=== PATIENT | male | born 1970 | race Two or more races ===

== ENCOUNTER 2019-03-07 14:41 | Emergency (ER) | payer OTHER ==
[~2019-03-07] VITALS: Ht 170.2 cm; Wt 147.4 kg
[2019-03-07 14:56] VITALS: BP 156/90
--- NOTE | 2019-03-07 15:00 | NUR ---
ED Nurse Note: pt resting in room on monitor. states rt. arm pain without injury x 2 days. good cms distally. lungs cta. denies cp, n/v. pt uses O2 NC at home, doesnt state how many liters.
[2019-03-07] MEDS ORDERED: ASPIRIN81 MG ORAL (15:03)
[2019-03-07] MEDS ORDERED: ELIQUIS5 MG PO (15:03)
[2019-03-07] MEDS ORDERED: FUROSEMIDE80 M1 ORAL (15:03)
[2019-03-07] MEDS ORDERED: ATORVASTATIN CA40 MG ORAL (15:03)
[2019-03-07] MEDS ORDERED: CARVEDILOL25 MG ORAL (15:03)
[2019-03-07] MEDS ORDERED: GABAPENTIN300 MG ORAL (15:03)
[2019-03-07] MEDS ORDERED: AMLODIPINE BESY10 MG ORAL (15:03)
[2019-03-07] MEDS ORDERED: HYDRALAZINE HCL25 M1 ORAL (15:05)
[2019-03-07] MEDS ORDERED: PRILOSEC OTC20 MG ORAL (15:05)
[2019-03-07] MEDS ORDERED: POTASSIUM CHLO20 ME2 ORAL (15:05)
[2019-03-07] MEDS ORDERED: Methocarbamol 750mg tab ORAL ONE (15:15)
[2019-03-07] MEDS ORDERED: Ketorolac 30mg Inj IM ONE (15:15)
[2019-03-07] MEDS ORDERED: HYDROcodone/Acetamin 5/325 tab ORAL ONE (15:15)
[2019-03-07] MEDS ORDERED: ROBAXIN-750750 MG PO (15:43)
[2019-03-07] MEDS ORDERED: NORCO 5-325 TA1 EACH ORAL (15:43)
[2019-03-07] MEDS ORDERED: LIDODERM700 M1 TOPIC (15:43)
--- NOTE | 2019-03-07 16:14 | NUR ---
ED Nurse Note: pt awaiting further dispo. meds given for discomfort. tolerates O2 NC at 4L. md aware pt states left shoulder area pain and lidoderm patch applied to area. speaks full sentences easliy without dyspnea
--- NOTE | 2019-03-07 16:22 | NUR ---
ED Nurse Note: pt reeval by md. no new orders.
--- NOTE | 2019-03-07 16:45 | Emergency Room Report ---
History of Present Illness General Chief Complaint: General Complaint Source: Patient Present Illness HPI 48-year-old male presents ED for evaluation. Brought in by EMS from home complaining of lower back pain and left shoulder pain. Started a few days ago. Denies any fall or injury. States he has had this pain in the past. States his pain medications are not helping at this time. Pain is dull, 10 out of 10, nonradiating. Denies chest pain or shortness of breath. Is on home oxygen. History of CHF and COPD. States his symptoms are at baseline. No other aggravating relieving factors. Denies any other associated symptoms Allergies: Coded Allergies: No Known Allergies (Unverified , 03/07/19) Patient History Past Medical History: HTN, CHF, COPD Past Surgical History: none Pertinent Family History: none Social History: Denies: smoking, alcohol use, drug use Immunizations: UTD Reviewed Nursing Documentation: PMH: Agreed; PSxH: Agreed Nursing Documentation-PMH Hx Cardiac Problems: Yes Hx Hypertension: Yes Hx COPD: Yes Review of Systems All Other Systems: negative except mentioned in HPI Physical Exam Vital Signs Date Time Temp Pulse Resp B/P (MAP) Pulse Ox O2 Delivery O2 Flow Rate FiO2 03/07/19 14:42 99.0 72 16 150/90 (110) 92 Nasal Cannula 2.0 Sp02 EP Interpretation: reviewed, normal General Appearance: no apparent distress, alert, GCS 15, non-toxic, obese Head: normocephalic, atraumatic Eyes: bilateral eye normal inspection, bilateral eye PERRL ENT: hearing grossly normal, normal pharynx, no angioedema, normal voice Neck: full range of motion, supple/symm/no masses Respiratory: chest non-tender, lungs clear, normal breath sounds, speaking full sentences Cardiovascular #1: regular rate, rhythm, no edema Cardiovascular #2: 2+ carotid (R), 2+ carotid (L), 2+ radial (R), 2+ radial (L) , 2+ dorsalis pedis (R), 2+ dorsalis pedis (L) Gastrointestinal: normal bowel sounds, non tender, soft, non-distended, no guarding, no rebound Rectal: deferred Genitourinary: normal inspection, no CVA tenderness, no vertebral tenderness Musculoskeletal: gait/station normal, normal range of motion, tender - paraspinal lumbar tenderness Neurologic: alert, oriented x3, responsive, motor strength/tone normal, sensory intact, speech normal Psychiatric: judgement/insight normal, memory normal, mood/affect normal, no suicidal/homicidal ideation Reflexes: 3+ bicep (R), 3+ bicep (L), 3+ tricep (R), 3+ tricep (L), 3+ knee (R) , 3+ knee (L) Skin: no rash Lymphatic: no adenopathy Medical Decision Making Diagnostic Impression: Primary Impression: Lower back pain Qualified Codes: M54.5 - Low back pain; G89.29 - Other chronic pain ER Course Hospital Course 69-year-old male presents ED complaining of lower back pain. No evidence of trauma Differential diagnoses include: pyelonephritis, kidney stone, muscle strain, Lspine fracture Clinical course Patient placed on stretcher. After initial history, physical exam reveals obese male in no acute distress. there is no vertebral body tenderness. paraspinal lumbar tenderness. some shoulder pain but full ROM noted i ordered toradol, robaxin, lidoderm, norco in ED with pain improved patient is resting comfortably in ED on baseline oxygen with stable viatls. we will discharge to home with transport (patient requires O2). we will provide PMD referrals Diagnosis - lower back pain Stable and discharged to home with prescription for Motrin, Noroc, robaxin, lidoderm. Followup with PMD. Return to ED if symptoms recur or worsen Last Vital Signs Date Time Temp Pulse Resp B/P (MAP) Pulse Ox O2 Delivery O2 Flow Rate FiO2 03/07/19 15:00 73 22 Nasal Cannula 4.0 03/07/19 14:56 98.5 156/90 94 Status: improved Disposition: HOME, SELF-CARE Condition: Stable Scripts Lidocaine Patch* (Lidoderm Patch*) 1 Each Adh..patch 1 PATCH TOPIC DAILY, #7 PATCH 0 Refills Patch(es) may remain in place for up to 12 hours in any 24-hour period. Prov: Geraldo Penaloza MD 03/07/19 Methocarbamol* (ROBAXIN-750*) 750 Mg Tablet 750 MG PO TID, #21 TAB 0 Refills Prov: Geraldo Penaloza MD 03/07/19 Hydrocodone Bit/Acetaminophen 5-325* (NORCO 5-325*) 1 Each Tablet 1 TAB ORAL Q6H PRN for For Pain for 3 Days, #12 TAB 0 Refills Prov: Geraldo Penaloza MD 03/07/19 Referrals: [facility] Patient Instructions: Chronic Back Pain Geraldo Penaloza MD Mar 07, 2019 16:45
--- NOTE | 2019-03-07 17:09 | NUR ---
ED Nurse Note: pt sleeping with even resp. transport back home eta [id number]
--- NOTE | 2019-03-07 18:00 | NUR ---
ED Nurse Note: pt aware of plan to dc home with transportation eta [id number]. pt discussing plan with md and states he doesnt want to be dc home. explanations given by md and plan is unchanged. charge entry radha aware.
[2019-03-07 19:00] VITALS: BP 133/90
[2019-03-07] MEDS ORDERED: Furosemide 40mg tab ORAL ONE (19:15)
[2019-03-07 19:30] VITALS: BP 133/90
--- NOTE | 2019-03-07 19:30 | NUR ---
ER DISCHARGE NOTE: Patient is cleared to be discharged per ERMD, pt is aox4, on room air, with stable vital signs. pt was given dc and prescription instructions, pt was able to verbalize understanding, pt id band and iv site removed without complications. REPORT GIVEN TO [facility]. BELONGIGNS LEFT WITH PATIENT.
== END 2019-03-07 19:30 | disposition home or self-care (01) ==
LOC: EDBD 14:41 → EMR 15:00
DX: M54.5 Low back pain (principal); G89.29 Other chronic pain; J44.9 Chronic obstructive pulmonary disease, unspecified; I11.0 Hypertensive heart disease with heart failure; I50.9 Heart failure, unspecified; Z99.81 Dependence on supplemental oxygen
CPT/HCPCS: 96372; J1885; Z7502; 99283

== ENCOUNTER 2019-04-05 18:58 | Inpatient (IN) | payer OTHER ==
[~2019-04-05] VITALS: Ht 177.8 cm; Wt 186.4 kg
[~2019-04-05 18:58] MED LIST: AMLODIPINE BESY10 MG ORAL; ASPIRIN81 MG ORAL; ATORVASTATIN CA40 MG ORAL; CARVEDILOL25 MG ORAL; ELIQUIS5 MG PO; FUROSEMIDE80 M1 ORAL; GABAPENTIN300 MG ORAL; HYDRALAZINE HCL25 M1 ORAL; LIDODERM700 M1 TOPIC; NORCO 5-325 TA1 EACH ORAL; POTASSIUM CHLO20 ME2 ORAL; PRILOSEC OTC20 MG ORAL; ROBAXIN-750750 MG PO
--- NOTE | 2019-04-05 19:00 | NUR ---
ED Nurse Note: walk-in patient with complaints of body aches x three days. Patient currently placed on building mover, vital signs stable although systolic is elevated. Will inform CLAUDIA.
[2019-04-05 19:02] VITALS: BP 191/103
--- NOTE | 2019-04-05 19:12 | Emergency Room Report ---
History of Present Illness General Chief Complaint: Flu Like Symptoms Source: EMS Present Illness HPI Disclaimer: Please note that this report is being documented using [employer] technology. This can lead to erroneous entry secondary to incorrect interpretation by the dictating instrument. HPI: 48-year-old male history of obesity and CHF presents for evaluation of chest pain, shortness of breath, sore throat and ear pain. Symptoms began 3 to 4 days ago. He notes bilateral ear fullness and decreased hearing without effusion. He reports subjective fevers and chills as well as a sore throat and chest discomfort. He reports some pressure over the chest and some difficulty breathing. Denies cough or sputum production. Denies vomiting or diarrhea. Did not receive a flu shot this year. Denies lower extremity edema. Has been compliant with his medications otherwise. PMH: Obesity, CHF PSH: Reviewed Allergies: Denies Social Hx: Non-smoker Allergies: Coded Allergies: RIVAROXABAN (Verified Allergy, Unknown, 04/05/19) Nursing Documentation-PMH Past Medical History: No History, Except For Hx Hypertension: Yes Hx COPD: Yes Hx Diabetes: Yes Review of Systems All Other Systems: negative except mentioned in HPI Physical Exam Vital Signs Date Time Temp Pulse Resp B/P (MAP) Pulse Ox O2 Delivery O2 Flow Rate FiO2 04/05/19 18:55 98.8 96 16 191/103 (132) 96 Room Air General: Awake and alert, no acute distress HEENT: NC/AT. EOMI. tympanic membranes are deeply erythematous though nonbulging , no effusion. External canals show no effusion or edema. Pharynx is erythematous, uvula midline, no exudates Cardiovascular: RRR. S1 and S2 normal. No murmur appreciated Resp: Normal work of breathing. No cough, wheezing or crackles appreciated Abdomen: Abdomen is soft, nondistended. Nontender Skin: Intact. No abrasions, laceration or rash over the exposed skin MSK: Normal tone and bulk. Moving all extremities. No obvious deformity. Neuro: Awake and alert. Mentating appropriately. Medical Decision Making Diagnostic Impression: Primary Impression: Hypokalemia Additional Impression: CHF (congestive heart failure) ER Course 48-year-old male with history of obesity and CHF presents for evaluation of 4 days URI symptoms and some shortness of breath with chest pain. Differential includes was not limited to otitis media, pharyngitis, viral syndrome, influenza , Laboratory Tests Test 04/05/19 19:10 White Blood Count 10.6 K/UL (4.8-10.8) Red Blood Count 5.30 M/UL (4.70-6.10) Hemoglobin 13.4 G/DL (14.2-18.0) L Hematocrit 41.2 % (42.0-52.0) L Mean Corpuscular Volume 78 FL (80-99) L Mean Corpuscular Hemoglobin 25.4 PG (27.0-31.0) L Mean Corpuscular Hemoglobin Concent 32.7 G/DL (32.0-36.0) Red Cell Distribution Width 13.6 % (11.6-14.8) Platelet Count 237 K/UL (150-450) Mean Platelet Volume 8.3 FL (6.5-10.1) Neutrophils (%) (Auto) 72.0 % (45.0-75.0) Lymphocytes (%) (Auto) 18.3 % (20.0-45.0) L Monocytes (%) (Auto) 5.7 % (1.0-10.0) Eosinophils (%) (Auto) 2.7 % (0.0-3.0) Basophils (%) (Auto) 1.3 % (0.0-2.0) Sodium Level 147 MMOL/L (136-145) H Potassium Level 2.9 MMOL/L (3.5-5.1) L Chloride Level 104 MMOL/L (98-107) Carbon Dioxide Level 40 MMOL/L (21-32) H Anion Gap 3 mmol/L (5-15) L Blood Urea Nitrogen 9 mg/dL (7-18) Creatinine 1.1 MG/DL (0.55-1.30) Estimate Glomerular Filtration Rate > 60 mL/min (>60) Glucose Level 102 MG/DL (74-106) Calcium Level 8.6 MG/DL (8.5-10.1) Total Bilirubin 0.8 MG/DL (0.2-1.0) Aspartate Amino Transferase (AST) 16 U/L (15-37) Alanine Aminotransferase (ALT) 17 U/L (12-78) Alkaline Phosphatase 74 U/L (46-116) Troponin I 0.021 ng/mL (0.000-0.056) Pro-B-Type Natriuretic Peptide 932 pg/mL (0-125) H Total Protein 7.0 G/DL (6.4-8.2) Albumin 3.6 G/DL (3.4-5.0) Globulin 3.4 g/dL Albumin/Globulin Ratio 1.1 (1.0-2.7) EKG Diagnostic Results EKG Time: 19:44 Rate: normal Rhythm: NSR ST Segments: no acute changes Other Impression Sinus rhythm with PACs. No ST segment changes. Normal intervals Rhythm Strip Diag. Results Rhythm Strip Time: 19:44 EP Interpretation: yes Rate: 90s Rhythm: other - This rhythm with PACs Chest X-Ray Diagnostic Results Chest X-Ray Diagnostic Results : Chest X-Ray Ordered: Yes # of Views/Limited/Complete: 1 View Indication: Shortness of Breath Interpretation: no consolidation, other - Bilateral pulmonary congestion, questionable effusions. No obvious consolidation. Impression: Other - Pulmonary congestion Electronically Signed by: Electronically signed by Dr. Manuel Daniels Reevaluation Time: 21:38 Last Vital Signs Date Time Temp Pulse Resp B/P (MAP) Pulse Ox O2 Delivery O2 Flow Rate FiO2 04/05/19 18:55 98.8 96 16 191/103 (132) 96 Room Air Reevaluation Impression Labs show normal white count without shift. Potassium was low at 2.9, troponin within normal limits. Potassium repletion both IV and oral are ordered. Peptide elevated at 932. No obvious infiltrate on chest x-ray. Flu swabs are still pending. The patient remained tachypneic with increased work of breathing. He has been intermittently tachycardic in the emergency department. He will require admission for further monitoring of his breathing status. He remains on nasal cannula. Stable for transfer to telemetry floor Disposition: ADMITTED INPATIENT Condition: Serious Manuel Daniels MD Apr 05, 2019 19:12
[2019-04-05 19:26] LABS: BASOPHILS % (AUTO) 1.3 % (0.0-2.0); EOSINOPHILS % (AUTO) 2.7 % (0.0-3.0); HEMATOCRIT 41.2 % (42.0-52.0); HEMOGLOBIN 13.4 G/DL (14.2-18.0); LYMPHOCYTES % (AUTO) 18.3 % (20.0-45.0); MEAN CORPUSCULAR VOLUME 78 FL (80-99); MONOCYTES % (AUTO) 5.7 % (1.0-10.0); PLATELET COUNT 237 K/UL (150-450); RED CELL DISTRIBUTION WIDTH 13.6 % (11.6-14.8); WHITE BLOOD COUNT 10.6 K/UL (4.8-10.8)
[2019-04-05 19:47] VITALS: BP 170/95
[2019-04-05 19:56] LABS: ALANINE AMINOTRANSFERASE 17 U/L (12-78); ALBUMIN 3.6 G/DL (3.4-5.0); ALBUMIN/GLOBULIN RATIO 1.1 (1.0-2.7); ALKALINE PHOSPHATASE 74 U/L (46-116); ASPARTATE AMINO TRANSFERASE 16 U/L (15-37); BILIRUBIN,TOTAL 0.8 MG/DL (0.2-1.0); BLOOD UREA NITROGEN 9 mg/dL (7-18); CALCIUM 8.6 MG/DL (8.5-10.1); CARBON DIOXIDE 40 MMOL/L (21-32); CREATININE 1.1 MG/DL (0.55-1.30); SODIUM 147 MMOL/L (136-145)
[2019-04-05] MEDS ORDERED: Ketorolac 30mg Inj IV ONE (20:00)
[2019-04-05 20:11] LABS: ANION GAP 3 mmol/L (5-15); CHLORIDE 104 MMOL/L (98-107); POTASSIUM 2.9 MMOL/L (3.5-5.1)
--- NOTE | 2019-04-05 20:26 | NUR ---
ED Nurse Note: Patient brought in by ambulance.
[2019-04-05] MEDS ORDERED: HYDROcodone/Acetamin 5/325 tab ORAL ONE (20:45)
--- NOTE | 2019-04-05 20:59 | NUR ---
ED Nurse Note: Ptient request for juice accomodated after accucheck. will continue to monitor. BGS- 95
--- NOTE | 2019-04-05 23:40 | NUR ---
ED Nurse Note: Per patient request, sandwich provided. Room not ready for patient transport.
[2019-04-06] VITALS (7 sets, daily range): BP systolic 122–165; BP diastolic 79–103
--- NOTE | 2019-04-06 00:35 | NUR ---
NURSE NOTES: Pt received from KEESHA Hernadez alert and oriented x4 with no acute s/s of distress noted. IV site asymptomatic and patent on R ac 20g, saline lock. On 2L NC, saturating at 99% with no acute s/s of resp distress noted. Bed in lowest position, belongings and call light within reach. No wounds noted upon assessment. Belongings with patient upon administration.
--- NOTE | 2019-04-06 00:55 | NUR ---
NURSE NOTES: Pt c/o of 01/11 generalized body pain, left message with Dr. De Jesus. Currently awaiting call back.
[2019-04-06] MEDS: Albuterol/Ipratropium 3ml neb HHN SCH ×6 (00:56→21:16)
[2019-04-06] MEDS ORDERED: ASPIRIN81 MG ORAL (01:32)
[2019-04-06] MEDS ORDERED: HYDROcodone/Acetamin 5/325 tab ORAL PRN (01:45)
[2019-04-06] MEDS ORDERED: HYDROcodone/Acetamin 10/325 tab ORAL PRN (01:45)
[2019-04-06] MEDS ORDERED: HydrALAZINE 25mg tab ORAL PRN (02:15)
--- NOTE | 2019-04-06 02:21 | NUR ---
NURSE NOTES: Received orders from Dr. Wise: - Kdur 20 mEq PO daily - Potassium Chloride IV 20 meq IV now - continue: LAsix 80 mg PO daily, amlodipine 10 mg PO daily, atorvastatin 40 mg - Addendum: 04/06/19 at 0354 by Abner Wall RN - continue: Gabapentin 600 mg PO daily, aspirin 81 mg PO daily. - Pt verbalized that he remembers taking lisinopril and hydralazine but does not remember dosages. Endorsed to Dr. Wise who stated to start pt on lisinopril 10 mg Po daily and hydralazine 25 mg PO PRN q6h for sBP above 180 - 2decho - Zofran 4 gm IVP q4h for nausea and vomiting PRN - Doxycycline 100 mg BID PO - Solumedrol 40 mg IVP q8h - Bipap PRN, Titrate O2 between 90-96% - Duonebs q4h scheduled. Will carry out orders.
[2019-04-06] MEDS: Solu-MEDROL 40mg Inj IVP SCH ×3 (06:26→21:39)
[2019-04-06] MEDS ORDERED: Sodium Chloride for KCL Premix x 2hrs IV SCH (07:00)
--- NOTE | 2019-04-06 07:20 | NUR ---
NURSE NOTES: Report received from KEESHA Levine. Pt. AOx4. In 2L NC. Denies SOB. IV running potassium, site intact. Bed on lowest position, side rails upx2, brakes engaged. Call light within easy reach.
--- NOTE | 2019-04-06 07:20 | NUR ---
HAND-OFF: Report given to KEESHA Plascencia. Plan of care endorsed.
--- NOTE | 2019-04-06 08:02 | Pulmonology Progress Note ---
Assessment/Plan Assessment/Plan Pulmonary Consultation [facility] The patient is a 48-year-old man with history of obesity and Congestive Heart Failure, admitted with chest pain, shortness of breath, fevera and chills as well as sore throat and ear pain for 3 to 4 days ago. Denies cough or sputum production, vomiting or diarrhea, no Lower extremity swelling. Past Medical History: Obesity, Congestive Heart Failure, Chronic Obstructive Pulmonary Disease, Diabetes, Hypertension Allergies: RIVAROXABAN All Other Systems: negative except mentioned in HPI Physical Exam Vital Signs Noted Date Time Temp Pulse Resp B/P (MAP) Pulse Ox O2 Delivery O2 Flow Rate FiO2 04/05/19 18:55 98.8 96 16 191/103 (132) 96 Room Air General: Awake and alert, no acute distress HEENT: NC/AT. EOMI. tympanic membranes are erythematous, Pharynx is erythematous , no exudates, moist mm Cardiovascular: RRR. S1 and S2 normal. No murmur appreciated. Mild edema noted Resp: Normal work of breathing. Mild Wheeze. Abdomen: Abdomen is soft, nondistended. Nontender Skin: Intact. No abrasions, laceration or rash over the exposed skin Extremities: Normal tone and bulk. Moving all extremities. No obvious deformity. Neuro: Awake and alert. Mentating appropriately. 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 Laboratory Tests Test 04/05/19 19:10 White Blood Count 10.6 K/UL (4.8-10.8) Red Blood Count 5.30 M/UL (4.70-6.10) Hemoglobin 13.4 G/DL (14.2-18.0) L Hematocrit 41.2 % (42.0-52.0) L Mean Corpuscular Volume 78 FL (80-99) L Mean Corpuscular Hemoglobin 25.4 PG (27.0-31.0) L Mean Corpuscular Hemoglobin Concent 32.7 G/DL (32.0-36.0) Red Cell Distribution Width 13.6 % (11.6-14.8) Platelet Count 237 K/UL (150-450) Mean Platelet Volume 8.3 FL (6.5-10.1) Neutrophils (%) (Auto) 72.0 % (45.0-75.0) Lymphocytes (%) (Auto) 18.3 % (20.0-45.0) L Monocytes (%) (Auto) 5.7 % (1.0-10.0) Eosinophils (%) (Auto) 2.7 % (0.0-3.0) Basophils (%) (Auto) 1.3 % (0.0-2.0) Sodium Level 147 MMOL/L (136-145) H Potassium Level 2.9 MMOL/L (3.5-5.1) L Chloride Level 104 MMOL/L (98-107) Carbon Dioxide Level 40 MMOL/L (21-32) H Anion Gap 3 mmol/L (5-15) L Blood Urea Nitrogen 9 mg/dL (7-18) Creatinine 1.1 MG/DL (0.55-1.30) Estimate Glomerular Filtration Rate > 60 mL/min (>60) Glucose Level 102 MG/DL (74-106) Calcium Level 8.6 MG/DL (8.5-10.1) Total Bilirubin 0.8 MG/DL (0.2-1.0) Aspartate Amino Transferase (AST) 16 U/L (15-37) Alanine Aminotransferase (ALT) 17 U/L (12-78) Alkaline Phosphatase 74 U/L (46-116) Troponin I 0.021 ng/mL (0.000-0.056) Pro-B-Type Natriuretic Peptide 932 pg/mL (0-125) H Total Protein 7.0 G/DL (6.4-8.2) Albumin 3.6 G/DL (3.4-5.0) Globulin 3.4 g/dL Albumin/Globulin Ratio 1.1 (1.0-2.7) EKG: Sinus rhythm with PACs. No ST segment changes. Normal intervals CXR: no consolidation, other - bilateral pulmonary congestion, questionable effusions. No obvious consolidation Subjective ROS Limited/Unobtainable: No Allergies: Coded Allergies: RIVAROXABAN (Verified Allergy, Unknown, 04/05/19) Objective Last 24 Hour Vital Signs Date Time Temp Pulse Resp B/P (MAP) Pulse Ox O2 Delivery O2 Flow Rate FiO2 04/06/19 05:54 89 21 97 Facial 30 04/06/19 04:00 98.0 83 20 131/83 (99) 95 04/06/19 04:00 2.0 04/06/19 04:00 86 04/06/19 03:07 96 20 98 Nasal Cannula 2.0 28 04/06/19 03:05 94 20 99 Nasal Cannula 2.0 28 96 20 98 04/06/19 00:57 Room Air 2.0 04/06/19 00:51 99 04/06/19 00:35 98.4 92 19 165/103 (123) 99 04/06/19 00:30 98.8 95 22 134/87 97 Nasal Cannula 3.0 04/06/19 00:22 98.8 95 22 134/87 97 Nasal Cannula 3.0 04/05/19 21:19 98.8 04/05/19 20:35 98.8 04/05/19 19:47 98.8 95 21 170/95 96 Nasal Cannula 2.0 04/05/19 19:02 98.8 96 16 191/103 96 Room Air 04/05/19 19:02 96 16 Room Air 04/05/19 18:55 98.8 96 16 191/103 (132) 96 Room Air Intake and Output 04/05/19 04/06/19 19:00 07:00 Intake Total 0 ml Balance 0 ml Intake Oral 0 ml # Voids 1 Microbiology Date/Time Source Procedure Growth Status 04/05/19 22:27 Nasal Nares - Final Complete 04/05/19 22:27 Nasal Nares - Final Complete 04/05/19 21:34 Rectum Received Laboratory Tests 04/05/19 19:10: White Blood Count 10.6, Red Blood Count 5.30, Hemoglobin 13.4L, Hematocrit 41.2L , Mean Corpuscular Volume 78L, Mean Corpuscular Hemoglobin 25.4L, Mean Corpuscular Hemoglobin Concent 32.7, Red Cell Distribution Width 13.6, Platelet Count 237, Mean Platelet Volume 8.3, Neutrophils (%) (Auto) 72.0, Lymphocytes (% ) (Auto) 18.3L, Monocytes (%) (Auto) 5.7, Eosinophils (%) (Auto) 2.7, Basophils (%) (Auto) 1.3, Sodium Level 147H, Potassium Level 2.9L, Chloride Level 104, Carbon Dioxide Level 40H, Anion Gap 3L, Blood Urea Nitrogen 9, Creatinine 1.1, Estimat Glomerular Filtration Rate > 60, Glucose Level 102, Calcium Level 8.6, Total Bilirubin 0.8, Aspartate Amino Transf (AST/SGOT) 16, Alanine Aminotransferase (ALT/SGPT) 17, Alkaline Phosphatase 74, Troponin I 0.021, Pro-B -Type Natriuretic Peptide 932H, Total Protein 7.0, Albumin 3.6, Globulin 3.4, Albumin/Globulin Ratio 1.1 Current Medications Medications (Trade) Dose Ordered Sig/David Route PRN Reason Start Time Stop Time Status Last Admin Dose Admin Acetaminophen (Tylenol) 650 mg Q6H PRN ORAL Mild Pain/Temp > 100.5 04/06/19 01:45 05/06/19 01:44 Acetaminophen/ Hydrocodone Bitart ([place] 10/325) 1 tab EVERY 6 HOURS PRN ORAL Severe Pain (Pain Scale 7-10) 04/06/19 01:45 04/13/19 01:44 04/06/19 01:57 Acetaminophen/ Hydrocodone Bitart ([place] 5/325) 1 tab Q6H PRN ORAL Moderate Pain (Pain Scale 4-6) 04/06/19 01:45 04/13/19 01:44 Albuterol/ Ipratropium (Albuterol/ Ipratropium) 3 ml Q4HRT HHN 04/06/19 03:00 04/11/19 02:59 04/06/19 03:05 Amlodipine Besylate (Norvasc) 10 mg DAILY ORAL 04/06/19 09:00 05/06/19 08:59 Aspirin (ASA) 81 mg DAILY ORAL 04/06/19 09:00 05/06/19 08:59 Atorvastatin Calcium (Lipitor) 40 mg BEDTIME ORAL 04/06/19 21:00 05/06/19 20:59 Doxycycline Monohydrate (Doxycycline Monohydrate) 100 mg BID ONCE ORAL 04/06/19 09:00 04/06/19 09:01 Furosemide (Lasix) 80 mg BID ORAL 04/06/19 09:00 05/06/19 08:59 Furosemide (Lasix) 80 mg BID ORAL 04/06/19 09:00 05/06/19 08:59 Gabapentin (Neurontin) 600 mg BID ORAL 04/06/19 09:00 05/06/19 08:59 Hydralazine HCl (Apresoline) 25 mg Q6HR PRN ORAL For High Blood Pressure 04/06/19 02:15 05/06/19 02:14 Lisinopril (ZestriL) 10 mg DAILY ORAL 04/06/19 09:00 05/06/19 08:59 Methylprednisolone Sodium Succinate (Solu-MEDROL) 40 mg EVERY 8 HOURS IVP 04/06/19 06:00 05/06/19 05:59 04/06/19 06:26 Ondansetron HCl (Zofran) 4 mg Q6H PRN IVP Nausea & Vomiting 04/06/19 02:15 05/06/19 02:14 Potassium Chloride 100 ml @ 100 mls/hr Q1H IVPB 04/06/19 07:00 04/06/19 08:59 Potassium Chloride (K-Dur) 20 meq DAILY ORAL 04/06/19 09:00 05/06/19 08:59 Sodium Chloride 200 ml @ 100 mls/hr Q2H IV 04/06/19 07:00 04/06/19 08:59 Mahesh Wise MD Apr 06, 2019 08:02
[2019-04-06] MEDS ORDERED: Furosemide 80mg tab ORAL SCH ×2 (09:00)
[2019-04-06] MEDS ORDERED: Lisinopril 10mg tab ORAL SCH (09:00)
[2019-04-06] MEDS ORDERED: Doxycycline Monohydrate 100mg ORAL ONE (09:00)
[2019-04-06] MEDS: Aspirin Baby 81mg ORAL SCH (09:05)
[2019-04-06] MEDS ORDERED: Morphine Sulfate 2mg/ml Inj(IV/IM USE ONLY) IVP ONE (09:15)
--- NOTE | 2019-04-06 09:15 | Consultation ---
History of Present Illness General Date patient seen: Apr 06, 2019 Chief Complaint: Present Illness Allergies: Coded Allergies: RIVAROXABAN (Verified Allergy, Unknown, 04/05/19) Medication History Scheduled Amlodipine Besylate* (Amlodipine Besylate*), 10 MG ORAL DAILY, (Reported) Aspirin* (Aspirin*), 81 MG ORAL DAILY, (Reported) Atorvastatin Calcium* (Atorvastatin Calcium*), 40 MG ORAL BEDTIME, (Reported) Furosemide* (Lasix*), 80 MG ORAL BID, (Reported) Gabapentin* (Gabapentin*), 600 MG ORAL BID, (Reported) Discontinued Medications Apixaban (Eliquis), 5 MG PO, (Reported) Discontinued Reason: Therapy completed Aspirin* (Aspirin*), 81 MG ORAL DAILY, (Reported) Discontinued Reason: Therapy completed Carvedilol* (Carvedilol*), 25 MG ORAL EVERY 12 HOURS, (Reported) Discontinued Reason: Therapy completed Hydralazine Hcl* (Hydralazine Hcl*), 25 MG ORAL EVERY 8 HOURS, (Reported) Discontinued Reason: Therapy completed Hydrocodone Bit/Acetaminophen 5-325* ([place] 5-325*), 1 TAB ORAL Q6H PRN for For Pain Discontinued Reason: Therapy completed Lidocaine Patch* (Lidoderm Patch*), 1 PATCH TOPIC DAILY Discontinued Reason: Therapy completed Methocarbamol* (Robaxin-750*), 750 MG PO TID Discontinued Reason: Therapy completed Omeprazole Magnesium (Prilosec Otc), 20 MG ORAL DAILY, (Reported) Discontinued Reason: Therapy completed Potassium Chloride (Potassium Chloride), 20 MEQ ORAL DAILY, (Reported) Discontinued Reason: Therapy completed Patient History Healthcare decision maker Resuscitation status Full Code Advanced Directive on File Physical Exam Last 24 Hour Vital Signs Date Time Temp Pulse Resp B/P (MAP) Pulse Ox O2 Delivery O2 Flow Rate FiO2 04/06/19 08:58 74 161/92 04/06/19 08:57 161/92 04/06/19 08:13 93 20 99 Nasal Cannula 3.0 32 91 22 73 04/06/19 05:54 89 21 97 Facial 30 04/06/19 04:00 98.0 83 20 131/83 (99) 95 04/06/19 04:00 2.0 04/06/19 04:00 86 04/06/19 03:07 96 20 98 Nasal Cannula 2.0 28 04/06/19 03:05 94 20 99 Nasal Cannula 2.0 28 96 20 98 04/06/19 00:57 Room Air 2.0 04/06/19 00:51 99 04/06/19 00:35 98.4 92 19 165/103 (123) 99 04/06/19 00:30 98.8 95 22 134/87 97 Nasal Cannula 3.0 04/06/19 00:22 98.8 95 22 134/87 97 Nasal Cannula 3.0 04/05/19 21:19 98.8 04/05/19 20:35 98.8 04/05/19 19:47 98.8 95 21 170/95 96 Nasal Cannula 2.0 04/05/19 19:02 98.8 96 16 191/103 96 Room Air 04/05/19 19:02 96 16 Room Air 04/05/19 18:55 98.8 96 16 191/103 (132) 96 Room Air Intake and Output 04/05/19 04/06/19 19:00 07:00 Intake Total 0 ml Balance 0 ml Intake Oral 0 ml # Voids 1 Laboratory Tests Test 04/05/19 19:10 White Blood Count 10.6 K/UL (4.8-10.8) Red Blood Count 5.30 M/UL (4.70-6.10) Hemoglobin 13.4 G/DL (14.2-18.0) L Hematocrit 41.2 % (42.0-52.0) L Mean Corpuscular Volume 78 FL (80-99) L Mean Corpuscular Hemoglobin 25.4 PG (27.0-31.0) L Mean Corpuscular Hemoglobin Concent 32.7 G/DL (32.0-36.0) Red Cell Distribution Width 13.6 % (11.6-14.8) Platelet Count 237 K/UL (150-450) Mean Platelet Volume 8.3 FL (6.5-10.1) Neutrophils (%) (Auto) 72.0 % (45.0-75.0) Lymphocytes (%) (Auto) 18.3 % (20.0-45.0) L Monocytes (%) (Auto) 5.7 % (1.0-10.0) Eosinophils (%) (Auto) 2.7 % (0.0-3.0) Basophils (%) (Auto) 1.3 % (0.0-2.0) Sodium Level 147 MMOL/L (136-145) H Potassium Level 2.9 MMOL/L (3.5-5.1) L Chloride Level 104 MMOL/L (98-107) Carbon Dioxide Level 40 MMOL/L (21-32) H Anion Gap 3 mmol/L (5-15) L Blood Urea Nitrogen 9 mg/dL (7-18) Creatinine 1.1 MG/DL (0.55-1.30) Estimat Glomerular Filtration Rate > 60 mL/min (>60) Glucose Level 102 MG/DL (74-106) Calcium Level 8.6 MG/DL (8.5-10.1) Total Bilirubin 0.8 MG/DL (0.2-1.0) Aspartate Amino Transf (AST/SGOT) 16 U/L (15-37) Alanine Aminotransferase (ALT/SGPT) 17 U/L (12-78) Alkaline Phosphatase 74 U/L (46-116) Troponin I 0.021 ng/mL (0.000-0.056) Pro-B-Type Natriuretic Peptide 932 pg/mL (0-125) H Total Protein 7.0 G/DL (6.4-8.2) Albumin 3.6 G/DL (3.4-5.0) Globulin 3.4 g/dL Albumin/Globulin Ratio 1.1 (1.0-2.7) Microbiology Date/Time Source Procedure Growth Status 04/05/19 22:27 Nasal Nares - Final Complete 04/05/19 22:27 Nasal Nares - Final Complete 04/05/19 21:34 Rectum Received Height (Feet): 5 Height (Inches): 10.00 Weight (Pounds): 301 Medications Current Medications Medications (Trade) Dose Ordered Sig/David Route PRN Reason Start Time Stop Time Status Last Admin Dose Admin Acetaminophen (Tylenol) 650 mg Q6H PRN ORAL Mild Pain/Temp > 100.5 04/06/19 01:45 05/06/19 01:44 Acetaminophen/ Hydrocodone Bitart ([place] 10/325) 1 tab EVERY 6 HOURS PRN ORAL Severe Pain (Pain Scale 7-10) 04/06/19 01:45 04/13/19 01:44 04/06/19 01:57 Acetaminophen/ Hydrocodone Bitart ([place] 5/325) 1 tab Q6H PRN ORAL Moderate Pain (Pain Scale 4-6) 04/06/19 01:45 04/13/19 01:44 Albuterol/ Ipratropium (Albuterol/ Ipratropium) 3 ml Q4HRT HHN 04/06/19 03:00 04/11/19 02:59 04/06/19 08:13 Amlodipine Besylate (Norvasc) 10 mg DAILY ORAL 04/06/19 09:00 05/06/19 08:59 04/06/19 08:58 Aspirin (ASA) 81 mg DAILY ORAL 04/06/19 09:00 05/06/19 08:59 04/06/19 09:05 Atorvastatin Calcium (Lipitor) 40 mg BEDTIME ORAL 04/06/19 21:00 05/06/19 20:59 Furosemide (Lasix) 80 mg BID ORAL 04/06/19 09:00 05/06/19 08:59 04/06/19 08:58 Gabapentin (Neurontin) 600 mg BID ORAL 04/06/19 09:00 05/06/19 08:59 04/06/19 08:57 Hydralazine HCl (Apresoline) 25 mg Q6HR PRN ORAL For High Blood Pressure 04/06/19 02:15 05/06/19 02:14 Lisinopril (ZestriL) 10 mg DAILY ORAL 04/06/19 09:00 05/06/19 08:59 04/06/19 08:57 Methylprednisolone Sodium Succinate (Solu-MEDROL) 40 mg EVERY 8 HOURS IVP 04/06/19 06:00 05/06/19 05:59 04/06/19 06:26 Ondansetron HCl (Zofran) 4 mg Q6H PRN IVP Nausea & Vomiting 04/06/19 02:15 05/06/19 02:14 Potassium Chloride (K-Dur) 20 meq DAILY ORAL 04/06/19 09:00 05/06/19 08:59 04/06/19 08:56 Assessment/Plan Assessment/Plan: (1) Lumbar DDD (2) Lumbar Spondylosis (3) Morbid obesity Seen dictated Osito Sultana Apr 06, 2019 09:14
[2019-04-06 10:33] LABS: HEMATOCRIT 40.2 % (42.0-52.0); HEMOGLOBIN 12.8 G/DL (14.2-18.0); MEAN CORPUSCULAR VOLUME 79 FL (80-99); PLATELET COUNT 253 K/UL (150-450); RED BLOOD COUNT 5.07 M/UL (4.70-6.10); RED CELL DISTRIBUTION WIDTH 15.6 % (11.6-14.8)
[2019-04-06 10:46] LABS: ANION GAP 1 mmol/L (5-15); BLOOD UREA NITROGEN 12 mg/dL (7-18); CALCIUM 8.5 MG/DL (8.5-10.1); CARBON DIOXIDE 39 MMOL/L (21-32); CHLORIDE 104 MMOL/L (98-107); CREATININE 1.5 MG/DL (0.55-1.30); POTASSIUM 3.6 MMOL/L (3.5-5.1); SODIUM 144 MMOL/L (136-145)
[2019-04-06 10:50] LABS: ALANINE AMINOTRANSFERASE 19 U/L (12-78); ALBUMIN 3.6 G/DL (3.4-5.0); ALKALINE PHOSPHATASE 73 U/L (46-116); ASPARTATE AMINO TRANSFERASE 14 U/L (15-37); BILIRUBIN,TOTAL 0.6 MG/DL (0.2-1.0); PHOSPHORUS 4.1 MG/DL (2.5-4.9)
--- NOTE | 2019-04-06 10:52 | Diagnostic Imaging Report ---
Indication: Chest pain Comparison: None A single view chest radiograph was obtained. Findings: Pulmonary vascularity and interstitium appear prominent but lung volumes are very low. Heart is also enlarged. The bones are unremarkable. IMPRESSION: Query CHF. Evaluation limited by very low lung volumes
[2019-04-06 11:04] LABS: CHOLESTEROL 183 MG/DL (< 200); GAMMA GLUTAMYL TRANSPEPTIDASE 19 U/L (5-85); HDL CHOLESTEROL 42 MG/DL (40-60); TRIGLYCERIDES 78 MG/DL (30-150)
--- NOTE | 2019-04-06 14:45 | Consultation ---
DATE OF CONSULTATION: 04/06/2019 PAIN MANAGEMENT CONSULTATION CONSULTING PHYSICIAN: Clarisse Stack M.D. REFERRING PHYSICIAN: Brodie De Jesus M.D. PHYSICIAN CONTINUOUS MINING MACHINE COAL MINER: Juana Cornell CHIEF COMPLAINT: Low back pain. HISTORY OF PRESENT ILLNESS: This is a 48-year-old male, who is being seen on the telemetry floor of [facility] for initial pain management consultation. The patient was admitted under the care of Dr. De Jesus due to congestive heart failure and hypokalemia. Complaining of low back pain, which is chronic. It is a constant pain that he rates a 10/10 at its worst. Complaining the pain is aching, throbbing pain in his back with radiation throughout his back. The pain is worse with movement and is reduced with medication. He states that he takes Mobile as an outpatient. Chart was reviewed and showing the patient received Tylenol No. 3 and Mobile 5/325 mg tablets as an outpatient. However at this time, was given one-time dose of Toradol 30 mg IV with minimal pain relief as well as a one-time dose of Mobile 5 mg tablet, which the patient reports has not been effective and then received a one-time dose of Mobile 10, which he says as well was not effective at this time. He is in severe pain at this time. Due to this, we will give him one-time dose of morphine 2 mg IV and then change the Mobile to 10/325 one tablet every 4 hours from every 6 hours as needed for severe pain. The patient seems to understand and he has no other pain complaints at this time. PAST MEDICAL HISTORY: Morbid obesity, hypertension, CHF, high cholesterol. PAST SURGICAL HISTORY: Denies. SOCIAL HISTORY: Denies smoking tobacco, drinking alcohol, or drug abuse. ALLERGIES: Xarelto. MEDICATIONS: Mobile, Neurontin, amlodipine, aspirin, atorvastatin, Lasix. REVIEW OF SYSTEMS: Denies rash, fever, chills at this time, sweating, dizziness, drowsiness, blurred vision, sore throat, change in weight. No nausea, vomiting, diarrhea, or blood in the stool or urine. No dysuria. He is complaining of low back pain. PHYSICAL EXAMINATION: GENERAL: Alert, awake, and oriented. VITAL SIGNS: Blood pressure 161/92, heart rate 74, oxygen saturation is 99%, respiratory rate is 20, temperature is 98 degrees Fahrenheit. HEENT: PERRLA. NECK: Range of motion is full in all directions. No tenderness to paracervical muscles. No adenopathy. LUNGS: Decreased breath sounds bilaterally. HEART: S1 and S2 regular. ABDOMEN: Obese. BACK: Range of motion is decreased in flexion, extension. EXTREMITIES: Upper extremity motion is decreased due to the patient's condition. No cyanosis. No clubbing. Sensory is reduced. Reflexes are not obtainable. No adenopathy. ASSESSMENT AND PLAN: This is a 48-year-old male with lumbar degenerative disk disease, lumbar spondylosis, morbid obesity. The patient will be given a one-time dose of morphine 2 mg IV. Due to the severity of his pain at this time, we will change the Mobile to 10/325 one tablet every 4 hours as needed for severe pain. Parameters will be set to hold opiates for oversedation or lethargy or systolic blood pressure below 90 or diastolic blood pressure below 60 or respiratory rate below 12 or oxygen saturation below 92%. The patient seems to understand. The patient was discussed with Dr. Stack and he concurred. We will follow the patient. Thank you very much for the courtesy of this consultation. Clarisse Stack M.D. BEAU Cornell DR: LAINEY JOB#: [id number] CC: NOEMY
--- NOTE | 2019-04-06 14:51 | NUR ---
CASE MANAGEMENT: INITIAL REVIEW 48YR OLD MALE BIBA FROM HOME CC: FLU LIKE SYMPTOMS ; LOW BACK PAIN SI: CHF . HYPOKALEMIA 98.8 96 16 191/103 96% ON RA NA 147 K+2.9 CO2 40 BNP 932 IS: IV KCL @50ML/HR IV TORADOL X1 IV LASIX X1 K-DUR X1 NORCO PO X1 \: 2E TELE UNIT DCP: HOME WHEN MEDICALLY CLEAR PLAN: CXR ECHO START ON BIPAP CASE MANAGEMENT: REVIEW 04/06/19 SI: CHF . HYPOKALEMIA 98.8 85 20 159/89 93% ON 2L NC CO2 39 CREAT 1.5 H/H 12.8/40.2 IS: IV KCL @100ML/HR X BAGS IVF NS BOLUS X1 K-DUR PO QD X1 IV SOLU-MEDROL Q8HR LASIX BID NORVASC PO QD ALBUTEROL HHN Q4HR GABAPENTIN PO BID ASA PO QD \: 2E TELE UNIT DCP: HOME WHEN MEDICALLY CLEAR PLAN: CXR ECHO START ON BIPAP
[2019-04-06] MEDS: HYDROcodone/Acetamin 10/325 tab ORAL PRN ×2 (15:06→21:51)
--- NOTE | 2019-04-06 15:51 | Cardiology Report ---
APPROVED REPORT EXAM: Two-dimensional and M-mode echocardiogram with Doppler and color Doppler. INDICATION Congestive Heart Failure M-Mode DIMENSIONS IVSd2.2 (0.7-1.1cm)Left Atrium (MM)5.1 (1.6-4.0cm) LVDd4.8 (3.5-5.6cm)Aortic Root3.7 (2.0-3.7cm) PWd1.6 (0.7-1.1cm)Aortic Cusp Exc.1.9 (1.5-2.0cm) IVSs2.9 cm LVDs3.0 (2.5-4.0cm) PWs1.9 cm Technically difficult study due to pt's body habitus, apical images obtained from subcostal area. Study quality precludes accurate assessment of regional wall motion. Normal left ventricular chamber size, systolic function to extent visualized. Left ventricular ejection fraction appears to be grossly normal . Mild left ventricular hypertrophy. All other cardiac chamber sizes are within normal limits. Thickened mitral valve leaflets with normal excursion. Mitral annulus and aortic root calcification. Normal pulmonic valve structure. Normal tricuspid valve structure. IVC dilated at 2.7 cm without physiologic collapse suggestive of increased RA pressure. A color flow and spectral Doppler study was performed and revealed: No aortic insufficiency. Mild mitral regurgitation. Mitral inflow indicates normal left ventricular diastolic function is not diagnostic due to cardiac angle . Tricuspid systolic velocities suggests peak right ventricular systolic pressure of 15 mmHg. Mild pulmonic regurgitation present.
--- NOTE | 2019-04-06 16:15 | Cardiology Report ---
APPROVED REPORT EKG Measurement Heart [id number] Sinus tachycardia with frequent, and consecutive premature ventricular complexes Moderate voltage criteria for LVH, may be normal variant Abnormal QRS-T angle, consider primary T wave abnormality Prolonged QT Abnormal ECG
--- NOTE | 2019-04-06 17:25 | Cardiac Electrophysiology PN ---
Subjective Subjective [id number] Objective Last 24 Hour Vital Signs Date Time Temp Pulse Resp B/P (MAP) Pulse Ox O2 Delivery O2 Flow Rate FiO2 04/06/19 16:00 2.0 04/06/19 16:00 97.7 102 20 140/98 (112) 93 04/06/19 16:00 110 04/06/19 15:36 98.5 04/06/19 15:17 84 22 99 Nasal Cannula 3.0 32 81 22 95 04/06/19 12:00 2.0 04/06/19 12:00 98.5 92 20 142/95 (111) 93 04/06/19 12:00 99 04/06/19 11:26 80 22 98 Nasal Cannula 3.0 32 77 22 96 04/06/19 09:00 Nasal Cannula 2.0 04/06/19 08:58 74 161/92 04/06/19 08:57 161/92 04/06/19 08:13 93 20 99 Nasal Cannula 3.0 32 73 22 93 04/06/19 08:00 2.0 04/06/19 08:00 85 04/06/19 08:00 98.8 74 20 159/89 (112) 93 04/06/19 05:54 89 21 97 Facial 30 04/06/19 04:00 98.0 83 20 131/83 (99) 95 04/06/19 04:00 2.0 04/06/19 04:00 86 04/06/19 03:07 96 20 98 Nasal Cannula 2.0 28 04/06/19 03:05 94 20 99 Nasal Cannula 2.0 28 96 20 98 04/06/19 00:57 Room Air 2.0 04/06/19 00:51 99 04/06/19 00:35 98.4 92 19 165/103 (123) 99 04/06/19 00:30 98.8 95 22 134/87 97 Nasal Cannula 3.0 04/06/19 00:22 98.8 95 22 134/87 97 Nasal Cannula 3.0 04/05/19 21:19 98.8 04/05/19 20:35 98.8 04/05/19 19:47 98.8 95 21 170/95 96 Nasal Cannula 2.0 04/05/19 19:02 98.8 96 16 191/103 96 Room Air 04/05/19 19:02 96 16 Room Air 04/05/19 18:55 98.8 96 16 191/103 (132) 96 Room Air Intake and Output 04/05/19 04/06/19 18:59 06:59 Intake Total 0 ml Balance 0 ml Intake Oral 0 ml # Voids 1 Laboratory Tests Test 04/05/19 19:10 04/06/19 10:10 White Blood Count 10.6 K/UL (4.8-10.8) 10.0 K/UL (4.8-10.8) Red Blood Count 5.30 M/UL (4.70-6.10) 5.07 M/UL (4.70-6.10) Hemoglobin 13.4 G/DL (14.2-18.0) L 12.8 G/DL (14.2-18.0) L Hematocrit 41.2 % (42.0-52.0) L 40.2 % (42.0-52.0) L Mean Corpuscular Volume 78 FL (80-99) L 79 FL (80-99) L Mean Corpuscular Hemoglobin 25.4 PG (27.0-31.0) L 25.2 PG (27.0-31.0) L Mean Corpuscular Hemoglobin Concent 32.7 G/DL (32.0-36.0) 31.7 G/DL (32.0-36.0) L Red Cell Distribution Width 13.6 % (11.6-14.8) 15.6 % (11.6-14.8) H Platelet Count 237 K/UL (150-450) 253 K/UL (150-450) Mean Platelet Volume 8.3 FL (6.5-10.1) 8.9 FL (6.5-10.1) Neutrophils (%) (Auto) 72.0 % (45.0-75.0) % (45.0-75.0) Lymphocytes (%) (Auto) 18.3 % (20.0-45.0) L % (20.0-45.0) Monocytes (%) (Auto) 5.7 % (1.0-10.0) % (1.0-10.0) Eosinophils (%) (Auto) 2.7 % (0.0-3.0) % (0.0-3.0) Basophils (%) (Auto) 1.3 % (0.0-2.0) % (0.0-2.0) Sodium Level 147 MMOL/L (136-145) H 144 MMOL/L (136-145) Potassium Level 2.9 MMOL/L (3.5-5.1) L 3.6 MMOL/L (3.5-5.1) Chloride Level 104 MMOL/L (98-107) 104 MMOL/L (98-107) Carbon Dioxide Level 40 MMOL/L (21-32) H 39 MMOL/L (21-32) H Anion Gap 3 mmol/L (5-15) L 1 mmol/L (5-15) L Blood Urea Nitrogen 9 mg/dL (7-18) 12 mg/dL (7-18) Creatinine 1.1 MG/DL (0.55-1.30) 1.5 MG/DL (0.55-1.30) H Estimat Glomerular Filtration Rate > 60 mL/min (>60) 49.9 mL/min (>60) Glucose Level 102 MG/DL (74-106) 139 MG/DL (74-106) H Calcium Level 8.6 MG/DL (8.5-10.1) 8.5 MG/DL (8.5-10.1) Total Bilirubin 0.8 MG/DL (0.2-1.0) 0.6 MG/DL (0.2-1.0) Aspartate Amino Transf (AST/SGOT) 16 U/L (15-37) 14 U/L (15-37) L Alanine Aminotransferase (ALT/SGPT) 17 U/L (12-78) 19 U/L (12-78) Alkaline Phosphatase 74 U/L (46-116) 73 U/L (46-116) Troponin I 0.021 ng/mL (0.000-0.056) Pro-B-Type Natriuretic Peptide 932 pg/mL (0-125) H Total Protein 7.0 G/DL (6.4-8.2) 7.1 G/DL (6.4-8.2) Albumin 3.6 G/DL (3.4-5.0) 3.6 G/DL (3.4-5.0) Globulin 3.4 g/dL 3.5 g/dL Albumin/Globulin Ratio 1.1 (1.0-2.7) 1.0 (1.0-2.7) Differential Total Cells Counted 100 Neutrophils % (Manual) 89 % (45-75) H Lymphocytes % (Manual) 9 % (20-45) L Monocytes % (Manual) 1 % (1-10) Eosinophils % (Manual) 1 % (0-3) Basophils % (Manual) 0 % (0-2) Band Neutrophils 0 % (0-8) Platelet Estimate Adequate Platelet Morphology Normal Anisocytosis 1+ Hemoglobin A1c 6.1 % (4.3-6.0) H Uric Acid 6.6 MG/DL (2.6-7.2) Phosphorus Level 4.1 MG/DL (2.5-4.9) Magnesium Level 2.0 MG/DL (1.8-2.4) Gamma Glutamyl Transpeptidase 19 U/L (5-85) Triglycerides Level 78 MG/DL (30-150) Cholesterol Level 183 MG/DL (< 200) LDL Cholesterol 112 mg/dL (<100) H HDL Cholesterol 42 MG/DL (40-60) Cholesterol/HDL Ratio 4.4 (3.3-4.4) Thyroid Stimulating Hormone (TSH) 1.041 uiU/mL (0.358-3.740) Microbiology Date/Time Source Procedure Growth Status 04/05/19 22:27 Nasal Nares - Final Complete 04/05/19 22:27 Nasal Nares - Final Complete 04/05/19 21:34 Rectum Received Sandor Doll MD Apr 06, 2019 17:25
[2019-04-06] MEDS: Lisinopril 10mg tab ORAL SCH (18:00)
--- NOTE | 2019-04-06 19:15 | History and Physical Report ---
DATE OF ADMISSION: 04/05/2019 HISTORY OF PRESENT ILLNESS: The patient has history of basically CHF. He is admitted for CHF exacerbation, morbid obesity. Comes in with chest pain as well as shortness of breath for 5 days. The patient initially had cold symptoms and was complaining of bilateral ear pain as well. Chest x-ray was hard to read because of his body habitus, but showed a small effusion on the left side. was also elevated. Potassium was also very low. The patient was tachycardic initially and was admitted for CHF, chest pain exacerbation, hypokalemia severe, chest pain, and shortness of breath. The patient also had a sore throat and pain all over and dry cough for 5 days as well and worsening edema in the lower extremity. Denies orthopnea. PAST MEDICAL HISTORY: Hypertension, hyperlipidemia, CHF, chronic pain syndrome, anxiety, COPD, sleep apnea, morbid obesity. PAST SURGICAL HISTORY: None. SOCIAL HISTORY: History of marijuana. Denies history of smoking. Denies history of alcohol abuse. ALLERGIES: To Xarelto. MEDICATIONS: Aspirin, Norvasc, Lipitor, Lasix, and gabapentin. FAMILY HISTORY: Does have history of hypertension, diabetes. REVIEW OF SYSTEMS: HEENT: Denies headaches. CONSTITUTIONAL: Reports shortness of breath and nonproductive cough and bilateral ear pain for the past 5 days as well as sore throat. The patient also complains of generalized pain and worsening leg edema. RESPIRATORY: Does have shortness of breath and dry cough. CARDIOVASCULAR: Reports chest pain as well for 5 to couple of days. Does have chronic pain syndrome as well. CENTRAL NERVOUS SYSTEM: Denies any change in speech pattern. PHYSICAL EXAMINATION: VITAL SIGNS: Temperature is 98.5, pulse is 74, blood pressure was 93/77. HEENT: PERRLA. NECK: Supple. CHEST: Bibasilar rhonchi. CARDIOVASCULAR: Regular rate and rhythm. GASTROINTESTINAL: Soft. Positive bowel sounds. No organomegaly. EXTREMITIES: The patient has 2+ pitting edema. NEUROLOGIC: Has generalized weakness. Reflexes equal on both sides. LABORATORY DATA: WBC of 10.6, hemoglobin of 13.4, platelets 237. Sodium 147, potassium of 2.9, BUN of 9, creatinine of 1.1. BNP of 932. Troponin 0.021. ASSESSMENT AND PLAN: CHF on chest x-ray as well as clinically, chest pain, shortness of breath, electrolyte imbalance, and morbid obesity. I have also asked Dr. Yin, Dr. Stack, Dr. Doll, Dr. Bill Pak, Dr. Wise to see the patient for the above-mentioned diagnoses and treatment as well as rule out pneumonia as well as for antibiotics per Dr. Bill Pak as well as for abnormal laboratories and imaging studies will help with the management of the patient. The patient admitted to the monitored bed. Brodie De Jesus M.D. DR: BERNICE JOB#: [id number] CC:
--- NOTE | 2019-04-06 19:30 | NUR ---
HAND-OFF: Report given to KEESHA Pacheco. Plan of care endorsed.
[2019-04-06] MEDS: Atorvastatin 20mg tab ORAL SCH (21:39)
--- NOTE | 2019-04-06 23:31 | Consultation ---
DATE OF CONSULTATION: 04/06/2019 CARDIOLOGY CONSULTATION CONSULTING PHYSICIAN: Sandor Doll M.D. REFERRING PHYSICIAN: Brodie De Jesus M.D. REASON FOR CONSULTATION: Atrial accelerated hypertension and congestive heart failure. HISTORY OF PRESENT ILLNESS: The patient is a 48-year-old gentleman with history of morbid obesity and congestive heart failure, presented to the emergency for increasing shortness of breath and chest pain as well as chills and sore throat. The patient's blood pressure in the ER was 191/103 with pulse of 96. The patient underwent a preliminary echocardiogram that showed ejection fraction within normal range. The patient was admitted on IV Lasix and a Cardiology consultation was obtained for further evaluation. REVIEW OF SYSTEMS: Negative other than what is mentioned in history of present illness. PAST MEDICAL HISTORY: As mentioned above. FAMILY HISTORY: Noncontributory. SOCIAL HISTORY: Does not smoke or drink alcohol. PHYSICAL EXAMINATION: VITAL SIGNS: Show blood pressure currently 142/98, pulse is 100, respirations 18, and temperature 97.7. HEENT: Showed no JVD. LUNGS: Coarse rhonchi. CARDIOVASCULAR: Shows regular S1 and S2 with no gallop or murmur. ABDOMEN: Soft. EXTREMITIES: A 3+ pitting edema. LABORATORY AND DIAGNOSTIC DATA: His EKG shows sinus tachycardia with nonspecific ST-T wave abnormalities. LABORATORY DATA: Labs show white count of 10, hemoglobin 12.8, hematocrit of 40, and platelet count of 253,000. Sodium 144, potassium 3.7, BUN of 12, creatinine 1.5. Troponin is 0.21. BNP is 932. ASSESSMENT AND PLAN: 1. Congestive heart failure, likely diastolic dysfunction. Increase Lasix to 80 mg IV b.i.d. Continue lisinopril 10 mg b.i.d. and Norvasc 10 mg daily. 2. Hypertension. Continue the patient on the above medication. 3. Morbid obesity. 4. COPD. On Solu-Medrol. 5. Lipidemia. On Lipitor. Thank you very much for allowing me to participate in the care of this patient. Please do not hesitate to contact me for any questions regarding my evaluation. Sandor Doll M.D. DR: JAYDEN JOB#: [id number] CC:
[2019-04-06] MEDS ORDERED: Albuterol/Ipratropium 3ml neb ONE (23:43)
[2019-04-07] VITALS: BP 107/75
[2019-04-07] MEDS: Albuterol/Ipratropium 3ml neb HHN SCH ×6 (03:52→23:25)
[2019-04-07 04:00] VITALS: BP 141/84
[2019-04-07] MEDS: Solu-MEDROL 40mg Inj IVP SCH ×3 (05:39→21:06)
[2019-04-07] MEDS: HYDROcodone/Acetamin 10/325 tab ORAL PRN ×3 (05:40→22:03)
--- NOTE | 2019-04-07 07:00 | NUR ---
HAND-OFF: Report given to Temo THAO.
--- NOTE | 2019-04-07 07:15 | NUR ---
NURSE NOTES: Report received from KEESHA Harper. Patient in 2L NC. Denies SOB. Having breakfast. IV site intact. Room cleared from clatter. Bed on lowest position, side rails upx2, brakes engaged. Call light within easy reach.
[2019-04-07 08:00] VITALS: BP 147/115
[2019-04-07] MEDS: Lisinopril 10mg tab ORAL SCH ×2 (08:53→17:48)
[2019-04-07] MEDS: Aspirin Baby 81mg ORAL SCH (08:54)
--- NOTE | 2019-04-07 09:55 | Cardiac Electrophysiology PN ---
Assessment/Plan Assessment/Plan 1. Congestive heart failure, likely diastolic dysfunction. On Lasix 80 mg IV b.i.d., lisinopril 10 mg b.i.d. mg daily. EF 60% 2. Hypertension. Continue the patient on the above medication and Norvasc 10 3. Morbid obesity. 4. COPD. On Solu-Medrol and CPAP 5. Lipidemia. On Lipitor. Subjective Subjective Was on CPAP overnight. Abdullahi multiple short runs of NSVT Objective Last 24 Hour Vital Signs Date Time Temp Pulse Resp B/P (MAP) Pulse Ox O2 Delivery O2 Flow Rate FiO2 04/07/19 08:54 117 147/115 04/07/19 08:53 147/115 04/07/19 08:00 2.0 04/07/19 08:00 98.7 117 18 147/115 (126) 93 04/07/19 07:30 96 Nasal Cannula 4.0 36 04/07/19 07:30 Nasal Cannula 04/07/19 06:10 97.7 04/07/19 04:26 86 95 4.0 36 04/07/19 04:00 97.7 71 20 141/84 (103) 93 04/07/19 04:00 88 04/07/19 04:00 2.0 04/07/19 03:59 89 19 96 Facial 30 04/07/19 01:00 89 22 97 Nasal Cannula 3.0 32 85 18 96 04/07/19 00:00 97.7 95 19 107/75 (86) 93 04/07/19 00:00 2.0 04/07/19 00:00 92 04/06/19 23:55 97.7 04/06/19 21:19 97 Nasal Cannula 3.0 32 04/06/19 21:00 Nasal Cannula 2.0 04/06/19 20:00 97.1 88 20 122/79 (93) 93 04/06/19 20:00 83 20 97 Nasal Cannula 3.0 32 80 20 96 04/06/19 20:00 2.0 04/06/19 20:00 82 04/06/19 18:00 126/81 04/06/19 16:00 2.0 04/06/19 16:00 97.7 102 20 140/98 (112) 93 04/06/19 16:00 110 04/06/19 15:17 84 22 99 Nasal Cannula 3.0 32 81 22 95 04/06/19 12:00 2.0 04/06/19 12:00 98.5 92 20 142/95 (111) 93 04/06/19 12:00 99 04/06/19 11:26 80 22 98 Nasal Cannula 3.0 32 77 22 96 Intake and Output 04/06/19 04/07/19 19:00 07:00 Intake Total 2170 ml Output Total 1200 ml 1200 ml Balance 970 ml -1200 ml Intake Oral 2170 ml Output Urine Total 1200 ml 1200 ml # Voids 6 # Bowel Movements 1 1 Laboratory Tests Test 04/06/19 10:10 04/07/19 06:05 White Blood Count 10.0 K/UL (4.8-10.8) Red Blood Count 5.07 M/UL (4.70-6.10) Hemoglobin 12.8 G/DL (14.2-18.0) L Hematocrit 40.2 % (42.0-52.0) L Mean Corpuscular Volume 79 FL (80-99) L Mean Corpuscular Hemoglobin 25.2 PG (27.0-31.0) L Mean Corpuscular Hemoglobin Concent 31.7 G/DL (32.0-36.0) L Red Cell Distribution Width 15.6 % (11.6-14.8) H Platelet Count 253 K/UL (150-450) Mean Platelet Volume 8.9 FL (6.5-10.1) Neutrophils (%) (Auto) % (45.0-75.0) Lymphocytes (%) (Auto) % (20.0-45.0) Monocytes (%) (Auto) % (1.0-10.0) Eosinophils (%) (Auto) % (0.0-3.0) Basophils (%) (Auto) % (0.0-2.0) Differential Total Cells Counted 100 Neutrophils % (Manual) 89 % (45-75) H Lymphocytes % (Manual) 9 % (20-45) L Monocytes % (Manual) 1 % (1-10) Eosinophils % (Manual) 1 % (0-3) Basophils % (Manual) 0 % (0-2) Band Neutrophils 0 % (0-8) Platelet Estimate Adequate Platelet Morphology Normal Anisocytosis 1+ Sodium Level 144 MMOL/L (136-145) Potassium Level 3.6 MMOL/L (3.5-5.1) 3.8 MMOL/L (3.5-5.1) Chloride Level 104 MMOL/L (98-107) Carbon Dioxide Level 39 MMOL/L (21-32) H Anion Gap 1 mmol/L (5-15) L Blood Urea Nitrogen 12 mg/dL (7-18) Creatinine 1.5 MG/DL (0.55-1.30) H Estimat Glomerular Filtration Rate 49.9 mL/min (>60) Glucose Level 139 MG/DL (74-106) H Hemoglobin A1c 6.1 % (4.3-6.0) H Uric Acid 6.6 MG/DL (2.6-7.2) Calcium Level 8.5 MG/DL (8.5-10.1) Phosphorus Level 4.1 MG/DL (2.5-4.9) Magnesium Level 2.0 MG/DL (1.8-2.4) Total Bilirubin 0.6 MG/DL (0.2-1.0) Gamma Glutamyl Transpeptidase 19 U/L (5-85) Aspartate Amino Transf (AST/SGOT) 14 U/L (15-37) L Alanine Aminotransferase (ALT/SGPT) 19 U/L (12-78) Alkaline Phosphatase 73 U/L (46-116) Total Protein 7.1 G/DL (6.4-8.2) Albumin 3.6 G/DL (3.4-5.0) Globulin 3.5 g/dL Albumin/Globulin Ratio 1.0 (1.0-2.7) Triglycerides Level 78 MG/DL (30-150) Cholesterol Level 183 MG/DL (< 200) LDL Cholesterol 112 mg/dL (<100) H HDL Cholesterol 42 MG/DL (40-60) Cholesterol/HDL Ratio 4.4 (3.3-4.4) Thyroid Stimulating Hormone (TSH) 1.041 uiU/mL (0.358-3.740) Troponin I 0.007 ng/mL (0.000-0.056) Pro-B-Type Natriuretic Peptide 636 pg/mL (0-125) H Microbiology Date/Time Source Procedure Growth Status 04/05/19 22:27 Nasal Nares - Final Complete 04/05/19 22:27 Nasal Nares - Final Complete 04/05/19 21:34 Rectum Received Objective HEENT: Showed no JVD. LUNGS: Coarse rhonchi. CARDIOVASCULAR: Shows regular S1 and S2 with no gallop or murmur. ABDOMEN: Soft. EXTREMITIES: 3+ pitting edema. Sandor Doll MD Apr 07, 2019 09:55
--- NOTE | 2019-04-07 10:05 | General Progress Note ---
Assessment/Plan Assessment/Plan: (1) Lumbar DDD (2) Lumbar Spondylosis (3) Morbid obesity Patient to be continued on [place] D/w Dr. Stack and he concurred. Subjective Date patient seen: Apr 07, 2019 Time patient seen: 10:00 - am Allergies: Coded Allergies: RIVAROXABAN (Verified Allergy, Unknown, 04/05/19) Subjective REVIEW OF SYSTEMS: Denies rash, fever, chills at this time, sweating, dizziness, drowsiness, blurred vision, sore throat, change in weight. No nausea, vomiting, diarrhea, or blood in the stool or urine. No dysuria. He is complaining of low back pain. SUBJECTIVE: Patient is in bed sitting up continues to c/o back pain. The pain has been stable and he is using the [place] as needed which reduces it to a tolerable level. No new complaints at this time. Objective Last 24 Hour Vital Signs Date Time Temp Pulse Resp B/P (MAP) Pulse Ox O2 Delivery O2 Flow Rate FiO2 04/07/19 08:54 117 147/115 04/07/19 08:53 147/115 04/07/19 08:00 2.0 04/07/19 08:00 98.7 117 18 147/115 (126) 93 04/07/19 07:30 96 Nasal Cannula 4.0 36 04/07/19 07:30 Nasal Cannula 04/07/19 06:10 97.7 04/07/19 04:26 86 95 4.0 36 04/07/19 04:00 97.7 71 20 141/84 (103) 93 04/07/19 04:00 88 04/07/19 04:00 2.0 04/07/19 03:59 89 19 96 Facial 30 04/07/19 01:00 89 22 97 Nasal Cannula 3.0 32 85 18 96 04/07/19 00:00 97.7 95 19 107/75 (86) 93 04/07/19 00:00 2.0 04/07/19 00:00 92 04/06/19 23:55 97.7 04/06/19 21:19 97 Nasal Cannula 3.0 32 04/06/19 21:00 Nasal Cannula 2.0 04/06/19 20:00 97.1 88 20 122/79 (93) 93 04/06/19 20:00 83 20 97 Nasal Cannula 3.0 32 80 20 96 04/06/19 20:00 2.0 04/06/19 20:00 82 04/06/19 18:00 126/81 04/06/19 16:00 2.0 04/06/19 16:00 97.7 102 20 140/98 (112) 93 04/06/19 16:00 110 04/06/19 15:17 84 22 99 Nasal Cannula 3.0 32 81 22 95 04/06/19 12:00 2.0 04/06/19 12:00 98.5 92 20 142/95 (111) 93 04/06/19 12:00 99 04/06/19 11:26 80 22 98 Nasal Cannula 3.0 32 77 22 96 Intake and Output 04/06/19 04/07/19 19:00 07:00 Intake Total 2170 ml Output Total 1200 ml 1200 ml Balance 970 ml -1200 ml Intake Oral 2170 ml Output Urine Total 1200 ml 1200 ml # Voids 6 # Bowel Movements 1 1 Laboratory Tests 04/06/19 10:10: White Blood Count 10.0, Red Blood Count 5.07, Hemoglobin 12.8L, Hematocrit 40.2L , Mean Corpuscular Volume 79L, Mean Corpuscular Hemoglobin 25.2L, Mean Corpuscular Hemoglobin Concent 31.7L, Red Cell Distribution Width 15.6H, Platelet Count 253, Mean Platelet Volume 8.9, Neutrophils (%) (Auto) , Lymphocytes (%) (Auto) , Monocytes (%) (Auto) , Eosinophils (%) (Auto) , Basophils (%) (Auto) , Differential Total Cells Counted 100, Neutrophils % ( Manual) 89H, Lymphocytes % (Manual) 9L, Monocytes % (Manual) 1, Eosinophils % ( Manual) 1, Basophils % (Manual) 0, Band Neutrophils 0, Platelet Estimate Adequate, Platelet Morphology Normal, Anisocytosis 1+, Sodium Level 144, Potassium Level 3.6, Chloride Level 104, Carbon Dioxide Level 39H, Anion Gap 1L , Blood Urea Nitrogen 12, Creatinine 1.5H, Estimat Glomerular Filtration Rate 49.9, Glucose Level 139H, Hemoglobin A1c 6.1H, Uric Acid 6.6, Calcium Level 8.5 , Phosphorus Level 4.1, Magnesium Level 2.0, Total Bilirubin 0.6, Gamma Glutamyl Transpeptidase 19, Aspartate Amino Transf (AST/SGOT) 14L, Alanine Aminotransferase (ALT/SGPT) 19, Alkaline Phosphatase 73, Total Protein 7.1, Albumin 3.6, Globulin 3.5, Albumin/Globulin Ratio 1.0, Triglycerides Level 78, Cholesterol Level 183, LDL Cholesterol 112H, HDL Cholesterol 42, Cholesterol/ HDL Ratio 4.4, Thyroid Stimulating Hormone (TSH) 1.041 04/07/19 06:05: Potassium Level 3.8, Troponin I 0.007, Pro-B-Type Natriuretic Peptide 636H Height (Feet): 5 Height (Inches): 10.00 Weight (Pounds): 301 Objective GENERAL: Alert, awake, and oriented. LUNGS: Decreased breath sounds bilaterally. HEART: S1 and S2 regular. ABDOMEN: Obese.. EXTREMITIES: No cyanosis. No clubbing. NEURO: No changes. Osito Sultana Apr 07, 2019 10:05
--- NOTE | 2019-04-07 11:58 | NUR ---
CASE MANAGEMENT: REVIEW 04/07/19 SI: CHF . COPD . HTN 98.7 117 147/115 93% ON 2L NC BNP 636 IS: IV LASIX BID K-DUR PO BID IV SOLU-MEDROL Q8HR NORVASC PO QD ZESTRIL PO BID ALBUTEROL HHN Q4HR ASA PO QD \: 2E TELE UNIT DCP: HOME WHEN MEDICALLY CLEAR PLAN: ADMIT TO INPATIENT Addendum: 04/07/19 at 1205 by GARCIA MOROCHO LVN CASE MANAGEMENT: REVIEW 04/07/19 SI: CHF . COPD . HTN . PMH: CHRONIC LUMBAR DDD; LUMBAR SPONDYLOSIS 98.7 117 147/115 93% ON 2L NC BNP 636 IS: IV LASIX BID K-DUR PO BID IV SOLU-MEDROL Q8HR NORVASC PO QD ZESTRIL PO BID ALBUTEROL HHN Q4HR ASA PO QD \: 2E TELE UNIT DCP: HOME WHEN MEDICALLY CLEAR PLAN: ADMIT TO INPATIENT
[2019-04-07 12:00] VITALS: BP 154/87
[2019-04-07 13:34] LABS: APPEARANCE,URINE CLEAR; BILIRUBIN, URINE NEGATIVE (NEGATIVE); COLOR,URINE PALE YELLOW; GLUCOSE, URINE (UA) NEGATIVE (NEGATIVE); KETONES,URINE NEGATIVE (NEGATIVE); LEUKOCYTE ESTERASE ,URINE NEGATIVE (NEGATIVE); NITRITE,URINE NEGATIVE (NEGATIVE); PH,URINE 5 (4.5-8.0); PROTEIN,URINE NEGATIVE (NEGATIVE); UROBILINOGEN,URINE NORMAL MG/DL (0.0-1.0)
[2019-04-07 16:00] VITALS: BP 149/89
--- NOTE | 2019-04-07 18:44 | Pulmonology Progress Note ---
Assessment/Plan Assessment/Plan Pulmonary Progress Note HPI The patient is a 48-year-old man with history of obesity and Congestive Heart Failure, admitted with chest pain, shortness of breath, fevera and chills as well as sore throat and ear pain for 3 to 4 days ago. Denies cough or sputum production, vomiting or diarrhea, no Lower extremity swelling. Past Medical History: Obesity, Congestive Heart Failure, Chronic Obstructive Pulmonary Disease, Diabetes, Hypertension Allergies: RIVAROXABAN All Other Systems: negative except mentioned in HPI Physical Exam Vital Signs Noted Date Time Temp Pulse Resp B/P (MAP) Pulse Ox O2 Delivery O2 Flow Rate FiO2 04/05/19 18:55 98.8 96 16 191/103 (132) 96 Room Air General: Awake and alert, no acute distress HEENT: NC/AT. EOMI. tympanic membranes are erythematous, Pharynx is erythematous , no exudates, moist mm Cardiovascular: RRR. S1 and S2 normal. No murmur appreciated. Mild edema noted Resp: Normal work of breathing. Mild Wheeze. Abdomen: Abdomen is soft, nondistended. Nontender Skin: Intact. No abrasions, laceration or rash over the exposed skin Extremities: Normal tone and bulk. Moving all extremities. No obvious deformity. Neuro: Awake and alert. Mentating appropriately. Impression: Congestive heart failure Viral Illness Chronic Obstructive Pulmonary Disease No focal Infiltrates Obesity Hypertension Diabetes Hypokalemia Plan - DiuresisPRM - IV Solumedrol - HHN - O2 PRN - BiPAP PRN - PO Doxycycline - ISS - PPX - [employer]GER Medications Laboratory Tests Test 04/05/19 19:10 White Blood Count 10.6 K/UL (4.8-10.8) Red Blood Count 5.30 M/UL (4.70-6.10) Hemoglobin 13.4 G/DL (14.2-18.0) L Hematocrit 41.2 % (42.0-52.0) L Mean Corpuscular Volume 78 FL (80-99) L Mean Corpuscular Hemoglobin 25.4 PG (27.0-31.0) L Mean Corpuscular Hemoglobin Concent 32.7 G/DL (32.0-36.0) Red Cell Distribution Width 13.6 % (11.6-14.8) Platelet Count 237 K/UL (150-450) Mean Platelet Volume 8.3 FL (6.5-10.1) Neutrophils (%) (Auto) 72.0 % (45.0-75.0) Lymphocytes (%) (Auto) 18.3 % (20.0-45.0) L Monocytes (%) (Auto) 5.7 % (1.0-10.0) Eosinophils (%) (Auto) 2.7 % (0.0-3.0) Basophils (%) (Auto) 1.3 % (0.0-2.0) Sodium Level 147 MMOL/L (136-145) H Potassium Level 2.9 MMOL/L (3.5-5.1) L Chloride Level 104 MMOL/L (98-107) Carbon Dioxide Level 40 MMOL/L (21-32) H Anion Gap 3 mmol/L (5-15) L Blood Urea Nitrogen 9 mg/dL (7-18) Creatinine 1.1 MG/DL (0.55-1.30) Estimate Glomerular Filtration Rate > 60 mL/min (>60) Glucose Level 102 MG/DL (74-106) Calcium Level 8.6 MG/DL (8.5-10.1) Total Bilirubin 0.8 MG/DL (0.2-1.0) Aspartate Amino Transferase (AST) 16 U/L (15-37) Alanine Aminotransferase (ALT) 17 U/L (12-78) Alkaline Phosphatase 74 U/L (46-116) Troponin I 0.021 ng/mL (0.000-0.056) Pro-B-Type Natriuretic Peptide 932 pg/mL (0-125) H Total Protein 7.0 G/DL (6.4-8.2) Albumin 3.6 G/DL (3.4-5.0) Globulin 3.4 g/dL Albumin/Globulin Ratio 1.1 (1.0-2.7) EKG: Sinus rhythm with PACs. No ST segment changes. Normal intervals CXR: no consolidation, other - bilateral pulmonary congestion, questionable effusions. No obvious consolidation Subjective ROS Limited/Unobtainable: No Allergies: Coded Allergies: RIVAROXABAN (Verified Allergy, Unknown, 04/05/19) Objective Last 24 Hour Vital Signs Date Time Temp Pulse Resp B/P (MAP) Pulse Ox O2 Delivery O2 Flow Rate FiO2 04/07/19 17:48 149/89 04/07/19 16:00 97.0 121 18 149/89 (109) 94 04/07/19 15:45 92 18 98 Nasal Cannula 4.0 36 88 18 96 04/07/19 12:34 90 20 98 Nasal Cannula 4.0 36 90 18 95 04/07/19 12:00 98.6 96 20 154/87 (109) 94 04/07/19 12:00 2.0 04/07/19 12:00 93 04/07/19 09:00 Nasal Cannula 2.0 04/07/19 08:54 117 147/115 04/07/19 08:53 147/115 04/07/19 08:00 2.0 04/07/19 08:00 109 04/07/19 08:00 98.7 117 18 147/115 (126) 93 04/07/19 07:30 96 Nasal Cannula 4.0 36 04/07/19 07:30 Nasal Cannula 04/07/19 06:10 97.7 04/07/19 04:26 86 95 4.0 36 04/07/19 04:00 97.7 71 20 141/84 (103) 93 04/07/19 04:00 88 04/07/19 04:00 2.0 04/07/19 03:59 89 19 96 Facial 30 04/07/19 01:00 89 22 97 Nasal Cannula 3.0 32 85 18 96 04/07/19 00:00 97.7 95 19 107/75 (86) 93 04/07/19 00:00 2.0 04/07/19 00:00 92 04/06/19 23:55 97.7 04/06/19 21:19 97 Nasal Cannula 3.0 32 04/06/19 21:00 Nasal Cannula 2.0 04/06/19 20:00 97.1 88 20 122/79 (93) 93 04/06/19 20:00 83 20 97 Nasal Cannula 3.0 32 80 20 96 04/06/19 20:00 2.0 04/06/19 20:00 82 Intake and Output 04/06/19 04/07/19 18:59 06:59 Intake Total 2170 ml Output Total 1200 ml 1200 ml Balance 970 ml -1200 ml Intake Oral 2170 ml Output Urine Total 1200 ml 1200 ml # Voids 6 # Bowel Movements 1 1 Microbiology Date/Time Source Procedure Growth Status 04/05/19 22:27 Nasal Nares - Final Complete 04/05/19 22:27 Nasal Nares - Final Complete 04/05/19 21:34 Rectum Received Laboratory Tests 04/07/19 06:05: Potassium Level 3.8, Troponin I 0.007, Pro-B-Type Natriuretic Peptide 636H 04/07/19 11:40: Urine Color Pale yellow, Urine Appearance Clear, Urine pH 5, Urine Specific [place] 1.015, Urine Protein Negative, Urine Glucose (UA) Negative, Urine Ketones Negative, Urine Blood Negative, Urine Nitrite Negative, Urine Bilirubin Negative, Urine Urobilinogen Normal, Urine Leukocyte Esterase Negative, Urine RBC 0-2H, Urine WBC 0, Urine Squamous Epithelial Cells Occasional, Urine Bacteria Occasional, Urine Opiates Screen Negative, Urine Barbiturates Screen Negative, Phencyclidine (PCP) Screen Negative, Urine Amphetamines Screen Negative, Urine Benzodiazepines Screen Negative, Urine Cocaine Screen Negative, Urine Marijuana (THC) Screen Negative Current Medications Medications (Trade) Dose Ordered Sig/David Route PRN Reason Start Time Stop Time Status Last Admin Dose Admin Acetaminophen (Tylenol) 650 mg Q6H PRN ORAL Mild Pain/Temp > 100.5 04/06/19 01:45 05/06/19 01:44 04/06/19 23:25 Acetaminophen/ Hydrocodone Bitart ([place] 10/325) 1 tab Q4H PRN ORAL Severe Pain (Pain Scale 7-10) 04/06/19 09:15 04/13/19 09:14 04/07/19 14:52 Albuterol/ Ipratropium (Albuterol/ Ipratropium) 3 ml Q4HRT HHN 04/06/19 03:00 04/11/19 02:59 04/07/19 15:45 Amlodipine Besylate (Norvasc) 10 mg DAILY ORAL 04/06/19 09:00 05/06/19 08:59 04/07/19 08:54 Aspirin (ASA) 81 mg DAILY ORAL 04/06/19 09:00 05/06/19 08:59 04/07/19 08:54 Atorvastatin Calcium (Lipitor) 40 mg BEDTIME ORAL 04/06/19 21:00 05/06/19 20:59 04/06/19 21:39 Clonidine HCl (Catapres Tab) 0.1 mg Q4H PRN ORAL bp over 165 syst 04/06/19 10:30 05/06/19 10:29 Furosemide (Lasix) 80 mg EVERY 12 HOURS IV 04/06/19 21:00 05/06/19 20:59 04/07/19 08:54 Gabapentin (Neurontin) 600 mg BID ORAL 04/07/19 18:00 05/06/19 17:59 04/07/19 17:48 Hydralazine HCl (Apresoline) 25 mg Q6HR PRN ORAL For High Blood Pressure 04/06/19 02:15 05/06/19 02:14 Lisinopril (ZestriL) 10 mg BID ORAL 04/06/19 18:00 05/06/19 08:59 04/07/19 17:48 Methylprednisolone Sodium Succinate (Solu-MEDROL) 40 mg EVERY 8 HOURS IVP 04/06/19 06:00 05/06/19 05:59 04/07/19 14:41 Ondansetron HCl (Zofran) 4 mg Q6H PRN IVP Nausea & Vomiting 04/06/19 02:15 05/06/19 02:14 Potassium Chloride (K-Dur) 40 meq BID ORAL 04/06/19 18:00 05/06/19 08:59 04/07/19 17:47 Mahesh Wise MD Apr 07, 2019 18:44
--- NOTE | 2019-04-07 19:28 | NUR ---
HAND-OFF: Report given to KEESHA Rolle. Pt. in stable condition. Sitting at bedside. Plan of care endorsed.
[2019-04-07 20:00] VITALS: BP 154/104
--- NOTE | 2019-04-07 20:00 | NUR ---
NURSE NOTES: Received report from KEESHA Plascencia. Patient is sitting in bed, awake and responsive. Breathing regular and unlabored with no s/s of SOB noted. Patient is on 4L NC. Patient's IV is intact and saline locked at the moment. Bed is in lowest position, breaks engaged and call light is within reach at all times. Patient denies any discomfort or pain at this time. All needs are attended to. Will continue to monitor.
--- NOTE | 2019-04-07 20:07 | General Progress Note ---
Assessment/Plan Problem List: (1) Hypokalemia ICD Codes: E87.6 - Hypokalemia SNOMED: 29583111 (2) CHF (congestive heart failure) ICD Codes: I50.9 - Heart failure, unspecified SNOMED: 22903630 (3) Lower back pain ICD Codes: M54.5 - Low back pain SNOMED: 899860930 Status: progressing Assessment/Plan: hypokalemia improved chf fluid management per renal lbp Subjective ROS Limited/Unobtainable: Yes Allergies: Coded Allergies: RIVAROXABAN (Verified Allergy, Unknown, 04/05/19) Objective Last 24 Hour Vital Signs Date Time Temp Pulse Resp B/P (MAP) Pulse Ox O2 Delivery O2 Flow Rate FiO2 04/07/19 19:32 97 Nasal Cannula 4.0 36 04/07/19 19:22 82 18 97 Nasal Cannula 4.0 36 80 18 93 04/07/19 17:48 149/89 04/07/19 16:00 86 04/07/19 16:00 97.0 121 18 149/89 (109) 94 04/07/19 16:00 4.0 04/07/19 15:45 92 18 98 Nasal Cannula 4.0 36 88 18 96 04/07/19 12:34 90 20 98 Nasal Cannula 4.0 36 90 18 95 04/07/19 12:00 98.6 96 20 154/87 (109) 94 04/07/19 12:00 2.0 04/07/19 12:00 93 04/07/19 09:00 Nasal Cannula 2.0 04/07/19 08:54 117 147/115 04/07/19 08:53 147/115 04/07/19 08:00 2.0 04/07/19 08:00 109 04/07/19 08:00 98.7 117 18 147/115 (126) 93 04/07/19 07:30 96 Nasal Cannula 4.0 36 04/07/19 07:30 Nasal Cannula 04/07/19 06:10 97.7 04/07/19 04:26 86 95 4.0 36 04/07/19 04:00 97.7 71 20 141/84 (103) 93 04/07/19 04:00 88 04/07/19 04:00 2.0 04/07/19 03:59 89 19 96 Facial 30 04/07/19 01:00 89 22 97 Nasal Cannula 3.0 32 85 18 96 04/07/19 00:00 97.7 95 19 107/75 (86) 93 04/07/19 00:00 2.0 04/07/19 00:00 92 04/06/19 23:55 97.7 04/06/19 21:19 97 Nasal Cannula 3.0 32 04/06/19 21:00 Nasal Cannula 2.0 Intake and Output 04/06/19 04/07/19 18:59 06:59 Intake Total 2170 ml Output Total 1200 ml 1200 ml Balance 970 ml -1200 ml Intake Oral 2170 ml Output Urine Total 1200 ml 1200 ml # Voids 6 # Bowel Movements 1 1 Laboratory Tests 04/07/19 06:05: Potassium Level 3.8, Troponin I 0.007, Pro-B-Type Natriuretic Peptide 636H 04/07/19 11:40: Urine Color Pale yellow, Urine Appearance Clear, Urine pH 5, Urine Specific [place] 1.015, Urine Protein Negative, Urine Glucose (UA) Negative, Urine Ketones Negative, Urine Blood Negative, Urine Nitrite Negative, Urine Bilirubin Negative, Urine Urobilinogen Normal, Urine Leukocyte Esterase Negative, Urine RBC 0-2H, Urine WBC 0, Urine Squamous Epithelial Cells Occasional, Urine Bacteria Occasional, Urine Opiates Screen Negative, Urine Barbiturates Screen Negative, Phencyclidine (PCP) Screen Negative, Urine Amphetamines Screen Negative, Urine Benzodiazepines Screen Negative, Urine Cocaine Screen Negative, Urine Marijuana (THC) Screen Negative Height (Feet): 5 Height (Inches): 10.00 Weight (Pounds): 301 General Appearance: confused Brodie De Jesus MD Apr 07, 2019 20:07
[2019-04-07] MEDS: Atorvastatin 20mg tab ORAL SCH (21:06)
--- NOTE | 2019-04-07 21:50 | NUR ---
NURSE NOTES: Patient had 6 beats of V-tach. Assessed the patient, patient in stable condition. Informed and in regards to the ekg changes. placed lab orders. Orders noted and carried out.
--- NOTE | 2019-04-07 21:55 | NUR ---
NURSE NOTES: Patient was complaining of generalized pain as well as pain in the chest area. Pain does not radiate anywhere and patient stated "It's been hurting this way." Informed Dr. De Jesus about patient's concerns and Dr. De Jesus reffered me to Dr. Carranza who is a consult for the patient for pain needs. Called Dr. Carranza in regards to patients request for a different kind of pain medication because the PRN norco that he has is not working for him, but patient also did not want Morphine to be ordered and wanted something less strong. Left a voicemail, awaiting response. Patient is currently stable. Will continue to monitor.
[2019-04-08] VITALS (24 sets, daily range): BP systolic 106–172; BP diastolic 70–154
[2019-04-08] MEDS: Albuterol/Ipratropium 3ml neb HHN SCH ×6 (02:58→23:19)
[2019-04-08] MEDS: HYDROcodone/Acetamin 10/325 tab ORAL PRN (03:18)
[2019-04-08] MEDS: Solu-MEDROL 40mg Inj IVP SCH ×3 (05:57→21:50)
[2019-04-08 07:18] LABS: BLOOD UREA NITROGEN 24 mg/dL (7-18); CALCIUM 8.3 MG/DL (8.5-10.1); CHLORIDE 105 MMOL/L (98-107); CREATININE 1.3 MG/DL (0.55-1.30); POTASSIUM 3.6 MMOL/L (3.5-5.1); SODIUM 146 MMOL/L (136-145)
[2019-04-08 07:19] LABS: CARBON DIOXIDE 41 MMOL/L (21-32)
--- NOTE | 2019-04-08 07:26 | NUR ---
NURSE NOTES: Received report from Sariah THAO. Patient is sitting in bed, awake and responsive. Patient's IV is intact and saline locked at the moment. Breathing regular but denied SOB. Patient is on 4L NC. Bed is in lowest position, breaks engaged and call light is within reach at all times. Patient denies any discomfort or pain at this time. Will continue to plan of care.
--- NOTE | 2019-04-08 07:26 | NUR ---
HAND-OFF: Report given to KEESHA Neff. Patient in stable condition.
--- NOTE | 2019-04-08 09:08 | NUR ---
*-* INSURANCE *-* ALL CLINICALS AND REVIEWS HAVE BEEN FAXED TO: [facility] NO TOOTH CUTTER CONTACT WHEEL AT THIS TIME, PLEASE FAX THE REVIEW/CLINICAL P- [phone] F [phone]...REVIEW/CLINICAL
[2019-04-08] MEDS ORDERED: oxyCODONE HCL/Acetaminophen 5/325mg ORAL PRN ×2 (09:15→18:29)
--- NOTE | 2019-04-08 09:19 | General Progress Note ---
Assessment/Plan Assessment/Plan: (1) Lumbar DDD (2) Lumbar Spondylosis (3) Morbid obesity Patient to be discontinued off Berlin and will start Percocet 5/325mg PO 1 tab Q4H PRN severe pain. D/w Dr. Stack and he concurred. Subjective Date patient seen: Apr 08, 2019 Time patient seen: 08:45 - am Allergies: Coded Allergies: RIVAROXABAN (Verified Allergy, Unknown, 04/05/19) Subjective REVIEW OF SYSTEMS: Denies rash, fever, chills at this time, sweating, dizziness, drowsiness, blurred vision, sore throat, change in weight. No nausea, vomiting, diarrhea, or blood in the stool or urine. No dysuria. He is complaining of low back pain. SUBJECTIVE: Patient reports that he has not been having sufficient relief of pain on the Berlin, nursing notes of pain reassessment shows pain is relieved from a 8/10 to a 3/10 on the Berlin. I d/w patient about changing the Berlin to Percocet and he seems to understand. Objective Last 24 Hour Vital Signs Date Time Temp Pulse Resp B/P (MAP) Pulse Ox O2 Delivery O2 Flow Rate FiO2 04/08/19 08:02 97.9 82 20 154/102 (119) 96 04/08/19 08:00 4.0 04/08/19 06:54 64 16 98 Nasal Cannula 4.0 36 62 16 95 04/08/19 06:44 95 Nasal Cannula 4.0 36 04/08/19 04:00 97.1 83 21 151/97 (115) 96 04/08/19 04:00 4.0 04/08/19 04:00 81 04/08/19 02:58 82 18 97 Nasal Cannula 4.0 36 81 18 94 04/08/19 01:04 93 21 95 Facial 40 04/08/19 00:00 4.0 04/08/19 00:00 82 04/08/19 00:00 97.9 80 19 145/90 (108) 94 04/07/19 23:34 85 25 98 Facial 30 04/07/19 23:25 85 18 98 Nasal Cannula 4.0 36 79 18 96 04/07/19 21:26 97 04/07/19 21:00 Nasal Cannula 4.0 04/07/19 20:00 4.0 04/07/19 20:00 98.1 88 21 154/104 (121) 97 04/07/19 20:00 94 04/07/19 19:32 97 Nasal Cannula 4.0 36 04/07/19 19:22 82 18 97 Nasal Cannula 4.0 36 80 18 93 04/07/19 17:48 149/89 04/07/19 16:00 86 04/07/19 16:00 97.0 121 18 149/89 (109) 94 04/07/19 16:00 4.0 04/07/19 15:45 92 18 98 Nasal Cannula 4.0 36 88 18 96 04/07/19 12:34 90 20 98 Nasal Cannula 4.0 36 90 18 95 04/07/19 12:00 98.6 96 20 154/87 (109) 94 04/07/19 12:00 2.0 04/07/19 12:00 93 Intake and Output 04/07/19 04/08/19 19:00 07:00 Intake Total 600 ml Output Total 1340 ml 1400 ml Balance -740 ml -1400 ml Intake Oral 600 ml Output Urine Total 1340 ml 1400 ml # Voids 5 # Bowel Movements 1 1 Laboratory Tests 04/07/19 11:40: Urine Color Pale yellow, Urine Appearance Clear, Urine pH 5, Urine Specific [place] 1.015, Urine Protein Negative, Urine Glucose (UA) Negative, Urine Ketones Negative, Urine Blood Negative, Urine Nitrite Negative, Urine Bilirubin Negative, Urine Urobilinogen Normal, Urine Leukocyte Esterase Negative, Urine RBC 0-2H, Urine WBC 0, Urine Squamous Epithelial Cells Occasional, Urine Bacteria Occasional, Urine Opiates Screen Negative, Urine Barbiturates Screen Negative, Phencyclidine (PCP) Screen Negative, Urine Amphetamines Screen Negative, Urine Benzodiazepines Screen Negative, Urine Cocaine Screen Negative, Urine Marijuana (THC) Screen Negative 04/08/19 05:43: Sodium Level 146H, Potassium Level 3.6, Chloride Level 105, Carbon Dioxide Level 41*H, Blood Urea Nitrogen 24H, Creatinine 1.3, Estimat Glomerular Filtration Rate 58.9, Glucose Level 139H, Calcium Level 8.3L, Magnesium Level 1.9 Height (Feet): 5 Height (Inches): 10.00 Weight (Pounds): 301 Objective GENERAL: Alert, awake, and oriented. LUNGS: Decreased breath sounds bilaterally. HEART: S1 and S2 regular. ABDOMEN: Obese.. EXTREMITIES: No cyanosis. No clubbing. NEURO: No changes. Osito Sultana Apr 08, 2019 09:19
[2019-04-08] MEDS: Aspirin Baby 81mg ORAL SCH (09:55)
[2019-04-08] MEDS: Lisinopril 10mg tab ORAL SCH ×2 (09:55→17:14)
[2019-04-08] MEDS: Morphine Sulfate 2mg/ml Inj(IV/IM USE ONLY) IVP PRN ×3 (12:56→19:46)
--- NOTE | 2019-04-08 14:01 | Cardiac Electrophysiology PN ---
Assessment/Plan Assessment/Plan 1. Congestive heart failure, likely diastolic dysfunction. On Lasix 80 mg IV b.i.d., lisinopril 10 mg b.i.d. mg daily. EF 60% 2. Recurrent NSVT. No syncope. Nl EF. Will schedule for stress test 3. Hypertension. Continue Lasix, Lisinopril and Norvasc 10 4. Morbid obesity. 5. COPD. On Solu-Medrol and CPAP 6. Lipidemia. On Lipitor. KIAN RN Subjective Subjective Was on CPAP overnight. Had multiple short runs of NSVT again including 6 beats Objective Last 24 Hour Vital Signs Date Time Temp Pulse Resp B/P (MAP) Pulse Ox O2 Delivery O2 Flow Rate FiO2 04/08/19 12:00 97.8 94 20 148/100 (116) 95 04/08/19 12:00 87 04/08/19 12:00 4.0 04/08/19 11:10 81 17 98 Nasal Cannula 4.0 36 78 16 96 04/08/19 09:55 154/102 04/08/19 09:55 82 154/102 04/08/19 09:00 Nasal Cannula 4.0 04/08/19 08:02 97.9 82 20 154/102 (119) 96 04/08/19 08:00 92 04/08/19 08:00 4.0 04/08/19 06:54 64 16 98 Nasal Cannula 4.0 36 62 16 95 04/08/19 06:44 95 Nasal Cannula 4.0 36 04/08/19 04:00 97.1 83 21 151/97 (115) 96 04/08/19 04:00 4.0 04/08/19 04:00 81 04/08/19 02:58 82 18 97 Nasal Cannula 4.0 36 81 18 94 04/08/19 01:04 93 21 95 Facial 40 04/08/19 00:00 4.0 04/08/19 00:00 82 04/08/19 00:00 97.9 80 19 145/90 (108) 94 04/07/19 23:34 85 25 98 Facial 30 04/07/19 23:25 85 18 98 Nasal Cannula 4.0 36 79 18 96 04/07/19 21:26 97 04/07/19 21:00 Nasal Cannula 4.0 04/07/19 20:00 4.0 04/07/19 20:00 98.1 88 21 154/104 (121) 97 04/07/19 20:00 94 04/07/19 19:32 97 Nasal Cannula 4.0 36 04/07/19 19:22 82 18 97 Nasal Cannula 4.0 36 80 18 93 04/07/19 17:48 149/89 04/07/19 16:00 86 04/07/19 16:00 97.0 121 18 149/89 (109) 94 04/07/19 16:00 4.0 04/07/19 15:45 92 18 98 Nasal Cannula 4.0 36 88 18 96 Intake and Output 04/07/19 04/08/19 19:00 07:00 Intake Total 600 ml Output Total 1340 ml 1400 ml Balance -740 ml -1400 ml Intake Oral 600 ml Output Urine Total 1340 ml 1400 ml # Voids 5 # Bowel Movements 1 1 Laboratory Tests Test 04/08/19 05:43 04/08/19 12:00 Sodium Level 146 MMOL/L (136-145) H Potassium Level 3.6 MMOL/L (3.5-5.1) Chloride Level 105 MMOL/L (98-107) Carbon Dioxide Level 41 MMOL/L (21-32) *H Blood Urea Nitrogen 24 mg/dL (7-18) H Creatinine 1.3 MG/DL (0.55-1.30) Estimat Glomerular Filtration Rate 58.9 mL/min (>60) Glucose Level 139 MG/DL (74-106) H Calcium Level 8.3 MG/DL (8.5-10.1) L Magnesium Level 1.9 MG/DL (1.8-2.4) Arterial Blood pH 7.403 (7.350-7.450) Arterial Blood Partial Pressure CO2 58.4 mmHg (35.0-45.0) *H Arterial Blood Partial Pressure O2 61.8 mmHg (75.0-100.0) L Arterial Blood HCO3 35.6 mmol/L (22.0-26.0) H Arterial Blood Oxygen Saturation 91.5 % (95-100) L Arterial Blood Base Excess 8.9 (-2-2) H Kory Test Positive Microbiology Date/Time Source Procedure Growth Status 04/05/19 22:27 Nasal Nares - Final Complete 04/05/19 22:27 Nasal Nares - Final Complete 04/05/19 21:34 Nasal Nares MRSA Culture - Final NO METHICILLIN RESISTANT STAPH AUREUS... Complete 04/05/19 21:34 Rectum VRE Culture - Final Enterococcus Faecalis - Vre Complete Objective HEENT: No JVD. LUNGS: Coarse rhonchi. CARDIOVASCULAR: Shows regular S1 and S2 with no gallop or murmur. ABDOMEN: Soft. EXTREMITIES: 3+ pitting edema. Sandor Doll MD Apr 08, 2019 14:01
[2019-04-08] MEDS ORDERED: Lexiscan 0.4mg/5ml syringe IV PRN ×2 (14:03→18:29)
--- NOTE | 2019-04-08 15:24 | NUR ---
CASE MANAGEMENT: REVIEW 04/08/19 SI: CHF . COPD . HTN . PMH: CHRONIC LUMBAR DDD; LUMBAR SPONDYLOSIS 97.9 82 20 154/101 96 % ON 4L NC CO2 41 NA+146 BUN 24 CA+8.3 ABG: pCO2 58.4 pO2 61.8 HCO3 35.6 O2 SAT 91.5 IS: IV LASIX BID K-DUR PO BID IV SOLU-MEDROL Q8HR NORVASC PO QD ZESTRIL PO BID ALBUTEROL HHN Q4HR GABAPENTIN PO BID ASA PO QD \: 2E TELE UNIT DCP: HOME WHEN MEDICALLY CLEAR PLAN: NM PERF SCAN SPUTUM COLLECTION CONTROL BP
--- NOTE | 2019-04-08 17:11 | NUR ---
NURSE NOTES: Dr. Doll paged for A-Fib with HR of 130-160. The patient denied SOB or chest pain. Awaiting for reply.
--- NOTE | 2019-04-08 17:30 | Pulmonology Progress Note ---
Assessment/Plan Assessment/Plan Pulmonary Progress Note HPI The patient is a 48-year-old man with history of obesity and Congestive Heart Failure, admitted with chest pain, shortness of breath, fevera and chills as well as sore throat and ear pain for 3 to 4 days ago. Denies cough or sputum production, vomiting or diarrhea, no Lower extremity swelling. Less SOB Past Medical History: Obesity, Congestive Heart Failure, Chronic Obstructive Pulmonary Disease, Diabetes, Hypertension Allergies: RIVAROXABAN All Other Systems: negative except mentioned in HPI Physical Exam Vital Signs Noted Date Time Temp Pulse Resp B/P (MAP) Pulse Ox O2 Delivery O2 Flow Rate FiO2 04/05/19 18:55 98.8 96 16 191/103 (132) 96 Room Air General: Awake and alert, no acute distress HEENT: NC/AT. EOMI. tympanic membranes are erythematous, Pharynx is erythematous , no exudates, moist mm Cardiovascular: RRR. S1 and S2 normal. No murmur appreciated. Mild edema noted Resp: Normal work of breathing. Mild Wheeze. Abdomen: Abdomen is soft, nondistended. Nontender Skin: Intact. No abrasions, laceration or rash over the exposed skin Extremities: Normal tone and bulk. Moving all extremities. No obvious deformity. Neuro: Awake and alert. Mentating appropriately. Impression: Congestive heart failure Viral Illness Chronic Obstructive Pulmonary Disease No focal Infiltrates Obesity Hypertension Diabetes Hypokalemia Plan - DiuresisPRM - IV Solumedrol - HHN - O2 PRN - BiPAP PRN/QHS - PO Doxycycline - ISS - PPX - [employer] Medications Laboratory Tests Test 04/05/19 19:10 White Blood Count 10.6 K/UL (4.8-10.8) Red Blood Count 5.30 M/UL (4.70-6.10) Hemoglobin 13.4 G/DL (14.2-18.0) L Hematocrit 41.2 % (42.0-52.0) L Mean Corpuscular Volume 78 FL (80-99) L Mean Corpuscular Hemoglobin 25.4 PG (27.0-31.0) L Mean Corpuscular Hemoglobin Concent 32.7 G/DL (32.0-36.0) Red Cell Distribution Width 13.6 % (11.6-14.8) Platelet Count 237 K/UL (150-450) Mean Platelet Volume 8.3 FL (6.5-10.1) Neutrophils (%) (Auto) 72.0 % (45.0-75.0) Lymphocytes (%) (Auto) 18.3 % (20.0-45.0) L Monocytes (%) (Auto) 5.7 % (1.0-10.0) Eosinophils (%) (Auto) 2.7 % (0.0-3.0) Basophils (%) (Auto) 1.3 % (0.0-2.0) Sodium Level 147 MMOL/L (136-145) H Potassium Level 2.9 MMOL/L (3.5-5.1) L Chloride Level 104 MMOL/L (98-107) Carbon Dioxide Level 40 MMOL/L (21-32) H Anion Gap 3 mmol/L (5-15) L Blood Urea Nitrogen 9 mg/dL (7-18) Creatinine 1.1 MG/DL (0.55-1.30) Estimate Glomerular Filtration Rate > 60 mL/min (>60) Glucose Level 102 MG/DL (74-106) Calcium Level 8.6 MG/DL (8.5-10.1) Total Bilirubin 0.8 MG/DL (0.2-1.0) Aspartate Amino Transferase (AST) 16 U/L (15-37) Alanine Aminotransferase (ALT) 17 U/L (12-78) Alkaline Phosphatase 74 U/L (46-116) Troponin I 0.021 ng/mL (0.000-0.056) Pro-B-Type Natriuretic Peptide 932 pg/mL (0-125) H Total Protein 7.0 G/DL (6.4-8.2) Albumin 3.6 G/DL (3.4-5.0) Globulin 3.4 g/dL Albumin/Globulin Ratio 1.1 (1.0-2.7) EKG: Sinus rhythm with PACs. No ST segment changes. Normal intervals CXR: no consolidation, other - bilateral pulmonary congestion, questionable effusions. No obvious consolidation Subjective ROS Limited/Unobtainable: No Allergies: Coded Allergies: RIVAROXABAN (Verified Allergy, Unknown, 04/05/19) Objective Last 24 Hour Vital Signs Date Time Temp Pulse Resp B/P (MAP) Pulse Ox O2 Delivery O2 Flow Rate FiO2 12/6/19 17:14 158/117 04/08/19 17:08 97 04/08/19 16:30 88 18 98 Facial 40 04/08/19 16:00 28 04/08/19 16:00 97.6 96 20 158/117 (131) 93 04/08/19 14:42 85 19 96 Facial 40 89 20 98 Bi-Pap 40 04/08/19 12:00 97.8 94 20 148/100 (116) 95 04/08/19 12:00 87 04/08/19 12:00 4.0 04/08/19 11:10 81 17 98 Nasal Cannula 4.0 36 78 16 96 04/08/19 09:55 154/102 04/08/19 09:55 82 154/102 04/08/19 09:00 Nasal Cannula 4.0 04/08/19 08:02 97.9 82 20 154/102 (119) 96 04/08/19 08:00 92 04/08/19 08:00 4.0 04/08/19 06:54 64 16 98 Nasal Cannula 4.0 36 62 16 95 04/08/19 06:44 95 Nasal Cannula 4.0 36 04/08/19 04:00 97.1 83 21 151/97 (115) 96 04/08/19 04:00 4.0 04/08/19 04:00 81 04/08/19 02:58 82 18 97 Nasal Cannula 4.0 36 81 18 94 04/08/19 01:04 93 21 95 Facial 40 04/08/19 00:00 4.0 04/08/19 00:00 82 04/08/19 00:00 97.9 80 19 145/90 (108) 94 04/07/19 23:34 85 25 98 Facial 30 04/07/19 23:25 85 18 98 Nasal Cannula 4.0 36 79 18 96 04/07/19 21:26 97 04/07/19 21:00 Nasal Cannula 4.0 04/07/19 20:00 4.0 04/07/19 20:00 98.1 88 21 154/104 (121) 97 04/07/19 20:00 94 04/07/19 19:32 97 Nasal Cannula 4.0 36 04/07/19 19:22 82 18 97 Nasal Cannula 4.0 36 80 18 93 04/07/19 17:48 149/89 Intake and Output 04/07/19 04/08/19 19:00 07:00 Intake Total 600 ml Output Total 1340 ml 1400 ml Balance -740 ml -1400 ml Intake Oral 600 ml Output Urine Total 1340 ml 1400 ml # Voids 5 # Bowel Movements 1 1 Microbiology Date/Time Source Procedure Growth Status 04/05/19 22:27 Nasal Nares - Final Complete 04/05/19 22:27 Nasal Nares - Final Complete 04/05/19 21:34 Nasal Nares MRSA Culture - Final NO METHICILLIN RESISTANT STAPH AUREUS... Complete 04/05/19 21:34 Rectum VRE Culture - Final Enterococcus Faecalis - Vre Complete Laboratory Tests 04/08/19 05:43: Sodium Level 146H, Potassium Level 3.6, Chloride Level 105, Carbon Dioxide Level 41*H, Blood Urea Nitrogen 24H, Creatinine 1.3, Estimat Glomerular Filtration Rate 58.9, Glucose Level 139H, Calcium Level 8.3L, Magnesium Level 1.9 04/08/19 12:00: Arterial Blood pH 7.403, Arterial Blood Partial Pressure CO2 58.4*H, Arterial Blood Partial Pressure O2 61.8L, Arterial Blood HCO3 35.6H, Arterial Blood Oxygen Saturation 91.5L, Arterial Blood Base Excess 8.9H, Kory Test Positive Current Medications Medications (Trade) Dose Ordered Sig/David Route PRN Reason Start Time Stop Time Status Last Admin Dose Admin Acetaminophen (Tylenol) 650 mg Q6H PRN ORAL Mild Pain/Temp > 100.5 04/06/19 01:45 05/06/19 01:44 04/06/19 23:25 Albuterol/ Ipratropium (Albuterol/ Ipratropium) 3 ml Q4HRT HHN 04/06/19 03:00 04/11/19 02:59 04/08/19 14:32 Amlodipine Besylate (Norvasc) 10 mg DAILY ORAL 04/06/19 09:00 05/06/19 08:59 04/08/19 09:55 Aspirin (ASA) 81 mg DAILY ORAL 04/06/19 09:00 05/06/19 08:59 04/08/19 09:55 Atorvastatin Calcium (Lipitor) 40 mg BEDTIME ORAL 04/06/19 21:00 05/06/19 20:59 04/07/19 21:06 Clonidine HCl (Catapres Tab) 0.1 mg Q4H PRN ORAL bp over 165 syst 04/06/19 10:30 05/06/19 10:29 Furosemide (Lasix) 80 mg Q12HR@0600,1800 IV 04/08/19 18:00 05/08/19 17:59 04/08/19 17:14 Gabapentin (Neurontin) 600 mg BID ORAL 04/07/19 18:00 05/06/19 17:59 04/08/19 17:13 Hydralazine HCl (Apresoline) 25 mg Q6HR PRN ORAL For High Blood Pressure 04/06/19 02:15 05/06/19 02:14 Lisinopril (ZestriL) 10 mg BID ORAL 04/06/19 18:00 05/06/19 08:59 04/08/19 17:14 Methylprednisolone Sodium Succinate (Solu-MEDROL) 40 mg EVERY 8 HOURS IVP 04/06/19 06:00 05/06/19 05:59 04/08/19 14:22 Morphine Sulfate (Morphine Sulfate) 1 mg Q6H PRN IVP Breakthrough Pain 04/08/19 12:30 04/15/19 12:29 04/08/19 12:58 Ondansetron HCl (Zofran) 4 mg Q6H PRN IVP Nausea & Vomiting 04/06/19 02:15 05/06/19 02:14 Oxycodone/ Acetaminophen (Percocet 5-325) 1 tab Q4H PRN ORAL Severe Pain (Pain Scale 7-10) 04/08/19 09:15 04/15/19 09:14 04/08/19 11:09 Potassium Chloride (K-Dur) 40 meq BID ORAL 04/06/19 18:00 05/06/19 08:59 04/08/19 17:14 Regadenoson (Lexiscan) 0.4 mg ONCE PRN IV cardiology 04/08/19 14:03 04/11/19 23:59 Mahesh Wise MD Apr 08, 2019 17:29
--- NOTE | 2019-04-08 18:03 | NUR ---
NURSE NOTES: Received pt from DANNY Draper, pt transferred from tele [id number]. pt on monitor hr 041=890's, bp 130/90. pt verbal, a/0x4. on 4l nc. mild sob. pt 399.3lb. diminished breath sounds, inspiratory wheeze. no sputum or cough . abdomen distended. no bm at this time. iv marleny 20g. pt c/o pain generalize 11/10. educated pt on need to stay in bed, use call light. urinal at bedside. bed alarm on, call light in reach. willl continue to monitor,.
--- NOTE | 2019-04-08 18:10 | NUR ---
NURSE NOTES: At 17:38 Dr. Doll ordered to transferred the patient to ICU for Bautista dejesus. STAT EKG and d/c Lisinopril and d/c Norvasc ordered and carried out. Chano THAO warehouse supervisor paged for ICU transfer. At 17:50 A-fib with RVR noted with HR of 160-170 on EKG. At 1800 the patient alert and oriented x4 and denied chest pain or SOB. The pt. transferred to ICU with two RNs, a monitor and nurse warehouse supervisor via hospital bed with 4L O2 via N/C. Report given to Jade THAO @ICU. At 18:10 Dr. Doll paged again for anticoagulation tx. Awaiting for reply.
[2019-04-08] MEDS ORDERED: HydrALAZINE 25mg tab ORAL PRN (18:28)
--- NOTE | 2019-04-08 18:55 | NUR ---
NURSE NOTES: c.n for order hep drip no bolus, for afib per md licea order.
--- NOTE | 2019-04-08 19:00 | NUR ---
NURSE NOTES: Heparin drip ordered by Dr. Doll and order delivered to Mani RN@ICU
[2019-04-08] MEDS ORDERED: Heparin 5000 units/ml inj IV ONE (19:30)
--- NOTE | 2019-04-08 19:30 | NUR ---
NURSE NOTES: pt pain 7/10 morphine given 0.5ml, ivp. will continue to monitor pt.
[2019-04-08] MEDS ORDERED: Heparin 25,000u/D5W 500ml 500 ML IV SCH (19:57)
--- NOTE | 2019-04-08 20:05 | NUR ---
NURSE NOTES: LE: PATIENT ALERT, ORIENTED X4, DENIED CHEST PAIN OR SOB, RESPIRATION REGULAR, [place], O2 SATURATION 955 NOTED ON O2 4LPM VIA NC, NO COUGH SIGN, HEART RATE 140'S/MIN A-FIB NOTED, ABDOMEN TENDER, LARGE AND ROUND, PERIPHERAL LINE TO RIGHT AC 20G, INTACT AND PATENT, ONGOING CARDIZEM DRIP 4.5MG/HR STATUS, MADE 5MG/HR AT THAT TIME, ON BED ALARM AND LOCKED, MADE LOWE BED POSITION, PROVIDED CALL LIGHT WITHIN REACH, WILL CONTINUE TO MONITOR.
--- NOTE | 2019-04-08 20:14 | NUR ---
HAND-OFF: Report given to beverley ross. endorsed f/u w/ hep drip
[2019-04-08 20:30] LABS: BASOPHILS % (AUTO) 1.1 % (0.0-2.0); HEMATOCRIT 41.4 % (42.0-52.0); HEMOGLOBIN 13.4 G/DL (14.2-18.0); LYMPHOCYTES % (AUTO) 9.8 % (20.0-45.0); MEAN CORPUSCULAR VOLUME 78 FL (80-99); MONOCYTES % (AUTO) 4.3 % (1.0-10.0); NEUTROPHILS % (AUTO) 84.8 % (45.0-75.0); PLATELET COUNT 263 K/UL (150-450); RED BLOOD COUNT 5.33 M/UL (4.70-6.10); RED CELL DISTRIBUTION WIDTH 13.9 % (11.6-14.8); WHITE BLOOD COUNT 15.5 K/UL (4.8-10.8)
[2019-04-08] MEDS: Atorvastatin 20mg tab ORAL SCH (20:49)
--- NOTE | 2019-04-08 21:11 | General Progress Note ---
Assessment/Plan Problem List: (1) Hypokalemia ICD Codes: E87.6 - Hypokalemia SNOMED: 59252686 (2) CHF (congestive heart failure) ICD Codes: I50.9 - Heart failure, unspecified SNOMED: 92800683 (3) Lower back pain ICD Codes: M54.5 - Low back pain SNOMED: 651721876 Status: progressing Assessment/Plan: lyte abnormality getting worse obesity edema chf fluid management per renal and practice managers lbp Subjective ROS Limited/Unobtainable: Yes Allergies: Coded Allergies: RIVAROXABAN (Verified Allergy, Unknown, 04/05/19) Objective Last 24 Hour Vital Signs Date Time Temp Pulse Resp B/P (MAP) Pulse Ox O2 Delivery O2 Flow Rate FiO2 04/08/19 19:56 93 Nasal Cannula 4.0 36 04/08/19 19:56 155 18 93 4.0 36 04/08/19 18:45 138 118/86 04/08/19 17:50 97.6 170 20 144/70 (94) 93 04/08/19 17:14 158/117 04/08/19 17:08 97 04/08/19 16:30 88 18 98 Facial 40 04/08/19 16:00 28 04/08/19 16:00 97.6 96 20 158/117 (131) 93 04/08/19 16:00 86 04/08/19 14:42 85 19 96 Facial 40 89 20 98 Bi-Pap 40 04/08/19 12:00 97.8 94 20 148/100 (116) 95 04/08/19 12:00 87 04/08/19 12:00 4.0 04/08/19 11:10 81 17 98 Nasal Cannula 4.0 36 78 16 96 04/08/19 09:55 154/102 04/08/19 09:55 82 154/102 04/08/19 09:00 Nasal Cannula 4.0 04/08/19 08:02 97.9 82 20 154/102 (119) 96 04/08/19 08:00 92 04/08/19 08:00 4.0 04/08/19 06:54 64 16 98 Nasal Cannula 4.0 36 62 16 95 04/08/19 06:44 95 Nasal Cannula 4.0 36 04/08/19 04:00 97.1 83 21 151/97 (115) 96 04/08/19 04:00 4.0 04/08/19 04:00 81 04/08/19 02:58 82 18 97 Nasal Cannula 4.0 36 81 18 94 04/08/19 01:04 93 21 95 Facial 40 04/08/19 00:00 4.0 04/08/19 00:00 82 04/08/19 00:00 97.9 80 19 145/90 (108) 94 04/07/19 23:34 85 25 98 Facial 30 04/07/19 23:25 85 18 98 Nasal Cannula 4.0 36 79 18 96 04/07/19 21:26 97 Intake and Output 04/07/19 04/08/19 18:59 06:59 Intake Total 600 ml Output Total 1340 ml 1400 ml Balance -740 ml -1400 ml Intake Oral 600 ml Output Urine Total 1340 ml 1400 ml # Voids 5 # Bowel Movements 1 1 Laboratory Tests 04/08/19 05:43: Sodium Level 146H, Potassium Level 3.6, Chloride Level 105, Carbon Dioxide Level 41*H, Blood Urea Nitrogen 24H, Creatinine 1.3, Estimat Glomerular Filtration Rate 58.9, Glucose Level 139H, Calcium Level 8.3L, Magnesium Level 1.9 04/08/19 12:00: Arterial Blood pH 7.403, Arterial Blood Partial Pressure CO2 58.4*H, Arterial Blood Partial Pressure O2 61.8L, Arterial Blood HCO3 35.6H, Arterial Blood Oxygen Saturation 91.5L, Arterial Blood Base Excess 8.9H, Kory Test Positive 04/08/19 20:00: White Blood Count 15.5H, Red Blood Count 5.33, Hemoglobin 13.4L, Hematocrit 41.4L, Mean Corpuscular Volume 78L, Mean Corpuscular Hemoglobin 25.1L, Mean Corpuscular Hemoglobin Concent 32.3, Red Cell Distribution Width 13.9, Platelet Count 263, Mean Platelet Volume 8.7, Neutrophils (%) (Auto) 84.8H, Lymphocytes ( %) (Auto) 9.8L, Monocytes (%) (Auto) 4.3, Eosinophils (%) (Auto) 0.0, Basophils (%) (Auto) 1.1, Activated Partial Thromboplast Time 23 Height (Feet): 5 Height (Inches): 10.00 Weight (Pounds): 301 Respiratory/Chest: rhonchi - bilaterally Brodie De Jesus MD Apr 08, 2019 21:11
--- NOTE | 2019-04-08 21:15 | NUR ---
NURSE NOTES: LE: STARTED HEPARIN DRIP 7.3 UNIT/KG/HR PER PROTOCOLS VIA RIGHT HAND PPL AT 2016PM. PATIENT AGAINST WANT TO GO RESTROOM THAT PATIENT WENT TO RESTROOM, NORMAL BM NOTED, DENIED DIZZINESS OR SOB, NO ACUTE DISTRESS NOTED AT 2110PM.
--- NOTE | 2019-04-08 21:21 | NUR ---
NURSE NOTES: Called the pharmacist regarding pt's wt 411 lbs on bed scale that was aware, keep current dose and will figure out.
--- NOTE | 2019-04-08 23:13 | NUR ---
NURSE NOTES: PATIENT CALM, DENIED SOB OR DISTRESS, ONGOING HEPARIN DRIP 7.3 UNIT/KG/HR AND CARDIZEM DRIP 10MG/HR VIA PPL PER PROTOCOLS, WILL CONTINUE TO MONITOR.
[2019-04-09] VITALS (60 sets, daily range): BP systolic 114–164; BP diastolic 71–116
--- NOTE | 2019-04-09 01:06 | NUR ---
NURSE NOTES: PATIENT ASLEEP STATUS, ON BIPAP 46/5, FIO2 40%, O2 SATURATION OVER 96% NOTED, NO SOB OR DISTRESS NOTED AT THIS TIME.
[2019-04-09] MEDS: Morphine Sulfate 2mg/ml Inj(IV/IM USE ONLY) IVP PRN ×4 (02:50→22:17)
[2019-04-09] MEDS: Albuterol/Ipratropium 3ml neb HHN SCH ×6 (03:08→23:20)
--- NOTE | 2019-04-09 03:20 | NUR ---
NURSE NOTES: NO PAIN NOTED AFTER INTERVENTION, ON O2 4 LPM VIA NC, O2 SATURATION OVER 96% NOTED.
[2019-04-09] MEDS ORDERED: Heparin 5000 units/ml inj IV SCH ×2 (03:30→13:15)
[2019-04-09] MEDS ORDERED: Heparin 25,000u/D5W 500ml 500 ML IV SCH ×2 (03:30→08:15)
--- NOTE | 2019-04-09 03:57 | NUR ---
NURSE NOTES: PTT WAS 26 NOTED, GIVEN HEPARIN 10,000 UNIT IVP PER PROTOCOLS AT 0346AM. CHANGED HEPARIN DRIP TO 11 UNIT/KG/HR PER PROTOCOLS AT 0347AM, WILL CONTINUE TO MONITOR.
[2019-04-09] MEDS: Solu-MEDROL 40mg Inj IVP SCH ×2 (05:42→13:37)
[2019-04-09 05:45] LABS: HEMATOCRIT 41.6 % (42.0-52.0); HEMOGLOBIN 12.9 G/DL (14.2-18.0); MEAN CORPUSCULAR VOLUME 80 FL (80-99); PLATELET COUNT 293 K/UL (150-450); RED BLOOD COUNT 5.19 M/UL (4.70-6.10); RED CELL DISTRIBUTION WIDTH 15.9 % (11.6-14.8); WHITE BLOOD COUNT 15.3 K/UL (4.8-10.8)
--- NOTE | 2019-04-09 05:56 | NUR ---
NURSE NOTES: PATIENT WANT TO SLEEP, MADE LOWER BED POSITION, PROVIDED CALL LIGHT WITHIN REACH.
[2019-04-09 06:12] LABS: ALANINE AMINOTRANSFERASE 42 U/L (12-78); ALBUMIN 3.6 G/DL (3.4-5.0); ALBUMIN/GLOBULIN RATIO 1.1 (1.0-2.7); ALKALINE PHOSPHATASE 60 U/L (46-116); ANION GAP 4 mmol/L (5-15); ASPARTATE AMINO TRANSFERASE 23 U/L (15-37); BILIRUBIN,TOTAL 0.3 MG/DL (0.2-1.0); BLOOD UREA NITROGEN 28 mg/dL (7-18); CALCIUM 8.8 MG/DL (8.5-10.1); CARBON DIOXIDE 36 MMOL/L (21-32); CHLORIDE 107 MMOL/L (98-107); CREATININE 1.4 MG/DL (0.55-1.30); SODIUM 147 MMOL/L (136-145)
--- NOTE | 2019-04-09 07:15 | NUR ---
HAND-OFF: Report given to Brayan EDMONDS RN.
--- NOTE | 2019-04-09 07:16 | NUR ---
NURSE NOTES: Pt received from Pj Finch rn in stable condition without cardiopulmonary distress. Pt is awake in bed, AAOx4 on 4L O2 via NC. Pt noted Afib on athletic monitor. VS noted and charted. No skin alterations noted except general dryness and bilateral leg edema. Pt has a RAC 20g IV running cardizem at 10cc/hr and a RH 22g IV running Heparin at 11units/kg/hr. Urinal at bedside. Bed in lowest position, alarm on, side rails up x 3, call light within reach. Will continue to monitor pt. Fall precaution education provided and pt agreed to use call light for assistance.
--- NOTE | 2019-04-09 08:18 | NUR ---
NURSE NOTES: Pt's weight recalculated and verified with pharmacy, heparin dose to change to 8 units/kg/hr. New label sent up and rate changed.
--- NOTE | 2019-04-09 08:35 | Consultation ---
Consult Note Consult Note I was asked to eval for rising Cr and BP and electrolyte management currently in ICU on cardiazem drip for At fib with FVR seen examined current conditions: Congestive heart failure, likely diastolic dysfunction. EF 60% Recurrent NSVT. No syncope. Hypertension. Morbid obesity. COPD. Lipidemia. Assessment/Plan elevated Cr likely due to diuresis Obesity , NATASHA AT fib with FVR HTN Keep BP in check Monitor lytes per orders per cardio and pulmonary taper steroids as possible Bebeto Yin MD Apr 09, 2019 08:35
--- NOTE | 2019-04-09 08:57 | NUR ---
NURSE NOTES: Pt C/o of "pain everywhere" 02/10. Morphone 1mg IVP given as per ordered. Will reassess in 30 mins.
[2019-04-09] MEDS: Docusate 100mg cap ORAL SCH ×3 (09:11→17:34)
[2019-04-09] MEDS: Aspirin Baby 81mg ORAL SCH (09:11)
--- NOTE | 2019-04-09 09:15 | NUR ---
NURSE NOTES: Pt noted with EtCO2 at 50-55. RT placed pt on Bipap at this time. Settings charted. Will continue to monitor.
--- NOTE | 2019-04-09 11:24 | NUR ---
NURSE NOTES: Pt currently asleep, no acute distress noted. EtCo2 at 48 on Bipap. Will continue to monitor.
--- NOTE | 2019-04-09 11:58 | NUR ---
NURSE NOTES: Spoke to Stephan from pharmacy regarding new PTT results. Rate will be increased to 12units/kg/hr and new label sent up. Will reorder repeat PTT for 1700.
[2019-04-09] MEDS: Heparin 25,000u/D5W 500ml 500 ML IV SCH ×2 (12:10→14:07)
--- NOTE | 2019-04-09 12:20 | NUR ---
NURSE NOTES: Pt placed on 4L O2 via NC and is having lunch at thi time. Will continue to monitor.
--- NOTE | 2019-04-09 13:20 | NUR ---
CASE MANAGEMENT: REVIEW SI: CHF . COPD . NSVT T 98.1 HR 128 RR 32 BP 138/111 SAT 95% NC/4L WBC 15.3 NA 147 CO2 36 APTT 37 IS: CARDIZEM 125ML GTT LASIX 80MG IV Q12HR HEPARIN GTT SOLU MEDROL 40MG IV Q8HR ALBUTEROL HHN Q4HR ASA PO QD K-DUR 40MEQ BID ICU STATUS DCP: PATIENT IS FROM HOME
--- NOTE | 2019-04-09 13:56 | NUR ---
NURSE NOTES: Pt finished eating and placed back on Bipap per RT at 15/6 with FiO2 of 30%. Will continue to monitor.
[2019-04-09] MEDS ORDERED: NS 275ml ONE (15:44)
--- NOTE | 2019-04-09 16:30 | NUR ---
NURSE NOTES: Pt assisted to bathroom and had 1 BM. pt placed on 2L O2 via NC at this time and is back in bed. Pt educated about 1L fluid restriction and verbalized understanding. Will continue to monitor.
--- NOTE | 2019-04-09 17:03 | General Progress Note ---
Assessment/Plan Problem List: (1) Hypokalemia ICD Codes: E87.6 - Hypokalemia SNOMED: 99405318 (2) CHF (congestive heart failure) ICD Codes: I50.9 - Heart failure, unspecified SNOMED: 68835330 (3) Lower back pain ICD Codes: M54.5 - Low back pain SNOMED: 951498700 Status: progressing, deteriorating Assessment/Plan: chf exacerbation is getting worse not improving lyte abnormality getting worse obesity edema chf Subjective ROS Limited/Unobtainable: Yes Allergies: Coded Allergies: RIVAROXABAN (Verified Allergy, Unknown, 04/05/19) Objective Last 24 Hour Vital Signs Date Time Temp Pulse Resp B/P (MAP) Pulse Ox O2 Delivery O2 Flow Rate FiO2 04/09/19 16:00 98.1 99 24 150/94 (112) 97 04/09/19 16:00 Bi-pap 15.0 04/09/19 15:30 96 24 140/95 (110) 97 04/09/19 15:18 100 20 97 Facial 30 101 21 97 Bi-Pap 30 04/09/19 15:00 94 20 138/89 (105) 96 04/09/19 14:30 97 23 133/75 (94) 97 04/09/19 14:00 95 25 154/98 (116) 97 04/09/19 13:57 30 04/09/19 13:51 100 24 97 Facial 30 04/09/19 13:30 109 22 156/92 (113) 98 04/09/19 13:00 94 31 148/95 (112) 98 04/09/19 12:30 118 26 143/95 (111) 94 04/09/19 12:00 98.4 87 22 140/85 (103) 95 04/09/19 12:00 2.0 04/09/19 12:00 76 04/09/19 11:30 92 23 142/89 (106) 97 04/09/19 11:00 94 30 161/93 (115) 96 04/09/19 10:30 88 24 130/91 (104) 97 04/09/19 10:00 97 23 140/87 (104) 96 04/09/19 09:33 104 20 97 Facial 40 04/09/19 09:30 101 23 150/102 (118) 97 04/09/19 09:15 Bi-pap 15.0 04/09/19 09:15 40 04/09/19 09:00 100 28 137/93 (108) 94 04/09/19 08:30 106 22 144/72 (96) 95 04/09/19 08:15 104 25 133/71 (91) 97 04/09/19 08:00 116 04/09/19 08:00 2.0 04/09/19 08:00 Nasal Cannula 2.0 04/09/19 08:00 98.1 107 32 114/79 (91) 97 04/09/19 07:45 116 24 124/79 (94) 96 04/09/19 07:43 126 23 127/101 (110) 97 04/09/19 07:30 128 25 138/111 (120) 95 04/09/19 07:30 4.0 04/09/19 07:15 95 Nasal Cannula 4.0 36 04/09/19 07:15 93 24 98 Nasal Cannula 4.0 36 113 23 95 04/09/19 07:00 87 28 133/111 (118) 96 04/09/19 06:30 106 28 122/75 (91) 97 04/09/19 06:28 115 133/88 04/09/19 06:00 116 28 147/76 (99) 95 04/09/19 05:30 110 30 152/101 (118) 96 04/09/19 05:00 126 29 138/78 (98) 96 04/09/19 04:30 104 24 133/80 (97) 94 04/09/19 04:15 108 22 140/99 (113) 95 04/09/19 04:00 99.4 109 22 132/79 (96) 98 04/09/19 04:00 4.0 04/09/19 04:00 109 04/09/19 04:00 Nasal Cannula 4.0 04/09/19 03:45 99 24 150/90 (110) 91 04/09/19 03:30 99 26 132/78 (96) 96 04/09/19 03:16 98 21 139/94 (109) 99 04/09/19 03:15 93 24 96 04/09/19 03:09 83 22 98 Nasal Cannula 4.0 36 99 26 93 04/09/19 03:00 93 30 96 04/09/19 02:45 111 27 95 12/7/19 02:30 106 32 95 04/09/19 01:45 96 20 149/93 (111) 99 04/09/19 01:30 101 23 149/83 (105) 97 04/09/19 01:00 104 24 164/116 (132) 97 04/09/19 00:45 91 23 147/105 (119) 94 04/09/19 00:30 101 23 148/76 (100) 94 04/09/19 00:00 Bi-pap 04/09/19 00:00 40 04/09/19 00:00 99.7 104 21 137/96 (110) 94 04/09/19 00:00 104 04/08/19 23:53 98 19 141/89 (106) 95 04/08/19 23:45 105 24 150/90 (110) 97 04/08/19 23:30 105 25 150/91 (110) 99 04/08/19 23:20 120 27 97 Facial 40 100 25 99 Bi-Pap 40 04/08/19 23:00 130 28 136/99 (111) 92 04/08/19 22:52 125 29 134/91 (105) 94 04/08/19 22:45 104 29 93 04/08/19 22:30 102 28 107/81 (90) 97 04/08/19 22:15 118 29 140/95 (110) 97 04/08/19 22:00 120 29 132/102 (112) 96 04/08/19 21:50 106 31 128/78 (95) 96 04/08/19 21:30 146 33 144/105 (118) 92 04/08/19 21:00 128 30 110/91 (97) 95 04/08/19 20:45 134 33 110/72 (85) 94 04/08/19 20:30 146 29 166/106 (126) 94 04/08/19 20:15 99.3 140 30 106/74 (85) 93 04/08/19 20:00 Nasal Cannula 4.0 04/08/19 20:00 136 04/08/19 20:00 136 31 147/115 (126) 93 04/08/19 20:00 4.0 04/08/19 19:56 93 Nasal Cannula 4.0 36 04/08/19 19:56 155 18 93 4.0 36 04/08/19 19:45 139 30 144/105 (118) 93 04/08/19 19:30 143 31 172/154 (160) 93 04/08/19 19:00 146 33 144/105 (118) 92 04/08/19 18:45 138 118/86 04/08/19 17:50 97.6 170 20 144/70 (94) 93 04/08/19 17:14 158/117 04/08/19 17:08 97 Intake and Output 04/08/19 04/09/19 19:00 07:00 Intake Total 1390 ml 1621.727 ml Output Total 3300 ml 3120 ml Balance -1910 ml -1498.273 ml Intake Oral 1390 ml 1260 ml IV Total 361.727 ml Output Urine Total 3300 ml 3120 ml # Voids 2 # Bowel Movements 1 4 Laboratory Tests 04/08/19 20:00: White Blood Count 15.5H, Red Blood Count 5.33, Hemoglobin 13.4L, Hematocrit 41.4L, Mean Corpuscular Volume 78L, Mean Corpuscular Hemoglobin 25.1L, Mean Corpuscular Hemoglobin Concent 32.3, Red Cell Distribution Width 13.9, Platelet Count 263, Mean Platelet Volume 8.7, Neutrophils (%) (Auto) 84.8H, Lymphocytes ( %) (Auto) 9.8L, Monocytes (%) (Auto) 4.3, Eosinophils (%) (Auto) 0.0, Basophils (%) (Auto) 1.1, Activated Partial Thromboplast Time 23 04/09/19 02:36: White Blood Count 15.3H, Red Blood Count 5.19, Hemoglobin 12.9L, Hematocrit 41.6L, Mean Corpuscular Volume 80, Mean Corpuscular Hemoglobin 24.9L, Mean Corpuscular Hemoglobin Concent 31.0L, Red Cell Distribution Width 15.9H, Platelet Count 293, Mean Platelet Volume 9.5, Neutrophils (%) (Auto) , Lymphocytes (%) (Auto) , Monocytes (%) (Auto) , Eosinophils (%) (Auto) , Basophils (%) (Auto) , Activated Partial Thromboplast Time 26, Differential Total Cells Counted 100, Neutrophils % (Manual) 86H, Lymphocytes % (Manual) 9L, Monocytes % (Manual) 5, Eosinophils % (Manual) 0, Basophils % (Manual) 0, Band Neutrophils 0, Platelet Estimate Adequate, Platelet Morphology Normal, Red Blood Cell Morphology Normal, Sodium Level 147H, Potassium Level 4.0, Chloride Level 107, Carbon Dioxide Level 36H, Anion Gap 4L, Blood Urea Nitrogen 28H, Creatinine 1.4H, Estimat Glomerular Filtration Rate 54.1, Glucose Level 170H, Calcium Level 8.8, Total Bilirubin 0.3, Aspartate Amino Transf (AST/SGOT) 23, Alanine Aminotransferase (ALT/SGPT) 42, Alkaline Phosphatase 60, Total Protein 6.9, Albumin 3.6, Globulin 3.3, Albumin/Globulin Ratio 1.1 04/09/19 11:00: Activated Partial Thromboplast Time 37H Height (Feet): 5 Height (Inches): 10.00 Weight (Pounds): 411 Respiratory/Chest: rhonchi - bilaterally Brodie De Jesus MD Apr 09, 2019 17:03
--- NOTE | 2019-04-09 17:11 | NUR ---
NURSE NOTES: Received orders to add Cardizem 90mg PO q6hrs, give first dose now, titrate down cardizem drip to meet HR <90, 12 lead EKG to be done tomorrow AM. Read back given and verified.
--- NOTE | 2019-04-09 17:40 | Cardiac Electrophysiology PN ---
Assessment/Plan Assessment/Plan 1. Congestive heart failure due to diastolic dysfunction. On Lasix 80 mg IV b.i.d.. DC lisinopril 10 mg b.i.d. EF 60% 2. Recurrent NSVT. No syncope. Nl EF. Will schedule for stress test 3. Hypertension. Continue Lasix. DC Lisinopril and Norvasc 10 4. Atrial fib with RVR. Start Cardizem 90 mg po q 6 hrs. 5. Morbid obesity. 6. COPD. On Solu-Medrol and CPAP 7. Lipidemia. On Lipitor. KIAN RN Subjective Subjective Transferred to ICU for atrial fib with RVR. On Cardizem drip now. Had multiple short runs of NSVT again including 6 beats Objective Last 24 Hour Vital Signs Date Time Temp Pulse Resp B/P (MAP) Pulse Ox O2 Delivery O2 Flow Rate FiO2 04/09/19 16:00 98.1 99 24 150/94 (112) 97 04/09/19 16:00 Bi-pap 15.0 04/09/19 15:30 96 24 140/95 (110) 97 04/09/19 15:18 100 20 97 Facial 30 101 21 97 Bi-Pap 30 04/09/19 15:00 94 20 138/89 (105) 96 04/09/19 14:30 97 23 133/75 (94) 97 04/09/19 14:00 95 25 154/98 (116) 97 04/09/19 13:57 30 04/09/19 13:51 100 24 97 Facial 30 04/09/19 13:30 109 22 156/92 (113) 98 04/09/19 13:00 94 31 148/95 (112) 98 04/09/19 12:30 118 26 143/95 (111) 94 04/09/19 12:00 98.4 87 22 140/85 (103) 95 04/09/19 12:00 2.0 04/09/19 12:00 76 04/09/19 11:30 92 23 142/89 (106) 97 04/09/19 11:00 94 30 161/93 (115) 96 04/09/19 10:30 88 24 130/91 (104) 97 04/09/19 10:00 97 23 140/87 (104) 96 04/09/19 09:33 104 20 97 Facial 40 04/09/19 09:30 101 23 150/102 (118) 97 04/09/19 09:15 Bi-pap 15.0 04/09/19 09:15 40 04/09/19 09:00 100 28 137/93 (108) 94 04/09/19 08:30 106 22 144/72 (96) 95 04/09/19 08:15 104 25 133/71 (91) 97 04/09/19 08:00 116 04/09/19 08:00 2.0 04/09/19 08:00 Nasal Cannula 2.0 04/09/19 08:00 98.1 107 32 114/79 (91) 97 04/09/19 07:45 116 24 124/79 (94) 96 04/09/19 07:43 126 23 127/101 (110) 97 04/09/19 07:30 128 25 138/111 (120) 95 04/09/19 07:30 4.0 04/09/19 07:15 95 Nasal Cannula 4.0 36 04/09/19 07:15 93 24 98 Nasal Cannula 4.0 36 113 23 95 04/09/19 07:00 87 28 133/111 (118) 96 04/09/19 06:30 106 28 122/75 (91) 97 04/09/19 06:28 115 133/88 04/09/19 06:00 116 28 147/76 (99) 95 04/09/19 05:30 110 30 152/101 (118) 96 04/09/19 05:00 126 29 138/78 (98) 96 04/09/19 04:30 104 24 133/80 (97) 94 04/09/19 04:15 108 22 140/99 (113) 95 04/09/19 04:00 99.4 109 22 132/79 (96) 98 04/09/19 04:00 4.0 04/09/19 04:00 109 04/09/19 04:00 Nasal Cannula 4.0 04/09/19 03:45 99 24 150/90 (110) 91 04/09/19 03:30 99 26 132/78 (96) 96 04/09/19 03:16 98 21 139/94 (109) 99 04/09/19 03:15 93 24 96 04/09/19 03:09 83 22 98 Nasal Cannula 4.0 36 99 26 93 04/09/19 03:00 93 30 96 04/09/19 02:45 111 27 95 04/09/19 02:30 106 32 95 04/09/19 01:45 96 20 149/93 (111) 99 04/09/19 01:30 101 23 149/83 (105) 97 04/09/19 01:00 104 24 164/116 (132) 97 04/09/19 00:45 91 23 147/105 (119) 94 04/09/19 00:30 101 23 148/76 (100) 94 04/09/19 00:00 Bi-pap 04/09/19 00:00 40 04/09/19 00:00 99.7 104 21 137/96 (110) 94 04/09/19 00:00 104 04/08/19 23:53 98 19 141/89 (106) 95 04/08/19 23:45 105 24 150/90 (110) 97 04/08/19 23:30 105 25 150/91 (110) 99 04/08/19 23:20 120 27 97 Facial 40 100 25 99 Bi-Pap 40 04/08/19 23:00 130 28 136/99 (111) 92 04/08/19 22:52 125 29 134/91 (105) 94 04/08/19 22:45 104 29 93 04/08/19 22:30 102 28 107/81 (90) 97 04/08/19 22:15 118 29 140/95 (110) 97 04/08/19 22:00 120 29 132/102 (112) 96 04/08/19 21:50 106 31 128/78 (95) 96 04/08/19 21:30 146 33 144/105 (118) 92 04/08/19 21:00 128 30 110/91 (97) 95 04/08/19 20:45 134 33 110/72 (85) 94 04/08/19 20:30 146 29 166/106 (126) 94 04/08/19 20:15 99.3 140 30 106/74 (85) 93 04/08/19 20:00 Nasal Cannula 4.0 04/08/19 20:00 136 04/08/19 20:00 136 31 147/115 (126) 93 04/08/19 20:00 4.0 12/6/19 19:56 93 Nasal Cannula 4.0 36 04/08/19 19:56 155 18 93 4.0 36 04/08/19 19:45 139 30 144/105 (118) 93 04/08/19 19:30 143 31 172/154 (160) 93 04/08/19 19:00 146 33 144/105 (118) 92 04/08/19 18:45 138 118/86 04/08/19 17:50 97.6 170 20 144/70 (94) 93 Intake and Output 04/08/19 04/09/19 19:00 07:00 Intake Total 1390 ml 1621.727 ml Output Total 3300 ml 3120 ml Balance -1910 ml -1498.273 ml Intake Oral 1390 ml 1260 ml IV Total 361.727 ml Output Urine Total 3300 ml 3120 ml # Voids 2 # Bowel Movements 1 4 Laboratory Tests Test 04/08/19 20:00 04/09/19 02:36 04/09/19 11:00 White Blood Count 15.5 K/UL (4.8-10.8) H 15.3 K/UL (4.8-10.8) H Red Blood Count 5.33 M/UL (4.70-6.10) 5.19 M/UL (4.70-6.10) Hemoglobin 13.4 G/DL (14.2-18.0) L 12.9 G/DL (14.2-18.0) L Hematocrit 41.4 % (42.0-52.0) L 41.6 % (42.0-52.0) L Mean Corpuscular Volume 78 FL (80-99) L 80 FL (80-99) Mean Corpuscular Hemoglobin 25.1 PG (27.0-31.0) L 24.9 PG (27.0-31.0) L Mean Corpuscular Hemoglobin Concent 32.3 G/DL (32.0-36.0) 31.0 G/DL (32.0-36.0) L Red Cell Distribution Width 13.9 % (11.6-14.8) 15.9 % (11.6-14.8) H Platelet Count 263 K/UL (150-450) 293 K/UL (150-450) Mean Platelet Volume 8.7 FL (6.5-10.1) 9.5 FL (6.5-10.1) Neutrophils (%) (Auto) 84.8 % (45.0-75.0) H % (45.0-75.0) Lymphocytes (%) (Auto) 9.8 % (20.0-45.0) L % (20.0-45.0) Monocytes (%) (Auto) 4.3 % (1.0-10.0) % (1.0-10.0) Eosinophils (%) (Auto) 0.0 % (0.0-3.0) % (0.0-3.0) Basophils (%) (Auto) 1.1 % (0.0-2.0) % (0.0-2.0) Activated Partial Thromboplast Time 23 SEC (23-33) 26 SEC (23-33) 37 SEC (23-33) H Differential Total Cells Counted 100 Neutrophils % (Manual) 86 % (45-75) H Lymphocytes % (Manual) 9 % (20-45) L Monocytes % (Manual) 5 % (1-10) Eosinophils % (Manual) 0 % (0-3) Basophils % (Manual) 0 % (0-2) Band Neutrophils 0 % (0-8) Platelet Estimate Adequate Platelet Morphology Normal Red Blood Cell Morphology Normal Sodium Level 147 MMOL/L (136-145) H Potassium Level 4.0 MMOL/L (3.5-5.1) Chloride Level 107 MMOL/L (98-107) Carbon Dioxide Level 36 MMOL/L (21-32) H Anion Gap 4 mmol/L (5-15) L Blood Urea Nitrogen 28 mg/dL (7-18) H Creatinine 1.4 MG/DL (0.55-1.30) H Estimat Glomerular Filtration Rate 54.1 mL/min (>60) Glucose Level 170 MG/DL (74-106) H Calcium Level 8.8 MG/DL (8.5-10.1) Total Bilirubin 0.3 MG/DL (0.2-1.0) Aspartate Amino Transf (AST/SGOT) 23 U/L (15-37) Alanine Aminotransferase (ALT/SGPT) 42 U/L (12-78) Alkaline Phosphatase 60 U/L (46-116) Total Protein 6.9 G/DL (6.4-8.2) Albumin 3.6 G/DL (3.4-5.0) Globulin 3.3 g/dL Albumin/Globulin Ratio 1.1 (1.0-2.7) Microbiology Date/Time Source Procedure Growth Status 04/08/19 10:50 Sputum Gram Stain - Final Resulted 04/08/19 10:50 Sputum Sputum Culture Pending Resulted Objective HEENT: No JVD. LUNGS: Coarse rhonchi. CARDIOVASCULAR: Irregular S1 and S2 with no gallop or murmur. ABDOMEN: Soft. EXTREMITIES: 3+ pitting edema. Sandor Doll MD Apr 09, 2019 17:40
--- NOTE | 2019-04-09 17:50 | Pulmonology Progress Note ---
Assessment/Plan Assessment/Plan Pulmonary Progress Note HPI The patient is a 48-year-old man with history of obesity and Congestive Heart Failure, admitted with chest pain, shortness of breath, fevera and chills as well as sore throat and ear pain for 3 to 4 days ago. Denies cough or sputum production, vomiting or diarrhea, no Lower extremity swelling. On Diltiazem gtt for Rapid afib Less SOB Past Medical History: Obesity, Congestive Heart Failure, Chronic Obstructive Pulmonary Disease, Diabetes, Hypertension Allergies: RIVAROXABAN All Other Systems: negative except mentioned in HPI Physical Exam Vital Signs Noted Date Time Temp Pulse Resp B/P (MAP) Pulse Ox O2 Delivery O2 Flow Rate FiO2 04/05/19 18:55 98.8 96 16 191/103 (132) 96 Room Air General: Awake and alert, no acute distress HEENT: NC/AT. EOMI. tympanic membranes are erythematous, Pharynx is erythematous , no exudates, moist mm Cardiovascular: RRR. S1 and S2 normal. No murmur appreciated. Mild edema noted Resp: Normal work of breathing. Mild Wheeze. Abdomen: Abdomen is soft, nondistended. Nontender Skin: Intact. No abrasions, laceration or rash over the exposed skin Extremities: Normal tone and bulk. Moving all extremities. No obvious deformity. Neuro: Awake and alert. Mentating appropriately. Impression: Congestive heart failure Viral Illness Chronic Obstructive Pulmonary Disease No focal Infiltrates Obesity Hypertension Diabetes Hypokalemia Plan - Diuresis PRN - IV Solumedrol, wean - HHN - O2 PRN - BiPAP PRN/QHS - PO Doxycycline - ISS - PPX - [employer] Medications Laboratory Tests Test 04/05/19 19:10 White Blood Count 10.6 K/UL (4.8-10.8) Red Blood Count 5.30 M/UL (4.70-6.10) Hemoglobin 13.4 G/DL (14.2-18.0) L Hematocrit 41.2 % (42.0-52.0) L Mean Corpuscular Volume 78 FL (80-99) L Mean Corpuscular Hemoglobin 25.4 PG (27.0-31.0) L Mean Corpuscular Hemoglobin Concent 32.7 G/DL (32.0-36.0) Red Cell Distribution Width 13.6 % (11.6-14.8) Platelet Count 237 K/UL (150-450) Mean Platelet Volume 8.3 FL (6.5-10.1) Neutrophils (%) (Auto) 72.0 % (45.0-75.0) Lymphocytes (%) (Auto) 18.3 % (20.0-45.0) L Monocytes (%) (Auto) 5.7 % (1.0-10.0) Eosinophils (%) (Auto) 2.7 % (0.0-3.0) Basophils (%) (Auto) 1.3 % (0.0-2.0) Sodium Level 147 MMOL/L (136-145) H Potassium Level 2.9 MMOL/L (3.5-5.1) L Chloride Level 104 MMOL/L (98-107) Carbon Dioxide Level 40 MMOL/L (21-32) H Anion Gap 3 mmol/L (5-15) L Blood Urea Nitrogen 9 mg/dL (7-18) Creatinine 1.1 MG/DL (0.55-1.30) Estimate Glomerular Filtration Rate > 60 mL/min (>60) Glucose Level 102 MG/DL (74-106) Calcium Level 8.6 MG/DL (8.5-10.1) Total Bilirubin 0.8 MG/DL (0.2-1.0) Aspartate Amino Transferase (AST) 16 U/L (15-37) Alanine Aminotransferase (ALT) 17 U/L (12-78) Alkaline Phosphatase 74 U/L (46-116) Troponin I 0.021 ng/mL (0.000-0.056) Pro-B-Type Natriuretic Peptide 932 pg/mL (0-125) H Total Protein 7.0 G/DL (6.4-8.2) Albumin 3.6 G/DL (3.4-5.0) Globulin 3.4 g/dL Albumin/Globulin Ratio 1.1 (1.0-2.7) EKG: Sinus rhythm with PACs. No ST segment changes. Normal intervals CXR: no consolidation, other - bilateral pulmonary congestion, questionable effusions. No obvious consolidation Subjective ROS Limited/Unobtainable: No Allergies: Coded Allergies: RIVAROXABAN (Verified Allergy, Unknown, 04/05/19) Objective Last 24 Hour Vital Signs Date Time Temp Pulse Resp B/P (MAP) Pulse Ox O2 Delivery O2 Flow Rate FiO2 12/7/19 17:30 104 27 158/108 (125) 94 04/09/19 17:00 103 28 154/86 (108) 94 04/09/19 16:30 Nasal Cannula 2.0 04/09/19 16:30 23 145/90 (108) 95 04/09/19 16:30 2.0 04/09/19 16:00 98.1 99 24 150/94 (112) 97 04/09/19 16:00 Bi-pap 15.0 04/09/19 15:30 96 24 140/95 (110) 97 04/09/19 15:18 100 20 97 Facial 30 101 21 97 Bi-Pap 30 04/09/19 15:00 94 20 138/89 (105) 96 04/09/19 14:30 97 23 133/75 (94) 97 04/09/19 14:00 95 25 154/98 (116) 97 04/09/19 13:57 30 04/09/19 13:51 100 24 97 Facial 30 04/09/19 13:30 109 22 156/92 (113) 98 04/09/19 13:00 94 31 148/95 (112) 98 04/09/19 12:30 118 26 143/95 (111) 94 04/09/19 12:00 98.4 87 22 140/85 (103) 95 04/09/19 12:00 2.0 04/09/19 12:00 76 04/09/19 11:30 92 23 142/89 (106) 97 04/09/19 11:00 94 30 161/93 (115) 96 04/09/19 10:30 88 24 130/91 (104) 97 04/09/19 10:00 97 23 140/87 (104) 96 04/09/19 09:33 104 20 97 Facial 40 04/09/19 09:30 101 23 150/102 (118) 97 04/09/19 09:15 Bi-pap 15.0 04/09/19 09:15 40 04/09/19 09:00 100 28 137/93 (108) 94 04/09/19 08:30 106 22 144/72 (96) 95 04/09/19 08:15 104 25 133/71 (91) 97 04/09/19 08:00 116 04/09/19 08:00 2.0 12/7/19 08:00 Nasal Cannula 2.0 04/09/19 08:00 98.1 107 32 114/79 (91) 97 04/09/19 07:45 116 24 124/79 (94) 96 04/09/19 07:43 126 23 127/101 (110) 97 04/09/19 07:30 128 25 138/111 (120) 95 04/09/19 07:30 4.0 04/09/19 07:15 95 Nasal Cannula 4.0 36 04/09/19 07:15 93 24 98 Nasal Cannula 4.0 36 113 23 95 04/09/19 07:00 87 28 133/111 (118) 96 04/09/19 06:30 106 28 122/75 (91) 97 04/09/19 06:28 115 133/88 04/09/19 06:00 116 28 147/76 (99) 95 04/09/19 05:30 110 30 152/101 (118) 96 04/09/19 05:00 126 29 138/78 (98) 96 04/09/19 04:30 104 24 133/80 (97) 94 04/09/19 04:15 108 22 140/99 (113) 95 04/09/19 04:00 99.4 109 22 132/79 (96) 98 04/09/19 04:00 4.0 04/09/19 04:00 109 04/09/19 04:00 Nasal Cannula 4.0 04/09/19 03:45 99 24 150/90 (110) 91 04/09/19 03:30 99 26 132/78 (96) 96 04/09/19 03:16 98 21 139/94 (109) 99 04/09/19 03:15 93 24 96 04/09/19 03:09 83 22 98 Nasal Cannula 4.0 36 99 26 93 04/09/19 03:00 93 30 96 04/09/19 02:45 111 27 95 04/09/19 02:30 106 32 95 04/09/19 01:45 96 20 149/93 (111) 99 04/09/19 01:30 101 23 149/83 (105) 97 04/09/19 01:00 104 24 164/116 (132) 97 04/09/19 00:45 91 23 147/105 (119) 94 04/09/19 00:30 101 23 148/76 (100) 94 04/09/19 00:00 Bi-pap 04/09/19 00:00 40 04/09/19 00:00 99.7 104 21 137/96 (110) 94 04/09/19 00:00 104 04/08/19 23:53 98 19 141/89 (106) 95 04/08/19 23:45 105 24 150/90 (110) 97 04/08/19 23:30 105 25 150/91 (110) 99 04/08/19 23:20 120 27 97 Facial 40 100 25 99 Bi-Pap 40 04/08/19 23:00 130 28 136/99 (111) 92 04/08/19 22:52 125 29 134/91 (105) 94 04/08/19 22:45 104 29 93 04/08/19 22:30 102 28 107/81 (90) 97 04/08/19 22:15 118 29 140/95 (110) 97 04/08/19 22:00 120 29 132/102 (112) 96 04/08/19 21:50 106 31 128/78 (95) 96 04/08/19 21:30 146 33 144/105 (118) 92 04/08/19 21:00 128 30 110/91 (97) 95 04/08/19 20:45 134 33 110/72 (85) 94 04/08/19 20:30 146 29 166/106 (126) 94 04/08/19 20:15 99.3 140 30 106/74 (85) 93 04/08/19 20:00 Nasal Cannula 4.0 04/08/19 20:00 136 04/08/19 20:00 136 31 147/115 (126) 93 04/08/19 20:00 4.0 04/08/19 19:56 93 Nasal Cannula 4.0 36 04/08/19 19:56 155 18 93 4.0 36 04/08/19 19:45 139 30 144/105 (118) 93 04/08/19 19:30 143 31 172/154 (160) 93 04/08/19 19:00 146 33 144/105 (118) 92 04/08/19 18:45 138 118/86 04/08/19 17:50 97.6 170 20 144/70 (94) 93 Intake and Output 04/08/19 04/09/19 19:00 07:00 Intake Total 1390 ml 1621.727 ml Output Total 3300 ml 3120 ml Balance -1910 ml -1498.273 ml Intake Oral 1390 ml 1260 ml IV Total 361.727 ml Output Urine Total 3300 ml 3120 ml # Voids 2 # Bowel Movements 1 4 Microbiology Date/Time Source Procedure Growth Status 04/08/19 10:50 Sputum Gram Stain - Final Resulted 04/08/19 10:50 Sputum Sputum Culture Pending Resulted Laboratory Tests 04/08/19 20:00: White Blood Count 15.5H, Red Blood Count 5.33, Hemoglobin 13.4L, Hematocrit 41.4L, Mean Corpuscular Volume 78L, Mean Corpuscular Hemoglobin 25.1L, Mean Corpuscular Hemoglobin Concent 32.3, Red Cell Distribution Width 13.9, Platelet Count 263, Mean Platelet Volume 8.7, Neutrophils (%) (Auto) 84.8H, Lymphocytes ( %) (Auto) 9.8L, Monocytes (%) (Auto) 4.3, Eosinophils (%) (Auto) 0.0, Basophils (%) (Auto) 1.1, Activated Partial Thromboplast Time 23 04/09/19 02:36: White Blood Count 15.3H, Red Blood Count 5.19, Hemoglobin 12.9L, Hematocrit 41.6L, Mean Corpuscular Volume 80, Mean Corpuscular Hemoglobin 24.9L, Mean Corpuscular Hemoglobin Concent 31.0L, Red Cell Distribution Width 15.9H, Platelet Count 293, Mean Platelet Volume 9.5, Neutrophils (%) (Auto) , Lymphocytes (%) (Auto) , Monocytes (%) (Auto) , Eosinophils (%) (Auto) , Basophils (%) (Auto) , Activated Partial Thromboplast Time 26, Differential Total Cells Counted 100, Neutrophils % (Manual) 86H, Lymphocytes % (Manual) 9L, Monocytes % (Manual) 5, Eosinophils % (Manual) 0, Basophils % (Manual) 0, Band Neutrophils 0, Platelet Estimate Adequate, Platelet Morphology Normal, Red Blood Cell Morphology Normal, Sodium Level 147H, Potassium Level 4.0, Chloride Level 107, Carbon Dioxide Level 36H, Anion Gap 4L, Blood Urea Nitrogen 28H, Creatinine 1.4H, Estimat Glomerular Filtration Rate 54.1, Glucose Level 170H, Calcium Level 8.8, Total Bilirubin 0.3, Aspartate Amino Transf (AST/SGOT) 23, Alanine Aminotransferase (ALT/SGPT) 42, Alkaline Phosphatase 60, Total Protein 6.9, Albumin 3.6, Globulin 3.3, Albumin/Globulin Ratio 1.1 04/09/19 11:00: Activated Partial Thromboplast Time 37H Current Medications Medications (Trade) Dose Ordered Sig/David Route PRN Reason Start Time Stop Time Status Last Admin Dose Admin Acetaminophen (Tylenol) 650 mg Q6H PRN ORAL Mild Pain/Temp > 100.5 04/08/19 18:28 05/08/19 18:27 Albuterol/ Ipratropium (Albuterol/ Ipratropium) 3 ml Q4HRT HHN 04/08/19 19:00 04/11/19 02:59 04/09/19 15:18 Aspirin (ASA) 81 mg DAILY ORAL 04/09/19 09:00 05/06/19 08:59 04/09/19 09:11 Atorvastatin Calcium (Lipitor) 40 mg BEDTIME ORAL 04/08/19 21:00 05/06/19 20:59 04/08/19 20:49 Clonidine HCl (Catapres Tab) 0.1 mg Q4H PRN ORAL bp over 165 syst 04/08/19 18:28 05/08/19 18:27 Diltiazem HCl 125 mg/Dextrose 125 ml @ 0 mls/hr Q24H IV 04/08/19 18:27 05/08/19 18:26 04/09/19 06:28 Docusate Sodium (Colace) 100 mg THREE TIMES A DAY ORAL 04/09/19 09:00 05/09/19 08:59 04/09/19 17:34 Furosemide (Lasix) 80 mg Q12HR@0600,1800 IV 04/09/19 06:00 05/08/19 17:59 04/09/19 17:34 Gabapentin (Neurontin) 600 mg BID ORAL 04/09/19 09:00 05/06/19 17:59 04/09/19 17:34 Heparin Sodium/ Dextrose 500 ml @ 44.64 mls/ hr ADJUST PER PROTOCOL IV 04/09/19 12:00 05/09/19 11:59 04/09/19 14:07 Magnesium Sulfate 100 ml @ 100 mls/hr ONCE ONCE IVPB 04/09/19 18:00 04/09/19 18:59 04/09/19 17:34 Methylprednisolone Sodium Succinate (Solu-MEDROL) 40 mg BID IVP 04/10/19 09:00 05/06/19 05:59 Morphine Sulfate (Morphine Sulfate) 1 mg Q6H PRN IVP Breakthrough Pain 04/08/19 18:29 04/15/19 18:28 04/09/19 16:02 Ondansetron HCl (Zofran) 4 mg Q6H PRN IVP Nausea & Vomiting 04/08/19 18:30 05/08/19 18:29 Oxycodone/ Acetaminophen (Percocet 5-325) 1 tab Q4H PRN ORAL Severe Pain (Pain Scale 7-10) 04/08/19 18:29 04/15/19 18:28 Pantoprazole (Protonix) 40 mg EVERY 12 HOURS ORAL 04/09/19 09:00 05/09/19 08:59 04/09/19 09:11 Potassium Chloride (K-Dur) 40 meq BID ORAL 04/09/19 09:00 05/06/19 08:59 04/09/19 17:34 Regadenoson (Lexiscan) 0.4 mg ONCE PRN IV CARDIOLOGY 04/08/19 18:29 04/11/19 23:59 Mahesh Wise MD Apr 09, 2019 17:50
--- NOTE | 2019-04-09 17:57 | NUR ---
NURSE NOTES: Dr. Doll came in to see pt and ordered PO cardizem- pt to be titrated off cardizem drip per Dr. Doll. Blood currently being drawn by lab for scheduled PTT. will continue to monitor.
[2019-04-09] MEDS: dilTIAZem HCl 90mg tab ORAL SCH ×2 (18:11→23:39)
--- NOTE | 2019-04-09 19:03 | NUR ---
NURSE NOTES: Notified pharmacy PTT results=76, per protocol keep rate the same and timed PTT for tomorrow AM.
--- NOTE | 2019-04-09 19:26 | NUR ---
HAND-OFF: Report given to KEESHA Kate. Pt in stable condition.
--- NOTE | 2019-04-09 19:27 | NUR ---
NURSE NOTES: Received patient from KEESHA Tapia RN. Will continue plan of care.
--- NOTE | 2019-04-09 20:00 | NUR ---
NURSE NOTES: Patient is awake, alert and oriented x4. Patient is stable but having SOB. Able to move, turn and reposition himself. New IV inserted 22g in left forearm s/l per request. Bed low and locked. All needs are met.
[2019-04-09] MEDS: Atorvastatin 20mg tab ORAL SCH (20:44)
--- NOTE | 2019-04-09 22:00 | NUR ---
NURSE NOTES: Patient is stable. Able to verbalize needs. Requested to use the restroom; assisted with ambulating to the toilet with IV. All needs are met. Will continue care.
[2019-04-10] VITALS (53 sets, daily range): BP systolic 99–170; BP diastolic 65–126
--- NOTE | 2019-04-10 | NUR ---
NURSE NOTES: Patient is awake and watching tv, states everything is okay at the moment. No changes, will keep monitoring.
[2019-04-10] MEDS: Heparin 25,000u/D5W 500ml 500 ML IV SCH ×5 (00:45→22:22)
--- NOTE | 2019-04-10 02:00 | NUR ---
NURSE NOTES: Patient is stable and placed back onto BiPAP with settings of 15/6 @ 30% and he is now saturating at 95%. Patient stated he was feeling restless but is now better and is able to get some rest. Bed low and locked. No other changes
[2019-04-10] MEDS: Albuterol/Ipratropium 3ml neb HHN SCH ×6 (03:00→22:52)
--- NOTE | 2019-04-10 04:00 | NUR ---
NURSE NOTES: Patient consistently requests for liquids, needed to keep inforcing him that he is on a fluid restriction and that it is not good for him to have much liquids at the moment. Also informed him that the 24 hour liquid restriction has been renewed but we are keeping track of how much intake and that he has about 20 more hours left of the day. Will continue to re-enforce, otherwise no change in condition.
[2019-04-10] MEDS: Morphine Sulfate 2mg/ml Inj(IV/IM USE ONLY) IVP PRN ×3 (04:23→18:38)
[2019-04-10 04:50] LABS: HEMATOCRIT 42.6 % (42.0-52.0); HEMOGLOBIN 13.3 G/DL (14.2-18.0); MEAN CORPUSCULAR VOLUME 79 FL (80-99); PLATELET COUNT 266 K/UL (150-450); RED BLOOD COUNT 5.42 M/UL (4.70-6.10); RED CELL DISTRIBUTION WIDTH 15.1 % (11.6-14.8); WHITE BLOOD COUNT 20.3 K/UL (4.8-10.8)
[2019-04-10 05:11] LABS: ALANINE AMINOTRANSFERASE 38 U/L (12-78); ALBUMIN 3.4 G/DL (3.4-5.0); ALBUMIN/GLOBULIN RATIO 1.1 (1.0-2.7); ALKALINE PHOSPHATASE 63 U/L (46-116); ANION GAP -3 mmol/L (5-15); ASPARTATE AMINO TRANSFERASE 9 U/L (15-37); BILIRUBIN,TOTAL 0.3 MG/DL (0.2-1.0); BLOOD UREA NITROGEN 30 mg/dL (7-18); CALCIUM 8.9 MG/DL (8.5-10.1); CHLORIDE 105 MMOL/L (98-107); CREATININE 1.4 MG/DL (0.55-1.30); GAMMA GLUTAMYL TRANSPEPTIDASE 42 U/L (5-85); PHOSPHORUS 3.3 MG/DL (2.5-4.9); POTASSIUM 3.6 MMOL/L (3.5-5.1); SODIUM 145 MMOL/L (136-145)
[2019-04-10] MEDS ORDERED: Heparin 5000 units/ml inj IV SCH ×2 (05:15→20:45)
[2019-04-10 05:20] LABS: CARBON DIOXIDE 44 MMOL/L (21-32)
[2019-04-10] MEDS: dilTIAZem HCl 90mg tab ORAL SCH ×3 (05:31→17:10)
--- NOTE | 2019-04-10 06:00 | NUR ---
NURSE NOTES: PTT resulted back at 48. Heparin Drip changed to 16units/kg/hr and bolus with max 10,000units IVP. Next PTT will be timed at 1130. Patient is restless, and states that he is frustrated due to the limited liquid amount and all the medication he is taking. Otherwise his condition is stable.
--- NOTE | 2019-04-10 07:20 | NUR ---
HAND-OFF: Report given to KEESHA Keith.
--- NOTE | 2019-04-10 07:25 | NUR ---
NURSE NOTES: Pt received from KEESHA Pearson. Pt is awake in bed, AOx4 on 4L O2 via NC. Pt noted Afib, HR 88, on the monitor worker. No skin alterations noted except general dryness and bilateral leg edema. Pt has a Rt AC #20g IV running Cardizem at 7.5mL/hr and a Rt Hand #22g IV running Heparin at 16units/kg/hr. Lt FA #22g intact and saline locked. Urinal at bedside. Bed in lowest position, alarm on, side rails up x 3, call light within reach. Fall precaution education provided and pt agreed to use call light for assistance. Will resume plan of care.
[2019-04-10] MEDS: Docusate 100mg cap ORAL SCH ×3 (08:48→17:11)
[2019-04-10] MEDS: Aspirin Baby 81mg ORAL SCH (08:48)
[2019-04-10] MEDS: Solu-MEDROL 40mg Inj IVP SCH ×2 (08:49→17:08)
--- NOTE | 2019-04-10 09:30 | NUR ---
NURSE NOTES: Despite continual reinforcement regarding fluid restriction, pt continues to ask for more fluids, expressing his frustration with the 1L restriction. Pt asked for and was given a 2nd breakfast tray d/t still being hungry. Will continue to monitor.
--- NOTE | 2019-04-10 09:45 | Consultation ---
History of Present Illness General Chief Complaint: Flu Like Symptoms Present Illness Allergies: Coded Allergies: RIVAROXABAN (Verified Allergy, Unknown, 04/05/19) Medication History Scheduled Amlodipine Besylate* (Amlodipine Besylate*), 10 MG ORAL DAILY, (Reported) Aspirin* (Aspirin*), 81 MG ORAL DAILY, (Reported) Atorvastatin Calcium* (Atorvastatin Calcium*), 40 MG ORAL BEDTIME, (Reported) Furosemide* (Lasix*), 80 MG ORAL BID, (Reported) Gabapentin* (Gabapentin*), 600 MG ORAL BID, (Reported) Discontinued Medications Apixaban (Eliquis), 5 MG PO, (Reported) Discontinued Reason: Therapy completed Aspirin* (Aspirin*), 81 MG ORAL DAILY, (Reported) Discontinued Reason: Therapy completed Carvedilol* (Carvedilol*), 25 MG ORAL EVERY 12 HOURS, (Reported) Discontinued Reason: Therapy completed Hydralazine Hcl* (Hydralazine Hcl*), 25 MG ORAL EVERY 8 HOURS, (Reported) Discontinued Reason: Therapy completed Hydrocodone Bit/Acetaminophen 5-325* ([place] 5-325*), 1 TAB ORAL Q6H PRN for For Pain Discontinued Reason: Therapy completed Lidocaine Patch* (Lidoderm Patch*), 1 PATCH TOPIC DAILY Discontinued Reason: Therapy completed Methocarbamol* (Robaxin-750*), 750 MG PO TID Discontinued Reason: Therapy completed Omeprazole Magnesium (Prilosec Otc), 20 MG ORAL DAILY, (Reported) Discontinued Reason: Therapy completed Potassium Chloride (Potassium Chloride), 20 MEQ ORAL DAILY, (Reported) Discontinued Reason: Therapy completed Patient History Healthcare decision maker Resuscitation status Full Code Advanced Directive on File Physical Exam Last 24 Hour Vital Signs Date Time Temp Pulse Resp B/P (MAP) Pulse Ox O2 Delivery O2 Flow Rate FiO2 04/10/19 09:30 78 24 94 04/10/19 09:00 81 24 150/92 (111) 94 04/10/19 08:30 84 20 134/73 (93) 94 04/10/19 08:01 84 04/10/19 08:00 4.0 04/10/19 08:00 99.0 87 25 129/69 (89) 94 04/10/19 07:30 95 33 137/72 (93) 94 04/10/19 07:08 96 Nasal Cannula 2.0 28 04/10/19 07:00 89 23 136/85 (102) 98 04/10/19 06:30 81 24 129/71 (90) 95 04/10/19 06:00 105 30 139/92 (108) 95 04/10/19 05:58 Nasal Cannula 2.0 04/10/19 05:36 90 122/75 04/10/19 05:31 84 140/82 04/10/19 05:30 79 24 122/75 (91) 95 04/10/19 05:00 80 28 147/95 (112) 94 04/10/19 04:30 87 30 146/80 (102) 94 04/10/19 04:00 98.7 89 20 149/98 (115) 92 04/10/19 04:00 4.0 04/10/19 03:30 88 23 146/96 (113) 92 04/10/19 03:25 88 04/10/19 03:16 100 23 100 Facial 30 04/10/19 03:00 101 27 140/98 (112) 91 04/10/19 02:30 110 30 153/87 (109) 95 04/10/19 02:00 103 27 131/90 (104) 93 04/10/19 01:30 117 27 144/85 (104) 94 04/10/19 01:00 98 29 138/93 (108) 95 04/10/19 00:30 103 26 156/88 (110) 94 04/10/19 00:00 98.5 102 29 143/90 (107) 94 04/10/19 00:00 4.0 04/10/19 00:00 Nasal Cannula 2.0 04/09/19 23:39 86 153/78 04/09/19 23:34 103 04/09/19 23:30 96 24 153/78 (103) 99 04/09/19 23:20 100 26 100 Nasal Cannula 4.0 36 111 21 94 04/09/19 23:00 108 27 154/85 (108) 95 04/09/19 22:45 98 26 163/97 (119) 93 04/09/19 22:30 98 29 149/86 (107) 93 04/09/19 22:00 121 33 143/98 (113) 88 04/09/19 21:30 98 32 134/86 (102) 96 04/09/19 21:15 101 29 143/94 (110) 95 04/09/19 21:00 101 27 132/80 (97) 95 04/09/19 20:45 106 26 156/87 (110) 92 04/09/19 20:30 103 28 147/79 (101) 88 04/09/19 20:15 107 27 138/83 (101) 92 04/09/19 20:00 Nasal Cannula 2.0 04/09/19 20:00 98.3 119 24 148/95 (112) 94 04/09/19 19:58 117 04/09/19 19:45 99 32 133/87 (102) 94 04/09/19 19:32 101 24 98 Nasal Cannula 4.0 36 114 25 98 04/09/19 19:32 97 Nasal Cannula 4.0 36 04/09/19 19:30 115 24 137/83 (101) 96 04/09/19 19:22 110 139/92 04/09/19 19:00 110 29 156/92 (113) 97 04/09/19 18:36 105 26 143/80 (101) 95 04/09/19 18:11 135 158/108 04/09/19 18:00 93 31 141/109 (120) 96 04/09/19 17:30 104 27 158/108 (125) 94 04/09/19 17:00 103 28 154/86 (108) 94 04/09/19 16:30 Nasal Cannula 2.0 04/09/19 16:30 23 145/90 (108) 95 04/09/19 16:30 2.0 04/09/19 16:00 98.1 99 24 150/94 (112) 97 04/09/19 16:00 132 04/09/19 16:00 Bi-pap 15.0 04/09/19 15:30 96 24 140/95 (110) 97 04/09/19 15:18 100 20 97 Facial 30 101 21 97 Bi-Pap 30 04/09/19 15:00 94 20 138/89 (105) 96 04/09/19 14:30 97 23 133/75 (94) 97 04/09/19 14:00 95 25 154/98 (116) 97 04/09/19 13:57 30 04/09/19 13:51 100 24 97 Facial 30 04/09/19 13:30 109 22 156/92 (113) 98 04/09/19 13:00 94 31 148/95 (112) 98 04/09/19 12:30 118 26 143/95 (111) 94 04/09/19 12:00 98.4 87 22 140/85 (103) 95 04/09/19 12:00 2.0 04/09/19 12:00 76 04/09/19 11:30 92 23 142/89 (106) 97 04/09/19 11:00 94 30 161/93 (115) 96 04/09/19 10:30 88 24 130/91 (104) 97 04/09/19 10:00 97 23 140/87 (104) 96 Intake and Output 04/09/19 04/10/19 19:00 07:00 Intake Total 1157.9227 ml 924.18 ml Output Total 2700 ml 900 ml Balance -1542.0773 ml 24.18 ml Intake Oral 480 ml 500 ml IV Total 677.9227 ml 424.18 ml Output Urine Total 2700 ml 900 ml # Voids 1 # Bowel Movements 4 5 Laboratory Tests Test 04/09/19 11:00 04/09/19 18:20 04/10/19 04:14 Activated Partial Thromboplast Time 37 SEC (23-33) H 77 SEC (23-33) H 48 SEC (23-33) H White Blood Count 20.3 K/UL (4.8-10.8) H Red Blood Count 5.42 M/UL (4.70-6.10) Hemoglobin 13.3 G/DL (14.2-18.0) L Hematocrit 42.6 % (42.0-52.0) Mean Corpuscular Volume 79 FL (80-99) L Mean Corpuscular Hemoglobin 24.5 PG (27.0-31.0) L Mean Corpuscular Hemoglobin Concent 31.2 G/DL (32.0-36.0) L Red Cell Distribution Width 15.1 % (11.6-14.8) H Platelet Count 266 K/UL (150-450) Mean Platelet Volume 9.1 FL (6.5-10.1) Neutrophils (%) (Auto) % (45.0-75.0) Lymphocytes (%) (Auto) % (20.0-45.0) Monocytes (%) (Auto) % (1.0-10.0) Eosinophils (%) (Auto) % (0.0-3.0) Basophils (%) (Auto) % (0.0-2.0) Differential Total Cells Counted 100 Neutrophils % (Manual) 70 % (45-75) Lymphocytes % (Manual) 15 % (20-45) L Monocytes % (Manual) 15 % (1-10) H Eosinophils % (Manual) 0 % (0-3) Basophils % (Manual) 0 % (0-2) Band Neutrophils 0 % (0-8) Platelet Estimate Adequate Platelet Morphology Normal Sodium Level 145 MMOL/L (136-145) Potassium Level 3.6 MMOL/L (3.5-5.1) Chloride Level 105 MMOL/L (98-107) Carbon Dioxide Level 44 MMOL/L (21-32) *H Anion Gap -3 mmol/L (5-15) L Blood Urea Nitrogen 30 mg/dL (7-18) H Creatinine 1.4 MG/DL (0.55-1.30) H Estimat Glomerular Filtration Rate 54.1 mL/min (>60) Glucose Level 189 MG/DL (74-106) H Calcium Level 8.9 MG/DL (8.5-10.1) Phosphorus Level 3.3 MG/DL (2.5-4.9) Magnesium Level 2.1 MG/DL (1.8-2.4) Total Bilirubin 0.3 MG/DL (0.2-1.0) Gamma Glutamyl Transpeptidase 42 U/L (5-85) Aspartate Amino Transf (AST/SGOT) 9 U/L (15-37) L Alanine Aminotransferase (ALT/SGPT) 38 U/L (12-78) Alkaline Phosphatase 63 U/L (46-116) C-Reactive Protein, Quantitative 0.9 mg/dL (0.00-0.90) Pro-B-Type Natriuretic Peptide 1183 pg/mL (0-125) H Total Protein 6.6 G/DL (6.4-8.2) Albumin 3.4 G/DL (3.4-5.0) Globulin 3.2 g/dL Albumin/Globulin Ratio 1.1 (1.0-2.7) Vitamin B12 Level 226 PG/ML (193-986) Free Thyroxine 1.05 NG/DL (0.76-1.46) Free Triiodothyronine 2.1 pg/mL (2.3-4.2) L Height (Feet): 5 Height (Inches): 10.00 Weight (Pounds): 411 Medications Current Medications Medications (Trade) Dose Ordered Sig/David Route PRN Reason Start Time Stop Time Status Last Admin Dose Admin Acetaminophen (Tylenol) 650 mg Q6H PRN ORAL Mild Pain/Temp > 100.5 04/08/19 18:28 05/08/19 18:27 Albuterol/ Ipratropium (Albuterol/ Ipratropium) 3 ml Q4HRT HHN 04/08/19 19:00 04/11/19 02:59 04/09/19 23:20 Aspirin (ASA) 81 mg DAILY ORAL 04/09/19 09:00 05/06/19 08:59 04/10/19 08:48 Atorvastatin Calcium (Lipitor) 40 mg BEDTIME ORAL 04/08/19 21:00 05/06/19 20:59 04/09/19 20:44 Clonidine HCl (Catapres Tab) 0.1 mg Q4H PRN ORAL bp over 165 syst 04/08/19 18:28 05/08/19 18:27 Diltiazem HCl (Cardizem) 90 mg EVERY 6 HOURS ORAL 04/09/19 18:00 05/09/19 17:59 04/10/19 05:31 Diltiazem HCl 125 mg/Dextrose 125 ml @ 0 mls/hr Q24H IV 04/08/19 18:27 05/08/19 18:26 04/10/19 05:36 Docusate Sodium (Colace) 100 mg THREE TIMES A DAY ORAL 04/09/19 09:00 05/09/19 08:59 04/10/19 08:48 Furosemide (Lasix) 80 mg Q12HR@0600,1800 IV 04/09/19 06:00 05/08/19 17:59 04/10/19 05:31 Gabapentin (Neurontin) 600 mg BID ORAL 04/09/19 09:00 05/06/19 17:59 04/10/19 08:49 Heparin Sodium/ Dextrose 500 ml @ 59.52 mls/ hr ADJUST PER PROTOCOL IV 04/10/19 05:15 05/10/19 05:14 04/10/19 05:30 Methylprednisolone Sodium Succinate (Solu-MEDROL) 40 mg BID IVP 04/10/19 09:00 05/06/19 05:59 04/10/19 08:49 Morphine Sulfate (Morphine Sulfate) 1 mg Q6H PRN IVP Breakthrough Pain 04/08/19 18:29 04/15/19 18:28 04/10/19 04:23 Ondansetron HCl (Zofran) 4 mg Q6H PRN IVP Nausea & Vomiting 04/08/19 18:30 05/08/19 18:29 Oxycodone/ Acetaminophen (Percocet 5-325) 1 tab Q4H PRN ORAL Severe Pain (Pain Scale 7-10) 04/08/19 18:29 04/15/19 18:28 04/10/19 01:46 Pantoprazole (Protonix) 40 mg EVERY 12 HOURS ORAL 04/09/19 09:00 05/09/19 08:59 04/10/19 08:49 Potassium Chloride (K-Dur) 40 meq BID ORAL 04/09/19 09:00 05/06/19 08:59 04/10/19 08:49 Regadenoson (Lexiscan) 0.4 mg ONCE PRN IV CARDIOLOGY 04/08/19 18:29 04/11/19 23:59 Assessment/Plan Assessment/Plan: Hematology Consultation REQ MD: Brodie Fall RFC: Hypercoag disorder and high wbc DOS: 04/10/19 HPI: 48-year-old male history of obesity and CHF presents for evaluation of chest pain, shortness of breath, sore throat and ear pain. Symptoms began 3 to 4 days ago. He notes bilateral ear fullness and decreased hearing without effusion. He reports subjective fevers and chills as well as a sore throat and chest discomfort. He reports some pressure over the chest and some difficulty breathing. Denies cough or sputum production. Denies vomiting or diarrhea. Did not receive a flu shot this year. Denies lower extremity edema. Has been compliant with his medications otherwise. On iduresis per renal/cards, as well as steriods per pulm, currently still overloaded, also in icu on a heparin gtt. PMH: Obesity, CHF, DM2 PSH: Reviewed Allergies: Denies Social Hx: Non-smoker Allergies: Coded Allergies: RIVAROXABAN (Verified Allergy, Unknown, 04/05/19) Review of Systems: negative except mentioned in HPI Physical Exam General: Awake and alert, nad HEENT: NC/AT. EOMI. tympanic membranes are deeply erythematous though nonbulging , no effusion Cardiovascular: RRR. S1 and S2 normal. No murmur appreciated Resp: Normal work of breathing. No cough, wheezing or crackles appreciated Abdomen: Abdomen is soft, nondistended. Nontender Skin: Intact. No abrasions, laceration or rash over the exposed skin MSK: Normal tone and bulk. Moving all extremities. No obvious deformity. Ext: 1+ edema Labs: reviewed Imaging: noted Assessment and Recs: # Secondary hypercoagulable disorder, has afib with rvr, w/u as per cards --> continue on heparin gtt at this time --> cardizem po started for rhythm control --> per cards, likely to need noac v coumadin as outpatient # Leukocytosis is likely due to steriod use --> wbc trend 15-->20k --> steriod taper --> abx as per id # Hypokalemia --> per renal, replete k --> diuresis # CHF (congestive heart failure) --> on lasix bid dosing, per cards # Obesity --> weight loss recommended --> lifestyle modification KIAN Rn and appreciate consultation. Harsh Lehman MD Apr 10, 2019 09:45
--- NOTE | 2019-04-10 10:23 | NUR ---
RD ASSESSMENT & RECOMMENDATIONS SEE CARE ACTIVITY FOR COMPLETE ASSESSMENT DAILY ESTIMATED NEEDS: Needs based on Cardiac, Pulmonary, morbid obese; 103kg adj 20-25 kcals/kg 2060- 2575 total kcals 1-1.5 g protein/kg 103- 155 g total protein Fluid per MD- CHF on lasix NUTRITION DIAGNOSIS: Decreased kcal, fat and sodium needs r/t obesity and CHF AEB pt is 248% of [place] Body Weight, morbidly obese per guidelines, elev BNP (1183), elev LDL (112), edematous, elev BP (150/92). CURRENT DIET:Cardiac PO DIET RECOMMENDATIONS: Cardiac + fluid per MD ADDITIONAL RECOMMENDATIONS: 1) Daily weights; pt w/ CHF, on lasix 2) monitor lytes daily- on lasix 3) monitor BG values- on solumedrol -> rec A1C for eval/ need for CCHO diet 4) 1L fluid restriction per MD
--- NOTE | 2019-04-10 10:30 | NUR ---
NURSE NOTES: PT C/O STABBING AND THROBBING GENERALIZED PAIN (9/10). Given Morphine 1mg IVP. Will reassess in 30 mins.
--- NOTE | 2019-04-10 10:46 | Nephrology Progress Note ---
Assessment/Plan Problem List: (1) Hypokalemia (2) CHF (congestive heart failure) (3) Renal failure (4) Obesity, morbid, BMI 50 or higher (5) CO2 retention (6) COPD (chronic obstructive pulmonary disease) Assessment elevated Cr likely due to diuresis Obesity , NATASHA AT fib with FVR HTN Congestive heart failure, likely diastolic dysfunction. EF 60% Recurrent NSVT. No syncope. Hypertension. Morbid obesity. COPD. Lipidemia. Plan Keep BP in check Monitor lytes B12 and Folic acid Diamox PO per orders per cardio and pulmonary taper steroids as possible Subjective ROS Limited/Unobtainable: No Constitutional: Reports: malaise, weakness Objective Objective Last 24 Hour Vital Signs Date Time Temp Pulse Resp B/P (MAP) Pulse Ox O2 Delivery O2 Flow Rate FiO2 04/10/19 10:33 75 22 99 Nasal Cannula 2.0 28 88 14 94 04/10/19 10:30 88 21 152/91 (111) 96 04/10/19 10:00 77 23 138/83 (101) 92 04/10/19 09:30 78 24 94 04/10/19 09:00 81 24 150/92 (111) 94 04/10/19 08:30 84 20 134/73 (93) 94 04/10/19 08:01 84 04/10/19 08:00 4.0 04/10/19 08:00 99.0 87 25 129/69 (89) 94 04/10/19 07:30 95 33 137/72 (93) 94 04/10/19 07:08 96 Nasal Cannula 2.0 28 04/10/19 07:00 89 23 136/85 (102) 98 04/10/19 06:30 81 24 129/71 (90) 95 04/10/19 06:00 105 30 139/92 (108) 95 04/10/19 05:58 Nasal Cannula 2.0 04/10/19 05:36 90 122/75 04/10/19 05:31 84 140/82 04/10/19 05:30 79 24 122/75 (91) 95 04/10/19 05:00 80 28 147/95 (112) 94 04/10/19 04:30 87 30 146/80 (102) 94 04/10/19 04:00 98.7 89 20 149/98 (115) 92 04/10/19 04:00 4.0 04/10/19 03:30 88 23 146/96 (113) 92 04/10/19 03:25 88 04/10/19 03:16 100 23 100 Facial 30 04/10/19 03:00 101 27 140/98 (112) 91 04/10/19 02:30 110 30 153/87 (109) 95 04/10/19 02:00 103 27 131/90 (104) 93 04/10/19 01:30 117 27 144/85 (104) 94 04/10/19 01:00 98 29 138/93 (108) 95 04/10/19 00:30 103 26 156/88 (110) 94 04/10/19 00:00 98.5 102 29 143/90 (107) 94 04/10/19 00:00 4.0 04/10/19 00:00 Nasal Cannula 2.0 04/09/19 23:39 86 153/78 04/09/19 23:34 103 04/09/19 23:30 96 24 153/78 (103) 99 04/09/19 23:20 100 26 100 Nasal Cannula 4.0 36 111 21 94 04/09/19 23:00 108 27 154/85 (108) 95 04/09/19 22:45 98 26 163/97 (119) 93 04/09/19 22:30 98 29 149/86 (107) 93 04/09/19 22:00 121 33 143/98 (113) 88 04/09/19 21:30 98 32 134/86 (102) 96 04/09/19 21:15 101 29 143/94 (110) 95 04/09/19 21:00 101 27 132/80 (97) 95 04/09/19 20:45 106 26 156/87 (110) 92 04/09/19 20:30 103 28 147/79 (101) 88 04/09/19 20:15 107 27 138/83 (101) 92 04/09/19 20:00 Nasal Cannula 2.0 04/09/19 20:00 98.3 119 24 148/95 (112) 94 04/09/19 19:58 117 04/09/19 19:45 99 32 133/87 (102) 94 04/09/19 19:32 101 24 98 Nasal Cannula 4.0 36 114 25 98 04/09/19 19:32 97 Nasal Cannula 4.0 36 04/09/19 19:30 115 24 137/83 (101) 96 04/09/19 19:22 110 139/92 04/09/19 19:00 110 29 156/92 (113) 97 04/09/19 18:36 105 26 143/80 (101) 95 04/09/19 18:11 135 158/108 04/09/19 18:00 93 31 141/109 (120) 96 04/09/19 17:30 104 27 158/108 (125) 94 04/09/19 17:00 103 28 154/86 (108) 94 04/09/19 16:30 Nasal Cannula 2.0 04/09/19 16:30 23 145/90 (108) 95 04/09/19 16:30 2.0 04/09/19 16:00 98.1 99 24 150/94 (112) 97 04/09/19 16:00 132 04/09/19 16:00 Bi-pap 15.0 04/09/19 15:30 96 24 140/95 (110) 97 04/09/19 15:18 100 20 97 Facial 30 101 21 97 Bi-Pap 30 04/09/19 15:00 94 20 138/89 (105) 96 04/09/19 14:30 97 23 133/75 (94) 97 04/09/19 14:00 95 25 154/98 (116) 97 04/09/19 13:57 30 04/09/19 13:51 100 24 97 Facial 30 04/09/19 13:30 109 22 156/92 (113) 98 04/09/19 13:00 94 31 148/95 (112) 98 04/09/19 12:30 118 26 143/95 (111) 94 04/09/19 12:00 98.4 87 22 140/85 (103) 95 04/09/19 12:00 2.0 04/09/19 12:00 76 04/09/19 11:30 92 23 142/89 (106) 97 04/09/19 11:00 94 30 161/93 (115) 96 Intake and Output 04/09/19 04/10/19 19:00 07:00 Intake Total 1157.9227 ml 924.18 ml Output Total 2700 ml 900 ml Balance -1542.0773 ml 24.18 ml Intake Oral 480 ml 500 ml IV Total 677.9227 ml 424.18 ml Output Urine Total 2700 ml 900 ml # Voids 1 # Bowel Movements 4 5 Laboratory Tests 04/09/19 11:00: Activated Partial Thromboplast Time 37H 04/09/19 18:20: Activated Partial Thromboplast Time 77H 04/10/19 04:14: Activated Partial Thromboplast Time 48H, White Blood Count 20.3H, Red Blood Count 5.42, Hemoglobin 13.3L, Hematocrit 42.6, Mean Corpuscular Volume 79L, Mean Corpuscular Hemoglobin 24.5L, Mean Corpuscular Hemoglobin Concent 31.2L, Red Cell Distribution Width 15.1H, Platelet Count 266, Mean Platelet Volume 9.1 , Neutrophils (%) (Auto) , Lymphocytes (%) (Auto) , Monocytes (%) (Auto) , Eosinophils (%) (Auto) , Basophils (%) (Auto) , Differential Total Cells Counted 100, Neutrophils % (Manual) 70, Lymphocytes % (Manual) 15L, Monocytes % (Manual) 15H, Eosinophils % (Manual) 0, Basophils % (Manual) 0, Band Neutrophils 0, Platelet Estimate Adequate, Platelet Morphology Normal, Sodium Level 145, Potassium Level 3.6, Chloride Level 105, Carbon Dioxide Level 44*H, Anion Gap -3L, Blood Urea Nitrogen 30H, Creatinine 1.4H, Estimat Glomerular Filtration Rate 54.1, Glucose Level 189H, Calcium Level 8.9, Phosphorus Level 3.3, Magnesium Level 2.1, Total Bilirubin 0.3, Gamma Glutamyl Transpeptidase 42 , Aspartate Amino Transf (AST/SGOT) 9L, Alanine Aminotransferase (ALT/SGPT) 38, Alkaline Phosphatase 63, C-Reactive Protein, Quantitative 0.9, Pro-B-Type Natriuretic Peptide 1183H, Total Protein 6.6, Albumin 3.4, Globulin 3.2, Albumin /Globulin Ratio 1.1, Vitamin B12 Level 226, Free Thyroxine 1.05, Free Triiodothyronine 2.1L Height (Feet): 5 Height (Inches): 10.00 Weight (Pounds): 411 General Appearance: mild distress Cardiovascular: normal rate Respiratory/Chest: decreased breath sounds Abdomen: other - obese Bebeto Yin MD Apr 10, 2019 10:46
[2019-04-10] MEDS ORDERED: Vitamin B12 1000mcg/ml Inj IM ONE (12:00)
--- NOTE | 2019-04-10 12:10 | NUR ---
NURSE NOTES: Dr Yin was on the unit assessing pt. Updated him on pt's current condition. New orders received, noted, and carried out. No distress noted at this time. Pt is observed in bed, eating lunch. Pt maintained on Cardizem and Heparin drips. Will continue to monitor.
--- NOTE | 2019-04-10 12:54 | General Progress Note ---
Assessment/Plan Assessment/Plan: (1) Lumbar DDD (2) Lumbar Spondylosis (3) Morbid obesity Patient to be continued on Percocet and Morphine Parameters will be started to HOLD OPIOIDS FOR OVERSEDATION OR LETHARGY OR SBP<90 OR DBP<60 OR RR<12 OR O2SAT<92% D/w Dr. Stack and he concurred. Subjective Date patient seen: Apr 10, 2019 Time patient seen: 12:30 - pm Allergies: Coded Allergies: RIVAROXABAN (Verified Allergy, Unknown, 04/05/19) Subjective REVIEW OF SYSTEMS: Denies rash, fever, chills at this time, sweating, dizziness, drowsiness, blurred vision, sore throat, change in weight. No nausea, vomiting, diarrhea, or blood in the stool or urine. No dysuria. He is complaining of low back pain. SUBJECTIVE: Patient transferred to ICU due to worsening CHF. He was started on Morphine 1mg IV Q6H PRN breakthrough pain due to severe pain. His pain has been reduced on the Morphine and Percocet. Objective Last 24 Hour Vital Signs Date Time Temp Pulse Resp B/P (MAP) Pulse Ox O2 Delivery O2 Flow Rate FiO2 04/10/19 12:16 108 137/78 04/10/19 12:00 99.0 98 29 137/78 (97) 92 04/10/19 12:00 4.0 04/10/19 11:30 103 28 132/83 (99) 95 04/10/19 11:00 84 27 137/87 (104) 90 04/10/19 10:33 75 22 99 Nasal Cannula 2.0 28 88 14 94 04/10/19 10:30 88 21 152/91 (111) 96 04/10/19 10:00 77 23 138/83 (101) 92 04/10/19 09:30 78 24 94 04/10/19 09:00 81 24 150/92 (111) 94 04/10/19 08:30 84 20 134/73 (93) 94 04/10/19 08:01 84 04/10/19 08:00 4.0 04/10/19 08:00 99.0 87 25 129/69 (89) 94 04/10/19 07:30 95 33 137/72 (93) 94 04/10/19 07:08 96 Nasal Cannula 2.0 28 04/10/19 07:00 89 23 136/85 (102) 98 04/10/19 06:30 81 24 129/71 (90) 95 04/10/19 06:00 105 30 139/92 (108) 95 04/10/19 05:58 Nasal Cannula 2.0 04/10/19 05:36 90 122/75 04/10/19 05:31 84 140/82 04/10/19 05:30 79 24 122/75 (91) 95 04/10/19 05:00 80 28 147/95 (112) 94 04/10/19 04:30 87 30 146/80 (102) 94 04/10/19 04:00 98.7 89 20 149/98 (115) 92 04/10/19 04:00 4.0 04/10/19 03:30 88 23 146/96 (113) 92 04/10/19 03:25 88 04/10/19 03:16 100 23 100 Facial 30 04/10/19 03:00 101 27 140/98 (112) 91 04/10/19 02:30 110 30 153/87 (109) 95 04/10/19 02:00 103 27 131/90 (104) 93 04/10/19 01:30 117 27 144/85 (104) 94 04/10/19 01:00 98 29 138/93 (108) 95 04/10/19 00:30 103 26 156/88 (110) 94 04/10/19 00:00 98.5 102 29 143/90 (107) 94 04/10/19 00:00 4.0 04/10/19 00:00 Nasal Cannula 2.0 04/09/19 23:39 86 153/78 04/09/19 23:34 103 04/09/19 23:30 96 24 153/78 (103) 99 04/09/19 23:20 100 26 100 Nasal Cannula 4.0 36 111 21 94 04/09/19 23:00 108 27 154/85 (108) 95 04/09/19 22:45 98 26 163/97 (119) 93 04/09/19 22:30 98 29 149/86 (107) 93 04/09/19 22:00 121 33 143/98 (113) 88 04/09/19 21:30 98 32 134/86 (102) 96 04/09/19 21:15 101 29 143/94 (110) 95 04/09/19 21:00 101 27 132/80 (97) 95 04/09/19 20:45 106 26 156/87 (110) 92 04/09/19 20:30 103 28 147/79 (101) 88 04/09/19 20:15 107 27 138/83 (101) 92 04/09/19 20:00 Nasal Cannula 2.0 04/09/19 20:00 98.3 119 24 148/95 (112) 94 04/09/19 19:58 117 04/09/19 19:45 99 32 133/87 (102) 94 04/09/19 19:32 101 24 98 Nasal Cannula 4.0 36 114 25 98 04/09/19 19:32 97 Nasal Cannula 4.0 36 04/09/19 19:30 115 24 137/83 (101) 96 04/09/19 19:22 110 139/92 04/09/19 19:00 110 29 156/92 (113) 97 04/09/19 18:36 105 26 143/80 (101) 95 04/09/19 18:11 135 158/108 04/09/19 18:00 93 31 141/109 (120) 96 04/09/19 17:30 104 27 158/108 (125) 94 04/09/19 17:00 103 28 154/86 (108) 94 04/09/19 16:30 Nasal Cannula 2.0 04/09/19 16:30 23 145/90 (108) 95 04/09/19 16:30 2.0 04/09/19 16:00 98.1 99 24 150/94 (112) 97 04/09/19 16:00 132 04/09/19 16:00 Bi-pap 15.0 04/09/19 15:30 96 24 140/95 (110) 97 04/09/19 15:18 100 20 97 Facial 30 101 21 97 Bi-Pap 30 04/09/19 15:00 94 20 138/89 (105) 96 04/09/19 14:30 97 23 133/75 (94) 97 04/09/19 14:00 95 25 154/98 (116) 97 04/09/19 13:57 30 04/09/19 13:51 100 24 97 Facial 30 04/09/19 13:30 109 22 156/92 (113) 98 04/09/19 13:00 94 31 148/95 (112) 98 Intake and Output 04/09/19 04/10/19 19:00 07:00 Intake Total 1157.9227 ml 924.18 ml Output Total 2700 ml 900 ml Balance -1542.0773 ml 24.18 ml Intake Oral 480 ml 500 ml IV Total 677.9227 ml 424.18 ml Output Urine Total 2700 ml 900 ml # Voids 1 # Bowel Movements 4 5 Laboratory Tests 04/09/19 18:20: Activated Partial Thromboplast Time 77H 04/10/19 04:14: Activated Partial Thromboplast Time 48H, White Blood Count 20.3H, Red Blood Count 5.42, Hemoglobin 13.3L, Hematocrit 42.6, Mean Corpuscular Volume 79L, Mean Corpuscular Hemoglobin 24.5L, Mean Corpuscular Hemoglobin Concent 31.2L, Red Cell Distribution Width 15.1H, Platelet Count 266, Mean Platelet Volume 9.1 , Neutrophils (%) (Auto) , Lymphocytes (%) (Auto) , Monocytes (%) (Auto) , Eosinophils (%) (Auto) , Basophils (%) (Auto) , Differential Total Cells Counted 100, Neutrophils % (Manual) 70, Lymphocytes % (Manual) 15L, Monocytes % (Manual) 15H, Eosinophils % (Manual) 0, Basophils % (Manual) 0, Band Neutrophils 0, Platelet Estimate Adequate, Platelet Morphology Normal, Sodium Level 145, Potassium Level 3.6, Chloride Level 105, Carbon Dioxide Level 44*H, Anion Gap -3L, Blood Urea Nitrogen 30H, Creatinine 1.4H, Estimat Glomerular Filtration Rate 54.1, Glucose Level 189H, Calcium Level 8.9, Phosphorus Level 3.3, Magnesium Level 2.1, Total Bilirubin 0.3, Gamma Glutamyl Transpeptidase 42 , Aspartate Amino Transf (AST/SGOT) 9L, Alanine Aminotransferase (ALT/SGPT) 38, Alkaline Phosphatase 63, C-Reactive Protein, Quantitative 0.9, Pro-B-Type Natriuretic Peptide 1183H, Total Protein 6.6, Albumin 3.4, Globulin 3.2, Albumin /Globulin Ratio 1.1, Vitamin B12 Level 226, Folate 5.3L, Free Thyroxine 1.05, Free Triiodothyronine 2.1L 04/10/19 11:40: Activated Partial Thromboplast Time [Pending] Height (Feet): 5 Height (Inches): 10.00 Weight (Pounds): 411 Objective GENERAL: Alert, awake, and oriented. LUNGS: Decreased breath sounds bilaterally. HEART: S1 and S2 regular. ABDOMEN: Obese.. EXTREMITIES: No cyanosis. No clubbing. NEURO: No changes. Osito Sultana Apr 10, 2019 12:54
--- NOTE | 2019-04-10 13:30 | NUR ---
NURSE NOTES: Received call from the Lab, spoke to Maxi, informing story writer of PTT >150. Pharmacy notified. Advised to hold Heparin drip for 1 hour and then decrease to 12 units/kg/hr. Repeat PTT ordered for 19:30.
[2019-04-10] MEDS ORDERED: Heparin 25,000u/D5W 500ml 500 ML IV SCH (14:30)
--- NOTE | 2019-04-10 16:00 | NUR ---
NURSE NOTES: Helped pt with a bed bath. Pt is able to ambulate to the restroom to have a BM with staff's assistance. Steady gait noted. Will continue to monitor.
--- NOTE | 2019-04-10 16:19 | Cardiac Electrophysiology PN ---
Assessment/Plan Assessment/Plan 1. Congestive heart failure due to diastolic dysfunction. On Lasix 80 mg IV b.i.d. EF 60% 2. Recurrent NSVT. No syncope. Nl EF. Will schedule for stress test 3. Hypertension. Continue Lasix and Cardizem 4. Atrial fib with RVR. On Cardizem 90 mg po q 6 hrs. Add Digoxin 0.25 po daily after loading with iv Dig 0.5 5. Morbid obesity. 6. COPD. On Solu-Medrol and CPAP 7. Lipidemia. On Lipitor. KIAN RN Subjective Subjective In ICU for atrial fib with RVR. On Cardizem drip 7.5 now. No more VT Objective Last 24 Hour Vital Signs Date Time Temp Pulse Resp B/P (MAP) Pulse Ox O2 Delivery O2 Flow Rate FiO2 04/10/19 16:00 4.0 04/10/19 15:30 81 22 126/77 (93) 95 04/10/19 15:15 79 12 99 Nasal Cannula 2.0 28 82 22 95 04/10/19 15:15 81 19 126/77 (93) 95 04/10/19 15:00 112 22 126/77 (93) 95 04/10/19 14:30 87 26 117/66 (83) 93 04/10/19 14:00 91 22 122/69 (86) 93 04/10/19 13:30 92 28 114/68 (83) 91 04/10/19 13:00 106 29 134/76 (95) 88 04/10/19 12:30 99 26 143/87 (105) 92 04/10/19 12:16 108 137/78 04/10/19 12:00 98.5 98 29 137/78 (97) 92 04/10/19 12:00 93 04/10/19 12:00 4.0 04/10/19 11:30 103 28 132/83 (99) 95 04/10/19 11:00 84 27 137/87 (104) 90 04/10/19 10:33 75 22 99 Nasal Cannula 2.0 28 88 14 94 04/10/19 10:30 88 21 152/91 (111) 96 04/10/19 10:00 77 23 138/83 (101) 92 04/10/19 09:30 78 24 94 04/10/19 09:00 81 24 150/92 (111) 94 04/10/19 08:30 84 20 134/73 (93) 94 04/10/19 08:01 84 04/10/19 08:00 4.0 04/10/19 08:00 99.0 87 25 129/69 (89) 94 04/10/19 07:30 95 33 137/72 (93) 94 04/10/19 07:08 96 Nasal Cannula 2.0 28 04/10/19 07:00 89 23 136/85 (102) 98 04/10/19 06:30 81 24 129/71 (90) 95 04/10/19 06:00 105 30 139/92 (108) 95 04/10/19 05:58 Nasal Cannula 2.0 04/10/19 05:36 90 122/75 04/10/19 05:31 84 140/82 04/10/19 05:30 79 24 122/75 (91) 95 04/10/19 05:00 80 28 147/95 (112) 94 04/10/19 04:30 87 30 146/80 (102) 94 04/10/19 04:00 98.7 89 20 149/98 (115) 92 04/10/19 04:00 4.0 04/10/19 03:30 88 23 146/96 (113) 92 04/10/19 03:25 88 04/10/19 03:16 100 23 100 Facial 30 04/10/19 03:00 101 27 140/98 (112) 91 04/10/19 02:30 110 30 153/87 (109) 95 04/10/19 02:00 103 27 131/90 (104) 93 04/10/19 01:30 117 27 144/85 (104) 94 04/10/19 01:00 98 29 138/93 (108) 95 04/10/19 00:30 103 26 156/88 (110) 94 04/10/19 00:00 98.5 102 29 143/90 (107) 94 04/10/19 00:00 4.0 04/10/19 00:00 Nasal Cannula 2.0 04/09/19 23:39 86 153/78 04/09/19 23:34 103 04/09/19 23:30 96 24 153/78 (103) 99 04/09/19 23:20 100 26 100 Nasal Cannula 4.0 36 111 21 94 12/7/19 23:00 108 27 154/85 (108) 95 04/09/19 22:45 98 26 163/97 (119) 93 04/09/19 22:30 98 29 149/86 (107) 93 04/09/19 22:00 121 33 143/98 (113) 88 04/09/19 21:30 98 32 134/86 (102) 96 04/09/19 21:15 101 29 143/94 (110) 95 04/09/19 21:00 101 27 132/80 (97) 95 04/09/19 20:45 106 26 156/87 (110) 92 04/09/19 20:30 103 28 147/79 (101) 88 04/09/19 20:15 107 27 138/83 (101) 92 04/09/19 20:00 Nasal Cannula 2.0 04/09/19 20:00 98.3 119 24 148/95 (112) 94 04/09/19 19:58 117 04/09/19 19:45 99 32 133/87 (102) 94 04/09/19 19:32 101 24 98 Nasal Cannula 4.0 36 114 25 98 04/09/19 19:32 97 Nasal Cannula 4.0 36 04/09/19 19:30 115 24 137/83 (101) 96 04/09/19 19:22 110 139/92 04/09/19 19:00 110 29 156/92 (113) 97 04/09/19 18:36 105 26 143/80 (101) 95 04/09/19 18:11 135 158/108 04/09/19 18:00 93 31 141/109 (120) 96 04/09/19 17:30 104 27 158/108 (125) 94 04/09/19 17:00 103 28 154/86 (108) 94 04/09/19 16:30 Nasal Cannula 2.0 04/09/19 16:30 23 145/90 (108) 95 04/09/19 16:30 2.0 Intake and Output 04/09/19 04/10/19 19:00 07:00 Intake Total 1157.9227 ml 924.18 ml Output Total 2700 ml 900 ml Balance -1542.0773 ml 24.18 ml Intake Oral 480 ml 500 ml IV Total 677.9227 ml 424.18 ml Output Urine Total 2700 ml 900 ml # Voids 1 # Bowel Movements 4 5 Laboratory Tests Test 04/09/19 18:20 04/10/19 04:14 04/10/19 11:40 Activated Partial Thromboplast Time 77 SEC (23-33) H 48 SEC (23-33) H > 150 SEC (23-33) *H White Blood Count 20.3 K/UL (4.8-10.8) H Red Blood Count 5.42 M/UL (4.70-6.10) Hemoglobin 13.3 G/DL (14.2-18.0) L Hematocrit 42.6 % (42.0-52.0) Mean Corpuscular Volume 79 FL (80-99) L Mean Corpuscular Hemoglobin 24.5 PG (27.0-31.0) L Mean Corpuscular Hemoglobin Concent 31.2 G/DL (32.0-36.0) L Red Cell Distribution Width 15.1 % (11.6-14.8) H Platelet Count 266 K/UL (150-450) Mean Platelet Volume 9.1 FL (6.5-10.1) Neutrophils (%) (Auto) % (45.0-75.0) Lymphocytes (%) (Auto) % (20.0-45.0) Monocytes (%) (Auto) % (1.0-10.0) Eosinophils (%) (Auto) % (0.0-3.0) Basophils (%) (Auto) % (0.0-2.0) Differential Total Cells Counted 100 Neutrophils % (Manual) 70 % (45-75) Lymphocytes % (Manual) 15 % (20-45) L Monocytes % (Manual) 15 % (1-10) H Eosinophils % (Manual) 0 % (0-3) Basophils % (Manual) 0 % (0-2) Band Neutrophils 0 % (0-8) Platelet Estimate Adequate Platelet Morphology Normal Sodium Level 145 MMOL/L (136-145) Potassium Level 3.6 MMOL/L (3.5-5.1) Chloride Level 105 MMOL/L (98-107) Carbon Dioxide Level 44 MMOL/L (21-32) *H Anion Gap -3 mmol/L (5-15) L Blood Urea Nitrogen 30 mg/dL (7-18) H Creatinine 1.4 MG/DL (0.55-1.30) H Estimat Glomerular Filtration Rate 54.1 mL/min (>60) Glucose Level 189 MG/DL (74-106) H Calcium Level 8.9 MG/DL (8.5-10.1) Phosphorus Level 3.3 MG/DL (2.5-4.9) Magnesium Level 2.1 MG/DL (1.8-2.4) Total Bilirubin 0.3 MG/DL (0.2-1.0) Gamma Glutamyl Transpeptidase 42 U/L (5-85) Aspartate Amino Transf (AST/SGOT) 9 U/L (15-37) L Alanine Aminotransferase (ALT/SGPT) 38 U/L (12-78) Alkaline Phosphatase 63 U/L (46-116) C-Reactive Protein, Quantitative 0.9 mg/dL (0.00-0.90) Pro-B-Type Natriuretic Peptide 1183 pg/mL (0-125) H Total Protein 6.6 G/DL (6.4-8.2) Albumin 3.4 G/DL (3.4-5.0) Globulin 3.2 g/dL Albumin/Globulin Ratio 1.1 (1.0-2.7) Vitamin B12 Level 226 PG/ML (193-986) Folate 5.3 NG/ML (8.6-58.9) L Free Thyroxine 1.05 NG/DL (0.76-1.46) Free Triiodothyronine 2.1 pg/mL (2.3-4.2) L Microbiology Date/Time Source Procedure Growth Status 04/08/19 10:50 Sputum Gram Stain - Final Complete 04/08/19 10:50 Sputum Sputum Culture - Final NORMAL UPPER RESPIRATORY WILLI PRESENT Complete Objective HEENT: No JVD. LUNGS: Coarse rhonchi. CARDIOVASCULAR: Irregular S1 and S2 with no gallop or murmur. ABDOMEN: Soft. EXTREMITIES: 3+ pitting edema. Sandor Doll MD Apr 10, 2019 16:19
[2019-04-10] MEDS ORDERED: Digoxin 0.5mg/2ml Inj IVP SCH (16:30)
--- NOTE | 2019-04-10 17:10 | NUR ---
NURSE NOTES: Dr. Doll was on the unit, assessing pt. Updated him on pt's current condition. New orders received and noted, will carry out. No distress noted. Will continue to monitor.
--- NOTE | 2019-04-10 19:30 | NUR ---
HAND-OFF: Report given to KEESHA Donahue.
--- NOTE | 2019-04-10 19:31 | NUR ---
NURSE NOTES: Endorsement received from KEESHA Keith. Patient awake and alert. On 2 LPM nasal cannula. With left FA g22, right AC g20. On Cardizem 7.5mg/hr and Heparin 12 units/kg/hr. On 1liter fluid restriction. Re-educated patient regarding fluid restriction and use of call light. Patient verbalized understanding. Will continue to monitor.
--- NOTE | 2019-04-10 20:00 | NUR ---
NURSE NOTES: Heart rate at 80s, cardizem drip decreased to 5mg/hr
--- NOTE | 2019-04-10 20:21 | General Progress Note ---
Assessment/Plan Problem List: (1) Hypokalemia ICD Codes: E87.6 - Hypokalemia SNOMED: 57232868 (2) CHF (congestive heart failure) ICD Codes: I50.9 - Heart failure, unspecified SNOMED: 93781161 (3) Lower back pain ICD Codes: M54.5 - Low back pain SNOMED: 741519933 Status: progressing Assessment/Plan: chf exacerbation is getting worse cough sleep apnea afebrile no wheezing in icu lyte abnormality getting worse obesity edema chf Subjective ROS Limited/Unobtainable: Yes Allergies: Coded Allergies: RIVAROXABAN (Verified Allergy, Unknown, 04/05/19) Objective Last 24 Hour Vital Signs Date Time Temp Pulse Resp B/P (MAP) Pulse Ox O2 Delivery O2 Flow Rate FiO2 04/10/19 19:10 97 Nasal Cannula 2.0 28 04/10/19 19:10 98 21 97 04/10/19 19:00 99 20 145/93 (110) 94 04/10/19 18:30 112 29 99/75 (83) 92 04/10/19 18:00 105 27 138/77 (97) 97 04/10/19 17:30 107 21 165/123 (137) 91 04/10/19 17:10 108 170/103 04/10/19 17:09 108 04/10/19 17:00 87 24 143/93 (110) 96 04/10/19 17:00 98 26 143/93 (110) 96 04/10/19 16:30 90 25 170/103 (125) 95 04/10/19 16:15 100 25 153/81 (105) 96 04/10/19 16:00 83 04/10/19 16:00 Nasal Cannula 4.0 04/10/19 16:00 4.0 04/10/19 16:00 98.5 112 15 154/89 (110) 95 04/10/19 15:30 81 22 126/77 (93) 95 04/10/19 15:15 79 12 99 Nasal Cannula 2.0 28 82 22 95 04/10/19 15:15 81 19 126/77 (93) 95 04/10/19 15:15 81 19 126/77 (93) 95 04/10/19 15:00 112 22 126/77 (93) 95 04/10/19 14:45 82 33 124/104 (111) 95 04/10/19 14:30 87 26 117/66 (83) 93 04/10/19 14:30 87 26 117/66 (83) 93 04/10/19 14:00 91 22 122/69 (86) 93 04/10/19 13:30 92 28 114/68 (83) 91 04/10/19 13:00 106 29 134/76 (95) 88 04/10/19 12:30 99 26 143/87 (105) 92 04/10/19 12:16 108 137/78 04/10/19 12:00 98.5 98 29 137/78 (97) 92 04/10/19 12:00 93 04/10/19 12:00 Nasal Cannula 4.0 04/10/19 12:00 4.0 04/10/19 11:30 103 28 132/83 (99) 95 04/10/19 11:00 84 27 137/87 (104) 90 04/10/19 10:33 75 22 99 Nasal Cannula 2.0 28 88 14 94 04/10/19 10:30 88 21 152/91 (111) 96 04/10/19 10:00 77 23 138/83 (101) 92 04/10/19 09:30 78 24 94 04/10/19 09:00 81 24 150/92 (111) 94 04/10/19 08:30 84 20 134/73 (93) 94 04/10/19 08:01 84 04/10/19 08:00 Nasal Cannula 4.0 04/10/19 08:00 4.0 04/10/19 08:00 99.0 87 25 129/69 (89) 94 04/10/19 07:30 95 33 137/72 (93) 94 04/10/19 07:08 96 Nasal Cannula 2.0 28 04/10/19 07:00 89 23 136/85 (102) 98 04/10/19 06:30 81 24 129/71 (90) 95 04/10/19 06:00 105 30 139/92 (108) 95 04/10/19 05:58 Nasal Cannula 2.0 04/10/19 05:36 90 122/75 04/10/19 05:31 84 140/82 04/10/19 05:30 79 24 122/75 (91) 95 04/10/19 05:00 80 28 147/95 (112) 94 04/10/19 04:30 87 30 146/80 (102) 94 04/10/19 04:00 98.7 89 20 149/98 (115) 92 04/10/19 04:00 4.0 04/10/19 03:30 88 23 146/96 (113) 92 04/10/19 03:25 88 04/10/19 03:16 100 23 100 Facial 30 04/10/19 03:00 101 27 140/98 (112) 91 04/10/19 02:30 110 30 153/87 (109) 95 04/10/19 02:00 103 27 131/90 (104) 93 04/10/19 01:30 117 27 144/85 (104) 94 04/10/19 01:00 98 29 138/93 (108) 95 04/10/19 00:30 103 26 156/88 (110) 94 04/10/19 00:00 98.5 102 29 143/90 (107) 94 04/10/19 00:00 4.0 04/10/19 00:00 Nasal Cannula 2.0 04/09/19 23:39 86 153/78 04/09/19 23:34 103 04/09/19 23:30 96 24 153/78 (103) 99 04/09/19 23:20 100 26 100 Nasal Cannula 4.0 36 111 21 94 04/09/19 23:00 108 27 154/85 (108) 95 04/09/19 22:45 98 26 163/97 (119) 93 04/09/19 22:30 98 29 149/86 (107) 93 04/09/19 22:00 121 33 143/98 (113) 88 04/09/19 21:30 98 32 134/86 (102) 96 04/09/19 21:15 101 29 143/94 (110) 95 04/09/19 21:00 101 27 132/80 (97) 95 04/09/19 20:45 106 26 156/87 (110) 92 04/09/19 20:30 103 28 147/79 (101) 88 Intake and Output 04/09/19 04/10/19 19:00 07:00 Intake Total 1157.9227 ml 924.18 ml Output Total 2700 ml 900 ml Balance -1542.0773 ml 24.18 ml Intake Oral 480 ml 500 ml IV Total 677.9227 ml 424.18 ml Output Urine Total 2700 ml 900 ml # Voids 1 # Bowel Movements 4 5 Laboratory Tests 04/10/19 04:14: White Blood Count 20.3H, Red Blood Count 5.42, Hemoglobin 13.3L, Hematocrit 42.6 , Mean Corpuscular Volume 79L, Mean Corpuscular Hemoglobin 24.5L, Mean Corpuscular Hemoglobin Concent 31.2L, Red Cell Distribution Width 15.1H, Platelet Count 266, Mean Platelet Volume 9.1, Neutrophils (%) (Auto) , Lymphocytes (%) (Auto) , Monocytes (%) (Auto) , Eosinophils (%) (Auto) , Basophils (%) (Auto) , Differential Total Cells Counted 100, Neutrophils % ( Manual) 70, Lymphocytes % (Manual) 15L, Monocytes % (Manual) 15H, Eosinophils % (Manual) 0, Basophils % (Manual) 0, Band Neutrophils 0, Platelet Estimate Adequate, Platelet Morphology Normal, Activated Partial Thromboplast Time 48H, Sodium Level 145, Potassium Level 3.6, Chloride Level 105, Carbon Dioxide Level 44*H, Anion Gap -3L, Blood Urea Nitrogen 30H, Creatinine 1.4H, Estimat Glomerular Filtration Rate 54.1, Glucose Level 189H, Calcium Level 8.9, Phosphorus Level 3.3, Magnesium Level 2.1, Total Bilirubin 0.3, Gamma Glutamyl Transpeptidase 42, Aspartate Amino Transf (AST/SGOT) 9L, Alanine Aminotransferase (ALT/SGPT) 38, Alkaline Phosphatase 63, C-Reactive Protein, Quantitative 0.9, Pro-B-Type Natriuretic Peptide 1183H, Total Protein 6.6, Albumin 3.4, Globulin 3.2, Albumin/Globulin Ratio 1.1, Vitamin B12 Level 226, Folate 5.3L, Free Thyroxine 1.05, Free Triiodothyronine 2.1L 04/10/19 11:40: Activated Partial Thromboplast Time > 150*H 04/10/19 19:35: Activated Partial Thromboplast Time [Pending] Height (Feet): 5 Height (Inches): 10.00 Weight (Pounds): 411 Cardiovascular: normal rate Respiratory/Chest: lungs clear Abdomen: soft Brodie De Jesus MD Apr 10, 2019 20:21
[2019-04-10] MEDS: Atorvastatin 20mg tab ORAL SCH (20:55)
--- NOTE | 2019-04-10 21:00 | NUR ---
NURSE NOTES: PTT 62. Heparin 6,000 units bolus given, heparin drip increased to 14units/kg/hr as per protocol and Pharmacist Kassidy. Next timed draw for PTT at 0300H.
--- NOTE | 2019-04-10 21:07 | Pulmonology Progress Note ---
Assessment/Plan Assessment/Plan Pulmonary Progress Note HPI The patient is a 48-year-old man with history of obesity and Congestive Heart Failure, admitted with chest pain, shortness of breath, fevera and chills as well as sore throat and ear pain for 3 to 4 days ago. Denies cough or sputum production, vomiting or diarrhea, no Lower extremity swelling. On Diltiazem and Heparin gtt for Rapid afib Less SOB Past Medical History: Obesity, Congestive Heart Failure, Chronic Obstructive Pulmonary Disease, Diabetes, Hypertension Allergies: RIVAROXABAN All Other Systems: negative except mentioned in HPI Physical Exam Vital Signs Noted General: Awake and alert, no acute distress HEENT: NC/AT. EOMI. tympanic membranes are erythematous, Pharynx is erythematous , no exudates, moist mm Cardiovascular: RRR. S1 and S2 normal. No murmur appreciated. Mild edema noted Resp: Normal work of breathing. CTAB Abdomen: Abdomen is soft, nondistended. Nontender Skin: Intact. No abrasions, laceration or rash over the exposed skin Extremities: Normal tone and bulk. Moving all extremities. No obvious deformity. Neuro: Awake and alert. Mentating appropriately. Impression: Congestive heart failure Viral Illness Chronic Obstructive Pulmonary Disease No focal Infiltrates Obesity Hypertension Diabetes Hypokalemia Plan - Diuresis PRN - IV Solumedrol, wean as tolerated - HHN - O2 PRN - BiPAP PRN/QHS - PO Doxycycline - ISS - PPX - MFT Medications Laboratory Tests Noted EKG: Sinus rhythm with PACs. No ST segment changes. Normal intervals CXR: no consolidation, other - bilateral pulmonary congestion, questionable effusions. No obvious consolidation Subjective ROS Limited/Unobtainable: No Allergies: Coded Allergies: RIVAROXABAN (Verified Allergy, Unknown, 04/05/19) Objective Last 24 Hour Vital Signs Date Time Temp Pulse Resp B/P (MAP) Pulse Ox O2 Delivery O2 Flow Rate FiO2 04/10/19 20:00 4.0 04/10/19 20:00 Nasal Cannula 4.0 04/10/19 19:10 97 Nasal Cannula 2.0 28 04/10/19 19:10 98 21 97 04/10/19 19:00 99 20 145/93 (110) 94 04/10/19 18:30 112 29 99/75 (83) 92 04/10/19 18:00 105 27 138/77 (97) 97 04/10/19 17:30 107 21 165/123 (137) 91 04/10/19 17:10 108 170/103 04/10/19 17:09 108 04/10/19 17:00 87 24 143/93 (110) 96 04/10/19 17:00 98 26 143/93 (110) 96 04/10/19 16:30 90 25 170/103 (125) 95 04/10/19 16:15 100 25 153/81 (105) 96 04/10/19 16:00 83 04/10/19 16:00 Nasal Cannula 4.0 04/10/19 16:00 4.0 04/10/19 16:00 98.5 112 15 154/89 (110) 95 04/10/19 15:30 81 22 126/77 (93) 95 04/10/19 15:15 79 12 99 Nasal Cannula 2.0 28 82 22 95 04/10/19 15:15 81 19 126/77 (93) 95 04/10/19 15:15 81 19 126/77 (93) 95 04/10/19 15:00 112 22 126/77 (93) 95 04/10/19 14:45 82 33 124/104 (111) 95 04/10/19 14:30 87 26 117/66 (83) 93 04/10/19 14:30 87 26 117/66 (83) 93 04/10/19 14:00 91 22 122/69 (86) 93 04/10/19 13:30 92 28 114/68 (83) 91 04/10/19 13:00 106 29 134/76 (95) 88 04/10/19 12:30 99 26 143/87 (105) 92 04/10/19 12:16 108 137/78 04/10/19 12:00 98.5 98 29 137/78 (97) 92 04/10/19 12:00 93 04/10/19 12:00 Nasal Cannula 4.0 04/10/19 12:00 4.0 04/10/19 11:30 103 28 132/83 (99) 95 04/10/19 11:00 84 27 137/87 (104) 90 04/10/19 10:33 75 22 99 Nasal Cannula 2.0 28 88 14 94 04/10/19 10:30 88 21 152/91 (111) 96 12/8/19 10:00 77 23 138/83 (101) 92 04/10/19 09:30 78 24 94 04/10/19 09:00 81 24 150/92 (111) 94 04/10/19 08:30 84 20 134/73 (93) 94 04/10/19 08:01 84 04/10/19 08:00 Nasal Cannula 4.0 04/10/19 08:00 4.0 04/10/19 08:00 99.0 87 25 129/69 (89) 94 04/10/19 07:30 95 33 137/72 (93) 94 04/10/19 07:08 96 Nasal Cannula 2.0 28 04/10/19 07:00 89 23 136/85 (102) 98 04/10/19 06:30 81 24 129/71 (90) 95 04/10/19 06:00 105 30 139/92 (108) 95 04/10/19 05:58 Nasal Cannula 2.0 04/10/19 05:36 90 122/75 04/10/19 05:31 84 140/82 04/10/19 05:30 79 24 122/75 (91) 95 04/10/19 05:00 80 28 147/95 (112) 94 04/10/19 04:30 87 30 146/80 (102) 94 04/10/19 04:00 98.7 89 20 149/98 (115) 92 04/10/19 04:00 4.0 04/10/19 03:30 88 23 146/96 (113) 92 04/10/19 03:25 88 04/10/19 03:16 100 23 100 Facial 30 04/10/19 03:00 101 27 140/98 (112) 91 04/10/19 02:30 110 30 153/87 (109) 95 04/10/19 02:00 103 27 131/90 (104) 93 04/10/19 01:30 117 27 144/85 (104) 94 04/10/19 01:00 98 29 138/93 (108) 95 04/10/19 00:30 103 26 156/88 (110) 94 04/10/19 00:00 98.5 102 29 143/90 (107) 94 04/10/19 00:00 4.0 04/10/19 00:00 Nasal Cannula 2.0 04/09/19 23:39 86 153/78 04/09/19 23:34 103 04/09/19 23:30 96 24 153/78 (103) 99 04/09/19 23:20 100 26 100 Nasal Cannula 4.0 36 111 21 94 04/09/19 23:00 108 27 154/85 (108) 95 04/09/19 22:45 98 26 163/97 (119) 93 04/09/19 22:30 98 29 149/86 (107) 93 04/09/19 22:00 121 33 143/98 (113) 88 04/09/19 21:30 98 32 134/86 (102) 96 04/09/19 21:15 101 29 143/94 (110) 95 Intake and Output 04/09/19 04/10/19 19:00 07:00 Intake Total 1157.9227 ml 924.18 ml Output Total 2700 ml 900 ml Balance -1542.0773 ml 24.18 ml Intake Oral 480 ml 500 ml IV Total 677.9227 ml 424.18 ml Output Urine Total 2700 ml 900 ml # Voids 1 # Bowel Movements 4 5 Microbiology Date/Time Source Procedure Growth Status 04/08/19 10:50 Sputum Gram Stain - Final Complete 04/08/19 10:50 Sputum Sputum Culture - Final NORMAL UPPER RESPIRATORY WILLI PRESENT Complete Laboratory Tests 04/10/19 04:14: White Blood Count 20.3H, Red Blood Count 5.42, Hemoglobin 13.3L, Hematocrit 42.6 , Mean Corpuscular Volume 79L, Mean Corpuscular Hemoglobin 24.5L, Mean Corpuscular Hemoglobin Concent 31.2L, Red Cell Distribution Width 15.1H, Platelet Count 266, Mean Platelet Volume 9.1, Neutrophils (%) (Auto) , Lymphocytes (%) (Auto) , Monocytes (%) (Auto) , Eosinophils (%) (Auto) , Basophils (%) (Auto) , Differential Total Cells Counted 100, Neutrophils % ( Manual) 70, Lymphocytes % (Manual) 15L, Monocytes % (Manual) 15H, Eosinophils % (Manual) 0, Basophils % (Manual) 0, Band Neutrophils 0, Platelet Estimate Adequate, Platelet Morphology Normal, Activated Partial Thromboplast Time 48H, Sodium Level 145, Potassium Level 3.6, Chloride Level 105, Carbon Dioxide Level 44*H, Anion Gap -3L, Blood Urea Nitrogen 30H, Creatinine 1.4H, Estimat Glomerular Filtration Rate 54.1, Glucose Level 189H, Calcium Level 8.9, Phosphorus Level 3.3, Magnesium Level 2.1, Total Bilirubin 0.3, Gamma Glutamyl Transpeptidase 42, Aspartate Amino Transf (AST/SGOT) 9L, Alanine Aminotransferase (ALT/SGPT) 38, Alkaline Phosphatase 63, C-Reactive Protein, Quantitative 0.9, Pro-B-Type Natriuretic Peptide 1183H, Total Protein 6.6, Albumin 3.4, Globulin 3.2, Albumin/Globulin Ratio 1.1, Vitamin B12 Level 226, Folate 5.3L, Free Thyroxine 1.05, Free Triiodothyronine 2.1L 04/10/19 11:40: Activated Partial Thromboplast Time > 150*H 04/10/19 19:35: Activated Partial Thromboplast Time 62H Current Medications Medications (Trade) Dose Ordered Sig/David Route PRN Reason Start Time Stop Time Status Last Admin Dose Admin Acetaminophen (Tylenol) 650 mg Q6H PRN ORAL Mild Pain/Temp > 100.5 04/08/19 18:28 05/08/19 18:27 Acetazolamide (Diamox) 250 mg TWICE A DAY ORAL 04/10/19 12:00 05/10/19 11:59 04/10/19 17:09 Albuterol/ Ipratropium (Albuterol/ Ipratropium) 3 ml Q4HRT HHN 04/08/19 19:00 04/11/19 02:59 04/10/19 15:15 Aspirin (ASA) 81 mg DAILY ORAL 04/09/19 09:00 05/06/19 08:59 04/10/19 08:48 Atorvastatin Calcium (Lipitor) 40 mg BEDTIME ORAL 04/08/19 21:00 05/06/19 20:59 04/10/19 20:55 Clonidine HCl (Catapres Tab) 0.1 mg Q4H PRN ORAL bp over 165 syst 04/08/19 18:28 05/08/19 18:27 Digoxin (Lanoxin) 0.25 mg DAILY ORAL 04/11/19 09:00 05/11/19 08:59 Diltiazem HCl (Cardizem) 90 mg EVERY 6 HOURS ORAL 04/09/19 18:00 05/09/19 17:59 04/10/19 17:10 Diltiazem HCl 125 mg/Dextrose 125 ml @ 0 mls/hr Q24H IV 04/08/19 18:27 05/08/19 18:26 04/10/19 05:36 Docusate Sodium (Colace) 100 mg THREE TIMES A DAY ORAL 04/09/19 09:00 05/09/19 08:59 04/10/19 17:11 Folic Acid (Folate) 1 mg DAILY ORAL 04/10/19 11:00 05/10/19 10:59 04/10/19 12:15 Furosemide (Lasix) 80 mg Q12HR@0600,1800 IV 04/09/19 06:00 05/08/19 17:59 04/10/19 17:08 Gabapentin (Neurontin) 600 mg BID ORAL 04/09/19 09:00 05/06/19 17:59 04/10/19 17:10 Guaifenesin/ Dextromethorphan (Robitussin DM Syrup) 5 ml Q4H PRN ORAL For Cough 04/10/19 19:30 05/10/19 19:29 Heparin Sodium (Porcine) (Heparin 5000 units/ml) 6,000 units ONCE IV 04/10/19 20:45 04/10/19 21:45 04/10/19 20:53 Heparin Sodium/ Dextrose 500 ml @ 52.08 mls/ hr ADJUST PER PROTOCOL IV 04/10/19 20:45 05/10/19 20:44 04/10/19 20:54 Methylprednisolone Sodium Succinate (Solu-MEDROL) 40 mg BID IVP 04/10/19 09:00 05/06/19 05:59 04/10/19 17:08 Morphine Sulfate (Morphine Sulfate) 1 mg Q6H PRN IVP Breakthrough Pain 04/08/19 18:29 04/15/19 18:28 04/10/19 18:38 Ondansetron HCl (Zofran) 4 mg Q6H PRN IVP Nausea & Vomiting 04/08/19 18:30 05/08/19 18:29 Oxycodone/ Acetaminophen (Percocet 5-325) 1 tab Q4H PRN ORAL Severe Pain (Pain Scale 7-10) 04/08/19 18:29 04/15/19 18:28 04/10/19 01:46 Pantoprazole (Protonix) 40 mg EVERY 12 HOURS ORAL 04/09/19 09:00 05/09/19 08:59 04/10/19 20:54 Potassium Chloride (K-Dur) 40 meq BID ORAL 04/09/19 09:00 05/06/19 08:59 04/10/19 17:11 Regadenoson (Lexiscan) 0.4 mg ONCE PRN IV CARDIOLOGY 04/08/19 18:29 04/11/19 23:59 Mahesh Wise MD Apr 10, 2019 21:07
--- NOTE | 2019-04-10 21:45 | NUR ---
NURSE NOTES: Heart rate between 68-70s. Cardizem drip decreased to 2.5mg/hr.
--- NOTE | 2019-04-10 22:00 | NUR ---
NURSE NOTES: Patient noted to be sinus rhythm, will continue to monitor.
[2019-04-11] VITALS (36 sets, daily range): BP systolic 90–185; BP diastolic 63–121
--- NOTE | 2019-04-11 | NUR ---
NURSE NOTES: Patient on BiPAP as per order. No shortness of breath. Cardizem drip at 2.5mg/hr. Heparin drip at 14u/kg/hr. No shortness of breath. No complains of pain or discomfort. No signs and symptoms of any bleeding. With good urine output.
[2019-04-11] MEDS: Morphine Sulfate 2mg/ml Inj(IV/IM USE ONLY) IVP PRN ×4 (01:59→21:36)
--- NOTE | 2019-04-11 02:00 | NUR ---
NURSE NOTES: SBP 180s, rechecked at another site, still 180s. PRN catapress given. Patient reported 8/10 generalized body pain. PRN Morphine given
[2019-04-11] MEDS: Albuterol/Ipratropium 3ml neb HHN SCH ×6 (03:00→23:40)
[2019-04-11 03:34] LABS: HEMATOCRIT 45.1 % (42.0-52.0); HEMOGLOBIN 14.2 G/DL (14.2-18.0); MEAN CORPUSCULAR VOLUME 79 FL (80-99); PLATELET COUNT 275 K/UL (150-450); RED BLOOD COUNT 5.71 M/UL (4.70-6.10); RED CELL DISTRIBUTION WIDTH 15.6 % (11.6-14.8); WHITE BLOOD COUNT 18.4 K/UL (4.8-10.8)
[2019-04-11 03:45] LABS: ALANINE AMINOTRANSFERASE 34 U/L (12-78); ALBUMIN 3.5 G/DL (3.4-5.0); ALBUMIN/GLOBULIN RATIO 1.1 (1.0-2.7); ALKALINE PHOSPHATASE 62 U/L (46-116); ANION GAP 2 mmol/L (5-15); ASPARTATE AMINO TRANSFERASE 10 U/L (15-37); BILIRUBIN,TOTAL 0.4 MG/DL (0.2-1.0); BLOOD UREA NITROGEN 30 mg/dL (7-18); CALCIUM 8.8 MG/DL (8.5-10.1); CARBON DIOXIDE 38 MMOL/L (21-32); CHLORIDE 104 MMOL/L (98-107); CREATININE 1.5 MG/DL (0.55-1.30); SODIUM 144 MMOL/L (136-145)
--- NOTE | 2019-04-11 03:45 | NUR ---
NURSE NOTES: Patient sinus rhythm. Cardizem drip on hold. Will continue to monitor.
--- NOTE | 2019-04-11 04:00 | NUR ---
NURSE NOTES: Assisted patient with morning care. Change of linens done.
--- NOTE | 2019-04-11 04:15 | NUR ---
NURSE NOTES: PTT results available. Per [facility] pharmacist Padmini Ybarra as per protocol: hold infusion for 30 minutes. Restart at 11 units/kg/hr.
[2019-04-11] MEDS: Heparin 25,000u/D5W 500ml 500 ML IV SCH ×2 (04:44→10:21)
--- NOTE | 2019-04-11 04:44 | NUR ---
NURSE NOTES: Heparin started at 11units/kg/hr. PTT timed draw at 1040H
[2019-04-11] MEDS: dilTIAZem HCl 90mg tab ORAL SCH ×5 (05:10→23:06)
--- NOTE | 2019-04-11 06:58 | Hematology/Onc Progress Note ---
Assessment/Plan Assessment/Plan Assessment and Recs: # Secondary hypercoagulable disorder, has afib with rvr, w/u as per cards --> continue on heparin gtt at this time --> cardizem po started for rhythm control --> per cards, likely to need noac v coumadin as outpatient # Leukocytosis is likely due to steriod use --> wbc trend 15-->20k-->18 --> steriod taper --> abx as per id # Hypokalemia --> per renal, replete k --> diuresis # CHF (congestive heart failure) --> on lasix bid dosing, per cards # Obesity --> weight loss recommended --> lifestyle modification # Afib with rvr per cards DW Rn and appreciate consultation. Subjective Allergies: Coded Allergies: RIVAROXABAN (Verified Allergy, Unknown, 04/05/19) Subjective 04/11: remains on diltz and heparin gtt, oon bipap o/n Objective Objective Current Medications Medications (Trade) Dose Ordered Sig/David Route PRN Reason Start Time Stop Time Status Last Admin Dose Admin Acetaminophen (Tylenol) 650 mg Q6H PRN ORAL Mild Pain/Temp > 100.5 04/08/19 18:28 05/08/19 18:27 Acetazolamide (Diamox) 250 mg TWICE A DAY ORAL 04/10/19 12:00 05/10/19 11:59 04/10/19 17:09 Albuterol/ Ipratropium (Albuterol/ Ipratropium) 3 ml Q4HRT HHN 04/11/19 03:00 04/16/19 02:59 Aspirin (ASA) 81 mg DAILY ORAL 04/09/19 09:00 05/06/19 08:59 04/10/19 08:48 Atorvastatin Calcium (Lipitor) 40 mg BEDTIME ORAL 04/08/19 21:00 05/06/19 20:59 04/10/19 20:55 Clonidine HCl (Catapres Tab) 0.1 mg Q4H PRN ORAL bp over 165 syst 04/08/19 18:28 05/08/19 18:27 04/11/19 01:59 Digoxin (Lanoxin) 0.25 mg DAILY ORAL 04/11/19 09:00 05/11/19 08:59 Diltiazem HCl (Cardizem) 90 mg EVERY 6 HOURS ORAL 04/09/19 18:00 05/09/19 17:59 04/11/19 05:10 Diltiazem HCl 125 mg/Dextrose 125 ml @ 0 mls/hr Q24H IV 04/08/19 18:27 05/08/19 18:26 04/10/19 05:36 Docusate Sodium (Colace) 100 mg THREE TIMES A DAY ORAL 04/09/19 09:00 05/09/19 08:59 04/10/19 17:11 Folic Acid (Folate) 1 mg DAILY ORAL 04/10/19 11:00 05/10/19 10:59 04/10/19 12:15 Furosemide (Lasix) 80 mg Q12HR@0600,1800 IV 04/09/19 06:00 05/08/19 17:59 04/11/19 05:11 Gabapentin (Neurontin) 600 mg BID ORAL 04/09/19 09:00 05/06/19 17:59 04/10/19 17:10 Guaifenesin/ Dextromethorphan (Robitussin DM Syrup) 5 ml Q4H PRN ORAL For Cough 04/10/19 19:30 05/10/19 19:29 Heparin Sodium/ Dextrose 500 ml @ 40.92 mls/ hr ADJUST PER PROTOCOL IV 04/11/19 05:00 05/11/19 04:59 04/11/19 04:44 Methylprednisolone Sodium Succinate (Solu-MEDROL) 40 mg BID IVP 04/10/19 09:00 05/06/19 05:59 04/10/19 17:08 Morphine Sulfate (Morphine Sulfate) 1 mg Q6H PRN IVP Breakthrough Pain 04/08/19 18:29 04/15/19 18:28 04/11/19 01:59 Ondansetron HCl (Zofran) 4 mg Q6H PRN IVP Nausea & Vomiting 04/08/19 18:30 05/08/19 18:29 Oxycodone/ Acetaminophen (Percocet 5-325) 1 tab Q4H PRN ORAL Severe Pain (Pain Scale 7-10) 04/08/19 18:29 04/15/19 18:28 04/10/19 01:46 Pantoprazole (Protonix) 40 mg EVERY 12 HOURS ORAL 04/09/19 09:00 05/09/19 08:59 04/10/19 20:54 Potassium Chloride (K-Dur) 40 meq BID ORAL 04/09/19 09:00 05/06/19 08:59 04/10/19 17:11 Regadenoson (Lexiscan) 0.4 mg ONCE PRN IV CARDIOLOGY 04/08/19 18:29 04/11/19 23:59 Last 24 Hour Vital Signs Date Time Temp Pulse Resp B/P (MAP) Pulse Ox O2 Delivery O2 Flow Rate FiO2 04/11/19 06:30 77 16 135/108 (117) 95 04/11/19 06:00 74 20 159/98 (118) 95 04/11/19 05:30 73 20 162/115 (131) 96 04/11/19 05:10 76 152/107 04/11/19 05:00 76 19 152/107 (122) 96 04/11/19 04:30 77 22 152/107 (122) 95 04/11/19 04:00 97.9 82 18 137/94 (108) 98 04/11/19 04:00 4.0 04/11/19 04:00 96 04/11/19 04:00 Bi-pap 04/11/19 03:30 76 12 137/94 (108) 96 04/11/19 03:09 71 20 96 Bi-Pap 30 04/11/19 03:08 74 20 99 Facial 30 04/11/19 03:00 81 13 168/108 (128) 97 04/11/19 02:55 70 19 98 Facial 30 04/11/19 02:34 98.0 04/11/19 02:30 82 19 165/111 (129) 96 04/11/19 02:00 72 20 182/100 (127) 95 04/11/19 01:59 180/96 04/11/19 01:30 90 24 168/112 (130) 96 04/11/19 01:00 90 17 156/101 (119) 97 04/11/19 00:30 69 21 147/91 (109) 95 04/11/19 00:00 73 04/11/19 00:00 86 155/93 04/11/19 00:00 Bi-pap 04/11/19 00:00 30 04/11/19 00:00 98.0 80 15 139/110 (120) 95 04/10/19 23:30 73 15 155/93 (113) 95 04/10/19 23:00 80 19 152/92 (112) 96 04/10/19 22:55 67 19 100 Bi-Pap 30 71 17 98 04/10/19 22:30 30 04/10/19 22:30 80 17 149/67 (94) 97 04/10/19 22:27 72 18 95 Facial 30 04/10/19 22:00 92 24 131/82 (98) 95 04/10/19 21:56 77 04/10/19 21:30 95 22 148/84 (105) 97 04/10/19 21:00 90 22 153/126 (135) 97 04/10/19 20:30 109 24 135/121 (126) 88 04/10/19 20:15 94 17 125/65 (85) 97 04/10/19 20:00 4.0 04/10/19 20:00 Nasal Cannula 4.0 04/10/19 20:00 98.3 87 23 142/73 (96) 96 04/10/19 19:45 97 23 129/80 (96) 96 04/10/19 19:30 100 26 118/75 (89) 92 04/10/19 19:15 94 21 145/82 (103) 96 04/10/19 19:10 97 Nasal Cannula 2.0 28 04/10/19 19:10 98 21 97 04/10/19 19:00 99 20 145/93 (110) 94 04/10/19 18:30 112 29 99/75 (83) 92 04/10/19 18:00 105 27 138/77 (97) 97 04/10/19 17:30 107 21 165/123 (137) 91 04/10/19 17:10 108 170/103 04/10/19 17:09 108 04/10/19 17:00 87 24 143/93 (110) 96 04/10/19 17:00 98 26 143/93 (110) 96 04/10/19 16:30 90 25 170/103 (125) 95 04/10/19 16:15 100 25 153/81 (105) 96 04/10/19 16:00 83 04/10/19 16:00 Nasal Cannula 4.0 04/10/19 16:00 4.0 04/10/19 16:00 98.5 112 15 154/89 (110) 95 04/10/19 15:30 81 22 126/77 (93) 95 04/10/19 15:15 79 12 99 Nasal Cannula 2.0 28 82 22 95 04/10/19 15:15 81 19 126/77 (93) 95 04/10/19 15:15 81 19 126/77 (93) 95 04/10/19 15:00 112 22 126/77 (93) 95 04/10/19 14:45 82 33 124/104 (111) 95 04/10/19 14:30 87 26 117/66 (83) 93 04/10/19 14:30 87 26 117/66 (83) 93 04/10/19 14:00 91 22 122/69 (86) 93 04/10/19 13:30 92 28 114/68 (83) 91 04/10/19 13:00 106 29 134/76 (95) 88 04/10/19 12:30 99 26 143/87 (105) 92 04/10/19 12:16 108 137/78 04/10/19 12:00 98.5 98 29 137/78 (97) 92 04/10/19 12:00 93 04/10/19 12:00 Nasal Cannula 4.0 04/10/19 12:00 4.0 04/10/19 11:30 103 28 132/83 (99) 95 04/10/19 11:00 84 27 137/87 (104) 90 04/10/19 10:33 75 22 99 Nasal Cannula 2.0 28 88 14 94 04/10/19 10:30 88 21 152/91 (111) 96 04/10/19 10:00 77 23 138/83 (101) 92 04/10/19 09:30 78 24 94 04/10/19 09:00 81 24 150/92 (111) 94 04/10/19 08:30 84 20 134/73 (93) 94 04/10/19 08:01 84 04/10/19 08:00 Nasal Cannula 4.0 04/10/19 08:00 4.0 04/10/19 08:00 99.0 87 25 129/69 (89) 94 04/10/19 07:30 95 33 137/72 (93) 94 04/10/19 07:08 96 Nasal Cannula 2.0 28 04/10/19 07:00 89 23 136/85 (102) 98 04/10/19 06:30 81 24 129/71 (90) 95 04/10/19 06:00 105 30 139/92 (108) 95 04/10/19 05:58 Nasal Cannula 2.0 04/10/19 05:36 90 122/75 04/10/19 05:31 84 140/82 04/10/19 05:30 79 24 122/75 (91) 95 04/10/19 05:00 80 28 147/95 (112) 94 04/10/19 04:30 87 30 146/80 (102) 94 04/10/19 04:00 98.7 89 20 149/98 (115) 92 04/10/19 04:00 4.0 04/10/19 03:30 88 23 146/96 (113) 92 04/10/19 03:25 88 04/10/19 03:16 100 23 100 Facial 30 04/10/19 03:00 101 27 140/98 (112) 91 04/10/19 02:30 110 30 153/87 (109) 95 04/10/19 02:00 103 27 131/90 (104) 93 04/10/19 01:30 117 27 144/85 (104) 94 04/10/19 01:00 98 29 138/93 (108) 95 04/10/19 00:30 103 26 156/88 (110) 94 04/10/19 00:00 98.5 102 29 143/90 (107) 94 04/10/19 00:00 4.0 04/10/19 00:00 Nasal Cannula 2.0 04/09/19 23:39 86 153/78 04/09/19 23:34 103 04/09/19 23:30 96 24 153/78 (103) 99 04/09/19 23:20 100 26 100 Nasal Cannula 4.0 36 111 21 94 04/09/19 23:00 108 27 154/85 (108) 95 04/09/19 22:45 98 26 163/97 (119) 93 04/09/19 22:30 98 29 149/86 (107) 93 04/09/19 22:00 121 33 143/98 (113) 88 04/09/19 21:30 98 32 134/86 (102) 96 04/09/19 21:15 101 29 143/94 (110) 95 04/09/19 21:00 101 27 132/80 (97) 95 04/09/19 20:45 106 26 156/87 (110) 92 04/09/19 20:30 103 28 147/79 (101) 88 04/09/19 20:15 107 27 138/83 (101) 92 04/09/19 20:00 Nasal Cannula 2.0 04/09/19 20:00 98.3 119 24 148/95 (112) 94 04/09/19 19:58 117 04/09/19 19:45 99 32 133/87 (102) 94 04/09/19 19:32 101 24 98 Nasal Cannula 4.0 36 114 25 98 04/09/19 19:32 97 Nasal Cannula 4.0 36 04/09/19 19:30 115 24 137/83 (101) 96 04/09/19 19:22 110 139/92 04/09/19 19:00 110 29 156/92 (113) 97 04/09/19 18:36 105 26 143/80 (101) 95 04/09/19 18:11 135 158/108 04/09/19 18:00 93 31 141/109 (120) 96 04/09/19 17:30 104 27 158/108 (125) 94 04/09/19 17:00 103 28 154/86 (108) 94 04/09/19 16:30 Nasal Cannula 2.0 04/09/19 16:30 23 145/90 (108) 95 04/09/19 16:30 2.0 04/09/19 16:00 98.1 99 24 150/94 (112) 97 04/09/19 16:00 132 04/09/19 16:00 Bi-pap 15.0 04/09/19 15:30 96 24 140/95 (110) 97 04/09/19 15:18 100 20 97 Facial 30 101 21 97 Bi-Pap 30 04/09/19 15:00 94 20 138/89 (105) 96 04/09/19 14:30 97 23 133/75 (94) 97 04/09/19 14:00 95 25 154/98 (116) 97 04/09/19 13:57 30 12/7/19 13:51 100 24 97 Facial 30 12/7/19 13:30 109 22 156/92 (113) 98 04/09/19 13:00 94 31 148/95 (112) 98 04/09/19 12:30 118 26 143/95 (111) 94 04/09/19 12:00 98.4 87 22 140/85 (103) 95 04/09/19 12:00 2.0 04/09/19 12:00 76 04/09/19 11:30 92 23 142/89 (106) 97 04/09/19 11:00 94 30 161/93 (115) 96 04/09/19 10:30 88 24 130/91 (104) 97 04/09/19 10:00 97 23 140/87 (104) 96 04/09/19 09:33 104 20 97 Facial 40 04/09/19 09:30 101 23 150/102 (118) 97 04/09/19 09:15 Bi-pap 15.0 04/09/19 09:15 40 04/09/19 09:00 100 28 137/93 (108) 94 04/09/19 08:30 106 22 144/72 (96) 95 04/09/19 08:15 104 25 133/71 (91) 97 04/09/19 08:00 116 04/09/19 08:00 2.0 04/09/19 08:00 Nasal Cannula 2.0 04/09/19 08:00 98.1 107 32 114/79 (91) 97 04/09/19 07:45 116 24 124/79 (94) 96 04/09/19 07:43 126 23 127/101 (110) 97 04/09/19 07:30 128 25 138/111 (120) 95 04/09/19 07:30 4.0 04/09/19 07:15 95 Nasal Cannula 4.0 36 04/09/19 07:15 93 24 98 Nasal Cannula 4.0 36 113 23 95 04/09/19 07:00 87 28 133/111 (118) 96 Intake and Output 04/10/19 04/11/19 18:59 06:59 Intake Total 1175.612 ml 739.57 ml Output Total 2050 ml 4050 ml Balance -874.388 ml -3310.43 ml Intake Oral 580 ml 150 ml IV Total 595.612 ml 589.57 ml Output Urine Total 2050 ml 4050 ml # Voids 7 6 # Bowel Movements 2 1 Labs Test 04/08/19 12:00 04/08/19 20:00 04/09/19 02:36 04/09/19 11:00 Arterial Blood pH 7.403 (7.350-7.450) Arterial Blood Partial Pressure CO2 58.4 mmHg (35.0-45.0) Arterial Blood Partial Pressure O2 61.8 mmHg (75.0-100.0) Arterial Blood HCO3 35.6 mmol/L (22.0-26.0) Arterial Blood Oxygen Saturation 91.5 % (95-100) Arterial Blood Base Excess 8.9 (-2-2) Kory Test Positive White Blood Count 15.5 K/UL (4.8-10.8) 15.3 K/UL (4.8-10.8) Red Blood Count 5.33 M/UL (4.70-6.10) 5.19 M/UL (4.70-6.10) Hemoglobin 13.4 G/DL (14.2-18.0) 12.9 G/DL (14.2-18.0) Hematocrit 41.4 % (42.0-52.0) 41.6 % (42.0-52.0) Mean Corpuscular Volume 78 FL (80-99) 80 FL (80-99) Mean Corpuscular Hemoglobin 25.1 PG (27.0-31.0) 24.9 PG (27.0-31.0) Mean Corpuscular Hemoglobin Concent 32.3 G/DL (32.0-36.0) 31.0 G/DL (32.0-36.0) Red Cell Distribution Width 13.9 % (11.6-14.8) 15.9 % (11.6-14.8) Platelet Count 263 K/UL (150-450) 293 K/UL (150-450) Mean Platelet Volume 8.7 FL (6.5-10.1) 9.5 FL (6.5-10.1) Neutrophils (%) (Auto) 84.8 % (45.0-75.0) % (45.0-75.0) Lymphocytes (%) (Auto) 9.8 % (20.0-45.0) % (20.0-45.0) Monocytes (%) (Auto) 4.3 % (1.0-10.0) % (1.0-10.0) Eosinophils (%) (Auto) 0.0 % (0.0-3.0) % (0.0-3.0) Basophils (%) (Auto) 1.1 % (0.0-2.0) % (0.0-2.0) Activated Partial Thromboplast Time 23 SEC (23-33) 26 SEC (23-33) 37 SEC (23-33) Differential Total Cells Counted 100 Neutrophils % (Manual) 86 % (45-75) Lymphocytes % (Manual) 9 % (20-45) Monocytes % (Manual) 5 % (1-10) Eosinophils % (Manual) 0 % (0-3) Basophils % (Manual) 0 % (0-2) Band Neutrophils 0 % (0-8) Platelet Estimate Adequate Platelet Morphology Normal Red Blood Cell Morphology Normal Sodium Level 147 MMOL/L (136-145) Potassium Level 4.0 MMOL/L (3.5-5.1) Chloride Level 107 MMOL/L (98-107) Carbon Dioxide Level 36 MMOL/L (21-32) Anion Gap 4 mmol/L (5-15) Blood Urea Nitrogen 28 mg/dL (7-18) Creatinine 1.4 MG/DL (0.55-1.30) Estimat Glomerular Filtration Rate 54.1 mL/min (>60) Glucose Level 170 MG/DL (74-106) Calcium Level 8.8 MG/DL (8.5-10.1) Total Bilirubin 0.3 MG/DL (0.2-1.0) Aspartate Amino Transf (AST/SGOT) 23 U/L (15-37) Alanine Aminotransferase (ALT/SGPT) 42 U/L (12-78) Alkaline Phosphatase 60 U/L (46-116) Total Protein 6.9 G/DL (6.4-8.2) Albumin 3.6 G/DL (3.4-5.0) Globulin 3.3 g/dL Albumin/Globulin Ratio 1.1 (1.0-2.7) Test 04/09/19 18:20 04/10/19 04:14 04/10/19 11:40 04/10/19 19:35 Activated Partial Thromboplast Time 77 SEC (23-33) 48 SEC (23-33) > 150 SEC (23-33) 62 SEC (23-33) White Blood Count 20.3 K/UL (4.8-10.8) Red Blood Count 5.42 M/UL (4.70-6.10) Hemoglobin 13.3 G/DL (14.2-18.0) Hematocrit 42.6 % (42.0-52.0) Mean Corpuscular Volume 79 FL (80-99) Mean Corpuscular Hemoglobin 24.5 PG (27.0-31.0) Mean Corpuscular Hemoglobin Concent 31.2 G/DL (32.0-36.0) Red Cell Distribution Width 15.1 % (11.6-14.8) Platelet Count 266 K/UL (150-450) Mean Platelet Volume 9.1 FL (6.5-10.1) Neutrophils (%) (Auto) % (45.0-75.0) Lymphocytes (%) (Auto) % (20.0-45.0) Monocytes (%) (Auto) % (1.0-10.0) Eosinophils (%) (Auto) % (0.0-3.0) Basophils (%) (Auto) % (0.0-2.0) Differential Total Cells Counted 100 Neutrophils % (Manual) 70 % (45-75) Lymphocytes % (Manual) 15 % (20-45) Monocytes % (Manual) 15 % (1-10) Eosinophils % (Manual) 0 % (0-3) Basophils % (Manual) 0 % (0-2) Band Neutrophils 0 % (0-8) Platelet Estimate Adequate Platelet Morphology Normal Sodium Level 145 MMOL/L (136-145) Potassium Level 3.6 MMOL/L (3.5-5.1) Chloride Level 105 MMOL/L (98-107) Carbon Dioxide Level 44 MMOL/L (21-32) Anion Gap -3 mmol/L (5-15) Blood Urea Nitrogen 30 mg/dL (7-18) Creatinine 1.4 MG/DL (0.55-1.30) Estimat Glomerular Filtration Rate 54.1 mL/min (>60) Glucose Level 189 MG/DL (74-106) Calcium Level 8.9 MG/DL (8.5-10.1) Phosphorus Level 3.3 MG/DL (2.5-4.9) Magnesium Level 2.1 MG/DL (1.8-2.4) Total Bilirubin 0.3 MG/DL (0.2-1.0) Gamma Glutamyl Transpeptidase 42 U/L (5-85) Aspartate Amino Transf (AST/SGOT) 9 U/L (15-37) Alanine Aminotransferase (ALT/SGPT) 38 U/L (12-78) Alkaline Phosphatase 63 U/L (46-116) C-Reactive Protein, Quantitative 0.9 mg/dL (0.00-0.90) Pro-B-Type Natriuretic Peptide 1183 pg/mL (0-125) Total Protein 6.6 G/DL (6.4-8.2) Albumin 3.4 G/DL (3.4-5.0) Globulin 3.2 g/dL Albumin/Globulin Ratio 1.1 (1.0-2.7) Vitamin B12 Level 226 PG/ML (193-986) Folate 5.3 NG/ML (8.6-58.9) Free Thyroxine 1.05 NG/DL (0.76-1.46) Free Triiodothyronine 2.1 pg/mL (2.3-4.2) Test 04/11/19 03:00 White Blood Count 18.4 K/UL (4.8-10.8) Red Blood Count 5.71 M/UL (4.70-6.10) Hemoglobin 14.2 G/DL (14.2-18.0) Hematocrit 45.1 % (42.0-52.0) Mean Corpuscular Volume 79 FL (80-99) Mean Corpuscular Hemoglobin 24.8 PG (27.0-31.0) Mean Corpuscular Hemoglobin Concent 31.5 G/DL (32.0-36.0) Red Cell Distribution Width 15.6 % (11.6-14.8) Platelet Count 275 K/UL (150-450) Mean Platelet Volume 9.1 FL (6.5-10.1) Neutrophils (%) (Auto) % (45.0-75.0) Lymphocytes (%) (Auto) % (20.0-45.0) Monocytes (%) (Auto) % (1.0-10.0) Eosinophils (%) (Auto) % (0.0-3.0) Basophils (%) (Auto) % (0.0-2.0) Differential Total Cells Counted 100 Neutrophils % (Manual) 84 % (45-75) Lymphocytes % (Manual) 10 % (20-45) Monocytes % (Manual) 6 % (1-10) Eosinophils % (Manual) 0 % (0-3) Basophils % (Manual) 0 % (0-2) Band Neutrophils 0 % (0-8) Platelet Estimate Adequate Platelet Morphology Normal Activated Partial Thromboplast Time 128 SEC (23-33) Sodium Level 144 MMOL/L (136-145) Potassium Level 4.0 MMOL/L (3.5-5.1) Chloride Level 104 MMOL/L (98-107) Carbon Dioxide Level 38 MMOL/L (21-32) Anion Gap 2 mmol/L (5-15) Blood Urea Nitrogen 30 mg/dL (7-18) Creatinine 1.5 MG/DL (0.55-1.30) Estimat Glomerular Filtration Rate 49.9 mL/min (>60) Glucose Level 204 MG/DL (74-106) Uric Acid 6.5 MG/DL (2.6-7.2) Calcium Level 8.8 MG/DL (8.5-10.1) Phosphorus Level 4.0 MG/DL (2.5-4.9) Magnesium Level 2.2 MG/DL (1.8-2.4) Total Bilirubin 0.4 MG/DL (0.2-1.0) Aspartate Amino Transf (AST/SGOT) 10 U/L (15-37) Alanine Aminotransferase (ALT/SGPT) 34 U/L (12-78) Alkaline Phosphatase 62 U/L (46-116) C-Reactive Protein, Quantitative < 0.4 mg/dL (0.00-0.90) Pro-B-Type Natriuretic Peptide 494 pg/mL (0-125) Total Protein 6.8 G/DL (6.4-8.2) Albumin 3.5 G/DL (3.4-5.0) Globulin 3.3 g/dL Albumin/Globulin Ratio 1.1 (1.0-2.7) Digoxin Level 0.5 NG/ML (0.5-2.0) Height (Feet): 5 Height (Inches): 10.00 Weight (Pounds): 411 Objective Physical Exam General: Awake and alert, nad HEENT: NC/AT. EOMI. tympanic membranes are deeply erythematous though nonbulging , no effusion Cardiovascular: RRR. S1 and S2 normal. No murmur appreciated Resp: Normal work of breathing. No cough, wheezing or crackles appreciated Abdomen: Abdomen is soft, nondistended. Nontender Skin: Intact. No abrasions, laceration or rash over the exposed skin MSK: Normal tone and bulk. Moving all extremities. No obvious deformity. Ext: 1+ edema Harsh Lehman MD Apr 11, 2019 06:58
--- NOTE | 2019-04-11 07:11 | NUR ---
HAND-OFF: Report given to KEESHA Matute per SBAR.
--- NOTE | 2019-04-11 07:25 | NUR ---
NURSE NOTES: Received report from KEESHA Donahue. Patient is alert, oriented X4 and sitting on the bed. On O2 2L/min via N/C. O2 sat 98% on the monitor. No acute distress/SOB noted. Patient denies any pain/discomfort at this time. Left FA 22G IV intact and running with heparin drip 11 units/kg/hr. Right AC 20G intact, clean and patent. Offered breakfast. kept dry, clean and comfortable. Call light placed in easy reach. Will continue plan of care.
[2019-04-11] MEDS: Solu-MEDROL 40mg Inj IVP SCH ×2 (08:21→17:19)
[2019-04-11] MEDS: Docusate 100mg cap ORAL SCH ×3 (08:22→17:19)
[2019-04-11] MEDS: Aspirin Baby 81mg ORAL SCH (08:23)
--- NOTE | 2019-04-11 08:54 | General Progress Note ---
Assessment/Plan Assessment/Plan: (1) Lumbar DDD (2) Lumbar Spondylosis (3) Morbid obesity Patient to be continued on Percocet and Morphine Parameters will be continued D/w Dr. Stack and he concurred. Subjective Date patient seen: Apr 11, 2019 Time patient seen: 08:00 - am Allergies: Coded Allergies: RIVAROXABAN (Verified Allergy, Unknown, 04/05/19) Subjective REVIEW OF SYSTEMS: Denies rash, fever, chills at this time, sweating, dizziness, drowsiness, blurred vision, sore throat, change in weight. No nausea, vomiting, diarrhea, or blood in the stool or urine. No dysuria. He is complaining of low back pain. SUBJECTIVE: Patient is in bed and showing no signs of pain. Objective Last 24 Hour Vital Signs Date Time Temp Pulse Resp B/P (MAP) Pulse Ox O2 Delivery O2 Flow Rate FiO2 04/11/19 08:23 80 04/11/19 07:39 75 20 99 Nasal Cannula 2.0 28 76 20 94 04/11/19 07:37 96 Nasal Cannula 2.0 28 04/11/19 07:00 71 14 136/91 (106) 98 04/11/19 06:30 77 16 135/108 (117) 95 04/11/19 06:00 74 20 159/98 (118) 95 04/11/19 05:30 73 20 162/115 (131) 96 04/11/19 05:10 76 152/107 04/11/19 05:00 76 19 152/107 (122) 96 04/11/19 04:30 77 22 152/107 (122) 95 04/11/19 04:00 97.9 82 18 137/94 (108) 98 04/11/19 04:00 4.0 04/11/19 04:00 96 04/11/19 04:00 Bi-pap 04/11/19 03:30 76 12 137/94 (108) 96 04/11/19 03:09 71 20 96 Bi-Pap 30 04/11/19 03:08 74 20 99 Facial 30 04/11/19 03:00 81 13 168/108 (128) 97 04/11/19 02:55 70 19 98 Facial 30 04/11/19 02:34 98.0 04/11/19 02:30 82 19 165/111 (129) 96 04/11/19 02:00 72 20 182/100 (127) 95 04/11/19 01:59 180/96 04/11/19 01:30 90 24 168/112 (130) 96 04/11/19 01:00 90 17 156/101 (119) 97 04/11/19 00:30 69 21 147/91 (109) 95 04/11/19 00:00 73 04/11/19 00:00 86 155/93 04/11/19 00:00 Bi-pap 04/11/19 00:00 30 04/11/19 00:00 98.0 80 15 139/110 (120) 95 04/10/19 23:30 73 15 155/93 (113) 95 04/10/19 23:00 80 19 152/92 (112) 96 04/10/19 22:55 67 19 100 Bi-Pap 30 71 17 98 04/10/19 22:30 30 04/10/19 22:30 80 17 149/67 (94) 97 04/10/19 22:27 72 18 95 Facial 30 04/10/19 22:00 92 24 131/82 (98) 95 04/10/19 21:56 77 04/10/19 21:30 95 22 148/84 (105) 97 04/10/19 21:00 90 22 153/126 (135) 97 04/10/19 20:30 109 24 135/121 (126) 88 04/10/19 20:15 94 17 125/65 (85) 97 04/10/19 20:00 4.0 04/10/19 20:00 Nasal Cannula 4.0 04/10/19 20:00 98.3 87 23 142/73 (96) 96 04/10/19 19:45 97 23 129/80 (96) 96 04/10/19 19:30 100 26 118/75 (89) 92 04/10/19 19:15 94 21 145/82 (103) 96 04/10/19 19:10 97 Nasal Cannula 2.0 28 04/10/19 19:10 98 21 97 04/10/19 19:00 99 20 145/93 (110) 94 04/10/19 18:30 112 29 99/75 (83) 92 04/10/19 18:00 105 27 138/77 (97) 97 04/10/19 17:30 107 21 165/123 (137) 91 04/10/19 17:10 108 170/103 04/10/19 17:09 108 04/10/19 17:00 87 24 143/93 (110) 96 04/10/19 17:00 98 26 143/93 (110) 96 04/10/19 16:30 90 25 170/103 (125) 95 04/10/19 16:15 100 25 153/81 (105) 96 04/10/19 16:00 83 04/10/19 16:00 Nasal Cannula 4.0 04/10/19 16:00 4.0 04/10/19 16:00 98.5 112 15 154/89 (110) 95 04/10/19 15:30 81 22 126/77 (93) 95 04/10/19 15:15 79 12 99 Nasal Cannula 2.0 28 82 22 95 04/10/19 15:15 81 19 126/77 (93) 95 04/10/19 15:15 81 19 126/77 (93) 95 04/10/19 15:00 112 22 126/77 (93) 95 04/10/19 14:45 82 33 124/104 (111) 95 04/10/19 14:30 87 26 117/66 (83) 93 04/10/19 14:30 87 26 117/66 (83) 93 04/10/19 14:00 91 22 122/69 (86) 93 04/10/19 13:30 92 28 114/68 (83) 91 04/10/19 13:00 106 29 134/76 (95) 88 04/10/19 12:30 99 26 143/87 (105) 92 04/10/19 12:16 108 137/78 04/10/19 12:00 98.5 98 29 137/78 (97) 92 04/10/19 12:00 93 04/10/19 12:00 Nasal Cannula 4.0 04/10/19 12:00 4.0 04/10/19 11:30 103 28 132/83 (99) 95 04/10/19 11:00 84 27 137/87 (104) 90 04/10/19 10:33 75 22 99 Nasal Cannula 2.0 28 88 14 94 04/10/19 10:30 88 21 152/91 (111) 96 04/10/19 10:00 77 23 138/83 (101) 92 04/10/19 09:30 78 24 94 04/10/19 09:00 81 24 150/92 (111) 94 Intake and Output 04/10/19 04/11/19 19:00 07:00 Intake Total 1168.232 ml 728.35 ml Output Total 2450 ml 3450 ml Balance -1281.768 ml -2721.65 ml Intake Oral 580 ml 150 ml IV Total 588.232 ml 578.35 ml Output Urine Total 2450 ml 3450 ml # Voids 8 5 # Bowel Movements 1 1 Laboratory Tests 04/10/19 11:40: Activated Partial Thromboplast Time > 150*H 04/10/19 19:35: Activated Partial Thromboplast Time 62H 04/11/19 03:00: Activated Partial Thromboplast Time 128H, White Blood Count 18.4H, Red Blood Count 5.71, Hemoglobin 14.2, Hematocrit 45.1, Mean Corpuscular Volume 79L, Mean Corpuscular Hemoglobin 24.8L, Mean Corpuscular Hemoglobin Concent 31.5L, Red Cell Distribution Width 15.6H, Platelet Count 275, Mean Platelet Volume 9.1, Neutrophils (%) (Auto) , Lymphocytes (%) (Auto) , Monocytes (%) (Auto) , Eosinophils (%) (Auto) , Basophils (%) (Auto) , Differential Total Cells Counted 100, Neutrophils % (Manual) 84H, Lymphocytes % (Manual) 10L, Monocytes % (Manual) 6, Eosinophils % (Manual) 0, Basophils % (Manual) 0, Band Neutrophils 0, Platelet Estimate Adequate, Platelet Morphology Normal, Sodium Level 144, Potassium Level 4.0, Chloride Level 104, Carbon Dioxide Level 38H, Anion Gap 2L, Blood Urea Nitrogen 30H, Creatinine 1.5H, Estimat Glomerular Filtration Rate 49.9, Glucose Level 204H, Uric Acid 6.5, Calcium Level 8.8, Phosphorus Level 4.0, Magnesium Level 2.2, Total Bilirubin 0.4, Aspartate Amino Transf (AST/SGOT) 10L, Alanine Aminotransferase (ALT/SGPT) 34, Alkaline Phosphatase 62, C-Reactive Protein, Quantitative < 0.4, Pro-B-Type Natriuretic Peptide 494H, Total Protein 6.8, Albumin 3.5, Globulin 3.3, Albumin/Globulin Ratio 1.1, Digoxin Level 0.5 Height (Feet): 5 Height (Inches): 10.00 Weight (Pounds): 411 Objective GENERAL: Alert, awake, and oriented. LUNGS: Decreased breath sounds bilaterally. HEART: S1 and S2 regular. ABDOMEN: Obese.. EXTREMITIES: No cyanosis. No clubbing. NEURO: No changes. Osito Sultana Apr 11, 2019 08:54
--- NOTE | 2019-04-11 09:26 | NUR ---
NURSE NOTES: Seen by Dr. Yin and assessed patient.
--- NOTE | 2019-04-11 10:40 | NUR ---
NURSE NOTES: Martine from lab is here to collect blood for PTT. Patient is in restroom. Will follow up.
--- NOTE | 2019-04-11 12:00 | Nephrology Progress Note ---
Assessment/Plan Problem List: (1) Hypokalemia (2) CHF (congestive heart failure) (3) Renal failure (4) Obesity, morbid, BMI 50 or higher (5) CO2 retention (6) COPD (chronic obstructive pulmonary disease) Assessment elevated Cr likely due to diuresis Obesity , NATASHA AT fib with FVR HTN Congestive heart failure, likely diastolic dysfunction. EF 60% Recurrent NSVT. No syncope. Hypertension. Morbid obesity. COPD. Lipidemia. Plan Keep BP in check Monitor lytes B12 and Folic acid Diamox PO per orders per cardio and pulmonary taper steroids as possible Subjective ROS Limited/Unobtainable: No Constitutional: Reports: malaise, weakness Objective Objective Last 24 Hour Vital Signs Date Time Temp Pulse Resp B/P (MAP) Pulse Ox O2 Delivery O2 Flow Rate FiO2 04/11/19 09:30 70 21 132/95 (107) 94 04/11/19 09:00 81 24 101/77 (85) 91 04/11/19 08:23 80 04/11/19 08:00 Bi-pap 04/11/19 08:00 4.0 04/11/19 08:00 66 04/11/19 08:00 97.7 79 24 159/94 (115) 88 04/11/19 07:39 75 20 99 Nasal Cannula 2.0 28 76 20 94 04/11/19 07:37 96 Nasal Cannula 2.0 28 04/11/19 07:30 72 19 134/77 (96) 98 04/11/19 07:00 71 14 136/91 (106) 98 04/11/19 06:30 77 16 135/108 (117) 95 04/11/19 06:00 74 20 159/98 (118) 95 04/11/19 05:30 73 20 162/115 (131) 96 04/11/19 05:10 76 152/107 04/11/19 05:00 76 19 152/107 (122) 96 04/11/19 04:30 77 22 152/107 (122) 95 04/11/19 04:00 97.9 82 18 137/94 (108) 98 04/11/19 04:00 4.0 04/11/19 04:00 96 04/11/19 04:00 Bi-pap 04/11/19 03:30 76 12 137/94 (108) 96 04/11/19 03:09 71 20 96 Bi-Pap 30 04/11/19 03:08 74 20 99 Facial 30 04/11/19 03:00 81 13 168/108 (128) 97 04/11/19 02:55 70 19 98 Facial 30 04/11/19 02:34 98.0 04/11/19 02:30 82 19 165/111 (129) 96 04/11/19 02:00 72 20 182/100 (127) 95 04/11/19 01:59 180/96 04/11/19 01:30 90 24 168/112 (130) 96 04/11/19 01:00 90 17 156/101 (119) 97 04/11/19 00:30 69 21 147/91 (109) 95 04/11/19 00:00 73 04/11/19 00:00 86 155/93 04/11/19 00:00 Bi-pap 04/11/19 00:00 30 04/11/19 00:00 98.0 80 15 139/110 (120) 95 04/10/19 23:30 73 15 155/93 (113) 95 04/10/19 23:00 80 19 152/92 (112) 96 04/10/19 22:55 67 19 100 Bi-Pap 30 71 17 98 04/10/19 22:30 30 04/10/19 22:30 80 17 149/67 (94) 97 04/10/19 22:27 72 18 95 Facial 30 04/10/19 22:00 92 24 131/82 (98) 95 04/10/19 21:56 77 04/10/19 21:30 95 22 148/84 (105) 97 04/10/19 21:00 90 22 153/126 (135) 97 04/10/19 20:30 109 24 135/121 (126) 88 04/10/19 20:15 94 17 125/65 (85) 97 04/10/19 20:00 4.0 04/10/19 20:00 Nasal Cannula 4.0 04/10/19 20:00 98.3 87 23 142/73 (96) 96 04/10/19 19:45 97 23 129/80 (96) 96 04/10/19 19:30 100 26 118/75 (89) 92 04/10/19 19:15 94 21 145/82 (103) 96 04/10/19 19:10 97 Nasal Cannula 2.0 28 04/10/19 19:10 98 21 97 04/10/19 19:00 99 20 145/93 (110) 94 04/10/19 18:30 112 29 99/75 (83) 92 04/10/19 18:00 105 27 138/77 (97) 97 04/10/19 17:30 107 21 165/123 (137) 91 04/10/19 17:10 108 170/103 04/10/19 17:09 108 04/10/19 17:00 87 24 143/93 (110) 96 04/10/19 17:00 98 26 143/93 (110) 96 04/10/19 16:30 90 25 170/103 (125) 95 04/10/19 16:15 100 25 153/81 (105) 96 04/10/19 16:00 83 04/10/19 16:00 Nasal Cannula 4.0 04/10/19 16:00 4.0 04/10/19 16:00 98.5 112 15 154/89 (110) 95 04/10/19 15:30 81 22 126/77 (93) 95 04/10/19 15:15 79 12 99 Nasal Cannula 2.0 28 82 22 95 04/10/19 15:15 81 19 126/77 (93) 95 04/10/19 15:15 81 19 126/77 (93) 95 04/10/19 15:00 112 22 126/77 (93) 95 04/10/19 14:45 82 33 124/104 (111) 95 04/10/19 14:30 87 26 117/66 (83) 93 04/10/19 14:30 87 26 117/66 (83) 93 04/10/19 14:00 91 22 122/69 (86) 93 04/10/19 13:30 92 28 114/68 (83) 91 04/10/19 13:00 106 29 134/76 (95) 88 04/10/19 12:30 99 26 143/87 (105) 92 04/10/19 12:16 108 137/78 04/10/19 12:00 98.5 98 29 137/78 (97) 92 04/10/19 12:00 93 04/10/19 12:00 Nasal Cannula 4.0 04/10/19 12:00 4.0 Intake and Output 04/10/19 04/11/19 19:00 07:00 Intake Total 1168.232 ml 728.35 ml Output Total 2450 ml 3450 ml Balance -1281.768 ml -2721.65 ml Intake Oral 580 ml 150 ml IV Total 588.232 ml 578.35 ml Output Urine Total 2450 ml 3450 ml # Voids 8 5 # Bowel Movements 1 1 Laboratory Tests 04/10/19 19:35: Activated Partial Thromboplast Time 62H 04/11/19 03:00: Activated Partial Thromboplast Time 128H, White Blood Count 18.4H, Red Blood Count 5.71, Hemoglobin 14.2, Hematocrit 45.1, Mean Corpuscular Volume 79L, Mean Corpuscular Hemoglobin 24.8L, Mean Corpuscular Hemoglobin Concent 31.5L, Red Cell Distribution Width 15.6H, Platelet Count 275, Mean Platelet Volume 9.1, Neutrophils (%) (Auto) , Lymphocytes (%) (Auto) , Monocytes (%) (Auto) , Eosinophils (%) (Auto) , Basophils (%) (Auto) , Differential Total Cells Counted 100, Neutrophils % (Manual) 84H, Lymphocytes % (Manual) 10L, Monocytes % (Manual) 6, Eosinophils % (Manual) 0, Basophils % (Manual) 0, Band Neutrophils 0, Platelet Estimate Adequate, Platelet Morphology Normal, Sodium Level 144, Potassium Level 4.0, Chloride Level 104, Carbon Dioxide Level 38H, Anion Gap 2L, Blood Urea Nitrogen 30H, Creatinine 1.5H, Estimat Glomerular Filtration Rate 49.9, Glucose Level 204H, Uric Acid 6.5, Calcium Level 8.8, Phosphorus Level 4.0, Magnesium Level 2.2, Total Bilirubin 0.4, Aspartate Amino Transf (AST/SGOT) 10L, Alanine Aminotransferase (ALT/SGPT) 34, Alkaline Phosphatase 62, C-Reactive Protein, Quantitative < 0.4, Pro-B-Type Natriuretic Peptide 494H, Total Protein 6.8, Albumin 3.5, Globulin 3.3, Albumin/Globulin Ratio 1.1, Digoxin Level 0.5 04/11/19 11:15: Activated Partial Thromboplast Time [Pending] Height (Feet): 5 Height (Inches): 10.00 Weight (Pounds): 411 General Appearance: no apparent distress Cardiovascular: normal rate Respiratory/Chest: decreased breath sounds Abdomen: distended Bebeto Yin MD Apr 11, 2019 12:00
[2019-04-11] MEDS ORDERED: Heparin 25,000u/D5W 500ml 500 ML IV SCH (12:15)
[2019-04-11] MEDS ORDERED: Heparin 5000 units/ml inj IV SCH (12:15)
--- NOTE | 2019-04-11 15:42 | Cardiac Electrophysiology PN ---
Assessment/Plan Assessment/Plan 1. Congestive heart failure due to diastolic dysfunction. On Lasix 80 mg IV b.i.d. EF 60% 2. Recurrent NSVT. No syncope. Nl EF. Will schedule for stress test as out patient as couldn't fit in camera. No CP 3. Hypertension. Continue Lasix and Cardizem 4. Atrial fib with RVR. On Cardizem 90 mg po q 6 hrs and Digoxin 0.25 po daily Dig level 0.5 today 5. Morbid obesity. 6. COPD. On Solu-Medrol and CPAP 7. Lipidemia. On Lipitor. KIAN RN Subjective Subjective In ICU for atrial fib with RVR. On Cardizem drip off but on heparin drip No more VT Objective Last 24 Hour Vital Signs Date Time Temp Pulse Resp B/P (MAP) Pulse Ox O2 Delivery O2 Flow Rate FiO2 04/11/19 14:52 75 20 99 Nasal Cannula 2.0 28 82 20 98 04/11/19 14:00 76 25 154/97 (116) 95 04/11/19 13:30 78 23 122/104 (110) 95 04/11/19 13:00 84 22 108/88 (95) 98 04/11/19 12:30 83 18 126/106 (113) 100 04/11/19 12:25 82 147/71 04/11/19 12:11 82 20 98 Nasal Cannula 2.0 28 92 24 93 04/11/19 12:00 4.0 04/11/19 12:00 Nasal Cannula 4.0 04/11/19 12:00 97.7 81 21 160/102 (121) 97 04/11/19 11:30 89 22 137/121 (126) 94 04/11/19 11:00 67 24 185/98 (127) 92 04/11/19 10:00 71 22 137/85 (102) 90 04/11/19 09:30 70 21 132/95 (107) 94 04/11/19 09:00 81 24 101/77 (85) 91 04/11/19 08:23 80 04/11/19 08:00 Bi-pap 04/11/19 08:00 4.0 04/11/19 08:00 66 04/11/19 08:00 97.7 79 24 159/94 (115) 88 04/11/19 07:39 75 20 99 Nasal Cannula 2.0 28 76 20 94 04/11/19 07:37 96 Nasal Cannula 2.0 28 04/11/19 07:30 72 19 134/77 (96) 98 04/11/19 07:00 71 14 136/91 (106) 98 04/11/19 06:30 77 16 135/108 (117) 95 04/11/19 06:00 74 20 159/98 (118) 95 04/11/19 05:30 73 20 162/115 (131) 96 04/11/19 05:10 76 152/107 04/11/19 05:00 76 19 152/107 (122) 96 04/11/19 04:30 77 22 152/107 (122) 95 04/11/19 04:00 97.9 82 18 137/94 (108) 98 04/11/19 04:00 4.0 04/11/19 04:00 96 04/11/19 04:00 Bi-pap 04/11/19 03:30 76 12 137/94 (108) 96 04/11/19 03:09 71 20 96 Bi-Pap 30 04/11/19 03:08 74 20 99 Facial 30 04/11/19 03:00 81 13 168/108 (128) 97 04/11/19 02:55 70 19 98 Facial 30 04/11/19 02:34 98.0 04/11/19 02:30 82 19 165/111 (129) 96 04/11/19 02:00 72 20 182/100 (127) 95 04/11/19 01:59 180/96 04/11/19 01:30 90 24 168/112 (130) 96 04/11/19 01:00 90 17 156/101 (119) 97 04/11/19 00:30 69 21 147/91 (109) 95 04/11/19 00:00 73 04/11/19 00:00 86 155/93 04/11/19 00:00 Bi-pap 04/11/19 00:00 30 04/11/19 00:00 98.0 80 15 139/110 (120) 95 04/10/19 23:30 73 15 155/93 (113) 95 04/10/19 23:00 80 19 152/92 (112) 96 04/10/19 22:55 67 19 100 Bi-Pap 30 71 17 98 04/10/19 22:30 30 04/10/19 22:30 80 17 149/67 (94) 97 04/10/19 22:27 72 18 95 Facial 30 04/10/19 22:00 92 24 131/82 (98) 95 04/10/19 21:56 77 04/10/19 21:30 95 22 148/84 (105) 97 04/10/19 21:00 90 22 153/126 (135) 97 04/10/19 20:30 109 24 135/121 (126) 88 04/10/19 20:15 94 17 125/65 (85) 97 04/10/19 20:00 4.0 04/10/19 20:00 Nasal Cannula 4.0 04/10/19 20:00 98.3 87 23 142/73 (96) 96 04/10/19 19:45 97 23 129/80 (96) 96 04/10/19 19:30 100 26 118/75 (89) 92 04/10/19 19:15 94 21 145/82 (103) 96 04/10/19 19:10 97 Nasal Cannula 2.0 28 04/10/19 19:10 98 21 97 04/10/19 19:00 99 20 145/93 (110) 94 04/10/19 18:30 112 29 99/75 (83) 92 04/10/19 18:00 105 27 138/77 (97) 97 04/10/19 17:30 107 21 165/123 (137) 91 04/10/19 17:10 108 170/103 04/10/19 17:09 108 04/10/19 17:00 87 24 143/93 (110) 96 04/10/19 17:00 98 26 143/93 (110) 96 04/10/19 16:30 90 25 170/103 (125) 95 04/10/19 16:15 100 25 153/81 (105) 96 04/10/19 16:00 83 04/10/19 16:00 Nasal Cannula 4.0 04/10/19 16:00 4.0 04/10/19 16:00 98.5 112 15 154/89 (110) 95 Intake and Output 04/10/19 04/11/19 19:00 07:00 Intake Total 1168.232 ml 728.35 ml Output Total 2450 ml 3450 ml Balance -1281.768 ml -2721.65 ml Intake Oral 580 ml 150 ml IV Total 588.232 ml 578.35 ml Output Urine Total 2450 ml 3450 ml # Voids 8 5 # Bowel Movements 1 1 Laboratory Tests Test 04/10/19 19:35 04/11/19 03:00 04/11/19 11:15 Activated Partial Thromboplast Time 62 SEC (23-33) H 128 SEC (23-33) H 60 SEC (23-33) H White Blood Count 18.4 K/UL (4.8-10.8) H Red Blood Count 5.71 M/UL (4.70-6.10) Hemoglobin 14.2 G/DL (14.2-18.0) Hematocrit 45.1 % (42.0-52.0) Mean Corpuscular Volume 79 FL (80-99) L Mean Corpuscular Hemoglobin 24.8 PG (27.0-31.0) L Mean Corpuscular Hemoglobin Concent 31.5 G/DL (32.0-36.0) L Red Cell Distribution Width 15.6 % (11.6-14.8) H Platelet Count 275 K/UL (150-450) Mean Platelet Volume 9.1 FL (6.5-10.1) Neutrophils (%) (Auto) % (45.0-75.0) Lymphocytes (%) (Auto) % (20.0-45.0) Monocytes (%) (Auto) % (1.0-10.0) Eosinophils (%) (Auto) % (0.0-3.0) Basophils (%) (Auto) % (0.0-2.0) Differential Total Cells Counted 100 Neutrophils % (Manual) 84 % (45-75) H Lymphocytes % (Manual) 10 % (20-45) L Monocytes % (Manual) 6 % (1-10) Eosinophils % (Manual) 0 % (0-3) Basophils % (Manual) 0 % (0-2) Band Neutrophils 0 % (0-8) Platelet Estimate Adequate Platelet Morphology Normal Sodium Level 144 MMOL/L (136-145) Potassium Level 4.0 MMOL/L (3.5-5.1) Chloride Level 104 MMOL/L (98-107) Carbon Dioxide Level 38 MMOL/L (21-32) H Anion Gap 2 mmol/L (5-15) L Blood Urea Nitrogen 30 mg/dL (7-18) H Creatinine 1.5 MG/DL (0.55-1.30) H Estimat Glomerular Filtration Rate 49.9 mL/min (>60) Glucose Level 204 MG/DL (74-106) H Uric Acid 6.5 MG/DL (2.6-7.2) Calcium Level 8.8 MG/DL (8.5-10.1) Phosphorus Level 4.0 MG/DL (2.5-4.9) Magnesium Level 2.2 MG/DL (1.8-2.4) Total Bilirubin 0.4 MG/DL (0.2-1.0) Aspartate Amino Transf (AST/SGOT) 10 U/L (15-37) L Alanine Aminotransferase (ALT/SGPT) 34 U/L (12-78) Alkaline Phosphatase 62 U/L (46-116) C-Reactive Protein, Quantitative < 0.4 mg/dL (0.00-0.90) Pro-B-Type Natriuretic Peptide 494 pg/mL (0-125) H Total Protein 6.8 G/DL (6.4-8.2) Albumin 3.5 G/DL (3.4-5.0) Globulin 3.3 g/dL Albumin/Globulin Ratio 1.1 (1.0-2.7) Digoxin Level 0.5 NG/ML (0.5-2.0) Objective HEENT: No JVD. LUNGS: Coarse rhonchi. CARDIOVASCULAR: Regular S1 and S2 with no gallop or murmur. ABDOMEN: Soft. EXTREMITIES: 3+ pitting edema. Sandor Doll MD Apr 11, 2019 15:42
--- NOTE | 2019-04-11 15:47 | NUR ---
NURSE NOTES: Seen by Dr. Doll and discontinued Heparin drip and switched to eliquis 5mg BIG. Patient stated that "He takes eliquis at home. He does not have allergy to eliquis.". Will continue plan of care.
[2019-04-11] MEDS: Guaifenesin/DM 10ml syrup ORAL PRN (15:56)
--- NOTE | 2019-04-11 16:15 | NUR ---
NURSE NOTES: Seen by Dr. Wise and assessed patient. No new order at this time.
[2019-04-11] MEDS: Eliquis 5mg tablet ORAL SCH (17:19)
--- NOTE | 2019-04-11 17:20 | NUR ---
NURSE NOTES: Offered dinner. 100% intake. Educated about fluid restriction again. Patient verbalized understanding.
--- NOTE | 2019-04-11 19:11 | NUR ---
NURSE NOTES: SBAR from Eom RN. Patient is AAOX4. Able to make needs known. Patient is on NC at 4L and saturating at 94%. L FA 22G noted SL. Patient is able to void using urinal. Educated patient on using the call light before trying to get up to urinate. Patient discussed back understanding. At this time, patient denies chest discomfort, or SOB or pain. Patient does sit up high semi-fowlers position for comfort.
--- NOTE | 2019-04-11 19:16 | NUR ---
HAND-OFF: Report given to KEESHA Bowers. Endorsed plan of care.
--- NOTE | 2019-04-11 20:13 | General Progress Note ---
Assessment/Plan Problem List: (1) Hypokalemia ICD Codes: E87.6 - Hypokalemia SNOMED: 59067778 (2) CHF (congestive heart failure) ICD Codes: I50.9 - Heart failure, unspecified SNOMED: 08015650 (3) Lower back pain ICD Codes: M54.5 - Low back pain SNOMED: 993400727 Status: tolerating diet Assessment/Plan: chf exacerbation is getting worse sleep apnea weak rhonci lyte abnormality obesity edema chf fluid management Subjective ROS Limited/Unobtainable: Yes Allergies: Coded Allergies: RIVAROXABAN (Verified Allergy, Unknown, 04/05/19) Objective Last 24 Hour Vital Signs Date Time Temp Pulse Resp B/P (MAP) Pulse Ox O2 Delivery O2 Flow Rate FiO2 04/11/19 20:00 4.0 04/11/19 20:00 80 04/11/19 20:00 Nasal Cannula 4.0 04/11/19 20:00 98.2 95 25 125/80 (95) 96 04/11/19 19:58 78 25 98 Nasal Cannula 2.0 28 04/11/19 19:48 95 Nasal Cannula 2.0 28 04/11/19 19:48 89 22 95 Nasal Cannula 2.0 28 04/11/19 19:00 75 25 106/63 (77) 96 04/11/19 18:00 75 24 145/89 (107) 94 04/11/19 17:20 75 179/129 04/11/19 17:00 75 24 170/103 (125) 96 04/11/19 16:00 97.8 75 24 144/83 (103) 94 04/11/19 16:00 75 04/11/19 16:00 4.0 04/11/19 16:00 Nasal Cannula 4.0 04/11/19 15:00 72 22 145/90 (108) 100 04/11/19 14:52 75 20 99 Nasal Cannula 2.0 28 82 20 98 04/11/19 14:00 76 25 154/97 (116) 95 04/11/19 13:30 78 23 122/104 (110) 95 04/11/19 13:00 84 22 108/88 (95) 98 04/11/19 12:30 83 18 126/106 (113) 100 04/11/19 12:25 82 147/71 04/11/19 12:11 82 20 98 Nasal Cannula 2.0 28 92 24 93 04/11/19 12:00 4.0 04/11/19 12:00 87 04/11/19 12:00 Nasal Cannula 4.0 04/11/19 12:00 97.7 81 21 160/102 (121) 97 04/11/19 11:30 89 22 137/121 (126) 94 04/11/19 11:00 67 24 185/98 (127) 92 04/11/19 10:00 71 22 137/85 (102) 90 04/11/19 09:30 70 21 132/95 (107) 94 04/11/19 09:00 81 24 101/77 (85) 91 04/11/19 08:23 80 04/11/19 08:00 Bi-pap 04/11/19 08:00 4.0 04/11/19 08:00 66 04/11/19 08:00 97.7 79 24 159/94 (115) 88 04/11/19 07:39 75 20 99 Nasal Cannula 2.0 28 76 20 94 04/11/19 07:37 96 Nasal Cannula 2.0 28 04/11/19 07:30 72 19 134/77 (96) 98 04/11/19 07:00 71 14 136/91 (106) 98 04/11/19 06:30 77 16 135/108 (117) 95 04/11/19 06:00 74 20 159/98 (118) 95 04/11/19 05:30 73 20 162/115 (131) 96 04/11/19 05:10 76 152/107 04/11/19 05:00 76 19 152/107 (122) 96 04/11/19 04:30 77 22 152/107 (122) 95 04/11/19 04:00 97.9 82 18 137/94 (108) 98 04/11/19 04:00 4.0 04/11/19 04:00 96 04/11/19 04:00 Bi-pap 04/11/19 03:30 76 12 137/94 (108) 96 04/11/19 03:09 71 20 96 Bi-Pap 30 04/11/19 03:08 74 20 99 Facial 30 04/11/19 03:00 81 13 168/108 (128) 97 04/11/19 02:55 70 19 98 Facial 30 04/11/19 02:34 98.0 04/11/19 02:30 82 19 165/111 (129) 96 04/11/19 02:00 72 20 182/100 (127) 95 04/11/19 01:59 180/96 04/11/19 01:30 90 24 168/112 (130) 96 04/11/19 01:00 90 17 156/101 (119) 97 04/11/19 00:30 69 21 147/91 (109) 95 04/11/19 00:00 73 04/11/19 00:00 86 155/93 04/11/19 00:00 Bi-pap 04/11/19 00:00 30 04/11/19 00:00 98.0 80 15 139/110 (120) 95 04/10/19 23:30 73 15 155/93 (113) 95 04/10/19 23:00 80 19 152/92 (112) 96 04/10/19 22:55 67 19 100 Bi-Pap 30 71 17 98 04/10/19 22:30 30 04/10/19 22:30 80 17 149/67 (94) 97 04/10/19 22:27 72 18 95 Facial 30 04/10/19 22:00 92 24 131/82 (98) 95 04/10/19 21:56 77 04/10/19 21:30 95 22 148/84 (105) 97 04/10/19 21:00 90 22 153/126 (135) 97 04/10/19 20:30 109 24 135/121 (126) 88 04/10/19 20:15 94 17 125/65 (85) 97 Intake and Output 04/10/19 04/11/19 19:00 07:00 Intake Total 1168.232 ml 728.35 ml Output Total 2450 ml 3450 ml Balance -1281.768 ml -2721.65 ml Intake Oral 580 ml 150 ml IV Total 588.232 ml 578.35 ml Output Urine Total 2450 ml 3450 ml # Voids 8 5 # Bowel Movements 1 1 Laboratory Tests 04/11/19 03:00: White Blood Count 18.4H, Red Blood Count 5.71, Hemoglobin 14.2, Hematocrit 45.1 , Mean Corpuscular Volume 79L, Mean Corpuscular Hemoglobin 24.8L, Mean Corpuscular Hemoglobin Concent 31.5L, Red Cell Distribution Width 15.6H, Platelet Count 275, Mean Platelet Volume 9.1, Neutrophils (%) (Auto) , Lymphocytes (%) (Auto) , Monocytes (%) (Auto) , Eosinophils (%) (Auto) , Basophils (%) (Auto) , Differential Total Cells Counted 100, Neutrophils % ( Manual) 84H, Lymphocytes % (Manual) 10L, Monocytes % (Manual) 6, Eosinophils % ( Manual) 0, Basophils % (Manual) 0, Band Neutrophils 0, Platelet Estimate Adequate, Platelet Morphology Normal, Activated Partial Thromboplast Time 128H, Sodium Level 144, Potassium Level 4.0, Chloride Level 104, Carbon Dioxide Level 38H, Anion Gap 2L, Blood Urea Nitrogen 30H, Creatinine 1.5H, Estimat Glomerular Filtration Rate 49.9, Glucose Level 204H, Uric Acid 6.5, Calcium Level 8.8, Phosphorus Level 4.0, Magnesium Level 2.2, Total Bilirubin 0.4, Aspartate Amino Transf (AST/SGOT) 10L, Alanine Aminotransferase (ALT/SGPT) 34, Alkaline Phosphatase 62, C-Reactive Protein, Quantitative < 0.4, Pro-B-Type Natriuretic Peptide 494H, Total Protein 6.8, Albumin 3.5, Globulin 3.3, Albumin/Globulin Ratio 1.1, Digoxin Level 0.5 04/11/19 11:15: Activated Partial Thromboplast Time 60H Height (Feet): 5 Height (Inches): 10.00 Weight (Pounds): 411 Neck: supple Respiratory/Chest: lungs clear Brodie De Jesus MD Apr 11, 2019 20:13
[2019-04-11] MEDS: Atorvastatin 20mg tab ORAL SCH (20:20)
--- NOTE | 2019-04-11 21:00 | NUR ---
NURSE NOTES: Patient voided and had small BM.
--- NOTE | 2019-04-11 21:24 | Pulmonology Progress Note ---
Assessment/Plan Assessment/Plan Pulmonary Progress Note HPI The patient is a 48-year-old man with history of obesity and Congestive Heart Failure, admitted with chest pain, shortness of breath, fevera and chills as well as sore throat and ear pain for 3 to 4 days ago. Denies cough or sputum production, vomiting or diarrhea, no Lower extremity swelling. On PO meds for Afib, Less SOB Past Medical History: Obesity, Congestive Heart Failure, Chronic Obstructive Pulmonary Disease, Diabetes, Hypertension Allergies: RIVAROXABAN All Other Systems: negative except mentioned in HPI Physical Exam Vital Signs Noted General: Awake and alert, no acute distress HEENT: NC/AT. EOMI. tympanic membranes are erythematous, Pharynx is erythematous , no exudates, moist mm Cardiovascular: RRR. S1 and S2 normal. No murmur appreciated. Mild edema noted Resp: Normal work of breathing. CTAB Abdomen: Abdomen is soft, nondistended. Nontender Skin: Intact. No abrasions, laceration or rash over the exposed skin Extremities: Normal tone and bulk. Moving all extremities. No obvious deformity. Neuro: Awake and alert. Mentating appropriately. Impression: Congestive heart failure Viral Illness Chronic Obstructive Pulmonary Disease No focal Infiltrates Obesity Hypertension Diabetes Hypokalemia Plan - Diuresis PRN - IV Solumedrol, wean as tolerated - HHN - O2 PRN - BiPAP PRN/QHS - PO Doxycycline - ISS - PPX - RN [facility] Medications Laboratory Tests Noted EKG: Sinus rhythm with PACs. No ST segment changes. Normal intervals CXR: no consolidation, other - bilateral pulmonary congestion, questionable effusions. No obvious consolidation Subjective ROS Limited/Unobtainable: No Allergies: Coded Allergies: RIVAROXABAN (Verified Allergy, Unknown, 04/05/19) Objective Last 24 Hour Vital Signs Date Time Temp Pulse Resp B/P (MAP) Pulse Ox O2 Delivery O2 Flow Rate FiO2 04/11/19 20:00 4.0 04/11/19 20:00 80 04/11/19 20:00 Nasal Cannula 4.0 04/11/19 20:00 98.2 95 25 125/80 (95) 96 04/11/19 19:58 78 25 98 Nasal Cannula 2.0 28 04/11/19 19:48 95 Nasal Cannula 2.0 28 04/11/19 19:48 89 22 95 Nasal Cannula 2.0 28 04/11/19 19:00 75 25 106/63 (77) 96 04/11/19 18:00 75 24 145/89 (107) 94 04/11/19 17:20 75 179/129 04/11/19 17:00 75 24 170/103 (125) 96 04/11/19 16:00 97.8 75 24 144/83 (103) 94 04/11/19 16:00 75 04/11/19 16:00 4.0 04/11/19 16:00 Nasal Cannula 4.0 04/11/19 15:00 72 22 145/90 (108) 100 04/11/19 14:52 75 20 99 Nasal Cannula 2.0 28 82 20 98 04/11/19 14:00 76 25 154/97 (116) 95 04/11/19 13:30 78 23 122/104 (110) 95 04/11/19 13:00 84 22 108/88 (95) 98 04/11/19 12:30 83 18 126/106 (113) 100 04/11/19 12:25 82 147/71 04/11/19 12:11 82 20 98 Nasal Cannula 2.0 28 92 24 93 04/11/19 12:00 4.0 04/11/19 12:00 87 04/11/19 12:00 Nasal Cannula 4.0 04/11/19 12:00 97.7 81 21 160/102 (121) 97 04/11/19 11:30 89 22 137/121 (126) 94 04/11/19 11:00 67 24 185/98 (127) 92 04/11/19 10:00 71 22 137/85 (102) 90 04/11/19 09:30 70 21 132/95 (107) 94 04/11/19 09:00 81 24 101/77 (85) 91 04/11/19 08:23 80 04/11/19 08:00 Bi-pap 04/11/19 08:00 4.0 04/11/19 08:00 66 04/11/19 08:00 97.7 79 24 159/94 (115) 88 04/11/19 07:39 75 20 99 Nasal Cannula 2.0 28 76 20 94 04/11/19 07:37 96 Nasal Cannula 2.0 28 04/11/19 07:30 72 19 134/77 (96) 98 04/11/19 07:00 71 14 136/91 (106) 98 04/11/19 06:30 77 16 135/108 (117) 95 04/11/19 06:00 74 20 159/98 (118) 95 04/11/19 05:30 73 20 162/115 (131) 96 04/11/19 05:10 76 152/107 04/11/19 05:00 76 19 152/107 (122) 96 04/11/19 04:30 77 22 152/107 (122) 95 04/11/19 04:00 97.9 82 18 137/94 (108) 98 04/11/19 04:00 4.0 04/11/19 04:00 96 04/11/19 04:00 Bi-pap 04/11/19 03:30 76 12 137/94 (108) 96 04/11/19 03:09 71 20 96 Bi-Pap 30 04/11/19 03:08 74 20 99 Facial 30 04/11/19 03:00 81 13 168/108 (128) 97 04/11/19 02:55 70 19 98 Facial 30 04/11/19 02:34 98.0 04/11/19 02:30 82 19 165/111 (129) 96 04/11/19 02:00 72 20 182/100 (127) 95 04/11/19 01:59 180/96 04/11/19 01:30 90 24 168/112 (130) 96 04/11/19 01:00 90 17 156/101 (119) 97 04/11/19 00:30 69 21 147/91 (109) 95 04/11/19 00:00 73 04/11/19 00:00 86 155/93 04/11/19 00:00 Bi-pap 04/11/19 00:00 30 04/11/19 00:00 98.0 80 15 139/110 (120) 95 04/10/19 23:30 73 15 155/93 (113) 95 04/10/19 23:00 80 19 152/92 (112) 96 04/10/19 22:55 67 19 100 Bi-Pap 30 71 17 98 04/10/19 22:30 30 04/10/19 22:30 80 17 149/67 (94) 97 04/10/19 22:27 72 18 95 Facial 30 04/10/19 22:00 92 24 131/82 (98) 95 04/10/19 21:56 77 04/10/19 21:30 95 22 148/84 (105) 97 Intake and Output 04/10/19 04/11/19 19:00 07:00 Intake Total 1168.232 ml 728.35 ml Output Total 2450 ml 3450 ml Balance -1281.768 ml -2721.65 ml Intake Oral 580 ml 150 ml IV Total 588.232 ml 578.35 ml Output Urine Total 2450 ml 3450 ml # Voids 8 5 # Bowel Movements 1 1 Laboratory Tests 04/11/19 03:00: White Blood Count 18.4H, Red Blood Count 5.71, Hemoglobin 14.2, Hematocrit 45.1 , Mean Corpuscular Volume 79L, Mean Corpuscular Hemoglobin 24.8L, Mean Corpuscular Hemoglobin Concent 31.5L, Red Cell Distribution Width 15.6H, Platelet Count 275, Mean Platelet Volume 9.1, Neutrophils (%) (Auto) , Lymphocytes (%) (Auto) , Monocytes (%) (Auto) , Eosinophils (%) (Auto) , Basophils (%) (Auto) , Differential Total Cells Counted 100, Neutrophils % ( Manual) 84H, Lymphocytes % (Manual) 10L, Monocytes % (Manual) 6, Eosinophils % ( Manual) 0, Basophils % (Manual) 0, Band Neutrophils 0, Platelet Estimate Adequate, Platelet Morphology Normal, Activated Partial Thromboplast Time 128H, Sodium Level 144, Potassium Level 4.0, Chloride Level 104, Carbon Dioxide Level 38H, Anion Gap 2L, Blood Urea Nitrogen 30H, Creatinine 1.5H, Estimat Glomerular Filtration Rate 49.9, Glucose Level 204H, Uric Acid 6.5, Calcium Level 8.8, Phosphorus Level 4.0, Magnesium Level 2.2, Total Bilirubin 0.4, Aspartate Amino Transf (AST/SGOT) 10L, Alanine Aminotransferase (ALT/SGPT) 34, Alkaline Phosphatase 62, C-Reactive Protein, Quantitative < 0.4, Pro-B-Type Natriuretic Peptide 494H, Total Protein 6.8, Albumin 3.5, Globulin 3.3, Albumin/Globulin Ratio 1.1, Digoxin Level 0.5 04/11/19 11:15: Activated Partial Thromboplast Time 60H Current Medications Medications (Trade) Dose Ordered Sig/David Route PRN Reason Start Time Stop Time Status Last Admin Dose Admin Acetaminophen (Tylenol) 650 mg Q6H PRN ORAL Mild Pain/Temp > 100.5 04/08/19 18:28 05/08/19 18:27 Acetazolamide (Diamox) 250 mg TWICE A DAY ORAL 04/10/19 12:00 05/10/19 11:59 04/11/19 17:19 Albuterol/ Ipratropium (Albuterol/ Ipratropium) 3 ml Q4HRT HHN 04/11/19 03:00 04/16/19 02:59 04/11/19 19:48 Apixaban (Eliquis) 5 mg BID ORAL 04/11/19 18:00 05/11/19 17:59 04/11/19 17:19 Aspirin (ASA) 81 mg DAILY ORAL 04/09/19 09:00 05/06/19 08:59 04/11/19 08:23 Atorvastatin Calcium (Lipitor) 40 mg BEDTIME ORAL 04/08/19 21:00 05/06/19 20:59 04/11/19 20:20 Clonidine HCl (Catapres Tab) 0.1 mg Q4H PRN ORAL bp over 165 syst 04/08/19 18:28 05/08/19 18:27 04/11/19 01:59 Digoxin (Lanoxin) 0.25 mg DAILY ORAL 04/11/19 09:00 05/11/19 08:59 04/11/19 08:23 Diltiazem HCl (Cardizem) 90 mg EVERY 6 HOURS ORAL 04/09/19 18:00 05/09/19 17:59 04/11/19 17:20 Docusate Sodium (Colace) 100 mg THREE TIMES A DAY ORAL 04/09/19 09:00 05/09/19 08:59 04/11/19 17:19 Folic Acid (Folate) 1 mg DAILY ORAL 04/10/19 11:00 05/10/19 10:59 04/11/19 08:23 Furosemide (Lasix) 80 mg Q12HR@0600,1800 IV 04/09/19 06:00 05/08/19 17:59 04/11/19 17:19 Gabapentin (Neurontin) 600 mg BID ORAL 12/7/19 09:00 05/06/19 17:59 04/11/19 17:20 Guaifenesin/ Dextromethorphan (Robitussin DM Syrup) 5 ml Q4H PRN ORAL For Cough 04/10/19 19:30 05/10/19 19:29 04/11/19 15:56 Methylprednisolone Sodium Succinate (Solu-MEDROL) 40 mg BID IVP 04/10/19 09:00 05/06/19 05:59 04/11/19 17:19 Morphine Sulfate (Morphine Sulfate) 1 mg Q6H PRN IVP Breakthrough Pain 04/08/19 18:29 04/15/19 18:28 04/11/19 15:12 Ondansetron HCl (Zofran) 4 mg Q6H PRN IVP Nausea & Vomiting 04/08/19 18:30 05/08/19 18:29 Oxycodone/ Acetaminophen (Percocet 5-325) 1 tab Q4H PRN ORAL Severe Pain (Pain Scale 7-10) 04/08/19 18:29 04/15/19 18:28 04/10/19 01:46 Pantoprazole (Protonix) 40 mg EVERY 12 HOURS ORAL 04/09/19 09:00 05/09/19 08:59 04/11/19 20:20 Potassium Chloride (K-Dur) 40 meq BID ORAL 04/09/19 09:00 05/06/19 08:59 04/11/19 17:20 Regadenoson (Lexiscan) 0.4 mg ONCE PRN IV CARDIOLOGY 04/08/19 18:29 04/11/19 23:59 Mahesh Wise MD Apr 11, 2019 21:24
--- NOTE | 2019-04-11 21:36 | NUR ---
NURSE NOTES: Patient complaining of general pain all over body. 1mg of Morphine given IVP then placed BIPAP 15/6 at 30% FiO2. Patient denies SOB at this time. NSR on the monitor. BP is stable at this time.
[2019-04-11] MEDS ORDERED: Tubing IV Secondary IV ONE (21:44)
--- NOTE | 2019-04-11 21:45 | NUR ---
RESPIRATORY NOTE: Pt asked to be placed on BiPAP. Pt now on BiPAP 15/6, back up rate 14, 30%. Pt is on a facial mask, skin intact, no redness/breakdowns noted. Foam tape applied on pt's nosebridge/cheeks to prevent mask irritations. Pt alert/awake, follows commands. B/S silviano. diminished, nonproductive cough. BiPAP plugged into red outlet, alarms on & audible. Pt in no apparent distress at this time. Will continue plan of care.
--- NOTE | 2019-04-11 22:00 | NUR ---
NURSE NOTES: Patient sleeping but easily arousable. Patient denies pain at this time, pain scale 0/10 Eric hearn. HR continues NSR and BP is stable. Afebrile. Remains on BIPAP at high fowlers position.
--- NOTE | 2019-04-11 23:00 | NUR ---
NURSE NOTES: Patient refused scheduled breathing treatment. Advised patient of the benefits and risks. Patient still refuses breathing treatment and states he preferred to sleep at this time uninterrupted. Will respect patients rights and wishes. No SOB at this time. NSR.
[2019-04-12] VITALS (17 sets, daily range): BP systolic 136–179; BP diastolic 73–118
--- NOTE | 2019-04-12 | NUR ---
NURSE NOTES: Patient sleeping at this time. No acute distress or discomfort observed at this time. HR is 69 NSR and blood pressure is stable. Easily arousable. Remains on the bipap.
--- NOTE | 2019-04-12 01:14 | NUR ---
NURSE NOTES: Removed Bipap and placed on 2L NC.
--- NOTE | 2019-04-12 02:00 | NUR ---
NURSE NOTES: Patient awake, VSS, no acute distress, high fowlers.
[2019-04-12] MEDS: Albuterol/Ipratropium 3ml neb HHN SCH ×6 (03:19→23:55)
[2019-04-12] MEDS: Morphine Sulfate 2mg/ml Inj(IV/IM USE ONLY) IVP PRN ×4 (03:57→22:53)
--- NOTE | 2019-04-12 04:00 | NUR ---
NURSE NOTES: Patient voided and cleaned. VSS. Afebrile. Patient placed back on bipap for a while. Morphine 1mg IVP given for general pain alll over body 10/10 adams hearn scale. Patient denies SOB or any chest pain at this time.
[2019-04-12] MEDS: dilTIAZem HCl 90mg tab ORAL SCH ×4 (05:06→23:38)
[2019-04-12 05:52] LABS: ANION GAP 7 mmol/L (5-15); BLOOD UREA NITROGEN 36 mg/dL (7-18); CALCIUM 8.7 MG/DL (8.5-10.1); CARBON DIOXIDE 32 MMOL/L (21-32); CHLORIDE 104 MMOL/L (98-107); CREATININE 1.5 MG/DL (0.55-1.30); SODIUM 143 MMOL/L (136-145)
[2019-04-12 05:53] LABS: HEMATOCRIT 42.5 % (42.0-52.0); HEMOGLOBIN 13.3 G/DL (14.2-18.0); MEAN CORPUSCULAR VOLUME 79 FL (80-99); PLATELET COUNT 258 K/UL (150-450); RED BLOOD COUNT 5.35 M/UL (4.70-6.10); WHITE BLOOD COUNT 18.6 K/UL (4.8-10.8)
--- NOTE | 2019-04-12 06:08 | NUR ---
NURSE NOTES: AM medications given. 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 Patient had no episode of SOB, or chest pain overnight. Patient does complain often about receiving more fluids and more foods but educational reinforcement regarding plan of care is often needed to remind patient of outcome goals. Patient right now is on NC at 2L and saturating at 94%. CO2 monitoring ranging in the 40s throughout the shift. Current HR is 62 NSR, 171/96, Afebrile, RR 20 and normal work of breathing observed.
--- NOTE | 2019-04-12 06:51 | Hematology/Onc Progress Note ---
Assessment/Plan Assessment/Plan Assessment and Recs: # Secondary hypercoagulable disorder, has afib with rvr, w/u as per cards --> initially on heparin gtt --> NOW OFF --> cardizem po started for rhythm control --> per cards agree with apixaban # Leukocytosis is likely due to steriod use --> wbc trend 15-->20k-->18-->19 --> steriod taper --> abx as per id # Hypokalemia --> per renal, replete k --> diuresis # CHF (congestive heart failure) --> on lasix bid dosing, per cards # Obesity --> weight loss recommended --> lifestyle modification # Afib with rvr per cards --> on apixban # Dvt ppx apix DW Rn and appreciate consultation. Subjective HEENT: Denies: no symptoms, eye pain, blurred vision, tearing, double vision, ear pain, ear discharge, nose pain, nose congestion, throat pain, throat swelling, mouth pain, mouth swelling, other Cardiovascular: Denies: no symptoms, chest pain, edema, irregular heart rate, lightheadedness, palpitations, syncope, other Respiratory: Denies: no symptoms, cough, shortness of breath, SOB with excertion, SOB at rest, sputum, wheezing, other Gastrointestinal/Abdominal: Denies: no symptoms, abdomen distended, abdominal pain, black stools, tarry stools, blood in stool, constipated, diarrhea, difficulty swallowing, nausea, poor appetite, poor fluid intake, rectal bleeding , vomiting, other Genitourinary: Denies: no symptoms, burning, discharge, frequency, flank pain, hematuria, incontinence, pain, urgency, other Neurologic/Psychiatric: Denies: no symptoms, anxiety, depressed, emotional problems, headache, numbness, paresthesia, pre-existing deficit, seizure, tingling, tremors, weakness, other Endocrine: Denies: no symptoms, excessive sweating, flushing, intolerance to cold, intolerance to heat, increased hunger, increased thirst, increased urine, unexplained weight gain, unexplained weight loss, other Allergies: Coded Allergies: RIVAROXABAN (Verified Allergy, Unknown, 04/05/19) Subjective 04/11: remains on diltz and heparin gtt, oon bipap o/n 12/10: bipap overnight and 2lnc, as per cards on apixaban, still bp high Objective Objective Current Medications Medications (Trade) Dose Ordered Sig/David Route PRN Reason Start Time Stop Time Status Last Admin Dose Admin Acetaminophen (Tylenol) 650 mg Q6H PRN ORAL Mild Pain/Temp > 100.5 04/08/19 18:28 05/08/19 18:27 Acetazolamide (Diamox) 250 mg TWICE A DAY ORAL 04/10/19 12:00 05/10/19 11:59 04/11/19 17:19 Albuterol/ Ipratropium (Albuterol/ Ipratropium) 3 ml Q4HRT HHN 04/11/19 03:00 04/16/19 02:59 04/12/19 03:19 Apixaban (Eliquis) 5 mg BID ORAL 04/11/19 18:00 05/11/19 17:59 04/11/19 17:19 Aspirin (ASA) 81 mg DAILY ORAL 04/09/19 09:00 05/06/19 08:59 04/11/19 08:23 Atorvastatin Calcium (Lipitor) 40 mg BEDTIME ORAL 04/08/19 21:00 05/06/19 20:59 04/11/19 20:20 Clonidine HCl (Catapres Tab) 0.1 mg Q4H PRN ORAL bp over 165 syst 04/08/19 18:28 05/08/19 18:27 04/11/19 01:59 Digoxin (Lanoxin) 0.25 mg DAILY ORAL 04/11/19 09:00 05/11/19 08:59 04/11/19 08:23 Diltiazem HCl (Cardizem) 90 mg EVERY 6 HOURS ORAL 04/09/19 18:00 05/09/19 17:59 04/12/19 05:06 Docusate Sodium (Colace) 100 mg THREE TIMES A DAY ORAL 04/09/19 09:00 05/09/19 08:59 04/11/19 17:19 Folic Acid (Folate) 1 mg DAILY ORAL 04/10/19 11:00 05/10/19 10:59 04/11/19 08:23 Furosemide (Lasix) 80 mg Q12HR@0600,1800 IV 04/09/19 06:00 05/08/19 17:59 04/12/19 05:06 Gabapentin (Neurontin) 600 mg BID ORAL 04/09/19 09:00 05/06/19 17:59 04/11/19 17:20 Guaifenesin/ Dextromethorphan (Robitussin DM Syrup) 5 ml Q4H PRN ORAL For Cough 04/10/19 19:30 05/10/19 19:29 04/11/19 15:56 Methylprednisolone Sodium Succinate (Solu-MEDROL) 40 mg BID IVP 04/10/19 09:00 05/06/19 05:59 04/11/19 17:19 Morphine Sulfate (Morphine Sulfate) 1 mg Q6H PRN IVP Breakthrough Pain 04/08/19 18:29 04/15/19 18:28 04/12/19 03:57 Ondansetron HCl (Zofran) 4 mg Q6H PRN IVP Nausea & Vomiting 04/08/19 18:30 05/08/19 18:29 Oxycodone/ Acetaminophen (Percocet 5-325) 1 tab Q4H PRN ORAL Severe Pain (Pain Scale 7-10) 04/08/19 18:29 04/15/19 18:28 04/10/19 01:46 Pantoprazole (Protonix) 40 mg EVERY 12 HOURS ORAL 04/09/19 09:00 05/09/19 08:59 04/11/19 20:20 Potassium Chloride (K-Dur) 40 meq BID ORAL 04/09/19 09:00 05/06/19 08:59 04/11/19 17:20 Last 24 Hour Vital Signs Date Time Temp Pulse Resp B/P (MAP) Pulse Ox O2 Delivery O2 Flow Rate FiO2 04/12/19 06:00 69 19 174/95 (121) 94 04/12/19 05:46 2.0 04/12/19 05:45 Nasal Cannula 2.0 04/12/19 05:06 72 160/88 04/12/19 05:00 71 21 166/92 (116) 95 04/12/19 04:00 Bi-pap 04/12/19 04:00 72 04/12/19 04:00 98.6 72 20 160/88 (112) 97 04/12/19 03:29 68 24 97 Nasal Cannula 2.0 28 04/12/19 03:19 66 22 97 Facial 30 04/12/19 03:19 66 22 97 Bi-Pap 30 04/12/19 03:00 30 04/12/19 03:00 81 23 174/92 (119) 94 04/12/19 02:00 71 22 160/110 (127) 95 04/12/19 01:06 2.0 04/12/19 01:00 72 20 165/89 (114) 97 04/12/19 00:00 99.2 66 20 158/79 (105) 96 04/12/19 00:00 66 04/12/19 00:00 Bi-pap 04/12/19 00:00 30 04/11/19 23:40 70 22 97 Facial 30 04/11/19 23:06 71 143/91 04/11/19 23:00 85 19 162/80 (107) 96 04/11/19 22:00 71 21 143/91 (108) 99 04/11/19 21:45 74 20 97 Facial 30 04/11/19 21:30 30 04/11/19 21:00 79 23 90/63 (72) 96 04/11/19 20:00 4.0 04/11/19 20:00 80 04/11/19 20:00 Nasal Cannula 4.0 04/11/19 20:00 98.2 95 25 125/80 (95) 96 04/11/19 19:58 78 25 98 Nasal Cannula 2.0 28 04/11/19 19:48 95 Nasal Cannula 2.0 28 04/11/19 19:48 89 22 95 Nasal Cannula 2.0 28 04/11/19 19:00 75 25 106/63 (77) 96 04/11/19 18:00 75 24 145/89 (107) 94 04/11/19 17:20 75 179/129 04/11/19 17:00 75 24 170/103 (125) 96 04/11/19 16:00 97.8 75 24 144/83 (103) 94 04/11/19 16:00 75 04/11/19 16:00 4.0 04/11/19 16:00 Nasal Cannula 4.0 04/11/19 15:00 72 22 145/90 (108) 100 04/11/19 14:52 75 20 99 Nasal Cannula 2.0 28 82 20 98 04/11/19 14:00 76 25 154/97 (116) 95 04/11/19 13:30 78 23 122/104 (110) 95 04/11/19 13:00 84 22 108/88 (95) 98 04/11/19 12:30 83 18 126/106 (113) 100 04/11/19 12:25 82 147/71 04/11/19 12:11 82 20 98 Nasal Cannula 2.0 28 92 24 93 04/11/19 12:00 4.0 04/11/19 12:00 87 04/11/19 12:00 Nasal Cannula 4.0 04/11/19 12:00 97.7 81 21 160/102 (121) 97 04/11/19 11:30 89 22 137/121 (126) 94 04/11/19 11:00 67 24 185/98 (127) 92 04/11/19 10:00 71 22 137/85 (102) 90 04/11/19 09:30 70 21 132/95 (107) 94 04/11/19 09:00 81 24 101/77 (85) 91 04/11/19 08:23 80 04/11/19 08:00 Bi-pap 04/11/19 08:00 4.0 04/11/19 08:00 66 04/11/19 08:00 97.7 79 24 159/94 (115) 88 04/11/19 07:39 75 20 99 Nasal Cannula 2.0 28 76 20 94 04/11/19 07:37 96 Nasal Cannula 2.0 28 04/11/19 07:30 72 19 134/77 (96) 98 04/11/19 07:00 71 14 136/91 (106) 98 04/11/19 06:30 77 16 135/108 (117) 95 04/11/19 06:00 74 20 159/98 (118) 95 04/11/19 05:30 73 20 162/115 (131) 96 04/11/19 05:10 76 152/107 04/11/19 05:00 76 19 152/107 (122) 96 04/11/19 04:30 77 22 152/107 (122) 95 04/11/19 04:00 97.9 82 18 137/94 (108) 98 04/11/19 04:00 4.0 04/11/19 04:00 96 04/11/19 04:00 Bi-pap 04/11/19 03:30 76 12 137/94 (108) 96 04/11/19 03:09 71 20 96 Bi-Pap 30 04/11/19 03:08 74 20 99 Facial 30 04/11/19 03:00 81 13 168/108 (128) 97 04/11/19 02:55 70 19 98 Facial 30 04/11/19 02:34 98.0 04/11/19 02:30 82 19 165/111 (129) 96 04/11/19 02:00 72 20 182/100 (127) 95 04/11/19 01:59 180/96 04/11/19 01:30 90 24 168/112 (130) 96 04/11/19 01:00 90 17 156/101 (119) 97 04/11/19 00:30 69 21 147/91 (109) 95 04/11/19 00:00 73 04/11/19 00:00 86 155/93 04/11/19 00:00 Bi-pap 04/11/19 00:00 30 04/11/19 00:00 98.0 80 15 139/110 (120) 95 04/10/19 23:30 73 15 155/93 (113) 95 04/10/19 23:00 80 19 152/92 (112) 96 04/10/19 22:55 67 19 100 Bi-Pap 30 71 17 98 04/10/19 22:30 30 04/10/19 22:30 80 17 149/67 (94) 97 04/10/19 22:27 72 18 95 Facial 30 04/10/19 22:00 92 24 131/82 (98) 95 04/10/19 21:56 77 04/10/19 21:30 95 22 148/84 (105) 97 04/10/19 21:00 90 22 153/126 (135) 97 04/10/19 20:30 109 24 135/121 (126) 88 04/10/19 20:15 94 17 125/65 (85) 97 04/10/19 20:00 4.0 04/10/19 20:00 Nasal Cannula 4.0 04/10/19 20:00 98.3 87 23 142/73 (96) 96 04/10/19 19:45 97 23 129/80 (96) 96 04/10/19 19:30 100 26 118/75 (89) 92 04/10/19 19:15 94 21 145/82 (103) 96 04/10/19 19:10 97 Nasal Cannula 2.0 28 04/10/19 19:10 98 21 97 04/10/19 19:00 99 20 145/93 (110) 94 04/10/19 18:30 112 29 99/75 (83) 92 04/10/19 18:00 105 27 138/77 (97) 97 04/10/19 17:30 107 21 165/123 (137) 91 04/10/19 17:10 108 170/103 04/10/19 17:09 108 04/10/19 17:00 87 24 143/93 (110) 96 04/10/19 17:00 98 26 143/93 (110) 96 04/10/19 16:30 90 25 170/103 (125) 95 04/10/19 16:15 100 25 153/81 (105) 96 04/10/19 16:00 83 04/10/19 16:00 Nasal Cannula 4.0 04/10/19 16:00 4.0 04/10/19 16:00 98.5 112 15 154/89 (110) 95 04/10/19 15:30 81 22 126/77 (93) 95 04/10/19 15:15 79 12 99 Nasal Cannula 2.0 28 82 22 95 04/10/19 15:15 81 19 126/77 (93) 95 04/10/19 15:15 81 19 126/77 (93) 95 04/10/19 15:00 112 22 126/77 (93) 95 04/10/19 14:45 82 33 124/104 (111) 95 04/10/19 14:30 87 26 117/66 (83) 93 04/10/19 14:30 87 26 117/66 (83) 93 04/10/19 14:00 91 22 122/69 (86) 93 04/10/19 13:30 92 28 114/68 (83) 91 04/10/19 13:00 106 29 134/76 (95) 88 04/10/19 12:30 99 26 143/87 (105) 92 04/10/19 12:16 108 137/78 04/10/19 12:00 98.5 98 29 137/78 (97) 92 04/10/19 12:00 93 04/10/19 12:00 Nasal Cannula 4.0 04/10/19 12:00 4.0 04/10/19 11:30 103 28 132/83 (99) 95 04/10/19 11:00 84 27 137/87 (104) 90 04/10/19 10:33 75 22 99 Nasal Cannula 2.0 28 88 14 94 04/10/19 10:30 88 21 152/91 (111) 96 04/10/19 10:00 77 23 138/83 (101) 92 04/10/19 09:30 78 24 94 04/10/19 09:00 81 24 150/92 (111) 94 04/10/19 08:30 84 20 134/73 (93) 94 04/10/19 08:01 84 04/10/19 08:00 Nasal Cannula 4.0 04/10/19 08:00 4.0 04/10/19 08:00 99.0 87 25 129/69 (89) 94 04/10/19 07:30 95 33 137/72 (93) 94 04/10/19 07:08 96 Nasal Cannula 2.0 28 04/10/19 07:00 89 23 136/85 (102) 98 Intake and Output 04/11/19 04/12/19 18:59 06:59 Intake Total 1073.292 ml 400 ml Output Total 1300 ml 2150 ml Balance -226.708 ml -1750 ml Intake Oral 660 ml IV Total 413.292 ml Other 400 ml Output Urine Total 1300 ml 2150 ml # Bowel Movements 2 1 Labs Test 04/09/19 11:00 04/09/19 18:20 04/10/19 04:14 04/10/19 11:40 Activated Partial Thromboplast Time 37 SEC (23-33) 77 SEC (23-33) 48 SEC (23-33) > 150 SEC (23-33) White Blood Count 20.3 K/UL (4.8-10.8) Red Blood Count 5.42 M/UL (4.70-6.10) Hemoglobin 13.3 G/DL (14.2-18.0) Hematocrit 42.6 % (42.0-52.0) Mean Corpuscular Volume 79 FL (80-99) Mean Corpuscular Hemoglobin 24.5 PG (27.0-31.0) Mean Corpuscular Hemoglobin Concent 31.2 G/DL (32.0-36.0) Red Cell Distribution Width 15.1 % (11.6-14.8) Platelet Count 266 K/UL (150-450) Mean Platelet Volume 9.1 FL (6.5-10.1) Neutrophils (%) (Auto) % (45.0-75.0) Lymphocytes (%) (Auto) % (20.0-45.0) Monocytes (%) (Auto) % (1.0-10.0) Eosinophils (%) (Auto) % (0.0-3.0) Basophils (%) (Auto) % (0.0-2.0) Differential Total Cells Counted 100 Neutrophils % (Manual) 70 % (45-75) Lymphocytes % (Manual) 15 % (20-45) Monocytes % (Manual) 15 % (1-10) Eosinophils % (Manual) 0 % (0-3) Basophils % (Manual) 0 % (0-2) Band Neutrophils 0 % (0-8) Platelet Estimate Adequate Platelet Morphology Normal Sodium Level 145 MMOL/L (136-145) Potassium Level 3.6 MMOL/L (3.5-5.1) Chloride Level 105 MMOL/L (98-107) Carbon Dioxide Level 44 MMOL/L (21-32) Anion Gap -3 mmol/L (5-15) Blood Urea Nitrogen 30 mg/dL (7-18) Creatinine 1.4 MG/DL (0.55-1.30) Estimat Glomerular Filtration Rate 54.1 mL/min (>60) Glucose Level 189 MG/DL (74-106) Calcium Level 8.9 MG/DL (8.5-10.1) Phosphorus Level 3.3 MG/DL (2.5-4.9) Magnesium Level 2.1 MG/DL (1.8-2.4) Total Bilirubin 0.3 MG/DL (0.2-1.0) Gamma Glutamyl Transpeptidase 42 U/L (5-85) Aspartate Amino Transf (AST/SGOT) 9 U/L (15-37) Alanine Aminotransferase (ALT/SGPT) 38 U/L (12-78) Alkaline Phosphatase 63 U/L (46-116) C-Reactive Protein, Quantitative 0.9 mg/dL (0.00-0.90) Pro-B-Type Natriuretic Peptide 1183 pg/mL (0-125) Total Protein 6.6 G/DL (6.4-8.2) Albumin 3.4 G/DL (3.4-5.0) Globulin 3.2 g/dL Albumin/Globulin Ratio 1.1 (1.0-2.7) Vitamin B12 Level 226 PG/ML (193-986) Folate 5.3 NG/ML (8.6-58.9) Free Thyroxine 1.05 NG/DL (0.76-1.46) Free Triiodothyronine 2.1 pg/mL (2.3-4.2) Test 04/10/19 19:35 04/11/19 03:00 04/11/19 11:15 04/12/19 04:00 Activated Partial Thromboplast Time 62 SEC (23-33) 128 SEC (23-33) 60 SEC (23-33) White Blood Count 18.4 K/UL (4.8-10.8) 18.6 K/UL (4.8-10.8) Red Blood Count 5.71 M/UL (4.70-6.10) 5.35 M/UL (4.70-6.10) Hemoglobin 14.2 G/DL (14.2-18.0) 13.3 G/DL (14.2-18.0) Hematocrit 45.1 % (42.0-52.0) 42.5 % (42.0-52.0) Mean Corpuscular Volume 79 FL (80-99) 79 FL (80-99) Mean Corpuscular Hemoglobin 24.8 PG (27.0-31.0) 24.9 PG (27.0-31.0) Mean Corpuscular Hemoglobin Concent 31.5 G/DL (32.0-36.0) 31.4 G/DL (32.0-36.0) Red Cell Distribution Width 15.6 % (11.6-14.8) 16.0 % (11.6-14.8) Platelet Count 275 K/UL (150-450) 258 K/UL (150-450) Mean Platelet Volume 9.1 FL (6.5-10.1) 9.1 FL (6.5-10.1) Neutrophils (%) (Auto) % (45.0-75.0) % (45.0-75.0) Lymphocytes (%) (Auto) % (20.0-45.0) % (20.0-45.0) Monocytes (%) (Auto) % (1.0-10.0) % (1.0-10.0) Eosinophils (%) (Auto) % (0.0-3.0) % (0.0-3.0) Basophils (%) (Auto) % (0.0-2.0) % (0.0-2.0) Differential Total Cells Counted 100 Neutrophils % (Manual) 84 % (45-75) Lymphocytes % (Manual) 10 % (20-45) Monocytes % (Manual) 6 % (1-10) Eosinophils % (Manual) 0 % (0-3) Basophils % (Manual) 0 % (0-2) Band Neutrophils 0 % (0-8) Platelet Estimate Adequate Platelet Morphology Normal Sodium Level 144 MMOL/L (136-145) 143 MMOL/L (136-145) Potassium Level 4.0 MMOL/L (3.5-5.1) 4.0 MMOL/L (3.5-5.1) Chloride Level 104 MMOL/L (98-107) 104 MMOL/L (98-107) Carbon Dioxide Level 38 MMOL/L (21-32) 32 MMOL/L (21-32) Anion Gap 2 mmol/L (5-15) 7 mmol/L (5-15) Blood Urea Nitrogen 30 mg/dL (7-18) 36 mg/dL (7-18) Creatinine 1.5 MG/DL (0.55-1.30) 1.5 MG/DL (0.55-1.30) Estimat Glomerular Filtration Rate 49.9 mL/min (>60) 49.9 mL/min (>60) Glucose Level 204 MG/DL (74-106) 152 MG/DL (74-106) Uric Acid 6.5 MG/DL (2.6-7.2) Calcium Level 8.8 MG/DL (8.5-10.1) 8.7 MG/DL (8.5-10.1) Phosphorus Level 4.0 MG/DL (2.5-4.9) Magnesium Level 2.2 MG/DL (1.8-2.4) Total Bilirubin 0.4 MG/DL (0.2-1.0) Aspartate Amino Transf (AST/SGOT) 10 U/L (15-37) Alanine Aminotransferase (ALT/SGPT) 34 U/L (12-78) Alkaline Phosphatase 62 U/L (46-116) C-Reactive Protein, Quantitative < 0.4 mg/dL (0.00-0.90) Pro-B-Type Natriuretic Peptide 494 pg/mL (0-125) Total Protein 6.8 G/DL (6.4-8.2) Albumin 3.5 G/DL (3.4-5.0) Globulin 3.3 g/dL Albumin/Globulin Ratio 1.1 (1.0-2.7) Digoxin Level 0.5 NG/ML (0.5-2.0) Height (Feet): 5 Height (Inches): 10.00 Weight (Pounds): 411 Objective Physical Exam General: Awake and alert, nad HEENT: NC/AT. EOMI. tympanic membranes are deeply erythematous though nonbulging , no effusion Cardiovascular: RRR. S1 and S2 normal. No murmur appreciated Resp: Normal work of breathing. No cough, wheezing or crackles appreciated Abdomen: Abdomen is soft, nondistended. Nontender Skin: Intact. No abrasions, laceration or rash over the exposed skin MSK: Normal tone and bulk. Moving all extremities. No obvious deformity. Ext: 1+ edema Harsh Lehman MD Apr 12, 2019 06:51
--- NOTE | 2019-04-12 07:16 | NUR ---
HAND-OFF: Report given to Pina THAO.
--- NOTE | 2019-04-12 07:30 | NUR ---
NURSE NOTES: late entry: Received pt from [facility], pt sitting up, dangling legs at side of bed. pt has no c/o pain, sob. monitor hr 77, bp 177/80, rr 21, 02say 99%, on 4lnc. pt verbal, A/0x4. pupils 2mm, sluggish. diminished breath sounds, no sputum or cough. abdomen large, round, distended. one bm at this A.M. IV FALGUNI 20g, tender but pt refuses another iv stick. bilateral radial and pedal pulses weak. lower extremity trace edema. educated pt on need to stay in bed, use call light. urinal at bedside. bed alarm on, call light in reach. contact precautions in place. education on medication side effects, fluid restriction guidelines and plan for transfer to tele today. will continue to implement plan of care.
[2019-04-12] MEDS: Solu-MEDROL 40mg Inj IVP SCH ×2 (08:07→17:11)
[2019-04-12] MEDS: Eliquis 5mg tablet ORAL SCH ×2 (08:08→17:12)
[2019-04-12] MEDS: Aspirin Baby 81mg ORAL SCH (08:08)
[2019-04-12] MEDS: Docusate 100mg cap ORAL SCH ×3 (08:09→17:11)
[2019-04-12] MEDS: Guaifenesin/DM 10ml syrup ORAL PRN ×2 (08:11→14:50)
--- NOTE | 2019-04-12 08:47 | NUR ---
CASE MANAGEMENT: REVIEW 04/10/19 SI: CHF . COPD . NSVT 99.0 87 25 129/69 94 % NC/4L WBC 20.3 CO2 44 BUN 30 CREAT 1.4 BG 189 [id number] PTT 150 IS: CARDIAEM OI Q6HR CLONIDINE Q4/PRN IV LASIX BID K-DUR PO BID IV SOLU-MEDROL BID DIGOXIN PO QD DIAMOX PO BID FOLATE PO QD GABAPENTIN PO BID LIPITOR PO QHS PROTONIX PO BID ELIQUIS PO BID ASA PO QD ALBUTEROL HHN Q4HR ICU STATUS DCP: PATIENT IS FROM HOME CASE MANAGEMENT: REVIEW 04/11/19 SI: CHF . COPD . NSVT 97.7 79 24 159/94 88%BIPAP 4L WBC 18.4 CO2 38 BUN 30 CREAT 1.5 BG 204 BNP 494 [id number] IS: CARDIAEM OI Q6HR CLONIDINE Q4/PRN IV LASIX BID K-DUR PO BID IV SOLU-MEDROL BID DIGOXIN PO QD DIAMOX PO BID FOLATE PO QD GABAPENTIN PO BID LIPITOR PO QHS PROTONIX PO BID ELIQUIS PO BID ASA PO QD ALBUTEROL HHN Q4HR ICU STATUS DCP: PATIENT IS FROM HOME CASE MANAGEMENT: REVIEW 04/12/19 SI: CHF . COPD . NSVT 77 21 155/80 99% NC/2L WBC 18.6 CO2 44 BUN 36 CREAT 1.5 BG 152 IS: CARDIAEM OI Q6HR CLONIDINE Q4/PRN IV LASIX BID K-DUR PO BID IV SOLU-MEDROL BID DIGOXIN PO QD DIAMOX PO BID FOLATE PO QD GABAPENTIN PO BID LIPITOR PO QHS PROTONIX PO BID ELIQUIS PO BID ASA PO QD ALBUTEROL HHN Q4HR ICU STATUS DCP: PATIENT IS FROM HOME Addendum: 04/12/19 at 1328 by GARCIA MOROCHO LVN TRANSFERRED TO TELE
--- NOTE | 2019-04-12 10:30 | NUR ---
NURSE NOTES: pt requested pain medication 11/10, generalized, aching, no radiation. IVP morphine 1mg given. vss. will continue to monitor.
--- NOTE | 2019-04-12 10:45 | NUR ---
NURSE NOTES: MD Doll saw pt in passing. will meet at new unit.
--- NOTE | 2019-04-12 11:00 | NUR ---
HAND-OFF: Report given to edvin mota rn. pt in no acute distress
--- NOTE | 2019-04-12 11:14 | Cardiac Electrophysiology PN ---
Assessment/Plan Assessment/Plan 1. Congestive heart failure due to diastolic dysfunction. On Lasix 80 mg IV b.i.d. EF 60% 2. Recurrent NSVT. No syncope. Nl EF. Stress test as out patient as couldn't fit in camera. No CP 3. Hypertension. Continue Lasix and Cardizem 4. Atrial fib with RVR. On Cardizem 90 mg po q 6 hrs and Digoxin 0.25 po daily Dig level 0.5 on 04/11/19 5. Morbid obesity. 6. COPD. On Solu-Medrol and CPAP 7. Lipidemia. On Lipitor. DW RN Subjective Subjective In ICU. Heart rate better on Po Dig and Cardizem. Being transferred to [facility]. No more VT Objective Last 24 Hour Vital Signs Date Time Temp Pulse Resp B/P (MAP) Pulse Ox O2 Delivery O2 Flow Rate FiO2 04/12/19 10:47 84 22 97 Nasal Cannula 2.0 28 84 21 93 04/12/19 08:30 75 23 158/86 (110) 100 04/12/19 08:11 73 04/12/19 08:00 77 21 155/80 (105) 99 04/12/19 08:00 74 04/12/19 08:00 Nasal Cannula 3.0 04/12/19 07:22 81 17 98 Nasal Cannula 2.0 28 75 23 96 04/12/19 07:12 96 Nasal Cannula 2.0 28 04/12/19 07:00 64 22 164/98 (120) 95 04/12/19 06:00 69 19 174/95 (121) 94 04/12/19 05:46 2.0 04/12/19 05:45 Nasal Cannula 2.0 04/12/19 05:06 72 160/88 04/12/19 05:00 71 21 166/92 (116) 95 04/12/19 04:00 Bi-pap 04/12/19 04:00 72 04/12/19 04:00 98.6 72 20 160/88 (112) 97 04/12/19 03:29 68 24 97 Nasal Cannula 2.0 28 04/12/19 03:19 66 22 97 Facial 30 04/12/19 03:19 66 22 97 Bi-Pap 30 04/12/19 03:00 30 04/12/19 03:00 81 23 174/92 (119) 94 04/12/19 02:00 71 22 160/110 (127) 95 04/12/19 01:06 2.0 04/12/19 01:00 72 20 165/89 (114) 97 04/12/19 00:00 99.2 66 20 158/79 (105) 96 04/12/19 00:00 66 04/12/19 00:00 Bi-pap 04/12/19 00:00 30 04/11/19 23:40 70 22 97 Facial 30 04/11/19 23:06 71 143/91 04/11/19 23:00 85 19 162/80 (107) 96 04/11/19 22:00 71 21 143/91 (108) 99 04/11/19 21:45 74 20 97 Facial 30 04/11/19 21:30 30 04/11/19 21:00 79 23 90/63 (72) 96 04/11/19 20:00 4.0 04/11/19 20:00 80 04/11/19 20:00 Nasal Cannula 4.0 04/11/19 20:00 98.2 95 25 125/80 (95) 96 04/11/19 19:58 78 25 98 Nasal Cannula 2.0 28 04/11/19 19:48 95 Nasal Cannula 2.0 28 04/11/19 19:48 89 22 95 Nasal Cannula 2.0 28 04/11/19 19:00 75 25 106/63 (77) 96 04/11/19 18:00 75 24 145/89 (107) 94 04/11/19 17:20 75 179/129 04/11/19 17:00 75 24 170/103 (125) 96 04/11/19 16:00 97.8 75 24 144/83 (103) 94 04/11/19 16:00 75 04/11/19 16:00 4.0 04/11/19 16:00 Nasal Cannula 4.0 04/11/19 15:00 72 22 145/90 (108) 100 04/11/19 14:52 75 20 99 Nasal Cannula 2.0 28 82 20 98 04/11/19 14:00 76 25 154/97 (116) 95 04/11/19 13:30 78 23 122/104 (110) 95 04/11/19 13:00 84 22 108/88 (95) 98 04/11/19 12:30 83 18 126/106 (113) 100 04/11/19 12:25 82 147/71 04/11/19 12:11 82 20 98 Nasal Cannula 2.0 28 92 24 93 04/11/19 12:00 4.0 04/11/19 12:00 87 04/11/19 12:00 Nasal Cannula 4.0 04/11/19 12:00 97.7 81 21 160/102 (121) 97 04/11/19 11:30 89 22 137/121 (126) 94 Intake and Output 04/11/19 04/12/19 19:00 07:00 Intake Total 1032.372 ml 400 ml Output Total 2100 ml 2150 ml Balance -1067.628 ml -1750 ml Intake Oral 660 ml IV Total 372.372 ml Other 400 ml Output Urine Total 2100 ml 2150 ml # Bowel Movements 2 1 Laboratory Tests Test 04/11/19 11:15 04/12/19 04:00 Activated Partial Thromboplast Time 60 SEC (23-33) H White Blood Count 18.6 K/UL (4.8-10.8) H Red Blood Count 5.35 M/UL (4.70-6.10) Hemoglobin 13.3 G/DL (14.2-18.0) L Hematocrit 42.5 % (42.0-52.0) Mean Corpuscular Volume 79 FL (80-99) L Mean Corpuscular Hemoglobin 24.9 PG (27.0-31.0) L Mean Corpuscular Hemoglobin Concent 31.4 G/DL (32.0-36.0) L Red Cell Distribution Width 16.0 % (11.6-14.8) H Platelet Count 258 K/UL (150-450) Mean Platelet Volume 9.1 FL (6.5-10.1) Neutrophils (%) (Auto) % (45.0-75.0) Lymphocytes (%) (Auto) % (20.0-45.0) Monocytes (%) (Auto) % (1.0-10.0) Eosinophils (%) (Auto) % (0.0-3.0) Basophils (%) (Auto) % (0.0-2.0) Neutrophils % (Manual) Pending Lymphocytes % (Manual) Pending Platelet Estimate Pending Platelet Morphology Pending Sodium Level 143 MMOL/L (136-145) Potassium Level 4.0 MMOL/L (3.5-5.1) Chloride Level 104 MMOL/L (98-107) Carbon Dioxide Level 32 MMOL/L (21-32) Anion Gap 7 mmol/L (5-15) Blood Urea Nitrogen 36 mg/dL (7-18) H Creatinine 1.5 MG/DL (0.55-1.30) H Estimat Glomerular Filtration Rate 49.9 mL/min (>60) Glucose Level 152 MG/DL (74-106) H Calcium Level 8.7 MG/DL (8.5-10.1) Digoxin Level 0.6 NG/ML (0.5-2.0) Objective HEENT: No JVD. LUNGS: Coarse rhonchi. CARDIOVASCULAR: Regular S1 and S2 with no gallop or murmur. ABDOMEN: Soft. EXTREMITIES: 3+ pitting edema. Sandor Doll MD Apr 12, 2019 11:14
--- NOTE | 2019-04-12 11:15 | NUR ---
NURSE NOTES: Pt was transferred from ICU via hospital bed. On NC 4L/min. AAO x 4. No c/o of distress. IV on LFA 22g intact and patent, with saline lock. Dry skin, otherwise intact. Orientation on new unit given. Belongings were accounted.
[2019-04-12] MEDS ORDERED: oxyCODONE HCL/Acetaminophen 5/325mg ORAL PRN (11:45)
--- NOTE | 2019-04-12 13:48 | NUR ---
*-* INSURANCE *-* ALL CLINICALS AND REVIEWS HAVE BEEN FAXED TO: [employer] AT THIS TIME, PLEASE FAX THE REVIEW/CLINICAL P- [phone] F [phone]...REVIEW/CLINICAL
--- NOTE | 2019-04-12 13:53 | Nephrology Progress Note ---
Assessment/Plan Problem List: (1) Hypokalemia (2) CHF (congestive heart failure) (3) Renal failure (4) Obesity, morbid, BMI 50 or higher (5) CO2 retention (6) COPD (chronic obstructive pulmonary disease) Assessment elevated Cr likely due to diuresis Obesity , NATASHA AT fib with FVR HTN Congestive heart failure, likely diastolic dysfunction. EF 60% Recurrent NSVT. No syncope. Hypertension. Morbid obesity. COPD. Lipidemia. Plan Keep BP in check Monitor lytes B12 and Folic acid Diamox PO per orders per cardio and pulmonary taper steroids as possible Subjective ROS Limited/Unobtainable: No Constitutional: Reports: malaise, weakness Objective Objective Last 24 Hour Vital Signs Date Time Temp Pulse Resp B/P (MAP) Pulse Ox O2 Delivery O2 Flow Rate FiO2 04/12/19 13:20 71 158/98 04/12/19 12:00 74 04/12/19 12:00 97.9 71 20 158/98 (118) 94 04/12/19 10:48 72 20 160/99 (119) 04/12/19 10:47 84 22 97 Nasal Cannula 2.0 28 84 21 93 04/12/19 10:07 78 20 167/94 (118) 98 04/12/19 10:04 179/91 (120) 04/12/19 09:00 98.0 75 23 136/73 (94) 96 04/12/19 08:30 75 23 158/86 (110) 100 04/12/19 08:11 73 04/12/19 08:00 77 21 155/80 (105) 99 04/12/19 08:00 74 04/12/19 08:00 Nasal Cannula 3.0 04/12/19 07:22 81 17 98 Nasal Cannula 2.0 28 75 23 96 04/12/19 07:12 96 Nasal Cannula 2.0 28 04/12/19 07:00 64 22 164/98 (120) 95 04/12/19 06:00 69 19 174/95 (121) 94 04/12/19 05:46 2.0 04/12/19 05:45 Nasal Cannula 2.0 04/12/19 05:06 72 160/88 04/12/19 05:00 71 21 166/92 (116) 95 04/12/19 04:00 Bi-pap 12/10/19 04:00 72 04/12/19 04:00 98.6 72 20 160/88 (112) 97 04/12/19 03:29 68 24 97 Nasal Cannula 2.0 28 04/12/19 03:19 66 22 97 Facial 30 04/12/19 03:19 66 22 97 Bi-Pap 30 04/12/19 03:00 30 04/12/19 03:00 81 23 174/92 (119) 94 04/12/19 02:00 71 22 160/110 (127) 95 04/12/19 01:06 2.0 04/12/19 01:00 72 20 165/89 (114) 97 04/12/19 00:00 99.2 66 20 158/79 (105) 96 04/12/19 00:00 66 04/12/19 00:00 Bi-pap 04/12/19 00:00 30 04/11/19 23:40 70 22 97 Facial 30 04/11/19 23:06 71 143/91 04/11/19 23:00 85 19 162/80 (107) 96 04/11/19 22:00 71 21 143/91 (108) 99 04/11/19 21:45 74 20 97 Facial 30 04/11/19 21:30 30 04/11/19 21:00 79 23 90/63 (72) 96 04/11/19 20:00 4.0 04/11/19 20:00 80 04/11/19 20:00 Nasal Cannula 4.0 04/11/19 20:00 98.2 95 25 125/80 (95) 96 04/11/19 19:58 78 25 98 Nasal Cannula 2.0 28 04/11/19 19:48 95 Nasal Cannula 2.0 28 04/11/19 19:48 89 22 95 Nasal Cannula 2.0 28 04/11/19 19:00 75 25 106/63 (77) 96 04/11/19 18:00 75 24 145/89 (107) 94 04/11/19 17:20 75 179/129 04/11/19 17:00 75 24 170/103 (125) 96 04/11/19 16:00 97.8 75 24 144/83 (103) 94 04/11/19 16:00 75 04/11/19 16:00 4.0 04/11/19 16:00 Nasal Cannula 4.0 04/11/19 15:00 72 22 145/90 (108) 100 04/11/19 14:52 75 20 99 Nasal Cannula 2.0 28 82 20 98 04/11/19 14:00 76 25 154/97 (116) 95 Intake and Output 04/11/19 04/12/19 19:00 07:00 Intake Total 1032.372 ml 400 ml Output Total 2100 ml 2150 ml Balance -1067.628 ml -1750 ml Intake Oral 660 ml IV Total 372.372 ml Other 400 ml Output Urine Total 2100 ml 2150 ml # Bowel Movements 2 1 Laboratory Tests 04/12/19 04:00: White Blood Count 18.6H, Red Blood Count 5.35, Hemoglobin 13.3L, Hematocrit 42.5 , Mean Corpuscular Volume 79L, Mean Corpuscular Hemoglobin 24.9L, Mean Corpuscular Hemoglobin Concent 31.4L, Red Cell Distribution Width 16.0H, Platelet Count 258, Mean Platelet Volume 9.1, Neutrophils (%) (Auto) , Lymphocytes (%) (Auto) , Monocytes (%) (Auto) , Eosinophils (%) (Auto) , Basophils (%) (Auto) , Differential Total Cells Counted 100, Neutrophils % ( Manual) 82H, Lymphocytes % (Manual) 8L, Monocytes % (Manual) 7, Eosinophils % ( Manual) 0, Basophils % (Manual) 0, Metamyelocytes % 1H, Myelocytes % 2H, Band Neutrophils 0, Platelet Estimate Adequate, Platelet Morphology Normal, Red Blood Cell Morphology , Hypochromasia 2+, Anisocytosis 1+, Microcytosis 2+, Sodium Level 143, Potassium Level 4.0, Chloride Level 104, Carbon Dioxide Level 32, Anion Gap 7, Blood Urea Nitrogen 36H, Creatinine 1.5H, Estimat Glomerular Filtration Rate 49.9, Glucose Level 152H, Calcium Level 8.7, Digoxin Level 0.6 Height (Feet): 5 Height (Inches): 10.00 Weight (Pounds): 411 General Appearance: no apparent distress Cardiovascular: normal rate Respiratory/Chest: decreased breath sounds Abdomen: other - obese Bebeto Yin MD Apr 12, 2019 13:53
--- NOTE | 2019-04-12 17:12 | General Progress Note ---
Assessment/Plan Assessment/Plan: (1) Lumbar DDD (2) Lumbar Spondylosis (3) Morbid obesity Patient to be continued on Percocet and Morphine Parameters will be continued D/w Dr. Stack and he concurred. Subjective Date patient seen: Apr 12, 2019 Time patient seen: 04:30 - pm Allergies: Coded Allergies: RIVAROXABAN (Verified Allergy, Unknown, 04/05/19) Subjective REVIEW OF SYSTEMS: Denies rash, fever, chills at this time, sweating, dizziness, drowsiness, blurred vision, sore throat, change in weight. No nausea, vomiting, diarrhea, or blood in the stool or urine. No dysuria. He is complaining of low back pain. SUBJECTIVE: Patient transferred to [facility] [place] and is doing better. Reports pain has been tolerated on the Morphine and Percocet. no new complaints at this time. Objective Last 24 Hour Vital Signs Date Time Temp Pulse Resp B/P (MAP) Pulse Ox O2 Delivery O2 Flow Rate FiO2 04/12/19 16:00 85 04/12/19 16:00 4.0 04/12/19 15:09 79 22 100 Nasal Cannula 4.0 36 78 22 98 04/12/19 13:20 71 158/98 04/12/19 12:00 4.0 04/12/19 12:00 74 04/12/19 12:00 97.9 71 20 158/98 (118) 94 04/12/19 10:48 72 20 160/99 (119) 04/12/19 10:47 84 22 97 Nasal Cannula 2.0 28 84 21 93 04/12/19 10:07 78 20 167/94 (118) 98 04/12/19 10:04 179/91 (120) 04/12/19 09:00 98.0 75 23 136/73 (94) 96 04/12/19 08:30 75 23 158/86 (110) 100 04/12/19 08:11 73 04/12/19 08:00 77 21 155/80 (105) 99 04/12/19 08:00 74 04/12/19 08:00 Nasal Cannula 3.0 04/12/19 07:22 81 17 98 Nasal Cannula 2.0 28 75 23 96 04/12/19 07:12 96 Nasal Cannula 2.0 28 04/12/19 07:00 64 22 164/98 (120) 95 04/12/19 06:00 69 19 174/95 (121) 94 04/12/19 05:46 2.0 04/12/19 05:45 Nasal Cannula 2.0 04/12/19 05:06 72 160/88 04/12/19 05:00 71 21 166/92 (116) 95 04/12/19 04:00 Bi-pap 04/12/19 04:00 72 04/12/19 04:00 98.6 72 20 160/88 (112) 97 04/12/19 03:29 68 24 97 Nasal Cannula 2.0 28 04/12/19 03:19 66 22 97 Facial 30 04/12/19 03:19 66 22 97 Bi-Pap 30 04/12/19 03:00 30 04/12/19 03:00 81 23 174/92 (119) 94 04/12/19 02:00 71 22 160/110 (127) 95 04/12/19 01:06 2.0 04/12/19 01:00 72 20 165/89 (114) 97 04/12/19 00:00 99.2 66 20 158/79 (105) 96 04/12/19 00:00 66 04/12/19 00:00 Bi-pap 04/12/19 00:00 30 04/11/19 23:40 70 22 97 Facial 30 04/11/19 23:06 71 143/91 04/11/19 23:00 85 19 162/80 (107) 96 04/11/19 22:00 71 21 143/91 (108) 99 04/11/19 21:45 74 20 97 Facial 30 04/11/19 21:30 30 04/11/19 21:00 79 23 90/63 (72) 96 04/11/19 20:00 4.0 04/11/19 20:00 80 04/11/19 20:00 Nasal Cannula 4.0 04/11/19 20:00 98.2 95 25 125/80 (95) 96 04/11/19 19:58 78 25 98 Nasal Cannula 2.0 28 04/11/19 19:48 95 Nasal Cannula 2.0 28 04/11/19 19:48 89 22 95 Nasal Cannula 2.0 28 04/11/19 19:00 75 25 106/63 (77) 96 04/11/19 18:00 75 24 145/89 (107) 94 04/11/19 17:20 75 179/129 Intake and Output 04/11/19 04/12/19 19:00 07:00 Intake Total 1032.372 ml 400 ml Output Total 2100 ml 2150 ml Balance -1067.628 ml -1750 ml Intake Oral 660 ml IV Total 372.372 ml Other 400 ml Output Urine Total 2100 ml 2150 ml # Bowel Movements 2 1 Laboratory Tests 04/12/19 04:00: White Blood Count 18.6H, Red Blood Count 5.35, Hemoglobin 13.3L, Hematocrit 42.5 , Mean Corpuscular Volume 79L, Mean Corpuscular Hemoglobin 24.9L, Mean Corpuscular Hemoglobin Concent 31.4L, Red Cell Distribution Width 16.0H, Platelet Count 258, Mean Platelet Volume 9.1, Neutrophils (%) (Auto) , Lymphocytes (%) (Auto) , Monocytes (%) (Auto) , Eosinophils (%) (Auto) , Basophils (%) (Auto) , Differential Total Cells Counted 100, Neutrophils % ( Manual) 82H, Lymphocytes % (Manual) 8L, Monocytes % (Manual) 7, Eosinophils % ( Manual) 0, Basophils % (Manual) 0, Metamyelocytes % 1H, Myelocytes % 2H, Band Neutrophils 0, Platelet Estimate Adequate, Platelet Morphology Normal, Red Blood Cell Morphology , Hypochromasia 2+, Anisocytosis 1+, Microcytosis 2+, Sodium Level 143, Potassium Level 4.0, Chloride Level 104, Carbon Dioxide Level 32, Anion Gap 7, Blood Urea Nitrogen 36H, Creatinine 1.5H, Estimat Glomerular Filtration Rate 49.9, Glucose Level 152H, Calcium Level 8.7, Digoxin Level 0.6 Height (Feet): 5 Height (Inches): 10.00 Weight (Pounds): 411 Objective GENERAL: Alert, awake, and oriented. LUNGS: Decreased breath sounds bilaterally. HEART: S1 and S2 regular. ABDOMEN: Obese.. EXTREMITIES: No cyanosis. No clubbing. NEURO: No changes. Osito Sultana Apr 12, 2019 17:11
--- NOTE | 2019-04-12 19:12 | NUR ---
HAND-OFF: Report given to KEESHA Navarrete.
--- NOTE | 2019-04-12 19:30 | NUR ---
NURSE NOTES: Received patient from day shift. Patient in bed, on 4L NC, no signs of respiratory distress. Bed in low position, locked, call light within reach.
[2019-04-12] MEDS: Atorvastatin 20mg tab ORAL SCH (20:26)
--- NOTE | 2019-04-12 21:08 | General Progress Note ---
Assessment/Plan Problem List: (1) Hypokalemia ICD Codes: E87.6 - Hypokalemia SNOMED: 40860605 (2) CHF (congestive heart failure) ICD Codes: I50.9 - Heart failure, unspecified SNOMED: 70563351 (3) Lower back pain ICD Codes: M54.5 - Low back pain SNOMED: 427267817 Status: unchanged Assessment/Plan: altered and lethargic at times sleep apnea not improving lyte check obesity edema not much improved chf fluid management Subjective Respiratory: Reports: shortness of breath Allergies: Coded Allergies: RIVAROXABAN (Verified Allergy, Unknown, 04/05/19) Objective Last 24 Hour Vital Signs Date Time Temp Pulse Resp B/P (MAP) Pulse Ox O2 Delivery O2 Flow Rate FiO2 04/12/19 20:21 66 20 99 Nasal Cannula 4.0 36 04/12/19 20:11 98 Nasal Cannula 4.0 36 04/12/19 20:11 65 20 98 Nasal Cannula 4.0 36 04/12/19 17:11 85 158/98 04/12/19 16:00 85 04/12/19 16:00 4.0 04/12/19 15:09 79 22 100 Nasal Cannula 4.0 36 78 22 98 04/12/19 13:20 71 158/98 04/12/19 12:00 4.0 04/12/19 12:00 74 04/12/19 12:00 97.9 71 20 158/98 (118) 94 04/12/19 10:48 72 20 160/99 (119) 04/12/19 10:47 84 22 97 Nasal Cannula 2.0 28 84 21 93 04/12/19 10:07 78 20 167/94 (118) 98 04/12/19 10:04 179/91 (120) 04/12/19 09:00 98.0 75 23 136/73 (94) 96 04/12/19 08:30 75 23 158/86 (110) 100 04/12/19 08:11 73 04/12/19 08:00 77 21 155/80 (105) 99 04/12/19 08:00 74 04/12/19 08:00 Nasal Cannula 3.0 04/12/19 07:22 81 17 98 Nasal Cannula 2.0 28 75 23 96 04/12/19 07:12 96 Nasal Cannula 2.0 28 04/12/19 07:00 64 22 164/98 (120) 95 04/12/19 06:00 69 19 174/95 (121) 94 04/12/19 05:46 2.0 04/12/19 05:45 Nasal Cannula 2.0 04/12/19 05:06 72 160/88 04/12/19 05:00 71 21 166/92 (116) 95 04/12/19 04:00 Bi-pap 04/12/19 04:00 72 04/12/19 04:00 98.6 72 20 160/88 (112) 97 04/12/19 03:29 68 24 97 Nasal Cannula 2.0 28 04/12/19 03:19 66 22 97 Facial 30 04/12/19 03:19 66 22 97 Bi-Pap 30 04/12/19 03:00 30 04/12/19 03:00 81 23 174/92 (119) 94 04/12/19 02:00 71 22 160/110 (127) 95 04/12/19 01:06 2.0 04/12/19 01:00 72 20 165/89 (114) 97 04/12/19 00:00 99.2 66 20 158/79 (105) 96 04/12/19 00:00 66 04/12/19 00:00 Bi-pap 04/12/19 00:00 30 04/11/19 23:40 70 22 97 Facial 30 04/11/19 23:06 71 143/91 04/11/19 23:00 85 19 162/80 (107) 96 04/11/19 22:00 71 21 143/91 (108) 99 04/11/19 21:45 74 20 97 Facial 30 04/11/19 21:30 30 Intake and Output 04/11/19 04/12/19 19:00 07:00 Intake Total 1032.372 ml 400 ml Output Total 2100 ml 2150 ml Balance -1067.628 ml -1750 ml Intake Oral 660 ml IV Total 372.372 ml Other 400 ml Output Urine Total 2100 ml 2150 ml # Bowel Movements 2 1 Laboratory Tests 04/12/19 04:00: White Blood Count 18.6H, Red Blood Count 5.35, Hemoglobin 13.3L, Hematocrit 42.5 , Mean Corpuscular Volume 79L, Mean Corpuscular Hemoglobin 24.9L, Mean Corpuscular Hemoglobin Concent 31.4L, Red Cell Distribution Width 16.0H, Platelet Count 258, Mean Platelet Volume 9.1, Neutrophils (%) (Auto) , Lymphocytes (%) (Auto) , Monocytes (%) (Auto) , Eosinophils (%) (Auto) , Basophils (%) (Auto) , Differential Total Cells Counted 100, Neutrophils % ( Manual) 82H, Lymphocytes % (Manual) 8L, Monocytes % (Manual) 7, Eosinophils % ( Manual) 0, Basophils % (Manual) 0, Metamyelocytes % 1H, Myelocytes % 2H, Band Neutrophils 0, Platelet Estimate Adequate, Platelet Morphology Normal, Red Blood Cell Morphology , Hypochromasia 2+, Anisocytosis 1+, Microcytosis 2+, Sodium Level 143, Potassium Level 4.0, Chloride Level 104, Carbon Dioxide Level 32, Anion Gap 7, Blood Urea Nitrogen 36H, Creatinine 1.5H, Estimat Glomerular Filtration Rate 49.9, Glucose Level 152H, Calcium Level 8.7, Digoxin Level 0.6 Height (Feet): 5 Height (Inches): 10.00 Weight (Pounds): 411 Respiratory/Chest: crackles/rales Abdomen: soft Brodie De Jesus MD Apr 12, 2019 21:08
--- NOTE | 2019-04-12 21:28 | Pulmonology Progress Note ---
Assessment/Plan Assessment/Plan Pulmonary Progress Note HPI The patient is a 48-year-old man with history of obesity and Congestive Heart Failure, admitted with chest pain, shortness of breath, fevera and chills as well as sore throat and ear pain for 3 to 4 days ago. Denies cough or sputum production, vomiting or diarrhea, no Lower extremity swelling. On PO meds for Afib, Less SOB, using BipAP at night Past Medical History: Obesity, Congestive Heart Failure, Chronic Obstructive Pulmonary Disease, Diabetes, Hypertension Allergies: RIVAROXABAN All Other Systems: negative except mentioned in HPI Physical Exam Vital Signs Noted General: Awake and alert, no acute distress HEENT: NC/AT. EOMI. tympanic membranes are erythematous, Pharynx is erythematous , no exudates, moist mm Cardiovascular: RRR. S1 and S2 normal. No murmur appreciated. Mild edema noted Resp: Normal work of breathing. CTAB Abdomen: Abdomen is soft, nondistended. Nontender Skin: Intact. No abrasions, laceration or rash over the exposed skin Extremities: Normal tone and bulk. Moving all extremities. No obvious deformity. Neuro: Awake and alert. Mentating appropriately. 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 No ST segment changes. Normal intervals CXR: no consolidation, other - bilateral pulmonary congestion, questionable effusions. No obvious consolidation Subjective ROS Limited/Unobtainable: No Allergies: Coded Allergies: RIVAROXABAN (Verified Allergy, Unknown, 04/05/19) Objective Last 24 Hour Vital Signs Date Time Temp Pulse Resp B/P (MAP) Pulse Ox O2 Delivery O2 Flow Rate FiO2 04/12/19 20:21 66 20 99 Nasal Cannula 4.0 36 04/12/19 20:11 98 Nasal Cannula 4.0 36 04/12/19 20:11 65 20 98 Nasal Cannula 4.0 36 04/12/19 17:11 85 158/98 04/12/19 16:00 85 04/12/19 16:00 4.0 04/12/19 15:09 79 22 100 Nasal Cannula 4.0 36 78 22 98 12/10/19 13:20 71 158/98 04/12/19 12:00 4.0 04/12/19 12:00 74 04/12/19 12:00 97.9 71 20 158/98 (118) 94 04/12/19 10:48 72 20 160/99 (119) 04/12/19 10:47 84 22 97 Nasal Cannula 2.0 28 84 21 93 04/12/19 10:07 78 20 167/94 (118) 98 04/12/19 10:04 179/91 (120) 04/12/19 09:00 98.0 75 23 136/73 (94) 96 04/12/19 08:30 75 23 158/86 (110) 100 04/12/19 08:11 73 04/12/19 08:00 77 21 155/80 (105) 99 04/12/19 08:00 74 04/12/19 08:00 Nasal Cannula 3.0 04/12/19 07:22 81 17 98 Nasal Cannula 2.0 28 75 23 96 04/12/19 07:12 96 Nasal Cannula 2.0 28 04/12/19 07:00 64 22 164/98 (120) 95 04/12/19 06:00 69 19 174/95 (121) 94 04/12/19 05:46 2.0 04/12/19 05:45 Nasal Cannula 2.0 04/12/19 05:06 72 160/88 04/12/19 05:00 71 21 166/92 (116) 95 04/12/19 04:00 Bi-pap 04/12/19 04:00 72 04/12/19 04:00 98.6 72 20 160/88 (112) 97 04/12/19 03:29 68 24 97 Nasal Cannula 2.0 28 04/12/19 03:19 66 22 97 Facial 30 04/12/19 03:19 66 22 97 Bi-Pap 30 04/12/19 03:00 30 04/12/19 03:00 81 23 174/92 (119) 94 04/12/19 02:00 71 22 160/110 (127) 95 04/12/19 01:06 2.0 04/12/19 01:00 72 20 165/89 (114) 97 04/12/19 00:00 99.2 66 20 158/79 (105) 96 04/12/19 00:00 66 04/12/19 00:00 Bi-pap 04/12/19 00:00 30 04/11/19 23:40 70 22 97 Facial 30 04/11/19 23:06 71 143/91 04/11/19 23:00 85 19 162/80 (107) 96 04/11/19 22:00 71 21 143/91 (108) 99 04/11/19 21:45 74 20 97 Facial 30 04/11/19 21:30 30 Intake and Output 04/11/19 04/12/19 19:00 07:00 Intake Total 1032.372 ml 400 ml Output Total 2100 ml 2150 ml Balance -1067.628 ml -1750 ml Intake Oral 660 ml IV Total 372.372 ml Other 400 ml Output Urine Total 2100 ml 2150 ml # Bowel Movements 2 1 Laboratory Tests 04/12/19 04:00: White Blood Count 18.6H, Red Blood Count 5.35, Hemoglobin 13.3L, Hematocrit 42.5 , Mean Corpuscular Volume 79L, Mean Corpuscular Hemoglobin 24.9L, Mean Corpuscular Hemoglobin Concent 31.4L, Red Cell Distribution Width 16.0H, Platelet Count 258, Mean Platelet Volume 9.1, Neutrophils (%) (Auto) , Lymphocytes (%) (Auto) , Monocytes (%) (Auto) , Eosinophils (%) (Auto) , Basophils (%) (Auto) , Differential Total Cells Counted 100, Neutrophils % ( Manual) 82H, Lymphocytes % (Manual) 8L, Monocytes % (Manual) 7, Eosinophils % ( Manual) 0, Basophils % (Manual) 0, Metamyelocytes % 1H, Myelocytes % 2H, Band Neutrophils 0, Platelet Estimate Adequate, Platelet Morphology Normal, Red Blood Cell Morphology , Hypochromasia 2+, Anisocytosis 1+, Microcytosis 2+, Sodium Level 143, Potassium Level 4.0, Chloride Level 104, Carbon Dioxide Level 32, Anion Gap 7, Blood Urea Nitrogen 36H, Creatinine 1.5H, Estimat Glomerular Filtration Rate 49.9, Glucose Level 152H, Calcium Level 8.7, Digoxin Level 0.6 Current Medications Medications (Trade) Dose Ordered Sig/David Route PRN Reason Start Time Stop Time Status Last Admin Dose Admin Acetaminophen (Tylenol) 650 mg Q6H PRN ORAL Mild Pain/Temp > 100.5 04/12/19 12:30 05/08/19 18:27 Acetazolamide (Diamox) 250 mg DAILY ORAL 04/13/19 09:00 05/10/19 11:59 Albuterol/ Ipratropium (Albuterol/ Ipratropium) 3 ml Q4HRT HHN 04/12/19 15:00 04/16/19 02:59 04/12/19 20:11 Apixaban (Eliquis) 5 mg BID ORAL 04/12/19 18:00 05/11/19 17:59 04/12/19 17:12 Aspirin (ASA) 81 mg DAILY ORAL 04/13/19 09:00 05/06/19 08:59 Atorvastatin Calcium (Lipitor) 40 mg BEDTIME ORAL 04/12/19 21:00 05/06/19 20:59 04/12/19 20:26 Clonidine HCl (Catapres Tab) 0.1 mg Q4H PRN ORAL bp over 165 syst 04/12/19 11:45 05/08/19 11:44 Digoxin (Lanoxin) 0.25 mg DAILY ORAL 04/13/19 09:00 05/11/19 08:59 Diltiazem HCl (Cardizem) 90 mg EVERY 6 HOURS ORAL 04/12/19 12:00 05/09/19 17:59 04/12/19 17:11 Docusate Sodium (Colace) 100 mg THREE TIMES A DAY ORAL 04/12/19 13:00 05/09/19 08:59 04/12/19 17:11 Folic Acid (Folate) 1 mg DAILY ORAL 04/13/19 09:00 05/10/19 10:59 Furosemide (Lasix) 80 mg Q12HR@0600,1800 IV 04/12/19 18:00 05/08/19 17:59 04/12/19 17:11 Gabapentin (Neurontin) 600 mg BID ORAL 04/12/19 18:00 05/06/19 17:59 04/12/19 17:12 Guaifenesin/ Dextromethorphan (Robitussin DM Syrup) 5 ml Q4H PRN ORAL For Cough 04/12/19 11:30 05/10/19 19:29 04/12/19 14:50 Methylprednisolone Sodium Succinate (Solu-MEDROL) 40 mg BID IVP 04/12/19 18:00 05/06/19 05:59 04/12/19 17:11 Morphine Sulfate (Morphine Sulfate) 1 mg Q6H PRN IVP Breakthrough Pain 04/12/19 11:45 04/15/19 11:44 04/12/19 16:44 Ondansetron HCl (Zofran) 4 mg Q6H PRN IVP Nausea & Vomiting 04/12/19 11:45 05/08/19 11:44 Oxycodone/ Acetaminophen (Percocet 5-325) 1 tab Q4H PRN ORAL Severe Pain (Pain Scale 7-10) 04/12/19 11:45 04/15/19 11:44 Pantoprazole (Protonix) 40 mg EVERY 12 HOURS ORAL 04/12/19 21:00 05/09/19 08:59 04/12/19 20:26 Potassium Chloride (K-Dur) 40 meq BID ORAL 04/12/19 18:00 05/06/19 08:59 04/12/19 17:12 Mahesh Wise MD Apr 12, 2019 21:28
[2019-04-13] VITALS (7 sets, daily range): BP systolic 102–177; BP diastolic 59–106
[2019-04-13] MEDS: Albuterol/Ipratropium 3ml neb HHN SCH ×8 (00:39→23:46)
[2019-04-13] MEDS: Guaifenesin/DM 10ml syrup ORAL PRN ×2 (03:40→20:31)
[2019-04-13] MEDS: Morphine Sulfate 2mg/ml Inj(IV/IM USE ONLY) IVP PRN ×3 (05:15→20:01)
[2019-04-13] MEDS: dilTIAZem HCl 90mg tab ORAL SCH ×2 (05:15→12:33)
--- NOTE | 2019-04-13 07:10 | NUR ---
NURSE NOTES: Received patient from KEESHA Navarrete sitting at the edg of the bed, denies any pain at this time, No s/s of respiratory distress and no shortness of breath noted. Bed is in lowest level, bedside rails up x2. IV is intact and patent, SL. Will continue with the plan of care.
--- NOTE | 2019-04-13 07:30 | NUR ---
HAND-OFF: Report given to Denisa THAO. Plan of care endorsed. Endorsed to day shift that patient has been non compliant with fluid restriction. Patient ordered dominoes last night and had a bottle of vitamin water. Explained to patient that he is on a cardiac diet with fluid restrictions. Patient acknowledged understanding but kept being non compliant.
[2019-04-13] MEDS: Docusate 100mg cap ORAL SCH ×3 (08:12→17:31)
[2019-04-13] MEDS: Eliquis 5mg tablet ORAL SCH ×2 (08:13→17:31)
[2019-04-13] MEDS: Solu-MEDROL 40mg Inj IVP SCH ×2 (08:14→17:30)
[2019-04-13] MEDS: Aspirin Baby 81mg ORAL SCH (08:18)
--- NOTE | 2019-04-13 08:54 | General Progress Note ---
Assessment/Plan Assessment/Plan: (1) Lumbar DDD (2) Lumbar Spondylosis (3) Morbid obesity Patient to be continued on Percocet and Morphine Parameters will be continued D/w Dr. Stack and he concurred. Subjective Date patient seen: Apr 13, 2019 Time patient seen: 08:00 - am Allergies: Coded Allergies: RIVAROXABAN (Verified Allergy, Unknown, 04/05/19) Subjective REVIEW OF SYSTEMS: Denies rash, fever, chills at this time, sweating, dizziness, drowsiness, blurred vision, sore throat, change in weight. No nausea, vomiting, diarrhea, or blood in the stool or urine. No dysuria. He is complaining of low back pain. SUBJECTIVE: Patient is doing well and pain has been tolerated on the Morphine and Percocet. Has no new complaints at this time. Objective Last 24 Hour Vital Signs Date Time Temp Pulse Resp B/P (MAP) Pulse Ox O2 Delivery O2 Flow Rate FiO2 04/13/19 08:19 105 04/13/19 06:22 75 151/90 (110) 04/13/19 06:00 75 04/13/19 05:15 72 177/106 04/13/19 04:00 71 20 98 Nasal Cannula 4.0 36 04/13/19 04:00 98.1 72 22 177/106 (129) 97 04/13/19 04:00 4.0 04/13/19 03:50 72 20 95 Nasal Cannula 4.0 36 04/13/19 00:49 69 23 99 Bi-Pap 30 04/13/19 00:39 70 25 97 Bi-Pap 30 04/13/19 00:39 70 25 97 Facial 30 04/13/19 00:30 97.9 72 19 146/89 (108) 96 04/13/19 00:00 74 04/12/19 23:38 78 164/118 04/12/19 23:37 78 164/118 (133) 04/12/19 21:00 Nasal Cannula 4.0 04/12/19 20:21 66 20 99 Nasal Cannula 4.0 36 04/12/19 20:11 98 Nasal Cannula 4.0 36 04/12/19 20:11 65 20 98 Nasal Cannula 4.0 36 04/12/19 20:00 97.7 71 19 143/87 (105) 95 04/12/19 20:00 4.0 04/12/19 20:00 70 04/12/19 17:11 85 158/98 04/12/19 16:00 85 04/12/19 16:00 4.0 04/12/19 15:09 79 22 100 Nasal Cannula 4.0 36 78 22 98 04/12/19 13:20 71 158/98 04/12/19 12:00 4.0 04/12/19 12:00 74 04/12/19 12:00 97.9 71 20 158/98 (118) 94 04/12/19 10:48 72 20 160/99 (119) 04/12/19 10:47 84 22 97 Nasal Cannula 2.0 28 84 21 93 04/12/19 10:07 78 20 167/94 (118) 98 04/12/19 10:04 179/91 (120) 04/12/19 09:00 98.0 75 23 136/73 (94) 96 Intake and Output 04/12/19 04/13/19 18:59 06:59 Intake Total 750 ml Output Total 1820 ml 1450 ml Balance -1070 ml -1450 ml Intake Oral 750 ml Output Urine Total 1820 ml 1450 ml # Voids 1 # Bowel Movements 2 Height (Feet): 5 Height (Inches): 10.00 Weight (Pounds): 402 Objective GENERAL: Alert, awake, and oriented. LUNGS: Decreased breath sounds bilaterally. HEART: S1 and S2 regular. ABDOMEN: Obese.. EXTREMITIES: No cyanosis. No clubbing. NEURO: No changes. Osito Sultana Apr 13, 2019 08:54
--- NOTE | 2019-04-13 10:04 | NUR ---
CASE MANAGEMENT:REVIEW 04/13/19 SI: CHF. COPD 97.0 115 20 149/81 95% ON 4L/NC NO LABS TODAY IS: IV SOLUMEDROL BID ASA PO QD DIGOXIN PO QD DIAMOX PO QD PROTONIX PO Q12 ELIQUIS PO BID IV LASIX Q12 DUONEB HHN Q4HRS RTC CARDIZEM PO Q6HRS : TELEMETRY STATUS DCP: FROM HOME
--- NOTE | 2019-04-13 12:37 | Nephrology Progress Note ---
Assessment/Plan Problem List: (1) Hypokalemia (2) CHF (congestive heart failure) (3) Renal failure (4) Obesity, morbid, BMI 50 or higher (5) CO2 retention (6) COPD (chronic obstructive pulmonary disease) Assessment elevated Cr likely due to diuresis Obesity , NATASHA AT fib with FVR HTN Congestive heart failure, likely diastolic dysfunction. EF 60% Recurrent NSVT. No syncope. Hypertension. Morbid obesity. COPD. Lipidemia. Plan no labs today Keep BP in check Monitor lytes B12 and Folic acid Diamox PO per orders per cardio and pulmonary taper steroids as possible Subjective ROS Limited/Unobtainable: No Interval Events/Complaints uncooporative Constitutional: Reports: malaise Objective Objective Last 24 Hour Vital Signs Date Time Temp Pulse Resp B/P (MAP) Pulse Ox O2 Delivery O2 Flow Rate FiO2 04/13/19 12:33 92 126/89 04/13/19 10:05 66 21 94 Facial 30 04/13/19 09:00 Nasal Cannula 4.0 04/13/19 08:19 105 04/13/19 08:00 115 04/13/19 08:00 97.0 115 20 149/81 (103) 95 04/13/19 08:00 4.0 04/13/19 07:30 95 Nasal Cannula 4.0 36 04/13/19 06:22 75 151/90 (110) 04/13/19 06:00 75 04/13/19 05:15 72 177/106 04/13/19 04:00 71 20 98 Nasal Cannula 4.0 36 04/13/19 04:00 98.1 72 22 177/106 (129) 97 04/13/19 04:00 4.0 04/13/19 03:50 72 20 95 Nasal Cannula 4.0 36 04/13/19 00:49 69 23 99 Bi-Pap 30 04/13/19 00:39 70 25 97 Bi-Pap 30 04/13/19 00:39 70 25 97 Facial 30 04/13/19 00:30 97.9 72 19 146/89 (108) 96 04/13/19 00:00 74 04/12/19 23:38 78 164/118 04/12/19 23:37 78 164/118 (133) 04/12/19 21:00 Nasal Cannula 4.0 04/12/19 20:21 66 20 99 Nasal Cannula 4.0 36 04/12/19 20:11 98 Nasal Cannula 4.0 36 04/12/19 20:11 65 20 98 Nasal Cannula 4.0 36 04/12/19 20:00 97.7 71 19 143/87 (105) 95 04/12/19 20:00 4.0 04/12/19 20:00 70 04/12/19 17:11 85 158/98 04/12/19 16:00 85 04/12/19 16:00 4.0 04/12/19 15:09 79 22 100 Nasal Cannula 4.0 36 78 22 98 04/12/19 13:20 71 158/98 Intake and Output 04/12/19 04/13/19 18:59 06:59 Intake Total 750 ml Output Total 1820 ml 1450 ml Balance -1070 ml -1450 ml Intake Oral 750 ml Output Urine Total 1820 ml 1450 ml # Voids 1 # Bowel Movements 2 Height (Feet): 5 Height (Inches): 10.00 Weight (Pounds): 402 General Appearance: other Cardiovascular: tachycardia Respiratory/Chest: decreased breath sounds Abdomen: distended Bebeto Yin MD Apr 13, 2019 12:37
--- NOTE | 2019-04-13 12:56 | Hematology/Onc Progress Note ---
Assessment/Plan Assessment/Plan Assessment and Recs: # Secondary hypercoagulable disorder, has afib with rvr, w/u as per cards --> initially on heparin gtt --> NOW OFF --> cardizem po started for rhythm control --> per cards agree with apixaban # Leukocytosis is likely due to steroid use --> wbc trend 15-->20k-->18-->19 --> steroid taper --> abx as per id # Hypokalemia --> per renal, replete k --> diuresis # CHF (congestive heart failure) --> on lasix bid dosing, per cards # Obesity --> weight loss recommended --> lifestyle modification # Afib with rvr per cards --> on apixban # Dvt ppx apix DW Rn and appreciate consultation. Subjective Allergies: Coded Allergies: RIVAROXABAN (Verified Allergy, Unknown, 04/05/19) Subjective 04/11: remains on diltz and heparin gtt, oon bipap o/n 04/12: bipap overnight and 2lnc, as per cards on apixaban, still bp high 04/13: transferred to tele, awake and alert, no acute events, cbc ordered Objective Objective Current Medications Medications (Trade) Dose Ordered Sig/David Route PRN Reason Start Time Stop Time Status Last Admin Dose Admin Acetaminophen (Tylenol) 650 mg Q6H PRN ORAL Mild Pain/Temp > 100.5 04/12/19 12:30 05/08/19 18:27 Acetazolamide (Diamox) 250 mg DAILY ORAL 04/13/19 09:00 05/10/19 11:59 04/13/19 08:18 Albuterol/ Ipratropium (Albuterol/ Ipratropium) 3 ml Q4HRT HHN 04/12/19 15:00 04/16/19 02:59 04/13/19 03:50 Apixaban (Eliquis) 5 mg BID ORAL 04/12/19 18:00 05/11/19 17:59 04/13/19 08:13 Aspirin (ASA) 81 mg DAILY ORAL 04/13/19 09:00 05/06/19 08:59 04/13/19 08:18 Atorvastatin Calcium (Lipitor) 40 mg BEDTIME ORAL 04/12/19 21:00 05/06/19 20:59 04/12/19 20:26 Clonidine HCl (Catapres Tab) 0.1 mg Q4H PRN ORAL bp over 165 syst 04/12/19 11:45 05/08/19 11:44 Digoxin (Lanoxin) 0.25 mg DAILY ORAL 04/13/19 09:00 05/11/19 08:59 04/13/19 08:19 Diltiazem HCl (Cardizem) 90 mg EVERY 6 HOURS ORAL 04/12/19 12:00 05/09/19 17:59 04/13/19 12:33 Docusate Sodium (Colace) 100 mg THREE TIMES A DAY ORAL 04/12/19 13:00 05/09/19 08:59 04/13/19 12:34 Folic Acid (Folate) 1 mg DAILY ORAL 04/13/19 09:00 05/10/19 10:59 04/13/19 08:18 Furosemide (Lasix) 80 mg Q12HR@0600,1800 IV 04/12/19 18:00 05/08/19 17:59 04/13/19 05:16 Gabapentin (Neurontin) 600 mg BID ORAL 04/12/19 18:00 05/06/19 17:59 04/13/19 08:14 Guaifenesin/ Dextromethorphan (Robitussin DM Syrup) 5 ml Q4H PRN ORAL For Cough 04/12/19 11:30 05/10/19 19:29 04/13/19 03:40 Methylprednisolone Sodium Succinate (Solu-MEDROL) 40 mg BID IVP 04/12/19 18:00 05/06/19 05:59 04/13/19 08:14 Morphine Sulfate (Morphine Sulfate) 1 mg Q6H PRN IVP Breakthrough Pain 04/12/19 11:45 04/15/19 11:44 04/13/19 12:34 Ondansetron HCl (Zofran) 4 mg Q6H PRN IVP Nausea & Vomiting 04/12/19 11:45 05/08/19 11:44 Oxycodone/ Acetaminophen (Percocet 5-325) 1 tab Q4H PRN ORAL Severe Pain (Pain Scale 7-10) 04/12/19 11:45 04/15/19 11:44 04/13/19 03:40 Pantoprazole (Protonix) 40 mg EVERY 12 HOURS ORAL 04/12/19 21:00 05/09/19 08:59 04/13/19 08:13 Potassium Chloride (K-Dur) 40 meq BID ORAL 04/12/19 18:00 05/06/19 08:59 04/13/19 08:13 Last 24 Hour Vital Signs Date Time Temp Pulse Resp B/P (MAP) Pulse Ox O2 Delivery O2 Flow Rate FiO2 04/13/19 12:33 92 126/89 04/13/19 11:00 69 21 96 Facial 30 04/13/19 10:05 66 21 94 Facial 30 04/13/19 09:00 Nasal Cannula 4.0 04/13/19 08:19 105 04/13/19 08:00 115 04/13/19 08:00 97.0 115 20 149/81 (103) 95 04/13/19 08:00 4.0 04/13/19 07:30 95 Nasal Cannula 4.0 36 04/13/19 06:22 75 151/90 (110) 04/13/19 06:00 75 04/13/19 05:15 72 177/106 04/13/19 04:00 71 20 98 Nasal Cannula 4.0 36 04/13/19 04:00 98.1 72 22 177/106 (129) 97 04/13/19 04:00 4.0 04/13/19 03:50 72 20 95 Nasal Cannula 4.0 36 04/13/19 00:49 69 23 99 Bi-Pap 30 04/13/19 00:39 70 25 97 Bi-Pap 30 04/13/19 00:39 70 25 97 Facial 30 04/13/19 00:30 97.9 72 19 146/89 (108) 96 04/13/19 00:00 74 04/12/19 23:38 78 164/118 04/12/19 23:37 78 164/118 (133) 04/12/19 21:00 Nasal Cannula 4.0 04/12/19 20:21 66 20 99 Nasal Cannula 4.0 36 04/12/19 20:11 98 Nasal Cannula 4.0 36 04/12/19 20:11 65 20 98 Nasal Cannula 4.0 36 04/12/19 20:00 97.7 71 19 143/87 (105) 95 04/12/19 20:00 4.0 04/12/19 20:00 70 04/12/19 17:11 85 158/98 04/12/19 16:00 85 04/12/19 16:00 4.0 04/12/19 15:09 79 22 100 Nasal Cannula 4.0 36 78 22 98 04/12/19 13:20 71 158/98 04/12/19 12:00 4.0 04/12/19 12:00 74 04/12/19 12:00 97.9 71 20 158/98 (118) 94 04/12/19 10:48 72 20 160/99 (119) 04/12/19 10:47 84 22 97 Nasal Cannula 2.0 28 84 21 93 04/12/19 10:07 78 20 167/94 (118) 98 04/12/19 10:04 179/91 (120) 04/12/19 09:00 98.0 75 23 136/73 (94) 96 04/12/19 08:30 75 23 158/86 (110) 100 04/12/19 08:11 73 04/12/19 08:00 77 21 155/80 (105) 99 04/12/19 08:00 74 04/12/19 08:00 Nasal Cannula 3.0 04/12/19 07:22 81 17 98 Nasal Cannula 2.0 28 75 23 96 04/12/19 07:12 96 Nasal Cannula 2.0 28 04/12/19 07:00 64 22 164/98 (120) 95 04/12/19 06:00 69 19 174/95 (121) 94 04/12/19 05:46 2.0 04/12/19 05:45 Nasal Cannula 2.0 04/12/19 05:06 72 160/88 04/12/19 05:00 71 21 166/92 (116) 95 04/12/19 04:00 Bi-pap 04/12/19 04:00 72 04/12/19 04:00 98.6 72 20 160/88 (112) 97 04/12/19 03:29 68 24 97 Nasal Cannula 2.0 28 04/12/19 03:19 66 22 97 Facial 30 04/12/19 03:19 66 22 97 Bi-Pap 30 04/12/19 03:00 30 04/12/19 03:00 81 23 174/92 (119) 94 04/12/19 02:00 71 22 160/110 (127) 95 04/12/19 01:06 2.0 04/12/19 01:00 72 20 165/89 (114) 97 04/12/19 00:00 99.2 66 20 158/79 (105) 96 04/12/19 00:00 66 04/12/19 00:00 Bi-pap 04/12/19 00:00 30 04/11/19 23:40 70 22 97 Facial 30 04/11/19 23:06 71 143/91 04/11/19 23:00 85 19 162/80 (107) 96 04/11/19 22:00 71 21 143/91 (108) 99 04/11/19 21:45 74 20 97 Facial 30 04/11/19 21:30 30 04/11/19 21:00 79 23 90/63 (72) 96 04/11/19 20:00 4.0 04/11/19 20:00 80 04/11/19 20:00 Nasal Cannula 4.0 04/11/19 20:00 98.2 95 25 125/80 (95) 96 04/11/19 19:58 78 25 98 Nasal Cannula 2.0 28 04/11/19 19:48 95 Nasal Cannula 2.0 28 04/11/19 19:48 89 22 95 Nasal Cannula 2.0 28 04/11/19 19:00 75 25 106/63 (77) 96 04/11/19 18:00 75 24 145/89 (107) 94 04/11/19 17:20 75 179/129 04/11/19 17:00 75 24 170/103 (125) 96 04/11/19 16:00 97.8 75 24 144/83 (103) 94 04/11/19 16:00 75 04/11/19 16:00 4.0 04/11/19 16:00 Nasal Cannula 4.0 04/11/19 15:00 72 22 145/90 (108) 100 04/11/19 14:52 75 20 99 Nasal Cannula 2.0 28 82 20 98 04/11/19 14:00 76 25 154/97 (116) 95 04/11/19 13:30 78 23 122/104 (110) 95 04/11/19 13:00 84 22 108/88 (95) 98 Intake and Output 04/12/19 04/13/19 18:59 06:59 Intake Total 750 ml Output Total 1820 ml 1450 ml Balance -1070 ml -1450 ml Intake Oral 750 ml Output Urine Total 1820 ml 1450 ml # Voids 1 # Bowel Movements 2 Labs Test 04/10/19 19:35 04/11/19 03:00 04/11/19 11:15 04/12/19 04:00 Activated Partial Thromboplast Time 62 SEC (23-33) 128 SEC (23-33) 60 SEC (23-33) White Blood Count 18.4 K/UL (4.8-10.8) 18.6 K/UL (4.8-10.8) Red Blood Count 5.71 M/UL (4.70-6.10) 5.35 M/UL (4.70-6.10) Hemoglobin 14.2 G/DL (14.2-18.0) 13.3 G/DL (14.2-18.0) Hematocrit 45.1 % (42.0-52.0) 42.5 % (42.0-52.0) Mean Corpuscular Volume 79 FL (80-99) 79 FL (80-99) Mean Corpuscular Hemoglobin 24.8 PG (27.0-31.0) 24.9 PG (27.0-31.0) Mean Corpuscular Hemoglobin Concent 31.5 G/DL (32.0-36.0) 31.4 G/DL (32.0-36.0) Red Cell Distribution Width 15.6 % (11.6-14.8) 16.0 % (11.6-14.8) Platelet Count 275 K/UL (150-450) 258 K/UL (150-450) Mean Platelet Volume 9.1 FL (6.5-10.1) 9.1 FL (6.5-10.1) Neutrophils (%) (Auto) % (45.0-75.0) % (45.0-75.0) Lymphocytes (%) (Auto) % (20.0-45.0) % (20.0-45.0) Monocytes (%) (Auto) % (1.0-10.0) % (1.0-10.0) Eosinophils (%) (Auto) % (0.0-3.0) % (0.0-3.0) Basophils (%) (Auto) % (0.0-2.0) % (0.0-2.0) Differential Total Cells Counted 100 100 Neutrophils % (Manual) 84 % (45-75) 82 % (45-75) Lymphocytes % (Manual) 10 % (20-45) 8 % (20-45) Monocytes % (Manual) 6 % (1-10) 7 % (1-10) Eosinophils % (Manual) 0 % (0-3) 0 % (0-3) Basophils % (Manual) 0 % (0-2) 0 % (0-2) Band Neutrophils 0 % (0-8) 0 % (0-8) Platelet Estimate Adequate Adequate Platelet Morphology Normal Normal Sodium Level 144 MMOL/L (136-145) 143 MMOL/L (136-145) Potassium Level 4.0 MMOL/L (3.5-5.1) 4.0 MMOL/L (3.5-5.1) Chloride Level 104 MMOL/L (98-107) 104 MMOL/L (98-107) Carbon Dioxide Level 38 MMOL/L (21-32) 32 MMOL/L (21-32) Anion Gap 2 mmol/L (5-15) 7 mmol/L (5-15) Blood Urea Nitrogen 30 mg/dL (7-18) 36 mg/dL (7-18) Creatinine 1.5 MG/DL (0.55-1.30) 1.5 MG/DL (0.55-1.30) Estimat Glomerular Filtration Rate 49.9 mL/min (>60) 49.9 mL/min (>60) Glucose Level 204 MG/DL (74-106) 152 MG/DL (74-106) Uric Acid 6.5 MG/DL (2.6-7.2) Calcium Level 8.8 MG/DL (8.5-10.1) 8.7 MG/DL (8.5-10.1) Phosphorus Level 4.0 MG/DL (2.5-4.9) Magnesium Level 2.2 MG/DL (1.8-2.4) Total Bilirubin 0.4 MG/DL (0.2-1.0) Aspartate Amino Transf (AST/SGOT) 10 U/L (15-37) Alanine Aminotransferase (ALT/SGPT) 34 U/L (12-78) Alkaline Phosphatase 62 U/L (46-116) C-Reactive Protein, Quantitative < 0.4 mg/dL (0.00-0.90) Pro-B-Type Natriuretic Peptide 494 pg/mL (0-125) Total Protein 6.8 G/DL (6.4-8.2) Albumin 3.5 G/DL (3.4-5.0) Globulin 3.3 g/dL Albumin/Globulin Ratio 1.1 (1.0-2.7) Digoxin Level 0.5 NG/ML (0.5-2.0) 0.6 NG/ML (0.5-2.0) Metamyelocytes % 1 % (0-0) Myelocytes % 2 % (0-0) Red Blood Cell Morphology Hypochromasia 2+ Anisocytosis 1+ Microcytosis 2+ Height (Feet): 5 Height (Inches): 10.00 Weight (Pounds): 402 Objective Physical Exam General: Awake and alert, nad HEENT: NC/AT. EOMI. tympanic membranes are deeply erythematous though nonbulging , no effusion Cardiovascular: RRR. S1 and S2 normal. No murmur appreciated Resp: Normal work of breathing. No cough, wheezing or crackles appreciated Abdomen: Abdomen is soft, nondistended. Nontender Skin: Intact. No abrasions, laceration or rash over the exposed skin MSK: Normal tone and bulk. Moving all extremities. No obvious deformity. Ext: 1+ edema Harsh Lehman MD Apr 13, 2019 12:56
--- NOTE | 2019-04-13 14:43 | Cardiac Electrophysiology PN ---
Assessment/Plan Assessment/Plan 1. Congestive heart failure due to diastolic dysfunction. On Lasix 80 mg IV b.i.d. EF 60% 2. Recurrent NSVT. No syncope. Nl EF. Stress test as out patient as couldn't fit in camera. No CP 3. Hypertension. Continue Lasix and Cardizem 4. Atrial fib with RVR. On Cardizem 90 mg po q 6 hrs and Digoxin 0.25 po daily Change Cardizem to Cardizem CD 360 daily 5. Morbid obesity. 6. COPD. On Solu-Medrol and CPAP 7. Lipidemia. On Lipitor. KIAN RN Subjective Subjective Transferred to tele. In atrial fib but heart rate better on Po Dig and Cardizem.No more VT Objective Last 24 Hour Vital Signs Date Time Temp Pulse Resp B/P (MAP) Pulse Ox O2 Delivery O2 Flow Rate FiO2 04/13/19 12:33 92 126/89 04/13/19 11:00 69 21 96 Facial 30 04/13/19 10:05 66 21 94 Facial 30 04/13/19 09:00 Nasal Cannula 4.0 04/13/19 08:19 105 04/13/19 08:00 115 04/13/19 08:00 97.0 115 20 149/81 (103) 95 04/13/19 08:00 4.0 04/13/19 07:30 95 Nasal Cannula 4.0 36 04/13/19 06:22 75 151/90 (110) 04/13/19 06:00 75 04/13/19 05:15 72 177/106 04/13/19 04:00 71 20 98 Nasal Cannula 4.0 36 04/13/19 04:00 98.1 72 22 177/106 (129) 97 04/13/19 04:00 4.0 04/13/19 03:50 72 20 95 Nasal Cannula 4.0 36 04/13/19 00:49 69 23 99 Bi-Pap 30 04/13/19 00:39 70 25 97 Bi-Pap 30 04/13/19 00:39 70 25 97 Facial 30 04/13/19 00:30 97.9 72 19 146/89 (108) 96 04/13/19 00:00 74 04/12/19 23:38 78 164/118 04/12/19 23:37 78 164/118 (133) 04/12/19 21:00 Nasal Cannula 4.0 04/12/19 20:21 66 20 99 Nasal Cannula 4.0 36 04/12/19 20:11 98 Nasal Cannula 4.0 36 04/12/19 20:11 65 20 98 Nasal Cannula 4.0 36 04/12/19 20:00 97.7 71 19 143/87 (105) 95 04/12/19 20:00 4.0 04/12/19 20:00 70 04/12/19 17:11 85 158/98 04/12/19 16:00 85 04/12/19 16:00 4.0 04/12/19 15:09 79 22 100 Nasal Cannula 4.0 36 78 22 98 Intake and Output 04/12/19 04/13/19 19:00 07:00 Intake Total 750 ml Output Total 1020 ml 1450 ml Balance -270 ml -1450 ml Intake Oral 750 ml Output Urine Total 1020 ml 1450 ml # Voids 1 # Bowel Movements 2 Objective HEENT: No JVD. LUNGS: Coarse rhonchi. CARDIOVASCULAR: Regular S1 and S2 with no gallop or murmur. ABDOMEN: Soft. EXTREMITIES: 3+ pitting edema. Sandor Doll MD Apr 13, 2019 14:43
--- NOTE | 2019-04-13 18:09 | Pulmonology Progress Note ---
Assessment/Plan Assessment/Plan Pulmonary Progress Note HPI The patient is a 48-year-old man with history of obesity and Congestive Heart Failure, admitted with chest pain, shortness of breath, fevera and chills as well as sore throat and ear pain for 3 to 4 days ago. Denies cough or sputum production, vomiting or diarrhea, no Lower extremity swelling. On PO meds for Afib, Less SOB, using BipAP at night Past Medical History: Obesity, Congestive Heart Failure, Chronic Obstructive Pulmonary Disease, Diabetes, Hypertension Allergies: RIVAROXABAN All Other Systems: negative except mentioned in HPI Physical Exam Vital Signs Noted General: Awake and alert, no acute distress HEENT: NC/AT. EOMI. tympanic membranes are erythematous, Pharynx is erythematous , no exudates, moist mm Cardiovascular: RRR. S1 and S2 normal. No murmur appreciated. Mild edema noted Resp: Normal work of breathing. CTAB Abdomen: Abdomen is soft, nondistended. Nontender Skin: Intact. No abrasions, laceration or rash over the exposed skin Extremities: Normal tone and bulk. Moving all extremities. No obvious deformity. Neuro: Awake and alert. Mentating appropriately. 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 No ST segment changes. Normal intervals CXR: no consolidation, other - bilateral pulmonary congestion, questionable effusions. No obvious consolidation Subjective ROS Limited/Unobtainable: No Allergies: Coded Allergies: RIVAROXABAN (Verified Allergy, Unknown, 04/05/19) Objective Last 24 Hour Vital Signs Date Time Temp Pulse Resp B/P (MAP) Pulse Ox O2 Delivery O2 Flow Rate FiO2 04/13/19 16:00 74 04/13/19 16:00 98.1 72 20 138/81 (100) 95 04/13/19 16:00 4.0 04/13/19 15:28 73 20 99 Nasal Cannula 4.0 36 75 20 97 04/13/19 12:33 92 126/89 04/13/19 12:00 81 04/13/19 12:00 97.2 81 18 102/59 (73) 95 12/11/19 12:00 4.0 04/13/19 11:00 69 21 96 Facial 30 04/13/19 10:05 66 21 94 Facial 30 04/13/19 09:00 Nasal Cannula 4.0 04/13/19 08:19 105 04/13/19 08:00 115 04/13/19 08:00 97.0 115 20 149/81 (103) 95 04/13/19 08:00 4.0 04/13/19 07:30 95 Nasal Cannula 4.0 36 04/13/19 06:22 75 151/90 (110) 04/13/19 06:00 75 04/13/19 05:15 72 177/106 04/13/19 04:00 71 20 98 Nasal Cannula 4.0 36 04/13/19 04:00 98.1 72 22 177/106 (129) 97 04/13/19 04:00 4.0 04/13/19 03:50 72 20 95 Nasal Cannula 4.0 36 04/13/19 00:49 69 23 99 Bi-Pap 30 04/13/19 00:39 70 25 97 Bi-Pap 30 04/13/19 00:39 70 25 97 Facial 30 04/13/19 00:30 97.9 72 19 146/89 (108) 96 04/13/19 00:00 74 04/12/19 23:38 78 164/118 04/12/19 23:37 78 164/118 (133) 04/12/19 21:00 Nasal Cannula 4.0 04/12/19 20:21 66 20 99 Nasal Cannula 4.0 36 04/12/19 20:11 98 Nasal Cannula 4.0 36 04/12/19 20:11 65 20 98 Nasal Cannula 4.0 36 04/12/19 20:00 97.7 71 19 143/87 (105) 95 04/12/19 20:00 4.0 04/12/19 20:00 70 Intake and Output 04/12/19 04/13/19 19:00 07:00 Intake Total 750 ml Output Total 1020 ml 1450 ml Balance -270 ml -1450 ml Intake Oral 750 ml Output Urine Total 1020 ml 1450 ml # Voids 1 # Bowel Movements 2 Current Medications Medications (Trade) Dose Ordered Sig/David Route PRN Reason Start Time Stop Time Status Last Admin Dose Admin Acetaminophen (Tylenol) 650 mg Q6H PRN ORAL Mild Pain/Temp > 100.5 04/12/19 12:30 05/08/19 18:27 Acetazolamide (Diamox) 250 mg DAILY ORAL 04/13/19 09:00 05/10/19 11:59 04/13/19 08:18 Albuterol/ Ipratropium (Albuterol/ Ipratropium) 3 ml Q4HRT HHN 04/12/19 15:00 04/16/19 02:59 04/13/19 15:28 Apixaban (Eliquis) 5 mg BID ORAL 04/12/19 18:00 05/11/19 17:59 04/13/19 17:31 Aspirin (ASA) 81 mg DAILY ORAL 04/13/19 09:00 05/06/19 08:59 04/13/19 08:18 Atorvastatin Calcium (Lipitor) 40 mg BEDTIME ORAL 04/12/19 21:00 05/06/19 20:59 04/12/19 20:26 Clonidine HCl (Catapres Tab) 0.1 mg Q4H PRN ORAL bp over 165 syst 04/12/19 11:45 05/08/19 11:44 Digoxin (Lanoxin) 0.25 mg DAILY ORAL 04/13/19 09:00 05/11/19 08:59 04/13/19 08:19 Diltiazem HCl (Cardizem CD) 360 mg DAILY ORAL 04/14/19 09:00 05/14/19 08:59 Docusate Sodium (Colace) 100 mg THREE TIMES A DAY ORAL 04/12/19 13:00 05/09/19 08:59 04/13/19 17:31 Folic Acid (Folate) 1 mg DAILY ORAL 04/13/19 09:00 05/10/19 10:59 04/13/19 08:18 Furosemide (Lasix) 80 mg Q12HR@0600,1800 IV 04/12/19 18:00 05/08/19 17:59 04/13/19 17:31 Gabapentin (Neurontin) 600 mg BID ORAL 04/12/19 18:00 05/06/19 17:59 04/13/19 17:32 Guaifenesin/ Dextromethorphan (Robitussin DM Syrup) 5 ml Q4H PRN ORAL For Cough 04/12/19 11:30 05/10/19 19:29 04/13/19 03:40 Methylprednisolone Sodium Succinate (Solu-MEDROL) 40 mg BID IVP 04/12/19 18:00 05/06/19 05:59 04/13/19 17:30 Morphine Sulfate (Morphine Sulfate) 1 mg Q6H PRN IVP Breakthrough Pain 04/12/19 11:45 04/15/19 11:44 04/13/19 12:34 Ondansetron HCl (Zofran) 4 mg Q6H PRN IVP Nausea & Vomiting 04/12/19 11:45 05/08/19 11:44 Oxycodone/ Acetaminophen (Percocet 5-325) 1 tab Q4H PRN ORAL Severe Pain (Pain Scale 7-10) 04/12/19 11:45 04/15/19 11:44 04/13/19 03:40 Pantoprazole (Protonix) 40 mg EVERY 12 HOURS ORAL 04/12/19 21:00 05/09/19 08:59 04/13/19 08:13 Potassium Chloride (K-Dur) 40 meq BID ORAL 04/12/19 18:00 05/06/19 08:59 04/13/19 17:32 Mahesh Wise MD Apr 13, 2019 18:09
--- NOTE | 2019-04-13 19:02 | NUR ---
HAND-OFF: Report given to KEESHA Navarrete.Endorsed the plan of care.
--- NOTE | 2019-04-13 19:37 | NUR ---
NURSE NOTES: Received patient from Denisa THAO. Patient sitting at bedside, on 4L NC, no signs of respiratory distress. Bed in low position, locked, call light within reach.
[2019-04-13] MEDS: Atorvastatin 20mg tab ORAL SCH (20:00)
--- NOTE | 2019-04-13 20:39 | General Progress Note ---
Assessment/Plan Problem List: (1) Hypokalemia ICD Codes: E87.6 - Hypokalemia SNOMED: 28803919 (2) CHF (congestive heart failure) ICD Codes: I50.9 - Heart failure, unspecified SNOMED: 95253578 (3) Lower back pain ICD Codes: M54.5 - Low back pain SNOMED: 699546622 Status: progressing Assessment/Plan: resp insuff sleep apnea not improving obesity chf check lytes no wheezing Subjective Respiratory: Reports: shortness of breath, SOB with excertion Allergies: Coded Allergies: RIVAROXABAN (Verified Allergy, Unknown, 04/05/19) Objective Last 24 Hour Vital Signs Date Time Temp Pulse Resp B/P (MAP) Pulse Ox O2 Delivery O2 Flow Rate FiO2 04/13/19 16:00 74 04/13/19 16:00 98.1 72 20 138/81 (100) 95 04/13/19 16:00 4.0 04/13/19 15:28 73 20 99 Nasal Cannula 4.0 36 75 20 97 04/13/19 12:33 92 126/89 04/13/19 12:00 81 04/13/19 12:00 97.2 81 18 102/59 (73) 95 04/13/19 12:00 4.0 04/13/19 11:00 69 21 96 Facial 30 04/13/19 10:05 66 21 94 Facial 30 04/13/19 09:00 Nasal Cannula 4.0 04/13/19 08:19 105 04/13/19 08:00 115 04/13/19 08:00 97.0 115 20 149/81 (103) 95 04/13/19 08:00 4.0 04/13/19 07:30 95 Nasal Cannula 4.0 36 04/13/19 06:22 75 151/90 (110) 04/13/19 06:00 75 04/13/19 05:15 72 177/106 04/13/19 04:00 71 20 98 Nasal Cannula 4.0 36 04/13/19 04:00 98.1 72 22 177/106 (129) 97 04/13/19 04:00 4.0 04/13/19 03:50 72 20 95 Nasal Cannula 4.0 36 04/13/19 00:49 69 23 99 Bi-Pap 30 12/11/19 00:39 70 25 97 Bi-Pap 30 04/13/19 00:39 70 25 97 Facial 30 04/13/19 00:30 97.9 72 19 146/89 (108) 96 04/13/19 00:00 74 04/12/19 23:38 78 164/118 04/12/19 23:37 78 164/118 (133) 04/12/19 21:00 Nasal Cannula 4.0 Intake and Output 04/12/19 04/13/19 19:00 07:00 Intake Total 750 ml Output Total 1020 ml 1450 ml Balance -270 ml -1450 ml Intake Oral 750 ml Output Urine Total 1020 ml 1450 ml # Voids 1 # Bowel Movements 2 Height (Feet): 5 Height (Inches): 10.00 Weight (Pounds): 402 Cardiovascular: normal rate Respiratory/Chest: rhonchi - bilaterally Abdomen: soft Brodie De Jesus MD Apr 13, 2019 20:39
[2019-04-14] VITALS (7 sets, daily range): BP systolic 134–170; BP diastolic 83–116
[2019-04-14] MEDS: Morphine Sulfate 2mg/ml Inj(IV/IM USE ONLY) IVP PRN ×4 (02:15→21:36)
--- NOTE | 2019-04-14 03:08 | NUR ---
NURSE NOTES: Patient became tachycardic, up to 140s, ekg done, shows afib with rvr. Notified Dr. Doll regarding patient's change in rhythm. BP 148/93, patient denies any discomfort and is asymptomatic.
[2019-04-14] MEDS: Albuterol/Ipratropium 3ml neb HHN SCH ×6 (03:30→23:22)
--- NOTE | 2019-04-14 07:06 | NUR ---
NURSE NOTES: No call back from Dr. Doll, however, patient converted back to NSR, still asymptomatic.
--- NOTE | 2019-04-14 07:49 | NUR ---
NURSE NOTES: Received patient from KEESHA Navarrete sitting at the edge of the bed receiving breathing treatment, denies any pain at this time, No s/s of respiratory distress and no shortness of breath noted. IV site on left hand is intact and patent and SL. Bed is in lowest position, bedside rails up x2. Will continue with the plan of care.
[2019-04-14] MEDS: dilTIAZem HCl CD 180mg cap ORAL SCH (08:29)
[2019-04-14] MEDS: Aspirin Baby 81mg ORAL SCH (08:31)
[2019-04-14] MEDS: Eliquis 5mg tablet ORAL SCH ×2 (08:31→17:11)
[2019-04-14] MEDS: Docusate 100mg cap ORAL SCH ×3 (08:31→17:13)
[2019-04-14] MEDS: Solu-MEDROL 40mg Inj IVP SCH ×2 (08:32→17:13)
--- NOTE | 2019-04-14 08:36 | Hematology/Onc Progress Note ---
Assessment/Plan Assessment/Plan Assessment and Recs: # Secondary hypercoagulable disorder, has afib with rvr, w/u as per cards --> initially on heparin gtt --> NOW OFF --> cardizem po started for rhythm control --> per cards agree with apixaban # Leukocytosis is likely due to steroid use --> wbc trend 15-->20k-->18-->19 --> steroid taper --> abx as per id # Hypokalemia --> per renal, replete k --> diuresis # CHF (congestive heart failure) --> on lasix bid dosing, per cards # Obesity --> weight loss recommended --> lifestyle modification # Afib with rvr per cards --> on apixban --> rate control/rhythm # Dvt ppx apix DW Rn and appreciate consultation. Subjective HEENT: Denies: no symptoms, eye pain, blurred vision, tearing, double vision, ear pain, ear discharge, nose pain, nose congestion, throat pain, throat swelling, mouth pain, mouth swelling, other Cardiovascular: Denies: no symptoms, chest pain, edema, irregular heart rate, lightheadedness, palpitations, syncope, other Respiratory: Denies: no symptoms, cough, shortness of breath, SOB with excertion, SOB at rest, sputum, wheezing, other Gastrointestinal/Abdominal: Denies: no symptoms, abdomen distended, abdominal pain, black stools, tarry stools, blood in stool, constipated, diarrhea, difficulty swallowing, nausea, poor appetite, poor fluid intake, rectal bleeding , vomiting, other Genitourinary: Denies: no symptoms, burning, discharge, frequency, flank pain, hematuria, incontinence, pain, urgency, other Neurologic/Psychiatric: Denies: no symptoms, anxiety, depressed, emotional problems, headache, numbness, paresthesia, pre-existing deficit, seizure, tingling, tremors, weakness, other Endocrine: Denies: no symptoms, excessive sweating, flushing, intolerance to cold, intolerance to heat, increased hunger, increased thirst, increased urine, unexplained weight gain, unexplained weight loss, other Allergies: Coded Allergies: RIVAROXABAN (Verified Allergy, Unknown, 04/05/19) Subjective 04/11: remains on diltz and heparin gtt, oon bipap o/n 04/12: bipap overnight and 2lnc, as per cards on apixaban, still bp high 04/13: transferred to tele, awake and alert, no acute events, cbc ordered 04/14: Dr. Sharmila curran, afib with rvr, is on dig / cardizem, now nsr, no bleeding Objective Objective Current Medications Medications (Trade) Dose Ordered Sig/David Route PRN Reason Start Time Stop Time Status Last Admin Dose Admin Acetaminophen (Tylenol) 650 mg Q6H PRN ORAL Mild Pain/Temp > 100.5 04/12/19 12:30 05/08/19 18:27 Acetazolamide (Diamox) 250 mg DAILY ORAL 04/13/19 09:00 05/10/19 11:59 04/14/19 08:27 Albuterol/ Ipratropium (Albuterol/ Ipratropium) 3 ml Q4HRT HHN 04/12/19 15:00 04/16/19 02:59 04/14/19 07:47 Apixaban (Eliquis) 5 mg BID ORAL 04/12/19 18:00 05/11/19 17:59 04/14/19 08:31 Aspirin (ASA) 81 mg DAILY ORAL 04/13/19 09:00 05/06/19 08:59 04/14/19 08:31 Atorvastatin Calcium (Lipitor) 40 mg BEDTIME ORAL 04/12/19 21:00 05/06/19 20:59 04/13/19 20:00 Clonidine HCl (Catapres Tab) 0.1 mg Q4H PRN ORAL bp over 165 syst 04/12/19 11:45 05/08/19 11:44 Digoxin (Lanoxin) 0.25 mg DAILY ORAL 04/13/19 09:00 05/11/19 08:59 04/14/19 08:31 Diltiazem HCl (Cardizem CD) 360 mg DAILY ORAL 04/14/19 09:00 05/14/19 08:59 04/14/19 08:29 Docusate Sodium (Colace) 100 mg THREE TIMES A DAY ORAL 04/12/19 13:00 05/09/19 08:59 04/14/19 08:31 Folic Acid (Folate) 1 mg DAILY ORAL 04/13/19 09:00 05/10/19 10:59 04/14/19 08:32 Furosemide (Lasix) 80 mg Q12HR@0600,1800 IV 04/12/19 18:00 05/08/19 17:59 04/14/19 06:04 Gabapentin (Neurontin) 600 mg BID ORAL 04/12/19 18:00 05/06/19 17:59 04/14/19 08:31 Guaifenesin/ Dextromethorphan (Robitussin DM Syrup) 5 ml Q4H PRN ORAL For Cough 04/12/19 11:30 05/10/19 19:29 04/13/19 20:31 Methylprednisolone Sodium Succinate (Solu-MEDROL) 40 mg BID IVP 04/12/19 18:00 05/06/19 05:59 04/14/19 08:32 Morphine Sulfate (Morphine Sulfate) 1 mg Q6H PRN IVP Breakthrough Pain 04/12/19 11:45 04/15/19 11:44 04/14/19 08:33 Ondansetron HCl (Zofran) 4 mg Q6H PRN IVP Nausea & Vomiting 04/12/19 11:45 05/08/19 11:44 Oxycodone/ Acetaminophen (Percocet 5-325) 1 tab Q4H PRN ORAL Severe Pain (Pain Scale 7-10) 04/12/19 11:45 04/15/19 11:44 04/13/19 03:40 Pantoprazole (Protonix) 40 mg EVERY 12 HOURS ORAL 04/12/19 21:00 05/09/19 08:59 04/14/19 08:31 Potassium Chloride (K-Dur) 40 meq BID ORAL 04/12/19 18:00 05/06/19 08:59 04/14/19 08:32 Last 24 Hour Vital Signs Date Time Temp Pulse Resp B/P (MAP) Pulse Ox O2 Delivery O2 Flow Rate FiO2 04/14/19 08:31 92 04/14/19 08:29 92 167/106 04/14/19 07:47 79 20 99 Nasal Cannula 4.0 36 75 18 99 04/14/19 07:47 99 Nasal Cannula 4.0 36 04/14/19 04:28 100 04/14/19 04:16 4.0 04/14/19 04:06 97.7 94 20 148/116 (127) 97 04/14/19 04:00 124 12/12/19 03:27 73 20 99 Nasal Cannula 4.0 36 74 20 96 04/14/19 03:11 113 148/93 (111) 97 04/14/19 00:00 4.0 04/14/19 00:00 75 04/14/19 00:00 98.1 71 20 162/91 (114) 96 04/13/19 23:46 74 20 97 Nasal Cannula 4.0 36 70 20 93 04/13/19 21:00 Nasal Cannula 4.0 04/13/19 20:00 94 04/13/19 20:00 97.9 67 20 157/92 (113) 97 04/13/19 20:00 4.0 04/13/19 19:55 97 Nasal Cannula 4.0 36 04/13/19 16:00 74 04/13/19 16:00 98.1 72 20 138/81 (100) 95 04/13/19 16:00 4.0 04/13/19 15:28 73 20 99 Nasal Cannula 4.0 36 75 20 97 04/13/19 12:33 92 126/89 04/13/19 12:00 81 04/13/19 12:00 97.2 81 18 102/59 (73) 95 04/13/19 12:00 4.0 04/13/19 11:00 69 21 96 Facial 30 04/13/19 10:05 66 21 94 Facial 30 04/13/19 09:00 Nasal Cannula 4.0 04/13/19 08:19 105 04/13/19 08:00 115 04/13/19 08:00 97.0 115 20 149/81 (103) 95 04/13/19 08:00 4.0 04/13/19 07:30 95 Nasal Cannula 4.0 36 04/13/19 06:22 75 151/90 (110) 04/13/19 06:00 75 04/13/19 05:15 72 177/106 04/13/19 04:00 71 20 98 Nasal Cannula 4.0 36 04/13/19 04:00 98.1 72 22 177/106 (129) 97 04/13/19 04:00 4.0 04/13/19 03:50 72 20 95 Nasal Cannula 4.0 36 04/13/19 00:49 69 23 99 Bi-Pap 30 04/13/19 00:39 70 25 97 Bi-Pap 30 04/13/19 00:39 70 25 97 Facial 30 04/13/19 00:30 97.9 72 19 146/89 (108) 96 04/13/19 00:00 74 04/12/19 23:38 78 164/118 04/12/19 23:37 78 164/118 (133) 04/12/19 21:00 Nasal Cannula 4.0 04/12/19 20:21 66 20 99 Nasal Cannula 4.0 36 04/12/19 20:11 98 Nasal Cannula 4.0 36 04/12/19 20:11 65 20 98 Nasal Cannula 4.0 36 04/12/19 20:00 97.7 71 19 143/87 (105) 95 04/12/19 20:00 4.0 04/12/19 20:00 70 04/12/19 17:11 85 158/98 04/12/19 16:00 85 04/12/19 16:00 4.0 04/12/19 15:09 79 22 100 Nasal Cannula 4.0 36 78 22 98 04/12/19 13:20 71 158/98 04/12/19 12:00 4.0 04/12/19 12:00 74 04/12/19 12:00 97.9 71 20 158/98 (118) 94 04/12/19 10:48 72 20 160/99 (119) 04/12/19 10:47 84 22 97 Nasal Cannula 2.0 28 84 21 93 04/12/19 10:07 78 20 167/94 (118) 98 04/12/19 10:04 179/91 (120) 04/12/19 09:00 98.0 75 23 136/73 (94) 96 Intake and Output 04/13/19 04/14/19 19:00 07:00 Intake Total 2000 ml 360 ml Output Total 1800 ml 2000 ml Balance 200 ml -1640 ml Intake Oral 2000 ml 360 ml Output Urine Total 1800 ml 2000 ml # Bowel Movements 2 Labs Test 04/11/19 11:15 04/12/19 04:00 Activated Partial Thromboplast Time 60 SEC (23-33) White Blood Count 18.6 K/UL (4.8-10.8) Red Blood Count 5.35 M/UL (4.70-6.10) Hemoglobin 13.3 G/DL (14.2-18.0) Hematocrit 42.5 % (42.0-52.0) Mean Corpuscular Volume 79 FL (80-99) Mean Corpuscular Hemoglobin 24.9 PG (27.0-31.0) Mean Corpuscular Hemoglobin Concent 31.4 G/DL (32.0-36.0) Red Cell Distribution Width 16.0 % (11.6-14.8) Platelet Count 258 K/UL (150-450) Mean Platelet Volume 9.1 FL (6.5-10.1) Neutrophils (%) (Auto) % (45.0-75.0) Lymphocytes (%) (Auto) % (20.0-45.0) Monocytes (%) (Auto) % (1.0-10.0) Eosinophils (%) (Auto) % (0.0-3.0) Basophils (%) (Auto) % (0.0-2.0) Differential Total Cells Counted 100 Neutrophils % (Manual) 82 % (45-75) Lymphocytes % (Manual) 8 % (20-45) Monocytes % (Manual) 7 % (1-10) Eosinophils % (Manual) 0 % (0-3) Basophils % (Manual) 0 % (0-2) Metamyelocytes % 1 % (0-0) Myelocytes % 2 % (0-0) Band Neutrophils 0 % (0-8) Platelet Estimate Adequate Platelet Morphology Normal Red Blood Cell Morphology Hypochromasia 2+ Anisocytosis 1+ Microcytosis 2+ Sodium Level 143 MMOL/L (136-145) Potassium Level 4.0 MMOL/L (3.5-5.1) Chloride Level 104 MMOL/L (98-107) Carbon Dioxide Level 32 MMOL/L (21-32) Anion Gap 7 mmol/L (5-15) Blood Urea Nitrogen 36 mg/dL (7-18) Creatinine 1.5 MG/DL (0.55-1.30) Estimat Glomerular Filtration Rate 49.9 mL/min (>60) Glucose Level 152 MG/DL (74-106) Calcium Level 8.7 MG/DL (8.5-10.1) Digoxin Level 0.6 NG/ML (0.5-2.0) Height (Feet): 5 Height (Inches): 10.00 Weight (Pounds): 402 Objective Physical Exam General: Awake and alert, nad HEENT: NC/AT. EOMI. tympanic membranes are deeply erythematous though nonbulging , no effusion Cardiovascular: RRR. S1 and S2 normal. No murmur appreciated Resp: Normal work of breathing. No cough, wheezing or crackles appreciated Abdomen: Abdomen is soft, nondistended. Nontender Skin: Intact. No abrasions, laceration or rash over the exposed skin MSK: Normal tone and bulk. Moving all extremities. No obvious deformity. Ext: 1+ edema Harsh Lehman MD Apr 14, 2019 08:36
[2019-04-14 08:50] LABS: HEMATOCRIT 46.8 % (42.0-52.0); HEMOGLOBIN 14.8 G/DL (14.2-18.0); MEAN CORPUSCULAR VOLUME 80 FL (80-99); PLATELET COUNT 243 K/UL (150-450); RED BLOOD COUNT 5.85 M/UL (4.70-6.10); RED CELL DISTRIBUTION WIDTH 16.6 % (11.6-14.8); WHITE BLOOD COUNT 22.1 K/UL (4.8-10.8)
[2019-04-14 09:21] LABS: ALANINE AMINOTRANSFERASE 25 U/L (12-78); ALBUMIN 3.5 G/DL (3.4-5.0); ALBUMIN/GLOBULIN RATIO 1.1 (1.0-2.7); ALKALINE PHOSPHATASE 54 U/L (46-116); ANION GAP 5 mmol/L (5-15); ASPARTATE AMINO TRANSFERASE 8 U/L (15-37); BILIRUBIN,TOTAL 0.4 MG/DL (0.2-1.0); BLOOD UREA NITROGEN 41 mg/dL (7-18); CALCIUM 8.5 MG/DL (8.5-10.1); CARBON DIOXIDE 35 MMOL/L (21-32); CHLORIDE 104 MMOL/L (98-107); CREATININE 1.6 MG/DL (0.55-1.30); PHOSPHORUS 4.5 MG/DL (2.5-4.9); SODIUM 144 MMOL/L (136-145)
--- NOTE | 2019-04-14 09:21 | General Progress Note ---
Assessment/Plan Status: progressing Assessment/Plan: (1) Lumbar DDD (2) Lumbar Spondylosis (3) Morbid obesity Patient to be continued on Percocet and Morphine Parameters will be continued D/w Dr. Stack and he concurred. Subjective Date patient seen: Apr 14, 2019 Time patient seen: 09:00 - am Allergies: Coded Allergies: RIVAROXABAN (Verified Allergy, Unknown, 04/05/19) Subjective REVIEW OF SYSTEMS: Denies rash, fever, chills at this time, sweating, dizziness, drowsiness, blurred vision, sore throat, change in weight. No nausea, vomiting, diarrhea, or blood in the stool or urine. No dysuria. He is complaining of low back pain. SUBJECTIVE: Patient is sitting up in chair reports continued pain which has been tolerated on the Morphine 4 doses and Percocet 1 dose in the last 24hrs. He has no new complaints at this time. Objective Last 24 Hour Vital Signs Date Time Temp Pulse Resp B/P (MAP) Pulse Ox O2 Delivery O2 Flow Rate FiO2 04/14/19 08:31 92 04/14/19 08:29 92 167/106 04/14/19 08:00 97.5 92 22 167/106 (126) 99 04/14/19 07:47 79 20 99 Nasal Cannula 4.0 36 75 18 99 04/14/19 07:47 99 Nasal Cannula 4.0 36 04/14/19 04:28 100 04/14/19 04:16 4.0 04/14/19 04:06 97.7 94 20 148/116 (127) 97 04/14/19 04:00 124 04/14/19 03:27 73 20 99 Nasal Cannula 4.0 36 74 20 96 04/14/19 03:11 113 148/93 (111) 97 04/14/19 00:00 4.0 04/14/19 00:00 75 04/14/19 00:00 98.1 71 20 162/91 (114) 96 04/13/19 23:46 74 20 97 Nasal Cannula 4.0 36 70 20 93 04/13/19 21:00 Nasal Cannula 4.0 04/13/19 20:00 94 04/13/19 20:00 97.9 67 20 157/92 (113) 97 04/13/19 20:00 4.0 04/13/19 19:55 97 Nasal Cannula 4.0 36 04/13/19 16:00 74 04/13/19 16:00 98.1 72 20 138/81 (100) 95 04/13/19 16:00 4.0 04/13/19 15:28 73 20 99 Nasal Cannula 4.0 36 75 20 97 04/13/19 12:33 92 126/89 04/13/19 12:00 81 04/13/19 12:00 97.2 81 18 102/59 (73) 95 04/13/19 12:00 4.0 04/13/19 11:00 69 21 96 Facial 30 04/13/19 10:05 66 21 94 Facial 30 Intake and Output 04/13/19 04/14/19 19:00 07:00 Intake Total 2000 ml 360 ml Output Total 1800 ml 2000 ml Balance 200 ml -1640 ml Intake Oral 2000 ml 360 ml Output Urine Total 1800 ml 2000 ml # Bowel Movements 2 Laboratory Tests 04/14/19 08:00: White Blood Count 22.1*H, Red Blood Count 5.85, Hemoglobin 14.8, Hematocrit 46.8 , Mean Corpuscular Volume 80, Mean Corpuscular Hemoglobin 25.4L, Mean Corpuscular Hemoglobin Concent 31.7L, Red Cell Distribution Width 16.6H, Platelet Count 243, Mean Platelet Volume 9.1, Neutrophils (%) (Auto) , Lymphocytes (%) (Auto) , Monocytes (%) (Auto) , Eosinophils (%) (Auto) , Basophils (%) (Auto) , Neutrophils % (Manual) [Pending], Lymphocytes % (Manual) [Pending], Platelet Estimate [Pending], Platelet Morphology [Pending], Sodium Level [Pending], Potassium Level [Pending], Chloride Level [Pending], Carbon Dioxide Level [Pending], Blood Urea Nitrogen [Pending], Creatinine [Pending], Estimat Glomerular Filtration Rate [Pending], Glucose Level [Pending], Calcium Level [Pending], Phosphorus Level [Pending], Magnesium Level [Pending], Total Bilirubin [Pending], Aspartate Amino Transf (AST/SGOT) [Pending], Alanine Aminotransferase (ALT/SGPT) [Pending], Alkaline Phosphatase [Pending], C- Reactive Protein, Quantitative [Pending], Pro-B-Type Natriuretic Peptide [ Pending], Total Protein [Pending], Albumin [Pending], Globulin [Pending] Height (Feet): 5 Height (Inches): 10.00 Weight (Pounds): 402 Objective GENERAL: Alert, awake, and oriented. LUNGS: Decreased breath sounds bilaterally. HEART: S1 and S2 regular. ABDOMEN: Obese.. EXTREMITIES: No cyanosis. No clubbing. NEURO: No changes. Osito Sultana Apr 14, 2019 09:21
--- NOTE | 2019-04-14 09:51 | NUR ---
NURSE NOTES: Lab called, patient's WBC iS 22.1. Notify .
--- NOTE | 2019-04-14 09:59 | NUR ---
CASE MANAGEMENT:REVIEW 04/14/19 SI: CHF. COPD . LOW BACK PAIN 97.5 92 22 167/106 99% ON 4L/NC WBC 22.1 CO2 35 BUN 41 CREAT 1.6 BG 187 MG 2.7 IS: IV SOLUMEDROL BID IV LASIX BID K-DUR PO BID DIGOXIN PO QD DIAMOX PO QD PROTONIX PO Q12 ELIQUIS PO BID DUONEB HHN Q4HRS RTC ROBITUSSIN PO Q4/PRN CARDIZEM PO QD FOLATE OI QD LIPITOR PO QHS ASA PO QD NEURONTIN PO BID : TELEMETRY STATUS DCP: FROM HOME PLAN: CONTROLLED RAPID A FIB CONTROL HR CONTROL BP
--- NOTE | 2019-04-14 11:13 | Cardiac Electrophysiology PN ---
Assessment/Plan Assessment/Plan 1. Congestive heart failure due to diastolic dysfunction. On Lasix 80 mg IV b.i.d. EF 60% 2. Recurrent NSVT. No syncope. Nl EF. Stress test as out patient as couldn't fit in camera. No CP 3. Hypertension. Continue Lasix and Cardizem 4. Atrial fib with RVR. On Cardizem CD 360 daily and Digoxin 0.25 po daily 5. Morbid obesity. 6. COPD. On Solu-Medrol and CPAP 7. Lipidemia. On Lipitor. KIAN RN Subjective Subjective On tele. In atrial fib controlled on Dig and Cardizem. No more VT Objective Last 24 Hour Vital Signs Date Time Temp Pulse Resp B/P (MAP) Pulse Ox O2 Delivery O2 Flow Rate FiO2 04/14/19 09:00 Nasal Cannula 4.0 04/14/19 08:31 92 04/14/19 08:29 92 167/106 04/14/19 08:00 4.0 04/14/19 08:00 87 04/14/19 08:00 97.5 92 22 167/106 (126) 99 04/14/19 07:47 79 20 99 Nasal Cannula 4.0 36 75 18 99 04/14/19 07:47 99 Nasal Cannula 4.0 36 04/14/19 04:28 100 04/14/19 04:16 4.0 04/14/19 04:06 97.7 94 20 148/116 (127) 97 04/14/19 04:00 124 04/14/19 03:27 73 20 99 Nasal Cannula 4.0 36 74 20 96 04/14/19 03:11 113 148/93 (111) 97 04/14/19 00:00 4.0 04/14/19 00:00 75 04/14/19 00:00 98.1 71 20 162/91 (114) 96 04/13/19 23:46 74 20 97 Nasal Cannula 4.0 36 70 20 93 04/13/19 21:00 Nasal Cannula 4.0 04/13/19 20:00 94 04/13/19 20:00 97.9 67 20 157/92 (113) 97 04/13/19 20:00 4.0 04/13/19 19:55 97 Nasal Cannula 4.0 36 04/13/19 16:00 74 12/11/19 16:00 98.1 72 20 138/81 (100) 95 04/13/19 16:00 4.0 04/13/19 15:28 73 20 99 Nasal Cannula 4.0 36 75 20 97 04/13/19 12:33 92 126/89 04/13/19 12:00 81 04/13/19 12:00 97.2 81 18 102/59 (73) 95 04/13/19 12:00 4.0 Intake and Output 04/13/19 04/14/19 18:59 06:59 Intake Total 2000 ml 360 ml Output Total 1800 ml 2000 ml Balance 200 ml -1640 ml Intake Oral 2000 ml 360 ml Output Urine Total 1800 ml 2000 ml # Bowel Movements 2 Laboratory Tests Test 04/14/19 08:00 White Blood Count 22.1 K/UL (4.8-10.8) *H Red Blood Count 5.85 M/UL (4.70-6.10) Hemoglobin 14.8 G/DL (14.2-18.0) Hematocrit 46.8 % (42.0-52.0) Mean Corpuscular Volume 80 FL (80-99) Mean Corpuscular Hemoglobin 25.4 PG (27.0-31.0) L Mean Corpuscular Hemoglobin Concent 31.7 G/DL (32.0-36.0) L Red Cell Distribution Width 16.6 % (11.6-14.8) H Platelet Count 243 K/UL (150-450) Mean Platelet Volume 9.1 FL (6.5-10.1) Neutrophils (%) (Auto) % (45.0-75.0) Lymphocytes (%) (Auto) % (20.0-45.0) Monocytes (%) (Auto) % (1.0-10.0) Eosinophils (%) (Auto) % (0.0-3.0) Basophils (%) (Auto) % (0.0-2.0) Neutrophils % (Manual) Pending Lymphocytes % (Manual) Pending Platelet Estimate Pending Platelet Morphology Pending Sodium Level 144 MMOL/L (136-145) Potassium Level 4.0 MMOL/L (3.5-5.1) Chloride Level 104 MMOL/L (98-107) Carbon Dioxide Level 35 MMOL/L (21-32) H Anion Gap 5 mmol/L (5-15) Blood Urea Nitrogen 41 mg/dL (7-18) H Creatinine 1.6 MG/DL (0.55-1.30) H Estimat Glomerular Filtration Rate 46.4 mL/min (>60) Glucose Level 187 MG/DL (74-106) H Calcium Level 8.5 MG/DL (8.5-10.1) Phosphorus Level 4.5 MG/DL (2.5-4.9) Magnesium Level 2.7 MG/DL (1.8-2.4) H Total Bilirubin 0.4 MG/DL (0.2-1.0) Aspartate Amino Transf (AST/SGOT) 8 U/L (15-37) L Alanine Aminotransferase (ALT/SGPT) 25 U/L (12-78) Alkaline Phosphatase 54 U/L (46-116) C-Reactive Protein, Quantitative < 0.4 mg/dL (0.00-0.90) Pro-B-Type Natriuretic Peptide 321 pg/mL (0-125) H Total Protein 6.7 G/DL (6.4-8.2) Albumin 3.5 G/DL (3.4-5.0) Globulin 3.2 g/dL Albumin/Globulin Ratio 1.1 (1.0-2.7) Objective HEENT: No JVD. LUNGS: Coarse rhonchi. CARDIOVASCULAR: Regular S1 and S2 with no gallop or murmur. ABDOMEN: Soft. EXTREMITIES: 3+ pitting edema. Sandor Doll MD Apr 14, 2019 11:12
--- NOTE | 2019-04-14 12:51 | Cardiology Report ---
APPROVED REPORT EKG Measurement Heart [id number] Atrial fibrillation Prolonged QT Abnormal ECG
--- NOTE | 2019-04-14 12:54 | Cardiology Report ---
APPROVED REPORT EKG Measurement Heart [id number] Atrial fibrillation with rapid ventricular response with premature ventricular or aberrantly conducted complexes Voltage criteria for left ventricular hypertrophy T wave abnormality, consider lateral ischemia Abnormal ECG
--- NOTE | 2019-04-14 13:28 | Nephrology Progress Note ---
Assessment/Plan Problem List: (1) Hypokalemia (2) CHF (congestive heart failure) (3) Renal failure (4) Obesity, morbid, BMI 50 or higher (5) CO2 retention (6) COPD (chronic obstructive pulmonary disease) Assessment elevated Cr likely due to diuresis Obesity , NATASHA AT fib with FVR HTN Congestive heart failure, likely diastolic dysfunction. EF 60% Recurrent NSVT. No syncope. Hypertension. Morbid obesity. COPD. Lipidemia. Plan no labs today Keep BP in check Monitor lytes B12 and Folic acid Diamox PO per orders per cardio and pulmonary taper steroids as possible Subjective ROS Limited/Unobtainable: No Constitutional: Reports: malaise, weakness Objective Objective Last 24 Hour Vital Signs Date Time Temp Pulse Resp B/P (MAP) Pulse Ox O2 Delivery O2 Flow Rate FiO2 04/14/19 12:27 85 170/89 04/14/19 12:00 98.6 93 22 170/89 (116) 96 04/14/19 12:00 93 04/14/19 12:00 4.0 04/14/19 11:36 81 16 99 Nasal Cannula 4.0 36 83 16 98 04/14/19 09:00 Nasal Cannula 4.0 04/14/19 08:31 92 04/14/19 08:29 92 167/106 04/14/19 08:00 4.0 04/14/19 08:00 87 04/14/19 08:00 97.5 92 22 167/106 (126) 99 04/14/19 07:47 79 20 99 Nasal Cannula 4.0 36 75 18 99 04/14/19 07:47 99 Nasal Cannula 4.0 36 04/14/19 04:28 100 04/14/19 04:16 4.0 04/14/19 04:06 97.7 94 20 148/116 (127) 97 04/14/19 04:00 124 04/14/19 03:27 73 20 99 Nasal Cannula 4.0 36 74 20 96 04/14/19 03:11 113 148/93 (111) 97 04/14/19 00:00 4.0 04/14/19 00:00 75 04/14/19 00:00 98.1 71 20 162/91 (114) 96 04/13/19 23:46 74 20 97 Nasal Cannula 4.0 36 70 20 93 04/13/19 21:00 Nasal Cannula 4.0 04/13/19 20:00 94 04/13/19 20:00 97.9 67 20 157/92 (113) 97 04/13/19 20:00 4.0 04/13/19 19:55 97 Nasal Cannula 4.0 36 04/13/19 16:00 74 04/13/19 16:00 98.1 72 20 138/81 (100) 95 04/13/19 16:00 4.0 04/13/19 15:28 73 20 99 Nasal Cannula 4.0 36 75 20 97 Intake and Output 04/13/19 04/14/19 18:59 06:59 Intake Total 2000 ml 360 ml Output Total 1800 ml 2000 ml Balance 200 ml -1640 ml Intake Oral 2000 ml 360 ml Output Urine Total 1800 ml 2000 ml # Bowel Movements 2 Laboratory Tests 04/14/19 08:00: White Blood Count 22.1*H, Red Blood Count 5.85, Hemoglobin 14.8, Hematocrit 46.8 , Mean Corpuscular Volume 80, Mean Corpuscular Hemoglobin 25.4L, Mean Corpuscular Hemoglobin Concent 31.7L, Red Cell Distribution Width 16.6H, Platelet Count 243, Mean Platelet Volume 9.1, Neutrophils (%) (Auto) , Lymphocytes (%) (Auto) , Monocytes (%) (Auto) , Eosinophils (%) (Auto) , Basophils (%) (Auto) , Differential Total Cells Counted 100, Neutrophils % ( Manual) 85H, Lymphocytes % (Manual) 8L, Monocytes % (Manual) 6, Eosinophils % ( Manual) 0, Basophils % (Manual) 0, Band Neutrophils 1, Platelet Estimate Adequate, Platelet Morphology Normal, Red Blood Cell Morphology Normal, Sodium Level 144, Potassium Level 4.0, Chloride Level 104, Carbon Dioxide Level 35H, Anion Gap 5, Blood Urea Nitrogen 41H, Creatinine 1.6H, Estimat Glomerular Filtration Rate 46.4, Glucose Level 187H, Calcium Level 8.5, Phosphorus Level 4.5, Magnesium Level 2.7H, Total Bilirubin 0.4, Aspartate Amino Transf (AST/SGOT ) 8L, Alanine Aminotransferase (ALT/SGPT) 25, Alkaline Phosphatase 54, C- Reactive Protein, Quantitative < 0.4, Pro-B-Type Natriuretic Peptide 321H, Total Protein 6.7, Albumin 3.5, Globulin 3.2, Albumin/Globulin Ratio 1.1 Height (Feet): 5 Height (Inches): 10.00 Weight (Pounds): 402 General Appearance: mild distress Cardiovascular: tachycardia Respiratory/Chest: decreased breath sounds Abdomen: distended, other - obese Bebeto Yin MD Apr 14, 2019 13:28
--- NOTE | 2019-04-14 18:53 | Pulmonology Progress Note ---
Assessment/Plan Assessment/Plan Pulmonary Progress Note HPI The patient is a 48-year-old man with history of obesity and Congestive Heart Failure, admitted with chest pain, shortness of breath, fevera and chills as well as sore throat and ear pain for 3 to 4 days ago. Denies cough or sputum production, vomiting or diarrhea, no Lower extremity swelling. On PO meds for Afib, Less SOB, using BiPAP at night, up in chair Past Medical History: Obesity, Congestive Heart Failure, Chronic Obstructive Pulmonary Disease, Diabetes, Hypertension Allergies: RIVAROXABAN All Other Systems: negative except mentioned in HPI Physical Exam Vital Signs Noted General: Awake and alert, no acute distress HEENT: NC/AT. EOMI. tympanic membranes are erythematous, Pharynx is erythematous , no exudates, moist mm Cardiovascular: RRR. S1 and S2 normal. No murmur appreciated. Mild edema noted Resp: Normal work of breathing. CTAB Abdomen: Abdomen is soft, nondistended. Nontender Skin: Intact. No abrasions, laceration or rash over the exposed skin Extremities: Normal tone and bulk. Moving all extremities. No obvious deformity. Neuro: Awake and alert. Mentating appropriately. Impression: Congestive heart failure Viral Illness Chronic Obstructive Pulmonary Disease No focal Infiltrates Obesity Hypertension Diabetes Hypokalemia Plan - Diuresis PRN - IV Solumedrol, wean as tolerated - 40 daily, can be converted to Medrol dosepack on DC - HHN - O2 PRN - BiPAP PRN/QHS - PO Doxycycline - ISS - PPX - [employer] Medications Laboratory Tests Noted EKG: Sinus rhythm with PACs. No ST segment changes. Normal intervals CXR: no consolidation, other - bilateral pulmonary congestion, questionable effusions. No obvious consolidation Subjective ROS Limited/Unobtainable: No Allergies: Coded Allergies: RIVAROXABAN (Verified Allergy, Unknown, 04/05/19) Objective Last 24 Hour Vital Signs Date Time Temp Pulse Resp B/P (MAP) Pulse Ox O2 Delivery O2 Flow Rate FiO2 04/14/19 17:12 71 143/83 04/14/19 16:00 64 04/14/19 16:00 98.8 71 20 143/83 (103) 96 04/14/19 16:00 4.0 04/14/19 15:56 75 16 99 Nasal Cannula 4.0 36 67 16 97 04/14/19 12:27 85 170/89 04/14/19 12:00 98.6 93 22 170/89 (116) 96 04/14/19 12:00 93 04/14/19 12:00 4.0 04/14/19 11:36 81 16 99 Nasal Cannula 4.0 36 83 16 98 04/14/19 09:00 Nasal Cannula 4.0 04/14/19 08:31 92 04/14/19 08:29 92 167/106 04/14/19 08:00 4.0 04/14/19 08:00 87 04/14/19 08:00 97.5 92 22 167/106 (126) 99 04/14/19 07:47 79 20 99 Nasal Cannula 4.0 36 75 18 99 04/14/19 07:47 99 Nasal Cannula 4.0 36 04/14/19 04:28 100 04/14/19 04:16 4.0 04/14/19 04:06 97.7 94 20 148/116 (127) 97 04/14/19 04:00 124 04/14/19 03:27 73 20 99 Nasal Cannula 4.0 36 74 20 96 04/14/19 03:11 113 148/93 (111) 97 04/14/19 00:00 4.0 04/14/19 00:00 75 04/14/19 00:00 98.1 71 20 162/91 (114) 96 04/13/19 23:46 74 20 97 Nasal Cannula 4.0 36 70 20 93 04/13/19 21:00 Nasal Cannula 4.0 04/13/19 20:00 94 04/13/19 20:00 97.9 67 20 157/92 (113) 97 04/13/19 20:00 4.0 04/13/19 19:55 97 Nasal Cannula 4.0 36 Intake and Output 04/13/19 04/14/19 19:00 07:00 Intake Total 2000 ml 360 ml Output Total 1800 ml 2000 ml Balance 200 ml -1640 ml Intake Oral 2000 ml 360 ml Output Urine Total 1800 ml 2000 ml # Bowel Movements 2 Laboratory Tests 04/14/19 08:00: White Blood Count 22.1*H, Red Blood Count 5.85, Hemoglobin 14.8, Hematocrit 46.8 , Mean Corpuscular Volume 80, Mean Corpuscular Hemoglobin 25.4L, Mean Corpuscular Hemoglobin Concent 31.7L, Red Cell Distribution Width 16.6H, Platelet Count 243, Mean Platelet Volume 9.1, Neutrophils (%) (Auto) , Lymphocytes (%) (Auto) , Monocytes (%) (Auto) , Eosinophils (%) (Auto) , Basophils (%) (Auto) , Differential Total Cells Counted 100, Neutrophils % ( Manual) 85H, Lymphocytes % (Manual) 8L, Monocytes % (Manual) 6, Eosinophils % ( Manual) 0, Basophils % (Manual) 0, Band Neutrophils 1, Platelet Estimate Adequate, Platelet Morphology Normal, Red Blood Cell Morphology Normal, Sodium Level 144, Potassium Level 4.0, Chloride Level 104, Carbon Dioxide Level 35H, Anion Gap 5, Blood Urea Nitrogen 41H, Creatinine 1.6H, Estimat Glomerular Filtration Rate 46.4, Glucose Level 187H, Calcium Level 8.5, Phosphorus Level 4.5, Magnesium Level 2.7H, Total Bilirubin 0.4, Aspartate Amino Transf (AST/SGOT ) 8L, Alanine Aminotransferase (ALT/SGPT) 25, Alkaline Phosphatase 54, C- Reactive Protein, Quantitative < 0.4, Pro-B-Type Natriuretic Peptide 321H, Total Protein 6.7, Albumin 3.5, Globulin 3.2, Albumin/Globulin Ratio 1.1 Current Medications Medications (Trade) Dose Ordered Sig/David Route PRN Reason Start Time Stop Time Status Last Admin Dose Admin Acetaminophen (Tylenol) 650 mg Q6H PRN ORAL Mild Pain/Temp > 100.5 04/12/19 12:30 05/08/19 18:27 Acetazolamide (Diamox) 250 mg DAILY ORAL 04/13/19 09:00 05/10/19 11:59 04/14/19 08:27 Albuterol/ Ipratropium (Albuterol/ Ipratropium) 3 ml Q4HRT HHN 04/12/19 15:00 04/16/19 02:59 04/14/19 15:55 Apixaban (Eliquis) 5 mg BID ORAL 04/12/19 18:00 05/11/19 17:59 04/14/19 17:11 Aspirin (ASA) 81 mg DAILY ORAL 04/13/19 09:00 05/06/19 08:59 04/14/19 08:31 Atorvastatin Calcium (Lipitor) 40 mg BEDTIME ORAL 04/12/19 21:00 05/06/19 20:59 04/13/19 20:00 Clonidine HCl (Catapres Tab) 0.1 mg Q4H PRN ORAL bp over 165 syst 04/12/19 11:45 05/08/19 11:44 Digoxin (Lanoxin) 0.25 mg DAILY ORAL 04/13/19 09:00 05/11/19 08:59 04/14/19 08:31 Diltiazem HCl (Cardizem CD) 360 mg DAILY ORAL 04/14/19 09:00 05/14/19 08:59 04/14/19 08:29 Docusate Sodium (Colace) 100 mg THREE TIMES A DAY ORAL 04/12/19 13:00 05/09/19 08:59 04/14/19 17:13 Folic Acid (Folate) 1 mg DAILY ORAL 04/13/19 09:00 05/10/19 10:59 04/14/19 08:32 Furosemide (Lasix) 80 mg Q12HR@0600,1800 IV 04/12/19 18:00 05/08/19 17:59 04/14/19 17:13 Gabapentin (Neurontin) 600 mg BID ORAL 04/12/19 18:00 05/06/19 17:59 04/14/19 17:12 Guaifenesin/ Dextromethorphan (Robitussin DM Syrup) 5 ml Q4H PRN ORAL For Cough 04/12/19 11:30 05/10/19 19:29 04/13/19 20:31 Methylprednisolone Sodium Succinate (Solu-MEDROL) 40 mg BID IVP 04/12/19 18:00 05/06/19 05:59 04/14/19 17:13 Metoprolol Tartrate (Lopressor) 25 mg BID ORAL 04/14/19 11:30 05/14/19 11:29 04/14/19 17:12 Morphine Sulfate (Morphine Sulfate) 1 mg Q6H PRN IVP Breakthrough Pain 04/12/19 11:45 04/15/19 11:44 04/14/19 14:56 Ondansetron HCl (Zofran) 4 mg Q6H PRN IVP Nausea & Vomiting 04/12/19 11:45 05/08/19 11:44 Oxycodone/ Acetaminophen (Percocet 5-325) 1 tab Q4H PRN ORAL Severe Pain (Pain Scale 7-10) 04/12/19 11:45 04/15/19 11:44 04/13/19 03:40 Pantoprazole (Protonix) 40 mg EVERY 12 HOURS ORAL 04/12/19 21:00 05/09/19 08:59 04/14/19 08:31 Potassium Chloride (K-Dur) 40 meq BID ORAL 04/12/19 18:00 05/06/19 08:59 04/14/19 17:12 Mahesh Wise MD Apr 14, 2019 18:53
--- NOTE | 2019-04-14 19:29 | NUR ---
HAND-OFF: Report given to KEESHA Giang. Patient is in stable condition.
--- NOTE | 2019-04-14 19:30 | NUR ---
NURSE NOTES: Received patient from KEESHA Crawley, patient in stable condition, no distress, on O2 n/c @2L, sitting in chair watching tv. Patient is not compliant with fluid restriction. will continue to monitor
--- NOTE | 2019-04-14 20:42 | General Progress Note ---
Assessment/Plan Problem List: (1) Hypokalemia ICD Codes: E87.6 - Hypokalemia SNOMED: 33692812 (2) CHF (congestive heart failure) ICD Codes: I50.9 - Heart failure, unspecified SNOMED: 61369419 (3) Lower back pain ICD Codes: M54.5 - Low back pain SNOMED: 333359734 Status: progressing Assessment/Plan: resp insuff sleep apnea not improving lethargic at time pleural effusion needs fluid removal Subjective ROS Limited/Unobtainable: Yes Allergies: Coded Allergies: RIVAROXABAN (Verified Allergy, Unknown, 04/05/19) Objective Last 24 Hour Vital Signs Date Time Temp Pulse Resp B/P (MAP) Pulse Ox O2 Delivery O2 Flow Rate FiO2 04/14/19 19:27 94 Nasal Cannula 4.0 36 04/14/19 17:12 71 143/83 04/14/19 16:00 64 04/14/19 16:00 98.8 71 20 143/83 (103) 96 04/14/19 16:00 4.0 04/14/19 15:56 75 16 99 Nasal Cannula 4.0 36 67 16 97 04/14/19 12:27 85 170/89 04/14/19 12:00 98.6 93 22 170/89 (116) 96 04/14/19 12:00 93 04/14/19 12:00 4.0 04/14/19 11:36 81 16 99 Nasal Cannula 4.0 36 83 16 98 04/14/19 09:00 Nasal Cannula 4.0 04/14/19 08:31 92 04/14/19 08:29 92 167/106 04/14/19 08:00 4.0 04/14/19 08:00 87 04/14/19 08:00 97.5 92 22 167/106 (126) 99 04/14/19 07:47 79 20 99 Nasal Cannula 4.0 36 75 18 99 04/14/19 07:47 99 Nasal Cannula 4.0 36 04/14/19 04:28 100 04/14/19 04:16 4.0 04/14/19 04:06 97.7 94 20 148/116 (127) 97 04/14/19 04:00 124 04/14/19 03:27 73 20 99 Nasal Cannula 4.0 36 74 20 96 04/14/19 03:11 113 148/93 (111) 97 04/14/19 00:00 4.0 04/14/19 00:00 75 04/14/19 00:00 98.1 71 20 162/91 (114) 96 04/13/19 23:46 74 20 97 Nasal Cannula 4.0 36 70 20 93 04/13/19 21:00 Nasal Cannula 4.0 Intake and Output 04/13/19 04/14/19 19:00 07:00 Intake Total 2000 ml 360 ml Output Total 1800 ml 2000 ml Balance 200 ml -1640 ml Intake Oral 2000 ml 360 ml Output Urine Total 1800 ml 2000 ml # Bowel Movements 2 Laboratory Tests 04/14/19 08:00: White Blood Count 22.1*H, Red Blood Count 5.85, Hemoglobin 14.8, Hematocrit 46.8 , Mean Corpuscular Volume 80, Mean Corpuscular Hemoglobin 25.4L, Mean Corpuscular Hemoglobin Concent 31.7L, Red Cell Distribution Width 16.6H, Platelet Count 243, Mean Platelet Volume 9.1, Neutrophils (%) (Auto) , Lymphocytes (%) (Auto) , Monocytes (%) (Auto) , Eosinophils (%) (Auto) , Basophils (%) (Auto) , Differential Total Cells Counted 100, Neutrophils % ( Manual) 85H, Lymphocytes % (Manual) 8L, Monocytes % (Manual) 6, Eosinophils % ( Manual) 0, Basophils % (Manual) 0, Band Neutrophils 1, Platelet Estimate Adequate, Platelet Morphology Normal, Red Blood Cell Morphology Normal, Sodium Level 144, Potassium Level 4.0, Chloride Level 104, Carbon Dioxide Level 35H, Anion Gap 5, Blood Urea Nitrogen 41H, Creatinine 1.6H, Estimat Glomerular Filtration Rate 46.4, Glucose Level 187H, Calcium Level 8.5, Phosphorus Level 4.5, Magnesium Level 2.7H, Total Bilirubin 0.4, Aspartate Amino Transf (AST/SGOT ) 8L, Alanine Aminotransferase (ALT/SGPT) 25, Alkaline Phosphatase 54, C- Reactive Protein, Quantitative < 0.4, Pro-B-Type Natriuretic Peptide 321H, Total Protein 6.7, Albumin 3.5, Globulin 3.2, Albumin/Globulin Ratio 1.1 Height (Feet): 5 Height (Inches): 10.00 Weight (Pounds): 402 Cardiovascular: normal rate Respiratory/Chest: rhonchi - bilaterally Brodie De Jesus MD Apr 14, 2019 20:42
[2019-04-14] MEDS: Atorvastatin 20mg tab ORAL SCH (21:37)
[2019-04-15] VITALS: BP 154/91
--- NOTE | 2019-04-15 02:00 | NUR ---
NURSE NOTES: Patient non-compliant with fluid restriction. Demanded fluid stating " I have the right to have juice" . Explained the risksx3 and provided patient with juice and water
[2019-04-15] MEDS: Albuterol/Ipratropium 3ml neb HHN SCH ×6 (03:47→22:37)
[2019-04-15 04:00] VITALS: BP 173/95
[2019-04-15] MEDS: Morphine Sulfate 2mg/ml Inj(IV/IM USE ONLY) IVP PRN ×3 (04:10→17:52)
--- NOTE | 2019-04-15 06:03 | Hematology/Onc Progress Note ---
Assessment/Plan Assessment/Plan Assessment and Recs: # Secondary hypercoagulable disorder, has afib with rvr, w/u as per cards --> initially on heparin gtt --> NOW OFF --> cardizem po started for rhythm control --> per cards agree with apixaban # Leukocytosis is likely due to steroid use --> wbc trend 15-->20k-->18-->19-->22 --> steroid taper --> abx as per id # Hypokalemia --> per renal, replete k --> diuresis # CHF (congestive heart failure) v copd exacerbation --> on lasix bid dosing, per cards --> bipap afterload reduction # Obesity --> weight loss recommended --> lifestyle modification # Afib with rvr per cards --> on apixban --> rate control/rhythm # Dvt ppx apix DW Rn and appreciate consultation. Subjective Constitutional: Denies: no symptoms, chills, fever, malaise, weakness, other Cardiovascular: Denies: no symptoms, chest pain, edema, irregular heart rate, lightheadedness, palpitations, syncope, other Respiratory: Denies: no symptoms, cough, shortness of breath, SOB with excertion, SOB at rest, sputum, wheezing, other Gastrointestinal/Abdominal: Denies: no symptoms, abdomen distended, abdominal pain, black stools, tarry stools, blood in stool, constipated, diarrhea, difficulty swallowing, nausea, poor appetite, poor fluid intake, rectal bleeding , vomiting, other Genitourinary: Denies: no symptoms, burning, discharge, frequency, flank pain, hematuria, incontinence, pain, urgency, other Neurologic/Psychiatric: Denies: no symptoms, anxiety, depressed, emotional problems, headache, numbness, paresthesia, pre-existing deficit, seizure, tingling, tremors, weakness, other Endocrine: Denies: no symptoms, excessive sweating, flushing, intolerance to cold, intolerance to heat, increased hunger, increased thirst, increased urine, unexplained weight gain, unexplained weight loss, other Allergies: Coded Allergies: RIVAROXABAN (Verified Allergy, Unknown, 04/05/19) Subjective 04/11: remains on diltz and heparin gtt, oon bipap o/n 04/12: bipap overnight and 2lnc, as per cards on apixaban, still bp high 04/13: transferred to tele, awake and alert, no acute events, cbc ordered 04/14: Dr. Sharmila curran, afib with rvr, is on dig / cardizem, now nsr, no bleeding 04/15: wbc remains higher but likely due to steriods, refusing fluid restriction Objective Objective Current Medications Medications (Trade) Dose Ordered Sig/David Route PRN Reason Start Time Stop Time Status Last Admin Dose Admin Acetaminophen (Tylenol) 650 mg Q6H PRN ORAL Mild Pain/Temp > 100.5 04/12/19 12:30 05/08/19 18:27 Acetazolamide (Diamox) 250 mg DAILY ORAL 04/13/19 09:00 05/10/19 11:59 04/14/19 08:27 Albuterol/ Ipratropium (Albuterol/ Ipratropium) 3 ml Q4HRT HHN 04/12/19 15:00 04/16/19 02:59 04/15/19 03:47 Apixaban (Eliquis) 5 mg BID ORAL 04/12/19 18:00 05/11/19 17:59 04/14/19 17:11 Aspirin (ASA) 81 mg DAILY ORAL 04/13/19 09:00 05/06/19 08:59 04/14/19 08:31 Atorvastatin Calcium (Lipitor) 40 mg BEDTIME ORAL 04/12/19 21:00 05/06/19 20:59 04/14/19 21:37 Clonidine HCl (Catapres Tab) 0.1 mg Q4H PRN ORAL bp over 165 syst 04/12/19 11:45 05/08/19 11:44 04/15/19 04:37 Digoxin (Lanoxin) 0.25 mg DAILY ORAL 04/13/19 09:00 05/11/19 08:59 04/14/19 08:31 Diltiazem HCl (Cardizem CD) 360 mg DAILY ORAL 04/14/19 09:00 05/14/19 08:59 04/14/19 08:29 Docusate Sodium (Colace) 100 mg THREE TIMES A DAY ORAL 04/12/19 13:00 05/09/19 08:59 04/14/19 17:13 Folic Acid (Folate) 1 mg DAILY ORAL 04/13/19 09:00 05/10/19 10:59 04/14/19 08:32 Furosemide (Lasix) 80 mg Q12HR@0600,1800 IV 04/12/19 18:00 05/08/19 17:59 04/15/19 05:46 Gabapentin (Neurontin) 600 mg BID ORAL 04/12/19 18:00 05/06/19 17:59 04/14/19 17:12 Guaifenesin/ Dextromethorphan (Robitussin DM Syrup) 5 ml Q4H PRN ORAL For Cough 04/12/19 11:30 05/10/19 19:29 04/13/19 20:31 Methylprednisolone Sodium Succinate (Solu-MEDROL) 40 mg Q24HRS IVP 04/15/19 21:00 05/06/19 05:59 Metoprolol Tartrate (Lopressor) 25 mg BID ORAL 04/14/19 11:30 05/14/19 11:29 04/14/19 17:12 Morphine Sulfate (Morphine Sulfate) 1 mg Q6H PRN IVP Breakthrough Pain 04/12/19 11:45 04/15/19 11:44 04/15/19 04:10 Ondansetron HCl (Zofran) 4 mg Q6H PRN IVP Nausea & Vomiting 04/12/19 11:45 05/08/19 11:44 Oxycodone/ Acetaminophen (Percocet 5-325) 1 tab Q4H PRN ORAL Severe Pain (Pain Scale 7-10) 04/12/19 11:45 04/15/19 11:44 04/13/19 03:40 Pantoprazole (Protonix) 40 mg EVERY 12 HOURS ORAL 04/12/19 21:00 05/09/19 08:59 04/14/19 21:38 Potassium Chloride (K-Dur) 40 meq BID ORAL 04/12/19 18:00 05/06/19 08:59 04/14/19 17:12 Last 24 Hour Vital Signs Date Time Temp Pulse Resp B/P (MAP) Pulse Ox O2 Delivery O2 Flow Rate FiO2 04/15/19 05:22 64 20 97 Facial 30 04/15/19 04:37 173/95 04/15/19 04:00 53 04/15/19 04:00 4.0 04/15/19 04:00 98.5 58 19 173/95 (121) 94 04/15/19 03:45 61 18 99 Nasal Cannula 4.0 36 56 18 95 04/15/19 01:34 63 22 98 Facial 30 04/15/19 00:10 4.0 04/15/19 00:00 98.8 63 19 154/91 (112) 94 04/15/19 00:00 70 04/14/19 23:22 74 16 98 Nasal Cannula 4.0 36 69 16 94 04/14/19 21:00 Nasal Cannula 4.0 04/14/19 20:00 69 04/14/19 20:00 98.6 66 19 134/87 (103) 94 04/14/19 19:27 94 Nasal Cannula 4.0 36 04/14/19 17:12 71 143/83 04/14/19 16:00 64 04/14/19 16:00 98.8 71 20 143/83 (103) 96 04/14/19 16:00 4.0 04/14/19 15:56 75 16 99 Nasal Cannula 4.0 36 67 16 97 04/14/19 12:27 85 170/89 04/14/19 12:00 98.6 93 22 170/89 (116) 96 04/14/19 12:00 93 04/14/19 12:00 4.0 04/14/19 11:36 81 16 99 Nasal Cannula 4.0 36 83 16 98 04/14/19 09:00 Nasal Cannula 4.0 04/14/19 08:31 92 04/14/19 08:29 92 167/106 04/14/19 08:00 4.0 04/14/19 08:00 87 04/14/19 08:00 97.5 92 22 167/106 (126) 99 04/14/19 07:47 79 20 99 Nasal Cannula 4.0 36 75 18 99 04/14/19 07:47 99 Nasal Cannula 4.0 36 04/14/19 04:28 100 04/14/19 04:16 4.0 04/14/19 04:06 97.7 94 20 148/116 (127) 97 04/14/19 04:00 124 04/14/19 03:27 73 20 99 Nasal Cannula 4.0 36 74 20 96 04/14/19 03:11 113 148/93 (111) 97 04/14/19 00:00 4.0 04/14/19 00:00 75 04/14/19 00:00 98.1 71 20 162/91 (114) 96 04/13/19 23:46 74 20 97 Nasal Cannula 4.0 36 70 20 93 04/13/19 21:00 Nasal Cannula 4.0 04/13/19 20:00 94 04/13/19 20:00 97.9 67 20 157/92 (113) 97 04/13/19 20:00 4.0 04/13/19 19:55 97 Nasal Cannula 4.0 36 04/13/19 16:00 74 04/13/19 16:00 98.1 72 20 138/81 (100) 95 04/13/19 16:00 4.0 04/13/19 15:28 73 20 99 Nasal Cannula 4.0 36 75 20 97 04/13/19 12:33 92 126/89 04/13/19 12:00 81 04/13/19 12:00 97.2 81 18 102/59 (73) 95 04/13/19 12:00 4.0 04/13/19 11:00 69 21 96 Facial 30 04/13/19 10:05 66 21 94 Facial 30 04/13/19 09:00 Nasal Cannula 4.0 04/13/19 08:19 105 04/13/19 08:00 115 04/13/19 08:00 97.0 115 20 149/81 (103) 95 04/13/19 08:00 4.0 04/13/19 07:30 95 Nasal Cannula 4.0 36 04/13/19 06:22 75 151/90 (110) Intake and Output 04/14/19 04/15/19 19:00 07:00 Intake Total 1200 ml Output Total 3700 ml 1500 ml Balance -2500 ml -1500 ml Intake Oral 1200 ml Output Urine Total 3700 ml 1500 ml # Bowel Movements 1 Labs Test 04/14/19 08:00 White Blood Count 22.1 K/UL (4.8-10.8) Red Blood Count 5.85 M/UL (4.70-6.10) Hemoglobin 14.8 G/DL (14.2-18.0) Hematocrit 46.8 % (42.0-52.0) Mean Corpuscular Volume 80 FL (80-99) Mean Corpuscular Hemoglobin 25.4 PG (27.0-31.0) Mean Corpuscular Hemoglobin Concent 31.7 G/DL (32.0-36.0) Red Cell Distribution Width 16.6 % (11.6-14.8) Platelet Count 243 K/UL (150-450) Mean Platelet Volume 9.1 FL (6.5-10.1) Neutrophils (%) (Auto) % (45.0-75.0) Lymphocytes (%) (Auto) % (20.0-45.0) Monocytes (%) (Auto) % (1.0-10.0) Eosinophils (%) (Auto) % (0.0-3.0) Basophils (%) (Auto) % (0.0-2.0) Differential Total Cells Counted 100 Neutrophils % (Manual) 85 % (45-75) Lymphocytes % (Manual) 8 % (20-45) Monocytes % (Manual) 6 % (1-10) Eosinophils % (Manual) 0 % (0-3) Basophils % (Manual) 0 % (0-2) Band Neutrophils 1 % (0-8) Platelet Estimate Adequate Platelet Morphology Normal Red Blood Cell Morphology Normal Sodium Level 144 MMOL/L (136-145) Potassium Level 4.0 MMOL/L (3.5-5.1) Chloride Level 104 MMOL/L (98-107) Carbon Dioxide Level 35 MMOL/L (21-32) Anion Gap 5 mmol/L (5-15) Blood Urea Nitrogen 41 mg/dL (7-18) Creatinine 1.6 MG/DL (0.55-1.30) Estimat Glomerular Filtration Rate 46.4 mL/min (>60) Glucose Level 187 MG/DL (74-106) Calcium Level 8.5 MG/DL (8.5-10.1) Phosphorus Level 4.5 MG/DL (2.5-4.9) Magnesium Level 2.7 MG/DL (1.8-2.4) Total Bilirubin 0.4 MG/DL (0.2-1.0) Aspartate Amino Transf (AST/SGOT) 8 U/L (15-37) Alanine Aminotransferase (ALT/SGPT) 25 U/L (12-78) Alkaline Phosphatase 54 U/L (46-116) C-Reactive Protein, Quantitative < 0.4 mg/dL (0.00-0.90) Pro-B-Type Natriuretic Peptide 321 pg/mL (0-125) Total Protein 6.7 G/DL (6.4-8.2) Albumin 3.5 G/DL (3.4-5.0) Globulin 3.2 g/dL Albumin/Globulin Ratio 1.1 (1.0-2.7) Height (Feet): 5 Height (Inches): 10.00 Weight (Pounds): 402 Objective Physical Exam General: Awake and alert, nad HEENT: NC/AT. EOMI. tympanic membranes are deeply erythematous though nonbulging , no effusion Cardiovascular: RRR. S1 and S2 normal. No murmur appreciated Resp: Normal work of breathing.++ wheezing Abdomen: Abdomen is soft, nondistended. Nontender Skin: Intact. No abrasions, laceration or rash over the exposed skin MSK: Normal tone and bulk. Moving all extremities. No obvious deformity. Ext: 1+ edema Harsh Lehman MD Apr 15, 2019 06:03
--- NOTE | 2019-04-15 07:45 | NUR ---
HAND-OFF: Report given to Terrie Lovett, patient in stable condition, plan of care endorsed.
--- NOTE | 2019-04-15 07:45 | NUR ---
NURSE NOTES: Received patient A/A/OX4. sitting at the edge of the bed having breakfast. Instructed his fld restrictions. denies any pain at this time. On O2 3L via NC. No s/s of respiratory distress and no shortness of breath noted. IV site on left hand is intact and patent and SL. Bed is in lowest position, siderails up x2. call light is within reach. Will continue with the plan of care.
[2019-04-15 08:00] VITALS: BP 147/90
[2019-04-15] MEDS: Guaifenesin/DM 10ml syrup ORAL PRN (08:22)
[2019-04-15] MEDS: Docusate 100mg cap ORAL SCH ×3 (08:22→17:03)
[2019-04-15] MEDS: Eliquis 5mg tablet ORAL SCH ×2 (08:24→17:03)
[2019-04-15] MEDS: Aspirin Baby 81mg ORAL SCH (08:25)
[2019-04-15] MEDS: dilTIAZem HCl CD 180mg cap ORAL SCH (08:25)
--- NOTE | 2019-04-15 09:40 | NUR ---
CASE MANAGEMENT:REVIEW 04/15/19 SI: CHF. COPD . LOW BACK PAIN 98.4 81 147/90 96% ON 4L/NC IS: IV SOLUMEDROL BID IV LASIX BID K-DUR PO BID CARDIZEM PO QD CLONIDINE Q4/PRN DIGOXIN PO QD LOPRESSOR PO BID DIAMOX PO QD PROTONIX PO Q12 ELIQUIS PO BID DUONEB HHN Q4HRS ROBITUSSIN PO Q4/PRN FOLATE PO QD LIPITOR PO QHS ASA PO QD NEURONTIN PO BID : TELEMETRY STATUS DCP: FROM HOME PLAN: CONTROLLED RAPID A FIB - EPISODE OF AFIB HR 140'S CONTROL BP
--- NOTE | 2019-04-15 10:00 | NUR ---
NURSE NOTES: cough syrup given per MD order. able to ambulate to the bathroom without any distress noted. will cont to monitor.
--- NOTE | 2019-04-15 11:05 | General Progress Note ---
Assessment/Plan Assessment/Plan: (1) Lumbar DDD (2) Lumbar Spondylosis (3) Morbid obesity Patient to be continued on Percocet and Morphine Parameters will be continued D/w Dr. Stack and he concurred. Subjective Date patient seen: Apr 15, 2019 Time patient seen: 10:30 - am Allergies: Coded Allergies: RIVAROXABAN (Verified Allergy, Unknown, 04/05/19) Subjective REVIEW OF SYSTEMS: Denies rash, fever, chills at this time, sweating, dizziness, drowsiness, blurred vision, sore throat, change in weight. No nausea, vomiting, diarrhea, or blood in the stool or urine. No dysuria. He is complaining of low back pain. SUBJECTIVE: Patient states his pain has been well tolerated on the morphine using 5 doses in the last 24hrs. Says he is doing better. Has no new complaints at this time. Objective Last 24 Hour Vital Signs Date Time Temp Pulse Resp B/P (MAP) Pulse Ox O2 Delivery O2 Flow Rate FiO2 04/15/19 09:00 Nasal Cannula 4.0 04/15/19 08:25 84 146/90 04/15/19 08:25 84 146/90 04/15/19 08:24 84 04/15/19 08:00 4.0 04/15/19 08:00 98.4 81 18 147/90 (109) 96 04/15/19 07:52 98 Nasal Cannula 4.0 36 04/15/19 07:52 67 20 99 Nasal Cannula 4.0 36 64 20 98 04/15/19 05:22 64 20 97 Facial 30 04/15/19 04:37 173/95 04/15/19 04:00 53 04/15/19 04:00 4.0 04/15/19 04:00 98.5 58 19 173/95 (121) 94 04/15/19 03:45 61 18 99 Nasal Cannula 4.0 36 56 18 95 04/15/19 01:34 63 22 98 Facial 30 04/15/19 00:10 4.0 04/15/19 00:00 98.8 63 19 154/91 (112) 94 04/15/19 00:00 70 04/14/19 23:22 74 16 98 Nasal Cannula 4.0 36 69 16 94 04/14/19 21:00 Nasal Cannula 4.0 04/14/19 20:00 69 12/12/19 20:00 98.6 66 19 134/87 (103) 94 04/14/19 19:27 94 Nasal Cannula 4.0 36 04/14/19 17:12 71 143/83 04/14/19 16:00 64 04/14/19 16:00 98.8 71 20 143/83 (103) 96 04/14/19 16:00 4.0 04/14/19 15:56 75 16 99 Nasal Cannula 4.0 36 67 16 97 04/14/19 12:27 85 170/89 04/14/19 12:00 98.6 93 22 170/89 (116) 96 04/14/19 12:00 93 04/14/19 12:00 4.0 04/14/19 11:36 81 16 99 Nasal Cannula 4.0 36 83 16 98 Intake and Output 04/14/19 04/15/19 19:00 07:00 Intake Total 1200 ml 1000 ml Output Total 3700 ml 3750 ml Balance -2500 ml -2750 ml Intake Oral 1200 ml 1000 ml Output Urine Total 3700 ml 3750 ml # Bowel Movements 1 Height (Feet): 5 Height (Inches): 10.00 Weight (Pounds): 402 Objective GENERAL: Alert, awake, and oriented. LUNGS: Decreased breath sounds bilaterally. HEART: S1 and S2 regular. ABDOMEN: Obese.. EXTREMITIES: No cyanosis. No clubbing. NEURO: No changes. Osito Sultana Apr 15, 2019 11:04
--- NOTE | 2019-04-15 11:16 | NUR ---
RESPIRATORY NOTE: pt refused breathing tx at this time. pt sitting in chair with no signs of resp distress. RN notified
--- NOTE | 2019-04-15 11:38 | Nephrology Progress Note ---
Assessment/Plan Problem List: (1) Hypokalemia (2) CHF (congestive heart failure) (3) Renal failure (4) Obesity, morbid, BMI 50 or higher (5) CO2 retention (6) COPD (chronic obstructive pulmonary disease) Assessment elevated Cr likely due to diuresis Obesity , NATASHA AT fib with FVR HTN Congestive heart failure, likely diastolic dysfunction. EF 60% Recurrent NSVT. No syncope. Hypertension. Morbid obesity. COPD. Lipidemia. Plan high WBCs ? steroids related Cr rising Keep BP in check Monitor lytes B12 and Folic acid Diamox PO per orders per cardio and pulmonary taper steroids as possible Subjective ROS Limited/Unobtainable: No Constitutional: Reports: malaise, weakness Objective Objective Last 24 Hour Vital Signs Date Time Temp Pulse Resp B/P (MAP) Pulse Ox O2 Delivery O2 Flow Rate FiO2 04/15/19 09:00 Nasal Cannula 4.0 04/15/19 08:25 84 146/90 04/15/19 08:25 84 146/90 04/15/19 08:24 84 04/15/19 08:00 4.0 04/15/19 08:00 98.4 81 18 147/90 (109) 96 04/15/19 08:00 81 04/15/19 07:52 98 Nasal Cannula 4.0 36 04/15/19 07:52 67 20 99 Nasal Cannula 4.0 36 64 20 98 04/15/19 05:22 64 20 97 Facial 30 04/15/19 04:37 173/95 04/15/19 04:00 53 04/15/19 04:00 4.0 04/15/19 04:00 98.5 58 19 173/95 (121) 94 04/15/19 03:45 61 18 99 Nasal Cannula 4.0 36 56 18 95 04/15/19 01:34 63 22 98 Facial 30 04/15/19 00:10 4.0 04/15/19 00:00 98.8 63 19 154/91 (112) 94 04/15/19 00:00 70 04/14/19 23:22 74 16 98 Nasal Cannula 4.0 36 69 16 94 04/14/19 21:00 Nasal Cannula 4.0 04/14/19 20:00 69 04/14/19 20:00 98.6 66 19 134/87 (103) 94 04/14/19 19:27 94 Nasal Cannula 4.0 36 04/14/19 17:12 71 143/83 04/14/19 16:00 64 04/14/19 16:00 98.8 71 20 143/83 (103) 96 04/14/19 16:00 4.0 04/14/19 15:56 75 16 99 Nasal Cannula 4.0 36 67 16 97 04/14/19 12:27 85 170/89 04/14/19 12:00 98.6 93 22 170/89 (116) 96 04/14/19 12:00 93 04/14/19 12:00 4.0 Intake and Output 04/14/19 04/15/19 19:00 07:00 Intake Total 1200 ml 1000 ml Output Total 3700 ml 3750 ml Balance -2500 ml -2750 ml Intake Oral 1200 ml 1000 ml Output Urine Total 3700 ml 3750 ml # Bowel Movements 1 Height (Feet): 5 Height (Inches): 10.00 Weight (Pounds): 402 General Appearance: lethargic Cardiovascular: normal rate Respiratory/Chest: decreased breath sounds Abdomen: soft, other - obese Neurologic: other Bebeto Yin MD Apr 15, 2019 11:38
[2019-04-15] MEDS ORDERED: oxyCODONE HCL/Acetaminophen 5/325mg ORAL PRN (11:45)
[2019-04-15 12:00] VITALS: BP 123/98
--- NOTE | 2019-04-15 13:51 | NUR ---
RD ASSESSMENT & RECOMMENDATIONS SEE CARE ACTIVITY FOR COMPLETE ASSESSMENT DAILY ESTIMATED NEEDS: Needs based on Cardiac, Pulmonary, morbid obese; 103kg adj 20-25 kcals/kg 2060- 2575 total kcals 1-1.5 g protein/kg 103- 155 g total protein Fluid per MD- CHF on lasix NUTRITION DIAGNOSIS: Decreased kcal, fat and sodium needs r/t obesity and CHF AEB pt is 248% of [place] Body Weight, morbidly obese per guidelines, elev BNP (1183-> 321), elev LDL (112), edematous, elev BP (123/98). CURRENT DIET:Cardiac PO DIET RECOMMENDATIONS: Cardiac + fluid per MD ADDITIONAL RECOMMENDATIONS: 1) Daily weights; pt w/ CHF, on lasix 2) monitor lytes daily- on lasix 3) monitor BG values- on solumedrol -> rec A1C for eval/ need for CCHO diet -> consider niss for elev BG 4) 1L fluid restriction per MD
--- NOTE | 2019-04-15 14:26 | Cardiac Electrophysiology PN ---
Assessment/Plan Assessment/Plan 1. Congestive heart failure due to diastolic dysfunction. On Lasix 80 mg IV b.i.d. EF 60% 2. Recurrent NSVT. No syncope. Nl EF. Stress test as out patient as couldn't fit in camera. No CP 3. Hypertension. Continue Lasix and Cardizem 4. Atrial fib with RVR. On Cardizem CD 360 daily and Digoxin 0.25 po daily 5. Morbid obesity. 6. COPD. On Solu-Medrol and CPAP 7. Lipidemia. On Lipitor. KIAN RN Subjective Subjective On tele. In and out of atrial fib controlled. No more VT Objective Last 24 Hour Vital Signs Date Time Temp Pulse Resp B/P (MAP) Pulse Ox O2 Delivery O2 Flow Rate FiO2 04/15/19 12:00 97.5 65 19 123/98 (106) 96 04/15/19 09:00 Nasal Cannula 4.0 04/15/19 08:25 84 146/90 04/15/19 08:25 84 146/90 04/15/19 08:24 84 04/15/19 08:00 4.0 04/15/19 08:00 98.4 81 18 147/90 (109) 96 04/15/19 07:52 98 Nasal Cannula 4.0 36 04/15/19 07:52 67 20 99 Nasal Cannula 4.0 36 64 20 98 04/15/19 05:22 64 20 97 Facial 30 04/15/19 04:37 173/95 04/15/19 04:00 53 04/15/19 04:00 4.0 04/15/19 04:00 98.5 58 19 173/95 (121) 94 04/15/19 03:45 61 18 99 Nasal Cannula 4.0 36 56 18 95 04/15/19 01:34 63 22 98 Facial 30 04/15/19 00:10 4.0 04/15/19 00:00 98.8 63 19 154/91 (112) 94 04/15/19 00:00 70 04/14/19 23:22 74 16 98 Nasal Cannula 4.0 36 69 16 94 04/14/19 21:00 Nasal Cannula 4.0 04/14/19 20:00 69 04/14/19 20:00 98.6 66 19 134/87 (103) 94 04/14/19 19:27 94 Nasal Cannula 4.0 36 04/14/19 17:12 71 143/83 04/14/19 16:00 64 04/14/19 16:00 98.8 71 20 143/83 (103) 96 04/14/19 16:00 4.0 04/14/19 15:56 75 16 99 Nasal Cannula 4.0 36 67 16 97 Intake and Output 04/14/19 04/15/19 18:59 06:59 Intake Total 1200 ml 1000 ml Output Total 3700 ml 3750 ml Balance -2500 ml -2750 ml Intake Oral 1200 ml 1000 ml Output Urine Total 3700 ml 3750 ml # Bowel Movements 1 Objective HEENT: No JVD. LUNGS: Coarse rhonchi. CARDIOVASCULAR: Regular S1 and S2 with no gallop or murmur. ABDOMEN: Soft. EXTREMITIES: 3+ pitting edema. Sandor Doll MD Apr 15, 2019 14:26
[2019-04-15 16:06] VITALS: BP 113/63
--- NOTE | 2019-04-15 17:12 | Pulmonology Progress Note ---
Assessment/Plan Assessment/Plan Pulmonary Progress Note HPI The patient is a 48-year-old man with history of obesity and Congestive Heart Failure, admitted with chest pain, shortness of breath, fevera and chills as well as sore throat and ear pain for 3 to 4 days ago. Denies cough or sputum production, vomiting or diarrhea On PO meds for Afib, Less SOB, using BiPAP at night, up in chair Past Medical History: Obesity, Congestive Heart Failure, Chronic Obstructive Pulmonary Disease, Diabetes, Hypertension Allergies: RIVAROXABAN All Other Systems: negative except mentioned in HPI Physical Exam Vital Signs Noted General: Awake and alert, no acute distress HEENT: NC/AT. EOMI. tympanic membranes are erythematous, Pharynx is erythematous , no exudates, moist mm Cardiovascular: RRR. S1 and S2 normal. No murmur appreciated. Mild edema noted Resp: Normal work of breathing. CTAB Abdomen: Abdomen is soft, nondistended. Nontender Skin: Intact. No abrasions, laceration or rash over the exposed skin Extremities: Normal tone and bulk. Moving all extremities. No obvious deformity. Neuro: Awake and alert. Mentating appropriately. Impression: Congestive heart failure Viral Illness Chronic Obstructive Pulmonary Disease No focal Infiltrates Obesity Hypertension Diabetes Hypokalemia Plan - Diuresis PRN - Steroids, wean as tolerated - 30 daily, can be converted to Medrol dose pack on DC - Elevated WCC - HHN - O2 PRN - BiPAP PRN/QHS - ISS - PPX - ROUST[employer] LE[employer]ER Medications - Recheck UA/CXR Laboratory Tests Noted EKG: Sinus rhythm with PACs. No ST segment changes. Normal intervals CXR: no consolidation, other - bilateral pulmonary congestion, questionable effusions. No obvious consolidation Subjective ROS Limited/Unobtainable: No Allergies: Coded Allergies: RIVAROXABAN (Verified Allergy, Unknown, 04/05/19) Objective Last 24 Hour Vital Signs Date Time Temp Pulse Resp B/P (MAP) Pulse Ox O2 Delivery O2 Flow Rate FiO2 04/15/19 17:04 57 113/63 04/15/19 16:06 96.4 57 17 113/63 (80) 94 04/15/19 14:46 61 20 98 Nasal Cannula 3.0 32 64 20 96 04/15/19 12:00 97.5 65 19 123/98 (106) 96 12/13/19 12:00 4.0 04/15/19 09:00 Nasal Cannula 4.0 04/15/19 08:25 84 146/90 04/15/19 08:25 84 146/90 04/15/19 08:24 84 04/15/19 08:00 4.0 04/15/19 08:00 98.4 81 18 147/90 (109) 96 04/15/19 07:52 98 Nasal Cannula 4.0 36 04/15/19 07:52 67 20 99 Nasal Cannula 4.0 36 64 20 98 04/15/19 05:22 64 20 97 Facial 30 04/15/19 04:37 173/95 04/15/19 04:00 53 04/15/19 04:00 4.0 04/15/19 04:00 98.5 58 19 173/95 (121) 94 04/15/19 03:45 61 18 99 Nasal Cannula 4.0 36 56 18 95 04/15/19 01:34 63 22 98 Facial 30 04/15/19 00:10 4.0 04/15/19 00:00 98.8 63 19 154/91 (112) 94 04/15/19 00:00 70 04/14/19 23:22 74 16 98 Nasal Cannula 4.0 36 69 16 94 04/14/19 21:00 Nasal Cannula 4.0 04/14/19 20:00 69 04/14/19 20:00 98.6 66 19 134/87 (103) 94 04/14/19 19:27 94 Nasal Cannula 4.0 36 04/14/19 17:12 71 143/83 Intake and Output 04/14/19 04/15/19 18:59 06:59 Intake Total 1200 ml 1000 ml Output Total 3700 ml 3750 ml Balance -2500 ml -2750 ml Intake Oral 1200 ml 1000 ml Output Urine Total 3700 ml 3750 ml # Bowel Movements 1 Current Medications Medications (Trade) Dose Ordered Sig/David Route PRN Reason Start Time Stop Time Status Last Admin Dose Admin Acetaminophen (Tylenol) 650 mg Q6H PRN ORAL Mild Pain/Temp > 100.5 04/12/19 12:30 05/08/19 18:27 Acetazolamide (Diamox) 250 mg DAILY ORAL 04/13/19 09:00 05/10/19 11:59 04/15/19 08:23 Albuterol/ Ipratropium (Albuterol/ Ipratropium) 3 ml Q4HRT HHN 04/12/19 15:00 04/16/19 02:59 04/15/19 14:46 Apixaban (Eliquis) 5 mg BID ORAL 04/12/19 18:00 05/11/19 17:59 04/15/19 17:03 Aspirin (ASA) 81 mg DAILY ORAL 04/13/19 09:00 05/06/19 08:59 04/15/19 08:25 Atorvastatin Calcium (Lipitor) 40 mg BEDTIME ORAL 04/12/19 21:00 05/06/19 20:59 04/14/19 21:37 Clonidine HCl (Catapres Tab) 0.1 mg Q4H PRN ORAL bp over 165 syst 04/12/19 11:45 05/08/19 11:44 04/15/19 04:37 Digoxin (Lanoxin) 0.25 mg DAILY ORAL 04/13/19 09:00 05/11/19 08:59 04/15/19 08:24 Diltiazem HCl (Cardizem CD) 360 mg DAILY ORAL 04/14/19 09:00 05/14/19 08:59 04/15/19 08:25 Docusate Sodium (Colace) 100 mg THREE TIMES A DAY ORAL 04/12/19 13:00 05/09/19 08:59 04/15/19 17:03 Folic Acid (Folate) 1 mg DAILY ORAL 04/13/19 09:00 05/10/19 10:59 04/15/19 08:25 Furosemide (Lasix) 80 mg Q12HR@0600,1800 IV 04/12/19 18:00 05/08/19 17:59 04/15/19 05:46 Gabapentin (Neurontin) 600 mg BID ORAL 04/12/19 18:00 05/06/19 17:59 04/15/19 17:03 Guaifenesin/ Dextromethorphan (Robitussin DM Syrup) 5 ml Q4H PRN ORAL For Cough 04/12/19 11:30 05/10/19 19:29 04/15/19 08:22 Methylprednisolone Sodium Succinate (Solu-MEDROL) 40 mg Q24HRS IVP 04/15/19 21:00 05/06/19 05:59 Metoprolol Tartrate (Lopressor) 25 mg BID ORAL 04/14/19 11:30 05/14/19 11:29 04/15/19 08:25 Morphine Sulfate (Morphine Sulfate) 1 mg Q6H PRN IVP Breakthrough Pain 04/15/19 11:45 04/18/19 11:44 Ondansetron HCl (Zofran) 4 mg Q6H PRN IVP Nausea & Vomiting 04/12/19 11:45 05/08/19 11:44 Oxycodone/ Acetaminophen (Percocet 5-325) 1 tab Q4H PRN ORAL Severe Pain (Pain Scale 7-10) 04/15/19 11:45 04/18/19 11:44 Pantoprazole (Protonix) 40 mg EVERY 12 HOURS ORAL 04/12/19 21:00 05/09/19 08:59 04/15/19 08:25 Potassium Chloride (K-Dur) 40 meq BID ORAL 04/12/19 18:00 05/06/19 08:59 04/15/19 17:04 Mahesh Wise MD Apr 15, 2019 17:12
--- NOTE | 2019-04-15 18:51 | NUR ---
NURSE NOTES: sent urine sample to the lab d/t/initial
--- NOTE | 2019-04-15 19:17 | NUR ---
HAND-OFF: Report given to Laura.
[2019-04-15 19:35] LABS: APPEARANCE,URINE CLEAR; BILIRUBIN, URINE NEGATIVE (NEGATIVE); COLOR,URINE PALE YELLOW; GLUCOSE, URINE (UA) NEGATIVE (NEGATIVE); KETONES,URINE NEGATIVE (NEGATIVE); LEUKOCYTE ESTERASE ,URINE NEGATIVE (NEGATIVE); NITRITE,URINE NEGATIVE (NEGATIVE); PH,URINE 5 (4.5-8.0); PROTEIN,URINE NEGATIVE (NEGATIVE); UROBILINOGEN,URINE NORMAL MG/DL (0.0-1.0)
--- NOTE | 2019-04-15 19:44 | NUR ---
NURSE NOTES: RECEIVED PATIENT SITTING AT BEDSIDE, AWAKE, ALERT/ORIENTED X4, VERBALLY RESPONSIVE, REVIEWED PLAN OF CARE WITH PATIENT, FLUID RESTRICTION 1L/NON COMPLIANT, MD AWARE. NO SIGNS AND SYMPTOMS OF ACUTE CARDIO RESPIRATORY DISTRESS/SHORTNESS OF BREATH, DENIES CHEST PAIN,. HYPOKALEMIA RESOLVED/POTASSIUM 4/0. ABDOMEN OBESE/SOFT/NON TENDER/AUDIBLE BOWEL SOUNDS, NOTED WITH FREQUENT FORMED BOWEL MOVEMENT, DENIES DIARRHEA. ENCOURAGED PATIENT TO UTILIZE CALL LIGHT FOR ASSISTANCE, VERBALIZED UNDERSTANDING. HOURLY ROUNDING FOR NEEDS/SAFETY. NAD.
[2019-04-15 20:00] VITALS: BP 122/87
--- NOTE | 2019-04-15 20:00 | NUR ---
NURSE NOTES: SINUS RHYTHM ON FIRE INSPECTOR-
[2019-04-15] MEDS ORDERED: Solu-MEDROL 40mg Inj IVP SCH (21:00)
[2019-04-15] MEDS: Atorvastatin 20mg tab ORAL SCH (21:03)
--- NOTE | 2019-04-15 21:41 | General Progress Note ---
Assessment/Plan Problem List: (1) Hypokalemia ICD Codes: E87.6 - Hypokalemia SNOMED: 32700787 (2) CHF (congestive heart failure) ICD Codes: I50.9 - Heart failure, unspecified SNOMED: 86891777 (3) Lower back pain ICD Codes: M54.5 - Low back pain SNOMED: 359148999 Assessment/Plan: resp insuff sleep apnea lethargic at time pleural effusion chf edema not much improved needs fluid removal Subjective Respiratory: Reports: shortness of breath Allergies: Coded Allergies: RIVAROXABAN (Verified Allergy, Unknown, 04/05/19) Objective Last 24 Hour Vital Signs Date Time Temp Pulse Resp B/P (MAP) Pulse Ox O2 Delivery O2 Flow Rate FiO2 04/15/19 20:00 4.0 04/15/19 20:00 98.2 96 18 122/87 (99) 96 04/15/19 18:59 96 Nasal Cannula 4.0 36 04/15/19 18:59 84 20 98 Nasal Cannula 4.0 36 80 20 96 04/15/19 18:22 96.4 04/15/19 17:04 57 113/63 04/15/19 16:06 96.4 57 17 113/63 (80) 94 04/15/19 16:00 102 04/15/19 16:00 4.0 04/15/19 14:46 61 20 98 Nasal Cannula 3.0 32 64 20 96 04/15/19 12:00 97.5 65 19 123/98 (106) 96 04/15/19 12:00 4.0 04/15/19 09:00 Nasal Cannula 4.0 04/15/19 08:25 84 146/90 04/15/19 08:25 84 146/90 04/15/19 08:24 84 04/15/19 08:00 4.0 04/15/19 08:00 98.4 81 18 147/90 (109) 96 04/15/19 07:52 98 Nasal Cannula 4.0 36 04/15/19 07:52 67 20 99 Nasal Cannula 4.0 36 64 20 98 04/15/19 05:22 64 20 97 Facial 30 04/15/19 04:37 173/95 04/15/19 04:00 53 04/15/19 04:00 4.0 04/15/19 04:00 98.5 58 19 173/95 (121) 94 04/15/19 03:45 61 18 99 Nasal Cannula 4.0 36 56 18 95 04/15/19 01:34 63 22 98 Facial 30 04/15/19 00:10 4.0 04/15/19 00:00 98.8 63 19 154/91 (112) 94 04/15/19 00:00 70 04/14/19 23:22 74 16 98 Nasal Cannula 4.0 36 69 16 94 Intake and Output 04/14/19 04/15/19 19:00 07:00 Intake Total 1200 ml 1000 ml Output Total 3700 ml 3750 ml Balance -2500 ml -2750 ml Intake Oral 1200 ml 1000 ml Output Urine Total 3700 ml 3750 ml # Bowel Movements 1 Laboratory Tests 04/15/19 18:43: Urine Color Pale yellow, Urine Appearance Clear, Urine pH 5, Urine Specific [place] 1.010, Urine Protein Negative, Urine Glucose (UA) Negative, Urine Ketones Negative, Urine Blood Negative, Urine Nitrite Negative, Urine Bilirubin Negative, Urine Urobilinogen Normal, Urine Leukocyte Esterase Negative, Urine RBC 0-2H, Urine WBC 0, Urine Squamous Epithelial Cells None, Urine Bacteria None Height (Feet): 5 Height (Inches): 10.00 Weight (Pounds): 402 Cardiovascular: regular rhythm Respiratory/Chest: rhonchi - bilaterally Brodie De Jesus MD Apr 15, 2019 21:41
[2019-04-16] VITALS: BP 124/72
[2019-04-16] MEDS: Morphine Sulfate 2mg/ml Inj(IV/IM USE ONLY) IVP PRN ×4 (01:32→21:57)
--- NOTE | 2019-04-16 03:29 | NUR ---
NURSE NOTES: PATIENT ON BIPAP, SETTINGS 15/6, TOLERATING WELL.
--- NOTE | 2019-04-16 06:01 | NUR ---
NURSE NOTES: RESTED WELL, NO SIGNIFICANT CHANGE OF CONDITION NOTED THROUGHOUT THE NIGHT. SAFETY MAINTAINED. NAD.
--- NOTE | 2019-04-16 07:00 | NUR ---
HAND-OFF: Report given to KEESHA MCGUIRE.
--- NOTE | 2019-04-16 08:01 | NUR ---
NURSE NOTES: pt is sitting in bed having breakfast. Pt is on sdet no signs of cardiac or respiratory distress at this time. Bed in lowest position and locked. Call light within reach. Will continue to monitor pt and lab values. Pt is on NC 4L.
[2019-04-16] MEDS: Docusate 100mg cap ORAL SCH ×3 (08:44→18:06)
[2019-04-16] MEDS: Aspirin Baby 81mg ORAL SCH (08:44)
[2019-04-16] MEDS: Eliquis 5mg tablet ORAL SCH ×2 (08:45→18:06)
[2019-04-16 08:49] VITALS: BP 124/71
[2019-04-16] MEDS: dilTIAZem HCl CD 180mg cap ORAL SCH (08:50)
--- NOTE | 2019-04-16 10:20 | Diagnostic Imaging Report ---
EXAM: XR Chest, 1 View CLINICAL HISTORY: SOB TECHNIQUE: Frontal view of the chest. COMPARISON: Chest radiograph on 04/05/2019 FINDINGS: Hardware: None. Lungs/pleura: Low lung volumes. Persistent hazy opacities in right greater than left lungs. Probable small bilateral pleural effusions. Heart/mediastinum: Stable enlargement of the cardiac silhouette. Soft tissues: Unremarkable. Bones: No acute fracture. Upper abdomen: Normal. IMPRESSION: Low lung volumes with persistent hazy opacities in right greater than left lungs which may represent pulmonary edema versus infectious/inflammatory process.
[2019-04-16] MEDS: Guaifenesin/DM 10ml syrup ORAL PRN (11:49)
[2019-04-16 12:00] VITALS: BP 130/70
--- NOTE | 2019-04-16 12:13 | Nephrology Progress Note ---
Assessment/Plan Problem List: (1) Hypokalemia (2) CHF (congestive heart failure) (3) Renal failure (4) Obesity, morbid, BMI 50 or higher (5) CO2 retention (6) COPD (chronic obstructive pulmonary disease) Assessment elevated Cr likely due to diuresis Obesity , NATASHA AT fib with FVR HTN Congestive heart failure, likely diastolic dysfunction. EF 60% Recurrent NSVT. No syncope. Hypertension. Morbid obesity. COPD. Lipidemia. Plan no new labs high WBCs ? steroids related Cr rising Keep BP in check Monitor lytes B12 and Folic acid Diamox PO per orders per cardio and pulmonary taper steroids as possible Subjective ROS Limited/Unobtainable: No Constitutional: Reports: malaise Objective Objective Last 24 Hour Vital Signs Date Time Temp Pulse Resp B/P (MAP) Pulse Ox O2 Delivery O2 Flow Rate FiO2 04/16/19 08:51 89 124/71 04/16/19 08:51 89 04/16/19 08:50 89 124/71 04/16/19 08:49 98.1 89 20 124/71 (88) 94 04/16/19 08:00 84 04/16/19 07:18 95 Nasal Cannula 4.0 36 04/16/19 04:00 4.0 30 04/16/19 04:00 78 04/16/19 04:00 78 04/16/19 03:29 66 20 98 Facial 30 04/16/19 03:14 78 20 97 Nasal Cannula 4.0 36 04/16/19 02:02 97.9 04/16/19 00:00 4.0 04/16/19 00:00 83 04/16/19 00:00 97.9 83 18 124/72 (89) 94 04/15/19 22:37 74 18 97 Nasal Cannula 4.0 36 72 18 95 04/15/19 21:00 Nasal Cannula 4.0 04/15/19 20:00 4.0 04/15/19 20:00 100 04/15/19 20:00 98.2 100 18 122/87 (99) 96 04/15/19 18:59 96 Nasal Cannula 4.0 36 04/15/19 18:59 84 20 98 Nasal Cannula 4.0 36 80 20 96 04/15/19 17:04 57 113/63 04/15/19 16:06 96.4 57 17 113/63 (80) 94 04/15/19 16:00 102 04/15/19 16:00 4.0 04/15/19 14:46 61 20 98 Nasal Cannula 3.0 32 64 20 96 Intake and Output 04/15/19 04/16/19 19:00 07:00 Intake Total 1000 ml 780 ml Output Total 1000 ml 1400 ml Balance 0 ml -620 ml Intake Oral 1000 ml 780 ml Output Urine Total 1000 ml 1400 ml # Bowel Movements 1 1 Laboratory Tests 04/15/19 18:43: Urine Color Pale yellow, Urine Appearance Clear, Urine pH 5, Urine Specific [place] 1.010, Urine Protein Negative, Urine Glucose (UA) Negative, Urine Ketones Negative, Urine Blood Negative, Urine Nitrite Negative, Urine Bilirubin Negative, Urine Urobilinogen Normal, Urine Leukocyte Esterase Negative, Urine RBC 0-2H, Urine WBC 0, Urine Squamous Epithelial Cells None, Urine Bacteria None Height (Feet): 5 Height (Inches): 10.00 Weight (Pounds): 402 General Appearance: no apparent distress Cardiovascular: normal rate Respiratory/Chest: decreased breath sounds Abdomen: distended Bebeto Yin MD Apr 16, 2019 12:13
--- NOTE | 2019-04-16 13:29 | NUR ---
CASE MANAGEMENT:REVIEW 04/16/19 SI: CHF. COPD . LOW BACK PAIN T 98.1 HR 89 RR 20 B/P 124/71 SATS 94% ON 4L/NC NO LABS TODAY IS: IV SOLU MEDROL BID IV LASIX BID K-DUR PO BID CARDIZEM PO QD CLONIDINE Q4/PRN DIGOXIN PO QD LOPRESSOR PO BID DIAMOX PO QD PROTONIX PO Q12 ELIQUIS PO BID DUONEB HHN Q4HRS ROBITUSSIN PO Q4/PRN FOLATE PO QD LIPITOR PO QHS ASA PO QD NEURONTIN PO BID : TELEMETRY STATUS DCP: FROM HOME PLAN: CONTROLLED RAPID A FIB - EPISODE OF AFIB HR 140'S CONTROL BP
--- NOTE | 2019-04-16 15:03 | Pulmonology Progress Note ---
Assessment/Plan Assessment/Plan Pulmonary Progress Note HPI The patient is a 48-year-old man with history of obesity and Congestive Heart Failure, admitted with chest pain, shortness of breath, fevers and chills as well as sore throat and ear pain for 3 to 4 days ago. Denies cough or sputum production, vomiting or diarrhea On PO meds for Afib, Less SOB, using BiPAP at night, up in chair Past Medical History: Obesity, Congestive Heart Failure, Chronic Obstructive Pulmonary Disease, Diabetes, Hypertension Allergies: RIVAROXABAN All Other Systems: negative except mentioned in HPI Physical Exam Vital Signs Noted General: Awake and alert, no acute distress HEENT: NC/AT. EOMI. tympanic membranes are erythematous, moist mm Cardiovascular: RRR. S1 and S2 normal. No murmur appreciated. Mild edema noted Resp: Normal work of breathing. CTAB Abdomen: Abdomen is soft, nondistended. Nontender Skin: Intact. No abrasions, laceration or rash over the exposed skin Extremities: Normal tone and bulk. Moving all extremities. No obvious deformity. Neuro: Awake and alert. Mentating appropriately. Impression: Congestive heart failure Viral Illness Chronic Obstructive Pulmonary Disease No focal Infiltrates Obesity Hypertension Diabetes Hypokalemia Plan - Diuresis PRN - Steroids, wean as tolerated - 30 daily, can be converted to Medrol dose pack on DC - Elevated WCC, antibiotics for possible pneumonia - HHN - O2 PRN - BiPAP PRN/QHS - ISS - PPX - ENDOCRINOLOGY NURSE Medications - Recheck UA/CXR Laboratory Tests Noted EKG: Sinus rhythm with PACs. No ST segment changes. Normal intervals CXR: Low lung volumes with persistent hazy opacities in right greater than left lungs which may represent pulmonary edema versus infectious/inflammatory process. Subjective ROS Limited/Unobtainable: No Allergies: Coded Allergies: RIVAROXABAN (Verified Allergy, Unknown, 04/05/19) Objective Last 24 Hour Vital Signs Date Time Temp Pulse Resp B/P (MAP) Pulse Ox O2 Delivery O2 Flow Rate FiO2 04/16/19 12:00 4.0 04/16/19 09:00 Nasal Cannula 4.0 04/16/19 08:51 89 124/71 04/16/19 08:51 89 04/16/19 08:50 89 124/71 04/16/19 08:49 98.1 89 20 124/71 (88) 94 04/16/19 08:00 4.0 04/16/19 08:00 84 04/16/19 07:18 95 Nasal Cannula 4.0 36 04/16/19 04:00 4.0 30 04/16/19 04:00 78 04/16/19 04:00 78 04/16/19 03:29 66 20 98 Facial 30 04/16/19 03:14 78 20 97 Nasal Cannula 4.0 36 04/16/19 02:02 97.9 04/16/19 00:00 4.0 04/16/19 00:00 83 04/16/19 00:00 97.9 83 18 124/72 (89) 94 04/15/19 22:37 74 18 97 Nasal Cannula 4.0 36 72 18 95 04/15/19 21:00 Nasal Cannula 4.0 04/15/19 20:00 4.0 04/15/19 20:00 100 04/15/19 20:00 98.2 100 18 122/87 (99) 96 04/15/19 18:59 96 Nasal Cannula 4.0 36 04/15/19 18:59 84 20 98 Nasal Cannula 4.0 36 80 20 96 04/15/19 17:04 57 113/63 04/15/19 16:06 96.4 57 17 113/63 (80) 94 04/15/19 16:00 102 04/15/19 16:00 4.0 Intake and Output 04/15/19 04/16/19 19:00 07:00 Intake Total 1000 ml 780 ml Output Total 1000 ml 1400 ml Balance 0 ml -620 ml Intake Oral 1000 ml 780 ml Output Urine Total 1000 ml 1400 ml # Bowel Movements 1 1 Microbiology Date/Time Source Procedure Growth Status 04/15/19 18:43 Urine,Clean Catch Urine Culture - Preliminary NO GROWTH Resulted Laboratory Tests 04/15/19 18:43: Urine Color Pale yellow, Urine Appearance Clear, Urine pH 5, Urine Specific [place] 1.010, Urine Protein Negative, Urine Glucose (UA) Negative, Urine Ketones Negative, Urine Blood Negative, Urine Nitrite Negative, Urine Bilirubin Negative, Urine Urobilinogen Normal, Urine Leukocyte Esterase Negative, Urine RBC 0-2H, Urine WBC 0, Urine Squamous Epithelial Cells None, Urine Bacteria None Current Medications Medications (Trade) Dose Ordered Sig/David Route PRN Reason Start Time Stop Time Status Last Admin Dose Admin Acetaminophen (Tylenol) 650 mg Q6H PRN ORAL Mild Pain/Temp > 100.5 04/12/19 12:30 05/08/19 18:27 Acetazolamide (Diamox) 250 mg DAILY ORAL 04/13/19 09:00 05/10/19 11:59 04/16/19 08:44 Apixaban (Eliquis) 5 mg BID ORAL 04/12/19 18:00 05/11/19 17:59 04/16/19 08:45 Aspirin (ASA) 81 mg DAILY ORAL 04/13/19 09:00 05/06/19 08:59 04/16/19 08:44 Atorvastatin Calcium (Lipitor) 40 mg BEDTIME ORAL 04/12/19 21:00 05/06/19 20:59 04/15/19 21:03 Clonidine HCl (Catapres Tab) 0.1 mg Q4H PRN ORAL bp over 165 syst 04/12/19 11:45 05/08/19 11:44 04/15/19 04:37 Digoxin (Lanoxin) 0.25 mg DAILY ORAL 04/13/19 09:00 05/11/19 08:59 04/16/19 08:51 Diltiazem HCl (Cardizem CD) 360 mg DAILY ORAL 04/14/19 09:00 05/14/19 08:59 04/16/19 08:50 Docusate Sodium (Colace) 100 mg THREE TIMES A DAY ORAL 04/12/19 13:00 05/09/19 08:59 04/16/19 08:44 Folic Acid (Folate) 1 mg DAILY ORAL 04/13/19 09:00 05/10/19 10:59 04/16/19 08:45 Furosemide (Lasix) 80 mg Q12HR@0600,1800 IV 04/12/19 18:00 05/08/19 17:59 04/16/19 05:41 Gabapentin (Neurontin) 600 mg BID ORAL 04/12/19 18:00 05/06/19 17:59 04/16/19 08:45 Guaifenesin/ Dextromethorphan (Robitussin DM Syrup) 5 ml Q4H PRN ORAL For Cough 04/12/19 11:30 05/10/19 19:29 04/16/19 11:49 Metoprolol Tartrate (Lopressor) 25 mg BID ORAL 04/14/19 11:30 05/14/19 11:29 04/16/19 08:51 Morphine Sulfate (Morphine Sulfate) 1 mg Q6H PRN IVP Breakthrough Pain 04/15/19 11:45 04/18/19 11:44 04/16/19 08:42 Ondansetron HCl (Zofran) 4 mg Q6H PRN IVP Nausea & Vomiting 04/12/19 11:45 05/08/19 11:44 Oxycodone/ Acetaminophen (Percocet 5-325) 1 tab Q4H PRN ORAL Severe Pain (Pain Scale 7-10) 04/15/19 11:45 04/18/19 11:44 Pantoprazole (Protonix) 40 mg EVERY 12 HOURS ORAL 04/12/19 21:00 05/09/19 08:59 04/16/19 08:45 Potassium Chloride (K-Dur) 40 meq BID ORAL 04/12/19 18:00 05/06/19 08:59 04/16/19 08:43 Prednisone (predniSONE) 30 mg DAILY ORAL 04/16/19 09:00 05/16/19 08:59 04/16/19 08:45 Mahesh Wise MD Apr 16, 2019 15:03
[2019-04-16 16:00] VITALS: BP 128/97
--- NOTE | 2019-04-16 16:51 | Cardiology Progress Note ---
Assessment/Plan Assessment/Plan 1. Acute HFnl EF, continue lasix. 2. Recurrent NSVT. No syncope. Nl EF. Stress test as out patient as couldn't fit in camera. No chest pain at this time. 3. Hypertension. Continue Lasix and Cardizem 4. Paroxysmal atrial fib with RVR, now in SR. On Cardizem, metoprolol and Digoxin. Subjective Subjective Sinsus rhythm at rate of 89. Objective Last 24 Hour Vital Signs Date Time Temp Pulse Resp B/P (MAP) Pulse Ox O2 Delivery O2 Flow Rate FiO2 04/16/19 12:00 4.0 04/16/19 09:00 Nasal Cannula 4.0 04/16/19 08:51 89 124/71 04/16/19 08:51 89 04/16/19 08:50 89 124/71 04/16/19 08:49 98.1 89 20 124/71 (88) 94 04/16/19 08:00 4.0 04/16/19 08:00 84 04/16/19 07:18 95 Nasal Cannula 4.0 36 04/16/19 04:00 4.0 30 04/16/19 04:00 78 04/16/19 04:00 78 04/16/19 03:29 66 20 98 Facial 30 04/16/19 03:14 78 20 97 Nasal Cannula 4.0 36 04/16/19 02:02 97.9 04/16/19 00:00 4.0 04/16/19 00:00 83 04/16/19 00:00 97.9 83 18 124/72 (89) 94 04/15/19 22:37 74 18 97 Nasal Cannula 4.0 36 72 18 95 04/15/19 21:00 Nasal Cannula 4.0 04/15/19 20:00 4.0 04/15/19 20:00 100 04/15/19 20:00 98.2 100 18 122/87 (99) 96 04/15/19 18:59 96 Nasal Cannula 4.0 36 04/15/19 18:59 84 20 98 Nasal Cannula 4.0 36 80 20 96 04/15/19 17:04 57 113/63 Intake and Output 04/15/19 04/16/19 19:00 07:00 Intake Total 1000 ml 780 ml Output Total 1000 ml 1400 ml Balance 0 ml -620 ml Intake Oral 1000 ml 780 ml Output Urine Total 1000 ml 1400 ml # Bowel Movements 1 1 2D Echo: LVEF 65%, Mild TX/MR, RVSP 15 mmHg Laboratory Tests Test 04/15/19 18:43 Urine Color Pale yellow Urine Appearance Clear Urine pH 5 (4.5-8.0) Urine Specific [place] 1.010 (1.005-1.035) Urine Protein Negative (NEGATIVE) Urine Glucose (UA) Negative (NEGATIVE) Urine Ketones Negative (NEGATIVE) Urine Blood Negative (NEGATIVE) Urine Nitrite Negative (NEGATIVE) Urine Bilirubin Negative (NEGATIVE) Urine Urobilinogen Normal MG/DL (0.0-1.0) Urine Leukocyte Esterase Negative (NEGATIVE) Urine RBC 0-2 /HPF (0 - 0) H Urine WBC 0 /HPF (0 - 0) Urine Squamous Epithelial Cells None /LPF (NONE/OCC) Urine Bacteria None /HPF (NONE) Microbiology Date/Time Source Procedure Growth Status 04/15/19 18:43 Urine,Clean Catch Urine Culture - Preliminary NO GROWTH Resulted Objective HEENT: No JVD. LUNGS: Coarse rhonchi. CARDIOVASCULAR: Regular S1 and S2 with no gallop or murmur. ABDOMEN: Soft, NT/ND, + BS. EXTREMITIES: 3+ pitting edema. Sandor Lawrence MD Apr 16, 2019 16:51
[2019-04-16 20:00] VITALS: BP 130/87
--- NOTE | 2019-04-16 20:15 | NUR ---
HAND-OFF: Report given to Hipolito/KEESHA.
--- NOTE | 2019-04-16 20:16 | NUR ---
NURSE NOTES: Got report from Ophelia THAO. Pt in stable condition. Denies any pain. No s/s of distress or discomfort noted. Pt resting in bed comfortably. Bed in low and locked position, call light within reach, bedside table within reach. Continue to monitor.
--- NOTE | 2019-04-16 21:02 | General Progress Note ---
Assessment/Plan Problem List: (1) Hypokalemia ICD Codes: E87.6 - Hypokalemia SNOMED: 94916787 (2) CHF (congestive heart failure) ICD Codes: I50.9 - Heart failure, unspecified SNOMED: 70567669 (3) Lower back pain ICD Codes: M54.5 - Low back pain SNOMED: 097388142 Status: deteriorating Assessment/Plan: worsening wbc.consulted dr angie sal elevated co2 azotemia is stable sleep apnea lethargic at time pleural effusion chf Subjective Respiratory: Reports: shortness of breath Allergies: Coded Allergies: RIVAROXABAN (Verified Allergy, Unknown, 04/05/19) Objective Last 24 Hour Vital Signs Date Time Temp Pulse Resp B/P (MAP) Pulse Ox O2 Delivery O2 Flow Rate FiO2 04/16/19 20:10 96 Nasal Cannula 4.0 36 04/16/19 18:06 74 128/97 04/16/19 16:00 97.2 74 18 128/97 (107) 95 04/16/19 16:00 63 04/16/19 16:00 4.0 04/16/19 12:00 72 04/16/19 12:00 4.0 04/16/19 12:00 97.9 90 20 130/70 (90) 95 04/16/19 09:00 Nasal Cannula 4.0 04/16/19 08:51 89 124/71 04/16/19 08:51 89 04/16/19 08:50 89 124/71 04/16/19 08:49 98.1 89 20 124/71 (88) 94 04/16/19 08:00 4.0 04/16/19 08:00 84 04/16/19 07:18 95 Nasal Cannula 4.0 36 04/16/19 04:00 4.0 30 04/16/19 04:00 78 04/16/19 04:00 78 04/16/19 03:29 66 20 98 Facial 30 04/16/19 03:14 78 20 97 Nasal Cannula 4.0 36 04/16/19 02:02 97.9 04/16/19 00:00 4.0 04/16/19 00:00 83 04/16/19 00:00 97.9 83 18 124/72 (89) 94 04/15/19 22:37 74 18 97 Nasal Cannula 4.0 36 72 18 95 04/15/19 21:00 Nasal Cannula 4.0 Intake and Output 04/15/19 04/16/19 18:59 06:59 Intake Total 1000 ml 780 ml Output Total 1000 ml 1400 ml Balance 0 ml -620 ml Intake Oral 1000 ml 780 ml Output Urine Total 1000 ml 1400 ml # Bowel Movements 1 1 Height (Feet): 5 Height (Inches): 10.00 Weight (Pounds): 402 Respiratory/Chest: lungs clear Abdomen: soft Brodie De Jesus MD Apr 16, 2019 21:02
[2019-04-16] MEDS: Doxycycline Monohydrate 100mg ORAL SCH (21:57)
[2019-04-16] MEDS: Atorvastatin 20mg tab ORAL SCH (21:57)
[2019-04-16] MEDS: Piperacillin/Tazobactam 3.375 GM in NS 110 ML IVPB SCH (22:14)
[2019-04-17] VITALS: BP 124/78
[2019-04-17 04:00] VITALS: BP 138/77
[2019-04-17] MEDS: Morphine Sulfate 2mg/ml Inj(IV/IM USE ONLY) IVP PRN ×3 (04:57→20:47)
[2019-04-17] MEDS: Piperacillin/Tazobactam 3.375 GM in NS 110 ML IVPB SCH ×3 (05:53→21:18)
--- NOTE | 2019-04-17 07:40 | NUR ---
HAND-OFF: Report given to Ophelia THAO.
[2019-04-17 08:10] VITALS: BP 153/85
--- NOTE | 2019-04-17 08:26 | NUR ---
NURSE NOTES: pt is awake having breakfast sitting at the edge of the bed. Pt on cardiac cath lab radiology technologist no signs of cardiac or respiratory distress. Call light is within reach. Bed is locked and in lowest position . Pt is on NC 4L. Will continue to monitor pt and lab values.
--- NOTE | 2019-04-17 08:29 | NUR ---
NURSE NOTES: continuously remind pt about being on a 1L/day fluid intake. He gets upset and will ask other nursing for water and juice. will continue teaching and reinforce information and water limitation as much as possible.
[2019-04-17] MEDS: Eliquis 5mg tablet ORAL SCH ×2 (09:32→19:05)
[2019-04-17] MEDS: Docusate 100mg cap ORAL SCH ×3 (09:32→19:05)
[2019-04-17] MEDS: Aspirin Baby 81mg ORAL SCH (09:32)
[2019-04-17] MEDS: Doxycycline Monohydrate 100mg ORAL SCH ×2 (09:33→21:05)
[2019-04-17] MEDS: dilTIAZem HCl CD 180mg cap ORAL SCH (09:36)
--- NOTE | 2019-04-17 09:37 | Nephrology Progress Note ---
Assessment/Plan Problem List: (1) Hypokalemia (2) CHF (congestive heart failure) (3) Renal failure (4) Obesity, morbid, BMI 50 or higher (5) CO2 retention (6) COPD (chronic obstructive pulmonary disease) Assessment elevated Cr likely due to diuresis Obesity , NATASHA AT fib with FVR HTN Congestive heart failure, likely diastolic dysfunction. EF 60% Recurrent NSVT. No syncope. Hypertension. Morbid obesity. COPD. Lipidemia. Plan no new labs high WBCs ? steroids related Cr rising Keep BP in check Monitor lytes B12 and Folic acid Diamox PO per orders per cardio and pulmonary taper steroids as possible Subjective ROS Limited/Unobtainable: No Constitutional: Reports: malaise, weakness Objective Objective Last 24 Hour Vital Signs Date Time Temp Pulse Resp B/P (MAP) Pulse Ox O2 Delivery O2 Flow Rate FiO2 04/17/19 08:10 98.1 70 20 153/85 (107) 98 04/17/19 05:27 98.0 04/17/19 04:00 97.8 65 18 138/77 (97) 96 04/17/19 04:00 4.0 04/17/19 04:00 65 04/17/19 00:12 67 18 97 Facial 30 04/17/19 00:00 65 04/17/19 00:00 4.0 04/17/19 00:00 98.0 79 18 124/78 (93) 98 04/16/19 21:00 Nasal Cannula 4.0 04/16/19 20:10 96 Nasal Cannula 4.0 36 04/16/19 20:00 97.9 86 18 130/87 (101) 97 04/16/19 20:00 77 04/16/19 20:00 4.0 04/16/19 18:06 74 128/97 04/16/19 16:00 97.2 74 18 128/97 (107) 95 04/16/19 16:00 63 04/16/19 16:00 4.0 04/16/19 12:00 72 04/16/19 12:00 4.0 04/16/19 12:00 97.9 90 20 130/70 (90) 95 Intake and Output 04/16/19 04/17/19 19:00 07:00 Intake Total 1000 ml Output Total 2500 ml Balance 1000 ml -2500 ml Intake Oral 1000 ml Output Urine Total 2500 ml # Voids 8 # Bowel Movements 2 2 Height (Feet): 5 Height (Inches): 10.00 Weight (Pounds): 402 General Appearance: no apparent distress Cardiovascular: tachycardia Respiratory/Chest: decreased breath sounds Abdomen: distended Objective no change Bebeto Yin MD Apr 17, 2019 09:37
[2019-04-17 10:37] LABS: HEMATOCRIT 47.8 % (42.0-52.0); HEMOGLOBIN 14.9 G/DL (14.2-18.0); MEAN CORPUSCULAR VOLUME 80 FL (80-99); PLATELET COUNT 196 K/UL (150-450); RED BLOOD COUNT 6.01 M/UL (4.70-6.10); RED CELL DISTRIBUTION WIDTH 16.4 % (11.6-14.8); WHITE BLOOD COUNT 21.1 K/UL (4.8-10.8)
[2019-04-17 11:00] LABS: ALANINE AMINOTRANSFERASE 34 U/L (12-78); ALBUMIN 3.1 G/DL (3.4-5.0); ALBUMIN/GLOBULIN RATIO 1.1 (1.0-2.7); ALKALINE PHOSPHATASE 54 U/L (46-116); ANION GAP 6 mmol/L (5-15); ASPARTATE AMINO TRANSFERASE 20 U/L (15-37); BILIRUBIN,TOTAL 0.5 MG/DL (0.2-1.0); BLOOD UREA NITROGEN 43 mg/dL (7-18); CALCIUM 8.4 MG/DL (8.5-10.1); CARBON DIOXIDE 34 MMOL/L (21-32); CHLORIDE 104 MMOL/L (98-107); CREATININE 1.5 MG/DL (0.55-1.30); PHOSPHORUS 4.3 MG/DL (2.5-4.9); POTASSIUM 4.6 MMOL/L (3.5-5.1); SODIUM 144 MMOL/L (136-145)
[2019-04-17 12:00] VITALS: BP 158/74
--- NOTE | 2019-04-17 15:00 | Hematology/Onc Progress Note ---
Assessment/Plan Assessment/Plan Assessment and Recs: # Secondary hypercoagulable disorder, has afib with rvr, w/u as per cards --> initially on heparin gtt --> NOW OFF --> cardizem po started for rhythm control --> per cards agree with apixaban # Leukocytosis is likely due to steroid use --> wbc trend 15-->20k-->18-->19-->22-->21.1 --> steroid taper --> abx as per id # Hypokalemia --> per renal, replete k --> diuresis # CHF (congestive heart failure) v copd exacerbation --> on lasix bid dosing, per cards --> bipap afterload reduction # Obesity --> weight loss recommended --> lifestyle modification # Afib with rvr per cards --> on apixban --> rate control/rhythm # Dvt ppx apix DW Rn and appreciate consultation. Subjective Allergies: Coded Allergies: RIVAROXABAN (Verified Allergy, Unknown, 04/05/19) Subjective 04/11: remains on diltz and heparin gtt, oon bipap o/n 04/12: bipap overnight and 2lnc, as per cards on apixaban, still bp high 04/13: transferred to tele, awake and alert, no acute events, cbc ordered 04/14: Dr. Doll aware, afib with rvr, is on dig / cardizem, now nsr, no bleeding 04/15: wbc remains higher but likely due to steroids, refusing fluid restriction 04/17: awake and alert, cxr w/ opacities, on abx, nc 4L Objective Objective Current Medications Medications (Trade) Dose Ordered Sig/David Route PRN Reason Start Time Stop Time Status Last Admin Dose Admin Acetaminophen (Tylenol) 650 mg Q6H PRN ORAL Mild Pain/Temp > 100.5 04/12/19 12:30 05/08/19 18:27 Acetazolamide (Diamox) 250 mg DAILY ORAL 04/13/19 09:00 05/10/19 11:59 04/17/19 09:33 Apixaban (Eliquis) 5 mg BID ORAL 04/12/19 18:00 05/11/19 17:59 04/17/19 09:32 Aspirin (ASA) 81 mg DAILY ORAL 04/13/19 09:00 05/06/19 08:59 04/17/19 09:32 Atorvastatin Calcium (Lipitor) 40 mg BEDTIME ORAL 04/12/19 21:00 05/06/19 20:59 04/16/19 21:57 Clonidine HCl (Catapres Tab) 0.1 mg Q4H PRN ORAL bp over 165 syst 04/12/19 11:45 05/08/19 11:44 04/15/19 04:37 Digoxin (Lanoxin) 0.25 mg DAILY ORAL 04/13/19 09:00 05/11/19 08:59 04/17/19 09:36 Diltiazem HCl (Cardizem CD) 360 mg DAILY ORAL 04/14/19 09:00 05/14/19 08:59 04/17/19 09:36 Docusate Sodium (Colace) 100 mg THREE TIMES A DAY ORAL 04/12/19 13:00 05/09/19 08:59 04/17/19 14:04 Doxycycline Monohydrate (Doxycycline Monohydrate) 100 mg EVERY 12 HOURS ORAL 04/16/19 21:00 04/23/19 20:59 04/17/19 09:33 Folic Acid (Folate) 1 mg DAILY ORAL 04/13/19 09:00 05/10/19 10:59 04/17/19 09:33 Furosemide (Lasix) 80 mg Q12HR@0600,1800 IV 04/12/19 18:00 05/08/19 17:59 04/17/19 05:53 Gabapentin (Neurontin) 600 mg BID ORAL 04/12/19 18:00 05/06/19 17:59 04/17/19 09:32 Guaifenesin/ Dextromethorphan (Robitussin DM Syrup) 5 ml Q4H PRN ORAL For Cough 04/12/19 11:30 05/10/19 19:29 04/16/19 11:49 Metoprolol Tartrate (Lopressor) 25 mg BID ORAL 04/14/19 11:30 05/14/19 11:29 04/17/19 09:36 Morphine Sulfate (Morphine Sulfate) 1 mg Q6H PRN IVP Breakthrough Pain 04/15/19 11:45 04/18/19 11:44 04/17/19 14:04 Ondansetron HCl (Zofran) 4 mg Q6H PRN IVP Nausea & Vomiting 04/12/19 11:45 05/08/19 11:44 Oxycodone/ Acetaminophen (Percocet 5-325) 1 tab Q4H PRN ORAL Severe Pain (Pain Scale 7-10) 04/15/19 11:45 04/18/19 11:44 Pantoprazole (Protonix) 40 mg EVERY 12 HOURS ORAL 04/12/19 21:00 05/09/19 08:59 04/17/19 09:33 Piperacillin Sod/ Tazobactam Sod 3.375 gm/Sodium Chloride 110 ml @ 27.5 mls/hr Q8HR IVPB 04/16/19 21:00 04/23/19 20:59 04/17/19 14:07 Potassium Chloride (K-Dur) 40 meq BID ORAL 04/12/19 18:00 05/06/19 08:59 04/17/19 09:33 Prednisone (predniSONE) 20 mg DAILY ORAL 04/17/19 09:00 05/16/19 08:59 04/17/19 09:33 Last 24 Hour Vital Signs Date Time Temp Pulse Resp B/P (MAP) Pulse Ox O2 Delivery O2 Flow Rate FiO2 04/17/19 09:36 70 153/85 04/17/19 09:36 70 153/85 04/17/19 09:36 70 04/17/19 09:00 Nasal Cannula 4.0 04/17/19 08:10 98.1 70 20 153/85 (107) 98 04/17/19 08:09 96 Nasal Cannula 4.0 36 04/17/19 05:27 98.0 04/17/19 04:00 97.8 65 18 138/77 (97) 96 04/17/19 04:00 4.0 04/17/19 04:00 65 04/17/19 00:12 67 18 97 Facial 30 04/17/19 00:00 65 04/17/19 00:00 4.0 04/17/19 00:00 98.0 79 18 124/78 (93) 98 04/16/19 21:00 Nasal Cannula 4.0 04/16/19 20:10 96 Nasal Cannula 4.0 36 04/16/19 20:00 97.9 86 18 130/87 (101) 97 04/16/19 20:00 77 12/14/19 20:00 4.0 04/16/19 18:06 74 128/97 04/16/19 16:00 97.2 74 18 128/97 (107) 95 04/16/19 16:00 63 04/16/19 16:00 4.0 04/16/19 12:00 72 04/16/19 12:00 4.0 04/16/19 12:00 97.9 90 20 130/70 (90) 95 04/16/19 09:00 Nasal Cannula 4.0 04/16/19 08:51 89 124/71 04/16/19 08:51 89 04/16/19 08:50 89 124/71 04/16/19 08:49 98.1 89 20 124/71 (88) 94 04/16/19 08:00 4.0 04/16/19 08:00 84 04/16/19 07:18 95 Nasal Cannula 4.0 36 04/16/19 04:00 4.0 30 04/16/19 04:00 78 04/16/19 04:00 78 04/16/19 03:29 66 20 98 Facial 30 04/16/19 03:14 78 20 97 Nasal Cannula 4.0 36 04/16/19 00:00 4.0 04/16/19 00:00 83 04/16/19 00:00 97.9 83 18 124/72 (89) 94 04/15/19 22:37 74 18 97 Nasal Cannula 4.0 36 72 18 95 04/15/19 21:00 Nasal Cannula 4.0 04/15/19 20:00 4.0 04/15/19 20:00 100 04/15/19 20:00 98.2 100 18 122/87 (99) 96 04/15/19 18:59 96 Nasal Cannula 4.0 36 04/15/19 18:59 84 20 98 Nasal Cannula 4.0 36 80 20 96 04/15/19 17:04 57 113/63 04/15/19 16:06 96.4 57 17 113/63 (80) 94 04/15/19 16:00 102 04/15/19 16:00 4.0 Intake and Output 04/16/19 04/17/19 19:00 07:00 Intake Total 1000 ml Output Total 2500 ml Balance 1000 ml -2500 ml Intake Oral 1000 ml Output Urine Total 2500 ml # Voids 8 # Bowel Movements 2 2 Labs Test 04/15/19 18:43 04/17/19 10:15 Urine Color Pale yellow Urine Appearance Clear Urine pH 5 (4.5-8.0) Urine Specific [place] 1.010 (1.005-1.035) Urine Protein Negative (NEGATIVE) Urine Glucose (UA) Negative (NEGATIVE) Urine Ketones Negative (NEGATIVE) Urine Blood Negative (NEGATIVE) Urine Nitrite Negative (NEGATIVE) Urine Bilirubin Negative (NEGATIVE) Urine Urobilinogen Normal MG/DL (0.0-1.0) Urine Leukocyte Esterase Negative (NEGATIVE) Urine RBC 0-2 /HPF (0 - 0) Urine WBC 0 /HPF (0 - 0) Urine Squamous Epithelial Cells None /LPF (NONE/OCC) Urine Bacteria None /HPF (NONE) White Blood Count 21.1 K/UL (4.8-10.8) Red Blood Count 6.01 M/UL (4.70-6.10) Hemoglobin 14.9 G/DL (14.2-18.0) Hematocrit 47.8 % (42.0-52.0) Mean Corpuscular Volume 80 FL (80-99) Mean Corpuscular Hemoglobin 24.8 PG (27.0-31.0) Mean Corpuscular Hemoglobin Concent 31.2 G/DL (32.0-36.0) Red Cell Distribution Width 16.4 % (11.6-14.8) Platelet Count 196 K/UL (150-450) Mean Platelet Volume 9.7 FL (6.5-10.1) Neutrophils (%) (Auto) % (45.0-75.0) Lymphocytes (%) (Auto) % (20.0-45.0) Monocytes (%) (Auto) % (1.0-10.0) Eosinophils (%) (Auto) % (0.0-3.0) Basophils (%) (Auto) % (0.0-2.0) Differential Total Cells Counted 100 Neutrophils % (Manual) 75 % (45-75) Lymphocytes % (Manual) 13 % (20-45) Monocytes % (Manual) 12 % (1-10) Eosinophils % (Manual) 0 % (0-3) Basophils % (Manual) 0 % (0-2) Band Neutrophils 0 % (0-8) Platelet Estimate Adequate Platelet Morphology Normal Anisocytosis 1+ Sodium Level 144 MMOL/L (136-145) Potassium Level 4.6 MMOL/L (3.5-5.1) Chloride Level 104 MMOL/L (98-107) Carbon Dioxide Level 34 MMOL/L (21-32) Anion Gap 6 mmol/L (5-15) Blood Urea Nitrogen 43 mg/dL (7-18) Creatinine 1.5 MG/DL (0.55-1.30) Estimat Glomerular Filtration Rate 49.9 mL/min (>60) Glucose Level 123 MG/DL (74-106) Calcium Level 8.4 MG/DL (8.5-10.1) Phosphorus Level 4.3 MG/DL (2.5-4.9) Magnesium Level 2.4 MG/DL (1.8-2.4) Total Bilirubin 0.5 MG/DL (0.2-1.0) Aspartate Amino Transf (AST/SGOT) 20 U/L (15-37) Alanine Aminotransferase (ALT/SGPT) 34 U/L (12-78) Alkaline Phosphatase 54 U/L (46-116) C-Reactive Protein, Quantitative 1.9 mg/dL (0.00-0.90) Pro-B-Type Natriuretic Peptide 187 pg/mL (0-125) Total Protein 6.0 G/DL (6.4-8.2) Albumin 3.1 G/DL (3.4-5.0) Globulin 2.9 g/dL Albumin/Globulin Ratio 1.1 (1.0-2.7) Height (Feet): 5 Height (Inches): 10.00 Weight (Pounds): 402 Objective Physical Exam General: Awake and alert, nad HEENT: NC/AT. EOMI. tympanic membranes are deeply erythematous though nonbulging , no effusion Cardiovascular: RRR. S1 and S2 normal. No murmur appreciated Resp: Normal work of breathing.++ wheezing, NC 4L++ Abdomen: Abdomen is soft, nondistended. Nontender Skin: Intact. No abrasions, laceration or rash over the exposed skin MSK: Normal tone and bulk. Moving all extremities. No obvious deformity. Ext: 1+ edema Harsh Lehman MD Apr 17, 2019 15:00
--- NOTE | 2019-04-17 15:23 | General Progress Note ---
Assessment/Plan Assessment/Plan: (1) Lumbar DDD (2) Lumbar Spondylosis (3) Morbid obesity Patient to be continued on Percocet and Morphine Parameters will be continued D/w Dr. Stack and he concurred. Subjective Date patient seen: Apr 17, 2019 Time patient seen: 03:00 - pm Allergies: Coded Allergies: RIVAROXABAN (Verified Allergy, Unknown, 04/05/19) Subjective REVIEW OF SYSTEMS: Denies rash, fever, chills at this time, sweating, dizziness, drowsiness, blurred vision, sore throat, change in weight. No nausea, vomiting, diarrhea, or blood in the stool or urine. No dysuria. He is complaining of low back pain. SUBJECTIVE: Patient is in bed and reports that the pain has been tolerated on the Morphine and Percocet. No new complaints at this time. Objective Last 24 Hour Vital Signs Date Time Temp Pulse Resp B/P (MAP) Pulse Ox O2 Delivery O2 Flow Rate FiO2 04/17/19 09:36 70 153/85 04/17/19 09:36 70 153/85 04/17/19 09:36 70 04/17/19 09:00 Nasal Cannula 4.0 04/17/19 08:10 98.1 70 20 153/85 (107) 98 04/17/19 08:09 96 Nasal Cannula 4.0 36 04/17/19 05:27 98.0 04/17/19 04:00 97.8 65 18 138/77 (97) 96 04/17/19 04:00 4.0 04/17/19 04:00 65 04/17/19 00:12 67 18 97 Facial 30 04/17/19 00:00 65 04/17/19 00:00 4.0 04/17/19 00:00 98.0 79 18 124/78 (93) 98 04/16/19 21:00 Nasal Cannula 4.0 04/16/19 20:10 96 Nasal Cannula 4.0 36 04/16/19 20:00 97.9 86 18 130/87 (101) 97 04/16/19 20:00 77 04/16/19 20:00 4.0 04/16/19 18:06 74 128/97 04/16/19 16:00 97.2 74 18 128/97 (107) 95 04/16/19 16:00 63 04/16/19 16:00 4.0 Intake and Output 04/16/19 04/17/19 19:00 07:00 Intake Total 1000 ml Output Total 2500 ml Balance 1000 ml -2500 ml Intake Oral 1000 ml Output Urine Total 2500 ml # Voids 8 # Bowel Movements 2 2 Laboratory Tests 04/17/19 10:15: White Blood Count 21.1H, Red Blood Count 6.01, Hemoglobin 14.9, Hematocrit 47.8 , Mean Corpuscular Volume 80, Mean Corpuscular Hemoglobin 24.8L, Mean Corpuscular Hemoglobin Concent 31.2L, Red Cell Distribution Width 16.4H, Platelet Count 196, Mean Platelet Volume 9.7, Neutrophils (%) (Auto) , Lymphocytes (%) (Auto) , Monocytes (%) (Auto) , Eosinophils (%) (Auto) , Basophils (%) (Auto) , Differential Total Cells Counted 100, Neutrophils % ( Manual) 75, Lymphocytes % (Manual) 13L, Monocytes % (Manual) 12H, Eosinophils % (Manual) 0, Basophils % (Manual) 0, Band Neutrophils 0, Platelet Estimate Adequate, Platelet Morphology Normal, Anisocytosis 1+, Sodium Level 144, Potassium Level 4.6, Chloride Level 104, Carbon Dioxide Level 34H, Anion Gap 6, Blood Urea Nitrogen 43H, Creatinine 1.5H, Estimat Glomerular Filtration Rate 49.9, Glucose Level 123H, Calcium Level 8.4L, Phosphorus Level 4.3, Magnesium Level 2.4, Total Bilirubin 0.5, Aspartate Amino Transf (AST/SGOT) 20, Alanine Aminotransferase (ALT/SGPT) 34, Alkaline Phosphatase 54, C-Reactive Protein, Quantitative 1.9H, Pro-B-Type Natriuretic Peptide 187H, Total Protein 6.0L, Albumin 3.1L, Globulin 2.9, Albumin/Globulin Ratio 1.1 Height (Feet): 5 Height (Inches): 10.00 Weight (Pounds): 402 Objective GENERAL: Alert, awake, and oriented. LUNGS: Decreased breath sounds bilaterally. HEART: S1 and S2 regular. ABDOMEN: Obese.. EXTREMITIES: No cyanosis. No clubbing. NEURO: No changes. Osito Sultana Apr 17, 2019 15:23
[2019-04-17 16:00] VITALS: BP 133/85
--- NOTE | 2019-04-17 17:37 | Pulmonology Progress Note ---
Assessment/Plan Assessment/Plan Pulmonary Progress Note HPI The patient is a 48-year-old man with history of obesity and Congestive Heart Failure, admitted with chest pain, shortness of breath, fevers and chills as well as sore throat and ear pain for 3 to 4 days ago. Denies cough or sputum production, vomiting or diarrhea On PO meds for Afib, Less SOB, using BiPAP at night, up in chair, no current ear pain On IV antibiotics for possible Pneumonia Past Medical History: Obesity, Congestive Heart Failure, Chronic Obstructive Pulmonary Disease, Diabetes, Hypertension Allergies: RIVAROXABAN All Other Systems: negative except mentioned in HPI Physical Exam Vital Signs Noted General: Awake and alert, no acute distress, obese HEENT: NC/AT. EOMI. tympanic membranes are erythematous, moist mm Cardiovascular: RRR. S1 and S2 normal. No murmur appreciated. Mild edema noted Resp: Normal work of breathing. CTAB Abdomen: Abdomen is soft, nondistended. Nontender Skin: Intact. No abrasions, laceration or rash over the exposed skin Extremities: Normal tone and bulk. Moving all extremities. No obvious deformity. Neuro: Awake and alert. Mentating appropriately. 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 No ST segment changes. Normal intervals CXR: Low lung volumes with persistent hazy opacities in right greater than left lungs which may represent pulmonary edema versus infectious/inflammatory process. Subjective ROS Limited/Unobtainable: No Allergies: Coded Allergies: RIVAROXABAN (Verified Allergy, Unknown, 04/05/19) Objective Last 24 Hour Vital Signs Date Time Temp Pulse Resp B/P (MAP) Pulse Ox O2 Delivery O2 Flow Rate FiO2 04/17/19 09:36 70 153/85 04/17/19 09:36 70 153/85 04/17/19 09:36 70 04/17/19 09:00 Nasal Cannula 4.0 04/17/19 08:10 98.1 70 20 153/85 (107) 98 04/17/19 08:09 96 Nasal Cannula 4.0 36 04/17/19 05:27 98.0 04/17/19 04:00 97.8 65 18 138/77 (97) 96 04/17/19 04:00 4.0 04/17/19 04:00 65 04/17/19 00:12 67 18 97 Facial 30 04/17/19 00:00 65 04/17/19 00:00 4.0 04/17/19 00:00 98.0 79 18 124/78 (93) 98 04/16/19 21:00 Nasal Cannula 4.0 04/16/19 20:10 96 Nasal Cannula 4.0 36 04/16/19 20:00 97.9 86 18 130/87 (101) 97 04/16/19 20:00 77 04/16/19 20:00 4.0 04/16/19 18:06 74 128/97 Intake and Output 04/16/19 04/17/19 19:00 07:00 Intake Total 1000 ml Output Total 2500 ml Balance 1000 ml -2500 ml Intake Oral 1000 ml Output Urine Total 2500 ml # Voids 8 # Bowel Movements 2 2 Microbiology Date/Time Source Procedure Growth Status 04/15/19 18:43 Urine,Clean Catch Urine Culture - Preliminary Mixed Urogenital Contaminants Resulted Laboratory Tests 04/17/19 10:15: White Blood Count 21.1H, Red Blood Count 6.01, Hemoglobin 14.9, Hematocrit 47.8 , Mean Corpuscular Volume 80, Mean Corpuscular Hemoglobin 24.8L, Mean Corpuscular Hemoglobin Concent 31.2L, Red Cell Distribution Width 16.4H, Platelet Count 196, Mean Platelet Volume 9.7, Neutrophils (%) (Auto) , Lymphocytes (%) (Auto) , Monocytes (%) (Auto) , Eosinophils (%) (Auto) , Basophils (%) (Auto) , Differential Total Cells Counted 100, Neutrophils % ( Manual) 75, Lymphocytes % (Manual) 13L, Monocytes % (Manual) 12H, Eosinophils % (Manual) 0, Basophils % (Manual) 0, Band Neutrophils 0, Platelet Estimate Adequate, Platelet Morphology Normal, Anisocytosis 1+, Sodium Level 144, Potassium Level 4.6, Chloride Level 104, Carbon Dioxide Level 34H, Anion Gap 6, Blood Urea Nitrogen 43H, Creatinine 1.5H, Estimat Glomerular Filtration Rate 49.9, Glucose Level 123H, Calcium Level 8.4L, Phosphorus Level 4.3, Magnesium Level 2.4, Total Bilirubin 0.5, Aspartate Amino Transf (AST/SGOT) 20, Alanine Aminotransferase (ALT/SGPT) 34, Alkaline Phosphatase 54, C-Reactive Protein, Quantitative 1.9H, Pro-B-Type Natriuretic Peptide 187H, Total Protein 6.0L, Albumin 3.1L, Globulin 2.9, Albumin/Globulin Ratio 1.1 Current Medications Medications (Trade) Dose Ordered Sig/David Route PRN Reason Start Time Stop Time Status Last Admin Dose Admin Acetaminophen (Tylenol) 650 mg Q6H PRN ORAL Mild Pain/Temp > 100.5 04/12/19 12:30 05/08/19 18:27 Acetazolamide (Diamox) 250 mg DAILY ORAL 04/13/19 09:00 05/10/19 11:59 04/17/19 09:33 Apixaban (Eliquis) 5 mg BID ORAL 04/12/19 18:00 05/11/19 17:59 04/17/19 09:32 Aspirin (ASA) 81 mg DAILY ORAL 04/13/19 09:00 05/06/19 08:59 04/17/19 09:32 Atorvastatin Calcium (Lipitor) 40 mg BEDTIME ORAL 04/12/19 21:00 05/06/19 20:59 04/16/19 21:57 Clonidine HCl (Catapres Tab) 0.1 mg Q4H PRN ORAL bp over 165 syst 04/12/19 11:45 05/08/19 11:44 04/15/19 04:37 Digoxin (Lanoxin) 0.25 mg DAILY ORAL 04/13/19 09:00 05/11/19 08:59 04/17/19 09:36 Diltiazem HCl (Cardizem CD) 360 mg DAILY ORAL 04/14/19 09:00 05/14/19 08:59 04/17/19 09:36 Docusate Sodium (Colace) 100 mg THREE TIMES A DAY ORAL 04/12/19 13:00 05/09/19 08:59 04/17/19 14:04 Doxycycline Monohydrate (Doxycycline Monohydrate) 100 mg EVERY 12 HOURS ORAL 04/16/19 21:00 04/23/19 20:59 04/17/19 09:33 Folic Acid (Folate) 1 mg DAILY ORAL 04/13/19 09:00 05/10/19 10:59 04/17/19 09:33 Furosemide (Lasix) 80 mg Q12HR@0600,1800 IV 04/12/19 18:00 05/08/19 17:59 04/17/19 05:53 Gabapentin (Neurontin) 600 mg BID ORAL 04/12/19 18:00 05/06/19 17:59 04/17/19 09:32 Guaifenesin/ Dextromethorphan (Robitussin DM Syrup) 5 ml Q4H PRN ORAL For Cough 04/12/19 11:30 05/10/19 19:29 04/16/19 11:49 Metoprolol Tartrate (Lopressor) 25 mg BID ORAL 04/14/19 11:30 05/14/19 11:29 04/17/19 09:36 Morphine Sulfate (Morphine Sulfate) 1 mg Q6H PRN IVP Breakthrough Pain 04/15/19 11:45 04/18/19 11:44 04/17/19 14:04 Ondansetron HCl (Zofran) 4 mg Q6H PRN IVP Nausea & Vomiting 04/12/19 11:45 05/08/19 11:44 Oxycodone/ Acetaminophen (Percocet 5-325) 1 tab Q4H PRN ORAL Severe Pain (Pain Scale 7-10) 04/15/19 11:45 04/18/19 11:44 Pantoprazole (Protonix) 40 mg EVERY 12 HOURS ORAL 04/12/19 21:00 05/09/19 08:59 04/17/19 09:33 Piperacillin Sod/ Tazobactam Sod 3.375 gm/Sodium Chloride 110 ml @ 27.5 mls/hr Q8HR IVPB 04/16/19 21:00 04/23/19 20:59 04/17/19 14:07 Potassium Chloride (K-Dur) 40 meq BID ORAL 04/12/19 18:00 05/06/19 08:59 04/17/19 09:33 Prednisone (predniSONE) 20 mg DAILY ORAL 04/17/19 09:00 05/16/19 08:59 04/17/19 09:33 Mahesh Wise MD Apr 17, 2019 17:37
--- NOTE | 2019-04-17 20:29 | General Progress Note ---
Assessment/Plan Problem List: (1) Hypokalemia ICD Codes: E87.6 - Hypokalemia SNOMED: 97758804 (2) CHF (congestive heart failure) ICD Codes: I50.9 - Heart failure, unspecified SNOMED: 57588851 (3) Lower back pain ICD Codes: M54.5 - Low back pain SNOMED: 550835049 Status: progressing Assessment/Plan: leukocytosis is improving more alert azotemia is stable sleep apnea pleural effusion chf Subjective ROS Limited/Unobtainable: Yes Allergies: Coded Allergies: RIVAROXABAN (Verified Allergy, Unknown, 04/05/19) Objective Last 24 Hour Vital Signs Date Time Temp Pulse Resp B/P (MAP) Pulse Ox O2 Delivery O2 Flow Rate FiO2 04/17/19 19:06 66 133/85 04/17/19 16:00 97.3 66 20 133/85 (101) 97 04/17/19 12:00 97.9 70 18 158/74 (102) 98 04/17/19 09:36 70 153/85 04/17/19 09:36 70 153/85 04/17/19 09:36 70 04/17/19 09:00 Nasal Cannula 4.0 04/17/19 08:10 98.1 70 20 153/85 (107) 98 04/17/19 08:09 96 Nasal Cannula 4.0 36 04/17/19 05:27 98.0 04/17/19 04:00 97.8 65 18 138/77 (97) 96 04/17/19 04:00 4.0 04/17/19 04:00 65 04/17/19 00:12 67 18 97 Facial 30 04/17/19 00:00 65 04/17/19 00:00 4.0 04/17/19 00:00 98.0 79 18 124/78 (93) 98 04/16/19 21:00 Nasal Cannula 4.0 Intake and Output 04/16/19 04/17/19 19:00 07:00 Intake Total 1000 ml Output Total 2500 ml Balance 1000 ml -2500 ml Intake Oral 1000 ml Output Urine Total 2500 ml # Voids 8 # Bowel Movements 2 2 Laboratory Tests 04/17/19 10:15: White Blood Count 21.1H, Red Blood Count 6.01, Hemoglobin 14.9, Hematocrit 47.8 , Mean Corpuscular Volume 80, Mean Corpuscular Hemoglobin 24.8L, Mean Corpuscular Hemoglobin Concent 31.2L, Red Cell Distribution Width 16.4H, Platelet Count 196, Mean Platelet Volume 9.7, Neutrophils (%) (Auto) , Lymphocytes (%) (Auto) , Monocytes (%) (Auto) , Eosinophils (%) (Auto) , Basophils (%) (Auto) , Differential Total Cells Counted 100, Neutrophils % ( Manual) 75, Lymphocytes % (Manual) 13L, Monocytes % (Manual) 12H, Eosinophils % (Manual) 0, Basophils % (Manual) 0, Band Neutrophils 0, Platelet Estimate Adequate, Platelet Morphology Normal, Anisocytosis 1+, Sodium Level 144, Potassium Level 4.6, Chloride Level 104, Carbon Dioxide Level 34H, Anion Gap 6, Blood Urea Nitrogen 43H, Creatinine 1.5H, Estimat Glomerular Filtration Rate 49.9, Glucose Level 123H, Calcium Level 8.4L, Phosphorus Level 4.3, Magnesium Level 2.4, Total Bilirubin 0.5, Aspartate Amino Transf (AST/SGOT) 20, Alanine Aminotransferase (ALT/SGPT) 34, Alkaline Phosphatase 54, C-Reactive Protein, Quantitative 1.9H, Pro-B-Type Natriuretic Peptide 187H, Total Protein 6.0L, Albumin 3.1L, Globulin 2.9, Albumin/Globulin Ratio 1.1 Height (Feet): 5 Height (Inches): 10.00 Weight (Pounds): 402 Cardiovascular: normal rate Respiratory/Chest: lungs clear Abdomen: soft Brodie De Jesus MD Apr 17, 2019 20:29
--- NOTE | 2019-04-17 20:50 | NUR ---
NURSE NOTES: Educated pt on the importance of maintaining the fluid restriction, but pt verbalized, "I hear you man, but Im going to drink what I want to drink."
[2019-04-17] MEDS: Atorvastatin 20mg tab ORAL SCH (21:05)
--- NOTE | 2019-04-17 21:47 | NUR ---
HAND-OFF: Report given to Alejandro/KEESHA.
--- NOTE | 2019-04-17 22:08 | Cardiology Progress Note ---
Assessment/Plan Assessment/Plan 1. Acute HFnl EF, continue lasix. 2. Recurrent NSVT. No syncope. Nl EF. Stress test as out patient as couldn't fit in camera. No chest pain at this time. 3. Hypertension. Continue Lasix and Cardizem 4. Paroxysmal atrial fib with RVR, now in SR. On Cardizem, metoprolol and Digoxin. Dig level in am. Subjective Subjective Sinsus rhythm at rate of 66. Objective Last 24 Hour Vital Signs Date Time Temp Pulse Resp B/P (MAP) Pulse Ox O2 Delivery O2 Flow Rate FiO2 04/17/19 19:06 66 133/85 04/17/19 18:00 4.0 04/17/19 16:00 60 04/17/19 16:00 4.0 04/17/19 16:00 97.3 66 20 133/85 (101) 97 04/17/19 14:00 4.0 04/17/19 12:00 4.0 04/17/19 12:00 97.9 70 18 158/74 (102) 98 04/17/19 09:36 70 153/85 04/17/19 09:36 70 153/85 04/17/19 09:36 70 04/17/19 09:00 Nasal Cannula 4.0 04/17/19 08:10 98.1 70 20 153/85 (107) 98 04/17/19 08:09 96 Nasal Cannula 4.0 36 04/17/19 08:00 4.0 04/17/19 05:27 98.0 04/17/19 04:00 97.8 65 18 138/77 (97) 96 04/17/19 04:00 4.0 04/17/19 04:00 65 04/17/19 00:12 67 18 97 Facial 30 04/17/19 00:00 65 04/17/19 00:00 4.0 04/17/19 00:00 98.0 79 18 124/78 (93) 98 Intake and Output 04/16/19 04/17/19 19:00 07:00 Intake Total 1000 ml Output Total 2500 ml Balance 1000 ml -2500 ml Intake Oral 1000 ml Output Urine Total 2500 ml # Voids 8 # Bowel Movements 2 2 2D Echo: LVEF 65%, Mild IN/MR, RVSP 15 mmHg Laboratory Tests Test 04/17/19 10:15 White Blood Count 21.1 K/UL (4.8-10.8) H Red Blood Count 6.01 M/UL (4.70-6.10) Hemoglobin 14.9 G/DL (14.2-18.0) Hematocrit 47.8 % (42.0-52.0) Mean Corpuscular Volume 80 FL (80-99) Mean Corpuscular Hemoglobin 24.8 PG (27.0-31.0) L Mean Corpuscular Hemoglobin Concent 31.2 G/DL (32.0-36.0) L Red Cell Distribution Width 16.4 % (11.6-14.8) H Platelet Count 196 K/UL (150-450) Mean Platelet Volume 9.7 FL (6.5-10.1) Neutrophils (%) (Auto) % (45.0-75.0) Lymphocytes (%) (Auto) % (20.0-45.0) Monocytes (%) (Auto) % (1.0-10.0) Eosinophils (%) (Auto) % (0.0-3.0) Basophils (%) (Auto) % (0.0-2.0) Differential Total Cells Counted 100 Neutrophils % (Manual) 75 % (45-75) Lymphocytes % (Manual) 13 % (20-45) L Monocytes % (Manual) 12 % (1-10) H Eosinophils % (Manual) 0 % (0-3) Basophils % (Manual) 0 % (0-2) Band Neutrophils 0 % (0-8) Platelet Estimate Adequate Platelet Morphology Normal Anisocytosis 1+ Sodium Level 144 MMOL/L (136-145) Potassium Level 4.6 MMOL/L (3.5-5.1) Chloride Level 104 MMOL/L (98-107) Carbon Dioxide Level 34 MMOL/L (21-32) H Anion Gap 6 mmol/L (5-15) Blood Urea Nitrogen 43 mg/dL (7-18) H Creatinine 1.5 MG/DL (0.55-1.30) H Estimat Glomerular Filtration Rate 49.9 mL/min (>60) Glucose Level 123 MG/DL (74-106) H Calcium Level 8.4 MG/DL (8.5-10.1) L Phosphorus Level 4.3 MG/DL (2.5-4.9) Magnesium Level 2.4 MG/DL (1.8-2.4) Total Bilirubin 0.5 MG/DL (0.2-1.0) Aspartate Amino Transf (AST/SGOT) 20 U/L (15-37) Alanine Aminotransferase (ALT/SGPT) 34 U/L (12-78) Alkaline Phosphatase 54 U/L (46-116) C-Reactive Protein, Quantitative 1.9 mg/dL (0.00-0.90) H Pro-B-Type Natriuretic Peptide 187 pg/mL (0-125) H Total Protein 6.0 G/DL (6.4-8.2) L Albumin 3.1 G/DL (3.4-5.0) L Globulin 2.9 g/dL Albumin/Globulin Ratio 1.1 (1.0-2.7) Microbiology Date/Time Source Procedure Growth Status 04/15/19 18:43 Urine,Clean Catch Urine Culture - Preliminary Mixed Urogenital Contaminants Resulted Objective HEENT: No JVD. LUNGS: Coarse rhonchi. CARDIOVASCULAR: Regular S1 and S2 with no gallop or murmur. ABDOMEN: Soft, NT/ND, + BS. EXTREMITIES: 3+ pitting edema. Sandor Lawrence MD Apr 17, 2019 22:08
[2019-04-18 04:00] VITALS: BP 141/85
[2019-04-18] MEDS: Morphine Sulfate 2mg/ml Inj(IV/IM USE ONLY) IVP PRN ×3 (04:24→19:47)
[2019-04-18] MEDS: Piperacillin/Tazobactam 3.375 GM in NS 110 ML IVPB SCH ×3 (06:49→22:12)
--- NOTE | 2019-04-18 07:10 | NUR ---
HAND-OFF: Report given to KEESHA Stringer. Pt is awake and resting in bed, in no acute distress. Endorsed plan of care.
[2019-04-18 08:00] VITALS: BP 147/81
--- NOTE | 2019-04-18 08:16 | NUR ---
NURSE NOTES: Pt sitting at the edge of the bed, eating breakfast, Ox4 calm and cooperative however noncompliant with fluid restriction, pt NSR, denies pain, no s/s of distress or sob noted, pt expressed he would like to go home
--- NOTE | 2019-04-18 08:48 | General Progress Note ---
Assessment/Plan Assessment/Plan: (1) Lumbar DDD (2) Lumbar Spondylosis (3) Morbid obesity Patient to be continued on Percocet and Morphine Parameters will be continued D/w Dr. Stack and he concurred. Subjective Date patient seen: Apr 18, 2019 Time patient seen: 08:00 - am Allergies: Coded Allergies: RIVAROXABAN (Verified Allergy, Unknown, 04/05/19) Subjective REVIEW OF SYSTEMS: Denies rash, fever, chills at this time, sweating, dizziness, drowsiness, blurred vision, sore throat, change in weight. No nausea, vomiting, diarrhea, or blood in the stool or urine. No dysuria. He is complaining of low back pain. SUBJECTIVE: Patient reports pain has been stable and tolerated on the morphine as needed. Using the Percocet as needed. No new complaints at this time. Objective Last 24 Hour Vital Signs Date Time Temp Pulse Resp B/P (MAP) Pulse Ox O2 Delivery O2 Flow Rate FiO2 04/18/19 08:40 Nasal Cannula 4.0 04/18/19 08:39 4.0 04/18/19 08:00 98.6 76 22 147/81 (103) 95 04/18/19 04:00 97.3 69 20 141/85 (103) 95 04/18/19 04:00 4.0 04/18/19 04:00 69 04/18/19 01:03 4.0 04/18/19 00:00 72 04/18/19 00:00 72 04/17/19 21:00 Nasal Cannula 4.0 04/17/19 20:00 63 04/17/19 20:00 63 04/17/19 19:07 98 Nasal Cannula 4.0 36 04/17/19 19:06 66 133/85 04/17/19 18:00 4.0 04/17/19 16:00 60 04/17/19 16:00 4.0 04/17/19 16:00 97.3 66 20 133/85 (101) 97 04/17/19 14:00 4.0 04/17/19 12:00 4.0 04/17/19 12:00 97.9 70 18 158/74 (102) 98 04/17/19 09:36 70 153/85 04/17/19 09:36 70 153/85 04/17/19 09:36 70 12/15/19 09:00 Nasal Cannula 4.0 Intake and Output 04/17/19 04/18/19 19:00 07:00 Intake Total 1000 ml 1100 ml Output Total 3000 ml 2800 ml Balance -2000 ml -1700 ml Intake Oral 1000 ml 1100 ml Output Urine Total 3000 ml 2800 ml # Bowel Movements 2 Laboratory Tests 04/17/19 10:15: White Blood Count 21.1H, Red Blood Count 6.01, Hemoglobin 14.9, Hematocrit 47.8 , Mean Corpuscular Volume 80, Mean Corpuscular Hemoglobin 24.8L, Mean Corpuscular Hemoglobin Concent 31.2L, Red Cell Distribution Width 16.4H, Platelet Count 196, Mean Platelet Volume 9.7, Neutrophils (%) (Auto) , Lymphocytes (%) (Auto) , Monocytes (%) (Auto) , Eosinophils (%) (Auto) , Basophils (%) (Auto) , Differential Total Cells Counted 100, Neutrophils % ( Manual) 75, Lymphocytes % (Manual) 13L, Monocytes % (Manual) 12H, Eosinophils % (Manual) 0, Basophils % (Manual) 0, Band Neutrophils 0, Platelet Estimate Adequate, Platelet Morphology Normal, Anisocytosis 1+, Sodium Level 144, Potassium Level 4.6, Chloride Level 104, Carbon Dioxide Level 34H, Anion Gap 6, Blood Urea Nitrogen 43H, Creatinine 1.5H, Estimat Glomerular Filtration Rate 49.9, Glucose Level 123H, Calcium Level 8.4L, Phosphorus Level 4.3, Magnesium Level 2.4, Total Bilirubin 0.5, Aspartate Amino Transf (AST/SGOT) 20, Alanine Aminotransferase (ALT/SGPT) 34, Alkaline Phosphatase 54, C-Reactive Protein, Quantitative 1.9H, Pro-B-Type Natriuretic Peptide 187H, Total Protein 6.0L, Albumin 3.1L, Globulin 2.9, Albumin/Globulin Ratio 1.1 04/18/19 08:20: Digoxin Level [Pending] Height (Feet): 5 Height (Inches): 10.00 Weight (Pounds): 402 Objective GENERAL: Alert, awake, and oriented. LUNGS: Decreased breath sounds bilaterally. HEART: S1 and S2 regular. ABDOMEN: Obese.. EXTREMITIES: No cyanosis. No clubbing. NEURO: No changes. Osito Sultana Apr 18, 2019 08:47
--- NOTE | 2019-04-18 08:57 | NUR ---
CASE MANAGEMENT:REVIEW 04/17/19 SI: CHF. COPD . LOW BACK PAIN 98.1 70 20 153/85 98% ON 4L/NC CO2 34 BUN 43 CREAT 1.5 CA+8.4 WBC 21.1 IS: IV ZOSYN Q8HR IV LASIX BID DOXYCYCLINE PO BID K-DUR PO BID PREDNISONE PO QD LOPRESSOR PO BID ELIQUIS PO BID CARDIZEM PO QD CLONIDINE Q4/PRN DIGOXIN PO QD DIAMOX PO QD PROTONIX PO Q12 ASA PO QD NEURONTIN PO BID ROBITUSSIN PO Q4/PRN FOLATE PO QD LIPITOR PO QHS : 2E TELE UNIT DCP: FROM HOME PLAN: PATIENT REFUSING TELE MONITOR TAPER STEROIDS DILIP CASE MANAGEMENT:REVIEW 04/18/19 SI: CHF. COPD . LOW BACK PAIN 98.6 76 22 147/81 95% ON 4L/NC NO LABS TODAY IS: IV ZOSYN Q8HR IV LASIX BID DOXYCYCLINE PO BID K-DUR PO BID PREDNISONE PO QD LOPRESSOR PO BID ELIQUIS PO BID CARDIZEM PO QD CLONIDINE Q4/PRN DIGOXIN PO QD DIAMOX PO QD PROTONIX PO Q12 ASA PO QD NEURONTIN PO BID ROBITUSSIN PO Q4/PRN FOLATE PO QD LIPITOR PO QHS : 2E TELE UNIT DCP: FROM HOME PLAN: TAPER STEROIDS DILIP
[2019-04-18] MEDS: Doxycycline Monohydrate 100mg ORAL SCH ×2 (09:45→20:34)
[2019-04-18] MEDS: Eliquis 5mg tablet ORAL SCH ×2 (09:47→17:59)
[2019-04-18] MEDS: Docusate 100mg cap ORAL SCH ×3 (09:47→17:59)
[2019-04-18] MEDS: dilTIAZem HCl CD 180mg cap ORAL SCH (09:47)
[2019-04-18] MEDS: Aspirin Baby 81mg ORAL SCH (09:47)
--- NOTE | 2019-04-18 11:14 | Nephrology Progress Note ---
Assessment/Plan Problem List: (1) Hypokalemia (2) CHF (congestive heart failure) (3) Renal failure (4) Obesity, morbid, BMI 50 or higher (5) CO2 retention (6) COPD (chronic obstructive pulmonary disease) Assessment elevated Cr likely due to diuresis Obesity , NATASHA AT fib with FVR HTN Congestive heart failure, likely diastolic dysfunction. EF 60% Recurrent NSVT. No syncope. Hypertension. Morbid obesity. COPD. Lipidemia. Plan no new labs high WBCs ? steroids related Cr rising Keep BP in check Monitor lytes B12 and Folic acid Diamox PO per orders per cardio and pulmonary taper steroids as possible Subjective ROS Limited/Unobtainable: No Constitutional: Reports: malaise, weakness Objective Objective Last 24 Hour Vital Signs Date Time Temp Pulse Resp B/P (MAP) Pulse Ox O2 Delivery O2 Flow Rate FiO2 04/18/19 09:47 76 147/81 04/18/19 09:47 76 147/81 04/18/19 09:47 76 04/18/19 08:40 Nasal Cannula 4.0 04/18/19 08:39 4.0 04/18/19 08:00 98.6 76 22 147/81 (103) 95 04/18/19 07:20 97 Nasal Cannula 4.0 36 04/18/19 04:00 97.3 69 20 141/85 (103) 95 04/18/19 04:00 4.0 04/18/19 04:00 69 04/18/19 01:03 4.0 04/18/19 00:00 72 04/18/19 00:00 72 04/17/19 21:00 Nasal Cannula 4.0 04/17/19 20:00 63 04/17/19 20:00 63 04/17/19 19:07 98 Nasal Cannula 4.0 36 04/17/19 19:06 66 133/85 04/17/19 18:00 4.0 04/17/19 16:00 60 04/17/19 16:00 4.0 04/17/19 16:00 97.3 66 20 133/85 (101) 97 04/17/19 14:00 4.0 04/17/19 12:00 4.0 04/17/19 12:00 97.9 70 18 158/74 (102) 98 Intake and Output 04/17/19 04/18/19 19:00 07:00 Intake Total 1000 ml 1100 ml Output Total 3000 ml 2800 ml Balance -2000 ml -1700 ml Intake Oral 1000 ml 1100 ml Output Urine Total 3000 ml 2800 ml # Bowel Movements 2 Laboratory Tests 04/18/19 08:20: Digoxin Level 0.5 Height (Feet): 5 Height (Inches): 10.00 Weight (Pounds): 402 General Appearance: no apparent distress Cardiovascular: normal rate Respiratory/Chest: decreased breath sounds Abdomen: distended Objective no change Bebeto Yin MD Apr 18, 2019 11:14
[2019-04-18 12:00] VITALS: BP 149/95
[2019-04-18] MEDS: oxyCODONE HCL/Acetaminophen 5/325mg ORAL PRN ×2 (12:15→18:09)
--- NOTE | 2019-04-18 14:01 | Hematology/Onc Progress Note ---
Assessment/Plan Assessment/Plan Assessment and Recs: # Secondary hypercoagulable disorder, has afib with rvr, w/u as per cards --> initially on heparin gtt --> NOW OFF --> cardizem po started for rhythm control --> per cards agree with apixaban # Leukocytosis is likely due to steroid use --> wbc trend 15-->20k-->18-->19-->22-->21.1 --> steroid taper --> abx as per id # Hypokalemia --> per renal, replete k as needed --> diuresis # CHF (congestive heart failure) v copd exacerbation --> on lasix bid dosing, per cards --> bipap afterload reduction # Obesity --> weight loss recommended --> lifestyle modification # Afib with rvr per cards --> on apixban --> rate control/rhythm # Dvt ppx apix DW Rn and appreciate consultation. Subjective Constitutional: Denies: no symptoms, chills, fever, malaise, weakness, other HEENT: Denies: no symptoms, eye pain, blurred vision, tearing, double vision, ear pain, ear discharge, nose pain, nose congestion, throat pain, throat swelling, mouth pain, mouth swelling, other Cardiovascular: Denies: no symptoms, chest pain, edema, irregular heart rate, lightheadedness, palpitations, syncope, other Genitourinary: Denies: no symptoms, burning, discharge, frequency, flank pain, hematuria, incontinence, pain, urgency, other Neurologic/Psychiatric: Denies: no symptoms, anxiety, depressed, emotional problems, headache, numbness, paresthesia, pre-existing deficit, seizure, tingling, tremors, weakness, other Endocrine: Denies: no symptoms, excessive sweating, flushing, intolerance to cold, intolerance to heat, increased hunger, increased thirst, increased urine, unexplained weight gain, unexplained weight loss, other Hematologic/Lymphatic: Denies: no symptoms, anemia, easy bleeding, easy bruising, adenopathy, other Allergies: Coded Allergies: RIVAROXABAN (Verified Allergy, Unknown, 04/05/19) Subjective 04/11: remains on diltz and heparin gtt, oon bipap o/n 04/12: bipap overnight and 2lnc, as per cards on apixaban, still bp high 04/13: transferred to tele, awake and alert, no acute events, cbc ordered 04/14: Dr. Doll aware, afib with rvr, is on dig / cardizem, now nsr, no bleeding 04/15: wbc remains higher but likely due to steroids, refusing fluid restriction 04/17: awake and alert, cxr w/ opacities, on abx, nc 4L 04/18: noncompliant with fluid restriction, no bleeding, no night sweats Objective Objective Current Medications Medications (Trade) Dose Ordered Sig/David Route PRN Reason Start Time Stop Time Status Last Admin Dose Admin Acetaminophen (Tylenol) 650 mg Q6H PRN ORAL Mild Pain/Temp > 100.5 04/12/19 12:30 05/08/19 18:27 Acetazolamide (Diamox) 250 mg DAILY ORAL 04/13/19 09:00 05/10/19 11:59 04/18/19 09:45 Apixaban (Eliquis) 5 mg BID ORAL 04/12/19 18:00 05/11/19 17:59 04/18/19 09:47 Aspirin (ASA) 81 mg DAILY ORAL 04/13/19 09:00 05/06/19 08:59 04/18/19 09:47 Atorvastatin Calcium (Lipitor) 40 mg BEDTIME ORAL 04/12/19 21:00 05/06/19 20:59 04/17/19 21:05 Clonidine HCl (Catapres Tab) 0.1 mg Q4H PRN ORAL bp over 165 syst 04/12/19 11:45 05/08/19 11:44 04/15/19 04:37 Digoxin (Lanoxin) 0.25 mg DAILY ORAL 04/13/19 09:00 05/11/19 08:59 04/18/19 09:47 Diltiazem HCl (Cardizem CD) 360 mg DAILY ORAL 04/14/19 09:00 05/14/19 08:59 04/18/19 09:47 Docusate Sodium (Colace) 100 mg THREE TIMES A DAY ORAL 04/12/19 13:00 05/09/19 08:59 04/18/19 13:35 Doxycycline Monohydrate (Doxycycline Monohydrate) 100 mg EVERY 12 HOURS ORAL 04/16/19 21:00 04/23/19 20:59 04/18/19 09:45 Folic Acid (Folate) 1 mg DAILY ORAL 04/13/19 09:00 05/10/19 10:59 04/18/19 09:47 Furosemide (Lasix) 80 mg Q12HR@0600,1800 IV 04/12/19 18:00 05/08/19 17:59 04/18/19 06:48 Gabapentin (Neurontin) 600 mg BID ORAL 04/12/19 18:00 05/06/19 17:59 04/18/19 09:45 Guaifenesin/ Dextromethorphan (Robitussin DM Syrup) 5 ml Q4H PRN ORAL For Cough 04/12/19 11:30 05/10/19 19:29 04/16/19 11:49 Metoprolol Tartrate (Lopressor) 25 mg BID ORAL 04/14/19 11:30 05/14/19 11:29 04/18/19 09:47 Morphine Sulfate (Morphine Sulfate) 1 mg Q6H PRN IVP Breakthrough Pain 04/18/19 08:48 04/25/19 08:47 04/18/19 13:35 Ondansetron HCl (Zofran) 4 mg Q6H PRN IVP Nausea & Vomiting 04/12/19 11:45 05/08/19 11:44 Oxycodone/ Acetaminophen (Percocet 5-325) 1 tab Q4H PRN ORAL Severe Pain (Pain Scale 7-10) 04/18/19 08:49 04/25/19 08:48 04/18/19 12:15 Pantoprazole (Protonix) 40 mg EVERY 12 HOURS ORAL 04/12/19 21:00 05/09/19 08:59 04/18/19 09:47 Piperacillin Sod/ Tazobactam Sod 3.375 gm/Sodium Chloride 110 ml @ 27.5 mls/hr Q8HR IVPB 04/16/19 21:00 04/23/19 20:59 04/18/19 13:35 Potassium Chloride (K-Dur) 40 meq BID ORAL 04/12/19 18:00 05/06/19 08:59 04/18/19 09:47 Prednisone (predniSONE) 20 mg DAILY ORAL 04/17/19 09:00 05/16/19 08:59 04/18/19 09:47 Last 24 Hour Vital Signs Date Time Temp Pulse Resp B/P (MAP) Pulse Ox O2 Delivery O2 Flow Rate FiO2 04/18/19 12:50 98.6 04/18/19 12:00 98.3 68 18 149/95 (113) 96 04/18/19 12:00 66 04/18/19 12:00 4.0 04/18/19 09:47 76 147/81 04/18/19 09:47 76 147/81 04/18/19 09:47 76 04/18/19 08:40 Nasal Cannula 4.0 04/18/19 08:39 4.0 04/18/19 08:07 84 04/18/19 08:00 98.6 76 22 147/81 (103) 95 04/18/19 07:20 97 Nasal Cannula 4.0 36 04/18/19 04:00 97.3 69 20 141/85 (103) 95 04/18/19 04:00 4.0 04/18/19 04:00 69 04/18/19 01:03 4.0 04/18/19 00:00 72 04/18/19 00:00 72 04/17/19 21:00 Nasal Cannula 4.0 04/17/19 20:00 63 04/17/19 20:00 63 04/17/19 19:07 98 Nasal Cannula 4.0 36 04/17/19 19:06 66 133/85 04/17/19 18:00 4.0 04/17/19 16:00 60 04/17/19 16:00 4.0 04/17/19 16:00 97.3 66 20 133/85 (101) 97 04/17/19 14:00 4.0 04/17/19 12:00 4.0 04/17/19 12:00 97.9 70 18 158/74 (102) 98 04/17/19 09:36 70 153/85 04/17/19 09:36 70 153/85 04/17/19 09:36 70 04/17/19 09:00 Nasal Cannula 4.0 04/17/19 08:10 98.1 70 20 153/85 (107) 98 04/17/19 08:09 96 Nasal Cannula 4.0 36 04/17/19 08:00 4.0 04/17/19 05:27 98.0 04/17/19 04:00 97.8 65 18 138/77 (97) 96 04/17/19 04:00 4.0 04/17/19 04:00 65 04/17/19 00:12 67 18 97 Facial 30 04/17/19 00:00 65 04/17/19 00:00 4.0 04/17/19 00:00 98.0 79 18 124/78 (93) 98 04/16/19 21:00 Nasal Cannula 4.0 04/16/19 20:10 96 Nasal Cannula 4.0 36 04/16/19 20:00 97.9 86 18 130/87 (101) 97 04/16/19 20:00 77 04/16/19 20:00 4.0 04/16/19 18:06 74 128/97 04/16/19 16:00 97.2 74 18 128/97 (107) 95 04/16/19 16:00 63 04/16/19 16:00 4.0 Intake and Output 04/17/19 04/18/19 19:00 07:00 Intake Total 1000 ml 1100 ml Output Total 3000 ml 2800 ml Balance -2000 ml -1700 ml Intake Oral 1000 ml 1100 ml Output Urine Total 3000 ml 2800 ml # Bowel Movements 2 Labs Test 04/15/19 18:43 04/17/19 10:15 04/18/19 08:20 Urine Color Pale yellow Urine Appearance Clear Urine pH 5 (4.5-8.0) Urine Specific [place] 1.010 (1.005-1.035) Urine Protein Negative (NEGATIVE) Urine Glucose (UA) Negative (NEGATIVE) Urine Ketones Negative (NEGATIVE) Urine Blood Negative (NEGATIVE) Urine Nitrite Negative (NEGATIVE) Urine Bilirubin Negative (NEGATIVE) Urine Urobilinogen Normal MG/DL (0.0-1.0) Urine Leukocyte Esterase Negative (NEGATIVE) Urine RBC 0-2 /HPF (0 - 0) Urine WBC 0 /HPF (0 - 0) Urine Squamous Epithelial Cells None /LPF (NONE/OCC) Urine Bacteria None /HPF (NONE) White Blood Count 21.1 K/UL (4.8-10.8) Red Blood Count 6.01 M/UL (4.70-6.10) Hemoglobin 14.9 G/DL (14.2-18.0) Hematocrit 47.8 % (42.0-52.0) Mean Corpuscular Volume 80 FL (80-99) Mean Corpuscular Hemoglobin 24.8 PG (27.0-31.0) Mean Corpuscular Hemoglobin Concent 31.2 G/DL (32.0-36.0) Red Cell Distribution Width 16.4 % (11.6-14.8) Platelet Count 196 K/UL (150-450) Mean Platelet Volume 9.7 FL (6.5-10.1) Neutrophils (%) (Auto) % (45.0-75.0) Lymphocytes (%) (Auto) % (20.0-45.0) Monocytes (%) (Auto) % (1.0-10.0) Eosinophils (%) (Auto) % (0.0-3.0) Basophils (%) (Auto) % (0.0-2.0) Differential Total Cells Counted 100 Neutrophils % (Manual) 75 % (45-75) Lymphocytes % (Manual) 13 % (20-45) Monocytes % (Manual) 12 % (1-10) Eosinophils % (Manual) 0 % (0-3) Basophils % (Manual) 0 % (0-2) Band Neutrophils 0 % (0-8) Platelet Estimate Adequate Platelet Morphology Normal Anisocytosis 1+ Sodium Level 144 MMOL/L (136-145) Potassium Level 4.6 MMOL/L (3.5-5.1) Chloride Level 104 MMOL/L (98-107) Carbon Dioxide Level 34 MMOL/L (21-32) Anion Gap 6 mmol/L (5-15) Blood Urea Nitrogen 43 mg/dL (7-18) Creatinine 1.5 MG/DL (0.55-1.30) Estimat Glomerular Filtration Rate 49.9 mL/min (>60) Glucose Level 123 MG/DL (74-106) Calcium Level 8.4 MG/DL (8.5-10.1) Phosphorus Level 4.3 MG/DL (2.5-4.9) Magnesium Level 2.4 MG/DL (1.8-2.4) Total Bilirubin 0.5 MG/DL (0.2-1.0) Aspartate Amino Transf (AST/SGOT) 20 U/L (15-37) Alanine Aminotransferase (ALT/SGPT) 34 U/L (12-78) Alkaline Phosphatase 54 U/L (46-116) C-Reactive Protein, Quantitative 1.9 mg/dL (0.00-0.90) Pro-B-Type Natriuretic Peptide 187 pg/mL (0-125) Total Protein 6.0 G/DL (6.4-8.2) Albumin 3.1 G/DL (3.4-5.0) Globulin 2.9 g/dL Albumin/Globulin Ratio 1.1 (1.0-2.7) Digoxin Level 0.5 NG/ML (0.5-2.0) Height (Feet): 5 Height (Inches): 10.00 Weight (Pounds): 402 Objective Physical Exam General: Awake and alert, nad HEENT: NC/AT. EOMI. tympanic membranes are deeply erythematous though nonbulging , no effusion Cardiovascular: RRR. S1 and S2 normal. No murmur appreciated Resp: Normal work of breathing.++ wheezing, NC 4L++ Abdomen: Abdomen is soft, nondistended. Nontender Skin: Intact. No abrasions, laceration or rash over the exposed skin MSK: Normal tone and bulk. Moving all extremities. No obvious deformity. Ext: 1+ edema Harsh Lehman MD Apr 18, 2019 14:01
[2019-04-18 16:00] VITALS: BP 139/76
--- NOTE | 2019-04-18 16:28 | NUR ---
*-* INSURANCE *-* ALL CLINICALS AND REVIEWS HAVE BEEN FAXED TO: [employer] NO MANAGER COMPLIANCE AT THIS TIME, PLEASE FAX THE REVIEW/CLINICAL P- [phone] F [phone]...REVIEW/CLINICAL
--- NOTE | 2019-04-18 19:00 | NUR ---
HAND-OFF: Report given to Alejandro Falcon.
--- NOTE | 2019-04-18 19:01 | NUR ---
NURSE NOTES: Received pt from KEESHA Stringer. Pt is awake and resting in bed in no acute distress. IV site intact. Bed locked in lowest position, call light within reach. Will continue with plan of care.
[2019-04-18 20:00] VITALS: BP 158/83
--- NOTE | 2019-04-18 20:25 | Cardiology Progress Note ---
Assessment/Plan Assessment/Plan 1. Acute HFnl EF, continue lasix. 2. Recurrent NSVT. No syncope. Nl EF. Stress test as out patient as couldn't fit in camera. No chest pain at this time. 3. Hypertension. Continue Lasix and Cardizem. 4. Paroxysmal atrial fib with RVR, now in SR. On Cardizem, metoprolol and Digoxin. Dig level in am. Subjective Subjective Sinsus rhythm at rate of 61. Objective Last 24 Hour Vital Signs Date Time Temp Pulse Resp B/P (MAP) Pulse Ox O2 Delivery O2 Flow Rate FiO2 04/18/19 20:04 95 Nasal Cannula 4.0 36 04/18/19 18:54 98.1 04/18/19 18:00 61 139/76 04/18/19 16:20 4.0 04/18/19 16:00 98.1 61 18 139/76 (97) 96 04/18/19 15:05 65 04/18/19 14:24 98.6 04/18/19 12:00 98.3 68 18 149/95 (113) 96 04/18/19 12:00 66 04/18/19 12:00 4.0 04/18/19 09:47 76 147/81 04/18/19 09:47 76 147/81 04/18/19 09:47 76 04/18/19 08:40 Nasal Cannula 4.0 04/18/19 08:39 4.0 04/18/19 08:07 84 04/18/19 08:00 98.6 76 22 147/81 (103) 95 04/18/19 07:20 97 Nasal Cannula 4.0 36 04/18/19 04:00 97.3 69 20 141/85 (103) 95 04/18/19 04:00 4.0 04/18/19 04:00 69 04/18/19 01:03 4.0 04/18/19 00:00 72 04/18/19 00:00 72 04/17/19 21:00 Nasal Cannula 4.0 Intake and Output 04/17/19 04/18/19 19:00 07:00 Intake Total 1000 ml 1100 ml Output Total 3000 ml 2800 ml Balance -2000 ml -1700 ml Intake Oral 1000 ml 1100 ml Output Urine Total 3000 ml 2800 ml # Bowel Movements 2 2D Echo: LVEF 65%, Mild UT/MR, RVSP 15 mmHg Laboratory Tests Test 04/18/19 08:20 Digoxin Level 0.5 NG/ML (0.5-2.0) Objective HEENT: No JVD. LUNGS: Coarse rhonchi. CARDIOVASCULAR: Regular S1 and S2 with no gallop or murmur. ABDOMEN: Soft, NT/ND, + BS. EXTREMITIES: 3+ pitting edema. Sandor Lawrence MD Apr 18, 2019 20:25
[2019-04-18] MEDS: Atorvastatin 20mg tab ORAL SCH (20:34)
--- NOTE | 2019-04-18 20:36 | General Progress Note ---
Assessment/Plan Problem List: (1) Hypokalemia ICD Codes: E87.6 - Hypokalemia SNOMED: 77130733 (2) CHF (congestive heart failure) ICD Codes: I50.9 - Heart failure, unspecified SNOMED: 93534792 (3) Lower back pain ICD Codes: M54.5 - Low back pain SNOMED: 311256571 Status: progressing Assessment/Plan: leukocytosis azotemia is stable sleep apnea pleural effusion chf improving morbid obesity reveiwed chart Subjective ROS Limited/Unobtainable: Yes Allergies: Coded Allergies: RIVAROXABAN (Verified Allergy, Unknown, 04/05/19) Objective Last 24 Hour Vital Signs Date Time Temp Pulse Resp B/P (MAP) Pulse Ox O2 Delivery O2 Flow Rate FiO2 04/18/19 20:04 95 Nasal Cannula 4.0 36 04/18/19 18:54 98.1 04/18/19 18:00 61 139/76 04/18/19 16:20 4.0 04/18/19 16:00 98.1 61 18 139/76 (97) 96 04/18/19 15:05 65 04/18/19 14:24 98.6 04/18/19 12:00 98.3 68 18 149/95 (113) 96 04/18/19 12:00 66 04/18/19 12:00 4.0 04/18/19 09:47 76 147/81 04/18/19 09:47 76 147/81 04/18/19 09:47 76 04/18/19 08:40 Nasal Cannula 4.0 04/18/19 08:39 4.0 04/18/19 08:07 84 04/18/19 08:00 98.6 76 22 147/81 (103) 95 04/18/19 07:20 97 Nasal Cannula 4.0 36 04/18/19 04:00 97.3 69 20 141/85 (103) 95 04/18/19 04:00 4.0 04/18/19 04:00 69 04/18/19 01:03 4.0 04/18/19 00:00 72 04/18/19 00:00 72 04/17/19 21:00 Nasal Cannula 4.0 Intake and Output 04/17/19 04/18/19 19:00 07:00 Intake Total 1000 ml 1100 ml Output Total 3000 ml 2800 ml Balance -2000 ml -1700 ml Intake Oral 1000 ml 1100 ml Output Urine Total 3000 ml 2800 ml # Bowel Movements 2 Laboratory Tests 04/18/19 08:20: Digoxin Level 0.5 Height (Feet): 5 Height (Inches): 10.00 Weight (Pounds): 402 Respiratory/Chest: rhonchi - bilaterally Abdomen: soft Brodie De Jesus MD Apr 18, 2019 20:36
--- NOTE | 2019-04-18 21:00 | Consultation ---
DATE OF CONSULTATION: 04/18/2019 INFECTIOUS DISEASE CONSULTATION CONSULTING PHYSICIAN: Bill Pak M.D. PRIMARY ATTENDING PHYSICIAN: Brodie De Jesus M.D. REASON FOR CONSULTATION: Leukocytosis, COPD, questionable pneumonia. HISTORY OF PRESENT ILLNESS: This is a 48-year-old male, admitted on April 05 because of chest pain, shortness of breath, sore throat, and ear pain. The symptoms were present 3 to 4 days before admission. At the time of admission, WBC count was normal. He was started on a steroid that is still continuing and started having increase in leukocyte count from 04/08/2019. Denies any fever. PAST MEDICAL HISTORY: Significant for obesity, hypertension, COPD, and diastolic CHF. In hospital, also had paroxysmal A Fib with rapid ventricular rate. ALLERGIES: Allergic to rivaroxaban. MEDICATIONS: Getting Percocet, morphine, prednisone, doxycycline, Zosyn started on 04/16/2019, metoprolol, aspirin, digoxin, folic acid, acetazolamide, Protonix, apixaban, Lasix, gabapentin, potassium chloride, clonidine, and guaifenesin. SOCIAL HISTORY: Single. Denies alcohol, drug abuse, or smoking. REVIEW OF SYSTEMS: He has no fever. No chills. He has generalized body pain. No significant coughing or shortness of breath. He has good appetite. No problem passing urine. PHYSICAL EXAMINATION: VITAL SIGNS: Temperature is 98.6, pulse 76, and blood pressure 147/81. GENERAL APPEARANCE: He is morbidly obese with BMI of 57.7. HEAD AND NECK: Getting oxygen by nasal cannula. Eyes, pink conjunctivae. HEART: Normal rate. LUNGS: Decreased sounds bilaterally. ABDOMEN: Soft and nontender. EXTREMITIES: Edema of legs. SKIN: Chronic ischemic changes in both legs. NEUROLOGIC: Awake, alert, and oriented x3. LABORATORY AND DIAGNOSTIC DATA: WBC today is 21.1, hemoglobin 14.9, hematocrit 47.8, and platelet 196,000. Sodium 144, potassium 4.6, chloride 104, bicarb 24, BUN 43, creatinine 1.5, and glucose is 123. He had one blood gas on 04/08/2019, that showed pCO2 of 71. VRE culture is positive. Influenza A and B tests are negative. Sputum, normal nolberto. Urine culture, mixed urogenital contaminant. Urine toxicology at the time of admission was negative. IMPRESSION: 1. Leukocytosis, maybe related to steroid. 2. Pulmonary edema/pneumonia. 3. Diastolic CHF. 4. VRE colonization. 5. Morbid obesity. 6. COPD with hypercapnic hypoxemic respiratory failure. 7. Hypertension. 8. Hyperkalemia, likely chronic kidney disease. RECOMMENDATIONS: Repeat chest x-ray. Continue antibiotics, Zosyn and doxycycline for a short period of time. Taper steroids. At the end of my exam, I thank Dr. De Jesus for involving me in the care of this patient. Bill Pak M.D. DR: FELTON JOB#: [id number] CC: NOEMY
--- NOTE | 2019-04-18 22:57 | Pulmonology Progress Note ---
Assessment/Plan Assessment/Plan Pulmonary Progress Note HPI The patient is a 48-year-old man with history of obesity and Congestive Heart Failure, admitted with chest pain, shortness of breath, fevers and chills as well as sore throat and ear pain for 3 to 4 days ago. Denies cough or sputum production, vomiting or diarrhea On PO meds for Afib, Less SOB, using BiPAP at night, up in chair, no current ear pain On IV antibiotics for possible Pneumonia, persistent Leukocytosis Past Medical History: Obesity, Congestive Heart Failure, Chronic Obstructive Pulmonary Disease, Diabetes, Hypertension Allergies: RIVAROXABAN All Other Systems: negative except mentioned in HPI Physical Exam Vital Signs Noted General: Awake and alert, no acute distress, obese HEENT: NC/AT. EOMI. tympanic membranes are erythematous, moist mm Cardiovascular: RRR. S1 and S2 normal. No murmur appreciated. Mild edema noted Resp: Normal work of breathing. CTAB Abdomen: Abdomen is soft, nondistended. Nontender Skin: Intact. No abrasions, laceration or rash over the exposed skin Extremities: Normal tone and bulk. Moving all extremities. No obvious deformity. Neuro: Awake and alert. Mentating appropriately. Impression: Congestive heart failure Viral Illness Chronic Obstructive Pulmonary Disease Possible Pneumonia Obesity Hypertension Diabetes Hypokalemia Plan - Diuresis PRN - Steroids, wean as tolerated - 20 daily, can be converted to Medrol dose pack on DC - Elevated WCC, antibiotics for possible pneumonia per ID - HHN - O2 PRN - BiPAP PRN/QHS - ISS - PPX - [employer] Medications - Recheck UA/CXR Laboratory Tests Noted EKG: Sinus rhythm with PACs. No ST segment changes. Normal intervals CXR: Low lung volumes with persistent hazy opacities in right greater than left lungs which may represent pulmonary edema versus infectious/inflammatory process. Subjective ROS Limited/Unobtainable: No Allergies: Coded Allergies: RIVAROXABAN (Verified Allergy, Unknown, 04/05/19) Objective Last 24 Hour Vital Signs Date Time Temp Pulse Resp B/P (MAP) Pulse Ox O2 Delivery O2 Flow Rate FiO2 04/18/19 21:00 Nasal Cannula 4.0 04/18/19 20:04 95 Nasal Cannula 4.0 36 04/18/19 20:00 4.0 04/18/19 20:00 56 04/18/19 20:00 98.1 56 20 158/83 (108) 92 04/18/19 18:54 98.1 04/18/19 18:00 61 139/76 04/18/19 16:20 4.0 04/18/19 16:00 98.1 61 18 139/76 (97) 96 04/18/19 15:05 65 04/18/19 14:24 98.6 04/18/19 12:00 98.3 68 18 149/95 (113) 96 04/18/19 12:00 66 04/18/19 12:00 4.0 04/18/19 09:47 76 147/81 04/18/19 09:47 76 147/81 04/18/19 09:47 76 04/18/19 08:40 Nasal Cannula 4.0 04/18/19 08:39 4.0 04/18/19 08:07 84 04/18/19 08:00 98.6 76 22 147/81 (103) 95 04/18/19 07:20 97 Nasal Cannula 4.0 36 04/18/19 04:00 97.3 69 20 141/85 (103) 95 04/18/19 04:00 4.0 04/18/19 04:00 69 04/18/19 01:03 4.0 04/18/19 00:00 72 04/18/19 00:00 72 Intake and Output 04/17/19 04/18/19 19:00 07:00 Intake Total 1000 ml 1100 ml Output Total 3000 ml 2800 ml Balance -2000 ml -1700 ml Intake Oral 1000 ml 1100 ml Output Urine Total 3000 ml 2800 ml # Bowel Movements 2 Laboratory Tests 04/18/19 08:20: Digoxin Level 0.5 Current Medications Medications (Trade) Dose Ordered Sig/David Route PRN Reason Start Time Stop Time Status Last Admin Dose Admin Acetaminophen (Tylenol) 650 mg Q6H PRN ORAL Mild Pain/Temp > 100.5 04/12/19 12:30 05/08/19 18:27 Acetazolamide (Diamox) 250 mg DAILY ORAL 04/13/19 09:00 05/10/19 11:59 04/18/19 09:45 Apixaban (Eliquis) 5 mg BID ORAL 04/12/19 18:00 05/11/19 17:59 04/18/19 17:59 Aspirin (ASA) 81 mg DAILY ORAL 04/13/19 09:00 05/06/19 08:59 04/18/19 09:47 Atorvastatin Calcium (Lipitor) 40 mg BEDTIME ORAL 04/12/19 21:00 05/06/19 20:59 04/18/19 20:34 Clonidine HCl (Catapres Tab) 0.1 mg Q4H PRN ORAL bp over 165 syst 04/12/19 11:45 05/08/19 11:44 04/15/19 04:37 Digoxin (Lanoxin) 0.25 mg DAILY ORAL 04/13/19 09:00 05/11/19 08:59 04/18/19 09:47 Diltiazem HCl (Cardizem CD) 360 mg DAILY ORAL 04/14/19 09:00 05/14/19 08:59 04/18/19 09:47 Docusate Sodium (Colace) 100 mg THREE TIMES A DAY ORAL 04/12/19 13:00 05/09/19 08:59 04/18/19 17:59 Doxycycline Monohydrate (Doxycycline Monohydrate) 100 mg EVERY 12 HOURS ORAL 04/16/19 21:00 04/23/19 20:59 04/18/19 20:34 Folic Acid (Folate) 1 mg DAILY ORAL 04/13/19 09:00 05/10/19 10:59 04/18/19 09:47 Furosemide (Lasix) 80 mg Q12HR@0600,1800 IV 04/12/19 18:00 05/08/19 17:59 04/18/19 18:00 Gabapentin (Neurontin) 600 mg BID ORAL 04/12/19 18:00 05/06/19 17:59 04/18/19 17:59 Guaifenesin/ Dextromethorphan (Robitussin DM Syrup) 5 ml Q4H PRN ORAL For Cough 04/12/19 11:30 05/10/19 19:29 04/16/19 11:49 Metoprolol Tartrate (Lopressor) 25 mg BID ORAL 04/14/19 11:30 05/14/19 11:29 04/18/19 18:00 Morphine Sulfate (Morphine Sulfate) 1 mg Q6H PRN IVP Breakthrough Pain 04/18/19 08:48 04/25/19 08:47 04/18/19 19:47 Ondansetron HCl (Zofran) 4 mg Q6H PRN IVP Nausea & Vomiting 04/12/19 11:45 05/08/19 11:44 Oxycodone/ Acetaminophen (Percocet 5-325) 1 tab Q4H PRN ORAL Severe Pain (Pain Scale 7-10) 04/18/19 08:49 04/25/19 08:48 04/18/19 18:09 Pantoprazole (Protonix) 40 mg EVERY 12 HOURS ORAL 04/12/19 21:00 05/09/19 08:59 04/18/19 20:34 Piperacillin Sod/ Tazobactam Sod 3.375 gm/Sodium Chloride 110 ml @ 27.5 mls/hr Q8HR IVPB 04/16/19 21:00 04/23/19 20:59 04/18/19 22:12 Potassium Chloride (K-Dur) 40 meq BID ORAL 04/12/19 18:00 05/06/19 08:59 04/18/19 17:59 Prednisone (predniSONE) 20 mg DAILY ORAL 04/17/19 09:00 05/16/19 08:59 04/18/19 09:47 Mahesh Wise MD Apr 18, 2019 22:57
[2019-04-19] VITALS: BP 140/85
[2019-04-19] MEDS: Morphine Sulfate 2mg/ml Inj(IV/IM USE ONLY) IVP PRN ×3 (02:37→18:16)
[2019-04-19 04:00] VITALS: BP 138/73
[2019-04-19] MEDS: Piperacillin/Tazobactam 3.375 GM in NS 110 ML IVPB SCH ×2 (05:46→13:11)
--- NOTE | 2019-04-19 06:07 | Hematology/Onc Progress Note ---
Assessment/Plan Assessment/Plan Assessment and Recs: # Secondary hypercoagulable disorder, has afib with rvr, w/u as per cards --> initially on heparin gtt --> NOW OFF --> cardizem po started for rhythm control --> per cards agree with apixaban # Leukocytosis is likely due to steroid use --> wbc trend 15-->20k-->18-->19-->22-->21.1 --> steroid taper --> abx as per id # Hypokalemia --> per renal, replete k as needed, per [place] --> diuresis prn # CHF (congestive heart failure) v copd exacerbation --> on lasix bid dosing, per cards --> bipap afterload reduction # Obesity --> weight loss recommended --> lifestyle modification # Afib with rvr per cards --> on apixban --> rate control/rhythm # Dvt ppx apix DW Rn and appreciate consultation. Subjective HEENT: Denies: no symptoms, eye pain, blurred vision, tearing, double vision, ear pain, ear discharge, nose pain, nose congestion, throat pain, throat swelling, mouth pain, mouth swelling, other Cardiovascular: Denies: no symptoms, chest pain, edema, irregular heart rate, lightheadedness, palpitations, syncope, other Gastrointestinal/Abdominal: Denies: no symptoms, abdomen distended, abdominal pain, black stools, tarry stools, blood in stool, constipated, diarrhea, difficulty swallowing, nausea, poor appetite, poor fluid intake, rectal bleeding , vomiting, other Genitourinary: Denies: no symptoms, burning, discharge, frequency, flank pain, hematuria, incontinence, pain, urgency, other Neurologic/Psychiatric: Denies: no symptoms, anxiety, depressed, emotional problems, headache, numbness, paresthesia, pre-existing deficit, seizure, tingling, tremors, weakness, other Endocrine: Denies: no symptoms, excessive sweating, flushing, intolerance to cold, intolerance to heat, increased hunger, increased thirst, increased urine, unexplained weight gain, unexplained weight loss, other Allergies: Coded Allergies: RIVAROXABAN (Verified Allergy, Unknown, 04/05/19) Subjective 04/11: remains on diltz and heparin gtt, oon bipap o/n 04/12: bipap overnight and 2lnc, as per cards on apixaban, still bp high 04/13: transferred to tele, awake and alert, no acute events, cbc ordered 04/14: Dr. Sharmila curran, afib with rvr, is on dig / cardizem, now nsr, no bleeding 04/15: wbc remains higher but likely due to steroids, refusing fluid restriction 04/17: awake and alert, cxr w/ opacities, on abx, nc 4L 04/18: noncompliant with fluid restriction, no bleeding, no night sweats 04/19; resting, no events, bipap overnight, seen by Howard Objective Objective Current Medications Medications (Trade) Dose Ordered Sig/David Route PRN Reason Start Time Stop Time Status Last Admin Dose Admin Acetaminophen (Tylenol) 650 mg Q6H PRN ORAL Mild Pain/Temp > 100.5 04/12/19 12:30 05/08/19 18:27 Acetazolamide (Diamox) 250 mg DAILY ORAL 04/13/19 09:00 05/10/19 11:59 04/18/19 09:45 Apixaban (Eliquis) 5 mg BID ORAL 04/12/19 18:00 05/11/19 17:59 04/18/19 17:59 Aspirin (ASA) 81 mg DAILY ORAL 04/13/19 09:00 05/06/19 08:59 04/18/19 09:47 Atorvastatin Calcium (Lipitor) 40 mg BEDTIME ORAL 04/12/19 21:00 05/06/19 20:59 04/18/19 20:34 Clonidine HCl (Catapres Tab) 0.1 mg Q4H PRN ORAL bp over 165 syst 04/12/19 11:45 05/08/19 11:44 04/15/19 04:37 Digoxin (Lanoxin) 0.25 mg DAILY ORAL 04/13/19 09:00 05/11/19 08:59 04/18/19 09:47 Diltiazem HCl (Cardizem CD) 360 mg DAILY ORAL 04/14/19 09:00 05/14/19 08:59 04/18/19 09:47 Docusate Sodium (Colace) 100 mg THREE TIMES A DAY ORAL 04/12/19 13:00 05/09/19 08:59 04/18/19 17:59 Doxycycline Monohydrate (Doxycycline Monohydrate) 100 mg EVERY 12 HOURS ORAL 04/16/19 21:00 04/23/19 20:59 04/18/19 20:34 Folic Acid (Folate) 1 mg DAILY ORAL 04/13/19 09:00 05/10/19 10:59 04/18/19 09:47 Furosemide (Lasix) 80 mg Q12HR@0600,1800 IV 04/12/19 18:00 05/08/19 17:59 04/19/19 05:46 Gabapentin (Neurontin) 600 mg BID ORAL 04/12/19 18:00 05/06/19 17:59 04/18/19 17:59 Guaifenesin/ Dextromethorphan (Robitussin DM Syrup) 5 ml Q4H PRN ORAL For Cough 04/12/19 11:30 05/10/19 19:29 04/16/19 11:49 Metoprolol Tartrate (Lopressor) 25 mg BID ORAL 04/14/19 11:30 05/14/19 11:29 04/18/19 18:00 Morphine Sulfate (Morphine Sulfate) 1 mg Q6H PRN IVP Breakthrough Pain 04/18/19 08:48 04/25/19 08:47 04/19/19 02:37 Ondansetron HCl (Zofran) 4 mg Q6H PRN IVP Nausea & Vomiting 04/12/19 11:45 05/08/19 11:44 Oxycodone/ Acetaminophen (Percocet 5-325) 1 tab Q4H PRN ORAL Severe Pain (Pain Scale 7-10) 04/18/19 08:49 04/25/19 08:48 04/18/19 18:09 Pantoprazole (Protonix) 40 mg EVERY 12 HOURS ORAL 04/12/19 21:00 05/09/19 08:59 04/18/19 20:34 Piperacillin Sod/ Tazobactam Sod 3.375 gm/Sodium Chloride 110 ml @ 27.5 mls/hr Q8HR IVPB 04/16/19 21:00 04/23/19 20:59 04/19/19 05:46 Potassium Chloride (K-Dur) 40 meq BID ORAL 04/12/19 18:00 05/06/19 08:59 04/18/19 17:59 Prednisone (predniSONE) 20 mg DAILY ORAL 04/17/19 09:00 05/16/19 08:59 04/18/19 09:47 Last 24 Hour Vital Signs Date Time Temp Pulse Resp B/P (MAP) Pulse Ox O2 Delivery O2 Flow Rate FiO2 04/19/19 04:00 97.8 78 21 138/73 (94) 97 04/19/19 04:00 78 04/19/19 04:00 4.0 28 04/19/19 03:56 71 19 96 Facial 30 04/19/19 00:00 98.0 64 18 140/85 (103) 97 04/19/19 00:00 64 04/18/19 21:00 Nasal Cannula 4.0 04/18/19 20:04 95 Nasal Cannula 4.0 36 04/18/19 20:00 4.0 04/18/19 20:00 56 04/18/19 20:00 98.1 56 20 158/83 (108) 92 04/18/19 18:54 98.1 04/18/19 18:00 61 139/76 04/18/19 16:20 4.0 04/18/19 16:00 98.1 61 18 139/76 (97) 96 04/18/19 15:05 65 04/18/19 14:24 98.6 04/18/19 12:00 98.3 68 18 149/95 (113) 96 04/18/19 12:00 66 04/18/19 12:00 4.0 04/18/19 09:47 76 147/81 04/18/19 09:47 76 147/81 04/18/19 09:47 76 04/18/19 08:40 Nasal Cannula 4.0 04/18/19 08:39 4.0 04/18/19 08:07 84 04/18/19 08:00 98.6 76 22 147/81 (103) 95 04/18/19 07:20 97 Nasal Cannula 4.0 36 04/18/19 04:00 97.3 69 20 141/85 (103) 95 04/18/19 04:00 4.0 04/18/19 04:00 69 04/18/19 01:03 4.0 04/18/19 00:00 72 04/18/19 00:00 72 04/17/19 21:00 Nasal Cannula 4.0 04/17/19 20:00 63 04/17/19 20:00 63 04/17/19 19:07 98 Nasal Cannula 4.0 36 04/17/19 19:06 66 133/85 04/17/19 18:00 4.0 04/17/19 16:00 60 04/17/19 16:00 4.0 04/17/19 16:00 97.3 66 20 133/85 (101) 97 04/17/19 14:00 4.0 04/17/19 12:00 4.0 04/17/19 12:00 97.9 70 18 158/74 (102) 98 04/17/19 09:36 70 153/85 04/17/19 09:36 70 153/85 04/17/19 09:36 70 04/17/19 09:00 Nasal Cannula 4.0 04/17/19 08:10 98.1 70 20 153/85 (107) 98 04/17/19 08:09 96 Nasal Cannula 4.0 36 04/17/19 08:00 4.0 Intake and Output 04/18/19 04/19/19 18:59 06:59 Intake Total 1200 ml 800 ml Output Total 3280 ml Balance -2080 ml 800 ml Intake Oral 1200 ml 800 ml Output Urine Total 3280 ml Labs Test 04/17/19 10:15 04/18/19 08:20 White Blood Count 21.1 K/UL (4.8-10.8) Red Blood Count 6.01 M/UL (4.70-6.10) Hemoglobin 14.9 G/DL (14.2-18.0) Hematocrit 47.8 % (42.0-52.0) Mean Corpuscular Volume 80 FL (80-99) Mean Corpuscular Hemoglobin 24.8 PG (27.0-31.0) Mean Corpuscular Hemoglobin Concent 31.2 G/DL (32.0-36.0) Red Cell Distribution Width 16.4 % (11.6-14.8) Platelet Count 196 K/UL (150-450) Mean Platelet Volume 9.7 FL (6.5-10.1) Neutrophils (%) (Auto) % (45.0-75.0) Lymphocytes (%) (Auto) % (20.0-45.0) Monocytes (%) (Auto) % (1.0-10.0) Eosinophils (%) (Auto) % (0.0-3.0) Basophils (%) (Auto) % (0.0-2.0) Differential Total Cells Counted 100 Neutrophils % (Manual) 75 % (45-75) Lymphocytes % (Manual) 13 % (20-45) Monocytes % (Manual) 12 % (1-10) Eosinophils % (Manual) 0 % (0-3) Basophils % (Manual) 0 % (0-2) Band Neutrophils 0 % (0-8) Platelet Estimate Adequate Platelet Morphology Normal Anisocytosis 1+ Sodium Level 144 MMOL/L (136-145) Potassium Level 4.6 MMOL/L (3.5-5.1) Chloride Level 104 MMOL/L (98-107) Carbon Dioxide Level 34 MMOL/L (21-32) Anion Gap 6 mmol/L (5-15) Blood Urea Nitrogen 43 mg/dL (7-18) Creatinine 1.5 MG/DL (0.55-1.30) Estimat Glomerular Filtration Rate 49.9 mL/min (>60) Glucose Level 123 MG/DL (74-106) Calcium Level 8.4 MG/DL (8.5-10.1) Phosphorus Level 4.3 MG/DL (2.5-4.9) Magnesium Level 2.4 MG/DL (1.8-2.4) Total Bilirubin 0.5 MG/DL (0.2-1.0) Aspartate Amino Transf (AST/SGOT) 20 U/L (15-37) Alanine Aminotransferase (ALT/SGPT) 34 U/L (12-78) Alkaline Phosphatase 54 U/L (46-116) C-Reactive Protein, Quantitative 1.9 mg/dL (0.00-0.90) Pro-B-Type Natriuretic Peptide 187 pg/mL (0-125) Total Protein 6.0 G/DL (6.4-8.2) Albumin 3.1 G/DL (3.4-5.0) Globulin 2.9 g/dL Albumin/Globulin Ratio 1.1 (1.0-2.7) Digoxin Level 0.5 NG/ML (0.5-2.0) Height (Feet): 5 Height (Inches): 10.00 Weight (Pounds): 402 Objective Physical Exam General: Awake and alert, nad HEENT: NC/AT. EOMI. tympanic membranes are deeply erythematous though nonbulging , no effusion Cardiovascular: RRR. S1 and S2 normal. No murmur appreciated Resp: Normal work of breathing.++ wheezing, NC 4L++ Abdomen: Abdomen is soft, nondistended. Nontender Skin: Intact. No abrasions, laceration or rash over the exposed skin MSK: Normal tone and bulk. Moving all extremities. No obvious deformity. Ext: 1+ edema Harsh Lehman MD Apr 19, 2019 06:07
--- NOTE | 2019-04-19 07:20 | NUR ---
HAND-OFF: Report given to Terrie Haji.
--- NOTE | 2019-04-19 07:33 | NUR ---
NURSE NOTES: Received patient from KEESHA Vanegas sitting at the edge of the bed eating breakfast, denies any pain at this time, No s/s of respiratory distress and no shortness of breath noted. IV site on left hand is intact and patent. Bed is in lowest position, bedside rails up x2. Will continue with the plan of care.
[2019-04-19 08:00] VITALS: BP 160/91
--- NOTE | 2019-04-19 08:14 | Pulmonology Progress Note ---
Assessment/Plan Assessment/Plan Pulmonary Progress Note HPI The patient is a 48-year-old man with history of obesity and Congestive Heart Failure, admitted with chest pain, shortness of breath, fevers and chills as well as sore throat and ear pain. Denies cough or sputum production, vomiting or diarrhea H/o Afib on AC, h/o POSA on CPAP Less SOB, using BiPAP at night and PRN, up in chair, no current ear pain On IV antibiotics for possible Pneumonia, persistent Leukocytosis Past Medical History: Obesity, Congestive Heart Failure, Chronic Obstructive Pulmonary Disease, Diabetes, Hypertension, NATASHA, Obesity Allergies: RIVAROXABAN All Other Systems: negative except mentioned in HPI Physical Exam Vital Signs Noted General: Awake and alert, no acute distress, obese HEENT: NC/AT. EOMI. tympanic membranes are erythematous, moist mm Cardiovascular: RRR. S1 and S2 normal. No murmur appreciated. Mild edema noted Resp: Normal work of breathing. CTAB Abdomen: Abdomen is soft, nondistended. Nontender Skin: Intact. No abrasions, laceration or rash over the exposed skin Extremities: Normal tone and bulk. Moving all extremities. No obvious deformity. Neuro: Awake and alert. Mentating appropriately. Impression: Congestive heart failure Viral Illness Chronic Obstructive Pulmonary Disease Possible Pneumonia Obesity Obstructive Sleep Apnea Hypertension Diabetes Plan - Diuresis PRN - Steroids, wean as tolerated - 20 daily, can be converted to Medrol dose pack on DC - Elevated WCC, antibiotics for possible pneumonia per ID - HHN - O2 PRN - BiPAP PRN/QHS - ISS - PPX - [employer]ST Medications Laboratory Tests Noted EKG: Sinus rhythm with PACs. No ST segment changes. Normal intervals CXR: Low lung volumes with persistent hazy opacities in right greater than left lungs which may represent pulmonary edema versus infectious/inflammatory process. Subjective ROS Limited/Unobtainable: No Allergies: Coded Allergies: RIVAROXABAN (Verified Allergy, Unknown, 04/05/19) Objective Last 24 Hour Vital Signs Date Time Temp Pulse Resp B/P (MAP) Pulse Ox O2 Delivery O2 Flow Rate FiO2 04/19/19 04:00 97.8 78 21 138/73 (94) 97 04/19/19 04:00 78 04/19/19 04:00 4.0 28 04/19/19 03:56 71 19 96 Facial 30 04/19/19 00:00 98.0 64 18 140/85 (103) 97 04/19/19 00:00 64 04/18/19 21:00 Nasal Cannula 4.0 04/18/19 20:04 95 Nasal Cannula 4.0 36 04/18/19 20:00 4.0 04/18/19 20:00 56 04/18/19 20:00 98.1 56 20 158/83 (108) 92 04/18/19 18:54 98.1 04/18/19 18:00 61 139/76 04/18/19 16:20 4.0 04/18/19 16:00 98.1 61 18 139/76 (97) 96 04/18/19 15:05 65 04/18/19 14:24 98.6 04/18/19 12:00 98.3 68 18 149/95 (113) 96 04/18/19 12:00 66 04/18/19 12:00 4.0 04/18/19 09:47 76 147/81 04/18/19 09:47 76 147/81 04/18/19 09:47 76 04/18/19 08:40 Nasal Cannula 4.0 04/18/19 08:39 4.0 Intake and Output 04/18/19 04/19/19 19:00 07:00 Intake Total 1200 ml 1300 ml Output Total 3280 ml 1600 ml Balance -2080 ml -300 ml Intake Oral 1200 ml 1300 ml Output Urine Total 3280 ml 1600 ml # Voids 3 Laboratory Tests 04/18/19 08:20: Digoxin Level 0.5 Current Medications Medications (Trade) Dose Ordered Sig/David Route PRN Reason Start Time Stop Time Status Last Admin Dose Admin Acetaminophen (Tylenol) 650 mg Q6H PRN ORAL Mild Pain/Temp > 100.5 04/12/19 12:30 05/08/19 18:27 Acetazolamide (Diamox) 250 mg DAILY ORAL 04/13/19 09:00 05/10/19 11:59 04/18/19 09:45 Apixaban (Eliquis) 5 mg BID ORAL 04/12/19 18:00 05/11/19 17:59 04/18/19 17:59 Aspirin (ASA) 81 mg DAILY ORAL 04/13/19 09:00 05/06/19 08:59 04/18/19 09:47 Atorvastatin Calcium (Lipitor) 40 mg BEDTIME ORAL 04/12/19 21:00 05/06/19 20:59 04/18/19 20:34 Clonidine HCl (Catapres Tab) 0.1 mg Q4H PRN ORAL bp over 165 syst 04/12/19 11:45 05/08/19 11:44 04/15/19 04:37 Digoxin (Lanoxin) 0.25 mg DAILY ORAL 04/13/19 09:00 05/11/19 08:59 04/18/19 09:47 Diltiazem HCl (Cardizem CD) 360 mg DAILY ORAL 04/14/19 09:00 05/14/19 08:59 04/18/19 09:47 Docusate Sodium (Colace) 100 mg THREE TIMES A DAY ORAL 04/12/19 13:00 05/09/19 08:59 04/18/19 17:59 Doxycycline Monohydrate (Doxycycline Monohydrate) 100 mg EVERY 12 HOURS ORAL 04/16/19 21:00 04/23/19 20:59 04/18/19 20:34 Folic Acid (Folate) 1 mg DAILY ORAL 04/13/19 09:00 05/10/19 10:59 04/18/19 09:47 Furosemide (Lasix) 80 mg Q12HR@0600,1800 IV 04/12/19 18:00 05/08/19 17:59 04/19/19 05:46 Gabapentin (Neurontin) 600 mg BID ORAL 04/12/19 18:00 05/06/19 17:59 04/18/19 17:59 Guaifenesin/ Dextromethorphan (Robitussin DM Syrup) 5 ml Q4H PRN ORAL For Cough 04/12/19 11:30 05/10/19 19:29 04/16/19 11:49 Metoprolol Tartrate (Lopressor) 25 mg BID ORAL 04/14/19 11:30 05/14/19 11:29 04/18/19 18:00 Morphine Sulfate (Morphine Sulfate) 1 mg Q6H PRN IVP Breakthrough Pain 04/18/19 08:48 04/25/19 08:47 04/19/19 02:37 Ondansetron HCl (Zofran) 4 mg Q6H PRN IVP Nausea & Vomiting 04/12/19 11:45 05/08/19 11:44 Oxycodone/ Acetaminophen (Percocet 5-325) 1 tab Q4H PRN ORAL Severe Pain (Pain Scale 7-10) 04/18/19 08:49 04/25/19 08:48 04/18/19 18:09 Pantoprazole (Protonix) 40 mg EVERY 12 HOURS ORAL 04/12/19 21:00 05/09/19 08:59 04/18/19 20:34 Piperacillin Sod/ Tazobactam Sod 3.375 gm/Sodium Chloride 110 ml @ 27.5 mls/hr Q8HR IVPB 04/16/19 21:00 04/23/19 20:59 04/19/19 05:46 Potassium Chloride (K-Dur) 40 meq BID ORAL 04/12/19 18:00 05/06/19 08:59 04/18/19 17:59 Prednisone (predniSONE) 20 mg DAILY ORAL 04/17/19 09:00 05/16/19 08:59 04/18/19 09:47 Mahesh Wise MD Apr 19, 2019 08:14
[2019-04-19] MEDS: Doxycycline Monohydrate 100mg ORAL SCH ×2 (08:36→20:24)
[2019-04-19] MEDS: Aspirin Baby 81mg ORAL SCH (08:36)
[2019-04-19] MEDS: Eliquis 5mg tablet ORAL SCH ×2 (08:36→18:09)
[2019-04-19] MEDS: Docusate 100mg cap ORAL SCH ×3 (08:37→18:09)
[2019-04-19] MEDS: dilTIAZem HCl CD 180mg cap ORAL SCH (08:39)
--- NOTE | 2019-04-19 08:49 | General Progress Note ---
Assessment/Plan Assessment/Plan: (1) Lumbar DDD (2) Lumbar Spondylosis (3) Morbid obesity Patient to be continued on Percocet and Morphine Parameters will be continued D/w Dr. Stack and he concurred. Subjective Date patient seen: Apr 19, 2019 Time patient seen: 08:15 - am Allergies: Coded Allergies: RIVAROXABAN (Verified Allergy, Unknown, 04/05/19) Subjective REVIEW OF SYSTEMS: Denies rash, fever, chills at this time, sweating, dizziness, drowsiness, blurred vision, sore throat, change in weight. No nausea, vomiting, diarrhea, or blood in the stool or urine. No dysuria. He is complaining of low back pain. SUBJECTIVE: Patient is in bed and reports pain at a moderate level which has been tolerated on the Morphine 3 doses and Percocet 2 doses in the last 24hrs. No new complaints at this time. Objective Last 24 Hour Vital Signs Date Time Temp Pulse Resp B/P (MAP) Pulse Ox O2 Delivery O2 Flow Rate FiO2 04/19/19 08:39 79 160/91 04/19/19 08:38 79 04/19/19 08:37 79 160/91 04/19/19 04:00 97.8 78 21 138/73 (94) 97 04/19/19 04:00 78 04/19/19 04:00 4.0 28 04/19/19 03:56 71 19 96 Facial 30 04/19/19 00:00 98.0 64 18 140/85 (103) 97 04/19/19 00:00 64 04/18/19 21:00 Nasal Cannula 4.0 04/18/19 20:04 95 Nasal Cannula 4.0 36 04/18/19 20:00 4.0 04/18/19 20:00 56 04/18/19 20:00 98.1 56 20 158/83 (108) 92 04/18/19 18:54 98.1 04/18/19 18:00 61 139/76 04/18/19 16:20 4.0 04/18/19 16:00 98.1 61 18 139/76 (97) 96 04/18/19 15:05 65 04/18/19 14:24 98.6 04/18/19 12:00 98.3 68 18 149/95 (113) 96 04/18/19 12:00 66 12/16/19 12:00 4.0 04/18/19 09:47 76 147/81 04/18/19 09:47 76 147/81 04/18/19 09:47 76 Intake and Output 04/18/19 04/19/19 19:00 07:00 Intake Total 1200 ml 1300 ml Output Total 3280 ml 1600 ml Balance -2080 ml -300 ml Intake Oral 1200 ml 1300 ml Output Urine Total 3280 ml 1600 ml # Voids 3 Height (Feet): 5 Height (Inches): 10.00 Weight (Pounds): 402 Objective GENERAL: Alert, awake, and oriented. LUNGS: Decreased breath sounds bilaterally. HEART: S1 and S2 regular. ABDOMEN: Obese.. EXTREMITIES: No cyanosis. No clubbing. NEURO: No changes. Osito Sultana Apr 19, 2019 08:49
--- NOTE | 2019-04-19 10:45 | NUR ---
RADIOLOGY DEPT., CHEST X-RAY DONE.-P.DYE
--- NOTE | 2019-04-19 11:47 | Diagnostic Imaging Report ---
Indication: Shortness of breath Technique: One view of the chest Comparison: 04/16/2019 Findings: Inspiration is suboptimal. There are basilar atelectatic changes bilaterally. The heart is enlarged. Findings are unchanged. Impression: Unchanged, over 3 days findings as above.
--- NOTE | 2019-04-19 11:53 | NUR ---
CASE MANAGEMENT:REVIEW 04/18/19 SI: CHF. COPD . LOW BACK PAIN . 97.7 79 20 160/91 95 % ON 4L/NC ; FI02 28 NO LABS TODAY IS: IV ZOSYN Q8HR IV LASIX BID DOXYCYCLINE PO BID K-DUR PO BID PREDNISONE PO QD LOPRESSOR PO BID ELIQUIS PO BID CARDIZEM PO QD CLONIDINE Q4/PRN DIGOXIN PO QD DIAMOX PO QD PROTONIX PO Q12 ASA PO QD NEURONTIN PO BID ROBITUSSIN PO Q4/PRN FOLATE PO QD LIPITOR PO QHS : 2E TELE UNIT DCP: FROM HOME PLAN: CXRY THIS AM -UNCHANGED SP RESULTS PENDING TAPER STEROIDS DILIP Addendum: 04/20/19 at 1034 by GARCIA MOROCHO LVN 04/19/19
[2019-04-19 12:00] VITALS: BP 136/80
--- NOTE | 2019-04-19 13:01 | Nephrology Progress Note ---
Assessment/Plan Problem List: (1) Hypokalemia (2) CHF (congestive heart failure) (3) Renal failure (4) Obesity, morbid, BMI 50 or higher (5) CO2 retention (6) COPD (chronic obstructive pulmonary disease) Assessment elevated Cr likely due to diuresis Obesity , NATASHA AT fib with FVR HTN Congestive heart failure, likely diastolic dysfunction. EF 60% Recurrent NSVT. No syncope. Hypertension. Morbid obesity. COPD. Lipidemia. Plan no new labs high WBCs ? steroids related Cr rising Keep BP in check Monitor lytes B12 and Folic acid Diamox PO per orders per cardio and pulmonary taper steroids as possible Subjective ROS Limited/Unobtainable: No Constitutional: Reports: malaise Objective Objective Last 24 Hour Vital Signs Date Time Temp Pulse Resp B/P (MAP) Pulse Ox O2 Delivery O2 Flow Rate FiO2 04/19/19 12:00 4.0 28 04/19/19 12:00 97.9 78 18 136/80 (98) 96 04/19/19 09:00 Nasal Cannula 4.0 04/19/19 08:39 79 160/91 04/19/19 08:38 79 04/19/19 08:37 79 160/91 04/19/19 08:00 97.7 79 20 160/91 (114) 95 04/19/19 08:00 4.0 28 04/19/19 04:00 97.8 78 21 138/73 (94) 97 04/19/19 04:00 78 04/19/19 04:00 4.0 28 04/19/19 03:56 71 19 96 Facial 30 04/19/19 00:00 98.0 64 18 140/85 (103) 97 04/19/19 00:00 64 04/18/19 21:00 Nasal Cannula 4.0 04/18/19 20:04 95 Nasal Cannula 4.0 36 04/18/19 20:00 4.0 04/18/19 20:00 56 04/18/19 20:00 98.1 56 20 158/83 (108) 92 04/18/19 18:54 98.1 04/18/19 18:00 61 139/76 04/18/19 16:20 4.0 04/18/19 16:00 98.1 61 18 139/76 (97) 96 04/18/19 15:05 65 04/18/19 14:24 98.6 Intake and Output 04/18/19 04/19/19 19:00 07:00 Intake Total 1200 ml 1300 ml Output Total 3280 ml 1600 ml Balance -2080 ml -300 ml Intake Oral 1200 ml 1300 ml Output Urine Total 3280 ml 1600 ml # Voids 3 Height (Feet): 5 Height (Inches): 10.00 Weight (Pounds): 402 General Appearance: no apparent distress Cardiovascular: normal rate Respiratory/Chest: decreased breath sounds Abdomen: soft Objective no change Bebeto Yin MD Apr 19, 2019 13:01
--- NOTE | 2019-04-19 13:30 | Infectious Diseases Prog Note ---
Assessment/Plan Assessment/Plan IMPRESSION: 1. Leukocytosis, maybe related to steroid. 2. Pulmonary edema/pneumonia & atelectasis 3. Diastolic CHF. 4. VRE colonization. 5. Morbid obesity. 6. COPD with hypercapnic hypoxemic respiratory failure. 7. Hypertension. 8. Hyperkalemia, likely chronic kidney disease. RECOMMENDATIONS: Continue antibiotics, Zosyn and doxycycline Taper steroids. Subjective ROS Limited/Unobtainable: No Constitutional: Reports: no symptoms Respiratory: Reports: shortness of breath Gastrointestinal/Abdominal: Reports: no symptoms Genitourinary: Reports: no symptoms Musculoskeletal: Reports: pain, other - in back Allergies: Coded Allergies: RIVAROXABAN (Verified Allergy, Unknown, 04/05/19) Objective Vital Signs Last 24 Hour Vital Signs Date Time Temp Pulse Resp B/P (MAP) Pulse Ox O2 Delivery O2 Flow Rate FiO2 04/19/19 12:00 4.0 28 04/19/19 12:00 97.9 78 18 136/80 (98) 96 04/19/19 09:00 Nasal Cannula 4.0 04/19/19 08:39 79 160/91 04/19/19 08:38 79 04/19/19 08:37 79 160/91 04/19/19 08:00 97.7 79 20 160/91 (114) 95 04/19/19 08:00 4.0 28 04/19/19 04:00 97.8 78 21 138/73 (94) 97 04/19/19 04:00 78 04/19/19 04:00 4.0 28 04/19/19 03:56 71 19 96 Facial 30 04/19/19 00:00 98.0 64 18 140/85 (103) 97 04/19/19 00:00 64 04/18/19 21:00 Nasal Cannula 4.0 04/18/19 20:04 95 Nasal Cannula 4.0 36 04/18/19 20:00 4.0 04/18/19 20:00 56 04/18/19 20:00 98.1 56 20 158/83 (108) 92 04/18/19 18:54 98.1 04/18/19 18:00 61 139/76 04/18/19 16:20 4.0 04/18/19 16:00 98.1 61 18 139/76 (97) 96 04/18/19 15:05 65 12/16/19 14:24 98.6 Height (Feet): 5 Height (Inches): 10.00 Weight (Pounds): 402 General Appearance: other - obese Respiratory/Chest: decreased breath sounds Cardiovascular: normal rate Abdomen: soft, non tender Extremities: other - edema of legs Skin: other - hyperkratosis of legs Neurologic/Psychiatric: alert, oriented x 3, responsive Microbiology Date/Time Source Procedure Growth Status 04/18/19 02:43 Sputum Gram Stain Pending Resulted 04/18/19 02:43 Sputum Sputum Culture - Preliminary NORMAL UPPER RESPIRATORY WILLI AT 24 ... Resulted Current Medications Medications (Trade) Dose Ordered Sig/David Route PRN Reason Start Time Stop Time Status Last Admin Dose Admin Acetaminophen (Tylenol) 650 mg Q6H PRN ORAL Mild Pain/Temp > 100.5 04/12/19 12:30 05/08/19 18:27 Acetazolamide (Diamox) 250 mg DAILY ORAL 04/13/19 09:00 05/10/19 11:59 04/19/19 08:36 Apixaban (Eliquis) 5 mg BID ORAL 04/12/19 18:00 05/11/19 17:59 04/19/19 08:36 Aspirin (ASA) 81 mg DAILY ORAL 04/13/19 09:00 05/06/19 08:59 04/19/19 08:36 Atorvastatin Calcium (Lipitor) 40 mg BEDTIME ORAL 04/12/19 21:00 05/06/19 20:59 04/18/19 20:34 Clonidine HCl (Catapres Tab) 0.1 mg Q4H PRN ORAL bp over 165 syst 04/12/19 11:45 05/08/19 11:44 04/15/19 04:37 Digoxin (Lanoxin) 0.25 mg DAILY ORAL 04/13/19 09:00 05/11/19 08:59 04/19/19 08:38 Diltiazem HCl (Cardizem CD) 360 mg DAILY ORAL 04/14/19 09:00 05/14/19 08:59 04/19/19 08:39 Docusate Sodium (Colace) 100 mg THREE TIMES A DAY ORAL 04/12/19 13:00 05/09/19 08:59 04/19/19 13:11 Doxycycline Monohydrate (Doxycycline Monohydrate) 100 mg EVERY 12 HOURS ORAL 04/16/19 21:00 04/23/19 20:59 04/19/19 08:36 Folic Acid (Folate) 1 mg DAILY ORAL 04/13/19 09:00 05/10/19 10:59 04/19/19 08:39 Furosemide (Lasix) 80 mg Q12HR@0600,1800 IV 04/12/19 18:00 05/08/19 17:59 04/19/19 05:46 Gabapentin (Neurontin) 600 mg BID ORAL 04/12/19 18:00 05/06/19 17:59 04/19/19 08:38 Guaifenesin/ Dextromethorphan (Robitussin DM Syrup) 5 ml Q4H PRN ORAL For Cough 04/12/19 11:30 05/10/19 19:29 04/16/19 11:49 Metoprolol Tartrate (Lopressor) 25 mg BID ORAL 04/14/19 11:30 05/14/19 11:29 04/19/19 08:37 Morphine Sulfate (Morphine Sulfate) 1 mg Q6H PRN IVP Breakthrough Pain 04/18/19 08:48 04/25/19 08:47 04/19/19 11:44 Ondansetron HCl (Zofran) 4 mg Q6H PRN IVP Nausea & Vomiting 04/12/19 11:45 05/08/19 11:44 Oxycodone/ Acetaminophen (Percocet 5-325) 1 tab Q4H PRN ORAL Severe Pain (Pain Scale 7-10) 04/18/19 08:49 04/25/19 08:48 04/18/19 18:09 Pantoprazole (Protonix) 40 mg EVERY 12 HOURS ORAL 04/12/19 21:00 05/09/19 08:59 04/19/19 08:39 Piperacillin Sod/ Tazobactam Sod 3.375 gm/Sodium Chloride 110 ml @ 27.5 mls/hr Q8HR IVPB 04/16/19 21:00 04/23/19 20:59 04/19/19 13:11 Potassium Chloride (K-Dur) 40 meq BID ORAL 04/12/19 18:00 05/06/19 08:59 04/19/19 08:39 Prednisone (predniSONE) 20 mg DAILY ORAL 04/17/19 09:00 1/13/20 08:59 04/19/19 08:39 Bill Pak MD Apr 19, 2019 13:30
[2019-04-19 15:56] VITALS: BP 133/80
--- NOTE | 2019-04-19 19:28 | NUR ---
HAND-OFF: Report given to KEESHA Correa. Endorsed plan of care.
--- NOTE | 2019-04-19 19:51 | NUR ---
NURSE NOTES: RECEIVED PATIENT SITTING IN BED, NO COMPLAINTS OF PAIN AT THIS TIME. FALL PRECAUTIONS IN PLACE: CALL LIGHT, BEDSIDE TABLE AND URINAL WITHIN REACH, BED IN LOW POSITION. PLAN OF CARE REVIEWED.
[2019-04-19 20:00] VITALS: BP 137/83
[2019-04-19] MEDS: Atorvastatin 20mg tab ORAL SCH (20:25)
--- NOTE | 2019-04-19 20:55 | General Progress Note ---
Assessment/Plan Problem List: (1) Hypokalemia ICD Codes: E87.6 - Hypokalemia SNOMED: 22640072 (2) CHF (congestive heart failure) ICD Codes: I50.9 - Heart failure, unspecified SNOMED: 72571572 (3) Lower back pain ICD Codes: M54.5 - Low back pain SNOMED: 948819023 Status: progressing Assessment/Plan: check lytes afebrile no wheezing azotemia is stable sleep apnea pleural effusion chf improving morbid obesity Subjective ROS Limited/Unobtainable: Yes Allergies: Coded Allergies: RIVAROXABAN (Verified Allergy, Unknown, 04/05/19) Objective Last 24 Hour Vital Signs Date Time Temp Pulse Resp B/P (MAP) Pulse Ox O2 Delivery O2 Flow Rate FiO2 04/19/19 18:09 66 133/80 04/19/19 16:00 66 04/19/19 15:56 4.0 28 04/19/19 15:56 98.6 80 20 133/80 (97) 95 04/19/19 12:00 4.0 28 04/19/19 12:00 97.9 78 18 136/80 (98) 96 04/19/19 12:00 76 04/19/19 09:00 Nasal Cannula 4.0 04/19/19 08:39 79 160/91 04/19/19 08:38 79 04/19/19 08:37 79 160/91 04/19/19 08:00 97.7 79 20 160/91 (114) 95 04/19/19 08:00 4.0 28 04/19/19 04:00 97.8 78 21 138/73 (94) 97 04/19/19 04:00 78 04/19/19 04:00 4.0 28 04/19/19 03:56 71 19 96 Facial 30 04/19/19 00:00 98.0 64 18 140/85 (103) 97 04/19/19 00:00 64 04/18/19 21:00 Nasal Cannula 4.0 Intake and Output 04/18/19 04/19/19 19:00 07:00 Intake Total 1200 ml 1300 ml Output Total 3280 ml 1600 ml Balance -2080 ml -300 ml Intake Oral 1200 ml 1300 ml Output Urine Total 3280 ml 1600 ml # Voids 3 Height (Feet): 5 Height (Inches): 10.00 Weight (Pounds): 402 Cardiovascular: normal peripheral pulses Respiratory/Chest: lungs clear Abdomen: soft Brodie De Jesus MD Apr 19, 2019 20:55
[2019-04-20] VITALS: BP 123/65
[2019-04-20] MEDS: Morphine Sulfate 2mg/ml Inj(IV/IM USE ONLY) IVP PRN ×3 (00:30→22:14)
[2019-04-20] MEDS: Piperacillin/Tazobactam 3.375 GM in NS 110 ML IVPB SCH ×4 (00:31→16:43)
[2019-04-20 04:00] VITALS: BP 135/74
--- NOTE | 2019-04-20 07:14 | NUR ---
HAND-OFF: Report given to KEESHA WATTERS. PATIENT RESTING IN BED, NO SIGNS OF DISTRESS NOTED.
--- NOTE | 2019-04-20 07:15 | NUR ---
NURSE NOTES: Received patient from KEESHA Correa sitting at the edge of the bed resting, denies any pain at this time, No s/s of respiratory distress and no shortness of breath noted. IV site on left fore arm is intact and patent. Bed is in lowest position, bedside rails up x2. Will continue with the plan of care.
[2019-04-20 07:37] LABS: BASOPHILS % (AUTO) 0.5 % (0.0-2.0); EOSINOPHILS % (AUTO) 1.5 % (0.0-3.0); HEMATOCRIT 44.7 % (42.0-52.0); HEMOGLOBIN 14.1 G/DL (14.2-18.0); LYMPHOCYTES % (AUTO) 14.1 % (20.0-45.0); MEAN CORPUSCULAR VOLUME 80 FL (80-99); MONOCYTES % (AUTO) 7.7 % (1.0-10.0); NEUTROPHILS % (AUTO) 76.2 % (45.0-75.0); PLATELET COUNT 188 K/UL (150-450); RED BLOOD COUNT 5.57 M/UL (4.70-6.10); RED CELL DISTRIBUTION WIDTH 17.1 % (11.6-14.8); WHITE BLOOD COUNT 16.9 K/UL (4.8-10.8)
[2019-04-20 08:00] VITALS: BP 126/66
--- NOTE | 2019-04-20 08:48 | General Progress Note ---
Assessment/Plan Assessment/Plan: (1) Lumbar DDD (2) Lumbar Spondylosis (3) Morbid obesity Patient to be continued on Percocet and Morphine Parameters will be continued D/w Dr. Stack and he concurred. Subjective Date patient seen: Apr 20, 2019 Time patient seen: 08:00 - am Allergies: Coded Allergies: RIVAROXABAN (Verified Allergy, Unknown, 04/05/19) Subjective REVIEW OF SYSTEMS: Denies rash, fever, chills at this time, sweating, dizziness, drowsiness, blurred vision, sore throat, change in weight. No nausea, vomiting, diarrhea, or blood in the stool or urine. No dysuria. He is complaining of low back pain. SUBJECTIVE: Patient reports that his pain has been tolerated on the morphine and percocet. At this time has no new complaints. Objective Last 24 Hour Vital Signs Date Time Temp Pulse Resp B/P (MAP) Pulse Ox O2 Delivery O2 Flow Rate FiO2 04/20/19 08:01 95 Nasal Cannula 4.0 36 04/20/19 05:00 71 17 100 Facial 30 04/20/19 04:00 64 04/20/19 04:00 28 04/20/19 04:00 98.6 64 18 135/74 (94) 97 04/20/19 03:03 74 19 99 Facial 30 04/20/19 01:30 72 19 97 Facial 30 04/20/19 00:00 69 04/20/19 00:00 98.4 65 20 123/65 (84) 99 04/19/19 21:00 Nasal Cannula 4.0 04/19/19 20:00 4.0 04/19/19 20:00 69 04/19/19 20:00 98.1 67 20 137/83 (101) 96 04/19/19 19:01 97 Nasal Cannula 4.0 36 04/19/19 18:09 66 133/80 04/19/19 16:00 66 04/19/19 15:56 4.0 28 04/19/19 15:56 98.6 80 20 133/80 (97) 95 04/19/19 12:00 4.0 28 04/19/19 12:00 97.9 78 18 136/80 (98) 96 04/19/19 12:00 76 04/19/19 09:00 Nasal Cannula 4.0 Intake and Output 04/19/19 04/20/19 18:59 06:59 Intake Total 360 ml 470.0 ml Output Total 1400 ml 2800 ml Balance -1040 ml -2330.0 ml Intake Oral 360 ml 360 ml IV Total 110.0 ml Output Urine Total 1400 ml 2800 ml # Voids 1 # Bowel Movements 1 Laboratory Tests 04/20/19 07:16: White Blood Count 16.9H, Red Blood Count 5.57, Hemoglobin 14.1L, Hematocrit 44.7 , Mean Corpuscular Volume 80, Mean Corpuscular Hemoglobin 25.3L, Mean Corpuscular Hemoglobin Concent 31.5L, Red Cell Distribution Width 17.1H, Platelet Count 188, Mean Platelet Volume 10.0, Neutrophils (%) (Auto) 76.2H, Lymphocytes (%) (Auto) 14.1L, Monocytes (%) (Auto) 7.7, Eosinophils (%) (Auto) 1.5, Basophils (%) (Auto) 0.5 Height (Feet): 5 Height (Inches): 10.00 Weight (Pounds): 411 Objective GENERAL: Alert, awake, and oriented. LUNGS: Decreased breath sounds bilaterally. HEART: S1 and S2 regular. ABDOMEN: Obese.. EXTREMITIES: No cyanosis. No clubbing. NEURO: No changes. Osito Sultana Apr 20, 2019 08:48
[2019-04-20] MEDS: Docusate 100mg cap ORAL SCH ×3 (08:55→17:41)
[2019-04-20] MEDS: Doxycycline Monohydrate 100mg ORAL SCH ×2 (08:56→20:33)
[2019-04-20] MEDS: Aspirin Baby 81mg ORAL SCH (08:56)
[2019-04-20] MEDS: dilTIAZem HCl CD 180mg cap ORAL SCH (08:56)
[2019-04-20] MEDS: Eliquis 5mg tablet ORAL SCH ×2 (08:58→17:41)
--- NOTE | 2019-04-20 10:34 | NUR ---
RD ASSESSMENT & RECOMMENDATIONS SEE CARE ACTIVITY FOR COMPLETE ASSESSMENT DAILY ESTIMATED NEEDS: Needs based on Cardiac, Pulmonary, morbid obese; 103kg adj 20-25 kcals/kg 0- 2575 total kcals 1-1.5 g protein/kg 103- 155 g total protein Fluid per MD- CHF on lasix mL/kg total fluid mLs NUTRITION DIAGNOSIS: * Decreased kcal, fat and sodium needs r/t obesity and CHF AEB pt is 248% of [place] Body Weight, morbidly obese per guidelines, elev BNP (1183-> 187), elev LDL (112), edematous, elev BPs. * Altered nutrition related lab values R/T pre-diabetes, on steroidal med as evidenced by elev BGs (123 187 152 204), A1C of 6.1, pt on prednisone. CURRENT DIET:Cardiac PO DIET RECOMMENDATIONS: Cardiac, [facility] MED + fluid per MD ADDITIONAL RECOMMENDATIONS: 1) Daily weights; pt w/ CHF, on lasix 2) monitor lytes daily- on lasix 3) monitor BG values- on solumedrol, A1C of 6.1 -> rec carb controlled diet (add [facility] MED to diet order) -> rec NISS 4) 1L fluid restriction per MD
--- NOTE | 2019-04-20 10:35 | NUR ---
CASE MANAGEMENT:REVIEW 04/20/19 SI: CHF. COPD . LOW BACK PAIN . 97.7 79 20 160/91 95 % ON 4L/NC ; FI02 28 WBC 16.9 CO2 34 BUN 43 CREAT 1.5 BG 123 CA+ 8.4 IS: IV ZOSYN Q8HR IV LASIX BID DOXYCYCLINE PO BID K-DUR PO BID PREDNISONE PO QD LOPRESSOR PO BID CARDIZEM PO QD CLONIDINE Q4/PRN DIGOXIN PO QD DIAMOX PO QD ROBITUSSIN PO Q4/PRN FOLATE PO QD LIPITOR PO QHS PROTONIX PO Q12 ASA PO QD NEURONTIN PO BID IV MORPHINE Q6HR : 2E TELE UNIT DCP: FROM HOME PLAN: UNCHANGED CXR- PULMONARY EDEMA VS INFECTIOUS /INFLAMMATION PROSSES/ LOW LUNG VOLUME
[2019-04-20 12:00] VITALS: BP 136/84
--- NOTE | 2019-04-20 12:11 | Pulmonology Progress Note ---
Assessment/Plan Assessment/Plan Pulmonary Progress Note HPI The patient is a 48-year-old man with history of obesity and Congestive Heart Failure, admitted with chest pain, shortness of breath, fevers and chills as well as sore throat and ear pain. Denies cough or sputum production, vomiting or diarrhea H/o Afib on AC, h/o NATASHA on CPAP Less SOB, using BiPAP at night and PRN, up in chair, no current ear pain On IV antibiotics for possible Pneumonia, persistent Leukocytosis CXR no change, bilateral basal atelectasis Past Medical History: Obesity, Congestive Heart Failure, Chronic Obstructive Pulmonary Disease, Diabetes, Hypertension, NATASHA, Obesity Allergies: RIVAROXABAN All Other Systems: negative except mentioned in HPI Physical Exam Vital Signs Noted General: Awake and alert, no acute distress, obese HEENT: NC/AT. EOMI. tympanic membranes are erythematous, moist mm Cardiovascular: RRR. S1 and S2 normal. No murmur appreciated. Mild edema noted Resp: Normal work of breathing. CTAB Abdomen: Abdomen is soft, nondistended. Nontender Skin: Intact. No abrasions, laceration or rash over the exposed skin Extremities: Normal tone and bulk. Moving all extremities. No obvious deformity. Neuro: Awake and alert. Mentating appropriately. 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 No ST segment changes. Normal intervals CXR: Low lung volumes with persistent hazy opacities in right greater than left lungs which may represent pulmonary edema versus infectious/inflammatory process. Subjective ROS Limited/Unobtainable: No Allergies: Coded Allergies: RIVAROXABAN (Verified Allergy, Unknown, 04/05/19) Objective Last 24 Hour Vital Signs Date Time Temp Pulse Resp B/P (MAP) Pulse Ox O2 Delivery O2 Flow Rate FiO2 04/20/19 09:00 Nasal Cannula 4.0 04/20/19 08:58 92 126/66 04/20/19 08:57 92 04/20/19 08:56 92 126/66 04/20/19 08:01 95 Nasal Cannula 4.0 36 04/20/19 08:00 85 04/20/19 08:00 97.0 85 20 126/66 (86) 96 04/20/19 08:00 28 04/20/19 05:00 71 17 100 Facial 30 04/20/19 04:00 64 04/20/19 04:00 28 04/20/19 04:00 98.6 64 18 135/74 (94) 97 04/20/19 03:03 74 19 99 Facial 30 04/20/19 01:30 72 19 97 Facial 30 04/20/19 00:00 69 04/20/19 00:00 98.4 65 20 123/65 (84) 99 04/19/19 21:00 Nasal Cannula 4.0 04/19/19 20:00 4.0 04/19/19 20:00 69 04/19/19 20:00 98.1 67 20 137/83 (101) 96 04/19/19 19:01 97 Nasal Cannula 4.0 36 04/19/19 18:09 66 133/80 04/19/19 16:00 66 04/19/19 15:56 4.0 28 04/19/19 15:56 98.6 80 20 133/80 (97) 95 Intake and Output 04/19/19 04/20/19 19:00 07:00 Intake Total 360 ml 470.0 ml Output Total 1400 ml 2800 ml Balance -1040 ml -2330.0 ml Intake Oral 360 ml 360 ml IV Total 110.0 ml Output Urine Total 1400 ml 2800 ml # Voids 1 # Bowel Movements 1 Microbiology Date/Time Source Procedure Growth Status 04/18/19 02:43 Sputum Gram Stain - Final Complete 04/18/19 02:43 Sputum Sputum Culture - Final NORMAL UPPER RESPIRATORY WILLI PRESENT Complete Laboratory Tests 04/20/19 07:16: White Blood Count 16.9H, Red Blood Count 5.57, Hemoglobin 14.1L, Hematocrit 44.7 , Mean Corpuscular Volume 80, Mean Corpuscular Hemoglobin 25.3L, Mean Corpuscular Hemoglobin Concent 31.5L, Red Cell Distribution Width 17.1H, Platelet Count 188, Mean Platelet Volume 10.0, Neutrophils (%) (Auto) 76.2H, Lymphocytes (%) (Auto) 14.1L, Monocytes (%) (Auto) 7.7, Eosinophils (%) (Auto) 1.5, Basophils (%) (Auto) 0.5 Current Medications Medications (Trade) Dose Ordered Sig/David Route PRN Reason Start Time Stop Time Status Last Admin Dose Admin Acetaminophen (Tylenol) 650 mg Q6H PRN ORAL Mild Pain/Temp > 100.5 04/12/19 12:30 05/08/19 18:27 Acetazolamide (Diamox) 250 mg DAILY ORAL 04/13/19 09:00 05/10/19 11:59 04/20/19 08:56 Apixaban (Eliquis) 5 mg BID ORAL 04/12/19 18:00 05/11/19 17:59 04/20/19 08:58 Aspirin (ASA) 81 mg DAILY ORAL 04/13/19 09:00 05/06/19 08:59 04/20/19 08:56 Atorvastatin Calcium (Lipitor) 40 mg BEDTIME ORAL 04/12/19 21:00 05/06/19 20:59 04/19/19 20:25 Clonidine HCl (Catapres Tab) 0.1 mg Q4H PRN ORAL bp over 165 syst 04/12/19 11:45 05/08/19 11:44 04/15/19 04:37 Digoxin (Lanoxin) 0.25 mg DAILY ORAL 04/13/19 09:00 05/11/19 08:59 04/20/19 08:57 Diltiazem HCl (Cardizem CD) 360 mg DAILY ORAL 04/14/19 09:00 05/14/19 08:59 04/20/19 08:56 Docusate Sodium (Colace) 100 mg THREE TIMES A DAY ORAL 04/12/19 13:00 05/09/19 08:59 04/20/19 08:55 Doxycycline Monohydrate (Doxycycline Monohydrate) 100 mg EVERY 12 HOURS ORAL 04/16/19 21:00 04/23/19 20:59 04/20/19 08:56 Folic Acid (Folate) 1 mg DAILY ORAL 04/13/19 09:00 05/10/19 10:59 04/20/19 08:56 Furosemide (Lasix) 80 mg Q12HR@0600,1800 IV 04/12/19 18:00 05/08/19 17:59 04/20/19 05:47 Gabapentin (Neurontin) 600 mg BID ORAL 04/12/19 18:00 05/06/19 17:59 04/20/19 08:57 Guaifenesin/ Dextromethorphan (Robitussin DM Syrup) 5 ml Q4H PRN ORAL For Cough 04/12/19 11:30 05/10/19 19:29 04/16/19 11:49 Metoprolol Tartrate (Lopressor) 25 mg BID ORAL 04/14/19 11:30 05/14/19 11:29 04/20/19 08:58 Morphine Sulfate (Morphine Sulfate) 1 mg Q6H PRN IVP Breakthrough Pain 04/18/19 08:48 04/25/19 08:47 04/20/19 06:26 Ondansetron HCl (Zofran) 4 mg Q6H PRN IVP Nausea & Vomiting 04/12/19 11:45 05/08/19 11:44 Oxycodone/ Acetaminophen (Percocet 5-325) 1 tab Q4H PRN ORAL Severe Pain (Pain Scale 7-10) 04/18/19 08:49 04/25/19 08:48 04/18/19 18:09 Pantoprazole (Protonix) 40 mg EVERY 12 HOURS ORAL 04/12/19 21:00 05/09/19 08:59 04/20/19 08:56 Piperacillin Sod/ Tazobactam Sod 3.375 gm/Sodium Chloride 110 ml @ 27.5 mls/hr Q8H IVPB 04/20/19 08:00 04/27/19 07:59 04/20/19 08:00 Potassium Chloride (K-Dur) 40 meq BID ORAL 04/12/19 18:00 05/06/19 08:59 04/20/19 08:55 Prednisone (predniSONE) 20 mg DAILY ORAL 04/17/19 09:00 05/16/19 08:59 04/20/19 08:57 Mahesh Wise MD Apr 20, 2019 12:11
[2019-04-20] MEDS: oxyCODONE HCL/Acetaminophen 5/325mg ORAL PRN (13:50)
--- NOTE | 2019-04-20 14:24 | Infectious Diseases Prog Note ---
Assessment/Plan Assessment/Plan IMPRESSION: 1. Leukocytosis,improving. 2. Pulmonary edema/pneumonia & atelectasis 3. Diastolic CHF. 4. VRE colonization. 5. Morbid obesity. 6. COPD with hypercapnic hypoxemic respiratory failure. 7. Hypertension. 8. Hyperkalemia, likely chronic kidney disease. RECOMMENDATIONS: Continue antibiotics, Zosyn and doxycycline X 2 days Taper steroids. Subjective ROS Limited/Unobtainable: No Constitutional: Denies: fever Respiratory: Reports: shortness of breath, dry cough Cardiovascular: Reports: no symptoms Gastrointestinal/Abdominal: Reports: no symptoms Genitourinary: Reports: no symptoms Allergies: Coded Allergies: RIVAROXABAN (Verified Allergy, Unknown, 04/05/19) Objective Vital Signs Last 24 Hour Vital Signs Date Time Temp Pulse Resp B/P (MAP) Pulse Ox O2 Delivery O2 Flow Rate FiO2 04/20/19 12:00 97.7 94 20 136/84 (101) 96 04/20/19 12:00 28 04/20/19 09:00 Nasal Cannula 4.0 04/20/19 08:58 92 126/66 04/20/19 08:57 92 04/20/19 08:56 92 126/66 04/20/19 08:01 95 Nasal Cannula 4.0 36 04/20/19 08:00 85 04/20/19 08:00 97.0 85 20 126/66 (86) 96 04/20/19 08:00 28 04/20/19 05:00 71 17 100 Facial 30 04/20/19 04:00 64 04/20/19 04:00 28 04/20/19 04:00 98.6 64 18 135/74 (94) 97 04/20/19 03:03 74 19 99 Facial 30 04/20/19 01:30 72 19 97 Facial 30 04/20/19 00:00 69 04/20/19 00:00 98.4 65 20 123/65 (84) 99 04/19/19 21:00 Nasal Cannula 4.0 04/19/19 20:00 4.0 04/19/19 20:00 69 04/19/19 20:00 98.1 67 20 137/83 (101) 96 04/19/19 19:01 97 Nasal Cannula 4.0 36 04/19/19 18:09 66 133/80 04/19/19 16:00 66 04/19/19 15:56 4.0 28 04/19/19 15:56 98.6 80 20 133/80 (97) 95 Height (Feet): 5 Height (Inches): 10.00 Weight (Pounds): 411 General Appearance: no acute distress HEENT: mucous membranes moist Respiratory/Chest: lungs clear Cardiovascular: normal peripheral pulses Abdomen: soft, non tender Extremities: other - edema of legs Neurologic/Psychiatric: alert, oriented x 3, responsive Microbiology Date/Time Source Procedure Growth Status 04/18/19 02:43 Sputum Gram Stain - Final Complete 04/18/19 02:43 Sputum Sputum Culture - Final NORMAL UPPER RESPIRATORY WILLI PRESENT Complete Laboratory Tests Test 04/20/19 07:16 White Blood Count 16.9 K/UL (4.8-10.8) H Red Blood Count 5.57 M/UL (4.70-6.10) Hemoglobin 14.1 G/DL (14.2-18.0) L Hematocrit 44.7 % (42.0-52.0) Mean Corpuscular Volume 80 FL (80-99) Mean Corpuscular Hemoglobin 25.3 PG (27.0-31.0) L Mean Corpuscular Hemoglobin Concent 31.5 G/DL (32.0-36.0) L Red Cell Distribution Width 17.1 % (11.6-14.8) H Platelet Count 188 K/UL (150-450) Mean Platelet Volume 10.0 FL (6.5-10.1) Neutrophils (%) (Auto) 76.2 % (45.0-75.0) H Lymphocytes (%) (Auto) 14.1 % (20.0-45.0) L Monocytes (%) (Auto) 7.7 % (1.0-10.0) Eosinophils (%) (Auto) 1.5 % (0.0-3.0) Basophils (%) (Auto) 0.5 % (0.0-2.0) Current Medications Medications (Trade) Dose Ordered Sig/David Route PRN Reason Start Time Stop Time Status Last Admin Dose Admin Acetaminophen (Tylenol) 650 mg Q6H PRN ORAL Mild Pain/Temp > 100.5 04/12/19 12:30 05/08/19 18:27 Acetazolamide (Diamox) 250 mg DAILY ORAL 04/13/19 09:00 05/10/19 11:59 04/20/19 08:56 Apixaban (Eliquis) 5 mg BID ORAL 04/12/19 18:00 05/11/19 17:59 04/20/19 08:58 Aspirin (ASA) 81 mg DAILY ORAL 04/13/19 09:00 05/06/19 08:59 04/20/19 08:56 Atorvastatin Calcium (Lipitor) 40 mg BEDTIME ORAL 04/12/19 21:00 05/06/19 20:59 04/19/19 20:25 Clonidine HCl (Catapres Tab) 0.1 mg Q4H PRN ORAL bp over 165 syst 04/12/19 11:45 05/08/19 11:44 04/15/19 04:37 Digoxin (Lanoxin) 0.25 mg DAILY ORAL 04/13/19 09:00 05/11/19 08:59 04/20/19 08:57 Diltiazem HCl (Cardizem CD) 360 mg DAILY ORAL 04/14/19 09:00 05/14/19 08:59 04/20/19 08:56 Docusate Sodium (Colace) 100 mg THREE TIMES A DAY ORAL 04/12/19 13:00 05/09/19 08:59 04/20/19 13:19 Doxycycline Monohydrate (Doxycycline Monohydrate) 100 mg EVERY 12 HOURS ORAL 04/16/19 21:00 04/23/19 20:59 04/20/19 08:56 Folic Acid (Folate) 1 mg DAILY ORAL 04/13/19 09:00 05/10/19 10:59 04/20/19 08:56 Furosemide (Lasix) 80 mg Q12HR@0600,1800 IV 04/12/19 18:00 05/08/19 17:59 04/20/19 05:47 Gabapentin (Neurontin) 600 mg BID ORAL 04/12/19 18:00 05/06/19 17:59 04/20/19 08:57 Guaifenesin/ Dextromethorphan (Robitussin DM Syrup) 5 ml Q4H PRN ORAL For Cough 04/12/19 11:30 05/10/19 19:29 04/16/19 11:49 Metoprolol Tartrate (Lopressor) 25 mg BID ORAL 04/14/19 11:30 05/14/19 11:29 04/20/19 08:58 Morphine Sulfate (Morphine Sulfate) 1 mg Q6H PRN IVP Breakthrough Pain 04/18/19 08:48 04/25/19 08:47 04/20/19 06:26 Ondansetron HCl (Zofran) 4 mg Q6H PRN IVP Nausea & Vomiting 04/12/19 11:45 05/08/19 11:44 Oxycodone/ Acetaminophen (Percocet 5-325) 1 tab Q4H PRN ORAL Severe Pain (Pain Scale 7-10) 04/18/19 08:49 04/25/19 08:48 04/20/19 13:50 Pantoprazole (Protonix) 40 mg EVERY 12 HOURS ORAL 04/12/19 21:00 05/09/19 08:59 04/20/19 08:56 Piperacillin Sod/ Tazobactam Sod 3.375 gm/Sodium Chloride 110 ml @ 27.5 mls/hr Q8H IVPB 04/20/19 08:00 04/27/19 07:59 04/20/19 08:00 Potassium Chloride (K-Dur) 40 meq BID ORAL 04/12/19 18:00 05/06/19 08:59 04/20/19 08:55 Prednisone (predniSONE) 20 mg DAILY ORAL 04/17/19 09:00 05/16/19 08:59 04/20/19 08:57 Bill Pak MD Apr 20, 2019 14:24
--- NOTE | 2019-04-20 15:24 | Nephrology Progress Note ---
Assessment/Plan Problem List: (1) Hypokalemia (2) CHF (congestive heart failure) (3) Renal failure (4) Obesity, morbid, BMI 50 or higher (5) CO2 retention (6) COPD (chronic obstructive pulmonary disease) Assessment elevated Cr likely due to diuresis Obesity , NATASHA AT fib with FVR HTN Congestive heart failure, likely diastolic dysfunction. EF 60% Recurrent NSVT. No syncope. Hypertension. Morbid obesity. COPD. Lipidemia. Plan high WBCs ? steroids related Cr rising Keep BP in check Monitor lytes B12 and Folic acid Diamox PO per orders per cardio and pulmonary taper steroids as possible Subjective ROS Limited/Unobtainable: No Constitutional: Reports: malaise Objective Objective Last 24 Hour Vital Signs Date Time Temp Pulse Resp B/P (MAP) Pulse Ox O2 Delivery O2 Flow Rate FiO2 04/20/19 12:00 97.7 94 20 136/84 (101) 96 04/20/19 12:00 28 04/20/19 09:00 Nasal Cannula 4.0 04/20/19 08:58 92 126/66 04/20/19 08:57 92 04/20/19 08:56 92 126/66 04/20/19 08:01 95 Nasal Cannula 4.0 36 04/20/19 08:00 85 04/20/19 08:00 97.0 85 20 126/66 (86) 96 04/20/19 08:00 28 04/20/19 05:00 71 17 100 Facial 30 04/20/19 04:00 64 04/20/19 04:00 28 04/20/19 04:00 98.6 64 18 135/74 (94) 97 04/20/19 03:03 74 19 99 Facial 30 04/20/19 01:30 72 19 97 Facial 30 04/20/19 00:00 69 04/20/19 00:00 98.4 65 20 123/65 (84) 99 04/19/19 21:00 Nasal Cannula 4.0 04/19/19 20:00 4.0 04/19/19 20:00 69 04/19/19 20:00 98.1 67 20 137/83 (101) 96 04/19/19 19:01 97 Nasal Cannula 4.0 36 04/19/19 18:09 66 133/80 04/19/19 16:00 66 04/19/19 15:56 4.0 28 04/19/19 15:56 98.6 80 20 133/80 (97) 95 Intake and Output 04/19/19 04/20/19 19:00 07:00 Intake Total 360 ml 470.0 ml Output Total 1400 ml 2800 ml Balance -1040 ml -2330.0 ml Intake Oral 360 ml 360 ml IV Total 110.0 ml Output Urine Total 1400 ml 2800 ml # Voids 1 # Bowel Movements 1 Laboratory Tests 04/20/19 07:16: White Blood Count 16.9H, Red Blood Count 5.57, Hemoglobin 14.1L, Hematocrit 44.7 , Mean Corpuscular Volume 80, Mean Corpuscular Hemoglobin 25.3L, Mean Corpuscular Hemoglobin Concent 31.5L, Red Cell Distribution Width 17.1H, Platelet Count 188, Mean Platelet Volume 10.0, Neutrophils (%) (Auto) 76.2H, Lymphocytes (%) (Auto) 14.1L, Monocytes (%) (Auto) 7.7, Eosinophils (%) (Auto) 1.5, Basophils (%) (Auto) 0.5 Height (Feet): 5 Height (Inches): 10.00 Weight (Pounds): 411 General Appearance: no apparent distress, lethargic Neck: limited range of motion Cardiovascular: tachycardia Respiratory/Chest: decreased breath sounds Abdomen: distended Objective no change Bebeto Yin MD Apr 20, 2019 15:24
[2019-04-20 16:00] VITALS: BP_SYST 135; BP_SYST 137; BP_DIAS 73; BP_DIAS 74
--- NOTE | 2019-04-20 18:10 | Hematology/Onc Progress Note ---
Assessment/Plan Assessment/Plan Assessment and Recs: # Secondary hypercoagulable disorder, has afib with rvr, w/u as per cards --> initially on heparin gtt --> NOW OFF --> cardizem po started for rhythm control --> per cards agree with apixaban # Leukocytosis is likely due to steroid use --> wbc trend 15-->20k-->18-->19-->22-->21.1-->12.9 --> steroid taper --> abx as per id --> zosyn # Hypokalemia --> per renal, replete k as needed, per [place] --> diuresis prn # CHF (congestive heart failure) v copd exacerbation --> on lasix bid dosing, per cards --> bipap afterload reduction # Obesity --> weight loss recommended --> lifestyle modification # Afib with rvr per cards --> on apixban --> rate control/rhythm # Dvt ppx apix DW Rn and appreciate consultation. Subjective Allergies: Coded Allergies: RIVAROXABAN (Verified Allergy, Unknown, 04/05/19) Subjective 04/11: remains on diltz and heparin gtt, oon bipap o/n 04/12: bipap overnight and 2lnc, as per cards on apixaban, still bp high 04/13: transferred to tele, awake and alert, no acute events, cbc ordered 04/14: Dr. Doll aware, afib with rvr, is on dig / cardizem, now nsr, no bleeding 04/15: wbc remains higher but likely due to steroids, refusing fluid restriction 04/17: awake and alert, cxr w/ opacities, on abx, nc 4L 04/18: noncompliant with fluid restriction, no bleeding, no night sweats 04/19: resting, no events, bipap overnight, seen by Howard 04/20: awake and alert, no acute events, cxr unchanged Objective Objective Current Medications Medications (Trade) Dose Ordered Sig/David Route PRN Reason Start Time Stop Time Status Last Admin Dose Admin Acetaminophen (Tylenol) 650 mg Q6H PRN ORAL Mild Pain/Temp > 100.5 04/12/19 12:30 05/08/19 18:27 Acetazolamide (Diamox) 250 mg DAILY ORAL 04/13/19 09:00 05/10/19 11:59 04/20/19 08:56 Apixaban (Eliquis) 5 mg BID ORAL 04/12/19 18:00 05/11/19 17:59 04/20/19 17:41 Aspirin (ASA) 81 mg DAILY ORAL 04/13/19 09:00 05/06/19 08:59 04/20/19 08:56 Atorvastatin Calcium (Lipitor) 40 mg BEDTIME ORAL 04/12/19 21:00 05/06/19 20:59 04/19/19 20:25 Clonidine HCl (Catapres Tab) 0.1 mg Q4H PRN ORAL bp over 165 syst 04/12/19 11:45 05/08/19 11:44 04/15/19 04:37 Digoxin (Lanoxin) 0.25 mg DAILY ORAL 04/13/19 09:00 05/11/19 08:59 04/20/19 08:57 Diltiazem HCl (Cardizem CD) 360 mg DAILY ORAL 04/14/19 09:00 05/14/19 08:59 04/20/19 08:56 Docusate Sodium (Colace) 100 mg THREE TIMES A DAY ORAL 04/12/19 13:00 05/09/19 08:59 04/20/19 17:41 Doxycycline Monohydrate (Doxycycline Monohydrate) 100 mg EVERY 12 HOURS ORAL 04/16/19 21:00 04/23/19 20:59 04/20/19 08:56 Folic Acid (Folate) 1 mg DAILY ORAL 04/13/19 09:00 05/10/19 10:59 04/20/19 08:56 Furosemide (Lasix) 80 mg Q12HR@0600,1800 IV 04/12/19 18:00 05/08/19 17:59 04/20/19 17:40 Gabapentin (Neurontin) 600 mg BID ORAL 04/12/19 18:00 05/06/19 17:59 04/20/19 17:40 Guaifenesin/ Dextromethorphan (Robitussin DM Syrup) 5 ml Q4H PRN ORAL For Cough 04/12/19 11:30 05/10/19 19:29 04/16/19 11:49 Metoprolol Tartrate (Lopressor) 25 mg BID ORAL 04/14/19 11:30 05/14/19 11:29 04/20/19 17:41 Morphine Sulfate (Morphine Sulfate) 1 mg Q6H PRN IVP Breakthrough Pain 04/18/19 08:48 04/25/19 08:47 04/20/19 06:26 Ondansetron HCl (Zofran) 4 mg Q6H PRN IVP Nausea & Vomiting 04/12/19 11:45 05/08/19 11:44 Oxycodone/ Acetaminophen (Percocet 5-325) 1 tab Q4H PRN ORAL Severe Pain (Pain Scale 7-10) 04/18/19 08:49 04/25/19 08:48 04/20/19 13:50 Pantoprazole (Protonix) 40 mg EVERY 12 HOURS ORAL 04/12/19 21:00 05/09/19 08:59 04/20/19 08:56 Piperacillin Sod/ Tazobactam Sod 3.375 gm/Sodium Chloride 110 ml @ 27.5 mls/hr Q8H IVPB 04/20/19 08:00 04/27/19 07:59 04/20/19 16:43 Potassium Chloride (K-Dur) 40 meq BID ORAL 04/12/19 18:00 05/06/19 08:59 04/20/19 17:40 Prednisone (predniSONE) 10 mg DAILY ORAL 04/21/19 09:00 05/21/19 08:59 Last 24 Hour Vital Signs Date Time Temp Pulse Resp B/P (MAP) Pulse Ox O2 Delivery O2 Flow Rate FiO2 04/20/19 17:41 93 137/73 04/20/19 16:00 28 04/20/19 16:00 28 04/20/19 16:00 97.9 93 18 137/73 (94) 96 04/20/19 12:00 97.7 94 20 136/84 (101) 96 04/20/19 12:00 28 04/20/19 09:00 Nasal Cannula 4.0 04/20/19 08:58 92 126/66 04/20/19 08:57 92 04/20/19 08:56 92 126/66 04/20/19 08:01 95 Nasal Cannula 4.0 36 04/20/19 08:00 85 04/20/19 08:00 97.0 85 20 126/66 (86) 96 04/20/19 08:00 28 04/20/19 05:00 71 17 100 Facial 30 04/20/19 04:00 64 04/20/19 04:00 28 04/20/19 04:00 98.6 64 18 135/74 (94) 97 04/20/19 03:03 74 19 99 Facial 30 04/20/19 01:30 72 19 97 Facial 30 04/20/19 00:00 69 04/20/19 00:00 98.4 65 20 123/65 (84) 99 04/19/19 21:00 Nasal Cannula 4.0 04/19/19 20:00 4.0 04/19/19 20:00 69 04/19/19 20:00 98.1 67 20 137/83 (101) 96 04/19/19 19:01 97 Nasal Cannula 4.0 36 04/19/19 18:09 66 133/80 04/19/19 16:00 66 04/19/19 15:56 4.0 28 04/19/19 15:56 98.6 80 20 133/80 (97) 95 04/19/19 12:00 4.0 28 04/19/19 12:00 97.9 78 18 136/80 (98) 96 04/19/19 12:00 76 04/19/19 09:00 Nasal Cannula 4.0 04/19/19 08:39 79 160/91 04/19/19 08:38 79 04/19/19 08:37 79 160/91 04/19/19 08:00 97.7 79 20 160/91 (114) 95 04/19/19 08:00 4.0 28 04/19/19 04:00 97.8 78 21 138/73 (94) 97 04/19/19 04:00 78 04/19/19 04:00 4.0 28 04/19/19 03:56 71 19 96 Facial 30 04/19/19 00:00 98.0 64 18 140/85 (103) 97 04/19/19 00:00 64 04/18/19 21:00 Nasal Cannula 4.0 04/18/19 20:04 95 Nasal Cannula 4.0 36 04/18/19 20:00 4.0 04/18/19 20:00 56 04/18/19 20:00 98.1 56 20 158/83 (108) 92 04/18/19 18:54 98.1 Intake and Output 04/19/19 04/20/19 19:00 07:00 Intake Total 360 ml 470.0 ml Output Total 1400 ml 2800 ml Balance -1040 ml -2330.0 ml Intake Oral 360 ml 360 ml IV Total 110.0 ml Output Urine Total 1400 ml 2800 ml # Voids 1 # Bowel Movements 1 Labs Test 04/18/19 08:20 04/20/19 07:16 Digoxin Level 0.5 NG/ML (0.5-2.0) White Blood Count 16.9 K/UL (4.8-10.8) Red Blood Count 5.57 M/UL (4.70-6.10) Hemoglobin 14.1 G/DL (14.2-18.0) Hematocrit 44.7 % (42.0-52.0) Mean Corpuscular Volume 80 FL (80-99) Mean Corpuscular Hemoglobin 25.3 PG (27.0-31.0) Mean Corpuscular Hemoglobin Concent 31.5 G/DL (32.0-36.0) Red Cell Distribution Width 17.1 % (11.6-14.8) Platelet Count 188 K/UL (150-450) Mean Platelet Volume 10.0 FL (6.5-10.1) Neutrophils (%) (Auto) 76.2 % (45.0-75.0) Lymphocytes (%) (Auto) 14.1 % (20.0-45.0) Monocytes (%) (Auto) 7.7 % (1.0-10.0) Eosinophils (%) (Auto) 1.5 % (0.0-3.0) Basophils (%) (Auto) 0.5 % (0.0-2.0) Height (Feet): 5 Height (Inches): 10.00 Weight (Pounds): 411 Objective Physical Exam General: Awake and alert, nad HEENT: NC/AT. EOMI. tympanic membranes are deeply erythematous though nonbulging , no effusion Cardiovascular: RRR. S1 and S2 normal. No murmur appreciated Resp: Normal work of breathing.++ wheezing, NC 4L++ Abdomen: Abdomen is soft, nondistended. Nontender Skin: Intact. No abrasions, laceration or rash over the exposed skin MSK: Normal tone and bulk. Moving all extremities. No obvious deformity. Ext: 1+ edema Harsh Lehman MD Apr 20, 2019 18:10
--- NOTE | 2019-04-20 19:25 | NUR ---
HAND-OFF: Report given to KEESHA Rankin. Endorsed the plan of care.
--- NOTE | 2019-04-20 19:28 | NUR ---
NURSE NOTES: Received patient from KEESHA Crawley. Patient alert, sitting in bed comfortably. No signs of distress, pain, or shortness of breath noted. Patient able to make needs known and ambulates. IV site checked, no signs of redness, bleeding, or infiltration noted. Fluid restriction endorsed. Bed in lowest position, brakes on, side rails up x2, and call light within reach. Will continue with plan of care.
[2019-04-20 20:00] VITALS: BP 128/63
--- NOTE | 2019-04-20 20:12 | Cardiology Progress Note ---
Assessment/Plan Assessment/Plan 1. Acute HFnl EF, continue lasix. 2. Recurrent NSVT. No syncope. Nl EF. Stress test as out patient as couldn't fit in camera. No chest pain at this time. 3. Hypertension. Continue Lasix and Cardizem. 4. Paroxysmal atrial fib with RVR, now in SR. On Cardizem, metoprolol and Digoxin. Dig level is within normal limits. Subjective Subjective Sinus rhythm at rate of 93. Objective Last 24 Hour Vital Signs Date Time Temp Pulse Resp B/P (MAP) Pulse Ox O2 Delivery O2 Flow Rate FiO2 04/20/19 19:52 94 Nasal Cannula 4.0 36 04/20/19 17:41 93 137/73 04/20/19 16:00 28 04/20/19 16:00 63 04/20/19 16:00 28 04/20/19 16:00 97.9 93 18 137/73 (94) 96 04/20/19 12:00 97.7 94 20 136/84 (101) 96 04/20/19 12:00 28 04/20/19 09:00 Nasal Cannula 4.0 04/20/19 08:58 92 126/66 04/20/19 08:57 92 04/20/19 08:56 92 126/66 04/20/19 08:01 95 Nasal Cannula 4.0 36 04/20/19 08:00 85 04/20/19 08:00 97.0 85 20 126/66 (86) 96 04/20/19 08:00 28 04/20/19 05:00 71 17 100 Facial 30 04/20/19 04:00 64 04/20/19 04:00 28 04/20/19 04:00 98.6 64 18 135/74 (94) 97 04/20/19 03:03 74 19 99 Facial 30 04/20/19 01:30 72 19 97 Facial 30 04/20/19 00:00 69 04/20/19 00:00 98.4 65 20 123/65 (84) 99 04/19/19 21:00 Nasal Cannula 4.0 Intake and Output 04/19/19 04/20/19 19:00 07:00 Intake Total 360 ml 470.0 ml Output Total 1400 ml 2800 ml Balance -1040 ml -2330.0 ml Intake Oral 360 ml 360 ml IV Total 110.0 ml Output Urine Total 1400 ml 2800 ml # Voids 1 # Bowel Movements 1 2D Echo: LVEF 65%, Mild ID/MR, RVSP 15 mmHg Laboratory Tests Test 04/20/19 07:16 White Blood Count 16.9 K/UL (4.8-10.8) H Red Blood Count 5.57 M/UL (4.70-6.10) Hemoglobin 14.1 G/DL (14.2-18.0) L Hematocrit 44.7 % (42.0-52.0) Mean Corpuscular Volume 80 FL (80-99) Mean Corpuscular Hemoglobin 25.3 PG (27.0-31.0) L Mean Corpuscular Hemoglobin Concent 31.5 G/DL (32.0-36.0) L Red Cell Distribution Width 17.1 % (11.6-14.8) H Platelet Count 188 K/UL (150-450) Mean Platelet Volume 10.0 FL (6.5-10.1) Neutrophils (%) (Auto) 76.2 % (45.0-75.0) H Lymphocytes (%) (Auto) 14.1 % (20.0-45.0) L Monocytes (%) (Auto) 7.7 % (1.0-10.0) Eosinophils (%) (Auto) 1.5 % (0.0-3.0) Basophils (%) (Auto) 0.5 % (0.0-2.0) Microbiology Date/Time Source Procedure Growth Status 04/18/19 02:43 Sputum Gram Stain - Final Complete 04/18/19 02:43 Sputum Sputum Culture - Final NORMAL UPPER RESPIRATORY WILLI PRESENT Complete Objective HEENT: No JVD. LUNGS: Coarse rhonchi. CARDIOVASCULAR: Regular S1 and S2 with no gallop or murmur. ABDOMEN: Soft, NT/ND, + BS. EXTREMITIES: 3+ pitting edema. Sandor Lawrence MD Apr 20, 2019 20:12
[2019-04-20] MEDS: Atorvastatin 20mg tab ORAL SCH (20:34)
--- NOTE | 2019-04-20 20:40 | NUR ---
NURSE NOTES: Patient complained of severe pain (02/10). Offered patient percocet first per protocol, but patient refused percocet, stated that he received 3 doses of percocet and it does not relieve his pain. Patient requesting morphine for severe pain. Will continue with plan of care.
--- NOTE | 2019-04-20 22:40 | General Progress Note ---
Assessment/Plan Problem List: (1) Hypokalemia ICD Codes: E87.6 - Hypokalemia SNOMED: 07423663 (2) CHF (congestive heart failure) ICD Codes: I50.9 - Heart failure, unspecified SNOMED: 10052104 (3) Lower back pain ICD Codes: M54.5 - Low back pain SNOMED: 135086411 Status: progressing Assessment/Plan: still edematous reviewed chart and labs and meds sleep apnea pleural effusion chf improving morbid obesity Subjective Cardiovascular: Reports: edema Respiratory: Reports: shortness of breath Allergies: Coded Allergies: RIVAROXABAN (Verified Allergy, Unknown, 04/05/19) Objective Last 24 Hour Vital Signs Date Time Temp Pulse Resp B/P (MAP) Pulse Ox O2 Delivery O2 Flow Rate FiO2 04/20/19 21:00 Nasal Cannula 4.0 04/20/19 20:00 97.4 63 22 128/63 (84) 96 04/20/19 20:00 60 04/20/19 20:00 28 04/20/19 19:52 94 Nasal Cannula 4.0 36 04/20/19 17:41 93 137/73 04/20/19 16:00 28 04/20/19 16:00 63 04/20/19 16:00 28 04/20/19 16:00 97.9 93 18 137/73 (94) 96 04/20/19 12:00 97.7 94 20 136/84 (101) 96 04/20/19 12:00 28 04/20/19 09:00 Nasal Cannula 4.0 04/20/19 08:58 92 126/66 04/20/19 08:57 92 04/20/19 08:56 92 126/66 04/20/19 08:01 95 Nasal Cannula 4.0 36 04/20/19 08:00 85 04/20/19 08:00 97.0 85 20 126/66 (86) 96 04/20/19 08:00 28 04/20/19 05:00 71 17 100 Facial 30 04/20/19 04:00 64 04/20/19 04:00 28 04/20/19 04:00 98.6 64 18 135/74 (94) 97 04/20/19 03:03 74 19 99 Facial 30 04/20/19 01:30 72 19 97 Facial 30 04/20/19 00:00 69 04/20/19 00:00 98.4 65 20 123/65 (84) 99 Intake and Output 04/19/19 04/20/19 19:00 07:00 Intake Total 360 ml 470.0 ml Output Total 1400 ml 2800 ml Balance -1040 ml -2330.0 ml Intake Oral 360 ml 360 ml IV Total 110.0 ml Output Urine Total 1400 ml 2800 ml # Voids 1 # Bowel Movements 1 Laboratory Tests 04/20/19 07:16: White Blood Count 16.9H, Red Blood Count 5.57, Hemoglobin 14.1L, Hematocrit 44.7 , Mean Corpuscular Volume 80, Mean Corpuscular Hemoglobin 25.3L, Mean Corpuscular Hemoglobin Concent 31.5L, Red Cell Distribution Width 17.1H, Platelet Count 188, Mean Platelet Volume 10.0, Neutrophils (%) (Auto) 76.2H, Lymphocytes (%) (Auto) 14.1L, Monocytes (%) (Auto) 7.7, Eosinophils (%) (Auto) 1.5, Basophils (%) (Auto) 0.5 Height (Feet): 5 Height (Inches): 10.00 Weight (Pounds): 411 Brodie De Jesus MD Apr 20, 2019 22:40
[2019-04-21] VITALS: BP 132/66
[2019-04-21] MEDS: Piperacillin/Tazobactam 3.375 GM in NS 110 ML IVPB SCH ×3 (00:12→16:54)
[2019-04-21 04:00] VITALS: BP 160/72
[2019-04-21 07:25] LABS: MEAN CORPUSCULAR VOLUME 80 FL (80-99); PLATELET COUNT 172 K/UL (150-450); RED BLOOD COUNT 5.12 M/UL (4.70-6.10); RED CELL DISTRIBUTION WIDTH 16.7 % (11.6-14.8); WHITE BLOOD COUNT 18.9 K/UL (4.8-10.8)
--- NOTE | 2019-04-21 07:29 | NUR ---
HAND-OFF: Report given to KEESHA Lira. Patient in stable condition, plan of care endorsed.
[2019-04-21 08:02] VITALS: BP 134/66
--- NOTE | 2019-04-21 08:45 | Infectious Diseases Prog Note ---
Assessment/Plan Assessment/Plan IMPRESSION: 1. Leukocytosis, 2. Pulmonary edema/pneumonia & atelectasis 3. Diastolic CHF. 4. VRE colonization. 5. Morbid obesity. 6. COPD with hypercapnic hypoxemic respiratory failure. 7. Hypertension. 8. Hyperkalemia, likely chronic kidney disease. RECOMMENDATIONS: Continue antibiotics, Zosyn and doxycycline X 1 day CXR Taper steroids. Subjective ROS Limited/Unobtainable: No Constitutional: Reports: no symptoms Respiratory: Reports: shortness of breath, dry cough Gastrointestinal/Abdominal: Reports: no symptoms Genitourinary: Reports: no symptoms Allergies: Coded Allergies: RIVAROXABAN (Verified Allergy, Unknown, 04/05/19) Objective Vital Signs Last 24 Hour Vital Signs Date Time Temp Pulse Resp B/P (MAP) Pulse Ox O2 Delivery O2 Flow Rate FiO2 04/21/19 08:02 96.8 85 20 134/66 (88) 96 04/21/19 04:06 67 21 100 Facial 30 04/21/19 04:02 78 20 97 Bi-Pap 30 04/21/19 04:00 64 04/21/19 04:00 28 04/21/19 04:00 98.8 68 22 160/72 (101) 98 04/21/19 02:51 80 23 100 Facial 30 04/21/19 00:00 62 04/21/19 00:00 97.7 61 22 132/66 (88) 98 04/20/19 21:00 Nasal Cannula 4.0 04/20/19 20:00 97.4 63 22 128/63 (84) 96 04/20/19 20:00 60 04/20/19 20:00 28 04/20/19 19:52 94 Nasal Cannula 4.0 36 04/20/19 17:41 93 137/73 04/20/19 16:00 28 04/20/19 16:00 63 04/20/19 16:00 28 04/20/19 16:00 97.9 93 18 137/73 (94) 96 04/20/19 12:00 97.7 94 20 136/84 (101) 96 04/20/19 12:00 28 04/20/19 09:00 Nasal Cannula 4.0 04/20/19 08:58 92 126/66 04/20/19 08:57 92 04/20/19 08:56 92 126/66 Height (Feet): 5 Height (Inches): 10.00 Weight (Pounds): 411 General Appearance: no acute distress HEENT: mucous membranes moist Respiratory/Chest: lungs clear Cardiovascular: normal rate Abdomen: soft, non tender Extremities: other - edema of legs Neurologic/Psychiatric: alert, oriented x 3, responsive Laboratory Tests Test 04/21/19 05:52 White Blood Count 18.9 K/UL (4.8-10.8) H Red Blood Count 5.12 M/UL (4.70-6.10) Hemoglobin 13.0 G/DL (14.2-18.0) L Hematocrit 41.0 % (42.0-52.0) L Mean Corpuscular Volume 80 FL (80-99) Mean Corpuscular Hemoglobin 25.5 PG (27.0-31.0) L Mean Corpuscular Hemoglobin Concent 31.9 G/DL (32.0-36.0) L Red Cell Distribution Width 16.7 % (11.6-14.8) H Platelet Count 172 K/UL (150-450) Mean Platelet Volume 10.3 FL (6.5-10.1) H Neutrophils (%) (Auto) % (45.0-75.0) Lymphocytes (%) (Auto) % (20.0-45.0) Monocytes (%) (Auto) % (1.0-10.0) Eosinophils (%) (Auto) % (0.0-3.0) Basophils (%) (Auto) % (0.0-2.0) Neutrophils % (Manual) Pending Lymphocytes % (Manual) Pending Platelet Estimate Pending Platelet Morphology Pending Current Medications Medications (Trade) Dose Ordered Sig/David Route PRN Reason Start Time Stop Time Status Last Admin Dose Admin Acetaminophen (Tylenol) 650 mg Q6H PRN ORAL Mild Pain/Temp > 100.5 04/12/19 12:30 05/08/19 18:27 Acetazolamide (Diamox) 250 mg DAILY ORAL 04/13/19 09:00 05/10/19 11:59 04/20/19 08:56 Apixaban (Eliquis) 5 mg BID ORAL 04/12/19 18:00 05/11/19 17:59 04/20/19 17:41 Aspirin (ASA) 81 mg DAILY ORAL 04/13/19 09:00 05/06/19 08:59 04/20/19 08:56 Atorvastatin Calcium (Lipitor) 40 mg BEDTIME ORAL 04/12/19 21:00 05/06/19 20:59 04/20/19 20:34 Clonidine HCl (Catapres Tab) 0.1 mg Q4H PRN ORAL bp over 165 syst 04/12/19 11:45 05/08/19 11:44 04/15/19 04:37 Digoxin (Lanoxin) 0.25 mg DAILY ORAL 04/13/19 09:00 05/11/19 08:59 04/20/19 08:57 Diltiazem HCl (Cardizem CD) 360 mg DAILY ORAL 04/14/19 09:00 05/14/19 08:59 04/20/19 08:56 Docusate Sodium (Colace) 100 mg THREE TIMES A DAY ORAL 04/12/19 13:00 05/09/19 08:59 04/20/19 17:41 Doxycycline Monohydrate (Doxycycline Monohydrate) 100 mg EVERY 12 HOURS ORAL 04/16/19 21:00 04/23/19 20:59 04/20/19 20:33 Folic Acid (Folate) 1 mg DAILY ORAL 04/13/19 09:00 05/10/19 10:59 04/20/19 08:56 Furosemide (Lasix) 80 mg Q12HR@0600,1800 IV 04/12/19 18:00 05/08/19 17:59 04/21/19 06:13 Gabapentin (Neurontin) 600 mg BID ORAL 04/12/19 18:00 05/06/19 17:59 04/20/19 17:40 Guaifenesin/ Dextromethorphan (Robitussin DM Syrup) 5 ml Q4H PRN ORAL For Cough 04/12/19 11:30 05/10/19 19:29 04/16/19 11:49 Metoprolol Tartrate (Lopressor) 25 mg BID ORAL 04/14/19 11:30 05/14/19 11:29 04/20/19 17:41 Morphine Sulfate (Morphine Sulfate) 1 mg Q6H PRN IVP Breakthrough Pain 04/18/19 08:48 04/25/19 08:47 04/20/19 22:14 Ondansetron HCl (Zofran) 4 mg Q6H PRN IVP Nausea & Vomiting 04/12/19 11:45 05/08/19 11:44 Oxycodone/ Acetaminophen (Percocet 5-325) 1 tab Q4H PRN ORAL Severe Pain (Pain Scale 7-10) 04/18/19 08:49 04/25/19 08:48 04/20/19 13:50 Pantoprazole (Protonix) 40 mg EVERY 12 HOURS ORAL 04/12/19 21:00 05/09/19 08:59 04/20/19 20:34 Piperacillin Sod/ Tazobactam Sod 3.375 gm/Sodium Chloride 110 ml @ 27.5 mls/hr Q8H IVPB 04/20/19 08:00 04/27/19 07:59 04/21/19 00:12 Potassium Chloride (K-Dur) 40 meq BID ORAL 04/12/19 18:00 05/06/19 08:59 04/20/19 17:40 Prednisone (predniSONE) 10 mg DAILY ORAL 04/21/19 09:00 05/21/19 08:59 Bill Pak MD Apr 21, 2019 08:45
--- NOTE | 2019-04-21 09:01 | Hematology/Onc Progress Note ---
Assessment/Plan Assessment/Plan Assessment and Recs: # Secondary hypercoagulable disorder, has afib with rvr, w/u as per cards --> initially on heparin gtt --> NOW OFF --> cardizem po started for rhythm control --> per cards agree with apixaban --> also is on asa # Leukocytosis is likely due to steroid use --> wbc trend 15-->20k-->18-->19-->22-->21.1-->12.9-->19 --> steroid taper --> abx as per id --> zosyn # Hypokalemia --> per renal, replete k as needed, per [place] --> diuresis prn # CHF (congestive heart failure) v copd exacerbation --> on lasix bid dosing, per cards --> bipap afterload reduction # Obesity --> weight loss recommended --> lifestyle modification # Afib with rvr per cards --> on apixban --> rate control/rhythm # Dvt ppx apix DW Rn and appreciate consultation. Subjective Constitutional: Denies: no symptoms, chills, fever, malaise, weakness, other HEENT: Denies: no symptoms, eye pain, blurred vision, tearing, double vision, ear pain, ear discharge, nose pain, nose congestion, throat pain, throat swelling, mouth pain, mouth swelling, other Respiratory: Denies: no symptoms, cough, shortness of breath, SOB with excertion, SOB at rest, sputum, wheezing, other Gastrointestinal/Abdominal: Denies: no symptoms, abdomen distended, abdominal pain, black stools, tarry stools, blood in stool, constipated, diarrhea, difficulty swallowing, nausea, poor appetite, poor fluid intake, rectal bleeding , vomiting, other Endocrine: Denies: no symptoms, excessive sweating, flushing, intolerance to cold, intolerance to heat, increased hunger, increased thirst, increased urine, unexplained weight gain, unexplained weight loss, other Hematologic/Lymphatic: Denies: no symptoms, anemia, easy bleeding, easy bruising, adenopathy, other Allergies: Coded Allergies: RIVAROXABAN (Verified Allergy, Unknown, 04/05/19) Subjective 04/11: remains on diltz and heparin gtt, oon bipap o/n 04/12: bipap overnight and 2lnc, as per cards on apixaban, still bp high 04/13: transferred to tele, awake and alert, no acute events, cbc ordered 04/14: Dr. Doll aware, afib with rvr, is on dig / cardizem, now nsr, no bleeding 04/15: wbc remains higher but likely due to steroids, refusing fluid restriction 04/17: awake and alert, cxr w/ opacities, on abx, nc 4L 04/18: noncompliant with fluid restriction, no bleeding, no night sweats 04/19: resting, no events, bipap overnight, seen by Howard 04/20: awake and alert, no acute events, cxr unchanged 04/21: no bleeding noted, on abx as per Dr. Pak Objective Objective Current Medications Medications (Trade) Dose Ordered Sig/David Route PRN Reason Start Time Stop Time Status Last Admin Dose Admin Acetaminophen (Tylenol) 650 mg Q6H PRN ORAL Mild Pain/Temp > 100.5 04/12/19 12:30 05/08/19 18:27 Acetazolamide (Diamox) 250 mg DAILY ORAL 04/13/19 09:00 05/10/19 11:59 04/20/19 08:56 Apixaban (Eliquis) 5 mg BID ORAL 04/12/19 18:00 05/11/19 17:59 04/20/19 17:41 Aspirin (ASA) 81 mg DAILY ORAL 04/13/19 09:00 05/06/19 08:59 04/20/19 08:56 Atorvastatin Calcium (Lipitor) 40 mg BEDTIME ORAL 04/12/19 21:00 05/06/19 20:59 04/20/19 20:34 Clonidine HCl (Catapres Tab) 0.1 mg Q4H PRN ORAL bp over 165 syst 04/12/19 11:45 05/08/19 11:44 04/15/19 04:37 Digoxin (Lanoxin) 0.25 mg DAILY ORAL 04/13/19 09:00 05/11/19 08:59 04/20/19 08:57 Diltiazem HCl (Cardizem CD) 360 mg DAILY ORAL 04/14/19 09:00 05/14/19 08:59 04/20/19 08:56 Docusate Sodium (Colace) 100 mg THREE TIMES A DAY ORAL 04/12/19 13:00 05/09/19 08:59 04/20/19 17:41 Doxycycline Monohydrate (Doxycycline Monohydrate) 100 mg EVERY 12 HOURS ORAL 04/16/19 21:00 04/23/19 20:59 04/20/19 20:33 Folic Acid (Folate) 1 mg DAILY ORAL 04/13/19 09:00 05/10/19 10:59 04/20/19 08:56 Furosemide (Lasix) 80 mg Q12HR@0600,1800 IV 04/12/19 18:00 05/08/19 17:59 04/21/19 06:13 Gabapentin (Neurontin) 600 mg BID ORAL 04/12/19 18:00 05/06/19 17:59 04/20/19 17:40 Guaifenesin/ Dextromethorphan (Robitussin DM Syrup) 5 ml Q4H PRN ORAL For Cough 04/12/19 11:30 05/10/19 19:29 04/16/19 11:49 Metoprolol Tartrate (Lopressor) 25 mg BID ORAL 04/14/19 11:30 05/14/19 11:29 04/20/19 17:41 Morphine Sulfate (Morphine Sulfate) 1 mg Q6H PRN IVP Breakthrough Pain 04/18/19 08:48 04/25/19 08:47 04/20/19 22:14 Ondansetron HCl (Zofran) 4 mg Q6H PRN IVP Nausea & Vomiting 04/12/19 11:45 05/08/19 11:44 Oxycodone/ Acetaminophen (Percocet 5-325) 1 tab Q4H PRN ORAL Severe Pain (Pain Scale 7-10) 04/18/19 08:49 04/25/19 08:48 04/20/19 13:50 Pantoprazole (Protonix) 40 mg EVERY 12 HOURS ORAL 04/12/19 21:00 05/09/19 08:59 04/20/19 20:34 Piperacillin Sod/ Tazobactam Sod 3.375 gm/Sodium Chloride 110 ml @ 27.5 mls/hr Q8H IVPB 04/20/19 08:00 04/27/19 07:59 04/21/19 00:12 Potassium Chloride (K-Dur) 40 meq BID ORAL 04/12/19 18:00 05/06/19 08:59 04/20/19 17:40 Prednisone (predniSONE) 10 mg DAILY ORAL 04/21/19 09:00 05/21/19 08:59 Last 24 Hour Vital Signs Date Time Temp Pulse Resp B/P (MAP) Pulse Ox O2 Delivery O2 Flow Rate FiO2 04/21/19 08:02 96.8 85 20 134/66 (88) 96 04/21/19 04:06 67 21 100 Facial 30 04/21/19 04:02 78 20 97 Bi-Pap 30 04/21/19 04:00 64 04/21/19 04:00 28 04/21/19 04:00 98.8 68 22 160/72 (101) 98 04/21/19 02:51 80 23 100 Facial 30 04/21/19 00:00 62 04/21/19 00:00 97.7 61 22 132/66 (88) 98 04/20/19 21:00 Nasal Cannula 4.0 04/20/19 20:00 97.4 63 22 128/63 (84) 96 04/20/19 20:00 60 04/20/19 20:00 28 04/20/19 19:52 94 Nasal Cannula 4.0 36 04/20/19 17:41 93 137/73 04/20/19 16:00 28 04/20/19 16:00 63 04/20/19 16:00 28 04/20/19 16:00 97.9 93 18 137/73 (94) 96 04/20/19 12:00 97.7 94 20 136/84 (101) 96 04/20/19 12:00 28 04/20/19 09:00 Nasal Cannula 4.0 04/20/19 08:58 92 126/66 04/20/19 08:57 92 04/20/19 08:56 92 126/66 04/20/19 08:01 95 Nasal Cannula 4.0 36 04/20/19 08:00 85 04/20/19 08:00 97.0 85 20 126/66 (86) 96 04/20/19 08:00 28 04/20/19 05:00 71 17 100 Facial 30 04/20/19 04:00 64 04/20/19 04:00 28 04/20/19 04:00 98.6 64 18 135/74 (94) 97 04/20/19 03:03 74 19 99 Facial 30 04/20/19 01:30 72 19 97 Facial 30 04/20/19 00:00 69 04/20/19 00:00 98.4 65 20 123/65 (84) 99 04/19/19 21:00 Nasal Cannula 4.0 04/19/19 20:00 4.0 04/19/19 20:00 69 04/19/19 20:00 98.1 67 20 137/83 (101) 96 04/19/19 19:01 97 Nasal Cannula 4.0 36 04/19/19 18:09 66 133/80 04/19/19 16:00 66 04/19/19 15:56 4.0 28 04/19/19 15:56 98.6 80 20 133/80 (97) 95 04/19/19 12:00 4.0 28 04/19/19 12:00 97.9 78 18 136/80 (98) 96 04/19/19 12:00 76 Intake and Output 04/20/19 04/21/19 19:00 07:00 Intake Total 360 ml 300 ml Output Total 1450 ml 1400 ml Balance -1090 ml -1100 ml Intake Oral 360 ml 300 ml Output Urine Total 1450 ml 1400 ml # Bowel Movements 1 Labs Test 04/20/19 07:16 04/21/19 05:52 White Blood Count 16.9 K/UL (4.8-10.8) 18.9 K/UL (4.8-10.8) Red Blood Count 5.57 M/UL (4.70-6.10) 5.12 M/UL (4.70-6.10) Hemoglobin 14.1 G/DL (14.2-18.0) 13.0 G/DL (14.2-18.0) Hematocrit 44.7 % (42.0-52.0) 41.0 % (42.0-52.0) Mean Corpuscular Volume 80 FL (80-99) 80 FL (80-99) Mean Corpuscular Hemoglobin 25.3 PG (27.0-31.0) 25.5 PG (27.0-31.0) Mean Corpuscular Hemoglobin Concent 31.5 G/DL (32.0-36.0) 31.9 G/DL (32.0-36.0) Red Cell Distribution Width 17.1 % (11.6-14.8) 16.7 % (11.6-14.8) Platelet Count 188 K/UL (150-450) 172 K/UL (150-450) Mean Platelet Volume 10.0 FL (6.5-10.1) 10.3 FL (6.5-10.1) Neutrophils (%) (Auto) 76.2 % (45.0-75.0) % (45.0-75.0) Lymphocytes (%) (Auto) 14.1 % (20.0-45.0) % (20.0-45.0) Monocytes (%) (Auto) 7.7 % (1.0-10.0) % (1.0-10.0) Eosinophils (%) (Auto) 1.5 % (0.0-3.0) % (0.0-3.0) Basophils (%) (Auto) 0.5 % (0.0-2.0) % (0.0-2.0) Height (Feet): 5 Height (Inches): 10.00 Weight (Pounds): 411 Objective Physical Exam General: Awake and alert, nad HEENT: NC/AT. EOMI. tympanic membranes are deeply erythematous though nonbulging , no effusion Cardiovascular: RRR. S1 and S2 normal. No murmur appreciated Resp: Normal work of breathing.++ wheezing, NC 4L++ Abdomen: Abdomen is soft, nondistended. Nontender Skin: Intact. No abrasions, laceration or rash over the exposed skin MSK: Normal tone and bulk. Moving all extremities. No obvious deformity. Ext: 1+ edema Harsh Lehman MD Apr 21, 2019 09:01
--- NOTE | 2019-04-21 09:02 | General Progress Note ---
Assessment/Plan Assessment/Plan: (1) Lumbar DDD (2) Lumbar Spondylosis (3) Morbid obesity Patient to be continued on Percocet and Morphine Parameters will be continued D/w Dr. Stack and he concurred. Subjective Date patient seen: Apr 21, 2019 Time patient seen: 08:00 - am Allergies: Coded Allergies: RIVAROXABAN (Verified Allergy, Unknown, 04/05/19) Subjective REVIEW OF SYSTEMS: Denies rash, fever, chills at this time, sweating, dizziness, drowsiness, blurred vision, sore throat, change in weight. No nausea, vomiting, diarrhea, or blood in the stool or urine. No dysuria. He is complaining of low back pain. SUBJECTIVE: Patient has been in bed no signs of pain or distress. Using 2 morphine and 1 Percocet in the last 24hrs. Has no new complaints at this time. Objective Last 24 Hour Vital Signs Date Time Temp Pulse Resp B/P (MAP) Pulse Ox O2 Delivery O2 Flow Rate FiO2 04/21/19 08:02 96.8 85 20 134/66 (88) 96 04/21/19 04:06 67 21 100 Facial 30 04/21/19 04:02 78 20 97 Bi-Pap 30 04/21/19 04:00 64 04/21/19 04:00 28 04/21/19 04:00 98.8 68 22 160/72 (101) 98 04/21/19 02:51 80 23 100 Facial 30 04/21/19 00:00 62 04/21/19 00:00 97.7 61 22 132/66 (88) 98 04/20/19 21:00 Nasal Cannula 4.0 04/20/19 20:00 97.4 63 22 128/63 (84) 96 04/20/19 20:00 60 04/20/19 20:00 28 04/20/19 19:52 94 Nasal Cannula 4.0 36 04/20/19 17:41 93 137/73 04/20/19 16:00 28 04/20/19 16:00 63 04/20/19 16:00 28 04/20/19 16:00 97.9 93 18 137/73 (94) 96 04/20/19 12:00 97.7 94 20 136/84 (101) 96 04/20/19 12:00 28 Intake and Output 04/20/19 04/21/19 19:00 07:00 Intake Total 360 ml 300 ml Output Total 1450 ml 1400 ml Balance -1090 ml -1100 ml Intake Oral 360 ml 300 ml Output Urine Total 1450 ml 1400 ml # Bowel Movements 1 Laboratory Tests 04/21/19 05:52: White Blood Count 18.9H, Red Blood Count 5.12, Hemoglobin 13.0L, Hematocrit 41.0L, Mean Corpuscular Volume 80, Mean Corpuscular Hemoglobin 25.5L, Mean Corpuscular Hemoglobin Concent 31.9L, Red Cell Distribution Width 16.7H, Platelet Count 172, Mean Platelet Volume 10.3H, Neutrophils (%) (Auto) , Lymphocytes (%) (Auto) , Monocytes (%) (Auto) , Eosinophils (%) (Auto) , Basophils (%) (Auto) , Neutrophils % (Manual) [Pending], Lymphocytes % (Manual) [Pending], Platelet Estimate [Pending], Platelet Morphology [Pending] Height (Feet): 5 Height (Inches): 10.00 Weight (Pounds): 411 Objective GENERAL: Alert, awake, and oriented. LUNGS: Decreased breath sounds bilaterally. HEART: S1 and S2 regular. ABDOMEN: Obese.. EXTREMITIES: No cyanosis. No clubbing. NEURO: No changes. Osito Sultana Apr 21, 2019 09:02
[2019-04-21] MEDS: Aspirin Baby 81mg ORAL SCH (09:15)
[2019-04-21] MEDS: Doxycycline Monohydrate 100mg ORAL SCH ×2 (09:15→20:12)
[2019-04-21] MEDS: Eliquis 5mg tablet ORAL SCH ×2 (09:16→16:47)
[2019-04-21] MEDS: Docusate 100mg cap ORAL SCH ×3 (09:16→16:48)
[2019-04-21] MEDS: dilTIAZem HCl CD 180mg cap ORAL SCH (09:17)
--- NOTE | 2019-04-21 11:32 | Nephrology Progress Note ---
Assessment/Plan Problem List: (1) Hypokalemia (2) CHF (congestive heart failure) (3) Renal failure (4) Obesity, morbid, BMI 50 or higher (5) CO2 retention (6) COPD (chronic obstructive pulmonary disease) Assessment elevated Cr likely due to diuresis Obesity , NATASHA AT fib with FVR HTN Congestive heart failure, likely diastolic dysfunction. EF 60% Recurrent NSVT. No syncope. Hypertension. Morbid obesity. COPD. Lipidemia. Plan refuses blood work at times high WBCs ? steroids related Cr rising Keep BP in check Monitor lytes B12 and Folic acid Diamox PO per orders per cardio and pulmonary taper steroids as possible Subjective ROS Limited/Unobtainable: No Constitutional: Reports: malaise, weakness Objective Objective Last 24 Hour Vital Signs Date Time Temp Pulse Resp B/P (MAP) Pulse Ox O2 Delivery O2 Flow Rate FiO2 04/21/19 09:17 85 134/66 04/21/19 09:16 85 04/21/19 09:15 85 134/66 04/21/19 08:02 96.8 85 20 134/66 (88) 96 04/21/19 04:06 67 21 100 Facial 30 04/21/19 04:02 78 20 97 Bi-Pap 30 04/21/19 04:00 64 04/21/19 04:00 28 04/21/19 04:00 98.8 68 22 160/72 (101) 98 04/21/19 02:51 80 23 100 Facial 30 04/21/19 00:00 62 04/21/19 00:00 97.7 61 22 132/66 (88) 98 04/20/19 21:00 Nasal Cannula 4.0 04/20/19 20:00 97.4 63 22 128/63 (84) 96 04/20/19 20:00 60 04/20/19 20:00 28 04/20/19 19:52 94 Nasal Cannula 4.0 36 04/20/19 17:41 93 137/73 04/20/19 16:00 28 04/20/19 16:00 63 04/20/19 16:00 28 04/20/19 16:00 97.9 93 18 137/73 (94) 96 04/20/19 12:00 97.7 94 20 136/84 (101) 96 04/20/19 12:00 28 Intake and Output 04/20/19 04/21/19 19:00 07:00 Intake Total 360 ml 300 ml Output Total 1450 ml 1400 ml Balance -1090 ml -1100 ml Intake Oral 360 ml 300 ml Output Urine Total 1450 ml 1400 ml # Bowel Movements 1 Laboratory Tests 04/21/19 05:52: White Blood Count 18.9H, Red Blood Count 5.12, Hemoglobin 13.0L, Hematocrit 41.0L, Mean Corpuscular Volume 80, Mean Corpuscular Hemoglobin 25.5L, Mean Corpuscular Hemoglobin Concent 31.9L, Red Cell Distribution Width 16.7H, Platelet Count 172, Mean Platelet Volume 10.3H, Neutrophils (%) (Auto) , Lymphocytes (%) (Auto) , Monocytes (%) (Auto) , Eosinophils (%) (Auto) , Basophils (%) (Auto) , Differential Total Cells Counted 100, Neutrophils % ( Manual) 73, Lymphocytes % (Manual) 15L, Monocytes % (Manual) 11H, Eosinophils % (Manual) 1, Basophils % (Manual) 0, Band Neutrophils 0, Platelet Estimate Adequate, Platelet Morphology Normal, Anisocytosis 1+ Height (Feet): 5 Height (Inches): 10.00 Weight (Pounds): 411 General Appearance: no apparent distress, lethargic Cardiovascular: tachycardia Respiratory/Chest: decreased breath sounds Abdomen: distended, other - obese Objective no change Bebeto Yin MD Apr 21, 2019 11:32
[2019-04-21 12:00] VITALS: BP 134/83
--- NOTE | 2019-04-21 12:51 | NUR ---
RADIOLOGY DEPT., CHEST X-RAY DONE.-P.DYE
--- NOTE | 2019-04-21 13:00 | NUR ---
RADIOLOGY DEPT., CHEST X-RAY DONE.-P.DYE
--- NOTE | 2019-04-21 13:02 | Diagnostic Imaging Report ---
Indication: Shortness of breath Technique: One view of the chest Comparison: 04/19/2019 Findings: Right hemidiaphragm is elevated. The lateral left hemidiaphragm is partially obscured. Atelectatic bands are seen in the left midlung. The heart is enlarged. Impression: Obscured left lateral hemidiaphragm, could indicate pleural fluid and/or parenchymal disease Elevated right hemidiaphragm Borderline cardiomegaly
--- NOTE | 2019-04-21 14:52 | General Progress Note ---
Assessment/Plan Problem List: (1) Hypokalemia ICD Codes: E87.6 - Hypokalemia SNOMED: 68293179 (2) CHF (congestive heart failure) ICD Codes: I50.9 - Heart failure, unspecified SNOMED: 05783653 (3) Lower back pain ICD Codes: M54.5 - Low back pain SNOMED: 430407358 Status: progressing Assessment/Plan: persistent leukocytosis copd no wheezing reviewed chart and labs and meds sleep apnea pleural effusion chf improving morbid obesity Subjective ROS Limited/Unobtainable: Yes Allergies: Coded Allergies: RIVAROXABAN (Verified Allergy, Unknown, 04/05/19) Objective Last 24 Hour Vital Signs Date Time Temp Pulse Resp B/P (MAP) Pulse Ox O2 Delivery O2 Flow Rate FiO2 04/21/19 09:17 85 134/66 04/21/19 09:16 85 04/21/19 09:15 85 134/66 04/21/19 09:00 Nasal Cannula 4.0 04/21/19 08:02 96.8 85 20 134/66 (88) 96 04/21/19 08:00 78 04/21/19 08:00 96 Nasal Cannula 3.0 32 04/21/19 08:00 28 04/21/19 04:06 67 21 100 Facial 30 04/21/19 04:02 78 20 97 Bi-Pap 30 04/21/19 04:00 64 04/21/19 04:00 28 04/21/19 04:00 98.8 68 22 160/72 (101) 98 04/21/19 02:51 80 23 100 Facial 30 04/21/19 00:00 62 04/21/19 00:00 97.7 61 22 132/66 (88) 98 04/20/19 21:00 Nasal Cannula 4.0 04/20/19 20:00 97.4 63 22 128/63 (84) 96 04/20/19 20:00 60 04/20/19 20:00 28 04/20/19 19:52 94 Nasal Cannula 4.0 36 04/20/19 17:41 93 137/73 04/20/19 16:00 28 04/20/19 16:00 63 04/20/19 16:00 28 04/20/19 16:00 97.9 93 18 137/73 (94) 96 Intake and Output 04/20/19 04/21/19 19:00 07:00 Intake Total 360 ml 300 ml Output Total 1450 ml 1400 ml Balance -1090 ml -1100 ml Intake Oral 360 ml 300 ml Output Urine Total 1450 ml 1400 ml # Bowel Movements 1 Laboratory Tests 04/21/19 05:52: White Blood Count 18.9H, Red Blood Count 5.12, Hemoglobin 13.0L, Hematocrit 41.0L, Mean Corpuscular Volume 80, Mean Corpuscular Hemoglobin 25.5L, Mean Corpuscular Hemoglobin Concent 31.9L, Red Cell Distribution Width 16.7H, Platelet Count 172, Mean Platelet Volume 10.3H, Neutrophils (%) (Auto) , Lymphocytes (%) (Auto) , Monocytes (%) (Auto) , Eosinophils (%) (Auto) , Basophils (%) (Auto) , Differential Total Cells Counted 100, Neutrophils % ( Manual) 73, Lymphocytes % (Manual) 15L, Monocytes % (Manual) 11H, Eosinophils % (Manual) 1, Basophils % (Manual) 0, Band Neutrophils 0, Platelet Estimate Adequate, Platelet Morphology Normal, Anisocytosis 1+ Height (Feet): 5 Height (Inches): 10.00 Weight (Pounds): 411 Neck: supple Cardiovascular: normal rate Respiratory/Chest: lungs clear Abdomen: soft Brodie De Jesus MD Apr 21, 2019 14:52
[2019-04-21 15:47] VITALS: BP 130/56
--- NOTE | 2019-04-21 16:39 | NUR ---
CASE MANAGEMENT:REVIEW 04/21/19 SI: CHF. COPD . LOW BACK PAIN . 98.6 66 20 130/56 97% ON 4L/NC ; FI02 28 WBC 18.9 IS: IV ZOSYN Q8HR IV LASIX BID DOXYCYCLINE PO BID K-DUR PO BID PREDNISONE PO QD LOPRESSOR PO BID CARDIZEM PO QD CLONIDINE Q4/PRN DIGOXIN PO QD DIAMOX PO QD ROBITUSSIN PO Q4/PRN FOLATE PO QD LIPITOR PO QHS PROTONIX PO Q12 ASA PO QD NEURONTIN PO BID IV MORPHINE Q6HR : 2E TELE UNIT DCP: FROM HOME PLAN: DC PLANNING
[2019-04-21] MEDS: oxyCODONE HCL/Acetaminophen 5/325mg ORAL PRN ×2 (16:47→21:59)
[2019-04-21] MEDS: Morphine Sulfate 2mg/ml Inj(IV/IM USE ONLY) IVP PRN ×3 (17:07→20:15)
--- NOTE | 2019-04-21 17:50 | Pulmonology Progress Note ---
Assessment/Plan Assessment/Plan Pulmonary Progress Note HPI The patient is a 48-year-old man with history of obesity and Congestive Heart Failure, admitted with chest pain, shortness of breath, fevers and chills as well as sore throat and ear pain. Denies cough or sputum production, vomiting or diarrhea H/o Afib on AC, h/o NATASHA on CPAP Less SOB, using BiPAP at night and PRN, up in chair, no current ear pain On IV antibiotics for possible Pneumonia, persistent Leukocytosis CXR no change, bilateral basal atelectasis Past Medical History: Obesity, Congestive Heart Failure, Chronic Obstructive Pulmonary Disease, Diabetes, Hypertension, NATASHA, Obesity Allergies: RIVAROXABAN All Other Systems: negative except mentioned in HPI Physical Exam Vital Signs Noted General: Awake and alert, no acute distress, obese HEENT: NC/AT. EOMI. tympanic membranes are erythematous, moist mm Cardiovascular: RRR. S1 and S2 normal. No murmur appreciated. Mild edema noted Resp: Normal work of breathing. CTAB Abdomen: Abdomen is soft, nondistended. Nontender Skin: Intact. No abrasions, laceration or rash over the exposed skin Extremities: Normal tone and bulk. Moving all extremities. No obvious deformity. Neuro: Awake and alert. Mentating appropriately. 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 No ST segment changes. Normal intervals CXR: Obscured left lateral hemidiaphragm, could indicate pleural fluid and/or parenchymal disease Elevated right hemidiaphragm Borderline cardiomegaly Subjective ROS Limited/Unobtainable: No Allergies: Coded Allergies: RIVAROXABAN (Verified Allergy, Unknown, 04/05/19) Objective Last 24 Hour Vital Signs Date Time Temp Pulse Resp B/P (MAP) Pulse Ox O2 Delivery O2 Flow Rate FiO2 04/21/19 17:17 98.6 04/21/19 17:17 98.6 04/21/19 16:47 66 130/56 04/21/19 16:00 28 04/21/19 15:47 98.6 66 20 130/56 (80) 97 04/21/19 12:00 97.7 73 20 134/83 (100) 99 04/21/19 12:00 63 04/21/19 12:00 28 04/21/19 09:17 85 134/66 04/21/19 09:16 85 04/21/19 09:15 85 134/66 04/21/19 09:00 Nasal Cannula 4.0 04/21/19 08:02 96.8 85 20 134/66 (88) 96 04/21/19 08:00 78 04/21/19 08:00 96 Nasal Cannula 3.0 32 04/21/19 08:00 28 04/21/19 04:06 67 21 100 Facial 30 04/21/19 04:02 78 20 97 Bi-Pap 30 04/21/19 04:00 64 04/21/19 04:00 28 04/21/19 04:00 98.8 68 22 160/72 (101) 98 04/21/19 02:51 80 23 100 Facial 30 04/21/19 00:00 62 04/21/19 00:00 97.7 61 22 132/66 (88) 98 04/20/19 21:00 Nasal Cannula 4.0 04/20/19 20:00 97.4 63 22 128/63 (84) 96 04/20/19 20:00 60 04/20/19 20:00 28 04/20/19 19:52 94 Nasal Cannula 4.0 36 Intake and Output 04/20/19 04/21/19 19:00 07:00 Intake Total 360 ml 300 ml Output Total 1450 ml 1400 ml Balance -1090 ml -1100 ml Intake Oral 360 ml 300 ml Output Urine Total 1450 ml 1400 ml # Bowel Movements 1 Laboratory Tests 04/21/19 05:52: White Blood Count 18.9H, Red Blood Count 5.12, Hemoglobin 13.0L, Hematocrit 41.0L, Mean Corpuscular Volume 80, Mean Corpuscular Hemoglobin 25.5L, Mean Corpuscular Hemoglobin Concent 31.9L, Red Cell Distribution Width 16.7H, Platelet Count 172, Mean Platelet Volume 10.3H, Neutrophils (%) (Auto) , Lymphocytes (%) (Auto) , Monocytes (%) (Auto) , Eosinophils (%) (Auto) , Basophils (%) (Auto) , Differential Total Cells Counted 100, Neutrophils % ( Manual) 73, Lymphocytes % (Manual) 15L, Monocytes % (Manual) 11H, Eosinophils % (Manual) 1, Basophils % (Manual) 0, Band Neutrophils 0, Platelet Estimate Adequate, Platelet Morphology Normal, Anisocytosis 1+ Current Medications Medications (Trade) Dose Ordered Sig/David Route PRN Reason Start Time Stop Time Status Last Admin Dose Admin Acetaminophen (Tylenol) 650 mg Q6H PRN ORAL Mild Pain/Temp > 100.5 04/12/19 12:30 05/08/19 18:27 Acetazolamide (Diamox) 250 mg DAILY ORAL 04/13/19 09:00 05/10/19 11:59 04/21/19 09:16 Apixaban (Eliquis) 5 mg BID ORAL 04/12/19 18:00 05/11/19 17:59 04/21/19 16:47 Aspirin (ASA) 81 mg DAILY ORAL 04/13/19 09:00 05/06/19 08:59 04/21/19 09:15 Atorvastatin Calcium (Lipitor) 40 mg BEDTIME ORAL 04/12/19 21:00 05/06/19 20:59 04/20/19 20:34 Clonidine HCl (Catapres Tab) 0.1 mg Q4H PRN ORAL bp over 165 syst 04/12/19 11:45 05/08/19 11:44 04/15/19 04:37 Digoxin (Lanoxin) 0.25 mg DAILY ORAL 04/13/19 09:00 05/11/19 08:59 04/21/19 09:16 Diltiazem HCl (Cardizem CD) 360 mg DAILY ORAL 04/14/19 09:00 05/14/19 08:59 04/21/19 09:17 Docusate Sodium (Colace) 100 mg THREE TIMES A DAY ORAL 04/12/19 13:00 05/09/19 08:59 04/21/19 16:48 Doxycycline Monohydrate (Doxycycline Monohydrate) 100 mg EVERY 12 HOURS ORAL 04/16/19 21:00 04/23/19 20:59 04/21/19 09:15 Folic Acid (Folate) 1 mg DAILY ORAL 04/13/19 09:00 05/10/19 10:59 04/21/19 09:16 Furosemide (Lasix) 80 mg Q12HR@0600,1800 IV 04/12/19 18:00 05/08/19 17:59 04/21/19 16:48 Gabapentin (Neurontin) 600 mg BID ORAL 04/12/19 18:00 05/06/19 17:59 04/21/19 16:46 Guaifenesin/ Dextromethorphan (Robitussin DM Syrup) 5 ml Q4H PRN ORAL For Cough 04/12/19 11:30 05/10/19 19:29 04/16/19 11:49 Metoprolol Tartrate (Lopressor) 25 mg BID ORAL 04/14/19 11:30 05/14/19 11:29 04/21/19 16:47 Morphine Sulfate (Morphine Sulfate) 1 mg Q6H PRN IVP Breakthrough Pain 04/18/19 08:48 04/25/19 08:47 04/21/19 17:11 Ondansetron HCl (Zofran) 4 mg Q6H PRN IVP Nausea & Vomiting 04/12/19 11:45 05/08/19 11:44 Oxycodone/ Acetaminophen (Percocet 5-325) 1 tab Q4H PRN ORAL Severe Pain (Pain Scale 7-10) 04/18/19 08:49 04/25/19 08:48 04/21/19 16:47 Pantoprazole (Protonix) 40 mg EVERY 12 HOURS ORAL 04/12/19 21:00 05/09/19 08:59 04/21/19 09:15 Piperacillin Sod/ Tazobactam Sod 3.375 gm/Sodium Chloride 110 ml @ 27.5 mls/hr Q8H IVPB 04/20/19 08:00 04/27/19 07:59 04/21/19 16:54 Potassium Chloride (K-Dur) 40 meq BID ORAL 04/12/19 18:00 05/06/19 08:59 04/21/19 16:58 Prednisone (predniSONE) 10 mg DAILY ORAL 04/21/19 09:00 05/21/19 08:59 04/21/19 09:16 Mahesh Wise MD Apr 21, 2019 17:50
--- NOTE | 2019-04-21 19:32 | NUR ---
HAND-OFF: Report given to SIMONA THAO.
--- NOTE | 2019-04-21 19:35 | NUR ---
NURSE NOTES: Received patient from KEESHA Lira. Patient resting comfortably in bed, no signs of distress, shortness of breath, or pain noted. Patient ambulates with bathroom privileges and able to make needs known. IV site checked, intact and patent, no signs of bleeding, infiltration, or redness noted. Zosyn currently running. Patient on 4L NC. Fluid restriction endorsed. Fall education provided. Bed in lowest position, brakes on, side rails up x2, and call light within reach. Will continue with plan of care.
[2019-04-21 20:00] VITALS: BP 135/80
[2019-04-21] MEDS: Atorvastatin 20mg tab ORAL SCH (20:13)
[2019-04-22] VITALS: BP 146/76
[2019-04-22] MEDS: Piperacillin/Tazobactam 3.375 GM in NS 110 ML IVPB SCH ×2 (00:05→08:33)
--- NOTE | 2019-04-22 01:57 | NUR ---
NURSE NOTES: Patient complaining of severe pain (10/10), offered percocet for pain, but refused. Patient stated he would like morphine for breakthrough pain when available. Will continue with plan of care.
[2019-04-22] MEDS: Morphine Sulfate 2mg/ml Inj(IV/IM USE ONLY) IVP PRN ×3 (02:24→22:19)
[2019-04-22 04:00] VITALS: BP 152/60
--- NOTE | 2019-04-22 07:16 | NUR ---
HAND-OFF: Report given to KEESHA Lira. Patient in stable condition and plan of care endorsed.
[2019-04-22 08:18] VITALS: BP 165/103
[2019-04-22] MEDS: Aspirin Baby 81mg ORAL SCH (08:33)
[2019-04-22] MEDS: Docusate 100mg cap ORAL SCH ×3 (08:33→15:54)
[2019-04-22] MEDS: Eliquis 5mg tablet ORAL SCH ×2 (08:33→15:54)
[2019-04-22] MEDS: Doxycycline Monohydrate 100mg ORAL SCH (08:33)
[2019-04-22] MEDS: dilTIAZem HCl CD 180mg cap ORAL SCH (08:34)
[2019-04-22] MEDS: oxyCODONE HCL/Acetaminophen 5/325mg ORAL PRN (08:35)
--- NOTE | 2019-04-22 09:01 | General Progress Note ---
Assessment/Plan Assessment/Plan: (1) Lumbar DDD (2) Lumbar Spondylosis (3) Morbid obesity Patient to be continued on Percocet and Morphine Parameters will be continued D/w Dr. Stack and he concurred. Subjective Date patient seen: Apr 22, 2019 Time patient seen: 08:15 - am Allergies: Coded Allergies: RIVAROXABAN (Verified Allergy, Unknown, 04/05/19) Subjective REVIEW OF SYSTEMS: Denies rash, fever, chills at this time, sweating, dizziness, drowsiness, blurred vision, sore throat, change in weight. No nausea, vomiting, diarrhea, or blood in the stool or urine. No dysuria. He is complaining of low back pain. SUBJECTIVE: Patient showing no signs of pain or distress. Pain is at a moderate level using 3 Morphine and 3 Percocet in the last 24hrs. No new complaints at this time. Objective Last 24 Hour Vital Signs Date Time Temp Pulse Resp B/P (MAP) Pulse Ox O2 Delivery O2 Flow Rate FiO2 04/22/19 08:34 71 165/103 04/22/19 08:34 71 165/103 04/22/19 08:34 71 04/22/19 08:18 97.7 71 20 165/103 (123) 99 04/22/19 04:00 58 04/22/19 04:00 97.2 60 20 152/60 (90) 94 04/22/19 04:00 28 04/22/19 01:34 60 20 95 Facial 30 04/22/19 00:00 49 04/22/19 00:00 97.9 58 20 146/76 (99) 96 04/21/19 21:00 Nasal Cannula 4.0 04/21/19 20:00 28 04/21/19 20:00 98 Nasal Cannula 3.0 32 04/21/19 20:00 76 04/21/19 20:00 98.1 60 20 135/80 (98) 98 04/21/19 17:17 98.6 04/21/19 17:17 98.6 04/21/19 16:47 66 130/56 04/21/19 16:00 28 04/21/19 16:00 62 04/21/19 15:47 98.6 66 20 130/56 (80) 97 04/21/19 12:00 97.7 73 20 134/83 (100) 99 04/21/19 12:00 63 04/21/19 12:00 28 04/21/19 09:17 85 134/66 04/21/19 09:16 85 04/21/19 09:15 85 134/66 04/21/19 09:00 Nasal Cannula 4.0 Intake and Output 04/21/19 04/22/19 19:00 07:00 Intake Total 540 ml 400 ml Output Total 1400 ml 600 ml Balance -860 ml -200 ml Intake Oral 540 ml 400 ml Output Urine Total 1400 ml 600 ml # Voids 2 Height (Feet): 5 Height (Inches): 10.00 Weight (Pounds): 411 Objective GENERAL: Alert, awake, and oriented. LUNGS: Decreased breath sounds bilaterally. HEART: S1 and S2 regular. ABDOMEN: Obese.. EXTREMITIES: No cyanosis. No clubbing. NEURO: No changes. Osito Sultana Apr 22, 2019 09:01
--- NOTE | 2019-04-22 09:36 | NUR ---
DISCHARGE PLANNING: PATIENT HAS HOME O2 AND BIPAP IN PLACE; READY FOR DISCHARGE. PT TO SEE PATIENT TODAY FOR HOME WALKER
--- NOTE | 2019-04-22 10:08 | Infectious Diseases Prog Note ---
Assessment/Plan Assessment/Plan IMPRESSION: 1. Leukocytosis, 2. Pulmonary edema/pneumonia & atelectasis 3. Diastolic CHF. 4. VRE colonization. 5. Morbid obesity. 6. COPD with hypercapnic hypoxemic respiratory failure. 7. Hypertension. 8. Hyperkalemia, likely chronic kidney disease. RECOMMENDATIONS: Discontinue Zosyn and doxycycline f/u CBC Subjective ROS Limited/Unobtainable: No Constitutional: Reports: no symptoms Respiratory: Reports: shortness of breath Gastrointestinal/Abdominal: Reports: no symptoms Genitourinary: Reports: no symptoms Neurologic: Reports: no symptoms Allergies: Coded Allergies: RIVAROXABAN (Verified Allergy, Unknown, 04/05/19) Objective Vital Signs Last 24 Hour Vital Signs Date Time Temp Pulse Resp B/P (MAP) Pulse Ox O2 Delivery O2 Flow Rate FiO2 04/22/19 09:02 98 Nasal Cannula 3.0 32 04/22/19 08:34 71 165/103 04/22/19 08:34 71 165/103 04/22/19 08:34 71 04/22/19 08:18 97.7 71 20 165/103 (123) 99 04/22/19 04:00 58 04/22/19 04:00 97.2 60 20 152/60 (90) 94 04/22/19 04:00 28 04/22/19 01:34 60 20 95 Facial 30 04/22/19 00:00 49 04/22/19 00:00 97.9 58 20 146/76 (99) 96 04/21/19 21:00 Nasal Cannula 4.0 04/21/19 20:00 28 04/21/19 20:00 98 Nasal Cannula 3.0 32 04/21/19 20:00 76 04/21/19 20:00 98.1 60 20 135/80 (98) 98 04/21/19 17:17 98.6 04/21/19 17:17 98.6 04/21/19 16:47 66 130/56 04/21/19 16:00 28 04/21/19 16:00 62 04/21/19 15:47 98.6 66 20 130/56 (80) 97 04/21/19 12:00 97.7 73 20 134/83 (100) 99 04/21/19 12:00 63 04/21/19 12:00 28 Height (Feet): 5 Height (Inches): 10.00 Weight (Pounds): 411 General Appearance: no acute distress, other - obese Respiratory/Chest: decreased breath sounds, other - oxygen by nasal cannula Cardiovascular: normal rate Abdomen: soft, non tender Extremities: other - legs edema Neurologic/Psychiatric: alert, oriented x 3, responsive Current Medications Medications (Trade) Dose Ordered Sig/David Route PRN Reason Start Time Stop Time Status Last Admin Dose Admin Acetaminophen (Tylenol) 650 mg Q6H PRN ORAL Mild Pain/Temp > 100.5 04/12/19 12:30 05/08/19 18:27 Acetazolamide (Diamox) 250 mg DAILY ORAL 04/13/19 09:00 05/10/19 11:59 04/22/19 08:33 Apixaban (Eliquis) 5 mg BID ORAL 04/12/19 18:00 05/11/19 17:59 04/22/19 08:33 Aspirin (ASA) 81 mg DAILY ORAL 04/13/19 09:00 05/06/19 08:59 04/22/19 08:33 Atorvastatin Calcium (Lipitor) 40 mg BEDTIME ORAL 04/12/19 21:00 05/06/19 20:59 04/21/19 20:13 Clonidine HCl (Catapres Tab) 0.1 mg Q4H PRN ORAL bp over 165 syst 04/12/19 11:45 05/08/19 11:44 04/15/19 04:37 Digoxin (Lanoxin) 0.25 mg DAILY ORAL 04/13/19 09:00 05/11/19 08:59 04/22/19 08:34 Diltiazem HCl (Cardizem CD) 360 mg DAILY ORAL 04/14/19 09:00 05/14/19 08:59 04/22/19 08:34 Docusate Sodium (Colace) 100 mg THREE TIMES A DAY ORAL 04/12/19 13:00 05/09/19 08:59 04/22/19 08:33 Doxycycline Monohydrate (Doxycycline Monohydrate) 100 mg EVERY 12 HOURS ORAL 04/16/19 21:00 04/23/19 20:59 04/22/19 08:33 Folic Acid (Folate) 1 mg DAILY ORAL 04/13/19 09:00 05/10/19 10:59 04/22/19 08:33 Furosemide (Lasix) 80 mg Q12HR@0600,1800 IV 04/12/19 18:00 05/08/19 17:59 04/22/19 05:50 Gabapentin (Neurontin) 600 mg BID ORAL 04/12/19 18:00 05/06/19 17:59 04/22/19 08:34 Guaifenesin/ Dextromethorphan (Robitussin DM Syrup) 5 ml Q4H PRN ORAL For Cough 04/12/19 11:30 05/10/19 19:29 04/16/19 11:49 Metoprolol Tartrate (Lopressor) 25 mg BID ORAL 04/14/19 11:30 05/14/19 11:29 04/22/19 08:34 Morphine Sulfate (Morphine Sulfate) 1 mg Q6H PRN IVP Breakthrough Pain 04/18/19 08:48 04/25/19 08:47 04/22/19 02:24 Ondansetron HCl (Zofran) 4 mg Q6H PRN IVP Nausea & Vomiting 04/12/19 11:45 05/08/19 11:44 Oxycodone/ Acetaminophen (Percocet 5-325) 1 tab Q4H PRN ORAL Severe Pain (Pain Scale 7-10) 04/18/19 08:49 04/25/19 08:48 04/22/19 08:35 Pantoprazole (Protonix) 40 mg EVERY 12 HOURS ORAL 04/12/19 21:00 05/09/19 08:59 04/22/19 08:33 Piperacillin Sod/ Tazobactam Sod 3.375 gm/Sodium Chloride 110 ml @ 27.5 mls/hr Q8H IVPB 04/20/19 08:00 04/27/19 07:59 04/22/19 08:33 Potassium Chloride (K-Dur) 40 meq BID ORAL 04/12/19 18:00 05/06/19 08:59 04/22/19 08:36 Prednisone (predniSONE) 10 mg DAILY ORAL 04/21/19 09:00 05/21/19 08:59 04/22/19 08:34 Bill Pak MD Apr 22, 2019 10:08
[2019-04-22 10:36] LABS: BASOPHILS % (AUTO) 1.2 % (0.0-2.0); HEMATOCRIT 42.2 % (42.0-52.0); HEMOGLOBIN 13.4 G/DL (14.2-18.0); MEAN CORPUSCULAR VOLUME 80 FL (80-99); MONOCYTES % (AUTO) 9.4 % (1.0-10.0); NEUTROPHILS % (AUTO) 72.4 % (45.0-75.0); PLATELET COUNT 171 K/UL (150-450); RED BLOOD COUNT 5.29 M/UL (4.70-6.10); RED CELL DISTRIBUTION WIDTH 16.8 % (11.6-14.8); WHITE BLOOD COUNT 13.2 K/UL (4.8-10.8)
--- NOTE | 2019-04-22 11:20 | NUR ---
PT EVALUATION NOTE Patient seen for initial evaluation. Patient presents with generalized weakness which affects patient's ability to perform mobility tasks safely. Patient requires supervision for bed mobility and transfers with and without FWW. Patient able to ambulate 30 ft with and without FWW, slow velocity, on supplemental O2 via NC. Patient will benefit from skilled inpatient PT intervention to address strength, safety and endurance for improved level of functional mobility. Recommend discharge home with home PT once medically cleared by MD. Patient has 4 wheeled walker, FWW, SPC and crutches at home; patient requesting shower chair. Addendum: 04/22/19 at 1258 by MARY GRACE SORENSEN PT Amended: Links added.
[2019-04-22 11:21] VITALS: BP 137/69
[2019-04-22 11:26] LABS: ALANINE AMINOTRANSFERASE 32 U/L (12-78); ALKALINE PHOSPHATASE 60 U/L (46-116); ANION GAP 5 mmol/L (5-15); ASPARTATE AMINO TRANSFERASE 11 U/L (15-37); BILIRUBIN,TOTAL 0.5 MG/DL (0.2-1.0); BLOOD UREA NITROGEN 26 mg/dL (7-18); CALCIUM 8.6 MG/DL (8.5-10.1); CARBON DIOXIDE 34 MMOL/L (21-32); CHLORIDE 106 MMOL/L (98-107); CREATININE 1.4 MG/DL (0.55-1.30); PHOSPHORUS 3.6 MG/DL (2.5-4.9); POTASSIUM 3.2 MMOL/L (3.5-5.1); SODIUM 144 MMOL/L (136-145)
--- NOTE | 2019-04-22 11:27 | Hematology/Onc Progress Note ---
Assessment/Plan Assessment/Plan Assessment and Recs: # Secondary hypercoagulable disorder, has afib with rvr, w/u as per cards --> initially on heparin gtt --> NOW OFF --> cardizem po started for rhythm control --> per cards agree with apixaban --> also is on asa # Leukocytosis is likely due to steroid use --> wbc trend 15-->20k-->18-->19-->22-->21.1-->12.9-->19->13 --> steroid taper --> abx as per id --> zosyn / doxy # Hypokalemia --> per renal, replete k as needed, per [place] --> diuresis prn # CHF (congestive heart failure) v copd exacerbation --> on lasix bid dosing, per cards --> bipap afterload reduction # Obesity --> weight loss recommended --> lifestyle modification # Afib with rvr per cards --> on apixban --> rate control/rhythm # Dvt ppx apix DW Rn and appreciate consultation. Subjective Constitutional: Denies: no symptoms, chills, fever, malaise, weakness, other HEENT: Denies: no symptoms, eye pain, blurred vision, tearing, double vision, ear pain, ear discharge, nose pain, nose congestion, throat pain, throat swelling, mouth pain, mouth swelling, other Respiratory: Denies: no symptoms, cough, shortness of breath, SOB with excertion, SOB at rest, sputum, wheezing, other Gastrointestinal/Abdominal: Denies: no symptoms, abdomen distended, abdominal pain, black stools, tarry stools, blood in stool, constipated, diarrhea, difficulty swallowing, nausea, poor appetite, poor fluid intake, rectal bleeding , vomiting, other Genitourinary: Denies: no symptoms, burning, discharge, frequency, flank pain, hematuria, incontinence, pain, urgency, other Endocrine: Denies: no symptoms, excessive sweating, flushing, intolerance to cold, intolerance to heat, increased hunger, increased thirst, increased urine, unexplained weight gain, unexplained weight loss, other Allergies: Coded Allergies: RIVAROXABAN (Verified Allergy, Unknown, 04/05/19) Subjective 04/11: remains on diltz and heparin gtt, oon bipap o/n 04/12: bipap overnight and 2lnc, as per cards on apixaban, still bp high 04/13: transferred to tele, awake and alert, no acute events, cbc ordered 04/14: Dr. Doll aware, afib with rvr, is on dig / cardizem, now nsr, no bleeding 04/15: wbc remains higher but likely due to steroids, refusing fluid restriction 04/17: awake and alert, cxr w/ opacities, on abx, nc 4L 04/18: noncompliant with fluid restriction, no bleeding, no night sweats 04/19: resting, no events, bipap overnight, seen by Howard 04/20: awake and alert, no acute events, cxr unchanged 04/21: no bleeding noted, on abx as per Dr. Pak 04/22: wbc is better, dw id, and still with abd pain Objective Objective Current Medications Medications (Trade) Dose Ordered Sig/David Route PRN Reason Start Time Stop Time Status Last Admin Dose Admin Acetaminophen (Tylenol) 650 mg Q6H PRN ORAL Mild Pain/Temp > 100.5 04/12/19 12:30 05/08/19 18:27 Acetazolamide (Diamox) 250 mg DAILY ORAL 04/13/19 09:00 05/10/19 11:59 04/22/19 08:33 Apixaban (Eliquis) 5 mg BID ORAL 04/12/19 18:00 05/11/19 17:59 04/22/19 08:33 Aspirin (ASA) 81 mg DAILY ORAL 04/13/19 09:00 05/06/19 08:59 04/22/19 08:33 Atorvastatin Calcium (Lipitor) 40 mg BEDTIME ORAL 04/12/19 21:00 05/06/19 20:59 04/21/19 20:13 Clonidine HCl (Catapres Tab) 0.1 mg Q4H PRN ORAL bp over 165 syst 04/12/19 11:45 05/08/19 11:44 04/15/19 04:37 Digoxin (Lanoxin) 0.25 mg DAILY ORAL 04/13/19 09:00 05/11/19 08:59 04/22/19 08:34 Diltiazem HCl (Cardizem CD) 360 mg DAILY ORAL 04/14/19 09:00 05/14/19 08:59 04/22/19 08:34 Docusate Sodium (Colace) 100 mg THREE TIMES A DAY ORAL 04/12/19 13:00 05/09/19 08:59 04/22/19 08:33 Folic Acid (Folate) 1 mg DAILY ORAL 04/13/19 09:00 05/10/19 10:59 04/22/19 08:33 Furosemide (Lasix) 80 mg Q12HR@0600,1800 IV 04/12/19 18:00 05/08/19 17:59 04/22/19 05:50 Gabapentin (Neurontin) 600 mg BID ORAL 04/12/19 18:00 05/06/19 17:59 04/22/19 08:34 Guaifenesin/ Dextromethorphan (Robitussin DM Syrup) 5 ml Q4H PRN ORAL For Cough 04/12/19 11:30 05/10/19 19:29 04/16/19 11:49 Metoprolol Tartrate (Lopressor) 25 mg BID ORAL 04/14/19 11:30 05/14/19 11:29 04/22/19 08:34 Morphine Sulfate (Morphine Sulfate) 1 mg Q6H PRN IVP Breakthrough Pain 04/18/19 08:48 04/25/19 08:47 04/22/19 02:24 Ondansetron HCl (Zofran) 4 mg Q6H PRN IVP Nausea & Vomiting 04/12/19 11:45 05/08/19 11:44 Oxycodone/ Acetaminophen (Percocet 5-325) 1 tab Q4H PRN ORAL Severe Pain (Pain Scale 7-10) 04/18/19 08:49 04/25/19 08:48 04/22/19 08:35 Pantoprazole (Protonix) 40 mg EVERY 12 HOURS ORAL 04/12/19 21:00 05/09/19 08:59 04/22/19 08:33 Potassium Chloride (K-Dur) 40 meq BID ORAL 04/12/19 18:00 05/06/19 08:59 04/22/19 08:36 Prednisone (predniSONE) 10 mg DAILY ORAL 04/21/19 09:00 05/21/19 08:59 04/22/19 08:34 Last 24 Hour Vital Signs Date Time Temp Pulse Resp B/P (MAP) Pulse Ox O2 Delivery O2 Flow Rate FiO2 04/22/19 11:21 97.9 76 20 137/69 (91) 97 04/22/19 10:31 Nasal Cannula 4.0 04/22/19 09:05 97.7 04/22/19 09:02 98 Nasal Cannula 3.0 32 04/22/19 08:34 71 165/103 04/22/19 08:34 71 165/103 04/22/19 08:34 71 04/22/19 08:18 97.7 71 20 165/103 (123) 99 04/22/19 08:00 67 04/22/19 08:00 28 04/22/19 04:00 58 04/22/19 04:00 97.2 60 20 152/60 (90) 94 04/22/19 04:00 28 04/22/19 01:34 60 20 95 Facial 30 04/22/19 00:00 49 04/22/19 00:00 97.9 58 20 146/76 (99) 96 04/21/19 21:00 Nasal Cannula 4.0 04/21/19 20:00 28 04/21/19 20:00 98 Nasal Cannula 3.0 32 04/21/19 20:00 76 04/21/19 20:00 98.1 60 20 135/80 (98) 98 04/21/19 17:17 98.6 04/21/19 16:47 66 130/56 04/21/19 16:00 28 04/21/19 16:00 62 04/21/19 15:47 98.6 66 20 130/56 (80) 97 04/21/19 12:00 97.7 73 20 134/83 (100) 99 04/21/19 12:00 63 04/21/19 12:00 28 04/21/19 09:17 85 134/66 04/21/19 09:16 85 04/21/19 09:15 85 134/66 04/21/19 09:00 Nasal Cannula 4.0 04/21/19 08:02 96.8 85 20 134/66 (88) 96 04/21/19 08:00 78 04/21/19 08:00 96 Nasal Cannula 3.0 32 04/21/19 08:00 28 04/21/19 04:06 67 21 100 Facial 30 04/21/19 04:02 78 20 97 Bi-Pap 30 04/21/19 04:00 64 04/21/19 04:00 28 04/21/19 04:00 98.8 68 22 160/72 (101) 98 04/21/19 02:51 80 23 100 Facial 30 04/21/19 00:00 62 04/21/19 00:00 97.7 61 22 132/66 (88) 98 04/20/19 21:00 Nasal Cannula 4.0 04/20/19 20:00 97.4 63 22 128/63 (84) 96 04/20/19 20:00 60 04/20/19 20:00 28 04/20/19 19:52 94 Nasal Cannula 4.0 36 04/20/19 17:41 93 137/73 04/20/19 16:00 28 04/20/19 16:00 63 04/20/19 16:00 28 04/20/19 16:00 97.9 93 18 137/73 (94) 96 04/20/19 12:00 97.7 94 20 136/84 (101) 96 04/20/19 12:00 28 Intake and Output 04/21/19 04/22/19 19:00 07:00 Intake Total 540 ml 400 ml Output Total 1400 ml 600 ml Balance -860 ml -200 ml Intake Oral 540 ml 400 ml Output Urine Total 1400 ml 600 ml # Voids 2 Labs Test 04/20/19 07:16 04/21/19 05:52 04/22/19 09:55 White Blood Count 16.9 K/UL (4.8-10.8) 18.9 K/UL (4.8-10.8) 13.2 K/UL (4.8-10.8) Red Blood Count 5.57 M/UL (4.70-6.10) 5.12 M/UL (4.70-6.10) 5.29 M/UL (4.70-6.10) Hemoglobin 14.1 G/DL (14.2-18.0) 13.0 G/DL (14.2-18.0) 13.4 G/DL (14.2-18.0) Hematocrit 44.7 % (42.0-52.0) 41.0 % (42.0-52.0) 42.2 % (42.0-52.0) Mean Corpuscular Volume 80 FL (80-99) 80 FL (80-99) 80 FL (80-99) Mean Corpuscular Hemoglobin 25.3 PG (27.0-31.0) 25.5 PG (27.0-31.0) 25.4 PG (27.0-31.0) Mean Corpuscular Hemoglobin Concent 31.5 G/DL (32.0-36.0) 31.9 G/DL (32.0-36.0) 31.8 G/DL (32.0-36.0) Red Cell Distribution Width 17.1 % (11.6-14.8) 16.7 % (11.6-14.8) 16.8 % (11.6-14.8) Platelet Count 188 K/UL (150-450) 172 K/UL (150-450) 171 K/UL (150-450) Mean Platelet Volume 10.0 FL (6.5-10.1) 10.3 FL (6.5-10.1) 9.8 FL (6.5-10.1) Neutrophils (%) (Auto) 76.2 % (45.0-75.0) % (45.0-75.0) 72.4 % (45.0-75.0) Lymphocytes (%) (Auto) 14.1 % (20.0-45.0) % (20.0-45.0) 15.0 % (20.0-45.0) Monocytes (%) (Auto) 7.7 % (1.0-10.0) % (1.0-10.0) 9.4 % (1.0-10.0) Eosinophils (%) (Auto) 1.5 % (0.0-3.0) % (0.0-3.0) 2.0 % (0.0-3.0) Basophils (%) (Auto) 0.5 % (0.0-2.0) % (0.0-2.0) 1.2 % (0.0-2.0) Differential Total Cells Counted 100 Neutrophils % (Manual) 73 % (45-75) Lymphocytes % (Manual) 15 % (20-45) Monocytes % (Manual) 11 % (1-10) Eosinophils % (Manual) 1 % (0-3) Basophils % (Manual) 0 % (0-2) Band Neutrophils 0 % (0-8) Platelet Estimate Adequate Platelet Morphology Normal Anisocytosis 1+ Sodium Level 144 MMOL/L (136-145) Potassium Level 3.2 MMOL/L (3.5-5.1) Chloride Level 106 MMOL/L (98-107) Carbon Dioxide Level 34 MMOL/L (21-32) Anion Gap 5 mmol/L (5-15) Blood Urea Nitrogen 26 mg/dL (7-18) Creatinine 1.4 MG/DL (0.55-1.30) Estimat Glomerular Filtration Rate 54.1 mL/min (>60) Glucose Level 148 MG/DL (74-106) Uric Acid 5.9 MG/DL (2.6-7.2) Calcium Level 8.6 MG/DL (8.5-10.1) Phosphorus Level 3.6 MG/DL (2.5-4.9) Magnesium Level 1.9 MG/DL (1.8-2.4) Total Bilirubin 0.5 MG/DL (0.2-1.0) Aspartate Amino Transf (AST/SGOT) 11 U/L (15-37) Alanine Aminotransferase (ALT/SGPT) 32 U/L (12-78) Alkaline Phosphatase 60 U/L (46-116) C-Reactive Protein, Quantitative 1.9 mg/dL (0.00-0.90) Pro-B-Type Natriuretic Peptide 293 pg/mL (0-125) Total Protein 6.1 G/DL (6.4-8.2) Albumin 3.0 G/DL (3.4-5.0) Globulin 3.1 g/dL Albumin/Globulin Ratio 1.0 (1.0-2.7) Height (Feet): 5 Height (Inches): 10.00 Weight (Pounds): 411 Objective Physical Exam General: Awake and alert, nad HEENT: NC/AT. EOMI. tympanic membranes are deeply erythematous though nonbulging , no effusion Cardiovascular: RRR. S1 and S2 normal. No murmur appreciated Resp: Normal work of breathing.++ wheezing, NC 4L++ Abdomen: Abdomen is soft, nondistended. Nontender Skin: Intact. No abrasions, laceration or rash over the exposed skin MSK: Normal tone and bulk. Moving all extremities. No obvious deformity. Ext: 1+ edema Harsh Lehman MD Apr 22, 2019 11:27
[2019-04-22 15:48] VITALS: BP 134/71
--- NOTE | 2019-04-22 16:13 | Nephrology Progress Note ---
Assessment/Plan Problem List: (1) Hypokalemia (2) CHF (congestive heart failure) (3) Renal failure (4) Obesity, morbid, BMI 50 or higher (5) CO2 retention (6) COPD (chronic obstructive pulmonary disease) Assessment elevated Cr likely due to diuresis Obesity , NATASHA AT fib with FVR HTN Congestive heart failure, likely diastolic dysfunction. EF 60% Recurrent NSVT. No syncope. Hypertension. Morbid obesity. COPD. Lipidemia. Plan refuses blood work at times high WBCs ? steroids related Cr rising Keep BP in check Monitor lytes B12 and Folic acid Diamox PO per orders per cardio and pulmonary taper steroids as possible Subjective ROS Limited/Unobtainable: No Constitutional: Reports: malaise, weakness Objective Objective Last 24 Hour Vital Signs Date Time Temp Pulse Resp B/P (MAP) Pulse Ox O2 Delivery O2 Flow Rate FiO2 04/22/19 15:55 65 134/71 04/22/19 15:48 98.2 65 20 134/71 (92) 98 04/22/19 12:38 97.9 04/22/19 12:00 65 04/22/19 12:00 28 04/22/19 11:21 97.9 76 20 137/69 (91) 97 04/22/19 10:31 Nasal Cannula 4.0 04/22/19 09:05 97.7 04/22/19 09:02 98 Nasal Cannula 3.0 32 04/22/19 08:34 71 165/103 04/22/19 08:34 71 165/103 04/22/19 08:34 71 04/22/19 08:18 97.7 71 20 165/103 (123) 99 04/22/19 08:00 67 04/22/19 08:00 28 04/22/19 04:00 58 04/22/19 04:00 97.2 60 20 152/60 (90) 94 04/22/19 04:00 28 04/22/19 01:34 60 20 95 Facial 30 04/22/19 00:00 49 04/22/19 00:00 97.9 58 20 146/76 (99) 96 04/21/19 21:00 Nasal Cannula 4.0 04/21/19 20:00 28 04/21/19 20:00 98 Nasal Cannula 3.0 32 04/21/19 20:00 76 04/21/19 20:00 98.1 60 20 135/80 (98) 98 04/21/19 16:47 66 130/56 Intake and Output 04/21/19 04/22/19 19:00 07:00 Intake Total 540 ml 400 ml Output Total 1400 ml 600 ml Balance -860 ml -200 ml Intake Oral 540 ml 400 ml Output Urine Total 1400 ml 600 ml # Voids 2 Laboratory Tests 04/22/19 09:55: White Blood Count 13.2H, Red Blood Count 5.29, Hemoglobin 13.4L, Hematocrit 42.2 , Mean Corpuscular Volume 80, Mean Corpuscular Hemoglobin 25.4L, Mean Corpuscular Hemoglobin Concent 31.8L, Red Cell Distribution Width 16.8H, Platelet Count 171, Mean Platelet Volume 9.8, Neutrophils (%) (Auto) 72.4, Lymphocytes (%) (Auto) 15.0L, Monocytes (%) (Auto) 9.4, Eosinophils (%) (Auto) 2.0, Basophils (%) (Auto) 1.2, Sodium Level 144, Potassium Level 3.2L, Chloride Level 106, Carbon Dioxide Level 34H, Anion Gap 5, Blood Urea Nitrogen 26H, Creatinine 1.4H, Estimat Glomerular Filtration Rate 54.1, Glucose Level 148H, Uric Acid 5.9, Calcium Level 8.6, Phosphorus Level 3.6, Magnesium Level 1.9, Total Bilirubin 0.5, Aspartate Amino Transf (AST/SGOT) 11L, Alanine Aminotransferase (ALT/SGPT) 32, Alkaline Phosphatase 60, C-Reactive Protein, Quantitative 1.9H, Pro-B-Type Natriuretic Peptide 293H, Total Protein 6.1L, Albumin 3.0L, Globulin 3.1, Albumin/Globulin Ratio 1.0 Height (Feet): 5 Height (Inches): 10.00 Weight (Pounds): 411 General Appearance: no apparent distress, lethargic Cardiovascular: normal rate Respiratory/Chest: decreased breath sounds Abdomen: distended Objective no change Bebeto Yin MD Apr 22, 2019 16:13
--- NOTE | 2019-04-22 16:50 | NUR ---
per Dr. Yin patient clear to discharge by his point of view
--- NOTE | 2019-04-22 16:54 | NUR ---
CASE MANAGEMENT:REVIEW 04/22/19 SI: CHF. COPD . LOW BACK PAIN . 98.2 65 20 134/71 98% ON 4L/NC ; FI02 28 WBC 13.2 K+3.2 CO2 34 BUN 26 CREAT 1.4 BG 148 IS: IV ZOSYN BID IV LASIX BID DOXYCYCLINE PO BID K-DUR PO BID PREDNISONE PO QD LOPRESSOR PO BID CARDIZEM PO QD CLONIDINE Q4/PRN DIGOXIN PO QD DIAMOX PO QD ROBITUSSIN PO Q4/PRN FOLATE PO QD LIPITOR PO QHS PROTONIX PO Q12 ASA PO QD NEURONTIN PO BID IV MORPHINE Q6HR : 2E TELE UNIT DCP: FROM HOME PLAN: HOME WITH HH HOME WITH O2 AND BIPAP ESTABLISHED SHOWER CHAIR AND WALKER TO BE DELIVERED TO HOME
--- NOTE | 2019-04-22 17:23 | NUR ---
per Dr. Lawrence patient clear to discharge in his point of view
--- NOTE | 2019-04-22 17:57 | NUR ---
patient clear by , , Dr. Wise to home with home health. 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
--- NOTE | 2019-04-22 19:15 | NUR ---
NURSE NOTES: Received report from KEESHA Lira. Patient is awake, sitting on a chair. A/Ox4. Able to make needs known. Denies pain at this time. No signs of acute distress noted. On oxygen via NC @ 4LPM. Checked IV site and flushed. No signs of erythema, bleeding or infiltration noted. Will continue to monitor.
--- NOTE | 2019-04-22 19:20 | NUR ---
HAND-OFF: Report given to Jared THAO.
[2019-04-22 20:00] VITALS: BP 134/71
--- NOTE | 2019-04-22 20:30 | NUR ---
NURSE NOTES: [facility] ambulance called and informed clam picker time will be 2139. Informed patient regarding ETA of ambulance.
--- NOTE | 2019-04-22 20:39 | Pulmonology Progress Note ---
Assessment/Plan Assessment/Plan Pulmonary Progress Note HPI The patient is a 48-year-old man with history of obesity and Congestive Heart Failure, admitted with chest pain, shortness of breath, fevers and chills as well as sore throat and ear pain. Denies cough or sputum production, vomiting or diarrhea H/o Afib on AC, h/o NATASHA on CPAP Less SOB, using BiPAP at night and PRN, up in chair, no current ear pain On IV antibiotics for possible Pneumonia, persistent Leukocytosis CXR no change, bilateral basal atelectasis Past Medical History: Obesity, Congestive Heart Failure, Chronic Obstructive Pulmonary Disease, Diabetes, Hypertension, NATASHA, Obesity Allergies: RIVAROXABAN All Other Systems: negative except mentioned in HPI Physical Exam Vital Signs Noted General: Awake and alert, no acute distress, obese HEENT: NC/AT. EOMI. tympanic membranes are erythematous, moist mm Cardiovascular: RRR. S1 and S2 normal. No murmur appreciated. Mild edema noted Resp: Normal work of breathing. CTAB Abdomen: Abdomen is soft, nondistended. Nontender Skin: Intact. No abrasions, laceration or rash over the exposed skin Extremities: Normal tone and bulk. Moving all extremities. No obvious deformity. Neuro: Awake and alert. Mentating appropriately. Impression: Congestive heart failure Viral Illness Chronic Obstructive Pulmonary Disease Possible Pneumonia Obesity Obstructive Sleep Apnea Hypertension Diabetes Plan - Diuresis PRN - Steroids, wean as tolerated - 10 daily, can be converted to Medrol dose pack on DC - Elevated WCC, antibiotics for possible pneumonia per ID - HHN - O2 PRN - BiPAP PRN/QHS - ISS - PPX - INTERNET MARKETING EXECUTIVE Medications Laboratory Tests Noted EKG: Sinus rhythm with PACs. No ST segment changes. Normal intervals CXR: Obscured left lateral hemidiaphragm, could indicate pleural fluid and/or parenchymal disease Elevated right hemidiaphragm Borderline cardiomegaly Subjective ROS Limited/Unobtainable: No Allergies: Coded Allergies: RIVAROXABAN (Verified Allergy, Unknown, 04/05/19) Objective Last 24 Hour Vital Signs Date Time Temp Pulse Resp B/P (MAP) Pulse Ox O2 Delivery O2 Flow Rate FiO2 04/22/19 20:02 97 Nasal Cannula 3.0 32 04/22/19 16:00 69 04/22/19 16:00 28 04/22/19 15:55 65 134/71 04/22/19 15:48 98.2 65 20 134/71 (92) 98 04/22/19 12:38 97.9 04/22/19 12:00 65 04/22/19 12:00 28 04/22/19 11:21 97.9 76 20 137/69 (91) 97 04/22/19 10:31 Nasal Cannula 4.0 04/22/19 09:05 97.7 04/22/19 09:02 98 Nasal Cannula 3.0 32 04/22/19 08:34 71 165/103 04/22/19 08:34 71 165/103 04/22/19 08:34 71 04/22/19 08:18 97.7 71 20 165/103 (123) 99 04/22/19 08:00 67 04/22/19 08:00 28 04/22/19 04:00 58 04/22/19 04:00 97.2 60 20 152/60 (90) 94 04/22/19 04:00 28 04/22/19 01:34 60 20 95 Facial 30 04/22/19 00:00 49 04/22/19 00:00 97.9 58 20 146/76 (99) 96 04/21/19 21:00 Nasal Cannula 4.0 Intake and Output 04/21/19 04/22/19 19:00 07:00 Intake Total 540 ml 400 ml Output Total 1400 ml 600 ml Balance -860 ml -200 ml Intake Oral 540 ml 400 ml Output Urine Total 1400 ml 600 ml # Voids 2 Laboratory Tests 04/22/19 09:55: White Blood Count 13.2H, Red Blood Count 5.29, Hemoglobin 13.4L, Hematocrit 42.2 , Mean Corpuscular Volume 80, Mean Corpuscular Hemoglobin 25.4L, Mean Corpuscular Hemoglobin Concent 31.8L, Red Cell Distribution Width 16.8H, Platelet Count 171, Mean Platelet Volume 9.8, Neutrophils (%) (Auto) 72.4, Lymphocytes (%) (Auto) 15.0L, Monocytes (%) (Auto) 9.4, Eosinophils (%) (Auto) 2.0, Basophils (%) (Auto) 1.2, Sodium Level 144, Potassium Level 3.2L, Chloride Level 106, Carbon Dioxide Level 34H, Anion Gap 5, Blood Urea Nitrogen 26H, Creatinine 1.4H, Estimat Glomerular Filtration Rate 54.1, Glucose Level 148H, Uric Acid 5.9, Calcium Level 8.6, Phosphorus Level 3.6, Magnesium Level 1.9, Total Bilirubin 0.5, Aspartate Amino Transf (AST/SGOT) 11L, Alanine Aminotransferase (ALT/SGPT) 32, Alkaline Phosphatase 60, C-Reactive Protein, Quantitative 1.9H, Pro-B-Type Natriuretic Peptide 293H, Total Protein 6.1L, Albumin 3.0L, Globulin 3.1, Albumin/Globulin Ratio 1.0 Current Medications Medications (Trade) Dose Ordered Sig/David Route PRN Reason Start Time Stop Time Status Last Admin Dose Admin Acetaminophen (Tylenol) 650 mg Q6H PRN ORAL Mild Pain/Temp > 100.5 04/12/19 12:30 05/08/19 18:27 Acetazolamide (Diamox) 250 mg DAILY ORAL 04/13/19 09:00 05/10/19 11:59 04/22/19 08:33 Apixaban (Eliquis) 5 mg BID ORAL 04/12/19 18:00 05/11/19 17:59 04/22/19 15:54 Aspirin (ASA) 81 mg DAILY ORAL 04/13/19 09:00 05/06/19 08:59 04/22/19 08:33 Atorvastatin Calcium (Lipitor) 40 mg BEDTIME ORAL 04/12/19 21:00 05/06/19 20:59 04/21/19 20:13 Clonidine HCl (Catapres Tab) 0.1 mg Q4H PRN ORAL bp over 165 syst 04/12/19 11:45 05/08/19 11:44 04/15/19 04:37 Digoxin (Lanoxin) 0.25 mg DAILY ORAL 04/13/19 09:00 05/11/19 08:59 04/22/19 08:34 Diltiazem HCl (Cardizem CD) 360 mg DAILY ORAL 04/14/19 09:00 05/14/19 08:59 04/22/19 08:34 Docusate Sodium (Colace) 100 mg THREE TIMES A DAY ORAL 04/12/19 13:00 05/09/19 08:59 04/22/19 15:54 Folic Acid (Folate) 1 mg DAILY ORAL 04/13/19 09:00 05/10/19 10:59 04/22/19 08:33 Furosemide (Lasix) 80 mg Q12HR@0600,1800 IV 04/12/19 18:00 05/08/19 17:59 04/22/19 15:53 Gabapentin (Neurontin) 600 mg BID ORAL 04/12/19 18:00 05/06/19 17:59 04/22/19 15:55 Guaifenesin/ Dextromethorphan (Robitussin DM Syrup) 5 ml Q4H PRN ORAL For Cough 04/12/19 11:30 05/10/19 19:29 04/16/19 11:49 Metoprolol Tartrate (Lopressor) 25 mg BID ORAL 04/14/19 11:30 05/14/19 11:29 04/22/19 15:55 Morphine Sulfate (Morphine Sulfate) 1 mg Q6H PRN IVP Breakthrough Pain 04/18/19 08:48 04/25/19 08:47 04/22/19 12:08 Ondansetron HCl (Zofran) 4 mg Q6H PRN IVP Nausea & Vomiting 04/12/19 11:45 05/08/19 11:44 Oxycodone/ Acetaminophen (Percocet 5-325) 1 tab Q4H PRN ORAL Severe Pain (Pain Scale 7-10) 04/18/19 08:49 04/25/19 08:48 04/22/19 08:35 Pantoprazole (Protonix) 40 mg EVERY 12 HOURS ORAL 04/12/19 21:00 05/09/19 08:59 04/22/19 08:33 Potassium Chloride (K-Dur) 40 meq BID ORAL 04/12/19 18:00 05/06/19 08:59 04/22/19 15:54 Prednisone (predniSONE) 10 mg DAILY ORAL 04/21/19 09:00 05/21/19 08:59 04/22/19 08:34 Mahesh Wise MD Apr 22, 2019 20:39
[2019-04-22] MEDS: Atorvastatin 20mg tab ORAL SCH (22:18)
--- NOTE | 2019-04-22 22:30 | NUR ---
NURSE NOTES: [facility] ambulance called and informed shrimp picker time will be 2139. Informed patient regarding ETA of ambulance. Addendum: 04/23/19 at 0303 by Cher Coleman RN Wrong time
--- NOTE | 2019-04-22 22:30 | NUR ---
NURSE NOTES: Follow up [facility] and spoke with LAKEISHA Shelby 45 mins. Informed patient regarding ambulance arrival.
--- NOTE | 2019-04-22 22:58 | General Progress Note ---
Assessment/Plan Problem List: (1) Hypokalemia ICD Codes: E87.6 - Hypokalemia SNOMED: 13314813 (2) CHF (congestive heart failure) ICD Codes: I50.9 - Heart failure, unspecified SNOMED: 46616093 (3) Lower back pain ICD Codes: M54.5 - Low back pain SNOMED: 808965422 Status: progressing Assessment/Plan: persistent leukocytosis copd low k will dc if cleared by pulmonary and renal and cardiology Subjective ROS Limited/Unobtainable: Yes Allergies: Coded Allergies: RIVAROXABAN (Verified Allergy, Unknown, 04/05/19) Objective Last 24 Hour Vital Signs Date Time Temp Pulse Resp B/P (MAP) Pulse Ox O2 Delivery O2 Flow Rate FiO2 04/22/19 21:00 Nasal Cannula 4.0 04/22/19 20:02 97 Nasal Cannula 3.0 32 04/22/19 20:00 4.0 36 04/22/19 16:00 69 04/22/19 16:00 28 04/22/19 15:55 65 134/71 04/22/19 15:48 98.2 65 20 134/71 (92) 98 04/22/19 12:38 97.9 04/22/19 12:00 65 04/22/19 12:00 28 04/22/19 11:21 97.9 76 20 137/69 (91) 97 04/22/19 10:31 Nasal Cannula 4.0 04/22/19 09:05 97.7 04/22/19 09:02 98 Nasal Cannula 3.0 32 04/22/19 08:34 71 165/103 04/22/19 08:34 71 165/103 04/22/19 08:34 71 04/22/19 08:18 97.7 71 20 165/103 (123) 99 04/22/19 08:00 67 04/22/19 08:00 28 04/22/19 04:00 58 04/22/19 04:00 97.2 60 20 152/60 (90) 94 04/22/19 04:00 28 04/22/19 01:34 60 20 95 Facial 30 04/22/19 00:00 49 04/22/19 00:00 97.9 58 20 146/76 (99) 96 Intake and Output 04/21/19 04/22/19 19:00 07:00 Intake Total 540 ml 400 ml Output Total 1400 ml 600 ml Balance -860 ml -200 ml Intake Oral 540 ml 400 ml Output Urine Total 1400 ml 600 ml # Voids 2 Laboratory Tests 04/22/19 09:55: White Blood Count 13.2H, Red Blood Count 5.29, Hemoglobin 13.4L, Hematocrit 42.2 , Mean Corpuscular Volume 80, Mean Corpuscular Hemoglobin 25.4L, Mean Corpuscular Hemoglobin Concent 31.8L, Red Cell Distribution Width 16.8H, Platelet Count 171, Mean Platelet Volume 9.8, Neutrophils (%) (Auto) 72.4, Lymphocytes (%) (Auto) 15.0L, Monocytes (%) (Auto) 9.4, Eosinophils (%) (Auto) 2.0, Basophils (%) (Auto) 1.2, Sodium Level 144, Potassium Level 3.2L, Chloride Level 106, Carbon Dioxide Level 34H, Anion Gap 5, Blood Urea Nitrogen 26H, Creatinine 1.4H, Estimat Glomerular Filtration Rate 54.1, Glucose Level 148H, Uric Acid 5.9, Calcium Level 8.6, Phosphorus Level 3.6, Magnesium Level 1.9, Total Bilirubin 0.5, Aspartate Amino Transf (AST/SGOT) 11L, Alanine Aminotransferase (ALT/SGPT) 32, Alkaline Phosphatase 60, C-Reactive Protein, Quantitative 1.9H, Pro-B-Type Natriuretic Peptide 293H, Total Protein 6.1L, Albumin 3.0L, Globulin 3.1, Albumin/Globulin Ratio 1.0 Height (Feet): 5 Height (Inches): 10.00 Weight (Pounds): 411 Neck: supple Cardiovascular: normal rate Respiratory/Chest: lungs clear Abdomen: soft Brodie De Jesus MD Apr 22, 2019 22:58
--- NOTE | 2019-04-22 23:00 | NUR ---
NURSE NOTES: [facility] ambulance arrived for nut picker and transportation to patient's home.
--- NOTE | 2019-04-22 23:53 | Cardiology Progress Note ---
Assessment/Plan Assessment/Plan 1. Acute HFnl EF, continue lasix. 2. Recurrent NSVT. No syncope. Nl EF. Stress test as out patient as couldn't fit in camera. No chest pain at this time. 3. Hypertension. Continue Lasix and Cardizem. 4. Paroxysmal atrial fib with RVR, now in SR. On Cardizem, metoprolol and Digoxin. Dig level is within normal limits. Subjective Subjective Sinus rhythm at rate of 93. Objective Last 24 Hour Vital Signs Date Time Temp Pulse Resp B/P (MAP) Pulse Ox O2 Delivery O2 Flow Rate FiO2 04/22/19 21:00 Nasal Cannula 4.0 04/22/19 20:02 97 Nasal Cannula 3.0 32 04/22/19 20:00 67 04/22/19 20:00 98.2 65 20 134/71 (92) 98 04/22/19 20:00 4.0 36 04/22/19 16:00 69 04/22/19 16:00 28 04/22/19 15:55 65 134/71 04/22/19 15:48 98.2 65 20 134/71 (92) 98 04/22/19 12:38 97.9 04/22/19 12:00 65 04/22/19 12:00 28 04/22/19 11:21 97.9 76 20 137/69 (91) 97 04/22/19 10:31 Nasal Cannula 4.0 04/22/19 09:05 97.7 04/22/19 09:02 98 Nasal Cannula 3.0 32 04/22/19 08:34 71 165/103 04/22/19 08:34 71 165/103 04/22/19 08:34 71 04/22/19 08:18 97.7 71 20 165/103 (123) 99 04/22/19 08:00 67 04/22/19 08:00 28 04/22/19 04:00 58 04/22/19 04:00 97.2 60 20 152/60 (90) 94 04/22/19 04:00 28 04/22/19 01:34 60 20 95 Facial 30 04/22/19 00:00 49 04/22/19 00:00 97.9 58 20 146/76 (99) 96 Intake and Output 04/21/19 04/22/19 19:00 07:00 Intake Total 540 ml 400 ml Output Total 1400 ml 600 ml Balance -860 ml -200 ml Intake Oral 540 ml 400 ml Output Urine Total 1400 ml 600 ml # Voids 2 Laboratory Tests Test 04/22/19 09:55 White Blood Count 13.2 K/UL (4.8-10.8) H Red Blood Count 5.29 M/UL (4.70-6.10) Hemoglobin 13.4 G/DL (14.2-18.0) L Hematocrit 42.2 % (42.0-52.0) Mean Corpuscular Volume 80 FL (80-99) Mean Corpuscular Hemoglobin 25.4 PG (27.0-31.0) L Mean Corpuscular Hemoglobin Concent 31.8 G/DL (32.0-36.0) L Red Cell Distribution Width 16.8 % (11.6-14.8) H Platelet Count 171 K/UL (150-450) Mean Platelet Volume 9.8 FL (6.5-10.1) Neutrophils (%) (Auto) 72.4 % (45.0-75.0) Lymphocytes (%) (Auto) 15.0 % (20.0-45.0) L Monocytes (%) (Auto) 9.4 % (1.0-10.0) Eosinophils (%) (Auto) 2.0 % (0.0-3.0) Basophils (%) (Auto) 1.2 % (0.0-2.0) Sodium Level 144 MMOL/L (136-145) Potassium Level 3.2 MMOL/L (3.5-5.1) L Chloride Level 106 MMOL/L (98-107) Carbon Dioxide Level 34 MMOL/L (21-32) H Anion Gap 5 mmol/L (5-15) Blood Urea Nitrogen 26 mg/dL (7-18) H Creatinine 1.4 MG/DL (0.55-1.30) H Estimat Glomerular Filtration Rate 54.1 mL/min (>60) Glucose Level 148 MG/DL (74-106) H Uric Acid 5.9 MG/DL (2.6-7.2) Calcium Level 8.6 MG/DL (8.5-10.1) Phosphorus Level 3.6 MG/DL (2.5-4.9) Magnesium Level 1.9 MG/DL (1.8-2.4) Total Bilirubin 0.5 MG/DL (0.2-1.0) Aspartate Amino Transf (AST/SGOT) 11 U/L (15-37) L Alanine Aminotransferase (ALT/SGPT) 32 U/L (12-78) Alkaline Phosphatase 60 U/L (46-116) C-Reactive Protein, Quantitative 1.9 mg/dL (0.00-0.90) H Pro-B-Type Natriuretic Peptide 293 pg/mL (0-125) H Total Protein 6.1 G/DL (6.4-8.2) L Albumin 3.0 G/DL (3.4-5.0) L Globulin 3.1 g/dL Albumin/Globulin Ratio 1.0 (1.0-2.7) Objective HEENT: No JVD. LUNGS: Coarse rhonchi. CARDIOVASCULAR: Regular S1 and S2 with no gallop or murmur. ABDOMEN: Soft, NT/ND, + BS. EXTREMITIES: 3+ pitting edema. Sandor Lawrence MD Apr 22, 2019 23:53
--- NOTE | 2019-04-23 | NUR ---
NURSE NOTES: Patient was discharged to home. Report given to EMT. Patient insisted to ambulate to [facility] accompanied by 4 reverberatory skimmer without any incident, on oxygen via NC @ 4LPM. No signs of acute distress noted. Vital signs stable upon discharge. Patient taken off tele box and tolerating well. IV line removed. Discharge packet with medication list and personal belongings taken with patient. Addendum: 04/23/19 at 0306 by Cher Coleman RN Discharge packet with medication list given to patient. All personal belongings taken by patient.
--- NOTE | 2019-04-23 00:05 | NUR ---
NURSE NOTES: Patient left the hospital via gurney accompanied by 4 dielectric machine operator without any incident. No signs of acute distress noted.
--- NOTE | 2019-04-26 08:51 | Discharge Summary ---
Discharge Summary Discharge Summary _ DATE OF ADMISSION: 04/07/2019 DATE OF DISCHARGE: 04/23/1950 DISCHARGED BY: Dr. De Jesus REASON FOR ADMISSION: 48 years old male with past medical history of congestive heart failure, morbid obesity, presented for evaluation of chest pain, shortness of breath, sore throat and ear pain. Symptoms started 3 to 4 days ago. Patient reported bilateral ear fullness and decreased hearing. He reported subjective fever and chills, sore throat and chest discomfort. Upon evaluation blood pressure was significantly elevated 191/103. Patient remained tachypneic and intermittently tachycardic , with increased work of breathing. Patient required supplemental oxygen. Potassium 2.9. Troponin negative. pro BNP 932. EKG revealed sinus rhythm , no acute ischemic changes. Chest x-ray revealed bilateral pulmonary congestion, no obvious consolidation. Potassium was repleted in emergency department, both IV and orally. Patient subsequently admitted to monitored floor for further management. CONSULTANTS: wood router Dr. Lawrence pulmonary Dr. Wise ID specialist Dr. Pak brick and block mason Dr. Yin computational linguist/oncologist Dr. Lehman pain specialist Dr. Stack HOSPITAL COURSE: Patient admitted to monitored floor and started on diuresis. Echocardiogram revealed preserved ejection fraction, no evidence of wall motion abnormality to the extent visualized. Serial troponin were negative. EKG revealed no acute ischemic changes. Patient was ruled out for acute myocardial infarction. Lipid panel revealed stable total cholesterol, LDL 112. Volumes and cardiorenal parameters were clsoely monitored. Telemetry showed recurrent nonsustained ventricular tachycardia. No syncope. Antisqueak Filler recommended outpatient stress test since patient could not fit in the camera in this facility. Chest pain resolved. Blood pressure was managed with Cardizem and Lasix. Blood pressure stabilized. Patient developed paroxysmal atrial fibrillation with rapid ventricular response . Patient was on diltiazem drip initially for rapid atrial fibrillation. After heart rate controlled, diltiazem drip discontinued and patient started on sustained-release diltiazem and beta vimal. Digoxin added as well. Heart rate was controlled with Cardizem and metoprolol , digoxin continued. Digoxin level was within normal limits. Statin continue along with antiplatelet therapy with aspirin. DVT prophylaxis provided. Natural Resources Extension Educator followed. ABG on supplemental oxygen revealed evidence of hypercapnia. Patient started on the IV Solu-Medrol with gradual tapering down. Supplemental oxygen provided and titrated to keep pulse oximetry above 92%. Pulmonary toilet with bronchodilator via HHN therapy route provided as needed. BiPAP was on standby as needed. Patient was followed-up with chest x-ray. Patient developed leukocytosis on the third day of admission , which steadily increased to 22 and then started to trend down. No fevers. ID specialist followed. Chest x-ray revealed pulmonary edema/pneumonia and atelectasis. Sputum culture was negative. Urine culture revealed mixed urogenital contaminants. Influenza swab was negative. Patient was treated empirically for pneumonia. Antibiotics completed prior to discharge. Leukocytosis trended down significantly ,and patient remained afebrile. Renal parameters and electrolytes were closely monitored, electrolytes corrected as needed . Patient started on Diamox to reset the high CO2. CO2 improved . Hemoglobin and hematocrit were closely monitored with goal to keep hemoglobin above 7. Patient noted to have a low folate and borderline B12 . Patient started on the folic acid replacement r and received one dose of B12. Prior to discharge hemoglobin 13.4 , hematocrit 42.2. Leukocytosis was likely due to steroid use as per computational linguist m steroid tapered and discontinued prior to discharge. . Pro BNP trended down with IV diuresis, 293 prior to discharge. Pain management was addressed as per pain specialist recommendation . Patient had a history of lumbar DDD and lumbar spondylosis. Patient was working with a physical therapist. Fall precaution maintained. Bowel regimen instituted. Supportive care provided. GI prophylaxis provided. Patient clinically stabilized and was ready for discharge home with home health services. FINAL DIAGNOSES: Acute congestive heart failure, diastolic Pulmonary edema Leukocytosis Pneumonia and atelectasis Recurrent NSVT Hypertension with initial hypertensive urgency Hyperlipidemia Paroxysmal atrial fibrillation with rapid ventricular response COPD Hypercapnic hypoxemic respiratory failure Hyperkalemia Chronic kidney disease Morbid obesity Lumbar DDD Lumbar spondylosis DISCHARGE MEDICATIONS: See Medication Reconciliation list. DISCHARGE INSTRUCTIONS: Patient was discharged home with home health services. Follow up with primary care provider in one week. I have been assigned to dictate discharge summary for this account. I was not involved in the patient's management. Liat Griffin NP Apr 26, 2019 08:51
--- NOTE | 2019-04-26 14:30 | NUR ---
*-* INSURANCE *-* ALL CLINICALS AND REVIEWS HAVE BEEN FAXED TO: [employer] NO PROJECT LEADER AT THIS TIME, PLEASE FAX THE REVIEW/CLINICAL P- [phone] F [phone]...REVIEW/CLINICAL
== END 2019-04-23 00:05 | disposition home health service (06) | DRG 194 ==
LOC: EDBD 18:58 → EMR 19:30 → 2E 21:42 → EDBEDREQ 23:39 → OBSVTOIN 04-07 11:06 → ICU 04-08 18:00 → 2E 04-12 11:00
DX: I13.0 Hypertensive heart and chronic kidney disease with heart failure and stage 1 through stage 4 chronic kidney disease, or unspecified chronic kidney disease (principal); I50.31 Acute diastolic (congestive) heart failure; N18.9 Chronic kidney disease, unspecified; E11.22 Type 2 diabetes mellitus with diabetic chronic kidney disease; E87.6 Hypokalemia; E66.01 Morbid (severe) obesity due to excess calories; G89.4 Chronic pain syndrome; F41.9 Anxiety disorder, unspecified; J44.0 Chronic obstructive pulmonary disease with (acute) lower respiratory infection; J18.9 Pneumonia, unspecified organism; J98.11 Atelectasis; G47.33 Obstructive sleep apnea (adult) (pediatric); J02.9 Acute pharyngitis, unspecified; H92.09 Otalgia, unspecified ear; M51.36 Other intervertebral disc degeneration, lumbar region; M47.9 Spondylosis, unspecified; E78.49 Other hyperlipidemia; I47.1 Supraventricular tachycardia; I48.0 Paroxysmal atrial fibrillation; D68.69 Other thrombophilia; D72.829 Elevated white blood cell count, unspecified; J96.92 Respiratory failure, unspecified with hypercapnia; J96.91 Respiratory failure, unspecified with hypoxia; B34.9 Viral infection, unspecified; I16.0 Hypertensive urgency
CPT/HCPCS: 36415; 36600; 71045; 80048; 80053; 80061; 80162; 80307; 81001; 82607; 82746; 82803; 82962; 82977; 83036; 83735; 83880; 84100; 84132; 84439; 84443; 84481; 84484; 84550; 85007; 85025; 85730; 86140; 86710; 87070; 87081; 87086; 87181; 87205; 93005; 93306; 94640; 94660; 94664; 96374; 96375; 99285; J7620; J8499

== ENCOUNTER 2019-05-05 14:24 | Inpatient (IN) | payer OTHER ==
[~2019-05-05] VITALS: Ht 177.8 cm; Wt 199.1 kg
--- NOTE | 2019-05-05 14:36 | Emergency Room Report ---
History of Present Illness General Chief Complaint: Generalized Weakness Source: Patient Present Illness HPI Patient is a 48-year-old male who presents after increased generalized weakness and difficulty breathing. He had prior history of COPD. He is normally on home oxygen and states that he normally has some swelling to both legs. Patient normally uses 2 L of oxygen via nasal cannula. He reports having pain to both shoulders as well as increased pain to both legs. He is unsure if he is having any fever. He reports having increased generalized body aches. Denies any increased cough. Patient states he is on multiple medications but does not know the names of them. Allergies: Coded Allergies: RIVAROXABAN (Verified Allergy, Unknown, 04/05/19) Patient History Past Medical History: see triage record Reviewed Nursing Documentation: PMH: Agreed; PSxH: Agreed Nursing Documentation-PMH Past Medical History: No History, Except For Hx Cardiac Problems: Yes Hx Hypertension: Yes Hx COPD: Yes Hx Diabetes: Yes Hx Cancer: No Hx Gastrointestinal Problems: No Hx Neurological Problems: No Review of Systems All Other Systems: limited - Limited by poor historian Physical Exam Vital Signs Date Time Temp Pulse Resp B/P (MAP) Pulse Ox O2 Delivery O2 Flow Rate FiO2 05/05/19 14:16 73 18 109/69 (82) 95 Nasal Cannula 4.0 General Appearance: alert, GCS 15, obese, Chronically Ill Head: normocephalic Eyes: bilateral eye PERRL ENT: TMs + canals normal, uvula midline Neck: full range of motion Respiratory: lungs clear, decreased breath sounds Cardiovascular #1: edema - 3+ Edema Gastrointestinal: normal inspection, normal bowel sounds, non tender Musculoskeletal: normal inspection Neurologic: alert, motor strength/tone normal, furrier designer III-XII nml as tested, oriented x3 Psychiatric: normal inspection Skin: other - Bilateral scaly rash to the lower extremities Medical Decision Making Diagnostic Impression: Primary Impression: COPD (chronic obstructive pulmonary disease) ER Course Patient presented for increased shortness of breath. Differential diagnosis include was not limited to pneumonia, bronchitis, anemia, myocardial infarction among others. Because of complexity of patient's case laboratory tests and imaging studies were ordered.Patient's laboratory testing showed elevation of BNP. He was also noted to be mildly hypokalemic. Patient was given IV Lasix. He was started on BiPAP.Patient's laboratory testing showed normal CBC. Patient started on BiPAP as well as a CO2 monitor. He was noted to have some improvement in oxygenation and respiratory status after initiation of BiPAP. Dr. Haro was contacted for inpatient management due to need for inpatient monitoring and treatment. Labs Test 05/05/19 14:15 White Blood Count 7.2 K/UL (4.8-10.8) Red Blood Count 4.47 M/UL (4.70-6.10) Hemoglobin 11.2 G/DL (14.2-18.0) Hematocrit 36.0 % (42.0-52.0) Mean Corpuscular Volume 81 FL (80-99) Mean Corpuscular Hemoglobin 25.0 PG (27.0-31.0) Mean Corpuscular Hemoglobin Concent 31.0 G/DL (32.0-36.0) Red Cell Distribution Width 15.5 % (11.6-14.8) Platelet Count 240 K/UL (150-450) Mean Platelet Volume 8.0 FL (6.5-10.1) Neutrophils (%) (Auto) 68.5 % (45.0-75.0) Lymphocytes (%) (Auto) 17.8 % (20.0-45.0) Monocytes (%) (Auto) 7.6 % (1.0-10.0) Eosinophils (%) (Auto) 5.6 % (0.0-3.0) Basophils (%) (Auto) 0.6 % (0.0-2.0) Prothrombin Time 10.8 SEC (9.30-11.50) Prothromb Time International Ratio 1.0 (0.9-1.1) Activated Partial Thromboplast Time 29 SEC (23-33) D-Dimer 1.25 mg/L FEU (0.00-0.49) Sodium Level 149 MMOL/L (136-145) Potassium Level 3.1 MMOL/L (3.5-5.1) Chloride Level 108 MMOL/L (98-107) Carbon Dioxide Level 40 MMOL/L (21-32) Anion Gap 1 mmol/L (5-15) Blood Urea Nitrogen 12 mg/dL (7-18) Creatinine 1.4 MG/DL (0.55-1.30) Estimat Glomerular Filtration Rate 54.1 mL/min (>60) Glucose Level 116 MG/DL (74-106) Calcium Level 8.1 MG/DL (8.5-10.1) Total Bilirubin 0.5 MG/DL (0.2-1.0) Aspartate Amino Transf (AST/SGOT) 12 U/L (15-37) Alanine Aminotransferase (ALT/SGPT) 18 U/L (12-78) Alkaline Phosphatase 59 U/L (46-116) Pro-B-Type Natriuretic Peptide 1026 pg/mL (0-125) Total Protein 6.0 G/DL (6.4-8.2) Albumin 2.7 G/DL (3.4-5.0) Globulin 3.3 g/dL Albumin/Globulin Ratio 0.8 (1.0-2.7) EKG Diagnostic Results Rate: normal Rhythm: NSR ST Segments: other - T inversion 1, aVL unchanged from previous Last Vital Signs Date Time Temp Pulse Resp B/P (MAP) Pulse Ox O2 Delivery O2 Flow Rate FiO2 05/05/19 14:16 73 18 109/69 (82) 95 Nasal Cannula 4.0 Status: improved Disposition: ADMITTED INPATIENT Alejandro Dee MD May 05, 2019 14:36
[2019-05-05] MEDS ORDERED: Albuterol ud Inhalation HHN ONE (14:45)
[2019-05-05] MEDS ORDERED: Ipratropium 0.02% Inh Soln 2.5ml UD HHN ONE (14:45)
[2019-05-05 15:07] VITALS: BP 95/55
[2019-05-05 15:11] VITALS: BP 109/69
--- NOTE | 2019-05-05 15:12 | NUR ---
came to er from home by rescue with complaints of total body pain and shortness of breath. denies any chest pain o2 on continues
--- NOTE | 2019-05-05 15:15 | Diagnostic Imaging Report ---
Indication: Shortness of breath Technique: One view of the chest Comparison: 04/21/2019 Findings: Body habitus limits evaluation. There is mild bilateral interstitial congestion, appears slightly increased from the prior study. Left-sided pleural effusion is demonstrated, appears similar to the prior study. The heart size is difficult to assess. Some atelectasis is seen at the right lung base. Impression: Interstitial congestion, appearing slightly increased from prior exam of 2 weeks earlier Suspect left pleural effusion
[2019-05-05 15:18] LABS: BASOPHILS % (AUTO) 0.6 % (0.0-2.0); EOSINOPHILS % (AUTO) 5.6 % (0.0-3.0); HEMOGLOBIN 11.2 G/DL (14.2-18.0); LYMPHOCYTES % (AUTO) 17.8 % (20.0-45.0); MEAN CORPUSCULAR VOLUME 81 FL (80-99); MONOCYTES % (AUTO) 7.6 % (1.0-10.0); NEUTROPHILS % (AUTO) 68.5 % (45.0-75.0); PLATELET COUNT 240 K/UL (150-450); RED BLOOD COUNT 4.47 M/UL (4.70-6.10); RED CELL DISTRIBUTION WIDTH 15.5 % (11.6-14.8); WHITE BLOOD COUNT 7.2 K/UL (4.8-10.8)
[2019-05-05 15:38] LABS: ALANINE AMINOTRANSFERASE 18 U/L (12-78); ALBUMIN 2.7 G/DL (3.4-5.0); ALBUMIN/GLOBULIN RATIO 0.8 (1.0-2.7); ALKALINE PHOSPHATASE 59 U/L (46-116); ANION GAP 1 mmol/L (5-15); ASPARTATE AMINO TRANSFERASE 12 U/L (15-37); BILIRUBIN,TOTAL 0.5 MG/DL (0.2-1.0); BLOOD UREA NITROGEN 12 mg/dL (7-18); CALCIUM 8.1 MG/DL (8.5-10.1); CARBON DIOXIDE 40 MMOL/L (21-32); CHLORIDE 108 MMOL/L (98-107); CREATININE 1.4 MG/DL (0.55-1.30); POTASSIUM 3.1 MMOL/L (3.5-5.1); SODIUM 149 MMOL/L (136-145)
[2019-05-05] MEDS ORDERED: UNOBMED (16:27)
[2019-05-05 18:34] VITALS: BP 126/51
--- NOTE | 2019-05-05 18:48 | NUR ---
NURSE NOTES: RECEIVED TELEPHONE REPORT FROM SIL THAO.PT 48 YRS OLD MALE AOX4 ,ADMITTED WITH DX OF COPD EXACERBATION.PT USING BIPAP 10/5 ,FIO2 30%, SAT 93%,V/S STABLE. A WAITING FOR THE PT TO COME AT [facility] 243 BED 2.
--- NOTE | 2019-05-05 18:48 | NUR ---
TRANSFER TO FLOOR: Patient transferred to [facility] [place] as [place], per MD Estrellita. Report given to KEESHA Roy. SERGIO Montelongo made aware.
--- NOTE | 2019-05-05 19:15 | NUR ---
HAND-OFF: Report given to .DAMION THAO.
--- NOTE | 2019-05-05 19:25 | NUR ---
NURSE NOTES: Received report from KEESHA Gaspar, pt. brought up from ER, pt. A/O x's4- able to make needs known, No signs or symptoms of acute cardiac or respiratory distress noted, bed alarm on, side rails up x's3 and safety brakes engaged, pt. appears to be sating well on current BIPAP settings 10/5 Fio2 at 30%, full body assessment done- skin intact- but appears to be very dry, monitoring and evaluation advisor is placed on patient, pt. able to reposition himself- aware to ask for assist, Urinal at bedside and within easy reach, pt. belongings checked pt. has android phone at bedside, and $2 bills- that he would like to keep at bedside, Left AC 18G IV intact and patent, safety measures continued, will continue with plan of care. Will contact primary doctor for admission orders. Addendum: 05/05/19 at 2206 by DAMION MARC RN RN med list read to doctor- orders to continue atorvastatin as directed and Lasix order to change to Lasix 40mg IV daily- orders carried out.
--- NOTE | 2019-05-05 19:55 | NUR ---
ED Nurse Note: PT given to PM nurse KEESHA Ash; admitted to 243-2. No S/S of respiratory distress, VS stable. Addendum: 05/05/19 at 2006 by MOISE ED Nurse Note: Wrong time: Correct time is 1854.
[2019-05-05 20:00] VITALS: BP 139/69
--- NOTE | 2019-05-05 20:00 | NUR ---
NURSE NOTES: Called DR. Haro- for admission orders- orders received- will carry out orders.
[2019-05-05] MEDS: Cefepime HCl 2 GM in D5W 55 ML IVPB SCH (20:03)
--- NOTE | 2019-05-05 20:30 | NUR ---
NURSE NOTES: per Peter from pharmacy to verify with doctor if Lovenox is 80mg or 40mg - left message for DR. Haro-awaiting for call back from doctor.
[2019-05-05] MEDS: Doxycycline Hyclate 100 MG in D5W 110 ML IV SCH (20:56)
[2019-05-05] MEDS: Atorvastatin 20mg tab ORAL SCH (20:58)
[2019-05-05] MEDS: HYDROcodone/Acetamin 5/325 tab ORAL PRN (20:59)
[2019-05-05] MEDS ORDERED: Ketorolac 30mg Inj IV PRN (21:51)
--- NOTE | 2019-05-05 21:52 | NUR ---
NURSE NOTES: per DR. Haro- to order Lovenox 40mg- orders carried out. Also notified doctor pt. is asking for Morphine- per doctor no order for Morphine, but can order Toradol 30mg IV prn Q12hrs for severe pain.
--- NOTE | 2019-05-05 22:25 | NUR ---
NURSE NOTES: left message for DR. Rich- regarding critical ABG results- awaiting for call back from doctor.
--- NOTE | 2019-05-05 22:37 | NUR ---
NURSE NOTES: per DR. Rich to change BIPAP orders to 12/5 fio2 at 30%- QHS and PRN- orders carried out.
[2019-05-05] MEDS: Albuterol/Ipratropium 3ml neb HHN SCH (23:08)
[2019-05-06] VITALS: BP 134/75
[2019-05-06] MEDS: Albuterol/Ipratropium 3ml neb HHN SCH ×6 (03:35→23:16)
[2019-05-06 04:00] VITALS: BP 151/83
--- NOTE | 2019-05-06 07:06 | NUR ---
NURSE NOTES: mentioned to DR. Tuttle that pt. is asking for Gabapentin- per DR. Haro- jennifer to order Gabapentin 300mg TID oral- orders carried out.
--- NOTE | 2019-05-06 07:09 | NUR ---
HAND-OFF: Report given to Carl RN- pt. remains stable and no signs of distress noted.
--- NOTE | 2019-05-06 07:10 | NUR ---
NURSE NOTES: Report received from Oscar THAO.Pt resting in bed asleep easily arouses with verbal command,denies any c/o sob or pain ,SR on the monitor,skin warm and dry,pt obese, denies pain at this time. HOB elevated, call light within reach, bed at lowest position. Will continue to monitor patient.
[2019-05-06 07:19] LABS: BASOPHILS % (AUTO) 0.6 % (0.0-2.0); EOSINOPHILS % (AUTO) 5.1 % (0.0-3.0); HEMATOCRIT 38.1 % (42.0-52.0); HEMOGLOBIN 12.1 G/DL (14.2-18.0); LYMPHOCYTES % (AUTO) 23.7 % (20.0-45.0); MEAN CORPUSCULAR VOLUME 80 FL (80-99); MONOCYTES % (AUTO) 9.3 % (1.0-10.0); NEUTROPHILS % (AUTO) 61.3 % (45.0-75.0); PLATELET COUNT 282 K/UL (150-450); RED BLOOD COUNT 4.75 M/UL (4.70-6.10); RED CELL DISTRIBUTION WIDTH 15.6 % (11.6-14.8); WHITE BLOOD COUNT 6.5 K/UL (4.8-10.8)
[2019-05-06 08:00] VITALS: BP 126/68
[2019-05-06 08:02] LABS: ALANINE AMINOTRANSFERASE 19 U/L (12-78); ALBUMIN/GLOBULIN RATIO 0.8 (1.0-2.7); ALKALINE PHOSPHATASE 69 U/L (46-116); ANION GAP 4 mmol/L (5-15); ASPARTATE AMINO TRANSFERASE 14 U/L (15-37); BILIRUBIN,TOTAL 0.6 MG/DL (0.2-1.0); BLOOD UREA NITROGEN 14 mg/dL (7-18); CALCIUM 8.4 MG/DL (8.5-10.1); CARBON DIOXIDE 37 MMOL/L (21-32); CHLORIDE 102 MMOL/L (98-107); CHOLESTEROL 163 MG/DL (< 200); CREATININE 1.5 MG/DL (0.55-1.30); HDL CHOLESTEROL 40 MG/DL (40-60); POTASSIUM 3.1 MMOL/L (3.5-5.1); SODIUM 143 MMOL/L (136-145); TRIGLYCERIDES 92 MG/DL (30-150)
[2019-05-06] MEDS: Enoxaparin 40mg Inj SUBQ SCH (08:14)
[2019-05-06] MEDS: Cefepime HCl 2 GM in D5W 55 ML IVPB SCH ×2 (08:15→21:34)
[2019-05-06] MEDS ORDERED: Enoxaparin 80mg Inj SUBQ SCH (09:00)
[2019-05-06 09:05] LABS: PHOSPHORUS 4.6 MG/DL (2.5-4.9)
--- NOTE | 2019-05-06 09:30 | NUR ---
NURSE NOTES: 2 D echo and venous duplex done at bedside. Procedure tolerated well.
[2019-05-06] MEDS: Doxycycline Hyclate 100 MG in D5W 110 ML IV SCH ×2 (09:41→21:36)
[2019-05-06] MEDS: HYDROcodone/Acetamin 5/325 tab ORAL PRN ×4 (10:02→21:47)
--- NOTE | 2019-05-06 10:33 | Consultation ---
Consult Note Consult Note asked to eval at the request of dr Haro patient known to me from his previous admission Patient is a 48-year-old male who presents after increased generalized weakness and difficulty breathing. He had prior history of COPD. He is normally on home oxygen and states that he normally has some swelling to both legs. Patient normally uses 2 L of oxygen via nasal cannula. He reports having pain to both shoulders as well as increased pain to both legs. He is unsure if he is having any fever. He reports having increased generalized body aches. Denies any increased cough. Patient states he is on multiple medications but does not know the names of them. Allergies: RIVAROXABAN (Verified Allergy, Unknown, 04/05/19) Past Medical History: No History, Except For Hx Cardiac Problems: Yes Hx Hypertension: Yes Hx COPD: Yes Hx Diabetes: Yes examined data reviewed Assessment/Plan (1) Hypokalemia (2) CHF (congestive heart failure) (3) Renal failure (4) Obesity, morbid, BMI 50 or higher (5) CO2 retention (6) COPD (chronic obstructive pulmonary disease) elevated Cr likely due to diuresis Obesity , NATASHA AT fib with FVR HTN Congestive heart failure, likely diastolic dysfunction. EF 60% Recurrent NSVT. No syncope. Hypertension. Morbid obesity. COPD. Lipidemia. Plan stop NSAIDs UA Monitor Cr rising Keep BP in check Monitor lytes check B12 and Folic acid Diamox PO as needed per orders per cardio and pulmonary taper steroids as possible Bebeto Yin MD May 06, 2019 10:33
--- NOTE | 2019-05-06 11:30 | NUR ---
NURSE NOTES: Patient ambulated to the bathroom, stable gait. ADLs done per self.
--- NOTE | 2019-05-06 12:13 | Diagnostic Imaging Report ---
Indication:Leg pain and swelling Technique: Grayscale and duplex Doppler imaging of the veins in both lower extremities performed in real time utilizing compression and augmentation. Comparison: None Findings: Exam due to patient body habitus. Within these limitations: Duplex Doppler interrogation of the veins in both lower extremity is performed from the common femoral vein to the popliteal vein. Normal venous compressibility demonstrated throughout. No thrombus identified. Waveform analysis shows good respiratory phasicity and augmentation. IMPRESSION: Exam due to body habitus. No evidence suggest deep venous thrombosis involving the visualized veins of the bilateral lower extremities.
--- NOTE | 2019-05-06 12:37 | History & Physical ---
History of Present Illness General Reason for Hospitalization: Generalized Weakness Present Illness Allergies: Coded Allergies: RIVAROXABAN (Verified Allergy, Unknown, 04/05/19) Medication History Scheduled Amlodipine Besylate* (Amlodipine Besylate*), 10 MG ORAL DAILY, (Reported) Aspirin* (Aspirin*), 81 MG ORAL DAILY, (Reported) Atorvastatin Calcium* (Atorvastatin Calcium*), 40 MG ORAL BEDTIME, (Reported) Furosemide* (Lasix*), 80 MG ORAL BID, (Reported) Gabapentin* (Gabapentin*), 600 MG ORAL BID, (Reported) Miscellaneous Medications Unable to Obtain Medications (Unable To Obtain Meds), (Reported) Patient History Healthcare decision maker Rica Camacho Resuscitation status Full Code Advanced Directive on File No Physical Exam Last 24 Hour Vital Signs Date Time Temp Pulse Resp B/P (MAP) Pulse Ox O2 Delivery O2 Flow Rate FiO2 05/06/19 12:00 Bi-pap 05/06/19 12:00 2.0 05/06/19 11:39 88 18 97 Nasal Cannula 2.0 28 86 18 95 05/06/19 08:00 Bi-pap 05/06/19 08:00 2.0 05/06/19 08:00 98.1 78 24 126/68 (87) 95 05/06/19 07:41 88 05/06/19 07:14 90 Nasal Cannula 2.0 28 05/06/19 07:09 80 20 95 Nasal Cannula 2.0 28 77 20 90 05/06/19 04:00 35 05/06/19 04:00 98.5 65 30 151/83 (105) 94 05/06/19 04:00 Bi-pap 05/06/19 03:40 86 05/06/19 03:36 78 20 92 Facial 30 79 23 95 Bi-Pap 30 05/06/19 01:39 65 25 93 Facial 30 05/06/19 01:39 98.7 05/06/19 00:00 35 05/06/19 00:00 98.7 78 28 134/75 (94) 99 05/06/19 00:00 Bi-pap 05/05/19 23:41 83 05/05/19 23:02 92 25 92 Facial 30 96 22 97 Bi-Pap 30 05/05/19 23:02 92 25 92 Bi-Pap 30 05/05/19 22:40 30 05/05/19 21:29 98.0 05/05/19 20:00 Bi-pap 05/05/19 20:00 98.0 63 26 139/69 (92) 98 05/05/19 20:00 Bi-pap 05/05/19 20:00 30 05/05/19 19:24 58 05/05/19 19:17 86 18 93 Facial 30 05/05/19 18:34 98.3 93 25 126/51 93 Bi-pap 30 05/05/19 17:28 63 30 95 Facial 30 05/05/19 15:22 62 23 96 Facial 30 61 19 94 Bi-Pap 30 05/05/19 15:15 Bi-pap 30 05/05/19 15:11 98.0 20 109/69 95 Nasal Cannula 3.0 28 05/05/19 15:07 97.5 70 22 95/55 99 Non-Rebreather 3.0 05/05/19 15:07 76 20 Nasal Cannula 3.0 05/05/19 15:02 63 19 Nasal Cannula 2.0 28 05/05/19 14:16 73 18 109/69 (82) 95 Nasal Cannula 4.0 Intake and Output 05/05/19 05/06/19 19:00 07:00 Intake Total 220 ml Output Total 1000 ml 875 ml Balance -1000 ml -655 ml Intake IV Total 220 ml Output Urine Total 1000 ml 875 ml # Voids 2 # Bowel Movements 3 Laboratory Tests Test 05/05/19 14:15 05/05/19 20:57 05/05/19 22:15 05/06/19 06:15 White Blood Count 7.2 K/UL (4.8-10.8) 6.5 K/UL (4.8-10.8) Red Blood Count 4.47 M/UL (4.70-6.10) L 4.75 M/UL (4.70-6.10) Hemoglobin 11.2 G/DL (14.2-18.0) L 12.1 G/DL (14.2-18.0) L Hematocrit 36.0 % (42.0-52.0) L 38.1 % (42.0-52.0) L Mean Corpuscular Volume 81 FL (80-99) 80 FL (80-99) Mean Corpuscular Hemoglobin 25.0 PG (27.0-31.0) L 25.5 PG (27.0-31.0) L Mean Corpuscular Hemoglobin Concent 31.0 G/DL (32.0-36.0) L 31.7 G/DL (32.0-36.0) L Red Cell Distribution Width 15.5 % (11.6-14.8) H 15.6 % (11.6-14.8) H Platelet Count 240 K/UL (150-450) 282 K/UL (150-450) Mean Platelet Volume 8.0 FL (6.5-10.1) 7.8 FL (6.5-10.1) Neutrophils (%) (Auto) 68.5 % (45.0-75.0) 61.3 % (45.0-75.0) Lymphocytes (%) (Auto) 17.8 % (20.0-45.0) L 23.7 % (20.0-45.0) Monocytes (%) (Auto) 7.6 % (1.0-10.0) 9.3 % (1.0-10.0) Eosinophils (%) (Auto) 5.6 % (0.0-3.0) H 5.1 % (0.0-3.0) H Basophils (%) (Auto) 0.6 % (0.0-2.0) 0.6 % (0.0-2.0) Prothrombin Time 10.8 SEC (9.30-11.50) Prothromb Time International Ratio 1.0 (0.9-1.1) Activated Partial Thromboplast Time 29 SEC (23-33) D-Dimer 1.25 mg/L FEU (0.00-0.49) H Sodium Level 149 MMOL/L (136-145) H 143 MMOL/L (136-145) Potassium Level 3.1 MMOL/L (3.5-5.1) L 3.1 MMOL/L (3.5-5.1) L Chloride Level 108 MMOL/L (98-107) H 102 MMOL/L (98-107) Carbon Dioxide Level 40 MMOL/L (21-32) H 37 MMOL/L (21-32) H Anion Gap 1 mmol/L (5-15) L 4 mmol/L (5-15) L Blood Urea Nitrogen 12 mg/dL (7-18) 14 mg/dL (7-18) Creatinine 1.4 MG/DL (0.55-1.30) H 1.5 MG/DL (0.55-1.30) H Estimat Glomerular Filtration Rate 54.1 mL/min (>60) > 60 mL/min (>60) Glucose Level 116 MG/DL (74-106) H 97 MG/DL (74-106) Calcium Level 8.1 MG/DL (8.5-10.1) L 8.4 MG/DL (8.5-10.1) L Total Bilirubin 0.5 MG/DL (0.2-1.0) 0.6 MG/DL (0.2-1.0) Aspartate Amino Transf (AST/SGOT) 12 U/L (15-37) L 14 U/L (15-37) L Alanine Aminotransferase (ALT/SGPT) 18 U/L (12-78) 19 U/L (12-78) Alkaline Phosphatase 59 U/L (46-116) 69 U/L (46-116) Troponin I 0.034 ng/mL (0.000-0.056) 0.023 ng/mL (0.000-0.056) 0.029 ng/mL (0.000-0.056) Pro-B-Type Natriuretic Peptide 1026 pg/mL (0-125) H Total Protein 6.0 G/DL (6.4-8.2) L 6.6 G/DL (6.4-8.2) Albumin 2.7 G/DL (3.4-5.0) L 3.0 G/DL (3.4-5.0) L Globulin 3.3 g/dL 3.6 g/dL Albumin/Globulin Ratio 0.8 (1.0-2.7) L 0.8 (1.0-2.7) L Arterial Blood pH 7.445 (7.350-7.450) Arterial Blood Partial Pressure CO2 56.2 mmHg (35.0-45.0) *H Arterial Blood Partial Pressure O2 74.9 mmHg (75.0-100.0) L Arterial Blood HCO3 37.7 mmol/L (22.0-26.0) H Arterial Blood Oxygen Saturation 94.7 % (95-100) L Arterial Blood Base Excess 11.6 (-2-2) *H Kory Test Positive Hemoglobin A1c 6.5 % (4.3-6.0) H Phosphorus Level 4.6 MG/DL (2.5-4.9) Magnesium Level 1.9 MG/DL (1.8-2.4) Triglycerides Level 92 MG/DL (30-150) Cholesterol Level 163 MG/DL (< 200) LDL Cholesterol 96 mg/dL (<100) HDL Cholesterol 40 MG/DL (40-60) Cholesterol/HDL Ratio 4.1 (3.3-4.4) Thyroid Stimulating Hormone (TSH) 1.020 uiU/mL (0.358-3.740) Height (Feet): 5 Height (Inches): 10.00 Weight (Pounds): 410 Medications Current Medications Medications (Trade) Dose Ordered Sig/David Route PRN Reason Start Time Stop Time Status Last Admin Dose Admin Acetaminophen (Tylenol) 650 mg Q6H PRN ORAL Mild Pain/Temp > 100.5 05/05/19 20:15 06/04/19 20:14 Acetaminophen/ Hydrocodone Bitart (Etlan 5/325) 1 tab Q6H PRN ORAL moderate pain 05/05/19 20:15 05/12/19 20:14 05/06/19 10:02 Albuterol/ Ipratropium (Albuterol/ Ipratropium) 3 ml Q4HRT HHN 05/05/19 23:00 05/10/19 22:59 05/06/19 11:37 Amlodipine Besylate (Norvasc) 10 mg DAILY ORAL 05/07/19 09:00 06/06/19 08:59 Aspirin (ASA) 81 mg DAILY ORAL 05/07/19 09:00 06/06/19 08:59 Atorvastatin Calcium (Lipitor) 40 mg BEDTIME ORAL 05/05/19 21:00 06/04/19 20:59 05/05/19 20:58 Cefepime HCl 2 gm/ Dextrose 55 ml @ 110 mls/hr EVERY 12 HOURS IVPB 05/05/19 21:00 05/12/19 20:59 05/06/19 08:15 Docusate Sodium (Colace) 100 mg THREE TIMES A DAY ORAL 05/06/19 13:00 06/05/19 12:59 Doxycycline Hyclate 100 mg/ Dextrose 110 ml @ 110 mls/hr Q12HR IV 05/05/19 21:00 05/12/19 20:59 05/06/19 09:41 Enoxaparin Sodium (Lovenox) 40 mg DAILY SUBQ 05/06/19 09:00 06/05/19 08:59 05/06/19 08:14 Furosemide (Lasix) 40 mg DAILY IV 05/06/19 09:00 06/05/19 08:59 05/06/19 08:13 Gabapentin (Neurontin) 300 mg THREE TIMES A DAY ORAL 05/06/19 09:00 06/05/19 08:59 05/06/19 08:11 Pantoprazole (Protonix) 40 mg EVERY 12 HOURS ORAL 05/06/19 21:00 06/05/19 20:59 Potassium Chloride (K-Dur) 40 meq TWICE A DAY ORAL 05/06/19 10:45 06/05/19 10:44 05/06/19 11:00 Assessment/Plan Status Narrative General Chief Complaint: Generalized Weakness Source: Patient Present Illness HPI Patient is a 48-year-old male who presents after increased generalized weakness and difficulty breathing. He had prior history of COPD. He is normally on home oxygen and states that he normally has some swelling to both legs. Patient normally uses 2 L of oxygen via nasal cannula. He reports having pain to both shoulders as well as increased pain to both legs. He is unsure if he is having any fever. He reports having increased generalized body aches. Denies any increased cough. Patient states he is on multiple medications but does not know the names of them. Allergies: Coded Allergies: RIVAROXABAN (Verified Allergy, Unknown, 04/05/19) Patient History Past Medical History: COPD< NATASHA Reviewed Nursing Documentation: PMH: Agreed; PSxH: Agreed Nursing Documentation-PMH Past Medical History: No History, Except For Hx Cardiac Problems: Yes Hx Hypertension: Yes Hx COPD: Yes Hx Diabetes: Yes Hx Cancer: No Hx Gastrointestinal Problems: No Hx Neurological Problems: No Review of Systems All Other Systems: limited - Limited by poor historian Physical Exam Vital Signs General Appearance: alert, GCS 15, obese, Chronically Ill Head: normocephalic Eyes: bilateral eye PERRL ENT: TMs + canals normal, uvula midline Neck: full range of motion Respiratory: lungs clear, decreased breath sounds Cardiovascular #1: edema - 3+ Edema Gastrointestinal: normal inspection, normal bowel sounds, non tender Musculoskeletal: normal inspection Neurologic: alert, motor strength/tone normal, capacity planner III-XII nml as tested, oriented x3 Psychiatric: normal inspection Skin: other - Bilateral scaly rash to the lower extremities Assessment/Plan: A/P 1- Acute CHF exacerbation - Diastolic 2. Acute COPD (chronic obstructive pulmonary disease) 3. Morbid obesity 4. HTN 5. Multiple joint OA Plan: Cardiology is consulted monitor Troponin [facility] Hospital declaration INPATIENT level of care is warranted for this patient because patient is a 89 year old with who presents with suspicion of . I have a high level of concern because . Patient is at high risk for . Plan of care/treatment include . Patient care is expected to be greater than 2 midnights. OBSERVATION level of care is warranted for this patient. Patient is a 89 year old with who presents with . Patient will be admitted for 1 midnight, but if additional night(s) is/are necessary, patient will be converted to inpatient status for the entire hospitalization Disposition: Once the patient is stable to leave the hospital, I anticipate the patient will likely be discharged to the following environment: Estimated discharge date: I spent 70 minutes on this patient's case, and minutes was dedicated to counseling and/or care coordination. MIPS (Merit-based Incentive Payment System) Applicable CPT: 27304, 97007 CHECK ALL THAT ARE MET: Measure #5 (CHF): All ages. Prescribe MARLO/ARB upon discharge for patients with left ventricular systolic dysfunction. If not, the reason is clearly documented in the medical chart. Measure #8 (CHF): All ages. Prescribe a beta vimal upon discharge for patients with left ventricular systolic dysfunction. If not, the reason is clearly documented in the medical chart. Measure #47 Advance care plan or surrogate decision maker documented in the medical record. Measure #130 The provider has documented, updated, or reviewed the patients current medication list and has documented it in the patients note. Measure #374 (All): Send report to referring provider. Measure #407(Sepsis due to MSSA bacteremia): Age 18+ Patient treated with a beta-lactam antibiotic (Nafcillin, Oxacillin or Cefazolin) as definitive therapy. MEDICAL COMPLEXITY High complexity medical decision making (need 2/3 categories) Problem - need 4 points Acute/new problem with new plan for workup (4 points, 1 max) Acute/new problem without additional workup (3 points, 1 max) Unstable chronic problem actively being managed (2 point each, 2 max) Stable chronic problem actively being managed (1 point each, 2 max) Self-limited/transient process (constipation, muscle ache, etc) (1 point each , 2 max) Data - need 4 points Reviewed labs/imaging studies (1 points, 2 max) Independent review of imaging (EKG, xrays, etc) (2 points, 2 max) Discussed case with consult/other MD/RN (2 points, 2 max) High Risk - qualify if have one of the following: Severe exacerbation of acute problem, acute mental status change, IV narcotics , monitoring drug levels (vancomycin, INR, tacrolimus etc) Desirae Haro MD May 06, 2019 12:37
[2019-05-06] MEDS: Docusate 100mg cap ORAL SCH ×2 (13:41→18:12)
--- NOTE | 2019-05-06 14:03 | Infectious Diseases Prog Note ---
Assessment/Plan Problems: (1) Pneumonia Assessment & Plan: continue cefepime and vancomycin empirically, pending sputum culture , monitor CXR (2) COPD (chronic obstructive pulmonary disease) Assessment & Plan: Due to the above, continue inhalers, antibiotics , close monitor or CXR (3) Obesity, morbid, BMI 50 or higher Assessment & Plan: recommend diet and exercise (4) Renal failure Assessment & Plan: renally dosed meds as per pharmacy , renal is following Subjective Allergies: Coded Allergies: RIVAROXABAN (Verified Allergy, Unknown, 04/05/19) Objective Vital Signs Last 24 Hour Vital Signs Date Time Temp Pulse Resp B/P (MAP) Pulse Ox O2 Delivery O2 Flow Rate FiO2 05/06/19 12:00 82 05/06/19 12:00 Bi-pap 05/06/19 12:00 2.0 05/06/19 11:39 88 18 97 Nasal Cannula 2.0 28 86 18 95 05/06/19 08:00 Bi-pap 05/06/19 08:00 2.0 05/06/19 08:00 98.1 78 24 126/68 (87) 95 05/06/19 07:41 88 05/06/19 07:14 90 Nasal Cannula 2.0 28 05/06/19 07:09 80 20 95 Nasal Cannula 2.0 28 77 20 90 05/06/19 04:00 35 05/06/19 04:00 98.5 65 30 151/83 (105) 94 05/06/19 04:00 Bi-pap 05/06/19 03:40 86 05/06/19 03:36 78 20 92 Facial 30 79 23 95 Bi-Pap 30 05/06/19 01:39 65 25 93 Facial 30 05/06/19 01:39 98.7 05/06/19 00:00 35 05/06/19 00:00 98.7 78 28 134/75 (94) 99 05/06/19 00:00 Bi-pap 05/05/19 23:41 83 05/05/19 23:02 92 25 92 Facial 30 96 22 97 Bi-Pap 30 05/05/19 23:02 92 25 92 Bi-Pap 30 05/05/19 22:40 30 05/05/19 21:29 98.0 05/05/19 20:00 Bi-pap 05/05/19 20:00 98.0 63 26 139/69 (92) 98 05/05/19 20:00 Bi-pap 05/05/19 20:00 30 05/05/19 19:24 58 05/05/19 19:17 86 18 93 Facial 30 05/05/19 18:34 98.3 93 25 126/51 93 Bi-pap 30 05/05/19 17:28 63 30 95 Facial 30 05/05/19 15:22 62 23 96 Facial 30 61 19 94 Bi-Pap 30 05/05/19 15:15 Bi-pap 30 05/05/19 15:11 98.0 20 109/69 95 Nasal Cannula 3.0 28 05/05/19 15:07 97.5 70 22 95/55 99 Non-Rebreather 3.0 05/05/19 15:07 76 20 Nasal Cannula 3.0 05/05/19 15:02 63 19 Nasal Cannula 2.0 28 05/05/19 14:16 73 18 109/69 (82) 95 Nasal Cannula 4.0 Height (Feet): 5 Height (Inches): 10.00 Weight (Pounds): 410 General Appearance: WD/WN, no acute distress HEENT: normocephalic, atraumatic, anicteric, mucous membranes moist, PERRL Respiratory/Chest: chest wall non-tender, no respiratory distress, no accessory muscle use, decreased breath sounds, crackles/rales Cardiovascular: normal peripheral pulses, normal rate, regular rhythm, no gallop/murmur, no JVD Abdomen: normal bowel sounds, soft, non tender, no organomegaly, non distended , no mass, no scars Genitourinary: normal external genitalia Extremities: no cyanosis, no clubbing Skin: no rash, no lesions, no ulcers Neurologic/Psychiatric: carrier blower 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 normal, no motor/sensory deficits, alert, oriented x 3, responsive Lymphatic: no neck adenopathy, no groin adenopathy Musculoskeletal: normal muscle bulk, no effusion Laboratory Tests Test 05/05/19 14:15 05/05/19 20:57 05/05/19 22:15 05/06/19 06:15 White Blood Count 7.2 K/UL (4.8-10.8) 6.5 K/UL (4.8-10.8) Red Blood Count 4.47 M/UL (4.70-6.10) L 4.75 M/UL (4.70-6.10) Hemoglobin 11.2 G/DL (14.2-18.0) L 12.1 G/DL (14.2-18.0) L Hematocrit 36.0 % (42.0-52.0) L 38.1 % (42.0-52.0) L Mean Corpuscular Volume 81 FL (80-99) 80 FL (80-99) Mean Corpuscular Hemoglobin 25.0 PG (27.0-31.0) L 25.5 PG (27.0-31.0) L Mean Corpuscular Hemoglobin Concent 31.0 G/DL (32.0-36.0) L 31.7 G/DL (32.0-36.0) L Red Cell Distribution Width 15.5 % (11.6-14.8) H 15.6 % (11.6-14.8) H Platelet Count 240 K/UL (150-450) 282 K/UL (150-450) Mean Platelet Volume 8.0 FL (6.5-10.1) 7.8 FL (6.5-10.1) Neutrophils (%) (Auto) 68.5 % (45.0-75.0) 61.3 % (45.0-75.0) Lymphocytes (%) (Auto) 17.8 % (20.0-45.0) L 23.7 % (20.0-45.0) Monocytes (%) (Auto) 7.6 % (1.0-10.0) 9.3 % (1.0-10.0) Eosinophils (%) (Auto) 5.6 % (0.0-3.0) H 5.1 % (0.0-3.0) H Basophils (%) (Auto) 0.6 % (0.0-2.0) 0.6 % (0.0-2.0) Prothrombin Time 10.8 SEC (9.30-11.50) Prothromb Time International Ratio 1.0 (0.9-1.1) Activated Partial Thromboplast Time 29 SEC (23-33) D-Dimer 1.25 mg/L FEU (0.00-0.49) H Sodium Level 149 MMOL/L (136-145) H 143 MMOL/L (136-145) Potassium Level 3.1 MMOL/L (3.5-5.1) L 3.1 MMOL/L (3.5-5.1) L Chloride Level 108 MMOL/L (98-107) H 102 MMOL/L (98-107) Carbon Dioxide Level 40 MMOL/L (21-32) H 37 MMOL/L (21-32) H Anion Gap 1 mmol/L (5-15) L 4 mmol/L (5-15) L Blood Urea Nitrogen 12 mg/dL (7-18) 14 mg/dL (7-18) Creatinine 1.4 MG/DL (0.55-1.30) H 1.5 MG/DL (0.55-1.30) H Estimat Glomerular Filtration Rate 54.1 mL/min (>60) > 60 mL/min (>60) Glucose Level 116 MG/DL (74-106) H 97 MG/DL (74-106) Calcium Level 8.1 MG/DL (8.5-10.1) L 8.4 MG/DL (8.5-10.1) L Total Bilirubin 0.5 MG/DL (0.2-1.0) 0.6 MG/DL (0.2-1.0) Aspartate Amino Transf (AST/SGOT) 12 U/L (15-37) L 14 U/L (15-37) L Alanine Aminotransferase (ALT/SGPT) 18 U/L (12-78) 19 U/L (12-78) Alkaline Phosphatase 59 U/L (46-116) 69 U/L (46-116) Troponin I 0.034 ng/mL (0.000-0.056) 0.023 ng/mL (0.000-0.056) 0.029 ng/mL (0.000-0.056) Pro-B-Type Natriuretic Peptide 1026 pg/mL (0-125) H Total Protein 6.0 G/DL (6.4-8.2) L 6.6 G/DL (6.4-8.2) Albumin 2.7 G/DL (3.4-5.0) L 3.0 G/DL (3.4-5.0) L Globulin 3.3 g/dL 3.6 g/dL Albumin/Globulin Ratio 0.8 (1.0-2.7) L 0.8 (1.0-2.7) L Arterial Blood pH 7.445 (7.350-7.450) Arterial Blood Partial Pressure CO2 56.2 mmHg (35.0-45.0) *H Arterial Blood Partial Pressure O2 74.9 mmHg (75.0-100.0) L Arterial Blood HCO3 37.7 mmol/L (22.0-26.0) H Arterial Blood Oxygen Saturation 94.7 % (95-100) L Arterial Blood Base Excess 11.6 (-2-2) *H Kory Test Positive Hemoglobin A1c 6.5 % (4.3-6.0) H Phosphorus Level 4.6 MG/DL (2.5-4.9) Magnesium Level 1.9 MG/DL (1.8-2.4) Triglycerides Level 92 MG/DL (30-150) Cholesterol Level 163 MG/DL (< 200) LDL Cholesterol 96 mg/dL (<100) HDL Cholesterol 40 MG/DL (40-60) Cholesterol/HDL Ratio 4.1 (3.3-4.4) Thyroid Stimulating Hormone (TSH) 1.020 uiU/mL (0.358-3.740) Current Medications Medications (Trade) Dose Ordered Sig/David Route PRN Reason Start Time Stop Time Status Last Admin Dose Admin Acetaminophen (Tylenol) 650 mg Q6H PRN ORAL Mild Pain/Temp > 100.5 05/05/19 20:15 06/04/19 20:14 05/06/19 13:50 Acetaminophen/ Hydrocodone Bitart ([place] 5/325) 1 tab Q6H PRN ORAL moderate pain 05/05/19 20:15 05/12/19 20:14 05/06/19 10:02 Albuterol/ Ipratropium (Albuterol/ Ipratropium) 3 ml Q4HRT HHN 05/05/19 23:00 05/10/19 22:59 05/06/19 11:37 Amlodipine Besylate (Norvasc) 10 mg DAILY ORAL 05/07/19 09:00 06/06/19 08:59 Aspirin (ASA) 81 mg DAILY ORAL 05/07/19 09:00 06/06/19 08:59 Atorvastatin Calcium (Lipitor) 40 mg BEDTIME ORAL 05/05/19 21:00 06/04/19 20:59 05/05/19 20:58 Cefepime HCl 2 gm/ Dextrose 55 ml @ 110 mls/hr EVERY 12 HOURS IVPB 05/05/19 21:00 05/12/19 20:59 05/06/19 08:15 Docusate Sodium (Colace) 100 mg THREE TIMES A DAY ORAL 05/06/19 13:00 06/05/19 12:59 05/06/19 13:41 Doxycycline Hyclate 100 mg/ Dextrose 110 ml @ 110 mls/hr Q12HR IV 05/05/19 21:00 05/12/19 20:59 05/06/19 09:41 Enoxaparin Sodium (Lovenox) 40 mg DAILY SUBQ 05/06/19 09:00 06/05/19 08:59 05/06/19 08:14 Furosemide (Lasix) 40 mg DAILY IV 05/06/19 09:00 06/05/19 08:59 05/06/19 08:13 Gabapentin (Neurontin) 300 mg THREE TIMES A DAY ORAL 05/06/19 09:00 06/05/19 08:59 05/06/19 13:40 Pantoprazole (Protonix) 40 mg EVERY 12 HOURS ORAL 05/06/19 21:00 06/05/19 20:59 Potassium Chloride (K-Dur) 40 meq TWICE A DAY ORAL 05/06/19 10:45 06/05/19 10:44 05/06/19 11:00 Cortney Jackson M.D. May 06, 2019 14:03
--- NOTE | 2019-05-06 14:15 | NUR ---
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 98.0 HR 73 RR 18 B/P 109/69 BIPAP 10/5 FIO2 30% PH 7.44 PCO2 56.2 PO2 74.9 HCO3 37.7 O2 SAT 94.7 NA 149 K 3.1 CO2 40 CR 1.4 BNP 1026 D-DIMER 1.25 CXR= PLEURAL EFFUSION IS: LASIX IV ALB HHN ADMITTED TO STEP DOWN STEP DOWN STATUS DCP RETURN HOME
--- NOTE | 2019-05-06 14:57 | Pulmonology Progress Note ---
Assessment/Plan Assessment/Plan Pulmonary Consultation HPI The patient is a 48-year-old man with history of Obesity, Congestive Heart Failure, Hypertension, Chronic Obstructive Pulmonary Disease admitted with shortness of breath, worsening LE swelling, cough, denies vomiting or diarrhea H/o Afib on AC, h/o NATASHA on BiPAP Past Medical History: Obesity, Congestive Heart Failure, Chronic Obstructive Pulmonary Disease, Diabetes, Hypertension, NATASHA, Obesity Allergies: RIVAROXABAN All Other Systems: negative except mentioned in HPI Physical Exam Vital Signs Noted General: Awake and alert, no acute distress, obese HEENT: NC/AT. EOMI. tympanic membranes are erythematous, moist mm Cardiovascular: RRR. S1 and S2 normal. No murmur appreciated. Mild edema noted Resp: Normal work of breathing. CTAB Abdomen: Abdomen is soft, nondistended. Nontender Skin: Intact. No abrasions, laceration or rash over the exposed skin Extremities: Normal tone and bulk. Moving all extremities. No obvious deformity. Neuro: Awake and alert. Mentating appropriately. Impression: Congestive heart failure Hypertension Chronic Obstructive Pulmonary Disease Obesity Obstructive Sleep Apnea Hypertension Diabetes Plan - Diuresis PRN - Steroids, wean as tolerated - HHN - O2 PRN - BiPAP PRN/QHS - ISS - PPX - SUPERVISOR METALIZING Medications Labs Test 05/05/19 14:15 White Blood Count 7.2 K/UL (4.8-10.8) Red Blood Count 4.47 M/UL (4.70-6.10) Hemoglobin 11.2 G/DL (14.2-18.0) Hematocrit 36.0 % (42.0-52.0) Mean Corpuscular Volume 81 FL (80-99) Mean Corpuscular Hemoglobin 25.0 PG (27.0-31.0) Mean Corpuscular Hemoglobin Concent 31.0 G/DL (32.0-36.0) Red Cell Distribution Width 15.5 % (11.6-14.8) Platelet Count 240 K/UL (150-450) Mean Platelet Volume 8.0 FL (6.5-10.1) Neutrophils (%) (Auto) 68.5 % (45.0-75.0) Lymphocytes (%) (Auto) 17.8 % (20.0-45.0) Monocytes (%) (Auto) 7.6 % (1.0-10.0) Eosinophils (%) (Auto) 5.6 % (0.0-3.0) Basophils (%) (Auto) 0.6 % (0.0-2.0) Prothrombin Time 10.8 SEC (9.30-11.50) Prothromb Time International Ratio 1.0 (0.9-1.1) Activated Partial Thromboplast Time 29 SEC (23-33) D-Dimer 1.25 mg/L FEU (0.00-0.49) Sodium Level 149 MMOL/L (136-145) Potassium Level 3.1 MMOL/L (3.5-5.1) Chloride Level 108 MMOL/L (98-107) Carbon Dioxide Level 40 MMOL/L (21-32) Anion Gap 1 mmol/L (5-15) Blood Urea Nitrogen 12 mg/dL (7-18) Creatinine 1.4 MG/DL (0.55-1.30) Estimat Glomerular Filtration Rate 54.1 mL/min (>60) Glucose Level 116 MG/DL (74-106) Calcium Level 8.1 MG/DL (8.5-10.1) Total Bilirubin 0.5 MG/DL (0.2-1.0) Aspartate Amino Transf (AST/SGOT) 12 U/L (15-37) Alanine Aminotransferase (ALT/SGPT) 18 U/L (12-78) Alkaline Phosphatase 59 U/L (46-116) Pro-B-Type Natriuretic Peptide 1026 pg/mL (0-125) Total Protein 6.0 G/DL (6.4-8.2) Albumin 2.7 G/DL (3.4-5.0) Globulin 3.3 g/dL Albumin/Globulin Ratio 0.8 (1.0-2.7) EKG: Rate: normal Rhythm: NSR ST Segments: other - T inversion 1, aVL unchanged from previous CXR: Worsening congestion, suspect L effusion LE Dupplex: no DVT Subjective ROS Limited/Unobtainable: No Respiratory: Reports: shortness of breath Allergies: Coded Allergies: RIVAROXABAN (Verified Allergy, Unknown, 04/05/19) Objective Last 24 Hour Vital Signs Date Time Temp Pulse Resp B/P (MAP) Pulse Ox O2 Delivery O2 Flow Rate FiO2 05/06/19 14:43 86 20 98 Nasal Cannula 2.0 28 84 20 94 05/06/19 12:00 82 05/06/19 12:00 Bi-pap 05/06/19 12:00 2.0 05/06/19 11:39 88 18 97 Nasal Cannula 2.0 28 86 18 95 05/06/19 08:00 Bi-pap 05/06/19 08:00 2.0 05/06/19 08:00 98.1 78 24 126/68 (87) 95 05/06/19 07:41 88 05/06/19 07:14 90 Nasal Cannula 2.0 28 05/06/19 07:09 80 20 95 Nasal Cannula 2.0 28 77 20 90 05/06/19 04:00 35 05/06/19 04:00 98.5 65 30 151/83 (105) 94 05/06/19 04:00 Bi-pap 05/06/19 03:40 86 05/06/19 03:36 78 20 92 Facial 30 79 23 95 Bi-Pap 30 05/06/19 01:39 65 25 93 Facial 30 05/06/19 01:39 98.7 05/06/19 00:00 35 05/06/19 00:00 98.7 78 28 134/75 (94) 99 05/06/19 00:00 Bi-pap 05/05/19 23:41 83 05/05/19 23:02 92 25 92 Facial 30 96 22 97 Bi-Pap 30 05/05/19 23:02 92 25 92 Bi-Pap 30 05/05/19 22:40 30 05/05/19 21:29 98.0 05/05/19 20:00 Bi-pap 05/05/19 20:00 98.0 63 26 139/69 (92) 98 05/05/19 20:00 Bi-pap 05/05/19 20:00 30 05/05/19 19:24 58 05/05/19 19:17 86 18 93 Facial 30 05/05/19 18:34 98.3 93 25 126/51 93 Bi-pap 30 05/05/19 17:28 63 30 95 Facial 30 05/05/19 15:22 62 23 96 Facial 30 61 19 94 Bi-Pap 30 05/05/19 15:15 Bi-pap 30 05/05/19 15:11 98.0 20 109/69 95 Nasal Cannula 3.0 28 05/05/19 15:07 97.5 70 22 95/55 99 Non-Rebreather 3.0 05/05/19 15:07 76 20 Nasal Cannula 3.0 05/05/19 15:02 63 19 Nasal Cannula 2.0 28 Intake and Output 05/05/19 05/06/19 19:00 07:00 Intake Total 220 ml Output Total 1000 ml 875 ml Balance -1000 ml -655 ml Intake IV Total 220 ml Output Urine Total 1000 ml 875 ml # Voids 2 # Bowel Movements 3 Laboratory Tests 05/05/19 20:57: Arterial Blood pH 7.445, Arterial Blood Partial Pressure CO2 56.2*H, Arterial Blood Partial Pressure O2 74.9L, Arterial Blood HCO3 37.7H, Arterial Blood Oxygen Saturation 94.7L, Arterial Blood Base Excess 11.6*H, Kory Test Positive 05/05/19 22:15: Troponin I 0.023 05/06/19 06:15: Troponin I 0.029, White Blood Count 6.5, Red Blood Count 4.75, Hemoglobin 12.1L , Hematocrit 38.1L, Mean Corpuscular Volume 80, Mean Corpuscular Hemoglobin 25.5L, Mean Corpuscular Hemoglobin Concent 31.7L, Red Cell Distribution Width 15.6H, Platelet Count 282, Mean Platelet Volume 7.8, Neutrophils (%) (Auto) 61.3 , Lymphocytes (%) (Auto) 23.7, Monocytes (%) (Auto) 9.3, Eosinophils (%) (Auto) 5.1H, Basophils (%) (Auto) 0.6, Sodium Level 143, Potassium Level 3.1L, Chloride Level 102, Carbon Dioxide Level 37H, Anion Gap 4L, Blood Urea Nitrogen 14, Creatinine 1.5H, Estimat Glomerular Filtration Rate > 60, Glucose Level 97, Hemoglobin A1c 6.5H, Calcium Level 8.4L, Phosphorus Level 4.6, Magnesium Level 1.9, Total Bilirubin 0.6, Aspartate Amino Transf (AST/SGOT) 14L, Alanine Aminotransferase (ALT/SGPT) 19, Alkaline Phosphatase 69, Total Protein 6.6, Albumin 3.0L, Globulin 3.6, Albumin/Globulin Ratio 0.8L, Triglycerides Level 92 , Cholesterol Level 163, LDL Cholesterol 96, HDL Cholesterol 40, Cholesterol/ HDL Ratio 4.1, Thyroid Stimulating Hormone (TSH) 1.020 Current Medications Medications (Trade) Dose Ordered Sig/David Route PRN Reason Start Time Stop Time Status Last Admin Dose Admin Acetaminophen (Tylenol) 650 mg Q6H PRN ORAL Mild Pain/Temp > 100.5 05/05/19 20:15 06/04/19 20:14 05/06/19 13:50 Acetaminophen/ Hydrocodone Bitart ([place] 5/325) 1 tab Q6H PRN ORAL moderate pain 05/05/19 20:15 05/12/19 20:14 05/06/19 10:02 Albuterol/ Ipratropium (Albuterol/ Ipratropium) 3 ml Q4HRT HHN 05/05/19 23:00 05/10/19 22:59 05/06/19 14:43 Amlodipine Besylate (Norvasc) 10 mg DAILY ORAL 05/07/19 09:00 06/06/19 08:59 Aspirin (ASA) 81 mg DAILY ORAL 05/07/19 09:00 06/06/19 08:59 Atorvastatin Calcium (Lipitor) 40 mg BEDTIME ORAL 05/05/19 21:00 06/04/19 20:59 05/05/19 20:58 Cefepime HCl 2 gm/ Dextrose 55 ml @ 110 mls/hr EVERY 12 HOURS IVPB 05/05/19 21:00 05/12/19 20:59 05/06/19 08:15 Docusate Sodium (Colace) 100 mg THREE TIMES A DAY ORAL 05/06/19 13:00 06/05/19 12:59 05/06/19 13:41 Doxycycline Hyclate 100 mg/ Dextrose 110 ml @ 110 mls/hr Q12HR IV 05/05/19 21:00 05/12/19 20:59 05/06/19 09:41 Enoxaparin Sodium (Lovenox) 40 mg DAILY SUBQ 05/06/19 09:00 06/05/19 08:59 05/06/19 08:14 Furosemide (Lasix) 40 mg DAILY IV 05/06/19 09:00 06/05/19 08:59 05/06/19 08:13 Gabapentin (Neurontin) 300 mg THREE TIMES A DAY ORAL 05/06/19 09:00 06/05/19 08:59 05/06/19 13:40 Pantoprazole (Protonix) 40 mg EVERY 12 HOURS ORAL 05/06/19 21:00 06/05/19 20:59 Potassium Chloride (K-Dur) 40 meq TWICE A DAY ORAL 05/06/19 10:45 06/05/19 10:44 05/06/19 11:00 Mahesh Wise MD May 06, 2019 14:57
[2019-05-06 16:00] VITALS: BP 144/90
--- NOTE | 2019-05-06 18:55 | NUR ---
NURSE NOTES: Patient remains in stable condition. Sitting up on side of the bed. Call light within reach.
--- NOTE | 2019-05-06 18:58 | Cardiology Progress Note ---
Assessment/Plan Assessment/Plan The patient is seen and examined, full consult note will be dictated shortly. Objective Last 24 Hour Vital Signs Date Time Temp Pulse Resp B/P (MAP) Pulse Ox O2 Delivery O2 Flow Rate FiO2 05/06/19 16:00 98.0 81 24 144/90 (108) 94 05/06/19 15:34 87 05/06/19 14:43 86 20 98 Nasal Cannula 2.0 28 84 20 94 05/06/19 12:00 82 05/06/19 12:00 Bi-pap 05/06/19 12:00 2.0 05/06/19 11:39 88 18 97 Nasal Cannula 2.0 28 86 18 95 05/06/19 08:00 Bi-pap 05/06/19 08:00 2.0 05/06/19 08:00 98.1 78 24 126/68 (87) 95 05/06/19 07:41 88 05/06/19 07:14 90 Nasal Cannula 2.0 28 05/06/19 07:09 80 20 95 Nasal Cannula 2.0 28 77 20 90 05/06/19 04:00 35 05/06/19 04:00 98.5 65 30 151/83 (105) 94 05/06/19 04:00 Bi-pap 05/06/19 03:40 86 05/06/19 03:36 78 20 92 Facial 30 79 23 95 Bi-Pap 30 05/06/19 01:39 65 25 93 Facial 30 05/06/19 01:39 98.7 05/06/19 00:00 35 05/06/19 00:00 98.7 78 28 134/75 (94) 99 05/06/19 00:00 Bi-pap 05/05/19 23:41 83 05/05/19 23:02 92 25 92 Facial 30 96 22 97 Bi-Pap 30 05/05/19 23:02 92 25 92 Bi-Pap 30 05/05/19 22:40 30 05/05/19 21:29 98.0 05/05/19 20:00 Bi-pap 05/05/19 20:00 98.0 63 26 139/69 (92) 98 05/05/19 20:00 Bi-pap 05/05/19 20:00 30 05/05/19 19:24 58 05/05/19 19:17 86 18 93 Facial 30 Intake and Output 05/05/19 05/06/19 19:00 07:00 Intake Total 220 ml Output Total 1000 ml 875 ml Balance -1000 ml -655 ml IV Total 220 ml Output Urine Total 1000 ml 875 ml # Voids 2 # Bowel Movements 3 Laboratory Tests Test 05/05/19 20:57 05/05/19 22:15 05/06/19 06:15 05/06/19 12:40 Arterial Blood pH 7.445 (7.350-7.450) Arterial Blood Partial Pressure CO2 56.2 mmHg (35.0-45.0) *H Arterial Blood Partial Pressure O2 74.9 mmHg (75.0-100.0) L Arterial Blood HCO3 37.7 mmol/L (22.0-26.0) H Arterial Blood Oxygen Saturation 94.7 % (95-100) L Arterial Blood Base Excess 11.6 (-2-2) *H Kory Test Positive Troponin I 0.023 ng/mL (0.000-0.056) 0.029 ng/mL (0.000-0.056) White Blood Count 6.5 K/UL (4.8-10.8) Red Blood Count 4.75 M/UL (4.70-6.10) Hemoglobin 12.1 G/DL (14.2-18.0) L Hematocrit 38.1 % (42.0-52.0) L Mean Corpuscular Volume 80 FL (80-99) Mean Corpuscular Hemoglobin 25.5 PG (27.0-31.0) L Mean Corpuscular Hemoglobin Concent 31.7 G/DL (32.0-36.0) L Red Cell Distribution Width 15.6 % (11.6-14.8) H Platelet Count 282 K/UL (150-450) Mean Platelet Volume 7.8 FL (6.5-10.1) Neutrophils (%) (Auto) 61.3 % (45.0-75.0) Lymphocytes (%) (Auto) 23.7 % (20.0-45.0) Monocytes (%) (Auto) 9.3 % (1.0-10.0) Eosinophils (%) (Auto) 5.1 % (0.0-3.0) H Basophils (%) (Auto) 0.6 % (0.0-2.0) Sodium Level 143 MMOL/L (136-145) Potassium Level 3.1 MMOL/L (3.5-5.1) L Chloride Level 102 MMOL/L (98-107) Carbon Dioxide Level 37 MMOL/L (21-32) H Anion Gap 4 mmol/L (5-15) L Blood Urea Nitrogen 14 mg/dL (7-18) Creatinine 1.5 MG/DL (0.55-1.30) H Estimat Glomerular Filtration Rate > 60 mL/min (>60) Glucose Level 97 MG/DL (74-106) Hemoglobin A1c 6.5 % (4.3-6.0) H Calcium Level 8.4 MG/DL (8.5-10.1) L Phosphorus Level 4.6 MG/DL (2.5-4.9) Magnesium Level 1.9 MG/DL (1.8-2.4) Total Bilirubin 0.6 MG/DL (0.2-1.0) Aspartate Amino Transf (AST/SGOT) 14 U/L (15-37) L Alanine Aminotransferase (ALT/SGPT) 19 U/L (12-78) Alkaline Phosphatase 69 U/L (46-116) Total Protein 6.6 G/DL (6.4-8.2) Albumin 3.0 G/DL (3.4-5.0) L Globulin 3.6 g/dL Albumin/Globulin Ratio 0.8 (1.0-2.7) L Triglycerides Level 92 MG/DL (30-150) Cholesterol Level 163 MG/DL (< 200) LDL Cholesterol 96 mg/dL (<100) HDL Cholesterol 40 MG/DL (40-60) Cholesterol/HDL Ratio 4.1 (3.3-4.4) Thyroid Stimulating Hormone (TSH) 1.020 uiU/mL (0.358-3.740) Urine Random Sodium < 20 mmol/L (20-110) L Test 05/06/19 14:25 Troponin I 0.023 ng/mL (0.000-0.056) Sandor Lawrence MD May 06, 2019 18:58
--- NOTE | 2019-05-06 19:13 | NUR ---
HAND-OFF: Report given to Lee Ann Ojeda RN.
--- NOTE | 2019-05-06 19:14 | NUR ---
NURSE NOTES: received pt from Ángela Fitzpatrick RN. pt is awake and AOx4 at this moment. pt's O2sat is at 99%with NC. no SOB noted, pt is sitting up right. Right hand 24G is intact, clean, and patent. no dysrhythmia reported from previous shift nurse. bed at the lowest position, alarmed, and locked. call light within reach. will continue to monitor pt with plan of care.
[2019-05-06 20:00] VITALS: BP 102/71
[2019-05-06] MEDS: Atorvastatin 20mg tab ORAL SCH (21:36)
--- NOTE | 2019-05-06 23:40 | NUR ---
HAND-OFF: Report given to Mihir THAO. pt is in stable condition
--- NOTE | 2019-05-06 23:41 | NUR ---
NURSE NOTES: Received report from Lee Ann CARDOZO RN, pt. A/O x's4- able to make needs known, No signs or symptoms of acute cardiac or respiratory distress noted, bed alarm on, side rails up x's3 and safety brakes engaged, Urinal at bedside and within easy reach, pt. belongings checked pt. has android phone at bedside, and $2 bills- that he would like to keep at bedside, Left AC 18G IV intact and patent, safety measures continued, will continue with plan of care. Will contact primary doctor for admission orders. Addendum: 05/06/19 at 3712 by DAMION MARC RN RN please disregard message above - will re-enter note.
--- NOTE | 2019-05-06 23:42 | NUR ---
NURSE NOTES: Received report from Lee Ann CARDOZO RN, pt. A/O x's4- able to make needs known, No signs or symptoms of acute cardiac or respiratory distress noted, bed alarm on, side rails up x's3 and safety brakes engaged, pt. appears to be sating well on 2L NC- no distress noted. 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 able to reposition himself- aware to ask for assist, Urinal at bedside and within easy reach, Rt. hand 24G IV intact and patent, safety measures continued, will continue with plan of care.
--- NOTE | 2019-05-06 23:44 | NUR ---
NURSE NOTES: per Dr. cota it is okay to give morphine 2mg q 8hrs for pain.will noted and carry on
[2019-05-07] VITALS: BP 163/95
--- NOTE | 2019-05-07 00:20 | NUR ---
NURSE NOTES: pt. complaining of generalized joint pain- no relief with [place] given by previous nurse- per Previous nurse So RI- okay to administer Morphine- doctor aware. Will continue to monitor pt. and with plan of care.
[2019-05-07] MEDS: Morphine Sulfate 2mg/ml Inj(IV/IM USE ONLY) IVP PRN ×3 (00:23→17:18)
[2019-05-07] MEDS: Albuterol/Ipratropium 3ml neb HHN SCH ×5 (02:06→23:00)
[2019-05-07 04:00] VITALS: BP 159/83
[2019-05-07 05:44] LABS: BASOPHILS % (AUTO) 1.1 % (0.0-2.0); EOSINOPHILS % (AUTO) 5.3 % (0.0-3.0); HEMATOCRIT 36.8 % (42.0-52.0); HEMOGLOBIN 11.7 G/DL (14.2-18.0); LYMPHOCYTES % (AUTO) 28.3 % (20.0-45.0); MEAN CORPUSCULAR VOLUME 80 FL (80-99); MONOCYTES % (AUTO) 6.6 % (1.0-10.0); NEUTROPHILS % (AUTO) 58.7 % (45.0-75.0); PLATELET COUNT 252 K/UL (150-450); RED BLOOD COUNT 4.59 M/UL (4.70-6.10); RED CELL DISTRIBUTION WIDTH 15.7 % (11.6-14.8); WHITE BLOOD COUNT 7.6 K/UL (4.8-10.8)
[2019-05-07 06:30] LABS: ALANINE AMINOTRANSFERASE 18 U/L (12-78); ALBUMIN 2.9 G/DL (3.4-5.0); ALBUMIN/GLOBULIN RATIO 0.9 (1.0-2.7); ALKALINE PHOSPHATASE 65 U/L (46-116); ANION GAP 6 mmol/L (5-15); ASPARTATE AMINO TRANSFERASE 13 U/L (15-37); BILIRUBIN,TOTAL 0.3 MG/DL (0.2-1.0); BLOOD UREA NITROGEN 23 mg/dL (7-18); CALCIUM 8.3 MG/DL (8.5-10.1); CARBON DIOXIDE 35 MMOL/L (21-32); CHLORIDE 107 MMOL/L (98-107); CHOLESTEROL 136 MG/DL (< 200); CREATININE 1.4 MG/DL (0.55-1.30); FERRITIN 81 NG/ML (8-388); GAMMA GLUTAMYL TRANSPEPTIDASE 29 U/L (5-85); HDL CHOLESTEROL 40 MG/DL (40-60); PHOSPHORUS 3.9 MG/DL (2.5-4.9); POTASSIUM 3.5 MMOL/L (3.5-5.1); SODIUM 147 MMOL/L (136-145); TRIGLYCERIDES 73 MG/DL (30-150)
[2019-05-07 07:03] LABS: % IRON SATURATION 12 % (15-50); IRON 30 ug/dL (50-175); TOTAL IRON BINDING CAPACITY 248 ug/dL (250-450)
--- NOTE | 2019-05-07 07:04 | NUR ---
HAND-OFF: Report given to CelestinaRN, pt. remains stable and no signs of distress noted.
--- NOTE | 2019-05-07 07:05 | NUR ---
NURSE NOTES: Received report from Mihir THAO. Patient resting in bed. Awake, alert oriented x 4. On O2 2L via Nasal canula. No respiratory distress note. Right hand 24 gauge, intact and patent. Safety precautions in place, bed lock and lowest position. Side rails up x 2. Call light within reach. Instructed patient to call for assistance, verbalized understanding. Will continue to monitor patient.
[2019-05-07 08:00] VITALS: BP 149/88
[2019-05-07] MEDS: Docusate 100mg cap ORAL SCH ×3 (08:34→17:18)
[2019-05-07] MEDS: Enoxaparin 40mg Inj SUBQ SCH (08:39)
[2019-05-07] MEDS: Cefepime HCl 2 GM in D5W 55 ML IVPB SCH ×2 (08:49→21:13)
[2019-05-07] MEDS ORDERED: Aspirin Baby 81mg ORAL SCH (09:00)
--- NOTE | 2019-05-07 11:00 | NUR ---
NURSE NOTES: Patient transferred from [facility] to tele per Dr. Haro. Received report from KEESHA Oscar. Patient AOx4, on 2L oxygen via NC. PAtient ST with HR 110, IV on left AC 22G, asymptomatic, patent, intact. Endorsed patient able to ambulate with speech assistant. Belonging list checked with RN. Bed in lowest position, side rails upx3, call light within reach, bed alarm on. Will continue to monitor.
--- NOTE | 2019-05-07 11:01 | NUR ---
TRANSFER TO FLOOR: Patient transferred to Telemetry room 204-2, per Dr Haro. Report given to KEESHA Rose. Belongings remained with the patient; belongings list signed. Patient in stable condition.
--- NOTE | 2019-05-07 11:18 | General Progress Note ---
Assessment/Plan Assessment/Plan: S: I am ok O: seems comfortable. Ambulating in the room Physical Exam Vital Signs General Appearance: alert, GCS 15, obese, Chronically Ill Head: normocephalic Eyes: bilateral eye PERRL ENT: TMs + canals normal, uvula midline Neck: full range of motion Respiratory: lungs clear, decreased breath sounds Cardiovascular #1: edema - 3+ Edema Gastrointestinal: normal inspection, normal bowel sounds, non tender Musculoskeletal: normal inspection Neurologic: alert, motor strength/tone normal, counseling aide III-XII nml as tested, oriented x3 Psychiatric: normal inspection Skin: other - Bilateral scaly rash to the lower extremities Labs and Meds: reviewed and reconciled Assessment/Plan: 1- Acute CHF exacerbation - Diastolic 2. Acute COPD (chronic obstructive pulmonary disease) 3. Morbid obesity 4. HTN 5. Multiple joint OA Plan: Notes from Cardiology is reviwed Ok to transfer to [facility] Subjective Allergies: Coded Allergies: RIVAROXABAN (Verified Allergy, Unknown, 04/05/19) Objective Last 24 Hour Vital Signs Date Time Temp Pulse Resp B/P (MAP) Pulse Ox O2 Delivery O2 Flow Rate FiO2 05/07/19 08:35 110 149/88 05/07/19 08:00 98.2 110 24 149/88 (108) 94 05/07/19 07:43 109 05/07/19 06:55 80 20 96 Nasal Cannula 2.0 28 81 20 92 05/07/19 06:55 92 Nasal Cannula 2.0 28 05/07/19 04:00 98.2 90 20 159/83 (108) 96 05/07/19 04:00 2.0 05/07/19 03:40 77 05/07/19 02:09 80 20 96 Nasal Cannula 2.0 28 81 20 97 05/07/19 00:53 97.7 05/07/19 00:36 88 26 96 Facial 30 05/07/19 00:00 91 05/07/19 00:00 98.8 76 20 163/95 (117) 95 05/07/19 00:00 2.0 05/06/19 23:15 90 16 97 Nasal Cannula 2.0 28 94 22 93 05/06/19 21:00 Nasal Cannula 2.0 05/06/19 20:00 2.0 05/06/19 20:00 97.7 85 20 102/71 (81) 98 1/3/20 19:43 63 20 96 Nasal Cannula 2.0 28 81 20 93 05/06/19 19:33 93 Nasal Cannula 2.0 28 05/06/19 19:33 79 05/06/19 16:00 98.0 81 24 144/90 (108) 94 05/06/19 15:34 87 05/06/19 14:43 86 20 98 Nasal Cannula 2.0 28 84 20 94 05/06/19 12:00 82 05/06/19 12:00 Bi-pap 05/06/19 12:00 2.0 05/06/19 11:39 88 18 97 Nasal Cannula 2.0 28 86 18 95 Intake and Output 05/06/19 05/07/19 19:00 07:00 Intake Total 560 ml 55 ml Output Total 350 ml 700 ml Balance 210 ml -645 ml Intake Oral 560 ml IV Total 55 ml Output Urine Total 350 ml 700 ml # Voids 1 # Bowel Movements 3 Laboratory Tests 05/06/19 12:40: Urine Random Sodium < 20L 05/06/19 14:25: Troponin I 0.023 05/07/19 04:01: Troponin I 0.041, White Blood Count 7.6, Red Blood Count 4.59L, Hemoglobin 11.7L , Hematocrit 36.8L, Mean Corpuscular Volume 80, Mean Corpuscular Hemoglobin 25.5L, Mean Corpuscular Hemoglobin Concent 31.8L, Red Cell Distribution Width 15.7H, Platelet Count 252, Mean Platelet Volume 7.8, Neutrophils (%) (Auto) 58.7 , Lymphocytes (%) (Auto) 28.3, Monocytes (%) (Auto) 6.6, Eosinophils (%) (Auto) 5.3H, Basophils (%) (Auto) 1.1, Sodium Level 147H, Potassium Level 3.5, Chloride Level 107, Carbon Dioxide Level 35H, Anion Gap 6, Blood Urea Nitrogen 23H, Creatinine 1.4H, Estimat Glomerular Filtration Rate > 60, Glucose Level 115H, Hemoglobin A1c 6.5H, Uric Acid 7.1, Calcium Level 8.3L, Phosphorus Level 3.9, Magnesium Level 1.8, Iron Level 30L, Total Iron Binding Capacity 248L, Percent Iron Saturation 12L, Unsaturated Iron Binding 218, Ferritin 81, Total Bilirubin 0.3, Gamma Glutamyl Transpeptidase 29, Aspartate Amino Transf (AST/ SGOT) 13L, Alanine Aminotransferase (ALT/SGPT) 18, Alkaline Phosphatase 65, C- Reactive Protein, Quantitative 3.3H, Pro-B-Type Natriuretic Peptide 309H, Total Protein 6.3L, Albumin 2.9L, Globulin 3.4, Albumin/Globulin Ratio 0.9L, Triglycerides Level 73, Cholesterol Level 136, LDL Cholesterol 82, HDL Cholesterol 40, Cholesterol/HDL Ratio 3.4, Vitamin B12 Level 341, Folate 10.6, Thyroid Stimulating Hormone (TSH) 2.130 Height (Feet): 5 Height (Inches): 10.00 Weight (Pounds): 410 Desirae Haro MD May 07, 2019 11:18
[2019-05-07] MEDS: Doxycycline Hyclate 100 MG in D5W 110 ML IV SCH ×2 (11:54→21:13)
[2019-05-07 12:00] VITALS: BP 140/94
[2019-05-07] MEDS ORDERED: HYDROcodone/Acetamin 5/325 tab ORAL PRN (12:00)
--- NOTE | 2019-05-07 12:45 | Nephrology Progress Note ---
Assessment/Plan Problem List: (1) Renal failure (2) Obesity, morbid, BMI 50 or higher (3) COPD (chronic obstructive pulmonary disease) (4) Electrolyte imbalance Assessment (1) Hypokalemia (2) CHF (congestive heart failure) (3) Renal failure (4) Obesity, morbid, BMI 50 or higher (5) CO2 retention (6) COPD (chronic obstructive pulmonary disease) elevated Cr likely due to diuresis Obesity , NATASHA AT fib with FVR HTN Congestive heart failure, likely diastolic dysfunction. EF 60% Recurrent NSVT. No syncope. Hypertension. Morbid obesity. COPD. Lipidemia. Plan stop NSAIDs UA Monitor Cr rising Keep BP in check Monitor lytes check B12 and Folic acid Diamox PO as needed per orders per cardio and pulmonary taper steroids as possible Objective Objective Last 24 Hour Vital Signs Date Time Temp Pulse Resp B/P (MAP) Pulse Ox O2 Delivery O2 Flow Rate FiO2 05/07/19 08:35 110 149/88 05/07/19 08:00 98.2 110 24 149/88 (108) 94 05/07/19 07:43 109 05/07/19 06:55 80 20 96 Nasal Cannula 2.0 28 81 20 92 05/07/19 06:55 92 Nasal Cannula 2.0 28 05/07/19 04:00 98.2 90 20 159/83 (108) 96 05/07/19 04:00 2.0 05/07/19 03:40 77 05/07/19 02:09 80 20 96 Nasal Cannula 2.0 28 81 20 97 05/07/19 00:53 97.7 05/07/19 00:36 88 26 96 Facial 30 05/07/19 00:00 91 05/07/19 00:00 98.8 76 20 163/95 (117) 95 05/07/19 00:00 2.0 05/06/19 23:15 90 16 97 Nasal Cannula 2.0 28 94 22 93 05/06/19 21:00 Nasal Cannula 2.0 05/06/19 20:00 2.0 05/06/19 20:00 97.7 85 20 102/71 (81) 98 05/06/19 19:43 63 20 96 Nasal Cannula 2.0 28 81 20 93 05/06/19 19:33 93 Nasal Cannula 2.0 28 05/06/19 19:33 79 05/06/19 16:00 98.0 81 24 144/90 (108) 94 05/06/19 15:34 87 05/06/19 14:43 86 20 98 Nasal Cannula 2.0 28 84 20 94 Intake and Output 05/06/19 05/07/19 19:00 07:00 Intake Total 560 ml 55 ml Output Total 350 ml 700 ml Balance 210 ml -645 ml Intake Oral 560 ml IV Total 55 ml Output Urine Total 350 ml 700 ml # Voids 1 # Bowel Movements 3 Laboratory Tests 05/06/19 14:25: Troponin I 0.023 05/07/19 04:01: Troponin I 0.041, White Blood Count 7.6, Red Blood Count 4.59L, Hemoglobin 11.7L , Hematocrit 36.8L, Mean Corpuscular Volume 80, Mean Corpuscular Hemoglobin 25.5L, Mean Corpuscular Hemoglobin Concent 31.8L, Red Cell Distribution Width 15.7H, Platelet Count 252, Mean Platelet Volume 7.8, Neutrophils (%) (Auto) 58.7 , Lymphocytes (%) (Auto) 28.3, Monocytes (%) (Auto) 6.6, Eosinophils (%) (Auto) 5.3H, Basophils (%) (Auto) 1.1, Sodium Level 147H, Potassium Level 3.5, Chloride Level 107, Carbon Dioxide Level 35H, Anion Gap 6, Blood Urea Nitrogen 23H, Creatinine 1.4H, Estimat Glomerular Filtration Rate > 60, Glucose Level 115H, Hemoglobin A1c 6.5H, Uric Acid 7.1, Calcium Level 8.3L, Phosphorus Level 3.9, Magnesium Level 1.8, Iron Level 30L, Total Iron Binding Capacity 248L, Percent Iron Saturation 12L, Unsaturated Iron Binding 218, Ferritin 81, Total Bilirubin 0.3, Gamma Glutamyl Transpeptidase 29, Aspartate Amino Transf (AST/ SGOT) 13L, Alanine Aminotransferase (ALT/SGPT) 18, Alkaline Phosphatase 65, C- Reactive Protein, Quantitative 3.3H, Pro-B-Type Natriuretic Peptide 309H, Total Protein 6.3L, Albumin 2.9L, Globulin 3.4, Albumin/Globulin Ratio 0.9L, Triglycerides Level 73, Cholesterol Level 136, LDL Cholesterol 82, HDL Cholesterol 40, Cholesterol/HDL Ratio 3.4, Vitamin B12 Level 341, Folate 10.6, Thyroid Stimulating Hormone (TSH) 2.130 Height (Feet): 5 Height (Inches): 10.00 Weight (Pounds): 410 Bebeto Yin MD May 07, 2019 12:45
[2019-05-07] MEDS ORDERED: NS 275ml ONE (14:41)
[2019-05-07] MEDS ORDERED: Tubing IV Secondary IV ONE (14:41)
--- NOTE | 2019-05-07 14:47 | Infectious Diseases Prog Note ---
Assessment/Plan Problems: (1) Pneumonia Assessment & Plan: continue cefepime and vancomycin empirically, pending sputum culture , monitor CXR (2) COPD (chronic obstructive pulmonary disease) Assessment & Plan: Due to the above, continue inhalers, antibiotics , close monitor or CXR (3) Obesity, morbid, BMI 50 or higher Assessment & Plan: recommend diet and exercise (4) Renal failure Assessment & Plan: renally dosed meds as per pharmacy , renal is following Subjective Constitutional: Reports: no symptoms HEENT: Reports: no symptoms Respiratory: Reports: shortness of breath Breasts: Reports: no symptoms Cardiovascular: Reports: no symptoms Gastrointestinal/Abdominal: Reports: no symptoms Genitourinary: Reports: no symptoms Neurologic: Reports: no symptoms Psychiatric: Reports: no symptoms Skin: Reports: no symptoms Endocrine: Reports: no symptoms Hematologic: Reports: no symptoms Musculoskeletal: Reports: no symptoms Allergies: Coded Allergies: RIVAROXABAN (Verified Allergy, Unknown, 04/05/19) Objective Vital Signs Last 24 Hour Vital Signs Date Time Temp Pulse Resp B/P (MAP) Pulse Ox O2 Delivery O2 Flow Rate FiO2 05/07/19 12:00 97.6 74 24 140/94 (109) 96 05/07/19 12:00 73 05/07/19 08:35 110 149/88 05/07/19 08:00 98.2 110 24 149/88 (108) 94 05/07/19 07:43 109 05/07/19 06:55 80 20 96 Nasal Cannula 2.0 28 81 20 92 05/07/19 06:55 92 Nasal Cannula 2.0 28 05/07/19 04:00 98.2 90 20 159/83 (108) 96 05/07/19 04:00 2.0 05/07/19 03:40 77 05/07/19 02:09 80 20 96 Nasal Cannula 2.0 28 81 20 97 05/07/19 00:53 97.7 05/07/19 00:36 88 26 96 Facial 30 05/07/19 00:00 91 05/07/19 00:00 98.8 76 20 163/95 (117) 95 05/07/19 00:00 2.0 05/06/19 23:15 90 16 97 Nasal Cannula 2.0 28 94 22 93 05/06/19 21:00 Nasal Cannula 2.0 05/06/19 20:00 2.0 1/3/20 20:00 97.7 85 20 102/71 (81) 98 05/06/19 19:43 63 20 96 Nasal Cannula 2.0 28 81 20 93 05/06/19 19:33 93 Nasal Cannula 2.0 28 05/06/19 19:33 79 05/06/19 16:00 98.0 81 24 144/90 (108) 94 05/06/19 15:34 87 Height (Feet): 5 Height (Inches): 10.00 Weight (Pounds): 410 General Appearance: WD/WN, no acute distress HEENT: normocephalic, atraumatic, anicteric, mucous membranes moist, PERRL Respiratory/Chest: chest wall non-tender, no respiratory distress, no accessory muscle use, decreased breath sounds, crackles/rales Cardiovascular: normal peripheral pulses, normal rate, regular rhythm, no gallop/murmur, no JVD Abdomen: normal bowel sounds, soft, non tender, no organomegaly, non distended , no mass, no scars Genitourinary: normal external genitalia Extremities: no cyanosis, no clubbing Skin: no rash, no lesions, no ulcers 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, no motor/sensory deficits, alert, oriented x 3, responsive Lymphatic: no neck adenopathy, no groin adenopathy Musculoskeletal: normal muscle bulk, no effusion Microbiology Date/Time Source Procedure Growth Status 05/05/19 14:50 Blood Blood Culture - Preliminary NO GROWTH AFTER 24 HOURS Resulted 05/05/19 14:15 Blood Blood Culture - Preliminary NO GROWTH AFTER 24 HOURS Resulted Laboratory Tests Test 05/07/19 04:01 White Blood Count 7.6 K/UL (4.8-10.8) Red Blood Count 4.59 M/UL (4.70-6.10) L Hemoglobin 11.7 G/DL (14.2-18.0) L Hematocrit 36.8 % (42.0-52.0) L Mean Corpuscular Volume 80 FL (80-99) Mean Corpuscular Hemoglobin 25.5 PG (27.0-31.0) L Mean Corpuscular Hemoglobin Concent 31.8 G/DL (32.0-36.0) L Red Cell Distribution Width 15.7 % (11.6-14.8) H Platelet Count 252 K/UL (150-450) Mean Platelet Volume 7.8 FL (6.5-10.1) Neutrophils (%) (Auto) 58.7 % (45.0-75.0) Lymphocytes (%) (Auto) 28.3 % (20.0-45.0) Monocytes (%) (Auto) 6.6 % (1.0-10.0) Eosinophils (%) (Auto) 5.3 % (0.0-3.0) H Basophils (%) (Auto) 1.1 % (0.0-2.0) Sodium Level 147 MMOL/L (136-145) H Potassium Level 3.5 MMOL/L (3.5-5.1) Chloride Level 107 MMOL/L (98-107) Carbon Dioxide Level 35 MMOL/L (21-32) H Anion Gap 6 mmol/L (5-15) Blood Urea Nitrogen 23 mg/dL (7-18) H Creatinine 1.4 MG/DL (0.55-1.30) H Estimat Glomerular Filtration Rate > 60 mL/min (>60) Glucose Level 115 MG/DL (74-106) H Hemoglobin A1c 6.5 % (4.3-6.0) H Uric Acid 7.1 MG/DL (2.6-7.2) Calcium Level 8.3 MG/DL (8.5-10.1) L Phosphorus Level 3.9 MG/DL (2.5-4.9) Magnesium Level 1.8 MG/DL (1.8-2.4) Iron Level 30 ug/dL (50-175) L Total Iron Binding Capacity 248 ug/dL (250-450) L Percent Iron Saturation 12 % (15-50) L Unsaturated Iron Binding 218 ug/dL (112-346) Ferritin 81 NG/ML (8-388) Total Bilirubin 0.3 MG/DL (0.2-1.0) Gamma Glutamyl Transpeptidase 29 U/L (5-85) Aspartate Amino Transf (AST/SGOT) 13 U/L (15-37) L Alanine Aminotransferase (ALT/SGPT) 18 U/L (12-78) Alkaline Phosphatase 65 U/L (46-116) Troponin I 0.041 ng/mL (0.000-0.056) C-Reactive Protein, Quantitative 3.3 mg/dL (0.00-0.90) H Pro-B-Type Natriuretic Peptide 309 pg/mL (0-125) H Total Protein 6.3 G/DL (6.4-8.2) L Albumin 2.9 G/DL (3.4-5.0) L Globulin 3.4 g/dL Albumin/Globulin Ratio 0.9 (1.0-2.7) L Triglycerides Level 73 MG/DL (30-150) Cholesterol Level 136 MG/DL (< 200) LDL Cholesterol 82 mg/dL (<100) HDL Cholesterol 40 MG/DL (40-60) Cholesterol/HDL Ratio 3.4 (3.3-4.4) Vitamin B12 Level 341 PG/ML (193-986) Folate 10.6 NG/ML (8.6-58.9) Thyroid Stimulating Hormone (TSH) 2.130 uiU/mL (0.358-3.740) Current Medications Medications (Trade) Dose Ordered Sig/David Route PRN Reason Start Time Stop Time Status Last Admin Dose Admin Acetaminophen (Tylenol) 650 mg Q6H PRN ORAL Mild Pain/Temp > 100.5 05/07/19 12:00 06/04/19 11:59 Acetaminophen/ Hydrocodone Bitart ([place] 5/325) 1 tab Q6H PRN ORAL moderate pain 05/07/19 12:00 05/12/19 11:59 Albuterol/ Ipratropium (Albuterol/ Ipratropium) 3 ml Q4HRT HHN 05/07/19 15:00 05/10/19 22:59 Amlodipine Besylate (Norvasc) 10 mg DAILY ORAL 05/08/19 09:00 06/06/19 08:59 Aspirin (ASA) 81 mg DAILY ORAL 05/08/19 09:00 06/06/19 08:59 Atorvastatin Calcium (Lipitor) 40 mg BEDTIME ORAL 05/07/19 21:00 06/04/19 20:59 Cefepime HCl 2 gm/ Dextrose 55 ml @ 110 mls/hr EVERY 12 HOURS IVPB 05/07/19 21:00 05/12/19 20:59 Docusate Sodium (Colace) 100 mg THREE TIMES A DAY ORAL 05/07/19 13:00 06/05/19 12:59 05/07/19 13:36 Doxycycline Hyclate 100 mg/ Dextrose 110 ml @ 110 mls/hr Q12HR IV 05/07/19 12:00 05/12/19 11:59 05/07/19 11:54 Enoxaparin Sodium (Lovenox) 40 mg DAILY SUBQ 05/08/19 09:00 06/05/19 08:59 Furosemide (Lasix) 40 mg DAILY IV 05/08/19 09:00 06/05/19 08:59 Gabapentin (Neurontin) 300 mg THREE TIMES A DAY ORAL 05/07/19 13:00 06/05/19 08:59 05/07/19 13:36 Iron Sucrose 200 mg/Sodium Chloride 120 ml @ 240 mls/hr ONCE ONCE IV 05/07/19 15:00 05/07/19 15:29 Morphine Sulfate (Morphine Sulfate) 2 mg Q8H PRN IVP Severe Pain (Pain Scale 7-10) 05/07/19 12:00 05/14/19 11:59 Pantoprazole (Protonix) 40 mg EVERY 12 HOURS ORAL 05/07/19 21:00 06/05/19 20:59 Potassium Chloride (K-Dur) 40 meq TWICE A DAY ORAL 05/07/19 18:00 06/05/19 10:44 Cortney Jackson M.D. May 07, 2019 14:47
[2019-05-07] MEDS ORDERED: Iron Sucrose 200 MG in NS 110 ML IV ONE (15:00)
[2019-05-07 16:00] VITALS: BP 150/96
--- NOTE | 2019-05-07 19:18 | NUR ---
HAND-OFF: Report given to KEESHA Harper.
[2019-05-07 20:00] VITALS: BP 149/99
[2019-05-07] MEDS: Carvedilol 6.25mg Tab ORAL SCH (21:00)
--- NOTE | 2019-05-07 21:11 | Pulmonology Progress Note ---
Assessment/Plan Assessment/Plan Pulmonary Progress Note HPI The patient is a 48-year-old man with history of Obesity, Congestive Heart Failure, Hypertension, Chronic Obstructive Pulmonary Disease admitted with shortness of breath, worsening LE swelling, cough, denies vomiting or diarrhea H/o Afib on AC, h/o NATASHA on BiPAP Past Medical History: Obesity, Congestive Heart Failure, Chronic Obstructive Pulmonary Disease, Diabetes, Hypertension, NATASHA, Obesity Allergies: RIVAROXABAN All Other Systems: negative except mentioned in HPI Physical Exam Vital Signs Noted General: Awake and alert, no acute distress, obese HEENT: NC/AT. EOMI. tympanic membranes are erythematous, moist mm Cardiovascular: RRR. S1 and S2 normal. No murmur appreciated. Mild edema noted Resp: Normal work of breathing. CTAB Abdomen: Abdomen is soft, nondistended. Nontender Skin: Intact. No abrasions, laceration or rash over the exposed skin Extremities: Normal tone and bulk. Moving all extremities. No obvious deformity. Neuro: Awake and alert. Mentating appropriately. Impression: Congestive heart failure Hypertension Chronic Obstructive Pulmonary Disease Obesity Obstructive Sleep Apnea Hypertension Diabetes Plan - Diuresis PRN - Steroids, wean as tolerated - HHN - O2 PRN - BiPAP PRN/QHS - ISS - PPX - CIRCULAR SAWYER STONE Medications Labs Test 05/05/19 14:15 White Blood Count 7.2 K/UL (4.8-10.8) Red Blood Count 4.47 M/UL (4.70-6.10) Hemoglobin 11.2 G/DL (14.2-18.0) Hematocrit 36.0 % (42.0-52.0) Mean Corpuscular Volume 81 FL (80-99) Mean Corpuscular Hemoglobin 25.0 PG (27.0-31.0) Mean Corpuscular Hemoglobin Concent 31.0 G/DL (32.0-36.0) Red Cell Distribution Width 15.5 % (11.6-14.8) Platelet Count 240 K/UL (150-450) Mean Platelet Volume 8.0 FL (6.5-10.1) Neutrophils (%) (Auto) 68.5 % (45.0-75.0) Lymphocytes (%) (Auto) 17.8 % (20.0-45.0) Monocytes (%) (Auto) 7.6 % (1.0-10.0) Eosinophils (%) (Auto) 5.6 % (0.0-3.0) Basophils (%) (Auto) 0.6 % (0.0-2.0) Prothrombin Time 10.8 SEC (9.30-11.50) Prothromb Time International Ratio 1.0 (0.9-1.1) Activated Partial Thromboplast Time 29 SEC (23-33) D-Dimer 1.25 mg/L FEU (0.00-0.49) Sodium Level 149 MMOL/L (136-145) Potassium Level 3.1 MMOL/L (3.5-5.1) Chloride Level 108 MMOL/L (98-107) Carbon Dioxide Level 40 MMOL/L (21-32) Anion Gap 1 mmol/L (5-15) Blood Urea Nitrogen 12 mg/dL (7-18) Creatinine 1.4 MG/DL (0.55-1.30) Estimat Glomerular Filtration Rate 54.1 mL/min (>60) Glucose Level 116 MG/DL (74-106) Calcium Level 8.1 MG/DL (8.5-10.1) Total Bilirubin 0.5 MG/DL (0.2-1.0) Aspartate Amino Transf (AST/SGOT) 12 U/L (15-37) Alanine Aminotransferase (ALT/SGPT) 18 U/L (12-78) Alkaline Phosphatase 59 U/L (46-116) Pro-B-Type Natriuretic Peptide 1026 pg/mL (0-125) Total Protein 6.0 G/DL (6.4-8.2) Albumin 2.7 G/DL (3.4-5.0) Globulin 3.3 g/dL Albumin/Globulin Ratio 0.8 (1.0-2.7) EKG: Rate: normal Rhythm: NSR ST Segments: other - T inversion 1, aVL unchanged from previous CXR: Worsening congestion, suspect L effusion LE Dupplex: no DVT Subjective ROS Limited/Unobtainable: No Allergies: Coded Allergies: RIVAROXABAN (Verified Allergy, Unknown, 04/05/19) Objective Last 24 Hour Vital Signs Date Time Temp Pulse Resp B/P (MAP) Pulse Ox O2 Delivery O2 Flow Rate FiO2 05/07/19 16:00 98.2 110 22 150/96 (114) 94 05/07/19 16:00 101 05/07/19 12:00 97.6 74 24 140/94 (109) 96 05/07/19 12:00 73 05/07/19 08:35 110 149/88 05/07/19 08:00 98.2 110 24 149/88 (108) 94 05/07/19 07:43 109 05/07/19 06:55 80 20 96 Nasal Cannula 2.0 28 81 20 92 05/07/19 06:55 92 Nasal Cannula 2.0 28 05/07/19 04:00 98.2 90 20 159/83 (108) 96 05/07/19 04:00 2.0 05/07/19 03:40 77 05/07/19 02:09 80 20 96 Nasal Cannula 2.0 28 81 20 97 05/07/19 00:53 97.7 05/07/19 00:36 88 26 96 Facial 30 05/07/19 00:00 91 05/07/19 00:00 98.8 76 20 163/95 (117) 95 05/07/19 00:00 2.0 05/06/19 23:15 90 16 97 Nasal Cannula 2.0 28 94 22 93 Intake and Output 05/06/19 05/07/19 19:00 07:00 Intake Total 560 ml 55 ml Output Total 350 ml 700 ml Balance 210 ml -645 ml Intake Oral 560 ml IV Total 55 ml Output Urine Total 350 ml 700 ml # Voids 1 # Bowel Movements 3 Microbiology Date/Time Source Procedure Growth Status 05/05/19 14:50 Blood Blood Culture - Preliminary NO GROWTH AFTER 24 HOURS Resulted 05/05/19 14:15 Blood Blood Culture - Preliminary NO GROWTH AFTER 24 HOURS Resulted Laboratory Tests 05/07/19 04:01: White Blood Count 7.6, Red Blood Count 4.59L, Hemoglobin 11.7L, Hematocrit 36.8L , Mean Corpuscular Volume 80, Mean Corpuscular Hemoglobin 25.5L, Mean Corpuscular Hemoglobin Concent 31.8L, Red Cell Distribution Width 15.7H, Platelet Count 252, Mean Platelet Volume 7.8, Neutrophils (%) (Auto) 58.7, Lymphocytes (%) (Auto) 28.3, Monocytes (%) (Auto) 6.6, Eosinophils (%) (Auto) 5.3H, Basophils (%) (Auto) 1.1, Sodium Level 147H, Potassium Level 3.5, Chloride Level 107, Carbon Dioxide Level 35H, Anion Gap 6, Blood Urea Nitrogen 23H, Creatinine 1.4H, Estimat Glomerular Filtration Rate > 60, Glucose Level 115H, Hemoglobin A1c 6.5H, Uric Acid 7.1, Calcium Level 8.3L, Phosphorus Level 3.9, Magnesium Level 1.8, Iron Level 30L, Total Iron Binding Capacity 248L, Percent Iron Saturation 12L, Unsaturated Iron Binding 218, Ferritin 81, Total Bilirubin 0.3, Gamma Glutamyl Transpeptidase 29, Aspartate Amino Transf (AST/ SGOT) 13L, Alanine Aminotransferase (ALT/SGPT) 18, Alkaline Phosphatase 65, Troponin I 0.041, C-Reactive Protein, Quantitative 3.3H, Pro-B-Type Natriuretic Peptide 309H, Total Protein 6.3L, Albumin 2.9L, Globulin 3.4, Albumin/Globulin Ratio 0.9L, Triglycerides Level 73, Cholesterol Level 136, LDL Cholesterol 82, HDL Cholesterol 40, Cholesterol/HDL Ratio 3.4, Vitamin B12 Level 341, Folate 10.6, Thyroid Stimulating Hormone (TSH) 2.130 Current Medications Medications (Trade) Dose Ordered Sig/David Route PRN Reason Start Time Stop Time Status Last Admin Dose Admin Acetaminophen (Tylenol) 650 mg Q6H PRN ORAL Mild Pain/Temp > 100.5 05/07/19 12:00 06/04/19 11:59 Acetaminophen/ Hydrocodone Bitart ([place] 5/325) 1 tab Q6H PRN ORAL moderate pain 05/07/19 12:00 05/12/19 11:59 Albuterol/ Ipratropium (Albuterol/ Ipratropium) 3 ml Q4HRT HHN 05/07/19 15:00 05/10/19 22:59 Amlodipine Besylate (Norvasc) 5 mg DAILY ORAL 05/08/19 09:00 06/07/19 08:59 Aspirin (ASA) 81 mg DAILY ORAL 05/08/19 09:00 06/06/19 08:59 Atorvastatin Calcium (Lipitor) 40 mg BEDTIME ORAL 05/07/19 21:00 06/04/19 20:59 Carvedilol (Coreg) 6.25 mg EVERY 12 HOURS ORAL 05/07/19 21:00 06/06/19 20:59 Cefepime HCl 2 gm/ Dextrose 55 ml @ 110 mls/hr EVERY 12 HOURS IVPB 05/07/19 21:00 05/12/19 20:59 Docusate Sodium (Colace) 100 mg THREE TIMES A DAY ORAL 05/07/19 13:00 06/05/19 12:59 05/07/19 17:18 Doxazosin Mesylate (Cardura) 2 mg DAILY ORAL 05/07/19 19:45 06/06/19 19:44 Doxycycline Hyclate 100 mg/ Dextrose 110 ml @ 110 mls/hr Q12HR IV 05/07/19 12:00 05/12/19 11:59 05/07/19 11:54 Enoxaparin Sodium (Lovenox) 40 mg DAILY SUBQ 05/08/19 09:00 06/05/19 08:59 Furosemide (Lasix) 20 mg DAILY IV 05/08/19 09:00 06/07/19 08:59 Gabapentin (Neurontin) 300 mg THREE TIMES A DAY ORAL 05/07/19 13:00 06/05/19 08:59 05/07/19 17:18 Morphine Sulfate (Morphine Sulfate) 2 mg Q8H PRN IVP Severe Pain (Pain Scale 7-10) 05/07/19 12:00 05/14/19 11:59 05/07/19 17:18 Pantoprazole (Protonix) 40 mg EVERY 12 HOURS ORAL 05/07/19 21:00 06/05/19 20:59 Potassium Chloride (K-Dur) 40 meq TWICE A DAY ORAL 05/07/19 18:00 06/05/19 10:44 05/07/19 17:18 Mahesh Wise MD May 07, 2019 21:10
[2019-05-07] MEDS: Atorvastatin 20mg tab ORAL SCH (21:12)
[2019-05-07] MEDS: Doxazosin 1mg Tab ORAL SCH (21:12)
--- NOTE | 2019-05-07 22:56 | Cardiology Progress Note ---
Assessment/Plan Assessment/Plan 1. Dyspnea, most likely acute on chronic HFnlEF due to combination of HTN, CKD and obesity, there is also element of obesity hypoventilation syndrome, no prior hx of tobacco use. Continue gentle diuresis, metoprolol. 2. Morbid obesity. 3. CKD. 4. DM, consider ASA and atorvastatin. 5. Hx of non-sustained ventricular tachycardia, given normal EF, would like to proceed with B-blockers. Subjective Subjective Sinus rhythm at rate of 94. Objective Last 24 Hour Vital Signs Date Time Temp Pulse Resp B/P (MAP) Pulse Ox O2 Delivery O2 Flow Rate FiO2 05/07/19 21:00 94 149/99 05/07/19 16:00 98.2 110 22 150/96 (114) 94 05/07/19 16:00 101 05/07/19 12:00 97.6 74 24 140/94 (109) 96 05/07/19 12:00 73 05/07/19 08:35 110 149/88 05/07/19 08:00 98.2 110 24 149/88 (108) 94 05/07/19 07:43 109 05/07/19 06:55 80 20 96 Nasal Cannula 2.0 28 81 20 92 05/07/19 06:55 92 Nasal Cannula 2.0 28 05/07/19 04:00 98.2 90 20 159/83 (108) 96 05/07/19 04:00 2.0 05/07/19 03:40 77 05/07/19 02:09 80 20 96 Nasal Cannula 2.0 28 81 20 97 05/07/19 00:53 97.7 05/07/19 00:36 88 26 96 Facial 30 05/07/19 00:00 91 05/07/19 00:00 98.8 76 20 163/95 (117) 95 05/07/19 00:00 2.0 05/06/19 23:15 90 16 97 Nasal Cannula 2.0 28 94 22 93 Intake and Output 05/06/19 05/07/19 19:00 07:00 Intake Total 560 ml 55 ml Output Total 350 ml 700 ml Balance 210 ml -645 ml Intake Oral 560 ml IV Total 55 ml Output Urine Total 350 ml 700 ml # Voids 1 # Bowel Movements 3 2D Echo: Normal EF, Mod LVH, Mild LAE, RVSP 37, Grade II LVDD (pseudonormal Physio) Laboratory Tests Test 05/07/19 04:01 White Blood Count 7.6 K/UL (4.8-10.8) Red Blood Count 4.59 M/UL (4.70-6.10) L Hemoglobin 11.7 G/DL (14.2-18.0) L Hematocrit 36.8 % (42.0-52.0) L Mean Corpuscular Volume 80 FL (80-99) Mean Corpuscular Hemoglobin 25.5 PG (27.0-31.0) L Mean Corpuscular Hemoglobin Concent 31.8 G/DL (32.0-36.0) L Red Cell Distribution Width 15.7 % (11.6-14.8) H Platelet Count 252 K/UL (150-450) Mean Platelet Volume 7.8 FL (6.5-10.1) Neutrophils (%) (Auto) 58.7 % (45.0-75.0) Lymphocytes (%) (Auto) 28.3 % (20.0-45.0) Monocytes (%) (Auto) 6.6 % (1.0-10.0) Eosinophils (%) (Auto) 5.3 % (0.0-3.0) H Basophils (%) (Auto) 1.1 % (0.0-2.0) Sodium Level 147 MMOL/L (136-145) H Potassium Level 3.5 MMOL/L (3.5-5.1) Chloride Level 107 MMOL/L (98-107) Carbon Dioxide Level 35 MMOL/L (21-32) H Anion Gap 6 mmol/L (5-15) Blood Urea Nitrogen 23 mg/dL (7-18) H Creatinine 1.4 MG/DL (0.55-1.30) H Estimat Glomerular Filtration Rate > 60 mL/min (>60) Glucose Level 115 MG/DL (74-106) H Hemoglobin A1c 6.5 % (4.3-6.0) H Uric Acid 7.1 MG/DL (2.6-7.2) Calcium Level 8.3 MG/DL (8.5-10.1) L Phosphorus Level 3.9 MG/DL (2.5-4.9) Magnesium Level 1.8 MG/DL (1.8-2.4) Iron Level 30 ug/dL (50-175) L Total Iron Binding Capacity 248 ug/dL (250-450) L Percent Iron Saturation 12 % (15-50) L Unsaturated Iron Binding 218 ug/dL (112-346) Ferritin 81 NG/ML (8-388) Total Bilirubin 0.3 MG/DL (0.2-1.0) Gamma Glutamyl Transpeptidase 29 U/L (5-85) Aspartate Amino Transf (AST/SGOT) 13 U/L (15-37) L Alanine Aminotransferase (ALT/SGPT) 18 U/L (12-78) Alkaline Phosphatase 65 U/L (46-116) Troponin I 0.041 ng/mL (0.000-0.056) C-Reactive Protein, Quantitative 3.3 mg/dL (0.00-0.90) H Pro-B-Type Natriuretic Peptide 309 pg/mL (0-125) H Total Protein 6.3 G/DL (6.4-8.2) L Albumin 2.9 G/DL (3.4-5.0) L Globulin 3.4 g/dL Albumin/Globulin Ratio 0.9 (1.0-2.7) L Triglycerides Level 73 MG/DL (30-150) Cholesterol Level 136 MG/DL (< 200) LDL Cholesterol 82 mg/dL (<100) HDL Cholesterol 40 MG/DL (40-60) Cholesterol/HDL Ratio 3.4 (3.3-4.4) Vitamin B12 Level 341 PG/ML (193-986) Folate 10.6 NG/ML (8.6-58.9) Thyroid Stimulating Hormone (TSH) 2.130 uiU/mL (0.358-3.740) Microbiology Date/Time Source Procedure Growth Status 05/05/19 14:50 Blood Blood Culture - Preliminary NO GROWTH AFTER 24 HOURS Resulted 05/05/19 14:15 Blood Blood Culture - Preliminary NO GROWTH AFTER 24 HOURS Resulted Objective HEENT: NC/AT. EOMI. Anicteric, no pallor. Neck: JVP <5 cm, no carotid bruit. Cardiovascular: Regalar, rate and rhythm. Normal S1 and S2. No murmurs, gallops or rubs Resp: Clear to auscultation. Abdomen: Abdomen is soft, nondistended. Nontender, + BS Extremities: No edema, clubbing or cyanosis. Sandor Lawrence MD May 07, 2019 22:56
[2019-05-08] VITALS: BP 150/96
[2019-05-08] MEDS: Morphine Sulfate 2mg/ml Inj(IV/IM USE ONLY) IVP PRN ×3 (02:30→22:54)
[2019-05-08] MEDS: Albuterol/Ipratropium 3ml neb HHN SCH ×6 (03:00→23:14)
[2019-05-08 04:00] VITALS: BP 151/96
--- NOTE | 2019-05-08 07:20 | NUR ---
HAND-OFF: Report given to Shelly THAO. Plan of care endorsed.
--- NOTE | 2019-05-08 07:20 | NUR ---
HAND-OFF: Report given to Rohith THAO. Plan of care endorsed.
--- NOTE | 2019-05-08 07:20 | NUR ---
NURSE NOTES: Received report from KEESHA Mcmillan. The patient is resting on the bed without acute distress or shortness of breath. The patient's bed in the lowest position, call light in reach, and fall and aspiration precaution reinforced. IV site intact and patent. Oxygen therapy and Bipap PRN as ordered. Will continue plan of care.
[2019-05-08 08:00] VITALS: BP 159/72
[2019-05-08] MEDS: Doxycycline Hyclate 100 MG in D5W 110 ML IV SCH (08:55)
[2019-05-08] MEDS: Cefepime HCl 2 GM in D5W 55 ML IVPB SCH (08:56)
[2019-05-08] MEDS: Docusate 100mg cap ORAL SCH ×3 (08:56→17:44)
[2019-05-08] MEDS: Aspirin Baby 81mg ORAL SCH (08:56)
[2019-05-08] MEDS: Doxazosin 1mg Tab ORAL SCH (08:56)
[2019-05-08] MEDS: Carvedilol 6.25mg Tab ORAL SCH (08:57)
[2019-05-08] MEDS: Enoxaparin 40mg Inj SUBQ SCH (08:59)
[2019-05-08 12:00] VITALS: BP 108/63
--- NOTE | 2019-05-08 12:00 | NUR ---
NURSE NOTES: The patient is stable without acute distress or shortness of breath. Education provided regarding sputum and urine sample collection. Will continue plan of care.
--- NOTE | 2019-05-08 13:40 | Nephrology Progress Note ---
Assessment/Plan Problem List: (1) Renal failure (2) Obesity, morbid, BMI 50 or higher (3) COPD (chronic obstructive pulmonary disease) (4) Electrolyte imbalance Assessment (1) Hypokalemia (2) CHF (congestive heart failure) (3) Renal failure (4) Obesity, morbid, BMI 50 or higher (5) CO2 retention (6) COPD (chronic obstructive pulmonary disease) elevated Cr likely due to diuresis Obesity , NATASHA AT fib with FVR HTN Congestive heart failure, likely diastolic dysfunction. EF 60% Recurrent NSVT. No syncope. Hypertension. Morbid obesity. COPD. Lipidemia. Plan No labs today stop NSAIDs UA Monitor Cr rising Keep BP in check Monitor lytes check B12 and Folic acid Diamox PO as needed per orders per cardio and pulmonary taper steroids as possible Subjective ROS Limited/Unobtainable: No Constitutional: Reports: malaise Objective Objective Last 24 Hour Vital Signs Date Time Temp Pulse Resp B/P (MAP) Pulse Ox O2 Delivery O2 Flow Rate FiO2 05/08/19 10:28 87 22 96 Nasal Cannula 2.0 28 84 20 92 05/08/19 08:58 101 159/72 05/08/19 08:57 101 159/72 05/08/19 08:00 98.1 101 20 159/72 (101) 97 05/08/19 08:00 97 05/08/19 06:54 90 Nasal Cannula 2.0 28 05/08/19 06:52 98 20 94 Nasal Cannula 2.0 28 88 22 90 05/08/19 04:00 98.2 91 20 151/96 (114) 96 05/08/19 04:00 96 05/08/19 03:00 98.4 05/08/19 00:00 98.4 107 20 150/96 (114) 96 05/08/19 00:00 119 05/07/19 21:00 Nasal Cannula 2.0 05/07/19 21:00 94 149/99 05/07/19 20:00 94 05/07/19 20:00 98.0 94 20 149/99 (116) 96 05/07/19 18:50 93 Nasal Cannula 2.0 28 05/07/19 16:00 98.2 110 22 150/96 (114) 94 05/07/19 16:00 101 Intake and Output 05/07/19 05/08/19 19:00 07:00 Output Total 1200 ml 1000 ml Balance -1200 ml -1000 ml Output Urine Total 1200 ml 1000 ml # Voids 3 Height (Feet): 5 Height (Inches): 10.00 Weight (Pounds): 410 General Appearance: no apparent distress EENT: other - BIPAP Respiratory/Chest: decreased breath sounds Abdomen: other - obese Bebeto Yin MD May 08, 2019 13:40
--- NOTE | 2019-05-08 13:42 | Cardiology Progress Note ---
Assessment/Plan Assessment/Plan 1. Dyspnea, most likely acute on chronic HFnlEF due to combination of HTN, CKD and obesity, there is also element of obesity hypoventilation syndrome, no prior hx of tobacco use. Continue gentle diuresis, metoprolol. 2. Morbid obesity. 3. CKD. 4. DM, consider ASA and atorvastatin. 5. Hx of non-sustained ventricular tachycardia, given normal EF, would like to proceed with B-blockers. Subjective Subjective Sinus rhythm at rate of 87. Objective Last 24 Hour Vital Signs Date Time Temp Pulse Resp B/P (MAP) Pulse Ox O2 Delivery O2 Flow Rate FiO2 05/08/19 10:28 87 22 96 Nasal Cannula 2.0 28 84 20 92 05/08/19 08:58 101 159/72 05/08/19 08:57 101 159/72 05/08/19 08:00 98.1 101 20 159/72 (101) 97 05/08/19 08:00 97 05/08/19 06:54 90 Nasal Cannula 2.0 28 05/08/19 06:52 98 20 94 Nasal Cannula 2.0 28 88 22 90 05/08/19 04:00 98.2 91 20 151/96 (114) 96 05/08/19 04:00 96 05/08/19 03:00 98.4 05/08/19 00:00 98.4 107 20 150/96 (114) 96 05/08/19 00:00 119 05/07/19 21:00 Nasal Cannula 2.0 05/07/19 21:00 94 149/99 05/07/19 20:00 94 05/07/19 20:00 98.0 94 20 149/99 (116) 96 05/07/19 18:50 93 Nasal Cannula 2.0 28 05/07/19 16:00 98.2 110 22 150/96 (114) 94 05/07/19 16:00 101 Intake and Output 05/07/19 05/08/19 19:00 07:00 Output Total 1200 ml 1000 ml Balance -1200 ml -1000 ml Output Urine Total 1200 ml 1000 ml # Voids 3 2D Echo: Normal EF, Mod LVH, Mild LAE, RVSP 37, Grade II LVDD (pseudonormal Physio) Microbiology Date/Time Source Procedure Growth Status 05/05/19 14:50 Blood Blood Culture - Preliminary NO GROWTH AFTER 48 HOURS Resulted 05/05/19 14:15 Blood Blood Culture - Preliminary NO GROWTH AFTER 48 HOURS Resulted Objective HEENT: NC/AT. EOMI. Anicteric, no pallor. Neck: JVP <5 cm, no carotid bruit. Cardiovascular: Regalar, rate and rhythm. Normal S1 and S2. No murmurs, gallops or rubs Resp: Clear to auscultation. Abdomen: Abdomen is soft, nondistended. Nontender, + BS Extremities: No edema, clubbing or cyanosis. Sandor Lawrence MD May 08, 2019 13:41
--- NOTE | 2019-05-08 15:47 | General Progress Note ---
Assessment/Plan Assessment/Plan: S: I am ok O: seems comfortable. Ambulating in the room Physical Exam Vital Signs General Appearance: alert, GCS 15, obese, Chronically Ill Head: normocephalic Eyes: bilateral eye PERRL ENT: TMs + canals normal, uvula midline Neck: full range of motion Respiratory: lungs clear, decreased breath sounds Cardiovascular #1: edema - 3+ Edema Gastrointestinal: normal inspection, normal bowel sounds, non tender Musculoskeletal: normal inspection Neurologic: alert, motor strength/tone normal, occupational therapy technician III-XII nml as tested, oriented x3 Psychiatric: normal inspection Skin: other - Bilateral scaly rash to the lower extremities Labs and Meds: reviewed and reconciled Assessment/Plan: 1- Acute CHF exacerbation - Diastolic 2. Acute COPD (chronic obstructive pulmonary disease) 3. Morbid obesity 4. HTN 5. Multiple joint OA Plan: stool for ob start iron supplement Subjective Allergies: Coded Allergies: RIVAROXABAN (Verified Allergy, Unknown, 04/05/19) Objective Last 24 Hour Vital Signs Date Time Temp Pulse Resp B/P (MAP) Pulse Ox O2 Delivery O2 Flow Rate FiO2 05/08/19 15:29 82 18 96 Facial 30 05/08/19 15:29 88 18 97 Bi-Pap 30 82 18 96 05/08/19 13:00 80 22 96 Facial 30 05/08/19 12:00 109 05/08/19 12:00 97.9 104 20 108/63 (78) 95 05/08/19 10:28 87 22 96 Nasal Cannula 2.0 28 84 20 92 05/08/19 08:58 101 159/72 05/08/19 08:57 101 159/72 05/08/19 08:00 98.1 101 20 159/72 (101) 97 05/08/19 08:00 97 05/08/19 06:54 90 Nasal Cannula 2.0 28 05/08/19 06:52 98 20 94 Nasal Cannula 2.0 28 88 22 90 05/08/19 04:00 98.2 91 20 151/96 (114) 96 05/08/19 04:00 96 05/08/19 03:00 98.4 05/08/19 00:00 98.4 107 20 150/96 (114) 96 05/08/19 00:00 119 05/07/19 21:00 Nasal Cannula 2.0 05/07/19 21:00 94 149/99 05/07/19 20:00 94 05/07/19 20:00 98.0 94 20 149/99 (116) 96 05/07/19 18:50 93 Nasal Cannula 2.0 28 05/07/19 16:00 98.2 110 22 150/96 (114) 94 05/07/19 16:00 101 Intake and Output 05/07/19 05/08/19 19:00 07:00 Output Total 1200 ml 1000 ml Balance -1200 ml -1000 ml Output Urine Total 1200 ml 1000 ml # Voids 3 Height (Feet): 5 Height (Inches): 10.00 Weight (Pounds): 410 Desirae Haro MD May 08, 2019 15:47
[2019-05-08 16:00] VITALS: BP 151/91
--- NOTE | 2019-05-08 16:00 | NUR ---
NURSE NOTES: The patient is stable without acute distress or shortness of breath. Will continue plan of care.
--- NOTE | 2019-05-08 17:03 | Infectious Diseases Prog Note ---
Assessment/Plan Problems: (1) Pneumonia Assessment & Plan: less likely with no fever or productive cough or elevated wbc , will stop cefepime and vancomycin empirically, monitor CXR (2) COPD (chronic obstructive pulmonary disease) Assessment & Plan: Due to the above, continue inhalers, antibiotics , close monitor or CXR (3) Obesity, morbid, BMI 50 or higher Assessment & Plan: recommend diet and exercise (4) Renal failure Assessment & Plan: renally dosed meds as per pharmacy , renal is following Subjective Constitutional: Reports: no symptoms HEENT: Reports: no symptoms Respiratory: Reports: shortness of breath Breasts: Reports: no symptoms Cardiovascular: Reports: no symptoms Gastrointestinal/Abdominal: Reports: no symptoms Genitourinary: Reports: no symptoms Neurologic: Reports: no symptoms Psychiatric: Reports: no symptoms Skin: Reports: no symptoms Endocrine: Reports: no symptoms Hematologic: Reports: no symptoms Musculoskeletal: Reports: no symptoms Allergies: Coded Allergies: RIVAROXABAN (Verified Allergy, Unknown, 04/05/19) Objective Vital Signs Last 24 Hour Vital Signs Date Time Temp Pulse Resp B/P (MAP) Pulse Ox O2 Delivery O2 Flow Rate FiO2 05/08/19 15:29 82 18 96 Facial 30 05/08/19 15:29 88 18 97 Bi-Pap 30 82 18 96 05/08/19 13:00 80 22 96 Facial 30 05/08/19 12:00 109 05/08/19 12:00 97.9 104 20 108/63 (78) 95 05/08/19 10:28 87 22 96 Nasal Cannula 2.0 28 84 20 92 05/08/19 08:58 101 159/72 05/08/19 08:57 101 159/72 05/08/19 08:00 98.1 101 20 159/72 (101) 97 05/08/19 08:00 97 05/08/19 06:54 90 Nasal Cannula 2.0 28 05/08/19 06:52 98 20 94 Nasal Cannula 2.0 28 88 22 90 05/08/19 04:00 98.2 91 20 151/96 (114) 96 05/08/19 04:00 96 05/08/19 03:00 98.4 05/08/19 00:00 98.4 107 20 150/96 (114) 96 05/08/19 00:00 119 05/07/19 21:00 Nasal Cannula 2.0 05/07/19 21:00 94 149/99 05/07/19 20:00 94 05/07/19 20:00 98.0 94 20 149/99 (116) 96 05/07/19 18:50 93 Nasal Cannula 2.0 28 Height (Feet): 5 Height (Inches): 10.00 Weight (Pounds): 410 General Appearance: WD/WN, no acute distress HEENT: normocephalic, atraumatic, anicteric, mucous membranes moist, PERRL, pharynx normal, supple, no JVD Respiratory/Chest: chest wall non-tender, normal breath sounds, no respiratory distress, no accessory muscle use, respiratory distress, decreased breath sounds Cardiovascular: normal peripheral pulses, normal rate, regular rhythm, no gallop/murmur, no JVD Abdomen: normal bowel sounds, soft, non tender, no organomegaly, non distended , no mass, no scars Extremities: no cyanosis, no clubbing Skin: no rash, no lesions, no ulcers Neurologic/Psychiatric: train operator 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 normal, alert, oriented x 3, responsive Lymphatic: no neck adenopathy, no groin adenopathy Musculoskeletal: normal muscle bulk, no effusion Current Medications Medications (Trade) Dose Ordered Sig/David Route PRN Reason Start Time Stop Time Status Last Admin Dose Admin Acetaminophen (Tylenol) 650 mg Q6H PRN ORAL Mild Pain/Temp > 100.5 05/07/19 12:00 06/04/19 11:59 Acetaminophen/ Hydrocodone Bitart ([place] 5/325) 1 tab Q6H PRN ORAL moderate pain 05/07/19 12:00 05/12/19 11:59 Albuterol/ Ipratropium (Albuterol/ Ipratropium) 3 ml Q4HRT HHN 05/07/19 15:00 05/10/19 22:59 05/08/19 15:25 Amlodipine Besylate (Norvasc) 5 mg DAILY ORAL 05/08/19 09:00 06/07/19 08:59 05/08/19 08:58 Aspirin (ASA) 81 mg DAILY ORAL 05/08/19 09:00 06/06/19 08:59 05/08/19 08:56 Atorvastatin Calcium (Lipitor) 40 mg BEDTIME ORAL 05/07/19 21:00 06/04/19 20:59 05/07/19 21:12 Carvedilol (Coreg) 12.5 mg EVERY 12 HOURS ORAL 05/08/19 21:00 06/07/19 20:59 Cefepime HCl 2 gm/ Dextrose 55 ml @ 110 mls/hr EVERY 12 HOURS IVPB 05/07/19 21:00 05/12/19 20:59 05/08/19 08:56 Docusate Sodium (Colace) 100 mg THREE TIMES A DAY ORAL 05/07/19 13:00 06/05/19 12:59 05/08/19 12:45 Doxazosin Mesylate (Cardura) 2 mg DAILY ORAL 05/07/19 19:45 06/06/19 19:44 05/08/19 08:56 Doxycycline Hyclate 100 mg/ Dextrose 110 ml @ 110 mls/hr Q12HR IV 05/07/19 12:00 05/12/19 11:59 05/08/19 08:55 Enoxaparin Sodium (Lovenox) 40 mg DAILY SUBQ 05/08/19 09:00 06/05/19 08:59 05/08/19 08:59 Ferrous Sulfate (Feosol) 325 mg THREE TIMES A DAY ORAL 05/08/19 18:00 06/07/19 17:59 Furosemide (Lasix) 20 mg DAILY IV 05/08/19 09:00 06/07/19 08:59 05/08/19 08:55 Gabapentin (Neurontin) 300 mg THREE TIMES A DAY ORAL 05/07/19 13:00 06/05/19 08:59 05/08/19 12:45 Morphine Sulfate (Morphine Sulfate) 2 mg Q8H PRN IVP Severe Pain (Pain Scale 7-10) 05/07/19 12:00 05/14/19 11:59 05/08/19 12:55 Pantoprazole (Protonix) 40 mg EVERY 12 HOURS ORAL 05/07/19 21:00 06/05/19 20:59 05/08/19 08:58 Potassium Chloride (K-Dur) 40 meq TWICE A DAY ORAL 05/07/19 18:00 06/05/19 10:44 05/08/19 08:57 Cortney Jackson M.D. May 08, 2019 17:02
--- NOTE | 2019-05-08 18:00 | NUR ---
NURSE NOTES: The patient is stable without acute distress or shortness of breath. Education provided regarding sputum, drug screen, UA, and OB stool collection. No sample yet. Will continue plan of care.
--- NOTE | 2019-05-08 19:21 | NUR ---
NURSE NOTES: Received pt from KEESHA Bravo. Pt is awake and resting in bed in no acute distress, on 2L nc. Iv site intact and patent. Bed locked in lowest position, bed alarm on, call light within reach. Will continue with plan of care.
--- NOTE | 2019-05-08 19:47 | Pulmonology Progress Note ---
Assessment/Plan Assessment/Plan Pulmonary Progress Note HPI The patient is a 48-year-old man with history of Obesity, Congestive Heart Failure, Hypertension, Chronic Obstructive Pulmonary Disease admitted with shortness of breath, worsening LE swelling, cough, denies vomiting or diarrhea H/o Afib on AC, h/o NATASHA on BiPAP Improving SOB LE edema LE dupplex negative for DVT Past Medical History: Obesity, Congestive Heart Failure, Chronic Obstructive Pulmonary Disease, Diabetes, Hypertension, NATASHA, Obesity Allergies: RIVAROXABAN All Other Systems: negative except mentioned in HPI Physical Exam Vital Signs Noted General: Awake and alert, no acute distress, obese HEENT: NC/AT. EOMI. tympanic membranes are erythematous, moist mm Cardiovascular: RRR. S1 and S2 normal. No murmur appreciated. Mild edema noted Resp: Normal work of breathing. CTAB Abdomen: Abdomen is soft, nondistended. Nontender Skin: Intact. No abrasions, laceration or rash over the exposed skin Extremities: Normal tone and bulk. Moving all extremities. No obvious deformity. Neuro: Awake and alert. Mentating appropriately. Impression: Congestive heart failure Hypertension Chronic Obstructive Pulmonary Disease Obesity Obstructive Sleep Apnea Hypertension Diabetes Plan - Diuresis PRN - Steroids, wean as tolerated - HHN - O2 PRN - BiPAP PRN/QHS - ISS - PPX - CLERICAL INVESTIGATOR Medications Labs Test 05/05/19 14:15 White Blood Count 7.2 K/UL (4.8-10.8) Red Blood Count 4.47 M/UL (4.70-6.10) Hemoglobin 11.2 G/DL (14.2-18.0) Hematocrit 36.0 % (42.0-52.0) Mean Corpuscular Volume 81 FL (80-99) Mean Corpuscular Hemoglobin 25.0 PG (27.0-31.0) Mean Corpuscular Hemoglobin Concent 31.0 G/DL (32.0-36.0) Red Cell Distribution Width 15.5 % (11.6-14.8) Platelet Count 240 K/UL (150-450) Mean Platelet Volume 8.0 FL (6.5-10.1) Neutrophils (%) (Auto) 68.5 % (45.0-75.0) Lymphocytes (%) (Auto) 17.8 % (20.0-45.0) Monocytes (%) (Auto) 7.6 % (1.0-10.0) Eosinophils (%) (Auto) 5.6 % (0.0-3.0) Basophils (%) (Auto) 0.6 % (0.0-2.0) Prothrombin Time 10.8 SEC (9.30-11.50) Prothromb Time International Ratio 1.0 (0.9-1.1) Activated Partial Thromboplast Time 29 SEC (23-33) D-Dimer 1.25 mg/L FEU (0.00-0.49) Sodium Level 149 MMOL/L (136-145) Potassium Level 3.1 MMOL/L (3.5-5.1) Chloride Level 108 MMOL/L (98-107) Carbon Dioxide Level 40 MMOL/L (21-32) Anion Gap 1 mmol/L (5-15) Blood Urea Nitrogen 12 mg/dL (7-18) Creatinine 1.4 MG/DL (0.55-1.30) Estimat Glomerular Filtration Rate 54.1 mL/min (>60) Glucose Level 116 MG/DL (74-106) Calcium Level 8.1 MG/DL (8.5-10.1) Total Bilirubin 0.5 MG/DL (0.2-1.0) Aspartate Amino Transf (AST/SGOT) 12 U/L (15-37) Alanine Aminotransferase (ALT/SGPT) 18 U/L (12-78) Alkaline Phosphatase 59 U/L (46-116) Pro-B-Type Natriuretic Peptide 1026 pg/mL (0-125) Total Protein 6.0 G/DL (6.4-8.2) Albumin 2.7 G/DL (3.4-5.0) Globulin 3.3 g/dL Albumin/Globulin Ratio 0.8 (1.0-2.7) EKG: Rate: normal Rhythm: NSR ST Segments: other - T inversion 1, aVL unchanged from previous CXR: Worsening congestion, suspect L effusion LE Dupplex: no DVT Subjective ROS Limited/Unobtainable: No Allergies: Coded Allergies: RIVAROXABAN (Verified Allergy, Unknown, 04/05/19) Objective Last 24 Hour Vital Signs Date Time Temp Pulse Resp B/P (MAP) Pulse Ox O2 Delivery O2 Flow Rate FiO2 05/08/19 16:00 110 1/5/20 16:00 98.0 95 20 151/91 (111) 96 05/08/19 15:29 82 18 96 Facial 30 05/08/19 15:29 88 18 97 Bi-Pap 30 82 18 96 05/08/19 13:00 80 22 96 Facial 30 05/08/19 12:00 109 05/08/19 12:00 97.9 104 20 108/63 (78) 95 05/08/19 10:28 87 22 96 Nasal Cannula 2.0 28 84 20 92 05/08/19 09:00 Nasal Cannula 2.0 05/08/19 08:58 101 159/72 05/08/19 08:57 101 159/72 05/08/19 08:00 98.1 101 20 159/72 (101) 97 05/08/19 08:00 97 05/08/19 06:54 90 Nasal Cannula 2.0 28 05/08/19 06:52 98 20 94 Nasal Cannula 2.0 28 88 22 90 05/08/19 04:00 98.2 91 20 151/96 (114) 96 05/08/19 04:00 96 05/08/19 03:00 98.4 05/08/19 00:00 98.4 107 20 150/96 (114) 96 05/08/19 00:00 119 05/07/19 21:00 Nasal Cannula 2.0 05/07/19 21:00 94 149/99 05/07/19 20:00 94 05/07/19 20:00 98.0 94 20 149/99 (116) 96 Intake and Output 05/07/19 05/08/19 19:00 07:00 Output Total 1200 ml 1000 ml Balance -1200 ml -1000 ml Output Urine Total 1200 ml 1000 ml # Voids 3 Current Medications Medications (Trade) Dose Ordered Sig/David Route PRN Reason Start Time Stop Time Status Last Admin Dose Admin Acetaminophen (Tylenol) 650 mg Q6H PRN ORAL Mild Pain/Temp > 100.5 05/07/19 12:00 06/04/19 11:59 Acetaminophen/ Hydrocodone Bitart ([place] 5/325) 1 tab Q6H PRN ORAL moderate pain 05/07/19 12:00 05/12/19 11:59 Albuterol/ Ipratropium (Albuterol/ Ipratropium) 3 ml Q4HRT HHN 05/07/19 15:00 05/10/19 22:59 05/08/19 15:25 Amlodipine Besylate (Norvasc) 5 mg DAILY ORAL 05/08/19 09:00 06/07/19 08:59 05/08/19 08:58 Aspirin (ASA) 81 mg DAILY ORAL 05/08/19 09:00 06/06/19 08:59 05/08/19 08:56 Atorvastatin Calcium (Lipitor) 40 mg BEDTIME ORAL 05/07/19 21:00 06/04/19 20:59 05/07/19 21:12 Carvedilol (Coreg) 12.5 mg EVERY 12 HOURS ORAL 05/08/19 21:00 06/07/19 20:59 Docusate Sodium (Colace) 100 mg THREE TIMES A DAY ORAL 05/07/19 13:00 06/05/19 12:59 05/08/19 17:44 Doxazosin Mesylate (Cardura) 2 mg DAILY ORAL 05/07/19 19:45 06/06/19 19:44 05/08/19 08:56 Enoxaparin Sodium (Lovenox) 40 mg DAILY SUBQ 05/08/19 09:00 06/05/19 08:59 05/08/19 08:59 Ferrous Sulfate (Feosol) 325 mg THREE TIMES A DAY ORAL 05/08/19 18:00 06/07/19 17:59 05/08/19 17:44 Furosemide (Lasix) 20 mg DAILY IV 05/08/19 09:00 06/07/19 08:59 05/08/19 08:55 Gabapentin (Neurontin) 300 mg THREE TIMES A DAY ORAL 05/07/19 13:00 06/05/19 08:59 05/08/19 17:44 Morphine Sulfate (Morphine Sulfate) 2 mg Q8H PRN IVP Severe Pain (Pain Scale 7-10) 05/07/19 12:00 05/14/19 11:59 05/08/19 12:55 Pantoprazole (Protonix) 40 mg EVERY 12 HOURS ORAL 05/07/19 21:00 06/05/19 20:59 05/08/19 08:58 Potassium Chloride (K-Dur) 40 meq TWICE A DAY ORAL 05/07/19 18:00 06/05/19 10:44 05/08/19 17:44 Mahesh Wise MD May 08, 2019 19:47
[2019-05-08 20:00] VITALS: BP 156/112
[2019-05-08 21:15] LABS: APPEARANCE,URINE CLEAR; BILIRUBIN, URINE NEGATIVE (NEGATIVE); COLOR,URINE PALE YELLOW; GLUCOSE, URINE (UA) NEGATIVE (NEGATIVE); KETONES,URINE NEGATIVE (NEGATIVE); LEUKOCYTE ESTERASE ,URINE NEGATIVE (NEGATIVE); NITRITE,URINE NEGATIVE (NEGATIVE); PH,URINE 6 (4.5-8.0); PROTEIN,URINE 1+ (NEGATIVE); UROBILINOGEN,URINE NORMAL MG/DL (0.0-1.0)
[2019-05-08] MEDS: Carvedilol 12.5mg tab ORAL SCH (22:52)
[2019-05-08] MEDS: Atorvastatin 20mg tab ORAL SCH (22:53)
[2019-05-09] VITALS: BP 159/102
[2019-05-09] MEDS: Albuterol/Ipratropium 3ml neb HHN SCH ×5 (03:00→19:00)
[2019-05-09 04:00] VITALS: BP 159/104
--- NOTE | 2019-05-09 07:18 | NUR ---
HAND-OFF: Report given to KEESHA Bravo. Pt is awake and resting in bed in no acute distress. Iv site intact and patent. Bed locked in lowest position, bed alarm on, call light within reach. Endorsed plan of care.
--- NOTE | 2019-05-09 07:20 | NUR ---
NURSE NOTES: Received report from KEESHA Vanegas. The patient is resting on the bed and getting breathing treatment per order. Urine and OB stool collection completed. Sputum collection education provided. The patient's bed in the lowest position, call light in reach, and fall and aspiration precaution reinforced. IV site intact and patent. Will continue plan of care.
[2019-05-09 07:35] LABS: BASOPHILS % (AUTO) 1.2 % (0.0-2.0); EOSINOPHILS % (AUTO) 4.2 % (0.0-3.0); HEMATOCRIT 36.3 % (42.0-52.0); HEMOGLOBIN 11.4 G/DL (14.2-18.0); LYMPHOCYTES % (AUTO) 25.4 % (20.0-45.0); MEAN CORPUSCULAR VOLUME 81 FL (80-99); NEUTROPHILS % (AUTO) 59.2 % (45.0-75.0); PLATELET COUNT 284 K/UL (150-450); RED BLOOD COUNT 4.48 M/UL (4.70-6.10); RED CELL DISTRIBUTION WIDTH 16.2 % (11.6-14.8); WHITE BLOOD COUNT 7.4 K/UL (4.8-10.8)
[2019-05-09 07:46] LABS: ALANINE AMINOTRANSFERASE 17 U/L (12-78); ALBUMIN 2.9 G/DL (3.4-5.0); ALBUMIN/GLOBULIN RATIO 0.8 (1.0-2.7); ALKALINE PHOSPHATASE 63 U/L (46-116); ANION GAP 0 mmol/L (5-15); ASPARTATE AMINO TRANSFERASE 14 U/L (15-37); BILIRUBIN,TOTAL 0.3 MG/DL (0.2-1.0); BLOOD UREA NITROGEN 12 mg/dL (7-18); CALCIUM 8.3 MG/DL (8.5-10.1); CARBON DIOXIDE 37 MMOL/L (21-32); CHLORIDE 108 MMOL/L (98-107); CREATININE 1.2 MG/DL (0.55-1.30); PHOSPHORUS 3.7 MG/DL (2.5-4.9); POTASSIUM 3.9 MMOL/L (3.5-5.1); SODIUM 145 MMOL/L (136-145)
[2019-05-09 08:00] VITALS: BP 155/116
[2019-05-09] MEDS ORDERED: COREG12.5 MG ORAL (09:17)
--- NOTE | 2019-05-09 09:18 | General Progress Note ---
Assessment/Plan Assessment/Plan: S: I am ok O: seems comfortable. Ambulating in the room Physical Exam Vital Signs General Appearance: alert, GCS 15, obese, Chronically Ill Head: normocephalic Eyes: bilateral eye PERRL ENT: TMs + canals normal, uvula midline Neck: full range of motion Respiratory: lungs clear, decreased breath sounds Cardiovascular #1: edema - 3+ Edema Gastrointestinal: normal inspection, normal bowel sounds, non tender Musculoskeletal: normal inspection Neurologic: alert, motor strength/tone normal, sandwich maker III-XII nml as tested, oriented x3 Psychiatric: normal inspection Skin: other - Bilateral scaly rash to the lower extremities Labs and Meds: reviewed and reconciled Assessment/Plan: 1- Acute CHF exacerbation - Diastolic 2. Acute COPD (chronic obstructive pulmonary disease) 3. Morbid obesity 4. HTN 5. Multiple joint OA Plan: stool for ob start iron supplement FU as OP Subjective Allergies: Coded Allergies: RIVAROXABAN (Verified Allergy, Unknown, 04/05/19) Objective Last 24 Hour Vital Signs Date Time Temp Pulse Resp B/P (MAP) Pulse Ox O2 Delivery O2 Flow Rate FiO2 05/09/19 07:52 87 20 98 Nasal Cannula 3.0 32 88 20 97 05/09/19 07:52 97 Nasal Cannula 3.0 32 05/09/19 04:00 85 05/09/19 04:00 98.2 85 20 159/104 (122) 94 05/09/19 03:00 71 18 97 Facial 30 74 17 99 Bi-Pap 30 05/09/19 00:31 79 18 97 Facial 30 05/09/19 00:00 98.7 107 20 159/102 (121) 95 05/09/19 00:00 107 05/08/19 23:26 84 18 96 Nasal Cannula 3.0 32 80 18 91 05/08/19 22:52 103 154/115 05/08/19 21:00 Nasal Cannula 2.0 05/08/19 20:22 91 Nasal Cannula 3.0 32 05/08/19 20:00 98.5 104 20 156/112 (127) 95 05/08/19 20:00 104 05/08/19 16:00 110 05/08/19 16:00 98.0 95 20 151/91 (111) 96 05/08/19 15:29 82 18 96 Facial 30 1/5/20 15:29 88 18 97 Bi-Pap 30 82 18 96 05/08/19 13:00 80 22 96 Facial 30 05/08/19 12:00 109 05/08/19 12:00 97.9 104 20 108/63 (78) 95 05/08/19 10:28 87 22 96 Nasal Cannula 2.0 28 84 20 92 Intake and Output 05/08/19 05/09/19 19:00 07:00 Output Total 400 ml 1000 ml Balance -400 ml -1000 ml Output Urine Total 400 ml 1000 ml # Voids 2 2 # Bowel Movements 2 Laboratory Tests 05/08/19 20:30: Stool Occult Blood [Pending] 05/08/19 20:35: Urine Color Pale yellow, Urine Appearance Clear, Urine pH 6, Urine Specific [place] 1.015, Urine Protein 1+H, Urine Glucose (UA) Negative, Urine Ketones Negative, Urine Blood Negative, Urine Nitrite Negative, Urine Bilirubin Negative , Urine Urobilinogen Normal, Urine Leukocyte Esterase Negative, Urine RBC 0, Urine WBC 0-2, Urine Squamous Epithelial Cells None, Urine Uric Acid Crystals ModerateH, Urine Amorphous Sediment FewH, Urine Bacteria Few, Urine Opiates Screen PositiveH, Urine Barbiturates Screen Negative, Phencyclidine (PCP) Screen Negative, Urine Amphetamines Screen Negative, Urine Benzodiazepines Screen Negative, Urine Cocaine Screen Negative, Urine Marijuana (THC) Screen Negative 05/09/19 06:57: White Blood Count 7.4, Red Blood Count 4.48L, Hemoglobin 11.4L, Hematocrit 36.3L , Mean Corpuscular Volume 81, Mean Corpuscular Hemoglobin 25.4L, Mean Corpuscular Hemoglobin Concent 31.4L, Red Cell Distribution Width 16.2H, Platelet Count 284, Mean Platelet Volume 7.5, Neutrophils (%) (Auto) 59.2, Lymphocytes (%) (Auto) 25.4, Monocytes (%) (Auto) 10.0, Eosinophils (%) (Auto) 4.2H, Basophils (%) (Auto) 1.2, Sodium Level 145, Potassium Level 3.9, Chloride Level 108H, Carbon Dioxide Level 37H, Anion Gap 0L, Blood Urea Nitrogen 12, Creatinine 1.2, Estimat Glomerular Filtration Rate > 60, Glucose Level 109H, Uric Acid 6.0, Calcium Level 8.3L, Phosphorus Level 3.7, Magnesium Level 1.8, Total Bilirubin 0.3, Aspartate Amino Transf (AST/SGOT) 14L, Alanine Aminotransferase (ALT/SGPT) 17, Alkaline Phosphatase 63, Total Protein 6.4, Albumin 2.9L, Globulin 3.5, Albumin/Globulin Ratio 0.8L Height (Feet): 5 Height (Inches): 10.00 Weight (Pounds): 410 Desirae Haro MD May 09, 2019 09:18
--- NOTE | 2019-05-09 09:30 | NUR ---
NURSE NOTES: The patient is stable without acute distress or shortness of breath. The patient is on oxygen therapy per order. Will continue plan of care.
[2019-05-09] MEDS: Doxazosin 1mg Tab ORAL SCH (09:32)
[2019-05-09] MEDS: Docusate 100mg cap ORAL SCH ×3 (09:32→17:28)
[2019-05-09] MEDS: Aspirin Baby 81mg ORAL SCH (09:32)
[2019-05-09] MEDS: Carvedilol 12.5mg tab ORAL SCH (09:33)
[2019-05-09] MEDS: Enoxaparin 40mg Inj SUBQ SCH (09:35)
--- NOTE | 2019-05-09 10:00 | NUR ---
NURSE NOTES: Dr. Haro ordered the patient to be discharged back to home with self care. Discharge medication reconciliation completed by Dr. Haro. As the patient needs home oxygen therapy, c-pap, and walker, asked the patient. Per patient report, the patient has home oxygen, c-pap for sleep apnea, and walker at home. Per patient, he refused to be discharged back to home as the patient feels unsteady in gait. Notified Dr. Haro for further order. Will continue plan of care.
--- NOTE | 2019-05-09 11:00 | Nephrology Progress Note ---
Assessment/Plan Problem List: (1) Renal failure (2) Obesity, morbid, BMI 50 or higher (3) COPD (chronic obstructive pulmonary disease) (4) Electrolyte imbalance Assessment (1) Hypokalemia (2) CHF (congestive heart failure) (3) Renal failure (4) Obesity, morbid, BMI 50 or higher (5) CO2 retention (6) COPD (chronic obstructive pulmonary disease) elevated Cr likely due to diuresis Obesity , NATASHA AT fib with FVR HTN Congestive heart failure, likely diastolic dysfunction. EF 60% Recurrent NSVT. No syncope. Hypertension. Morbid obesity. COPD. Lipidemia. Plan stop NSAIDs UA Monitor Cr rising Keep BP in check Monitor lytes check B12 and Folic acid Diamox PO as needed per orders per cardio and pulmonary taper steroids as possible Subjective ROS Limited/Unobtainable: No Constitutional: Reports: malaise, weakness Objective Objective Last 24 Hour Vital Signs Date Time Temp Pulse Resp B/P (MAP) Pulse Ox O2 Delivery O2 Flow Rate FiO2 05/09/19 09:34 100 155/116 05/09/19 09:33 100 155/116 05/09/19 09:00 Nasal Cannula 2.0 05/09/19 08:00 74 05/09/19 08:00 98.2 100 20 155/116 (129) 95 05/09/19 07:52 87 20 98 Nasal Cannula 3.0 32 88 20 97 05/09/19 07:52 97 Nasal Cannula 3.0 32 05/09/19 04:00 85 05/09/19 04:00 98.2 85 20 159/104 (122) 94 05/09/19 03:00 71 18 97 Facial 30 74 17 99 Bi-Pap 30 05/09/19 00:31 79 18 97 Facial 30 05/09/19 00:00 98.7 107 20 159/102 (121) 95 05/09/19 00:00 107 05/08/19 23:26 84 18 96 Nasal Cannula 3.0 32 80 18 91 05/08/19 22:52 103 154/115 05/08/19 21:00 Nasal Cannula 2.0 05/08/19 20:22 91 Nasal Cannula 3.0 32 05/08/19 20:00 98.5 104 20 156/112 (127) 95 05/08/19 20:00 104 05/08/19 16:00 110 05/08/19 16:00 98.0 95 20 151/91 (111) 96 05/08/19 15:29 82 18 96 Facial 30 05/08/19 15:29 88 18 97 Bi-Pap 30 82 18 96 05/08/19 13:00 80 22 96 Facial 30 05/08/19 12:00 109 05/08/19 12:00 97.9 104 20 108/63 (78) 95 Intake and Output 05/08/19 05/09/19 19:00 07:00 Output Total 400 ml 1000 ml Balance -400 ml -1000 ml Output Urine Total 400 ml 1000 ml # Voids 2 2 # Bowel Movements 2 Laboratory Tests 05/08/19 20:30: Stool Occult Blood Negative 05/08/19 20:35: Urine Color Pale yellow, Urine Appearance Clear, Urine pH 6, Urine Specific [place] 1.015, Urine Protein 1+H, Urine Glucose (UA) Negative, Urine Ketones Negative, Urine Blood Negative, Urine Nitrite Negative, Urine Bilirubin Negative , Urine Urobilinogen Normal, Urine Leukocyte Esterase Negative, Urine RBC 0, Urine WBC 0-2, Urine Squamous Epithelial Cells None, Urine Uric Acid Crystals ModerateH, Urine Amorphous Sediment FewH, Urine Bacteria Few, Urine Opiates Screen PositiveH, Urine Barbiturates Screen Negative, Phencyclidine (PCP) Screen Negative, Urine Amphetamines Screen Negative, Urine Benzodiazepines Screen Negative, Urine Cocaine Screen Negative, Urine Marijuana (THC) Screen Negative 05/09/19 06:57: White Blood Count 7.4, Red Blood Count 4.48L, Hemoglobin 11.4L, Hematocrit 36.3L , Mean Corpuscular Volume 81, Mean Corpuscular Hemoglobin 25.4L, Mean Corpuscular Hemoglobin Concent 31.4L, Red Cell Distribution Width 16.2H, Platelet Count 284, Mean Platelet Volume 7.5, Neutrophils (%) (Auto) 59.2, Lymphocytes (%) (Auto) 25.4, Monocytes (%) (Auto) 10.0, Eosinophils (%) (Auto) 4.2H, Basophils (%) (Auto) 1.2, Sodium Level 145, Potassium Level 3.9, Chloride Level 108H, Carbon Dioxide Level 37H, Anion Gap 0L, Blood Urea Nitrogen 12, Creatinine 1.2, Estimat Glomerular Filtration Rate > 60, Glucose Level 109H, Uric Acid 6.0, Calcium Level 8.3L, Phosphorus Level 3.7, Magnesium Level 1.8, Total Bilirubin 0.3, Aspartate Amino Transf (AST/SGOT) 14L, Alanine Aminotransferase (ALT/SGPT) 17, Alkaline Phosphatase 63, Total Protein 6.4, Albumin 2.9L, Globulin 3.5, Albumin/Globulin Ratio 0.8L Height (Feet): 5 Height (Inches): 10.00 Weight (Pounds): 410 General Appearance: no apparent distress Cardiovascular: tachycardia Respiratory/Chest: decreased breath sounds Abdomen: distended Bebeto Yin MD May 09, 2019 11:00
--- NOTE | 2019-05-09 11:35 | NUR ---
NURSE NOTES: The patient refused to be evaluated by physical therapist. Notified to Dr. Haro. Will continue plan of care until clarification made.
--- NOTE | 2019-05-09 11:35 | NUR ---
PT NOTE Received MD order for PT evaluation. Attempted to see patient for PT evaluation. Patient declining to participate with PT evaluation at this time, states he was up all morning and just got back into bed. Shelly THAO notified, will re-attempt in p.m.
[2019-05-09 12:00] VITALS: BP 156/97
[2019-05-09] MEDS: Morphine Sulfate 2mg/ml Inj(IV/IM USE ONLY) IVP PRN ×2 (12:30→21:05)
--- NOTE | 2019-05-09 13:00 | NUR ---
NURSE NOTES: Physical therapist tried the patient to be evaluated again but refused by the patient. Notified to Dr. Haro. Will continue plan of care until clarification made.
--- NOTE | 2019-05-09 13:40 | NUR ---
PT NOTE Second attempt made to see patient for PT evaluation. Patient declining to participate with PT evaluation at this time, stating "I'm not feeling so good today." Shelly THAO notified, will follow up tomorrow.
--- NOTE | 2019-05-09 14:00 | NUR ---
NURSE NOTES: Notified Dr. Lawrence regarding episode of unsustained A-fib with tachycardia. The patient is asymptomatic. The patient is stable without acute distress or shortness of breath. No new order from Dr. Lawrence. Will continue plan of care.
--- NOTE | 2019-05-09 14:20 | NUR ---
NURSE NOTES: Discuss about the discharge order from Dr. Haro with the patient. Per patient, he does not want to be discharged as the patient has unstable and weak gait. However, the patient does not want to be evaluated by the physical therapist. Notified Dr. Haro. The case reviewer is informed about the patient's refusal of discharge. Will continue plan of care until clarification made.
--- NOTE | 2019-05-09 15:14 | Infectious Diseases Prog Note ---
Assessment/Plan Problems: (1) Pneumonia Assessment & Plan: less likely with no fever or productive cough or elevated wbc , off cefepime and vancomycin empirically, monitor clinically off antibiotics (2) COPD (chronic obstructive pulmonary disease) Assessment & Plan: Due to the above, continue inhalers, antibiotics , close monitor or CXR (3) Obesity, morbid, BMI 50 or higher Assessment & Plan: recommend diet and exercise (4) Renal failure Assessment & Plan: renally dosed meds as per pharmacy , renal is following Subjective Constitutional: Reports: no symptoms HEENT: Reports: no symptoms Respiratory: Reports: no symptoms Breasts: Reports: no symptoms Cardiovascular: Reports: no symptoms Gastrointestinal/Abdominal: Reports: no symptoms Genitourinary: Reports: no symptoms Neurologic: Reports: no symptoms Psychiatric: Reports: no symptoms Skin: Reports: no symptoms Endocrine: Reports: no symptoms Hematologic: Reports: no symptoms Musculoskeletal: Reports: no symptoms Allergies: Coded Allergies: RIVAROXABAN (Verified Allergy, Unknown, 04/05/19) Objective Vital Signs Last 24 Hour Vital Signs Date Time Temp Pulse Resp B/P (MAP) Pulse Ox O2 Delivery O2 Flow Rate FiO2 05/09/19 12:00 98.2 97 20 156/97 (116) 95 05/09/19 12:00 93 05/09/19 09:34 100 155/116 05/09/19 09:33 100 155/116 05/09/19 09:00 Nasal Cannula 2.0 05/09/19 08:00 74 05/09/19 08:00 98.2 100 20 155/116 (129) 95 05/09/19 07:52 87 20 98 Nasal Cannula 3.0 32 88 20 97 05/09/19 07:52 97 Nasal Cannula 3.0 32 05/09/19 04:00 85 05/09/19 04:00 98.2 85 20 159/104 (122) 94 05/09/19 03:00 71 18 97 Facial 30 74 17 99 Bi-Pap 30 05/09/19 00:31 79 18 97 Facial 30 05/09/19 00:00 98.7 107 20 159/102 (121) 95 05/09/19 00:00 107 05/08/19 23:26 84 18 96 Nasal Cannula 3.0 32 80 18 91 05/08/19 22:52 103 154/115 05/08/19 21:00 Nasal Cannula 2.0 05/08/19 20:22 91 Nasal Cannula 3.0 32 05/08/19 20:00 98.5 104 20 156/112 (127) 95 05/08/19 20:00 104 05/08/19 16:00 110 05/08/19 16:00 98.0 95 20 151/91 (111) 96 05/08/19 15:29 82 18 96 Facial 30 05/08/19 15:29 88 18 97 Bi-Pap 30 82 18 96 Height (Feet): 5 Height (Inches): 10.00 Weight (Pounds): 410 General Appearance: WD/WN, no acute distress HEENT: normocephalic, atraumatic, anicteric, mucous membranes moist, PERRL Respiratory/Chest: chest wall non-tender, lungs clear, normal breath sounds, no respiratory distress, no accessory muscle use Cardiovascular: normal peripheral pulses, normal rate, regular rhythm, no gallop/murmur, no JVD Abdomen: normal bowel sounds, soft, non tender, no organomegaly, non distended , no mass, no scars Extremities: no cyanosis, no clubbing Skin: no rash, no lesions Neurologic/Psychiatric: applications processor 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 normal, alert, responsive Lymphatic: no neck adenopathy, no groin adenopathy Musculoskeletal: normal muscle bulk, no effusion Laboratory Tests Test 05/08/19 20:30 05/08/19 20:35 05/09/19 06:57 Stool Occult Blood Negative (NEGATIVE) Urine Color Pale yellow Urine Appearance Clear Urine pH 6 (4.5-8.0) Urine Specific [place] 1.015 (1.005-1.035) Urine Protein 1+ (NEGATIVE) H Urine Glucose (UA) Negative (NEGATIVE) Urine Ketones Negative (NEGATIVE) Urine Blood Negative (NEGATIVE) Urine Nitrite Negative (NEGATIVE) Urine Bilirubin Negative (NEGATIVE) Urine Urobilinogen Normal MG/DL (0.0-1.0) Urine Leukocyte Esterase Negative (NEGATIVE) Urine RBC 0 /HPF (0 - 0) Urine WBC 0-2 /HPF (0 - 0) Urine Squamous Epithelial Cells None /LPF (NONE/OCC) Urine Uric Acid Crystals Moderate /LPF (NONE) H Urine Amorphous Sediment Few /LPF (NONE) H Urine Bacteria Few /HPF (NONE) Urine Opiates Screen Positive (NEGATIVE) H Urine Barbiturates Screen Negative (NEGATIVE) Phencyclidine (PCP) Screen Negative (NEGATIVE) Urine Amphetamines Screen Negative (NEGATIVE) Urine Benzodiazepines Screen Negative (NEGATIVE) Urine Cocaine Screen Negative (NEGATIVE) Urine Marijuana (THC) Screen Negative (NEGATIVE) White Blood Count 7.4 K/UL (4.8-10.8) Red Blood Count 4.48 M/UL (4.70-6.10) L Hemoglobin 11.4 G/DL (14.2-18.0) L Hematocrit 36.3 % (42.0-52.0) L Mean Corpuscular Volume 81 FL (80-99) Mean Corpuscular Hemoglobin 25.4 PG (27.0-31.0) L Mean Corpuscular Hemoglobin Concent 31.4 G/DL (32.0-36.0) L Red Cell Distribution Width 16.2 % (11.6-14.8) H Platelet Count 284 K/UL (150-450) Mean Platelet Volume 7.5 FL (6.5-10.1) Neutrophils (%) (Auto) 59.2 % (45.0-75.0) Lymphocytes (%) (Auto) 25.4 % (20.0-45.0) Monocytes (%) (Auto) 10.0 % (1.0-10.0) Eosinophils (%) (Auto) 4.2 % (0.0-3.0) H Basophils (%) (Auto) 1.2 % (0.0-2.0) Sodium Level 145 MMOL/L (136-145) Potassium Level 3.9 MMOL/L (3.5-5.1) Chloride Level 108 MMOL/L (98-107) H Carbon Dioxide Level 37 MMOL/L (21-32) H Anion Gap 0 mmol/L (5-15) L Blood Urea Nitrogen 12 mg/dL (7-18) Creatinine 1.2 MG/DL (0.55-1.30) Estimat Glomerular Filtration Rate > 60 mL/min (>60) Glucose Level 109 MG/DL (74-106) H Uric Acid 6.0 MG/DL (2.6-7.2) Calcium Level 8.3 MG/DL (8.5-10.1) L Phosphorus Level 3.7 MG/DL (2.5-4.9) Magnesium Level 1.8 MG/DL (1.8-2.4) Total Bilirubin 0.3 MG/DL (0.2-1.0) Aspartate Amino Transf (AST/SGOT) 14 U/L (15-37) L Alanine Aminotransferase (ALT/SGPT) 17 U/L (12-78) Alkaline Phosphatase 63 U/L (46-116) Total Protein 6.4 G/DL (6.4-8.2) Albumin 2.9 G/DL (3.4-5.0) L Globulin 3.5 g/dL Albumin/Globulin Ratio 0.8 (1.0-2.7) L Current Medications Medications (Trade) Dose Ordered Sig/David Route PRN Reason Start Time Stop Time Status Last Admin Dose Admin Acetaminophen (Tylenol) 650 mg Q6H PRN ORAL Mild Pain/Temp > 100.5 05/07/19 12:00 06/04/19 11:59 Acetaminophen/ Hydrocodone Bitart ([place] 5/325) 1 tab Q6H PRN ORAL moderate pain 05/07/19 12:00 05/12/19 11:59 Albuterol/ Ipratropium (Albuterol/ Ipratropium) 3 ml Q4HRT HHN 05/07/19 15:00 05/10/19 22:59 05/09/19 07:55 Amlodipine Besylate (Norvasc) 5 mg DAILY ORAL 05/08/19 09:00 06/07/19 08:59 05/09/19 09:34 Aspirin (ASA) 81 mg DAILY ORAL 05/08/19 09:00 06/06/19 08:59 05/09/19 09:32 Atorvastatin Calcium (Lipitor) 40 mg BEDTIME ORAL 05/07/19 21:00 06/04/19 20:59 05/08/19 22:53 Carvedilol (Coreg) 12.5 mg EVERY 12 HOURS ORAL 05/08/19 21:00 06/07/19 20:59 05/09/19 09:33 Docusate Sodium (Colace) 100 mg THREE TIMES A DAY ORAL 05/07/19 13:00 06/05/19 12:59 05/09/19 12:21 Doxazosin Mesylate (Cardura) 2 mg DAILY ORAL 05/07/19 19:45 06/06/19 19:44 05/09/19 09:32 Enoxaparin Sodium (Lovenox) 40 mg DAILY SUBQ 05/08/19 09:00 06/05/19 08:59 05/09/19 09:35 Ferrous Sulfate (Feosol) 325 mg THREE TIMES A DAY ORAL 05/08/19 18:00 06/07/19 17:59 05/09/19 12:22 Furosemide (Lasix) 20 mg DAILY IV 05/08/19 09:00 06/07/19 08:59 05/09/19 09:32 Gabapentin (Neurontin) 300 mg THREE TIMES A DAY ORAL 05/07/19 13:00 06/05/19 08:59 05/09/19 12:22 Morphine Sulfate (Morphine Sulfate) 2 mg Q8H PRN IVP Severe Pain (Pain Scale 7-10) 05/07/19 12:00 05/14/19 11:59 05/09/19 12:30 Pantoprazole (Protonix) 40 mg EVERY 12 HOURS ORAL 05/07/19 21:00 06/05/19 20:59 05/09/19 09:34 Potassium Chloride (K-Dur) 40 meq TWICE A DAY ORAL 05/07/19 18:00 06/05/19 10:44 05/09/19 09:33 Cortney Jackson M.D. May 09, 2019 15:13
--- NOTE | 2019-05-09 15:30 | NUR ---
NURSE NOTES: Merline from case management department came down and discuss about the discharge order that Dr. Haro ordered. The patient refused to be discharged as he feels weak in health and gait. Notified to Dr. Haro. Will continue plan of care until clarification made.
--- NOTE | 2019-05-09 15:45 | NUR ---
SS note This Sw met with patient to inform there has been a written order by the M.D for discharge today. Patient stating "I just don't feel well, I'm not 100 percent." Patient explains he does not feel he is medically stable for discharge today. Patient is from transitional housing and denied that he does not wish to live there anymore, but also stating that there is a plan in place to move to independent low income housing (has a [employer] assisting with this). Patient appears to show low motivation with discharge at this time. This SW provided strong encouragement for discharge, while patient continues to refuse to leave. Case Management, Nahed dillon.
[2019-05-09 16:00] VITALS: BP 150/106
--- NOTE | 2019-05-09 17:00 | Consultation ---
DATE OF CONSULTATION: 05/06/2019 CARDIOLOGY CONSULTATION CONSULTING PHYSICIAN: Sandor Lawrence M.D. REFERRING PHYSICIAN: Desirae Haro M.D. REASON FOR CONSULTATION: Shortness of breath. HISTORY OF PRESENT ILLNESS: The patient is a very unfortunate 48-year-old gentleman, who presents to the hospital with increased generalized weakness and difficulty breathing. The patient is known to have chronic obstructive pulmonary disease and on home oxygen. The patient also noted progressive worsening of bilateral lower extremity edema. At the time of arrival to this facility, he denies any chest pain. Blood pressure was 109/69 mmHg and heart rate was 73. Coronary artery disease risk factors including hypertension and diabetes mellitus. In the emergency department, initial troponin I level was 0.034; however, brain natriuretic peptide was elevated at 1026. The patient also had elevation of creatinine at 1.4, and potassium of 3.1 as well as sodium of 149. The chest x-ray done on May 05, showed interstitial edema with left pleural effusion. The patient was admitted to telemetry for further evaluation and management. Cardiology consultation was made at the request of Dr. Haro for management of shortness of breath. PAST MEDICAL HISTORY: 1. History of hypertension. 2. COPD. 3. Diabetes mellitus. 4. Also history of diastolic congestive heart failure or heart failure with normal EF. 5. History of nonsustained ventricular tachycardia. 6. History of paroxysmal atrial fibrillation. PAST SURGICAL HISTORY: None. ALLERGIES: Rivaroxaban. MEDICATIONS: List of medication at home includes amlodipine 10 mg p.o. daily, aspirin 81 mg p.o. daily, atorvastatin 40 mg p.o. nightly, furosemide 80 mg p.o. twice daily, and gabapentin 300 mg p.o. twice daily. SOCIAL HISTORY: Denies any tobacco, alcohol, or illicit drug use. REVIEW OF SYSTEMS: HEENT: Denies any headache, diplopia, or blurred vision. CONSTITUTIONAL: Generalized weakness, but no fever or chills. CARDIOVASCULAR: Positive for shortness of breath and lower extremity edema, but no syncope, palpitations, PND, or orthopnea. PULMONARY: Positive for shortness of breath and cough, on home oxygen 2 L/min via nasal cannula. GASTROINTESTINAL: Denies any nausea, vomiting, diarrhea, constipation, abdominal pain, or GI bleed. GENITOURINARY: Denies any hematuria, dysuria, or incontinence. NEUROLOGIC: Denies signs of lateralization or any motor or sensory defect. PHYSICAL EXAMINATION: VITAL SIGNS: At the time of arrival to the hospital, blood pressure was 109/69, respirations 18, pulse of 73, and O2 saturation 95% on room air. GENERAL: The patient is a very unfortunate 48-year-old obese gentleman, chronically ill. HEENT: Atraumatic and normocephalic. Anicteric. Pupils are equal, round, and reactive to light and accommodation. Extraocular muscles intact. NECK: JVP is less than 5 cm. No carotid bruit. Carotid upstrokes 2+ bilaterally. CARDIOVASCULAR: Normal S1, S2. Regular rate and rhythm. No murmurs, gallops, or rubs. PMI is at fourth intercostal space in the midclavicular line. LUNGS: Diminished breath sounds in both lungs. ABDOMEN: Soft, nontender, and nondistended. No hepatosplenomegaly. Positive bowel sounds. EXTREMITIES: There is 2+ bilateral lower extremity edema and scaly rash to the lower extremities. LABORATORY FINDINGS: WBC was 7.2, hemoglobin 11.2, hematocrit of 36.0, and platelet count is 240,000. Sodium 149, potassium 3.1, chloride 108, bicarbonate 40, BUN of 12, creatinine 1.4, glucose 116, and calcium is 8.1. Troponin I was 0.034 and 0.023. ProBNP was 1026. INR was 1.0. A 2D echocardiography showed normal LV systolic function with LVEF of approximately 55%, moderate LVH, mild left atrial enlargement, and grade 1 LV diastolic dysfunction, and RVSP of 37 mmHg consistent with mild pulmonary hypertension. ASSESSMENT AND PLAN: The patient is a very unfortunate 48-year-old gentleman, seen in Cardiology consultation. 1. Shortness of breath. The patient has history of heart failure with normal EF in the previous admission and could not rule out ischemic heart disease as he is morbidly obese and the camera could not accommodate this test. Acute myocardial function is ruled out and there are no signs of ischemia on 12-lead electrocardiogram. He would be continued on gentle diuresis so the renal function would not be compromised. Most likely, because of dyspnea and obesity hypoventilation syndrome, Pulmonary followup is required. 2. History of nonsustained ventricular tachycardia in the past. We would like to consider beta-blockers. 3. History of hypertension. The patient will benefit with a combination of hydralazine and perhaps ARBs once acute renal failure is ruled out. I would like to thank, Dr. Haro, for the courtesy of this consultation. Sandor Lawrence M.D. DR: Jani JOB#: [id number] CC:
--- NOTE | 2019-05-09 18:00 | NUR ---
NURSE NOTES: The patient is stable without acute distress or shortness of breath. Will continue plan of care.
--- NOTE | 2019-05-09 19:10 | NUR ---
NURSE NOTES: Received pt and report from KEESHA Bravo. Observed pt resting in bed with both eyes open and watching television. Pt is A/Ox4. pvc monitor is in placed; pt is currently A. Fib, HR 120. IV site intact, asymptomatic, and patent. Bed is in the lowest position and locked. Call light and bedside table is within reach. No signs/symptoms of acute distress noted at this time. Will continue plan of care.
--- NOTE | 2019-05-09 19:20 | NUR ---
HAND-OFF: Report given to KEESHA Hernandez. The patient is resting on the bed without acute distress or shortness of breath. The patient's bed in the lowest position, call light in reach, and fall and aspiration precaution reinforced. IV site intact and patent. Oxygen therapy per order. Dr. Lawrence ordered medication and stat EKG for change of rhythm. Endorsed plan of care.
[2019-05-09 20:00] VITALS: BP 120/73
[2019-05-09] MEDS ORDERED: Digoxin 0.5mg/2ml Inj IVP SCH (20:00)
--- NOTE | 2019-05-09 20:14 | Pulmonology Progress Note ---
Assessment/Plan Assessment/Plan Congestive heart failure Hypertension Chronic Obstructive Pulmonary Disease Obesity Obstructive Sleep Apnea Hypertension Diabetes Plan - Diuresis PRN - monitor off steroids - HHN - O2 PRN - BiPAP PRN/QHS - ISS - PPX -d/c planning Subjective ROS Limited/Unobtainable: Yes Interval Events: Refusing discharge it seems. Currently sleeping, snoring. Allergies: Coded Allergies: RIVAROXABAN (Verified Allergy, Unknown, 04/05/19) Objective Last 24 Hour Vital Signs Date Time Temp Pulse Resp B/P (MAP) Pulse Ox O2 Delivery O2 Flow Rate FiO2 05/09/19 16:10 75 20 97 Nasal Cannula 3.0 32 70 20 95 05/09/19 16:00 98.2 117 20 150/106 (121) 95 05/09/19 16:00 124 05/09/19 12:00 98.2 97 20 156/97 (116) 95 05/09/19 12:00 93 05/09/19 09:34 100 155/116 05/09/19 09:33 100 155/116 05/09/19 09:00 Nasal Cannula 2.0 05/09/19 08:00 74 05/09/19 08:00 98.2 100 20 155/116 (129) 95 05/09/19 07:52 87 20 98 Nasal Cannula 3.0 32 88 20 97 05/09/19 07:52 97 Nasal Cannula 3.0 32 05/09/19 04:00 85 05/09/19 04:00 98.2 85 20 159/104 (122) 94 05/09/19 03:00 71 18 97 Facial 30 74 17 99 Bi-Pap 30 05/09/19 00:31 79 18 97 Facial 30 05/09/19 00:00 98.7 107 20 159/102 (121) 95 05/09/19 00:00 107 05/08/19 23:26 84 18 96 Nasal Cannula 3.0 32 80 18 91 05/08/19 22:52 103 154/115 05/08/19 21:00 Nasal Cannula 2.0 05/08/19 20:22 91 Nasal Cannula 3.0 32 Intake and Output 05/08/19 05/09/19 19:00 07:00 Output Total 400 ml 1000 ml Balance -400 ml -1000 ml Output Urine Total 400 ml 1000 ml # Voids 2 2 # Bowel Movements 2 General Appearance: no acute distress HEENT: atraumatic, mucous membranes moist Respiratory/Chest: normal breath sounds Cardiovascular: normal rate, regular rhythm Abdomen: soft, non tender Extremities: no edema Laboratory Tests 05/08/19 20:30: Stool Occult Blood Negative 05/08/19 20:35: Urine Color Pale yellow, Urine Appearance Clear, Urine pH 6, Urine Specific [place] 1.015, Urine Protein 1+H, Urine Glucose (UA) Negative, Urine Ketones Negative, Urine Blood Negative, Urine Nitrite Negative, Urine Bilirubin Negative , Urine Urobilinogen Normal, Urine Leukocyte Esterase Negative, Urine RBC 0, Urine WBC 0-2, Urine Squamous Epithelial Cells None, Urine Uric Acid Crystals ModerateH, Urine Amorphous Sediment FewH, Urine Bacteria Few, Urine Opiates Screen PositiveH, Urine Barbiturates Screen Negative, Phencyclidine (PCP) Screen Negative, Urine Amphetamines Screen Negative, Urine Benzodiazepines Screen Negative, Urine Cocaine Screen Negative, Urine Marijuana (THC) Screen Negative 05/09/19 06:57: White Blood Count 7.4, Red Blood Count 4.48L, Hemoglobin 11.4L, Hematocrit 36.3L , Mean Corpuscular Volume 81, Mean Corpuscular Hemoglobin 25.4L, Mean Corpuscular Hemoglobin Concent 31.4L, Red Cell Distribution Width 16.2H, Platelet Count 284, Mean Platelet Volume 7.5, Neutrophils (%) (Auto) 59.2, Lymphocytes (%) (Auto) 25.4, Monocytes (%) (Auto) 10.0, Eosinophils (%) (Auto) 4.2H, Basophils (%) (Auto) 1.2, Sodium Level 145, Potassium Level 3.9, Chloride Level 108H, Carbon Dioxide Level 37H, Anion Gap 0L, Blood Urea Nitrogen 12, Creatinine 1.2, Estimat Glomerular Filtration Rate > 60, Glucose Level 109H, Uric Acid 6.0, Calcium Level 8.3L, Phosphorus Level 3.7, Magnesium Level 1.8, Total Bilirubin 0.3, Aspartate Amino Transf (AST/SGOT) 14L, Alanine Aminotransferase (ALT/SGPT) 17, Alkaline Phosphatase 63, Total Protein 6.4, Albumin 2.9L, Globulin 3.5, Albumin/Globulin Ratio 0.8L Current Medications Medications (Trade) Dose Ordered Sig/David Route PRN Reason Start Time Stop Time Status Last Admin Dose Admin Acetaminophen (Tylenol) 650 mg Q6H PRN ORAL Mild Pain/Temp > 100.5 05/07/19 12:00 06/04/19 11:59 Acetaminophen/ Hydrocodone Bitart ([place] 5/325) 1 tab Q6H PRN ORAL moderate pain 05/07/19 12:00 05/12/19 11:59 Albuterol/ Ipratropium (Albuterol/ Ipratropium) 3 ml Q4HRT HHN 05/07/19 15:00 05/10/19 22:59 05/09/19 15:00 Amlodipine Besylate (Norvasc) 5 mg DAILY ORAL 05/08/19 09:00 06/07/19 08:59 05/09/19 09:34 Aspirin (ASA) 81 mg DAILY ORAL 05/08/19 09:00 06/06/19 08:59 05/09/19 09:32 Atorvastatin Calcium (Lipitor) 40 mg BEDTIME ORAL 05/07/19 21:00 06/04/19 20:59 05/08/19 22:53 Carvedilol (Coreg) 25 mg Q12HR ORAL 05/09/19 21:00 06/08/19 20:59 Digoxin (Lanoxin) 0.125 mg DAILY ORAL 05/10/19 09:00 06/09/19 08:59 Digoxin (Lanoxin) 0.5 mg ONCE IVP 05/09/19 20:00 05/09/19 21:00 Docusate Sodium (Colace) 100 mg THREE TIMES A DAY ORAL 05/07/19 13:00 06/05/19 12:59 05/09/19 17:28 Doxazosin Mesylate (Cardura) 2 mg DAILY ORAL 05/07/19 19:45 06/06/19 19:44 05/09/19 09:32 Enoxaparin Sodium (Lovenox) 40 mg DAILY SUBQ 05/08/19 09:00 06/05/19 08:59 05/09/19 09:35 Ferrous Sulfate (Feosol) 325 mg THREE TIMES A DAY ORAL 05/08/19 18:00 06/07/19 17:59 05/09/19 17:28 Furosemide (Lasix) 20 mg DAILY IV 05/08/19 09:00 06/07/19 08:59 05/09/19 09:32 Gabapentin (Neurontin) 300 mg THREE TIMES A DAY ORAL 05/07/19 13:00 06/05/19 08:59 05/09/19 17:28 Morphine Sulfate (Morphine Sulfate) 2 mg Q8H PRN IVP Severe Pain (Pain Scale 7-10) 05/07/19 12:00 05/14/19 11:59 05/09/19 12:30 Pantoprazole (Protonix) 40 mg EVERY 12 HOURS ORAL 05/07/19 21:00 06/05/19 20:59 05/09/19 09:34 Potassium Chloride (K-Dur) 40 meq TWICE A DAY ORAL 05/07/19 18:00 06/05/19 10:44 05/09/19 17:28 Jass Hartman MD May 09, 2019 20:14
--- NOTE | 2019-05-09 21:01 | NUR ---
NURSE NOTES: Administered Digoxin 0.5mg IVP once. Pt converted from A. Fib to NSR; HR 96.
[2019-05-09] MEDS: Carvedilol 25mg Tab ORAL SCH (21:20)
[2019-05-09] MEDS: Atorvastatin 20mg tab ORAL SCH (21:20)
--- NOTE | 2019-05-09 22:21 | Cardiology Progress Note ---
Assessment/Plan Assessment/Plan 1. Dyspnea, most likely acute on chronic HFnlEF due to combination of HTN, CKD and obesity, there is also element of obesity hypoventilation syndrome, no prior hx of tobacco use. Continue gentle diuresis, metoprolol. 2. Morbid obesity. 3. CKD. 4. DM, consider ASA and atorvastatin. 5. Hx of non-sustained ventricular tachycardia, given normal EF, would like to proceed with B-blockers. Subjective Subjective Sinus rhythm at rate of 87. Objective Last 24 Hour Vital Signs Date Time Temp Pulse Resp B/P (MAP) Pulse Ox O2 Delivery O2 Flow Rate FiO2 05/09/19 21:20 82 151/87 05/09/19 21:00 Nasal Cannula 2.0 05/09/19 20:13 97 Nasal Cannula 2.0 28 05/09/19 20:12 120 05/09/19 20:00 97.7 116 19 120/73 (89) 94 05/09/19 16:10 75 20 97 Nasal Cannula 3.0 32 70 20 95 05/09/19 16:00 98.2 117 20 150/106 (121) 95 05/09/19 16:00 124 05/09/19 12:00 98.2 97 20 156/97 (116) 95 05/09/19 12:00 93 05/09/19 09:34 100 155/116 05/09/19 09:33 100 155/116 05/09/19 09:00 Nasal Cannula 2.0 05/09/19 08:00 74 05/09/19 08:00 98.2 100 20 155/116 (129) 95 05/09/19 07:52 87 20 98 Nasal Cannula 3.0 32 88 20 97 05/09/19 07:52 97 Nasal Cannula 3.0 32 05/09/19 04:00 85 05/09/19 04:00 98.2 85 20 159/104 (122) 94 05/09/19 03:00 71 18 97 Facial 30 74 17 99 Bi-Pap 30 05/09/19 00:31 79 18 97 Facial 30 05/09/19 00:00 98.7 107 20 159/102 (121) 95 05/09/19 00:00 107 05/08/19 23:26 84 18 96 Nasal Cannula 3.0 32 80 18 91 05/08/19 22:52 103 154/115 Intake and Output 05/08/19 05/09/19 19:00 07:00 Output Total 400 ml 1000 ml Balance -400 ml -1000 ml Output Urine Total 400 ml 1000 ml # Voids 2 2 # Bowel Movements 2 Laboratory Tests Test 05/09/19 06:57 White Blood Count 7.4 K/UL (4.8-10.8) Red Blood Count 4.48 M/UL (4.70-6.10) L Hemoglobin 11.4 G/DL (14.2-18.0) L Hematocrit 36.3 % (42.0-52.0) L Mean Corpuscular Volume 81 FL (80-99) Mean Corpuscular Hemoglobin 25.4 PG (27.0-31.0) L Mean Corpuscular Hemoglobin Concent 31.4 G/DL (32.0-36.0) L Red Cell Distribution Width 16.2 % (11.6-14.8) H Platelet Count 284 K/UL (150-450) Mean Platelet Volume 7.5 FL (6.5-10.1) Neutrophils (%) (Auto) 59.2 % (45.0-75.0) Lymphocytes (%) (Auto) 25.4 % (20.0-45.0) Monocytes (%) (Auto) 10.0 % (1.0-10.0) Eosinophils (%) (Auto) 4.2 % (0.0-3.0) H Basophils (%) (Auto) 1.2 % (0.0-2.0) Sodium Level 145 MMOL/L (136-145) Potassium Level 3.9 MMOL/L (3.5-5.1) Chloride Level 108 MMOL/L (98-107) H Carbon Dioxide Level 37 MMOL/L (21-32) H Anion Gap 0 mmol/L (5-15) L Blood Urea Nitrogen 12 mg/dL (7-18) Creatinine 1.2 MG/DL (0.55-1.30) Estimat Glomerular Filtration Rate > 60 mL/min (>60) Glucose Level 109 MG/DL (74-106) H Uric Acid 6.0 MG/DL (2.6-7.2) Calcium Level 8.3 MG/DL (8.5-10.1) L Phosphorus Level 3.7 MG/DL (2.5-4.9) Magnesium Level 1.8 MG/DL (1.8-2.4) Total Bilirubin 0.3 MG/DL (0.2-1.0) Aspartate Amino Transf (AST/SGOT) 14 U/L (15-37) L Alanine Aminotransferase (ALT/SGPT) 17 U/L (12-78) Alkaline Phosphatase 63 U/L (46-116) Total Protein 6.4 G/DL (6.4-8.2) Albumin 2.9 G/DL (3.4-5.0) L Globulin 3.5 g/dL Albumin/Globulin Ratio 0.8 (1.0-2.7) L Objective HEENT: NC/AT. EOMI. Anicteric, no pallor. Neck: JVP <5 cm, no carotid bruit. Cardiovascular: Regalar, rate and rhythm. Normal S1 and S2. No murmurs, gallops or rubs Resp: Clear to auscultation. Abdomen: Abdomen is soft, nondistended. Nontender, + BS Extremities: No edema, clubbing or cyanosis. Sandor Lawrence MD May 09, 2019 22:21
--- NOTE | 2019-05-09 23:19 | Cardiology Progress Note ---
Assessment/Plan Assessment/Plan 1. New onset atrial fibrillation, digoxin 0.5mg IVP times one dose, increase carvedilol to 25mg bid. Start Eliquis in face of CHADS-VASC score of 2. 2. Dyspnea, most likely acute on chronic HFnlEF due to combination of HTN, CKD and obesity, there is also element of obesity hypoventilation syndrome, no prior hx of tobacco use. Continue gentle diuresis, metoprolol. 2. Morbid obesity. 3. CKD, creat down to 1.2, continue lasix at the current dose. 4. DM, continue atorvastatin. 5. Hx of non-sustained ventricular tachycardia, given normal EF, would like to proceed with B-blockers. 6. HTN, continue low dose amlodipine, cardura, start Irbesartan. Subjective Subjective Converted to atrial fibrillation with RVR as high as 150. Objective Last 24 Hour Vital Signs Date Time Temp Pulse Resp B/P (MAP) Pulse Ox O2 Delivery O2 Flow Rate FiO2 05/09/19 21:20 82 151/87 05/09/19 21:00 Nasal Cannula 2.0 05/09/19 20:13 97 Nasal Cannula 2.0 28 05/09/19 20:12 120 05/09/19 20:00 97.7 116 19 120/73 (89) 94 05/09/19 16:10 75 20 97 Nasal Cannula 3.0 32 70 20 95 05/09/19 16:00 98.2 117 20 150/106 (121) 95 05/09/19 16:00 124 05/09/19 12:00 98.2 97 20 156/97 (116) 95 05/09/19 12:00 93 05/09/19 09:34 100 155/116 05/09/19 09:33 100 155/116 05/09/19 09:00 Nasal Cannula 2.0 05/09/19 08:00 74 05/09/19 08:00 98.2 100 20 155/116 (129) 95 05/09/19 07:52 87 20 98 Nasal Cannula 3.0 32 88 20 97 05/09/19 07:52 97 Nasal Cannula 3.0 32 05/09/19 04:00 85 05/09/19 04:00 98.2 85 20 159/104 (122) 94 05/09/19 03:00 71 18 97 Facial 30 74 17 99 Bi-Pap 30 1/6/20 00:31 79 18 97 Facial 30 05/09/19 00:00 98.7 107 20 159/102 (121) 95 05/09/19 00:00 107 05/08/19 23:26 84 18 96 Nasal Cannula 3.0 32 80 18 91 Intake and Output 05/08/19 05/09/19 19:00 07:00 Output Total 400 ml 1000 ml Balance -400 ml -1000 ml Output Urine Total 400 ml 1000 ml # Voids 2 2 # Bowel Movements 2 2D Echo: Normal EF, Mod LVH, Mild LAE, RVSP 37, Grade II LVDD (pseudonormal Physio) Laboratory Tests Test 05/09/19 06:57 White Blood Count 7.4 K/UL (4.8-10.8) Red Blood Count 4.48 M/UL (4.70-6.10) L Hemoglobin 11.4 G/DL (14.2-18.0) L Hematocrit 36.3 % (42.0-52.0) L Mean Corpuscular Volume 81 FL (80-99) Mean Corpuscular Hemoglobin 25.4 PG (27.0-31.0) L Mean Corpuscular Hemoglobin Concent 31.4 G/DL (32.0-36.0) L Red Cell Distribution Width 16.2 % (11.6-14.8) H Platelet Count 284 K/UL (150-450) Mean Platelet Volume 7.5 FL (6.5-10.1) Neutrophils (%) (Auto) 59.2 % (45.0-75.0) Lymphocytes (%) (Auto) 25.4 % (20.0-45.0) Monocytes (%) (Auto) 10.0 % (1.0-10.0) Eosinophils (%) (Auto) 4.2 % (0.0-3.0) H Basophils (%) (Auto) 1.2 % (0.0-2.0) Sodium Level 145 MMOL/L (136-145) Potassium Level 3.9 MMOL/L (3.5-5.1) Chloride Level 108 MMOL/L (98-107) H Carbon Dioxide Level 37 MMOL/L (21-32) H Anion Gap 0 mmol/L (5-15) L Blood Urea Nitrogen 12 mg/dL (7-18) Creatinine 1.2 MG/DL (0.55-1.30) Estimat Glomerular Filtration Rate > 60 mL/min (>60) Glucose Level 109 MG/DL (74-106) H Uric Acid 6.0 MG/DL (2.6-7.2) Calcium Level 8.3 MG/DL (8.5-10.1) L Phosphorus Level 3.7 MG/DL (2.5-4.9) Magnesium Level 1.8 MG/DL (1.8-2.4) Total Bilirubin 0.3 MG/DL (0.2-1.0) Aspartate Amino Transf (AST/SGOT) 14 U/L (15-37) L Alanine Aminotransferase (ALT/SGPT) 17 U/L (12-78) Alkaline Phosphatase 63 U/L (46-116) Total Protein 6.4 G/DL (6.4-8.2) Albumin 2.9 G/DL (3.4-5.0) L Globulin 3.5 g/dL Albumin/Globulin Ratio 0.8 (1.0-2.7) L Objective HEENT: NC/AT. EOMI. Anicteric, no pallor. + obesity Neck: JVP <5 cm, no carotid bruit. Cardiovascular: Irregularly irregular rhythm, Normal S1 and S2. No murmurs, gallops or rubs Resp: Diminished BS both lungs. Abdomen: Abdomen is soft, nondistended. Nontender, + BS Extremities: No edema, clubbing or cyanosis. Sandor Lawrence MD May 09, 2019 23:19
[2019-05-09] MEDS: Eliquis 5mg tablet ORAL SCH (23:49)
[2019-05-10] VITALS (7 sets, daily range): BP systolic 129–171; BP diastolic 73–109
[2019-05-10] MEDS: Albuterol/Ipratropium 3ml neb HHN SCH ×6 (00:18→19:17)
[2019-05-10] MEDS: Morphine Sulfate 2mg/ml Inj(IV/IM USE ONLY) IVP PRN ×2 (05:54→16:37)
--- NOTE | 2019-05-10 07:20 | NUR ---
NURSE NOTES: Received report from KEESHA Hernandez. The patient is resting on the bed without acute distress or shortness of breath. The patient's bed in the lowest position, call light in reach, and fall and aspiration precaution reinforced. IV site intact and patent. Per Dr. Lawrence, the patient's discharge order should be on hold due to digoxin IVP last night related to A fib with RVR. Notified to Dr. Haro regarding the case. Will continue plan of care.
--- NOTE | 2019-05-10 07:24 | NUR ---
HAND-OFF: Report given to KEESHA Bravo. Plan of care endorsed.
[2019-05-10] MEDS: Docusate 100mg cap ORAL SCH ×3 (08:59→17:26)
[2019-05-10] MEDS: Eliquis 5mg tablet ORAL SCH ×2 (08:59→17:26)
[2019-05-10] MEDS: Carvedilol 25mg Tab ORAL SCH ×2 (08:59→22:00)
[2019-05-10] MEDS: Doxazosin 1mg Tab ORAL SCH (08:59)
[2019-05-10] MEDS: Digoxin 0.125mg tab ORAL SCH (09:00)
--- NOTE | 2019-05-10 10:05 | NUR ---
PT NOTE Attempted to see patient for PT evaluation. Patient declining to participate with PT evaluation stating "I don't feel like walking right now." Shelly THAO notified, will re-attempt later as schedule permits.
--- NOTE | 2019-05-10 10:47 | Pulmonology Progress Note ---
Assessment/Plan Assessment/Plan Congestive heart failure Hypertension Chronic Obstructive Pulmonary Disease Obesity Obstructive Sleep Apnea Hypertension Diabetes Plan - Diuresis PRN - monitor off steroids - HHN - O2 PRN - noninvasive ventilation PRN/QHS -check ABG - ISS - PPX -d/c planning Subjective ROS Limited/Unobtainable: No Interval Events: States using noninvasive ventilation. Converted to NSR overnight. no sob Allergies: Coded Allergies: RIVAROXABAN (Verified Allergy, Unknown, 04/05/19) Objective Last 24 Hour Vital Signs Date Time Temp Pulse Resp B/P (MAP) Pulse Ox O2 Delivery O2 Flow Rate FiO2 05/10/19 09:01 75 171/107 05/10/19 09:00 75 05/10/19 08:59 171/107 05/10/19 08:59 75 171/107 05/10/19 07:50 94 Nasal Cannula 2.0 28 05/10/19 07:50 78 22 94 Nasal Cannula 3.0 32 75 22 94 05/10/19 04:00 76 05/10/19 04:00 98.0 71 19 144/73 (96) 92 05/10/19 03:20 72 21 97 Facial 30 05/10/19 00:34 75 26 95 Facial 30 05/10/19 00:18 79 18 98 Nasal Cannula 3.0 32 77 20 94 05/10/19 00:00 96 05/10/19 00:00 98.1 73 20 136/104 (115) 97 05/09/19 21:20 82 151/87 05/09/19 21:00 Nasal Cannula 2.0 05/09/19 20:13 97 Nasal Cannula 2.0 28 05/09/19 20:12 120 05/09/19 20:00 97.7 116 19 120/73 (89) 94 05/09/19 20:00 135 05/09/19 16:10 75 20 97 Nasal Cannula 3.0 32 70 20 95 05/09/19 16:00 98.2 117 20 150/106 (121) 95 05/09/19 16:00 124 05/09/19 12:00 98.2 97 20 156/97 (116) 95 05/09/19 12:00 93 Intake and Output 05/09/19 05/10/19 19:00 07:00 Intake Total 1360 ml Output Total 2000 ml 1100 ml Balance -640 ml -1100 ml Intake Oral 1360 ml Output Urine Total 2000 ml 1100 ml # Bowel Movements 2 1 General Appearance: no acute distress HEENT: atraumatic, mucous membranes moist Respiratory/Chest: crackles/rales Cardiovascular: edema Abdomen: non distended Extremities: no cyanosis, no clubbing 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 Laboratory Tests 05/10/19 06:06: Digoxin Level 0.4L Current Medications Medications (Trade) Dose Ordered Sig/David Route PRN Reason Start Time Stop Time Status Last Admin Dose Admin Acetaminophen (Tylenol) 650 mg Q6H PRN ORAL Mild Pain/Temp > 100.5 05/07/19 12:00 06/04/19 11:59 Acetaminophen/ Hydrocodone Bitart ([place] 5/325) 1 tab Q6H PRN ORAL moderate pain 05/07/19 12:00 05/12/19 11:59 Albuterol/ Ipratropium (Albuterol/ Ipratropium) 3 ml Q4HRT HHN 05/07/19 15:00 05/10/19 22:59 05/10/19 07:50 Amlodipine Besylate (Norvasc) 2.5 mg DAILY ORAL 05/10/19 09:00 06/09/19 08:59 05/10/19 09:01 Apixaban (Eliquis) 5 mg BID ORAL 05/09/19 23:15 06/08/19 23:14 05/10/19 08:59 Atorvastatin Calcium (Lipitor) 40 mg BEDTIME ORAL 05/07/19 21:00 06/04/19 20:59 05/09/19 21:20 Carvedilol (Coreg) 25 mg Q12HR ORAL 05/09/19 21:00 06/08/19 20:59 05/10/19 08:59 Digoxin (Lanoxin) 0.125 mg DAILY ORAL 05/10/19 09:00 06/09/19 08:59 05/10/19 09:00 Docusate Sodium (Colace) 100 mg THREE TIMES A DAY ORAL 05/07/19 13:00 06/05/19 12:59 05/10/19 08:59 Doxazosin Mesylate (Cardura) 2 mg DAILY ORAL 05/07/19 19:45 06/06/19 19:44 05/10/19 08:59 Ferrous Sulfate (Feosol) 325 mg THREE TIMES A DAY ORAL 05/08/19 18:00 06/07/19 17:59 05/10/19 09:00 Furosemide (Lasix) 20 mg DAILY IV 05/08/19 09:00 06/07/19 08:59 05/10/19 08:58 Gabapentin (Neurontin) 300 mg THREE TIMES A DAY ORAL 05/07/19 13:00 06/05/19 08:59 05/10/19 09:00 Irbesartan (Avapro) 75 mg DAILY ORAL 05/10/19 09:00 06/09/19 08:59 05/10/19 08:59 Morphine Sulfate (Morphine Sulfate) 2 mg Q8H PRN IVP Severe Pain (Pain Scale 7-10) 05/07/19 12:00 05/14/19 11:59 05/10/19 05:54 Pantoprazole (Protonix) 40 mg EVERY 12 HOURS ORAL 05/07/19 21:00 06/05/19 20:59 05/10/19 09:01 Potassium Chloride (K-Dur) 40 meq TWICE A DAY ORAL 05/07/19 18:00 06/05/19 10:44 05/10/19 09:00 Jass Hartman MD May 10, 2019 10:47
--- NOTE | 2019-05-10 10:50 | NUR ---
CASE MANAGEMENT:REVIEW 05/10/19 SI: EPISODE OF AFIB LAST NIGHT WITH HEART RATE TO 144 IS: IVP DIGOXIN. : TELEMETRY 05/10/19 SI: AC/CHR CHF. ACUTE COPD 98.0 75 22 171/107 94% ON 2L/NC IS: DIGOXIN PO QD AVAPRO PO QD NORVASC PO QD ELIQUIS PO BID COREG PO Q12 (DOSE DOUBLED) IV LASIX QD CARDURA PO QD K-DUR PO BID DUONEB HHN Q4HRS RTC IV MORPHINE Q8HRS PRN : TELEMETRY STATUS
--- NOTE | 2019-05-10 11:30 | NUR ---
NURSE NOTES: The patient is stable without acute distress or shortness of breath. Will continue plan of care.
--- NOTE | 2019-05-10 11:31 | NUR ---
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
--- NOTE | 2019-05-10 11:40 | NUR ---
PT EVALUATION NOTE Patient seen for initial evaluation. Patient presents with generalized weakness and pain which affects patient's ability to perform mobility tasks safely. Patient requires SBA/CGA for transfers and ambulation with FWW. Patient able to ambulate 20 ft with FWW with slow velocity, limited by pain. Patient will benefit from skilled inpatient PT intervention to address strength, balance and safety for improved level of functional mobility. Recommend discharge home once medically cleared by MD. Patient appears to have necessary DME at home. Addendum: 05/10/19 at 1224 by MARY GRACE SORENSEN PT Amended: Links added.
--- NOTE | 2019-05-10 12:00 | NUR ---
NURSE NOTES: Paged Dr. Lawrence regarding elevated blood pressure even with morning blood pressure medication. No new order yet. The patient is stable without acute distress or shortness of breath. Will continue plan of care.
--- NOTE | 2019-05-10 12:27 | Nephrology Progress Note ---
Assessment/Plan Problem List: (1) Renal failure (2) Obesity, morbid, BMI 50 or higher (3) COPD (chronic obstructive pulmonary disease) (4) Electrolyte imbalance Assessment (1) Hypokalemia (2) CHF (congestive heart failure) (3) Renal failure (4) Obesity, morbid, BMI 50 or higher (5) CO2 retention (6) COPD (chronic obstructive pulmonary disease) elevated Cr likely due to diuresis Obesity , NATASHA AT fib with FVR HTN Congestive heart failure, likely diastolic dysfunction. EF 60% Recurrent NSVT. No syncope. Hypertension. Morbid obesity. COPD. Lipidemia. Plan stop NSAIDs UA Monitor Cr rising Keep BP in check Monitor lytes check B12 and Folic acid Diamox PO as needed per orders per cardio and pulmonary taper steroids as possible Subjective ROS Limited/Unobtainable: No Constitutional: Reports: malaise Objective Objective Last 24 Hour Vital Signs Date Time Temp Pulse Resp B/P (MAP) Pulse Ox O2 Delivery O2 Flow Rate FiO2 05/10/19 09:01 75 171/107 05/10/19 09:00 Nasal Cannula 2.0 05/10/19 09:00 75 05/10/19 08:59 171/107 05/10/19 08:59 75 171/107 05/10/19 08:00 90 05/10/19 08:00 96.6 75 19 171/102 (125) 98 05/10/19 07:50 94 Nasal Cannula 2.0 28 05/10/19 07:50 78 22 94 Nasal Cannula 3.0 32 75 22 94 05/10/19 04:00 76 05/10/19 04:00 98.0 71 19 144/73 (96) 92 05/10/19 03:20 72 21 97 Facial 30 05/10/19 00:34 75 26 95 Facial 30 05/10/19 00:18 79 18 98 Nasal Cannula 3.0 32 77 20 94 05/10/19 00:00 96 05/10/19 00:00 98.1 73 20 136/104 (115) 97 05/09/19 21:20 82 151/87 05/09/19 21:00 Nasal Cannula 2.0 05/09/19 20:13 97 Nasal Cannula 2.0 28 05/09/19 20:12 120 05/09/19 20:00 97.7 116 19 120/73 (89) 94 05/09/19 20:00 135 05/09/19 16:10 75 20 97 Nasal Cannula 3.0 32 70 20 95 05/09/19 16:00 98.2 117 20 150/106 (121) 95 05/09/19 16:00 124 Intake and Output 05/09/19 05/10/19 19:00 07:00 Intake Total 1360 ml Output Total 2000 ml 1100 ml Balance -640 ml -1100 ml Intake Oral 1360 ml Output Urine Total 2000 ml 1100 ml # Bowel Movements 2 1 Laboratory Tests 05/10/19 06:06: Digoxin Level 0.4L Height (Feet): 5 Height (Inches): 10.00 Weight (Pounds): 410 General Appearance: no apparent distress Cardiovascular: normal rate Respiratory/Chest: decreased breath sounds Abdomen: soft Objective no change Bebeto Yin MD May 10, 2019 12:27
--- NOTE | 2019-05-10 13:00 | NUR ---
NURSE NOTES: Dr. Haro ordered to cancel discharge order. Will continue plan of care.
--- NOTE | 2019-05-10 13:50 | NUR ---
NURSE NOTES: Dr. Lawrence ordered Clonidine 0.1mg 1tab PO Q8H PRN SBP>160. Carried out the order. Will administer as ordered. Will continue plan of care.
--- NOTE | 2019-05-10 14:39 | NUR ---
RD ASSESSMENT & RECOMMENDATIONS SEE CARE ACTIVITY FOR COMPLETE ASSESSMENT DAILY ESTIMATED NEEDS: Needs based on Cardiac, Pulmonary, morbid obese; 103kg adj 20-25 kcals/kg 2060- 2575 total kcals 1-1.5 g protein/kg 103- 155 g total protein Fluid per MD- CHF on lasix mL/kg total fluid mLs NUTRITION DIAGNOSIS: * Morbid obesity R/T life style factors? 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 as evidenced by BMI >50. * Altered nutrition related lab values R/T pre-diabetes as evidenced by A1C of 6.5. CURRENT DIET:Cardiac PO DIET RECOMMENDATIONS: CARDIAC + CCHO MED ADDITIONAL RECOMMENDATIONS: 1) Standing weight for accurate CBW 2) Rec adding CCHO MED to diet order: A1C 6.5 -> monitor BGs, need for hypoglycemics 3) Diet ed on heart healthy diet + wt control provided on 05/10 . .
--- NOTE | 2019-05-10 14:54 | Infectious Diseases Prog Note ---
Assessment/Plan Problems: (1) Pneumonia Assessment & Plan: less likely with no fever or productive cough or elevated wbc , off cefepime and vancomycin empirically, monitor clinically off antibiotics (2) COPD (chronic obstructive pulmonary disease) Assessment & Plan: Due to the above, continue inhalers, antibiotics , close monitor or CXR (3) Obesity, morbid, BMI 50 or higher Assessment & Plan: recommend diet and exercise (4) Renal failure Assessment & Plan: renally dosed meds as per pharmacy , renal is following Subjective Constitutional: Reports: no symptoms HEENT: Reports: no symptoms Respiratory: Reports: no symptoms Breasts: Reports: no symptoms Cardiovascular: Reports: no symptoms Gastrointestinal/Abdominal: Reports: no symptoms Genitourinary: Reports: no symptoms Neurologic: Reports: no symptoms Psychiatric: Reports: no symptoms Skin: Reports: no symptoms Endocrine: Reports: no symptoms Hematologic: Reports: no symptoms Musculoskeletal: Reports: no symptoms Allergies: Coded Allergies: RIVAROXABAN (Verified Allergy, Unknown, 04/05/19) Objective Vital Signs Last 24 Hour Vital Signs Date Time Temp Pulse Resp B/P (MAP) Pulse Ox O2 Delivery O2 Flow Rate FiO2 05/10/19 14:00 162/109 05/10/19 12:00 86 05/10/19 12:00 98.2 80 20 162/109 (126) 95 05/10/19 09:01 75 171/107 05/10/19 09:00 Nasal Cannula 2.0 05/10/19 09:00 75 05/10/19 08:59 171/107 05/10/19 08:59 75 171/107 05/10/19 08:00 90 05/10/19 08:00 96.6 75 19 171/102 (125) 98 05/10/19 07:50 94 Nasal Cannula 2.0 28 05/10/19 07:50 78 22 94 Nasal Cannula 3.0 32 75 22 94 05/10/19 04:00 76 05/10/19 04:00 98.0 71 19 144/73 (96) 92 05/10/19 03:20 72 21 97 Facial 30 05/10/19 00:34 75 26 95 Facial 30 05/10/19 00:18 79 18 98 Nasal Cannula 3.0 32 77 20 94 05/10/19 00:00 96 05/10/19 00:00 98.1 73 20 136/104 (115) 97 05/09/19 21:20 82 151/87 05/09/19 21:00 Nasal Cannula 2.0 05/09/19 20:13 97 Nasal Cannula 2.0 28 05/09/19 20:12 120 05/09/19 20:00 97.7 116 19 120/73 (89) 94 05/09/19 20:00 135 05/09/19 16:10 75 20 97 Nasal Cannula 3.0 32 70 20 95 05/09/19 16:00 98.2 117 20 150/106 (121) 95 05/09/19 16:00 124 Height (Feet): 5 Height (Inches): 10.00 Weight (Pounds): 410 General Appearance: WD/WN, no acute distress HEENT: normocephalic, atraumatic, anicteric, mucous membranes moist Respiratory/Chest: chest wall non-tender, lungs clear, normal breath sounds, no respiratory distress, no accessory muscle use Cardiovascular: normal peripheral pulses, normal rate, regular rhythm, no gallop/murmur, no JVD Abdomen: normal bowel sounds, soft, non tender, no organomegaly, non distended , no mass, no scars Extremities: no cyanosis, no clubbing Skin: no rash, no lesions, no ulcers Neurologic/Psychiatric: alert, responsive Lymphatic: no neck adenopathy, no groin adenopathy Musculoskeletal: normal muscle bulk, no effusion Laboratory Tests Test 05/10/19 06:06 05/10/19 14:00 Digoxin Level 0.4 NG/ML (0.5-2.0) L Arterial Blood pH 7.383 (7.350-7.450) Arterial Blood Partial Pressure CO2 58.3 mmHg (35.0-45.0) *H Arterial Blood Partial Pressure O2 67.8 mmHg (75.0-100.0) L Arterial Blood HCO3 33.9 mmol/L (22.0-26.0) H Arterial Blood Oxygen Saturation 92.7 % (95-100) L Arterial Blood Base Excess 7.3 (-2-2) H Kory Test Positive Current Medications Medications (Trade) Dose Ordered Sig/David Route PRN Reason Start Time Stop Time Status Last Admin Dose Admin Acetaminophen (Tylenol) 650 mg Q6H PRN ORAL Mild Pain/Temp > 100.5 05/07/19 12:00 06/04/19 11:59 Acetaminophen/ Hydrocodone Bitart ([place] 5/325) 1 tab Q6H PRN ORAL moderate pain 05/07/19 12:00 05/12/19 11:59 Albuterol/ Ipratropium (Albuterol/ Ipratropium) 3 ml Q4HRT HHN 05/07/19 15:00 05/10/19 22:59 05/10/19 07:50 Amlodipine Besylate (Norvasc) 2.5 mg DAILY ORAL 05/10/19 09:00 06/09/19 08:59 05/10/19 09:01 Apixaban (Eliquis) 5 mg BID ORAL 05/09/19 23:15 06/08/19 23:14 05/10/19 08:59 Atorvastatin Calcium (Lipitor) 40 mg BEDTIME ORAL 05/07/19 21:00 06/04/19 20:59 05/09/19 21:20 Carvedilol (Coreg) 25 mg Q12HR ORAL 05/09/19 21:00 06/08/19 20:59 05/10/19 08:59 Clonidine HCl (Catapres Tab) 0.1 mg Q8H PRN ORAL For High Blood Pressure 05/10/19 14:00 06/09/19 13:59 05/10/19 14:00 Digoxin (Lanoxin) 0.125 mg DAILY ORAL 05/10/19 09:00 06/09/19 08:59 05/10/19 09:00 Docusate Sodium (Colace) 100 mg THREE TIMES A DAY ORAL 05/07/19 13:00 06/05/19 12:59 05/10/19 12:36 Doxazosin Mesylate (Cardura) 2 mg DAILY ORAL 05/07/19 19:45 06/06/19 19:44 05/10/19 08:59 Ferrous Sulfate (Feosol) 325 mg THREE TIMES A DAY ORAL 05/08/19 18:00 06/07/19 17:59 05/10/19 12:36 Furosemide (Lasix) 20 mg DAILY IV 05/08/19 09:00 06/07/19 08:59 05/10/19 08:58 Gabapentin (Neurontin) 300 mg THREE TIMES A DAY ORAL 05/07/19 13:00 06/05/19 08:59 05/10/19 12:36 Irbesartan (Avapro) 75 mg DAILY ORAL 05/10/19 09:00 06/09/19 08:59 05/10/19 08:59 Morphine Sulfate (Morphine Sulfate) 2 mg Q8H PRN IVP Severe Pain (Pain Scale 7-10) 05/07/19 12:00 05/14/19 11:59 05/10/19 05:54 Pantoprazole (Protonix) 40 mg EVERY 12 HOURS ORAL 05/07/19 21:00 06/05/19 20:59 05/10/19 09:01 Potassium Chloride (K-Dur) 40 meq TWICE A DAY ORAL 05/07/19 18:00 06/05/19 10:44 05/10/19 09:00 Cortney Jackson M.D. May 10, 2019 14:54
--- NOTE | 2019-05-10 15:41 | General Progress Note ---
Assessment/Plan Assessment/Plan: S: I need help O: seems comfortable. 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 Acute COPD (chronic obstructive pulmonary disease) 3. Morbid obesity 4. HTN 5. Multiple joint OA 6. Afib-RVR Plan: stool for ob start iron supplement SNIF placement optimise BP medication Subjective Allergies: Coded Allergies: RIVAROXABAN (Verified Allergy, Unknown, 04/05/19) Objective Last 24 Hour Vital Signs Date Time Temp Pulse Resp B/P (MAP) Pulse Ox O2 Delivery O2 Flow Rate FiO2 05/10/19 14:00 162/109 05/10/19 12:00 86 05/10/19 12:00 98.2 80 20 162/109 (126) 95 05/10/19 09:01 75 171/107 05/10/19 09:00 Nasal Cannula 2.0 05/10/19 09:00 75 05/10/19 08:59 171/107 05/10/19 08:59 75 171/107 05/10/19 08:00 90 05/10/19 08:00 96.6 75 19 171/102 (125) 98 05/10/19 07:50 94 Nasal Cannula 2.0 28 05/10/19 07:50 78 22 94 Nasal Cannula 3.0 32 75 22 94 05/10/19 04:00 76 05/10/19 04:00 98.0 71 19 144/73 (96) 92 05/10/19 03:20 72 21 97 Facial 30 05/10/19 00:34 75 26 95 Facial 30 05/10/19 00:18 79 18 98 Nasal Cannula 3.0 32 77 20 94 05/10/19 00:00 96 05/10/19 00:00 98.1 73 20 136/104 (115) 97 05/09/19 21:20 82 151/87 05/09/19 21:00 Nasal Cannula 2.0 05/09/19 20:13 97 Nasal Cannula 2.0 28 05/09/19 20:12 120 05/09/19 20:00 97.7 116 19 120/73 (89) 94 05/09/19 20:00 135 05/09/19 16:10 75 20 97 Nasal Cannula 3.0 32 70 20 95 05/09/19 16:00 98.2 117 20 150/106 (121) 95 05/09/19 16:00 124 Intake and Output 05/09/19 05/10/19 19:00 07:00 Intake Total 1360 ml Output Total 2000 ml 1100 ml Balance -640 ml -1100 ml Intake Oral 1360 ml Output Urine Total 2000 ml 1100 ml # Bowel Movements 2 1 Laboratory Tests 05/10/19 06:06: Digoxin Level 0.4L 05/10/19 14:00: Arterial Blood pH 7.383, Arterial Blood Partial Pressure CO2 58.3*H, Arterial Blood Partial Pressure O2 67.8L, Arterial Blood HCO3 33.9H, Arterial Blood Oxygen Saturation 92.7L, Arterial Blood Base Excess 7.3H, Kory Test Positive Height (Feet): 5 Height (Inches): 10.00 Weight (Pounds): 410 Desirae Haro MD May 10, 2019 15:41
[2019-05-10] MEDS ORDERED: NIFEdipine 10mg cap ORAL SCH (15:45)
--- NOTE | 2019-05-10 16:26 | NUR ---
*-* INSURANCE *-* ALL CLINICALS AND REVIEWS HAVE BEEN FAXED TO: [facility] [employer] ASSIGNED AT THIS TIME, PLEASE FAX THE REVIEW/CLINICAL P- [phone] F- [phone]....REVIEW/CLINICAL
--- NOTE | 2019-05-10 18:00 | NUR ---
NURSE NOTES: The patient is stable without acute distress or shortness of breath. Will continue plan of care.
--- NOTE | 2019-05-10 19:30 | NUR ---
HAND-OFF: Report given to KEESHA Mcmillan. The patient is resting on the bed without acute distress or shortness of breath. The patient's bed in the lowest position, call light in reach, and fall and aspiration precaution reinforced. IV site intact and patent. Oxygen therapy per order. Dr. Lawrence at the bedside assessed the patient. Endorsed plan of care.
[2019-05-10] MEDS: Atorvastatin 20mg tab ORAL SCH (22:01)
--- NOTE | 2019-05-10 22:17 | Cardiology Progress Note ---
Assessment/Plan Assessment/Plan 1. Paroxysmal atrial fibrillation, continue digoxin and carvedilol as well as Eliquis in face of CHADS-VASC score of 2. 2. Dyspnea, most likely acute on chronic HFnlEF due to combination of HTN, CKD and obesity, there is also element of obesity hypoventilation syndrome, no prior hx of tobacco use. Continue gentle diuresis and carvedilol. 2. Morbid obesity. 3. CKD, creat down to 1.2, switch to po lasix. 4. DM, continue atorvastatin. 5. Hx of non-sustained ventricular tachycardia, given normal EF, would like to proceed with B-blockers. 6. HTN, discontinue CCB in view of LE edema, continue with cardura, optimize Irbesartan. Subjective Subjective Converted to sinus rhythm at rate of 71. Objective Last 24 Hour Vital Signs Date Time Temp Pulse Resp B/P (MAP) Pulse Ox O2 Delivery O2 Flow Rate FiO2 05/10/19 22:00 89 129/76 05/10/19 19:35 71 27 93 Facial 30 05/10/19 19:21 92 Nasal Cannula 3.0 32 05/10/19 19:17 69 20 95 Nasal Cannula 3.0 32 67 20 92 05/10/19 17:00 98.5 79 20 144/89 (107) 95 05/10/19 16:35 79 144/107 05/10/19 16:00 82 05/10/19 16:00 98.4 85 20 153/88 (109) 94 05/10/19 15:56 71 20 96 Nasal Cannula 3.0 32 73 20 95 05/10/19 14:00 162/109 05/10/19 12:00 86 05/10/19 12:00 98.2 80 20 162/109 (126) 95 05/10/19 09:01 75 171/107 05/10/19 09:00 Nasal Cannula 2.0 05/10/19 09:00 75 05/10/19 08:59 171/107 05/10/19 08:59 75 171/107 05/10/19 08:00 90 05/10/19 08:00 96.6 75 19 171/102 (125) 98 05/10/19 07:50 94 Nasal Cannula 2.0 28 05/10/19 07:50 78 22 94 Nasal Cannula 3.0 32 75 22 94 05/10/19 04:00 76 05/10/19 04:00 98.0 71 19 144/73 (96) 92 05/10/19 03:20 72 21 97 Facial 30 05/10/19 00:34 75 26 95 Facial 30 05/10/19 00:18 79 18 98 Nasal Cannula 3.0 32 77 20 94 05/10/19 00:00 96 05/10/19 00:00 98.1 73 20 136/104 (115) 97 Intake and Output 05/09/19 05/10/19 19:00 07:00 Intake Total 1360 ml Output Total 2000 ml 1100 ml Balance -640 ml -1100 ml Intake Oral 1360 ml Output Urine Total 2000 ml 1100 ml # Bowel Movements 2 1 2D Echo: Normal EF, Mod LVH, Mild LAE, RVSP 37, Grade II LVDD (pseudonormal Physio) Laboratory Tests Test 05/10/19 06:06 05/10/19 14:00 Digoxin Level 0.4 NG/ML (0.5-2.0) L Arterial Blood pH 7.383 (7.350-7.450) Arterial Blood Partial Pressure CO2 58.3 mmHg (35.0-45.0) *H Arterial Blood Partial Pressure O2 67.8 mmHg (75.0-100.0) L Arterial Blood HCO3 33.9 mmol/L (22.0-26.0) H Arterial Blood Oxygen Saturation 92.7 % (95-100) L Arterial Blood Base Excess 7.3 (-2-2) H Kory Test Positive Objective HEENT: NC/AT. EOMI. Anicteric, no pallor. + obesity Neck: JVP <5 cm, no carotid bruit. Cardiovascular: Irregularly irregular rhythm, Normal S1 and S2. No murmurs, gallops or rubs Resp: Diminished BS both lungs. Abdomen: Abdomen is soft, nondistended. Nontender, + BS Extremities: No edema, clubbing or cyanosis. Sandor Lawrence MD May 10, 2019 22:17
[2019-05-11] MEDS: Albuterol/Ipratropium 3ml neb HHN SCH ×8 (00:22→23:13)
[2019-05-11] MEDS: Morphine Sulfate 2mg/ml Inj(IV/IM USE ONLY) IVP PRN ×3 (00:47→18:42)
[2019-05-11 04:00] VITALS: BP 149/94
--- NOTE | 2019-05-11 07:12 | NUR ---
HAND-OFF: Report given to Ophelia THAO. Endorsed plan of care.
--- NOTE | 2019-05-11 07:45 | NUR ---
NURSE NOTES: Pt, on bipap, resting at this time. pt is not complaining of pain right now. Pt on night monitor, no signs of cardiac or respiratory distress at this time. Bed is locked and in lowest position. Call light within reach. Will continue to monitor pt. Pt has plans of DC home or SNF.
[2019-05-11 08:00] VITALS: BP 158/119
--- NOTE | 2019-05-11 08:42 | Pulmonology Progress Note ---
Assessment/Plan Assessment/Plan Congestive heart failure Hypertension Chronic Obstructive Pulmonary Disease Obesity Obstructive Sleep Apnea Hypertension Diabetes Plan - Diuresis PRN - monitor off steroids - HHN - O2 PRN - noninvasive ventilation PRN/QHS - ISS - PPX -d/c planning Subjective ROS Limited/Unobtainable: No Interval Events: used bipap on, groggy this AM, issues with BP Constitutional: Reports: no symptoms HEENT: Repors: no symptoms Respiratory: Reports: shortness of breath Cardiovascular: Reports: no symptoms Gastrointestinal/Abdominal: Reports: no symptoms Genitourinary: Reports: no symptoms Neurologic: Reports: no symptoms Psychiatric: Reports: no symptoms Skin: Reports: no symptoms Allergies: Coded Allergies: RIVAROXABAN (Verified Allergy, Unknown, 04/05/19) Objective Last 24 Hour Vital Signs Date Time Temp Pulse Resp B/P (MAP) Pulse Ox O2 Delivery O2 Flow Rate FiO2 05/11/19 07:56 86 20 98 Nasal Cannula 3.0 32 87 20 92 05/11/19 07:56 92 Nasal Cannula 3.0 32 05/11/19 05:32 94 24 93 Facial 30 05/11/19 04:00 97.8 77 20 149/94 (112) 95 05/11/19 04:00 88 05/11/19 03:45 102 25 93 Facial 30 05/11/19 03:05 88 20 97 Nasal Cannula 3.0 32 85 20 93 05/11/19 01:18 97.7 05/11/19 00:22 92 20 96 Nasal Cannula 3.0 32 89 20 93 05/11/19 00:00 107 05/10/19 22:00 89 129/76 05/10/19 21:00 Nasal Cannula 2.0 05/10/19 20:00 76 05/10/19 20:00 97.7 89 17 129/76 (93) 100 05/10/19 19:35 71 25 93 Bi-Pap 30 05/10/19 19:35 71 27 93 Facial 30 05/10/19 19:21 92 Nasal Cannula 3.0 32 05/10/19 19:17 69 20 95 Nasal Cannula 3.0 32 67 20 92 05/10/19 17:00 98.5 79 20 144/89 (107) 95 05/10/19 16:35 79 144/107 05/10/19 16:00 82 05/10/19 16:00 98.4 85 20 153/88 (109) 94 05/10/19 15:56 71 20 96 Nasal Cannula 3.0 32 73 20 95 05/10/19 14:00 162/109 05/10/19 12:00 86 05/10/19 12:00 98.2 80 20 162/109 (126) 95 05/10/19 09:01 75 171/107 05/10/19 09:00 Nasal Cannula 2.0 05/10/19 09:00 75 05/10/19 08:59 171/107 05/10/19 08:59 75 171/107 Intake and Output 05/10/19 05/11/19 19:00 07:00 Intake Total 930 ml Output Total 1300 ml 1600 ml Balance -370 ml -1600 ml Intake Oral 930 ml Output Urine Total 1300 ml 1600 ml # Bowel Movements 1 General Appearance: no acute distress HEENT: mucous membranes moist Respiratory/Chest: lungs clear Cardiovascular: normal rate Abdomen: soft, non tender Extremities: no edema Microbiology Date/Time Source Procedure Growth Status 05/10/19 06:50 Sputum Expectorated Gram Stain - Final Resulted 05/10/19 06:50 Sputum Expectorated Sputum Culture Pending Resulted Laboratory Tests 05/10/19 14:00: Arterial Blood pH 7.383, Arterial Blood Partial Pressure CO2 58.3*H, Arterial Blood Partial Pressure O2 67.8L, Arterial Blood HCO3 33.9H, Arterial Blood Oxygen Saturation 92.7L, Arterial Blood Base Excess 7.3H, Kory Test Positive Current Medications Medications (Trade) Dose Ordered Sig/David Route PRN Reason Start Time Stop Time Status Last Admin Dose Admin Acetaminophen (Tylenol) 650 mg Q6H PRN ORAL Mild Pain/Temp > 100.5 05/07/19 12:00 06/04/19 11:59 Acetaminophen/ Hydrocodone Bitart ([place] 5/325) 1 tab Q6H PRN ORAL moderate pain 05/07/19 12:00 05/12/19 11:59 Albuterol/ Ipratropium (Albuterol/ Ipratropium) 3 ml Q4HRT HHN 05/11/19 00:15 05/16/19 00:14 05/11/19 07:55 Apixaban (Eliquis) 5 mg BID ORAL 05/09/19 23:15 06/08/19 23:14 05/10/19 17:26 Atorvastatin Calcium (Lipitor) 40 mg BEDTIME ORAL 05/07/19 21:00 06/04/19 20:59 05/10/19 22:01 Carvedilol (Coreg) 25 mg Q12HR ORAL 05/09/19 21:00 06/08/19 20:59 05/10/19 22:00 Chlorthalidone (Chlorthalidone) 25 mg DAILY ORAL 05/10/19 19:45 06/09/19 19:44 05/10/19 22:00 Clonidine HCl (Catapres Tab) 0.1 mg Q8H PRN ORAL For High Blood Pressure 05/10/19 14:00 06/09/19 13:59 05/10/19 14:00 Digoxin (Lanoxin) 0.125 mg DAILY ORAL 05/10/19 09:00 06/09/19 08:59 05/10/19 09:00 Docusate Sodium (Colace) 100 mg THREE TIMES A DAY ORAL 05/07/19 13:00 06/05/19 12:59 05/10/19 17:26 Doxazosin Mesylate (Cardura) 2 mg DAILY ORAL 05/07/19 19:45 06/06/19 19:44 05/10/19 08:59 Ferrous Sulfate (Feosol) 325 mg THREE TIMES A DAY ORAL 05/08/19 18:00 06/07/19 17:59 05/10/19 17:26 Gabapentin (Neurontin) 300 mg THREE TIMES A DAY ORAL 05/07/19 13:00 06/05/19 08:59 05/10/19 17:26 Irbesartan (Avapro) 300 mg DAILY ORAL 05/11/19 09:00 06/10/19 08:59 Morphine Sulfate (Morphine Sulfate) 2 mg Q8H PRN IVP Severe Pain (Pain Scale 7-10) 05/07/19 12:00 05/14/19 11:59 05/11/19 00:47 Pantoprazole (Protonix) 40 mg EVERY 12 HOURS ORAL 05/07/19 21:00 06/05/19 20:59 05/10/19 22:00 Potassium Chloride (K-Dur) 40 meq TWICE A DAY ORAL 05/07/19 18:00 06/05/19 10:44 05/10/19 17:26 Jass Hartman MD May 11, 2019 08:42
[2019-05-11] MEDS: Docusate 100mg cap ORAL SCH ×3 (10:21→18:00)
[2019-05-11] MEDS: Eliquis 5mg tablet ORAL SCH ×2 (10:21→18:36)
[2019-05-11] MEDS: Irbesartan 150mg tablet ORAL SCH (10:22)
[2019-05-11] MEDS: Doxazosin 1mg Tab ORAL SCH (10:23)
[2019-05-11] MEDS: Carvedilol 25mg Tab ORAL SCH ×2 (10:23→21:23)
[2019-05-11] MEDS: Digoxin 0.125mg tab ORAL SCH (10:24)
--- NOTE | 2019-05-11 10:55 | NUR ---
PT NOTE Attempted to see patient for PT treatment, patient declining to participate with PT treatment, states he just took his medication. Ophelia THAO notified, will re-attempt later as schedule permits.
--- NOTE | 2019-05-11 11:41 | General Progress Note ---
Assessment/Plan Assessment/Plan: S: I need help O: seems comfortable. Ambulating in the room with assistance Physical Exam General Appearance: alert, GCS 15, obese, Chronically Ill Head: normocephalic Eyes: bilateral eye PERRL ENT: TMs + canals normal, uvula midline Neck: full range of motion Respiratory : lungs clear, decreased breath sounds Cardiovascular #1: edema - 3+ Edema Gastrointestinal: normal inspection, normal bowel sounds, non tender Musculoskeletal: normal inspection Neurologic: alert, motor strength/tone normal, mat sewer III-XII nml as tested, oriented x3 Psychiatric: normal inspection Skin: other - Bilateral scaly rash to the lower extremities Labs and Meds: reviewed and reconciled Assessment/Plan: 1- Acute CHF exacerbation - Diastolic 2. Acute COPD (chronic obstructive pulmonary disease) 3. Morbid obesity 4. HTN 5. Multiple joint OA 6. Afib-RVR Plan: stool for ob start iron supplement SNIF placement optimise BP medication Subjective Allergies: Coded Allergies: RIVAROXABAN (Verified Allergy, Unknown, 04/05/19) Objective Last 24 Hour Vital Signs Date Time Temp Pulse Resp B/P (MAP) Pulse Ox O2 Delivery O2 Flow Rate FiO2 05/11/19 11:20 93 20 97 Nasal Cannula 3.0 32 95 20 91 05/11/19 10:24 87 05/11/19 10:23 87 158/119 05/11/19 10:22 158/119 05/11/19 07:56 86 20 98 Nasal Cannula 3.0 32 87 20 92 05/11/19 07:56 92 Nasal Cannula 3.0 32 05/11/19 05:32 94 24 93 Facial 30 05/11/19 04:00 97.8 77 20 149/94 (112) 95 05/11/19 04:00 88 05/11/19 03:45 102 25 93 Facial 30 05/11/19 03:05 88 20 97 Nasal Cannula 3.0 32 85 20 93 05/11/19 01:18 97.7 05/11/19 00:22 92 20 96 Nasal Cannula 3.0 32 89 20 93 05/11/19 00:00 107 05/10/19 22:00 89 129/76 05/10/19 21:00 Nasal Cannula 2.0 05/10/19 20:00 76 05/10/19 20:00 97.7 89 17 129/76 (93) 100 05/10/19 19:35 71 25 93 Bi-Pap 30 05/10/19 19:35 71 27 93 Facial 30 05/10/19 19:21 92 Nasal Cannula 3.0 32 05/10/19 19:17 69 20 95 Nasal Cannula 3.0 32 67 20 92 05/10/19 17:00 98.5 79 20 144/89 (107) 95 05/10/19 16:35 79 144/107 05/10/19 16:00 82 05/10/19 16:00 98.4 85 20 153/88 (109) 94 05/10/19 15:56 71 20 96 Nasal Cannula 3.0 32 73 20 95 05/10/19 14:00 162/109 05/10/19 12:00 86 05/10/19 12:00 98.2 80 20 162/109 (126) 95 Intake and Output 05/10/19 05/11/19 19:00 07:00 Intake Total 930 ml Output Total 1300 ml 1600 ml Balance -370 ml -1600 ml Intake Oral 930 ml Output Urine Total 1300 ml 1600 ml # Bowel Movements 1 Laboratory Tests 05/10/19 14:00: Arterial Blood pH 7.383, Arterial Blood Partial Pressure CO2 58.3*H, Arterial Blood Partial Pressure O2 67.8L, Arterial Blood HCO3 33.9H, Arterial Blood Oxygen Saturation 92.7L, Arterial Blood Base Excess 7.3H, Kory Test Positive Height (Feet): 5 Height (Inches): 10.00 Weight (Pounds): 432 Desirae Haro MD May 11, 2019 11:41
[2019-05-11 11:44] VITALS: BP 158/91
--- NOTE | 2019-05-11 12:48 | NUR ---
CASE MANAGEMENT:REVIEW 05/11/19 SI: AC/CHR CHF. ACUTE COPD 98.6 82 20 158/91 92% ON 3L/NC IS: DIGOXIN PO QD AVAPRO PO QD NORVASC PO QD ELIQUIS PO BID COREG PO Q12 (DOSE DOUBLED) IV LASIX QD CARDURA PO QD K-DUR PO BID DUONEB HHN Q4HRS RTC IV MORPHINE Q8HRS PRN : TELEMETRY STATUS PLAN: DISCHARGE PLANNING...REFERRED TO SNF'S FOR PLACEMENT MONITOR OXYGEN NEEDS
--- NOTE | 2019-05-11 12:51 | NUR ---
DISCHARGE PLANNING PATIENT HAS BEEN REFERRED TO [facility]
--- NOTE | 2019-05-11 14:05 | Infectious Diseases Prog Note ---
Assessment/Plan Problems: (1) Pneumonia Assessment & Plan: less likely with no fever or productive cough or elevated wbc , off cefepime and vancomycin empirically, monitor clinically off antibiotics (2) COPD (chronic obstructive pulmonary disease) Assessment & Plan: Due to the above, continue inhalers, antibiotics , close monitor or CXR (3) Obesity, morbid, BMI 50 or higher Assessment & Plan: recommend diet and exercise (4) Renal failure Assessment & Plan: renally dosed meds as per pharmacy , renal is following Subjective Constitutional: Reports: no symptoms HEENT: Reports: no symptoms Respiratory: Reports: no symptoms Breasts: Reports: no symptoms Cardiovascular: Reports: no symptoms Gastrointestinal/Abdominal: Reports: no symptoms Genitourinary: Reports: no symptoms Neurologic: Reports: no symptoms Psychiatric: Reports: no symptoms Skin: Reports: no symptoms Endocrine: Reports: no symptoms Hematologic: Reports: no symptoms Musculoskeletal: Reports: no symptoms Allergies: Coded Allergies: RIVAROXABAN (Verified Allergy, Unknown, 04/05/19) Objective Vital Signs Last 24 Hour Vital Signs Date Time Temp Pulse Resp B/P (MAP) Pulse Ox O2 Delivery O2 Flow Rate FiO2 05/11/19 11:44 98.6 82 20 158/91 (113) 92 05/11/19 11:20 93 20 97 Nasal Cannula 3.0 32 95 20 91 05/11/19 10:24 87 05/11/19 10:23 87 158/119 05/11/19 10:22 158/119 05/11/19 08:00 98.4 87 18 158/119 (132) 93 05/11/19 07:56 86 20 98 Nasal Cannula 3.0 32 87 20 92 05/11/19 07:56 92 Nasal Cannula 3.0 32 05/11/19 05:32 94 24 93 Facial 30 05/11/19 04:00 97.8 77 20 149/94 (112) 95 05/11/19 04:00 88 05/11/19 03:45 102 25 93 Facial 30 05/11/19 03:05 88 20 97 Nasal Cannula 3.0 32 85 20 93 05/11/19 01:18 97.7 05/11/19 00:22 92 20 96 Nasal Cannula 3.0 32 89 20 93 05/11/19 00:00 107 05/10/19 22:00 89 129/76 1/7/20 21:00 Nasal Cannula 2.0 05/10/19 20:00 76 05/10/19 20:00 97.7 89 17 129/76 (93) 100 05/10/19 19:35 71 25 93 Bi-Pap 30 05/10/19 19:35 71 27 93 Facial 30 05/10/19 19:21 92 Nasal Cannula 3.0 32 05/10/19 19:17 69 20 95 Nasal Cannula 3.0 32 67 20 92 05/10/19 17:00 98.5 79 20 144/89 (107) 95 05/10/19 16:35 79 144/107 05/10/19 16:00 82 05/10/19 16:00 98.4 85 20 153/88 (109) 94 05/10/19 15:56 71 20 96 Nasal Cannula 3.0 32 73 20 95 Height (Feet): 5 Height (Inches): 10.00 Weight (Pounds): 432 General Appearance: WD/WN, no acute distress HEENT: normocephalic, atraumatic, anicteric, mucous membranes moist, PERRL, supple, no JVD Respiratory/Chest: chest wall non-tender, lungs clear, normal breath sounds, no respiratory distress, no accessory muscle use Cardiovascular: normal peripheral pulses, normal rate, regular rhythm, no gallop/murmur, no JVD Abdomen: normal bowel sounds, soft, non tender, no organomegaly, non distended , no mass, no scars Extremities: no cyanosis, no clubbing Skin: no rash, no lesions, no ulcers Neurologic/Psychiatric: 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 normal, alert, responsive Lymphatic: no neck adenopathy, no groin adenopathy Musculoskeletal: normal muscle bulk, no effusion Microbiology Date/Time Source Procedure Growth Status 05/10/19 06:50 Sputum Expectorated Gram Stain - Final Resulted 05/10/19 06:50 Sputum Expectorated Sputum Culture Pending Resulted Current Medications Medications (Trade) Dose Ordered Sig/David Route PRN Reason Start Time Stop Time Status Last Admin Dose Admin Acetaminophen (Tylenol) 650 mg Q6H PRN ORAL Mild Pain/Temp > 100.5 05/07/19 12:00 06/04/19 11:59 Acetaminophen/ Hydrocodone Bitart (Rosalia 5/325) 1 tab Q6H PRN ORAL moderate pain 05/07/19 12:00 05/12/19 11:59 Albuterol/ Ipratropium (Albuterol/ Ipratropium) 3 ml Q4HRT HHN 05/11/19 00:15 05/16/19 00:14 05/11/19 11:20 Apixaban (Eliquis) 5 mg BID ORAL 05/09/19 23:15 06/08/19 23:14 05/11/19 10:21 Atorvastatin Calcium (Lipitor) 40 mg BEDTIME ORAL 05/07/19 21:00 06/04/19 20:59 05/10/19 22:01 Carvedilol (Coreg) 25 mg Q12HR ORAL 05/09/19 21:00 06/08/19 20:59 05/11/19 10:23 Chlorthalidone (Chlorthalidone) 25 mg DAILY ORAL 05/10/19 19:45 06/09/19 19:44 05/11/19 10:20 Clonidine HCl (Catapres Tab) 0.1 mg Q8H PRN ORAL For High Blood Pressure 05/10/19 14:00 06/09/19 13:59 05/10/19 14:00 Digoxin (Lanoxin) 0.125 mg DAILY ORAL 05/10/19 09:00 06/09/19 08:59 05/11/19 10:24 Docusate Sodium (Colace) 100 mg THREE TIMES A DAY ORAL 05/07/19 13:00 06/05/19 12:59 05/11/19 10:21 Doxazosin Mesylate (Cardura) 2 mg DAILY ORAL 05/07/19 19:45 06/06/19 19:44 05/11/19 10:23 Ferrous Sulfate (Feosol) 325 mg THREE TIMES A DAY ORAL 05/08/19 18:00 06/07/19 17:59 05/11/19 10:21 Gabapentin (Neurontin) 300 mg THREE TIMES A DAY ORAL 05/07/19 13:00 06/05/19 08:59 05/11/19 10:21 Irbesartan (Avapro) 300 mg DAILY ORAL 05/11/19 09:00 06/10/19 08:59 05/11/19 10:22 Morphine Sulfate (Morphine Sulfate) 2 mg Q8H PRN IVP Severe Pain (Pain Scale 7-10) 05/07/19 12:00 05/14/19 11:59 05/11/19 10:20 Pantoprazole (Protonix) 40 mg EVERY 12 HOURS ORAL 05/07/19 21:00 06/05/19 20:59 05/11/19 10:24 Potassium Chloride (K-Dur) 40 meq TWICE A DAY ORAL 05/07/19 18:00 06/05/19 10:44 05/11/19 10:24 Cortney Jackson M.D. May 11, 2019 14:05
[2019-05-11 16:00] VITALS: BP 133/73
--- NOTE | 2019-05-11 16:11 | Nephrology Progress Note ---
Assessment/Plan Problem List: (1) Renal failure (2) Obesity, morbid, BMI 50 or higher (3) COPD (chronic obstructive pulmonary disease) (4) Electrolyte imbalance Assessment (1) Hypokalemia (2) CHF (congestive heart failure) (3) Renal failure (4) Obesity, morbid, BMI 50 or higher (5) CO2 retention (6) COPD (chronic obstructive pulmonary disease) elevated Cr likely due to diuresis Obesity , NATASHA AT fib with FVR HTN Congestive heart failure, likely diastolic dysfunction. EF 60% Recurrent NSVT. No syncope. Hypertension. Morbid obesity. COPD. Lipidemia. Plan stop NSAIDs UA Monitor Cr rising Keep BP in check Monitor lytes check B12 and Folic acid Diamox PO as needed per orders per cardio and pulmonary taper steroids as possible Subjective ROS Limited/Unobtainable: No Constitutional: Reports: malaise Objective Objective Last 24 Hour Vital Signs Date Time Temp Pulse Resp B/P (MAP) Pulse Ox O2 Delivery O2 Flow Rate FiO2 05/11/19 15:38 72 20 98 Nasal Cannula 3.0 32 71 20 94 05/11/19 11:44 98.6 82 20 158/91 (113) 92 05/11/19 11:20 93 20 97 Nasal Cannula 3.0 32 95 20 91 05/11/19 10:24 87 05/11/19 10:23 87 158/119 05/11/19 10:22 158/119 05/11/19 08:00 98.4 87 18 158/119 (132) 93 05/11/19 07:56 86 20 98 Nasal Cannula 3.0 32 87 20 92 05/11/19 07:56 92 Nasal Cannula 3.0 32 05/11/19 05:32 94 24 93 Facial 30 05/11/19 04:00 97.8 77 20 149/94 (112) 95 05/11/19 04:00 88 05/11/19 03:45 102 25 93 Facial 30 05/11/19 03:05 88 20 97 Nasal Cannula 3.0 32 85 20 93 05/11/19 01:18 97.7 05/11/19 00:22 92 20 96 Nasal Cannula 3.0 32 89 20 93 05/11/19 00:00 107 05/10/19 22:00 89 129/76 05/10/19 21:00 Nasal Cannula 2.0 05/10/19 20:00 76 05/10/19 20:00 97.7 89 17 129/76 (93) 100 05/10/19 19:35 71 25 93 Bi-Pap 30 05/10/19 19:35 71 27 93 Facial 30 05/10/19 19:21 92 Nasal Cannula 3.0 32 05/10/19 19:17 69 20 95 Nasal Cannula 3.0 32 67 20 92 05/10/19 17:00 98.5 79 20 144/89 (107) 95 05/10/19 16:35 79 144/107 Intake and Output 05/10/19 05/11/19 19:00 07:00 Intake Total 930 ml Output Total 1300 ml 1600 ml Balance -370 ml -1600 ml Intake Oral 930 ml Output Urine Total 1300 ml 1600 ml # Bowel Movements 1 Height (Feet): 5 Height (Inches): 10.00 Weight (Pounds): 432 General Appearance: no apparent distress Objective no change Bebeto Yin MD May 11, 2019 16:11
[2019-05-11 20:00] VITALS: BP 116/100
--- NOTE | 2019-05-11 20:11 | NUR ---
HAND-OFF: Report given to Hipolito/cody.
[2019-05-11] MEDS: Atorvastatin 20mg tab ORAL SCH (21:24)
--- NOTE | 2019-05-11 23:13 | NUR ---
RESPIRATORY NOTE: PT PLACED ON NOC. BIPAP PER CURRENT RESPIRATORY ORDERS. PT PLACED ON HHN TX. NO FACIAL WOUNDS FOUND PRIOR TO TAPING. ALL VS WNL. WILL CONTINUE TO MONITOR.
--- NOTE | 2019-05-11 23:44 | Cardiology Progress Note ---
Assessment/Plan Assessment/Plan 1. Paroxysmal atrial fibrillation, continue digoxin and carvedilol as well as Eliquis in face of CHADS-VASC score of 2. 2. Dyspnea, most likely acute on chronic HFnlEF due to combination of HTN, CKD and obesity, there is also element of obesity hypoventilation syndrome, no prior hx of tobacco use. Continue gentle diuresis and carvedilol. 2. Morbid obesity. 3. CKD, creat down to 1.2, continue lasix. 4. DM, continue atorvastatin. 5. Hx of non-sustained ventricular tachycardia, given normal EF, would like to proceed with B-blockers. 6. HTN, discontinue CCB in view of LE edema, continue with cardura and IIrbesartan. Subjective Subjective Sinus rhythm at rate of 88. Objective Last 24 Hour Vital Signs Date Time Temp Pulse Resp B/P (MAP) Pulse Ox O2 Delivery O2 Flow Rate FiO2 05/11/19 23:13 92 Nasal Cannula 3.0 32 05/11/19 23:13 88 31 93 Facial 30 72 26 93 05/11/19 21:23 87 116/100 05/11/19 21:00 Nasal Cannula 2.0 05/11/19 20:00 98.4 87 18 116/100 (105) 95 05/11/19 19:13 98.1 05/11/19 16:00 82 05/11/19 16:00 98.1 84 20 133/73 (93) 95 05/11/19 15:38 72 20 98 Nasal Cannula 3.0 32 71 20 94 05/11/19 12:00 89 05/11/19 11:44 98.6 82 20 158/91 (113) 92 05/11/19 11:20 93 20 97 Nasal Cannula 3.0 32 95 20 91 05/11/19 10:24 87 05/11/19 10:23 87 158/119 05/11/19 10:22 158/119 05/11/19 08:00 87 05/11/19 08:00 98.4 87 18 158/119 (132) 93 05/11/19 07:56 86 20 98 Nasal Cannula 3.0 32 87 20 92 05/11/19 07:56 92 Nasal Cannula 3.0 32 05/11/19 05:32 94 24 93 Facial 30 05/11/19 04:00 97.8 77 20 149/94 (112) 95 05/11/19 04:00 88 05/11/19 03:45 102 25 93 Facial 30 05/11/19 03:05 88 20 97 Nasal Cannula 3.0 32 85 20 93 05/11/19 00:22 92 20 96 Nasal Cannula 3.0 32 89 20 93 05/11/19 00:00 107 Intake and Output 05/10/19 05/11/19 19:00 07:00 Intake Total 930 ml Output Total 1300 ml 1600 ml Balance -370 ml -1600 ml Intake Oral 930 ml Output Urine Total 1300 ml 1600 ml # Bowel Movements 1 2D Echo: Normal EF, Mod LVH, Mild LAE, RVSP 37, Grade II LVDD (pseudonormal Physio) Microbiology Date/Time Source Procedure Growth Status 05/10/19 06:50 Sputum Expectorated Gram Stain - Final Resulted 05/10/19 06:50 Sputum Expectorated Sputum Culture Pending Resulted Objective HEENT: NC/AT. EOMI. Anicteric, no pallor. + obesity Neck: JVP <5 cm, no carotid bruit. Cardiovascular: Irregularly irregular rhythm, Normal S1 and S2. No murmurs, gallops or rubs Resp: Diminished BS both lungs. Abdomen: Abdomen is soft, nondistended. Nontender, + BS Extremities: No edema, clubbing or cyanosis. Sandor Lawrence MD May 11, 2019 23:44
[2019-05-12] VITALS (7 sets, daily range): BP systolic 119–161; BP diastolic 87–95
[2019-05-12] MEDS: Albuterol/Ipratropium 3ml neb HHN SCH ×6 (03:26→22:52)
[2019-05-12] MEDS: Morphine Sulfate 2mg/ml Inj(IV/IM USE ONLY) IVP PRN ×3 (03:40→22:01)
--- NOTE | 2019-05-12 05:15 | NUR ---
RESPIRATORY NOTE: PT REMAINED STABLE ON BIPAP WITH CURRENT SETTINGS. PT PLACED ON 2 LPM N/C. ALL VS WNL. NO S/S OF RESPIRATORY DISTRESS NOTED AT THIS TIME.
--- NOTE | 2019-05-12 07:15 | NUR ---
HAND-OFF: Report given to Adithya THAO.
[2019-05-12 07:21] LABS: BASOPHILS % (AUTO) 1.6 % (0.0-2.0); HEMOGLOBIN 11.7 G/DL (14.2-18.0); LYMPHOCYTES % (AUTO) 21.2 % (20.0-45.0); MEAN CORPUSCULAR VOLUME 81 FL (80-99); MONOCYTES % (AUTO) 7.3 % (1.0-10.0); NEUTROPHILS % (AUTO) 67.9 % (45.0-75.0); PLATELET COUNT 287 K/UL (150-450); RED BLOOD COUNT 4.56 M/UL (4.70-6.10); RED CELL DISTRIBUTION WIDTH 16.1 % (11.6-14.8); WHITE BLOOD COUNT 8.9 K/UL (4.8-10.8)
[2019-05-12 07:34] LABS: ALANINE AMINOTRANSFERASE 18 U/L (12-78); ALBUMIN/GLOBULIN RATIO 0.8 (1.0-2.7); ALKALINE PHOSPHATASE 63 U/L (46-116); ANION GAP 7 mmol/L (5-15); ASPARTATE AMINO TRANSFERASE 12 U/L (15-37); BILIRUBIN,TOTAL 0.4 MG/DL (0.2-1.0); BLOOD UREA NITROGEN 16 mg/dL (7-18); CALCIUM 8.5 MG/DL (8.5-10.1); CARBON DIOXIDE 36 MMOL/L (21-32); CHLORIDE 105 MMOL/L (98-107); CREATININE 1.3 MG/DL (0.55-1.30); PHOSPHORUS 4.1 MG/DL (2.5-4.9); POTASSIUM 3.7 MMOL/L (3.5-5.1); SODIUM 148 MMOL/L (136-145)
[2019-05-12] MEDS: Doxazosin 1mg Tab ORAL SCH (08:21)
[2019-05-12] MEDS: Irbesartan 150mg tablet ORAL SCH (08:27)
[2019-05-12] MEDS: Eliquis 5mg tablet ORAL SCH ×2 (08:28→17:10)
[2019-05-12] MEDS: Docusate 100mg cap ORAL SCH ×3 (08:29→17:10)
[2019-05-12] MEDS: Carvedilol 25mg Tab ORAL SCH ×2 (08:29→20:07)
[2019-05-12] MEDS: Digoxin 0.125mg tab ORAL SCH (08:30)
--- NOTE | 2019-05-12 08:40 | Pulmonology Progress Note ---
Assessment/Plan Assessment/Plan Congestive heart failure Hypertension Chronic Obstructive Pulmonary Disease Obesity Obstructive Sleep Apnea Hypertension Diabetes Plan - Diuresis PRN - monitor off steroids - CXR - HHN - O2 PRN - noninvasive ventilation PRN/QHS - ISS - PPX -d/c planning Subjective ROS Limited/Unobtainable: No Interval Events: feels short of breath, some cough. Using BiPAP qhs Constitutional: Reports: no symptoms HEENT: Repors: no symptoms Respiratory: Reports: dry cough, shortness of breath Cardiovascular: Reports: no symptoms Gastrointestinal/Abdominal: Reports: no symptoms Genitourinary: Reports: no symptoms Allergies: Coded Allergies: RIVAROXABAN (Verified Allergy, Unknown, 04/05/19) Objective Last 24 Hour Vital Signs Date Time Temp Pulse Resp B/P (MAP) Pulse Ox O2 Delivery O2 Flow Rate FiO2 05/12/19 08:30 98 05/12/19 08:29 98 161/91 05/12/19 08:27 161/91 05/12/19 06:04 85 20 94 05/12/19 05:15 85 20 94 Facial 30 05/12/19 04:12 98.6 05/12/19 04:00 98.4 85 18 155/88 (110) 95 05/12/19 04:00 85 05/12/19 03:26 85 29 93 Facial 30 82 23 94 05/12/19 00:52 85 25 94 Facial 30 05/12/19 00:00 83 05/12/19 00:00 98.6 90 18 119/95 (103) 96 05/11/19 23:13 92 Nasal Cannula 3.0 32 05/11/19 23:13 88 31 93 Facial 30 72 26 93 05/11/19 21:23 87 116/100 05/11/19 21:00 Nasal Cannula 2.0 05/11/19 20:00 98.4 87 18 116/100 (105) 95 05/11/19 20:00 99 05/11/19 16:00 82 05/11/19 16:00 98.1 84 20 133/73 (93) 95 05/11/19 15:38 72 20 98 Nasal Cannula 3.0 32 71 20 94 05/11/19 12:00 89 05/11/19 11:44 98.6 82 20 158/91 (113) 92 05/11/19 11:20 93 20 97 Nasal Cannula 3.0 32 95 20 91 05/11/19 10:24 87 05/11/19 10:23 87 158/119 05/11/19 10:22 158/119 Intake and Output 05/11/19 05/12/19 19:00 07:00 Intake Total 750 ml Output Total 900 ml Balance -150 ml Intake Oral 750 ml Output Urine Total 900 ml # Voids 2 # Bowel Movements 1 General Appearance: no acute distress HEENT: mucous membranes moist Respiratory/Chest: rhonchi Cardiovascular: normal rate Abdomen: soft, non tender Extremities: no cyanosis, no clubbing Microbiology Date/Time Source Procedure Growth Status 05/10/19 06:50 Sputum Expectorated Gram Stain - Final Resulted 05/10/19 06:50 Sputum Expectorated Sputum Culture Pending Resulted Laboratory Tests 05/12/19 05:42: White Blood Count 8.9, Red Blood Count 4.56L, Hemoglobin 11.7L, Hematocrit 37.0L , Mean Corpuscular Volume 81, Mean Corpuscular Hemoglobin 25.6L, Mean Corpuscular Hemoglobin Concent 31.5L, Red Cell Distribution Width 16.1H, Platelet Count 287, Mean Platelet Volume 7.5, Neutrophils (%) (Auto) 67.9, Lymphocytes (%) (Auto) 21.2, Monocytes (%) (Auto) 7.3, Eosinophils (%) (Auto) 2.0, Basophils (%) (Auto) 1.6, Sodium Level 148H, Potassium Level 3.7, Chloride Level 105, Carbon Dioxide Level 36H, Anion Gap 7, Blood Urea Nitrogen 16, Creatinine 1.3, Estimat Glomerular Filtration Rate > 60, Glucose Level 93, Calcium Level 8.5, Phosphorus Level 4.1, Magnesium Level 1.9, Total Bilirubin 0.4, Aspartate Amino Transf (AST/SGOT) 12L, Alanine Aminotransferase (ALT/SGPT) 18, Alkaline Phosphatase 63, Total Protein 6.6, Albumin 3.0L, Globulin 3.6, Albumin/Globulin Ratio 0.8L Current Medications Medications (Trade) Dose Ordered Sig/David Route PRN Reason Start Time Stop Time Status Last Admin Dose Admin Acetaminophen (Tylenol) 650 mg Q6H PRN ORAL Mild Pain/Temp > 100.5 05/07/19 12:00 06/04/19 11:59 Acetaminophen/ Hydrocodone Bitart (Converse 5/325) 1 tab Q6H PRN ORAL moderate pain 05/07/19 12:00 05/12/19 11:59 Albuterol/ Ipratropium (Albuterol/ Ipratropium) 3 ml Q4HRT HHN 05/11/19 00:15 05/16/19 00:14 05/12/19 03:26 Apixaban (Eliquis) 5 mg BID ORAL 05/09/19 23:15 06/08/19 23:14 05/12/19 08:28 Atorvastatin Calcium (Lipitor) 40 mg BEDTIME ORAL 05/07/19 21:00 06/04/19 20:59 05/11/19 21:24 Carvedilol (Coreg) 25 mg Q12HR ORAL 05/09/19 21:00 06/08/19 20:59 05/12/19 08:29 Chlorthalidone (Chlorthalidone) 25 mg DAILY ORAL 05/10/19 19:45 06/09/19 19:44 05/12/19 08:28 Clonidine HCl (Catapres Tab) 0.1 mg Q8H PRN ORAL For High Blood Pressure 05/10/19 14:00 06/09/19 13:59 05/10/19 14:00 Digoxin (Lanoxin) 0.125 mg DAILY ORAL 05/10/19 09:00 06/09/19 08:59 05/12/19 08:30 Docusate Sodium (Colace) 100 mg THREE TIMES A DAY ORAL 05/07/19 13:00 06/05/19 12:59 05/12/19 08:29 Doxazosin Mesylate (Cardura) 2 mg DAILY ORAL 05/07/19 19:45 06/06/19 19:44 05/12/19 08:21 Ferrous Sulfate (Feosol) 325 mg THREE TIMES A DAY ORAL 05/08/19 18:00 06/07/19 17:59 05/12/19 08:28 Gabapentin (Neurontin) 300 mg THREE TIMES A DAY ORAL 05/07/19 13:00 06/05/19 08:59 05/12/19 08:31 Irbesartan (Avapro) 300 mg DAILY ORAL 05/11/19 09:00 06/10/19 08:59 05/12/19 08:27 Morphine Sulfate (Morphine Sulfate) 2 mg Q8H PRN IVP Severe Pain (Pain Scale 7-10) 05/07/19 12:00 05/14/19 11:59 05/12/19 03:40 Pantoprazole (Protonix) 40 mg EVERY 12 HOURS ORAL 05/07/19 21:00 06/05/19 20:59 05/12/19 08:27 Potassium Chloride (K-Dur) 40 meq TWICE A DAY ORAL 05/07/19 18:00 06/05/19 10:44 05/12/19 08:30 Jass Hartman MD May 12, 2019 08:40
--- NOTE | 2019-05-12 09:36 | NUR ---
CASE MANAGEMENT:REVIEW 05/12/19 SI: AC/CHR CHF. ACUTE COPD 98.1 101 20 161/91 97% on 3L/NC H/H-11.7/37.0 NA+148 CO2+36 IS: DIGOXIN PO QD AVAPRO PO QD NORVASC PO QD ELIQUIS PO BID COREG PO Q12 IV LASIX QD CARDURA PO QD K-DUR PO BID DUONEB HHN Q4HRS RTC IV MORPHINE Q8HRS PRN : TELEMETRY STATUS PLAN: DISCHARGE PLANNING...REFERRED TO SNF'S FOR PLACEMENT MONITOR OXYGEN NEEDS
--- NOTE | 2019-05-12 11:00 | Infectious Diseases Prog Note ---
Assessment/Plan Problems: (1) Pneumonia Assessment & Plan: less likely with no fever or productive cough or elevated wbc , off cefepime and vancomycin empirically, monitor clinically off antibiotics (2) COPD (chronic obstructive pulmonary disease) Assessment & Plan: Due to the above, continue inhalers, antibiotics , close monitor or CXR (3) Obesity, morbid, BMI 50 or higher Assessment & Plan: recommend diet and exercise (4) Renal failure Assessment & Plan: renally dosed meds as per pharmacy , renal is following Subjective Constitutional: Reports: no symptoms HEENT: Reports: no symptoms Respiratory: Reports: no symptoms Breasts: Reports: no symptoms Cardiovascular: Reports: no symptoms Gastrointestinal/Abdominal: Reports: no symptoms Genitourinary: Reports: no symptoms Neurologic: Reports: no symptoms Psychiatric: Reports: no symptoms Skin: Reports: no symptoms Endocrine: Reports: no symptoms Hematologic: Reports: no symptoms Allergies: Coded Allergies: RIVAROXABAN (Verified Allergy, Unknown, 04/05/19) Objective Vital Signs Last 24 Hour Vital Signs Date Time Temp Pulse Resp B/P (MAP) Pulse Ox O2 Delivery O2 Flow Rate FiO2 05/12/19 08:30 98 05/12/19 08:29 98 161/91 05/12/19 08:27 161/91 05/12/19 08:00 98.1 101 20 161/91 (114) 97 05/12/19 08:00 101 05/12/19 06:04 85 20 94 05/12/19 05:15 85 20 94 Facial 30 05/12/19 04:12 98.6 05/12/19 04:00 98.4 85 18 155/88 (110) 95 05/12/19 04:00 85 05/12/19 03:26 85 29 93 Facial 30 82 23 94 05/12/19 00:52 85 25 94 Facial 30 05/12/19 00:00 83 05/12/19 00:00 98.6 90 18 119/95 (103) 96 05/11/19 23:13 92 Nasal Cannula 3.0 32 05/11/19 23:13 88 31 93 Facial 30 72 26 93 05/11/19 21:23 87 116/100 05/11/19 21:00 Nasal Cannula 2.0 05/11/19 20:00 98.4 87 18 116/100 (105) 95 05/11/19 20:00 99 05/11/19 16:00 82 05/11/19 16:00 98.1 84 20 133/73 (93) 95 05/11/19 15:38 72 20 98 Nasal Cannula 3.0 32 71 20 94 05/11/19 12:00 89 05/11/19 11:44 98.6 82 20 158/91 (113) 92 05/11/19 11:20 93 20 97 Nasal Cannula 3.0 32 95 20 91 Height (Feet): 5 Height (Inches): 10.00 Weight (Pounds): 432 General Appearance: WD/WN, no acute distress HEENT: normocephalic, atraumatic, anicteric, mucous membranes moist, PERRL, supple, no JVD Respiratory/Chest: chest wall non-tender, lungs clear, normal breath sounds, no respiratory distress, no accessory muscle use Cardiovascular: normal peripheral pulses, normal rate, regular rhythm, no gallop/murmur, no JVD Abdomen: normal bowel sounds, soft, non tender, no organomegaly, non distended , no mass Genitourinary: normal external genitalia Extremities: no cyanosis, no clubbing Skin: no rash, no lesions, no ulcers 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, no motor/sensory deficits, alert, oriented x 3, responsive, normal mood/affect Lymphatic: no neck adenopathy, no groin adenopathy Musculoskeletal: normal muscle bulk, no effusion Microbiology Date/Time Source Procedure Growth Status 05/10/19 06:50 Sputum Expectorated Gram Stain - Final Resulted 05/10/19 06:50 Sputum Expectorated Sputum Culture Pending Resulted Laboratory Tests Test 05/12/19 05:42 White Blood Count 8.9 K/UL (4.8-10.8) Red Blood Count 4.56 M/UL (4.70-6.10) L Hemoglobin 11.7 G/DL (14.2-18.0) L Hematocrit 37.0 % (42.0-52.0) L Mean Corpuscular Volume 81 FL (80-99) Mean Corpuscular Hemoglobin 25.6 PG (27.0-31.0) L Mean Corpuscular Hemoglobin Concent 31.5 G/DL (32.0-36.0) L Red Cell Distribution Width 16.1 % (11.6-14.8) H Platelet Count 287 K/UL (150-450) Mean Platelet Volume 7.5 FL (6.5-10.1) Neutrophils (%) (Auto) 67.9 % (45.0-75.0) Lymphocytes (%) (Auto) 21.2 % (20.0-45.0) Monocytes (%) (Auto) 7.3 % (1.0-10.0) Eosinophils (%) (Auto) 2.0 % (0.0-3.0) Basophils (%) (Auto) 1.6 % (0.0-2.0) Sodium Level 148 MMOL/L (136-145) H Potassium Level 3.7 MMOL/L (3.5-5.1) Chloride Level 105 MMOL/L (98-107) Carbon Dioxide Level 36 MMOL/L (21-32) H Anion Gap 7 mmol/L (5-15) Blood Urea Nitrogen 16 mg/dL (7-18) Creatinine 1.3 MG/DL (0.55-1.30) Estimat Glomerular Filtration Rate > 60 mL/min (>60) Glucose Level 93 MG/DL (74-106) Calcium Level 8.5 MG/DL (8.5-10.1) Phosphorus Level 4.1 MG/DL (2.5-4.9) Magnesium Level 1.9 MG/DL (1.8-2.4) Total Bilirubin 0.4 MG/DL (0.2-1.0) Aspartate Amino Transf (AST/SGOT) 12 U/L (15-37) L Alanine Aminotransferase (ALT/SGPT) 18 U/L (12-78) Alkaline Phosphatase 63 U/L (46-116) Total Protein 6.6 G/DL (6.4-8.2) Albumin 3.0 G/DL (3.4-5.0) L Globulin 3.6 g/dL Albumin/Globulin Ratio 0.8 (1.0-2.7) L Current Medications Medications (Trade) Dose Ordered Sig/David Route PRN Reason Start Time Stop Time Status Last Admin Dose Admin Acetaminophen (Tylenol) 650 mg Q6H PRN ORAL Mild Pain/Temp > 100.5 05/07/19 12:00 06/04/19 11:59 Acetaminophen/ Hydrocodone Bitart (Dema 5/325) 1 tab Q6H PRN ORAL moderate pain 05/07/19 12:00 05/12/19 11:59 Albuterol/ Ipratropium (Albuterol/ Ipratropium) 3 ml Q4HRT HHN 05/11/19 00:15 05/16/19 00:14 05/12/19 03:26 Apixaban (Eliquis) 5 mg BID ORAL 05/09/19 23:15 06/08/19 23:14 05/12/19 08:28 Atorvastatin Calcium (Lipitor) 40 mg BEDTIME ORAL 05/07/19 21:00 06/04/19 20:59 05/11/19 21:24 Carvedilol (Coreg) 25 mg Q12HR ORAL 05/09/19 21:00 06/08/19 20:59 05/12/19 08:29 Chlorthalidone (Chlorthalidone) 25 mg DAILY ORAL 05/10/19 19:45 06/09/19 19:44 05/12/19 08:28 Clonidine HCl (Catapres Tab) 0.1 mg Q8H PRN ORAL For High Blood Pressure 05/10/19 14:00 06/09/19 13:59 05/10/19 14:00 Digoxin (Lanoxin) 0.125 mg DAILY ORAL 05/10/19 09:00 06/09/19 08:59 05/12/19 08:30 Docusate Sodium (Colace) 100 mg THREE TIMES A DAY ORAL 05/07/19 13:00 06/05/19 12:59 05/12/19 08:29 Doxazosin Mesylate (Cardura) 2 mg DAILY ORAL 05/07/19 19:45 06/06/19 19:44 05/12/19 08:21 Ferrous Sulfate (Feosol) 325 mg THREE TIMES A DAY ORAL 05/08/19 18:00 06/07/19 17:59 05/12/19 08:28 Gabapentin (Neurontin) 300 mg THREE TIMES A DAY ORAL 05/07/19 13:00 06/05/19 08:59 05/12/19 08:31 Irbesartan (Avapro) 300 mg DAILY ORAL 05/11/19 09:00 06/10/19 08:59 05/12/19 08:27 Morphine Sulfate (Morphine Sulfate) 2 mg Q8H PRN IVP Severe Pain (Pain Scale 7-10) 05/07/19 12:00 05/14/19 11:59 05/12/19 03:40 Pantoprazole (Protonix) 40 mg EVERY 12 HOURS ORAL 05/07/19 21:00 06/05/19 20:59 05/12/19 08:27 Potassium Chloride (K-Dur) 40 meq TWICE A DAY ORAL 05/07/19 18:00 06/05/19 10:44 05/12/19 08:30 Cortney Jackson M.D. May 12, 2019 11:00
--- NOTE | 2019-05-12 12:16 | Diagnostic Imaging Report ---
Indication: Cough Technique: One view of the chest Comparison: 05/05/2019 Findings: There is persistent elevation right hemidiaphragm. There is bilateral interstitial and airspace edema, appearing slightly worse than on the prior study. There may be some pleural fluid on the left, unchanged. The heart remains enlarged. Impression: Since 05/05/2019, slight worsening of pulmonary interstitial and airspace edema
--- NOTE | 2019-05-12 14:19 | General Progress Note ---
Assessment/Plan Assessment/Plan: S: I need help O: seems comfortable. 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 Acute COPD (chronic obstructive pulmonary disease) 3. Morbid obesity 4. HTN 5. Multiple joint OA 6. Afib-RVR Plan: stool for ob start iron supplement SNIF placement optimise BP medication Subjective Allergies: Coded Allergies: RIVAROXABAN (Verified Allergy, Unknown, 04/05/19) Objective Last 24 Hour Vital Signs Date Time Temp Pulse Resp B/P (MAP) Pulse Ox O2 Delivery O2 Flow Rate FiO2 05/12/19 12:00 86 05/12/19 12:00 97.9 86 20 158/87 (110) 97 05/12/19 11:52 91 Nasal Cannula 3.0 32 05/12/19 11:52 72 20 98 Nasal Cannula 3.0 32 87 18 91 05/12/19 08:30 98 05/12/19 08:29 98 161/91 05/12/19 08:27 161/91 05/12/19 08:00 98.1 101 20 161/91 (114) 97 05/12/19 08:00 101 05/12/19 06:04 85 20 94 05/12/19 05:15 85 20 94 Facial 30 05/12/19 04:12 98.6 05/12/19 04:00 98.4 85 18 155/88 (110) 95 05/12/19 04:00 85 05/12/19 03:26 85 29 93 Facial 30 82 23 94 05/12/19 00:52 85 25 94 Facial 30 05/12/19 00:00 83 05/12/19 00:00 98.6 90 18 119/95 (103) 96 05/11/19 23:13 92 Nasal Cannula 3.0 32 05/11/19 23:13 88 31 93 Facial 30 72 26 93 05/11/19 21:23 87 116/100 05/11/19 21:00 Nasal Cannula 2.0 05/11/19 20:00 98.4 87 18 116/100 (105) 95 05/11/19 20:00 99 05/11/19 16:00 82 05/11/19 16:00 98.1 84 20 133/73 (93) 95 05/11/19 15:38 72 20 98 Nasal Cannula 3.0 32 71 20 94 Intake and Output 05/11/19 05/12/19 19:00 07:00 Intake Total 750 ml Output Total 900 ml Balance -150 ml Intake Oral 750 ml Output Urine Total 900 ml # Voids 2 # Bowel Movements 1 Laboratory Tests 05/12/19 05:42: White Blood Count 8.9, Red Blood Count 4.56L, Hemoglobin 11.7L, Hematocrit 37.0L , Mean Corpuscular Volume 81, Mean Corpuscular Hemoglobin 25.6L, Mean Corpuscular Hemoglobin Concent 31.5L, Red Cell Distribution Width 16.1H, Platelet Count 287, Mean Platelet Volume 7.5, Neutrophils (%) (Auto) 67.9, Lymphocytes (%) (Auto) 21.2, Monocytes (%) (Auto) 7.3, Eosinophils (%) (Auto) 2.0, Basophils (%) (Auto) 1.6, Sodium Level 148H, Potassium Level 3.7, Chloride Level 105, Carbon Dioxide Level 36H, Anion Gap 7, Blood Urea Nitrogen 16, Creatinine 1.3, Estimat Glomerular Filtration Rate > 60, Glucose Level 93, Calcium Level 8.5, Phosphorus Level 4.1, Magnesium Level 1.9, Total Bilirubin 0.4, Aspartate Amino Transf (AST/SGOT) 12L, Alanine Aminotransferase (ALT/SGPT) 18, Alkaline Phosphatase 63, Total Protein 6.6, Albumin 3.0L, Globulin 3.6, Albumin/Globulin Ratio 0.8L Height (Feet): 5 Height (Inches): 10.00 Weight (Pounds): 432 Desirae Haro MD May 12, 2019 14:19
--- NOTE | 2019-05-12 14:20 | NUR ---
ELEVATOR OPERATOR PROGRESS NOTE SW received a call from the charge nurse from that pt requested to see the SW. SW met w/ pt at his bedside. Pt stated he plans to return to his current transitional living facility at [address] [place] [address] if he does not go to SNF. Pt receives SSI and his IHSS provider is his cousin, Scotty Mccormick [phone]. Pt requested SW to speak to the social media sr strategy manager from [employer] Zita [phone] and signed the authorization to release information form. Pt agreed SW to fax the requested documents by Zita to her fax [phone]. SW spoke w/ Zita and faxed H&P, PT consult, and progress notes. Per Zita, she is the coating inspector of the transitional living facility, confirmed that pt is welcome to return and she will arrange all outpatient appointments upon pt's DC from hospital or SNF. ALVARO provided a copy of JESUS form to pt. Signed: 05/12/19 at 1536 by JASON JOHN <Co-Signature Required>
--- NOTE | 2019-05-12 15:28 | Nephrology Progress Note ---
Assessment/Plan Problem List: (1) Renal failure (2) Obesity, morbid, BMI 50 or higher (3) COPD (chronic obstructive pulmonary disease) (4) Electrolyte imbalance Assessment (1) Hypokalemia (2) CHF (congestive heart failure) (3) Renal failure (4) Obesity, morbid, BMI 50 or higher (5) CO2 retention (6) COPD (chronic obstructive pulmonary disease) elevated Cr likely due to diuresis Obesity , NATASHA AT fib with FVR HTN Congestive heart failure, likely diastolic dysfunction. EF 60% Recurrent NSVT. No syncope. Hypertension. Morbid obesity. COPD. Lipidemia. Plan stop NSAIDs UA Monitor Cr rising Keep BP in check Monitor lytes check B12 and Folic acid Diamox PO as needed per orders per cardio and pulmonary taper steroids as possible Subjective ROS Limited/Unobtainable: No Constitutional: Reports: malaise Objective Objective Last 24 Hour Vital Signs Date Time Temp Pulse Resp B/P (MAP) Pulse Ox O2 Delivery O2 Flow Rate FiO2 05/12/19 12:00 86 05/12/19 12:00 97.9 86 20 158/87 (110) 97 05/12/19 11:52 91 Nasal Cannula 3.0 32 05/12/19 11:52 72 20 98 Nasal Cannula 3.0 32 87 18 91 05/12/19 08:30 98 05/12/19 08:29 98 161/91 05/12/19 08:27 161/91 05/12/19 08:00 98.1 101 20 161/91 (114) 97 05/12/19 08:00 101 05/12/19 06:04 85 20 94 05/12/19 05:15 85 20 94 Facial 30 05/12/19 04:12 98.6 05/12/19 04:00 98.4 85 18 155/88 (110) 95 05/12/19 04:00 85 05/12/19 03:26 85 29 93 Facial 30 82 23 94 05/12/19 00:52 85 25 94 Facial 30 05/12/19 00:00 83 05/12/19 00:00 98.6 90 18 119/95 (103) 96 05/11/19 23:13 92 Nasal Cannula 3.0 32 05/11/19 23:13 88 31 93 Facial 30 72 26 93 05/11/19 21:23 87 116/100 05/11/19 21:00 Nasal Cannula 2.0 05/11/19 20:00 98.4 87 18 116/100 (105) 95 05/11/19 20:00 99 05/11/19 16:00 82 05/11/19 16:00 98.1 84 20 133/73 (93) 95 05/11/19 15:38 72 20 98 Nasal Cannula 3.0 32 71 20 94 Intake and Output 05/11/19 05/12/19 19:00 07:00 Intake Total 750 ml Output Total 900 ml Balance -150 ml Intake Oral 750 ml Output Urine Total 900 ml # Voids 2 # Bowel Movements 1 Laboratory Tests 05/12/19 05:42: White Blood Count 8.9, Red Blood Count 4.56L, Hemoglobin 11.7L, Hematocrit 37.0L , Mean Corpuscular Volume 81, Mean Corpuscular Hemoglobin 25.6L, Mean Corpuscular Hemoglobin Concent 31.5L, Red Cell Distribution Width 16.1H, Platelet Count 287, Mean Platelet Volume 7.5, Neutrophils (%) (Auto) 67.9, Lymphocytes (%) (Auto) 21.2, Monocytes (%) (Auto) 7.3, Eosinophils (%) (Auto) 2.0, Basophils (%) (Auto) 1.6, Sodium Level 148H, Potassium Level 3.7, Chloride Level 105, Carbon Dioxide Level 36H, Anion Gap 7, Blood Urea Nitrogen 16, Creatinine 1.3, Estimat Glomerular Filtration Rate > 60, Glucose Level 93, Calcium Level 8.5, Phosphorus Level 4.1, Magnesium Level 1.9, Total Bilirubin 0.4, Aspartate Amino Transf (AST/SGOT) 12L, Alanine Aminotransferase (ALT/SGPT) 18, Alkaline Phosphatase 63, Total Protein 6.6, Albumin 3.0L, Globulin 3.6, Albumin/Globulin Ratio 0.8L Height (Feet): 5 Height (Inches): 10.00 Weight (Pounds): 432 General Appearance: mild distress Cardiovascular: tachycardia Respiratory/Chest: decreased breath sounds Abdomen: other - obese Objective no change Bebeto Yin MD May 12, 2019 15:28
--- NOTE | 2019-05-12 19:34 | NUR ---
HAND-OFF: Report given to KEESHA Chirinos.Endorsed plan of care. Patient is in stable condition.
--- NOTE | 2019-05-12 19:36 | NUR ---
NURSE NOTES: Received report from Terrie Crawley, pt. in bed awake, no signs or symptoms of acute cardiac or respiratory distress noted, bed alarm on, side rails up x's 3 and safety brakes engaged, nestor light within easy reach, pt. able to make needs known and aware to ask for assist when ambulating- pt. advised not to walk as gait is unsteady, pt. appears to be sating well on 3L NC- no distress noted, LT. AC 20G and FALGUNI 20G IV intact and patent, safety measures continued, will continue with plan of care.
[2019-05-12] MEDS: Atorvastatin 20mg tab ORAL SCH (20:03)
--- NOTE | 2019-05-12 23:52 | Cardiology Progress Note ---
Assessment/Plan Assessment/Plan 1. Paroxysmal atrial fibrillation, continue digoxin and carvedilol as well as Eliquis in face of CHADS-VASC score of 2. 2. Dyspnea, most likely acute on chronic HFnlEF due to combination of HTN, CKD and obesity, there is also element of obesity hypoventilation syndrome, no prior hx of tobacco use. Continue gentle diuresis and carvedilol. 2. Morbid obesity. 3. CKD, creat down to 1.2, continue lasix. 4. DM, continue atorvastatin. 5. Hx of non-sustained ventricular tachycardia, given normal EF, would like to proceed with B-blockers. 6. HTN, well controlled, continue with cardura and IIrbesartan. Subjective Subjective Sinus rhythm at rate of 85. Objective Last 24 Hour Vital Signs Date Time Temp Pulse Resp B/P (MAP) Pulse Ox O2 Delivery O2 Flow Rate FiO2 05/12/19 22:58 85 18 93 Facial 30 05/12/19 22:53 89 23 96 Bi-Pap 30 85 18 93 05/12/19 22:00 150/94 (112) 05/12/19 20:07 92 153/94 05/12/19 20:00 98.1 92 20 153/94 (113) 95 05/12/19 20:00 3.0 05/12/19 19:42 85 20 96 Nasal Cannula 3.0 32 84 16 93 05/12/19 19:42 93 Nasal Cannula 3.0 32 05/12/19 16:10 85 20 96 Nasal Cannula 3.0 32 82 20 92 05/12/19 16:00 98.0 80 20 145/89 (107) 95 05/12/19 16:00 79 05/12/19 12:00 86 05/12/19 12:00 97.9 86 20 158/87 (110) 97 05/12/19 11:52 91 Nasal Cannula 3.0 32 05/12/19 11:52 72 20 98 Nasal Cannula 3.0 32 87 18 91 05/12/19 08:30 98 05/12/19 08:29 98 161/91 05/12/19 08:27 161/91 05/12/19 08:00 98.1 101 20 161/91 (114) 97 05/12/19 08:00 101 05/12/19 06:04 85 20 94 05/12/19 05:15 85 20 94 Facial 30 05/12/19 04:12 98.6 05/12/19 04:00 98.4 85 18 155/88 (110) 95 05/12/19 04:00 85 05/12/19 03:26 85 29 93 Facial 30 82 23 94 05/12/19 00:52 85 25 94 Facial 30 05/12/19 00:00 83 05/12/19 00:00 98.6 90 18 119/95 (103) 96 Intake and Output 05/11/19 05/12/19 19:00 07:00 Intake Total 750 ml Output Total 900 ml Balance -150 ml Intake Oral 750 ml Output Urine Total 900 ml # Voids 2 # Bowel Movements 1 2D Echo: Normal EF, Mod LVH, Mild LAE, RVSP 37, Grade II LVDD (pseudonormal Physio) Laboratory Tests Test 05/12/19 05:42 White Blood Count 8.9 K/UL (4.8-10.8) Red Blood Count 4.56 M/UL (4.70-6.10) L Hemoglobin 11.7 G/DL (14.2-18.0) L Hematocrit 37.0 % (42.0-52.0) L Mean Corpuscular Volume 81 FL (80-99) Mean Corpuscular Hemoglobin 25.6 PG (27.0-31.0) L Mean Corpuscular Hemoglobin Concent 31.5 G/DL (32.0-36.0) L Red Cell Distribution Width 16.1 % (11.6-14.8) H Platelet Count 287 K/UL (150-450) Mean Platelet Volume 7.5 FL (6.5-10.1) Neutrophils (%) (Auto) 67.9 % (45.0-75.0) Lymphocytes (%) (Auto) 21.2 % (20.0-45.0) Monocytes (%) (Auto) 7.3 % (1.0-10.0) Eosinophils (%) (Auto) 2.0 % (0.0-3.0) Basophils (%) (Auto) 1.6 % (0.0-2.0) Sodium Level 148 MMOL/L (136-145) H Potassium Level 3.7 MMOL/L (3.5-5.1) Chloride Level 105 MMOL/L (98-107) Carbon Dioxide Level 36 MMOL/L (21-32) H Anion Gap 7 mmol/L (5-15) Blood Urea Nitrogen 16 mg/dL (7-18) Creatinine 1.3 MG/DL (0.55-1.30) Estimat Glomerular Filtration Rate > 60 mL/min (>60) Glucose Level 93 MG/DL (74-106) Calcium Level 8.5 MG/DL (8.5-10.1) Phosphorus Level 4.1 MG/DL (2.5-4.9) Magnesium Level 1.9 MG/DL (1.8-2.4) Total Bilirubin 0.4 MG/DL (0.2-1.0) Aspartate Amino Transf (AST/SGOT) 12 U/L (15-37) L Alanine Aminotransferase (ALT/SGPT) 18 U/L (12-78) Alkaline Phosphatase 63 U/L (46-116) Total Protein 6.6 G/DL (6.4-8.2) Albumin 3.0 G/DL (3.4-5.0) L Globulin 3.6 g/dL Albumin/Globulin Ratio 0.8 (1.0-2.7) L Microbiology Date/Time Source Procedure Growth Status 05/10/19 06:50 Sputum Expectorated Gram Stain - Final Resulted 05/10/19 06:50 Sputum Expectorated Sputum Culture Pending Resulted Objective HEENT: NC/AT. EOMI. Anicteric, no pallor. + obesity Neck: JVP <5 cm, no carotid bruit. Cardiovascular: Irregularly irregular rhythm, Normal S1 and S2. No murmurs, gallops or rubs Resp: Diminished BS both lungs. Abdomen: Abdomen is soft, nondistended. Nontender, + BS Extremities: No edema, clubbing or cyanosis. Sandor Lawrence MD May 12, 2019 23:52
[2019-05-13] VITALS: BP 134/83
[2019-05-13] MEDS: Albuterol/Ipratropium 3ml neb HHN SCH ×6 (02:38→23:03)
[2019-05-13 04:00] VITALS: BP 154/82
[2019-05-13] MEDS: Morphine Sulfate 2mg/ml Inj(IV/IM USE ONLY) IVP PRN ×4 (06:07→22:57)
--- NOTE | 2019-05-13 07:08 | NUR ---
HAND-OFF: Report given to Jass Rn- pt. remains stable and no signs of distress noted.
[2019-05-13 08:00] VITALS: BP 149/78
[2019-05-13] MEDS: Eliquis 5mg tablet ORAL SCH ×2 (09:23→17:16)
[2019-05-13] MEDS: Docusate 100mg cap ORAL SCH ×3 (09:24→18:00)
[2019-05-13] MEDS: Digoxin 0.125mg tab ORAL SCH (09:24)
[2019-05-13] MEDS: Irbesartan 150mg tablet ORAL SCH (09:25)
[2019-05-13] MEDS: Doxazosin 1mg Tab ORAL SCH (09:25)
[2019-05-13] MEDS: Carvedilol 25mg Tab ORAL SCH ×2 (09:26→20:51)
--- NOTE | 2019-05-13 09:31 | NUR ---
*-* INSURANCE *-* ALL CLINICALS AND REVIEWS HAVE BEEN FAXED TO: [employer] [employer] SPECIAL EDUCATION TEACHER ASSIGNED AT THIS TIME, PLEASE FAX THE REVIEW/CLINICAL P- [phone] F- [phone]....REVIEW/CLINICAL
--- NOTE | 2019-05-13 10:29 | Pulmonology Progress Note ---
Assessment/Plan Assessment/Plan Congestive heart failure Hypertension Chronic Obstructive Pulmonary Disease Obesity Obstructive Sleep Apnea Hypertension Diabetes Plan - spot dose diuresis - monitor off steroids - CXR slight congestion - HHN - O2 PRN - noninvasive ventilation PRN/QHS - ISS - PPX -d/c planning Subjective ROS Limited/Unobtainable: Yes Interval Events: no acute events, sleeping, CXR slight pulm edema increase Allergies: Coded Allergies: RIVAROXABAN (Verified Allergy, Unknown, 04/05/19) Objective Last 24 Hour Vital Signs Date Time Temp Pulse Resp B/P (MAP) Pulse Ox O2 Delivery O2 Flow Rate FiO2 05/13/19 09:26 95 154/82 05/13/19 09:25 154/82 05/13/19 09:24 95 05/13/19 08:00 98.8 94 22 149/78 (101) 97 05/13/19 08:00 95 05/13/19 07:15 95 23 95 Nasal Cannula 3.0 32 92 20 91 05/13/19 07:14 91 Nasal Cannula 3.0 32 05/13/19 06:37 98.5 05/13/19 04:33 106 16 94 05/13/19 04:30 5.0 05/13/19 04:00 30 05/13/19 04:00 98.5 109 24 154/82 (106) 94 05/13/19 03:33 102 05/13/19 02:39 90 18 94 Facial 40 05/13/19 02:39 90 23 96 Bi-Pap 30 93 21 93 05/13/19 01:30 87 19 93 Facial 40 05/13/19 00:00 98.7 89 24 134/83 (100) 94 05/13/19 00:00 30 05/12/19 23:58 93 05/12/19 23:00 30 05/12/19 22:58 85 18 93 Facial 30 05/12/19 22:53 89 23 96 Bi-Pap 30 85 18 93 05/12/19 22:00 150/94 (112) 05/12/19 21:00 Nasal Cannula 2.0 05/12/19 20:13 96 05/12/19 20:07 92 153/94 05/12/19 20:00 98.1 92 20 153/94 (113) 95 05/12/19 20:00 3.0 05/12/19 19:42 85 20 96 Nasal Cannula 3.0 32 84 16 93 05/12/19 19:42 93 Nasal Cannula 3.0 32 05/12/19 16:10 85 20 96 Nasal Cannula 3.0 32 82 20 92 05/12/19 16:00 98.0 80 20 145/89 (107) 95 05/12/19 16:00 79 05/12/19 12:00 86 05/12/19 12:00 97.9 86 20 158/87 (110) 97 05/12/19 11:52 91 Nasal Cannula 3.0 32 05/12/19 11:52 72 20 98 Nasal Cannula 3.0 32 87 18 91 Intake and Output 05/12/19 05/13/19 19:00 07:00 Output Total 500 ml 1000 ml Balance -500 ml -1000 ml Output Urine Total 500 ml 1000 ml # Voids 1 General Appearance: no acute distress HEENT: mucous membranes moist Respiratory/Chest: crackles/rales Cardiovascular: normal rate Abdomen: soft, non tender Extremities: no cyanosis Current Medications Medications (Trade) Dose Ordered Sig/David Route PRN Reason Start Time Stop Time Status Last Admin Dose Admin Acetaminophen (Tylenol) 650 mg Q6H PRN ORAL Mild Pain/Temp > 100.5 05/07/19 12:00 06/04/19 11:59 Albuterol/ Ipratropium (Albuterol/ Ipratropium) 3 ml Q4HRT HHN 05/11/19 00:15 05/16/19 00:14 05/13/19 07:07 Apixaban (Eliquis) 5 mg BID ORAL 05/09/19 23:15 06/08/19 23:14 05/13/19 09:23 Atorvastatin Calcium (Lipitor) 40 mg BEDTIME ORAL 05/07/19 21:00 06/04/19 20:59 05/12/19 20:03 Carvedilol (Coreg) 25 mg Q12HR ORAL 05/09/19 21:00 06/08/19 20:59 05/13/19 09:26 Chlorthalidone (Chlorthalidone) 25 mg DAILY ORAL 05/10/19 19:45 06/09/19 19:44 05/13/19 09:24 Clonidine HCl (Catapres Tab) 0.1 mg Q8H PRN ORAL For High Blood Pressure 05/10/19 14:00 06/09/19 13:59 05/10/19 14:00 Digoxin (Lanoxin) 0.125 mg DAILY ORAL 05/10/19 09:00 06/09/19 08:59 05/13/19 09:24 Docusate Sodium (Colace) 100 mg THREE TIMES A DAY ORAL 05/07/19 13:00 06/05/19 12:59 05/13/19 09:24 Doxazosin Mesylate (Cardura) 2 mg DAILY ORAL 05/07/19 19:45 06/06/19 19:44 05/13/19 09:25 Ferrous Sulfate (Feosol) 325 mg THREE TIMES A DAY ORAL 05/08/19 18:00 06/07/19 17:59 05/13/19 09:25 Gabapentin (Neurontin) 300 mg THREE TIMES A DAY ORAL 05/07/19 13:00 06/05/19 08:59 05/13/19 09:26 Irbesartan (Avapro) 300 mg DAILY ORAL 05/11/19 09:00 06/10/19 08:59 05/13/19 09:25 Morphine Sulfate (Morphine Sulfate) 2 mg Q8H PRN IVP Severe Pain (Pain Scale 7-10) 05/07/19 12:00 05/14/19 11:59 05/13/19 06:07 Pantoprazole (Protonix) 40 mg EVERY 12 HOURS ORAL 05/07/19 21:00 06/05/19 20:59 05/13/19 09:23 Potassium Chloride (K-Dur) 40 meq TWICE A DAY ORAL 05/07/19 18:00 06/05/19 10:44 05/13/19 09:25 Jass Hartman MD May 13, 2019 10:29
[2019-05-13 12:00] VITALS: BP 124/76
--- NOTE | 2019-05-13 12:54 | Nephrology Progress Note ---
Assessment/Plan Problem List: (1) Renal failure (2) Obesity, morbid, BMI 50 or higher (3) COPD (chronic obstructive pulmonary disease) (4) Electrolyte imbalance Assessment (1) Hypokalemia (2) CHF (congestive heart failure) (3) Renal failure (4) Obesity, morbid, BMI 50 or higher (5) CO2 retention (6) COPD (chronic obstructive pulmonary disease) elevated Cr likely due to diuresis Obesity , NATASHA AT fib with FVR HTN Congestive heart failure, likely diastolic dysfunction. EF 60% Recurrent NSVT. No syncope. Hypertension. Morbid obesity. COPD. Lipidemia. Plan stop NSAIDs UA Monitor Cr rising Keep BP in check Monitor lytes check B12 and Folic acid Diamox PO as needed per orders per cardio and pulmonary taper steroids as possible Subjective ROS Limited/Unobtainable: No Constitutional: Reports: malaise Objective Objective Last 24 Hour Vital Signs Date Time Temp Pulse Resp B/P (MAP) Pulse Ox O2 Delivery O2 Flow Rate FiO2 05/13/19 11:18 103 23 96 Nasal Cannula 3.0 32 101 20 91 05/13/19 09:26 95 154/82 05/13/19 09:25 154/82 05/13/19 09:24 95 05/13/19 08:00 98.8 94 22 149/78 (101) 97 05/13/19 08:00 95 05/13/19 07:15 95 23 95 Nasal Cannula 3.0 32 92 20 91 05/13/19 07:14 91 Nasal Cannula 3.0 32 05/13/19 06:37 98.5 05/13/19 04:33 106 16 94 05/13/19 04:30 5.0 05/13/19 04:00 30 05/13/19 04:00 98.5 109 24 154/82 (106) 94 05/13/19 03:33 102 05/13/19 02:39 90 18 94 Facial 40 05/13/19 02:39 90 23 96 Bi-Pap 30 93 21 93 05/13/19 01:30 87 19 93 Facial 40 05/13/19 00:00 98.7 89 24 134/83 (100) 94 05/13/19 00:00 30 05/12/19 23:58 93 05/12/19 23:00 30 05/12/19 22:58 85 18 93 Facial 30 05/12/19 22:53 89 23 96 Bi-Pap 30 85 18 93 05/12/19 22:00 150/94 (112) 05/12/19 21:00 Nasal Cannula 2.0 05/12/19 20:13 96 05/12/19 20:07 92 153/94 05/12/19 20:00 98.1 92 20 153/94 (113) 95 05/12/19 20:00 3.0 05/12/19 19:42 85 20 96 Nasal Cannula 3.0 32 84 16 93 05/12/19 19:42 93 Nasal Cannula 3.0 32 05/12/19 16:10 85 20 96 Nasal Cannula 3.0 32 82 20 92 05/12/19 16:00 98.0 80 20 145/89 (107) 95 05/12/19 16:00 79 Intake and Output 05/12/19 05/13/19 19:00 07:00 Output Total 500 ml 1000 ml Balance -500 ml -1000 ml Output Urine Total 500 ml 1000 ml # Voids 1 Height (Feet): 5 Height (Inches): 10.00 Weight (Pounds): 432 General Appearance: no apparent distress Objective no change Bebeto Yin MD May 13, 2019 12:54
--- NOTE | 2019-05-13 14:00 | NUR ---
NURSE NOTES: Received patient from Terrie Regan. Patient is awake sitting up in bed. Complaining of generalized plan. 12/11 will medicate with PRN morphine. 3 L /min oxygen via nasal cannula O2 sat 965. denies SOB. noted gen edema elevated lower ext up with pillows. instructed patient to call for assistance when he needed to use the bathroom and getting up. side rails up. bed to lowest position. brake engaged. call dean within patients reache. will follow.
--- NOTE | 2019-05-13 14:34 | General Progress Note ---
Assessment/Plan Assessment/Plan: S: I need help O: seems comfortable. Ambulating in the room with assistance Physical Exam General Appearance: alert, GCS 15, obese, Chronically Ill Head: normocephalic Eyes: bilateral eye PERRL ENT: TMs + canals normal, uvula midline Neck: full range of motion Respiratory : lungs clear, decreased breath sounds Cardiovascular #1: edema - 3+ Edema Gastrointestinal: normal inspection, normal bowel sounds, non tender Musculoskeletal: normal inspection Neurologic: alert, motor strength/tone normal, paint spray inspector III-XII nml as tested, oriented x3 Psychiatric: normal inspection Skin: other - Bilateral scaly rash to the lower extremities Labs and Meds: reviewed and reconciled Assessment/Plan: 1- Acute CHF exacerbation - Diastolic 2. Acute COPD (chronic obstructive pulmonary disease) 3. Morbid obesity 4. HTN 5. Multiple joint OA 6. Afib-RVR Plan: stool for ob start iron supplement SNIF placement optimise BP medication Placement in progress Subjective Allergies: Coded Allergies: RIVAROXABAN (Verified Allergy, Unknown, 04/05/19) Objective Last 24 Hour Vital Signs Date Time Temp Pulse Resp B/P (MAP) Pulse Ox O2 Delivery O2 Flow Rate FiO2 05/13/19 11:18 103 23 96 Nasal Cannula 3.0 32 101 20 91 05/13/19 09:26 95 154/82 05/13/19 09:25 154/82 05/13/19 09:24 95 05/13/19 08:00 98.8 94 22 149/78 (101) 97 05/13/19 08:00 95 05/13/19 07:15 95 23 95 Nasal Cannula 3.0 32 92 20 91 05/13/19 07:14 91 Nasal Cannula 3.0 32 05/13/19 06:37 98.5 05/13/19 04:33 106 16 94 05/13/19 04:30 5.0 05/13/19 04:00 30 05/13/19 04:00 98.5 109 24 154/82 (106) 94 05/13/19 03:33 102 05/13/19 02:39 90 18 94 Facial 40 05/13/19 02:39 90 23 96 Bi-Pap 30 93 21 93 05/13/19 01:30 87 19 93 Facial 40 05/13/19 00:00 98.7 89 24 134/83 (100) 94 05/13/19 00:00 30 05/12/19 23:58 93 05/12/19 23:00 30 05/12/19 22:58 85 18 93 Facial 30 05/12/19 22:53 89 23 96 Bi-Pap 30 85 18 93 05/12/19 22:00 150/94 (112) 05/12/19 21:00 Nasal Cannula 2.0 05/12/19 20:13 96 05/12/19 20:07 92 153/94 05/12/19 20:00 98.1 92 20 153/94 (113) 95 05/12/19 20:00 3.0 05/12/19 19:42 85 20 96 Nasal Cannula 3.0 32 84 16 93 05/12/19 19:42 93 Nasal Cannula 3.0 32 05/12/19 16:10 85 20 96 Nasal Cannula 3.0 32 82 20 92 05/12/19 16:00 98.0 80 20 145/89 (107) 95 05/12/19 16:00 79 Intake and Output 05/12/19 05/13/19 19:00 07:00 Output Total 500 ml 1000 ml Balance -500 ml -1000 ml Output Urine Total 500 ml 1000 ml # Voids 1 Height (Feet): 5 Height (Inches): 10.00 Weight (Pounds): 432 Desirae Haro MD May 13, 2019 14:34
--- NOTE | 2019-05-13 14:53 | Infectious Diseases Prog Note ---
Assessment/Plan Problems: (1) Pneumonia Assessment & Plan: less likely with no fever or productive cough or elevated wbc , off cefepime and vancomycin empirically, monitor clinically off antibiotics (2) COPD (chronic obstructive pulmonary disease) Assessment & Plan: Due to the above, continue inhalers, antibiotics , close monitor or CXR (3) Obesity, morbid, BMI 50 or higher Assessment & Plan: recommend diet and exercise (4) Renal failure Assessment & Plan: renally dosed meds as per pharmacy , renal is following Subjective Constitutional: Reports: no symptoms HEENT: Reports: no symptoms Respiratory: Reports: no symptoms Breasts: Reports: no symptoms Cardiovascular: Reports: no symptoms Gastrointestinal/Abdominal: Reports: no symptoms Genitourinary: Reports: no symptoms Neurologic: Reports: no symptoms Psychiatric: Reports: no symptoms Skin: Reports: no symptoms Endocrine: Reports: no symptoms Hematologic: Reports: no symptoms Musculoskeletal: Reports: no symptoms Allergies: Coded Allergies: RIVAROXABAN (Verified Allergy, Unknown, 04/05/19) Objective Vital Signs Last 24 Hour Vital Signs Date Time Temp Pulse Resp B/P (MAP) Pulse Ox O2 Delivery O2 Flow Rate FiO2 05/13/19 12:00 99.8 83 20 124/76 (92) 96 05/13/19 11:18 103 23 96 Nasal Cannula 3.0 32 101 20 91 05/13/19 09:26 95 154/82 05/13/19 09:25 154/82 05/13/19 09:24 95 05/13/19 08:00 98.8 94 22 149/78 (101) 97 05/13/19 08:00 95 05/13/19 07:15 95 23 95 Nasal Cannula 3.0 32 92 20 91 05/13/19 07:14 91 Nasal Cannula 3.0 32 05/13/19 06:37 98.5 05/13/19 04:33 106 16 94 05/13/19 04:30 5.0 05/13/19 04:00 30 05/13/19 04:00 98.5 109 24 154/82 (106) 94 05/13/19 03:33 102 05/13/19 02:39 90 18 94 Facial 40 05/13/19 02:39 90 23 96 Bi-Pap 30 93 21 93 05/13/19 01:30 87 19 93 Facial 40 05/13/19 00:00 98.7 89 24 134/83 (100) 94 05/13/19 00:00 30 05/12/19 23:58 93 05/12/19 23:00 30 05/12/19 22:58 85 18 93 Facial 30 05/12/19 22:53 89 23 96 Bi-Pap 30 85 18 93 05/12/19 22:00 150/94 (112) 05/12/19 21:00 Nasal Cannula 2.0 05/12/19 20:13 96 05/12/19 20:07 92 153/94 05/12/19 20:00 98.1 92 20 153/94 (113) 95 05/12/19 20:00 3.0 05/12/19 19:42 85 20 96 Nasal Cannula 3.0 32 84 16 93 05/12/19 19:42 93 Nasal Cannula 3.0 32 05/12/19 16:10 85 20 96 Nasal Cannula 3.0 32 82 20 92 05/12/19 16:00 98.0 80 20 145/89 (107) 95 05/12/19 16:00 79 Height (Feet): 5 Height (Inches): 10.00 Weight (Pounds): 432 General Appearance: WD/WN, no acute distress HEENT: normocephalic, atraumatic, anicteric, mucous membranes moist, PERRL Respiratory/Chest: chest wall non-tender, lungs clear, normal breath sounds, no respiratory distress, no accessory muscle use Cardiovascular: normal peripheral pulses, normal rate, regular rhythm, no gallop/murmur, no JVD Abdomen: normal bowel sounds, soft, non tender, no organomegaly, non distended , no mass, no scars Genitourinary: normal external genitalia Extremities: no cyanosis, no clubbing Skin: no rash, no lesions, no ulcers 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, alert, oriented x 3, responsive Lymphatic: no neck adenopathy, no groin adenopathy Musculoskeletal: normal muscle bulk, no effusion Current Medications Medications (Trade) Dose Ordered Sig/David Route PRN Reason Start Time Stop Time Status Last Admin Dose Admin Acetaminophen (Tylenol) 650 mg Q6H PRN ORAL Mild Pain/Temp > 100.5 05/07/19 12:00 06/04/19 11:59 05/13/19 10:46 Albuterol/ Ipratropium (Albuterol/ Ipratropium) 3 ml Q4HRT HHN 05/11/19 00:15 05/16/19 00:14 05/13/19 11:16 Apixaban (Eliquis) 5 mg BID ORAL 05/09/19 23:15 06/08/19 23:14 05/13/19 09:23 Atorvastatin Calcium (Lipitor) 40 mg BEDTIME ORAL 05/07/19 21:00 06/04/19 20:59 05/12/19 20:03 Carvedilol (Coreg) 25 mg Q12HR ORAL 05/09/19 21:00 06/08/19 20:59 05/13/19 09:26 Chlorthalidone (Chlorthalidone) 25 mg DAILY ORAL 05/10/19 19:45 06/09/19 19:44 05/13/19 09:24 Clonidine HCl (Catapres Tab) 0.1 mg Q8H PRN ORAL For High Blood Pressure 05/10/19 14:00 06/09/19 13:59 05/10/19 14:00 Digoxin (Lanoxin) 0.125 mg DAILY ORAL 05/10/19 09:00 06/09/19 08:59 05/13/19 09:24 Docusate Sodium (Colace) 100 mg THREE TIMES A DAY ORAL 05/07/19 13:00 06/05/19 12:59 05/13/19 14:39 Doxazosin Mesylate (Cardura) 2 mg DAILY ORAL 05/07/19 19:45 06/06/19 19:44 05/13/19 09:25 Ferrous Sulfate (Feosol) 325 mg THREE TIMES A DAY ORAL 05/08/19 18:00 06/07/19 17:59 05/13/19 14:38 Gabapentin (Neurontin) 300 mg THREE TIMES A DAY ORAL 05/07/19 13:00 06/05/19 08:59 05/13/19 14:38 Irbesartan (Avapro) 300 mg DAILY ORAL 05/11/19 09:00 06/10/19 08:59 05/13/19 09:25 Morphine Sulfate (Morphine Sulfate) 2 mg Q8H PRN IVP Severe Pain (Pain Scale 7-10) 05/13/19 20:00 05/20/19 19:59 05/13/19 14:48 Pantoprazole (Protonix) 40 mg EVERY 12 HOURS ORAL 05/07/19 21:00 06/05/19 20:59 05/13/19 09:23 Potassium Chloride (K-Dur) 40 meq TWICE A DAY ORAL 05/07/19 18:00 06/05/19 10:44 05/13/19 09:25 Cortney Jackson M.D. May 13, 2019 14:53
--- NOTE | 2019-05-13 14:58 | NUR ---
CASE MANAGEMENT:REVIEW 05/13/19 SI: COPD. CHF. PNEUMONIA OBESITY BMI 62.0 99.8 103 20 124/76 96% ON 3L/NC IS: IV MORPHINE Q8HRS PRN AVAPRO PO QD DUONEB HHN Q4HRS RTC CHLORTHALIDONE PO QD DIGOXIN PO QD ELIQUIS PO BID COREG PO Q12 CARDURA PO QD K-DUR PO BID : TELEMETRY STATUS DCP: FROM HOME
--- NOTE | 2019-05-13 15:02 | NUR ---
DISCHARGE PLANNING UNABLE TO FIND ANY ACCEPTING SNF[facility]S [facility] ~ NO BEDS [facility] ~ NO BEDS [facility] ~ UNABLE TO ACCEPT [facility] ~ NO [facility] ~ UNABLE TO ACCEPT [facility] ~ NO RESPONSE [facility] ~ NOT CONTRACTED WITH [facility]
[2019-05-13 16:00] VITALS: BP 110/84
--- NOTE | 2019-05-13 16:00 | NUR ---
P.T. NOTES ADDENDUM S/P: APPROACHED PATIENT'S ROOM IN THE PM. PATIENT DECLINED P.T. TX. TODAY. SECONDARY TO INCREASE PAIN. ALL OVER HIS BODY. PATIENT PRE-MED. FOR PAIN. EXPLAINED TO THE PATIENT THE IMPORTANCE AND CONSEQUENCES OF PARTAKING P.T. ACTS. AND DECLINING, THEM. HOWEVER PATIENT CONT'D TO REFUSE P.T. SERVICE TODAY. RN AWARE OF PATIENT'S STATUS. WILL F/U NEXT TX. TIME AND CONT WITH P.T. PLAN. RSABADO.
--- NOTE | 2019-05-13 19:19 | NUR ---
HAND-OFF: Report given to Terrie Jensen. Plan of care endorsed.
--- NOTE | 2019-05-13 19:30 | NUR ---
NURSE NOTES: Received report from KEESHA Hein. Patient is in bed, awake and responsive. Breathing regular and unlabored with no s/s of SOB noted at this time. Patient is on a 3L NC and has PRN and QHS BIPAP. Patient c/o generalized lower extremity pain, pain medications given per MD orders. Patient is in a stable condition at this time. Bed is in lowest position, breaks engaged, and call light is within reach at all times. Will continue to monitor.
[2019-05-13 20:00] VITALS: BP 123/84
[2019-05-13] MEDS: Atorvastatin 20mg tab ORAL SCH (20:51)
--- NOTE | 2019-05-13 23:26 | Cardiology Progress Note ---
Assessment/Plan Assessment/Plan 1. Paroxysmal atrial fibrillation, continue digoxin and carvedilol as well as Eliquis in face of CHADS-VASC score of 2. 2. Dyspnea, most likely acute on chronic HFnlEF due to combination of HTN, CKD and obesity, there is also element of obesity hypoventilation syndrome, no prior hx of tobacco use. Continue gentle diuresis and carvedilol. 2. Morbid obesity. 3. CKD, creat at 1.3, continue lasix. 4. DM, continue atorvastatin. 5. Hx of non-sustained ventricular tachycardia, given normal EF, would like to proceed with B-blockers. 6. HTN, well controlled, continue with cardura and IIrbesartan. Subjective Subjective Sinus rhythm at rate of 94. Objective Last 24 Hour Vital Signs Date Time Temp Pulse Resp B/P (MAP) Pulse Ox O2 Delivery O2 Flow Rate FiO2 05/13/19 23:19 94 26 94 Facial 40 05/13/19 23:04 94 26 94 Bi-Pap 40 93 26 93 05/13/19 20:55 98 26 93 Facial 40 05/13/19 20:51 107 123/84 05/13/19 19:14 108 20 96 Nasal Cannula 3.0 32 106 20 90 05/13/19 19:14 90 Nasal Cannula 3.0 32 05/13/19 16:00 91 05/13/19 16:00 99.0 91 22 110/84 (93) 91 05/13/19 15:10 95 22 95 Nasal Cannula 3.0 32 92 22 90 05/13/19 12:00 99.8 83 20 124/76 (92) 96 05/13/19 12:00 99 05/13/19 11:18 103 23 96 Nasal Cannula 3.0 32 101 20 91 05/13/19 09:26 95 154/82 05/13/19 09:25 154/82 05/13/19 09:24 95 05/13/19 08:00 98.8 94 22 149/78 (101) 97 05/13/19 08:00 95 05/13/19 07:15 95 23 95 Nasal Cannula 3.0 32 92 20 91 05/13/19 07:14 91 Nasal Cannula 3.0 32 05/13/19 06:37 98.5 05/13/19 04:33 106 16 94 1/10/20 04:30 5.0 05/13/19 04:00 30 05/13/19 04:00 98.5 109 24 154/82 (106) 94 05/13/19 03:33 102 05/13/19 02:39 90 18 94 Facial 40 05/13/19 02:39 90 23 96 Bi-Pap 30 93 21 93 05/13/19 01:30 87 19 93 Facial 40 05/13/19 00:00 98.7 89 24 134/83 (100) 94 05/13/19 00:00 30 05/12/19 23:58 93 Intake and Output 05/12/19 05/13/19 19:00 07:00 Output Total 500 ml 1000 ml Balance -500 ml -1000 ml Output Urine Total 500 ml 1000 ml # Voids 1 2D Echo: Normal EF, Mod LVH, Mild LAE, RVSP 37, Grade II LVDD (pseudonormal Physio) Objective HEENT: NC/AT. EOMI. Anicteric, no pallor. + obesity Neck: JVP <5 cm, no carotid bruit. Cardiovascular: Irregularly irregular rhythm, Normal S1 and S2. No murmurs, gallops or rubs Resp: Diminished BS both lungs. Abdomen: Abdomen is soft, nondistended. Nontender, + BS Extremities: No edema, clubbing or cyanosis. Sandor Lawrence MD May 13, 2019 23:26
[2019-05-14] VITALS: BP 142/95
--- NOTE | 2019-05-14 00:40 | NUR ---
NURSE NOTES: Upon assessment of patient's vitals, noted that the patient had a temperature of 102 orally. Re-assessed the patient's temperature and the reading was 102 axillary. Administered PRN Tylenol and put ice packs under the patient's axilla. Patient was refusing and saying "Can you let me be, i was finally getting comfortable." Explained to the patient that the Tylenol and the ice-packs were for his benefit and it is needed to lower his temperature. Patient allowed me to do so. Contacted Dr. Haro to let him know about the patient's condition. Informed the Doctor that the temperature spike is new and has not happened throughout the day. No response yet, will wait for response. Patient is currently stable. Will continue to monitor.
--- NOTE | 2019-05-14 01:20 | NUR ---
NURSE NOTES: Re-assessed the patient's temperature and now it is 100.4. Patient refused to allow me to remove one of his blankets to help in reduction of temperature. Patient is currently stable. Will continue to monitor.
--- NOTE | 2019-05-14 02:26 | NUR ---
NURSE NOTES: Re-assessed the patient's temperature and it is now reading at 99.7. Patient is not c/o any pain or chills. Patient remains stable. Still no response from Dr. Haro, will wait for response. Will continue to monitor.
[2019-05-14] MEDS: Albuterol/Ipratropium 3ml neb HHN SCH ×6 (02:55→23:47)
[2019-05-14 04:00] VITALS: BP 135/91
--- NOTE | 2019-05-14 07:29 | NUR ---
HAND-OFF: Report given to KEESHA Trevino. Patient is in stable condition, plan of care endorsed.
--- NOTE | 2019-05-14 07:30 | NUR ---
NURSE NOTES: Handoff received from KEESHA Morrison. Patient received awake and alert and able to make needs known. Patient complaining of pain and asking for morphine, no acute signs of distress noted. Patient has Bipap on. IV site is clean dry and intact, saline locked. bed in the low and locked position with call light within reach, will continue to monitor.
[2019-05-14 08:00] VITALS: BP 175/93
[2019-05-14] MEDS: Morphine Sulfate 2mg/ml Inj(IV/IM USE ONLY) IVP PRN ×2 (08:49→17:07)
[2019-05-14] MEDS: Carvedilol 25mg Tab ORAL SCH ×2 (09:33→21:00)
[2019-05-14] MEDS: Docusate 100mg cap ORAL SCH ×3 (09:34→17:03)
[2019-05-14] MEDS: Doxazosin 1mg Tab ORAL SCH (09:35)
[2019-05-14] MEDS: Irbesartan 150mg tablet ORAL SCH (09:35)
[2019-05-14] MEDS: Eliquis 5mg tablet ORAL SCH ×2 (09:36→17:04)
[2019-05-14] MEDS: Digoxin 0.125mg tab ORAL SCH (09:37)
[2019-05-14 10:08] LABS: EOSINOPHILS % (AUTO) 1.4 % (0.0-3.0); HEMATOCRIT 36.2 % (42.0-52.0); HEMOGLOBIN 11.4 G/DL (14.2-18.0); LYMPHOCYTES % (AUTO) 20.1 % (20.0-45.0); MEAN CORPUSCULAR VOLUME 80 FL (80-99); MONOCYTES % (AUTO) 11.3 % (1.0-10.0); NEUTROPHILS % (AUTO) 65.4 % (45.0-75.0); PLATELET COUNT 217 K/UL (150-450); RED CELL DISTRIBUTION WIDTH 16.2 % (11.6-14.8); WHITE BLOOD COUNT 8.8 K/UL (4.8-10.8)
--- NOTE | 2019-05-14 10:16 | Diagnostic Imaging Report ---
EXAM: XR Chest, 1 View CLINICAL HISTORY: COUGH TECHNIQUE: Frontal view of the chest. COMPARISON: Chest radiograph on 05/12/2019 FINDINGS: Hardware: None. Lungs/pleura: Low lung volumes. Probable similar bilateral pleural effusions with associated atelectasis versus pneumonia. Probable background of pulmonary edema. Stable elevation of the right hemidiaphragm. Heart/mediastinum: Stable enlargement of the cardiomediastinal silhouette. Soft tissues: Unremarkable. Bones: No acute fracture. Upper abdomen: Normal. IMPRESSION: Probable similar bilateral pleural effusions with associated atelectasis versus pneumonia. Probable background of pulmonary edema.
[2019-05-14 10:30] LABS: ALANINE AMINOTRANSFERASE 18 U/L (12-78); ALBUMIN 2.9 G/DL (3.4-5.0); ALBUMIN/GLOBULIN RATIO 0.8 (1.0-2.7); ALKALINE PHOSPHATASE 59 U/L (46-116); ANION GAP 3 mmol/L (5-15); ASPARTATE AMINO TRANSFERASE 13 U/L (15-37); BILIRUBIN,TOTAL 0.5 MG/DL (0.2-1.0); BLOOD UREA NITROGEN 13 mg/dL (7-18); CALCIUM 8.2 MG/DL (8.5-10.1); CHLORIDE 102 MMOL/L (98-107); CREATININE 1.4 MG/DL (0.55-1.30); POTASSIUM 3.5 MMOL/L (3.5-5.1); SODIUM 145 MMOL/L (136-145)
--- NOTE | 2019-05-14 10:34 | NUR ---
RADIOLOGY DEPT, CHEST X-RAY DONE.-P.DYE
[2019-05-14 10:36] LABS: CARBON DIOXIDE 40 MMOL/L (21-32)
[2019-05-14] MEDS: Vancomycin 1.5gm/NS Premix IVPB SCH ×2 (11:16→20:58)
[2019-05-14 12:00] VITALS: BP 130/61
--- NOTE | 2019-05-14 13:10 | NUR ---
NURSE NOTES: Patient's left arm is slightly swollen, IV is patent. Patient denies pain and insists IV site does not need to be changed, Patient states that his arm has been edematous since he has been in the hospital and is a result of CHF. Elevated left arm on 3 pillows and will monitor swelling. If swelling continues or worsens will remove and replace IV.
--- NOTE | 2019-05-14 13:48 | Nephrology Progress Note ---
Assessment/Plan Problem List: (1) Renal failure (2) Obesity, morbid, BMI 50 or higher (3) COPD (chronic obstructive pulmonary disease) (4) Electrolyte imbalance Assessment (1) Hypokalemia (2) CHF (congestive heart failure) (3) Renal failure (4) Obesity, morbid, BMI 50 or higher (5) CO2 retention (6) COPD (chronic obstructive pulmonary disease) elevated Cr likely due to diuresis Obesity , NATASHA AT fib with FVR HTN Congestive heart failure, likely diastolic dysfunction. EF 60% Recurrent NSVT. No syncope. Hypertension. Morbid obesity. COPD. Lipidemia. Plan stop NSAIDs UA Monitor Cr rising Keep BP in check Monitor lytes check B12 and Folic acid Diamox PO as needed per orders per cardio and pulmonary taper steroids as possible Subjective ROS Limited/Unobtainable: No Constitutional: Reports: malaise, weakness Objective Objective Last 24 Hour Vital Signs Date Time Temp Pulse Resp B/P (MAP) Pulse Ox O2 Delivery O2 Flow Rate FiO2 05/14/19 12:00 97.1 99 19 130/61 (84) 98 05/14/19 10:44 87 18 97 Nasal Cannula 3.0 32 81 20 93 05/14/19 09:37 93 05/14/19 09:35 175/93 05/14/19 09:33 93 175/93 05/14/19 08:55 Nasal Cannula 2.0 05/14/19 08:00 99.5 93 22 175/93 (120) 93 05/14/19 08:00 92 05/14/19 07:29 92 24 96 Nasal Cannula 3.0 32 89 26 90 05/14/19 07:19 90 Nasal Cannula 2.0 28 05/14/19 04:00 98.9 80 20 135/91 (106) 91 05/14/19 04:00 96 05/14/19 03:11 84 25 94 Facial 40 05/14/19 02:55 89 30 95 Bi-Pap 40 87 30 90 05/14/19 01:19 100.4 05/14/19 01:01 92 27 94 Facial 40 05/14/19 00:00 102.0 87 20 142/95 (111) 99 05/13/19 23:43 90 28 95 Facial 40 05/13/19 23:19 94 26 94 Facial 40 05/13/19 23:04 94 26 94 Bi-Pap 40 93 26 93 05/13/19 21:00 Nasal Cannula 2.0 05/13/19 20:55 98 26 93 Facial 40 05/13/19 20:51 107 123/84 05/13/19 20:00 117 05/13/19 20:00 99.4 107 20 123/84 (97) 100 05/13/19 19:14 108 20 96 Nasal Cannula 3.0 32 106 20 90 05/13/19 19:14 90 Nasal Cannula 3.0 32 05/13/19 16:00 91 05/13/19 16:00 99.0 91 22 110/84 (93) 91 05/13/19 15:10 95 22 95 Nasal Cannula 3.0 32 92 22 90 Intake and Output 05/13/19 05/14/19 19:00 07:00 Intake Total 1200 ml 240 ml Output Total 2000 ml 300 ml Balance -800 ml -60 ml Intake Oral 1200 ml 240 ml Output Urine Total 2000 ml 300 ml # Bowel Movements 1 Laboratory Tests 05/14/19 09:40: White Blood Count 8.8, Red Blood Count 4.50L, Hemoglobin 11.4L, Hematocrit 36.2L , Mean Corpuscular Volume 80, Mean Corpuscular Hemoglobin 25.3L, Mean Corpuscular Hemoglobin Concent 31.5L, Red Cell Distribution Width 16.2H, Platelet Count 217, Mean Platelet Volume 7.4, Neutrophils (%) (Auto) 65.4, Lymphocytes (%) (Auto) 20.1, Monocytes (%) (Auto) 11.3H, Eosinophils (%) (Auto) 1.4, Basophils (%) (Auto) 2.0, Sodium Level 145, Potassium Level 3.5, Chloride Level 102, Carbon Dioxide Level 40H, Anion Gap 3L, Blood Urea Nitrogen 13, Creatinine 1.4H, Estimat Glomerular Filtration Rate > 60, Glucose Level 120H, Calcium Level 8.2L, Total Bilirubin 0.5, Aspartate Amino Transf (AST/SGOT) 13L, Alanine Aminotransferase (ALT/SGPT) 18, Alkaline Phosphatase 59, Total Protein 6.6, Albumin 2.9L, Globulin 3.7, Albumin/Globulin Ratio 0.8L Height (Feet): 5 Height (Inches): 10.00 Weight (Pounds): 432 General Appearance: no apparent distress Objective no change Bebeto Yin MD May 14, 2019 13:48
[2019-05-14] MEDS: Piperacillin/Tazobactam 3.375 GM in NS 110 ML IVPB SCH ×2 (14:46→23:30)
[2019-05-14] MEDS ORDERED: NS 275ml ONE (15:51)
[2019-05-14 16:00] VITALS: BP 146/84
--- NOTE | 2019-05-14 17:12 | NUR ---
NURSE NOTES:Dropped ferrous sulphate medication on the floor. Pulled an extra from the [facility] as had to waste the other tablet.
--- NOTE | 2019-05-14 17:13 | Pulmonology Progress Note ---
Assessment/Plan Assessment/Plan Congestive heart failure Hypertension Chronic Obstructive Pulmonary Disease Obesity Obstructive Sleep Apnea Hypertension Diabetes cough Plan - spot dose diuresis - monitor off steroids - CXR slight congestion -sonsider adding flonase and ppi - HHN - O2 PRN - noninvasive ventilation PRN/QHS - ISS - PPX -d/c planning Subjective Constitutional: Reports: no symptoms HEENT: Repors: no symptoms Respiratory: Reports: dry cough, shortness of breath Cardiovascular: Reports: no symptoms Gastrointestinal/Abdominal: Reports: no symptoms Allergies: Coded Allergies: RIVAROXABAN (Verified Allergy, Unknown, 04/05/19) Subjective upset about coughing no cp nv or bleeding oob using cpap at night no fever toleraeing po remains on o2 Objective Last 24 Hour Vital Signs Date Time Temp Pulse Resp B/P (MAP) Pulse Ox O2 Delivery O2 Flow Rate FiO2 05/14/19 15:01 91 18 98 Nasal Cannula 3.0 32 94 18 96 05/14/19 12:00 100 05/14/19 12:00 97.1 99 19 130/61 (84) 98 05/14/19 10:44 87 18 97 Nasal Cannula 3.0 32 81 20 93 05/14/19 09:37 93 05/14/19 09:35 175/93 05/14/19 09:33 93 175/93 05/14/19 08:55 Nasal Cannula 2.0 05/14/19 08:00 99.5 93 22 175/93 (120) 93 05/14/19 08:00 92 05/14/19 07:29 92 24 96 Nasal Cannula 3.0 32 89 26 90 05/14/19 07:19 90 Nasal Cannula 2.0 28 05/14/19 04:00 98.9 80 20 135/91 (106) 91 05/14/19 04:00 96 05/14/19 03:11 84 25 94 Facial 40 05/14/19 02:55 89 30 95 Bi-Pap 40 87 30 90 05/14/19 01:19 100.4 05/14/19 01:01 92 27 94 Facial 40 05/14/19 00:00 102.0 87 20 142/95 (111) 99 05/13/19 23:43 90 28 95 Facial 40 05/13/19 23:19 94 26 94 Facial 40 05/13/19 23:04 94 26 94 Bi-Pap 40 93 26 93 1/10/20 21:00 Nasal Cannula 2.0 05/13/19 20:55 98 26 93 Facial 40 05/13/19 20:51 107 123/84 05/13/19 20:00 117 05/13/19 20:00 99.4 107 20 123/84 (97) 100 05/13/19 19:14 108 20 96 Nasal Cannula 3.0 32 106 20 90 05/13/19 19:14 90 Nasal Cannula 3.0 32 Intake and Output 05/13/19 05/14/19 19:00 07:00 Intake Total 1200 ml 240 ml Output Total 2000 ml 300 ml Balance -800 ml -60 ml Intake Oral 1200 ml 240 ml Output Urine Total 2000 ml 300 ml # Bowel Movements 1 General Appearance: WD/WN Respiratory/Chest: lungs clear Cardiovascular: normal rate, regular rhythm Abdomen: soft, non tender, no organomegaly Extremities: no cyanosis 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, alert, oriented x 3, responsive Laboratory Tests 05/14/19 09:40: White Blood Count 8.8, Red Blood Count 4.50L, Hemoglobin 11.4L, Hematocrit 36.2L , Mean Corpuscular Volume 80, Mean Corpuscular Hemoglobin 25.3L, Mean Corpuscular Hemoglobin Concent 31.5L, Red Cell Distribution Width 16.2H, Platelet Count 217, Mean Platelet Volume 7.4, Neutrophils (%) (Auto) 65.4, Lymphocytes (%) (Auto) 20.1, Monocytes (%) (Auto) 11.3H, Eosinophils (%) (Auto) 1.4, Basophils (%) (Auto) 2.0, Sodium Level 145, Potassium Level 3.5, Chloride Level 102, Carbon Dioxide Level 40H, Anion Gap 3L, Blood Urea Nitrogen 13, Creatinine 1.4H, Estimat Glomerular Filtration Rate > 60, Glucose Level 120H, Calcium Level 8.2L, Total Bilirubin 0.5, Aspartate Amino Transf (AST/SGOT) 13L, Alanine Aminotransferase (ALT/SGPT) 18, Alkaline Phosphatase 59, Total Protein 6.6, Albumin 2.9L, Globulin 3.7, Albumin/Globulin Ratio 0.8L Current Medications Medications (Trade) Dose Ordered Sig/David Route PRN Reason Start Time Stop Time Status Last Admin Dose Admin Acetaminophen (Tylenol) 650 mg Q6H PRN ORAL Mild Pain/Temp > 100.5 05/07/19 12:00 06/04/19 11:59 05/14/19 00:31 Albuterol/ Ipratropium (Albuterol/ Ipratropium) 3 ml Q4HRT HHN 05/11/19 00:15 05/16/19 00:14 05/14/19 14:52 Apixaban (Eliquis) 5 mg BID ORAL 05/09/19 23:15 06/08/19 23:14 05/14/19 17:04 Atorvastatin Calcium (Lipitor) 40 mg BEDTIME ORAL 05/07/19 21:00 06/04/19 20:59 05/13/19 20:51 Carvedilol (Coreg) 25 mg Q12HR ORAL 05/09/19 21:00 06/08/19 20:59 05/14/19 09:33 Chlorthalidone (Chlorthalidone) 25 mg DAILY ORAL 05/10/19 19:45 06/09/19 19:44 05/14/19 09:36 Clonidine HCl (Catapres Tab) 0.1 mg Q8H PRN ORAL For High Blood Pressure 05/10/19 14:00 06/09/19 13:59 05/10/19 14:00 Digoxin (Lanoxin) 0.125 mg DAILY ORAL 05/10/19 09:00 06/09/19 08:59 05/14/19 09:37 Docusate Sodium (Colace) 100 mg THREE TIMES A DAY ORAL 05/07/19 13:00 06/05/19 12:59 05/14/19 09:34 Doxazosin Mesylate (Cardura) 2 mg DAILY ORAL 05/07/19 19:45 06/06/19 19:44 05/14/19 09:35 Ferrous Sulfate (Feosol) 325 mg THREE TIMES A DAY ORAL 05/08/19 18:00 06/07/19 17:59 05/14/19 17:05 Gabapentin (Neurontin) 300 mg THREE TIMES A DAY ORAL 05/07/19 13:00 06/05/19 08:59 05/14/19 17:05 Irbesartan (Avapro) 300 mg DAILY ORAL 05/11/19 09:00 06/10/19 08:59 05/14/19 09:35 Morphine Sulfate (Morphine Sulfate) 2 mg Q8H PRN IVP Severe Pain (Pain Scale 7-10) 05/13/19 20:00 05/20/19 19:59 05/14/19 17:07 Pantoprazole (Protonix) 40 mg EVERY 12 HOURS ORAL 05/07/19 21:00 06/05/19 20:59 05/14/19 09:37 Piperacillin Sod/ Tazobactam Sod 3.375 gm/Sodium Chloride 110 ml @ 27.5 mls/hr Q8H IVPB 05/14/19 12:00 05/21/19 11:59 05/14/19 14:46 Potassium Chloride (K-Dur) 40 meq TWICE A DAY ORAL 05/07/19 18:00 06/05/19 10:44 05/14/19 17:05 Vancomycin HCl (Vanco rx to dose) 1 ea DAILY PRN MISC Per rx protocol 05/14/19 08:45 06/13/19 08:44 Vancomycin/Sodium Chloride 275 ml @ 137.5 mls/ hr Q8H IVPB 05/14/19 10:00 05/19/19 09:59 05/14/19 11:16 Vanessa Coleman DO May 14, 2019 17:12
[2019-05-14] MEDS: Flonase Nasal Inhaler 16gm NASAL SCH (18:00)
--- NOTE | 2019-05-14 18:00 | NUR ---
NURSE NOTES: 18;00 IV antibiotic not administered as previous antibiotic still running. Patient originally refused to have IV placed. Patient went 3 hours before allowing IV to be inserted. Patient then requested that this IV be removed and placed in the left arm as he is right handed. Told Patient to wait until antibiotic finished. Patient then called and said IV antibiotic is no longer working, Noticed IV was not in place. Another IV was then placed in the Left arm and antibiotic continued. endorsed to PM shift that the 1800 antibiotic could not be administered on time.
--- NOTE | 2019-05-14 19:25 | Infectious Diseases Prog Note ---
Assessment/Plan Problems: (1) Pneumonia Assessment & Plan: now with cough, fever and SOB, will start vancomycin and zosyn empirically, send sputum culture and obtain CXR (2) COPD (chronic obstructive pulmonary disease) Assessment & Plan: Due to the above, continue inhalers, antibiotics , close monitor or CXR (3) Obesity, morbid, BMI 50 or higher Assessment & Plan: recommend diet and exercise (4) Renal failure Assessment & Plan: renally dosed meds as per pharmacy , renal is following (5) Fever Assessment & Plan: suspect pneumonia related, rule out sepsis , will send blood culture x 2 and obtain CXR, start wide spectrum antibiotics Subjective Constitutional: Reports: fever, fatigue HEENT: Reports: no symptoms Respiratory: Reports: shortness of breath, dry cough Breasts: Reports: no symptoms Cardiovascular: Reports: no symptoms Gastrointestinal/Abdominal: Reports: no symptoms Genitourinary: Reports: no symptoms Neurologic: Reports: no symptoms Psychiatric: Reports: no symptoms Skin: Reports: no symptoms Endocrine: Reports: no symptoms Hematologic: Reports: no symptoms Musculoskeletal: Reports: no symptoms Allergies: Coded Allergies: RIVAROXABAN (Verified Allergy, Unknown, 04/05/19) Objective Vital Signs Last 24 Hour Vital Signs Date Time Temp Pulse Resp B/P (MAP) Pulse Ox O2 Delivery O2 Flow Rate FiO2 05/14/19 16:00 99.4 99 21 146/84 (104) 88 05/14/19 16:00 103 05/14/19 15:01 91 18 98 Nasal Cannula 3.0 32 94 18 96 05/14/19 12:00 100 05/14/19 12:00 97.1 99 19 130/61 (84) 98 05/14/19 10:44 87 18 97 Nasal Cannula 3.0 32 81 20 93 05/14/19 09:37 93 05/14/19 09:35 175/93 05/14/19 09:33 93 175/93 05/14/19 08:55 Nasal Cannula 2.0 05/14/19 08:00 99.5 93 22 175/93 (120) 93 05/14/19 08:00 92 05/14/19 07:29 92 24 96 Nasal Cannula 3.0 32 89 26 90 05/14/19 07:19 90 Nasal Cannula 2.0 28 05/14/19 04:00 98.9 80 20 135/91 (106) 91 05/14/19 04:00 96 05/14/19 03:11 84 25 94 Facial 40 05/14/19 02:55 89 30 95 Bi-Pap 40 87 30 90 05/14/19 01:19 100.4 05/14/19 01:01 92 27 94 Facial 40 05/14/19 00:00 102.0 87 20 142/95 (111) 99 05/13/19 23:43 90 28 95 Facial 40 05/13/19 23:19 94 26 94 Facial 40 05/13/19 23:04 94 26 94 Bi-Pap 40 93 26 93 05/13/19 21:00 Nasal Cannula 2.0 05/13/19 20:55 98 26 93 Facial 40 05/13/19 20:51 107 123/84 05/13/19 20:00 117 05/13/19 20:00 99.4 107 20 123/84 (97) 100 Height (Feet): 5 Height (Inches): 10.00 Weight (Pounds): 432 General Appearance: WD/WN, no acute distress HEENT: normocephalic, atraumatic, anicteric, mucous membranes moist, PERRL Respiratory/Chest: chest wall non-tender, no respiratory distress, no accessory muscle use, decreased breath sounds, crackles/rales, expiratory wheezing Cardiovascular: normal peripheral pulses, normal rate, regular rhythm Abdomen: normal bowel sounds, soft, non tender, no organomegaly, non distended , no mass, no scars Genitourinary: normal external genitalia Extremities: no cyanosis, no clubbing Skin: no rash, no lesions, no ulcers Neurologic/Psychiatric: front end assistant 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 normal, no motor/sensory deficits, alert, oriented x 3, responsive Lymphatic: no neck adenopathy, no groin adenopathy Laboratory Tests Test 05/14/19 09:40 White Blood Count 8.8 K/UL (4.8-10.8) Red Blood Count 4.50 M/UL (4.70-6.10) L Hemoglobin 11.4 G/DL (14.2-18.0) L Hematocrit 36.2 % (42.0-52.0) L Mean Corpuscular Volume 80 FL (80-99) Mean Corpuscular Hemoglobin 25.3 PG (27.0-31.0) L Mean Corpuscular Hemoglobin Concent 31.5 G/DL (32.0-36.0) L Red Cell Distribution Width 16.2 % (11.6-14.8) H Platelet Count 217 K/UL (150-450) Mean Platelet Volume 7.4 FL (6.5-10.1) Neutrophils (%) (Auto) 65.4 % (45.0-75.0) Lymphocytes (%) (Auto) 20.1 % (20.0-45.0) Monocytes (%) (Auto) 11.3 % (1.0-10.0) H Eosinophils (%) (Auto) 1.4 % (0.0-3.0) Basophils (%) (Auto) 2.0 % (0.0-2.0) Sodium Level 145 MMOL/L (136-145) Potassium Level 3.5 MMOL/L (3.5-5.1) Chloride Level 102 MMOL/L (98-107) Carbon Dioxide Level 40 MMOL/L (21-32) H Anion Gap 3 mmol/L (5-15) L Blood Urea Nitrogen 13 mg/dL (7-18) Creatinine 1.4 MG/DL (0.55-1.30) H Estimat Glomerular Filtration Rate > 60 mL/min (>60) Glucose Level 120 MG/DL (74-106) H Calcium Level 8.2 MG/DL (8.5-10.1) L Total Bilirubin 0.5 MG/DL (0.2-1.0) Aspartate Amino Transf (AST/SGOT) 13 U/L (15-37) L Alanine Aminotransferase (ALT/SGPT) 18 U/L (12-78) Alkaline Phosphatase 59 U/L (46-116) Total Protein 6.6 G/DL (6.4-8.2) Albumin 2.9 G/DL (3.4-5.0) L Globulin 3.7 g/dL Albumin/Globulin Ratio 0.8 (1.0-2.7) L Current Medications Medications (Trade) Dose Ordered Sig/David Route PRN Reason Start Time Stop Time Status Last Admin Dose Admin Acetaminophen (Tylenol) 650 mg Q6H PRN ORAL Mild Pain/Temp > 100.5 05/07/19 12:00 06/04/19 11:59 05/14/19 00:31 Albuterol/ Ipratropium (Albuterol/ Ipratropium) 3 ml Q4HRT HHN 05/11/19 00:15 05/16/19 00:14 05/14/19 14:52 Apixaban (Eliquis) 5 mg BID ORAL 05/09/19 23:15 06/08/19 23:14 05/14/19 17:04 Atorvastatin Calcium (Lipitor) 40 mg BEDTIME ORAL 05/07/19 21:00 06/04/19 20:59 05/13/19 20:51 Carvedilol (Coreg) 25 mg Q12HR ORAL 05/09/19 21:00 06/08/19 20:59 05/14/19 09:33 Chlorthalidone (Chlorthalidone) 25 mg DAILY ORAL 05/10/19 19:45 06/09/19 19:44 05/14/19 09:36 Clonidine HCl (Catapres Tab) 0.1 mg Q8H PRN ORAL For High Blood Pressure 05/10/19 14:00 06/09/19 13:59 05/10/19 14:00 Digoxin (Lanoxin) 0.125 mg DAILY ORAL 05/10/19 09:00 06/09/19 08:59 05/14/19 09:37 Docusate Sodium (Colace) 100 mg THREE TIMES A DAY ORAL 05/07/19 13:00 06/05/19 12:59 05/14/19 09:34 Doxazosin Mesylate (Cardura) 2 mg DAILY ORAL 05/07/19 19:45 06/06/19 19:44 05/14/19 09:35 Ferrous Sulfate (Feosol) 325 mg THREE TIMES A DAY ORAL 05/08/19 18:00 06/07/19 17:59 05/14/19 17:05 Fluticasone Propionate (Flonase) 1 spray TWICE A DAY NASAL 05/14/19 18:00 06/13/19 17:59 Gabapentin (Neurontin) 300 mg THREE TIMES A DAY ORAL 05/07/19 13:00 06/05/19 08:59 05/14/19 17:05 Irbesartan (Avapro) 300 mg DAILY ORAL 05/11/19 09:00 06/10/19 08:59 05/14/19 09:35 Morphine Sulfate (Morphine Sulfate) 2 mg Q8H PRN IVP Severe Pain (Pain Scale 7-10) 05/13/19 20:00 05/20/19 19:59 05/14/19 17:07 Pantoprazole (Protonix) 40 mg EVERY 12 HOURS ORAL 05/07/19 21:00 06/05/19 20:59 05/14/19 09:37 Piperacillin Sod/ Tazobactam Sod 3.375 gm/Sodium Chloride 110 ml @ 27.5 mls/hr Q8H IVPB 05/14/19 12:00 05/21/19 11:59 05/14/19 14:46 Potassium Chloride (K-Dur) 40 meq TWICE A DAY ORAL 05/07/19 18:00 06/05/19 10:44 05/14/19 17:05 Vancomycin HCl (Vanco rx to dose) 1 ea DAILY PRN MISC Per rx protocol 05/14/19 08:45 06/13/19 08:44 Vancomycin/Sodium Chloride 275 ml @ 137.5 mls/ hr Q8H IVPB 05/14/19 10:00 05/19/19 09:59 05/14/19 11:16 Cortney Jackson M.D. May 14, 2019 19:25
--- NOTE | 2019-05-14 19:27 | NUR ---
NURSE NOTES: Dr Coleman made rounds on patient. No new orders placed. Addendum: 05/14/19 at 1928 by Uriel Bridges RN made rounds at 1700
--- NOTE | 2019-05-14 19:32 | NUR ---
HAND-OFF: Report given to KEESHA Morrison.
--- NOTE | 2019-05-14 19:35 | NUR ---
NURSE NOTES: Received report from KEESHA Trevino. Patient is in bed, awake and responsive. Breathing regular and unlabored with no s/s of SOB noted at this time. Patient remains on a NC at 3L. Patient's IV site is running prescribed antibiotics, but the site is swollen. Morning RN attempted to place a new access on the other arm, but patient refused and stated "I need my hand to use the bathroom, don't put an IV in that arm." Arm has been elevated on pillows, but still remains swollen. Due to previous lack of IV access, the 1800 anabiotics were not administered by morning RN. Pharmacy is aware and advised to continue the medication after the current antibiotic that is running is done because they cannot re-time the dosing. Will follow the advise. No pain noted at the site. Patient currently denies any pain or discomfort. Bed is in lowest position, breaks engaged, and call light is within reach. Patient is stable, will continue to monitor.
[2019-05-14 20:00] VITALS: BP 136/98
--- NOTE | 2019-05-14 20:35 | Cardiology Progress Note ---
Assessment/Plan Assessment/Plan 1. Paroxysmal atrial fibrillation, continue digoxin and carvedilol as well as Eliquis in face of CHADS-VASC score of 2. 2. Dyspnea, most likely acute on chronic HFnlEF due to combination of HTN, CKD and obesity, there is also element of obesity hypoventilation syndrome, no prior hx of tobacco use. Continue gentle diuresis and carvedilol. 2. Morbid obesity. 3. CKD, creat up to 1.4, on thiazide diuretics. 4. DM, continue atorvastatin. 5. Hx of non-sustained ventricular tachycardia, given normal EF, would like to proceed with B-blockers. 6. HTN, well controlled, continue thiazide diuretics, cardura and Irbesartan. Subjective Subjective Sinus rhythm at rate of 92. On NC 2 lit/min. Objective Last 24 Hour Vital Signs Date Time Temp Pulse Resp B/P (MAP) Pulse Ox O2 Delivery O2 Flow Rate FiO2 05/14/19 19:55 92 Nasal Cannula 2.0 28 05/14/19 19:55 92 18 94 Nasal Cannula 3.0 32 90 20 92 05/14/19 16:00 99.4 99 21 146/84 (104) 88 05/14/19 16:00 103 05/14/19 15:01 91 18 98 Nasal Cannula 3.0 32 94 18 96 05/14/19 12:00 100 05/14/19 12:00 97.1 99 19 130/61 (84) 98 05/14/19 10:44 87 18 97 Nasal Cannula 3.0 32 81 20 93 05/14/19 09:37 93 05/14/19 09:35 175/93 05/14/19 09:33 93 175/93 05/14/19 08:55 Nasal Cannula 2.0 05/14/19 08:00 99.5 93 22 175/93 (120) 93 05/14/19 08:00 92 05/14/19 07:29 92 24 96 Nasal Cannula 3.0 32 89 26 90 05/14/19 07:19 90 Nasal Cannula 2.0 28 05/14/19 04:00 98.9 80 20 135/91 (106) 91 05/14/19 04:00 96 05/14/19 03:11 84 25 94 Facial 40 05/14/19 02:55 89 30 95 Bi-Pap 40 87 30 90 05/14/19 01:19 100.4 05/14/19 01:01 92 27 94 Facial 40 05/14/19 00:00 102.0 87 20 142/95 (111) 99 05/13/19 23:43 90 28 95 Facial 40 05/13/19 23:19 94 26 94 Facial 40 05/13/19 23:04 94 26 94 Bi-Pap 40 93 26 93 05/13/19 21:00 Nasal Cannula 2.0 05/13/19 20:55 98 26 93 Facial 40 05/13/19 20:51 107 123/84 Intake and Output 05/13/19 05/14/19 18:59 06:59 Intake Total 1200 ml 240 ml Output Total 2000 ml 300 ml Balance -800 ml -60 ml Intake Oral 1200 ml 240 ml Output Urine Total 2000 ml 300 ml # Bowel Movements 1 2D Echo: Normal EF, Mod LVH, Mild LAE, RVSP 37, Grade II LVDD (pseudonormal Physio) Laboratory Tests Test 05/14/19 09:40 White Blood Count 8.8 K/UL (4.8-10.8) Red Blood Count 4.50 M/UL (4.70-6.10) L Hemoglobin 11.4 G/DL (14.2-18.0) L Hematocrit 36.2 % (42.0-52.0) L Mean Corpuscular Volume 80 FL (80-99) Mean Corpuscular Hemoglobin 25.3 PG (27.0-31.0) L Mean Corpuscular Hemoglobin Concent 31.5 G/DL (32.0-36.0) L Red Cell Distribution Width 16.2 % (11.6-14.8) H Platelet Count 217 K/UL (150-450) Mean Platelet Volume 7.4 FL (6.5-10.1) Neutrophils (%) (Auto) 65.4 % (45.0-75.0) Lymphocytes (%) (Auto) 20.1 % (20.0-45.0) Monocytes (%) (Auto) 11.3 % (1.0-10.0) H Eosinophils (%) (Auto) 1.4 % (0.0-3.0) Basophils (%) (Auto) 2.0 % (0.0-2.0) Sodium Level 145 MMOL/L (136-145) Potassium Level 3.5 MMOL/L (3.5-5.1) Chloride Level 102 MMOL/L (98-107) Carbon Dioxide Level 40 MMOL/L (21-32) H Anion Gap 3 mmol/L (5-15) L Blood Urea Nitrogen 13 mg/dL (7-18) Creatinine 1.4 MG/DL (0.55-1.30) H Estimat Glomerular Filtration Rate > 60 mL/min (>60) Glucose Level 120 MG/DL (74-106) H Calcium Level 8.2 MG/DL (8.5-10.1) L Total Bilirubin 0.5 MG/DL (0.2-1.0) Aspartate Amino Transf (AST/SGOT) 13 U/L (15-37) L Alanine Aminotransferase (ALT/SGPT) 18 U/L (12-78) Alkaline Phosphatase 59 U/L (46-116) Total Protein 6.6 G/DL (6.4-8.2) Albumin 2.9 G/DL (3.4-5.0) L Globulin 3.7 g/dL Albumin/Globulin Ratio 0.8 (1.0-2.7) L Objective HEENT: NC/AT. EOMI. Anicteric, no pallor. + obesity Neck: JVP <5 cm, no carotid bruit. Cardiovascular: Irregularly irregular rhythm, Normal S1 and S2. No murmurs, gallops or rubs Resp: Diminished BS both lungs. Abdomen: Abdomen is soft, nondistended. Nontender, + BS Extremities: No edema, clubbing or cyanosis. Sandor Lawrence MD May 14, 2019 20:35
[2019-05-14] MEDS: Atorvastatin 20mg tab ORAL SCH (21:01)
[2019-05-15] VITALS: BP 106/84
[2019-05-15] MEDS: Morphine Sulfate 2mg/ml Inj(IV/IM USE ONLY) IVP PRN ×3 (02:02→18:10)
[2019-05-15] MEDS: Albuterol/Ipratropium 3ml neb HHN SCH ×6 (03:34→23:05)
[2019-05-15 04:00] VITALS: BP 141/98
[2019-05-15] MEDS: Vancomycin 1.5gm/NS Premix IVPB SCH (04:25)
[2019-05-15] MEDS: Piperacillin/Tazobactam 3.375 GM in NS 110 ML IVPB SCH ×3 (07:35→21:32)
--- NOTE | 2019-05-15 07:44 | NUR ---
RESPIRATORY NOTE: received pt on bipap, slightly SOB. breathing tx will be as followed. pt is in and out of sleep but no signs of resp distress. pt is refusing foam tape at this time and as of last night. no signs of redness or skin irritation around facial area. will cont to monitor.
--- NOTE | 2019-05-15 07:45 | NUR ---
NURSE NOTES: Received report from KEESHA Jensen. Patient in bed resting, no active s/s cardiac distress noticed at this time. Patient on BIPAP for slight SOB, AOX3, SR with HR 82. Patient still refused to put new IV on right arm, IV on left hand 24G, blood return but swollen. Endorsed possible SNF placement. Bed in lowest position, side rails upx2, call light within reach. Will continue to monitor.
[2019-05-15 08:00] VITALS: BP 160/98
--- NOTE | 2019-05-15 08:07 | NUR ---
HAND-OFF: Report given to KEESHA Rose. Patient is in stable condition, plan of care endorsed.
[2019-05-15] MEDS: Digoxin 0.125mg tab ORAL SCH (08:59)
[2019-05-15] MEDS: Doxazosin 1mg Tab ORAL SCH (08:59)
[2019-05-15] MEDS: Docusate 100mg cap ORAL SCH ×3 (09:00→17:52)
[2019-05-15] MEDS: Carvedilol 25mg Tab ORAL SCH ×2 (09:00→21:31)
[2019-05-15] MEDS: Irbesartan 150mg tablet ORAL SCH (09:00)
[2019-05-15] MEDS: Eliquis 5mg tablet ORAL SCH ×2 (09:00→17:52)
[2019-05-15] MEDS: Flonase Nasal Inhaler 16gm NASAL SCH ×3 (09:05→17:51)
[2019-05-15 09:31] LABS: ALANINE AMINOTRANSFERASE 16 U/L (12-78); ALBUMIN 2.8 G/DL (3.4-5.0); ALBUMIN/GLOBULIN RATIO 0.8 (1.0-2.7); ALKALINE PHOSPHATASE 51 U/L (46-116); ANION GAP 1 mmol/L (5-15); ASPARTATE AMINO TRANSFERASE 16 U/L (15-37); BILIRUBIN,TOTAL 0.4 MG/DL (0.2-1.0); BLOOD UREA NITROGEN 16 mg/dL (7-18); CARBON DIOXIDE 40 MMOL/L (21-32); CHLORIDE 103 MMOL/L (98-107); CREATININE 1.5 MG/DL (0.55-1.30); POTASSIUM 3.4 MMOL/L (3.5-5.1); SODIUM 144 MMOL/L (136-145)
[2019-05-15 12:00] VITALS: BP 139/65
--- NOTE | 2019-05-15 14:12 | Nephrology Progress Note ---
Assessment/Plan Problem List: (1) Renal failure (2) Obesity, morbid, BMI 50 or higher (3) COPD (chronic obstructive pulmonary disease) (4) Electrolyte imbalance Assessment (1) Hypokalemia (2) CHF (congestive heart failure) (3) Renal failure (4) Obesity, morbid, BMI 50 or higher (5) CO2 retention (6) COPD (chronic obstructive pulmonary disease) elevated Cr likely due to diuresis Obesity , NATASHA AT fib with FVR HTN Congestive heart failure, likely diastolic dysfunction. EF 60% Recurrent NSVT. No syncope. Hypertension. Morbid obesity. COPD. Lipidemia. Plan K supplement stop NSAIDs UA Monitor Cr rising Keep BP in check Monitor lytes check B12 and Folic acid Diamox PO as needed per orders per cardio and pulmonary taper steroids as possible Subjective ROS Limited/Unobtainable: No Constitutional: Reports: malaise Objective Objective Last 24 Hour Vital Signs Date Time Temp Pulse Resp B/P (MAP) Pulse Ox O2 Delivery O2 Flow Rate FiO2 05/15/19 12:00 71 05/15/19 12:00 99.5 76 22 139/65 (89) 93 05/15/19 11:11 105 22 98 Nasal Cannula 3.0 32 105 22 95 05/15/19 09:00 160/98 05/15/19 09:00 101 160/98 05/15/19 08:59 101 05/15/19 08:00 99.5 101 22 160/98 (118) 95 05/15/19 08:00 107 05/15/19 07:44 94 Bi-Pap 30 05/15/19 07:41 98 28 91 Facial 30 102 29 94 Bi-Pap 30 05/15/19 04:00 110 05/15/19 04:00 97.4 90 20 141/98 (112) 96 05/15/19 03:34 82 25 94 Facial 30 84 15 95 Bi-Pap 30 05/15/19 00:49 165/125 05/15/19 00:00 96 05/15/19 00:00 97.0 90 20 106/84 (91) 88 05/14/19 23:53 88 30 93 Facial 30 05/14/19 23:53 88 18 94 Nasal Cannula 3.0 32 86 20 92 05/14/19 21:00 75 116/55 05/14/19 21:00 Nasal Cannula 2.0 05/14/19 20:00 97.8 96 21 136/98 (111) 96 05/14/19 20:00 99 05/14/19 19:55 92 Nasal Cannula 2.0 28 05/14/19 19:55 92 18 94 Nasal Cannula 3.0 32 90 20 92 05/14/19 16:00 99.4 99 21 146/84 (104) 88 05/14/19 16:00 103 05/14/19 15:01 91 18 98 Nasal Cannula 3.0 32 94 18 96 Intake and Output 05/14/19 05/15/19 19:00 07:00 Intake Total 1680 ml Output Total 1700 ml 1600 ml Balance -20 ml -1600 ml Intake Oral 1680 ml Output Urine Total 1700 ml 1600 ml # Bowel Movements 1 Laboratory Tests 05/15/19 08:55: Sodium Level 144, Potassium Level 3.4L, Chloride Level 103, Carbon Dioxide Level 40H, Anion Gap 1L, Blood Urea Nitrogen 16, Creatinine 1.5H, Estimat Glomerular Filtration Rate > 60, Glucose Level 135H, Calcium Level 8.0L, Total Bilirubin 0.4, Aspartate Amino Transf (AST/SGOT) 16, Alanine Aminotransferase ( ALT/SGPT) 16, Alkaline Phosphatase 51, Total Protein 6.1L, Albumin 2.8L, Globulin 3.3, Albumin/Globulin Ratio 0.8L, Vancomycin Level Trough 23.3H Height (Feet): 5 Height (Inches): 10.00 Weight (Pounds): 432 General Appearance: no apparent distress Cardiovascular: normal rate, tachycardia Respiratory/Chest: decreased breath sounds Abdomen: distended Objective no change Bebeto Yin MD May 15, 2019 14:12
--- NOTE | 2019-05-15 14:35 | Infectious Diseases Prog Note ---
Assessment/Plan Problems: (1) Pneumonia Assessment & Plan: now with cough productive , fever and SOB, continue zosyn empirically pending sputum culture and monitor CXR . stop vancomycin since supra therapeutic (2) COPD (chronic obstructive pulmonary disease) Assessment & Plan: Due to the above, continue inhalers, antibiotics , close monitor or CXR (3) Obesity, morbid, BMI 50 or higher Assessment & Plan: recommend diet and exercise (4) Renal failure Assessment & Plan: stop vancomycin since level is high , close monitor of renal function , renally dosed meds as per pharmacy , renal is following (5) Fever Assessment & Plan: suspect pneumonia related, rule out sepsis , await blood culture x 2 and sputum culture , continue wide spectrum antibiotics Subjective Constitutional: Reports: fever, fatigue HEENT: Reports: congestion Respiratory: Reports: shortness of breath, productive cough Breasts: Reports: no symptoms Cardiovascular: Reports: no symptoms Gastrointestinal/Abdominal: Reports: no symptoms Genitourinary: Reports: no symptoms Neurologic: Reports: no symptoms Psychiatric: Reports: no symptoms Skin: Reports: no symptoms Endocrine: Reports: no symptoms Hematologic: Reports: no symptoms Musculoskeletal: Reports: no symptoms Allergies: Coded Allergies: RIVAROXABAN (Verified Allergy, Unknown, 04/05/19) Objective Vital Signs Last 24 Hour Vital Signs Date Time Temp Pulse Resp B/P (MAP) Pulse Ox O2 Delivery O2 Flow Rate FiO2 05/15/19 12:00 71 05/15/19 12:00 99.5 76 22 139/65 (89) 93 05/15/19 11:11 105 22 98 Nasal Cannula 3.0 32 105 22 95 05/15/19 09:00 160/98 05/15/19 09:00 101 160/98 05/15/19 08:59 101 05/15/19 08:00 99.5 101 22 160/98 (118) 95 05/15/19 08:00 107 05/15/19 07:44 94 Bi-Pap 30 05/15/19 07:41 98 28 91 Facial 30 102 29 94 Bi-Pap 30 05/15/19 04:00 110 05/15/19 04:00 97.4 90 20 141/98 (112) 96 05/15/19 03:34 82 25 94 Facial 30 84 15 95 Bi-Pap 30 05/15/19 00:49 165/125 05/15/19 00:00 96 05/15/19 00:00 97.0 90 20 106/84 (91) 88 05/14/19 23:53 88 30 93 Facial 30 05/14/19 23:53 88 18 94 Nasal Cannula 3.0 32 86 20 92 05/14/19 21:00 75 116/55 05/14/19 21:00 Nasal Cannula 2.0 05/14/19 20:00 97.8 96 21 136/98 (111) 96 05/14/19 20:00 99 05/14/19 19:55 92 Nasal Cannula 2.0 28 05/14/19 19:55 92 18 94 Nasal Cannula 3.0 32 90 20 92 05/14/19 16:00 99.4 99 21 146/84 (104) 88 05/14/19 16:00 103 05/14/19 15:01 91 18 98 Nasal Cannula 3.0 32 94 18 96 Height (Feet): 5 Height (Inches): 10.00 Weight (Pounds): 432 General Appearance: WD/WN, no acute distress HEENT: normocephalic, atraumatic, anicteric, mucous membranes moist, PERRL Respiratory/Chest: chest wall non-tender, no respiratory distress, no accessory muscle use, decreased breath sounds, crackles/rales, expiratory wheezing Cardiovascular: normal peripheral pulses, normal rate, regular rhythm, no gallop/murmur, no JVD Abdomen: normal bowel sounds, soft, non tender, no organomegaly, non distended , no mass, no scars Extremities: no cyanosis, no clubbing Skin: no rash, no lesions, no ulcers Neurologic/Psychiatric: 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, alert, oriented x 3, responsive Lymphatic: no neck adenopathy, no groin adenopathy Musculoskeletal: other - left arm edema Laboratory Tests Test 05/15/19 08:55 Sodium Level 144 MMOL/L (136-145) Potassium Level 3.4 MMOL/L (3.5-5.1) L Chloride Level 103 MMOL/L (98-107) Carbon Dioxide Level 40 MMOL/L (21-32) H Anion Gap 1 mmol/L (5-15) L Blood Urea Nitrogen 16 mg/dL (7-18) Creatinine 1.5 MG/DL (0.55-1.30) H Estimat Glomerular Filtration Rate > 60 mL/min (>60) Glucose Level 135 MG/DL (74-106) H Calcium Level 8.0 MG/DL (8.5-10.1) L Total Bilirubin 0.4 MG/DL (0.2-1.0) Aspartate Amino Transf (AST/SGOT) 16 U/L (15-37) Alanine Aminotransferase (ALT/SGPT) 16 U/L (12-78) Alkaline Phosphatase 51 U/L (46-116) Total Protein 6.1 G/DL (6.4-8.2) L Albumin 2.8 G/DL (3.4-5.0) L Globulin 3.3 g/dL Albumin/Globulin Ratio 0.8 (1.0-2.7) L Vancomycin Level Trough 23.3 ug/mL (5.0-12.0) H Current Medications Medications (Trade) Dose Ordered Sig/David Route PRN Reason Start Time Stop Time Status Last Admin Dose Admin Acetaminophen (Tylenol) 650 mg Q6H PRN ORAL Mild Pain/Temp > 100.5 05/07/19 12:00 06/04/19 11:59 05/15/19 09:01 Albuterol/ Ipratropium (Albuterol/ Ipratropium) 3 ml Q4HRT HHN 05/11/19 00:15 05/16/19 00:14 05/15/19 11:09 Apixaban (Eliquis) 5 mg BID ORAL 05/09/19 23:15 06/08/19 23:14 05/15/19 09:00 Atorvastatin Calcium (Lipitor) 40 mg BEDTIME ORAL 05/07/19 21:00 06/04/19 20:59 05/14/19 21:01 Carvedilol (Coreg) 25 mg Q12HR ORAL 05/09/19 21:00 06/08/19 20:59 05/15/19 09:00 Chlorthalidone (Chlorthalidone) 25 mg DAILY ORAL 05/10/19 19:45 06/09/19 19:44 05/15/19 09:00 Clonidine HCl (Catapres Tab) 0.1 mg Q8H PRN ORAL For High Blood Pressure 05/10/19 14:00 06/09/19 13:59 05/15/19 00:49 Digoxin (Lanoxin) 0.125 mg DAILY ORAL 05/10/19 09:00 06/09/19 08:59 05/15/19 08:59 Docusate Sodium (Colace) 100 mg THREE TIMES A DAY ORAL 05/07/19 13:00 06/05/19 12:59 05/15/19 09:00 Doxazosin Mesylate (Cardura) 2 mg DAILY ORAL 05/07/19 19:45 06/06/19 19:44 05/15/19 08:59 Ferrous Sulfate (Feosol) 325 mg THREE TIMES A DAY ORAL 05/08/19 18:00 06/07/19 17:59 05/15/19 12:58 Fluticasone Propionate (Flonase) 1 spray TWICE A DAY NASAL 05/14/19 18:00 06/13/19 17:59 05/15/19 09:06 Gabapentin (Neurontin) 300 mg THREE TIMES A DAY ORAL 05/07/19 13:00 06/05/19 08:59 05/15/19 12:58 Irbesartan (Avapro) 300 mg DAILY ORAL 05/11/19 09:00 06/10/19 08:59 05/15/19 09:00 Morphine Sulfate (Morphine Sulfate) 2 mg Q8H PRN IVP Severe Pain (Pain Scale 7-10) 05/13/19 20:00 05/20/19 19:59 05/15/19 10:04 Pantoprazole (Protonix) 40 mg EVERY 12 HOURS ORAL 05/07/19 21:00 06/05/19 20:59 05/15/19 09:00 Piperacillin Sod/ Tazobactam Sod 3.375 gm/Sodium Chloride 110 ml @ 27.5 mls/hr Q8H IVPB 05/14/19 12:00 05/21/19 11:59 05/15/19 12:58 Potassium Chloride (K-Dur) 40 meq DAILY ORAL 05/15/19 12:45 06/14/19 12:44 05/15/19 13:10 Cortney Jackson M.D. May 15, 2019 14:35
--- NOTE | 2019-05-15 15:40 | NUR ---
NURSE NOTES: Dr. Lawrence made aware of 4 beats of Vtach last night, per MD , aware, okay to transfer. CN made aware of transfer order per Dr. Lawrence.
[2019-05-15 16:00] VITALS: BP 121/83
--- NOTE | 2019-05-15 16:29 | NUR ---
CASE MANAGEMENT:REVIEW 05/14/19 SI: COPD. CHF. PNEUMONIA OBESITY BMI 62.0 T 97.8 HR 96 RR 21 B/P 09098 SATS 96% ON 2L/NC LABS: CO2 40 CR 1.4 GLU 120 CA 8.2 AST 13 IS: IV MORPHINE Q8HRS PRN AVAPRO PO QD DUONEB HHN Q4HRS RTC CHLORTHALIDONE PO QD DIGOXIN PO QD ELIQUIS PO BID COREG PO Q12 CARDURA PO QD K-DUR PO BID : TELEMETRY STATUS DCP: FROM HOME 05/15/19 SI: COPD. CHF. PNEUMONIA OBESITY BMI 62.0 T 97 HR 96 RR 20 B/P 106/84 SATS 88% ON RA LABS: K 3.4 CO2 40 CR 1.5 GLU 135 CA 8 IS: IV MORPHINE Q8HRS PRN AVAPRO PO QD DUONEB HHN Q4HRS RTC CHLORTHALIDONE PO QD DIGOXIN PO QD ELIQUIS PO BID COREG PO Q12 CARDURA PO QD K-DUR PO BID : TELEMETRY STATUS DCP: FROM HOME
[2019-05-15] MEDS ORDERED: Vancomycin 1.25gm/NS Premix IVPB SCH (18:00)
--- NOTE | 2019-05-15 18:00 | Pulmonology Progress Note ---
Assessment/Plan Assessment/Plan Congestive heart failure Hypertension Chronic Obstructive Pulmonary Disease Obesity Obstructive Sleep Apnea Hypertension Diabetes cough Plan - continue - probably not enought fluid to tap - monitor off steroids - CXR 1-2 days -continue lonase and ppi - HHN - O2 PRN - noninvasive ventilation PRN/QHS - ISS - PPX -d/c planning Subjective ROS Limited/Unobtainable: Yes Allergies: Coded Allergies: RIVAROXABAN (Verified Allergy, Unknown, 04/05/19) Subjective better today stillwtih cough no cp nv or bleeding oob using cpap at night no fever toleraeing po remains on o2 Objective Last 24 Hour Vital Signs Date Time Temp Pulse Resp B/P (MAP) Pulse Ox O2 Delivery O2 Flow Rate FiO2 05/15/19 16:00 97.7 105 22 121/83 (96) 94 05/15/19 16:00 97 05/15/19 15:22 98 22 98 Nasal Cannula 3.0 32 94 22 97 05/15/19 12:00 71 05/15/19 12:00 99.5 76 22 139/65 (89) 93 05/15/19 11:11 105 22 98 Nasal Cannula 3.0 32 105 22 95 05/15/19 09:00 160/98 05/15/19 09:00 101 160/98 05/15/19 08:59 101 05/15/19 08:00 99.5 101 22 160/98 (118) 95 05/15/19 08:00 107 05/15/19 07:44 94 Bi-Pap 30 05/15/19 07:41 98 28 91 Facial 30 102 29 94 Bi-Pap 30 05/15/19 04:00 110 05/15/19 04:00 97.4 90 20 141/98 (112) 96 05/15/19 03:34 82 25 94 Facial 30 84 15 95 Bi-Pap 30 05/15/19 00:49 165/125 05/15/19 00:00 96 05/15/19 00:00 97.0 90 20 106/84 (91) 88 05/14/19 23:53 88 30 93 Facial 30 05/14/19 23:53 88 18 94 Nasal Cannula 3.0 32 86 20 92 05/14/19 21:00 75 116/55 05/14/19 21:00 Nasal Cannula 2.0 1/11/20 20:00 97.8 96 21 136/98 (111) 96 05/14/19 20:00 99 05/14/19 19:55 92 Nasal Cannula 2.0 28 05/14/19 19:55 92 18 94 Nasal Cannula 3.0 32 90 20 92 Intake and Output 05/14/19 05/15/19 19:00 07:00 Intake Total 1680 ml Output Total 1700 ml 1600 ml Balance -20 ml -1600 ml Intake Oral 1680 ml Output Urine Total 1700 ml 1600 ml # Bowel Movements 1 General Appearance: WD/WN Respiratory/Chest: rhonchi Cardiovascular: normal rate, regular rhythm Abdomen: soft, non tender, no organomegaly Neurologic/Psychiatric: alert, oriented x 3, responsive Lymphatic: no neck adenopathy Laboratory Tests 05/15/19 08:55: Sodium Level 144, Potassium Level 3.4L, Chloride Level 103, Carbon Dioxide Level 40H, Anion Gap 1L, Blood Urea Nitrogen 16, Creatinine 1.5H, Estimat Glomerular Filtration Rate > 60, Glucose Level 135H, Calcium Level 8.0L, Total Bilirubin 0.4, Aspartate Amino Transf (AST/SGOT) 16, Alanine Aminotransferase ( ALT/SGPT) 16, Alkaline Phosphatase 51, Total Protein 6.1L, Albumin 2.8L, Globulin 3.3, Albumin/Globulin Ratio 0.8L, Vancomycin Level Trough 23.3H Current Medications Medications (Trade) Dose Ordered Sig/David Route PRN Reason Start Time Stop Time Status Last Admin Dose Admin Acetaminophen (Tylenol) 650 mg Q6H PRN ORAL Mild Pain/Temp > 100.5 05/07/19 12:00 06/04/19 11:59 05/15/19 09:01 Albuterol/ Ipratropium (Albuterol/ Ipratropium) 3 ml Q4HRT HHN 05/11/19 00:15 05/16/19 00:14 05/15/19 15:21 Apixaban (Eliquis) 5 mg BID ORAL 05/09/19 23:15 06/08/19 23:14 05/15/19 17:52 Atorvastatin Calcium (Lipitor) 40 mg BEDTIME ORAL 05/07/19 21:00 06/04/19 20:59 05/14/19 21:01 Carvedilol (Coreg) 25 mg Q12HR ORAL 05/09/19 21:00 06/08/19 20:59 05/15/19 09:00 Chlorthalidone (Chlorthalidone) 25 mg DAILY ORAL 05/10/19 19:45 06/09/19 19:44 05/15/19 09:00 Clonidine HCl (Catapres Tab) 0.1 mg Q8H PRN ORAL For High Blood Pressure 05/10/19 14:00 06/09/19 13:59 05/15/19 00:49 Digoxin (Lanoxin) 0.125 mg DAILY ORAL 05/10/19 09:00 06/09/19 08:59 05/15/19 08:59 Docusate Sodium (Colace) 100 mg THREE TIMES A DAY ORAL 05/07/19 13:00 06/05/19 12:59 05/15/19 17:52 Doxazosin Mesylate (Cardura) 2 mg DAILY ORAL 05/07/19 19:45 06/06/19 19:44 05/15/19 08:59 Ferrous Sulfate (Feosol) 325 mg THREE TIMES A DAY ORAL 05/08/19 18:00 06/07/19 17:59 05/15/19 17:52 Fluticasone Propionate (Flonase) 1 spray TWICE A DAY NASAL 05/14/19 18:00 06/13/19 17:59 05/15/19 17:51 Gabapentin (Neurontin) 300 mg THREE TIMES A DAY ORAL 05/07/19 13:00 06/05/19 08:59 05/15/19 17:52 Irbesartan (Avapro) 300 mg DAILY ORAL 05/11/19 09:00 06/10/19 08:59 05/15/19 09:00 Morphine Sulfate (Morphine Sulfate) 2 mg Q8H PRN IVP Severe Pain (Pain Scale 7-10) 05/13/19 20:00 05/20/19 19:59 05/15/19 10:04 Pantoprazole (Protonix) 40 mg EVERY 12 HOURS ORAL 05/07/19 21:00 06/05/19 20:59 05/15/19 09:00 Piperacillin Sod/ Tazobactam Sod 3.375 gm/Sodium Chloride 110 ml @ 27.5 mls/hr Q8H IVPB 05/14/19 12:00 05/21/19 11:59 05/15/19 12:58 Potassium Chloride (K-Dur) 40 meq DAILY ORAL 05/15/19 12:45 06/14/19 12:44 05/15/19 13:10 Vanessa Coleman DO May 15, 2019 18:00
--- NOTE | 2019-05-15 19:15 | NUR ---
HAND-OFF: Report given to KEESHA Baca.
--- NOTE | 2019-05-15 19:18 | NUR ---
NURSE NOTES: Received a report from KEESHA Rose. Pt is in stable condition. AAOX4. Able to make needs known. Uses nasal cannula 3l. No pain/discomfort noted. IV site is patent and intact. Bed in lowest position. Bed alarm is on. Call light within reach. Will continue to monitor.
--- NOTE | 2019-05-15 19:48 | General Progress Note ---
Assessment/Plan Assessment/Plan: S: I may can go home O: seems comfortable. Ambulating in the room with assistance. 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 Acute COPD (chronic obstructive pulmonary disease) 3. Morbid obesity 4. HTN 5. Multiple joint OA 6. Afib-RVR 7. NATASHA 8. Refusal of Care Plan: stool for ob start iron supplement notes form PT reviewed. Patient continues denying participation in PT optimise BP medication Disposition to plan of care Subjective Allergies: Coded Allergies: RIVAROXABAN (Verified Allergy, Unknown, 04/05/19) Objective Last 24 Hour Vital Signs Date Time Temp Pulse Resp B/P (MAP) Pulse Ox O2 Delivery O2 Flow Rate FiO2 05/15/19 16:00 97.7 105 22 121/83 (96) 94 05/15/19 16:00 97 05/15/19 15:22 98 22 98 Nasal Cannula 3.0 32 94 22 97 05/15/19 12:00 71 05/15/19 12:00 99.5 76 22 139/65 (89) 93 05/15/19 11:11 105 22 98 Nasal Cannula 3.0 32 105 22 95 05/15/19 09:00 160/98 05/15/19 09:00 101 160/98 05/15/19 08:59 101 05/15/19 08:00 99.5 101 22 160/98 (118) 95 05/15/19 08:00 107 05/15/19 07:44 94 Bi-Pap 30 05/15/19 07:41 98 28 91 Facial 30 102 29 94 Bi-Pap 30 05/15/19 04:00 110 05/15/19 04:00 97.4 90 20 141/98 (112) 96 05/15/19 03:34 82 25 94 Facial 30 84 15 95 Bi-Pap 30 05/15/19 00:49 165/125 05/15/19 00:00 96 05/15/19 00:00 97.0 90 20 106/84 (91) 88 05/14/19 23:53 88 30 93 Facial 30 05/14/19 23:53 88 18 94 Nasal Cannula 3.0 32 86 20 92 05/14/19 21:00 75 116/55 05/14/19 21:00 Nasal Cannula 2.0 05/14/19 20:00 97.8 96 21 136/98 (111) 96 05/14/19 20:00 99 05/14/19 19:55 92 Nasal Cannula 2.0 28 05/14/19 19:55 92 18 94 Nasal Cannula 3.0 32 90 20 92 Intake and Output 05/14/19 05/15/19 18:59 06:59 Intake Total 1680 ml Output Total 1700 ml 1600 ml Balance -20 ml -1600 ml Intake Oral 1680 ml Output Urine Total 1700 ml 1600 ml # Bowel Movements 1 Laboratory Tests 05/15/19 08:55: Sodium Level 144, Potassium Level 3.4L, Chloride Level 103, Carbon Dioxide Level 40H, Anion Gap 1L, Blood Urea Nitrogen 16, Creatinine 1.5H, Estimat Glomerular Filtration Rate > 60, Glucose Level 135H, Calcium Level 8.0L, Total Bilirubin 0.4, Aspartate Amino Transf (AST/SGOT) 16, Alanine Aminotransferase ( ALT/SGPT) 16, Alkaline Phosphatase 51, Total Protein 6.1L, Albumin 2.8L, Globulin 3.3, Albumin/Globulin Ratio 0.8L, Vancomycin Level Trough 23.3H Height (Feet): 5 Height (Inches): 10.00 Weight (Pounds): 432 Desirae Haro MD May 15, 2019 19:48
[2019-05-15 20:00] VITALS: BP 168/101
--- NOTE | 2019-05-15 21:22 | NUR ---
NURSE NOTES: received patient from KEESHA Baca patient in stable condition, AOx4, on O2@3L n/c, denies pain at this time, no diagnostic cardiac sonographer, patient to be transferred to [facility] [place], bed low&locked, side rails upx3,m call light within reach, will continue to monitor and reassess
--- NOTE | 2019-05-15 21:23 | NUR ---
HAND-OFF: Report given to KEESHA Oscar.
[2019-05-15] MEDS: Atorvastatin 20mg tab ORAL SCH (21:30)
--- NOTE | 2019-05-15 22:57 | Cardiology Progress Note ---
Assessment/Plan Assessment/Plan 1. Paroxysmal atrial fibrillation, continue digoxin and carvedilol as well as Eliquis in face of CHADS-VASC score of 2. 2. Dyspnea, most likely acute on chronic HFnlEF due to combination of HTN, CKD and obesity, there is also element of obesity hypoventilation syndrome, no prior hx of tobacco use. Continue gentle diuresis and carvedilol. 2. Morbid obesity. 3. CKD, creat up to 1.5, DC thiazide diuretics, lower Irbesartan dose. 4. DM, continue atorvastatin. 5. Hx of non-sustained ventricular tachycardia, given normal EF, would like to proceed with B-blockers. 6. HTN, well controlled, continue thiazide diuretics, cardura and Irbesartan. Subjective Subjective Sinus tachycardia at rate of 109. On NC 2 lit/min. Objective Last 24 Hour Vital Signs Date Time Temp Pulse Resp B/P (MAP) Pulse Ox O2 Delivery O2 Flow Rate FiO2 05/15/19 21:34 168/101 05/15/19 21:31 109 168/101 05/15/19 21:00 Nasal Cannula 2.0 05/15/19 20:16 93 Nasal Cannula 3.0 32 05/15/19 20:00 98.2 109 20 168/101 (123) 94 05/15/19 16:00 97.7 105 22 121/83 (96) 94 05/15/19 16:00 97 05/15/19 15:22 98 22 98 Nasal Cannula 3.0 32 94 22 97 05/15/19 12:00 71 05/15/19 12:00 99.5 76 22 139/65 (89) 93 05/15/19 11:11 105 22 98 Nasal Cannula 3.0 32 105 22 95 05/15/19 09:00 160/98 05/15/19 09:00 101 160/98 05/15/19 08:59 101 05/15/19 08:00 99.5 101 22 160/98 (118) 95 05/15/19 08:00 107 05/15/19 07:44 94 Bi-Pap 30 05/15/19 07:41 98 28 91 Facial 30 102 29 94 Bi-Pap 30 05/15/19 04:00 110 05/15/19 04:00 97.4 90 20 141/98 (112) 96 05/15/19 03:34 82 25 94 Facial 30 84 15 95 Bi-Pap 30 05/15/19 00:49 165/125 05/15/19 00:00 96 05/15/19 00:00 97.0 90 20 106/84 (91) 88 05/14/19 23:53 88 30 93 Facial 30 05/14/19 23:53 88 18 94 Nasal Cannula 3.0 32 86 20 92 Intake and Output 05/14/19 05/15/19 19:00 07:00 Intake Total 1680 ml Output Total 1700 ml 1600 ml Balance -20 ml -1600 ml Intake Oral 1680 ml Output Urine Total 1700 ml 1600 ml # Bowel Movements 1 2D Echo: Normal EF, Mod LVH, Mild LAE, RVSP 37, Grade II LVDD (pseudonormal Physio) Laboratory Tests Test 05/15/19 08:55 Sodium Level 144 MMOL/L (136-145) Potassium Level 3.4 MMOL/L (3.5-5.1) L Chloride Level 103 MMOL/L (98-107) Carbon Dioxide Level 40 MMOL/L (21-32) H Anion Gap 1 mmol/L (5-15) L Blood Urea Nitrogen 16 mg/dL (7-18) Creatinine 1.5 MG/DL (0.55-1.30) H Estimat Glomerular Filtration Rate > 60 mL/min (>60) Glucose Level 135 MG/DL (74-106) H Calcium Level 8.0 MG/DL (8.5-10.1) L Total Bilirubin 0.4 MG/DL (0.2-1.0) Aspartate Amino Transf (AST/SGOT) 16 U/L (15-37) Alanine Aminotransferase (ALT/SGPT) 16 U/L (12-78) Alkaline Phosphatase 51 U/L (46-116) Total Protein 6.1 G/DL (6.4-8.2) L Albumin 2.8 G/DL (3.4-5.0) L Globulin 3.3 g/dL Albumin/Globulin Ratio 0.8 (1.0-2.7) L Vancomycin Level Trough 23.3 ug/mL (5.0-12.0) H Objective HEENT: NC/AT. EOMI. Anicteric, no pallor. + obesity Neck: JVP <5 cm, no carotid bruit. Cardiovascular: Irregularly irregular rhythm, Normal S1 and S2. No murmurs, gallops or rubs Resp: Diminished BS both lungs. Abdomen: Abdomen is soft, nondistended. Nontender, + BS Extremities: No edema, clubbing or cyanosis. Sandor Lawrence MD May 15, 2019 22:57
[2019-05-16] MEDS: Morphine Sulfate 2mg/ml Inj(IV/IM USE ONLY) IVP PRN ×2 (03:52→12:42)
[2019-05-16] MEDS: Piperacillin/Tazobactam 3.375 GM in NS 110 ML IVPB SCH ×3 (03:54→21:22)
[2019-05-16 04:00] VITALS: BP 128/61
--- NOTE | 2019-05-16 07:14 | NUR ---
HAND-OFF: Report given to KEESHA Rose. Pt stable.
--- NOTE | 2019-05-16 07:33 | NUR ---
NURSE NOTES: Received report from KEESHA Krueger. Patient in bed resting, no active s/s cardiac, respiratory distress noticed at this time. Patient on 3L oxygen via NC. Patient AOX4, SR with HR 81, library monitor removed due to transfer order to [facility]-surg. IV on right FA 24G, asymptomatic, patent, intact. Bed in lowest position, side rails upx2, call light within reach. Will continue to monitor.
[2019-05-16 08:00] VITALS: BP 159/93
[2019-05-16 08:03] LABS: ALANINE AMINOTRANSFERASE 17 U/L (12-78); ALBUMIN 2.7 G/DL (3.4-5.0); ALBUMIN/GLOBULIN RATIO 0.8 (1.0-2.7); ALKALINE PHOSPHATASE 52 U/L (46-116); ANION GAP 2 mmol/L (5-15); ASPARTATE AMINO TRANSFERASE 14 U/L (15-37); BILIRUBIN,TOTAL 0.4 MG/DL (0.2-1.0); BLOOD UREA NITROGEN 16 mg/dL (7-18); CALCIUM 7.8 MG/DL (8.5-10.1); CARBON DIOXIDE 39 MMOL/L (21-32); CHLORIDE 104 MMOL/L (98-107); CREATININE 1.5 MG/DL (0.55-1.30); POTASSIUM 3.4 MMOL/L (3.5-5.1); SODIUM 146 MMOL/L (136-145)
[2019-05-16] MEDS: Doxazosin 1mg Tab ORAL SCH (08:36)
[2019-05-16] MEDS: Eliquis 5mg tablet ORAL SCH ×2 (08:37→17:50)
[2019-05-16] MEDS: Irbesartan 150mg tablet ORAL SCH (08:37)
[2019-05-16] MEDS: Docusate 100mg cap ORAL SCH ×3 (08:37→17:50)
[2019-05-16] MEDS: Digoxin 0.125mg tab ORAL SCH (08:38)
[2019-05-16] MEDS: Flonase Nasal Inhaler 16gm NASAL SCH ×2 (08:38→17:50)
[2019-05-16] MEDS: Carvedilol 25mg Tab ORAL SCH ×2 (08:38→21:21)
[2019-05-16 08:55] LABS: PHOSPHORUS 4.4 MG/DL (2.5-4.9)
--- NOTE | 2019-05-16 09:32 | Pulmonology Progress Note ---
Assessment/Plan Assessment/Plan Congestive heart failure Hypertension Chronic Obstructive Pulmonary Disease Obesity Obstructive Sleep Apnea Hypertension Diabetes Plan - spot dose diuresis, 40 mg IV x 1 - replete potassium - monitor off steroids - CXR repeat - HHN - O2 PRN - noninvasive ventilation PRN/QHS - ISS - PPX Subjective ROS Limited/Unobtainable: No Interval Events: feels more short of breath. Can't lay flat. no cough Constitutional: Reports: no symptoms HEENT: Repors: no symptoms Respiratory: Reports: shortness of breath, dyspnea on exertion Cardiovascular: Reports: no symptoms Gastrointestinal/Abdominal: Reports: no symptoms Genitourinary: Reports: no symptoms Neurologic: Reports: no symptoms Psychiatric: Reports: no symptoms Skin: Reports: no symptoms Allergies: Coded Allergies: RIVAROXABAN (Verified Allergy, Unknown, 04/05/19) Objective Last 24 Hour Vital Signs Date Time Temp Pulse Resp B/P (MAP) Pulse Ox O2 Delivery O2 Flow Rate FiO2 05/16/19 08:38 94 05/16/19 08:38 94 159/93 05/16/19 08:37 159/93 05/16/19 08:21 91 Nasal Cannula 3.0 32 05/16/19 08:00 98.9 94 20 159/93 (115) 93 05/16/19 04:15 92 3.0 32 05/16/19 04:00 98.9 81 20 128/61 (83) 90 05/16/19 03:05 80 18 95 Facial 30 05/16/19 01:00 82 16 93 Facial 30 05/15/19 23:09 80 17 93 Facial 30 86 25 96 Bi-Pap 30 05/15/19 21:34 168/101 05/15/19 21:31 109 168/101 05/15/19 21:00 Nasal Cannula 2.0 05/15/19 20:52 80 17 93 Bi-Pap 30 05/15/19 20:16 93 Nasal Cannula 3.0 32 05/15/19 20:00 98.2 109 20 168/101 (123) 94 05/15/19 16:00 97.7 105 22 121/83 (96) 94 05/15/19 16:00 97 05/15/19 15:22 98 22 98 Nasal Cannula 3.0 32 94 22 97 05/15/19 12:00 71 1/12/20 12:00 99.5 76 22 139/65 (89) 93 05/15/19 11:11 105 22 98 Nasal Cannula 3.0 32 105 22 95 Intake and Output 05/15/19 05/16/19 19:00 07:00 Intake Total 480 ml Output Total 1500 ml 1000 ml Balance -1020 ml -1000 ml Intake Oral 480 ml Output Urine Total 1500 ml 1000 ml General Appearance: other - mild distress HEENT: atraumatic, anicteric, mucous membranes moist Respiratory/Chest: crackles/rales Cardiovascular: normal rate, regular rhythm Abdomen: soft, non tender, non distended Extremities: no cyanosis, no clubbing Microbiology Date/Time Source Procedure Growth Status 05/14/19 09:55 Blood Blood Culture - Preliminary NO GROWTH AFTER 24 HOURS Resulted 05/14/19 09:40 Blood Blood Culture - Preliminary NO GROWTH AFTER 24 HOURS Resulted Laboratory Tests 05/16/19 07:19: Sodium Level 146H, Potassium Level 3.4L, Chloride Level 104, Carbon Dioxide Level 39H, Anion Gap 2L, Blood Urea Nitrogen 16, Creatinine 1.5H, Estimat Glomerular Filtration Rate > 60, Glucose Level 146H, Calcium Level 7.8L, Total Bilirubin 0.4, Aspartate Amino Transf (AST/SGOT) 14L, Alanine Aminotransferase ( ALT/SGPT) 17, Alkaline Phosphatase 52, Total Protein 6.1L, Albumin 2.7L, Globulin 3.4, Albumin/Globulin Ratio 0.8L 05/16/19 07:25: Phosphorus Level 4.4, Magnesium Level 2.1 Current Medications Medications (Trade) Dose Ordered Sig/David Route PRN Reason Start Time Stop Time Status Last Admin Dose Admin Acetaminophen (Tylenol) 650 mg Q6H PRN ORAL Mild Pain/Temp > 100.5 05/07/19 12:00 06/04/19 11:59 05/15/19 09:01 Apixaban (Eliquis) 5 mg BID ORAL 05/09/19 23:15 06/08/19 23:14 05/16/19 08:37 Atorvastatin Calcium (Lipitor) 40 mg BEDTIME ORAL 05/07/19 21:00 06/04/19 20:59 05/15/19 21:30 Carvedilol (Coreg) 25 mg Q12HR ORAL 05/09/19 21:00 06/08/19 20:59 05/16/19 08:38 Clonidine HCl (Catapres Tab) 0.1 mg Q8H PRN ORAL For High Blood Pressure 05/10/19 14:00 06/09/19 13:59 05/15/19 21:34 Digoxin (Lanoxin) 0.125 mg DAILY ORAL 05/10/19 09:00 06/09/19 08:59 05/16/19 08:38 Docusate Sodium (Colace) 100 mg THREE TIMES A DAY ORAL 05/07/19 13:00 06/05/19 12:59 05/16/19 08:37 Doxazosin Mesylate (Cardura) 2 mg DAILY ORAL 05/07/19 19:45 06/06/19 19:44 05/16/19 08:36 Ferrous Sulfate (Feosol) 325 mg THREE TIMES A DAY ORAL 05/08/19 18:00 06/07/19 17:59 05/16/19 08:37 Fluticasone Propionate (Flonase) 1 spray TWICE A DAY NASAL 05/14/19 18:00 06/13/19 17:59 05/16/19 08:38 Furosemide (Lasix) 40 mg ONCE ONCE IV 05/16/19 09:30 05/16/19 09:31 UNV Gabapentin (Neurontin) 300 mg THREE TIMES A DAY ORAL 05/07/19 13:00 06/05/19 08:59 05/16/19 08:38 Irbesartan (Avapro) 75 mg DAILY ORAL 05/16/19 09:00 06/15/19 08:59 05/16/19 08:37 Morphine Sulfate (Morphine Sulfate) 2 mg Q8H PRN IVP Severe Pain (Pain Scale 7-10) 05/13/19 20:00 05/20/19 19:59 05/16/19 03:52 Pantoprazole (Protonix) 40 mg EVERY 12 HOURS ORAL 05/07/19 21:00 06/05/19 20:59 05/16/19 08:38 Piperacillin Sod/ Tazobactam Sod 3.375 gm/Sodium Chloride 110 ml @ 27.5 mls/hr Q8H IVPB 05/14/19 12:00 05/21/19 11:59 05/16/19 03:54 Potassium Chloride (K-Dur) 40 meq DAILY ORAL 05/15/19 12:45 06/14/19 12:44 05/16/19 08:36 Jass Hartman MD May 16, 2019 09:32
--- NOTE | 2019-05-16 10:48 | Nephrology Progress Note ---
Assessment/Plan Problem List: (1) Renal failure (2) Obesity, morbid, BMI 50 or higher (3) COPD (chronic obstructive pulmonary disease) (4) Electrolyte imbalance Assessment (1) Hypokalemia (2) CHF (congestive heart failure) (3) Renal failure (4) Obesity, morbid, BMI 50 or higher (5) CO2 retention (6) COPD (chronic obstructive pulmonary disease) elevated Cr likely due to diuresis Obesity , NATASHA AT fib with FVR HTN Congestive heart failure, likely diastolic dysfunction. EF 60% Recurrent NSVT. No syncope. Hypertension. Morbid obesity. COPD. Lipidemia. Plan K supplement stop NSAIDs UA Monitor Cr rising Keep BP in check Monitor lytes check B12 and Folic acid Diamox PO as needed per orders per cardio and pulmonary taper steroids as possible Subjective ROS Limited/Unobtainable: No Constitutional: Reports: malaise, weakness Objective Objective Last 24 Hour Vital Signs Date Time Temp Pulse Resp B/P (MAP) Pulse Ox O2 Delivery O2 Flow Rate FiO2 05/16/19 08:38 94 05/16/19 08:38 94 159/93 05/16/19 08:37 159/93 05/16/19 08:21 91 Nasal Cannula 3.0 32 05/16/19 08:00 98.9 94 20 159/93 (115) 93 05/16/19 04:15 92 3.0 32 05/16/19 04:00 98.9 81 20 128/61 (83) 90 05/16/19 03:05 80 18 95 Facial 30 05/16/19 01:00 82 16 93 Facial 30 05/15/19 23:09 80 17 93 Facial 30 86 25 96 Bi-Pap 30 05/15/19 21:34 168/101 05/15/19 21:31 109 168/101 05/15/19 21:00 Nasal Cannula 2.0 05/15/19 20:52 80 17 93 Bi-Pap 30 05/15/19 20:16 93 Nasal Cannula 3.0 32 05/15/19 20:00 98.2 109 20 168/101 (123) 94 05/15/19 16:00 97.7 105 22 121/83 (96) 94 05/15/19 16:00 97 05/15/19 15:22 98 22 98 Nasal Cannula 3.0 32 94 22 97 05/15/19 12:00 71 05/15/19 12:00 99.5 76 22 139/65 (89) 93 05/15/19 11:11 105 22 98 Nasal Cannula 3.0 32 105 22 95 Intake and Output 05/15/19 05/16/19 19:00 07:00 Intake Total 480 ml Output Total 1500 ml 1000 ml Balance -1020 ml -1000 ml Intake Oral 480 ml Output Urine Total 1500 ml 1000 ml Laboratory Tests 05/16/19 07:19: Sodium Level 146H, Potassium Level 3.4L, Chloride Level 104, Carbon Dioxide Level 39H, Anion Gap 2L, Blood Urea Nitrogen 16, Creatinine 1.5H, Estimat Glomerular Filtration Rate > 60, Glucose Level 146H, Calcium Level 7.8L, Total Bilirubin 0.4, Aspartate Amino Transf (AST/SGOT) 14L, Alanine Aminotransferase ( ALT/SGPT) 17, Alkaline Phosphatase 52, Total Protein 6.1L, Albumin 2.7L, Globulin 3.4, Albumin/Globulin Ratio 0.8L 05/16/19 07:25: Phosphorus Level 4.4, Magnesium Level 2.1 Height (Feet): 5 Height (Inches): 10.00 Weight (Pounds): 432 General Appearance: no apparent distress Cardiovascular: tachycardia Respiratory/Chest: decreased breath sounds Abdomen: soft, other - obese Objective no change Bebeto Yin MD May 16, 2019 10:48
--- NOTE | 2019-05-16 11:24 | NUR ---
RD ASSESSMENT & RECOMMENDATIONS SEE CARE ACTIVITY FOR COMPLETE ASSESSMENT DAILY ESTIMATED NEEDS: Needs based on Cardiac, Pulmonary, morbid obese; 103kg adj 20-25 kcals/kg 2060- 2575 total kcals 1-1.5 g protein/kg 103- 155 g total protein Fluid per MD- CHF on lasix mL/kg total fluid mLs NUTRITION DIAGNOSIS: * Morbid obesity R/T life style factors? 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 as evidenced by BMI >50. * Altered nutrition related lab values R/T pre-diabetes as evidenced by A1C of 6.5. CURRENT DIET:Cardiac PO DIET RECOMMENDATIONS: CARDIAC + CCHO MED ADDITIONAL RECOMMENDATIONS: 1) Standing weight for accurate CBW- daily wts given CHF dx 2) Rec adding CCHO MED to diet order: A1C 6.5 -> monitor BGs, need for hypoglycemics 3) Diet ed on heart healthy diet + wt control provided on 05/10 . .
[2019-05-16 12:00] VITALS: BP 160/74
--- NOTE | 2019-05-16 12:37 | Diagnostic Imaging Report ---
Indication: Dyspnea Technique: One view of the chest Comparison: 05/14/2019 Findings: Body habitus limits evaluation. Cardiomegaly, elevated right hemidiaphragm, bilateral interstitial congestion, possible left pleural effusion persists. Interstitial congestion may be minimally improved. Impression: Possible slight improvement of interstitial congestion. Otherwise little prover 2 days, findings as noted
--- NOTE | 2019-05-16 13:45 | NUR ---
PT NOTE Attempted to see patient for PT treatment. Patient declining to participate with PT treatment, c/o weakness, states he has difficulty moving. Rose THAO notified, will follow up tomorrow.
--- NOTE | 2019-05-16 14:01 | General Progress Note ---
Assessment/Plan Assessment/Plan: S: I can not go home O: seems comfortable. exertional sob with minimal activity. Ambulating in the room with assistance. Physical Exam General Appearance: alert, GCS 15, obese, Chronically Ill Head: normocephalic Eyes: bilateral eye PERRL ENT: TMs + canals normal, uvula midline Neck: full range of motion Respiratory : lungs clear, decreased breath sounds Cardiovascular #1: edema - 1+ Edema Gastrointestinal: normal inspection, normal bowel sounds, non tender Musculoskeletal: normal inspection Neurologic: alert, motor strength/tone normal, fiscal accountant III-XII nml as tested, oriented x3 Psychiatric: normal inspection Skin: other - Bilateral scaly rash to the lower extremities Labs and Meds: reviewed and reconciled Assessment/Plan: 1. Acute COPD (chronic obstructive pulmonary disease) 3. Morbid obesity 4. HTN 5. Multiple joint OA 6. Afib-RVR 7. NATASHA 8. Refusal of Care 9. ARF Plan: stool for ob start iron supplement notes form PT reviewed. Patient continues denying participation in PT optimise BP medication Disposition to [facility] Subjective Allergies: Coded Allergies: RIVAROXABAN (Verified Allergy, Unknown, 04/05/19) Objective Last 24 Hour Vital Signs Date Time Temp Pulse Resp B/P (MAP) Pulse Ox O2 Delivery O2 Flow Rate FiO2 05/16/19 12:00 98.1 98 20 160/74 (102) 100 05/16/19 08:38 94 05/16/19 08:38 94 159/93 05/16/19 08:37 159/93 05/16/19 08:21 91 Nasal Cannula 3.0 32 05/16/19 08:00 98.9 94 20 159/93 (115) 93 05/16/19 04:15 92 3.0 32 05/16/19 04:00 98.9 81 20 128/61 (83) 90 05/16/19 03:05 80 18 95 Facial 30 05/16/19 01:00 82 16 93 Facial 30 05/15/19 23:09 80 17 93 Facial 30 86 25 96 Bi-Pap 30 05/15/19 21:34 168/101 05/15/19 21:31 109 168/101 05/15/19 21:00 Nasal Cannula 2.0 05/15/19 20:52 80 17 93 Bi-Pap 30 05/15/19 20:16 93 Nasal Cannula 3.0 32 05/15/19 20:00 98.2 109 20 168/101 (123) 94 05/15/19 16:00 97.7 105 22 121/83 (96) 94 05/15/19 16:00 97 05/15/19 15:22 98 22 98 Nasal Cannula 3.0 32 94 22 97 Intake and Output 05/15/19 05/16/19 19:00 07:00 Intake Total 480 ml Output Total 1500 ml 1000 ml Balance -1020 ml -1000 ml Intake Oral 480 ml Output Urine Total 1500 ml 1000 ml Laboratory Tests 05/16/19 07:19: Sodium Level 146H, Potassium Level 3.4L, Chloride Level 104, Carbon Dioxide Level 39H, Anion Gap 2L, Blood Urea Nitrogen 16, Creatinine 1.5H, Estimat Glomerular Filtration Rate > 60, Glucose Level 146H, Calcium Level 7.8L, Total Bilirubin 0.4, Aspartate Amino Transf (AST/SGOT) 14L, Alanine Aminotransferase ( ALT/SGPT) 17, Alkaline Phosphatase 52, Total Protein 6.1L, Albumin 2.7L, Globulin 3.4, Albumin/Globulin Ratio 0.8L 05/16/19 07:25: Phosphorus Level 4.4, Magnesium Level 2.1 Height (Feet): 5 Height (Inches): 10.00 Weight (Pounds): 432 Desirae Haro MD May 16, 2019 14:01
--- NOTE | 2019-05-16 14:21 | Infectious Diseases Prog Note ---
Assessment/Plan Problems: (1) Pneumonia Assessment & Plan: with cough productive , fever and SOB, continue zosyn empirically pending sputum culture and monitor CXR . (2) COPD (chronic obstructive pulmonary disease) Assessment & Plan: Due to the above, continue inhalers, antibiotics , close monitor or CXR (3) Obesity, morbid, BMI 50 or higher Assessment & Plan: recommend diet and exercise (4) Renal failure Assessment & Plan: stop vancomycin since level is high , close monitor of renal function , renally dosed meds as per pharmacy , renal is following (5) Fever Assessment & Plan: suspect pneumonia related, rule out sepsis , await blood culture x 2 and sputum culture , continue wide spectrum antibiotics Subjective Constitutional: Reports: no symptoms HEENT: Reports: no symptoms Respiratory: Reports: productive cough Breasts: Reports: no symptoms Cardiovascular: Reports: no symptoms Gastrointestinal/Abdominal: Reports: no symptoms Genitourinary: Reports: no symptoms Neurologic: Reports: no symptoms Psychiatric: Reports: no symptoms Skin: Reports: no symptoms Endocrine: Reports: no symptoms Hematologic: Reports: no symptoms Musculoskeletal: Reports: no symptoms Allergies: Coded Allergies: RIVAROXABAN (Verified Allergy, Unknown, 04/05/19) Objective Vital Signs Last 24 Hour Vital Signs Date Time Temp Pulse Resp B/P (MAP) Pulse Ox O2 Delivery O2 Flow Rate FiO2 05/16/19 12:00 98.1 98 20 160/74 (102) 100 05/16/19 08:38 94 05/16/19 08:38 94 159/93 05/16/19 08:37 159/93 05/16/19 08:21 91 Nasal Cannula 3.0 32 05/16/19 08:00 98.9 94 20 159/93 (115) 93 05/16/19 04:15 92 3.0 32 05/16/19 04:00 98.9 81 20 128/61 (83) 90 05/16/19 03:05 80 18 95 Facial 30 05/16/19 01:00 82 16 93 Facial 30 05/15/19 23:09 80 17 93 Facial 30 86 25 96 Bi-Pap 30 05/15/19 21:34 168/101 05/15/19 21:31 109 168/101 05/15/19 21:00 Nasal Cannula 2.0 05/15/19 20:52 80 17 93 Bi-Pap 30 05/15/19 20:16 93 Nasal Cannula 3.0 32 05/15/19 20:00 98.2 109 20 168/101 (123) 94 05/15/19 16:00 97.7 105 22 121/83 (96) 94 05/15/19 16:00 97 05/15/19 15:22 98 22 98 Nasal Cannula 3.0 32 94 22 97 Height (Feet): 5 Height (Inches): 10.00 Weight (Pounds): 432 General Appearance: WD/WN, no acute distress HEENT: normocephalic, atraumatic, anicteric, mucous membranes moist, PERRL Respiratory/Chest: chest wall non-tender, no respiratory distress, no accessory muscle use, decreased breath sounds, crackles/rales Cardiovascular: normal peripheral pulses, normal rate, regular rhythm, no gallop/murmur, no JVD Abdomen: normal bowel sounds, soft, non tender, no organomegaly, non distended , no mass, no scars Genitourinary: normal external genitalia Extremities: no cyanosis, no clubbing Skin: no rash, no lesions, no ulcers Neurologic/Psychiatric: 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 normal, no motor/sensory deficits, alert, oriented x 3, responsive Lymphatic: no neck adenopathy, no groin adenopathy Musculoskeletal: normal muscle bulk, no effusion Microbiology Date/Time Source Procedure Growth Status 05/14/19 09:55 Blood Blood Culture - Preliminary NO GROWTH AFTER 24 HOURS Resulted 05/14/19 09:40 Blood Blood Culture - Preliminary NO GROWTH AFTER 24 HOURS Resulted Laboratory Tests Test 05/16/19 07:19 05/16/19 07:25 Sodium Level 146 MMOL/L (136-145) H Potassium Level 3.4 MMOL/L (3.5-5.1) L Chloride Level 104 MMOL/L (98-107) Carbon Dioxide Level 39 MMOL/L (21-32) H Anion Gap 2 mmol/L (5-15) L Blood Urea Nitrogen 16 mg/dL (7-18) Creatinine 1.5 MG/DL (0.55-1.30) H Estimat Glomerular Filtration Rate > 60 mL/min (>60) Glucose Level 146 MG/DL (74-106) H Calcium Level 7.8 MG/DL (8.5-10.1) L Total Bilirubin 0.4 MG/DL (0.2-1.0) Aspartate Amino Transf (AST/SGOT) 14 U/L (15-37) L Alanine Aminotransferase (ALT/SGPT) 17 U/L (12-78) Alkaline Phosphatase 52 U/L (46-116) Total Protein 6.1 G/DL (6.4-8.2) L Albumin 2.7 G/DL (3.4-5.0) L Globulin 3.4 g/dL Albumin/Globulin Ratio 0.8 (1.0-2.7) L Phosphorus Level 4.4 MG/DL (2.5-4.9) Magnesium Level 2.1 MG/DL (1.8-2.4) Current Medications Medications (Trade) Dose Ordered Sig/David Route PRN Reason Start Time Stop Time Status Last Admin Dose Admin Acetaminophen (Tylenol) 650 mg Q6H PRN ORAL Mild Pain/Temp > 100.5 05/07/19 12:00 06/04/19 11:59 05/15/19 09:01 Apixaban (Eliquis) 5 mg BID ORAL 05/09/19 23:15 06/08/19 23:14 05/16/19 08:37 Atorvastatin Calcium (Lipitor) 40 mg BEDTIME ORAL 05/07/19 21:00 06/04/19 20:59 05/15/19 21:30 Carvedilol (Coreg) 25 mg Q12HR ORAL 05/09/19 21:00 06/08/19 20:59 05/16/19 08:38 Clonidine HCl (Catapres Tab) 0.1 mg Q8H PRN ORAL For High Blood Pressure 05/10/19 14:00 06/09/19 13:59 05/15/19 21:34 Digoxin (Lanoxin) 0.125 mg DAILY ORAL 05/10/19 09:00 06/09/19 08:59 05/16/19 08:38 Docusate Sodium (Colace) 100 mg THREE TIMES A DAY ORAL 05/07/19 13:00 06/05/19 12:59 05/16/19 12:42 Doxazosin Mesylate (Cardura) 2 mg DAILY ORAL 05/07/19 19:45 06/06/19 19:44 05/16/19 08:36 Ferrous Sulfate (Feosol) 325 mg THREE TIMES A DAY ORAL 05/08/19 18:00 2/4/20 17:59 05/16/19 12:42 Fluticasone Propionate (Flonase) 1 spray TWICE A DAY NASAL 05/14/19 18:00 06/13/19 17:59 05/16/19 08:38 Gabapentin (Neurontin) 300 mg THREE TIMES A DAY ORAL 05/07/19 13:00 06/05/19 08:59 05/16/19 12:42 Irbesartan (Avapro) 75 mg DAILY ORAL 05/16/19 09:00 06/15/19 08:59 05/16/19 08:37 Morphine Sulfate (Morphine Sulfate) 2 mg Q8H PRN IVP Severe Pain (Pain Scale 7-10) 05/13/19 20:00 05/20/19 19:59 05/16/19 12:42 Pantoprazole (Protonix) 40 mg EVERY 12 HOURS ORAL 05/07/19 21:00 06/05/19 20:59 05/16/19 08:38 Piperacillin Sod/ Tazobactam Sod 3.375 gm/Sodium Chloride 110 ml @ 27.5 mls/hr Q8H IVPB 05/14/19 12:00 05/21/19 11:59 05/16/19 12:42 Potassium Chloride (K-Dur) 40 meq BID ORAL 05/16/19 18:00 06/14/19 12:44 Cortney Jackson M.D. May 16, 2019 14:21
--- NOTE | 2019-05-16 14:34 | NUR ---
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 98.7 HR 98 RR 20 B/P 160/74 3L NC O2 SAT @ 98% NA 146 K 3.4 CO2 39 CR 1.5 IS: ZOSYN IV K-DUR PROTONIX LASIX IV X 1 MED/SURG STATUS
[2019-05-16 16:00] VITALS: BP 160/76
--- NOTE | 2019-05-16 19:10 | NUR ---
NURSE NOTES: Per Dr. Hartman, breathing treatment q6h, order noted, entered, carried out. Will continue to monitor.
[2019-05-16] MEDS ORDERED: Albuterol ud Inhalation HHN PRN (19:15)
--- NOTE | 2019-05-16 19:26 | NUR ---
NURSE NOTES: Received report from KEESHA Rose. Patient is in bed, awake and responsive, currently on the BIPAP, breathing regular and unlabored with no s/s of SOB noted. Per morning RNRose, patient requested PRN breathing treatments, orders noted and carried out. Patient is a medsurg patient, but will remain in telemetry. No c/o pain or discomfort noted at this time. IV access is on the RFA, patent, intact, and currently running prescribed antibiotics. Bed is in lowest position, breaks engaged, and call light is within reach. All other needs attended to, patient is stable, will continue to monitor.
--- NOTE | 2019-05-16 19:31 | NUR ---
HAND-OFF: Report given to KEESHA Jensen.
[2019-05-16 20:00] VITALS: BP 153/103
[2019-05-16] MEDS: Atorvastatin 20mg tab ORAL SCH (21:22)
--- NOTE | 2019-05-16 23:52 | Cardiology Progress Note ---
Assessment/Plan Assessment/Plan 1. Paroxysmal atrial fibrillation, continue digoxin and carvedilol as well as Eliquis in face of CHADS-VASC score of 2. 2. Dyspnea, most likely acute on chronic HFnlEF due to combination of HTN, CKD and obesity, there is also element of obesity hypoventilation syndrome, no prior hx of tobacco use. Continue gentle diuresis and carvedilol. 2. Morbid obesity. 3. CKD, creat stable at 1.5,continue Irbesartan. 4. DM, continue atorvastatin. 5. Hx of non-sustained ventricular tachycardia, given normal EF, would like to proceed with B-blockers. 6. HTN, well controlled, optimize BP meds. Subjective Subjective Sinus rhythm at rate of 69. Objective Last 24 Hour Vital Signs Date Time Temp Pulse Resp B/P (MAP) Pulse Ox O2 Delivery O2 Flow Rate FiO2 05/16/19 21:21 69 153/103 05/16/19 20:00 98.1 69 25 153/103 (120) 97 05/16/19 19:04 94 Nasal Cannula 40 05/16/19 19:03 86 17 94 Facial 40 05/16/19 16:00 99.3 110 20 160/76 (104) 94 05/16/19 12:00 98.1 98 20 160/74 (102) 100 05/16/19 08:38 94 05/16/19 08:38 94 159/93 05/16/19 08:37 159/93 05/16/19 08:21 91 Nasal Cannula 3.0 32 05/16/19 08:00 98.9 94 20 159/93 (115) 93 05/16/19 04:15 92 3.0 32 05/16/19 04:00 98.9 81 20 128/61 (83) 90 05/16/19 03:05 80 18 95 Facial 30 05/16/19 01:00 82 16 93 Facial 30 Intake and Output 05/15/19 05/16/19 19:00 07:00 Intake Total 480 ml Output Total 1500 ml 1000 ml Balance -1020 ml -1000 ml Intake Oral 480 ml Output Urine Total 1500 ml 1000 ml 2D Echo: Normal EF, Mod LVH, Mild LAE, RVSP 37, Grade II LVDD (pseudonormal Physio) Laboratory Tests Test 05/16/19 07:19 1/13/20 07:25 Sodium Level 146 MMOL/L (136-145) H Potassium Level 3.4 MMOL/L (3.5-5.1) L Chloride Level 104 MMOL/L (98-107) Carbon Dioxide Level 39 MMOL/L (21-32) H Anion Gap 2 mmol/L (5-15) L Blood Urea Nitrogen 16 mg/dL (7-18) Creatinine 1.5 MG/DL (0.55-1.30) H Estimat Glomerular Filtration Rate > 60 mL/min (>60) Glucose Level 146 MG/DL (74-106) H Calcium Level 7.8 MG/DL (8.5-10.1) L Total Bilirubin 0.4 MG/DL (0.2-1.0) Aspartate Amino Transf (AST/SGOT) 14 U/L (15-37) L Alanine Aminotransferase (ALT/SGPT) 17 U/L (12-78) Alkaline Phosphatase 52 U/L (46-116) Total Protein 6.1 G/DL (6.4-8.2) L Albumin 2.7 G/DL (3.4-5.0) L Globulin 3.4 g/dL Albumin/Globulin Ratio 0.8 (1.0-2.7) L Phosphorus Level 4.4 MG/DL (2.5-4.9) Magnesium Level 2.1 MG/DL (1.8-2.4) Microbiology Date/Time Source Procedure Growth Status 05/14/19 09:55 Blood Blood Culture - Preliminary NO GROWTH AFTER 24 HOURS Resulted 05/14/19 09:40 Blood Blood Culture - Preliminary NO GROWTH AFTER 24 HOURS Resulted Objective HEENT: NC/AT. EOMI. Anicteric, no pallor. + obesity Neck: JVP <5 cm, no carotid bruit. Cardiovascular: Irregularly irregular rhythm, Normal S1 and S2. No murmurs, gallops or rubs Resp: Diminished BS both lungs. Abdomen: Abdomen is soft, nondistended. Nontender, + BS Extremities: No edema, clubbing or cyanosis. Sandor Lawrence MD May 16, 2019 23:52
[2019-05-17] VITALS: BP 144/78
[2019-05-17] MEDS: Morphine Sulfate 2mg/ml Inj(IV/IM USE ONLY) IVP PRN ×3 (00:13→09:13)
--- NOTE | 2019-05-17 00:30 | NUR ---
NURSE NOTES: RN from ER came to the unit asking why the patient in 204 called ER to start an IV on him. RN nor the charge nurse were aware that patient even contacted the ER. The RN from ER input the patients IV. Assessed the patient and the new IV site, noted the site to be intact and patent. Administered PRN pain medication per patients request. Patient remained stable and was compliant.
[2019-05-17 04:00] VITALS: BP 140/72
[2019-05-17] MEDS: Piperacillin/Tazobactam 3.375 GM in NS 110 ML IVPB SCH ×3 (05:57→20:32)
--- NOTE | 2019-05-17 06:00 | NUR ---
NURSE NOTES: Upon entering the patient's room, noted patient was sleeping. Woke patient up to administer the due antibiotic. Also informed the patient that the old IV on his arm that was no longer working needed to come off. Explained to the patient that i will be removing the IV. Patient nodded okay. After i removed the old IV on the patient's LFA, applied pressure to stop the bleeding to properly redress the site. Patient started yelling and saying "What the hell are you doing man." I explained to the patient that i just removed his IV and Im applying pressure until the bleeding is gone so i can bandage it securely. Patient stated "I had IV's removed before and it didn't hurt like that, you're doing that shit on purpose." I explained to the patient respectfully that i only removed the old one because it was not working and it was occluded, which is why it might hurt due to pressure, but once i secure it, it should not hurt anymore. Patient stated "Get the hell out of here or else I'm going to punch you." Explained to the patient once more that i am only taping it securely and i will leave to let him rest. Patient got aggravated and started to grab items to throw. Left the room due to feeling threatened and called security. Multiple security members arrived, explained everything that occurred. Security went into patient's room and spoke to the patient in regards to his behavior. Security was able to calm the patient down a bit. Patient is requesting RN's full name, RN not comfortable giving the information due to patient's severe aggressiveness.
--- NOTE | 2019-05-17 07:45 | NUR ---
NURSE NOTES: pt in bed awake watching TV. pt not on manager monitoring, order to transfer pt to [facility] when a room is available. pt not showing signs of cardiac or respiratory distress at this time. Bed is locked and in lowest position. Call light is within reach. Pt is not complaining of pain at this time. Will continue to follow plan of care.
--- NOTE | 2019-05-17 07:49 | NUR ---
HAND-OFF: Report given to KEESHA Jacinto. Justin in stable condition, plan of care endorsed. Informed RN of the condition of the patient.
[2019-05-17 08:30] VITALS: BP 174/108
[2019-05-17] MEDS: Docusate 100mg cap ORAL SCH ×3 (09:14→18:25)
[2019-05-17] MEDS: Eliquis 5mg tablet ORAL SCH ×2 (09:14→18:25)
[2019-05-17] MEDS: Carvedilol 25mg Tab ORAL SCH ×2 (09:15→20:33)
[2019-05-17] MEDS: Irbesartan 150mg tablet ORAL SCH (09:15)
[2019-05-17] MEDS: Digoxin 0.125mg tab ORAL SCH (09:15)
[2019-05-17] MEDS: Flonase Nasal Inhaler 16gm NASAL SCH ×2 (09:16→18:24)
--- NOTE | 2019-05-17 10:35 | NUR ---
PT WEEKLY PROGRESS NOTE Patient being seen for transfer training, gait training and patient education. Patient able to ambulate 20 x 2 with hand hold assist, slow pace, on O2 via NC. Patient is SBA for transfers. Activity tolerance limited by generalized pain and SOB. Patient will benefit from continued skilled inpatient PT intervention for functional training and endurance training with education in proper breathing, safety awareness and energy conservation.
--- NOTE | 2019-05-17 11:12 | NUR ---
RESPIRATORY NOTES: Patient placed back on bipap per request.
--- NOTE | 2019-05-17 11:27 | Pulmonology Progress Note ---
Assessment/Plan Assessment/Plan Congestive heart failure Hypertension Chronic Obstructive Pulmonary Disease Obesity Obstructive Sleep Apnea Hypertension Diabetes Plan - spot dose diuresis, 40 mg IV x 1 - repeat chem panel tomorrow - monitor off steroids - CXR repeat improved edema - HHN - O2 PRN - noninvasive ventilation PRN/QHS - ISS - PPX Subjective ROS Limited/Unobtainable: Yes Interval Events: Breathing still labored, CXR improved with lasix. On BiPAP now Allergies: Coded Allergies: RIVAROXABAN (Verified Allergy, Unknown, 04/05/19) Objective Last 24 Hour Vital Signs Date Time Temp Pulse Resp B/P (MAP) Pulse Ox O2 Delivery O2 Flow Rate FiO2 05/17/19 09:15 174/108 05/17/19 09:15 82 05/17/19 09:15 82 174/108 05/17/19 08:30 97.3 82 20 174/108 (130) 94 05/17/19 07:06 95 Nasal Cannula 3.0 32 05/17/19 05:48 79 16 93 Facial 40 05/17/19 04:00 98.0 80 25 140/72 (94) 97 05/17/19 03:30 78 18 94 Facial 40 05/17/19 00:23 80 17 95 Facial 40 05/17/19 00:00 98.2 78 25 144/78 (100) 98 05/16/19 21:21 69 153/103 05/16/19 21:00 Nasal Cannula 2.0 05/16/19 20:00 98.1 69 25 153/103 (120) 97 05/16/19 19:04 94 Nasal Cannula 40 05/16/19 19:03 86 17 94 Facial 40 05/16/19 16:00 99.3 110 20 160/76 (104) 94 05/16/19 12:00 98.1 98 20 160/74 (102) 100 Intake and Output 05/16/19 05/17/19 19:00 07:00 Intake Total 1170 ml Output Total 1800 ml Balance -630 ml Intake Oral 1170 ml Output Urine Total 1800 ml # Voids 3 # Bowel Movements 2 General Appearance: no acute distress HEENT: normocephalic, mucous membranes moist Respiratory/Chest: crackles/rales Cardiovascular: normal rate, regular rhythm Abdomen: soft, non tender Extremities: other - edema Current Medications Medications (Trade) Dose Ordered Sig/David Route PRN Reason Start Time Stop Time Status Last Admin Dose Admin Acetaminophen (Tylenol) 650 mg Q6H PRN ORAL Mild Pain/Temp > 100.5 05/07/19 12:00 06/04/19 11:59 05/15/19 09:01 Albuterol Sulfate (Proventil) 2.5 mg Q6H PRN HHN Shortness of Breath 05/16/19 19:15 05/21/19 19:14 Apixaban (Eliquis) 5 mg BID ORAL 05/09/19 23:15 06/08/19 23:14 05/17/19 09:14 Atorvastatin Calcium (Lipitor) 40 mg BEDTIME ORAL 05/07/19 21:00 06/04/19 20:59 05/16/19 21:22 Carvedilol (Coreg) 25 mg Q12HR ORAL 05/09/19 21:00 06/08/19 20:59 05/17/19 09:15 Clonidine HCl (Catapres Tab) 0.1 mg Q8H PRN ORAL For High Blood Pressure 05/10/19 14:00 06/09/19 13:59 05/15/19 21:34 Digoxin (Lanoxin) 0.125 mg DAILY ORAL 05/10/19 09:00 06/09/19 08:59 05/17/19 09:15 Docusate Sodium (Colace) 100 mg THREE TIMES A DAY ORAL 05/07/19 13:00 06/05/19 12:59 05/17/19 09:14 Doxazosin Mesylate (Cardura) 4 mg BEDTIME ORAL 05/17/19 21:00 06/16/19 20:59 Ferrous Sulfate (Feosol) 325 mg THREE TIMES A DAY ORAL 05/08/19 18:00 06/07/19 17:59 05/17/19 09:16 Fluticasone Propionate (Flonase) 1 spray TWICE A DAY NASAL 05/14/19 18:00 06/13/19 17:59 05/17/19 09:16 Gabapentin (Neurontin) 300 mg THREE TIMES A DAY ORAL 05/07/19 13:00 06/05/19 08:59 05/17/19 09:13 Irbesartan (Avapro) 75 mg DAILY ORAL 05/16/19 09:00 06/15/19 08:59 05/17/19 09:15 Morphine Sulfate (Morphine Sulfate) 2 mg Q8H PRN IVP Severe Pain (Pain Scale 7-10) 05/13/19 20:00 05/20/19 19:59 05/17/19 09:13 Pantoprazole (Protonix) 40 mg EVERY 12 HOURS ORAL 05/07/19 21:00 06/05/19 20:59 05/17/19 09:13 Piperacillin Sod/ Tazobactam Sod 3.375 gm/Sodium Chloride 110 ml @ 27.5 mls/hr Q8H IVPB 05/14/19 12:00 05/21/19 11:59 05/17/19 05:57 Potassium Chloride (K-Dur) 40 meq BID ORAL 05/16/19 18:00 06/14/19 12:44 05/17/19 09:14 Jass Hartman MD May 17, 2019 11:27
[2019-05-17 12:00] VITALS: BP 148/83
--- NOTE | 2019-05-17 12:53 | Nephrology Progress Note ---
Assessment/Plan Problem List: (1) Renal failure (2) Obesity, morbid, BMI 50 or higher (3) COPD (chronic obstructive pulmonary disease) (4) Electrolyte imbalance Assessment (1) Hypokalemia (2) CHF (congestive heart failure) (3) Renal failure (4) Obesity, morbid, BMI 50 or higher (5) CO2 retention (6) COPD (chronic obstructive pulmonary disease) elevated Cr likely due to diuresis Obesity , NATASHA AT fib with FVR HTN Congestive heart failure, likely diastolic dysfunction. EF 60% Recurrent NSVT. No syncope. Hypertension. Morbid obesity. COPD. Lipidemia. Plan K supplement stop NSAIDs UA Monitor Cr rising Keep BP in check Monitor lytes check B12 and Folic acid Diamox PO as needed per orders per cardio and pulmonary taper steroids as possible Subjective ROS Limited/Unobtainable: No Constitutional: Reports: malaise, weakness Objective Objective Last 24 Hour Vital Signs Date Time Temp Pulse Resp B/P (MAP) Pulse Ox O2 Delivery O2 Flow Rate FiO2 05/17/19 12:00 97.7 86 22 148/83 (104) 93 05/17/19 10:58 88 26 92 Facial 40 05/17/19 09:15 174/108 05/17/19 09:15 82 05/17/19 09:15 82 174/108 05/17/19 08:30 97.3 82 20 174/108 (130) 94 05/17/19 07:06 95 Nasal Cannula 3.0 32 05/17/19 05:48 79 16 93 Facial 40 05/17/19 04:00 98.0 80 25 140/72 (94) 97 05/17/19 03:30 78 18 94 Facial 40 05/17/19 00:23 80 17 95 Facial 40 05/17/19 00:00 98.2 78 25 144/78 (100) 98 05/16/19 21:21 69 153/103 05/16/19 21:00 Nasal Cannula 2.0 05/16/19 20:00 98.1 69 25 153/103 (120) 97 05/16/19 19:04 94 Nasal Cannula 40 05/16/19 19:03 86 17 94 Facial 40 05/16/19 16:00 99.3 110 20 160/76 (104) 94 Intake and Output 05/16/19 05/17/19 19:00 07:00 Intake Total 1170 ml Output Total 1800 ml Balance -630 ml Intake Oral 1170 ml Output Urine Total 1800 ml # Voids 3 # Bowel Movements 2 Height (Feet): 5 Height (Inches): 10.00 Weight (Pounds): 432 General Appearance: no apparent distress Cardiovascular: normal rate Respiratory/Chest: decreased breath sounds Abdomen: other - obese Objective no change Bebeto Yin MD May 17, 2019 12:53
[2019-05-17] MEDS ORDERED: HYDROcodone/Acetamin 5/325 tab ORAL PRN (13:00)
--- NOTE | 2019-05-17 14:05 | Infectious Diseases Prog Note ---
Assessment/Plan Problems: (1) Pneumonia Assessment & Plan: with cough productive , fever and SOB, continue zosyn empirically for now, may switch to oral augmentin once discharged (2) COPD (chronic obstructive pulmonary disease) Assessment & Plan: Due to the above, improved with inhalers, and antibiotics (3) Obesity, morbid, BMI 50 or higher Assessment & Plan: recommend diet and exercise (4) Renal failure Assessment & Plan: improving follow up with renal (5) Fever Assessment & Plan: resolved, suspect pneumonia related, with no evidence of sepsis , and negative blood culture x 2 . continue antibiotics for 7-10 days Subjective Constitutional: Reports: no symptoms HEENT: Reports: no symptoms Respiratory: Reports: no symptoms Breasts: Reports: no symptoms Cardiovascular: Reports: no symptoms Gastrointestinal/Abdominal: Reports: no symptoms Genitourinary: Reports: no symptoms Neurologic: Reports: no symptoms Psychiatric: Reports: no symptoms Skin: Reports: no symptoms Endocrine: Reports: no symptoms Hematologic: Reports: no symptoms Musculoskeletal: Reports: no symptoms Allergies: Coded Allergies: RIVAROXABAN (Verified Allergy, Unknown, 04/05/19) Objective Vital Signs Last 24 Hour Vital Signs Date Time Temp Pulse Resp B/P (MAP) Pulse Ox O2 Delivery O2 Flow Rate FiO2 05/17/19 13:22 76 22 94 Facial 40 05/17/19 12:00 97.7 86 22 148/83 (104) 93 05/17/19 10:58 88 26 92 Facial 40 05/17/19 09:15 174/108 05/17/19 09:15 82 05/17/19 09:15 82 174/108 05/17/19 08:30 97.3 82 20 174/108 (130) 94 05/17/19 07:06 95 Nasal Cannula 3.0 32 05/17/19 05:48 79 16 93 Facial 40 05/17/19 04:00 98.0 80 25 140/72 (94) 97 05/17/19 03:30 78 18 94 Facial 40 05/17/19 00:23 80 17 95 Facial 40 05/17/19 00:00 98.2 78 25 144/78 (100) 98 05/16/19 21:21 69 153/103 05/16/19 21:00 Nasal Cannula 2.0 05/16/19 20:00 98.1 69 25 153/103 (120) 97 05/16/19 19:04 94 Nasal Cannula 40 05/16/19 19:03 86 17 94 Facial 40 05/16/19 16:00 99.3 110 20 160/76 (104) 94 Height (Feet): 5 Height (Inches): 10.00 Weight (Pounds): 432 General Appearance: WD/WN, no acute distress HEENT: normocephalic, atraumatic, anicteric, mucous membranes moist, PERRL Respiratory/Chest: chest wall non-tender, normal breath sounds, no respiratory distress, no accessory muscle use, decreased breath sounds Cardiovascular: normal peripheral pulses, normal rate, regular rhythm, no gallop/murmur, no JVD Abdomen: normal bowel sounds, soft, non tender, no organomegaly, non distended , no mass, no scars Extremities: no cyanosis, no clubbing Skin: no rash, no lesions, no ulcers Neurologic/Psychiatric: no motor/sensory deficits, alert Lymphatic: no neck adenopathy, no groin adenopathy Musculoskeletal: normal muscle bulk, no effusion Current Medications Medications (Trade) Dose Ordered Sig/David Route PRN Reason Start Time Stop Time Status Last Admin Dose Admin Acetaminophen (Tylenol) 650 mg Q6H PRN ORAL Mild Pain/Temp > 100.5 05/07/19 12:00 06/04/19 11:59 05/15/19 09:01 Acetaminophen/ Hydrocodone Bitart ([place] 10/325) 1 tab Q6H PRN ORAL Severe Breakthru Pain (>7) 05/17/19 13:00 05/24/19 12:59 Acetaminophen/ Hydrocodone Bitart ([place] 5/325) 1 tab Q6H PRN ORAL Moderate Pain (Pain Scale 4-6) 05/17/19 13:00 05/24/19 12:59 Albuterol Sulfate (Proventil) 2.5 mg Q6H PRN HHN Shortness of Breath 05/16/19 19:15 05/21/19 19:14 Apixaban (Eliquis) 5 mg BID ORAL 05/09/19 23:15 06/08/19 23:14 05/17/19 09:14 Atorvastatin Calcium (Lipitor) 40 mg BEDTIME ORAL 05/07/19 21:00 06/04/19 20:59 05/16/19 21:22 Carvedilol (Coreg) 25 mg Q12HR ORAL 05/09/19 21:00 06/08/19 20:59 05/17/19 09:15 Clonidine HCl (Catapres Tab) 0.1 mg Q8H PRN ORAL For High Blood Pressure 05/10/19 14:00 06/09/19 13:59 05/15/19 21:34 Digoxin (Lanoxin) 0.125 mg DAILY ORAL 05/10/19 09:00 06/09/19 08:59 05/17/19 09:15 Docusate Sodium (Colace) 100 mg THREE TIMES A DAY ORAL 05/07/19 13:00 06/05/19 12:59 05/17/19 09:14 Doxazosin Mesylate (Cardura) 4 mg BEDTIME ORAL 05/17/19 21:00 06/16/19 20:59 Ferrous Sulfate (Feosol) 325 mg THREE TIMES A DAY ORAL 05/08/19 18:00 06/07/19 17:59 05/17/19 09:16 Fluticasone Propionate (Flonase) 1 spray TWICE A DAY NASAL 05/14/19 18:00 06/13/19 17:59 05/17/19 09:16 Furosemide (Lasix) 40 mg ONCE IV 05/17/19 13:58 05/17/19 15:00 Gabapentin (Neurontin) 300 mg THREE TIMES A DAY ORAL 05/07/19 13:00 06/05/19 08:59 05/17/19 09:13 Irbesartan (Avapro) 75 mg DAILY ORAL 05/16/19 09:00 06/15/19 08:59 05/17/19 09:15 Pantoprazole (Protonix) 40 mg EVERY 12 HOURS ORAL 05/07/19 21:00 06/05/19 20:59 05/17/19 09:13 Piperacillin Sod/ Tazobactam Sod 3.375 gm/Sodium Chloride 110 ml @ 27.5 mls/hr Q8H IVPB 05/14/19 12:00 05/21/19 11:59 05/17/19 05:57 Potassium Chloride (K-Dur) 40 meq BID ORAL 05/16/19 18:00 06/14/19 12:44 05/17/19 09:14 Cortney Jackson M.D. May 17, 2019 14:05
--- NOTE | 2019-05-17 14:23 | NUR ---
CASE MANAGEMENT:REVIEW 05/17/19 SI:PNA. COPD. OBESITY 97.7 86 22 148/83 95% ON 3L/NC...REQUESTED TO BE PLACED ON BIPAP IS: IV LASIX X1 IV ZOSYN Q8HRS CARDURA PO QHS K-DUR PO BID AVAPRO PO QD FLONASE BID DIGOXIN PO QD ELIQUIS PO BID COREG PO Q12 NEURONTIN PO TID : TRANSFER FROM TELEMETRY TO MED/SURG...PATIENT REFUSING PLAN: CHANGE IV MORPHINE TO PO NORCO
[2019-05-17 16:00] VITALS: BP 112/52
[2019-05-17] MEDS: HYDROcodone/Acetamin 10/325 tab ORAL PRN ×2 (18:25→20:33)
[2019-05-17 20:00] VITALS: BP 145/74
--- NOTE | 2019-05-17 20:19 | NUR ---
HAND-OFF: Report given to Hipolito/cody.
[2019-05-17] MEDS: Atorvastatin 20mg tab ORAL SCH (20:33)
[2019-05-17] MEDS: Doxazosin 1mg Tab ORAL SCH (20:34)
--- NOTE | 2019-05-17 22:57 | General Progress Note ---
Assessment/Plan Assessment/Plan: S: I can not go home O: seems comfortable. exertional sob with minimal activity. Ambulating in the room with assistance. 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 Acute COPD (chronic obstructive pulmonary disease) 3. Morbid obesity 4. HTN 5. Multiple joint OA 6. Afib-RVR 7. NATASHA 8. Refusal of Care 9. ARF Plan: stool for ob start iron supplement notes form PT reviewed. Patient continues denying participation in PT optimise BP medication Disposition to SNF/plan of care DC morphine Subjective Allergies: Coded Allergies: RIVAROXABAN (Verified Allergy, Unknown, 04/05/19) Objective Last 24 Hour Vital Signs Date Time Temp Pulse Resp B/P (MAP) Pulse Ox O2 Delivery O2 Flow Rate FiO2 05/17/19 21:25 79 17 95 Facial 40 05/17/19 21:09 98.4 05/17/19 20:33 65 145/74 05/17/19 19:29 74 15 94 Facial 40 05/17/19 19:29 95 Bi-Pap 40 05/17/19 16:00 98.4 83 20 112/52 (72) 94 05/17/19 13:22 76 22 94 Facial 40 05/17/19 12:00 97.7 86 22 148/83 (104) 93 05/17/19 10:58 88 26 92 Facial 40 05/17/19 09:15 174/108 05/17/19 09:15 82 05/17/19 09:15 82 174/108 05/17/19 08:30 97.3 82 20 174/108 (130) 94 05/17/19 07:06 95 Nasal Cannula 3.0 32 05/17/19 05:48 79 16 93 Facial 40 05/17/19 04:00 98.0 80 25 140/72 (94) 97 05/17/19 03:30 78 18 94 Facial 40 05/17/19 00:23 80 17 95 Facial 40 05/17/19 00:00 98.2 78 25 144/78 (100) 98 Intake and Output 05/16/19 05/17/19 19:00 07:00 Intake Total 1170 ml Output Total 1800 ml Balance -630 ml Intake Oral 1170 ml Output Urine Total 1800 ml # Voids 3 # Bowel Movements 2 Height (Feet): 5 Height (Inches): 10.00 Weight (Pounds): 432 Desirae Haro MD May 17, 2019 22:57
--- NOTE | 2019-05-17 23:26 | Cardiology Progress Note ---
Assessment/Plan Assessment/Plan 1. Paroxysmal atrial fibrillation, continue digoxin and carvedilol as well as Eliquis in face of CHADS-VASC score of 2. 2. Dyspnea, most likely acute on chronic HFnlEF due to combination of HTN, CKD and obesity, there is also element of obesity hypoventilation syndrome, no prior hx of tobacco use. Continue gentle diuresis and carvedilol. 2. Morbid obesity. 3. CKD, creat stable at 1.5,continue Irbesartan. 4. DM, continue atorvastatin. 5. Hx of non-sustained ventricular tachycardia, given normal EF, would like to proceed with B-blockers. 6. HTN, well controlled, continue BP meds. Subjective Subjective Sinus rhythm at rate of 78. Facial O2 FiO2 40%. Objective Last 24 Hour Vital Signs Date Time Temp Pulse Resp B/P (MAP) Pulse Ox O2 Delivery O2 Flow Rate FiO2 05/17/19 22:51 78 16 95 Facial 40 05/17/19 21:25 79 17 95 Facial 40 05/17/19 21:09 98.4 05/17/19 20:33 65 145/74 05/17/19 19:29 74 15 94 Facial 40 05/17/19 19:29 95 Bi-Pap 40 05/17/19 16:00 98.4 83 20 112/52 (72) 94 05/17/19 13:22 76 22 94 Facial 40 05/17/19 12:00 97.7 86 22 148/83 (104) 93 05/17/19 10:58 88 26 92 Facial 40 05/17/19 09:15 174/108 05/17/19 09:15 82 05/17/19 09:15 82 174/108 05/17/19 08:30 97.3 82 20 174/108 (130) 94 05/17/19 07:06 95 Nasal Cannula 3.0 32 05/17/19 05:48 79 16 93 Facial 40 05/17/19 04:00 98.0 80 25 140/72 (94) 97 05/17/19 03:30 78 18 94 Facial 40 05/17/19 00:23 80 17 95 Facial 40 05/17/19 00:00 98.2 78 25 144/78 (100) 98 Intake and Output 05/16/19 05/17/19 19:00 07:00 Intake Total 1170 ml Output Total 1800 ml Balance -630 ml Intake Oral 1170 ml Output Urine Total 1800 ml # Voids 3 # Bowel Movements 2 2D Echo: Normal EF, Mod LVH, Mild LAE, RVSP 37, Grade II LVDD (pseudonormal Physio) Objective HEENT: NC/AT. EOMI. Anicteric, no pallor. + obesity Neck: JVP <5 cm, no carotid bruit. Cardiovascular: Irregularly irregular rhythm, Normal S1 and S2. No murmurs, gallops or rubs Resp: Diminished BS both lungs. Abdomen: Abdomen is soft, nondistended. Nontender, + BS Extremities: No edema, clubbing or cyanosis. Sandor Lawrence MD May 17, 2019 23:26
[2019-05-18] VITALS: BP 123/70
[2019-05-18] MEDS: Piperacillin/Tazobactam 3.375 GM in NS 110 ML IVPB SCH ×3 (03:31→20:53)
[2019-05-18 04:00] VITALS: BP 150/66
[2019-05-18] MEDS: HYDROcodone/Acetamin 10/325 tab ORAL PRN (04:27)
--- NOTE | 2019-05-18 07:20 | NUR ---
NURSE NOTES: Received report from KEESHA Mcmillan. The patient is resting on the bed without acute distress or shortness of breath. The patient's bed in the lowest position, call light in reach, and fall and aspiration precaution reinforced. IV site intact and patent. Oxygen therapy per order. The patient has med/surg transfer order and waiting bed. Will continue plan of care.
--- NOTE | 2019-05-18 07:20 | NUR ---
HAND-OFF: Report given to Shelly THAO.
[2019-05-18 07:37] LABS: ANION GAP 1 mmol/L (5-15); BLOOD UREA NITROGEN 14 mg/dL (7-18); CALCIUM 7.9 MG/DL (8.5-10.1); CHLORIDE 105 MMOL/L (98-107); CREATININE 1.3 MG/DL (0.55-1.30); POTASSIUM 3.5 MMOL/L (3.5-5.1); SODIUM 149 MMOL/L (136-145)
[2019-05-18 08:00] VITALS: BP 139/102
--- NOTE | 2019-05-18 08:54 | NUR ---
CASE MANAGEMENT:REVIEW 05/18/19 SI:PNA. COPD. OBESITY 97.9 78 19 150/66 94% ON BIPAP IS: IV ZOSYN Q8HRS CARDURA PO QHS K-DUR PO BID AVAPRO PO QD FLONASE BID DIGOXIN PO QD ELIQUIS PO BID COREG PO Q12 NEURONTIN PO TID : TELEMETRY STATUS DCP: FROM HOME W/OXYGEN PLAN: WEAN OFF BIPAP
--- NOTE | 2019-05-18 09:30 | NUR ---
NURSE NOTES: Paged Dr. Hartman for critical lab of elevated CO2 level on CMP. No new order yet. Oxygen therapy per order. Will closely monitor the patient.
[2019-05-18] MEDS: Flonase Nasal Inhaler 16gm NASAL SCH ×2 (09:34→17:19)
[2019-05-18] MEDS: Irbesartan 150mg tablet ORAL SCH (09:34)
[2019-05-18] MEDS: Carvedilol 25mg Tab ORAL SCH ×2 (09:35→20:53)
[2019-05-18] MEDS: Docusate 100mg cap ORAL SCH ×3 (09:35→17:20)
[2019-05-18] MEDS: Eliquis 5mg tablet ORAL SCH ×2 (09:36→17:20)
[2019-05-18] MEDS: Digoxin 0.125mg tab ORAL SCH (09:37)
[2019-05-18 09:56] LABS: CARBON DIOXIDE 44 MMOL/L (21-32)
--- NOTE | 2019-05-18 11:08 | General Progress Note ---
Assessment/Plan Assessment/Plan: S: I can not go home O: seems comfortable. exertional sob with minimal activity. Ambulating in the room with assistance. 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 Acute COPD (chronic obstructive pulmonary disease) 3. Morbid obesity 4. HTN 5. Multiple joint OA 6. Afib-RVR 7. NATASHA 8. Refusal of Care 9. ARF Plan: stool for ob start iron supplement notes form pulmonary reviewed. Patient continues denying participation in PT optimise BP medication Disposition to SNF/plan of care DC morphine C/w NI-ventilation Subjective Allergies: Coded Allergies: RIVAROXABAN (Verified Allergy, Unknown, 04/05/19) Objective Last 24 Hour Vital Signs Date Time Temp Pulse Resp B/P (MAP) Pulse Ox O2 Delivery O2 Flow Rate FiO2 05/18/19 09:39 93 Nasal Cannula 3.0 32 05/18/19 09:37 69 05/18/19 09:35 69 139/102 05/18/19 09:34 139/102 05/18/19 05:22 78 19 94 Facial 40 05/18/19 04:57 97.9 05/18/19 04:00 97.7 66 20 150/66 (94) 95 05/18/19 02:18 79 16 95 Facial 40 05/18/19 00:01 82 15 94 Facial 40 05/18/19 00:00 97.9 78 16 123/70 (87) 95 05/17/19 22:51 78 16 95 Facial 40 05/17/19 21:25 79 17 95 Facial 40 05/17/19 21:00 Nasal Cannula 2.0 05/17/19 20:33 65 145/74 05/17/19 20:00 98.1 65 16 145/74 (97) 97 1/14/20 19:29 74 15 94 Facial 40 05/17/19 19:29 95 Bi-Pap 40 05/17/19 16:00 98.4 83 20 112/52 (72) 94 05/17/19 13:22 76 22 94 Facial 40 05/17/19 12:00 97.7 86 22 148/83 (104) 93 Intake and Output 05/17/19 05/18/19 19:00 07:00 Intake Total 710 ml Output Total 1900 ml 1500 ml Balance -1190 ml -1500 ml Intake Oral 710 ml Output Urine Total 1900 ml 1500 ml # Bowel Movements 1 Laboratory Tests 05/18/19 06:50: Sodium Level 149H, Potassium Level 3.5, Chloride Level 105, Carbon Dioxide Level 44*H, Anion Gap 1L, Blood Urea Nitrogen 14, Creatinine 1.3, Estimat Glomerular Filtration Rate > 60, Glucose Level 93, Calcium Level 7.9L, Pro-B- Type Natriuretic Peptide 213H Height (Feet): 5 Height (Inches): 10.00 Weight (Pounds): 431 Desirae Haro MD May 18, 2019 11:08
--- NOTE | 2019-05-18 11:30 | NUR ---
NURSE NOTES: The patient is stable without acute distress or shortness of breath. Will continue plan of care.
[2019-05-18 12:00] VITALS: BP 150/87
--- NOTE | 2019-05-18 13:30 | NUR ---
PT notes: Hold treatment today as per RN; will follow up next treatment schedule.
--- NOTE | 2019-05-18 14:12 | Pulmonology Progress Note ---
Assessment/Plan Assessment/Plan Congestive heart failure Hypertension Chronic Obstructive Pulmonary Disease Obesity Obstructive Sleep Apnea Hypertension Diabetes Plan - spot dose diuresis prn, agree with diamox per renal - ABG in AM - CXR in AM - monitor off steroids - HHN - O2 PRN - noninvasive ventilation PRN/QHS - ISS - PPX Case d/w Dr. Yin Subjective ROS Limited/Unobtainable: Yes Interval Events: Good diuresis. Cr improved. Bicarb up. Using BiPAP Allergies: Coded Allergies: RIVAROXABAN (Verified Allergy, Unknown, 04/05/19) Objective Last 24 Hour Vital Signs Date Time Temp Pulse Resp B/P (MAP) Pulse Ox O2 Delivery O2 Flow Rate FiO2 05/18/19 09:39 93 Nasal Cannula 3.0 32 05/18/19 09:37 69 05/18/19 09:35 69 139/102 05/18/19 09:34 139/102 05/18/19 08:00 98.2 69 18 139/102 (114) 95 05/18/19 05:22 78 19 94 Facial 40 05/18/19 04:57 97.9 05/18/19 04:00 97.7 66 20 150/66 (94) 95 05/18/19 02:18 79 16 95 Facial 40 05/18/19 00:01 82 15 94 Facial 40 05/18/19 00:00 97.9 78 16 123/70 (87) 95 05/17/19 22:51 78 16 95 Facial 40 05/17/19 21:25 79 17 95 Facial 40 05/17/19 21:00 Nasal Cannula 2.0 05/17/19 20:33 65 145/74 05/17/19 20:00 98.1 65 16 145/74 (97) 97 05/17/19 19:29 74 15 94 Facial 40 05/17/19 19:29 95 Bi-Pap 40 05/17/19 16:00 98.4 83 20 112/52 (72) 94 Intake and Output 05/17/19 05/18/19 19:00 07:00 Intake Total 710 ml Output Total 1900 ml 1500 ml Balance -1190 ml -1500 ml Intake Oral 710 ml Output Urine Total 1900 ml 1500 ml # Bowel Movements 1 General Appearance: no acute distress HEENT: mucous membranes moist Respiratory/Chest: crackles/rales Cardiovascular: normal rate, regular rhythm Abdomen: soft, non tender Extremities: other - edema Laboratory Tests 05/18/19 06:50: Sodium Level 149H, Potassium Level 3.5, Chloride Level 105, Carbon Dioxide Level 44*H, Anion Gap 1L, Blood Urea Nitrogen 14, Creatinine 1.3, Estimat Glomerular Filtration Rate > 60, Glucose Level 93, Calcium Level 7.9L, Pro-B- Type Natriuretic Peptide 213H Current Medications Medications (Trade) Dose Ordered Sig/David Route PRN Reason Start Time Stop Time Status Last Admin Dose Admin Acetaminophen (Tylenol) 650 mg Q6H PRN ORAL Mild Pain/Temp > 100.5 05/07/19 12:00 06/04/19 11:59 05/15/19 09:01 Acetaminophen/ Hydrocodone Bitart ([place] 10/325) 1 tab Q6H PRN ORAL Severe Breakthru Pain (>7) 05/17/19 13:00 05/24/19 12:59 05/18/19 04:27 Acetaminophen/ Hydrocodone Bitart ([place] 5/325) 1 tab Q6H PRN ORAL Moderate Pain (Pain Scale 4-6) 05/17/19 13:00 05/24/19 12:59 Albuterol Sulfate (Proventil) 2.5 mg Q6H PRN HHN Shortness of Breath 05/16/19 19:15 05/21/19 19:14 Apixaban (Eliquis) 5 mg BID ORAL 05/09/19 23:15 06/08/19 23:14 05/18/19 09:36 Atorvastatin Calcium (Lipitor) 40 mg BEDTIME ORAL 05/07/19 21:00 06/04/19 20:59 05/17/19 20:33 Carvedilol (Coreg) 25 mg Q12HR ORAL 05/09/19 21:00 06/08/19 20:59 05/18/19 09:35 Clonidine HCl (Catapres Tab) 0.1 mg Q8H PRN ORAL For High Blood Pressure 05/10/19 14:00 06/09/19 13:59 05/15/19 21:34 Digoxin (Lanoxin) 0.125 mg DAILY ORAL 05/10/19 09:00 06/09/19 08:59 05/18/19 09:37 Docusate Sodium (Colace) 100 mg THREE TIMES A DAY ORAL 05/07/19 13:00 06/05/19 12:59 05/18/19 12:11 Doxazosin Mesylate (Cardura) 4 mg BEDTIME ORAL 05/17/19 21:00 06/16/19 20:59 05/17/19 20:34 Ferrous Sulfate (Feosol) 325 mg THREE TIMES A DAY ORAL 05/08/19 18:00 06/07/19 17:59 05/18/19 12:12 Fluticasone Propionate (Flonase) 1 spray TWICE A DAY NASAL 05/14/19 18:00 06/13/19 17:59 05/18/19 09:34 Gabapentin (Neurontin) 300 mg THREE TIMES A DAY ORAL 05/07/19 13:00 06/05/19 08:59 05/18/19 12:12 Irbesartan (Avapro) 75 mg DAILY ORAL 05/16/19 09:00 06/15/19 08:59 05/18/19 09:34 Pantoprazole (Protonix) 40 mg EVERY 12 HOURS ORAL 05/07/19 21:00 06/05/19 20:59 05/18/19 09:37 Piperacillin Sod/ Tazobactam Sod 3.375 gm/Sodium Chloride 110 ml @ 27.5 mls/hr Q8H IVPB 05/14/19 12:00 05/21/19 11:59 05/18/19 12:11 Potassium Chloride (K-Dur) 40 meq BID ORAL 05/16/19 18:00 06/14/19 12:44 05/18/19 09:36 Jass Hartman MD May 18, 2019 14:12
--- NOTE | 2019-05-18 14:17 | Nephrology Progress Note ---
Assessment/Plan Problem List: (1) Renal failure (2) Obesity, morbid, BMI 50 or higher (3) COPD (chronic obstructive pulmonary disease) (4) Electrolyte imbalance Assessment (1) Hypokalemia (2) CHF (congestive heart failure) (3) Renal failure (4) Obesity, morbid, BMI 50 or higher (5) CO2 retention (6) COPD (chronic obstructive pulmonary disease) elevated Cr likely due to diuresis Obesity , NATASHA AT fib with FVR HTN Congestive heart failure, likely diastolic dysfunction. EF 60% Recurrent NSVT. No syncope. Hypertension. Morbid obesity. COPD. Lipidemia. Plan K supplement Diamox and ABG- discussed with Dr Hartmna stop NSAIDs UA Monitor Cr rising Keep BP in check Monitor lytes check B12 and Folic acid Diamox PO as needed per orders per cardio and pulmonary taper steroids as possible Subjective ROS Limited/Unobtainable: No Constitutional: Reports: malaise, weakness Objective Objective Last 24 Hour Vital Signs Date Time Temp Pulse Resp B/P (MAP) Pulse Ox O2 Delivery O2 Flow Rate FiO2 05/18/19 09:39 93 Nasal Cannula 3.0 32 05/18/19 09:37 69 05/18/19 09:35 69 139/102 05/18/19 09:34 139/102 05/18/19 08:00 98.2 69 18 139/102 (114) 95 05/18/19 05:22 78 19 94 Facial 40 05/18/19 04:57 97.9 05/18/19 04:00 97.7 66 20 150/66 (94) 95 05/18/19 02:18 79 16 95 Facial 40 05/18/19 00:01 82 15 94 Facial 40 05/18/19 00:00 97.9 78 16 123/70 (87) 95 05/17/19 22:51 78 16 95 Facial 40 05/17/19 21:25 79 17 95 Facial 40 05/17/19 21:00 Nasal Cannula 2.0 05/17/19 20:33 65 145/74 05/17/19 20:00 98.1 65 16 145/74 (97) 97 05/17/19 19:29 74 15 94 Facial 40 05/17/19 19:29 95 Bi-Pap 40 05/17/19 16:00 98.4 83 20 112/52 (72) 94 Intake and Output 05/17/19 05/18/19 19:00 07:00 Intake Total 710 ml Output Total 1900 ml 1500 ml Balance -1190 ml -1500 ml Intake Oral 710 ml Output Urine Total 1900 ml 1500 ml # Bowel Movements 1 Laboratory Tests 05/18/19 06:50: Sodium Level 149H, Potassium Level 3.5, Chloride Level 105, Carbon Dioxide Level 44*H, Anion Gap 1L, Blood Urea Nitrogen 14, Creatinine 1.3, Estimat Glomerular Filtration Rate > 60, Glucose Level 93, Calcium Level 7.9L, Pro-B- Type Natriuretic Peptide 213H Height (Feet): 5 Height (Inches): 10.00 Weight (Pounds): 431 Cardiovascular: normal rate Respiratory/Chest: decreased breath sounds Abdomen: distended Objective no change Bebeto Yin MD May 18, 2019 14:17
--- NOTE | 2019-05-18 15:00 | NUR ---
NURSE NOTES: The patient is stable without acute distress or shortness of breath. Will continue plan of care.
--- NOTE | 2019-05-18 15:30 | NUR ---
NURSE NOTES: Dr. Hartman ordered ABG and CXR for tomorrow morning. The patient is stable without acute distress or shortness of breath. Will continue plan of care.
[2019-05-18 16:00] VITALS: BP 157/89
--- NOTE | 2019-05-18 19:10 | NUR ---
HAND-OFF: Report given to KEESHA Mcmillan. The patient is resting on the bed without acute distress or shortness of breath. The patient's bed in the lowest position, call light in reach, and fall and aspiration precaution reinforced. IV site intact and patent. Oxygen therapy per order. Endorsed plan of care.
[2019-05-18 20:00] VITALS: BP 159/80
--- NOTE | 2019-05-18 20:34 | Infectious Diseases Prog Note ---
Assessment/Plan Problems: (1) Pneumonia Assessment & Plan: with cough productive , fever and SOB, continue zosyn empirically for now, may switch to oral augmentin once discharged (2) COPD (chronic obstructive pulmonary disease) Assessment & Plan: Due to the above, improved with inhalers, and antibiotics (3) Obesity, morbid, BMI 50 or higher Assessment & Plan: recommend diet and exercise (4) Renal failure Assessment & Plan: improving follow up with renal (5) Fever Assessment & Plan: resolved, suspect pneumonia related, with no evidence of sepsis , and negative blood culture x 2 . continue antibiotics for 7-10 days Subjective Constitutional: Reports: no symptoms HEENT: Reports: no symptoms Respiratory: Reports: dry cough Breasts: Reports: no symptoms Cardiovascular: Reports: no symptoms Gastrointestinal/Abdominal: Reports: no symptoms Genitourinary: Reports: no symptoms Neurologic: Reports: no symptoms Psychiatric: Reports: no symptoms Skin: Reports: no symptoms Endocrine: Reports: no symptoms Hematologic: Reports: no symptoms Musculoskeletal: Reports: no symptoms Allergies: Coded Allergies: RIVAROXABAN (Verified Allergy, Unknown, 04/05/19) Objective Vital Signs Last 24 Hour Vital Signs Date Time Temp Pulse Resp B/P (MAP) Pulse Ox O2 Delivery O2 Flow Rate FiO2 05/18/19 16:00 98.1 72 18 157/89 (111) 97 05/18/19 14:30 71 24 98 Facial 40 05/18/19 12:00 97.9 64 18 150/87 (108) 98 05/18/19 11:40 68 20 98 Nasal Cannula 3.0 32 63 18 97 05/18/19 11:40 63 18 97 Facial 40 05/18/19 09:39 93 Nasal Cannula 3.0 32 05/18/19 09:37 69 05/18/19 09:35 69 139/102 05/18/19 09:34 139/102 05/18/19 09:00 Nasal Cannula 2.0 05/18/19 08:00 98.2 69 18 139/102 (114) 95 05/18/19 05:22 78 19 94 Facial 40 05/18/19 04:57 97.9 05/18/19 04:00 97.7 66 20 150/66 (94) 95 05/18/19 02:18 79 16 95 Facial 40 05/18/19 00:01 82 15 94 Facial 40 05/18/19 00:00 97.9 78 16 123/70 (87) 95 05/17/19 22:51 78 16 95 Facial 40 05/17/19 21:25 79 17 95 Facial 40 05/17/19 21:00 Nasal Cannula 2.0 05/17/19 20:33 65 145/74 Height (Feet): 5 Height (Inches): 10.00 Weight (Pounds): 431 General Appearance: WD/WN, no acute distress HEENT: normocephalic, atraumatic, anicteric, mucous membranes moist, PERRL Respiratory/Chest: chest wall non-tender, lungs clear, normal breath sounds, no respiratory distress, no accessory muscle use, decreased breath sounds Cardiovascular: normal peripheral pulses, normal rate, regular rhythm, no gallop/murmur, no JVD Abdomen: normal bowel sounds, soft, non tender, no organomegaly, non distended , no mass, no scars Genitourinary: normal external genitalia Extremities: no cyanosis, no clubbing Skin: no rash, no lesions, no ulcers Neurologic/Psychiatric: typewriter tester 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 normal, alert, oriented x 3, responsive Lymphatic: no neck adenopathy, no groin adenopathy Musculoskeletal: normal muscle bulk, no effusion Laboratory Tests Test 05/18/19 06:50 Sodium Level 149 MMOL/L (136-145) H Potassium Level 3.5 MMOL/L (3.5-5.1) Chloride Level 105 MMOL/L (98-107) Carbon Dioxide Level 44 MMOL/L (21-32) *H Anion Gap 1 mmol/L (5-15) L Blood Urea Nitrogen 14 mg/dL (7-18) Creatinine 1.3 MG/DL (0.55-1.30) Estimat Glomerular Filtration Rate > 60 mL/min (>60) Glucose Level 93 MG/DL (74-106) Calcium Level 7.9 MG/DL (8.5-10.1) L Pro-B-Type Natriuretic Peptide 213 pg/mL (0-125) H Current Medications Medications (Trade) Dose Ordered Sig/David Route PRN Reason Start Time Stop Time Status Last Admin Dose Admin Acetaminophen (Tylenol) 650 mg Q6H PRN ORAL Mild Pain/Temp > 100.5 05/07/19 12:00 06/04/19 11:59 05/15/19 09:01 Acetaminophen/ Hydrocodone Bitart ([place] 10/325) 1 tab Q6H PRN ORAL Severe Breakthru Pain (>7) 05/17/19 13:00 05/24/19 12:59 05/18/19 04:27 Acetaminophen/ Hydrocodone Bitart ([place] 5/325) 1 tab Q6H PRN ORAL Moderate Pain (Pain Scale 4-6) 05/17/19 13:00 05/24/19 12:59 05/18/19 17:22 Acetazolamide (Diamox) 250 mg DAILY ORAL 05/18/19 15:00 06/17/19 14:59 05/18/19 15:04 Albuterol Sulfate (Proventil) 2.5 mg Q6H PRN HHN Shortness of Breath 05/16/19 19:15 05/21/19 19:14 05/18/19 12:40 Apixaban (Eliquis) 5 mg BID ORAL 05/09/19 23:15 06/08/19 23:14 05/18/19 17:20 Atorvastatin Calcium (Lipitor) 40 mg BEDTIME ORAL 05/07/19 21:00 06/04/19 20:59 05/17/19 20:33 Carvedilol (Coreg) 25 mg Q12HR ORAL 05/09/19 21:00 06/08/19 20:59 05/18/19 09:35 Clonidine HCl (Catapres Tab) 0.1 mg Q8H PRN ORAL For High Blood Pressure 05/10/19 14:00 06/09/19 13:59 05/15/19 21:34 Digoxin (Lanoxin) 0.125 mg DAILY ORAL 05/10/19 09:00 06/09/19 08:59 05/18/19 09:37 Docusate Sodium (Colace) 100 mg THREE TIMES A DAY ORAL 05/07/19 13:00 06/05/19 12:59 05/18/19 17:20 Doxazosin Mesylate (Cardura) 4 mg BEDTIME ORAL 05/17/19 21:00 06/16/19 20:59 05/17/19 20:34 Ferrous Sulfate (Feosol) 325 mg THREE TIMES A DAY ORAL 05/08/19 18:00 06/07/19 17:59 05/18/19 17:20 Fluticasone Propionate (Flonase) 1 spray TWICE A DAY NASAL 05/14/19 18:00 06/13/19 17:59 05/18/19 17:19 Gabapentin (Neurontin) 300 mg THREE TIMES A DAY ORAL 05/07/19 13:00 06/05/19 08:59 05/18/19 17:20 Irbesartan (Avapro) 75 mg DAILY ORAL 05/16/19 09:00 06/15/19 08:59 05/18/19 09:34 Pantoprazole (Protonix) 40 mg EVERY 12 HOURS ORAL 05/07/19 21:00 06/05/19 20:59 05/18/19 09:37 Piperacillin Sod/ Tazobactam Sod 3.375 gm/Sodium Chloride 110 ml @ 27.5 mls/hr Q8H IVPB 05/14/19 12:00 05/21/19 11:59 05/18/19 12:11 Potassium Chloride (K-Dur) 40 meq BID ORAL 05/16/19 18:00 06/14/19 12:44 05/18/19 17:20 Cortney Jackson M.D. May 18, 2019 20:33
[2019-05-18] MEDS: Atorvastatin 20mg tab ORAL SCH (20:53)
[2019-05-18] MEDS: Doxazosin 1mg Tab ORAL SCH (20:54)
[2019-05-19] VITALS: BP 133/78
[2019-05-19 04:00] VITALS: BP 144/77
[2019-05-19] MEDS: Piperacillin/Tazobactam 3.375 GM in NS 110 ML IVPB SCH ×3 (04:09→20:44)
--- NOTE | 2019-05-19 07:20 | NUR ---
HAND-OFF: Report given to Amanuel THAO.
--- NOTE | 2019-05-19 08:04 | NUR ---
NURSE NOTES: received pt awake alert, no distress. no sob. no c/o pain. call light within reach. will monitor. on 4lnc, bmx1.
[2019-05-19 08:24] VITALS: BP 157/103
[2019-05-19] MEDS: Carvedilol 25mg Tab ORAL SCH ×2 (08:26→20:44)
[2019-05-19] MEDS: Digoxin 0.125mg tab ORAL SCH (08:26)
[2019-05-19] MEDS: Irbesartan 150mg tablet ORAL SCH (08:27)
[2019-05-19] MEDS: Docusate 100mg cap ORAL SCH ×3 (08:28→17:44)
[2019-05-19] MEDS: Eliquis 5mg tablet ORAL SCH ×2 (08:29→17:44)
--- NOTE | 2019-05-19 08:50 | Pulmonology Progress Note ---
Assessment/Plan Assessment/Plan Congestive heart failure Hypertension Chronic Obstructive Pulmonary Disease Obesity Obstructive Sleep Apnea Hypertension Diabetes Plan - spot dose diuresis prn, cont with diamox per renal - ABG pending - CXR pending - monitor off steroids - HHN - O2 PRN - noninvasive ventilation PRN/QHS - ISS - PPX Subjective ROS Limited/Unobtainable: No Interval Events: states short of breath still. refused cxr this AM. ABG not done Allergies: Coded Allergies: RIVAROXABAN (Verified Allergy, Unknown, 04/05/19) Objective Last 24 Hour Vital Signs Date Time Temp Pulse Resp B/P (MAP) Pulse Ox O2 Delivery O2 Flow Rate FiO2 05/19/19 08:27 157/103 05/19/19 08:26 69 05/19/19 08:26 69 157/103 05/19/19 08:24 97.9 69 16 157/103 (121) 95 05/19/19 07:50 92 Nasal Cannula 3.0 32 05/19/19 05:30 74 21 93 Facial 30 05/19/19 04:00 97.9 64 16 144/77 (99) 95 05/19/19 03:17 70 17 94 Facial 30 05/19/19 01:30 72 18 95 Facial 30 05/19/19 00:00 98.1 67 16 133/78 (96) 95 05/18/19 22:00 78 20 96 Facial 30 05/18/19 21:00 Nasal Cannula 2.0 05/18/19 20:53 77 159/80 05/18/19 20:00 97.7 77 16 159/80 (106) 99 05/18/19 20:00 93 Nasal Cannula 3.0 32 05/18/19 16:00 98.1 72 18 157/89 (111) 97 05/18/19 14:30 71 24 98 Facial 40 05/18/19 12:00 97.9 64 18 150/87 (108) 98 05/18/19 11:40 68 20 98 Nasal Cannula 3.0 32 63 18 97 05/18/19 11:40 63 18 97 Facial 40 05/18/19 09:39 93 Nasal Cannula 3.0 32 05/18/19 09:37 69 05/18/19 09:35 69 139/102 05/18/19 09:34 139/102 05/18/19 09:00 Nasal Cannula 2.0 Intake and Output 05/18/19 05/19/19 19:00 07:00 Intake Total 960 ml Output Total 2850 ml Balance 960 ml -2850 ml Intake Oral 960 ml Output Urine Total 2850 ml # Bowel Movements 1 HEENT: normocephalic, atraumatic Respiratory/Chest: lungs clear Cardiovascular: normal rate Abdomen: soft, non tender Extremities: no edema Neurologic/Psychiatric: alert Current Medications Medications (Trade) Dose Ordered Sig/David Route PRN Reason Start Time Stop Time Status Last Admin Dose Admin Acetaminophen (Tylenol) 650 mg Q6H PRN ORAL Mild Pain/Temp > 100.5 05/07/19 12:00 06/04/19 11:59 05/15/19 09:01 Acetaminophen/ Hydrocodone Bitart ([place] 10/325) 1 tab Q6H PRN ORAL Severe Breakthru Pain (>7) 05/17/19 13:00 05/24/19 12:59 05/18/19 04:27 Acetaminophen/ Hydrocodone Bitart ([place] 5/325) 1 tab Q6H PRN ORAL Moderate Pain (Pain Scale 4-6) 05/17/19 13:00 05/24/19 12:59 05/18/19 17:22 Acetazolamide (Diamox) 250 mg DAILY ORAL 05/18/19 15:00 06/17/19 14:59 05/19/19 08:26 Albuterol Sulfate (Proventil) 2.5 mg Q6H PRN HHN Shortness of Breath 05/16/19 19:15 05/21/19 19:14 05/18/19 12:40 Apixaban (Eliquis) 5 mg BID ORAL 05/09/19 23:15 06/08/19 23:14 05/19/19 08:29 Atorvastatin Calcium (Lipitor) 40 mg BEDTIME ORAL 05/07/19 21:00 06/04/19 20:59 05/18/19 20:53 Carvedilol (Coreg) 25 mg Q12HR ORAL 05/09/19 21:00 06/08/19 20:59 05/19/19 08:26 Clonidine HCl (Catapres Tab) 0.1 mg Q8H PRN ORAL For High Blood Pressure 05/10/19 14:00 06/09/19 13:59 05/15/19 21:34 Digoxin (Lanoxin) 0.125 mg DAILY ORAL 05/10/19 09:00 06/09/19 08:59 05/19/19 08:26 Docusate Sodium (Colace) 100 mg THREE TIMES A DAY ORAL 05/07/19 13:00 06/05/19 12:59 05/19/19 08:28 Doxazosin Mesylate (Cardura) 4 mg BEDTIME ORAL 05/17/19 21:00 06/16/19 20:59 05/18/19 20:54 Ferrous Sulfate (Feosol) 325 mg THREE TIMES A DAY ORAL 05/08/19 18:00 06/07/19 17:59 05/19/19 08:27 Fluticasone Propionate (Flonase) 1 spray TWICE A DAY NASAL 05/14/19 18:00 06/13/19 17:59 05/18/19 17:19 Gabapentin (Neurontin) 300 mg THREE TIMES A DAY ORAL 05/07/19 13:00 06/05/19 08:59 05/19/19 08:29 Irbesartan (Avapro) 75 mg DAILY ORAL 05/16/19 09:00 06/15/19 08:59 05/19/19 08:27 Pantoprazole (Protonix) 40 mg EVERY 12 HOURS ORAL 05/07/19 21:00 06/05/19 20:59 05/19/19 08:27 Piperacillin Sod/ Tazobactam Sod 3.375 gm/Sodium Chloride 110 ml @ 27.5 mls/hr Q8H IVPB 05/14/19 12:00 05/21/19 11:59 05/19/19 04:09 Potassium Chloride (K-Dur) 40 meq BID ORAL 05/16/19 18:00 06/14/19 12:44 05/19/19 08:27 Jass Hartman MD May 19, 2019 08:50
[2019-05-19] MEDS: Flonase Nasal Inhaler 16gm NASAL SCH ×2 (09:00→17:43)
--- NOTE | 2019-05-19 10:08 | NUR ---
CASE MANAGEMENT:REVIEW 05/19/19 SI:PNA. COPD. OBESITY 97.9 69 16 157/103 95% ON 3L/NC PCO2+67.0 PO2-63.5 HCO3+37.6 IS: DIAMOX PO QD IV ZOSYN Q8HRS CARDURA PO QHS K-DUR PO BID AVAPRO PO QD FLONASE BID DIGOXIN PO QD ELIQUIS PO BID COREG PO Q12 NEURONTIN PO TID : TELEMETRY STATUS DCP: FROM HOME W/OXYGEN PLAN:
[2019-05-19] MEDS: HYDROcodone/Acetamin 10/325 tab ORAL PRN ×3 (11:23→11:26)
[2019-05-19 12:00] VITALS: BP 180/103
--- NOTE | 2019-05-19 12:31 | NUR ---
NURSE NOTES: pt in the toilet at this time doing body wash , will give clonidine once done w wash. re sbp>160
[2019-05-19] MEDS ORDERED: HydrALAZINE 25mg tab ORAL SCH (14:30)
--- NOTE | 2019-05-19 15:50 | Nephrology Progress Note ---
Assessment/Plan Problem List: (1) Renal failure (2) Obesity, morbid, BMI 50 or higher (3) COPD (chronic obstructive pulmonary disease) (4) Electrolyte imbalance Assessment (1) Hypokalemia (2) CHF (congestive heart failure) (3) Renal failure (4) Obesity, morbid, BMI 50 or higher (5) CO2 retention (6) COPD (chronic obstructive pulmonary disease) elevated Cr likely due to diuresis Obesity , NATASHA AT fib with FVR HTN Congestive heart failure, likely diastolic dysfunction. EF 60% Recurrent NSVT. No syncope. Hypertension. Morbid obesity. COPD. Lipidemia. Plan K supplement Diamox and ABG- discussed with Dr Hartman stop NSAIDs UA Monitor Cr rising Keep BP in check Monitor lytes check B12 and Folic acid Diamox PO as needed per orders per cardio and pulmonary taper steroids as possible Subjective ROS Limited/Unobtainable: No Constitutional: Reports: malaise Objective Objective Last 24 Hour Vital Signs Date Time Temp Pulse Resp B/P (MAP) Pulse Ox O2 Delivery O2 Flow Rate FiO2 05/19/19 12:40 180/103 05/19/19 12:00 97.9 80 16 180/103 (128) 95 05/19/19 11:56 97.9 05/19/19 08:27 157/103 05/19/19 08:26 69 05/19/19 08:26 69 157/103 05/19/19 08:24 97.9 69 16 157/103 (121) 95 05/19/19 07:50 92 Nasal Cannula 3.0 32 05/19/19 05:30 74 21 93 Facial 30 05/19/19 04:00 97.9 64 16 144/77 (99) 95 05/19/19 03:17 70 17 94 Facial 30 05/19/19 01:30 72 18 95 Facial 30 05/19/19 00:00 98.1 67 16 133/78 (96) 95 05/18/19 22:00 78 20 96 Facial 30 05/18/19 21:00 Nasal Cannula 2.0 05/18/19 20:53 77 159/80 05/18/19 20:00 97.7 77 16 159/80 (106) 99 05/18/19 20:00 93 Nasal Cannula 3.0 32 05/18/19 16:00 98.1 72 18 157/89 (111) 97 Intake and Output 05/18/19 05/19/19 18:59 06:59 Intake Total 960 ml Output Total 2850 ml Balance 960 ml -2850 ml Intake Oral 960 ml Output Urine Total 2850 ml # Bowel Movements 1 Laboratory Tests 05/19/19 07:46: Arterial Blood pH 7.367, Arterial Blood Partial Pressure CO2 67.0*H, Arterial Blood Partial Pressure O2 63.5L, Arterial Blood HCO3 37.6H, Arterial Blood Oxygen Saturation 91.4L, Arterial Blood Base Excess 9.9*H, Kory Test Positive Height (Feet): 5 Height (Inches): 10.00 Weight (Pounds): 431 General Appearance: no apparent distress Respiratory/Chest: decreased breath sounds Abdomen: distended Objective no change Bebeto Yin MD May 19, 2019 15:50
[2019-05-19 16:00] VITALS: BP 150/80
--- NOTE | 2019-05-19 17:20 | NUR ---
NURSE NOTES: PT RECEIVED FROM TELEMETRY IN STABLE CONDITION. BELONGINGS CHECKED AT BEDSIDE, ALL ACCOUNTED. IN NO APPARENT DISTRESS AT THIS TIME. BIPAP AT BEDSIDE. CALL LIGHT WITHIN REACH. WILL CONTINUE TO MONITOR.
[2019-05-19] MEDS ORDERED: Albuterol ud Inhalation HHN PRN (17:40)
[2019-05-19] MEDS: HydrALAZINE 25mg tab ORAL SCH (17:44)
[2019-05-19] MEDS ORDERED: HYDROcodone/Acetamin 5/325 tab ORAL PRN (18:00)
--- NOTE | 2019-05-19 19:36 | NUR ---
HAND-OFF: Report given to So TANNER RN.
[2019-05-19 20:00] VITALS: BP 155/88
[2019-05-19] MEDS: Atorvastatin 20mg tab ORAL SCH (20:45)
[2019-05-20] VITALS: BP 158/86
--- NOTE | 2019-05-20 | NUR ---
NURSE NOTES: RECEIVED PATIENT FROM KEESHA MATHEW. PT IS AWAKE, AAOX4, ON NC 4L, NO ACUTE DISTRESS NOTED. IV ON LEFT AC 20G INTACT AND PATENT. SKIN INTACT. AMBULATE TO BATHROOM BY SELF. BED IS LOCKED AND LOW, BED ALARMS ACTIVE, SIDE RAILS UP X2 AND CALL LIGHT IS WITHIN REACH. WILL CONTINUE TO MONITOR.
[2019-05-20 04:00] VITALS: BP 175/91
[2019-05-20] MEDS: Piperacillin/Tazobactam 3.375 GM in NS 110 ML IVPB SCH ×3 (04:18→22:58)
[2019-05-20] MEDS: HYDROcodone/Acetamin 10/325 tab ORAL PRN ×2 (04:49→18:34)
--- NOTE | 2019-05-20 05:16 | NUR ---
NURSE NOTES: [facility] WAS DOWN FROM 2300 - 0400. PLEASE REFER TO PAPER CHARTING FOR MEDICATION ADMINISTRATION.
--- NOTE | 2019-05-20 06:30 | NUR ---
[facility] Downtime: On 05/19/2019 From 2200 to 0400 05/20/2019. The following electronic documentation will be located in the patient handwritten chart: Medication Administration Records
--- NOTE | 2019-05-20 07:45 | NUR ---
NURSE NOTES: Patient alert x4; on Nasal Cannula 4 Liters, no sing of distress and shortness of breath; no sing of chest pain; IV Left AC 20G Zosyn running; urinal within reach; side rials up x2, breaks engaged, bed at lowest position, call light within reach; will keep monitoring.
--- NOTE | 2019-05-20 07:54 | NUR ---
HAND-OFF: Report given to KEESHA Cao.
[2019-05-20 08:00] VITALS: BP 154/82
[2019-05-20] MEDS: Eliquis 5mg tablet ORAL SCH ×2 (08:51→17:27)
[2019-05-20] MEDS: Carvedilol 25mg Tab ORAL SCH ×2 (08:51→20:47)
[2019-05-20] MEDS: Docusate 100mg cap ORAL SCH ×3 (08:51→17:27)
[2019-05-20] MEDS: Irbesartan 150mg tablet ORAL SCH (08:52)
[2019-05-20] MEDS: Digoxin 0.125mg tab ORAL SCH (08:52)
[2019-05-20] MEDS: HydrALAZINE 25mg tab ORAL SCH ×3 (08:53→17:27)
[2019-05-20] MEDS: Flonase Nasal Inhaler 16gm NASAL SCH ×2 (09:21→17:27)
--- NOTE | 2019-05-20 10:11 | NUR ---
RADIOLOGY DEPT., CHEST X-RAY DONE.-P.DYE
--- NOTE | 2019-05-20 10:13 | Diagnostic Imaging Report ---
. Indication: Shortness of breath Technique: One view of the chest Comparison: 05/16/2019 Findings: The heart is enlarged. Right hemidiaphragm is elevated. There is bilateral interstitial and airspace edema. Findings are unchanged Impression: Unchanged, over 4 days, findings as above.
--- NOTE | 2019-05-20 11:42 | General Progress Note ---
Assessment/Plan Assessment/Plan: S: I can not go home O: seems comfortable. exertional sob with minimal activity. Ambulating in the room with assistance. 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 Acute COPD (chronic obstructive pulmonary disease) 3. Morbid obesity 4. HTN 5. Multiple joint OA 6. Afib-RVR 7. NATASHA 8. Refusal of Care 9. ARF Plan: stool for ob start iron supplement notes form pulmonary reviewed. Patient continues denying participation in PT optimise BP medication Disposition to SNF/plan of care DC morphine C/w NI-ventilation notes from CM reviewed comment: patient seen and examined on 05/19/19. Time of this Note does not reflect actual time of this encounter Subjective Allergies: Coded Allergies: RIVAROXABAN (Verified Allergy, Unknown, 04/05/19) Objective Last 24 Hour Vital Signs Date Time Temp Pulse Resp B/P (MAP) Pulse Ox O2 Delivery O2 Flow Rate FiO2 05/20/19 08:53 154/82 05/20/19 08:52 154/82 05/20/19 08:52 63 05/20/19 08:51 63 154/82 05/20/19 08:00 97.8 63 16 154/82 (106) 98 05/20/19 04:24 175/91 05/20/19 04:00 97.9 66 16 175/91 (119) 94 05/20/19 00:00 96.8 68 22 158/86 (110) 96 05/19/19 21:00 Nasal Cannula 2.0 05/19/19 20:44 71 155/80 05/19/19 20:00 98.3 71 20 155/88 (110) 95 05/19/19 17:44 147/103 05/19/19 16:00 97.9 80 16 150/80 (103) 95 05/19/19 12:40 180/103 05/19/19 12:00 97.9 80 16 180/103 (128) 95 05/19/19 11:56 97.9 Intake and Output 05/19/19 05/20/19 19:00 07:00 Intake Total 165.0 ml Balance 165.0 ml IV Total 165.0 ml # Voids 3 Height (Feet): 5 Height (Inches): 10.00 Weight (Pounds): 431 Desirae Haro MD May 20, 2019 11:42
[2019-05-20 12:00] VITALS: BP_SYST 118; BP_SYST 158; BP_DIAS 75; BP_DIAS 86
--- NOTE | 2019-05-20 14:07 | Infectious Diseases Prog Note ---
Assessment/Plan Problems: (1) Pneumonia Assessment & Plan: with cough productive , fever and SOB, continue zosyn empirically for 7-10 days , may switch to oral augmentin once discharged (2) COPD (chronic obstructive pulmonary disease) Assessment & Plan: Due to the above, improved with inhalers, and antibiotics (3) Obesity, morbid, BMI 50 or higher Assessment & Plan: recommend diet and exercise (4) Renal failure Assessment & Plan: improving follow up with renal (5) Fever Assessment & Plan: resolved, suspect pneumonia related, with no evidence of sepsis , and negative blood culture x 2 . continue antibiotics for 7-10 days Subjective Constitutional: Reports: no symptoms HEENT: Reports: no symptoms Respiratory: Reports: dry cough Breasts: Reports: no symptoms Cardiovascular: Reports: no symptoms Gastrointestinal/Abdominal: Reports: no symptoms Genitourinary: Reports: no symptoms Neurologic: Reports: no symptoms Psychiatric: Reports: no symptoms Skin: Reports: no symptoms Endocrine: Reports: no symptoms Hematologic: Reports: no symptoms Musculoskeletal: Reports: no symptoms Allergies: Coded Allergies: RIVAROXABAN (Verified Allergy, Unknown, 04/05/19) Objective Vital Signs Last 24 Hour Vital Signs Date Time Temp Pulse Resp B/P (MAP) Pulse Ox O2 Delivery O2 Flow Rate FiO2 05/20/19 12:08 158/86 05/20/19 12:00 98.1 57 20 118/75 (89) 97 05/20/19 08:53 154/82 05/20/19 08:52 154/82 05/20/19 08:52 63 05/20/19 08:51 63 154/82 05/20/19 08:00 97.8 63 16 154/82 (106) 98 05/20/19 04:24 175/91 05/20/19 04:00 97.9 66 16 175/91 (119) 94 05/20/19 00:00 96.8 68 22 158/86 (110) 96 05/19/19 21:00 Nasal Cannula 2.0 05/19/19 20:44 71 155/80 05/19/19 20:00 98.3 71 20 155/88 (110) 95 05/19/19 17:44 147/103 05/19/19 16:00 97.9 80 16 150/80 (103) 95 Height (Feet): 5 Height (Inches): 10.00 Weight (Pounds): 431 General Appearance: WD/WN, no acute distress HEENT: normocephalic, atraumatic, anicteric, mucous membranes moist, PERRL Respiratory/Chest: chest wall non-tender, normal breath sounds, no respiratory distress, no accessory muscle use, decreased breath sounds Cardiovascular: normal peripheral pulses, normal rate, regular rhythm, no gallop/murmur, no JVD Abdomen: normal bowel sounds, soft, non tender, no organomegaly, non distended , no mass, no scars Extremities: no cyanosis, no clubbing Skin: no rash, no lesions, no ulcers Neurologic/Psychiatric: alert, responsive Lymphatic: no neck adenopathy, no groin adenopathy Musculoskeletal: normal muscle bulk, no effusion Current Medications Medications (Trade) Dose Ordered Sig/David Route PRN Reason Start Time Stop Time Status Last Admin Dose Admin Acetaminophen (Tylenol) 650 mg Q6H PRN ORAL Mild Pain/Temp > 100.5 05/19/19 18:00 06/04/19 11:59 Acetaminophen/ Hydrocodone Bitart ([place] 10/325) 1 tab Q6H PRN ORAL Severe Breakthru Pain (>7) 05/19/19 18:00 05/24/19 17:59 Acetaminophen/ Hydrocodone Bitart ([place] 5/325) 1 tab Q6H PRN ORAL Moderate Pain (Pain Scale 4-6) 05/19/19 18:00 05/24/19 17:59 Acetazolamide (Diamox) 250 mg BID ORAL 05/19/19 18:00 06/17/19 14:59 05/20/19 08:51 Albuterol Sulfate (Proventil) 2.5 mg Q6H PRN HHN Shortness of Breath 05/19/19 17:40 05/21/19 17:39 Apixaban (Eliquis) 5 mg BID ORAL 05/19/19 18:00 06/08/19 23:14 05/20/19 08:51 Atorvastatin Calcium (Lipitor) 40 mg BEDTIME ORAL 05/19/19 21:00 06/04/19 20:59 05/19/19 20:45 Carvedilol (Coreg) 25 mg Q12HR ORAL 05/19/19 21:00 06/08/19 20:59 05/20/19 08:51 Clonidine HCl (Catapres Tab) 0.1 mg Q8H PRN ORAL For High Blood Pressure 05/19/19 18:00 06/09/19 17:59 05/20/19 04:24 Digoxin (Lanoxin) 0.125 mg DAILY ORAL 05/20/19 09:00 06/09/19 08:59 05/20/19 08:52 Docusate Sodium (Colace) 100 mg THREE TIMES A DAY ORAL 05/19/19 18:00 06/05/19 12:59 05/20/19 12:08 Ferrous Sulfate (Feosol) 325 mg THREE TIMES A DAY ORAL 05/19/19 18:00 06/07/19 17:59 05/20/19 12:09 Fluticasone Propionate (Flonase) 1 spray TWICE A DAY NASAL 05/19/19 18:00 06/13/19 17:59 05/20/19 09:21 Gabapentin (Neurontin) 300 mg THREE TIMES A DAY ORAL 05/19/19 18:00 06/05/19 08:59 05/20/19 12:09 Hydralazine HCl (Apresoline) 25 mg THREE TIMES A DAY ORAL 05/19/19 18:00 06/18/19 14:29 05/20/19 12:08 Irbesartan (Avapro) 75 mg DAILY ORAL 05/20/19 09:00 06/15/19 08:59 05/20/19 08:52 Pantoprazole (Protonix) 40 mg EVERY 12 HOURS ORAL 05/19/19 21:00 06/05/19 20:59 05/20/19 08:52 Piperacillin Sod/ Tazobactam Sod 3.375 gm/Sodium Chloride 110 ml @ 27.5 mls/hr Q8H IVPB 05/19/19 20:00 05/21/19 11:59 05/20/19 12:09 Potassium Chloride (K-Dur) 40 meq BID ORAL 05/19/19 18:00 06/14/19 12:44 05/20/19 08:53 Cortney Jackson M.D. May 20, 2019 14:07
--- NOTE | 2019-05-20 14:24 | Pulmonology Progress Note ---
Assessment/Plan Assessment/Plan Congestive heart failure Hypertension Chronic Obstructive Pulmonary Disease Obesity Obstructive Sleep Apnea Hypertension Diabetes Plan - spot dose diuresis prn, cont with diamox per renal - chem panel AM - CXR pending - monitor off steroids - HHN - O2 PRN - noninvasive ventilation PRN/QHS - ISS - PPX Subjective ROS Limited/Unobtainable: No Interval Events: Off oxygen. Breathing stable. Wants more pain meds. Constitutional: Reports: no symptoms Respiratory: Reports: no symptoms Cardiovascular: Reports: no symptoms Gastrointestinal/Abdominal: Reports: no symptoms Musculoskeletal: Reports: no symptoms Allergies: Coded Allergies: RIVAROXABAN (Verified Allergy, Unknown, 04/05/19) Objective Last 24 Hour Vital Signs Date Time Temp Pulse Resp B/P (MAP) Pulse Ox O2 Delivery O2 Flow Rate FiO2 05/20/19 12:08 158/86 05/20/19 12:00 98.1 57 20 118/75 (89) 97 05/20/19 08:53 154/82 05/20/19 08:52 154/82 05/20/19 08:52 63 05/20/19 08:51 63 154/82 05/20/19 08:00 97.8 63 16 154/82 (106) 98 05/20/19 04:24 175/91 05/20/19 04:00 97.9 66 16 175/91 (119) 94 05/20/19 00:00 96.8 68 22 158/86 (110) 96 05/19/19 21:00 Nasal Cannula 2.0 05/19/19 20:44 71 155/80 05/19/19 20:00 98.3 71 20 155/88 (110) 95 05/19/19 17:44 147/103 05/19/19 16:00 97.9 80 16 150/80 (103) 95 Intake and Output 05/19/19 05/20/19 19:00 07:00 Intake Total 165.0 ml Balance 165.0 ml IV Total 165.0 ml # Voids 3 General Appearance: no acute distress HEENT: mucous membranes moist Respiratory/Chest: lungs clear Cardiovascular: normal rate Abdomen: soft, non tender Extremities: other - edema Neurologic/Psychiatric: alert Current Medications Medications (Trade) Dose Ordered Sig/David Route PRN Reason Start Time Stop Time Status Last Admin Dose Admin Acetaminophen (Tylenol) 650 mg Q6H PRN ORAL Mild Pain/Temp > 100.5 05/19/19 18:00 06/04/19 11:59 Acetaminophen/ Hydrocodone Bitart ([place] 10/325) 1 tab Q6H PRN ORAL Severe Breakthru Pain (>7) 05/19/19 18:00 05/24/19 17:59 Acetaminophen/ Hydrocodone Bitart ([place] 5/325) 1 tab Q6H PRN ORAL Moderate Pain (Pain Scale 4-6) 05/19/19 18:00 05/24/19 17:59 Acetazolamide (Diamox) 250 mg BID ORAL 05/19/19 18:00 06/17/19 14:59 05/20/19 08:51 Albuterol Sulfate (Proventil) 2.5 mg Q6H PRN HHN Shortness of Breath 05/19/19 17:40 05/21/19 17:39 Apixaban (Eliquis) 5 mg BID ORAL 05/19/19 18:00 06/08/19 23:14 05/20/19 08:51 Atorvastatin Calcium (Lipitor) 40 mg BEDTIME ORAL 05/19/19 21:00 06/04/19 20:59 05/19/19 20:45 Carvedilol (Coreg) 25 mg Q12HR ORAL 05/19/19 21:00 06/08/19 20:59 05/20/19 08:51 Clonidine HCl (Catapres Tab) 0.1 mg Q8H PRN ORAL For High Blood Pressure 05/19/19 18:00 06/09/19 17:59 05/20/19 04:24 Digoxin (Lanoxin) 0.125 mg DAILY ORAL 05/20/19 09:00 06/09/19 08:59 05/20/19 08:52 Docusate Sodium (Colace) 100 mg THREE TIMES A DAY ORAL 05/19/19 18:00 06/05/19 12:59 05/20/19 12:08 Ferrous Sulfate (Feosol) 325 mg THREE TIMES A DAY ORAL 05/19/19 18:00 06/07/19 17:59 05/20/19 12:09 Fluticasone Propionate (Flonase) 1 spray TWICE A DAY NASAL 05/19/19 18:00 06/13/19 17:59 05/20/19 09:21 Gabapentin (Neurontin) 300 mg THREE TIMES A DAY ORAL 05/19/19 18:00 06/05/19 08:59 05/20/19 12:09 Hydralazine HCl (Apresoline) 25 mg THREE TIMES A DAY ORAL 05/19/19 18:00 06/18/19 14:29 05/20/19 12:08 Irbesartan (Avapro) 75 mg DAILY ORAL 05/20/19 09:00 06/15/19 08:59 05/20/19 08:52 Pantoprazole (Protonix) 40 mg EVERY 12 HOURS ORAL 05/19/19 21:00 06/05/19 20:59 05/20/19 08:52 Piperacillin Sod/ Tazobactam Sod 3.375 gm/Sodium Chloride 110 ml @ 27.5 mls/hr Q8H IVPB 05/19/19 20:00 05/21/19 11:59 05/20/19 12:09 Potassium Chloride (K-Dur) 40 meq BID ORAL 05/19/19 18:00 06/14/19 12:44 05/20/19 08:53 Jass Hartman MD May 20, 2019 14:24
--- NOTE | 2019-05-20 15:10 | NUR ---
P.T. NOTES ADDENDUM S/P: APPROACHED PATIENT'S ROOM IN THE P.M. PATIENT FOUND IN A HIGH SEMI-CANALES'S POSITION IN BED. PATIENT DECLINED P.T. TX. PATIENT STATED THAT HE WAS VERY COLD AND IN PAIN. NOTIFIED RN OF PATIENT'S STATUS. WILL F/U NEXT TX. TIME AND CONT WITH P.T. PLAN. RSABADO.
--- NOTE | 2019-05-20 15:13 | Nephrology Progress Note ---
Assessment/Plan Problem List: (1) Renal failure (2) Obesity, morbid, BMI 50 or higher (3) COPD (chronic obstructive pulmonary disease) (4) Electrolyte imbalance Assessment (1) Hypokalemia (2) CHF (congestive heart failure) (3) Renal failure (4) Obesity, morbid, BMI 50 or higher (5) CO2 retention (6) COPD (chronic obstructive pulmonary disease) elevated Cr likely due to diuresis Obesity , NATASHA AT fib with FVR HTN Congestive heart failure, likely diastolic dysfunction. EF 60% Recurrent NSVT. No syncope. Hypertension. Morbid obesity. COPD. Lipidemia. Plan K supplement Diamox and ABG- discussed with Dr Hartman stop NSAIDs UA Monitor Cr rising Keep BP in check Monitor lytes check B12 and Folic acid Diamox PO as needed per orders per cardio and pulmonary taper steroids as possible Subjective ROS Limited/Unobtainable: No Objective Objective Last 24 Hour Vital Signs Date Time Temp Pulse Resp B/P (MAP) Pulse Ox O2 Delivery O2 Flow Rate FiO2 05/20/19 12:08 158/86 05/20/19 12:00 98.1 57 20 118/75 (89) 97 05/20/19 08:53 154/82 05/20/19 08:52 154/82 05/20/19 08:52 63 05/20/19 08:51 63 154/82 05/20/19 08:00 97.8 63 16 154/82 (106) 98 05/20/19 04:24 175/91 05/20/19 04:00 97.9 66 16 175/91 (119) 94 05/20/19 00:00 96.8 68 22 158/86 (110) 96 05/19/19 21:00 Nasal Cannula 2.0 05/19/19 20:44 71 155/80 05/19/19 20:00 98.3 71 20 155/88 (110) 95 05/19/19 17:44 147/103 05/19/19 16:00 97.9 80 16 150/80 (103) 95 Intake and Output 05/19/19 05/20/19 19:00 07:00 Intake Total 165.0 ml Balance 165.0 ml IV Total 165.0 ml # Voids 3 Height (Feet): 5 Height (Inches): 10.00 Weight (Pounds): 431 General Appearance: no apparent distress, lethargic Cardiovascular: bradycardia Respiratory/Chest: decreased breath sounds Abdomen: distended Objective no change Bebeto Yin MD May 20, 2019 15:13
[2019-05-20 16:00] VITALS: BP 157/88
--- NOTE | 2019-05-20 16:38 | NUR ---
CASE MANAGEMENT:REVIEW 05/20/19 SI:PNA. COPD. OBESITY 98.0 65 19 157/88 95% ON 3L/NC IS: DIAMOX PO QD IV ZOSYN Q8HRS CARDURA PO QHS CLONIDINE PO Q8HR /PRN K-DUR PO BID AVAPRO PO QD FLONASE BID DIGOXIN PO QD HYDRALAZINE PO TID ELIQUIS PO BID COREG PO BID NEURONTIN PO TID PROTONIX PO BID : [id number] MED SURG UNIT DCP: FROM HOME W/OXYGEN PLAN: HIGHER LEVEL OF CARE PLACEMENT
--- NOTE | 2019-05-20 19:20 | NUR ---
NURSE NOTES: Pt received in bed awake, alert, able to make needs known, call light twi Addendum: 05/20/19 at 2103 by JONATHAN BAXTER RN call light within reach, bipap at bedside, head of bed elevated, will continue to monitor.
--- NOTE | 2019-05-20 19:26 | NUR ---
HAND-OFF: Report given to KEESHA Lopez.
[2019-05-20 20:00] VITALS: BP 172/103
[2019-05-20] MEDS: Atorvastatin 20mg tab ORAL SCH (20:48)
[2019-05-21] VITALS: BP 160/80
[2019-05-21] MEDS: Piperacillin/Tazobactam 3.375 GM in NS 110 ML IVPB SCH ×3 (05:14→20:15)
--- NOTE | 2019-05-21 07:20 | NUR ---
HAND-OFF: Report given to KEESHA Cao.
--- NOTE | 2019-05-21 07:33 | NUR ---
NURSE NOTES: Patient alert x4; on Nasal Cannula 5 Liter, Bipap at the bed side; no sign of chest pain; IV Left AC 20G Zosyn running; urinal within reach; side rails up x2, breaks engaged, bed at lowest position; call light within reach; will keep monitoring.
[2019-05-21 08:00] VITALS: BP 150/88
[2019-05-21 08:18] LABS: BASOPHILS % (AUTO) 0.8 % (0.0-2.0); EOSINOPHILS % (AUTO) 2.3 % (0.0-3.0); HEMATOCRIT 34.9 % (42.0-52.0); HEMOGLOBIN 11.2 G/DL (14.2-18.0); LYMPHOCYTES % (AUTO) 20.9 % (20.0-45.0); MEAN CORPUSCULAR VOLUME 79 FL (80-99); NEUTROPHILS % (AUTO) 68.9 % (45.0-75.0); PLATELET COUNT 207 K/UL (150-450); RED BLOOD COUNT 4.45 M/UL (4.70-6.10); RED CELL DISTRIBUTION WIDTH 15.9 % (11.6-14.8); WHITE BLOOD COUNT 8.8 K/UL (4.8-10.8)
[2019-05-21 08:32] LABS: PHOSPHORUS 4.1 MG/DL (2.5-4.9)
[2019-05-21] MEDS: Flonase Nasal Inhaler 16gm NASAL SCH ×2 (08:36→17:20)
[2019-05-21] MEDS: Irbesartan 150mg tablet ORAL SCH (08:36)
[2019-05-21] MEDS: Digoxin 0.125mg tab ORAL SCH (08:36)
[2019-05-21] MEDS: HydrALAZINE 25mg tab ORAL SCH ×2 (08:37→12:28)
[2019-05-21] MEDS: Docusate 100mg cap ORAL SCH ×3 (08:37→17:19)
[2019-05-21] MEDS: Eliquis 5mg tablet ORAL SCH ×2 (08:37→17:19)
[2019-05-21] MEDS: Carvedilol 25mg Tab ORAL SCH ×2 (08:37→20:17)
[2019-05-21 09:21] LABS: ALANINE AMINOTRANSFERASE 18 U/L (12-78); ALBUMIN/GLOBULIN RATIO 0.9 (1.0-2.7); ALKALINE PHOSPHATASE 51 U/L (46-116); ANION GAP 8 mmol/L (5-15); ASPARTATE AMINO TRANSFERASE 15 U/L (15-37); BILIRUBIN,TOTAL 0.2 MG/DL (0.2-1.0); BLOOD UREA NITROGEN 14 mg/dL (7-18); CALCIUM 8.4 MG/DL (8.5-10.1); CARBON DIOXIDE 31 MMOL/L (21-32); CHLORIDE 109 MMOL/L (98-107); CREATININE 1.3 MG/DL (0.55-1.30); POTASSIUM 3.8 MMOL/L (3.5-5.1); SODIUM 148 MMOL/L (136-145)
--- NOTE | 2019-05-21 11:03 | Nephrology Progress Note ---
Assessment/Plan Problem List: (1) Renal failure (2) Obesity, morbid, BMI 50 or higher (3) COPD (chronic obstructive pulmonary disease) (4) Electrolyte imbalance Assessment (1) Hypokalemia (2) CHF (congestive heart failure) (3) Renal failure (4) Obesity, morbid, BMI 50 or higher (5) CO2 retention (6) COPD (chronic obstructive pulmonary disease) elevated Cr likely due to diuresis Obesity , NATASHA AT fib with FVR HTN Congestive heart failure, likely diastolic dysfunction. EF 60% Recurrent NSVT. No syncope. Hypertension. Morbid obesity. COPD. Lipidemia. Plan K supplement as needed DC DIamox stop NSAIDs UA Monitor Cr rising Keep BP in check Monitor lytes check B12 and Folic acid Diamox PO as needed per orders per cardio and pulmonary taper steroids as possible Subjective ROS Limited/Unobtainable: No Constitutional: Reports: malaise, weakness Objective Objective Last 24 Hour Vital Signs Date Time Temp Pulse Resp B/P (MAP) Pulse Ox O2 Delivery O2 Flow Rate FiO2 05/21/19 08:37 150/88 05/21/19 08:37 73 150/88 05/21/19 08:36 150/88 05/21/19 08:36 73 05/21/19 08:00 97.9 73 17 150/88 (108) 94 05/21/19 04:41 71 20 95 Facial 30 05/21/19 03:25 68 21 96 Facial 30 05/21/19 01:24 66 23 96 Facial 30 05/21/19 00:00 97.6 62 18 160/80 (106) 96 05/20/19 23:57 65 16 98 Nasal Cannula 3.0 32 05/20/19 21:00 Nasal Cannula 2.0 05/20/19 20:54 98 Nasal Cannula 3.0 32 05/20/19 20:47 76 172/103 05/20/19 20:00 98.8 76 18 172/103 (126) 98 05/20/19 19:04 98.0 05/20/19 17:27 157/88 05/20/19 16:00 98.0 65 19 157/88 (111) 95 05/20/19 12:08 158/86 05/20/19 12:00 98.1 57 20 118/75 (89) 97 Intake and Output 05/20/19 05/21/19 19:00 07:00 Intake Total 965.0 ml 27.5 ml Balance 965.0 ml 27.5 ml Intake Oral 800 ml IV Total 165.0 ml 27.5 ml # Voids 6 4 Laboratory Tests 05/21/19 06:45: White Blood Count 8.8, Red Blood Count 4.45L, Hemoglobin 11.2L, Hematocrit 34.9L , Mean Corpuscular Volume 79L, Mean Corpuscular Hemoglobin 25.1L, Mean Corpuscular Hemoglobin Concent 32.0, Red Cell Distribution Width 15.9H, Platelet Count 207, Mean Platelet Volume 9.3, Neutrophils (%) (Auto) 68.9, Lymphocytes (%) (Auto) 20.9, Monocytes (%) (Auto) 7.0, Eosinophils (%) (Auto) 2.3, Basophils (%) (Auto) 0.8, Sodium Level 148H, Potassium Level 3.8, Chloride Level 109H, Carbon Dioxide Level 31, Anion Gap 8, Blood Urea Nitrogen 14, Creatinine 1.3, Estimat Glomerular Filtration Rate > 60, Glucose Level 120H, Uric Acid 4.5, Calcium Level 8.4L, Phosphorus Level 4.1, Magnesium Level 2.1, Total Bilirubin 0.2, Aspartate Amino Transf (AST/SGOT) 15, Alanine Aminotransferase (ALT/SGPT) 18, Alkaline Phosphatase 51, C-Reactive Protein, Quantitative 1.2H, Total Protein 6.5, Albumin 3.0L, Globulin 3.5, Albumin/ Globulin Ratio 0.9L Height (Feet): 5 Height (Inches): 10.00 Weight (Pounds): 431 General Appearance: no apparent distress EENT: other - BIPAP Cardiovascular: normal rate Respiratory/Chest: decreased breath sounds Abdomen: distended Objective no change Bebeto Yin MD May 21, 2019 11:03
[2019-05-21 12:00] VITALS: BP 165/106
--- NOTE | 2019-05-21 13:21 | Pulmonology Progress Note ---
Assessment/Plan Assessment/Plan Congestive heart failure Hypertension Chronic Obstructive Pulmonary Disease Obesity Obstructive Sleep Apnea Hypertension Diabetes Plan - spot dose diuresis prn, cont with diamox per renal - chem panel f/u - monitor off steroids - HHN - O2 PRN - noninvasive ventilation PRN/QHS - ISS - PPX Subjective Interval Events: breathing better. Using BiPAP. No cough Constitutional: Reports: no symptoms HEENT: Repors: no symptoms Respiratory: Reports: no symptoms Cardiovascular: Reports: no symptoms Gastrointestinal/Abdominal: Reports: no symptoms Genitourinary: Reports: no symptoms Neurologic: Reports: no symptoms Allergies: Coded Allergies: RIVAROXABAN (Verified Allergy, Unknown, 04/05/19) Objective Last 24 Hour Vital Signs Date Time Temp Pulse Resp B/P (MAP) Pulse Ox O2 Delivery O2 Flow Rate FiO2 05/21/19 12:28 165/106 05/21/19 12:00 98.8 73 19 165/106 (125) 96 05/21/19 09:32 95 Nasal Cannula 3.0 32 05/21/19 08:37 150/88 05/21/19 08:37 73 150/88 05/21/19 08:36 150/88 05/21/19 08:36 73 05/21/19 08:00 97.9 73 17 150/88 (108) 94 05/21/19 04:41 71 20 95 Facial 30 05/21/19 03:25 68 21 96 Facial 30 05/21/19 01:24 66 23 96 Facial 30 05/21/19 00:00 97.6 62 18 160/80 (106) 96 05/20/19 23:57 65 16 98 Nasal Cannula 3.0 32 05/20/19 21:00 Nasal Cannula 2.0 05/20/19 20:54 98 Nasal Cannula 3.0 32 05/20/19 20:47 76 172/103 05/20/19 20:00 98.8 76 18 172/103 (126) 98 05/20/19 19:04 98.0 05/20/19 17:27 157/88 05/20/19 16:00 98.0 65 19 157/88 (111) 95 Intake and Output 05/20/19 05/21/19 19:00 07:00 Intake Total 965.0 ml 27.5 ml Balance 965.0 ml 27.5 ml Intake Oral 800 ml IV Total 165.0 ml 27.5 ml # Voids 6 4 General Appearance: no acute distress Respiratory/Chest: lungs clear Cardiovascular: normal rate Abdomen: soft, non tender Extremities: other - edema Laboratory Tests 05/21/19 06:45: White Blood Count 8.8, Red Blood Count 4.45L, Hemoglobin 11.2L, Hematocrit 34.9L , Mean Corpuscular Volume 79L, Mean Corpuscular Hemoglobin 25.1L, Mean Corpuscular Hemoglobin Concent 32.0, Red Cell Distribution Width 15.9H, Platelet Count 207, Mean Platelet Volume 9.3, Neutrophils (%) (Auto) 68.9, Lymphocytes (%) (Auto) 20.9, Monocytes (%) (Auto) 7.0, Eosinophils (%) (Auto) 2.3, Basophils (%) (Auto) 0.8, Sodium Level 148H, Potassium Level 3.8, Chloride Level 109H, Carbon Dioxide Level 31, Anion Gap 8, Blood Urea Nitrogen 14, Creatinine 1.3, Estimat Glomerular Filtration Rate > 60, Glucose Level 120H, Uric Acid 4.5, Calcium Level 8.4L, Phosphorus Level 4.1, Magnesium Level 2.1, Total Bilirubin 0.2, Aspartate Amino Transf (AST/SGOT) 15, Alanine Aminotransferase (ALT/SGPT) 18, Alkaline Phosphatase 51, C-Reactive Protein, Quantitative 1.2H, Total Protein 6.5, Albumin 3.0L, Globulin 3.5, Albumin/ Globulin Ratio 0.9L Current Medications Medications (Trade) Dose Ordered Sig/David Route PRN Reason Start Time Stop Time Status Last Admin Dose Admin Acetaminophen (Tylenol) 650 mg Q6H PRN ORAL Mild Pain/Temp > 100.5 05/19/19 18:00 06/04/19 11:59 Acetaminophen/ Hydrocodone Bitart ([place] 10/325) 1 tab Q6H PRN ORAL Severe Breakthru Pain (>7) 05/19/19 18:00 05/24/19 17:59 05/20/19 18:34 Acetaminophen/ Hydrocodone Bitart ([place] 5/325) 1 tab Q6H PRN ORAL Moderate Pain (Pain Scale 4-6) 05/19/19 18:00 05/24/19 17:59 Albuterol Sulfate (Proventil) 2.5 mg Q6H PRN HHN Shortness of Breath 05/19/19 17:40 05/21/19 17:39 Apixaban (Eliquis) 5 mg BID ORAL 05/19/19 18:00 06/08/19 23:14 05/21/19 08:37 Atorvastatin Calcium (Lipitor) 40 mg BEDTIME ORAL 05/19/19 21:00 06/04/19 20:59 05/20/19 20:48 Carvedilol (Coreg) 25 mg Q12HR ORAL 05/19/19 21:00 06/08/19 20:59 05/21/19 08:37 Clonidine HCl (Catapres Tab) 0.1 mg Q8H PRN ORAL For High Blood Pressure 05/19/19 18:00 06/09/19 17:59 05/20/19 04:24 Digoxin (Lanoxin) 0.125 mg DAILY ORAL 05/20/19 09:00 06/09/19 08:59 05/21/19 08:36 Docusate Sodium (Colace) 100 mg THREE TIMES A DAY ORAL 05/19/19 18:00 06/05/19 12:59 05/21/19 12:27 Ferrous Sulfate (Feosol) 325 mg THREE TIMES A DAY ORAL 05/19/19 18:00 06/07/19 17:59 05/21/19 12:28 Fluticasone Propionate (Flonase) 1 spray TWICE A DAY NASAL 05/19/19 18:00 06/13/19 17:59 05/21/19 08:36 Gabapentin (Neurontin) 300 mg THREE TIMES A DAY ORAL 05/19/19 18:00 06/05/19 08:59 05/21/19 12:27 Hydralazine HCl (Apresoline) 25 mg THREE TIMES A DAY ORAL 05/19/19 18:00 06/18/19 14:29 05/21/19 12:28 Irbesartan (Avapro) 75 mg DAILY ORAL 05/20/19 09:00 06/15/19 08:59 05/21/19 08:36 Pantoprazole (Protonix) 40 mg EVERY 12 HOURS ORAL 05/19/19 21:00 06/05/19 20:59 05/21/19 08:37 Piperacillin Sod/ Tazobactam Sod 3.375 gm/Sodium Chloride 110 ml @ 27.5 mls/hr Q8H IVPB 05/19/19 20:00 05/24/19 23:59 05/21/19 12:28 Potassium Chloride (K-Dur) 40 meq BID ORAL 05/19/19 18:00 06/14/19 12:44 05/21/19 08:37 Jass Hartman MD May 21, 2019 13:21
--- NOTE | 2019-05-21 13:22 | General Progress Note ---
Assessment/Plan Assessment/Plan: S: I can not go home O: seems comfortable. exertional sob with minimal activity. Ambulating in the room with assistance. Physical Exam General Appearance: alert, GCS 15, obese, Chronically Ill Head: normocephalic Eyes: bilateral eye PERRL ENT: TMs + canals normal, uvula midline Neck: full range of motion Respiratory : lungs clear, decreased breath sounds Cardiovascular #1: edema - 1+ Edema Gastrointestinal: normal inspection, normal bowel sounds, non tender Musculoskeletal: normal inspection Neurologic: alert, motor strength/tone normal, bilingual trainer III-XII nml as tested, oriented x3 Psychiatric: normal inspection Skin: other - Bilateral scaly rash to the lower extremities Labs and Meds: reviewed and reconciled Assessment/Plan: 1. Acute COPD (chronic obstructive pulmonary disease) 3. Morbid obesity 4. HTN 5. Multiple joint OA 6. Afib-RVR 7. NATASHA 8. Refusal of Care 9. ARF Plan: stool for ob start iron supplement notes form pulmonary reviewed. Patient continues denying participation in PT optimise BP medication Disposition to SNF/plan of care DC morphine C/w NI-ventilation notes from CM reviewed Subjective Allergies: Coded Allergies: RIVAROXABAN (Verified Allergy, Unknown, 04/05/19) Objective Last 24 Hour Vital Signs Date Time Temp Pulse Resp B/P (MAP) Pulse Ox O2 Delivery O2 Flow Rate FiO2 05/21/19 12:28 165/106 05/21/19 12:00 98.8 73 19 165/106 (125) 96 05/21/19 09:32 95 Nasal Cannula 3.0 32 05/21/19 08:37 150/88 05/21/19 08:37 73 150/88 05/21/19 08:36 150/88 05/21/19 08:36 73 05/21/19 08:00 97.9 73 17 150/88 (108) 94 05/21/19 04:41 71 20 95 Facial 30 05/21/19 03:25 68 21 96 Facial 30 05/21/19 01:24 66 23 96 Facial 30 05/21/19 00:00 97.6 62 18 160/80 (106) 96 05/20/19 23:57 65 16 98 Nasal Cannula 3.0 32 05/20/19 21:00 Nasal Cannula 2.0 05/20/19 20:54 98 Nasal Cannula 3.0 32 05/20/19 20:47 76 172/103 05/20/19 20:00 98.8 76 18 172/103 (126) 98 05/20/19 19:04 98.0 05/20/19 17:27 157/88 05/20/19 16:00 98.0 65 19 157/88 (111) 95 Intake and Output 05/20/19 05/21/19 19:00 07:00 Intake Total 965.0 ml 27.5 ml Balance 965.0 ml 27.5 ml Intake Oral 800 ml IV Total 165.0 ml 27.5 ml # Voids 6 4 Laboratory Tests 05/21/19 06:45: White Blood Count 8.8, Red Blood Count 4.45L, Hemoglobin 11.2L, Hematocrit 34.9L , Mean Corpuscular Volume 79L, Mean Corpuscular Hemoglobin 25.1L, Mean Corpuscular Hemoglobin Concent 32.0, Red Cell Distribution Width 15.9H, Platelet Count 207, Mean Platelet Volume 9.3, Neutrophils (%) (Auto) 68.9, Lymphocytes (%) (Auto) 20.9, Monocytes (%) (Auto) 7.0, Eosinophils (%) (Auto) 2.3, Basophils (%) (Auto) 0.8, Sodium Level 148H, Potassium Level 3.8, Chloride Level 109H, Carbon Dioxide Level 31, Anion Gap 8, Blood Urea Nitrogen 14, Creatinine 1.3, Estimat Glomerular Filtration Rate > 60, Glucose Level 120H, Uric Acid 4.5, Calcium Level 8.4L, Phosphorus Level 4.1, Magnesium Level 2.1, Total Bilirubin 0.2, Aspartate Amino Transf (AST/SGOT) 15, Alanine Aminotransferase (ALT/SGPT) 18, Alkaline Phosphatase 51, C-Reactive Protein, Quantitative 1.2H, Total Protein 6.5, Albumin 3.0L, Globulin 3.5, Albumin/ Globulin Ratio 0.9L Height (Feet): 5 Height (Inches): 10.00 Weight (Pounds): 431 Desirae Haro MD May 21, 2019 13:21
--- NOTE | 2019-05-21 13:53 | Infectious Diseases Prog Note ---
Assessment/Plan Problems: (1) Pneumonia Assessment & Plan: with cough productive , fever and SOB, continue zosyn empirically for 7-10 days , may switch to oral augmentin once discharged (2) COPD (chronic obstructive pulmonary disease) Assessment & Plan: Due to the above, improved with inhalers, and antibiotics (3) Obesity, morbid, BMI 50 or higher Assessment & Plan: recommend diet and exercise (4) Renal failure Assessment & Plan: improving follow up with renal (5) Fever Assessment & Plan: resolved, suspect pneumonia related, with no evidence of sepsis , and negative blood culture x 2 . continue antibiotics for 7-10 days Subjective Constitutional: Reports: no symptoms HEENT: Reports: no symptoms Respiratory: Reports: dry cough Breasts: Reports: no symptoms Cardiovascular: Reports: no symptoms Gastrointestinal/Abdominal: Reports: no symptoms Genitourinary: Reports: no symptoms Neurologic: Reports: no symptoms Psychiatric: Reports: no symptoms Skin: Reports: no symptoms Endocrine: Reports: no symptoms Hematologic: Reports: no symptoms Musculoskeletal: Reports: no symptoms Allergies: Coded Allergies: RIVAROXABAN (Verified Allergy, Unknown, 04/05/19) Objective Vital Signs Last 24 Hour Vital Signs Date Time Temp Pulse Resp B/P (MAP) Pulse Ox O2 Delivery O2 Flow Rate FiO2 05/21/19 12:28 165/106 05/21/19 12:00 98.8 73 19 165/106 (125) 96 05/21/19 09:32 95 Nasal Cannula 3.0 32 05/21/19 08:37 150/88 05/21/19 08:37 73 150/88 05/21/19 08:36 150/88 05/21/19 08:36 73 05/21/19 08:00 97.9 73 17 150/88 (108) 94 05/21/19 04:41 71 20 95 Facial 30 05/21/19 03:25 68 21 96 Facial 30 05/21/19 01:24 66 23 96 Facial 30 05/21/19 00:00 97.6 62 18 160/80 (106) 96 05/20/19 23:57 65 16 98 Nasal Cannula 3.0 32 05/20/19 21:00 Nasal Cannula 2.0 05/20/19 20:54 98 Nasal Cannula 3.0 32 05/20/19 20:47 76 172/103 05/20/19 20:00 98.8 76 18 172/103 (126) 98 05/20/19 19:04 98.0 05/20/19 17:27 157/88 05/20/19 16:00 98.0 65 19 157/88 (111) 95 Height (Feet): 5 Height (Inches): 10.00 Weight (Pounds): 431 General Appearance: WD/WN, no acute distress HEENT: normocephalic, atraumatic, anicteric, mucous membranes moist, PERRL Respiratory/Chest: chest wall non-tender, lungs clear, normal breath sounds, no respiratory distress, no accessory muscle use Cardiovascular: normal peripheral pulses, normal rate, regular rhythm, no gallop/murmur, no JVD Abdomen: normal bowel sounds, soft, non tender, no organomegaly, non distended , no mass, no scars Extremities: no cyanosis, no clubbing Skin: no rash, no lesions, no ulcers Neurologic/Psychiatric: edge banding off bearer 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 normal, alert, oriented x 3 Lymphatic: no neck adenopathy, no groin adenopathy Musculoskeletal: normal muscle bulk, no effusion Laboratory Tests Test 05/21/19 06:45 White Blood Count 8.8 K/UL (4.8-10.8) Red Blood Count 4.45 M/UL (4.70-6.10) L Hemoglobin 11.2 G/DL (14.2-18.0) L Hematocrit 34.9 % (42.0-52.0) L Mean Corpuscular Volume 79 FL (80-99) L Mean Corpuscular Hemoglobin 25.1 PG (27.0-31.0) L Mean Corpuscular Hemoglobin Concent 32.0 G/DL (32.0-36.0) Red Cell Distribution Width 15.9 % (11.6-14.8) H Platelet Count 207 K/UL (150-450) Mean Platelet Volume 9.3 FL (6.5-10.1) Neutrophils (%) (Auto) 68.9 % (45.0-75.0) Lymphocytes (%) (Auto) 20.9 % (20.0-45.0) Monocytes (%) (Auto) 7.0 % (1.0-10.0) Eosinophils (%) (Auto) 2.3 % (0.0-3.0) Basophils (%) (Auto) 0.8 % (0.0-2.0) Sodium Level 148 MMOL/L (136-145) H Potassium Level 3.8 MMOL/L (3.5-5.1) Chloride Level 109 MMOL/L (98-107) H Carbon Dioxide Level 31 MMOL/L (21-32) Anion Gap 8 mmol/L (5-15) Blood Urea Nitrogen 14 mg/dL (7-18) Creatinine 1.3 MG/DL (0.55-1.30) Estimat Glomerular Filtration Rate > 60 mL/min (>60) Glucose Level 120 MG/DL (74-106) H Uric Acid 4.5 MG/DL (2.6-7.2) Calcium Level 8.4 MG/DL (8.5-10.1) L Phosphorus Level 4.1 MG/DL (2.5-4.9) Magnesium Level 2.1 MG/DL (1.8-2.4) Total Bilirubin 0.2 MG/DL (0.2-1.0) Aspartate Amino Transf (AST/SGOT) 15 U/L (15-37) Alanine Aminotransferase (ALT/SGPT) 18 U/L (12-78) Alkaline Phosphatase 51 U/L (46-116) C-Reactive Protein, Quantitative 1.2 mg/dL (0.00-0.90) H Total Protein 6.5 G/DL (6.4-8.2) Albumin 3.0 G/DL (3.4-5.0) L Globulin 3.5 g/dL Albumin/Globulin Ratio 0.9 (1.0-2.7) L Current Medications Medications (Trade) Dose Ordered Sig/David Route PRN Reason Start Time Stop Time Status Last Admin Dose Admin Acetaminophen (Tylenol) 650 mg Q6H PRN ORAL Mild Pain/Temp > 100.5 05/19/19 18:00 06/04/19 11:59 Acetaminophen/ Hydrocodone Bitart ([place] 10/325) 1 tab Q6H PRN ORAL Severe Breakthru Pain (>7) 05/19/19 18:00 05/24/19 17:59 05/20/19 18:34 Acetaminophen/ Hydrocodone Bitart ([place] 5/325) 1 tab Q6H PRN ORAL Moderate Pain (Pain Scale 4-6) 05/19/19 18:00 05/24/19 17:59 Albuterol Sulfate (Proventil) 2.5 mg Q6H PRN HHN Shortness of Breath 05/19/19 17:40 05/21/19 17:39 Apixaban (Eliquis) 5 mg BID ORAL 05/19/19 18:00 06/08/19 23:14 05/21/19 08:37 Atorvastatin Calcium (Lipitor) 40 mg BEDTIME ORAL 05/19/19 21:00 06/04/19 20:59 05/20/19 20:48 Carvedilol (Coreg) 25 mg Q12HR ORAL 05/19/19 21:00 06/08/19 20:59 05/21/19 08:37 Clonidine HCl (Catapres Tab) 0.1 mg Q8H PRN ORAL For High Blood Pressure 05/19/19 18:00 06/09/19 17:59 05/20/19 04:24 Digoxin (Lanoxin) 0.125 mg DAILY ORAL 05/20/19 09:00 06/09/19 08:59 05/21/19 08:36 Docusate Sodium (Colace) 100 mg THREE TIMES A DAY ORAL 05/19/19 18:00 06/05/19 12:59 05/21/19 12:27 Ferrous Sulfate (Feosol) 325 mg THREE TIMES A DAY ORAL 05/19/19 18:00 06/07/19 17:59 05/21/19 12:28 Fluticasone Propionate (Flonase) 1 spray TWICE A DAY NASAL 05/19/19 18:00 06/13/19 17:59 05/21/19 08:36 Gabapentin (Neurontin) 300 mg THREE TIMES A DAY ORAL 05/19/19 18:00 06/05/19 08:59 05/21/19 12:27 Hydralazine HCl (Apresoline) 50 mg THREE TIMES A DAY ORAL 05/21/19 18:00 06/18/19 14:29 Irbesartan (Avapro) 75 mg DAILY ORAL 05/20/19 09:00 06/15/19 08:59 05/21/19 08:36 Pantoprazole (Protonix) 40 mg EVERY 12 HOURS ORAL 05/19/19 21:00 06/05/19 20:59 05/21/19 08:37 Piperacillin Sod/ Tazobactam Sod 3.375 gm/Sodium Chloride 110 ml @ 27.5 mls/hr Q8H IVPB 05/19/19 20:00 05/24/19 23:59 05/21/19 12:28 Potassium Chloride (K-Dur) 40 meq BID ORAL 05/19/19 18:00 06/14/19 12:44 05/21/19 08:37 Cortney Jackson M.D. May 21, 2019 13:53
[2019-05-21 16:00] VITALS: BP 179/114
--- NOTE | 2019-05-21 16:45 | NUR ---
P.T. NOTES ADDENDUM S/P: APPROACHED PATIENT'S ROOM IN THE PM. PATIENT LYING IN A HIGH SEMI-CANALES'S POSITION IN BED UPON ARRIVAL. PATIENT DECLINED P.T. TX. EXPLAINED THE IMPORTANCE AND CONSEQUENCES, HOWEVER PATIENT CONT'D TO REFUSED P.T. TX. RN AWARE OF PATIENT'S STATUS. WILL F/U NEXT TX. TIME AND CONT WITH P.T. PLAN. RSABADO.
[2019-05-21] MEDS: HydrALAZINE 50mg tab ORAL SCH (17:19)
--- NOTE | 2019-05-21 19:15 | NUR ---
NURSE NOTES: Pt received in bed, wearing bipap, no c/o pain or signs of distress, able to make needs known, call light within reach, will continue to monitor.
--- NOTE | 2019-05-21 19:31 | NUR ---
HAND-OFF: Report given to KEESHA Lopez.
[2019-05-21 20:00] VITALS: BP 165/103
[2019-05-21] MEDS: Atorvastatin 20mg tab ORAL SCH (20:16)
[2019-05-21] MEDS: HYDROcodone/Acetamin 10/325 tab ORAL PRN (21:34)
[2019-05-22] VITALS: BP 174/100
[2019-05-22 04:00] VITALS: BP 169/105
[2019-05-22] MEDS: Piperacillin/Tazobactam 3.375 GM in NS 110 ML IVPB SCH ×2 (05:58→12:34)
--- NOTE | 2019-05-22 07:15 | NUR ---
HAND-OFF: Report given to KEESHA Giang.
--- NOTE | 2019-05-22 07:21 | NUR ---
NURSE NOTES: Patient alert x4; on Nasal cannula 4 Liter, no sing of distress and shortness of breath; Bipapa machine at the bed side; IV Left AC 20G Zosyn running; breakfast at the bed side table, patient encouraged to eat; side rails up x2, breaks engaged, bed at lowest position; call light within reach; will keep monitoring.
[2019-05-22 08:00] VITALS: BP 149/96
[2019-05-22] MEDS: Eliquis 5mg tablet ORAL SCH ×2 (08:41→17:53)
[2019-05-22] MEDS: HydrALAZINE 50mg tab ORAL SCH ×3 (08:41→17:53)
[2019-05-22] MEDS: Digoxin 0.125mg tab ORAL SCH (08:41)
[2019-05-22] MEDS: Docusate 100mg cap ORAL SCH ×3 (08:41→17:53)
[2019-05-22] MEDS: Flonase Nasal Inhaler 16gm NASAL SCH ×2 (08:42→17:54)
[2019-05-22] MEDS: Carvedilol 25mg Tab ORAL SCH ×2 (08:42→20:14)
[2019-05-22] MEDS: Irbesartan 150mg tablet ORAL SCH (08:42)
--- NOTE | 2019-05-22 08:45 | NUR ---
NURSE NOTES: Patient doesn't want to be connected to Zosyn antibiotics. Patient stated that he had enough of the antibiotics. RN explained the risks and benefits of taking antibiotic medications.
--- NOTE | 2019-05-22 11:55 | Nephrology Progress Note ---
Assessment/Plan Problem List: (1) Renal failure (2) Obesity, morbid, BMI 50 or higher (3) COPD (chronic obstructive pulmonary disease) (4) Electrolyte imbalance Assessment (1) Hypokalemia (2) CHF (congestive heart failure) (3) Renal failure (4) Obesity, morbid, BMI 50 or higher (5) CO2 retention (6) COPD (chronic obstructive pulmonary disease) elevated Cr likely due to diuresis Obesity , NATASHA AT fib with FVR HTN Congestive heart failure, likely diastolic dysfunction. EF 60% Recurrent NSVT. No syncope. Hypertension. Morbid obesity. COPD. Lipidemia. Plan K supplement as needed DC DIamox stop NSAIDs UA Monitor Cr rising Keep BP in check Monitor lytes check B12 and Folic acid Diamox PO as needed per orders per cardio and pulmonary taper steroids as possible Subjective ROS Limited/Unobtainable: No Constitutional: Reports: malaise Objective Objective Last 24 Hour Vital Signs Date Time Temp Pulse Resp B/P (MAP) Pulse Ox O2 Delivery O2 Flow Rate FiO2 05/22/19 09:20 98.0 05/22/19 08:42 149/96 05/22/19 08:42 64 149/96 05/22/19 08:41 149/96 05/22/19 08:41 64 05/22/19 08:00 98.0 64 19 149/96 (113) 95 05/22/19 05:22 77 22 98 Facial 30 05/22/19 04:00 97.8 80 24 169/105 (126) 95 05/22/19 00:56 174/100 05/22/19 00:00 97.8 80 24 174/100 (124) 94 05/21/19 23:06 62 19 96 Facial 30 05/21/19 21:00 Nasal Cannula 2.0 05/21/19 20:55 74 22 95 Facial 30 05/21/19 20:17 73 165/103 05/21/19 20:00 98.7 73 24 165/103 (123) 96 05/21/19 19:12 78 29 96 Facial 30 05/21/19 19:08 96 Bi-Pap 40 05/21/19 17:19 179/114 05/21/19 16:00 97.6 79 18 179/114 (135) 93 05/21/19 12:28 165/106 05/21/19 12:00 98.8 73 19 165/106 (125) 96 Intake and Output 05/21/19 05/22/19 19:00 07:00 Intake Total 1310.0 ml 727.5 ml Balance 1310.0 ml 727.5 ml Intake Oral 700 ml IV Total 110.0 ml 27.5 ml Other 1200 ml Height (Feet): 5 Height (Inches): 10.00 Weight (Pounds): 431 General Appearance: no apparent distress Objective no change Bebeto Yin MD May 22, 2019 11:55
[2019-05-22 12:00] VITALS: BP 168/100
--- NOTE | 2019-05-22 13:19 | NUR ---
RD ASSESSMENT & RECOMMENDATIONS SEE CARE ACTIVITY FOR COMPLETE ASSESSMENT DAILY ESTIMATED NEEDS: Needs based on Cardiac, Pulmonary, morbid obese; 103kg adj 20-25 kcals/kg 2060- 2575 total kcals 1-1.5 g protein/kg 103- 155 g total protein Fluid per MD-h/o CHF NUTRITION DIAGNOSIS: * Morbid obesity R/T life style factors? 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 * Altered nutrition related lab values R/T pre-diabetes as evidenced by A1C of 6.5. CURRENT DIET:Cardiac PO DIET RECOMMENDATIONS--->>> CARDIAC + CCHO MED ADDITIONAL RECOMMENDATIONS: 1) Standing weight for accurate CBW- daily wts given CHF dx 2) Rec adding CCHO MED to diet order: A1C 6.5 -> monitor BGs, need for hypoglycemics 3) Diet ed on heart healthy diet + wt control provided on 05/10 . .
--- NOTE | 2019-05-22 13:21 | Pulmonology Progress Note ---
Assessment/Plan Assessment/Plan Congestive heart failure Hypertension Chronic Obstructive Pulmonary Disease Obesity Obstructive Sleep Apnea Hypertension Diabetes Plan - spot dose diuresis prn - monitor off steroids - HHN - O2 PRN - noninvasive ventilation PRN/QHS - ISS - PPX -d/c planning Subjective ROS Limited/Unobtainable: Yes Interval Events: no acute events. Refused abx earlier. Planned end date soon Allergies: Coded Allergies: RIVAROXABAN (Verified Allergy, Unknown, 04/05/19) Objective Last 24 Hour Vital Signs Date Time Temp Pulse Resp B/P (MAP) Pulse Ox O2 Delivery O2 Flow Rate FiO2 05/22/19 12:34 149/96 05/22/19 09:20 98.0 05/22/19 08:42 149/96 05/22/19 08:42 64 149/96 05/22/19 08:41 149/96 05/22/19 08:41 64 05/22/19 08:00 98.0 64 19 149/96 (113) 95 05/22/19 05:22 77 22 98 Facial 30 05/22/19 04:00 97.8 80 24 169/105 (126) 95 05/22/19 00:56 174/100 05/22/19 00:00 97.8 80 24 174/100 (124) 94 05/21/19 23:06 62 19 96 Facial 30 05/21/19 21:00 Nasal Cannula 2.0 05/21/19 20:55 74 22 95 Facial 30 05/21/19 20:17 73 165/103 05/21/19 20:00 98.7 73 24 165/103 (123) 96 05/21/19 19:12 78 29 96 Facial 30 05/21/19 19:08 96 Bi-Pap 40 05/21/19 17:19 179/114 05/21/19 16:00 97.6 79 18 179/114 (135) 93 Intake and Output 05/21/19 05/22/19 19:00 07:00 Intake Total 1310.0 ml 727.5 ml Balance 1310.0 ml 727.5 ml Intake Oral 700 ml IV Total 110.0 ml 27.5 ml Other 1200 ml General Appearance: no acute distress HEENT: mucous membranes moist Respiratory/Chest: lungs clear Cardiovascular: normal rate Abdomen: soft, non tender Extremities: other - edema Current Medications Medications (Trade) Dose Ordered Sig/David Route PRN Reason Start Time Stop Time Status Last Admin Dose Admin Acetaminophen (Tylenol) 650 mg Q6H PRN ORAL Mild Pain/Temp > 100.5 05/19/19 18:00 06/04/19 11:59 05/22/19 08:50 Acetaminophen/ Hydrocodone Bitart ([place] 10/325) 1 tab Q6H PRN ORAL Severe Breakthru Pain (>7) 05/19/19 18:00 05/24/19 17:59 05/21/19 21:34 Acetaminophen/ Hydrocodone Bitart ([place] 5/325) 1 tab Q6H PRN ORAL Moderate Pain (Pain Scale 4-6) 05/19/19 18:00 05/24/19 17:59 05/22/19 01:09 Apixaban (Eliquis) 5 mg BID ORAL 05/19/19 18:00 06/08/19 23:14 05/22/19 08:41 Atorvastatin Calcium (Lipitor) 40 mg BEDTIME ORAL 05/19/19 21:00 06/04/19 20:59 05/21/19 20:16 Carvedilol (Coreg) 25 mg Q12HR ORAL 05/19/19 21:00 06/08/19 20:59 05/22/19 08:42 Clonidine HCl (Catapres Tab) 0.1 mg Q8H PRN ORAL For High Blood Pressure 05/19/19 18:00 06/09/19 17:59 05/22/19 00:56 Digoxin (Lanoxin) 0.125 mg DAILY ORAL 05/20/19 09:00 06/09/19 08:59 05/22/19 08:41 Docusate Sodium (Colace) 100 mg THREE TIMES A DAY ORAL 05/19/19 18:00 06/05/19 12:59 05/22/19 12:33 Ferrous Sulfate (Feosol) 325 mg THREE TIMES A DAY ORAL 05/19/19 18:00 06/07/19 17:59 05/22/19 12:34 Fluticasone Propionate (Flonase) 1 spray TWICE A DAY NASAL 05/19/19 18:00 06/13/19 17:59 05/22/19 08:42 Gabapentin (Neurontin) 300 mg THREE TIMES A DAY ORAL 05/19/19 18:00 06/05/19 08:59 05/22/19 12:33 Hydralazine HCl (Apresoline) 50 mg THREE TIMES A DAY ORAL 05/21/19 18:00 06/18/19 14:29 05/22/19 12:34 Irbesartan (Avapro) 75 mg DAILY ORAL 05/20/19 09:00 06/15/19 08:59 05/22/19 08:42 Pantoprazole (Protonix) 40 mg EVERY 12 HOURS ORAL 05/19/19 21:00 06/05/19 20:59 05/22/19 08:41 Piperacillin Sod/ Tazobactam Sod 3.375 gm/Sodium Chloride 110 ml @ 27.5 mls/hr Q8H IVPB 05/19/19 20:00 05/24/19 23:59 05/22/19 12:34 Potassium Chloride (K-Dur) 40 meq BID ORAL 05/19/19 18:00 06/14/19 12:44 05/22/19 08:42 Jass Hartman MD May 22, 2019 13:21
--- NOTE | 2019-05-22 15:35 | Internal Med Progress Note ---
Subjective Date of Service: May 22, 2019 Physician Name Reich,Gerardo Attending Physician Desirae Haro MD Current Medications Medications (Trade) Dose Ordered Sig/David Route PRN Reason Start Time Stop Time Status Last Admin Dose Admin Acetaminophen (Tylenol) 650 mg Q6H PRN ORAL Mild Pain/Temp > 100.5 05/19/19 18:00 06/04/19 11:59 05/22/19 08:50 Acetaminophen/ Hydrocodone Bitart ([place] 10/325) 1 tab Q6H PRN ORAL Severe Breakthru Pain (>7) 05/19/19 18:00 05/24/19 17:59 05/21/19 21:34 Acetaminophen/ Hydrocodone Bitart ([place] 5/325) 1 tab Q6H PRN ORAL Moderate Pain (Pain Scale 4-6) 05/19/19 18:00 05/24/19 17:59 05/22/19 01:09 Apixaban (Eliquis) 5 mg BID ORAL 05/19/19 18:00 06/08/19 23:14 05/22/19 08:41 Atorvastatin Calcium (Lipitor) 40 mg BEDTIME ORAL 05/19/19 21:00 06/04/19 20:59 05/21/19 20:16 Carvedilol (Coreg) 25 mg Q12HR ORAL 05/19/19 21:00 06/08/19 20:59 05/22/19 08:42 Clonidine HCl (Catapres Tab) 0.1 mg Q8H PRN ORAL For High Blood Pressure 05/19/19 18:00 06/09/19 17:59 05/22/19 00:56 Digoxin (Lanoxin) 0.125 mg DAILY ORAL 05/20/19 09:00 06/09/19 08:59 05/22/19 08:41 Docusate Sodium (Colace) 100 mg THREE TIMES A DAY ORAL 05/19/19 18:00 06/05/19 12:59 05/22/19 12:33 Ferrous Sulfate (Feosol) 325 mg THREE TIMES A DAY ORAL 05/19/19 18:00 06/07/19 17:59 05/22/19 12:34 Fluticasone Propionate (Flonase) 1 spray TWICE A DAY NASAL 05/19/19 18:00 06/13/19 17:59 05/22/19 08:42 Gabapentin (Neurontin) 300 mg THREE TIMES A DAY ORAL 05/19/19 18:00 06/05/19 08:59 05/22/19 12:33 Hydralazine HCl (Apresoline) 50 mg THREE TIMES A DAY ORAL 05/21/19 18:00 06/18/19 14:29 05/22/19 12:34 Irbesartan (Avapro) 75 mg DAILY ORAL 05/20/19 09:00 06/15/19 08:59 05/22/19 08:42 Pantoprazole (Protonix) 40 mg EVERY 12 HOURS ORAL 05/19/19 21:00 06/05/19 20:59 05/22/19 08:41 Piperacillin Sod/ Tazobactam Sod 3.375 gm/Sodium Chloride 110 ml @ 27.5 mls/hr Q8H IVPB 05/19/19 20:00 05/24/19 23:59 05/22/19 12:34 Potassium Chloride (K-Dur) 40 meq BID ORAL 05/19/19 18:00 06/14/19 12:44 05/22/19 08:42 Allergies: Coded Allergies: RIVAROXABAN (Verified Allergy, Unknown, 04/05/19) ROS Limited/Unobtainable: No Constitutional: Reports: no symptoms HEENT: Reports: no symptoms Cardiovascular: Reports: no symptoms Respiratory: Reports: shortness of breath Gastrointestinal/Abdominal: Reports: no symptoms Genitourinary: Reports: no symptoms Neurologic/Psychiatric: Reports: no symptoms Subjective 48 YO M admitted with generalized weakness. Now CHF and COPD exacerbation. Cover for Int Bj-DR Haro Objective Last Vital Signs Date Time Temp Pulse Resp B/P (MAP) Pulse Ox O2 Delivery O2 Flow Rate FiO2 05/22/19 12:34 149/96 05/22/19 12:00 97.0 74 18 93 05/22/19 05:22 Facial 30 05/21/19 21:00 2.0 General Appearance: no apparent distress, alert, obese EENT: PERRL/EOMI, normal ENT inspection Neck: non-tender, normal alignment, supple, normal inspection Cardiovascular: normal peripheral pulses, normal rate, regular rhythm, no gallop/murmur, no JVD Respiratory/Chest: chest wall non-tender, lungs clear, normal breath sounds, no respiratory distress, no accessory muscle use Abdomen: normal bowel sounds, non tender, soft, no organomegaly, no mass Extremities: normal range of motion Neurologic: bath tester 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 normal, no motor/sensory deficits Skin: normal pigmentation, warm/dry Intake and Output 05/21/19 05/22/19 19:00 07:00 Intake Total 1310.0 ml 727.5 ml Balance 1310.0 ml 727.5 ml Intake Oral 700 ml IV Total 110.0 ml 27.5 ml Other 1200 ml Assessment/Plan Problem List: (1) COPD (chronic obstructive pulmonary disease) Assessment & Plan: see pulmonary note. (2) Obesity, morbid, BMI 50 or higher (3) CHF (congestive heart failure) Assessment & Plan: See cardiology note. (4) Diabetes mellitus type II, controlled (5) HTN (hypertension) (6) Paroxysmal atrial fibrillation Assessment & Plan: see cardiology note; continue digoxin (7) Renal failure (ARF), acute on chronic Assessment & Plan: See nephrology note (8) Pneumonia Assessment & Plan: Continue Gerardo Zavala MD May 22, 2019 15:35
[2019-05-22 16:00] VITALS: BP 126/87
--- NOTE | 2019-05-22 16:00 | Cardiology Progress Note ---
Assessment/Plan Assessment/Plan 1. Paroxysmal atrial fibrillation, continue digoxin and carvedilol as well as Eliquis in face of CHADS-VASC score of 2. 2. Dyspnea, most likely acute on chronic HFnlEF due to combination of HTN, CKD and obesity, there is also element of obesity hypoventilation syndrome, no prior hx of tobacco use. Continue gentle diuresis and carvedilol. 2. Morbid obesity. 3. CKD, creat down to 1.3,,continue Irbesartan. 4. DM, continue atorvastatin. 5. Hx of non-sustained ventricular tachycardia, given normal EF, continue with coreg. 6. HTN, well controlled, continue BP meds. Subjective Subjective Transferred to med-surg unit. No cardiac events noted. Objective Last 24 Hour Vital Signs Date Time Temp Pulse Resp B/P (MAP) Pulse Ox O2 Delivery O2 Flow Rate FiO2 05/22/19 12:34 149/96 05/22/19 12:00 97.0 74 18 168/100 (122) 93 05/22/19 09:20 98.0 05/22/19 08:42 149/96 05/22/19 08:42 64 149/96 05/22/19 08:41 149/96 05/22/19 08:41 64 05/22/19 08:00 98.0 64 19 149/96 (113) 95 05/22/19 05:22 77 22 98 Facial 30 05/22/19 04:00 97.8 80 24 169/105 (126) 95 05/22/19 00:56 174/100 05/22/19 00:00 97.8 80 24 174/100 (124) 94 05/21/19 23:06 62 19 96 Facial 30 05/21/19 21:00 Nasal Cannula 2.0 05/21/19 20:55 74 22 95 Facial 30 05/21/19 20:17 73 165/103 05/21/19 20:00 98.7 73 24 165/103 (123) 96 05/21/19 19:12 78 29 96 Facial 30 05/21/19 19:08 96 Bi-Pap 40 05/21/19 17:19 179/114 05/21/19 16:00 97.6 79 18 179/114 (135) 93 Intake and Output 05/21/19 05/22/19 19:00 07:00 Intake Total 1310.0 ml 727.5 ml Balance 1310.0 ml 727.5 ml Intake Oral 700 ml IV Total 110.0 ml 27.5 ml Other 1200 ml 2D Echo: Normal EF, Mod LVH, Mild LAE, RVSP 37, Grade II LVDD (pseudonormal Physio) Objective HEENT: NC/AT. EOMI. Anicteric, no pallor. + obesity Neck: JVP <5 cm, no carotid bruit. Cardiovascular: Irregularly irregular rhythm, Normal S1 and S2. No murmurs, gallops or rubs Resp: Diminished BS both lungs. Abdomen: Abdomen is soft, nondistended. Nontender, + BS Extremities: No edema, clubbing or cyanosis. Sandor Lawrence MD May 22, 2019 16:00
--- NOTE | 2019-05-22 19:15 | Infectious Diseases Prog Note ---
Assessment/Plan Problems: (1) Pneumonia Assessment & Plan: with cough productive , fever and SOB, S/P zosyn empirically for 8 days . monitor off antibiotics (2) COPD (chronic obstructive pulmonary disease) Assessment & Plan: Due to the above, improved with inhalers, and antibiotics (3) Obesity, morbid, BMI 50 or higher Assessment & Plan: recommend diet and exercise (4) Renal failure Assessment & Plan: improving follow up with renal (5) Fever Assessment & Plan: resolved, suspect pneumonia related, with no evidence of sepsis , and negative blood culture x 2 . continue antibiotics for 7-10 days Subjective Constitutional: Reports: no symptoms HEENT: Reports: no symptoms Respiratory: Reports: no symptoms Breasts: Reports: no symptoms Cardiovascular: Reports: no symptoms Gastrointestinal/Abdominal: Reports: no symptoms Genitourinary: Reports: no symptoms Neurologic: Reports: no symptoms Psychiatric: Reports: no symptoms Skin: Reports: no symptoms Endocrine: Reports: no symptoms Hematologic: Reports: no symptoms Musculoskeletal: Reports: no symptoms Allergies: Coded Allergies: RIVAROXABAN (Verified Allergy, Unknown, 04/05/19) Objective Vital Signs Last 24 Hour Vital Signs Date Time Temp Pulse Resp B/P (MAP) Pulse Ox O2 Delivery O2 Flow Rate FiO2 05/22/19 17:53 126/87 05/22/19 16:00 98.4 87 19 126/87 (100) 96 05/22/19 12:34 149/96 05/22/19 12:00 97.0 74 18 168/100 (122) 93 05/22/19 09:20 98.0 05/22/19 09:01 96 Nasal Cannula 3.0 32 05/22/19 08:42 149/96 05/22/19 08:42 64 149/96 05/22/19 08:41 149/96 05/22/19 08:41 64 05/22/19 08:00 98.0 64 19 149/96 (113) 95 05/22/19 05:22 77 22 98 Facial 30 05/22/19 04:00 97.8 80 24 169/105 (126) 95 05/22/19 00:56 174/100 05/22/19 00:00 97.8 80 24 174/100 (124) 94 05/21/19 23:06 62 19 96 Facial 30 05/21/19 21:00 Nasal Cannula 2.0 05/21/19 20:55 74 22 95 Facial 30 05/21/19 20:17 73 165/103 05/21/19 20:00 98.7 73 24 165/103 (123) 96 Height (Feet): 5 Height (Inches): 10.00 Weight (Pounds): 431 General Appearance: WD/WN, no acute distress HEENT: normocephalic, atraumatic, anicteric, mucous membranes moist, PERRL Respiratory/Chest: chest wall non-tender, lungs clear, normal breath sounds, no respiratory distress, no accessory muscle use, decreased breath sounds Cardiovascular: normal peripheral pulses, normal rate, regular rhythm, no gallop/murmur, no JVD Abdomen: normal bowel sounds, soft, non tender, no organomegaly, non distended , no mass, no scars Genitourinary: normal external genitalia Extremities: no cyanosis, no clubbing Skin: no rash, no lesions, no ulcers 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 normal, alert, oriented x 3, responsive Lymphatic: no neck adenopathy, no groin adenopathy Current Medications Medications (Trade) Dose Ordered Sig/David Route PRN Reason Start Time Stop Time Status Last Admin Dose Admin Acetaminophen (Tylenol) 650 mg Q6H PRN ORAL Mild Pain/Temp > 100.5 05/19/19 18:00 06/04/19 11:59 05/22/19 08:50 Acetaminophen/ Hydrocodone Bitart ([place] 10/325) 1 tab Q6H PRN ORAL Severe Breakthru Pain (>7) 05/19/19 18:00 05/24/19 17:59 05/21/19 21:34 Acetaminophen/ Hydrocodone Bitart ([place] 5/325) 1 tab Q6H PRN ORAL Moderate Pain (Pain Scale 4-6) 05/19/19 18:00 05/24/19 17:59 05/22/19 01:09 Apixaban (Eliquis) 5 mg BID ORAL 05/19/19 18:00 06/08/19 23:14 05/22/19 17:53 Atorvastatin Calcium (Lipitor) 40 mg BEDTIME ORAL 05/19/19 21:00 06/04/19 20:59 05/21/19 20:16 Carvedilol (Coreg) 25 mg Q12HR ORAL 05/19/19 21:00 06/08/19 20:59 05/22/19 08:42 Clonidine HCl (Catapres Tab) 0.1 mg Q8H PRN ORAL For High Blood Pressure 05/19/19 18:00 06/09/19 17:59 05/22/19 00:56 Digoxin (Lanoxin) 0.125 mg DAILY ORAL 05/20/19 09:00 06/09/19 08:59 05/22/19 08:41 Docusate Sodium (Colace) 100 mg THREE TIMES A DAY ORAL 05/19/19 18:00 06/05/19 12:59 05/22/19 17:53 Ferrous Sulfate (Feosol) 325 mg THREE TIMES A DAY ORAL 05/19/19 18:00 06/07/19 17:59 05/22/19 17:53 Fluticasone Propionate (Flonase) 1 spray TWICE A DAY NASAL 05/19/19 18:00 06/13/19 17:59 05/22/19 17:54 Gabapentin (Neurontin) 300 mg THREE TIMES A DAY ORAL 05/19/19 18:00 06/05/19 08:59 05/22/19 17:53 Hydralazine HCl (Apresoline) 50 mg THREE TIMES A DAY ORAL 05/21/19 18:00 06/18/19 14:29 05/22/19 17:53 Irbesartan (Avapro) 75 mg DAILY ORAL 05/20/19 09:00 06/15/19 08:59 05/22/19 08:42 Pantoprazole (Protonix) 40 mg EVERY 12 HOURS ORAL 05/19/19 21:00 06/05/19 20:59 05/22/19 08:41 Piperacillin Sod/ Tazobactam Sod 3.375 gm/Sodium Chloride 110 ml @ 27.5 mls/hr Q8H IVPB 05/19/19 20:00 05/24/19 23:59 05/22/19 12:34 Potassium Chloride (K-Dur) 40 meq BID ORAL 05/19/19 18:00 06/14/19 12:44 05/22/19 17:53 Cortney Jackson M.D. May 22, 2019 19:15
--- NOTE | 2019-05-22 19:33 | NUR ---
HAND-OFF: Report given to KEESHA Sherwood.
[2019-05-22 20:08] VITALS: BP 180/103
[2019-05-22] MEDS: Atorvastatin 20mg tab ORAL SCH (20:13)
[2019-05-22] MEDS: HYDROcodone/Acetamin 10/325 tab ORAL PRN (20:14)
--- NOTE | 2019-05-22 20:17 | NUR ---
NURSE NOTES: Received patient awake, alert, verbal, no SOB, complained of generalized body pain, subsequently given pain medication as needed.
[2019-05-23 00:23] VITALS: BP 165/88
[2019-05-23 04:18] VITALS: BP 159/97
--- NOTE | 2019-05-23 07:03 | NUR ---
HAND-OFF: Report given to Kiley Garcia RN.
[2019-05-23 07:05] LABS: BASOPHILS % (AUTO) 0.9 % (0.0-2.0); EOSINOPHILS % (AUTO) 2.9 % (0.0-3.0); HEMATOCRIT 34.1 % (42.0-52.0); HEMOGLOBIN 11.1 G/DL (14.2-18.0); LYMPHOCYTES % (AUTO) 21.4 % (20.0-45.0); MEAN CORPUSCULAR VOLUME 79 FL (80-99); MONOCYTES % (AUTO) 6.8 % (1.0-10.0); NEUTROPHILS % (AUTO) 68.1 % (45.0-75.0); PLATELET COUNT 190 K/UL (150-450); RED BLOOD COUNT 4.33 M/UL (4.70-6.10); RED CELL DISTRIBUTION WIDTH 16.2 % (11.6-14.8)
[2019-05-23 07:09] LABS: ANION GAP 4 mmol/L (5-15); BLOOD UREA NITROGEN 15 mg/dL (7-18); CALCIUM 8.4 MG/DL (8.5-10.1); CARBON DIOXIDE 33 MMOL/L (21-32); CHLORIDE 111 MMOL/L (98-107); CREATININE 1.2 MG/DL (0.55-1.30); POTASSIUM 3.8 MMOL/L (3.5-5.1); SODIUM 148 MMOL/L (136-145)
--- NOTE | 2019-05-23 07:14 | NUR ---
NURSE NOTES: Patient awake, alert x4; Nasal cannula 4 Liter, no sing of shortness of breath; [place] machine at the bed side; patient sitting at the bed and eating breakfast; IV Left AC 20G flushes well; side rails up x2, breaks engaged, bed at lowest position; urinal and call light within reach; will keep monitoring.
[2019-05-23 08:00] VITALS: BP 140/87
[2019-05-23] MEDS: Flonase Nasal Inhaler 16gm NASAL SCH ×2 (08:59→17:41)
[2019-05-23] MEDS: Carvedilol 25mg Tab ORAL SCH ×2 (09:00→20:25)
[2019-05-23] MEDS: Docusate 100mg cap ORAL SCH ×3 (09:00→17:39)
[2019-05-23] MEDS: Digoxin 0.125mg tab ORAL SCH (09:00)
[2019-05-23] MEDS: Eliquis 5mg tablet ORAL SCH ×2 (09:00→17:39)
[2019-05-23] MEDS: Irbesartan 150mg tablet ORAL SCH (09:01)
[2019-05-23] MEDS: HydrALAZINE 50mg tab ORAL SCH ×4 (09:26→17:41)
[2019-05-23] MEDS: HYDROcodone/Acetamin 10/325 tab ORAL PRN ×2 (09:29→17:47)
[2019-05-23 12:00] VITALS: BP 166/95
--- NOTE | 2019-05-23 12:39 | Pulmonology Progress Note ---
Assessment/Plan Assessment/Plan Congestive heart failure Hypertension Chronic Obstructive Pulmonary Disease Obesity Obstructive Sleep Apnea Hypertension Diabetes Plan - spot dose diuresis prn - monitor off steroids - HHN - O2 PRN - noninvasive ventilation PRN/QHS - ISS - PPX -d/c planning Subjective ROS Limited/Unobtainable: No Interval Events: Breathing stable, using BiPAP at night. No cough. Allergies: Coded Allergies: RIVAROXABAN (Verified Allergy, Unknown, 04/05/19) All Systems: reviewed and negative except above Objective Last 24 Hour Vital Signs Date Time Temp Pulse Resp B/P (MAP) Pulse Ox O2 Delivery O2 Flow Rate FiO2 05/23/19 12:29 166/95 05/23/19 12:00 98.4 82 18 166/95 (118) 95 05/23/19 09:59 98.5 05/23/19 09:28 140/87 05/23/19 09:01 140/87 05/23/19 09:00 86 05/23/19 09:00 86 140/87 05/23/19 08:00 98.5 86 19 140/87 (104) 95 05/23/19 05:21 62 23 96 Facial 30 05/23/19 04:18 97.8 77 24 159/97 (117) 97 05/23/19 03:25 65 19 97 Facial 30 05/23/19 00:37 69 24 97 Facial 30 05/23/19 00:23 98.0 67 24 165/88 (113) 99 05/22/19 23:32 72 19 96 Facial 30 05/22/19 21:00 Nasal Cannula 2.0 05/22/19 20:14 180/103 05/22/19 20:14 74 180/103 05/22/19 20:08 97.6 74 24 180/103 (128) 96 05/22/19 19:53 95 Nasal Cannula 3.0 32 05/22/19 17:53 126/87 05/22/19 16:00 98.4 87 19 126/87 (100) 96 Intake and Output 05/22/19 05/23/19 19:00 07:00 Intake Total 1337.5 ml 1900 ml Output Total 2200 ml Balance 1337.5 ml -300 ml Intake Oral 700 ml IV Total 137.5 ml Other 1200 ml 1200 ml Output Urine Total 2200 ml # Voids 3 # Bowel Movements 1 General Appearance: no acute distress Respiratory/Chest: lungs clear Cardiovascular: normal rate Abdomen: soft, non tender Extremities: other - edema Neurologic/Psychiatric: oriented x 3 Laboratory Tests 05/23/19 06:45: White Blood Count 9.0, Red Blood Count 4.33L, Hemoglobin 11.1L, Hematocrit 34.1L , Mean Corpuscular Volume 79L, Mean Corpuscular Hemoglobin 25.6L, Mean Corpuscular Hemoglobin Concent 32.4, Red Cell Distribution Width 16.2H, Platelet Count 190, Mean Platelet Volume 8.0, Neutrophils (%) (Auto) 68.1, Lymphocytes (%) (Auto) 21.4, Monocytes (%) (Auto) 6.8, Eosinophils (%) (Auto) 2.9, Basophils (%) (Auto) 0.9, Sodium Level 148H, Potassium Level 3.8, Chloride Level 111H, Carbon Dioxide Level 33H, Anion Gap 4L, Blood Urea Nitrogen 15, Creatinine 1.2, Estimat Glomerular Filtration Rate > 60, Glucose Level 111H, Calcium Level 8.4L Current Medications Medications (Trade) Dose Ordered Sig/David Route PRN Reason Start Time Stop Time Status Last Admin Dose Admin Acetaminophen (Tylenol) 650 mg Q6H PRN ORAL Mild Pain/Temp > 100.5 05/19/19 18:00 06/04/19 11:59 05/22/19 08:50 Acetaminophen/ Hydrocodone Bitart ([place] 10/325) 1 tab Q6H PRN ORAL Severe Breakthru Pain (>7) 05/19/19 18:00 05/24/19 17:59 05/23/19 09:29 Acetaminophen/ Hydrocodone Bitart ([place] 5/325) 1 tab Q6H PRN ORAL Moderate Pain (Pain Scale 4-6) 05/19/19 18:00 05/24/19 17:59 05/22/19 01:09 Apixaban (Eliquis) 5 mg BID ORAL 05/19/19 18:00 06/08/19 23:14 05/23/19 09:00 Atorvastatin Calcium (Lipitor) 40 mg BEDTIME ORAL 05/19/19 21:00 06/04/19 20:59 05/22/19 20:13 Carvedilol (Coreg) 25 mg Q12HR ORAL 05/19/19 21:00 2/5/20 20:59 05/23/19 09:00 Clonidine HCl (Catapres Tab) 0.1 mg Q8H PRN ORAL For High Blood Pressure 05/19/19 18:00 06/09/19 17:59 05/22/19 20:14 Digoxin (Lanoxin) 0.125 mg DAILY ORAL 05/20/19 09:00 06/09/19 08:59 05/23/19 09:00 Docusate Sodium (Colace) 100 mg THREE TIMES A DAY ORAL 05/19/19 18:00 06/05/19 12:59 05/23/19 12:29 Ferrous Sulfate (Feosol) 325 mg THREE TIMES A DAY ORAL 05/19/19 18:00 06/07/19 17:59 05/23/19 12:29 Fluticasone Propionate (Flonase) 1 spray TWICE A DAY NASAL 05/19/19 18:00 06/13/19 17:59 05/23/19 08:59 Gabapentin (Neurontin) 300 mg THREE TIMES A DAY ORAL 05/19/19 18:00 06/05/19 08:59 05/23/19 12:29 Hydralazine HCl (Apresoline) 50 mg THREE TIMES A DAY ORAL 05/21/19 18:00 06/18/19 14:29 05/23/19 12:29 Irbesartan (Avapro) 75 mg DAILY ORAL 05/20/19 09:00 06/15/19 08:59 05/23/19 09:01 Pantoprazole (Protonix) 40 mg EVERY 12 HOURS ORAL 05/19/19 21:00 06/05/19 20:59 05/23/19 09:01 Potassium Chloride (K-Dur) 40 meq BID ORAL 05/19/19 18:00 06/14/19 12:44 05/23/19 09:01 Jass Hartman MD May 23, 2019 12:39
--- NOTE | 2019-05-23 13:34 | General Progress Note ---
Assessment/Plan Assessment/Plan: S: I am not feeling ok O: seems comfortable. exertional sob with minimal activity. Ambulating in the room with assistance. Physical Exam General Appearance: alert, GCS 15, obese, Chronically Ill Head: normocephalic Eyes: bilateral eye PERRL, ENT: TMs + canals normal, uvula midline Neck: full range of motion Respiratory: lungs clear, decreased breath sounds Cardiovascular #1: edema - 1+ Edema Gastrointestinal: normal inspection, normal bowel sounds, non tender Musculoskeletal: normal inspection Neurologic: alert, motor strength/tone normal, high risk ob III-XII nml as tested, oriented x3 Psychiatric: normal inspection Skin: other - Bilateral scaly rash to the lower extremities Labs and Meds: reviewed and reconciled Assessment/Plan: 1. Acute on chronic COPD (chronic obstructive pulmonary disease) exacerbation 3. Morbid obesity 4. HTN 5. Multiple joint OA 6. Afib 7. NATASHA 8. Refusal of Care 9. ARF Plan: stool for ob start iron supplement notes form pulmonary reviewed. Patient continues denying participation in PT optimise BP medication Disposition to SNF/plan of care DC morphine C/w NI-ventilation notes from PT reviewed Subjective Allergies: Coded Allergies: RIVAROXABAN (Verified Allergy, Unknown, 04/05/19) Objective Last 24 Hour Vital Signs Date Time Temp Pulse Resp B/P (MAP) Pulse Ox O2 Delivery O2 Flow Rate FiO2 05/23/19 12:29 166/95 05/23/19 12:00 98.4 82 18 166/95 (118) 95 05/23/19 09:59 98.5 05/23/19 09:28 140/87 05/23/19 09:01 140/87 05/23/19 09:00 86 05/23/19 09:00 86 140/87 05/23/19 08:00 98.5 86 19 140/87 (104) 95 05/23/19 05:21 62 23 96 Facial 30 05/23/19 04:18 97.8 77 24 159/97 (117) 97 05/23/19 03:25 65 19 97 Facial 30 05/23/19 00:37 69 24 97 Facial 30 05/23/19 00:23 98.0 67 24 165/88 (113) 99 05/22/19 23:32 72 19 96 Facial 30 05/22/19 21:00 Nasal Cannula 2.0 05/22/19 20:14 180/103 05/22/19 20:14 74 180/103 05/22/19 20:08 97.6 74 24 180/103 (128) 96 05/22/19 19:53 95 Nasal Cannula 3.0 32 05/22/19 17:53 126/87 05/22/19 16:00 98.4 87 19 126/87 (100) 96 Intake and Output 05/22/19 05/23/19 19:00 07:00 Intake Total 1337.5 ml 1900 ml Output Total 2200 ml Balance 1337.5 ml -300 ml Intake Oral 700 ml IV Total 137.5 ml Other 1200 ml 1200 ml Output Urine Total 2200 ml # Voids 3 # Bowel Movements 1 Laboratory Tests 05/23/19 06:45: White Blood Count 9.0, Red Blood Count 4.33L, Hemoglobin 11.1L, Hematocrit 34.1L , Mean Corpuscular Volume 79L, Mean Corpuscular Hemoglobin 25.6L, Mean Corpuscular Hemoglobin Concent 32.4, Red Cell Distribution Width 16.2H, Platelet Count 190, Mean Platelet Volume 8.0, Neutrophils (%) (Auto) 68.1, Lymphocytes (%) (Auto) 21.4, Monocytes (%) (Auto) 6.8, Eosinophils (%) (Auto) 2.9, Basophils (%) (Auto) 0.9, Sodium Level 148H, Potassium Level 3.8, Chloride Level 111H, Carbon Dioxide Level 33H, Anion Gap 4L, Blood Urea Nitrogen 15, Creatinine 1.2, Estimat Glomerular Filtration Rate > 60, Glucose Level 111H, Calcium Level 8.4L Height (Feet): 5 Height (Inches): 10.00 Weight (Pounds): 431 Desirae Haro MD May 23, 2019 13:34
--- NOTE | 2019-05-23 13:43 | Nephrology Progress Note ---
Assessment/Plan Problem List: (1) Renal failure (2) Obesity, morbid, BMI 50 or higher (3) COPD (chronic obstructive pulmonary disease) (4) Electrolyte imbalance Assessment (1) Hypokalemia (2) CHF (congestive heart failure) (3) Renal failure (4) Obesity, morbid, BMI 50 or higher (5) CO2 retention (6) COPD (chronic obstructive pulmonary disease) elevated Cr likely due to diuresis Obesity , NATASHA AT fib with FVR HTN Congestive heart failure, likely diastolic dysfunction. EF 60% Recurrent NSVT. No syncope. Hypertension. Morbid obesity. COPD. Lipidemia. Plan K supplement as needed DC DIamox stop NSAIDs UA Monitor Cr rising Keep BP in check Monitor lytes check B12 and Folic acid Diamox PO as needed per orders per cardio and pulmonary taper steroids as possible Subjective ROS Limited/Unobtainable: No Constitutional: Reports: malaise Objective Objective Last 24 Hour Vital Signs Date Time Temp Pulse Resp B/P (MAP) Pulse Ox O2 Delivery O2 Flow Rate FiO2 05/23/19 12:29 166/95 05/23/19 12:00 98.4 82 18 166/95 (118) 95 05/23/19 09:59 98.5 05/23/19 09:28 140/87 05/23/19 09:01 140/87 05/23/19 09:00 86 05/23/19 09:00 86 140/87 05/23/19 08:00 98.5 86 19 140/87 (104) 95 05/23/19 05:21 62 23 96 Facial 30 05/23/19 04:18 97.8 77 24 159/97 (117) 97 05/23/19 03:25 65 19 97 Facial 30 05/23/19 00:37 69 24 97 Facial 30 05/23/19 00:23 98.0 67 24 165/88 (113) 99 05/22/19 23:32 72 19 96 Facial 30 05/22/19 21:00 Nasal Cannula 2.0 05/22/19 20:14 180/103 05/22/19 20:14 74 180/103 05/22/19 20:08 97.6 74 24 180/103 (128) 96 05/22/19 19:53 95 Nasal Cannula 3.0 32 05/22/19 17:53 126/87 05/22/19 16:00 98.4 87 19 126/87 (100) 96 Intake and Output 05/22/19 05/23/19 19:00 07:00 Intake Total 1337.5 ml 1900 ml Output Total 2200 ml Balance 1337.5 ml -300 ml Intake Oral 700 ml IV Total 137.5 ml Other 1200 ml 1200 ml Output Urine Total 2200 ml # Voids 3 # Bowel Movements 1 Laboratory Tests 05/23/19 06:45: White Blood Count 9.0, Red Blood Count 4.33L, Hemoglobin 11.1L, Hematocrit 34.1L , Mean Corpuscular Volume 79L, Mean Corpuscular Hemoglobin 25.6L, Mean Corpuscular Hemoglobin Concent 32.4, Red Cell Distribution Width 16.2H, Platelet Count 190, Mean Platelet Volume 8.0, Neutrophils (%) (Auto) 68.1, Lymphocytes (%) (Auto) 21.4, Monocytes (%) (Auto) 6.8, Eosinophils (%) (Auto) 2.9, Basophils (%) (Auto) 0.9, Sodium Level 148H, Potassium Level 3.8, Chloride Level 111H, Carbon Dioxide Level 33H, Anion Gap 4L, Blood Urea Nitrogen 15, Creatinine 1.2, Estimat Glomerular Filtration Rate > 60, Glucose Level 111H, Calcium Level 8.4L Height (Feet): 5 Height (Inches): 10.00 Weight (Pounds): 431 General Appearance: no apparent distress, lethargic Respiratory/Chest: decreased breath sounds Abdomen: distended Objective no change Bebeto Yin MD May 23, 2019 13:43
--- NOTE | 2019-05-23 15:27 | Infectious Diseases Prog Note ---
Assessment/Plan Problems: (1) Pneumonia Assessment & Plan: with cough productive , fever and SOB, resolved, S/P zosyn empirically for 8 days . monitor off antibiotics (2) COPD (chronic obstructive pulmonary disease) Assessment & Plan: Due to the above, improved with inhalers, and antibiotics (3) Obesity, morbid, BMI 50 or higher Assessment & Plan: recommend diet and exercise (4) Renal failure Assessment & Plan: improving follow up with renal Assessment/Plan ID will sign off, please call with questions Subjective Constitutional: Reports: no symptoms HEENT: Reports: no symptoms Respiratory: Reports: no symptoms Breasts: Reports: no symptoms Cardiovascular: Reports: no symptoms Gastrointestinal/Abdominal: Reports: no symptoms Genitourinary: Reports: no symptoms Neurologic: Reports: no symptoms Psychiatric: Reports: no symptoms Skin: Reports: no symptoms Endocrine: Reports: no symptoms Hematologic: Reports: no symptoms Musculoskeletal: Reports: no symptoms Allergies: Coded Allergies: RIVAROXABAN (Verified Allergy, Unknown, 04/05/19) Objective Vital Signs Last 24 Hour Vital Signs Date Time Temp Pulse Resp B/P (MAP) Pulse Ox O2 Delivery O2 Flow Rate FiO2 05/23/19 12:29 166/95 05/23/19 12:00 98.4 82 18 166/95 (118) 95 05/23/19 09:59 98.5 05/23/19 09:28 140/87 05/23/19 09:01 140/87 05/23/19 09:00 86 05/23/19 09:00 86 140/87 05/23/19 08:00 98.5 86 19 140/87 (104) 95 05/23/19 05:21 62 23 96 Facial 30 05/23/19 04:18 97.8 77 24 159/97 (117) 97 05/23/19 03:25 65 19 97 Facial 30 05/23/19 00:37 69 24 97 Facial 30 05/23/19 00:23 98.0 67 24 165/88 (113) 99 05/22/19 23:32 72 19 96 Facial 30 05/22/19 21:00 Nasal Cannula 2.0 05/22/19 20:14 180/103 05/22/19 20:14 74 180/103 05/22/19 20:08 97.6 74 24 180/103 (128) 96 1/19/20 19:53 95 Nasal Cannula 3.0 32 05/22/19 17:53 126/87 05/22/19 16:00 98.4 87 19 126/87 (100) 96 Height (Feet): 5 Height (Inches): 10.00 Weight (Pounds): 431 General Appearance: WD/WN, no acute distress HEENT: normocephalic, atraumatic, anicteric, mucous membranes moist, PERRL Respiratory/Chest: chest wall non-tender, lungs clear, normal breath sounds, no respiratory distress, no accessory muscle use Cardiovascular: normal peripheral pulses, normal rate, regular rhythm, no gallop/murmur, no JVD Abdomen: normal bowel sounds, soft, non tender, no organomegaly, non distended , no mass, no scars Genitourinary: normal external genitalia Extremities: no cyanosis, no clubbing Skin: no rash, no lesions, no ulcers 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, alert, responsive Lymphatic: no neck adenopathy, no groin adenopathy Musculoskeletal: normal muscle bulk, no effusion Laboratory Tests Test 05/23/19 06:45 White Blood Count 9.0 K/UL (4.8-10.8) Red Blood Count 4.33 M/UL (4.70-6.10) L Hemoglobin 11.1 G/DL (14.2-18.0) L Hematocrit 34.1 % (42.0-52.0) L Mean Corpuscular Volume 79 FL (80-99) L Mean Corpuscular Hemoglobin 25.6 PG (27.0-31.0) L Mean Corpuscular Hemoglobin Concent 32.4 G/DL (32.0-36.0) Red Cell Distribution Width 16.2 % (11.6-14.8) H Platelet Count 190 K/UL (150-450) Mean Platelet Volume 8.0 FL (6.5-10.1) Neutrophils (%) (Auto) 68.1 % (45.0-75.0) Lymphocytes (%) (Auto) 21.4 % (20.0-45.0) Monocytes (%) (Auto) 6.8 % (1.0-10.0) Eosinophils (%) (Auto) 2.9 % (0.0-3.0) Basophils (%) (Auto) 0.9 % (0.0-2.0) Sodium Level 148 MMOL/L (136-145) H Potassium Level 3.8 MMOL/L (3.5-5.1) Chloride Level 111 MMOL/L (98-107) H Carbon Dioxide Level 33 MMOL/L (21-32) H Anion Gap 4 mmol/L (5-15) L Blood Urea Nitrogen 15 mg/dL (7-18) Creatinine 1.2 MG/DL (0.55-1.30) Estimat Glomerular Filtration Rate > 60 mL/min (>60) Glucose Level 111 MG/DL (74-106) H Calcium Level 8.4 MG/DL (8.5-10.1) L Current Medications Medications (Trade) Dose Ordered Sig/David Route PRN Reason Start Time Stop Time Status Last Admin Dose Admin Acetaminophen (Tylenol) 650 mg Q6H PRN ORAL Mild Pain/Temp > 100.5 05/19/19 18:00 06/04/19 11:59 05/22/19 08:50 Acetaminophen/ Hydrocodone Bitart ([place] 10/325) 1 tab Q6H PRN ORAL Severe Breakthru Pain (>7) 05/19/19 18:00 05/24/19 17:59 05/23/19 09:29 Acetaminophen/ Hydrocodone Bitart ([place] 5/325) 1 tab Q6H PRN ORAL Moderate Pain (Pain Scale 4-6) 05/19/19 18:00 05/24/19 17:59 05/22/19 01:09 Apixaban (Eliquis) 5 mg BID ORAL 05/19/19 18:00 06/08/19 23:14 05/23/19 09:00 Atorvastatin Calcium (Lipitor) 40 mg BEDTIME ORAL 05/19/19 21:00 06/04/19 20:59 05/22/19 20:13 Carvedilol (Coreg) 25 mg Q12HR ORAL 05/19/19 21:00 06/08/19 20:59 05/23/19 09:00 Clonidine HCl (Catapres Tab) 0.1 mg Q8H PRN ORAL For High Blood Pressure 05/19/19 18:00 06/09/19 17:59 05/22/19 20:14 Digoxin (Lanoxin) 0.125 mg DAILY ORAL 05/20/19 09:00 06/09/19 08:59 05/23/19 09:00 Docusate Sodium (Colace) 100 mg THREE TIMES A DAY ORAL 05/19/19 18:00 06/05/19 12:59 05/23/19 12:29 Ferrous Sulfate (Feosol) 325 mg THREE TIMES A DAY ORAL 05/19/19 18:00 06/07/19 17:59 05/23/19 12:29 Fluticasone Propionate (Flonase) 1 spray TWICE A DAY NASAL 05/19/19 18:00 06/13/19 17:59 05/23/19 08:59 Gabapentin (Neurontin) 300 mg THREE TIMES A DAY ORAL 05/19/19 18:00 06/05/19 08:59 05/23/19 12:29 Hydralazine HCl (Apresoline) 50 mg THREE TIMES A DAY ORAL 05/21/19 18:00 06/18/19 14:29 05/23/19 12:29 Irbesartan (Avapro) 75 mg DAILY ORAL 05/20/19 09:00 06/15/19 08:59 05/23/19 09:01 Pantoprazole (Protonix) 40 mg EVERY 12 HOURS ORAL 05/19/19 21:00 06/05/19 20:59 05/23/19 09:01 Potassium Chloride (K-Dur) 40 meq BID ORAL 05/19/19 18:00 06/14/19 12:44 05/23/19 09:01 Cortney Jackson M.D. May 23, 2019 15:27
[2019-05-23 16:00] VITALS: BP 170/90
--- NOTE | 2019-05-23 16:08 | NUR ---
CASE MANAGEMENT:REVIEW 05/21/19 SI:PNA. COPD. OBESITY 98.8 73 19 165/106 96% ON 3L/NC H/H 11.1/34.1 NA+ 148 CL- 109 BG 120 CA+8.4 C REC PROT 1.2 IS: CLONIDINE PO Q8HR /PRN K-DUR PO BID AVAPRO PO QD DIGOXIN PO QD HYDRALAZINE PO TID ELIQUIS PO BID COREG PO BID NEURONTIN PO TID PROTONIX PO BID FEOSOL PO TID : 4E MED SURG UNIT DCP: FROM HOME W/OXYGEN PLAN: HIGHER LEVEL OF CARE PLACEMENT CASE MANAGEMENT:REVIEW 05/22/19 SI:PNA. COPD. OBESITY 97.8 80 24 169/105 95% ON 3L/NC IS: CLONIDINE PO Q8HR /PRN K-DUR PO BID AVAPRO PO QD DIGOXIN PO QD HYDRALAZINE PO TID ELIQUIS PO BID COREG PO BID NEURONTIN PO TID PROTONIX PO BID FEOSOL PO TID : 4E MED SURG UNIT DCP: FROM HOME W/OXYGEN PLAN: HIGHER LEVEL OF CARE PLACEMENT CASE MANAGEMENT:REVIEW 05/23/19 SI:PNA. COPD. OBESITY 97.6 74 24 180/103 96% ON 3L/NC NA+ 148 CL-111 C02 33 CA+ 8.4 H/H 11.1/34.1 IS: CLONIDINE PO Q8HR /PRN K-DUR PO BID AVAPRO PO QD DIGOXIN PO QD HYDRALAZINE PO TID ELIQUIS PO BID COREG PO BID NEURONTIN PO TID PROTONIX PO BID FEOSOL PO TID : 4E MED SURG UNIT DCP: FROM HOME W/OXYGEN PLAN: HIGHER LEVEL OF CARE PLACEMENT
--- NOTE | 2019-05-23 16:32 | NUR ---
*-* INSURANCE *-* ALL CLINICALS AND REVIEWS HAVE BEEN FAXED TO: [employer] TRADER ASSIGNED AT THIS TIME, PLEASE FAX THE REVIEW/CLINICAL P- [phone] F- [phone]....REVIEW/CLINICAL
--- NOTE | 2019-05-23 19:15 | NUR ---
HAND-OFF: Report given to KEESHA Gaitan.
--- NOTE | 2019-05-23 19:39 | NUR ---
NURSE NOTES: Received patient awake, alert, verbal, resting in bed, comfortable, no SOB.
[2019-05-23 20:13] VITALS: BP 191/87
[2019-05-23] MEDS: Atorvastatin 20mg tab ORAL SCH (20:24)
[2019-05-23] MEDS ORDERED: Ketorolac 30mg Inj IV PRN (22:45)
--- NOTE | 2019-05-23 23:56 | Cardiology Progress Note ---
Assessment/Plan Assessment/Plan 1. Paroxysmal atrial fibrillation, continue digoxin and carvedilol as well as Eliquis in face of CHADS-VASC score of 2. 2. Dyspnea, most likely acute on chronic HFnlEF due to combination of HTN, CKD and obesity, there is also element of obesity hypoventilation syndrome, no prior hx of tobacco use. Continue gentle diuresis and carvedilol. 2. Morbid obesity. 3. CKD, creat down to 1.3, continue Irbesartan. 4. DM, continue atorvastatin. 5. Hx of non-sustained ventricular tachycardia, given normal EF, continue with coreg. 6. HTN, well controlled, continue BP meds. Subjective Subjective No cardiac events are reported. Denies chest pain or SOB. Objective Last 24 Hour Vital Signs Date Time Temp Pulse Resp B/P (MAP) Pulse Ox O2 Delivery O2 Flow Rate FiO2 05/23/19 23:30 98.0 05/23/19 22:00 95 Nasal Cannula 3.0 32 05/23/19 21:30 Nasal Cannula 2.0 05/23/19 20:25 191/87 05/23/19 20:25 85 191/87 05/23/19 20:13 98.0 85 18 191/87 (121) 100 05/23/19 18:17 98.4 05/23/19 17:41 170/90 05/23/19 16:00 98.4 80 19 170/90 (116) 96 05/23/19 12:29 166/95 05/23/19 12:00 98.4 82 18 166/95 (118) 95 05/23/19 09:28 140/87 05/23/19 09:01 140/87 05/23/19 09:00 86 05/23/19 09:00 86 140/87 05/23/19 08:00 98.5 86 19 140/87 (104) 95 05/23/19 05:21 62 23 96 Facial 30 05/23/19 04:18 97.8 77 24 159/97 (117) 97 05/23/19 03:25 65 19 97 Facial 30 05/23/19 00:37 69 24 97 Facial 30 05/23/19 00:23 98.0 67 24 165/88 (113) 99 Intake and Output 05/22/19 05/23/19 19:00 07:00 Intake Total 1337.5 ml 1900 ml Output Total 2200 ml Balance 1337.5 ml -300 ml Intake Oral 700 ml IV Total 137.5 ml Other 1200 ml 1200 ml Output Urine Total 2200 ml # Voids 3 # Bowel Movements 1 2D Echo: Normal EF, Mod LVH, Mild LAE, RVSP 37, Grade II LVDD (pseudonormal Physio) Laboratory Tests Test 05/23/19 06:45 White Blood Count 9.0 K/UL (4.8-10.8) Red Blood Count 4.33 M/UL (4.70-6.10) L Hemoglobin 11.1 G/DL (14.2-18.0) L Hematocrit 34.1 % (42.0-52.0) L Mean Corpuscular Volume 79 FL (80-99) L Mean Corpuscular Hemoglobin 25.6 PG (27.0-31.0) L Mean Corpuscular Hemoglobin Concent 32.4 G/DL (32.0-36.0) Red Cell Distribution Width 16.2 % (11.6-14.8) H Platelet Count 190 K/UL (150-450) Mean Platelet Volume 8.0 FL (6.5-10.1) Neutrophils (%) (Auto) 68.1 % (45.0-75.0) Lymphocytes (%) (Auto) 21.4 % (20.0-45.0) Monocytes (%) (Auto) 6.8 % (1.0-10.0) Eosinophils (%) (Auto) 2.9 % (0.0-3.0) Basophils (%) (Auto) 0.9 % (0.0-2.0) Sodium Level 148 MMOL/L (136-145) H Potassium Level 3.8 MMOL/L (3.5-5.1) Chloride Level 111 MMOL/L (98-107) H Carbon Dioxide Level 33 MMOL/L (21-32) H Anion Gap 4 mmol/L (5-15) L Blood Urea Nitrogen 15 mg/dL (7-18) Creatinine 1.2 MG/DL (0.55-1.30) Estimat Glomerular Filtration Rate > 60 mL/min (>60) Glucose Level 111 MG/DL (74-106) H Calcium Level 8.4 MG/DL (8.5-10.1) L Objective HEENT: NC/AT. EOMI. Anicteric, no pallor. + obesity Neck: JVP <5 cm, no carotid bruit. Cardiovascular: Irregularly irregular rhythm, Normal S1 and S2. No murmurs, gallops or rubs Resp: Diminished BS both lungs. Abdomen: Abdomen is soft, nondistended. Nontender, + BS Extremities: No edema, clubbing or cyanosis. Sandor Lawrence MD May 23, 2019 23:56
[2019-05-24 00:26] VITALS: BP 163/74
[2019-05-24 04:17] VITALS: BP 168/100
--- NOTE | 2019-05-24 07:28 | NUR ---
NURSE NOTES: Report received from Arianna THAO. Patient awake and alert x 4. Nasal canula on 4 liters of oxygen. No signs of SOB or respiratory distress at this time. Bipap at bedside. 20 linda IV noted in left AC, patent and flushes. Patient does not have any complaints at this time. Bed locked and in lowest position. Call light within reach. Will continue to follow plan of care.
--- NOTE | 2019-05-24 07:30 | NUR ---
HAND-OFF: Report given to Jean Paul Phillip RN.
[2019-05-24 08:00] VITALS: BP 116/88
[2019-05-24] MEDS: Eliquis 5mg tablet ORAL SCH ×2 (08:37→17:26)
[2019-05-24] MEDS: HYDROcodone/Acetamin 10/325 tab ORAL PRN (08:37)
[2019-05-24] MEDS: Digoxin 0.125mg tab ORAL SCH (08:38)
[2019-05-24] MEDS: Carvedilol 25mg Tab ORAL SCH ×2 (08:40→20:29)
[2019-05-24] MEDS: HydrALAZINE 50mg tab ORAL SCH ×3 (08:41→17:26)
[2019-05-24] MEDS: Irbesartan 150mg tablet ORAL SCH (08:42)
[2019-05-24] MEDS: Flonase Nasal Inhaler 16gm NASAL SCH ×2 (08:42→17:27)
[2019-05-24] MEDS: Docusate 100mg cap ORAL SCH ×3 (08:43→17:27)
--- NOTE | 2019-05-24 08:55 | NUR ---
PT NOTE Attempted to see patient for PT treatment. Patient declining to participate with PT stating "I'm not walking today, I walked yesterday." Explained to patient importance of daily participation with PT however patient continued to decline. Patient was asked if he would like therapist to return later today and patient responded "no, I want to rest." Jean Paul THAO notified.
--- NOTE | 2019-05-24 09:42 | General Progress Note ---
Assessment/Plan Assessment/Plan: S: I am not feeling ok O: seems comfortable. exertional sob with minimal activity. Ambulating in the room with assistance. 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 Acute on chronic COPD (chronic obstructive pulmonary disease) exacerbation 3. Morbid obesity 4. HTN 5. Multiple joint OA 6. Afib 7. NATASHA 8. Refusal of Care 9. ARF : improved Plan: start iron supplement optimise BP medication Disposition to SNF C/w NI-ventilation notes from CM reviewed Subjective Allergies: Coded Allergies: RIVAROXABAN (Verified Allergy, Unknown, 04/05/19) Objective Last 24 Hour Vital Signs Date Time Temp Pulse Resp B/P (MAP) Pulse Ox O2 Delivery O2 Flow Rate FiO2 05/24/19 08:42 116/88 05/24/19 08:41 116/88 05/24/19 08:40 81 116/88 05/24/19 08:38 81 05/24/19 04:55 168/100 05/24/19 04:17 98.0 72 20 168/100 (122) 97 05/24/19 03:32 65 20 96 Facial 30 05/24/19 01:38 71 24 95 Facial 30 05/24/19 00:26 98.3 73 19 163/74 (103) 98 05/23/19 23:30 98.0 05/23/19 22:00 95 Nasal Cannula 3.0 32 05/23/19 21:30 Nasal Cannula 2.0 05/23/19 20:25 191/87 05/23/19 20:25 85 191/05/23/19 20:13 98.0 85 18 191/ (121) 100 05/23/19 18:17 98.4 05/23/19 17:41 170/90 05/23/19 16:00 98.4 80 19 170/90 (116) 96 05/23/19 12:29 166/95 05/23/19 12:00 98.4 82 18 166/95 (118) 95 Intake and Output 05/23/19 05/24/19 19:00 07:00 Intake Total 1200 ml Balance 1200 ml Other 1200 ml # Voids 2 Height (Feet): 5 Height (Inches): 10.00 Weight (Pounds): 431 Desirae Haro MD May 24, 2019 09:42
--- NOTE | 2019-05-24 10:09 | NUR ---
*-* INSURANCE *-* UPDATED AND REVIEWS HAVE BEEN FAXED TO: PETER[employer]TU[employer] NO FLEET MAINTENANCE MANAGER ASSIGNED AT THIS TIME, PLEASE FAX THE REVIEW/CLINICAL P- [phone] F- [phone]....REVIEW/CLINICAL
--- NOTE | 2019-05-24 11:44 | NUR ---
PT WEEKLY PROGRESS NOTE Patient being seen by PT for therapeutic exercises, therapeutic activities and gait training. Patient able to ambulate limited distances with or without assistive device. Patient using supplemental O2 while ambulating. Limited progress due to multiple refusals to participate with PT due to fatigue and weakness. Patient will benefit from continued attempts to participate with PT for strengthening, patient education and gait training for improved activity tolerance and level of functional mobility.
[2019-05-24 12:00] VITALS: BP 122/84
--- NOTE | 2019-05-24 12:49 | Nephrology Progress Note ---
Assessment/Plan Problem List: (1) Renal failure (2) Obesity, morbid, BMI 50 or higher (3) COPD (chronic obstructive pulmonary disease) (4) Electrolyte imbalance Assessment (1) Hypokalemia (2) CHF (congestive heart failure) (3) Renal failure (4) Obesity, morbid, BMI 50 or higher (5) CO2 retention (6) COPD (chronic obstructive pulmonary disease) elevated Cr likely due to diuresis Obesity , NATASHA AT fib with FVR HTN Congestive heart failure, likely diastolic dysfunction. EF 60% Recurrent NSVT. No syncope. Hypertension. Morbid obesity. COPD. Lipidemia. Plan K supplement as needed DC DIamox stop NSAIDs UA Monitor Cr rising Keep BP in check Monitor lytes check B12 and Folic acid Diamox PO as needed per orders per cardio and pulmonary taper steroids as possible Subjective ROS Limited/Unobtainable: No Constitutional: Reports: malaise, weakness Objective Objective Last 24 Hour Vital Signs Date Time Temp Pulse Resp B/P (MAP) Pulse Ox O2 Delivery O2 Flow Rate FiO2 05/24/19 09:43 74 24 94 Facial 30 05/24/19 09:34 94 Bi-Pap 30 05/24/19 08:42 116/88 05/24/19 08:41 116/88 05/24/19 08:40 81 116/88 05/24/19 08:38 81 05/24/19 08:00 98.3 74 20 116/88 (97) 97 05/24/19 04:55 168/100 05/24/19 04:17 98.0 72 20 168/100 (122) 97 05/24/19 03:32 65 20 96 Facial 30 05/24/19 01:38 71 24 95 Facial 30 05/24/19 00:26 98.3 73 19 163/74 (103) 98 05/23/19 23:30 98.0 05/23/19 22:00 95 Nasal Cannula 3.0 32 05/23/19 21:30 Nasal Cannula 2.0 05/23/19 20:25 191/87 05/23/19 20:25 85 191/87 05/23/19 20:13 98.0 85 18 191/87 (121) 100 05/23/19 18:17 98.4 05/23/19 17:41 170/90 05/23/19 16:00 98.4 80 19 170/90 (116) 96 Intake and Output 05/23/19 05/24/19 19:00 07:00 Intake Total 1200 ml Balance 1200 ml Other 1200 ml # Voids 2 Height (Feet): 5 Height (Inches): 10.00 Weight (Pounds): 431 General Appearance: no apparent distress Cardiovascular: normal rate Respiratory/Chest: decreased breath sounds Abdomen: distended Objective no change Bebeto Yin MD May 24, 2019 12:49
--- NOTE | 2019-05-24 14:26 | NUR ---
DISCHARGE PLANNING: PATIENT HAS BEEN REFERRED TO 1# [facility] T: [phone] 2#[facility] T:[id number] 3#[facility] [place] T: [phone] 4#[facility] T:[phone] 5#[facility] [place] T:[phone] 6#[facility] [place] T: [phone] 7#[facility] [place] T: [phone] 8#[facility] T:[phone] 9#[facility] T:[phone] 10#[facility] T:[phone] 11# [facility] T: [phone] WILL F/U
--- NOTE | 2019-05-24 14:32 | NUR ---
CASE MANAGEMENT:REVIEW 05/24/19 SI:PNA. COPD. OBESITY 98.3 74 20 116/88 97% ON 3L/NC IS: CLONIDINE PO Q8HR /PRN K-DUR PO BID AVAPRO PO QD DIGOXIN PO QD HYDRALAZINE PO TID ELIQUIS PO BID COREG PO BID NEURONTIN PO TID PROTONIX PO BID FEOSOL PO TID : 4E MED SURG UNIT DCP: FROM HOME W/OXYGEN PLAN: CHEST X-RAY SHOW ENLARGE HEART PLACEMENT
[2019-05-24 16:00] VITALS: BP 156/84
--- NOTE | 2019-05-24 19:30 | NUR ---
HAND-OFF: Report given to Kath THAO. Patient in stable condition.
--- NOTE | 2019-05-24 19:31 | NUR ---
NURSE NOTES: Received patient in no apparent distress. A&OX4. NC 4L on, no s/s of respiratory distress noted. IV site patent and intact. Bed in lowest position. Call light within reach. Will continue to monitor.
[2019-05-24 20:00] VITALS: BP 187/79
[2019-05-24] MEDS: Atorvastatin 20mg tab ORAL SCH (20:29)
[2019-05-24] MEDS ORDERED: Ketorolac 30mg Inj IV PRN (20:30)
--- NOTE | 2019-05-24 23:54 | Cardiology Progress Note ---
Assessment/Plan Assessment/Plan 1. Paroxysmal atrial fibrillation, continue digoxin and carvedilol as well as Eliquis in face of CHADS-VASC score of 2. 2. Dyspnea, most likely acute on chronic HFnlEF due to combination of HTN, CKD and obesity, there is also element of obesity hypoventilation syndrome, no prior hx of tobacco use. Continue gentle diuresis and carvedilol. 3. Morbid obesity. 4. CKD, creat down to 1.3,,continue Irbesartan. 5. DM, continue atorvastatin. 6. Hx of non-sustained ventricular tachycardia, given normal EF, continue with coreg. 7. HTN, well controlled, will optimize irbesartan if persistent. Subjective Subjective No cardiac events are reported. Denies chest pain or SOB. Objective Last 24 Hour Vital Signs Date Time Temp Pulse Resp B/P (MAP) Pulse Ox O2 Delivery O2 Flow Rate FiO2 05/24/19 21:00 Nasal Cannula 4.0 05/24/19 20:29 80 187/79 05/24/19 20:00 98.2 80 18 187/79 (115) 96 05/24/19 19:46 92 Nasal Cannula 3.0 32 05/24/19 19:33 Nasal Cannula 2.0 05/24/19 17:26 156/85 05/24/19 16:58 156/85 05/24/19 16:00 98.3 72 19 156/84 (108) 97 05/24/19 13:00 122/84 05/24/19 12:00 98.4 79 19 122/84 (97) 97 05/24/19 09:43 74 24 94 Facial 30 05/24/19 09:34 94 Bi-Pap 30 05/24/19 08:42 116/88 05/24/19 08:41 116/88 05/24/19 08:40 81 116/88 05/24/19 08:38 81 05/24/19 08:00 98.3 74 20 116/88 (97) 97 05/24/19 04:55 168/100 05/24/19 04:17 98.0 72 20 168/100 (122) 97 05/24/19 03:32 65 20 96 Facial 30 05/24/19 01:38 71 24 95 Facial 30 05/24/19 00:26 98.3 73 19 163/74 (103) 98 Intake and Output 05/23/19 05/24/19 19:00 07:00 Intake Total 1200 ml Balance 1200 ml Other 1200 ml # Voids 2 2D Echo: Normal EF, Mod LVH, Mild LAE, RVSP 37, Grade II LVDD (pseudonormal Physio) Objective HEENT: NC/AT. EOMI. Anicteric, no pallor. + obesity Neck: JVP <5 cm, no carotid bruit. Cardiovascular: Irregularly irregular rhythm, Normal S1 and S2. No murmurs, gallops or rubs Resp: Diminished BS both lungs. Abdomen: Abdomen is soft, nondistended. Nontender, + BS Extremities: No edema, clubbing or cyanosis. Sandor Lawrence MD May 24, 2019 23:54
[2019-05-25] VITALS: BP 192/105
--- NOTE | 2019-05-25 04:00 | NUR ---
NURSE NOTES: Patient refused check Blood pressure. Explained risk and benefit but still refused.
--- NOTE | 2019-05-25 07:16 | NUR ---
HAND-OFF: Report given to Jean Paul THAO.
--- NOTE | 2019-05-25 07:24 | NUR ---
NURSE NOTES: Report received from Kath THAO. Patient awake and alert x 4. Nasal canula on 4 liters of oxygen. No signs of SOB or respiratory distress at this time. Bipap at bedside. 20 linda IV noted in left AC, patent and flushes. Patient sitting in fowlers position in bed eating breakfast. Patient does not have any complaints at this time. Bed locked and in lowest position. Call light within reach. Will continue to follow plan of care.
[2019-05-25 08:00] VITALS: BP 189/121
[2019-05-25] MEDS: Flonase Nasal Inhaler 16gm NASAL SCH ×2 (09:00→17:21)
[2019-05-25] MEDS: Irbesartan 150mg tablet ORAL SCH (09:09)
[2019-05-25] MEDS: Eliquis 5mg tablet ORAL SCH ×2 (09:10→17:17)
[2019-05-25] MEDS: HydrALAZINE 50mg tab ORAL SCH ×3 (09:10→17:17)
[2019-05-25] MEDS: Carvedilol 25mg Tab ORAL SCH ×2 (09:10→20:49)
[2019-05-25] MEDS: Digoxin 0.125mg tab ORAL SCH (09:11)
[2019-05-25] MEDS: Docusate 100mg cap ORAL SCH ×3 (09:11→17:17)
--- NOTE | 2019-05-25 09:12 | NUR ---
NURSE NOTES: PRN clonidine given due to blood pressure of 189/121. Will continue to monitor and follow plan of care.
--- NOTE | 2019-05-25 10:05 | NUR ---
P.T Note: P.T services withheld per RN request due to high BP. Will reattempt tomorrow.
--- NOTE | 2019-05-25 10:16 | General Progress Note ---
Assessment/Plan Assessment/Plan: S: I am not feeling ok O: seems comfortable. exertional sob with minimal activity. Ambulating in the room with assistance. Physical Exam General Appearance: alert, GCS 15, obese, Chronically Ill Head: normocephalic Eyes: bilateral eye PERRL, ENT: TMs + canals normal, uvula midline Neck: full range of motion Respiratory: lungs clear, decreased breath sounds Cardiovascular #1: edema - 1+ Edema Gastrointestinal: normal inspection, normal bowel sounds, non tender Musculoskeletal: normal inspection Neurologic: alert, motor strength/tone normal, steam tender III-XII nml as tested, oriented x3 Psychiatric: normal inspection Skin: other - Bilateral scaly rash to the lower extremities Labs and Meds: reviewed and reconciled Assessment/Plan: 1. Acute on chronic COPD (chronic obstructive pulmonary disease) exacerbation 3. Morbid obesity 4. HTN 5. Multiple joint OA 6. Afib 7. NATASHA 8. Refusal of Care 9. ARF : improved Plan: start iron supplement optimise BP medication Disposition to SNF C/w NI-ventilation notes from CM reviewed Subjective Allergies: Coded Allergies: RIVAROXABAN (Verified Allergy, Unknown, 04/05/19) Objective Last 24 Hour Vital Signs Date Time Temp Pulse Resp B/P (MAP) Pulse Ox O2 Delivery O2 Flow Rate FiO2 05/25/19 09:11 84 05/25/19 09:11 189/121 05/25/19 09:10 189/121 05/25/19 09:10 84 189/121 05/25/19 09:09 189/121 05/25/19 05:46 64 24 94 Facial 30 05/25/19 04:00 20 05/25/19 03:16 72 20 96 Facial 30 05/25/19 01:36 79 18 96 Facial 30 05/25/19 00:54 192/105 05/25/19 00:00 98.1 79 20 192/105 (134) 94 05/24/19 21:00 Nasal Cannula 4.0 05/24/19 20:29 80 187/79 05/24/19 20:00 98.2 80 18 187/79 (115) 96 05/24/19 19:46 92 Nasal Cannula 3.0 32 05/24/19 19:33 Nasal Cannula 2.0 05/24/19 17:26 156/85 05/24/19 16:58 156/85 05/24/19 16:00 98.3 72 19 156/84 (108) 97 05/24/19 13:00 122/84 05/24/19 12:00 98.4 79 19 122/84 (97) 97 Intake and Output 05/24/19 05/25/19 19:00 07:00 Intake Total 1640 ml Output Total 600 ml Balance 1640 ml -600 ml Intake Oral 1640 ml Output Urine Total 600 ml # Voids 8 # Bowel Movements 2 2 Height (Feet): 5 Height (Inches): 10.00 Weight (Pounds): 439 Desirae Haro MD May 25, 2019 10:16
--- NOTE | 2019-05-25 10:18 | Nephrology Progress Note ---
Assessment/Plan Problem List: (1) Renal failure (2) Obesity, morbid, BMI 50 or higher (3) COPD (chronic obstructive pulmonary disease) (4) Electrolyte imbalance Assessment (1) Hypokalemia (2) CHF (congestive heart failure) (3) Renal failure (4) Obesity, morbid, BMI 50 or higher (5) CO2 retention (6) COPD (chronic obstructive pulmonary disease) elevated Cr likely due to diuresis Obesity , NATASHA AT fib with FVR HTN Congestive heart failure, likely diastolic dysfunction. EF 60% Recurrent NSVT. No syncope. Hypertension. Morbid obesity. COPD. Lipidemia. Plan K supplement as needed DC DIamox stop NSAIDs UA Monitor Cr rising Keep BP in check Monitor lytes check B12 and Folic acid Diamox PO as needed per orders per cardio and pulmonary taper steroids as possible Subjective ROS Limited/Unobtainable: No Constitutional: Reports: malaise, weakness Objective Objective Last 24 Hour Vital Signs Date Time Temp Pulse Resp B/P (MAP) Pulse Ox O2 Delivery O2 Flow Rate FiO2 05/25/19 09:11 84 05/25/19 09:11 189/121 05/25/19 09:10 189/121 05/25/19 09:10 84 189/121 05/25/19 09:09 189/121 05/25/19 05:46 64 24 94 Facial 30 05/25/19 04:00 20 05/25/19 03:16 72 20 96 Facial 30 05/25/19 01:36 79 18 96 Facial 30 05/25/19 00:54 192/105 05/25/19 00:00 98.1 79 20 192/105 (134) 94 05/24/19 21:00 Nasal Cannula 4.0 05/24/19 20:29 80 187/79 05/24/19 20:00 98.2 80 18 187/79 (115) 96 05/24/19 19:46 92 Nasal Cannula 3.0 32 05/24/19 19:33 Nasal Cannula 2.0 05/24/19 17:26 156/85 05/24/19 16:58 156/85 05/24/19 16:00 98.3 72 19 156/84 (108) 97 05/24/19 13:00 122/84 05/24/19 12:00 98.4 79 19 122/84 (97) 97 Intake and Output 05/24/19 05/25/19 19:00 07:00 Intake Total 1640 ml Output Total 600 ml Balance 1640 ml -600 ml Intake Oral 1640 ml Output Urine Total 600 ml # Voids 8 # Bowel Movements 2 2 Height (Feet): 5 Height (Inches): 10.00 Weight (Pounds): 439 General Appearance: no apparent distress Respiratory/Chest: decreased breath sounds Abdomen: distended Objective no change Bebeto Yin MD May 25, 2019 10:18
--- NOTE | 2019-05-25 11:00 | NUR ---
NURSE NOTES: At 0930 today patient had blood pressure of 189/121. PRN clonidine 0.1n mg given. Re-check and patients blood pressure is 198/101. Contacted Doctor Estrellita. Waiting for clarification on new PRN clonidine order.
--- NOTE | 2019-05-25 11:34 | NUR ---
NURSE NOTES: No new MD orders. Contacted Doctor Howard office to page doctor Howard about condition of patient. Still waiting for clarification from Estrellita. Awaiting call back from Howard.
[2019-05-25 12:00] VITALS: BP 174/96
[2019-05-25] MEDS: cloNIDine 0.2mg Tab ORAL PRN (12:17)
--- NOTE | 2019-05-25 12:17 | NUR ---
NURSE NOTES: Paged Dr. Haro regarding blood pressure still being elevated. Gave 0.2 mg clonidine. Awaiting to here back from Dr. Haro and Doctor Howard.
--- NOTE | 2019-05-25 14:27 | NUR ---
CASE MANAGEMENT:REVIEW 05/25/19 SI:HTN . OBESITY . ACUTE ON CHRONIC COPD. 98.1 84 22 189/121 96% ON 3L/NC IS: CLONIDINE PO Q8HR /PRN CLONIDINE PO Q6HR/PRN K-DUR PO BID AVAPRO PO QD DIGOXIN PO QD HYDRALAZINE PO TID ELIQUIS PO BID COREG PO BID NEURONTIN PO TID PROTONIX PO BID FEOSOL PO TID : 4E MED SURG UNIT DCP: FROM HOME W/OXYGEN PLAN: SP CX-PENDING CHEST X-RAY SHOW ENLARGE HEART PLACEMENT
--- NOTE | 2019-05-25 15:19 | NUR ---
NURSE NOTES: Paged Doctor Howard again due to patients blood pressure still elevated at 174/96. Waiting to here back. No more PRN medication to give. Awaiting new orders.
--- NOTE | 2019-05-25 15:24 | NUR ---
NURSE NOTES: Doctor Howard aware of high blood pressure, stated "I'll take care of it thank you". Still no new orders at this time.
[2019-05-25] MEDS: HYDROcodone/Acetamin 5/325 tab ORAL PRN (15:41)
[2019-05-25 16:00] VITALS: BP 180/99
--- NOTE | 2019-05-25 16:10 | NUR ---
*-* INSURANCE *-* UPDATED AND REVIEWS HAVE BEEN FAXED TO: PETER/TUAN NO SUPERVISOR BROADLOOM ASSIGNED AT THIS TIME, PLEASE FAX THE REVIEW/CLINICAL P- [phone] F- [phone]....REVIEW/CLINICAL
--- NOTE | 2019-05-25 16:42 | NUR ---
NURSE NOTES: Spoke with Doctor Haro in person. Made aware of patient's blood pressure continuing to be elevated and the Doctor Howard was aware with no new orders. Made Doctor Haro aware that blood pressure was still elevated at 170/90. He stated that was okay as long as Doctor Lawrence was aware.
--- NOTE | 2019-05-25 19:06 | NUR ---
HAND-OFF: Report given to Kath THAO.
--- NOTE | 2019-05-25 20:00 | NUR ---
NURSE NOTES: Patient refused check Blood pressure. Explained risk and benefit but still refused.
[2019-05-25] MEDS: Atorvastatin 20mg tab ORAL SCH (20:49)
[2019-05-26 01:00] VITALS: BP 201/96
[2019-05-26] MEDS: cloNIDine 0.2mg Tab ORAL PRN (01:07)
[2019-05-26] MEDS: HYDROcodone/Acetamin 10/325 tab ORAL PRN ×2 (01:09→18:32)
[2019-05-26 04:00] VITALS: BP 161/86
--- NOTE | 2019-05-26 06:22 | NUR ---
NURSE NOTES: Call and left message to Dr. Haro regarding pain medication. Patient request Morphine for pain. [place] and Toradol are not much reduce for pain. Waiting a call back.
--- NOTE | 2019-05-26 06:43 | NUR ---
NURSE NOTES: Per Dr. Haro, "Notify Dr. Stack or his PA, No to Morphine".
--- NOTE | 2019-05-26 07:36 | NUR ---
HAND-OFF: Report given to Kiley THAO.
--- NOTE | 2019-05-26 07:58 | NUR ---
NURSE NOTES: Patient awake, alert x4; on Nasal Cannula 4 Liters; Bipap machine at the bed side; IV Left AC 22G flushes well; side rails up x2, breaks engaged, bed at lowest position; call light within reach; will keep monitoring.
[2019-05-26 08:00] VITALS: BP 164/96
[2019-05-26 08:10] LABS: EOSINOPHILS % (AUTO) 4.7 % (0.0-3.0); HEMATOCRIT 33.9 % (42.0-52.0); HEMOGLOBIN 10.9 G/DL (14.2-18.0); LYMPHOCYTES % (AUTO) 24.3 % (20.0-45.0); MEAN CORPUSCULAR VOLUME 79 FL (80-99); MONOCYTES % (AUTO) 7.4 % (1.0-10.0); NEUTROPHILS % (AUTO) 62.6 % (45.0-75.0); PLATELET COUNT 203 K/UL (150-450); RED BLOOD COUNT 4.29 M/UL (4.70-6.10); RED CELL DISTRIBUTION WIDTH 16.4 % (11.6-14.8); WHITE BLOOD COUNT 8.7 K/UL (4.8-10.8)
[2019-05-26 08:34] LABS: ALANINE AMINOTRANSFERASE 16 U/L (12-78); ALBUMIN/GLOBULIN RATIO 0.9 (1.0-2.7); ALKALINE PHOSPHATASE 53 U/L (46-116); ANION GAP 7 mmol/L (5-15); ASPARTATE AMINO TRANSFERASE 10 U/L (15-37); BILIRUBIN,TOTAL 0.4 MG/DL (0.2-1.0); BLOOD UREA NITROGEN 14 mg/dL (7-18); CALCIUM 8.4 MG/DL (8.5-10.1); CARBON DIOXIDE 30 MMOL/L (21-32); CHLORIDE 111 MMOL/L (98-107); CREATININE 1.1 MG/DL (0.55-1.30); PHOSPHORUS 3.7 MG/DL (2.5-4.9); POTASSIUM 4.2 MMOL/L (3.5-5.1); SODIUM 148 MMOL/L (136-145)
[2019-05-26] MEDS: Carvedilol 25mg Tab ORAL SCH ×2 (09:00→21:41)
[2019-05-26] MEDS: HydrALAZINE 50mg tab ORAL SCH ×3 (09:00→17:27)
[2019-05-26] MEDS: Flonase Nasal Inhaler 16gm NASAL SCH ×2 (09:00→17:26)
[2019-05-26] MEDS: Irbesartan 150mg tablet ORAL SCH (09:01)
[2019-05-26] MEDS: Digoxin 0.125mg tab ORAL SCH (09:01)
[2019-05-26] MEDS: Eliquis 5mg tablet ORAL SCH ×2 (09:01→17:26)
[2019-05-26] MEDS: Docusate 100mg cap ORAL SCH ×3 (09:01→17:27)
--- NOTE | 2019-05-26 10:06 | Nephrology Progress Note ---
Assessment/Plan Problem List: (1) Renal failure (2) Obesity, morbid, BMI 50 or higher (3) COPD (chronic obstructive pulmonary disease) (4) Electrolyte imbalance Assessment (1) Hypokalemia (2) CHF (congestive heart failure) (3) Renal failure (4) Obesity, morbid, BMI 50 or higher (5) CO2 retention (6) COPD (chronic obstructive pulmonary disease) elevated Cr likely due to diuresis Obesity , NATASHA AT fib with FVR HTN Congestive heart failure, likely diastolic dysfunction. EF 60% Recurrent NSVT. No syncope. Hypertension. Morbid obesity. COPD. Lipidemia. Plan K supplement as needed DC DIamox stop NSAIDs UA Monitor Cr rising Keep BP in check Monitor lytes check B12 and Folic acid Diamox PO as needed per orders per cardio and pulmonary taper steroids as possible Subjective ROS Limited/Unobtainable: No Constitutional: Reports: malaise Objective Objective Last 24 Hour Vital Signs Date Time Temp Pulse Resp B/P (MAP) Pulse Ox O2 Delivery O2 Flow Rate FiO2 05/26/19 09:01 96 Nasal Cannula 3.0 32 05/26/19 09:01 164/96 05/26/19 09:01 79 05/26/19 09:00 164/96 05/26/19 09:00 79 164/96 05/26/19 08:00 97.8 79 18 164/96 (118) 95 05/26/19 04:00 97.5 73 20 161/86 (111) 96 05/26/19 03:14 69 22 96 Facial 30 05/26/19 01:07 201/96 05/26/19 01:00 98.2 77 25 201/96 (131) 96 05/25/19 22:09 72 29 95 Facial 30 05/25/19 21:00 Nasal Cannula 4.0 05/25/19 20:52 61 18 95 Nasal Cannula 3.0 32 05/25/19 20:49 72 180/99 05/25/19 20:00 20 05/25/19 19:55 95 Nasal Cannula 3.0 32 05/25/19 17:20 180/99 05/25/19 17:17 180/99 05/25/19 16:00 98.8 72 20 180/99 (126) 96 05/25/19 12:17 198/101 05/25/19 12:17 198/101 05/25/19 12:00 98.4 79 19 174/96 (122) 94 Intake and Output 05/25/19 05/26/19 19:00 07:00 Intake Total 1460 ml Output Total 1100 ml Balance 1460 ml -1100 ml Intake Oral 1460 ml Output Urine Total 1100 ml # Voids 7 4 # Bowel Movements 1 Laboratory Tests 05/26/19 05:55: White Blood Count 8.7, Red Blood Count 4.29L, Hemoglobin 10.9L, Hematocrit 33.9L , Mean Corpuscular Volume 79L, Mean Corpuscular Hemoglobin 25.3L, Mean Corpuscular Hemoglobin Concent 32.1, Red Cell Distribution Width 16.4H, Platelet Count 203, Mean Platelet Volume 9.0, Neutrophils (%) (Auto) 62.6, Lymphocytes (%) (Auto) 24.3, Monocytes (%) (Auto) 7.4, Eosinophils (%) (Auto) 4.7H, Basophils (%) (Auto) 1.0, Sodium Level 148H, Potassium Level 4.2, Chloride Level 111H, Carbon Dioxide Level 30, Anion Gap 7, Blood Urea Nitrogen 14, Creatinine 1.1, Estimat Glomerular Filtration Rate > 60, Glucose Level 98, Uric Acid 4.8, Calcium Level 8.4L, Phosphorus Level 3.7, Magnesium Level 2.0, Total Bilirubin 0.4, Aspartate Amino Transf (AST/SGOT) 10L, Alanine Aminotransferase (ALT/SGPT) 16, Alkaline Phosphatase 53, C-Reactive Protein, Quantitative 1.1H, Pro-B-Type Natriuretic Peptide [Pending], Total Protein 6.4, Albumin 3.0L, Globulin 3.4, Albumin/Globulin Ratio 0.9L Height (Feet): 5 Height (Inches): 10.00 Weight (Pounds): 439 General Appearance: no apparent distress Objective no change Bebeto iYn MD May 26, 2019 10:06
--- NOTE | 2019-05-26 11:12 | NUR ---
PT NOTE Attempted to see patient for PT treatment. Patient declining to participate with PT at this time, on Bipap. Padmaja THAO notified, will follow up tomorrow.
[2019-05-26 12:00] VITALS: BP 177/113
--- NOTE | 2019-05-26 13:38 | NUR ---
CASE MANAGEMENT:REVIEW SI;AC/CHR COPD, MORBID OBESITY. HTN 97.5 69 25 177/113 94% ON 2L NC NA 148 IS;CLONIDINE PO Q6 HRS PRN HYDRALAZINE PO TID COREG PO Q12 HR K-DUR PO BID MED/SURG STATUS DCP;FROM HOME
--- NOTE | 2019-05-26 14:29 | NUR ---
*-* DISCHARGE PLANNING *-* PATIENT HAS BEEN REFERRED TO: 1. [facility] P: [phone] F: [phone] 2. [facility] P: [phone] F: [phone] 3. [facility] P: [phone] F: [phone] 4. [facility] P: [phone] F: [phone] 5. [facility] P: [phone] F: [phone] 6. [facility] P: [phone] F: [phone] 7. [facility] P: [phone] F: [phone] 8. [facility] P; [phone] F: [phone] 9. [facility] P; [phone] F: [phone] 10.[facility] P: [phone] F: [phone]
[2019-05-26 16:00] VITALS: BP 188/111
--- NOTE | 2019-05-26 17:09 | NUR ---
*-* INSURANCE *-* UPDATED AND REVIEWS HAVE BEEN FAXED TO: [employer] COORDINATOR ASSIGNED AT THIS TIME, PLEASE FAX THE REVIEW/CLINICAL P- [phone] F- [phone]....REVIEW/CLINICAL
--- NOTE | 2019-05-26 19:22 | NUR ---
HAND-OFF: Report given to BONILLA Walker.
[2019-05-26 20:00] VITALS: BP 187/111
--- NOTE | 2019-05-26 20:00 | NUR ---
NURSE NOTES: RECEIVED PATIENT LYING IN BED, AWAKE, ALERT/ORIENTED X4, VERBALLY RESPONSIVE, NO SIGNS AND SYMPTOMS OF ACUTE CARDIO RESPIRATORY DISTRESS/SHORTNESS OF BREATH, DENIES CHEST PAIN, BIPAP AT BEDSIDE. IV INTACT LEFT AC/GAUGE 20, NO REDNESS/SWELLING NOTED. ABDOMEN OBESE/NON TENDER/AUDIBLE BOWEL SOUNDS, NO COMPLAINTS OF GI DISCOMFORT, NO NAUSEA/VOMITING. SIDE RAILS UP X2 FOR MOBILITY, BED IN LOWEST POSITION FOR SAFETY, ENCOURAGED PATIENT TO UTILIZE CALL LIGHT FOR ASISSTANCE, VERBALIZED UNDERSTANDING.
[2019-05-26] MEDS: Atorvastatin 20mg tab ORAL SCH (21:38)
--- NOTE | 2019-05-26 23:15 | Cardiology Progress Note ---
Assessment/Plan Assessment/Plan 1. Paroxysmal atrial fibrillation, continue digoxin and carvedilol as well as Eliquis in face of CHADS-VASC score of 2. 2. Dyspnea, most likely acute on chronic HFnlEF due to combination of HTN, CKD and obesity, there is also element of obesity hypoventilation syndrome, no prior hx of tobacco use. Continue gentle diuresis and carvedilol. 3. Morbid obesity. 4. CKD, creat down to 1.1, continue Irbesartan. 5. DM, continue atorvastatin. 6. Hx of non-sustained ventricular tachycardia, given normal EF, continue with coreg. 7. HTN, stage II, increase irbesartan to 300mg daily. Subjective Subjective No cardiac events are reported. Objective Last 24 Hour Vital Signs Date Time Temp Pulse Resp B/P (MAP) Pulse Ox O2 Delivery O2 Flow Rate FiO2 05/26/19 21:41 84 165/99 05/26/19 19:02 98.8 05/26/19 17:27 188/111 05/26/19 16:00 98.8 68 18 188/111 (136) 97 05/26/19 12:08 177/113 05/26/19 12:00 97.9 79 18 177/113 (134) 94 05/26/19 09:01 96 Nasal Cannula 3.0 32 05/26/19 09:01 164/96 05/26/19 09:01 79 05/26/19 09:00 164/96 05/26/19 09:00 79 164/96 05/26/19 08:00 97.8 79 18 164/96 (118) 95 05/26/19 04:00 97.5 73 20 161/86 (111) 96 05/26/19 03:14 69 22 96 Facial 30 05/26/19 01:07 201/96 05/26/19 01:00 98.2 77 25 201/96 (131) 96 Intake and Output 05/25/19 05/26/19 19:00 07:00 Intake Total 1460 ml Output Total 1100 ml Balance 1460 ml -1100 ml Intake Oral 1460 ml Output Urine Total 1100 ml # Voids 7 4 # Bowel Movements 1 2D Echo: Normal EF, Mod LVH, Mild LAE, RVSP 37, Grade II LVDD (pseudonormal Physio) Laboratory Tests Test 1/23/20 05:55 White Blood Count 8.7 K/UL (4.8-10.8) Red Blood Count 4.29 M/UL (4.70-6.10) L Hemoglobin 10.9 G/DL (14.2-18.0) L Hematocrit 33.9 % (42.0-52.0) L Mean Corpuscular Volume 79 FL (80-99) L Mean Corpuscular Hemoglobin 25.3 PG (27.0-31.0) L Mean Corpuscular Hemoglobin Concent 32.1 G/DL (32.0-36.0) Red Cell Distribution Width 16.4 % (11.6-14.8) H Platelet Count 203 K/UL (150-450) Mean Platelet Volume 9.0 FL (6.5-10.1) Neutrophils (%) (Auto) 62.6 % (45.0-75.0) Lymphocytes (%) (Auto) 24.3 % (20.0-45.0) Monocytes (%) (Auto) 7.4 % (1.0-10.0) Eosinophils (%) (Auto) 4.7 % (0.0-3.0) H Basophils (%) (Auto) 1.0 % (0.0-2.0) Sodium Level 148 MMOL/L (136-145) H Potassium Level 4.2 MMOL/L (3.5-5.1) Chloride Level 111 MMOL/L (98-107) H Carbon Dioxide Level 30 MMOL/L (21-32) Anion Gap 7 mmol/L (5-15) Blood Urea Nitrogen 14 mg/dL (7-18) Creatinine 1.1 MG/DL (0.55-1.30) Estimat Glomerular Filtration Rate > 60 mL/min (>60) Glucose Level 98 MG/DL (74-106) Uric Acid 4.8 MG/DL (2.6-7.2) Calcium Level 8.4 MG/DL (8.5-10.1) L Phosphorus Level 3.7 MG/DL (2.5-4.9) Magnesium Level 2.0 MG/DL (1.8-2.4) Total Bilirubin 0.4 MG/DL (0.2-1.0) Aspartate Amino Transf (AST/SGOT) 10 U/L (15-37) L Alanine Aminotransferase (ALT/SGPT) 16 U/L (12-78) Alkaline Phosphatase 53 U/L (46-116) C-Reactive Protein, Quantitative 1.1 mg/dL (0.00-0.90) H Pro-B-Type Natriuretic Peptide Pending Total Protein 6.4 G/DL (6.4-8.2) Albumin 3.0 G/DL (3.4-5.0) L Globulin 3.4 g/dL Albumin/Globulin Ratio 0.9 (1.0-2.7) L Microbiology Date/Time Source Procedure Growth Status 05/25/19 01:10 Sputum Expectorated Gram Stain - Final Resulted 05/25/19 01:10 Sputum Expectorated Sputum Culture - Preliminary Resulted Objective HEENT: NC/AT. EOMI. Anicteric, no pallor. + obesity Neck: JVP <5 cm, no carotid bruit. Cardiovascular: Irregularly irregular rhythm, Normal S1 and S2. No murmurs, gallops or rubs Resp: Diminished BS both lungs. Abdomen: Abdomen is soft, nondistended. Nontender, + BS Extremities: No edema, clubbing or cyanosis. Sandor Lawrence MD May 26, 2019 23:15
[2019-05-27] VITALS: BP 172/106
[2019-05-27] MEDS: HYDROcodone/Acetamin 10/325 tab ORAL PRN ×2 (00:35→13:57)
[2019-05-27 04:00] VITALS: BP 168/98
--- NOTE | 2019-05-27 06:11 | NUR ---
NURSE NOTES: NO SIGNIFICANT CHANGE OF CONDITION NOTED THROUGHOUT THE NIGHT. SAFETY MAINTAINED. NAD.
--- NOTE | 2019-05-27 07:30 | NUR ---
HAND-OFF: Report given to DANILO GUZMAN RN.
[2019-05-27 08:00] VITALS: BP 189/121
--- NOTE | 2019-05-27 08:00 | NUR ---
pt in bed no s/s of acute distress aox4 iv patent mai patent no cmplaints noted will cont to monitor
[2019-05-27] MEDS: Flonase Nasal Inhaler 16gm NASAL SCH ×2 (09:00→17:30)
[2019-05-27] MEDS: Carvedilol 25mg Tab ORAL SCH ×2 (09:32→20:50)
[2019-05-27] MEDS: Irbesartan 150mg tablet ORAL SCH (09:34)
[2019-05-27] MEDS: Eliquis 5mg tablet ORAL SCH ×2 (09:37→17:29)
[2019-05-27] MEDS: cloNIDine 0.2mg Tab ORAL PRN (09:39)
--- NOTE | 2019-05-27 09:40 | NUR ---
PT NOTE Attempted to see patient for PT treatment. Patient declining to participate with PT due to c/o swelling and pain [place] DAWN RN aware.
[2019-05-27] MEDS: Digoxin 0.125mg tab ORAL SCH (09:45)
[2019-05-27] MEDS: Docusate 100mg cap ORAL SCH ×3 (09:45→17:29)
--- NOTE | 2019-05-27 09:48 | Diagnostic Imaging Report ---
Indication: Bilateral arm pain Technique: Grayscale and duplex images of the right upper extremity veins Comparison: none Findings: Bilaterally, grayscale and duplex images demonstrate no evidence of intraluminal thrombus. Normal phasic Doppler waveforms. Normal compressibility. Impression: Negative for upper extremity venous thrombosis bilaterally
--- NOTE | 2019-05-27 10:14 | Nephrology Progress Note ---
Assessment/Plan Problem List: (1) Renal failure (2) Obesity, morbid, BMI 50 or higher (3) COPD (chronic obstructive pulmonary disease) (4) Electrolyte imbalance Assessment (1) Hypokalemia (2) CHF (congestive heart failure) (3) Renal failure (4) Obesity, morbid, BMI 50 or higher (5) CO2 retention (6) COPD (chronic obstructive pulmonary disease) elevated Cr likely due to diuresis Obesity , NATASHA AT fib with FVR HTN Congestive heart failure, likely diastolic dysfunction. EF 60% Recurrent NSVT. No syncope. Hypertension. Morbid obesity. COPD. Lipidemia. Plan adjust BP meds per order K supplement as needed DC DIamox stop NSAIDs UA Monitor Cr rising Monitor lytes check B12 and Folic acid Diamox PO as needed per orders per cardio and pulmonary taper steroids as possible Subjective ROS Limited/Unobtainable: No Constitutional: Reports: malaise Objective Objective Last 24 Hour Vital Signs Date Time Temp Pulse Resp B/P (MAP) Pulse Ox O2 Delivery O2 Flow Rate FiO2 05/27/19 09:45 89 05/27/19 09:39 189/121 05/27/19 09:34 189/121 05/27/19 09:32 88 189/121 05/27/19 04:00 96.6 73 23 168/98 (121) 92 05/27/19 01:26 76 21 95 Facial 30 05/27/19 01:05 98.8 05/27/19 00:05 153/101 05/27/19 00:00 98.4 80 20 172/106 (128) 94 05/26/19 22:05 74 23 96 Facial 30 05/26/19 21:41 84 165/99 05/26/19 21:00 Nasal Cannula 4.0 05/26/19 20:05 96 Nasal Cannula 3.0 32 05/26/19 20:00 98.9 76 18 187/111 (136) 97 05/26/19 17:27 188/111 05/26/19 16:00 98.8 68 18 188/111 (136) 97 05/26/19 12:08 177/113 05/26/19 12:00 97.9 79 18 177/113 (134) 94 Intake and Output 05/26/19 05/27/19 19:00 07:00 Intake Total 1800 ml 800 ml Output Total 800 ml Balance 1800 ml 0 ml Intake Oral 800 ml Other 1800 ml Output Urine Total 800 ml Current Medications Medications (Trade) Dose Ordered Sig/David Route PRN Reason Start Time Stop Time Status Last Admin Dose Admin Acetaminophen (Tylenol) 650 mg Q6H PRN ORAL Mild Pain/Temp > 100.5 05/19/19 18:00 06/04/19 11:59 05/22/19 08:50 Acetaminophen/ Hydrocodone Bitart ([place] 10/325) 1 tab Q6H PRN ORAL Severe Pain (Pain Scale 7-10) 05/24/19 20:30 05/31/19 20:29 05/27/19 00:35 Acetaminophen/ Hydrocodone Bitart ([place] 5/325) 1 tab Q6H PRN ORAL moderate pain 05/24/19 20:30 05/31/19 20:29 05/25/19 15:41 Apixaban (Eliquis) 5 mg BID ORAL 05/19/19 18:00 06/08/19 23:14 05/27/19 09:37 Atorvastatin Calcium (Lipitor) 40 mg BEDTIME ORAL 05/19/19 21:00 06/04/19 20:59 05/26/19 21:38 Carvedilol (Coreg) 25 mg Q12HR ORAL 05/19/19 21:00 06/08/19 20:59 05/27/19 09:32 Clonidine HCl (Catapres Tab) 0.1 mg Q8H PRN ORAL For High Blood Pressure 05/19/19 18:00 06/09/19 17:59 05/25/19 17:20 Clonidine HCl (Catapres tab) 0.2 mg Q6H PRN ORAL SBP>175 05/25/19 12:07 06/24/19 12:06 05/27/19 09:39 Digoxin (Lanoxin) 0.125 mg DAILY ORAL 05/20/19 09:00 06/09/19 08:59 05/27/19 09:45 Docusate Sodium (Colace) 100 mg THREE TIMES A DAY ORAL 05/19/19 18:00 06/05/19 12:59 05/27/19 09:45 Ferrous Sulfate (Feosol) 325 mg THREE TIMES A DAY ORAL 05/19/19 18:00 06/07/19 17:59 05/27/19 09:31 Fluticasone Propionate (Flonase) 1 spray TWICE A DAY NASAL 05/19/19 18:00 06/13/19 17:59 05/26/19 17:26 Gabapentin (Neurontin) 300 mg THREE TIMES A DAY ORAL 05/19/19 18:00 06/05/19 08:59 05/27/19 09:00 Hydralazine HCl (Apresoline) 50 mg THREE TIMES A DAY ORAL 05/21/19 18:00 06/18/19 14:29 05/26/19 17:27 Irbesartan (Avapro) 300 mg DAILY ORAL 05/27/19 09:00 06/26/19 08:59 05/27/19 09:34 Ketorolac Tromethamine (Toradol 30mg) 30 mg BIDPRN PRN IV breakthrough pain 05/24/19 20:30 05/28/19 22:44 05/24/19 20:32 Pantoprazole (Protonix) 40 mg EVERY 12 HOURS ORAL 05/19/19 21:00 06/05/19 20:59 05/27/19 09:32 Potassium Chloride (K-Dur) 40 meq BID ORAL 05/19/19 18:00 06/14/19 12:44 05/27/19 09:35 Height (Feet): 5 Height (Inches): 10.00 Weight (Pounds): 439 General Appearance: no apparent distress, lethargic Respiratory/Chest: decreased breath sounds Abdomen: distended Objective no change Bebeto Yin MD May 27, 2019 10:14
--- NOTE | 2019-05-27 11:03 | General Progress Note ---
Assessment/Plan Assessment/Plan: S: I am not feeling ok O: seems comfortable. exertional sob with minimal activity. Ambulating in the room with assistance. BIPAP at bed side Physical Exam General Appearance: alert, GCS 15, obese, Chronically Ill Head: normocephalic Eyes: bilateral eye PERRL, ENT: TMs + canals normal, uvula midline Neck: full range of motion Respiratory: lungs clear, decreased breath sounds Cardiovascular #1: edema - 1+ Edema Gastrointestinal: normal inspection, normal bowel sounds, non tender Musculoskeletal: normal inspection Neurologic: alert, motor strength/tone normal, brick pitcher III-XII nml as tested, oriented x3 Psychiatric: normal inspection Skin: other - Bilateral scaly rash to the lower extremities Labs and Meds: reviewed and reconciled Assessment/Plan: 1. Acute on chronic COPD (chronic obstructive pulmonary disease) exacerbation 3. Morbid obesity 4. HTN 5. Multiple joint OA 6. Afib 7. NATASHA 8. Refusal of Care 9. ARF : improved Plan: start iron supplement optimise BP medication Disposition to SNF C/w NI-ventilation notes from CM reviewed Titration of BP meds in progress NOtes from cardiology, Nephrology reviewed Subjective Allergies: Coded Allergies: RIVAROXABAN (Verified Allergy, Unknown, 04/05/19) Objective Last 24 Hour Vital Signs Date Time Temp Pulse Resp B/P (MAP) Pulse Ox O2 Delivery O2 Flow Rate FiO2 05/27/19 09:45 89 05/27/19 09:39 189/121 05/27/19 09:35 95 Nasal Cannula 3.0 32 05/27/19 09:34 189/121 05/27/19 09:32 88 189/121 05/27/19 04:00 96.6 73 23 168/98 (121) 92 05/27/19 01:26 76 21 95 Facial 30 05/27/19 01:05 98.8 05/27/19 00:05 153/101 05/27/19 00:00 98.4 80 20 172/106 (128) 94 05/26/19 22:05 74 23 96 Facial 30 05/26/19 21:41 84 165/99 05/26/19 21:00 Nasal Cannula 4.0 05/26/19 20:05 96 Nasal Cannula 3.0 32 05/26/19 20:00 98.9 76 18 187/111 (136) 97 05/26/19 17:27 188/111 05/26/19 16:00 98.8 68 18 188/111 (136) 97 05/26/19 12:08 177/113 05/26/19 12:00 97.9 79 18 177/113 (134) 94 Intake and Output 05/26/19 05/27/19 18:59 06:59 Intake Total 1800 ml 800 ml Output Total 800 ml Balance 1800 ml 0 ml Intake Oral 800 ml Other 1800 ml Output Urine Total 800 ml Height (Feet): 5 Height (Inches): 10.00 Weight (Pounds): 439 Desirea Haro MD May 27, 2019 11:03
[2019-05-27 12:00] VITALS: BP 185/108
--- NOTE | 2019-05-27 12:24 | NUR ---
CASE MANAGEMENT:REVIEW SI;AC/CHR COPD, MORBID OBESITY. HTN. 96.6 89 23 189/121 95% 3L NC NA 148 CA 8.5 IS;HYDRALAZINE PO TID CLONIDINE TDERMAL AVAPRO PO QD DIGOXIN PO QD COREG PO Q12 HRS MED/SURG STATUS DCP;SNF PLACEMENT
[2019-05-27] MEDS: HydrALAZINE 50mg tab ORAL SCH ×2 (13:22→17:29)
--- NOTE | 2019-05-27 13:44 | NUR ---
*-* INSURANCE *-* UPDATED AND REVIEWS HAVE BEEN FAXED TO: PETER[facility] NO PC TECH ASSIGNED AT THIS TIME, PLEASE FAX THE REVIEW/CLINICAL P- [phone] F- [phone]....REVIEW/CLINICAL
--- NOTE | 2019-05-27 13:46 | NUR ---
RD ASSESSMENT & RECOMMENDATIONS SEE CARE ACTIVITY FOR COMPLETE ASSESSMENT DAILY ESTIMATED NEEDS: Needs based on Cardiac, Pulmonary, morbid obese; 103kg adj 20-25 kcals/kg 2060- 2575 total kcals 1-1.5 g protein/kg 103- 155 g total protein Fluid per MD-h/o CHF mL/kg total fluid mLs NUTRITION DIAGNOSIS: * Morbid obesity R/T life style factors? excessive energy intake POLICE CADET? as evidenced by BMI >50. * Altered nutrition related lab values R/T pre-diabetes as evidenced by A1C of 6.5. CURRENT DIET:Cardiac PO DIET RECOMMENDATIONS: CARDIAC + CCHO MED ADDITIONAL RECOMMENDATIONS: 1) Standing weight for accurate CBW- daily wts given CHF dx 2) Rec adding CCHO MED to diet order: A1C 6.5 -> monitor BGs, need for hypoglycemics 3) Diet ed on heart healthy diet + wt control provided on 05/10 . .
[2019-05-27 16:00] VITALS: BP 178/79
--- NOTE | 2019-05-27 19:00 | NUR ---
pt in bed awaiting pick and shovel worker from [facility]. ambulance stated bigger bed was needed will cont to monitor
--- NOTE | 2019-05-27 19:40 | NUR ---
report given to debra ross
[2019-05-27 20:00] VITALS: BP 165/93
--- NOTE | 2019-05-27 20:09 | NUR ---
Nurses Notes Report received by Gallo. Pt awake and alert x4. able to make needs known. no acute distress noted at this time. room air at assessment. no difficulties with voiding Iv to LFA SL patent and intact. Pt in bed comfortable watching TV. will continue to monitor throughout shift
[2019-05-27] MEDS: Atorvastatin 20mg tab ORAL SCH (20:51)
[2019-05-28] VITALS: BP 160/100
[2019-05-28] MEDS: HYDROcodone/Acetamin 5/325 tab ORAL PRN (00:07)
[2019-05-28 04:00] VITALS: BP 150/97
--- NOTE | 2019-05-28 04:58 | NUR ---
Nurses notes. Pt insisted that his Doctor is called to order Morphine. Pt aware he has Toradol 30mg for breakthrough pain and [place] 10/35mg. Pt refused Toradol. educated patient regarding the benefits and consequences of taking/ not taking pain medication as ordered. pt still refused. Report given doctors aware of patient wanting morphine for pain.
--- NOTE | 2019-05-28 07:07 | NUR ---
Spoke with Dr Stevenson regarding patients request for Morphine. new orders given see EMAR Pt aware of new orders will endorse to on coming shift nurse. Consult order with pain management provider per Elva
[2019-05-28] MEDS: HYDROcodone/Acetamin 10/325 tab ORAL PRN (07:19)
--- NOTE | 2019-05-28 07:48 | NUR ---
Nurses Notes Report given to Jean Paul THAO
--- NOTE | 2019-05-28 07:50 | NUR ---
NURSE NOTES: Report received from Kisha THAO. Patient is awake and alert x 4 in fowlers position in bed. Patient noted to be on 2 liters of oxygen. Does not appear to be in respiratory distress at this time. Was endorsed by Kisha THAO that patient has recently received pain medication per orders of MD. Will follow up with patient on pain intensity. 22 linda IV noted in left forearm. patent and in tact. Call light within reach. Will continue to follow plan of care.
[2019-05-28 08:00] VITALS: BP 181/115
[2019-05-28 08:39] LABS: BASOPHILS % (AUTO) 1.5 % (0.0-2.0); EOSINOPHILS % (AUTO) 4.4 % (0.0-3.0); HEMATOCRIT 34.9 % (42.0-52.0); HEMOGLOBIN 11.3 G/DL (14.2-18.0); LYMPHOCYTES % (AUTO) 25.6 % (20.0-45.0); MEAN CORPUSCULAR VOLUME 79 FL (80-99); MONOCYTES % (AUTO) 8.1 % (1.0-10.0); NEUTROPHILS % (AUTO) 60.4 % (45.0-75.0); PLATELET COUNT 173 K/UL (150-450); RED BLOOD COUNT 4.39 M/UL (4.70-6.10); RED CELL DISTRIBUTION WIDTH 16.5 % (11.6-14.8); WHITE BLOOD COUNT 9.4 K/UL (4.8-10.8)
[2019-05-28] MEDS: Docusate 100mg cap ORAL SCH ×3 (08:58→17:04)
[2019-05-28] MEDS: Carvedilol 25mg Tab ORAL SCH ×2 (08:59→21:43)
[2019-05-28] MEDS: Eliquis 5mg tablet ORAL SCH ×2 (08:59→17:05)
[2019-05-28] MEDS: Irbesartan 150mg tablet ORAL SCH (09:00)
[2019-05-28] MEDS: Digoxin 0.125mg tab ORAL SCH (09:00)
[2019-05-28] MEDS: HydrALAZINE 50mg tab ORAL SCH ×3 (09:00→17:05)
[2019-05-28] MEDS: Flonase Nasal Inhaler 16gm NASAL SCH ×2 (09:00→17:08)
[2019-05-28 09:29] LABS: ALANINE AMINOTRANSFERASE 13 U/L (12-78); ALBUMIN 3.1 G/DL (3.4-5.0); ALBUMIN/GLOBULIN RATIO 0.9 (1.0-2.7); ALKALINE PHOSPHATASE 59 U/L (46-116); ANION GAP 6 mmol/L (5-15); ASPARTATE AMINO TRANSFERASE 13 U/L (15-37); BILIRUBIN,TOTAL 0.4 MG/DL (0.2-1.0); BLOOD UREA NITROGEN 15 mg/dL (7-18); CALCIUM 8.5 MG/DL (8.5-10.1); CARBON DIOXIDE 33 MMOL/L (21-32); CHLORIDE 109 MMOL/L (98-107); CREATININE 1.1 MG/DL (0.55-1.30); PHOSPHORUS 3.9 MG/DL (2.5-4.9); SODIUM 148 MMOL/L (136-145)
--- NOTE | 2019-05-28 11:15 | Nephrology Progress Note ---
Assessment/Plan Problem List: (1) Renal failure (2) Obesity, morbid, BMI 50 or higher (3) COPD (chronic obstructive pulmonary disease) (4) Electrolyte imbalance Assessment (1) Hypokalemia (2) CHF (congestive heart failure) (3) Renal failure (4) Obesity, morbid, BMI 50 or higher (5) CO2 retention (6) COPD (chronic obstructive pulmonary disease) elevated Cr likely due to diuresis Obesity , NATASHA AT fib with FVR HTN Congestive heart failure, likely diastolic dysfunction. EF 60% Recurrent NSVT. No syncope. Hypertension. Morbid obesity. COPD. Lipidemia. Plan adjust BP meds per order K supplement as needed DC DIamox stop NSAIDs UA Monitor Cr rising Monitor lytes check B12 and Folic acid Diamox PO as needed per orders per cardio and pulmonary taper steroids as possible Subjective ROS Limited/Unobtainable: No Constitutional: Reports: malaise Objective Objective Last 24 Hour Vital Signs Date Time Temp Pulse Resp B/P (MAP) Pulse Ox O2 Delivery O2 Flow Rate FiO2 05/28/19 09:01 181/115 05/28/19 09:00 181/115 05/28/19 09:00 181/115 05/28/19 09:00 98 05/28/19 08:59 98 181/115 05/28/19 08:54 94 Nasal Cannula 3.0 32 05/28/19 08:00 98.9 20 181/115 (137) 94 05/28/19 04:00 98.2 21 150/97 (114) 98 05/28/19 04:00 76 21 96 Facial 30 05/28/19 00:08 160/100 05/28/19 00:00 98.0 79 21 160/100 (120) 95 05/27/19 21:00 Nasal Cannula 4.0 05/27/19 20:50 87 165/93 05/27/19 20:00 98.1 97 21 165/93 (117) 97 05/27/19 19:00 95 Nasal Cannula 3.0 32 05/27/19 17:29 139/79 05/27/19 16:00 98.8 83 18 178/79 (112) 93 05/27/19 13:22 165/96 05/27/19 12:00 97.5 84 21 185/108 (133) 97 05/27/19 12:00 189/101 Intake and Output 05/27/19 05/28/19 18:59 06:59 Intake Total 1500 ml 600 ml Balance 1500 ml 600 ml Intake Oral 600 ml Other 1500 ml Laboratory Tests 05/28/19 06:20: White Blood Count 9.4, Red Blood Count 4.39L, Hemoglobin 11.3L, Hematocrit 34.9L , Mean Corpuscular Volume 79L, Mean Corpuscular Hemoglobin 25.7L, Mean Corpuscular Hemoglobin Concent 32.3, Red Cell Distribution Width 16.5H, Platelet Count 173, Mean Platelet Volume 9.8, Neutrophils (%) (Auto) 60.4, Lymphocytes (%) (Auto) 25.6, Monocytes (%) (Auto) 8.1, Eosinophils (%) (Auto) 4.4H, Basophils (%) (Auto) 1.5, Sodium Level 148H, Potassium Level 4.0, Chloride Level 109H, Carbon Dioxide Level 33H, Anion Gap 6, Blood Urea Nitrogen 15, Creatinine 1.1, Estimat Glomerular Filtration Rate > 60, Glucose Level 83, Uric Acid 4.4, Calcium Level 8.5, Phosphorus Level 3.9, Magnesium Level 2.0, Total Bilirubin 0.4, Aspartate Amino Transf (AST/SGOT) 13L, Alanine Aminotransferase (ALT/SGPT) 13, Alkaline Phosphatase 59, Troponin I 0.029, C- Reactive Protein, Quantitative 2.0H, Pro-B-Type Natriuretic Peptide 692H, Total Protein 6.6, Albumin 3.1L, Globulin 3.5, Albumin/Globulin Ratio 0.9L Height (Feet): 5 Height (Inches): 10.00 Weight (Pounds): 439 General Appearance: no apparent distress Cardiovascular: normal rate Respiratory/Chest: decreased breath sounds Abdomen: soft, other - obese Objective no change Bebeto Yin MD May 28, 2019 11:15
[2019-05-28 12:00] VITALS: BP 129/83
[2019-05-28] MEDS: oxyCODONE 5mg IR tab ORAL PRN ×2 (12:53→22:40)
[2019-05-28 16:00] VITALS: BP 150/90
--- NOTE | 2019-05-28 16:10 | NUR ---
P.T. NOTES ADDENDUM S/P: APPROACHED PATIENT'S ROOM IN THE PM. HOWEVER PATIENT ON HOLD PER RN SECONDARY TO PATIENT ON BIPAP MACHINE. WILL F/U NEXT TX. TIME. RSABADO.
--- NOTE | 2019-05-28 16:22 | NUR ---
CASE MANAGEMENT: REVIEW SI: COPD . HTN . CHF T 97.5 HR 98 RR 20 BP 181/115 SAT 94% NC/4L NA 148 TROP 0.029 BNP 692 IS: HYDRALAZINE PO TID CLONIDINE PATCH AVAPRO PO QD DIGOXIN PO QD COREG PO Q12 HR ELIQUIS 5MG PO BID COLACE 100MG PO TID MED/SURG STATUS DCP: PATIENT IS FROM HOME . SEEKING SNF PLACEMENT
--- NOTE | 2019-05-28 19:48 | NUR ---
HAND-OFF: Report given to Deborah THAO.
[2019-05-28 20:00] VITALS: BP 150/74
[2019-05-28] MEDS: Atorvastatin 20mg tab ORAL SCH (21:43)
--- NOTE | 2019-05-28 22:33 | NUR ---
RESPIRATORY NOTE: Pt placed on BiPAP for nightly use. Pt now on BiPAP /, back up rate 14, 30%. Pt on a Facial mask, skin intact, no redness/breakdowns noted. Pt refuses to wear foam tape/gel, explained pros & cons, but pt still refuses to wear. Pt alert/awake, follows commands. B/S silviano. clear/diminished, nonproductive cough. BiPAP plugged into red outlet, alarms on & audible. Pt in no apparent distress at this time. Will continue plan of care.
[2019-05-29] VITALS (7 sets, daily range): BP systolic 124–168; BP diastolic 70–96
[2019-05-29] MEDS: HYDROcodone/Acetamin 10/325 tab ORAL PRN ×2 (05:58→12:15)
--- NOTE | 2019-05-29 07:15 | NUR ---
HAND-OFF: Report given to BONILLA Castro.
--- NOTE | 2019-05-29 07:34 | NUR ---
NURSE NOTES: Report received from KEESHA Drummond. Patient is A/A/O x 4, ambulatory. On O2 2l via NC. No discomfort/ SOB noted. BIPAP @ bedside. IV noted in left forearm, patent and intact. bed in the lowest position, siderails are up x3. bed locked @ all times. Call light within reach. Will continue to follow plan of care.
[2019-05-29] MEDS: Irbesartan 150mg tablet ORAL SCH (08:17)
[2019-05-29] MEDS: Carvedilol 25mg Tab ORAL SCH ×2 (08:18→20:43)
[2019-05-29] MEDS: HydrALAZINE 50mg tab ORAL SCH ×3 (08:18→17:06)
[2019-05-29] MEDS: Digoxin 0.125mg tab ORAL SCH (08:18)
[2019-05-29] MEDS: Eliquis 5mg tablet ORAL SCH ×2 (08:18→17:06)
[2019-05-29] MEDS: Docusate 100mg cap ORAL SCH ×3 (08:18→17:06)
[2019-05-29] MEDS: Flonase Nasal Inhaler 16gm NASAL SCH ×2 (08:24→17:06)
--- NOTE | 2019-05-29 10:31 | NUR ---
PT Note Attempted to see patient for treatment but patient refused. Per RN note today, patient is ambulatory.
--- NOTE | 2019-05-29 14:51 | Internal Med Progress Note ---
Subjective Date of Service: May 29, 2019 Physician Name RachanaGerardo Attending Physician Desirae Haro MD Current Medications Medications (Trade) Dose Ordered Sig/David Route PRN Reason Start Time Stop Time Status Last Admin Dose Admin Acetaminophen (Tylenol) 650 mg Q6H PRN ORAL Mild Pain/Temp > 100.5 05/19/19 18:00 06/04/19 11:59 05/22/19 08:50 Acetaminophen/ Hydrocodone Bitart ([place] 10/325) 1 tab Q6H PRN ORAL Severe Pain (Pain Scale 7-10) 05/24/19 20:30 05/31/19 20:29 05/29/19 12:15 Acetaminophen/ Hydrocodone Bitart ([place] 5/325) 1 tab Q6H PRN ORAL moderate pain 05/24/19 20:30 05/31/19 20:29 05/28/19 00:07 Apixaban (Eliquis) 5 mg BID ORAL 05/19/19 18:00 06/08/19 23:14 05/29/19 08:18 Atorvastatin Calcium (Lipitor) 40 mg BEDTIME ORAL 05/19/19 21:00 06/04/19 20:59 05/28/19 21:43 Carvedilol (Coreg) 25 mg Q12HR ORAL 05/19/19 21:00 06/08/19 20:59 05/29/19 08:18 Clonidine HCl (Catapres TTS-3) 1 patch QWEEK TDERMAL 05/27/19 12:00 06/26/19 11:59 05/27/19 12:00 Clonidine HCl (Catapres Tab) 0.1 mg Q4H PRN ORAL For High Blood Pressure 05/27/19 11:00 06/09/19 17:59 05/28/19 17:04 Digoxin (Lanoxin) 0.125 mg DAILY ORAL 05/20/19 09:00 06/09/19 08:59 05/29/19 08:18 Docusate Sodium (Colace) 100 mg THREE TIMES A DAY ORAL 05/19/19 18:00 06/05/19 12:59 05/29/19 12:15 Ferrous Sulfate (Feosol) 325 mg THREE TIMES A DAY ORAL 05/19/19 18:00 06/07/19 17:59 05/29/19 12:14 Fluticasone Propionate (Flonase) 1 spray TWICE A DAY NASAL 05/19/19 18:00 06/13/19 17:59 05/29/19 08:24 Gabapentin (Neurontin) 300 mg THREE TIMES A DAY ORAL 05/19/19 18:00 06/05/19 08:59 05/29/19 12:14 Hydralazine HCl (Apresoline) 75 mg THREE TIMES A DAY ORAL 05/27/19 13:00 06/18/19 14:29 05/29/19 12:15 Irbesartan (Avapro) 300 mg DAILY ORAL 05/27/19 09:00 06/26/19 08:59 05/29/19 08:17 Oxycodone HCl (Roxicodone) 5 mg Q6H PRN ORAL For Pain 05/28/19 07:00 06/04/19 06:59 05/28/19 22:40 Pantoprazole (Protonix) 40 mg EVERY 12 HOURS ORAL 05/19/19 21:00 06/05/19 20:59 05/29/19 08:18 Allergies: Coded Allergies: RIVAROXABAN (Verified Allergy, Unknown, 04/05/19) ROS Limited/Unobtainable: No Constitutional: Reports: no symptoms HEENT: Reports: no symptoms Cardiovascular: Reports: no symptoms Respiratory: Reports: shortness of breath Gastrointestinal/Abdominal: Reports: no symptoms Genitourinary: Reports: no symptoms Neurologic/Psychiatric: Reports: no symptoms Subjective 48 YO M admitted with generalized weakness. Now CHF and COPD exacerbation. Cover for Int Bj-DR Haro Objective Last Vital Signs Date Time Temp Pulse Resp B/P (MAP) Pulse Ox O2 Delivery O2 Flow Rate FiO2 05/29/19 12:45 98.3 05/29/19 12:15 166/88 05/29/19 12:06 79 20 91 05/29/19 10:00 Nasal Cannula 3.0 32 Intake and Output 05/28/19 05/29/19 19:00 07:00 Intake Total 1200 ml 800 ml Output Total 1300 ml Balance 1200 ml -500 ml Intake Oral 800 ml Other 1200 ml Output Urine Total 1300 ml # Bowel Movements 1 Objective General Appearance: no apparent distress, alert, obese EENT: PERRL/EOMI, normal ENT inspection Neck: non-tender, normal alignment, supple, normal inspection Cardiovascular: normal peripheral pulses, normal rate, regular rhythm, no gallop/murmur, no JVD Respiratory/Chest: chest wall non-tender, lungs clear, normal breath sounds, no respiratory distress, no accessory muscle use Abdomen: normal bowel sounds, non tender, soft, no organomegaly, no mass Extremities: normal range of motion Neurologic: food and beverage analyst 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 normal, no motor/sensory deficits Skin: normal pigmentation, warm/dry Assessment/Plan Problem List: (1) COPD (chronic obstructive pulmonary disease) Assessment & Plan: see pulmonary note. (2) Obesity, morbid, BMI 50 or higher (3) CHF (congestive heart failure) Assessment & Plan: See cardiology note. (4) Diabetes mellitus type II, controlled (5) HTN (hypertension) (6) Paroxysmal atrial fibrillation Assessment & Plan: see cardiology note; continue digoxin (7) Renal failure (ARF), acute on chronic Assessment & Plan: See nephrology note (8) Pneumonia Assessment & Plan: Continue zosyn Assessment/Plan Discharge planning: [facility] Gerardo Reich MD May 29, 2019 14:51
--- NOTE | 2019-05-29 16:35 | Nephrology Progress Note ---
Assessment/Plan Problem List: (1) Renal failure (2) Obesity, morbid, BMI 50 or higher (3) COPD (chronic obstructive pulmonary disease) (4) Electrolyte imbalance Assessment (1) Hypokalemia (2) CHF (congestive heart failure) (3) Renal failure (4) Obesity, morbid, BMI 50 or higher (5) CO2 retention (6) COPD (chronic obstructive pulmonary disease) elevated Cr likely due to diuresis Obesity , NATASHA AT fib with FVR HTN Congestive heart failure, likely diastolic dysfunction. EF 60% Recurrent NSVT. No syncope. Hypertension. Morbid obesity. COPD. Lipidemia. Plan adjust BP meds per order K supplement as needed DC DIamox stop NSAIDs UA Monitor Cr rising Monitor lytes check B12 and Folic acid Diamox PO as needed per orders per cardio and pulmonary taper steroids as possible Subjective ROS Limited/Unobtainable: No Constitutional: Reports: malaise, weakness Objective Objective Last 24 Hour Vital Signs Date Time Temp Pulse Resp B/P (MAP) Pulse Ox O2 Delivery O2 Flow Rate FiO2 05/29/19 16:01 99.1 90 18 154/95 (114) 97 05/29/19 12:45 98.3 05/29/19 12:15 166/88 05/29/19 12:06 98.3 79 20 166/88 (114) 91 05/29/19 10:00 95 Nasal Cannula 3.0 32 05/29/19 09:00 Nasal Cannula 4.0 05/29/19 08:18 137/95 05/29/19 08:18 84 05/29/19 08:18 84 137/95 05/29/19 08:17 137/95 05/29/19 08:00 99.4 84 20 137/95 (109) 97 05/29/19 05:21 81 23 95 Facial 30 05/29/19 04:00 98.4 87 21 154/76 (102) 95 05/29/19 02:35 86 21 96 Facial 30 05/29/19 01:20 80 21 96 Facial 30 05/29/19 00:00 98.0 85 22 124/71 (88) 96 05/28/19 22:32 84 30 97 Facial 30 05/28/19 21:43 87 150/92 05/28/19 20:31 94 Nasal Cannula 3.0 32 05/28/19 20:00 98.2 87 18 150/74 (99) 95 05/28/19 17:05 161/94 05/28/19 17:04 161/94 Intake and Output 05/28/19 05/29/19 19:00 07:00 Intake Total 1200 ml 800 ml Output Total 1300 ml Balance 1200 ml -500 ml Intake Oral 800 ml Other 1200 ml Output Urine Total 1300 ml # Bowel Movements 1 Height (Feet): 5 Height (Inches): 10.00 Weight (Pounds): 439 General Appearance: no apparent distress, lethargic Cardiovascular: normal rate Respiratory/Chest: decreased breath sounds Abdomen: distended Objective no change Bebeto Yin MD May 29, 2019 16:34
--- NOTE | 2019-05-29 16:38 | Consultation ---
History of Present Illness General Date patient seen: May 29, 2019 Time patient seen: 04:00 - pm Chief Complaint: Low back pain Referring physician: Estrellita Reason for Consultation: Low back pain Present Illness HPI REVIEW OF SYSTEMS: Denies rash, fever, chills at this time, sweating, dizziness, drowsiness, blurred vision, sore throat, change in weight. No nausea, vomiting, diarrhea, or blood in the stool or urine. No dysuria. He is complaining of low back pain. SUBJECTIVE: Patient is a known patient from previous hospital admission admitted under the care of Dr. Haro due to COPD. He has been started on [place] 10/325mg PO 1 tab Q6H PRN and Oxycodone 5mg PO 1 tab Q6H PRN. We were consulted so patient has adequate pain control while her in the hospital. Allergies: Coded Allergies: RIVAROXABAN (Verified Allergy, Unknown, 04/05/19) Medication History Scheduled Amlodipine Besylate* (Amlodipine Besylate*), 10 MG ORAL DAILY, (Reported) Aspirin* (Aspirin*), 81 MG ORAL DAILY, (Reported) Atorvastatin Calcium* (Atorvastatin Calcium*), 40 MG ORAL BEDTIME, (Reported) Carvedilol (Coreg), 12.5 MG ORAL EVERY 12 HOURS Gabapentin* (Gabapentin*), 300 MG ORAL BID, (Reported) Miscellaneous Medications Unable to Obtain Medications (Unable To Obtain Meds), (Reported) Patient History Healthcare decision maker Rica Camacho Resuscitation status Full Code Advanced Directive on File No Past Medical/Surgical History Past Medical/Surgical History: (1) CO2 retention (2) COPD (chronic obstructive pulmonary disease) (3) Pneumonia (4) Renal failure (5) Obesity, morbid, BMI 50 or higher (6) Electrolyte imbalance (7) Fever (8) CHF (congestive heart failure) (9) Paroxysmal atrial fibrillation (10) HTN (hypertension) (11) Diabetes mellitus type II, controlled (12) Lower back pain (13) Renal failure (ARF), acute on chronic Physical Exam Physical Exam Narrative GENERAL: Alert, awake, and oriented. LUNGS: Decreased breath sounds bilaterally. HEART: S1 and S2 regular. ABDOMEN: Obese. EXTREMITIES: No cyanosis. No clubbing. NEURO: Weakness noted b/l. Last 24 Hour Vital Signs Date Time Temp Pulse Resp B/P (MAP) Pulse Ox O2 Delivery O2 Flow Rate FiO2 05/29/19 16:01 99.1 90 18 154/95 (114) 97 05/29/19 12:45 98.3 05/29/19 12:15 166/88 05/29/19 12:06 98.3 79 20 166/88 (114) 91 05/29/19 10:00 95 Nasal Cannula 3.0 32 05/29/19 09:00 Nasal Cannula 4.0 05/29/19 08:18 137/95 05/29/19 08:18 84 05/29/19 08:18 84 137/95 05/29/19 08:17 137/95 05/29/19 08:00 99.4 84 20 137/95 (109) 97 05/29/19 05:21 81 23 95 Facial 30 05/29/19 04:00 98.4 87 21 154/76 (102) 95 05/29/19 02:35 86 21 96 Facial 30 05/29/19 01:20 80 21 96 Facial 30 05/29/19 00:00 98.0 85 22 124/71 (88) 96 05/28/19 22:32 84 30 97 Facial 30 05/28/19 21:43 87 150/92 05/28/19 20:31 94 Nasal Cannula 3.0 32 05/28/19 20:00 98.2 87 18 150/74 (99) 95 05/28/19 17:05 161/94 05/28/19 17:04 161/94 Intake and Output 05/28/19 05/29/19 19:00 07:00 Intake Total 1200 ml 800 ml Output Total 1300 ml Balance 1200 ml -500 ml Intake Oral 800 ml Other 1200 ml Output Urine Total 1300 ml # Bowel Movements 1 Height (Feet): 5 Height (Inches): 10.00 Weight (Pounds): 439 Medications Current Medications Medications (Trade) Dose Ordered Sig/David Route PRN Reason Start Time Stop Time Status Last Admin Dose Admin Acetaminophen (Tylenol) 650 mg Q6H PRN ORAL Mild Pain/Temp > 100.5 05/19/19 18:00 06/04/19 11:59 05/22/19 08:50 Acetaminophen/ Hydrocodone Bitart ([place] 10/325) 1 tab Q6H PRN ORAL Severe Pain (Pain Scale 7-10) 05/24/19 20:30 05/31/19 20:29 05/29/19 12:15 Acetaminophen/ Hydrocodone Bitart ([place] 5/325) 1 tab Q6H PRN ORAL moderate pain 05/24/19 20:30 05/31/19 20:29 05/28/19 00:07 Apixaban (Eliquis) 5 mg BID ORAL 05/19/19 18:00 06/08/19 23:14 05/29/19 08:18 Atorvastatin Calcium (Lipitor) 40 mg BEDTIME ORAL 05/19/19 21:00 06/04/19 20:59 05/28/19 21:43 Carvedilol (Coreg) 25 mg Q12HR ORAL 05/19/19 21:00 06/08/19 20:59 05/29/19 08:18 Clonidine HCl (Catapres TTS-3) 1 patch QWEEK TDERMAL 05/27/19 12:00 06/26/19 11:59 05/27/19 12:00 Clonidine HCl (Catapres Tab) 0.1 mg Q4H PRN ORAL For High Blood Pressure 05/27/19 11:00 06/09/19 17:59 05/28/19 17:04 Digoxin (Lanoxin) 0.125 mg DAILY ORAL 05/20/19 09:00 06/09/19 08:59 05/29/19 08:18 Docusate Sodium (Colace) 100 mg THREE TIMES A DAY ORAL 05/19/19 18:00 06/05/19 12:59 05/29/19 12:15 Ferrous Sulfate (Feosol) 325 mg THREE TIMES A DAY ORAL 05/19/19 18:00 06/07/19 17:59 05/29/19 12:14 Fluticasone Propionate (Flonase) 1 spray TWICE A DAY NASAL 05/19/19 18:00 06/13/19 17:59 05/29/19 08:24 Gabapentin (Neurontin) 300 mg THREE TIMES A DAY ORAL 05/19/19 18:00 06/05/19 08:59 05/29/19 12:14 Hydralazine HCl (Apresoline) 75 mg THREE TIMES A DAY ORAL 05/27/19 13:00 06/18/19 14:29 05/29/19 12:15 Irbesartan (Avapro) 300 mg DAILY ORAL 05/27/19 09:00 06/26/19 08:59 05/29/19 08:17 Oxycodone HCl (Roxicodone) 5 mg Q6H PRN ORAL For Pain 05/28/19 07:00 06/04/19 06:59 05/28/19 22:40 Pantoprazole (Protonix) 40 mg EVERY 12 HOURS ORAL 05/19/19 21:00 06/05/19 20:59 05/29/19 08:18 Assessment/Plan Assessment/Plan: (1) Lumbar DDD (2) Lumbar Spondylosis (3) Morbid obesity Patient to be continued on Oxycodone and [place]. We will start Morphine 1mg IV Q4H PRN severe pain D/w Dr. Stack and he concurred. Osito Sultana May 29, 2019 16:38
[2019-05-29] MEDS ORDERED: HYDROcodone/Acetamin 10/325 tab ORAL PRN (16:45)
[2019-05-29] MEDS ORDERED: oxyCODONE 5mg IR tab ORAL PRN (16:45)
[2019-05-29] MEDS: Morphine Sulfate 2mg/ml Inj(IV/IM USE ONLY) IVP PRN ×2 (18:07→22:46)
--- NOTE | 2019-05-29 19:03 | NUR ---
HAND-OFF: Report given to VEE. Addendum: 05/29/19 at 1921 by ADAIR MALAGON LVN ERROR
--- NOTE | 2019-05-29 19:21 | NUR ---
HAND-OFF: Report given to Tesfaye.
--- NOTE | 2019-05-29 19:40 | NUR ---
NURSE NOTES: Patient is alert and oriented x 4, verbally responsive. Breathing On NC 2L. No acute distress noted. BIPAP @ bedside. IV noted in left forearm, patent and intact. Bed in the low and locked position. Call light within reach. Will continue to follow plan of care.
[2019-05-29] MEDS: Atorvastatin 20mg tab ORAL SCH (20:44)
--- NOTE | 2019-05-29 21:11 | NUR ---
RESPIRATORY NOTE: Pt placed on BiPAP for nightly use. Pt now on BiPAP /, back up rate 14, 30%. Pt on a Facial mask, skin intact, no redness/breakdowns noted. Pt refuses to wear foam tape/gel, explained pros & cons, but pt still refuses to wear. Pt alert/awake, follows commands. B/S silviano. clear/diminished, nonproductive cough. BiPAP plugged into red outlet, alarms on & audible. Pt resting comfortably, no distress noted. Will continue plan of care.
[2019-05-30] VITALS: BP 147/89
[2019-05-30 04:00] VITALS: BP 164/89
[2019-05-30] MEDS: Morphine Sulfate 2mg/ml Inj(IV/IM USE ONLY) IVP PRN ×3 (05:45→23:59)
--- NOTE | 2019-05-30 05:49 | NUR ---
NURSE NOTES: Administered Clonidine 0.1mg prn for BP 164/89. Will recheck BP.
[2019-05-30 06:52] VITALS: BP 145/80
--- NOTE | 2019-05-30 07:38 | NUR ---
HAND-OFF: Report given to BONILLA Castro.
[2019-05-30 08:00] VITALS: BP 149/86
[2019-05-30] MEDS: Docusate 100mg cap ORAL SCH ×3 (08:25→17:02)
[2019-05-30] MEDS: HydrALAZINE 50mg tab ORAL SCH ×3 (08:25→17:02)
[2019-05-30] MEDS: Carvedilol 25mg Tab ORAL SCH ×2 (08:25→21:00)
[2019-05-30] MEDS: Eliquis 5mg tablet ORAL SCH ×2 (08:26→17:02)
[2019-05-30] MEDS: Irbesartan 150mg tablet ORAL SCH (08:28)
[2019-05-30] MEDS: Digoxin 0.125mg tab ORAL SCH (08:29)
[2019-05-30] MEDS: Flonase Nasal Inhaler 16gm NASAL SCH ×3 (08:30→18:00)
--- NOTE | 2019-05-30 08:53 | General Progress Note ---
Assessment/Plan Assessment/Plan: (1) Lumbar DDD (2) Lumbar Spondylosis (3) Morbid obesity Patient to be continued on Morphine, Oxycodone and [place]. D/w Dr. Stack and he concurred. Subjective Date patient seen: May 30, 2019 Time patient seen: 08:00 - am Allergies: Coded Allergies: RIVAROXABAN (Verified Allergy, Unknown, 04/05/19) Subjective REVIEW OF SYSTEMS: Denies rash, fever, chills at this time, sweating, dizziness, drowsiness, blurred vision, sore throat, change in weight. No nausea, vomiting, diarrhea, or blood in the stool or urine. No dysuria. He is complaining of low back pain. SUBJECTIVE: Patient is in bed and reports that his pain has been tolerated on the Morphine having 3 doses in the last 24hrs. No new complaints at this time. Objective Last 24 Hour Vital Signs Date Time Temp Pulse Resp B/P (MAP) Pulse Ox O2 Delivery O2 Flow Rate FiO2 05/30/19 08:29 88 05/30/19 08:28 149/86 05/30/19 08:25 149/86 05/30/19 08:25 88 149/86 05/30/19 07:41 90 26 95 Facial 30 05/30/19 07:41 95 Bi-Pap 30 05/30/19 06:52 145/80 (101) 05/30/19 05:45 164/89 05/30/19 05:16 88 23 94 Facial 30 05/30/19 04:00 99.0 94 21 164/89 (114) 95 05/30/19 03:28 84 21 95 Facial 30 05/30/19 01:28 90 27 95 Facial 30 05/30/19 00:00 98.4 94 19 147/89 (108) 95 05/29/19 23:36 83 19 95 Facial 30 05/29/19 22:39 98.3 90 34 131/70 (90) 94 05/29/19 21:09 92 34 94 Facial 30 05/29/19 21:00 Nasal Cannula 4.0 05/29/19 20:43 93 168/96 05/29/19 20:00 98.3 93 18 168/96 (120) 95 05/29/19 19:42 95 Nasal Cannula 3.0 32 05/29/19 18:37 99.1 05/29/19 17:06 154/95 05/29/19 16:01 99.1 90 18 154/95 (114) 97 05/29/19 12:45 98.3 05/29/19 12:15 166/88 05/29/19 12:06 98.3 79 20 166/88 (114) 91 05/29/19 10:00 95 Nasal Cannula 3.0 32 05/29/19 09:00 Nasal Cannula 4.0 Intake and Output 05/29/19 05/30/19 19:00 07:00 Intake Total 600 ml 1440 ml Output Total 1300 ml Balance 600 ml 140 ml Intake Oral 600 ml 240 ml Other 1200 ml Output Urine Total 1300 ml # Voids 3 1 # Bowel Movements 1 2 Height (Feet): 5 Height (Inches): 10.00 Weight (Pounds): 439 Objective GENERAL: Alert, awake, and oriented. LUNGS: Decreased breath sounds bilaterally. HEART: S1 and S2 regular. ABDOMEN: Obese. EXTREMITIES: No cyanosis. No clubbing. NEURO: No changes. Osito Sultana May 30, 2019 08:53
--- NOTE | 2019-05-30 08:54 | General Progress Note ---
Assessment/Plan Assessment/Plan: S: I am feeling ok O: seems comfortable. exertional sob with minimal activity. Ambulating in the room with assistance. BIPAP at bed side Physical Exam General Appearance: alert, GCS 15, obese, Chronically Ill Head: normocephalic Eyes: bilateral eye PERRL, ENT: TMs + canals normal, uvula midline Neck: full range of motion Respiratory: lungs clear, decreased breath sounds Cardiovascular #1: edema - 1+ Edema Gastrointestinal: normal inspection, normal bowel sounds, non tender Musculoskeletal: normal inspection Neurologic: alert, motor strength/tone normal, clinical research physician III-XII nml as tested, oriented x3 Psychiatric: normal inspection Skin: other - Bilateral scaly rash to the lower extremities Labs and Meds: reviewed and reconciled, Assessment/Plan: 1. Acute on chronic COPD (chronic obstructive pulmonary disease) exacerbation 3. Morbid obesity 4. HTN 5. Multiple joint OA 6. Afib 7. NATASHA 8. Refusal of Care 9. ARF : improved Plan: start iron supplement optimise BP medication Disposition to SNF C/w NI-ventilation notes from CM reviewed Titration of BP meds in progress Notes from pain management reviewed Subjective Allergies: Coded Allergies: RIVAROXABAN (Verified Allergy, Unknown, 04/05/19) Objective Last 24 Hour Vital Signs Date Time Temp Pulse Resp B/P (MAP) Pulse Ox O2 Delivery O2 Flow Rate FiO2 05/30/19 08:29 88 05/30/19 08:28 149/86 05/30/19 08:25 149/86 05/30/19 08:25 88 149/86 05/30/19 07:41 90 26 95 Facial 30 05/30/19 07:41 95 Bi-Pap 30 05/30/19 06:52 145/80 (101) 05/30/19 05:45 164/89 05/30/19 05:16 88 23 94 Facial 30 05/30/19 04:00 99.0 94 21 164/89 (114) 95 05/30/19 03:28 84 21 95 Facial 30 05/30/19 01:28 90 27 95 Facial 30 05/30/19 00:00 98.4 94 19 147/89 (108) 95 05/29/19 23:36 83 19 95 Facial 30 05/29/19 22:39 98.3 90 34 131/70 (90) 94 05/29/19 21:09 92 34 94 Facial 30 05/29/19 21:00 Nasal Cannula 4.0 05/29/19 20:43 93 168/96 05/29/19 20:00 98.3 93 18 168/96 (120) 95 05/29/19 19:42 95 Nasal Cannula 3.0 32 05/29/19 18:37 99.1 05/29/19 17:06 154/95 05/29/19 16:01 99.1 90 18 154/95 (114) 97 05/29/19 12:45 98.3 05/29/19 12:15 166/88 05/29/19 12:06 98.3 79 20 166/88 (114) 91 05/29/19 10:00 95 Nasal Cannula 3.0 32 05/29/19 09:00 Nasal Cannula 4.0 Intake and Output 05/29/19 05/30/19 19:00 07:00 Intake Total 600 ml 1440 ml Output Total 1300 ml Balance 600 ml 140 ml Intake Oral 600 ml 240 ml Other 1200 ml Output Urine Total 1300 ml # Voids 3 1 # Bowel Movements 1 2 Height (Feet): 5 Height (Inches): 10.00 Weight (Pounds): 439 Desirae Haro MD May 30, 2019 08:54
--- NOTE | 2019-05-30 10:20 | NUR ---
NURSE NOTES: Patient IV was leaking. PRN morphine was scanned but not given. Total medication wasted and recorded in [facility] as medication wrapper was already opened. Spoke to Kassidy from pharmacy.
[2019-05-30 12:00] VITALS: BP 140/90
--- NOTE | 2019-05-30 15:07 | Nephrology Progress Note ---
Assessment/Plan Problem List: (1) Renal failure (2) Obesity, morbid, BMI 50 or higher (3) COPD (chronic obstructive pulmonary disease) (4) Electrolyte imbalance Assessment (1) Hypokalemia (2) CHF (congestive heart failure) (3) Renal failure (4) Obesity, morbid, BMI 50 or higher (5) CO2 retention (6) COPD (chronic obstructive pulmonary disease) elevated Cr likely due to diuresis Obesity , NATASHA AT fib with FVR HTN Congestive heart failure, likely diastolic dysfunction. EF 60% Recurrent NSVT. No syncope. Hypertension. Morbid obesity. COPD. Lipidemia. Plan adjust BP meds per order K supplement as needed DC DIamox stop NSAIDs UA Monitor Cr rising Monitor lytes check B12 and Folic acid Diamox PO as needed per orders per cardio and pulmonary taper steroids as possible Subjective ROS Limited/Unobtainable: No Constitutional: Reports: malaise, weakness Objective Objective Last 24 Hour Vital Signs Date Time Temp Pulse Resp B/P (MAP) Pulse Ox O2 Delivery O2 Flow Rate FiO2 05/30/19 14:00 81 22 95 Facial 30 05/30/19 12:12 140/90 05/30/19 12:00 98.8 93 19 140/90 (107) 95 05/30/19 10:49 98.1 05/30/19 09:38 86 24 96 Facial 30 05/30/19 08:29 88 05/30/19 08:28 149/86 05/30/19 08:25 149/86 05/30/19 08:25 88 149/86 05/30/19 08:00 98.1 88 19 149/86 (107) 93 05/30/19 07:41 90 26 95 Facial 30 05/30/19 07:41 95 Bi-Pap 30 05/30/19 06:52 145/80 (101) 05/30/19 05:45 164/89 05/30/19 05:16 88 23 94 Facial 30 05/30/19 04:00 99.0 94 21 164/89 (114) 95 05/30/19 03:28 84 21 95 Facial 30 05/30/19 01:28 90 27 95 Facial 30 05/30/19 00:00 98.4 94 19 147/89 (108) 95 05/29/19 23:36 83 19 95 Facial 30 05/29/19 22:39 98.3 90 34 131/70 (90) 94 05/29/19 21:09 92 34 94 Facial 30 05/29/19 21:00 Nasal Cannula 4.0 05/29/19 20:43 93 168/96 05/29/19 20:00 98.3 93 18 168/96 (120) 95 05/29/19 19:42 95 Nasal Cannula 3.0 32 05/29/19 17:06 154/95 05/29/19 16:01 99.1 90 18 154/95 (114) 97 Intake and Output 05/29/19 05/30/19 19:00 07:00 Intake Total 600 ml 1440 ml Output Total 1300 ml Balance 600 ml 140 ml Intake Oral 600 ml 240 ml Other 1200 ml Output Urine Total 1300 ml # Voids 3 1 # Bowel Movements 1 2 Height (Feet): 5 Height (Inches): 10.00 Weight (Pounds): 439 General Appearance: no apparent distress EENT: other - on BIPAP Cardiovascular: tachycardia Respiratory/Chest: decreased breath sounds Abdomen: distended Objective no change Bebeto Yin MD May 30, 2019 15:07
[2019-05-30 16:00] VITALS: BP 152/83
--- NOTE | 2019-05-30 16:32 | NUR ---
CASE MANAGEMENT: REVIEW 05/29/2019 SI: COPD . HTN . CHF 98.3 79 20 166/88 91% NC/3L IS:HYDRALAZINE PO TID CLONIDINE PATCH AVAPRO PO QD DIGOXIN PO QD COREG PO Q12 HR ELIQUIS 5MG PO BID COLACE 100MG PO TID IV MORPHINE SULFATE Q4HR/PRN MED/SURG STATUS DCP: PATIENT IS FROM HOME . SEEKING SNF PLACEMENT CASE MANAGEMENT: REVIEW 05/30/2019 SI: COPD . HTN . CHF 98.1 88 19 149/86 93% NC/3L IS:HYDRALAZINE PO TID CLONIDINE PATCH AVAPRO PO QD DIGOXIN PO QD COREG PO Q12 HR ELIQUIS 5MG PO BID COLACE 100MG PO TID IV MORPHINE SULFATE Q4HR/PRN MED/SURG STATUS DCP: PATIENT IS FROM HOME . SEEKING SNF PLACEMENT
--- NOTE | 2019-05-30 19:05 | NUR ---
HAND-OFF: Report given to
--- NOTE | 2019-05-30 19:10 | NUR ---
NURSE NOTES: Received patient in bed, sitting on the bedside. Awake, A/O x4. BiPAP on. Patient denies pain at this time. No IV site in place at this time. Will attempt to start a new line.
[2019-05-30] MEDS: Atorvastatin 20mg tab ORAL SCH (21:00)
--- NOTE | 2019-05-30 21:38 | NUR ---
NURSE NOTES: Patient refuses 21:00 medication without first getting an IV line inserted for IV morphine. Four attempts done to start the IV without success. Offered the patient PO pain medication but patient still refuses as he strictly wants IV morphine. Will ask for someone else to try IV line.
[2019-05-31] VITALS: BP 170/104
[2019-05-31 04:00] VITALS: BP 164/100
[2019-05-31] MEDS: Morphine Sulfate 2mg/ml Inj(IV/IM USE ONLY) IVP PRN ×2 (04:43→08:49)
--- NOTE | 2019-05-31 07:28 | NUR ---
HAND-OFF: Report given to Laisha THAO.
--- NOTE | 2019-05-31 07:29 | NUR ---
NURSE NOTES: Received report from Festus/RN, Patient is awake, eating breakfast on bed. On 2L nasal canula, no acute distress/SOB noted. IV on left upper arm, patent, no bleeding or infiltration noted. Bed in low position and locked, Bed alarm is on, side-rails up x3. Call light within reach, encouraged to use call light when needed. Will continue plan of care.
[2019-05-31 08:00] VITALS: BP 178/102
[2019-05-31] MEDS: Digoxin 0.125mg tab ORAL SCH (08:46)
[2019-05-31] MEDS: Docusate 100mg cap ORAL SCH ×3 (08:47→17:59)
[2019-05-31] MEDS: Irbesartan 150mg tablet ORAL SCH (08:47)
[2019-05-31] MEDS: HydrALAZINE 50mg tab ORAL SCH ×3 (08:47→17:59)
[2019-05-31] MEDS: Carvedilol 25mg Tab ORAL SCH (08:47)
[2019-05-31] MEDS: Eliquis 5mg tablet ORAL SCH ×2 (08:48→17:59)
[2019-05-31] MEDS: Flonase Nasal Inhaler 16gm NASAL SCH ×3 (08:48→18:00)
--- NOTE | 2019-05-31 09:04 | General Progress Note ---
Assessment/Plan Assessment/Plan: (1) Lumbar DDD (2) Lumbar Spondylosis (3) Morbid obesity Patient to be continued on Morphine decreased to 1mg IV Q6H PRN, Oxycodone and [place]. D/w Dr. Stack and he concurred. Subjective Date patient seen: May 31, 2019 Time patient seen: 08:00 - am Allergies: Coded Allergies: RIVAROXABAN (Verified Allergy, Unknown, 04/05/19) Subjective REVIEW OF SYSTEMS: Denies rash, fever, chills at this time, sweating, dizziness, drowsiness, blurred vision, sore throat, change in weight. No nausea, vomiting, diarrhea, or blood in the stool or urine. No dysuria. He is complaining of low back pain. SUBJECTIVE: Patient continues to c/o pain which has been tolerated on the Morphine. The pain has been severe and is exacerbated due to swelling of his testicles. This was d/w nurse who will inform the special shopper. I d/w patient about changing of the Morphine interval to Q6H as needed. He seems to understand. Objective Last 24 Hour Vital Signs Date Time Temp Pulse Resp B/P (MAP) Pulse Ox O2 Delivery O2 Flow Rate FiO2 05/31/19 08:47 178/102 05/31/19 08:47 178/102 05/31/19 08:47 82 178/102 05/31/19 08:46 82 05/31/19 08:09 95 Bi-Pap 30 05/31/19 08:00 97.6 82 20 178/102 (127) 95 05/31/19 04:55 81 24 96 Facial 30 05/31/19 04:00 98.9 102 20 164/100 (121) 97 05/31/19 02:15 83 28 95 Facial 30 05/31/19 00:57 170/104 05/31/19 00:00 98.6 97 20 170/104 (126) 95 05/30/19 21:00 Nasal Cannula 4.0 05/30/19 21:00 94 05/30/19 19:45 67 18 96 Nasal Cannula 3.0 32 05/30/19 19:45 84 32 96 Facial 30 05/30/19 19:45 95 Bi-Pap 30 05/30/19 17:02 152/83 05/30/19 16:00 99.1 98 19 152/83 (106) 93 05/30/19 14:00 81 22 95 Facial 30 05/30/19 12:12 140/90 05/30/19 12:00 98.8 93 19 140/90 (107) 95 05/30/19 10:49 98.1 05/30/19 09:38 86 24 96 Facial 30 Intake and Output 05/30/19 05/31/19 19:00 07:00 Intake Total 600 ml 400 ml Balance 600 ml 400 ml Intake Oral 600 ml Other 400 ml # Voids 3 4 # Bowel Movements 1 Height (Feet): 5 Height (Inches): 10.00 Weight (Pounds): 439 Objective GENERAL: Alert, awake, and oriented. LUNGS: Decreased breath sounds bilaterally. HEART: S1 and S2 regular. ABDOMEN: Obese. EXTREMITIES: No cyanosis. No clubbing. NEURO: No changes. Osito Sultana May 31, 2019 09:04
[2019-05-31] MEDS ORDERED: Morphine Sulfate 2mg/ml Inj(IV/IM USE ONLY) IVP PRN (09:06)
--- NOTE | 2019-05-31 10:54 | Pulmonology Progress Note ---
Assessment/Plan Assessment/Plan Congestive heart failure Hypertension Chronic Obstructive Pulmonary Disease Obesity Obstructive Sleep Apnea Hypertension Diabetes Plan - spot dose diuresis prn - monitor off steroids - HHN - O2 PRN - noninvasive ventilation PRN/QHS - ISS - PPX -d/c planning Subjective ROS Limited/Unobtainable: Yes Interval Events: using noninvasive ventilation. Sleeping currently. Awaiting placement Allergies: Coded Allergies: RIVAROXABAN (Verified Allergy, Unknown, 04/05/19) All Systems: reviewed and negative except above Objective Last 24 Hour Vital Signs Date Time Temp Pulse Resp B/P (MAP) Pulse Ox O2 Delivery O2 Flow Rate FiO2 05/31/19 09:20 83 38 94 Facial 30 05/31/19 08:47 178/102 05/31/19 08:47 178/102 05/31/19 08:47 82 178/102 05/31/19 08:46 82 05/31/19 08:09 95 Bi-Pap 30 05/31/19 08:00 97.6 82 20 178/102 (127) 95 05/31/19 07:02 86 27 95 Facial 30 05/31/19 04:55 81 24 96 Facial 30 05/31/19 04:00 98.9 102 20 164/100 (121) 97 05/31/19 02:15 83 28 95 Facial 30 05/31/19 00:57 170/104 05/31/19 00:00 98.6 97 20 170/104 (126) 95 05/30/19 21:00 Nasal Cannula 4.0 05/30/19 21:00 94 05/30/19 19:45 67 18 96 Nasal Cannula 3.0 32 05/30/19 19:45 84 32 96 Facial 30 05/30/19 19:45 95 Bi-Pap 30 05/30/19 17:02 152/83 05/30/19 16:00 99.1 98 19 152/83 (106) 93 05/30/19 14:00 81 22 95 Facial 30 05/30/19 12:12 140/90 05/30/19 12:00 98.8 93 19 140/90 (107) 95 Intake and Output 05/30/19 05/31/19 18:59 06:59 Intake Total 600 ml 400 ml Balance 600 ml 400 ml Intake Oral 600 ml Other 400 ml # Voids 3 4 # Bowel Movements 1 General Appearance: no acute distress HEENT: mucous membranes moist Respiratory/Chest: lungs clear Cardiovascular: normal rate Abdomen: soft, non tender Extremities: other - chronic LE edema Skin: no rash Current Medications Medications (Trade) Dose Ordered Sig/David Route PRN Reason Start Time Stop Time Status Last Admin Dose Admin Acetaminophen (Tylenol) 650 mg Q6H PRN ORAL Mild Pain/Temp > 100.5 05/19/19 18:00 06/04/19 11:59 05/22/19 08:50 Acetaminophen/ Hydrocodone Bitart ([place]ler 10/325) 1 tab Q6H PRN ORAL Mild Pain (Pain Scale 1-3) 05/29/19 16:45 06/05/19 16:44 05/31/19 03:06 Apixaban (Eliquis) 5 mg BID ORAL 05/19/19 18:00 06/08/19 23:14 05/31/19 08:48 Atorvastatin Calcium (Lipitor) 40 mg BEDTIME ORAL 05/19/19 21:00 06/04/19 20:59 05/29/19 20:44 Carvedilol (Coreg) 25 mg Q12HR ORAL 05/19/19 21:00 06/08/19 20:59 05/31/19 08:47 Clonidine HCl (Catapres TTS-3) 1 patch QWEEK TDERMAL 05/27/19 12:00 06/26/19 11:59 05/27/19 12:00 Clonidine HCl (Catapres Tab) 0.1 mg Q4H PRN ORAL For High Blood Pressure 05/27/19 11:00 06/09/19 17:59 05/31/19 00:57 Digoxin (Lanoxin) 0.125 mg DAILY ORAL 05/20/19 09:00 06/09/19 08:59 05/31/19 08:46 Docusate Sodium (Colace) 100 mg THREE TIMES A DAY ORAL 05/19/19 18:00 06/05/19 12:59 05/31/19 08:47 Ferrous Sulfate (Feosol) 325 mg THREE TIMES A DAY ORAL 05/19/19 18:00 06/07/19 17:59 05/31/19 08:47 Fluticasone Propionate (Flonase) 1 spray TWICE A DAY NASAL 05/19/19 18:00 06/13/19 17:59 05/30/19 08:30 Gabapentin (Neurontin) 300 mg THREE TIMES A DAY ORAL 05/19/19 18:00 06/05/19 08:59 05/31/19 08:47 Hydralazine HCl (Apresoline) 75 mg THREE TIMES A DAY ORAL 05/27/19 13:00 06/18/19 14:29 05/31/19 08:47 Irbesartan (Avapro) 300 mg DAILY ORAL 05/27/19 09:00 06/26/19 08:59 05/31/19 08:47 Morphine Sulfate (Morphine Sulfate) 1 mg Q6H PRN IVP Severe Pain (Pain Scale 7-10) 05/31/19 09:06 06/07/19 09:05 Oxycodone HCl (Roxicodone) 5 mg Q6H PRN ORAL Moderate Pain (Pain Scale 4-6) 05/29/19 16:45 06/05/19 16:44 Pantoprazole (Protonix) 40 mg EVERY 12 HOURS ORAL 05/19/19 21:00 06/05/19 20:59 05/31/19 08:47 Jass Hartman MD May 31, 2019 10:54
--- NOTE | 2019-05-31 11:40 | NUR ---
PT NOTE Attempted to see patient for PT treatment. Patient declining to participate with PT, states he is comfortable now and does not want to cause increased pain. Laisha RN notified, will re-attempt later as schedule permits.
--- NOTE | 2019-05-31 11:41 | Nephrology Progress Note ---
Assessment/Plan Problem List: (1) Renal failure (2) Obesity, morbid, BMI 50 or higher (3) COPD (chronic obstructive pulmonary disease) (4) Electrolyte imbalance Assessment (1) Hypokalemia (2) CHF (congestive heart failure) (3) Renal failure (4) Obesity, morbid, BMI 50 or higher (5) CO2 retention (6) COPD (chronic obstructive pulmonary disease) elevated Cr likely due to diuresis Obesity , NATASHA AT fib with FVR HTN Congestive heart failure, likely diastolic dysfunction. EF 60% Recurrent NSVT. No syncope. Hypertension. Morbid obesity. COPD. Lipidemia. Plan adjust BP meds per order K supplement as needed DC DIamox stop NSAIDs UA Monitor Cr rising Monitor lytes check B12 and Folic acid Diamox PO as needed per orders per cardio and pulmonary taper steroids as possible Subjective ROS Limited/Unobtainable: No Constitutional: Reports: malaise Objective Objective Last 24 Hour Vital Signs Date Time Temp Pulse Resp B/P (MAP) Pulse Ox O2 Delivery O2 Flow Rate FiO2 05/31/19 11:34 76 23 95 Facial 30 05/31/19 09:20 83 38 94 Facial 30 05/31/19 08:47 178/102 05/31/19 08:47 178/102 05/31/19 08:47 82 178/102 05/31/19 08:46 82 05/31/19 08:09 95 Bi-Pap 30 05/31/19 08:00 97.6 82 20 178/102 (127) 95 05/31/19 07:02 86 27 95 Facial 30 05/31/19 04:55 81 24 96 Facial 30 05/31/19 04:00 98.9 102 20 164/100 (121) 97 05/31/19 02:15 83 28 95 Facial 30 05/31/19 00:57 170/104 05/31/19 00:00 98.6 97 20 170/104 (126) 95 05/30/19 21:00 Nasal Cannula 4.0 05/30/19 21:00 94 05/30/19 19:45 67 18 96 Nasal Cannula 3.0 32 05/30/19 19:45 84 32 96 Facial 30 05/30/19 19:45 95 Bi-Pap 30 05/30/19 17:02 152/83 05/30/19 16:00 99.1 98 19 152/83 (106) 93 05/30/19 14:00 81 22 95 Facial 30 05/30/19 12:12 140/90 05/30/19 12:00 98.8 93 19 140/90 (107) 95 Intake and Output 05/30/19 05/31/19 19:00 07:00 Intake Total 600 ml 400 ml Balance 600 ml 400 ml Intake Oral 600 ml Other 400 ml # Voids 3 4 # Bowel Movements 1 Height (Feet): 5 Height (Inches): 10.00 Weight (Pounds): 439 General Appearance: no apparent distress EENT: other - BIPAP Cardiovascular: normal rate Respiratory/Chest: decreased breath sounds Abdomen: distended Objective no change Bebeto Yin MD May 31, 2019 11:41
--- NOTE | 2019-05-31 11:49 | General Progress Note ---
Assessment/Plan Assessment/Plan: S: I am feeling ban O: seems comfortable. exertional sob with minimal activity. Ambulating in the room with assistance. 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 Acute on chronic COPD (chronic obstructive pulmonary disease) exacerbation 3. Morbid obesity 4. HTN 5. Multiple joint OA 6. Afib 7. NATASHA 8. Refusal of Care 9. ARF : improved Plan: start iron supplement optimise BP medication Disposition to [facility] care C/w NI-ventilation notes from CM reviewed Current BP medication Notes from pain management reviewed Subjective Allergies: Coded Allergies: RIVAROXABAN (Verified Allergy, Unknown, 04/05/19) Objective Last 24 Hour Vital Signs Date Time Temp Pulse Resp B/P (MAP) Pulse Ox O2 Delivery O2 Flow Rate FiO2 05/31/19 11:34 76 23 95 Facial 30 05/31/19 09:20 83 38 94 Facial 30 05/31/19 08:47 178/102 05/31/19 08:47 178/102 05/31/19 08:47 82 178/102 05/31/19 08:46 82 05/31/19 08:09 95 Bi-Pap 30 05/31/19 08:00 97.6 82 20 178/102 (127) 95 05/31/19 07:02 86 27 95 Facial 30 05/31/19 04:55 81 24 96 Facial 30 05/31/19 04:00 98.9 102 20 164/100 (121) 97 05/31/19 02:15 83 28 95 Facial 30 05/31/19 00:57 170/104 05/31/19 00:00 98.6 97 20 170/104 (126) 95 05/30/19 21:00 Nasal Cannula 4.0 05/30/19 21:00 94 05/30/19 19:45 67 18 96 Nasal Cannula 3.0 32 05/30/19 19:45 84 32 96 Facial 30 05/30/19 19:45 95 Bi-Pap 30 05/30/19 17:02 152/83 05/30/19 16:00 99.1 98 19 152/83 (106) 93 05/30/19 14:00 81 22 95 Facial 30 05/30/19 12:12 140/90 05/30/19 12:00 98.8 93 19 140/90 (107) 95 Intake and Output 05/30/19 05/31/19 19:00 07:00 Intake Total 600 ml 400 ml Balance 600 ml 400 ml Intake Oral 600 ml Other 400 ml # Voids 3 4 # Bowel Movements 1 Height (Feet): 5 Height (Inches): 10.00 Weight (Pounds): 439 Desirae Haro MD May 31, 2019 11:49
[2019-05-31 12:00] VITALS: BP 152/80
--- NOTE | 2019-05-31 13:44 | NUR ---
*-* DISCHARGE PLANNING*-* PATIENT HAS BEEN REFERRED TO: [facility] P: [phone] F: [phone] Addendum: 05/31/19 at 1643 by RADHA RIDLEY CM PATIENT HAS BEEN ACCEPTED
[2019-05-31 16:00] VITALS: BP 154/94
--- NOTE | 2019-05-31 17:02 | NUR ---
LABEL FUSER TENDER NOTES SPOKE WITH PATIENT MADE AWARE OF DC STATUS THIS AM. PT ACCEPTED TO [facility] CONTACT INFORMATION GIVEN TO PT. PT REPORTS HE HAS IHSS WITH A COUSIN HIS CAREGIVER NUMBER OF HOURS UNKNOWN. ENCOURAGED PT TO HAVE IHSS WORKER ASSIST HIM NEEDED. PT VERBALIZED UNDERSTANDING OF TEACHING. PLACED A CALL TO [facility] MESSAGE LEFT FOR NCM TO RETURN CALL TO SCHEDULE OUTPT FOLLOW UP APPOINTMENT WITH PT'S PRIMARY MD. INFORMED PT TO ANSWER PHONE SO HE CAN RETRIEVE HIS OUTPATIENT APPOINTMENT. LABEL FUSER TENDER TO BE AVAILABLE FOR ANY ISSUES OR CONCERNS.
[2019-05-31 17:59] VITALS: BP 154/94
--- NOTE | 2019-05-31 18:40 | NUR ---
NURSE NOTES: [facility] called, and stated, patient will get picked up by [facility] after 30min.
--- NOTE | 2019-05-31 19:00 | NUR ---
HAND-OFF: Report given to Festus/RN, Patient in stable condition. Endorsed plan of care.
--- NOTE | 2019-05-31 19:15 | NUR ---
NURSE NOTES: Received patient in bed. Awake, A/O x4. BiPAP in place. Patient denies pain at this time. Laying in high-fowlers, 1/2 side rails up. IV in left upper arm and right AC noted with no redness or swelling.
--- NOTE | 2019-05-31 19:40 | NUR ---
NURSE NOTES: Patient was picked up by ambulance. Discharge papers given to patient. IV sites removed. Patient is on NC with ambulance's portable O2 tank.
--- NOTE | 2019-06-02 09:46 | Discharge Summary ---
Discharge Summary Discharge Summary _ DATE OF ADMISSION: 05/05/2019 DATE OF DISCHARGE: 05/31/2019 DISCHARGED BY: Dr. Haro REASON FOR ADMISSION: 48 years old male with past medical history of COPD, diabetes mellitus, hypertension, morbidly obese, presented with generalized weakness and difficulty breathing. Patient at home oxygen dependent. Patient reported swelling and pain in both legs. Upon evaluation patient required supplemental oxygen. Pulse oximetry on 4 L of oxygen was 95%. Laboratory work-up revealed no leukocytosis ,hemoglobin 11.2, hematocrit 36. Platelet count 240. D-dimer 1.25. Potassium 3.1, sodium 149. BUN 12, creatinine 1.4. Glucose 116. Stable LFTs. Troponin negative, pro BNP 1026. EKG revealed sinus rhythm with T wave inversion in 1 aVL, unchanged from prior admission. Albumin 2.7. Chest x-ray demonstrated interstitial congestion , slightly increased from prior exam 2 weeks ago. Suspected left pleural effusion. Venous duplex bilateral lower extremity revealed no evidence to suggest acute DVT. ABG revealed hypercapnia with PCO2 of 60, which was done on 2 L of oxygen via nasal cannula. In emergency department patient received IV Lasix , started on BiPAP . Potassium was replaced , and patient was admitted to monitored floor for further management. CONSULTANTS: fluorescent lighting model maker Dr. Lawrence pulmonary Dr. Hartman ID specialist Dr. Jackson electric motor tester assembler Dr. Yin pain specialist Dr. Stack [facility] COURSE: Patient initially admitted to monitored floor. Echocardiogram demonstrated normal left ventricular chamber size, systolic function and wall motion to the extent visualized. The left ventricular ejection fraction estimated to be grossly normal. Moderate left ventricular hypertrophy. Right ventricular systolic pressure of 37 , consistent with mild pulmonary hypertension. Patient demonstrated nonsustained ventricular tachycardia , given normal ejection fraction patient was continued on Coreg. Patient also demonstrated paroxysmal atrial fibrillation. Patient was continued on digoxin , Coreg and Eliquis in face of CHADS- VASC score of 2. Patient had hypertension stage II. Dose of irbesartan was uptitrated to 300 mg daily. Hydralazine continued. Clonidine was on board as needed for blood pressure spikes. Per cardiology, dyspnea was likely due to acute on chronic congestive heart failure due to combination of hypertension, chronic kidney disease and obesity. Patient also had obesity hypoventilation syndrome. Gentle diuresis and beta-vimal continued. Supplemental oxygen provided and titrated to keep oximetry above 92%. Pulmonary toilet with bronchodilator provided. BiPAP was on standby at nighttime and as needed. Patient was followed -up with ABG and chest x-ray. Patient was clsoely monitored off steroids. Patient was on Diamox . Gentle diuresis provided. GI prophylaxis provided. Blood cultures were negative. Sputum culture was negative. Repeated blood cultures were negative . Sputum culture revealed Brea. No leukocytosis, no fevers. Patient received IV Zosyn for 8 days empirically. ID specialist recommended to monitor patient off antibiotics. Renal parameters and electrolytes were closely monitored, electrolytes corrected as needed. Acute renal failure was possibly due to diuresis. All nonsteroidal anti-inflammatory stopped. Electrolytes corrected as needed. Prior to discharge creatinine down to 1.1. Blood sugar was managed with sliding-scale of insulin. Hemoglobin A1c -6.5, at goal. Pain management was addressed as per pain specialist recommendation Patient clinically stabilized and was ready for discharge home with home health services. FINAL DIAGNOSES: Acute on chronic congestive heart failure, diastolic (due to combination of hypertension, chronic kidney disease and obesity) COPD exacerbation Possible pneumonia Acute renal failure -resolved Obstructive sleep apnea Obesity hypoventilation syndrome Morbid obesity Hypertension stage II Paroxysmal atrial fibrillation History of NSVT, no syncope Osteoarthritis , multiple joints Lumbar DDD Lumbar spondylosis Diabetes mellitus Electrolyte imbalance DISCHARGE MEDICATIONS: See Medication Reconciliation list. DISCHARGE INSTRUCTIONS: Patient was discharged home with home health services. Follow up with primary care provider in one week. I have been assigned to dictate discharge summary for this account. I was not involved in the patient's management. Liat Griffin NP Jun 02, 2019 09:46
== END 2019-05-31 19:40 | disposition home health service (06) | DRG 291 ==
LOC: EDBD 14:24 → CANBEDREQ 14:42 → EDBEDREQ 15:02 → EMR 15:57 → 2W 17:30 → EDBEDREQ 17:42 → 2W 19:06 → 2E 05-07 10:54 → 4E 05-15 20:15 → 2E 05-15 21:15 → 4E 05-19 17:22
DX: I13.0 Hypertensive heart and chronic kidney disease with heart failure and stage 1 through stage 4 chronic kidney disease, or unspecified chronic kidney disease (principal); J18.9 Pneumonia, unspecified organism; I50.33 Acute on chronic diastolic (congestive) heart failure; J44.1 Chronic obstructive pulmonary disease with (acute) exacerbation; E66.2 Morbid (severe) obesity with alveolar hypoventilation; Z68.44 Body mass index [BMI] 60.0-69.9, adult; I47.2 Ventricular tachycardia; J44.0 Chronic obstructive pulmonary disease with (acute) lower respiratory infection; E87.2 Acidosis; N17.9 Acute kidney failure, unspecified; E11.22 Type 2 diabetes mellitus with diabetic chronic kidney disease; E87.8 Other disorders of electrolyte and fluid balance, not elsewhere classified; I27.20 Pulmonary hypertension, unspecified; Z99.81 Dependence on supplemental oxygen; I48.0 Paroxysmal atrial fibrillation; E87.6 Hypokalemia; T50.1X5A Adverse effect of loop [high-ceiling] diuretics, initial encounter; Y92.230 Patient room in hospital as the place of occurrence of the external cause; N18.9 Chronic kidney disease, unspecified; G47.33 Obstructive sleep apnea (adult) (pediatric); M15.9 Polyosteoarthritis, unspecified; M51.36 Other intervertebral disc degeneration, lumbar region; M47.896 Other spondylosis, lumbar region; R21 Rash and other nonspecific skin eruption; E78.5 Hyperlipidemia, unspecified
CPT/HCPCS: 36415; 36600; 71045; 80048; 80053; 80061; 80162; 80202; 80307; 81001; 82270; 82607; 82728; 82746; 82803; 82962; 82977; 83036; 83540; 83550; 83735; 83880; 84100; 84300; 84443; 84484; 84550; 85025; 85379; 85610; 85730; 86140; 87040; 87070; 87205; 93005; 93306; 93970; 94640; 94660; 94664; 96374; 99285; J3490; J7620; J8499

== ENCOUNTER 2019-05-31 22:13 | Inpatient (IN) | payer OTHER ==
[~2019-05-31] VITALS: Ht 177.8 cm; Wt 194.1 kg
[~2019-05-31 22:13] MED LIST changes: +COREG12.5 MG ORAL; +UNOBMED
[2019-05-31 22:20] VITALS: BP 188/140
[2019-05-31] MEDS ORDERED: Morphine Sulfate 2mg/ml Inj(IV/IM USE ONLY) IVP ONE (22:30)
[2019-05-31] MEDS ORDERED: Nitroglycerin 2% oint pkt TOPIC ONE (22:30)
[2019-05-31 23:07] LABS: BASOPHILS % (AUTO) 1.4 % (0.0-2.0); EOSINOPHILS % (AUTO) 4.5 % (0.0-3.0); HEMATOCRIT 39.4 % (42.0-52.0); HEMOGLOBIN 12.9 G/DL (14.2-18.0); LYMPHOCYTES % (AUTO) 16.6 % (20.0-45.0); MEAN CORPUSCULAR VOLUME 78 FL (80-99); MONOCYTES % (AUTO) 7.1 % (1.0-10.0); NEUTROPHILS % (AUTO) 70.4 % (45.0-75.0); PLATELET COUNT 155 K/UL (150-450); RED BLOOD COUNT 5.07 M/UL (4.70-6.10); RED CELL DISTRIBUTION WIDTH 16.3 % (11.6-14.8); WHITE BLOOD COUNT 10.5 K/UL (4.8-10.8)
[2019-05-31 23:15] LABS: ANION GAP 5 mmol/L (5-15); BLOOD UREA NITROGEN 10 mg/dL (7-18); CALCIUM 8.6 MG/DL (8.5-10.1); CARBON DIOXIDE 35 MMOL/L (21-32); CHLORIDE 105 MMOL/L (98-107); CREATININE 1.1 MG/DL (0.55-1.30); POTASSIUM 5.6 MMOL/L (3.5-5.1); SODIUM 145 MMOL/L (136-145)
--- NOTE | 2019-05-31 23:20 | Emergency Room Report ---
History of Present Illness General Chief Complaint: General Complaint Source: Patient, EMS Present Illness HPI Patient was discharged from our hospital earlier. He was not given Lasix at discharge. He has increased swelling of his genitals and lower extremities with pain there. He denies any fevers or chills. There is no nausea, vomiting or diarrhea. There is no dysuria. The patient denies productive cough. He does have orthopnea. He is on oxygen where he lives. The pain is rated 8/10 and constant in his lower extremities and genital region. The pain does not radiate.. No fevers, chills, sore throat, chest pain, palpitations, nausea, vomiting, diarrhea, dysuria, abdominal pain, anxiety, visual changes, dizziness, headache. In the last progress note from today these were his assessments: 1. Acute on chronic COPD (chronic obstructive pulmonary disease) exacerbation 3. Morbid obesity 4. HTN 5. Multiple joint OA 6. Afib 7. NATASHA 8. Refusal of Care 9. ARF : improved Allergies: Coded Allergies: RIVAROXABAN (Verified Allergy, Unknown, 04/05/19) Patient History Past Medical History: see triage record Social History: Denies: smoking Social History Narrative Born in [place] Reviewed Nursing Documentation: PMH: Agreed; PSxH: Agreed Nursing Documentation-PMH Hx Cardiac Problems: Yes Hx Hypertension: Yes Hx COPD: Yes Hx Diabetes: Yes Hx Cancer: No Hx Gastrointestinal Problems: No Hx Neurological Problems: No Hx Cerebrovascular Accident: Yes - jennifer Review of Systems All Other Systems: negative except mentioned in HPI Physical Exam Vital Signs Date Time Temp Pulse Resp B/P (MAP) Pulse Ox O2 Delivery O2 Flow Rate FiO2 05/31/19 22:14 99.9 109 20 188/140 (156) 94 Nasal Cannula 4.0 Sp02 EP Interpretation: reviewed, abnormal - Interpreted as low by me General Appearance: no apparent distress, obese, Chronically Ill Head: normocephalic, atraumatic Eyes: bilateral eye normal inspection, bilateral eye PERRL, bilateral eye EOMI ENT: moist mucus membranes Neck: supple Respiratory: lungs clear, normal breath sounds, decreased breath sounds Cardiovascular #1: regular rate, rhythm, edema - Brawny edema bilateral lower extremities Cardiovascular #2: 2+ radial (R) Gastrointestinal: normal inspection, normal bowel sounds, non tender, no mass, non-distended, overweight Genitourinary: other - Genital edema Musculoskeletal: back normal, normal range of motion, no calf tenderness, gait/ station normal Neurologic: alert, oriented x3, grossly normal Psychiatric: depressed affect Skin: warm/dry, other - Venous disease Medical Decision Making Diagnostic Impression: Primary Impression: CHF (congestive heart failure) Qualified Codes: I50.9 - Heart failure, unspecified Additional Impression: Edema Qualified Codes: R60.0 - Localized edema ER Course Patient presents with lower extremity and genital pain with dyspnea and hypoxia. Differential includes right sided failure, DVT, renal failure, exacerbation of CHF and COPD amongst others. Evaluation with EKG, chest x-ray and labs. Patient will give a dose of Lasix. Patient also given nitroglycerin paste and morphine. Patient placed on traffic monitor specialist. EKG without injury. Chest x-ray poor inspiration and increased sanders bilaterally. Normal white count. CMP essentially normal. Elevated BNP. Negative troponin. Patient diuresing. Still with pain and lower extremities. Due to the excessive edema and difficulty ambulating patient admitted to medical floor for diuresis and continued treatment. Laboratory Tests Test 05/31/19 22:28 05/31/19 23:20 06/01/19 06:50 White Blood Count 10.5 K/UL (4.8-10.8) 9.3 K/UL (4.8-10.8) Red Blood Count 5.07 M/UL (4.70-6.10) 4.43 M/UL (4.70-6.10) L Hemoglobin 12.9 G/DL (14.2-18.0) L 11.2 G/DL (14.2-18.0) L Hematocrit 39.4 % (42.0-52.0) L 34.9 % (42.0-52.0) L Mean Corpuscular Volume 78 FL (80-99) L 79 FL (80-99) L Mean Corpuscular Hemoglobin 25.4 PG (27.0-31.0) L 25.3 PG (27.0-31.0) L Mean Corpuscular Hemoglobin Concent 32.8 G/DL (32.0-36.0) 32.0 G/DL (32.0-36.0) Red Cell Distribution Width 16.3 % (11.6-14.8) H 16.1 % (11.6-14.8) H Platelet Count 155 K/UL (150-450) 162 K/UL (150-450) Mean Platelet Volume 11.0 FL (6.5-10.1) H 10.5 FL (6.5-10.1) H Neutrophils (%) (Auto) 70.4 % (45.0-75.0) 65.3 % (45.0-75.0) Lymphocytes (%) (Auto) 16.6 % (20.0-45.0) L 19.3 % (20.0-45.0) L Monocytes (%) (Auto) 7.1 % (1.0-10.0) 9.1 % (1.0-10.0) Eosinophils (%) (Auto) 4.5 % (0.0-3.0) H 4.6 % (0.0-3.0) H Basophils (%) (Auto) 1.4 % (0.0-2.0) 1.7 % (0.0-2.0) Prothrombin Time 10.6 SEC (9.30-11.50) Prothrombin Time INR 1.0 (0.9-1.1) Activated Partial Thromboplast Time 28 SEC (23-33) Sodium Level 145 MMOL/L (136-145) 147 MMOL/L (136-145) H Potassium Level 5.6 MMOL/L (3.5-5.1) H 3.3 MMOL/L (3.5-5.1) L Chloride Level 105 MMOL/L (98-107) 106 MMOL/L (98-107) Carbon Dioxide Level 35 MMOL/L (21-32) H 37 MMOL/L (21-32) H Anion Gap 5 mmol/L (5-15) 4 mmol/L (5-15) L Blood Urea Nitrogen 10 mg/dL (7-18) 10 mg/dL (7-18) Creatinine 1.1 MG/DL (0.55-1.30) 1.1 MG/DL (0.55-1.30) Estimate Glomerular Filtration Rate > 60 mL/min (>60) > 60 mL/min (>60) Glucose Level 106 MG/DL (74-106) 103 MG/DL (74-106) Calcium Level 8.6 MG/DL (8.5-10.1) 8.3 MG/DL (8.5-10.1) L Total Bilirubin 0.7 MG/DL (0.2-1.0) Aspartate Amino Transferase (AST) 31 U/L (15-37) Alanine Aminotransferase (ALT) 15 U/L (12-78) Alkaline Phosphatase 59 U/L (46-116) Total Creatine Kinase 327 U/L (26-308) H Troponin I 0.039 ng/mL (0.000-0.056) Pro-B-Type Natriuretic Peptide 557 pg/mL (0-125) H Total Protein 7.4 G/DL (6.4-8.2) Albumin 3.2 G/DL (3.4-5.0) L Globulin 4.2 g/dL Albumin/Globulin Ratio 0.8 (1.0-2.7) L Urine Color Pale yellow Urine Appearance Clear Urine pH 5 (4.5-8.0) Urine Specific [place] 1.015 (1.005-1.035) Urine Protein Negative (NEGATIVE) Urine Glucose (UA) Negative (NEGATIVE) Urine Ketones Negative (NEGATIVE) Urine Blood Negative (NEGATIVE) Urine Nitrite Negative (NEGATIVE) Urine Bilirubin Negative (NEGATIVE) Urine Urobilinogen Normal MG/DL (0.0-1.0) Urine Leukocyte Esterase Negative (NEGATIVE) EKG Diagnostic Results Rate: normal Rhythm: NSR, other - PACs ST Segments: no acute changes Rhythm Strip Diag. Results EP Interpretation: yes Rhythm: NSR, no PVC's, other - PACs rate 100 Chest X-Ray Diagnostic Results Chest X-Ray Diagnostic Results : Chest X-Ray Ordered: Yes # of Views/Limited/Complete: 1 View Indication: Other EP Interpretation: Yes Interpretation: no effusion, no pneumothorax, other - Poor inspiration and increased sanders bilaterally Impression: Other Electronically Signed by: Electronically signed by Mahesh Vazquez MD Last Vital Signs Date Time Temp Pulse Resp B/P (MAP) Pulse Ox O2 Delivery O2 Flow Rate FiO2 06/01/19 13:37 151/78 06/01/19 12:00 97.0 80 20 95 06/01/19 12:00 3.0 06/01/19 09:00 Nasal Cannula 06/01/19 02:45 99 Status: improved Disposition: ADMITTED INPATIENT Condition: Serious Referrals: [facility],REFERRING (PCP) Mahesh Vazquez MD May 31, 2019 23:20
[2019-05-31 23:26] LABS: ALANINE AMINOTRANSFERASE 15 U/L (12-78); ALBUMIN 3.2 G/DL (3.4-5.0); ALBUMIN/GLOBULIN RATIO 0.8 (1.0-2.7); ALKALINE PHOSPHATASE 59 U/L (46-116); ASPARTATE AMINO TRANSFERASE 31 U/L (15-37); BILIRUBIN,TOTAL 0.7 MG/DL (0.2-1.0); CREATINE KINASE 327 U/L (26-308)
[2019-05-31 23:47] LABS: APPEARANCE,URINE CLEAR; BILIRUBIN, URINE NEGATIVE (NEGATIVE); COLOR,URINE PALE YELLOW; GLUCOSE, URINE (UA) NEGATIVE (NEGATIVE); KETONES,URINE NEGATIVE (NEGATIVE); LEUKOCYTE ESTERASE ,URINE NEGATIVE (NEGATIVE); NITRITE,URINE NEGATIVE (NEGATIVE); PH,URINE 5 (4.5-8.0); UROBILINOGEN,URINE NORMAL MG/DL (0.0-1.0)
[2019-05-31 23:50] LABS: PROTEIN,URINE NEGATIVE (NEGATIVE)
[2019-06-01] VITALS (8 sets, daily range): BP systolic 128–166; BP diastolic 73–102
[2019-06-01 07:27] LABS: BASOPHILS % (AUTO) 1.7 % (0.0-2.0); EOSINOPHILS % (AUTO) 4.6 % (0.0-3.0); HEMATOCRIT 34.9 % (42.0-52.0); HEMOGLOBIN 11.2 G/DL (14.2-18.0); LYMPHOCYTES % (AUTO) 19.3 % (20.0-45.0); MEAN CORPUSCULAR VOLUME 79 FL (80-99); MONOCYTES % (AUTO) 9.1 % (1.0-10.0); NEUTROPHILS % (AUTO) 65.3 % (45.0-75.0); PLATELET COUNT 162 K/UL (150-450); RED BLOOD COUNT 4.43 M/UL (4.70-6.10); RED CELL DISTRIBUTION WIDTH 16.1 % (11.6-14.8); WHITE BLOOD COUNT 9.3 K/UL (4.8-10.8)
[2019-06-01 07:35] LABS: ANION GAP 4 mmol/L (5-15); BLOOD UREA NITROGEN 10 mg/dL (7-18); CALCIUM 8.3 MG/DL (8.5-10.1); CARBON DIOXIDE 37 MMOL/L (21-32); CHLORIDE 106 MMOL/L (98-107); CREATININE 1.1 MG/DL (0.55-1.30); POTASSIUM 3.3 MMOL/L (3.5-5.1); SODIUM 147 MMOL/L (136-145)
--- NOTE | 2019-06-01 08:58 | Consultation ---
History of Present Illness General Date patient seen: Jun 01, 2019 Time patient seen: 08:15 - am Chief Complaint: Back pain Referring physician: Estrellita Reason for Consultation: Pain Management Present Illness HPI REVIEW OF SYSTEMS: Denies rash, fever, chills at this time, sweating, dizziness, drowsiness, blurred vision, sore throat, change in weight. No nausea, vomiting, diarrhea, or blood in the stool or urine. No dysuria. He is complaining of low back pain. SUBJECTIVE: Patient is a known patient from recent hospital admission admitted under the care of Dr. Haro due to CHF. Complaining of Low back pain and severe swelling due to CHF was discharged with Lasix yesterday but reports that when he got home was unable to take of himself and due to this returned to the hospital. We were consulted so patient has adequate pain control while her in the hospital. Allergies: Coded Allergies: RIVAROXABAN (Verified Allergy, Unknown, 04/05/19) Medication History Scheduled Amlodipine Besylate* (Amlodipine Besylate*), 10 MG ORAL DAILY, (Reported) Aspirin* (Aspirin*), 81 MG ORAL DAILY, (Reported) Atorvastatin Calcium* (Atorvastatin Calcium*), 40 MG ORAL BEDTIME, (Reported) Carvedilol (Coreg), 12.5 MG ORAL EVERY 12 HOURS Gabapentin* (Gabapentin*), 300 MG ORAL BID, (Reported) Miscellaneous Medications Unable to Obtain Medications (Unable To Obtain Meds), (Reported) Patient History Healthcare decision maker Resuscitation status Full Code Advanced Directive on File Past Medical/Surgical History Past Medical/Surgical History: (1) CHF (congestive heart failure) (2) Edema (3) Lower back pain (4) Renal failure (ARF), acute on chronic (5) Diabetes mellitus type II, controlled (6) HTN (hypertension) (7) Paroxysmal atrial fibrillation (8) Fever (9) Electrolyte imbalance (10) Obesity, morbid, BMI 50 or higher (11) Pneumonia (12) COPD (chronic obstructive pulmonary disease) Physical Exam Physical Exam Narrative GENERAL: Alert, awake, and oriented. LUNGS: Decreased breath sounds bilaterally. HEART: S1 and S2 regular. ABDOMEN: Obese. EXTREMITIES: No cyanosis. No clubbing. NEURO: Weakness noted b/l. Last 24 Hour Vital Signs Date Time Temp Pulse Resp B/P (MAP) Pulse Ox O2 Delivery O2 Flow Rate FiO2 1/29/20 04:22 Nasal Cannula 3.0 06/01/19 04:00 98.4 99 22 153/98 (116) 96 06/01/19 04:00 96 06/01/19 03:56 3.0 06/01/19 03:23 99 06/01/19 02:45 98.3 109 23 135/90 96 Nasal Cannula 4.0 99 06/01/19 02:45 98.3 109 23 135/90 96 Nasal Cannula 4.0 99 06/01/19 02:08 98.1 115 19 155/96 98 Nasal Cannula 4.0 99 06/01/19 00:10 98.5 111 19 160/92 97 Nasal Cannula 4.0 99 05/31/19 23:14 99.8 05/31/19 22:45 188/140 05/31/19 22:20 98.5 109 20 188/140 94 Nasal Cannula 4.0 05/31/19 22:20 109 20 Nasal Cannula 4.0 99 05/31/19 22:14 99.9 109 20 188/140 (156) 94 Nasal Cannula 4.0 Intake and Output 05/31/19 06/01/19 18:59 06:59 Output Total 400 ml Balance -400 ml Output Urine Total 400 ml # Voids 3 Laboratory Tests Test 05/31/19 22:28 05/31/19 23:20 06/01/19 06:50 White Blood Count 10.5 K/UL (4.8-10.8) 9.3 K/UL (4.8-10.8) Red Blood Count 5.07 M/UL (4.70-6.10) 4.43 M/UL (4.70-6.10) L Hemoglobin 12.9 G/DL (14.2-18.0) L 11.2 G/DL (14.2-18.0) L Hematocrit 39.4 % (42.0-52.0) L 34.9 % (42.0-52.0) L Mean Corpuscular Volume 78 FL (80-99) L 79 FL (80-99) L Mean Corpuscular Hemoglobin 25.4 PG (27.0-31.0) L 25.3 PG (27.0-31.0) L Mean Corpuscular Hemoglobin Concent 32.8 G/DL (32.0-36.0) 32.0 G/DL (32.0-36.0) Red Cell Distribution Width 16.3 % (11.6-14.8) H 16.1 % (11.6-14.8) H Platelet Count 155 K/UL (150-450) 162 K/UL (150-450) Mean Platelet Volume 11.0 FL (6.5-10.1) H 10.5 FL (6.5-10.1) H Neutrophils (%) (Auto) 70.4 % (45.0-75.0) 65.3 % (45.0-75.0) Lymphocytes (%) (Auto) 16.6 % (20.0-45.0) L 19.3 % (20.0-45.0) L Monocytes (%) (Auto) 7.1 % (1.0-10.0) 9.1 % (1.0-10.0) Eosinophils (%) (Auto) 4.5 % (0.0-3.0) H 4.6 % (0.0-3.0) H Basophils (%) (Auto) 1.4 % (0.0-2.0) 1.7 % (0.0-2.0) Prothrombin Time 10.6 SEC (9.30-11.50) Prothromb Time International Ratio 1.0 (0.9-1.1) Activated Partial Thromboplast Time 28 SEC (23-33) Sodium Level 145 MMOL/L (136-145) 147 MMOL/L (136-145) H Potassium Level 5.6 MMOL/L (3.5-5.1) H 3.3 MMOL/L (3.5-5.1) L Chloride Level 105 MMOL/L (98-107) 106 MMOL/L (98-107) Carbon Dioxide Level 35 MMOL/L (21-32) H 37 MMOL/L (21-32) H Anion Gap 5 mmol/L (5-15) 4 mmol/L (5-15) L Blood Urea Nitrogen 10 mg/dL (7-18) 10 mg/dL (7-18) Creatinine 1.1 MG/DL (0.55-1.30) 1.1 MG/DL (0.55-1.30) Estimat Glomerular Filtration Rate > 60 mL/min (>60) > 60 mL/min (>60) Glucose Level 106 MG/DL (74-106) 103 MG/DL (74-106) Calcium Level 8.6 MG/DL (8.5-10.1) 8.3 MG/DL (8.5-10.1) L Total Bilirubin 0.7 MG/DL (0.2-1.0) Aspartate Amino Transf (AST/SGOT) 31 U/L (15-37) Alanine Aminotransferase (ALT/SGPT) 15 U/L (12-78) Alkaline Phosphatase 59 U/L (46-116) Total Creatine Kinase 327 U/L (26-308) H Troponin I 0.039 ng/mL (0.000-0.056) Pro-B-Type Natriuretic Peptide 557 pg/mL (0-125) H Total Protein 7.4 G/DL (6.4-8.2) Albumin 3.2 G/DL (3.4-5.0) L Globulin 4.2 g/dL Albumin/Globulin Ratio 0.8 (1.0-2.7) L Urine Color Pale yellow Urine Appearance Clear Urine pH 5 (4.5-8.0) Urine Specific [place] 1.015 (1.005-1.035) Urine Protein Negative (NEGATIVE) Urine Glucose (UA) Negative (NEGATIVE) Urine Ketones Negative (NEGATIVE) Urine Blood Negative (NEGATIVE) Urine Nitrite Negative (NEGATIVE) Urine Bilirubin Negative (NEGATIVE) Urine Urobilinogen Normal MG/DL (0.0-1.0) Urine Leukocyte Esterase Negative (NEGATIVE) Microbiology Date/Time Source Procedure Growth Status 06/01/19 01:55 Rectum Received Height (Feet): 5 Height (Inches): 10.00 Weight (Pounds): 433 Medications Current Medications Medications (Trade) Dose Ordered Sig/David Route PRN Reason Start Time Stop Time Status Last Admin Dose Admin Acetaminophen (Tylenol) 500 mg Q4H PRN ORAL Mild Pain/Temp > 100.5 06/01/19 05:00 07/01/19 04:59 Assessment/Plan Assessment/Plan: (1) Lumbar DDD (2) Lumbar Spondylosis (3) Morbid obesity Patient to be started on Morphine 1mg IV Q6H PRN severe pain and [place] 10/325mg PO 1 tab Q4H PRN moderate pain. D/w Dr. Stack and he concurred. Osito Sultana Jun 01, 2019 08:58
[2019-06-01] MEDS ORDERED: Morphine Sulfate 2mg/ml Inj(IV/IM USE ONLY) IVP PRN (09:00)
[2019-06-01] MEDS: Docusate 100mg cap ORAL SCH ×3 (10:11→18:16)
--- NOTE | 2019-06-01 10:15 | Diagnostic Imaging Report ---
Indication: Shortness of breath Technique: One view of the chest Comparison: 05/20/2019 Findings: Body habitus limits evaluation. Inspiration is suboptimal. There is resultant crowding of bronchovascular markings. The heart is enlarged. There is questionable mild interstitial congestion. No definite infiltrates. No significant interim change Impression: Limited exam, as described Questionable mild interstitial congestion
--- NOTE | 2019-06-01 12:17 | Consultation ---
Consult Note Consult Note Discharged and readmitted yesterday ER: Patient was discharged from our hospital earlier. He was not given Lasix at discharge. He has increased swelling of his genitals and lower extremities with pain there. He denies any fevers or chills. There is no nausea, vomiting or diarrhea. There is no dysuria. The patient denies productive cough. He does have orthopnea. He is on oxygen where he lives. The pain is rated 8/10 and constant. No fevers, chills, sore throat, chest pain, palpitations, nausea, vomiting, diarrhea, dysuria, abdominal pain, shortness of breath, joint pain, rashes, depression, anxiety, visual changes, dizziness, headache. In the last progress note from today these were his assessments: 1. Acute on chronic COPD (chronic obstructive pulmonary disease) exacerbation 3. Morbid obesity 4. HTN 5. Multiple joint OA 6. Afib 7. NATASHA 8. Refusal of Care 9. ARF : improved Allergies: RIVAROXABAN (Verified Allergy, Unknown, 04/05/19) Hx Cardiac Problems: Yes Hx Hypertension: Yes Hx COPD: Yes Hx Diabetes: Yes Hx Cerebrovascular Accident: Yes - jennifer examined on BIPAP Assessment/Plan (1) Hypokalemia (2) CHF (congestive heart failure) (3) s/p Renal failure (4) Obesity, morbid, BMI 50 or higher (5) CO2 retention (6) COPD (chronic obstructive pulmonary disease) Obesity , NATASHA AT fib with FVR Congestive heart failure, likely diastolic dysfunction. EF 60% Recurrent NSVT. No syncope. Hypertension. Morbid obesity. COPD. Lipidemia. Plan optimize cardiac and pulm status Keep BP in check Monitor lytes Diamox PO as needed per orders per cardio and pulmonary Bebeto Yin MD Jun 01, 2019 12:17
[2019-06-01] MEDS: HydrALAZINE 25mg tab ORAL SCH ×2 (13:31→21:18)
--- NOTE | 2019-06-01 13:58 | Cardiac Electrophysiology PN ---
Subjective Subjective [id number] Objective Last 24 Hour Vital Signs Date Time Temp Pulse Resp B/P (MAP) Pulse Ox O2 Delivery O2 Flow Rate FiO2 06/01/19 13:37 151/78 06/01/19 13:31 151/78 06/01/19 09:00 Nasal Cannula 3.0 06/01/19 08:00 105 06/01/19 08:00 3.0 06/01/19 08:00 97.7 105 20 141/84 (103) 95 06/01/19 04:22 Nasal Cannula 3.0 06/01/19 04:00 98.4 99 22 153/98 (116) 96 06/01/19 04:00 96 06/01/19 03:56 3.0 06/01/19 03:23 99 06/01/19 02:45 98.3 109 23 135/90 96 Nasal Cannula 4.0 99 06/01/19 02:45 98.3 109 23 135/90 96 Nasal Cannula 4.0 99 06/01/19 02:08 98.1 115 19 155/96 98 Nasal Cannula 4.0 99 06/01/19 00:10 98.5 111 19 160/92 97 Nasal Cannula 4.0 99 05/31/19 23:14 99.8 05/31/19 22:45 188/140 05/31/19 22:20 98.5 109 20 188/140 94 Nasal Cannula 4.0 05/31/19 22:20 109 20 Nasal Cannula 4.0 99 05/31/19 22:14 99.9 109 20 188/140 (156) 94 Nasal Cannula 4.0 Intake and Output 05/31/19 06/01/19 19:00 07:00 Intake Total 140 ml Output Total 400 ml Balance -260 ml Intake Oral 140 ml Output Urine Total 400 ml # Voids 3 Laboratory Tests Test 05/31/19 22:28 05/31/19 23:20 06/01/19 06:50 White Blood Count 10.5 K/UL (4.8-10.8) 9.3 K/UL (4.8-10.8) Red Blood Count 5.07 M/UL (4.70-6.10) 4.43 M/UL (4.70-6.10) L Hemoglobin 12.9 G/DL (14.2-18.0) L 11.2 G/DL (14.2-18.0) L Hematocrit 39.4 % (42.0-52.0) L 34.9 % (42.0-52.0) L Mean Corpuscular Volume 78 FL (80-99) L 79 FL (80-99) L Mean Corpuscular Hemoglobin 25.4 PG (27.0-31.0) L 25.3 PG (27.0-31.0) L Mean Corpuscular Hemoglobin Concent 32.8 G/DL (32.0-36.0) 32.0 G/DL (32.0-36.0) Red Cell Distribution Width 16.3 % (11.6-14.8) H 16.1 % (11.6-14.8) H Platelet Count 155 K/UL (150-450) 162 K/UL (150-450) Mean Platelet Volume 11.0 FL (6.5-10.1) H 10.5 FL (6.5-10.1) H Neutrophils (%) (Auto) 70.4 % (45.0-75.0) 65.3 % (45.0-75.0) Lymphocytes (%) (Auto) 16.6 % (20.0-45.0) L 19.3 % (20.0-45.0) L Monocytes (%) (Auto) 7.1 % (1.0-10.0) 9.1 % (1.0-10.0) Eosinophils (%) (Auto) 4.5 % (0.0-3.0) H 4.6 % (0.0-3.0) H Basophils (%) (Auto) 1.4 % (0.0-2.0) 1.7 % (0.0-2.0) Prothrombin Time 10.6 SEC (9.30-11.50) Prothromb Time International Ratio 1.0 (0.9-1.1) Activated Partial Thromboplast Time 28 SEC (23-33) Sodium Level 145 MMOL/L (136-145) 147 MMOL/L (136-145) H Potassium Level 5.6 MMOL/L (3.5-5.1) H 3.3 MMOL/L (3.5-5.1) L Chloride Level 105 MMOL/L (98-107) 106 MMOL/L (98-107) Carbon Dioxide Level 35 MMOL/L (21-32) H 37 MMOL/L (21-32) H Anion Gap 5 mmol/L (5-15) 4 mmol/L (5-15) L Blood Urea Nitrogen 10 mg/dL (7-18) 10 mg/dL (7-18) Creatinine 1.1 MG/DL (0.55-1.30) 1.1 MG/DL (0.55-1.30) Estimat Glomerular Filtration Rate > 60 mL/min (>60) > 60 mL/min (>60) Glucose Level 106 MG/DL (74-106) 103 MG/DL (74-106) Calcium Level 8.6 MG/DL (8.5-10.1) 8.3 MG/DL (8.5-10.1) L Total Bilirubin 0.7 MG/DL (0.2-1.0) Aspartate Amino Transf (AST/SGOT) 31 U/L (15-37) Alanine Aminotransferase (ALT/SGPT) 15 U/L (12-78) Alkaline Phosphatase 59 U/L (46-116) Total Creatine Kinase 327 U/L (26-308) H Troponin I 0.039 ng/mL (0.000-0.056) Pro-B-Type Natriuretic Peptide 557 pg/mL (0-125) H Total Protein 7.4 G/DL (6.4-8.2) Albumin 3.2 G/DL (3.4-5.0) L Globulin 4.2 g/dL Albumin/Globulin Ratio 0.8 (1.0-2.7) L Urine Color Pale yellow Urine Appearance Clear Urine pH 5 (4.5-8.0) Urine Specific [place] 1.015 (1.005-1.035) Urine Protein Negative (NEGATIVE) Urine Glucose (UA) Negative (NEGATIVE) Urine Ketones Negative (NEGATIVE) Urine Blood Negative (NEGATIVE) Urine Nitrite Negative (NEGATIVE) Urine Bilirubin Negative (NEGATIVE) Urine Urobilinogen Normal MG/DL (0.0-1.0) Urine Leukocyte Esterase Negative (NEGATIVE) Microbiology Date/Time Source Procedure Growth Status 06/01/19 01:55 Rectum Received Sandor Doll MD Jun 01, 2019 13:58
--- NOTE | 2019-06-01 15:28 | History & Physical ---
History and Physical History & Physicial HPI Patient is a 48-year-old male who presents after increased generalized weakness and difficulty breathing within minutes after arrival to his home. He had prior history of COPD and [facility] inpatient care. He is normally on home oxygen and states that he normally has some swelling to both legs. Patient normally uses 2 L of oxygen via nasal cannula. He is unsure if he is having any fever. He reports having increased generalized body aches. Denies any increased cough. Allergies: Coded Allergies: RIVAROXABAN (Verified Allergy, Unknown, 04/05/19) Patient History Past Medical History: COPD, NATASHA HTN, morbid obesity, Afib, Nursing Documentation-H Past Medical History: No History, Except For Hx Cardiac Problems: Yes Hx Hypertension: Yes Hx COPD: Yes Hx Diabetes: Yes Hx Cancer: No Hx Gastrointestinal Problems: No Hx Neurological Problems: No Review of Systems All Other Systems: limited - Limited by poor historian Physical ExamVital Signs General Appearance: alert, GCS 15, obese, Chronically Ill Head: normocephalicEyes: bilateral eye PERRL ENT: TMs + canals normal, uvula midlineNeck: full range of motion Respiratory: lungs clear, decreased breath soundsCardiovascular #1: edema - 3 + Edema Gastrointestinal: normal inspection, normal bowel sounds, non tender Musculoskeletal: morbid obesity, 1-2 + piting edema in LE. Neurologic: alert, motor strength/tone normal, bottom buffer III-XII nml as tested, oriented [id number]: normal inspection Skin: other - Bilateral scaly rash to the lower extremities Assessment/Plan: 1. 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 Morbid obesity 4. HTN 5. Multiple joint OA 6. Afib 7. NATASHA 8. ARF : improved 10 . GI-DVT prophylaxia Plan: High risk for Re- admission in future SNIF placement will decrease the likely wallcae of readmission Will resume medication from prior admission Pulmonary, Cardiology and Nephrology consulted Comment: Patient care and it's challenges is discussed over the phone with Agronomy Technician and CM on May 31. Desirae Haro MD Jun 01, 2019 15:28
[2019-06-01] MEDS: oxyCODONE 5mg IR tab ORAL PRN (18:15)
[2019-06-01] MEDS: Eliquis 5mg tablet ORAL SCH (18:16)
[2019-06-01] MEDS: Carvedilol 25mg Tab ORAL SCH (20:41)
[2019-06-01] MEDS: Atorvastatin 20mg tab ORAL SCH (20:41)
--- NOTE | 2019-06-01 23:45 | Consultation ---
DATE OF CONSULTATION: 06/01/2019 CARDIOLOGY CONSULTATION CONSULTING PHYSICIAN: Sandor Doll M.D. REFERRING PHYSICIAN: Desirae Haro M.D. REASON FOR CONSULTATION: Exacerbation of congestive heart failure. HISTORY OF PRESENT ILLNESS: The patient with hypertension and paroxysmal atrial fibrillation as well as congestive heart failure and history of nonsustained ventricular tachycardia who was just recently discharged from the hospital. The patient was readmitted for worsening of his shortness of breath and lower extremity edema. A cardiology consultation was obtained for further evaluation. REVIEW OF SYSTEMS: Negative other than what is mentioned in the history of present illness. PAST MEDICAL HISTORY: As mentioned above. FAMILY HISTORY: Noncontributory. PHYSICAL EXAMINATION: VITAL SIGNS: Show blood pressure of 155/78, pulse is 100, respirations 18, and temperature 98. HEAD AND NECK: Shows positive JVD. LUNGS: Coarse rhonchi. CARDIOVASCULAR: Shows regular S1 and S2 with no gallop or murmur. ABDOMEN: Obese. EXTREMITIES: 2+ pitting edema. LABORATORY AND DIAGNOSTIC DATA: His echocardiogram on 04/06/2019 showed normal left ventricular systolic size and function. His labs show a white count of 9.2, hemoglobin 11.2, hematocrit 35, and platelet count of 162. Sodium 147, potassium 3.6, BUN of 10, and creatinine 1.1. Troponin is negative. ASSESSMENT AND PLAN: 1. Paroxysmal atrial fibrillation. His EKG shows sinus rhythm with frequent PACs. Continue the patient on digoxin 0.125 mg daily, Coreg 25 mg b.i.d., and Eliquis 5 mg b.i.d. 2. Congestive heart failure exacerbation with diastolic dysfunction and hypertensive heart disease. Start the patient on Lasix 80 mg IV b.i.d. and continue to follow the patient clinically. 3. Hypertension, on Avapro 300 mg daily, Coreg 25 b.i.d., hydralazine 75 b.i.d., clonidine patch weekly, and p.r.n. clonidine. 4. Exacerbation of obstructive sleep apnea. 5. COPD. Thank you very much for allowing me to participate in the care of this patient. Please do not hesitate to contact me if you have any questions regarding my evaluation. Sincerely, Sandor Doll M.D. DR: MARLO JOB#: [id number] CC:
[2019-06-02] MEDS: oxyCODONE 5mg IR tab ORAL PRN ×2 (00:23→13:13)
[2019-06-02] MEDS: Acetaminophen 500mg (ES) tab ORAL PRN (00:49)
[2019-06-02 04:00] VITALS: BP 130/67
[2019-06-02] MEDS: HydrALAZINE 25mg tab ORAL SCH ×3 (06:00→22:00)
[2019-06-02 07:31] LABS: BASOPHILS % (AUTO) 1.5 % (0.0-2.0); EOSINOPHILS % (AUTO) 5.5 % (0.0-3.0); HEMATOCRIT 34.8 % (42.0-52.0); HEMOGLOBIN 11.1 G/DL (14.2-18.0); LYMPHOCYTES % (AUTO) 21.8 % (20.0-45.0); MEAN CORPUSCULAR VOLUME 79 FL (80-99); MONOCYTES % (AUTO) 10.6 % (1.0-10.0); NEUTROPHILS % (AUTO) 60.7 % (45.0-75.0); PLATELET COUNT 180 K/UL (150-450); RED BLOOD COUNT 4.41 M/UL (4.70-6.10); WHITE BLOOD COUNT 9.9 K/UL (4.8-10.8)
[2019-06-02 07:59] VITALS: BP 153/89
[2019-06-02 08:01] LABS: ALANINE AMINOTRANSFERASE 15 U/L (12-78); ALBUMIN 3.1 G/DL (3.4-5.0); ALBUMIN/GLOBULIN RATIO 0.9 (1.0-2.7); ALKALINE PHOSPHATASE 54 U/L (46-116); ANION GAP 4 mmol/L (5-15); ASPARTATE AMINO TRANSFERASE 12 U/L (15-37); BILIRUBIN,TOTAL 0.4 MG/DL (0.2-1.0); BLOOD UREA NITROGEN 17 mg/dL (7-18); CALCIUM 8.3 MG/DL (8.5-10.1); CARBON DIOXIDE 38 MMOL/L (21-32); CHLORIDE 104 MMOL/L (98-107); CHOLESTEROL 112 MG/DL (< 200); CREATININE 1.3 MG/DL (0.55-1.30); FERRITIN 101 NG/ML (8-388); GAMMA GLUTAMYL TRANSPEPTIDASE 21 U/L (5-85); HDL CHOLESTEROL 38 MG/DL (40-60); PHOSPHORUS 4.7 MG/DL (2.5-4.9); POTASSIUM 3.4 MMOL/L (3.5-5.1); SODIUM 146 MMOL/L (136-145); TRIGLYCERIDES 60 MG/DL (30-150)
[2019-06-02] MEDS: Digoxin 0.125mg tab ORAL SCH (08:25)
[2019-06-02] MEDS: Irbesartan 150mg tablet ORAL SCH (08:25)
[2019-06-02] MEDS: Eliquis 5mg tablet ORAL SCH ×2 (08:26→17:29)
[2019-06-02] MEDS: Docusate 100mg cap ORAL SCH ×3 (08:26→17:29)
[2019-06-02] MEDS: Carvedilol 25mg Tab ORAL SCH ×2 (08:26→21:00)
[2019-06-02 08:32] LABS: % IRON SATURATION 10 % (15-50); IRON 20 ug/dL (50-175); TOTAL IRON BINDING CAPACITY 207 ug/dL (250-450)
--- NOTE | 2019-06-02 08:56 | Consultation ---
History of Present Illness General Date patient seen: Jun 02, 2019 Chief Complaint: General Complaint Referring physician: Estrellita Reason for Consultation: Shortness of breath Present Illness HPI 48 y/o w/ CHF, likely NATASHA, hypoventilation syndrome, possible COPD with recent hospitalization for shortness of breath initially treated with steroids and diuresis kept on BiPAP and discharged home, returned with increased shortness of breath immedicately after getting home. Back on BiPAP here. No fever or chills. Allergies: Coded Allergies: RIVAROXABAN (Verified Allergy, Unknown, 04/05/19) Medication History Scheduled Amlodipine Besylate* (Amlodipine Besylate*), 10 MG ORAL DAILY, (Reported) Aspirin* (Aspirin*), 81 MG ORAL DAILY, (Reported) Atorvastatin Calcium* (Atorvastatin Calcium*), 40 MG ORAL BEDTIME, (Reported) Carvedilol (Coreg), 12.5 MG ORAL EVERY 12 HOURS Gabapentin* (Gabapentin*), 300 MG ORAL BID, (Reported) Miscellaneous Medications Unable to Obtain Medications (Unable To Obtain Meds), (Reported) Patient History Limited by: medical condition Healthcare decision maker Resuscitation status Full Code Advanced Directive on File Past Medical/Surgical History Past Medical/Surgical History: (1) Renal failure (2) CO2 retention (3) COPD (chronic obstructive pulmonary disease) (4) Paroxysmal atrial fibrillation (5) HTN (hypertension) (6) Diabetes mellitus type II, controlled (7) CHF (congestive heart failure) Review of Systems All Other Systems: negative except mentioned in HPI Physical Exam General Appearance: no apparent distress HEENT: atraumatic Neck: supple Respiratory/Chest: lungs clear Cardiovascular/Chest: normal rate Abdomen: soft Extremities: trace edema Last 24 Hour Vital Signs Date Time Temp Pulse Resp B/P (MAP) Pulse Ox O2 Delivery O2 Flow Rate FiO2 06/02/19 08:26 99 153/89 06/02/19 08:25 99 06/02/19 08:25 153/89 06/02/19 07:59 98.2 99 21 153/89 (110) 94 06/02/19 07:45 93 06/02/19 05:29 99 21 96 Facial 35 06/02/19 04:00 98.8 68 20 130/67 (88) 95 06/02/19 04:00 105 06/02/19 00:53 98 26 95 Facial 35 06/02/19 00:00 98 06/01/19 23:35 100 18 97 Facial 35 06/01/19 21:18 160/102 06/01/19 21:00 Nasal Cannula 3.0 06/01/19 20:41 93 160/102 06/01/19 20:00 105 06/01/19 20:00 99.0 93 20 166/102 (123) 96 06/01/19 16:00 3.0 06/01/19 16:00 98.2 86 18 128/73 (91) 97 06/01/19 16:00 98 06/01/19 13:37 151/78 06/01/19 13:31 151/78 06/01/19 12:00 97.0 80 20 153/78 (103) 95 06/01/19 12:00 95 06/01/19 12:00 3.0 06/01/19 09:00 Nasal Cannula 3.0 Intake and Output 06/01/19 06/02/19 19:00 07:00 Intake Total 280 ml Output Total 1800 ml Balance -1520 ml Intake Oral 280 ml Output Urine Total 1800 ml # Voids 3 1 # Bowel Movements 1 1 Laboratory Tests Test 06/02/19 06:17 White Blood Count 9.9 K/UL (4.8-10.8) Red Blood Count 4.41 M/UL (4.70-6.10) L Hemoglobin 11.1 G/DL (14.2-18.0) L Hematocrit 34.8 % (42.0-52.0) L Mean Corpuscular Volume 79 FL (80-99) L Mean Corpuscular Hemoglobin 25.1 PG (27.0-31.0) L Mean Corpuscular Hemoglobin Concent 31.8 G/DL (32.0-36.0) L Red Cell Distribution Width 16.0 % (11.6-14.8) H Platelet Count 180 K/UL (150-450) Mean Platelet Volume 10.0 FL (6.5-10.1) Neutrophils (%) (Auto) 60.7 % (45.0-75.0) Lymphocytes (%) (Auto) 21.8 % (20.0-45.0) Monocytes (%) (Auto) 10.6 % (1.0-10.0) H Eosinophils (%) (Auto) 5.5 % (0.0-3.0) H Basophils (%) (Auto) 1.5 % (0.0-2.0) Sodium Level 146 MMOL/L (136-145) H Potassium Level 3.4 MMOL/L (3.5-5.1) L Chloride Level 104 MMOL/L (98-107) Carbon Dioxide Level 38 MMOL/L (21-32) H Anion Gap 4 mmol/L (5-15) L Blood Urea Nitrogen 17 mg/dL (7-18) Creatinine 1.3 MG/DL (0.55-1.30) Estimat Glomerular Filtration Rate > 60 mL/min (>60) Glucose Level 95 MG/DL (74-106) Uric Acid 5.4 MG/DL (2.6-7.2) Calcium Level 8.3 MG/DL (8.5-10.1) L Phosphorus Level 4.7 MG/DL (2.5-4.9) Magnesium Level 1.9 MG/DL (1.8-2.4) Iron Level 20 ug/dL (50-175) L Total Iron Binding Capacity 207 ug/dL (250-450) L Percent Iron Saturation 10 % (15-50) L Unsaturated Iron Binding 187 ug/dL (112-346) Ferritin 101 NG/ML (8-388) Total Bilirubin 0.4 MG/DL (0.2-1.0) Gamma Glutamyl Transpeptidase 21 U/L (5-85) Aspartate Amino Transf (AST/SGOT) 12 U/L (15-37) L Alanine Aminotransferase (ALT/SGPT) 15 U/L (12-78) Alkaline Phosphatase 54 U/L (46-116) Troponin I 0.032 ng/mL (0.000-0.056) C-Reactive Protein, Quantitative 6.3 mg/dL (0.00-0.90) H Pro-B-Type Natriuretic Peptide 399 pg/mL (0-125) H Total Protein 6.7 G/DL (6.4-8.2) Albumin 3.1 G/DL (3.4-5.0) L Globulin 3.6 g/dL Albumin/Globulin Ratio 0.9 (1.0-2.7) L Triglycerides Level 60 MG/DL (30-150) Cholesterol Level 112 MG/DL (< 200) LDL Cholesterol 63 mg/dL (<100) HDL Cholesterol 38 MG/DL (40-60) L Cholesterol/HDL Ratio 2.9 (3.3-4.4) L Vitamin B12 Level 233 PG/ML (193-986) Folate 12.9 NG/ML (8.6-58.9) Thyroid Stimulating Hormone (TSH) 1.644 uiU/mL (0.358-3.740) Height (Feet): 5 Height (Inches): 10.00 Weight (Pounds): 433 Medications Current Medications Medications (Trade) Dose Ordered Sig/David Route PRN Reason Start Time Stop Time Status Last Admin Dose Admin Acetaminophen (Tylenol) 500 mg Q4H PRN ORAL Mild Pain/Temp > 100.5 06/01/19 05:00 07/01/19 04:59 06/02/19 00:49 Acetaminophen/ Hydrocodone Bitart ([place] 10/325) 1 tab Q4H PRN ORAL moderate pain 06/01/19 09:00 06/08/19 08:59 Apixaban (Eliquis) 5 mg BID ORAL 06/01/19 18:00 07/01/19 17:59 06/02/19 08:26 Atorvastatin Calcium (Lipitor) 40 mg BEDTIME ORAL 06/01/19 21:00 07/01/19 20:59 06/01/19 20:41 Carvedilol (Coreg) 25 mg EVERY 12 HOURS ORAL 06/01/19 21:00 07/01/19 20:59 06/02/19 08:26 Clonidine HCl (Catapres TTS-3) 1 patch QWEEK TDERMAL 06/01/19 12:00 07/01/19 11:59 06/01/19 13:37 Clonidine HCl (Catapres Tab) 0.1 mg Q4H PRN ORAL For High Blood Pressure 06/01/19 09:15 07/01/19 09:14 Digoxin (Lanoxin) 0.125 mg DAILY ORAL 06/02/19 09:00 07/02/19 08:59 06/02/19 08:25 Docusate Sodium (Colace) 100 mg THREE TIMES A DAY ORAL 06/01/19 09:32 07/01/19 09:31 06/02/19 08:26 Furosemide (Lasix) 80 mg BID IV 06/02/19 09:00 07/01/19 20:59 Gabapentin (Neurontin) 300 mg THREE TIMES A DAY ORAL 06/01/19 09:33 07/01/19 09:32 06/02/19 08:25 Hydralazine HCl (Apresoline) 75 mg Q8HR ORAL 06/01/19 14:00 07/01/19 13:59 06/01/19 21:18 Irbesartan (Avapro) 300 mg DAILY ORAL 06/02/19 09:00 07/02/19 08:59 06/02/19 08:25 Oxycodone HCl (Roxicodone) 5 mg Q4H PRN ORAL Breakthrough Pain 06/01/19 15:55 06/08/19 15:54 06/02/19 00:23 Potassium Chloride (K-Dur) 40 meq DAILY ORAL 06/03/19 09:00 07/03/19 08:59 Potassium Chloride (K-Dur) 40 meq ONCE ORAL 06/02/19 08:45 06/02/19 10:00 Assessment/Plan Assessment/Plan: Problem List: * CHF * Edema * Chronic hypercapnic respiratory failure * Possible COPD * Afib Plan: * Cont BiPAP * Monitor ABG * Monitor volumes, diuresis per cardiology/renal * monitor renal function * No evidence of infection * SNF placement Jass Hartman MD Jun 02, 2019 08:56
--- NOTE | 2019-06-02 09:08 | General Progress Note ---
Assessment/Plan Assessment/Plan: (1) Lumbar DDD (2) Lumbar Spondylosis (3) Morbid obesity Patient to be continued on oxycodone and [place]. D/w Dr. Stack and he concurred. Subjective Date patient seen: Jun 03, 2019 Time patient seen: 08:30 - am Constitutional: Reports: weakness HEENT: Reports: no symptoms Cardiovascular: Reports: no symptoms Respiratory: Reports: shortness of breath Gastrointestinal/Abdominal: Reports: no symptoms Genitourinary: Reports: no symptoms Neurologic/Psychiatric: Reports: no symptoms Endocrine: Reports: no symptoms Hematologic/Lymphatic: Reports: no symptoms Allergies: Coded Allergies: RIVAROXABAN (Verified Allergy, Unknown, 04/05/19) Subjective Patient is in bed Morphine was stopped by per assessment nurse and was started on Oxycodone 5mg PO 1 tab Q4H PRN. He has bipap applied. No new complaints at this time. Objective Last 24 Hour Vital Signs Date Time Temp Pulse Resp B/P (MAP) Pulse Ox O2 Delivery O2 Flow Rate FiO2 06/02/19 08:26 99 153/89 06/02/19 08:25 99 06/02/19 08:25 153/89 06/02/19 07:59 98.2 99 21 153/89 (110) 94 06/02/19 07:45 93 06/02/19 05:29 99 21 96 Facial 35 06/02/19 04:00 98.8 68 20 130/67 (88) 95 06/02/19 04:00 105 06/02/19 00:53 98 26 95 Facial 35 06/02/19 00:00 98 06/01/19 23:35 100 18 97 Facial 35 06/01/19 21:18 160/102 06/01/19 21:00 Nasal Cannula 3.0 06/01/19 20:41 93 160/102 06/01/19 20:00 105 06/01/19 20:00 99.0 93 20 166/102 (123) 96 06/01/19 16:00 3.0 06/01/19 16:00 98.2 86 18 128/73 (91) 97 06/01/19 16:00 98 06/01/19 13:37 151/78 06/01/19 13:31 151/78 06/01/19 12:00 97.0 80 20 153/78 (103) 95 06/01/19 12:00 95 06/01/19 12:00 3.0 Intake and Output 06/01/19 06/02/19 19:00 07:00 Intake Total 280 ml Output Total 1800 ml Balance -1520 ml Intake Oral 280 ml Output Urine Total 1800 ml # Voids 3 1 # Bowel Movements 1 1 Laboratory Tests 06/02/19 06:17: White Blood Count 9.9, Red Blood Count 4.41L, Hemoglobin 11.1L, Hematocrit 34.8L , Mean Corpuscular Volume 79L, Mean Corpuscular Hemoglobin 25.1L, Mean Corpuscular Hemoglobin Concent 31.8L, Red Cell Distribution Width 16.0H, Platelet Count 180, Mean Platelet Volume 10.0, Neutrophils (%) (Auto) 60.7, Lymphocytes (%) (Auto) 21.8, Monocytes (%) (Auto) 10.6H, Eosinophils (%) (Auto) 5.5H, Basophils (%) (Auto) 1.5, Sodium Level 146H, Potassium Level 3.4L, Chloride Level 104, Carbon Dioxide Level 38H, Anion Gap 4L, Blood Urea Nitrogen 17, Creatinine 1.3, Estimat Glomerular Filtration Rate > 60, Glucose Level 95, Uric Acid 5.4, Calcium Level 8.3L, Phosphorus Level 4.7, Magnesium Level 1.9, Iron Level 20L, Total Iron Binding Capacity 207L, Percent Iron Saturation 10L, Unsaturated Iron Binding 187, Ferritin 101, Total Bilirubin 0.4, Gamma Glutamyl Transpeptidase 21, Aspartate Amino Transf (AST/SGOT) 12L, Alanine Aminotransferase (ALT/SGPT) 15, Alkaline Phosphatase 54, Troponin I 0.032, C- Reactive Protein, Quantitative 6.3H, Pro-B-Type Natriuretic Peptide 399H, Total Protein 6.7, Albumin 3.1L, Globulin 3.6, Albumin/Globulin Ratio 0.9L, Triglycerides Level 60, Cholesterol Level 112, LDL Cholesterol 63, HDL Cholesterol 38L, Cholesterol/HDL Ratio 2.9L, Vitamin B12 Level 233, Folate 12.9 , Thyroid Stimulating Hormone (TSH) 1.644 Height (Feet): 5 Height (Inches): 10.00 Weight (Pounds): 433 General Appearance: no apparent distress, alert EENT: PERRL/EOMI, normal ENT inspection Neck: non-tender, normal alignment Cardiovascular: normal rate, regular rhythm Respiratory/Chest: decreased breath sounds Abdomen: non tender, soft Extremities: non-tender Edema: moderate edema Neurologic: alert, oriented x 3 Skin: normal pigmentation Osito Sultana Jun 02, 2019 09:08
--- NOTE | 2019-06-02 10:35 | Nephrology Progress Note ---
Assessment/Plan Problem List: (1) Electrolyte imbalance (2) COPD (chronic obstructive pulmonary disease) (3) CO2 retention (4) CHF (congestive heart failure) (5) Obesity, morbid, BMI 50 or higher Assessment (1) Hypokalemia (2) CHF (congestive heart failure) (3) s/p Renal failure (4) Obesity, morbid, BMI 50 or higher (5) CO2 retention (6) COPD (chronic obstructive pulmonary disease) Obesity , NATASHA AT fib with FVR Congestive heart failure, likely diastolic dysfunction. EF 60% Recurrent NSVT. No syncope. Hypertension. Morbid obesity. COPD. Lipidemia. Plan Plan optimize cardiac and pulm status Keep BP in check Monitor lytes Diamox PO as needed per orders per cardio and pulmonary Subjective ROS Limited/Unobtainable: No Constitutional: Reports: malaise, weakness Objective Objective Last 24 Hour Vital Signs Date Time Temp Pulse Resp B/P (MAP) Pulse Ox O2 Delivery O2 Flow Rate FiO2 06/02/19 09:30 88 30 92 Facial 35 06/02/19 08:26 99 153/89 06/02/19 08:25 99 06/02/19 08:25 153/89 06/02/19 07:59 98.2 99 21 153/89 (110) 94 06/02/19 07:45 93 06/02/19 05:29 99 21 96 Facial 35 06/02/19 04:00 98.8 68 20 130/67 (88) 95 06/02/19 04:00 105 06/02/19 00:53 98 26 95 Facial 35 06/02/19 00:00 98 06/01/19 23:35 100 18 97 Facial 35 06/01/19 21:18 160/102 06/01/19 21:00 Nasal Cannula 3.0 06/01/19 20:41 93 160/102 06/01/19 20:00 105 06/01/19 20:00 99.0 93 20 166/102 (123) 96 06/01/19 16:00 3.0 06/01/19 16:00 98.2 86 18 128/73 (91) 97 06/01/19 16:00 98 06/01/19 13:37 151/78 06/01/19 13:31 151/78 06/01/19 12:00 97.0 80 20 153/78 (103) 95 06/01/19 12:00 95 06/01/19 12:00 3.0 Intake and Output 06/01/19 06/02/19 19:00 07:00 Intake Total 280 ml Output Total 1800 ml Balance -1520 ml Intake Oral 280 ml Output Urine Total 1800 ml # Voids 3 1 # Bowel Movements 1 1 Laboratory Tests 06/02/19 06:17: White Blood Count 9.9, Red Blood Count 4.41L, Hemoglobin 11.1L, Hematocrit 34.8L , Mean Corpuscular Volume 79L, Mean Corpuscular Hemoglobin 25.1L, Mean Corpuscular Hemoglobin Concent 31.8L, Red Cell Distribution Width 16.0H, Platelet Count 180, Mean Platelet Volume 10.0, Neutrophils (%) (Auto) 60.7, Lymphocytes (%) (Auto) 21.8, Monocytes (%) (Auto) 10.6H, Eosinophils (%) (Auto) 5.5H, Basophils (%) (Auto) 1.5, Sodium Level 146H, Potassium Level 3.4L, Chloride Level 104, Carbon Dioxide Level 38H, Anion Gap 4L, Blood Urea Nitrogen 17, Creatinine 1.3, Estimat Glomerular Filtration Rate > 60, Glucose Level 95, Uric Acid 5.4, Calcium Level 8.3L, Phosphorus Level 4.7, Magnesium Level 1.9, Iron Level 20L, Total Iron Binding Capacity 207L, Percent Iron Saturation 10L, Unsaturated Iron Binding 187, Ferritin 101, Total Bilirubin 0.4, Gamma Glutamyl Transpeptidase 21, Aspartate Amino Transf (AST/SGOT) 12L, Alanine Aminotransferase (ALT/SGPT) 15, Alkaline Phosphatase 54, Troponin I 0.032, C- Reactive Protein, Quantitative 6.3H, Pro-B-Type Natriuretic Peptide 399H, Total Protein 6.7, Albumin 3.1L, Globulin 3.6, Albumin/Globulin Ratio 0.9L, Triglycerides Level 60, Cholesterol Level 112, LDL Cholesterol 63, HDL Cholesterol 38L, Cholesterol/HDL Ratio 2.9L, Vitamin B12 Level 233, Folate 12.9 , Thyroid Stimulating Hormone (TSH) 1.644 Height (Feet): 5 Height (Inches): 10.00 Weight (Pounds): 433 General Appearance: no apparent distress EENT: other - BIPAP Cardiovascular: tachycardia Respiratory/Chest: decreased breath sounds Abdomen: distended Fouladian,Bebeto MD Jun 02, 2019 10:35
[2019-06-02 12:00] VITALS: BP 112/63
--- NOTE | 2019-06-02 14:33 | General Progress Note ---
Assessment/Plan Assessment/Plan: S: I am feeling the same O: remains in mild- moderate sob with slight out of bed activity, no chest pain Physical ExamVital Signs General Appearance: alert, GCS 15, obese, Chronically Ill Head: normocephalicEyes: bilateral eye PERRL ENT: TMs + canals normal, uvula midlineNeck: full range of motion Respiratory: lungs clear, decreased breath soundsCardiovascular #1: edema - 3 + Edema Gastrointestinal: normal inspection, normal bowel sounds, non tender Musculoskeletal: morbid obesity, 1-2 + piting edema in LE. Neurologic: alert, motor strength/tone normal, meter tester primary III-XII nml as tested, oriented [id number]: normal inspection Skin: other - Bilateral scaly rash to the lower extremities Assessment/Plan: 1. 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 Morbid obesity 4. HTN 5. Multiple joint OA 6. Afib 7. NATASHA 8. ARF : improved 10 . GI-DVT prophylaxia 11. Moderate- PAH Plan: High risk for Re- admission in future SNIF placement will decrease the likely wallace of readmission Will resume medication from prior admission Pulmonary, Cardiology and Nephrology notes reviewed Better BP controll aggressive diuresis Subjective Allergies: Coded Allergies: RIVAROXABAN (Verified Allergy, Unknown, 04/05/19) Objective Last 24 Hour Vital Signs Date Time Temp Pulse Resp B/P (MAP) Pulse Ox O2 Delivery O2 Flow Rate FiO2 06/02/19 13:14 112/63 06/02/19 13:08 91 28 95 Facial 35 06/02/19 12:00 102 06/02/19 12:00 97.9 95 20 112/63 (79) 95 06/02/19 11:10 95 06/02/19 09:30 88 30 92 Facial 35 06/02/19 09:00 Nasal Cannula 3.0 06/02/19 08:26 99 153/89 06/02/19 08:25 99 06/02/19 08:25 153/89 06/02/19 08:00 99 06/02/19 07:59 98.2 99 21 153/89 (110) 94 06/02/19 07:45 93 06/02/19 05:29 99 21 96 Facial 35 06/02/19 04:00 98.8 68 20 130/67 (88) 95 06/02/19 04:00 105 06/02/19 00:53 98 26 95 Facial 35 06/02/19 00:00 98 06/01/19 23:35 100 18 97 Facial 35 06/01/19 21:18 160/102 06/01/19 21:00 Nasal Cannula 3.0 06/01/19 20:41 93 160/102 06/01/19 20:00 105 06/01/19 20:00 99.0 93 20 166/102 (123) 96 06/01/19 16:00 3.0 06/01/19 16:00 98.2 86 18 128/73 (91) 97 06/01/19 16:00 98 Intake and Output 06/01/19 06/02/19 18:59 06:59 Intake Total 420 ml Output Total 1800 ml Balance -1380 ml Intake Oral 420 ml Output Urine Total 1800 ml # Voids 3 1 # Bowel Movements 1 1 Laboratory Tests 06/02/19 06:17: White Blood Count 9.9, Red Blood Count 4.41L, Hemoglobin 11.1L, Hematocrit 34.8L , Mean Corpuscular Volume 79L, Mean Corpuscular Hemoglobin 25.1L, Mean Corpuscular Hemoglobin Concent 31.8L, Red Cell Distribution Width 16.0H, Platelet Count 180, Mean Platelet Volume 10.0, Neutrophils (%) (Auto) 60.7, Lymphocytes (%) (Auto) 21.8, Monocytes (%) (Auto) 10.6H, Eosinophils (%) (Auto) 5.5H, Basophils (%) (Auto) 1.5, Sodium Level 146H, Potassium Level 3.4L, Chloride Level 104, Carbon Dioxide Level 38H, Anion Gap 4L, Blood Urea Nitrogen 17, Creatinine 1.3, Estimat Glomerular Filtration Rate > 60, Glucose Level 95, Uric Acid 5.4, Calcium Level 8.3L, Phosphorus Level 4.7, Magnesium Level 1.9, Iron Level 20L, Total Iron Binding Capacity 207L, Percent Iron Saturation 10L, Unsaturated Iron Binding 187, Ferritin 101, Total Bilirubin 0.4, Gamma Glutamyl Transpeptidase 21, Aspartate Amino Transf (AST/SGOT) 12L, Alanine Aminotransferase (ALT/SGPT) 15, Alkaline Phosphatase 54, Troponin I 0.032, C- Reactive Protein, Quantitative 6.3H, Pro-B-Type Natriuretic Peptide 399H, Total Protein 6.7, Albumin 3.1L, Globulin 3.6, Albumin/Globulin Ratio 0.9L, Triglycerides Level 60, Cholesterol Level 112, LDL Cholesterol 63, HDL Cholesterol 38L, Cholesterol/HDL Ratio 2.9L, Vitamin B12 Level 233, Folate 12.9 , Thyroid Stimulating Hormone (TSH) 1.644 Height (Feet): 5 Height (Inches): 10.00 Weight (Pounds): 433 Desirae Haro MD Jun 02, 2019 14:33
[2019-06-02 16:00] VITALS: BP 128/73
[2019-06-02] MEDS ORDERED: Albuterol/Ipratropium 3ml neb HHN PRN (16:00)
--- NOTE | 2019-06-02 16:11 | Cardiac Electrophysiology PN ---
Assessment/Plan Assessment/Plan 1. Paroxysmal atrial fibrillation. EKG shows sinus rhythm with frequent PACs. Continue digoxin 0.125 mg daily, Coreg 25 mg b.i.d. and Eliquis 5 mg b.i.d. 2. Congestive heart failure exacerbation with diastolic dysfunction and hypertensive heart disease. On Lasix 80 mg IV b.i.d. 3. Hypertension, on Avapro 300 mg daily, Coreg 25 b.i.d., hydralazine 75 b.i.d., clonidine patch weekly, and p.r.n. clonidine. 4. Exacerbation of obstructive sleep apnea. 5. COPD. 6. Morbid obesity DW RN Subjective Subjective Diuresing well. Sitting in chair Objective Last 24 Hour Vital Signs Date Time Temp Pulse Resp B/P (MAP) Pulse Ox O2 Delivery O2 Flow Rate FiO2 06/02/19 15:20 93 29 94 Facial 35 06/02/19 13:14 112/63 06/02/19 13:08 91 28 95 Facial 35 06/02/19 12:00 102 06/02/19 12:00 97.9 95 20 112/63 (79) 95 06/02/19 11:10 95 06/02/19 09:30 88 30 92 Facial 35 06/02/19 09:00 Nasal Cannula 3.0 06/02/19 08:26 99 153/89 06/02/19 08:25 99 06/02/19 08:25 153/89 06/02/19 08:00 99 06/02/19 07:59 98.2 99 21 153/89 (110) 94 06/02/19 07:45 93 06/02/19 05:29 99 21 96 Facial 35 06/02/19 04:00 98.8 68 20 130/67 (88) 95 06/02/19 04:00 105 06/02/19 00:53 98 26 95 Facial 35 06/02/19 00:00 98 06/01/19 23:35 100 18 97 Facial 35 06/01/19 21:18 160/102 06/01/19 21:00 Nasal Cannula 3.0 06/01/19 20:41 93 160/102 06/01/19 20:00 105 06/01/19 20:00 99.0 93 20 166/102 (123) 96 Intake and Output 06/01/19 06/02/19 19:00 07:00 Intake Total 280 ml Output Total 1800 ml Balance -1520 ml Intake Oral 280 ml Output Urine Total 1800 ml # Voids 3 1 # Bowel Movements 1 1 Laboratory Tests Test 06/02/19 06:17 White Blood Count 9.9 K/UL (4.8-10.8) Red Blood Count 4.41 M/UL (4.70-6.10) L Hemoglobin 11.1 G/DL (14.2-18.0) L Hematocrit 34.8 % (42.0-52.0) L Mean Corpuscular Volume 79 FL (80-99) L Mean Corpuscular Hemoglobin 25.1 PG (27.0-31.0) L Mean Corpuscular Hemoglobin Concent 31.8 G/DL (32.0-36.0) L Red Cell Distribution Width 16.0 % (11.6-14.8) H Platelet Count 180 K/UL (150-450) Mean Platelet Volume 10.0 FL (6.5-10.1) Neutrophils (%) (Auto) 60.7 % (45.0-75.0) Lymphocytes (%) (Auto) 21.8 % (20.0-45.0) Monocytes (%) (Auto) 10.6 % (1.0-10.0) H Eosinophils (%) (Auto) 5.5 % (0.0-3.0) H Basophils (%) (Auto) 1.5 % (0.0-2.0) Sodium Level 146 MMOL/L (136-145) H Potassium Level 3.4 MMOL/L (3.5-5.1) L Chloride Level 104 MMOL/L (98-107) Carbon Dioxide Level 38 MMOL/L (21-32) H Anion Gap 4 mmol/L (5-15) L Blood Urea Nitrogen 17 mg/dL (7-18) Creatinine 1.3 MG/DL (0.55-1.30) Estimat Glomerular Filtration Rate > 60 mL/min (>60) Glucose Level 95 MG/DL (74-106) Uric Acid 5.4 MG/DL (2.6-7.2) Calcium Level 8.3 MG/DL (8.5-10.1) L Phosphorus Level 4.7 MG/DL (2.5-4.9) Magnesium Level 1.9 MG/DL (1.8-2.4) Iron Level 20 ug/dL (50-175) L Total Iron Binding Capacity 207 ug/dL (250-450) L Percent Iron Saturation 10 % (15-50) L Unsaturated Iron Binding 187 ug/dL (112-346) Ferritin 101 NG/ML (8-388) Total Bilirubin 0.4 MG/DL (0.2-1.0) Gamma Glutamyl Transpeptidase 21 U/L (5-85) Aspartate Amino Transf (AST/SGOT) 12 U/L (15-37) L Alanine Aminotransferase (ALT/SGPT) 15 U/L (12-78) Alkaline Phosphatase 54 U/L (46-116) Troponin I 0.032 ng/mL (0.000-0.056) C-Reactive Protein, Quantitative 6.3 mg/dL (0.00-0.90) H Pro-B-Type Natriuretic Peptide 399 pg/mL (0-125) H Total Protein 6.7 G/DL (6.4-8.2) Albumin 3.1 G/DL (3.4-5.0) L Globulin 3.6 g/dL Albumin/Globulin Ratio 0.9 (1.0-2.7) L Triglycerides Level 60 MG/DL (30-150) Cholesterol Level 112 MG/DL (< 200) LDL Cholesterol 63 mg/dL (<100) HDL Cholesterol 38 MG/DL (40-60) L Cholesterol/HDL Ratio 2.9 (3.3-4.4) L Vitamin B12 Level 233 PG/ML (193-986) Folate 12.9 NG/ML (8.6-58.9) Thyroid Stimulating Hormone (TSH) 1.644 uiU/mL (0.358-3.740) Microbiology Date/Time Source Procedure Growth Status 06/01/19 01:55 Rectum Received Objective HEAD AND NECK: Shows positive JVD. LUNGS: Coarse rhonchi. CARDIOVASCULAR: Shows regular S1 and S2 with no gallop or murmur. ABDOMEN: Obese. EXTREMITIES: 2+ pitting edema. Sandor Doll MD Jun 02, 2019 16:11
[2019-06-02 20:00] VITALS: BP 148/99
[2019-06-02] MEDS ORDERED: FERROUS SULFAT325 MG ORAL (20:29)
[2019-06-02] MEDS ORDERED: FUROSEMIDE20 M1 ORAL (20:29)
[2019-06-02] MEDS: Atorvastatin 20mg tab ORAL SCH (21:00)
[2019-06-03] VITALS (7 sets, daily range): BP systolic 115–139; BP diastolic 58–80
[2019-06-03] MEDS: oxyCODONE 5mg IR tab ORAL PRN ×2 (00:27→12:38)
[2019-06-03] MEDS: Acetaminophen 500mg (ES) tab ORAL PRN (00:29)
[2019-06-03] MEDS: HYDROcodone/Acetamin 10/325 tab ORAL PRN ×3 (02:32→17:40)
[2019-06-03] MEDS: HydrALAZINE 25mg tab ORAL SCH (06:00)
--- NOTE | 2019-06-03 09:04 | General Progress Note ---
Assessment/Plan Assessment/Plan: (1) Lumbar DDD (2) Lumbar Spondylosis (3) Morbid obesity Patient to be continued on oxycodone and [place]. D/w Dr. Stack and he concurred. Subjective Date patient seen: Jun 03, 2019 Time patient seen: 08:00 - am Constitutional: Reports: no symptoms HEENT: Reports: no symptoms Cardiovascular: Reports: no symptoms Respiratory: Reports: shortness of breath Gastrointestinal/Abdominal: Reports: no symptoms Genitourinary: Reports: no symptoms Neurologic/Psychiatric: Reports: no symptoms Endocrine: Reports: no symptoms Hematologic/Lymphatic: Reports: no symptoms Allergies: Coded Allergies: RIVAROXABAN (Verified Allergy, Unknown, 04/05/19) Subjective Patient showing no signs of pain or distress. Pain has been tolerated on the [place] and Oxycodone. No new complaints at this time. Objective Last 24 Hour Vital Signs Date Time Temp Pulse Resp B/P (MAP) Pulse Ox O2 Delivery O2 Flow Rate FiO2 06/03/19 06:00 115/88 06/03/19 04:54 86 23 96 Facial 35 06/03/19 04:00 87 06/03/19 04:00 98.2 87 18 115/58 (77) 96 06/03/19 03:25 86 93 06/03/19 03:02 98.7 06/03/19 01:08 103 28 96 Facial 35 06/03/19 00:39 120/78 (92) 06/03/19 00:00 98 06/03/19 00:00 98.0 81 18 139/80 (99) 97 06/02/19 23:25 88 19 95 Facial 35 06/02/19 22:00 128/80 06/02/19 21:22 89 18 96 Facial 35 06/02/19 21:00 87 136/86 06/02/19 21:00 Nasal Cannula 3.0 06/02/19 20:00 97 06/02/19 20:00 97.5 85 20 148/99 (115) 96 06/02/19 19:08 101 91 06/02/19 16:42 92 27 96 Nasal Cannula 3.0 32 88 30 94 06/02/19 16:34 94 06/02/19 16:00 97 06/02/19 16:00 98.7 98 20 128/73 (91) 95 06/02/19 15:20 93 29 94 Facial 35 06/02/19 13:14 112/63 06/02/19 13:08 91 28 95 Facial 35 06/02/19 12:00 102 06/02/19 12:00 97.9 95 20 112/63 (79) 95 06/02/19 11:10 95 06/02/19 09:30 88 30 92 Facial 35 Intake and Output 06/02/19 06/03/19 19:00 07:00 Intake Total 960 ml Output Total 2800 ml Balance -1840 ml Intake Oral 960 ml Output Urine Total 2800 ml # Voids 3 # Bowel Movements 1 3 Height (Feet): 5 Height (Inches): 10.00 Weight (Pounds): 433 General Appearance: no apparent distress, alert EENT: PERRL/EOMI, normal ENT inspection Neck: non-tender, normal alignment Cardiovascular: normal rate, regular rhythm Respiratory/Chest: decreased breath sounds Abdomen: soft, no organomegaly Extremities: non-tender Edema: moderate edema Neurologic: alert, oriented x 3 Skin: normal pigmentation Osito Sultana Jun 03, 2019 09:04
[2019-06-03] MEDS: Docusate 100mg cap ORAL SCH ×3 (09:26→17:41)
[2019-06-03] MEDS: Carvedilol 25mg Tab ORAL SCH ×2 (09:27→22:00)
[2019-06-03] MEDS: Eliquis 5mg tablet ORAL SCH ×2 (09:27→17:40)
[2019-06-03] MEDS: Digoxin 0.125mg tab ORAL SCH (09:27)
[2019-06-03] MEDS: Irbesartan 150mg tablet ORAL SCH (09:28)
--- NOTE | 2019-06-03 10:42 | Cardiac Electrophysiology PN ---
Assessment/Plan Assessment/Plan 1. Paroxysmal atrial fibrillation. Now in sinus rhythm with frequent PACs. Continue digoxin 0.125 mg daily, Coreg 25 mg b.i.d. and Eliquis 5 mg b.i.d. 2. CHF exacerbation with diastolic dysfunction and hypertensive heart disease. On Lasix 80 mg IV b.i.d. 3. Hypertension, on Avapro 300 mg daily, Coreg 25 bid, clonidine patch weekly, and p.r.n. clonidine. Change hydralazine from 75 tid to 100 bid 4. Exacerbation of obstructive sleep apnea. 5. COPD. 6. Morbid obesity DW RN Subjective Subjective Diuresing well. Sitting in chair. SOB is better. Objective Last 24 Hour Vital Signs Date Time Temp Pulse Resp B/P (MAP) Pulse Ox O2 Delivery O2 Flow Rate FiO2 06/03/19 09:28 118/62 06/03/19 09:27 91 118/62 06/03/19 09:27 91 06/03/19 09:00 3.0 06/03/19 09:00 Nasal Cannula 3.0 06/03/19 08:00 101 06/03/19 08:00 98.0 91 18 118/62 (80) 97 06/03/19 06:00 115/88 06/03/19 04:54 86 23 96 Facial 35 06/03/19 04:00 87 06/03/19 04:00 98.2 87 18 115/58 (77) 96 06/03/19 03:25 86 93 06/03/19 03:02 98.7 06/03/19 01:08 103 28 96 Facial 35 06/03/19 00:39 120/78 (92) 06/03/19 00:00 98 06/03/19 00:00 98.0 81 18 139/80 (99) 97 06/02/19 23:25 88 19 95 Facial 35 06/02/19 22:00 128/80 06/02/19 21:22 89 18 96 Facial 35 06/02/19 21:00 87 136/86 06/02/19 21:00 Nasal Cannula 3.0 06/02/19 20:00 97 06/02/19 20:00 97.5 85 20 148/99 (115) 96 06/02/19 19:08 101 91 06/02/19 16:42 92 27 96 Nasal Cannula 3.0 32 88 30 94 06/02/19 16:34 94 06/02/19 16:00 97 06/02/19 16:00 98.7 98 20 128/73 (91) 95 06/02/19 15:20 93 29 94 Facial 35 06/02/19 13:14 112/63 06/02/19 13:08 91 28 95 Facial 35 06/02/19 12:00 102 06/02/19 12:00 97.9 95 20 112/63 (79) 95 06/02/19 11:10 95 Intake and Output 06/02/19 06/03/19 19:00 07:00 Intake Total 960 ml Output Total 2800 ml Balance -1840 ml Intake Oral 960 ml Output Urine Total 2800 ml # Voids 3 # Bowel Movements 1 3 Microbiology Date/Time Source Procedure Growth Status 06/01/19 01:55 Nasal Nares MRSA Culture - Final NO METHICILLIN RESISTANT STAPH AUREUS... Complete 06/01/19 01:55 Rectum - Final NO CARBAPENEM-RESISTANT ENTEROBACTERI... Complete 06/01/19 01:55 Rectum VRE Culture - Final Enterococcus Faecium - Vre Complete Objective HEAD AND NECK: Shows positive JVD. LUNGS: Coarse rhonchi. CARDIOVASCULAR: Shows regular S1 and S2 with no gallop or murmur. ABDOMEN: Obese. EXTREMITIES: 2+ pitting edema. Sandor Doll MD Jun 03, 2019 10:42
--- NOTE | 2019-06-03 10:44 | General Progress Note ---
Assessment/Plan Assessment/Plan: S: I am feeling the same O: remains in mild- moderate sob with slight out of bed activity, no chest pain Physical ExamVital Signs General Appearance: alert, GCS 15, obese, Chronically Ill Head: normocephalicEyes: bilateral eye PERRL ENT: TMs + canals normal, uvula midlineNeck: full range of motion Respiratory: lungs clear, decreased breath soundsCardiovascular #1: edema - 3 + Edema Gastrointestinal: normal inspection, normal bowel sounds, non tender Musculoskeletal: morbid obesity, 1-2 + piting edema in LE. 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 Morbid obesity 4. HTN 5. Multiple joint OA 6. Afib 7. NATASHA 8. ARF : improved 10 . GI-DVT prophylaxia 11. Moderate- PAH Plan: High risk for Re- admission in future SNIF placement will decrease the likely wallace of readmission Will resume medication from prior admission Pulmonary, Cardiology and Nephrology notes reviewed Better BP controll aggressive diuresis Subjective Allergies: Coded Allergies: RIVAROXABAN (Verified Allergy, Unknown, 04/05/19) Objective Last 24 Hour Vital Signs Date Time Temp Pulse Resp B/P (MAP) Pulse Ox O2 Delivery O2 Flow Rate FiO2 06/03/19 09:28 118/62 06/03/19 09:27 91 118/62 06/03/19 09:27 91 06/03/19 09:00 3.0 06/03/19 09:00 Nasal Cannula 3.0 06/03/19 08:00 101 06/03/19 08:00 98.0 91 18 118/62 (80) 97 06/03/19 06:00 115/88 06/03/19 04:54 86 23 96 Facial 35 06/03/19 04:00 87 06/03/19 04:00 98.2 87 18 115/58 (77) 96 06/03/19 03:25 86 93 06/03/19 03:02 98.7 06/03/19 01:08 103 28 96 Facial 35 06/03/19 00:39 120/78 (92) 06/03/19 00:00 98 06/03/19 00:00 98.0 81 18 139/80 (99) 97 06/02/19 23:25 88 19 95 Facial 35 06/02/19 22:00 128/80 06/02/19 21:22 89 18 96 Facial 35 06/02/19 21:00 87 136/86 06/02/19 21:00 Nasal Cannula 3.0 06/02/19 20:00 97 06/02/19 20:00 97.5 85 20 148/99 (115) 96 06/02/19 19:08 101 91 06/02/19 16:42 92 27 96 Nasal Cannula 3.0 32 88 30 94 06/02/19 16:34 94 06/02/19 16:00 97 06/02/19 16:00 98.7 98 20 128/73 (91) 95 06/02/19 15:20 93 29 94 Facial 35 06/02/19 13:14 112/63 06/02/19 13:08 91 28 95 Facial 35 06/02/19 12:00 102 06/02/19 12:00 97.9 95 20 112/63 (79) 95 06/02/19 11:10 95 Intake and Output 06/02/19 06/03/19 19:00 07:00 Intake Total 960 ml Output Total 2800 ml Balance -1840 ml Intake Oral 960 ml Output Urine Total 2800 ml # Voids 3 # Bowel Movements 1 3 Height (Feet): 5 Height (Inches): 10.00 Weight (Pounds): 433 Desirae Haro MD Jun 03, 2019 10:44
--- NOTE | 2019-06-03 10:56 | Pulmonology Progress Note ---
Assessment/Plan Assessment/Plan Problem List: * CHF * Edema * Chronic hypercapnic respiratory failure * Possible COPD * Afib Plan: * Cont BiPAP * Monitor ABG * Monitor volumes, diuresis per cardiology/renal * monitor renal function * No evidence of infection * SNF placement Subjective ROS Limited/Unobtainable: No Interval Events: Feels short of breath. using BiPAP. Allergies: Coded Allergies: RIVAROXABAN (Verified Allergy, Unknown, 04/05/19) All Systems: reviewed and negative except above Objective Last 24 Hour Vital Signs Date Time Temp Pulse Resp B/P (MAP) Pulse Ox O2 Delivery O2 Flow Rate FiO2 06/03/19 10:08 98.0 06/03/19 09:28 118/62 06/03/19 09:27 91 118/62 06/03/19 09:27 91 06/03/19 09:00 3.0 06/03/19 09:00 Nasal Cannula 3.0 06/03/19 08:00 101 06/03/19 08:00 98.0 91 18 118/62 (80) 97 06/03/19 06:00 115/88 06/03/19 04:54 86 23 96 Facial 35 06/03/19 04:00 87 06/03/19 04:00 98.2 87 18 115/58 (77) 96 06/03/19 03:25 86 93 06/03/19 01:08 103 28 96 Facial 35 06/03/19 00:39 120/78 (92) 06/03/19 00:00 98 06/03/19 00:00 98.0 81 18 139/80 (99) 97 06/02/19 23:25 88 19 95 Facial 35 06/02/19 22:00 128/80 06/02/19 21:22 89 18 96 Facial 35 06/02/19 21:00 87 136/86 06/02/19 21:00 Nasal Cannula 3.0 06/02/19 20:00 97 06/02/19 20:00 97.5 85 20 148/99 (115) 96 06/02/19 19:08 101 91 06/02/19 16:42 92 27 96 Nasal Cannula 3.0 32 88 30 94 06/02/19 16:34 94 06/02/19 16:00 97 06/02/19 16:00 98.7 98 20 128/73 (91) 95 06/02/19 15:20 93 29 94 Facial 35 06/02/19 13:14 112/63 06/02/19 13:08 91 28 95 Facial 35 06/02/19 12:00 102 06/02/19 12:00 97.9 95 20 112/63 (79) 95 06/02/19 11:10 95 Intake and Output 06/02/19 06/03/19 18:59 06:59 Intake Total 960 ml Output Total 2800 ml Balance -1840 ml Intake Oral 960 ml Output Urine Total 2800 ml # Voids 3 # Bowel Movements 1 3 General Appearance: no acute distress HEENT: mucous membranes moist Respiratory/Chest: lungs clear Cardiovascular: normal rate Abdomen: soft, non tender Extremities: other - chronic edema Neurologic/Psychiatric: alert Microbiology Date/Time Source Procedure Growth Status 06/01/19 01:55 Nasal Nares MRSA Culture - Final NO METHICILLIN RESISTANT STAPH AUREUS... Complete 06/01/19 01:55 Rectum - Final NO CARBAPENEM-RESISTANT ENTEROBACTERI... Complete 06/01/19 01:55 Rectum VRE Culture - Final Enterococcus Faecium - Vre Complete Current Medications Medications (Trade) Dose Ordered Sig/David Route PRN Reason Start Time Stop Time Status Last Admin Dose Admin Acetaminophen (Tylenol) 500 mg Q4H PRN ORAL Mild Pain/Temp > 100.5 06/01/19 05:00 07/01/19 04:59 06/03/19 00:29 Acetaminophen/ Hydrocodone Bitart ([place] 10/325) 1 tab Q4H PRN ORAL moderate pain 06/01/19 09:00 06/08/19 08:59 06/03/19 09:38 Albuterol/ Ipratropium (Albuterol/ Ipratropium) 3 ml Q4H PRN HHN Shortness of Breath 06/02/19 16:00 06/07/19 15:59 06/02/19 16:32 Apixaban (Eliquis) 5 mg BID ORAL 06/01/19 18:00 07/01/19 17:59 06/03/19 09:27 Atorvastatin Calcium (Lipitor) 40 mg BEDTIME ORAL 06/01/19 21:00 07/01/19 20:59 06/02/19 21:00 Carvedilol (Coreg) 25 mg EVERY 12 HOURS ORAL 06/01/19 21:00 07/01/19 20:59 06/03/19 09:27 Clonidine HCl (Catapres TTS-3) 1 patch QWEEK TDERMAL 06/01/19 12:00 07/01/19 11:59 06/01/19 13:37 Clonidine HCl (Catapres Tab) 0.1 mg Q4H PRN ORAL For High Blood Pressure 06/01/19 09:15 07/01/19 09:14 Digoxin (Lanoxin) 0.125 mg DAILY ORAL 06/02/19 09:00 07/02/19 08:59 06/03/19 09:27 Docusate Sodium (Colace) 100 mg THREE TIMES A DAY ORAL 06/01/19 09:32 07/01/19 09:31 06/03/19 09:26 Furosemide (Lasix) 80 mg BID IV 06/02/19 09:00 07/01/19 20:59 06/03/19 09:28 Gabapentin (Neurontin) 300 mg THREE TIMES A DAY ORAL 06/01/19 09:33 07/01/19 09:32 06/03/19 09:27 Hydralazine HCl (Apresoline) 100 mg BID ORAL 06/03/19 18:00 07/01/19 13:59 Irbesartan (Avapro) 300 mg DAILY ORAL 06/02/19 09:00 07/02/19 08:59 06/03/19 09:28 Oxycodone HCl (Roxicodone) 5 mg Q4H PRN ORAL Breakthrough Pain 06/01/19 15:55 06/08/19 15:54 06/03/19 00:27 Potassium Chloride (K-Dur) 40 meq BID ORAL 06/02/19 18:00 07/03/19 08:59 06/03/19 09:27 Jass Hartman MD Jun 03, 2019 10:56
--- NOTE | 2019-06-03 12:06 | Nephrology Progress Note ---
Assessment/Plan Problem List: (1) Electrolyte imbalance (2) COPD (chronic obstructive pulmonary disease) (3) CO2 retention (4) CHF (congestive heart failure) (5) Obesity, morbid, BMI 50 or higher Assessment (1) Hypokalemia (2) CHF (congestive heart failure) (3) s/p Renal failure (4) Obesity, morbid, BMI 50 or higher (5) CO2 retention (6) COPD (chronic obstructive pulmonary disease) Obesity , NATASHA AT fib with FVR Congestive heart failure, likely diastolic dysfunction. EF 60% Recurrent NSVT. No syncope. Hypertension. Morbid obesity. COPD. Lipidemia. Plan Plan optimize cardiac and pulm status Keep BP in check Monitor lytes Diamox PO as needed per orders per cardio and pulmonary Subjective ROS Limited/Unobtainable: No Constitutional: Reports: malaise, weakness Objective Objective Last 24 Hour Vital Signs Date Time Temp Pulse Resp B/P (MAP) Pulse Ox O2 Delivery O2 Flow Rate FiO2 06/03/19 10:08 98.0 06/03/19 09:28 118/62 06/03/19 09:27 91 118/62 06/03/19 09:27 91 06/03/19 09:00 3.0 06/03/19 09:00 Nasal Cannula 3.0 06/03/19 08:00 101 06/03/19 08:00 98.0 91 18 118/62 (80) 97 06/03/19 06:00 115/88 06/03/19 04:54 86 23 96 Facial 35 06/03/19 04:00 87 06/03/19 04:00 98.2 87 18 115/58 (77) 96 06/03/19 03:25 86 93 06/03/19 01:08 103 28 96 Facial 35 06/03/19 00:39 120/78 (92) 06/03/19 00:00 98 06/03/19 00:00 98.0 81 18 139/80 (99) 97 06/02/19 23:25 88 19 95 Facial 35 06/02/19 22:00 128/80 06/02/19 21:22 89 18 96 Facial 35 06/02/19 21:00 87 136/86 06/02/19 21:00 Nasal Cannula 3.0 06/02/19 20:00 97 06/02/19 20:00 97.5 85 20 148/99 (115) 96 06/02/19 19:08 101 91 06/02/19 16:42 92 27 96 Nasal Cannula 3.0 32 88 30 94 06/02/19 16:34 94 06/02/19 16:00 97 06/02/19 16:00 98.7 98 20 128/73 (91) 95 06/02/19 15:20 93 29 94 Facial 35 06/02/19 13:14 112/63 06/02/19 13:08 91 28 95 Facial 35 Intake and Output 06/02/19 06/03/19 19:00 07:00 Intake Total 960 ml Output Total 2800 ml Balance -1840 ml Intake Oral 960 ml Output Urine Total 2800 ml # Voids 3 # Bowel Movements 1 3 Height (Feet): 5 Height (Inches): 10.00 Weight (Pounds): 433 General Appearance: mild distress EENT: other - BIPAP Respiratory/Chest: decreased breath sounds Abdomen: distended Bebeto Yin MD Jun 03, 2019 12:06
[2019-06-03] MEDS ORDERED: HydrALAZINE 25mg tab ORAL SCH (18:00)
[2019-06-03] MEDS: Atorvastatin 20mg tab ORAL SCH (22:00)
[2019-06-04] VITALS: BP 129/90
[2019-06-04] MEDS ORDERED: HYDROcodone/Acetamin 10/325 tab ORAL PRN (02:30)
[2019-06-04] MEDS ORDERED: Albuterol/Ipratropium 3ml neb HHN PRN (02:30)
[2019-06-04 04:00] VITALS: BP 132/80
[2019-06-04 07:29] LABS: EOSINOPHILS % (AUTO) 7.4 % (0.0-3.0); HEMATOCRIT 32.9 % (42.0-52.0); HEMOGLOBIN 10.5 G/DL (14.2-18.0); LYMPHOCYTES % (AUTO) 22.9 % (20.0-45.0); MEAN CORPUSCULAR VOLUME 79 FL (80-99); MONOCYTES % (AUTO) 10.7 % (1.0-10.0); PLATELET COUNT 192 K/UL (150-450); RED BLOOD COUNT 4.18 M/UL (4.70-6.10); RED CELL DISTRIBUTION WIDTH 16.3 % (11.6-14.8); WHITE BLOOD COUNT 7.3 K/UL (4.8-10.8)
[2019-06-04 07:38] LABS: ALANINE AMINOTRANSFERASE 17 U/L (12-78); ALBUMIN/GLOBULIN RATIO 0.8 (1.0-2.7); ALKALINE PHOSPHATASE 48 U/L (46-116); ANION GAP 3 mmol/L (5-15); ASPARTATE AMINO TRANSFERASE 9 U/L (15-37); BILIRUBIN,TOTAL 0.4 MG/DL (0.2-1.0); BLOOD UREA NITROGEN 20 mg/dL (7-18); CALCIUM 8.4 MG/DL (8.5-10.1); CHLORIDE 103 MMOL/L (98-107); CREATININE 1.3 MG/DL (0.55-1.30); PHOSPHORUS 4.7 MG/DL (2.5-4.9); POTASSIUM 3.4 MMOL/L (3.5-5.1); SODIUM 148 MMOL/L (136-145)
[2019-06-04 08:00] VITALS: BP 164/63
[2019-06-04 08:02] LABS: CARBON DIOXIDE 41 MMOL/L (21-32)
--- NOTE | 2019-06-04 08:55 | General Progress Note ---
Assessment/Plan Assessment/Plan: S: I am feeling better O: remains in mild- sob with slight out of bed activity, no chest pain Physical ExamVital Signs General Appearance: alert, GCS 15, obese, Chronically Ill Head: normocephalicEyes: bilateral eye PERRL ENT: TMs + canals normal, uvula midlineNeck: full range of motion Respiratory: lungs clear, decreased breath soundsCardiovascular #1: edema - 1 + Edema Gastrointestinal: normal inspection, normal bowel sounds, non tender Musculoskeletal: morbid obesity, minimal non piting edema in LE. 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 Morbid obesity 4. HTN 5. Multiple joint OA 6. Afib 7. NATASHA 8. ARF : improved 10 . GI-DVT prophylaxia 11. Moderate- PAH 12. Hypokalemia Plan: High risk for Re- admission in future SNIF placement will decrease the likely wallace of readmission Will resume medication from prior admission Pulmonary, Cardiology and Nephrology notes reviewed Better BP controll current aggressive diuresis and potassium supplementation Disposition : SNIF or patient his own plan of care Subjective Allergies: Coded Allergies: RIVAROXABAN (Verified Allergy, Unknown, 04/05/19) Objective Last 24 Hour Vital Signs Date Time Temp Pulse Resp B/P (MAP) Pulse Ox O2 Delivery O2 Flow Rate FiO2 06/04/19 08:00 97.1 94 18 164/63 (96) 95 06/04/19 05:00 89 23 93 Facial 35 06/04/19 04:00 98.0 82 18 132/80 (97) 96 06/04/19 04:00 3.0 06/04/19 02:48 89 25 94 Facial 35 06/04/19 01:29 92 28 92 Facial 35 06/04/19 00:00 97.7 83 18 129/90 (103) 95 06/04/19 00:00 3.0 06/03/19 22:00 97 135/77 06/03/19 21:00 Nasal Cannula 3.0 06/03/19 20:00 3.0 06/03/19 20:00 97.4 97 18 135/77 (96) 96 06/03/19 17:39 120/71 06/03/19 16:00 3.0 06/03/19 16:00 97.5 96 18 120/71 (87) 98 06/03/19 12:00 98.3 94 18 122/68 (86) 98 06/03/19 12:00 87 06/03/19 12:00 3.0 06/03/19 10:08 98.0 06/03/19 09:28 118/62 06/03/19 09:27 91 118/62 06/03/19 09:27 91 06/03/19 09:00 3.0 06/03/19 09:00 Nasal Cannula 3.0 Intake and Output 06/03/19 06/04/19 19:00 07:00 Intake Total 1600 ml Balance 1600 ml Intake Oral 1600 ml # Voids 8 1 # Bowel Movements 2 1 Laboratory Tests 06/04/19 06:48: White Blood Count 7.3, Red Blood Count 4.18L, Hemoglobin 10.5L, Hematocrit 32.9L , Mean Corpuscular Volume 79L, Mean Corpuscular Hemoglobin 25.1L, Mean Corpuscular Hemoglobin Concent 31.9L, Red Cell Distribution Width 16.3H, Platelet Count 192, Mean Platelet Volume 9.4, Neutrophils (%) (Auto) 58.0, Lymphocytes (%) (Auto) 22.9, Monocytes (%) (Auto) 10.7H, Eosinophils (%) (Auto) 7.4H, Basophils (%) (Auto) 1.0, Sodium Level 148H, Potassium Level 3.4L, Chloride Level 103, Carbon Dioxide Level 41*H, Anion Gap 3L, Blood Urea Nitrogen 20H, Creatinine 1.3, Estimat Glomerular Filtration Rate > 60, Glucose Level 122H, Calcium Level 8.4L, Phosphorus Level 4.7, Magnesium Level 1.8, Total Bilirubin 0.4, Aspartate Amino Transf (AST/SGOT) 9L, Alanine Aminotransferase (ALT/SGPT) 17, Alkaline Phosphatase 48, C-Reactive Protein, Quantitative 4.0H, Total Protein 6.6, Albumin 3.0L, Globulin 3.6, Albumin/ Globulin Ratio 0.8L Height (Feet): 5 Height (Inches): 10.00 Weight (Pounds): 433 Desirae Haro MD Jun 04, 2019 08:55
[2019-06-04] MEDS: Eliquis 5mg tablet ORAL SCH ×2 (09:29→17:11)
[2019-06-04] MEDS: Docusate 100mg cap ORAL SCH ×3 (09:29→17:11)
[2019-06-04] MEDS: Carvedilol 25mg Tab ORAL SCH ×2 (09:30→20:40)
[2019-06-04] MEDS: Irbesartan 150mg tablet ORAL SCH (09:30)
[2019-06-04] MEDS: Digoxin 0.125mg tab ORAL SCH (09:30)
[2019-06-04] MEDS: HydrALAZINE 25mg tab ORAL SCH ×2 (09:31→17:12)
[2019-06-04 12:00] VITALS: BP 127/55
--- NOTE | 2019-06-04 13:11 | Nephrology Progress Note ---
Assessment/Plan Problem List: (1) Electrolyte imbalance (2) COPD (chronic obstructive pulmonary disease) (3) CO2 retention (4) CHF (congestive heart failure) (5) Obesity, morbid, BMI 50 or higher Assessment (1) Hypokalemia (2) CHF (congestive heart failure) (3) s/p Renal failure (4) Obesity, morbid, BMI 50 or higher (5) CO2 retention (6) COPD (chronic obstructive pulmonary disease) Obesity , NATASHA AT fib with FVR Congestive heart failure, likely diastolic dysfunction. EF 60% Recurrent NSVT. No syncope. Hypertension. Morbid obesity. COPD. Lipidemia. Plan Plan optimize cardiac and pulm status Keep BP in check Monitor lytes Diamox PO as needed per orders per cardio and pulmonary Subjective ROS Limited/Unobtainable: No Constitutional: Reports: malaise, weakness Objective Objective Last 24 Hour Vital Signs Date Time Temp Pulse Resp B/P (MAP) Pulse Ox O2 Delivery O2 Flow Rate FiO2 06/04/19 12:00 98.7 87 19 127/55 (79) 96 06/04/19 12:00 3.0 06/04/19 09:31 164/63 06/04/19 09:30 164/63 06/04/19 09:30 94 06/04/19 09:30 94 164/63 06/04/19 09:00 Nasal Cannula 3.0 06/04/19 08:00 3.0 06/04/19 08:00 97.1 94 18 164/63 (96) 95 06/04/19 05:00 89 23 93 Facial 35 06/04/19 04:00 98.0 82 18 132/80 (97) 96 06/04/19 04:00 3.0 06/04/19 02:48 89 25 94 Facial 35 06/04/19 01:29 92 28 92 Facial 35 06/04/19 00:00 97.7 83 18 129/90 (103) 95 06/04/19 00:00 3.0 06/03/19 22:00 97 135/77 06/03/19 21:00 Nasal Cannula 3.0 06/03/19 20:00 3.0 06/03/19 20:00 97.4 97 18 135/77 (96) 96 06/03/19 17:39 120/71 06/03/19 16:00 3.0 06/03/19 16:00 97.5 96 18 120/71 (87) 98 Intake and Output 06/03/19 06/04/19 19:00 07:00 Intake Total 1600 ml Balance 1600 ml Intake Oral 1600 ml # Voids 8 1 # Bowel Movements 2 1 Laboratory Tests 06/04/19 06:48: White Blood Count 7.3, Red Blood Count 4.18L, Hemoglobin 10.5L, Hematocrit 32.9L , Mean Corpuscular Volume 79L, Mean Corpuscular Hemoglobin 25.1L, Mean Corpuscular Hemoglobin Concent 31.9L, Red Cell Distribution Width 16.3H, Platelet Count 192, Mean Platelet Volume 9.4, Neutrophils (%) (Auto) 58.0, Lymphocytes (%) (Auto) 22.9, Monocytes (%) (Auto) 10.7H, Eosinophils (%) (Auto) 7.4H, Basophils (%) (Auto) 1.0, Sodium Level 148H, Potassium Level 3.4L, Chloride Level 103, Carbon Dioxide Level 41*H, Anion Gap 3L, Blood Urea Nitrogen 20H, Creatinine 1.3, Estimat Glomerular Filtration Rate > 60, Glucose Level 122H, Calcium Level 8.4L, Phosphorus Level 4.7, Magnesium Level 1.8, Total Bilirubin 0.4, Aspartate Amino Transf (AST/SGOT) 9L, Alanine Aminotransferase (ALT/SGPT) 17, Alkaline Phosphatase 48, C-Reactive Protein, Quantitative 4.0H, Total Protein 6.6, Albumin 3.0L, Globulin 3.6, Albumin/ Globulin Ratio 0.8L Height (Feet): 5 Height (Inches): 10.00 Weight (Pounds): 433 General Appearance: no apparent distress Cardiovascular: bradycardia Respiratory/Chest: decreased breath sounds Abdomen: distended Bebeto Yin MD Jun 04, 2019 13:11
--- NOTE | 2019-06-04 13:15 | Cardiac Electrophysiology PN ---
Assessment/Plan Assessment/Plan 1. Paroxysmal atrial fibrillation. Now in sinus rhythm with frequent PACs. Continue digoxin 0.125 mg daily, Coreg 25 mg b.i.d. and Eliquis 5 mg b.i.d. 2. CHF exacerbation with diastolic dysfunction and hypertensive heart disease. Continue Lasix 80 mg IV b.i.d. 3. Hypertension, on Avapro 300 mg daily, Coreg 25 bid, clonidine patch weekly, and p.r.n. clonidine. Hydralazine 100 bid 4. Exacerbation of obstructive sleep apnea. 5. COPD. 6. Morbid obesity DW RN Subjective Subjective Diuresing well.Transferred to [facility]. SOB is better. Objective Last 24 Hour Vital Signs Date Time Temp Pulse Resp B/P (MAP) Pulse Ox O2 Delivery O2 Flow Rate FiO2 06/04/19 12:00 98.7 87 19 127/55 (79) 96 06/04/19 12:00 3.0 06/04/19 09:31 164/63 06/04/19 09:30 164/63 06/04/19 09:30 94 06/04/19 09:30 94 164/63 06/04/19 09:00 Nasal Cannula 3.0 06/04/19 08:00 3.0 06/04/19 08:00 97.1 94 18 164/63 (96) 95 06/04/19 05:00 89 23 93 Facial 35 06/04/19 04:00 98.0 82 18 132/80 (97) 96 06/04/19 04:00 3.0 06/04/19 02:48 89 25 94 Facial 35 06/04/19 01:29 92 28 92 Facial 35 06/04/19 00:00 97.7 83 18 129/90 (103) 95 06/04/19 00:00 3.0 06/03/19 22:00 97 135/77 06/03/19 21:00 Nasal Cannula 3.0 06/03/19 20:00 3.0 06/03/19 20:00 97.4 97 18 135/77 (96) 96 06/03/19 17:39 120/71 06/03/19 16:00 3.0 06/03/19 16:00 97.5 96 18 120/71 (87) 98 Intake and Output 06/03/19 06/04/19 19:00 07:00 Intake Total 1600 ml Balance 1600 ml Intake Oral 1600 ml # Voids 8 1 # Bowel Movements 2 1 Laboratory Tests Test 06/04/19 06:48 White Blood Count 7.3 K/UL (4.8-10.8) Red Blood Count 4.18 M/UL (4.70-6.10) L Hemoglobin 10.5 G/DL (14.2-18.0) L Hematocrit 32.9 % (42.0-52.0) L Mean Corpuscular Volume 79 FL (80-99) L Mean Corpuscular Hemoglobin 25.1 PG (27.0-31.0) L Mean Corpuscular Hemoglobin Concent 31.9 G/DL (32.0-36.0) L Red Cell Distribution Width 16.3 % (11.6-14.8) H Platelet Count 192 K/UL (150-450) Mean Platelet Volume 9.4 FL (6.5-10.1) Neutrophils (%) (Auto) 58.0 % (45.0-75.0) Lymphocytes (%) (Auto) 22.9 % (20.0-45.0) Monocytes (%) (Auto) 10.7 % (1.0-10.0) H Eosinophils (%) (Auto) 7.4 % (0.0-3.0) H Basophils (%) (Auto) 1.0 % (0.0-2.0) Sodium Level 148 MMOL/L (136-145) H Potassium Level 3.4 MMOL/L (3.5-5.1) L Chloride Level 103 MMOL/L (98-107) Carbon Dioxide Level 41 MMOL/L (21-32) *H Anion Gap 3 mmol/L (5-15) L Blood Urea Nitrogen 20 mg/dL (7-18) H Creatinine 1.3 MG/DL (0.55-1.30) Estimat Glomerular Filtration Rate > 60 mL/min (>60) Glucose Level 122 MG/DL (74-106) H Calcium Level 8.4 MG/DL (8.5-10.1) L Phosphorus Level 4.7 MG/DL (2.5-4.9) Magnesium Level 1.8 MG/DL (1.8-2.4) Total Bilirubin 0.4 MG/DL (0.2-1.0) Aspartate Amino Transf (AST/SGOT) 9 U/L (15-37) L Alanine Aminotransferase (ALT/SGPT) 17 U/L (12-78) Alkaline Phosphatase 48 U/L (46-116) C-Reactive Protein, Quantitative 4.0 mg/dL (0.00-0.90) H Total Protein 6.6 G/DL (6.4-8.2) Albumin 3.0 G/DL (3.4-5.0) L Globulin 3.6 g/dL Albumin/Globulin Ratio 0.8 (1.0-2.7) L Objective HEAD AND NECK: Shows positive JVD. LUNGS: Coarse rhonchi. CARDIOVASCULAR: Shows regular S1 and S2 with no gallop or murmur. ABDOMEN: Obese. EXTREMITIES: 2+ pitting edema. Sandor Doll MD Jun 04, 2019 13:15
[2019-06-04 16:00] VITALS: BP 123/82
[2019-06-04] MEDS: oxyCODONE 5mg IR tab ORAL PRN (19:45)
[2019-06-04 20:00] VITALS: BP 124/78
[2019-06-04] MEDS: Atorvastatin 20mg tab ORAL SCH (20:40)
[2019-06-05] VITALS: BP 115/65
[2019-06-05 04:00] VITALS: BP 132/80
[2019-06-05 08:07] VITALS: BP_SYST 132; BP_SYST 144; BP_DIAS 80; BP_DIAS 87
[2019-06-05] MEDS: Digoxin 0.125mg tab ORAL SCH (08:10)
[2019-06-05] MEDS: Irbesartan 150mg tablet ORAL SCH (08:10)
[2019-06-05] MEDS: Docusate 100mg cap ORAL SCH ×3 (08:11→17:09)
[2019-06-05] MEDS: Eliquis 5mg tablet ORAL SCH ×2 (08:11→17:08)
[2019-06-05] MEDS: Carvedilol 25mg Tab ORAL SCH ×2 (08:11→21:00)
[2019-06-05] MEDS: HydrALAZINE 25mg tab ORAL SCH ×2 (08:12→17:09)
--- NOTE | 2019-06-05 11:02 | Nephrology Progress Note ---
Assessment/Plan Problem List: (1) Electrolyte imbalance (2) COPD (chronic obstructive pulmonary disease) (3) CO2 retention (4) CHF (congestive heart failure) (5) Obesity, morbid, BMI 50 or higher Assessment (1) Hypokalemia (2) CHF (congestive heart failure) (3) s/p Renal failure (4) Obesity, morbid, BMI 50 or higher (5) CO2 retention (6) COPD (chronic obstructive pulmonary disease) Obesity , NATASHA AT fib with FVR Congestive heart failure, likely diastolic dysfunction. EF 60% Recurrent NSVT. No syncope. Hypertension. Morbid obesity. COPD. Lipidemia. Plan Plan optimize cardiac and pulm status Keep BP in check Monitor lytes Diamox PO as needed per orders per cardio and pulmonary Subjective ROS Limited/Unobtainable: No Constitutional: Reports: malaise Objective Objective Last 24 Hour Vital Signs Date Time Temp Pulse Resp B/P (MAP) Pulse Ox O2 Delivery O2 Flow Rate FiO2 06/05/19 09:00 Nasal Cannula 3.0 06/05/19 08:12 144/87 06/05/19 08:11 75 144/87 06/05/19 08:10 144/87 06/05/19 08:10 75 06/05/19 08:07 98.9 75 22 144/87 (106) 95 06/05/19 08:00 3.0 06/05/19 07:55 Nasal Cannula 3.0 06/05/19 04:00 3.0 06/05/19 04:00 98.8 101 24 132/80 (97) 98 06/05/19 02:16 83 27 96 Facial 35 06/05/19 01:02 88 25 95 Facial 35 06/05/19 00:00 3.0 06/05/19 00:00 98.0 90 24 115/65 (82) 96 06/04/19 23:05 82 27 96 Facial 35 06/04/19 21:00 Nasal Cannula 3.0 06/04/19 20:43 84 25 95 Facial 35 06/04/19 20:40 99 124/78 06/04/19 20:00 98.9 99 24 124/78 (93) 100 06/04/19 20:00 3.0 06/04/19 17:12 123/82 06/04/19 16:00 3.0 06/04/19 16:00 98.7 81 19 123/82 (96) 97 06/04/19 12:00 98.7 87 19 127/55 (79) 96 06/04/19 12:00 3.0 Intake and Output 06/04/19 06/05/19 19:00 07:00 Intake Total 1680 ml 480 ml Output Total 2900 ml Balance 1680 ml -2420 ml Intake Oral 1680 ml 480 ml Output Urine Total 2900 ml # Voids 8 6 # Bowel Movements 3 Height (Feet): 5 Height (Inches): 10.00 Weight (Pounds): 433 General Appearance: no apparent distress Respiratory/Chest: decreased breath sounds Abdomen: distended Bebeto Yin MD Jun 05, 2019 11:02
[2019-06-05 12:00] VITALS: BP 149/93
--- NOTE | 2019-06-05 13:26 | General Progress Note ---
Assessment/Plan Assessment/Plan: (1) Lumbar DDD (2) Lumbar Spondylosis (3) Morbid obesity Patient to be continued on oxycodone and [place]. D/w Dr. Stack and he concurred. Subjective Date patient seen: Jun 05, 2019 Time patient seen: 12:45 - Pm Constitutional: Reports: weakness HEENT: Reports: no symptoms Cardiovascular: Reports: no symptoms Respiratory: Reports: shortness of breath Gastrointestinal/Abdominal: Reports: no symptoms Genitourinary: Reports: no symptoms Neurologic/Psychiatric: Reports: no symptoms Endocrine: Reports: no symptoms Hematologic/Lymphatic: Reports: no symptoms Allergies: Coded Allergies: RIVAROXABAN (Verified Allergy, Unknown, 04/05/19) Subjective In bed no signs of pain or distress. No new complaints at this time. Pain has been tolerated on the [place] and Oxycodone. Objective Last 24 Hour Vital Signs Date Time Temp Pulse Resp B/P (MAP) Pulse Ox O2 Delivery O2 Flow Rate FiO2 06/05/19 12:00 98.2 77 19 149/93 (111) 95 06/05/19 12:00 3.0 06/05/19 09:00 Nasal Cannula 3.0 06/05/19 08:12 144/87 06/05/19 08:11 75 144/87 06/05/19 08:10 144/87 06/05/19 08:10 75 06/05/19 08:07 98.9 75 22 144/87 (106) 95 06/05/19 08:00 3.0 06/05/19 07:55 Nasal Cannula 3.0 06/05/19 04:00 3.0 06/05/19 04:00 98.8 101 24 132/80 (97) 98 06/05/19 02:16 83 27 96 Facial 35 06/05/19 01:02 88 25 95 Facial 35 06/05/19 00:00 3.0 06/05/19 00:00 98.0 90 24 115/65 (82) 96 06/04/19 23:05 82 27 96 Facial 35 06/04/19 21:00 Nasal Cannula 3.0 06/04/19 20:43 84 25 95 Facial 35 06/04/19 20:40 99 124/78 06/04/19 20:00 98.9 99 24 124/78 (93) 100 06/04/19 20:00 3.0 06/04/19 17:12 123/82 06/04/19 16:00 3.0 06/04/19 16:00 98.7 81 19 123/82 (96) 97 Intake and Output 06/04/19 06/05/19 19:00 07:00 Intake Total 1680 ml 480 ml Output Total 2900 ml Balance 1680 ml -2420 ml Intake Oral 1680 ml 480 ml Output Urine Total 2900 ml # Voids 8 6 # Bowel Movements 3 Height (Feet): 5 Height (Inches): 10.00 Weight (Pounds): 433 General Appearance: no apparent distress, alert EENT: PERRL/EOMI, normal ENT inspection Neck: non-tender, normal alignment Cardiovascular: normal rate, regular rhythm Respiratory/Chest: decreased breath sounds Abdomen: non tender, soft Extremities: swelling Edema: moderate edema Neurologic: alert, oriented x 3 Skin: warm/dry Osito Sultana Jun 05, 2019 13:26
[2019-06-05] MEDS: oxyCODONE 5mg IR tab ORAL PRN ×2 (14:58→21:02)
[2019-06-05 16:00] VITALS: BP 149/101
[2019-06-05 19:45] VITALS: BP 114/68
[2019-06-05] MEDS: Atorvastatin 20mg tab ORAL SCH (21:00)
[2019-06-06 04:11] VITALS: BP 133/74
[2019-06-06 08:00] VITALS: BP 127/75
--- NOTE | 2019-06-06 08:50 | General Progress Note ---
Assessment/Plan Assessment/Plan: (1) Lumbar DDD (2) Lumbar Spondylosis (3) Morbid obesity Patient to be continued on oxycodone and [place]. D/w Dr. Stack and he concurred. Subjective Date patient seen: Jun 06, 2019 Time patient seen: 08:00 - am Constitutional: Reports: weakness HEENT: Reports: no symptoms Cardiovascular: Reports: no symptoms Respiratory: Reports: shortness of breath Gastrointestinal/Abdominal: Reports: no symptoms Genitourinary: Reports: no symptoms Neurologic/Psychiatric: Reports: no symptoms Endocrine: Reports: no symptoms Hematologic/Lymphatic: Reports: no symptoms Allergies: Coded Allergies: RIVAROXABAN (Verified Allergy, Unknown, 04/05/19) Subjective In bed bipap applied moderate pain tolerated on the [place] and Oxycodone. No new complaints at this time. Objective Last 24 Hour Vital Signs Date Time Temp Pulse Resp B/P (MAP) Pulse Ox O2 Delivery O2 Flow Rate FiO2 06/06/19 05:15 77 25 96 Facial 35 06/06/19 04:12 3.0 06/06/19 04:11 97.5 81 20 133/74 (93) 96 06/06/19 03:30 78 24 95 Facial 35 06/06/19 01:45 70 25 96 Facial 35 06/05/19 23:30 75 25 95 Facial 35 06/05/19 22:20 72 25 96 Facial 35 06/05/19 21:00 82 114/68 06/05/19 20:14 Nasal Cannula 3.0 06/05/19 20:13 3.0 06/05/19 20:10 Nasal Cannula 3.0 06/05/19 19:45 99.0 82 20 114/68 (83) 96 06/05/19 17:09 149/101 06/05/19 16:00 98.8 99 20 149/101 (117) 95 06/05/19 16:00 3.0 06/05/19 12:00 98.2 77 19 149/93 (111) 95 06/05/19 12:00 3.0 06/05/19 09:00 Nasal Cannula 3.0 Intake and Output 06/05/19 06/06/19 19:00 07:00 Intake Total 1200 ml 1200 ml Output Total 2200 ml Balance 1200 ml -1000 ml Intake Oral 1200 ml Other 1200 ml Output Urine Total 2200 ml # Voids 5 Height (Feet): 5 Height (Inches): 10.00 Weight (Pounds): 433 General Appearance: no apparent distress, alert EENT: PERRL/EOMI Neck: non-tender, normal alignment Cardiovascular: normal rate, regular rhythm Respiratory/Chest: decreased breath sounds Abdomen: non tender, soft Extremities: non-tender Edema: moderate edema Neurologic: alert, oriented x 3 Skin: warm/dry Osito Sultana Jun 06, 2019 08:49
[2019-06-06] MEDS: Digoxin 0.125mg tab ORAL SCH (09:08)
[2019-06-06] MEDS: Docusate 100mg cap ORAL SCH ×3 (09:09→17:07)
[2019-06-06] MEDS: Eliquis 5mg tablet ORAL SCH ×2 (09:09→17:07)
[2019-06-06] MEDS: Irbesartan 150mg tablet ORAL SCH (09:09)
[2019-06-06] MEDS: HydrALAZINE 25mg tab ORAL SCH (09:10)
[2019-06-06] MEDS: Carvedilol 25mg Tab ORAL SCH ×2 (09:15→20:40)
[2019-06-06 09:19] LABS: BASOPHILS % (AUTO) 1.1 % (0.0-2.0); EOSINOPHILS % (AUTO) 5.7 % (0.0-3.0); HEMOGLOBIN 10.5 G/DL (14.2-18.0); LYMPHOCYTES % (AUTO) 23.3 % (20.0-45.0); MEAN CORPUSCULAR VOLUME 78 FL (80-99); NEUTROPHILS % (AUTO) 57.9 % (45.0-75.0); PLATELET COUNT 195 K/UL (150-450); RED BLOOD COUNT 4.11 M/UL (4.70-6.10); RED CELL DISTRIBUTION WIDTH 16.2 % (11.6-14.8); WHITE BLOOD COUNT 8.5 K/UL (4.8-10.8)
[2019-06-06 10:09] LABS: ANION GAP 3 mmol/L (5-15); BLOOD UREA NITROGEN 24 mg/dL (7-18); CALCIUM 8.3 MG/DL (8.5-10.1); CARBON DIOXIDE 37 MMOL/L (21-32); CHLORIDE 105 MMOL/L (98-107); CREATININE 1.5 MG/DL (0.55-1.30); POTASSIUM 3.4 MMOL/L (3.5-5.1); SODIUM 145 MMOL/L (136-145)
--- NOTE | 2019-06-06 10:18 | Nephrology Progress Note ---
Assessment/Plan Problem List: (1) Electrolyte imbalance (2) COPD (chronic obstructive pulmonary disease) (3) CO2 retention (4) CHF (congestive heart failure) (5) Obesity, morbid, BMI 50 or higher Assessment (1) Hypokalemia (2) CHF (congestive heart failure) (3) s/p Renal failure (4) Obesity, morbid, BMI 50 or higher (5) CO2 retention (6) COPD (chronic obstructive pulmonary disease) Obesity , NATASHA AT fib with FVR Congestive heart failure, likely diastolic dysfunction. EF 60% Recurrent NSVT. No syncope. Hypertension. Morbid obesity. COPD. Lipidemia. Plan Plan optimize cardiac and pulm status Keep BP in check Monitor lytes Diamox PO as needed per orders per cardio and pulmonary Subjective ROS Limited/Unobtainable: No Constitutional: Reports: malaise Objective Objective Last 24 Hour Vital Signs Date Time Temp Pulse Resp B/P (MAP) Pulse Ox O2 Delivery O2 Flow Rate FiO2 06/06/19 09:59 78 21 94 Facial 35 06/06/19 09:19 80 19 95 Facial 35 06/06/19 09:18 Bi-Pap 35 06/06/19 09:15 87 127/75 06/06/19 09:10 127/75 06/06/19 09:09 127/75 06/06/19 09:08 87 06/06/19 09:00 Nasal Cannula 3.0 06/06/19 08:00 97.9 87 20 127/75 (92) 96 06/06/19 08:00 3.0 06/06/19 05:15 77 25 96 Facial 35 06/06/19 04:12 3.0 06/06/19 04:11 97.5 81 20 133/74 (93) 96 06/06/19 03:30 78 24 95 Facial 35 06/06/19 01:45 70 25 96 Facial 35 06/05/19 23:30 75 25 95 Facial 35 06/05/19 22:20 72 25 96 Facial 35 06/05/19 21:00 82 114/68 06/05/19 20:14 Nasal Cannula 3.0 06/05/19 20:13 3.0 06/05/19 20:10 Nasal Cannula 3.0 06/05/19 19:45 99.0 82 20 114/68 (83) 96 06/05/19 17:09 149/101 06/05/19 16:00 98.8 99 20 149/101 (117) 95 06/05/19 16:00 3.0 06/05/19 12:00 98.2 77 19 149/93 (111) 95 06/05/19 12:00 3.0 Intake and Output 06/05/19 06/06/19 19:00 07:00 Intake Total 1200 ml 1200 ml Output Total 2200 ml Balance 1200 ml -1000 ml Intake Oral 1200 ml Other 1200 ml Output Urine Total 2200 ml # Voids 5 Laboratory Tests 06/06/19 09:00: White Blood Count 8.5, Red Blood Count 4.11L, Hemoglobin 10.5L, Hematocrit 32.0L , Mean Corpuscular Volume 78L, Mean Corpuscular Hemoglobin 25.5L, Mean Corpuscular Hemoglobin Concent 32.8, Red Cell Distribution Width 16.2H, Platelet Count 195, Mean Platelet Volume 8.8, Neutrophils (%) (Auto) 57.9, Lymphocytes (%) (Auto) 23.3, Monocytes (%) (Auto) 12.0H, Eosinophils (%) (Auto) 5.7H, Basophils (%) (Auto) 1.1, Sodium Level [Pending], Potassium Level [Pending ], Chloride Level [Pending], Carbon Dioxide Level [Pending], Blood Urea Nitrogen [Pending], Creatinine [Pending], Estimat Glomerular Filtration Rate [ Pending], Glucose Level [Pending], Calcium Level [Pending] Height (Feet): 5 Height (Inches): 10.00 Weight (Pounds): 433 General Appearance: no apparent distress Cardiovascular: normal rate Respiratory/Chest: decreased breath sounds Abdomen: distended Bebeto Yin MD Jun 06, 2019 10:18
[2019-06-06 10:31] LABS: ALANINE AMINOTRANSFERASE 17 U/L (12-78); ALKALINE PHOSPHATASE 49 U/L (46-116); ASPARTATE AMINO TRANSFERASE 10 U/L (15-37); BILIRUBIN,TOTAL 0.3 MG/DL (0.2-1.0); PHOSPHORUS 4.2 MG/DL (2.5-4.9)
[2019-06-06 10:34] LABS: BILIRUBIN,DIRECT < 0.1 MG/DL (0.0-0.3)
[2019-06-06 12:00] VITALS: BP 117/84
[2019-06-06] MEDS: oxyCODONE 5mg IR tab ORAL PRN ×2 (12:19→22:02)
--- NOTE | 2019-06-06 13:06 | General Progress Note ---
Assessment/Plan Assessment/Plan: S: I am feeling better O: remains in mild- sob with slight out of bed activity, no chest pain Physical ExamVital Signs General Appearance: alert, GCS 15, obese, Chronically Ill Head: normocephalicEyes: bilateral eye PERRL ENT: TMs + canals normal, uvula midlineNeck: full range of motion Respiratory: lungs clear, decreased breath soundsCardiovascular #1: edema - 1 + Edema Gastrointestinal: normal inspection, normal bowel sounds, non tender Musculoskeletal: morbid obesity, minimal non piting edema in LE. 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 Morbid obesity 4. HTN 5. Multiple joint OA 6. Afib 7. NATASHA 8. ARF : improved 10 . GI-DVT prophylaxia 11. Moderate- PAH 12. Hypokalemia Plan: High risk for Re- admission in future SNIF placement will decrease the likely wallace of readmission Will resume medication from prior admission Pulmonary, Cardiology and Nephrology notes reviewed Better BP control current aggressive diuresis and potassium supplementation Disposition : SNIF or patient his own plan of care Subjective Allergies: Coded Allergies: RIVAROXABAN (Verified Allergy, Unknown, 04/05/19) Objective Last 24 Hour Vital Signs Date Time Temp Pulse Resp B/P (MAP) Pulse Ox O2 Delivery O2 Flow Rate FiO2 06/06/19 12:00 97.3 84 20 117/84 (95) 94 06/06/19 12:00 3.0 06/06/19 09:59 78 21 94 Facial 35 06/06/19 09:19 80 19 95 Facial 35 06/06/19 09:18 Bi-Pap 35 06/06/19 09:15 87 127/75 06/06/19 09:10 127/75 06/06/19 09:09 127/75 06/06/19 09:08 87 06/06/19 09:00 Nasal Cannula 3.0 06/06/19 08:00 97.9 87 20 127/75 (92) 96 06/06/19 08:00 3.0 06/06/19 05:15 77 25 96 Facial 35 06/06/19 04:12 3.0 06/06/19 04:11 97.5 81 20 133/74 (93) 96 06/06/19 03:30 78 24 95 Facial 35 06/06/19 01:45 70 25 96 Facial 35 06/05/19 23:30 75 25 95 Facial 35 06/05/19 22:20 72 25 96 Facial 35 06/05/19 21:00 82 114/68 06/05/19 20:14 Nasal Cannula 3.0 06/05/19 20:13 3.0 06/05/19 20:10 Nasal Cannula 3.0 06/05/19 19:45 99.0 82 20 114/68 (83) 96 06/05/19 17:09 149/101 06/05/19 16:00 98.8 99 20 149/101 (117) 95 06/05/19 16:00 3.0 Intake and Output 06/05/19 06/06/19 19:00 07:00 Intake Total 1200 ml 1200 ml Output Total 2200 ml Balance 1200 ml -1000 ml Intake Oral 1200 ml Other 1200 ml Output Urine Total 2200 ml # Voids 5 Laboratory Tests 06/06/19 09:00: White Blood Count 8.5, Red Blood Count 4.11L, Hemoglobin 10.5L, Hematocrit 32.0L , Mean Corpuscular Volume 78L, Mean Corpuscular Hemoglobin 25.5L, Mean Corpuscular Hemoglobin Concent 32.8, Red Cell Distribution Width 16.2H, Platelet Count 195, Mean Platelet Volume 8.8, Neutrophils (%) (Auto) 57.9, Lymphocytes (%) (Auto) 23.3, Monocytes (%) (Auto) 12.0H, Eosinophils (%) (Auto) 5.7H, Basophils (%) (Auto) 1.1, Sodium Level 145, Potassium Level 3.4L, Chloride Level 105, Carbon Dioxide Level 37H, Anion Gap 3L, Blood Urea Nitrogen 24H, Creatinine 1.5H, Estimat Glomerular Filtration Rate > 60, Glucose Level 116H, Calcium Level 8.3L, Phosphorus Level 4.2, Magnesium Level 1.7L, Total Bilirubin 0.3, Direct Bilirubin < 0.1, Aspartate Amino Transf (AST/SGOT) 10L, Alanine Aminotransferase (ALT/SGPT) 17, Alkaline Phosphatase 49, Total Protein 6.2L, Albumin 3.0L Height (Feet): 5 Height (Inches): 10.00 Weight (Pounds): 433 Desirae Haro MD Jun 06, 2019 13:06
--- NOTE | 2019-06-06 15:16 | Pulmonology Progress Note ---
Assessment/Plan Assessment/Plan Pulmonary Progress Note Assessment/Plan Problem List: * CHF * Edema * Chronic hypercapnic respiratory failure * Possible COPD * Afib Plan: * Cont BiPAP * Monitor ABG * Monitor volumes, diuresis per cardiology/renal * monitor renal function * No evidence of infection * SNF placement Subjective ROS Limited/Unobtainable: No Interval Events: Feels short of breath. using BiPAP. Allergies: Coded Allergies: RIVAROXABAN (Verified Allergy, Unknown, 04/05/19) All Systems: reviewed and negative except above Objective Vital Signs Noted General Appearance: no acute distress HEENT: mucous membranes moist Respiratory/Chest: lungs clear Cardiovascular: normal rate Abdomen: soft, non tender Extremities: other - chronic edema Neurologic/Psychiatric: alert Microbiology Date/Time Source Procedure Growth Status 06/01/19 01:55 Nasal Nares MRSA Culture - Final NO METHICILLIN RESISTANT STAPH AUREUS... Complete 06/01/19 01:55 Rectum - Final NO CARBAPENEM-RESISTANT ENTEROBACTERI... Complete 06/01/19 01:55 Rectum VRE Culture - Final Enterococcus Faecium - Vre Complete Current Medications Medications (Trade) Dose Ordered Sig/David Route PRN Reason Start Time Stop Time Status Last Admin Dose Admin Acetaminophen (Tylenol) 500 mg Q4H PRN ORAL Mild Pain/Temp > 100.5 06/01/19 05:00 07/01/19 04:59 06/03/19 00:29 Acetaminophen/ Hydrocodone Bitart ([place] 10/325) 1 tab Q4H PRN ORAL moderate pain 06/01/19 09:00 06/08/19 08:59 06/03/19 09:38 Albuterol/ Ipratropium (Albuterol/ Ipratropium) 3 ml Q4H PRN HHN Shortness of Breath 06/02/19 16:00 06/07/19 15:59 06/02/19 16:32 Apixaban (Eliquis) 5 mg BID ORAL 06/01/19 18:00 07/01/19 17:59 06/03/19 09:27 Atorvastatin Calcium (Lipitor) 40 mg BEDTIME ORAL 06/01/19 21:00 07/01/19 20:59 06/02/19 21:00 Carvedilol (Coreg) 25 mg EVERY 12 HOURS ORAL 06/01/19 21:00 2/28/20 20:59 06/03/19 09:27 Clonidine HCl (Catapres TTS-3) 1 patch QWEEK TDERMAL 06/01/19 12:00 07/01/19 11:59 06/01/19 13:37 Clonidine HCl (Catapres Tab) 0.1 mg Q4H PRN ORAL For High Blood Pressure 06/01/19 09:15 07/01/19 09:14 Digoxin (Lanoxin) 0.125 mg DAILY ORAL 06/02/19 09:00 07/02/19 08:59 06/03/19 09:27 Docusate Sodium (Colace) 100 mg THREE TIMES A DAY ORAL 06/01/19 09:32 07/01/19 09:31 06/03/19 09:26 Furosemide (Lasix) 80 mg BID IV 06/02/19 09:00 07/01/19 20:59 06/03/19 09:28 Gabapentin (Neurontin) 300 mg THREE TIMES A DAY ORAL 06/01/19 09:33 07/01/19 09:32 06/03/19 09:27 Hydralazine HCl (Apresoline) 100 mg BID ORAL 06/03/19 18:00 07/01/19 13:59 Irbesartan (Avapro) 300 mg DAILY ORAL 06/02/19 09:00 07/02/19 08:59 06/03/19 09:28 Oxycodone HCl (Roxicodone) 5 mg Q4H PRN ORAL Breakthrough Pain 06/01/19 15:55 06/08/19 15:54 06/03/19 00:27 Potassium Chloride (K-Dur) 40 meq BID ORAL 06/02/19 18:00 07/03/19 08:59 06/03/19 09:27 Subjective ROS Limited/Unobtainable: No Allergies: Coded Allergies: RIVAROXABAN (Verified Allergy, Unknown, 04/05/19) Objective Last 24 Hour Vital Signs Date Time Temp Pulse Resp B/P (MAP) Pulse Ox O2 Delivery O2 Flow Rate FiO2 06/06/19 12:00 97.3 84 20 117/84 (95) 94 06/06/19 12:00 3.0 06/06/19 09:59 78 21 94 Facial 35 06/06/19 09:19 80 19 95 Facial 35 06/06/19 09:18 Bi-Pap 35 06/06/19 09:15 87 127/75 06/06/19 09:10 127/75 06/06/19 09:09 127/75 06/06/19 09:08 87 06/06/19 09:00 Nasal Cannula 3.0 06/06/19 08:00 97.9 87 20 127/75 (92) 96 06/06/19 08:00 3.0 06/06/19 05:15 77 25 96 Facial 35 06/06/19 04:12 3.0 06/06/19 04:11 97.5 81 20 133/74 (93) 96 06/06/19 03:30 78 24 95 Facial 35 06/06/19 01:45 70 25 96 Facial 35 06/05/19 23:30 75 25 95 Facial 35 06/05/19 22:20 72 25 96 Facial 35 06/05/19 21:00 82 114/68 06/05/19 20:14 Nasal Cannula 3.0 06/05/19 20:13 3.0 06/05/19 20:10 Nasal Cannula 3.0 06/05/19 19:45 99.0 82 20 114/68 (83) 96 06/05/19 17:09 149/101 06/05/19 16:00 98.8 99 20 149/101 (117) 95 06/05/19 16:00 3.0 Intake and Output 06/05/19 06/06/19 19:00 07:00 Intake Total 1200 ml 1200 ml Output Total 2200 ml Balance 1200 ml -1000 ml Intake Oral 1200 ml Other 1200 ml Output Urine Total 2200 ml # Voids 5 Laboratory Tests 06/06/19 09:00: White Blood Count 8.5, Red Blood Count 4.11L, Hemoglobin 10.5L, Hematocrit 32.0L , Mean Corpuscular Volume 78L, Mean Corpuscular Hemoglobin 25.5L, Mean Corpuscular Hemoglobin Concent 32.8, Red Cell Distribution Width 16.2H, Platelet Count 195, Mean Platelet Volume 8.8, Neutrophils (%) (Auto) 57.9, Lymphocytes (%) (Auto) 23.3, Monocytes (%) (Auto) 12.0H, Eosinophils (%) (Auto) 5.7H, Basophils (%) (Auto) 1.1, Sodium Level 145, Potassium Level 3.4L, Chloride Level 105, Carbon Dioxide Level 37H, Anion Gap 3L, Blood Urea Nitrogen 24H, Creatinine 1.5H, Estimat Glomerular Filtration Rate > 60, Glucose Level 116H, Calcium Level 8.3L, Phosphorus Level 4.2, Magnesium Level 1.7L, Total Bilirubin 0.3, Direct Bilirubin < 0.1, Aspartate Amino Transf (AST/SGOT) 10L, Alanine Aminotransferase (ALT/SGPT) 17, Alkaline Phosphatase 49, Total Protein 6.2L, Albumin 3.0L Current Medications Medications (Trade) Dose Ordered Sig/David Route PRN Reason Start Time Stop Time Status Last Admin Dose Admin Acetaminophen (Tylenol) 500 mg Q4H PRN ORAL Mild Pain/Temp > 100.5 06/04/19 02:30 07/01/19 02:29 Acetaminophen/ Hydrocodone Bitart ([place] 10/325) 1 tab Q4H PRN ORAL moderate pain 06/06/19 10:30 06/10/19 10:29 Albuterol/ Ipratropium (Albuterol/ Ipratropium) 3 ml Q4H PRN HHN Shortness of Breath 06/04/19 02:30 06/07/19 02:29 Apixaban (Eliquis) 5 mg BID ORAL 06/04/19 09:00 07/01/19 17:59 06/06/19 09:09 Atorvastatin Calcium (Lipitor) 40 mg BEDTIME ORAL 06/04/19 21:00 07/01/19 20:59 06/05/19 21:00 Carvedilol (Coreg) 25 mg EVERY 12 HOURS ORAL 06/04/19 09:00 07/01/19 20:59 06/06/19 09:15 Clonidine HCl (Catapres TTS-3) 1 patch QWEEK TDERMAL 06/08/19 12:00 07/01/19 11:59 Clonidine HCl (Catapres Tab) 0.1 mg Q4H PRN ORAL For High Blood Pressure 06/04/19 01:15 07/01/19 09:14 Digoxin (Lanoxin) 0.125 mg DAILY ORAL 06/04/19 09:00 07/02/19 08:59 06/06/19 09:08 Docusate Sodium (Colace) 100 mg THREE TIMES A DAY ORAL 06/04/19 09:00 07/01/19 09:31 2/3/20 12:18 Furosemide (Lasix) 80 mg BID IV 06/04/19 09:00 07/01/19 20:59 06/06/19 09:10 Gabapentin (Neurontin) 300 mg THREE TIMES A DAY ORAL 06/04/19 09:00 07/01/19 09:32 06/06/19 12:19 Hydralazine HCl (Apresoline) 100 mg Q12HR ORAL 06/06/19 21:00 07/06/19 20:59 Irbesartan (Avapro) 300 mg DAILY ORAL 06/04/19 09:00 07/02/19 08:59 06/06/19 09:09 Oxycodone HCl (Roxicodone) 5 mg Q4H PRN ORAL Breakthrough Pain 06/06/19 10:30 06/10/19 10:29 06/06/19 12:19 Potassium Chloride (K-Dur) 40 meq BID ORAL 06/04/19 09:00 07/03/19 08:59 06/06/19 09:10 Mahesh Wise MD Jun 06, 2019 15:16
[2019-06-06] MEDS: Acetaminophen 500mg (ES) tab ORAL PRN (17:12)
[2019-06-06] MEDS ORDERED: acetaZOLAMIDE 125mg tab ORAL SCH (18:00)
[2019-06-06 20:30] VITALS: BP 149/103
[2019-06-06] MEDS: HydrALAZINE 50mg tab ORAL SCH (20:40)
[2019-06-06] MEDS: Atorvastatin 20mg tab ORAL SCH (20:40)
[2019-06-07 04:00] VITALS: BP 136/82
[2019-06-07 08:00] VITALS: BP 141/83
[2019-06-07] MEDS: Digoxin 0.125mg tab ORAL SCH (08:20)
[2019-06-07] MEDS: Irbesartan 150mg tablet ORAL SCH (08:20)
[2019-06-07] MEDS: Eliquis 5mg tablet ORAL SCH ×2 (08:21→17:37)
[2019-06-07] MEDS: Docusate 100mg cap ORAL SCH ×3 (08:21→17:37)
[2019-06-07] MEDS: HydrALAZINE 50mg tab ORAL SCH ×2 (08:21→20:28)
[2019-06-07] MEDS: Carvedilol 25mg Tab ORAL SCH ×2 (08:22→20:28)
[2019-06-07] MEDS: oxyCODONE 5mg IR tab ORAL PRN ×2 (08:23→17:39)
--- NOTE | 2019-06-07 08:59 | General Progress Note ---
Assessment/Plan Assessment/Plan: (1) Lumbar DDD (2) Lumbar Spondylosis (3) Morbid obesity Patient to be continued on oxycodone and [place]. D/w Dr. Stack and he concurred. Subjective Date patient seen: Jun 07, 2019 Time patient seen: 07:45 - am Constitutional: Reports: weakness HEENT: Reports: no symptoms Cardiovascular: Reports: no symptoms Respiratory: Reports: shortness of breath Gastrointestinal/Abdominal: Reports: no symptoms Genitourinary: Reports: no symptoms Neurologic/Psychiatric: Reports: no symptoms Endocrine: Reports: no symptoms Hematologic/Lymphatic: Reports: no symptoms Allergies: Coded Allergies: RIVAROXABAN (Verified Allergy, Unknown, 04/05/19) Subjective Patient showing no signs of pain or distress. Pain has been at a moderate level tolerated on the [place] and Oxycodone. No new complaints at this time. Objective Last 24 Hour Vital Signs Date Time Temp Pulse Resp B/P (MAP) Pulse Ox O2 Delivery O2 Flow Rate FiO2 06/07/19 08:22 91 141/83 06/07/19 08:21 141/83 06/07/19 08:20 141/83 06/07/19 08:20 91 06/07/19 05:16 70 17 96 Facial 35 06/07/19 04:00 98.1 79 22 136/82 (100) 95 06/07/19 04:00 3.0 06/07/19 03:00 74 18 95 Facial 35 06/07/19 00:30 72 20 93 Facial 35 06/06/19 21:00 Nasal Cannula 3.0 06/06/19 20:40 149/103 06/06/19 20:40 82 149/103 06/06/19 20:37 Nasal Cannula 2.0 28 06/06/19 20:31 3.0 06/06/19 20:30 98.1 82 20 149/103 (118) 95 06/06/19 17:42 97.3 06/06/19 16:00 3.0 06/06/19 12:00 97.3 84 20 117/84 (95) 94 06/06/19 12:00 3.0 06/06/19 09:59 78 21 94 Facial 35 06/06/19 09:19 80 19 95 Facial 35 06/06/19 09:18 Bi-Pap 35 06/06/19 09:15 87 127/75 06/06/19 09:10 127/75 06/06/19 09:09 127/75 06/06/19 09:08 87 06/06/19 09:00 Nasal Cannula 3.0 Intake and Output 06/06/19 06/07/19 19:00 07:00 Intake Total 1500 ml 2700 ml Output Total 2200 ml Balance 1500 ml 500 ml Intake Oral 1200 ml Other 1500 ml 1500 ml Output Urine Total 2200 ml # Voids 5 # Bowel Movements 2 Laboratory Tests 06/06/19 09:00: White Blood Count 8.5, Red Blood Count 4.11L, Hemoglobin 10.5L, Hematocrit 32.0L , Mean Corpuscular Volume 78L, Mean Corpuscular Hemoglobin 25.5L, Mean Corpuscular Hemoglobin Concent 32.8, Red Cell Distribution Width 16.2H, Platelet Count 195, Mean Platelet Volume 8.8, Neutrophils (%) (Auto) 57.9, Lymphocytes (%) (Auto) 23.3, Monocytes (%) (Auto) 12.0H, Eosinophils (%) (Auto) 5.7H, Basophils (%) (Auto) 1.1, Sodium Level 145, Potassium Level 3.4L, Chloride Level 105, Carbon Dioxide Level 37H, Anion Gap 3L, Blood Urea Nitrogen 24H, Creatinine 1.5H, Estimat Glomerular Filtration Rate > 60, Glucose Level 116H, Calcium Level 8.3L, Phosphorus Level 4.2, Magnesium Level 1.7L, Total Bilirubin 0.3, Direct Bilirubin < 0.1, Aspartate Amino Transf (AST/SGOT) 10L, Alanine Aminotransferase (ALT/SGPT) 17, Alkaline Phosphatase 49, Total Protein 6.2L, Albumin 3.0L 06/07/19 06:25: Digoxin Level 0.4L Height (Feet): 5 Height (Inches): 10.00 Weight (Pounds): 433 General Appearance: no apparent distress, alert EENT: PERRL/EOMI, normal ENT inspection Neck: non-tender, normal alignment Cardiovascular: normal rate, regular rhythm Respiratory/Chest: decreased breath sounds Abdomen: non tender, soft Edema: moderate edema Neurologic: alert, oriented x 3 Skin: warm/dry Osito Sultana Jun 07, 2019 08:59
--- NOTE | 2019-06-07 10:20 | Cardiac Electrophysiology PN ---
Assessment/Plan Assessment/Plan 1. Paroxysmal atrial fibrillation, converted to sinus rhythm with frequent PACs. Continue digoxin 0.125 mg daily, Coreg 25 mg b.i.d. and Eliquis 5 mg b.i.d. 2. CHF exacerbation with diastolic dysfunction and hypertensive heart disease. Continue Lasix 80 mg IV b.i.d. until discharge 3. Hypertension, on Avapro 300 mg daily, Coreg 25 bid, clonidine patch weekly, and Hydralazine 100 bid 4. Exacerbation of obstructive sleep apnea. 5. COPD. 6. Morbid obesity DW RN OK to DC from cardiac standpoint Subjective Subjective Diuresing well on iv Lasix 80 bid. SOB is better.Wants to go home Objective Last 24 Hour Vital Signs Date Time Temp Pulse Resp B/P (MAP) Pulse Ox O2 Delivery O2 Flow Rate FiO2 06/07/19 09:00 Nasal Cannula 3.0 06/07/19 08:22 91 141/83 06/07/19 08:21 141/83 06/07/19 08:20 141/83 06/07/19 08:20 91 06/07/19 08:00 98.3 91 18 141/83 (102) 95 06/07/19 08:00 3.0 06/07/19 05:16 70 17 96 Facial 35 06/07/19 04:00 98.1 79 22 136/82 (100) 95 06/07/19 04:00 3.0 06/07/19 03:00 74 18 95 Facial 35 06/07/19 00:30 72 20 93 Facial 35 06/06/19 21:00 Nasal Cannula 3.0 06/06/19 20:40 149/103 06/06/19 20:40 82 149/103 06/06/19 20:37 Nasal Cannula 2.0 28 06/06/19 20:31 3.0 06/06/19 20:30 98.1 82 20 149/103 (118) 95 06/06/19 17:42 97.3 06/06/19 16:00 3.0 06/06/19 12:00 97.3 84 20 117/84 (95) 94 06/06/19 12:00 3.0 Intake and Output 06/06/19 06/07/19 19:00 07:00 Intake Total 1500 ml 2700 ml Output Total 2200 ml Balance 1500 ml 500 ml Intake Oral 1200 ml Other 1500 ml 1500 ml Output Urine Total 2200 ml # Voids 5 # Bowel Movements 2 Laboratory Tests Test 06/07/19 06:25 Digoxin Level 0.4 NG/ML (0.5-2.0) L Objective HEAD AND NECK: Shows positive JVD. LUNGS: Coarse rhonchi. CARDIOVASCULAR: Shows regular S1 and S2 with no gallop or murmur. ABDOMEN: Obese. EXTREMITIES: 2+ pitting edema. Sandor Doll MD Jun 07, 2019 10:20
--- NOTE | 2019-06-07 10:47 | General Progress Note ---
Assessment/Plan Assessment/Plan: S: I am feeling better O: remains in mild- sob with slight out of bed activity, no chest pain Physical ExamVital Signs General Appearance: alert, GCS 15, obese, Chronically Ill Head: normocephalicEyes: bilateral eye PERRL ENT: TMs + canals normal, uvula midlineNeck: full range of motion Respiratory: lungs clear, decreased breath soundsCardiovascular #1: edema - 1 + Edema Gastrointestinal: normal inspection, normal bowel sounds, non tender Musculoskeletal: morbid obesity, minimal non piting edema in LE. 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 Morbid obesity 4. HTN 5. Multiple joint OA 6. Afib 7. NATASHA 8. ARF : improved 10 . GI-DVT prophylaxia 11. Moderate- PAH 12. Hypokalemia Plan: High risk for Re- admission in future SNIF placement will decrease the likely wallace of readmission Will resume medication from prior admission Pulmonary, Cardiology and Nephrology notes reviewed Better BP control current aggressive diuresis and potassium supplementation Disposition : SNIF or to patient's his own plan of care Subjective Allergies: Coded Allergies: RIVAROXABAN (Verified Allergy, Unknown, 04/05/19) Objective Last 24 Hour Vital Signs Date Time Temp Pulse Resp B/P (MAP) Pulse Ox O2 Delivery O2 Flow Rate FiO2 06/07/19 09:00 Nasal Cannula 3.0 06/07/19 08:22 91 141/83 06/07/19 08:21 141/83 06/07/19 08:20 141/83 06/07/19 08:20 91 06/07/19 08:00 98.3 91 18 141/83 (102) 95 06/07/19 08:00 3.0 06/07/19 05:16 70 17 96 Facial 35 06/07/19 04:00 98.1 79 22 136/82 (100) 95 06/07/19 04:00 3.0 06/07/19 03:00 74 18 95 Facial 35 06/07/19 00:30 72 20 93 Facial 35 06/06/19 21:00 Nasal Cannula 3.0 06/06/19 20:40 149/103 06/06/19 20:40 82 149/103 06/06/19 20:37 Nasal Cannula 2.0 28 06/06/19 20:31 3.0 06/06/19 20:30 98.1 82 20 149/103 (118) 95 06/06/19 17:42 97.3 06/06/19 16:00 3.0 06/06/19 12:00 97.3 84 20 117/84 (95) 94 06/06/19 12:00 3.0 Intake and Output 06/06/19 06/07/19 19:00 07:00 Intake Total 1500 ml 2700 ml Output Total 2200 ml Balance 1500 ml 500 ml Intake Oral 1200 ml Other 1500 ml 1500 ml Output Urine Total 2200 ml # Voids 5 # Bowel Movements 2 Laboratory Tests 06/07/19 06:25: Digoxin Level 0.4L Height (Feet): 5 Height (Inches): 10.00 Weight (Pounds): 433 Desirae Haro MD Jun 07, 2019 10:47
[2019-06-07 12:00] VITALS: BP 126/73
--- NOTE | 2019-06-07 14:50 | Nephrology Progress Note ---
Assessment/Plan Problem List: (1) Electrolyte imbalance (2) COPD (chronic obstructive pulmonary disease) (3) CO2 retention (4) CHF (congestive heart failure) (5) Obesity, morbid, BMI 50 or higher Assessment (1) Hypokalemia (2) CHF (congestive heart failure) (3) s/p Renal failure (4) Obesity, morbid, BMI 50 or higher (5) CO2 retention (6) COPD (chronic obstructive pulmonary disease) Obesity , NATASHA AT fib with FVR Congestive heart failure, likely diastolic dysfunction. EF 60% Recurrent NSVT. No syncope. Hypertension. Morbid obesity. COPD. Lipidemia. Plan Plan optimize cardiac and pulm status Keep BP in check Monitor lytes Diamox PO as needed per orders per cardio and pulmonary Subjective ROS Limited/Unobtainable: No Constitutional: Reports: malaise Objective Objective Last 24 Hour Vital Signs Date Time Temp Pulse Resp B/P (MAP) Pulse Ox O2 Delivery O2 Flow Rate FiO2 06/07/19 12:00 97.6 76 18 126/73 (90) 96 06/07/19 12:00 3.0 06/07/19 09:03 Nasal Cannula 2.0 28 06/07/19 09:00 Nasal Cannula 3.0 06/07/19 08:22 91 141/83 06/07/19 08:21 141/83 06/07/19 08:20 141/83 06/07/19 08:20 91 06/07/19 08:00 98.3 91 18 141/83 (102) 95 06/07/19 08:00 3.0 06/07/19 05:16 70 17 96 Facial 35 06/07/19 04:00 98.1 79 22 136/82 (100) 95 06/07/19 04:00 3.0 06/07/19 03:00 74 18 95 Facial 35 06/07/19 00:30 72 20 93 Facial 35 06/06/19 21:00 Nasal Cannula 3.0 06/06/19 20:40 149/103 06/06/19 20:40 82 149/103 06/06/19 20:37 Nasal Cannula 2.0 28 06/06/19 20:31 3.0 06/06/19 20:30 98.1 82 20 149/103 (118) 95 06/06/19 17:42 97.3 06/06/19 16:00 3.0 Intake and Output 06/06/19 06/07/19 19:00 07:00 Intake Total 1500 ml 2700 ml Output Total 2200 ml Balance 1500 ml 500 ml Intake Oral 1200 ml Other 1500 ml 1500 ml Output Urine Total 2200 ml # Voids 5 # Bowel Movements 2 Laboratory Tests 06/07/19 06:25: Digoxin Level 0.4L Height (Feet): 5 Height (Inches): 10.00 Weight (Pounds): 433 General Appearance: no apparent distress Cardiovascular: normal rate Respiratory/Chest: decreased breath sounds Abdomen: soft Objective no change Bebeto Yin MD Jun 07, 2019 14:50
[2019-06-07 16:00] VITALS: BP 125/72
[2019-06-07] MEDS: Magnesium Oxide 400mg tab ORAL SCH (17:37)
[2019-06-07 20:08] VITALS: BP 167/81
[2019-06-07] MEDS: Atorvastatin 20mg tab ORAL SCH (20:28)
[2019-06-08] VITALS (8 sets, daily range): BP systolic 103–175; BP diastolic 49–108
[2019-06-08] MEDS: oxyCODONE 5mg IR tab ORAL PRN ×2 (03:28→21:47)
[2019-06-08] MEDS: Docusate 100mg cap ORAL SCH ×3 (08:17→17:11)
[2019-06-08] MEDS: Magnesium Oxide 400mg tab ORAL SCH ×3 (08:17→17:11)
[2019-06-08] MEDS: Eliquis 5mg tablet ORAL SCH ×2 (08:17→17:11)
[2019-06-08] MEDS: Carvedilol 25mg Tab ORAL SCH ×2 (08:18→20:37)
[2019-06-08] MEDS: HydrALAZINE 50mg tab ORAL SCH ×2 (08:18→20:36)
[2019-06-08] MEDS: Irbesartan 150mg tablet ORAL SCH (08:18)
[2019-06-08] MEDS: Acetaminophen 500mg (ES) tab ORAL PRN (08:19)
[2019-06-08] MEDS: Digoxin 0.125mg tab ORAL SCH (08:19)
[2019-06-08] MEDS ORDERED: Furosemide 40mg tab ONE (08:59)
--- NOTE | 2019-06-08 09:04 | General Progress Note ---
Assessment/Plan Assessment/Plan: (1) Lumbar DDD (2) Lumbar Spondylosis (3) Morbid obesity Patient to be continued on oxycodone and [place]. D/w Dr. Stack and he concurred. Subjective Date patient seen: Jun 08, 2019 Time patient seen: 08:15 - am Allergies: Coded Allergies: RIVAROXABAN (Verified Allergy, Unknown, 04/05/19) Subjective Constitutional: Reports: weakness HEENT: Reports: no symptoms Cardiovascular: Reports: no symptoms Respiratory: Reports: shortness of breath Gastrointestinal/Abdominal: Reports: no symptoms Genitourinary: Reports: no symptoms Neurologic/Psychiatric: Reports: no symptoms Endocrine: Reports: no symptoms Hematologic/Lymphatic: Reports: no symptoms Subjective In bed pain has been stable and tolerated on the [place] and Oxycodone. No new complaints at this time. Objective Last 24 Hour Vital Signs Date Time Temp Pulse Resp B/P (MAP) Pulse Ox O2 Delivery O2 Flow Rate FiO2 06/08/19 08:19 83 06/08/19 08:18 175/108 06/08/19 08:18 175/108 06/08/19 08:18 83 175/108 06/08/19 04:33 98.5 90 18 134/87 (103) 97 06/08/19 04:27 3.0 06/08/19 00:35 98.3 86 20 139/85 (103) 97 06/07/19 20:28 167/81 06/07/19 20:28 60 167/81 06/07/19 20:16 Nasal Cannula 3.0 32 06/07/19 20:09 3.0 06/07/19 20:08 98.2 60 18 167/81 (109) 99 06/07/19 18:30 Nasal Cannula 3.0 06/07/19 16:00 98.1 90 19 125/72 (89) 94 06/07/19 16:00 3.0 06/07/19 12:00 97.6 76 18 126/73 (90) 96 06/07/19 12:00 3.0 Intake and Output 06/07/19 06/08/19 19:00 07:00 Intake Total 1500 ml 1000 ml Balance 1500 ml 1000 ml Intake Oral 1000 ml Other 1500 ml # Voids 3 # Bowel Movements 1 Height (Feet): 5 Height (Inches): 10.00 Weight (Pounds): 438 Objective General Appearance: no apparent distress, alert EENT: PERRL/EOMI Neck: non-tender, normal alignment Cardiovascular: normal rate, regular rhythm Respiratory/Chest: decreased breath sounds Abdomen: non tender, soft Extremities: non-tender Edema: moderate edema Neurologic: alert, oriented x 3 Skin: warm/dry Osito Sultana Jun 08, 2019 09:04
[2019-06-08] MEDS: Furosemide 80mg tab ORAL SCH (09:20)
--- NOTE | 2019-06-08 11:12 | Nephrology Progress Note ---
Assessment/Plan Problem List: (1) Electrolyte imbalance (2) COPD (chronic obstructive pulmonary disease) (3) CO2 retention (4) CHF (congestive heart failure) (5) Obesity, morbid, BMI 50 or higher Assessment (1) Hypokalemia (2) CHF (congestive heart failure) (3) s/p Renal failure (4) Obesity, morbid, BMI 50 or higher (5) CO2 retention (6) COPD (chronic obstructive pulmonary disease) Obesity , NATASHA AT fib with FVR Congestive heart failure, likely diastolic dysfunction. EF 60% Recurrent NSVT. No syncope. Hypertension. Morbid obesity. COPD. Lipidemia. Plan Plan optimize cardiac and pulm status Keep BP in check Monitor lytes Diamox PO as needed per orders per cardio and pulmonary Subjective ROS Limited/Unobtainable: No Constitutional: Reports: malaise, weakness Objective Objective Last 24 Hour Vital Signs Date Time Temp Pulse Resp B/P (MAP) Pulse Ox O2 Delivery O2 Flow Rate FiO2 06/08/19 09:00 122/49 (73) 06/08/19 09:00 3.0 06/08/19 08:49 98.5 06/08/19 08:19 83 06/08/19 08:18 175/108 06/08/19 08:18 175/108 06/08/19 08:18 83 175/108 06/08/19 08:00 97.9 83 18 175/108 (130) 95 06/08/19 04:33 98.5 90 18 134/87 (103) 97 06/08/19 04:27 3.0 06/08/19 00:35 98.3 86 20 139/85 (103) 97 06/07/19 20:28 167/81 06/07/19 20:28 60 167/81 06/07/19 20:16 Nasal Cannula 3.0 32 06/07/19 20:09 3.0 06/07/19 20:08 98.2 60 18 167/81 (109) 99 06/07/19 18:30 Nasal Cannula 3.0 06/07/19 16:00 98.1 90 19 125/72 (89) 94 06/07/19 16:00 3.0 06/07/19 12:00 97.6 76 18 126/73 (90) 96 06/07/19 12:00 3.0 Intake and Output 06/07/19 06/08/19 19:00 07:00 Intake Total 1500 ml 1000 ml Balance 1500 ml 1000 ml Intake Oral 1000 ml Other 1500 ml # Voids 3 # Bowel Movements 1 Height (Feet): 5 Height (Inches): 10.00 Weight (Pounds): 438 General Appearance: no apparent distress Cardiovascular: normal rate - 83 rate Respiratory/Chest: decreased breath sounds Abdomen: distended Objective no change Bebeto Yin MD Jun 08, 2019 11:12
[2019-06-08] MEDS: HYDROcodone/Acetamin 10/325 tab ORAL PRN ×2 (13:34→19:58)
--- NOTE | 2019-06-08 14:38 | Cardiac Electrophysiology PN ---
Assessment/Plan Assessment/Plan 1. Paroxysmal atrial fibrillation, converted to sinus rhythm with frequent PACs. Continue digoxin 0.125 mg daily, Coreg 25 mg b.i.d. and Eliquis 5 mg b.i.d. 2. CHF exacerbation due to diastolic dysfunction and hypertensive heart disease. Continue Lasix 80 mg IV b.i.d. until discharge 3. Hypertension, on Avapro 300 mg daily, Coreg 25 bid, clonidine patch weekly, and Hydralazine 100 bid 4. Obstructive sleep apnea. 5. COPD.On BIPAP 6. Morbid obesity DW RN OK to DC from cardiac standpoint Subjective Subjective Diuresing well on iv Lasix 80 bid. On BIPAP on NMB Objective Last 24 Hour Vital Signs Date Time Temp Pulse Resp B/P (MAP) Pulse Ox O2 Delivery O2 Flow Rate FiO2 06/08/19 14:04 97.2 06/08/19 13:39 87 148/75 (99) 06/08/19 13:35 148/75 06/08/19 12:00 3.0 06/08/19 11:45 97.2 80 20 103/56 (72) 94 06/08/19 09:00 122/49 (73) 06/08/19 09:00 3.0 06/08/19 09:00 Nasal Cannula 3.0 06/08/19 08:49 98.5 06/08/19 08:19 83 06/08/19 08:18 175/108 06/08/19 08:18 175/108 06/08/19 08:18 83 175/108 06/08/19 08:00 97.9 83 18 175/108 (130) 95 06/08/19 04:33 98.5 90 18 134/87 (103) 97 06/08/19 04:27 3.0 06/08/19 00:35 98.3 86 20 139/85 (103) 97 06/07/19 20:28 167/81 06/07/19 20:28 60 167/81 06/07/19 20:16 Nasal Cannula 3.0 32 06/07/19 20:09 3.0 06/07/19 20:08 98.2 60 18 167/81 (109) 99 06/07/19 18:30 Nasal Cannula 3.0 06/07/19 16:00 98.1 90 19 125/72 (89) 94 06/07/19 16:00 3.0 Intake and Output 06/07/19 06/08/19 19:00 07:00 Intake Total 1500 ml 1000 ml Balance 1500 ml 1000 ml Intake Oral 1000 ml Other 1500 ml # Voids 3 # Bowel Movements 1 Objective HEAD AND NECK: Shows positive JVD. LUNGS: Coarse rhonchi. CARDIOVASCULAR: Shows regular S1 and S2 with no gallop or murmur. ABDOMEN: Obese. EXTREMITIES: 2+ pitting edema. Sandor Doll MD Jun 08, 2019 14:38
--- NOTE | 2019-06-08 15:08 | General Progress Note ---
Assessment/Plan Assessment/Plan: S: I am feeling better O: remains in mild- sob with slight out of bed activity, no chest pain Physical ExamVital Signs General Appearance: alert, GCS 15, obese, Chronically Ill Head: normocephalicEyes: bilateral eye PERRL ENT: TMs + canals normal, uvula midlineNeck: full range of motion Respiratory: lungs clear, decreased breath soundsCardiovascular #1: edema - 1 + Edema Gastrointestinal: normal inspection, normal bowel sounds, non tender Musculoskeletal: morbid obesity, minimal non piting edema in LE. 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 Morbid obesity 4. HTN 5. Multiple joint OA 6. Afib 7. NATASHA 8. ARF : improved 10 . GI-DVT prophylaxia 11. Moderate- PAH 12. Hypokalemia Plan: High risk for Re- admission in future SNIF placement will decrease the likely wallace of readmission Will resume medication from prior admission Pulmonary, Cardiology and Nephrology notes reviewed Better BP control current aggressive diuresis and potassium supplementation Disposition : SNIF or to patient's his own plan of care Subjective Allergies: Coded Allergies: RIVAROXABAN (Verified Allergy, Unknown, 04/05/19) Objective Last 24 Hour Vital Signs Date Time Temp Pulse Resp B/P (MAP) Pulse Ox O2 Delivery O2 Flow Rate FiO2 06/08/19 14:04 97.2 06/08/19 13:39 87 148/75 (99) 06/08/19 13:35 148/75 06/08/19 12:00 3.0 06/08/19 11:45 97.2 80 20 103/56 (72) 94 06/08/19 09:00 122/49 (73) 06/08/19 09:00 3.0 06/08/19 09:00 Nasal Cannula 3.0 06/08/19 08:49 98.5 06/08/19 08:19 83 06/08/19 08:18 175/108 06/08/19 08:18 175/108 06/08/19 08:18 83 175/108 06/08/19 08:00 97.9 83 18 175/108 (130) 95 06/08/19 04:33 98.5 90 18 134/87 (103) 97 06/08/19 04:27 3.0 06/08/19 00:35 98.3 86 20 139/85 (103) 97 06/07/19 20:28 167/81 06/07/19 20:28 60 167/81 06/07/19 20:16 Nasal Cannula 3.0 32 06/07/19 20:09 3.0 06/07/19 20:08 98.2 60 18 167/81 (109) 99 06/07/19 18:30 Nasal Cannula 3.0 06/07/19 16:00 98.1 90 19 125/72 (89) 94 06/07/19 16:00 3.0 Intake and Output 06/07/19 06/08/19 19:00 07:00 Intake Total 1500 ml 1000 ml Balance 1500 ml 1000 ml Intake Oral 1000 ml Other 1500 ml # Voids 3 # Bowel Movements 1 Height (Feet): 5 Height (Inches): 10.00 Weight (Pounds): 438 Desirae Haro MD Jun 08, 2019 15:08
[2019-06-08] MEDS: Atorvastatin 20mg tab ORAL SCH (20:36)
[2019-06-09] VITALS: BP 109/63
[2019-06-09 04:00] VITALS: BP 146/93
[2019-06-09] MEDS: HYDROcodone/Acetamin 10/325 tab ORAL PRN ×2 (06:00→12:17)
[2019-06-09 08:00] VITALS: BP 124/68
[2019-06-09] MEDS: Furosemide 80mg tab ORAL SCH (08:11)
[2019-06-09] MEDS: Magnesium Oxide 400mg tab ORAL SCH ×3 (08:11→18:07)
[2019-06-09] MEDS: Eliquis 5mg tablet ORAL SCH ×2 (08:11→18:07)
[2019-06-09] MEDS: Irbesartan 150mg tablet ORAL SCH (08:12)
[2019-06-09] MEDS: Digoxin 0.125mg tab ORAL SCH (08:12)
[2019-06-09] MEDS: Docusate 100mg cap ORAL SCH ×3 (08:13→18:07)
[2019-06-09] MEDS: HydrALAZINE 50mg tab ORAL SCH ×2 (08:13→20:17)
[2019-06-09] MEDS: Carvedilol 25mg Tab ORAL SCH ×2 (08:13→20:18)
--- NOTE | 2019-06-09 10:16 | Nephrology Progress Note ---
Assessment/Plan Problem List: (1) Electrolyte imbalance (2) COPD (chronic obstructive pulmonary disease) (3) CO2 retention (4) CHF (congestive heart failure) (5) Obesity, morbid, BMI 50 or higher Assessment (1) Hypokalemia (2) CHF (congestive heart failure) (3) s/p Renal failure (4) Obesity, morbid, BMI 50 or higher (5) CO2 retention (6) COPD (chronic obstructive pulmonary disease) Obesity , NATASHA AT fib with FVR Congestive heart failure, likely diastolic dysfunction. EF 60% Recurrent NSVT. No syncope. Hypertension. Morbid obesity. COPD. Lipidemia. Plan Plan optimize cardiac and pulm status Keep BP in check Monitor lytes Diamox PO as needed per orders per cardio and pulmonary Subjective ROS Limited/Unobtainable: No Constitutional: Reports: malaise Objective Objective Last 24 Hour Vital Signs Date Time Temp Pulse Resp B/P (MAP) Pulse Ox O2 Delivery O2 Flow Rate FiO2 06/09/19 08:13 124/68 06/09/19 08:13 88 124/68 06/09/19 08:12 124/68 06/09/19 08:12 88 06/09/19 08:00 99.0 88 20 124/68 (86) 06/09/19 08:00 3.0 06/09/19 06:30 98.5 06/09/19 04:00 98.5 77 20 146/93 (110) 98 06/09/19 04:00 3.0 06/09/19 03:11 78 20 95 Facial 35 06/09/19 00:00 98.3 81 20 109/63 (78) 95 06/08/19 23:02 82 22 95 Facial 35 06/08/19 21:00 Nasal Cannula 3.0 06/08/19 20:37 84 157/98 06/08/19 20:36 157/98 06/08/19 20:18 85 25 96 Facial 35 06/08/19 20:17 96 Bi-Pap 35 06/08/19 20:00 3.0 06/08/19 20:00 98.2 84 20 157/98 (117) 97 06/08/19 16:04 3.0 06/08/19 15:46 97.8 84 20 135/75 (95) 97 06/08/19 13:39 87 148/75 (99) 06/08/19 13:35 148/75 06/08/19 12:00 3.0 06/08/19 11:45 97.2 80 20 103/56 (72) 94 Intake and Output 06/08/19 06/09/19 19:00 07:00 Intake Total 840 ml 240 ml Output Total 600 ml Balance 240 ml 240 ml Intake Oral 840 ml 240 ml Output Urine Total 600 ml # Voids 2 4 # Bowel Movements 3 Height (Feet): 5 Height (Inches): 10.00 Weight (Pounds): 438 General Appearance: no apparent distress Cardiovascular: normal rate Respiratory/Chest: decreased breath sounds Abdomen: distended Objective no change Bebeto Yin MD Jun 09, 2019 10:16
--- NOTE | 2019-06-09 10:41 | Cardiac Electrophysiology PN ---
Assessment/Plan Assessment/Plan 1. Paroxysmal atrial fibrillation, converted to sinus rhythm with frequent PACs. Continue digoxin 0.125 mg daily, Coreg 25 mg b.i.d. and Eliquis 5 mg b.i.d. 2. CHF exacerbation due to diastolic dysfunction and hypertensive heart disease. Decrease Lasix to 80 mg IV daily and check BMP 3. Hypertension, on Avapro 300 mg daily, Coreg 25 bid, clonidine patch weekly, Lasix and Hydralazine 100 bid 4. Obstructive sleep apnea. 5. COPD.On BIPAP 6. Morbid obesity DW RN OK to DC from cardiac standpoint Subjective Subjective Still on iv Lasix 80 bid. On BIPAP at night. Placement pending Objective Last 24 Hour Vital Signs Date Time Temp Pulse Resp B/P (MAP) Pulse Ox O2 Delivery O2 Flow Rate FiO2 06/09/19 08:13 124/68 06/09/19 08:13 88 124/68 06/09/19 08:12 124/68 06/09/19 08:12 88 06/09/19 08:00 99.0 88 20 124/68 (86) 06/09/19 08:00 3.0 06/09/19 06:30 98.5 06/09/19 04:00 98.5 77 20 146/93 (110) 98 06/09/19 04:00 3.0 06/09/19 03:11 78 20 95 Facial 35 06/09/19 00:00 98.3 81 20 109/63 (78) 95 06/08/19 23:02 82 22 95 Facial 35 06/08/19 21:00 Nasal Cannula 3.0 06/08/19 20:37 84 157/98 06/08/19 20:36 157/98 06/08/19 20:18 85 25 96 Facial 35 06/08/19 20:17 96 Bi-Pap 35 06/08/19 20:00 3.0 06/08/19 20:00 98.2 84 20 157/98 (117) 97 06/08/19 16:04 3.0 06/08/19 15:46 97.8 84 20 135/75 (95) 97 06/08/19 13:39 87 148/75 (99) 06/08/19 13:35 148/75 06/08/19 12:00 3.0 2/5/20 11:45 97.2 80 20 103/56 (72 94 Intake and Output 06/08/19 06/09/19 19:00 07:00 Intake Total 840 ml 240 ml Output Total 600 ml Balance 240 ml 240 ml Intake Oral 840 ml 240 ml Output Urine Total 600 ml # Voids 2 4 # Bowel Movements 3 Objective HEAD AND NECK: Mild JVD. LUNGS: Coarse rhonchi. CARDIOVASCULAR: Regular S1 and S2 with no gallop or murmur. ABDOMEN: Obese. EXTREMITIES: 2+ pitting edema. Sandor Doll MD Jun 09, 2019 10:41
--- NOTE | 2019-06-09 10:44 | General Progress Note ---
Assessment/Plan Assessment/Plan: (1) Lumbar DDD (2) Lumbar Spondylosis (3) Morbid obesity Patient to be continued on oxycodone and [place]. D/w Dr. Stack and he concurred. Subjective Date patient seen: Jun 09, 2019 Time patient seen: 09:30 - am Allergies: Coded Allergies: RIVAROXABAN (Verified Allergy, Unknown, 04/05/19) Subjective Constitutional: Reports: weakness HEENT: Reports: no symptoms Cardiovascular: Reports: no symptoms Respiratory: Reports: shortness of breath Gastrointestinal/Abdominal: Reports: no symptoms Genitourinary: Reports: no symptoms Neurologic/Psychiatric: Reports: no symptoms Endocrine: Reports: no symptoms Hematologic/Lymphatic: Reports: no symptoms Subjective Patient continues to c/o pain which has been unchanged. Pain is tolerated on the [place] and Oxycodone. No new complaints at this time. Objective Last 24 Hour Vital Signs Date Time Temp Pulse Resp B/P (MAP) Pulse Ox O2 Delivery O2 Flow Rate FiO2 06/09/19 08:13 124/68 06/09/19 08:13 88 124/68 06/09/19 08:12 124/68 06/09/19 08:12 88 06/09/19 08:00 99.0 88 20 124/68 (86) 06/09/19 08:00 3.0 06/09/19 06:30 98.5 06/09/19 04:00 98.5 77 20 146/93 (110) 98 06/09/19 04:00 3.0 06/09/19 03:11 78 20 95 Facial 35 06/09/19 00:00 98.3 81 20 109/63 (78) 95 06/08/19 23:02 82 22 95 Facial 35 06/08/19 21:00 Nasal Cannula 3.0 06/08/19 20:37 84 157/98 06/08/19 20:36 157/98 06/08/19 20:18 85 25 96 Facial 35 06/08/19 20:17 96 Bi-Pap 35 06/08/19 20:00 3.0 06/08/19 20:00 98.2 84 20 157/98 (117) 97 06/08/19 16:04 3.0 06/08/19 15:46 97.8 84 20 135/75 (95) 97 06/08/19 13:39 87 148/75 (99) 06/08/19 13:35 148/75 06/08/19 12:00 3.0 06/08/19 11:45 97.2 80 20 103/56 (72) 94 Intake and Output 06/08/19 06/09/19 19:00 07:00 Intake Total 840 ml 240 ml Output Total 600 ml Balance 240 ml 240 ml Intake Oral 840 ml 240 ml Output Urine Total 600 ml # Voids 2 4 # Bowel Movements 3 Height (Feet): 5 Height (Inches): 10.00 Weight (Pounds): 438 Objective General Appearance: no apparent distress, alert EENT: PERRL/EOMI Neck: non-tender, normal alignment Cardiovascular: normal rate, regular rhythm Respiratory/Chest: decreased breath sounds Abdomen: non tender, soft Extremities: non-tender Edema: moderate edema Neurologic: alert, oriented x 3 Skin: warm/dry Osito Sultana Jun 09, 2019 10:44
[2019-06-09 12:08] VITALS: BP 137/59
[2019-06-09 16:00] VITALS: BP 135/54
--- NOTE | 2019-06-09 19:07 | General Progress Note ---
Assessment/Plan Assessment/Plan: S: I am feeling pain O: remains in mild- sob with slight out of bed activity, no chest pain . complains of pain in the left shoulder Physical ExamVital Signs General Appearance: alert, GCS 15, obese, Chronically Ill Head: normocephalicEyes: bilateral eye PERRL ENT: TMs + canals normal, uvula midlineNeck: full range of motion Respiratory: lungs clear, decreased breath soundsCardiovascular #1: edema - 1 + Edema Gastrointestinal: normal inspection, normal bowel sounds, non tender Musculoskeletal: morbid obesity, minimal non piting edema in LE. 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 Morbid obesity 4. HTN 5. Multiple joint OA 6. Afib 7. NATASHA 8. ARF : improved 10 . GI-DVT prophylaxia 11. Moderate- PAH 12. Hypokalemia Plan: High risk for Re- admission in future SNIF placement will decrease the likely wallace of readmission Will resume medication from prior admission Pulmonary, Cardiology and Nephrology notes reviewed Better BP control PRN pain medication / D/w RN at bed side Disposition : SNIF or to patient's his own plan of care Subjective Allergies: Coded Allergies: RIVAROXABAN (Verified Allergy, Unknown, 04/05/19) Objective Last 24 Hour Vital Signs Date Time Temp Pulse Resp B/P (MAP) Pulse Ox O2 Delivery O2 Flow Rate FiO2 06/09/19 16:00 3.0 06/09/19 16:00 97.8 76 22 135/54 (81) 96 06/09/19 12:08 98.7 92 20 137/59 (85) 94 06/09/19 12:00 3.0 06/09/19 09:00 Nasal Cannula 3.0 06/09/19 08:15 94 Nasal Cannula 3.0 32 06/09/19 08:13 124/68 06/09/19 08:13 88 124/68 06/09/19 08:12 124/68 06/09/19 08:12 88 06/09/19 08:00 99.0 88 20 124/68 (86) 94 2/6/20 08:00 3.0 06/09/19 06:30 98.5 06/09/19 04:00 98.5 77 20 146/93 (110) 98 06/09/19 04:00 3.0 06/09/19 03:11 78 20 95 Facial 35 06/09/19 00:00 98.3 81 20 109/63 (78) 95 06/08/19 23:02 82 22 95 Facial 35 06/08/19 21:00 Nasal Cannula 3.0 06/08/19 20:37 84 157/98 06/08/19 20:36 157/98 06/08/19 20:18 85 25 96 Facial 35 06/08/19 20:17 96 Bi-Pap 35 06/08/19 20:00 3.0 06/08/19 20:00 98.2 84 20 157/98 (117) 97 Intake and Output 06/08/19 06/09/19 19:00 07:00 Intake Total 840 ml 240 ml Output Total 600 ml Balance 240 ml 240 ml Intake Oral 840 ml 240 ml Output Urine Total 600 ml # Voids 2 4 # Bowel Movements 3 Height (Feet): 5 Height (Inches): 10.00 Weight (Pounds): 438 Desirae Haro MD Jun 09, 2019 19:07
[2019-06-09 20:00] VITALS: BP 139/77
[2019-06-09] MEDS: Atorvastatin 20mg tab ORAL SCH (20:17)
[2019-06-09] MEDS: oxyCODONE 5mg IR tab ORAL PRN (20:18)
[2019-06-10] VITALS: BP 140/77
[2019-06-10] MEDS: HYDROcodone/Acetamin 10/325 tab ORAL PRN ×2 (00:31→09:04)
[2019-06-10 04:00] VITALS: BP 150/72
[2019-06-10] MEDS: oxyCODONE 5mg IR tab ORAL PRN (05:00)
[2019-06-10 06:53] LABS: BASOPHILS % (AUTO) 0.4 % (0.0-2.0); EOSINOPHILS % (AUTO) 6.4 % (0.0-3.0); HEMATOCRIT 34.8 % (42.0-52.0); HEMOGLOBIN 11.2 G/DL (14.2-18.0); LYMPHOCYTES % (AUTO) 26.7 % (20.0-45.0); MEAN CORPUSCULAR VOLUME 79 FL (80-99); MONOCYTES % (AUTO) 8.2 % (1.0-10.0); NEUTROPHILS % (AUTO) 58.3 % (45.0-75.0); PLATELET COUNT 227 K/UL (150-450); RED BLOOD COUNT 4.43 M/UL (4.70-6.10); RED CELL DISTRIBUTION WIDTH 16.6 % (11.6-14.8); WHITE BLOOD COUNT 7.8 K/UL (4.8-10.8)
[2019-06-10 07:30] LABS: ALANINE AMINOTRANSFERASE 20 U/L (12-78); ALBUMIN 3.2 G/DL (3.4-5.0); ALBUMIN/GLOBULIN RATIO 0.8 (1.0-2.7); ALKALINE PHOSPHATASE 55 U/L (46-116); ANION GAP 5 mmol/L (5-15); ASPARTATE AMINO TRANSFERASE 11 U/L (15-37); BILIRUBIN,TOTAL 0.3 MG/DL (0.2-1.0); BLOOD UREA NITROGEN 15 mg/dL (7-18); CALCIUM 8.9 MG/DL (8.5-10.1); CARBON DIOXIDE 36 MMOL/L (21-32); CHLORIDE 106 MMOL/L (98-107); CREATININE 1.3 MG/DL (0.55-1.30); PHOSPHORUS 4.3 MG/DL (2.5-4.9); POTASSIUM 3.9 MMOL/L (3.5-5.1); SODIUM 147 MMOL/L (136-145)
[2019-06-10 08:00] VITALS: BP 142/70
[2019-06-10] MEDS: Magnesium Oxide 400mg tab ORAL SCH ×3 (08:36→17:30)
[2019-06-10] MEDS: Irbesartan 150mg tablet ORAL SCH (08:36)
[2019-06-10] MEDS: Digoxin 0.125mg tab ORAL SCH (08:36)
[2019-06-10] MEDS: Carvedilol 25mg Tab ORAL SCH ×2 (08:37→20:20)
[2019-06-10] MEDS: HydrALAZINE 50mg tab ORAL SCH ×2 (08:37→20:21)
[2019-06-10] MEDS: Docusate 100mg cap ORAL SCH ×3 (08:38→17:22)
[2019-06-10] MEDS: Eliquis 5mg tablet ORAL SCH ×2 (08:38→17:30)
[2019-06-10] MEDS: Furosemide 80mg tab ORAL SCH (08:38)
--- NOTE | 2019-06-10 08:54 | Pulmonology Progress Note ---
Assessment/Plan Assessment/Plan Pulmonary Progress Note Assessment/Plan Problem List: * CHF * Edema * Chronic hypercapnic respiratory failure * Possible COPD * Afib Plan: * Cont BiPAP PRN QHS * HHN * Await placement * Monitor volumes, diuresis per cardiology/renal * monitor renal function * SNF placement Subjective ROS Limited/Unobtainable: No Interval Events: Less short of breath. using BiPAP. Allergies: Coded Allergies: RIVAROXABAN (Verified Allergy, Unknown, 04/05/19) All Systems: reviewed and negative except above Objective Vital Signs Noted General Appearance: no acute distress HEENT: mucous membranes moist Respiratory/Chest: lungs clear Cardiovascular: normal rate Abdomen: soft, non tender Extremities: other - mild chronic edema Neurologic/Psychiatric: alert Labs/Microbiology noted Subjective ROS Limited/Unobtainable: No Allergies: Coded Allergies: RIVAROXABAN (Verified Allergy, Unknown, 04/05/19) Objective Last 24 Hour Vital Signs Date Time Temp Pulse Resp B/P (MAP) Pulse Ox O2 Delivery O2 Flow Rate FiO2 06/10/19 08:37 142/70 06/10/19 08:37 85 142/70 06/10/19 08:36 142/70 06/10/19 08:36 85 06/10/19 07:00 80 15 96 Facial 35 06/10/19 06:59 96 Bi-Pap 35 06/10/19 05:15 84 20 96 Facial 35 06/10/19 04:00 3.0 06/10/19 04:00 98.4 79 20 150/72 (98) 100 06/10/19 00:00 98.2 85 21 140/77 (98) 100 06/09/19 21:00 Nasal Cannula 3.0 06/09/19 20:18 89 139/77 06/09/19 20:17 139/77 06/09/19 20:10 96 Bi-Pap 35 06/09/19 20:10 86 25 96 Facial 35 06/09/19 20:00 98.6 89 18 139/77 (97) 98 06/09/19 20:00 3.0 06/09/19 16:00 3.0 06/09/19 16:00 97.8 76 22 135/54 (81) 96 06/09/19 12:08 98.7 92 20 137/59 (85) 94 2/6/20 12:00 3.0 06/09/19 09:00 Nasal Cannula 3.0 Intake and Output 06/09/19 06/10/19 19:00 07:00 Intake Total 850 ml Balance 850 ml Intake Oral 850 ml # Voids 5 Laboratory Tests 06/10/19 04:59: White Blood Count 7.8, Red Blood Count 4.43L, Hemoglobin 11.2L, Hematocrit 34.8L , Mean Corpuscular Volume 79L, Mean Corpuscular Hemoglobin 25.2L, Mean Corpuscular Hemoglobin Concent 32.0, Red Cell Distribution Width 16.6H, Platelet Count 227, Mean Platelet Volume 8.5, Neutrophils (%) (Auto) 58.3, Lymphocytes (%) (Auto) 26.7, Monocytes (%) (Auto) 8.2, Eosinophils (%) (Auto) 6.4H, Basophils (%) (Auto) 0.4, Sodium Level 147H, Potassium Level 3.9, Chloride Level 106, Carbon Dioxide Level 36H, Anion Gap 5, Blood Urea Nitrogen 15, Creatinine 1.3, Estimat Glomerular Filtration Rate > 60, Glucose Level 104, Uric Acid 6.0, Calcium Level 8.9, Phosphorus Level 4.3, Magnesium Level 2.2, Total Bilirubin 0.3, Aspartate Amino Transf (AST/SGOT) 11L, Alanine Aminotransferase (ALT/SGPT) 20, Alkaline Phosphatase 55, Total Protein 7.0, Albumin 3.2L, Globulin 3.8, Albumin/Globulin Ratio 0.8L Current Medications Medications (Trade) Dose Ordered Sig/David Route PRN Reason Start Time Stop Time Status Last Admin Dose Admin Acetaminophen (Tylenol) 500 mg Q4H PRN ORAL Mild Pain/Temp > 100.5 06/04/19 02:30 07/01/19 02:29 06/08/19 08:19 Acetaminophen/ Hydrocodone Bitart ([place] 10/325) 1 tab Q4H PRN ORAL moderate pain 06/06/19 10:30 06/10/19 10:29 06/10/19 00:31 Apixaban (Eliquis) 5 mg BID ORAL 06/04/19 09:00 07/01/19 17:59 06/10/19 08:38 Atorvastatin Calcium (Lipitor) 40 mg BEDTIME ORAL 06/04/19 21:00 07/01/19 20:59 06/09/19 20:17 Carvedilol (Coreg) 25 mg EVERY 12 HOURS ORAL 06/04/19 09:00 07/01/19 20:59 06/10/19 08:37 Clonidine HCl (Catapres TTS-3) 1 patch QWEEK TDERMAL 06/08/19 12:00 07/01/19 11:59 06/08/19 13:35 Clonidine HCl (Catapres Tab) 0.1 mg Q4H PRN ORAL For High Blood Pressure 06/04/19 01:15 07/01/19 09:14 Digoxin (Lanoxin) 0.125 mg DAILY ORAL 06/04/19 09:00 07/02/19 08:59 06/10/19 08:36 Docusate Sodium (Colace) 100 mg THREE TIMES A DAY ORAL 06/04/19 09:00 07/01/19 09:31 06/10/19 08:38 Furosemide (Lasix) 80 mg DAILY ORAL 06/08/19 09:00 07/08/19 08:59 06/10/19 08:38 Gabapentin (Neurontin) 300 mg THREE TIMES A DAY ORAL 06/04/19 09:00 07/01/19 09:32 06/10/19 08:37 Hydralazine HCl (Apresoline) 100 mg Q12HR ORAL 06/06/19 21:00 07/06/19 20:59 06/10/19 08:37 Irbesartan (Avapro) 300 mg DAILY ORAL 06/04/19 09:00 07/02/19 08:59 06/10/19 08:36 Magnesium Oxide (Mag-Ox 400mg) 400 mg THREE TIMES A DAY ORAL 06/07/19 18:00 07/07/19 17:59 06/10/19 08:36 Oxycodone HCl (Roxicodone) 5 mg Q4H PRN ORAL Breakthrough Pain 06/06/19 10:30 06/10/19 10:29 06/10/19 05:00 Potassium Chloride (K-Dur) 40 meq BID ORAL 06/04/19 09:00 07/03/19 08:59 06/10/19 08:38 Mahesh Wise MD Jun 10, 2019 08:54
[2019-06-10 12:00] VITALS: BP 112/71
--- NOTE | 2019-06-10 12:13 | Cardiac Electrophysiology PN ---
Assessment/Plan Assessment/Plan 1. Paroxysmal atrial fibrillation, converted to sinus rhythm with frequent PACs. Continue digoxin 0.125 mg daily, Coreg 25 mg b.i.d. and Eliquis 5 mg b.i.d. 2. CHF exacerbation due to diastolic dysfunction and hypertensive heart disease. On Lasix 80 mg po daily 3. Hypertension, on Avapro 300 mg daily, Coreg 25 bid, clonidine patch weekly, Lasix and Hydralazine 100 bid 4. Obstructive sleep apnea. 5. COPD.On BIPAP 6. Morbid obesity DW RN OK to DC from cardiac standpoint Subjective Subjective Diuresing on Lasix 80 po daily. On BIPAP at night. Placement pending. Doesn't follow fluid restriction Objective Last 24 Hour Vital Signs Date Time Temp Pulse Resp B/P (MAP) Pulse Ox O2 Delivery O2 Flow Rate FiO2 06/10/19 11:46 Nasal Cannula 3.0 06/10/19 09:00 Nasal Cannula 3.0 06/10/19 09:00 95 Nasal Cannula 3.0 32 06/10/19 09:00 3.0 06/10/19 08:37 142/70 06/10/19 08:37 85 142/70 06/10/19 08:36 142/70 06/10/19 08:36 85 06/10/19 08:00 98.5 85 22 142/70 (94) 98 06/10/19 07:00 80 15 96 Facial 35 06/10/19 06:59 96 Bi-Pap 35 06/10/19 05:15 84 20 96 Facial 35 06/10/19 04:00 3.0 06/10/19 04:00 98.4 79 20 150/72 (98) 100 06/10/19 00:00 98.2 85 21 140/77 (98) 100 06/09/19 21:00 Nasal Cannula 3.0 06/09/19 20:18 89 139/77 06/09/19 20:17 139/77 06/09/19 20:10 96 Bi-Pap 35 06/09/19 20:10 86 25 96 Facial 35 06/09/19 20:00 98.6 89 18 139/77 (97) 98 06/09/19 20:00 3.0 06/09/19 16:00 3.0 06/09/19 16:00 97.8 76 22 135/54 (81) 96 Intake and Output 06/09/19 06/10/19 19:00 07:00 Intake Total 850 ml Balance 850 ml Intake Oral 850 ml # Voids 5 Laboratory Tests Test 06/10/19 04:59 White Blood Count 7.8 K/UL (4.8-10.8) Red Blood Count 4.43 M/UL (4.70-6.10) L Hemoglobin 11.2 G/DL (14.2-18.0) L Hematocrit 34.8 % (42.0-52.0) L Mean Corpuscular Volume 79 FL (80-99) L Mean Corpuscular Hemoglobin 25.2 PG (27.0-31.0) L Mean Corpuscular Hemoglobin Concent 32.0 G/DL (32.0-36.0) Red Cell Distribution Width 16.6 % (11.6-14.8) H Platelet Count 227 K/UL (150-450) Mean Platelet Volume 8.5 FL (6.5-10.1) Neutrophils (%) (Auto) 58.3 % (45.0-75.0) Lymphocytes (%) (Auto) 26.7 % (20.0-45.0) Monocytes (%) (Auto) 8.2 % (1.0-10.0) Eosinophils (%) (Auto) 6.4 % (0.0-3.0) H Basophils (%) (Auto) 0.4 % (0.0-2.0) Sodium Level 147 MMOL/L (136-145) H Potassium Level 3.9 MMOL/L (3.5-5.1) Chloride Level 106 MMOL/L (98-107) Carbon Dioxide Level 36 MMOL/L (21-32) H Anion Gap 5 mmol/L (5-15) Blood Urea Nitrogen 15 mg/dL (7-18) Creatinine 1.3 MG/DL (0.55-1.30) Estimat Glomerular Filtration Rate > 60 mL/min (>60) Glucose Level 104 MG/DL (74-106) Uric Acid 6.0 MG/DL (2.6-7.2) Calcium Level 8.9 MG/DL (8.5-10.1) Phosphorus Level 4.3 MG/DL (2.5-4.9) Magnesium Level 2.2 MG/DL (1.8-2.4) Total Bilirubin 0.3 MG/DL (0.2-1.0) Aspartate Amino Transf (AST/SGOT) 11 U/L (15-37) L Alanine Aminotransferase (ALT/SGPT) 20 U/L (12-78) Alkaline Phosphatase 55 U/L (46-116) Total Protein 7.0 G/DL (6.4-8.2) Albumin 3.2 G/DL (3.4-5.0) L Globulin 3.8 g/dL Albumin/Globulin Ratio 0.8 (1.0-2.7) L Objective HEAD AND NECK: Mild JVD. LUNGS: Coarse rhonchi. CARDIOVASCULAR: Regular S1 and S2 with no gallop or murmur. ABDOMEN: Obese. EXTREMITIES: 2+ pitting edema. Sandor Doll MD Jun 10, 2019 12:13
--- NOTE | 2019-06-10 12:34 | Nephrology Progress Note ---
Assessment/Plan Problem List: (1) Electrolyte imbalance (2) COPD (chronic obstructive pulmonary disease) (3) CO2 retention (4) CHF (congestive heart failure) (5) Obesity, morbid, BMI 50 or higher Assessment (1) Hypokalemia (2) CHF (congestive heart failure) (3) s/p Renal failure (4) Obesity, morbid, BMI 50 or higher (5) CO2 retention (6) COPD (chronic obstructive pulmonary disease) Obesity , NATASHA AT fib with FVR Congestive heart failure, likely diastolic dysfunction. EF 60% Recurrent NSVT. No syncope. Hypertension. Morbid obesity. COPD. Lipidemia. Plan Plan optimize cardiac and pulm status Keep BP in check Monitor lytes Diamox PO as needed per orders per cardio and pulmonary Subjective ROS Limited/Unobtainable: No Constitutional: Reports: malaise Objective Objective Last 24 Hour Vital Signs Date Time Temp Pulse Resp B/P (MAP) Pulse Ox O2 Delivery O2 Flow Rate FiO2 06/10/19 11:46 Nasal Cannula 3.0 06/10/19 09:00 Nasal Cannula 3.0 06/10/19 09:00 95 Nasal Cannula 3.0 32 06/10/19 09:00 3.0 06/10/19 08:37 142/70 06/10/19 08:37 85 142/70 06/10/19 08:36 142/70 06/10/19 08:36 85 06/10/19 08:00 98.5 85 22 142/70 (94) 98 06/10/19 07:00 80 15 96 Facial 35 06/10/19 06:59 96 Bi-Pap 35 06/10/19 05:15 84 20 96 Facial 35 06/10/19 04:00 3.0 06/10/19 04:00 98.4 79 20 150/72 (98) 100 06/10/19 00:00 98.2 85 21 140/77 (98) 100 06/09/19 21:00 Nasal Cannula 3.0 06/09/19 20:18 89 139/77 06/09/19 20:17 139/77 06/09/19 20:10 96 Bi-Pap 35 06/09/19 20:10 86 25 96 Facial 35 06/09/19 20:00 98.6 89 18 139/77 (97) 98 06/09/19 20:00 3.0 06/09/19 16:00 3.0 06/09/19 16:00 97.8 76 22 135/54 (81) 96 Intake and Output 06/09/19 06/10/19 18:59 06:59 Intake Total 850 ml Balance 850 ml Intake Oral 850 ml # Voids 5 Laboratory Tests 06/10/19 04:59: White Blood Count 7.8, Red Blood Count 4.43L, Hemoglobin 11.2L, Hematocrit 34.8L , Mean Corpuscular Volume 79L, Mean Corpuscular Hemoglobin 25.2L, Mean Corpuscular Hemoglobin Concent 32.0, Red Cell Distribution Width 16.6H, Platelet Count 227, Mean Platelet Volume 8.5, Neutrophils (%) (Auto) 58.3, Lymphocytes (%) (Auto) 26.7, Monocytes (%) (Auto) 8.2, Eosinophils (%) (Auto) 6.4H, Basophils (%) (Auto) 0.4, Sodium Level 147H, Potassium Level 3.9, Chloride Level 106, Carbon Dioxide Level 36H, Anion Gap 5, Blood Urea Nitrogen 15, Creatinine 1.3, Estimat Glomerular Filtration Rate > 60, Glucose Level 104, Uric Acid 6.0, Calcium Level 8.9, Phosphorus Level 4.3, Magnesium Level 2.2, Total Bilirubin 0.3, Aspartate Amino Transf (AST/SGOT) 11L, Alanine Aminotransferase (ALT/SGPT) 20, Alkaline Phosphatase 55, Total Protein 7.0, Albumin 3.2L, Globulin 3.8, Albumin/Globulin Ratio 0.8L Height (Feet): 5 Height (Inches): 10.00 Weight (Pounds): 438 General Appearance: no apparent distress Cardiovascular: normal rate Respiratory/Chest: decreased breath sounds Abdomen: distended Objective no change Bebeto Yin MD Jun 10, 2019 12:34
[2019-06-10] MEDS: Acetaminophen 500mg (ES) tab ORAL PRN (15:35)
[2019-06-10 16:00] VITALS: BP 133/82
[2019-06-10 20:00] VITALS: BP 156/105
[2019-06-10] MEDS: Atorvastatin 20mg tab ORAL SCH (20:21)
[2019-06-11] VITALS: BP 148/89
[2019-06-11] MEDS: Acetaminophen 500mg (ES) tab ORAL PRN (01:53)
[2019-06-11 08:00] VITALS: BP 126/68
[2019-06-11] MEDS: Docusate 100mg cap ORAL SCH ×3 (08:11→17:26)
[2019-06-11] MEDS: HydrALAZINE 50mg tab ORAL SCH ×2 (08:12→20:53)
[2019-06-11] MEDS: Irbesartan 150mg tablet ORAL SCH (08:13)
[2019-06-11] MEDS: Digoxin 0.125mg tab ORAL SCH (08:13)
[2019-06-11] MEDS: Magnesium Oxide 400mg tab ORAL SCH ×3 (08:13→17:26)
[2019-06-11] MEDS: Eliquis 5mg tablet ORAL SCH ×2 (08:13→17:26)
[2019-06-11] MEDS: Carvedilol 25mg Tab ORAL SCH ×2 (08:13→20:53)
[2019-06-11] MEDS: Furosemide 80mg tab ORAL SCH (08:14)
[2019-06-11] MEDS: oxyCODONE 5mg IR tab ORAL PRN ×3 (08:43→23:32)
--- NOTE | 2019-06-11 10:37 | Nephrology Progress Note ---
Assessment/Plan Problem List: (1) Electrolyte imbalance (2) COPD (chronic obstructive pulmonary disease) (3) CO2 retention (4) CHF (congestive heart failure) (5) Obesity, morbid, BMI 50 or higher Assessment (1) Hypokalemia (2) CHF (congestive heart failure) (3) s/p Renal failure (4) Obesity, morbid, BMI 50 or higher (5) CO2 retention (6) COPD (chronic obstructive pulmonary disease) Obesity , NATASHA AT fib with FVR Congestive heart failure, likely diastolic dysfunction. EF 60% Recurrent NSVT. No syncope. Hypertension. Morbid obesity. COPD. Lipidemia. Plan Plan optimize cardiac and pulm status Keep BP in check Monitor lytes Diamox PO as needed per orders per cardio and pulmonary Subjective ROS Limited/Unobtainable: No Objective Objective Last 24 Hour Vital Signs Date Time Temp Pulse Resp B/P (MAP) Pulse Ox O2 Delivery O2 Flow Rate FiO2 06/11/19 08:15 96 Nasal Cannula 2.0 28 06/11/19 08:13 170/90 06/11/19 08:13 82 06/11/19 08:13 82 170/90 06/11/19 08:12 170/90 06/11/19 08:11 170/90 06/11/19 06:06 96 06/11/19 04:00 3.0 06/11/19 02:54 73 24 95 Facial 35 06/11/19 00:58 68 19 96 Facial 35 06/11/19 00:00 97.9 74 24 148/89 (108) 95 06/11/19 00:00 3.0 06/10/19 22:38 69 23 97 Facial 35 06/10/19 21:00 Nasal Cannula 3.0 06/10/19 20:21 156/105 06/10/19 20:20 85 156/105 06/10/19 20:00 98.2 85 20 156/105 (122) 92 06/10/19 20:00 3.0 06/10/19 19:28 95 Nasal Cannula 3.0 32 06/10/19 16:00 3.0 06/10/19 16:00 98.5 72 20 133/82 (99) 97 06/10/19 12:00 99.0 81 20 112/71 (85) 94 06/10/19 12:00 3.0 06/10/19 11:46 Nasal Cannula 3.0 Intake and Output 06/10/19 06/11/19 18:59 06:59 Intake Total 960 ml 600 ml Output Total 700 ml Balance 960 ml -100 ml Intake Oral 960 ml 600 ml Output Urine Total 700 ml # Voids 3 # Bowel Movements 1 Height (Feet): 5 Height (Inches): 10.00 Weight (Pounds): 438 General Appearance: no apparent distress Cardiovascular: normal rate Respiratory/Chest: decreased breath sounds Abdomen: distended Objective no change Bebeto Yin MD Jun 11, 2019 10:37
[2019-06-11 12:00] VITALS: BP 128/76
--- NOTE | 2019-06-11 14:35 | Cardiac Electrophysiology PN ---
Assessment/Plan Assessment/Plan 1. Paroxysmal atrial fibrillation, converted to sinus rhythm with frequent PACs. Continue digoxin 0.125 mg daily, Coreg 25 mg b.i.d. and Eliquis 5 mg b.i.d. Off tele now 2. CHF exacerbation due to diastolic dysfunction . On Lasix 80 mg po daily 3. Hypertension, on Avapro 300 mg daily, Coreg 25 bid, clonidine patch weekly, Lasix and Hydralazine 100 bid 4. Obstructive sleep apnea. 5. COPD.On BIPAP 6. Morbid obesity DW RN OK to DC from cardiac standpoint Subjective Subjective On BIPAP at night. Placement pending. Doesn't follow fluid restriction. Refusing to take shower Objective Last 24 Hour Vital Signs Date Time Temp Pulse Resp B/P (MAP) Pulse Ox O2 Delivery O2 Flow Rate FiO2 06/11/19 12:00 98.1 76 22 128/76 (93) 98 06/11/19 12:00 3.0 06/11/19 09:00 Nasal Cannula 3.0 06/11/19 08:15 96 Nasal Cannula 2.0 28 06/11/19 08:13 170/90 06/11/19 08:13 82 06/11/19 08:13 82 170/90 06/11/19 08:12 170/90 06/11/19 08:11 170/90 06/11/19 08:00 3.0 06/11/19 08:00 98.2 82 22 126/68 (87) 95 06/11/19 06:06 96 06/11/19 04:00 3.0 06/11/19 02:54 73 24 95 Facial 35 06/11/19 00:58 68 19 96 Facial 35 06/11/19 00:00 97.9 74 24 148/89 (108) 95 06/11/19 00:00 3.0 06/10/19 22:38 69 23 97 Facial 35 06/10/19 21:00 Nasal Cannula 3.0 06/10/19 20:21 156/105 06/10/19 20:20 85 156/105 06/10/19 20:00 98.2 85 20 156/105 (122) 92 06/10/19 20:00 3.0 06/10/19 19:28 95 Nasal Cannula 3.0 32 06/10/19 16:00 3.0 06/10/19 16:00 98.5 72 20 133/82 (99) 97 Intake and Output 06/10/19 06/11/19 19:00 07:00 Intake Total 960 ml 600 ml Output Total 700 ml Balance 960 ml -100 ml Intake Oral 960 ml 600 ml Output Urine Total 700 ml # Voids 3 # Bowel Movements 1 Objective HEAD AND NECK: Mild JVD. LUNGS: Coarse rhonchi. CARDIOVASCULAR: Regular S1 and S2 with no gallop or murmur. ABDOMEN: Obese. EXTREMITIES: 2+ pitting edema. Sandor Doll MD Jun 11, 2019 14:35
--- NOTE | 2019-06-11 15:37 | General Progress Note ---
Assessment/Plan Assessment/Plan: S: I am feeling pain O: remains in mild- sob with slight out of bed activity. complains of pain in the left shoulder Physical ExamVital Signs General Appearance: alert, GCS 15, obese, Chronically Ill Head: normocephalicEyes: bilateral eye PERRL ENT: TMs + canals normal, uvula midlineNeck: full range of motion Respiratory: lungs clear, decreased breath soundsCardiovascular #1: edema - 1 + Edema Gastrointestinal: normal inspection, normal bowel sounds, non tender Musculoskeletal: morbid obesity, minimal non piting edema in LE. Neurologic: alert, motor strength/tone normal, president + publisher III-XII nml as tested, oriented [id number]: normal inspection Skin: other - Bilateral scaly rash to the lower extremities Meds: reviewed and reconciled in the chart Assessment/Plan: 1. 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 Morbid obesity 4. HTN 5. Multiple joint OA 6. Afib 7. NATASHA 8. ARF : improved 10 . GI-DVT prophylaxia 11. Moderate- PAH 12. Hypokalemia Plan: High risk for Re- admission in future SNIF placement will decrease the likely wallace of readmission Will resume medication from prior admission Pulmonary, Cardiology and Nephrology notes reviewed Better BP control PRN pain medication / D/w RN at bed side Disposition : SNIF or to patient's his own plan of care Subjective Allergies: Coded Allergies: RIVAROXABAN (Verified Allergy, Unknown, 04/05/19) Objective Last 24 Hour Vital Signs Date Time Temp Pulse Resp B/P (MAP) Pulse Ox O2 Delivery O2 Flow Rate FiO2 06/11/19 12:00 98.1 76 22 128/76 (93) 98 06/11/19 12:00 3.0 06/11/19 09:00 Nasal Cannula 3.0 06/11/19 08:15 96 Nasal Cannula 2.0 28 06/11/19 08:13 170/90 06/11/19 08:13 82 06/11/19 08:13 82 170/90 06/11/19 08:12 170/90 06/11/19 08:11 170/90 06/11/19 08:00 3.0 06/11/19 08:00 98.2 82 22 126/68 (87) 95 2/8/20 06:06 96 06/11/19 04:00 3.0 06/11/19 02:54 73 24 95 Facial 35 06/11/19 00:58 68 19 96 Facial 35 06/11/19 00:00 97.9 74 24 148/89 (108) 95 06/11/19 00:00 3.0 06/10/19 22:38 69 23 97 Facial 35 06/10/19 21:00 Nasal Cannula 3.0 06/10/19 20:21 156/105 06/10/19 20:20 85 156/105 06/10/19 20:00 98.2 85 20 156/105 (122) 92 06/10/19 20:00 3.0 06/10/19 19:28 95 Nasal Cannula 3.0 32 06/10/19 16:00 3.0 06/10/19 16:00 98.5 72 20 133/82 (99) 97 Intake and Output 06/10/19 06/11/19 19:00 07:00 Intake Total 960 ml 600 ml Output Total 700 ml Balance 960 ml -100 ml Intake Oral 960 ml 600 ml Output Urine Total 700 ml # Voids 3 # Bowel Movements 1 Height (Feet): 5 Height (Inches): 10.00 Weight (Pounds): 438 Desirae Haro MD Jun 11, 2019 15:37
[2019-06-11 16:00] VITALS: BP 171/89
[2019-06-11 17:31] VITALS: BP 150/90
[2019-06-11 20:00] VITALS: BP 183/108
--- NOTE | 2019-06-11 20:00 | Pulmonology Progress Note ---
Assessment/Plan Assessment/Plan Pulmonary Progress Note Assessment/Plan Problem List: * CHF * Edema * Chronic hypercapnic respiratory failure * Possible COPD * Afib Plan: * Cont BiPAP PRN QHS * HHN * Await placement * Monitor volumes, diuresis per cardiology/renal * monitor renal function * SNF placement Subjective ROS Limited/Unobtainable: No Interval Events: Less short of breath. using BiPAP. Allergies: Coded Allergies: RIVAROXABAN (Verified Allergy, Unknown, 04/05/19) All Systems: reviewed and negative except above Objective Vital Signs Noted General Appearance: no acute distress HEENT: mucous membranes moist Respiratory/Chest: lungs clear Cardiovascular: normal rate Abdomen: soft, non tender Extremities: other - mild chronic edema Neurologic/Psychiatric: alert Labs/Microbiology noted Subjective ROS Limited/Unobtainable: No Allergies: Coded Allergies: RIVAROXABAN (Verified Allergy, Unknown, 04/05/19) Objective Last 24 Hour Vital Signs Date Time Temp Pulse Resp B/P (MAP) Pulse Ox O2 Delivery O2 Flow Rate FiO2 06/11/19 17:57 Nasal Cannula 3.0 06/11/19 17:31 98.0 75 20 150/90 (110) 96 06/11/19 16:46 171/89 06/11/19 16:00 98.0 75 20 171/89 (116) 96 06/11/19 16:00 3.0 06/11/19 12:00 98.1 76 22 128/76 (93) 98 06/11/19 12:00 3.0 06/11/19 09:00 Nasal Cannula 3.0 06/11/19 08:15 96 Nasal Cannula 2.0 28 06/11/19 08:13 170/90 06/11/19 08:13 82 06/11/19 08:13 82 170/90 06/11/19 08:12 170/90 06/11/19 08:11 170/90 06/11/19 08:00 3.0 06/11/19 08:00 98.2 82 22 126/68 (87) 95 06/11/19 06:06 96 06/11/19 04:00 3.0 06/11/19 02:54 73 24 95 Facial 35 06/11/19 00:58 68 19 96 Facial 35 06/11/19 00:00 97.9 74 24 148/89 (108) 95 06/11/19 00:00 3.0 06/10/19 22:38 69 23 97 Facial 35 06/10/19 21:00 Nasal Cannula 3.0 06/10/19 20:21 156/105 06/10/19 20:20 85 156/105 06/10/19 20:00 98.2 85 20 156/105 (122) 92 06/10/19 20:00 3.0 Intake and Output 06/10/19 06/11/19 19:00 07:00 Intake Total 960 ml 600 ml Output Total 700 ml Balance 960 ml -100 ml Intake Oral 960 ml 600 ml Output Urine Total 700 ml # Voids 3 # Bowel Movements 1 Current Medications Medications (Trade) Dose Ordered Sig/David Route PRN Reason Start Time Stop Time Status Last Admin Dose Admin Acetaminophen (Tylenol) 500 mg Q4H PRN ORAL Mild Pain/Temp > 100.5 06/04/19 02:30 07/01/19 02:29 06/11/19 01:53 Acetaminophen/ Hydrocodone Bitart ([place] 10/325) 1 tab Q4H PRN ORAL For Pain 06/11/19 08:00 06/18/19 07:59 Apixaban (Eliquis) 5 mg BID ORAL 06/04/19 09:00 07/01/19 17:59 06/11/19 17:26 Atorvastatin Calcium (Lipitor) 40 mg BEDTIME ORAL 06/04/19 21:00 07/01/19 20:59 06/10/19 20:21 Carvedilol (Coreg) 25 mg EVERY 12 HOURS ORAL 06/04/19 09:00 07/01/19 20:59 06/11/19 08:13 Clonidine HCl (Catapres TTS-3) 1 patch QWEEK TDERMAL 06/08/19 12:00 07/01/19 11:59 06/08/19 13:35 Clonidine HCl (Catapres Tab) 0.1 mg Q4H PRN ORAL For High Blood Pressure 06/04/19 01:15 07/01/19 09:14 06/11/19 16:46 Digoxin (Lanoxin) 0.125 mg DAILY ORAL 06/04/19 09:00 07/02/19 08:59 06/11/19 08:13 Docusate Sodium (Colace) 100 mg THREE TIMES A DAY ORAL 06/04/19 09:00 07/01/19 09:31 06/11/19 17:26 Furosemide (Lasix) 80 mg DAILY ORAL 06/08/19 09:00 07/08/19 08:59 06/11/19 08:14 Gabapentin (Neurontin) 300 mg THREE TIMES A DAY ORAL 06/04/19 09:00 07/01/19 09:32 06/11/19 17:26 Hydralazine HCl (Apresoline) 100 mg Q12HR ORAL 06/06/19 21:00 07/06/19 20:59 06/11/19 08:12 Irbesartan (Avapro) 300 mg DAILY ORAL 06/04/19 09:00 07/02/19 08:59 06/11/19 08:13 Magnesium Oxide (Mag-Ox 400mg) 400 mg THREE TIMES A DAY ORAL 06/07/19 18:00 07/07/19 17:59 06/11/19 17:26 Oxycodone HCl (Roxicodone) 5 mg Q4H PRN ORAL Breakthrough Pain 06/11/19 08:00 06/18/19 07:59 06/11/19 16:11 Potassium Chloride (K-Dur) 40 meq BID ORAL 06/04/19 09:00 07/03/19 08:59 06/11/19 17:26 Mahesh Wise MD Jun 11, 2019 19:59
[2019-06-11] MEDS: Atorvastatin 20mg tab ORAL SCH (20:53)
[2019-06-12] VITALS: BP 143/97
[2019-06-12 08:00] VITALS: BP 141/87
[2019-06-12] MEDS: Docusate 100mg cap ORAL SCH ×3 (08:31→17:12)
[2019-06-12] MEDS: Carvedilol 25mg Tab ORAL SCH ×2 (08:31→20:15)
[2019-06-12] MEDS: Irbesartan 150mg tablet ORAL SCH (08:32)
[2019-06-12] MEDS: Furosemide 80mg tab ORAL SCH (08:32)
[2019-06-12] MEDS: Magnesium Oxide 400mg tab ORAL SCH ×3 (08:32→17:13)
[2019-06-12] MEDS: HydrALAZINE 50mg tab ORAL SCH ×2 (08:32→20:15)
[2019-06-12] MEDS: Eliquis 5mg tablet ORAL SCH ×2 (08:33→17:13)
[2019-06-12] MEDS: Digoxin 0.125mg tab ORAL SCH (08:33)
[2019-06-12 12:00] VITALS: BP 120/73
--- NOTE | 2019-06-12 12:09 | Nephrology Progress Note ---
Assessment/Plan Problem List: (1) Electrolyte imbalance (2) COPD (chronic obstructive pulmonary disease) (3) CO2 retention (4) CHF (congestive heart failure) (5) Obesity, morbid, BMI 50 or higher Assessment (1) Hypokalemia (2) CHF (congestive heart failure) (3) s/p Renal failure (4) Obesity, morbid, BMI 50 or higher (5) CO2 retention (6) COPD (chronic obstructive pulmonary disease) Obesity , NATASHA AT fib with FVR Congestive heart failure, likely diastolic dysfunction. EF 60% Recurrent NSVT. No syncope. Hypertension. Morbid obesity. COPD. Lipidemia. Plan Plan optimize cardiac and pulm status Keep BP in check Monitor lytes Diamox PO as needed per orders per cardio and pulmonary Subjective ROS Limited/Unobtainable: No Constitutional: Reports: malaise, weakness Objective Objective Last 24 Hour Vital Signs Date Time Temp Pulse Resp B/P (MAP) Pulse Ox O2 Delivery O2 Flow Rate FiO2 06/12/19 09:00 95 Nasal Cannula 2.0 28 06/12/19 09:00 Nasal Cannula 3.0 06/12/19 08:33 84 06/12/19 08:32 141/87 06/12/19 08:32 141/87 06/12/19 08:31 84 141/87 06/12/19 08:00 3.0 06/12/19 08:00 97.9 84 20 141/87 (105) 94 06/12/19 05:32 70 20 96 Facial 35 06/12/19 04:00 3.0 06/12/19 03:40 71 20 95 Facial 35 06/12/19 01:21 71 22 95 Facial 35 06/12/19 00:00 98.4 85 20 143/97 (112) 94 06/12/19 00:00 3.0 06/11/19 21:00 Nasal Cannula 3.0 06/11/19 20:53 183/108 06/11/19 20:53 183/108 06/11/19 20:53 66 183/108 06/11/19 20:05 96 Nasal Cannula 2.0 28 06/11/19 20:00 3.0 06/11/19 20:00 98.1 66 19 183/108 (133) 96 06/11/19 17:57 Nasal Cannula 3.0 06/11/19 17:31 98.0 75 20 150/90 (110) 96 06/11/19 16:46 171/89 06/11/19 16:00 98.0 75 20 171/89 (116) 96 06/11/19 16:00 3.0 Intake and Output 06/11/19 06/12/19 19:00 07:00 Intake Total 720 ml 100 ml Output Total 900 ml 700 ml Balance -180 ml -600 ml Intake Oral 720 ml 100 ml Output Urine Total 900 ml 700 ml # Voids 3 # Bowel Movements 1 1 Height (Feet): 5 Height (Inches): 10.00 Weight (Pounds): 438 General Appearance: no apparent distress, lethargic Cardiovascular: normal rate Respiratory/Chest: decreased breath sounds Abdomen: distended Objective no change Bebeto Yin MD Jun 12, 2019 12:09
[2019-06-12] MEDS: oxyCODONE 5mg IR tab ORAL PRN ×2 (12:26→20:16)
--- NOTE | 2019-06-12 12:40 | General Progress Note ---
Assessment/Plan Assessment/Plan: (1) Lumbar DDD (2) Lumbar Spondylosis (3) Morbid obesity Patient to be continued on oxycodone and [place]. D/w Dr. Stack and he concurred. Subjective Date patient seen: Jun 12, 2019 Time patient seen: 12:00 - pm Allergies: Coded Allergies: RIVAROXABAN (Verified Allergy, Unknown, 04/05/19) Subjective Constitutional: Reports: weakness HEENT: Reports: no symptoms Cardiovascular: Reports: no symptoms Respiratory: Reports: shortness of breath Gastrointestinal/Abdominal: Reports: no symptoms Genitourinary: Reports: no symptoms Neurologic/Psychiatric: Reports: no symptoms Endocrine: Reports: no symptoms Hematologic/Lymphatic: Reports: no symptoms Subjective Patient is in bed with bipap applied. No signs of pain or distress. Pain is tolerated on the [place] and Oxycodone. No new complaints at this time. Objective Last 24 Hour Vital Signs Date Time Temp Pulse Resp B/P (MAP) Pulse Ox O2 Delivery O2 Flow Rate FiO2 06/12/19 12:00 97.2 76 20 120/73 (89) 93 06/12/19 12:00 3.0 06/12/19 09:00 95 Nasal Cannula 2.0 28 06/12/19 09:00 Nasal Cannula 3.0 06/12/19 08:33 84 06/12/19 08:32 141/87 06/12/19 08:32 141/87 06/12/19 08:31 84 141/87 06/12/19 08:00 3.0 06/12/19 08:00 97.9 84 20 141/87 (105) 94 06/12/19 05:32 70 20 96 Facial 35 06/12/19 04:00 3.0 06/12/19 03:40 71 20 95 Facial 35 06/12/19 01:21 71 22 95 Facial 35 06/12/19 00:00 98.4 85 20 143/97 (112) 94 06/12/19 00:00 3.0 06/11/19 21:00 Nasal Cannula 3.0 06/11/19 20:53 183/108 06/11/19 20:53 183/108 06/11/19 20:53 66 183/108 06/11/19 20:05 96 Nasal Cannula 2.0 28 06/11/19 20:00 3.0 06/11/19 20:00 98.1 66 19 183/108 (133) 96 06/11/19 17:57 Nasal Cannula 3.0 06/11/19 17:31 98.0 75 20 150/90 (110) 96 06/11/19 16:46 171/89 06/11/19 16:00 98.0 75 20 171/89 (116) 96 06/11/19 16:00 3.0 Intake and Output 06/11/19 06/12/19 19:00 07:00 Intake Total 720 ml 100 ml Output Total 900 ml 700 ml Balance -180 ml -600 ml Intake Oral 720 ml 100 ml Output Urine Total 900 ml 700 ml # Voids 3 # Bowel Movements 1 1 Height (Feet): 5 Height (Inches): 10.00 Weight (Pounds): 438 Objective General Appearance: no apparent distress, alert EENT: PERRL/EOMI Neck: non-tender, normal alignment Cardiovascular: normal rate, regular rhythm Respiratory/Chest: decreased breath sounds Abdomen: non tender, soft Extremities: non-tender Edema: moderate edema Neurologic: alert, oriented x 3 Skin: warm/dry Osito Sultana Jun 12, 2019 12:40
[2019-06-12] MEDS: Acetaminophen 500mg (ES) tab ORAL PRN (15:49)
[2019-06-12 16:00] VITALS: BP 132/79
[2019-06-12 20:00] VITALS: BP 158/105
[2019-06-12] MEDS: Atorvastatin 20mg tab ORAL SCH (20:15)
--- NOTE | 2019-06-12 20:47 | General Progress Note ---
Assessment/Plan Assessment/Plan: S: I am feeling pain O: remains in mild- sob with slight out of bed activity. complains of pain in the left shoulder . ambulates using walker out of bed Physical ExamVital Signs General Appearance: alert, GCS 15, obese, Chronically Ill Head: normocephalicEyes: bilateral eye PERRL ENT: TMs + canals normal, uvula midlineNeck: full range of motion Respiratory: lungs clear, decreased breath soundsCardiovascular #1: edema - 1 + Edema Gastrointestinal: normal inspection, normal bowel sounds, non tender Musculoskeletal: morbid obesity, minimal non piting edema in LE. Neurologic: alert, motor strength/tone normal, ultrasonic tester III-XII nml as tested, oriented [id number]: normal inspection Skin: other - Bilateral scaly rash to the lower extremities Meds: reviewed and reconciled in the chart Assessment/Plan: 1. 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 Morbid obesity 4. HTN 5. Multiple joint OA 6. Afib 7. NATASHA 8. ARF : improved 10 . GI-DVT prophylaxia 11. Moderate- PAH 12. Hypokalemia Plan: High risk for Re- admission in future SNIF placement will decrease the likely wallace of readmission Pulmonary, Cardiology and Nephrology notes reviewed Better BP control PRN pain medication / D/w RN at bed side Disposition : SNIF or to patient's his own plan of care Subjective Allergies: Coded Allergies: RIVAROXABAN (Verified Allergy, Unknown, 04/05/19) Objective Last 24 Hour Vital Signs Date Time Temp Pulse Resp B/P (MAP) Pulse Ox O2 Delivery O2 Flow Rate FiO2 06/12/19 20:15 158/105 06/12/19 20:15 78 158/105 06/12/19 20:00 3.0 06/12/19 20:00 98.4 78 19 158/105 (122) 96 06/12/19 16:00 3.0 06/12/19 16:00 98.9 90 20 132/79 (96) 94 06/12/19 12:00 97.2 76 20 120/73 (89) 93 06/12/19 12:00 3.0 06/12/19 09:00 95 Nasal Cannula 2.0 28 06/12/19 09:00 Nasal Cannula 3.0 06/12/19 08:33 84 06/12/19 08:32 141/87 06/12/19 08:32 141/87 06/12/19 08:31 84 141/87 06/12/19 08:00 3.0 06/12/19 08:00 97.9 84 20 141/87 (105) 94 06/12/19 05:32 70 20 96 Facial 35 06/12/19 04:00 3.0 06/12/19 03:40 71 20 95 Facial 35 06/12/19 01:21 71 22 95 Facial 35 06/12/19 00:00 98.4 85 20 143/97 (112) 94 06/12/19 00:00 3.0 06/11/19 21:00 Nasal Cannula 3.0 06/11/19 20:53 183/108 06/11/19 20:53 183/108 06/11/19 20:53 66 183/108 Intake and Output 06/11/19 06/12/19 19:00 07:00 Intake Total 720 ml 100 ml Output Total 900 ml 700 ml Balance -180 ml -600 ml Intake Oral 720 ml 100 ml Output Urine Total 900 ml 700 ml # Voids 3 # Bowel Movements 1 1 Height (Feet): 5 Height (Inches): 10.00 Weight (Pounds): 438 Desirae Haro MD Jun 12, 2019 20:47
--- NOTE | 2019-06-12 21:05 | Pulmonology Progress Note ---
Assessment/Plan Assessment/Plan Pulmonary Progress Note Assessment/Plan Problem List: * CHF * Edema * Chronic hypercapnic respiratory failure * Possible COPD * Afib Plan: * Cont BiPAP PRN QHS * HHN * Await placement * Monitor volumes, diuresis per cardiology/renal * monitor renal function * SNF placement Subjective ROS Limited/Unobtainable: No Interval Events: Less short of breath. using BiPAP. Allergies: Coded Allergies: RIVAROXABAN (Verified Allergy, Unknown, 04/05/19) All Systems: reviewed and negative except above Objective Vital Signs Noted General Appearance: no acute distress HEENT: mucous membranes moist Respiratory/Chest: lungs clear Cardiovascular: normal rate Abdomen: soft, non tender Extremities: other - mild chronic edema Neurologic/Psychiatric: alert Labs/Microbiology noted Subjective ROS Limited/Unobtainable: No Allergies: Coded Allergies: RIVAROXABAN (Verified Allergy, Unknown, 04/05/19) Objective Last 24 Hour Vital Signs Date Time Temp Pulse Resp B/P (MAP) Pulse Ox O2 Delivery O2 Flow Rate FiO2 06/12/19 20:15 158/105 06/12/19 20:15 78 158/105 06/12/19 20:00 3.0 06/12/19 20:00 98.4 78 19 158/105 (122) 96 06/12/19 16:00 3.0 06/12/19 16:00 98.9 90 20 132/79 (96) 94 06/12/19 12:00 97.2 76 20 120/73 (89) 93 06/12/19 12:00 3.0 06/12/19 09:00 95 Nasal Cannula 2.0 28 06/12/19 09:00 Nasal Cannula 3.0 06/12/19 08:33 84 06/12/19 08:32 141/87 06/12/19 08:32 141/87 06/12/19 08:31 84 141/87 06/12/19 08:00 3.0 06/12/19 08:00 97.9 84 20 141/87 (105) 94 06/12/19 05:32 70 20 96 Facial 35 06/12/19 04:00 3.0 06/12/19 03:40 71 20 95 Facial 35 06/12/19 01:21 71 22 95 Facial 35 06/12/19 00:00 98.4 85 20 143/97 (112) 94 06/12/19 00:00 3.0 Intake and Output 06/11/19 06/12/19 19:00 07:00 Intake Total 720 ml 100 ml Output Total 900 ml 700 ml Balance -180 ml -600 ml Intake Oral 720 ml 100 ml Output Urine Total 900 ml 700 ml # Voids 3 # Bowel Movements 1 1 Current Medications Medications (Trade) Dose Ordered Sig/David Route PRN Reason Start Time Stop Time Status Last Admin Dose Admin Acetaminophen (Tylenol) 500 mg Q4H PRN ORAL Mild Pain/Temp > 100.5 06/04/19 02:30 07/01/19 02:29 06/12/19 15:49 Acetaminophen/ Hydrocodone Bitart ([place] 10/325) 1 tab Q4H PRN ORAL For Pain 06/11/19 08:00 06/18/19 07:59 Apixaban (Eliquis) 5 mg BID ORAL 06/04/19 09:00 07/01/19 17:59 06/12/19 17:13 Atorvastatin Calcium (Lipitor) 40 mg BEDTIME ORAL 06/04/19 21:00 07/01/19 20:59 06/12/19 20:15 Carvedilol (Coreg) 25 mg EVERY 12 HOURS ORAL 06/04/19 09:00 07/01/19 20:59 06/12/19 20:15 Clonidine HCl (Catapres TTS-3) 1 patch QWEEK TDERMAL 06/08/19 12:00 07/01/19 11:59 06/08/19 13:35 Clonidine HCl (Catapres Tab) 0.1 mg Q4H PRN ORAL For High Blood Pressure 06/04/19 01:15 07/01/19 09:14 06/11/19 20:53 Digoxin (Lanoxin) 0.125 mg DAILY ORAL 06/04/19 09:00 07/02/19 08:59 06/12/19 08:33 Docusate Sodium (Colace) 100 mg THREE TIMES A DAY ORAL 06/04/19 09:00 07/01/19 09:31 06/12/19 08:31 Furosemide (Lasix) 80 mg DAILY ORAL 06/08/19 09:00 07/08/19 08:59 06/12/19 08:32 Gabapentin (Neurontin) 300 mg THREE TIMES A DAY ORAL 06/04/19 09:00 07/01/19 09:32 06/12/19 17:13 Hydralazine HCl (Apresoline) 100 mg Q12HR ORAL 06/06/19 21:00 07/06/19 20:59 06/12/19 20:15 Irbesartan (Avapro) 300 mg DAILY ORAL 06/04/19 09:00 07/02/19 08:59 06/12/19 08:32 Magnesium Oxide (Mag-Ox 400mg) 400 mg THREE TIMES A DAY ORAL 06/07/19 18:00 07/07/19 17:59 06/12/19 17:13 Oxycodone HCl (Roxicodone) 5 mg Q4H PRN ORAL Breakthrough Pain 06/11/19 08:00 06/18/19 07:59 06/12/19 20:16 Potassium Chloride (K-Dur) 40 meq BID ORAL 06/04/19 09:00 07/03/19 08:59 06/12/19 17:13 Mahesh Wise MD Jun 12, 2019 21:05
[2019-06-13] MEDS: oxyCODONE 5mg IR tab ORAL PRN ×3 (02:43→23:10)
[2019-06-13 04:00] VITALS: BP 145/89
[2019-06-13 08:00] VITALS: BP 168/96
[2019-06-13] MEDS: Eliquis 5mg tablet ORAL SCH ×2 (08:18→17:10)
[2019-06-13] MEDS: Irbesartan 150mg tablet ORAL SCH (08:18)
[2019-06-13] MEDS: HYDROcodone/Acetamin 10/325 tab ORAL PRN (08:18)
[2019-06-13] MEDS: Magnesium Oxide 400mg tab ORAL SCH ×3 (08:19→17:10)
[2019-06-13] MEDS: HydrALAZINE 50mg tab ORAL SCH ×2 (08:19→21:04)
[2019-06-13] MEDS: Carvedilol 25mg Tab ORAL SCH ×2 (08:19→21:03)
[2019-06-13] MEDS: Docusate 100mg cap ORAL SCH ×3 (08:19→17:10)
[2019-06-13] MEDS: Furosemide 80mg tab ORAL SCH (08:19)
[2019-06-13] MEDS: Digoxin 0.125mg tab ORAL SCH (08:20)
--- NOTE | 2019-06-13 08:56 | Nephrology Progress Note ---
Assessment/Plan Problem List: (1) Electrolyte imbalance (2) COPD (chronic obstructive pulmonary disease) (3) CO2 retention (4) CHF (congestive heart failure) (5) Obesity, morbid, BMI 50 or higher Assessment (1) Hypokalemia (2) CHF (congestive heart failure) (3) s/p Renal failure (4) Obesity, morbid, BMI 50 or higher (5) CO2 retention (6) COPD (chronic obstructive pulmonary disease) Obesity , NATASHA AT fib with FVR Congestive heart failure, likely diastolic dysfunction. EF 60% Recurrent NSVT. No syncope. Hypertension. Morbid obesity. COPD. Lipidemia. Plan Plan optimize cardiac and pulm status Keep BP in check Monitor lytes Diamox PO as needed per orders per cardio and pulmonary Subjective ROS Limited/Unobtainable: No Constitutional: Reports: malaise, weakness Objective Objective Last 24 Hour Vital Signs Date Time Temp Pulse Resp B/P (MAP) Pulse Ox O2 Delivery O2 Flow Rate FiO2 06/13/19 08:20 85 06/13/19 08:19 168/96 06/13/19 08:19 85 168/96 06/13/19 08:18 168/96 06/13/19 08:00 3.0 06/13/19 08:00 99.2 85 20 168/96 (120) 95 06/13/19 04:00 99.0 83 19 145/89 (107) 92 06/13/19 04:00 3.0 06/13/19 01:16 93 21 96 Facial 35 06/12/19 23:36 92 22 96 Facial 35 06/12/19 21:00 Nasal Cannula 3.0 06/12/19 20:15 158/105 06/12/19 20:15 78 158/105 06/12/19 20:00 3.0 06/12/19 20:00 98.4 78 19 158/105 (122) 96 06/12/19 19:58 96 Nasal Cannula 3.0 32 06/12/19 16:00 3.0 06/12/19 16:00 98.9 90 20 132/79 (96) 94 06/12/19 12:00 97.2 76 20 120/73 (89) 93 06/12/19 12:00 3.0 06/12/19 09:00 95 Nasal Cannula 2.0 28 06/12/19 09:00 Nasal Cannula 3.0 Intake and Output 06/12/19 06/13/19 18:59 06:59 Intake Total 960 ml 200 ml Output Total 1200 ml Balance -240 ml 200 ml Intake Oral 960 ml 200 ml Output Urine Total 1200 ml # Voids 1 3 # Bowel Movements 2 Current Medications Medications (Trade) Dose Ordered Sig/David Route PRN Reason Start Time Stop Time Status Last Admin Dose Admin Acetaminophen (Tylenol) 500 mg Q4H PRN ORAL Mild Pain/Temp > 100.5 06/04/19 02:30 07/01/19 02:29 06/12/19 15:49 Acetaminophen/ Hydrocodone Bitart ([place] 10/325) 1 tab Q4H PRN ORAL For Pain 06/11/19 08:00 06/18/19 07:59 06/13/19 08:18 Apixaban (Eliquis) 5 mg BID ORAL 06/04/19 09:00 07/01/19 17:59 06/13/19 08:18 Atorvastatin Calcium (Lipitor) 40 mg BEDTIME ORAL 06/04/19 21:00 07/01/19 20:59 06/12/19 20:15 Carvedilol (Coreg) 25 mg EVERY 12 HOURS ORAL 06/04/19 09:00 07/01/19 20:59 06/13/19 08:19 Clonidine HCl (Catapres TTS-3) 1 patch QWEEK TDERMAL 06/08/19 12:00 07/01/19 11:59 06/08/19 13:35 Clonidine HCl (Catapres Tab) 0.1 mg Q4H PRN ORAL For High Blood Pressure 06/04/19 01:15 07/01/19 09:14 06/11/19 20:53 Digoxin (Lanoxin) 0.125 mg DAILY ORAL 06/04/19 09:00 07/02/19 08:59 06/13/19 08:20 Docusate Sodium (Colace) 100 mg THREE TIMES A DAY ORAL 06/04/19 09:00 07/01/19 09:31 06/13/19 08:19 Furosemide (Lasix) 80 mg DAILY ORAL 06/08/19 09:00 07/08/19 08:59 06/13/19 08:19 Gabapentin (Neurontin) 300 mg THREE TIMES A DAY ORAL 06/04/19 09:00 07/01/19 09:32 06/13/19 08:19 Hydralazine HCl (Apresoline) 100 mg Q12HR ORAL 06/06/19 21:00 07/06/19 20:59 06/13/19 08:19 Irbesartan (Avapro) 300 mg DAILY ORAL 06/04/19 09:00 07/02/19 08:59 06/13/19 08:18 Magnesium Oxide (Mag-Ox 400mg) 400 mg THREE TIMES A DAY ORAL 06/07/19 18:00 07/07/19 17:59 06/13/19 08:19 Oxycodone HCl (Roxicodone) 5 mg Q4H PRN ORAL Breakthrough Pain 06/11/19 08:00 06/18/19 07:59 06/13/19 02:43 Potassium Chloride (K-Dur) 40 meq BID ORAL 06/04/19 09:00 07/03/19 08:59 06/13/19 08:19 Height (Feet): 5 Height (Inches): 10.00 Weight (Pounds): 438 General Appearance: mild distress Cardiovascular: normal rate Respiratory/Chest: decreased breath sounds Abdomen: distended Objective no change Bebeto Yin MD Jun 13, 2019 08:56
--- NOTE | 2019-06-13 08:58 | General Progress Note ---
Assessment/Plan Assessment/Plan: (1) Lumbar DDD (2) Lumbar Spondylosis (3) Morbid obesity Patient to be continued on oxycodone and [place]. D/w Dr. Stack and he concurred. Subjective Date patient seen: Jun 13, 2019 Time patient seen: 07:30 - am Allergies: Coded Allergies: RIVAROXABAN (Verified Allergy, Unknown, 04/05/19) Subjective Constitutional: Reports: weakness HEENT: Reports: no symptoms Cardiovascular: Reports: no symptoms Respiratory: Reports: shortness of breath Gastrointestinal/Abdominal: Reports: no symptoms Genitourinary: Reports: no symptoms Neurologic/Psychiatric: Reports: no symptoms Endocrine: Reports: no symptoms Hematologic/Lymphatic: Reports: no symptoms Subjective Patient reports that he is feeling slightly better. Pain has been tolerated on the Oxycodone and [place]. No new complaints at this time. Objective Last 24 Hour Vital Signs Date Time Temp Pulse Resp B/P (MAP) Pulse Ox O2 Delivery O2 Flow Rate FiO2 06/13/19 08:20 85 06/13/19 08:19 168/96 06/13/19 08:19 85 168/96 06/13/19 08:18 168/96 06/13/19 08:00 3.0 06/13/19 08:00 99.2 85 20 168/96 (120) 95 06/13/19 04:00 99.0 83 19 145/89 (107) 92 06/13/19 04:00 3.0 06/13/19 01:16 93 21 96 Facial 35 06/12/19 23:36 92 22 96 Facial 35 06/12/19 21:00 Nasal Cannula 3.0 06/12/19 20:15 158/105 06/12/19 20:15 78 158/105 06/12/19 20:00 3.0 06/12/19 20:00 98.4 78 19 158/105 (122) 96 06/12/19 19:58 96 Nasal Cannula 3.0 32 06/12/19 16:00 3.0 06/12/19 16:00 98.9 90 20 132/79 (96) 94 06/12/19 12:00 97.2 76 20 120/73 (89) 93 06/12/19 12:00 3.0 06/12/19 09:00 95 Nasal Cannula 2.0 28 06/12/19 09:00 Nasal Cannula 3.0 Intake and Output 06/12/19 06/13/19 19:00 07:00 Intake Total 960 ml 200 ml Output Total 1200 ml Balance -240 ml 200 ml Intake Oral 960 ml 200 ml Output Urine Total 1200 ml # Voids 1 3 # Bowel Movements 2 Height (Feet): 5 Height (Inches): 10.00 Weight (Pounds): 438 Objective General Appearance: no apparent distress, alert EENT: PERRL/EOMI Neck: non-tender, normal alignment Cardiovascular: normal rate, regular rhythm Respiratory/Chest: decreased breath sounds Abdomen: non tender, soft Extremities: non-tender Edema: moderate edema Neurologic: alert, oriented x 3 Skin: warm/dry Osito Sultana Jun 13, 2019 08:58
--- NOTE | 2019-06-13 09:18 | General Progress Note ---
Assessment/Plan Assessment/Plan: S: I am feeling pain O: remains in mild- sob with slight out of bed activity. complains of pain in all joints . ambulates using walker out of bed Physical ExamVital Signs General Appearance: alert, GCS 15, obese, Chronically Ill Head: normocephalicEyes: bilateral eye PERRL ENT: TMs + canals normal, uvula midlineNeck: full range of motion Respiratory: lungs clear, decreased breath soundsCardiovascular #1: edema - 1 + Edema Gastrointestinal: normal inspection, normal bowel sounds, non tender Musculoskeletal: morbid obesity, minimal non piting edema in LE. Neurologic: alert, motor strength/tone normal, reel winder III-XII nml as tested, oriented [id number]: normal inspection Skin: other - Bilateral scaly rash to the lower extremities Meds: reviewed and reconciled in the chart Assessment/Plan: 1. 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 Morbid obesity 4. HTN 5. Multiple joint OA 6. Afib 7. NATASHA 8. ARF : improved 10 . GI-DVT prophylaxia 11. Moderate- PAH 12. Hypokalemia Plan: High risk for Re- admission in future SNIF placement will decrease the likely wallace of readmission Pulmonary, Cardiology and Nephrology notes reviewed Better BP control PRN pain medication / D/w RN at bed side Disposition : Will followup with PT recommendation , SNIF or to patient's his own plan of care Subjective Allergies: Coded Allergies: RIVAROXABAN (Verified Allergy, Unknown, 04/05/19) Objective Last 24 Hour Vital Signs Date Time Temp Pulse Resp B/P (MAP) Pulse Ox O2 Delivery O2 Flow Rate FiO2 06/13/19 08:20 85 06/13/19 08:19 168/96 06/13/19 08:19 85 168/96 06/13/19 08:18 168/96 06/13/19 08:00 3.0 06/13/19 08:00 99.2 85 20 168/96 (120) 95 06/13/19 04:00 99.0 83 19 145/89 (107) 92 06/13/19 04:00 3.0 06/13/19 01:16 93 21 96 Facial 35 06/12/19 23:36 92 22 96 Facial 35 06/12/19 21:00 Nasal Cannula 3.0 06/12/19 20:15 158/105 06/12/19 20:15 78 158/105 06/12/19 20:00 3.0 06/12/19 20:00 98.4 78 19 158/105 (122) 96 06/12/19 19:58 96 Nasal Cannula 3.0 32 06/12/19 16:00 3.0 06/12/19 16:00 98.9 90 20 132/79 (96) 94 06/12/19 12:00 97.2 76 20 120/73 (89) 93 06/12/19 12:00 3.0 Intake and Output 06/12/19 06/13/19 18:59 06:59 Intake Total 960 ml 200 ml Output Total 1200 ml Balance -240 ml 200 ml Intake Oral 960 ml 200 ml Output Urine Total 1200 ml # Voids 1 3 # Bowel Movements 2 Height (Feet): 5 Height (Inches): 10.00 Weight (Pounds): 438 Desirae Haro MD Jun 13, 2019 09:18
--- NOTE | 2019-06-13 09:44 | Pulmonology Progress Note ---
Assessment/Plan Assessment/Plan Pulmonary Progress Note Assessment/Plan Problem List: * CHF * Edema * Chronic hypercapnic respiratory failure * Possible COPD * Afib Plan: * Cont BiPAP PRN QHS * HHN * Await placement * Monitor volumes, diuresis per cardiology/renal * monitor renal function * SNF placement Subjective Interval Events: Less short of breath. Leg swelling improving, using BiPAP. Allergies: Coded Allergies: RIVAROXABAN (Verified Allergy, Unknown, 04/05/19) All Systems: reviewed and negative except above Objective Vital Signs Noted General Appearance: no acute distress HEENT: mucous membranes moist Respiratory/Chest: lungs clear Cardiovascular: normal rate Abdomen: soft, non tender Extremities: other - mild chronic edema Neurologic/Psychiatric: alert Labs/Microbiology noted Seen earlier Subjective ROS Limited/Unobtainable: No Allergies: Coded Allergies: RIVAROXABAN (Verified Allergy, Unknown, 04/05/19) Objective Last 24 Hour Vital Signs Date Time Temp Pulse Resp B/P (MAP) Pulse Ox O2 Delivery O2 Flow Rate FiO2 06/13/19 08:20 85 06/13/19 08:19 168/96 06/13/19 08:19 85 168/96 06/13/19 08:18 168/96 06/13/19 08:00 3.0 06/13/19 08:00 99.2 85 20 168/96 (120) 95 06/13/19 04:00 99.0 83 19 145/89 (107) 92 06/13/19 04:00 3.0 06/13/19 01:16 93 21 96 Facial 35 06/12/19 23:36 92 22 96 Facial 35 06/12/19 21:00 Nasal Cannula 3.0 06/12/19 20:15 158/105 06/12/19 20:15 78 158/105 06/12/19 20:00 3.0 06/12/19 20:00 98.4 78 19 158/105 (122) 96 06/12/19 19:58 96 Nasal Cannula 3.0 32 06/12/19 16:00 3.0 06/12/19 16:00 98.9 90 20 132/79 (96) 94 06/12/19 12:00 97.2 76 20 120/73 (89) 93 06/12/19 12:00 3.0 Intake and Output 06/12/19 06/13/19 18:59 06:59 Intake Total 960 ml 200 ml Output Total 1200 ml Balance -240 ml 200 ml Intake Oral 960 ml 200 ml Output Urine Total 1200 ml # Voids 1 3 # Bowel Movements 2 Current Medications Medications (Trade) Dose Ordered Sig/David Route PRN Reason Start Time Stop Time Status Last Admin Dose Admin Acetaminophen (Tylenol) 500 mg Q4H PRN ORAL Mild Pain/Temp > 100.5 06/04/19 02:30 07/01/19 02:29 06/12/19 15:49 Acetaminophen/ Hydrocodone Bitart ([place] 10/325) 1 tab Q4H PRN ORAL For Pain 06/11/19 08:00 06/18/19 07:59 06/13/19 08:18 Apixaban (Eliquis) 5 mg BID ORAL 06/04/19 09:00 07/01/19 17:59 06/13/19 08:18 Atorvastatin Calcium (Lipitor) 40 mg BEDTIME ORAL 06/04/19 21:00 07/01/19 20:59 06/12/19 20:15 Carvedilol (Coreg) 25 mg EVERY 12 HOURS ORAL 06/04/19 09:00 07/01/19 20:59 06/13/19 08:19 Clonidine HCl (Catapres TTS-3) 1 patch QWEEK TDERMAL 06/08/19 12:00 07/01/19 11:59 06/08/19 13:35 Clonidine HCl (Catapres Tab) 0.1 mg Q4H PRN ORAL For High Blood Pressure 06/04/19 01:15 07/01/19 09:14 06/11/19 20:53 Digoxin (Lanoxin) 0.125 mg DAILY ORAL 06/04/19 09:00 07/02/19 08:59 06/13/19 08:20 Docusate Sodium (Colace) 100 mg THREE TIMES A DAY ORAL 06/04/19 09:00 07/01/19 09:31 06/13/19 08:19 Furosemide (Lasix) 80 mg DAILY ORAL 06/08/19 09:00 07/08/19 08:59 06/13/19 08:19 Gabapentin (Neurontin) 300 mg THREE TIMES A DAY ORAL 06/04/19 09:00 07/01/19 09:32 06/13/19 08:19 Hydralazine HCl (Apresoline) 100 mg Q12HR ORAL 06/06/19 21:00 07/06/19 20:59 06/13/19 08:19 Irbesartan (Avapro) 300 mg DAILY ORAL 06/04/19 09:00 07/02/19 08:59 06/13/19 08:18 Magnesium Oxide (Mag-Ox 400mg) 400 mg THREE TIMES A DAY ORAL 06/07/19 18:00 07/07/19 17:59 06/13/19 08:19 Oxycodone HCl (Roxicodone) 5 mg Q4H PRN ORAL Breakthrough Pain 06/11/19 08:00 06/18/19 07:59 06/13/19 02:43 Potassium Chloride (K-Dur) 40 meq BID ORAL 06/04/19 09:00 07/03/19 08:59 06/13/19 08:19 Mahesh Wise MD Jun 13, 2019 09:44
--- NOTE | 2019-06-13 11:36 | Cardiac Electrophysiology PN ---
Assessment/Plan Assessment/Plan 1. Paroxysmal atrial fibrillation, converted to sinus rhythm with frequent PACs. Continue digoxin 0.125 mg daily, Coreg 25 mg b.i.d. and Eliquis 5 mg b.i.d. DCed tele 2. CHF exacerbation due to diastolic dysfunction. On Lasix 80 mg po daily 3. Hypertension, on Avapro 300 mg daily, Coreg 25 bid, clonidine patch #3 weekly , Lasix and Hydralazine 100 bid 4. Obstructive sleep apnea. 5. COPD.On BIPAP 6. Morbid obesity DW RN Subjective Subjective On BIPAP. Doesn't follow fluid restriction. Placement pending Objective Last 24 Hour Vital Signs Date Time Temp Pulse Resp B/P (MAP) Pulse Ox O2 Delivery O2 Flow Rate FiO2 06/13/19 09:00 Nasal Cannula 3.0 06/13/19 08:20 85 06/13/19 08:19 168/96 06/13/19 08:19 85 168/96 06/13/19 08:18 168/96 06/13/19 08:00 3.0 06/13/19 08:00 99.2 85 20 168/96 (120) 95 06/13/19 04:00 99.0 83 19 145/89 (107) 92 06/13/19 04:00 3.0 06/13/19 01:16 93 21 96 Facial 35 06/12/19 23:36 92 22 96 Facial 35 06/12/19 21:00 Nasal Cannula 3.0 06/12/19 20:15 158/105 06/12/19 20:15 78 158/105 06/12/19 20:00 3.0 06/12/19 20:00 98.4 78 19 158/105 (122) 96 06/12/19 19:58 96 Nasal Cannula 3.0 32 06/12/19 16:00 3.0 06/12/19 16:00 98.9 90 20 132/79 (96) 94 06/12/19 12:00 97.2 76 20 120/73 (89) 93 06/12/19 12:00 3.0 Intake and Output 06/12/19 06/13/19 19:00 07:00 Intake Total 960 ml 200 ml Output Total 1200 ml Balance -240 ml 200 ml Intake Oral 960 ml 200 ml Output Urine Total 1200 ml # Voids 1 3 # Bowel Movements 2 Objective HEAD AND NECK: Mild JVD. LUNGS: Coarse rhonchi. CARDIOVASCULAR: Regular S1 and S2 with no gallop or murmur. ABDOMEN: Obese. EXTREMITIES: 2+ pitting edema. Sandor Doll MD Jun 13, 2019 11:36
[2019-06-13 12:00] VITALS: BP 132/82
[2019-06-13 16:00] VITALS: BP 176/106
[2019-06-13] MEDS ORDERED: ACETAMINOPHEN500 M5 ORAL (16:44)
[2019-06-13] MEDS ORDERED: ELIQUIS5 MG PO (16:45)
[2019-06-13] MEDS ORDERED: CARVEDILOL25 MG ORAL (16:47)
[2019-06-13] MEDS ORDERED: DIGOXIN0.125 MG/2 ORAL (16:48)
[2019-06-13] MEDS ORDERED: DOCUSATE SODIU100 MG ORAL (16:49)
[2019-06-13] MEDS ORDERED: FUROSEMIDE80 M1 ORAL (16:49)
[2019-06-13] MEDS ORDERED: GABAPENTIN300 MG ORAL (16:50)
[2019-06-13] MEDS ORDERED: HYDROCODON-ACE1 EA13 ORAL (16:52)
[2019-06-13] MEDS ORDERED: HYDRALAZINE HC100 MG ORAL (16:52)
[2019-06-13] MEDS ORDERED: AVAPRO300 MG ORAL (16:53)
[2019-06-13] MEDS ORDERED: MAGNESIUM OXID400 M1 ORAL (16:54)
[2019-06-13] MEDS ORDERED: OXYCODONE HCL5 M2 ORAL (16:55)
[2019-06-13] MEDS ORDERED: POTASSIUM40 MEQ/11 PO (16:56)
[2019-06-13 19:37] VITALS: BP 156/96
[2019-06-13] MEDS: Atorvastatin 20mg tab ORAL SCH (21:04)
[2019-06-14 04:30] VITALS: BP 152/91
[2019-06-14] MEDS: oxyCODONE 5mg IR tab ORAL PRN ×2 (06:01→17:19)
[2019-06-14 07:11] LABS: ALANINE AMINOTRANSFERASE 22 U/L (12-78); ALBUMIN/GLOBULIN RATIO 0.9 (1.0-2.7); ALKALINE PHOSPHATASE 53 U/L (46-116); ANION GAP 2 mmol/L (5-15); ASPARTATE AMINO TRANSFERASE 12 U/L (15-37); BILIRUBIN,TOTAL 0.4 MG/DL (0.2-1.0); BLOOD UREA NITROGEN 17 mg/dL (7-18); CALCIUM 8.7 MG/DL (8.5-10.1); CARBON DIOXIDE 37 MMOL/L (21-32); CHLORIDE 108 MMOL/L (98-107); CREATININE 1.3 MG/DL (0.55-1.30); PHOSPHORUS 4.6 MG/DL (2.5-4.9); SODIUM 146 MMOL/L (136-145)
[2019-06-14 07:19] LABS: HEMOGLOBIN 10.3 G/DL (14.2-18.0); MEAN CORPUSCULAR VOLUME 77 FL (80-99); RED BLOOD COUNT 4.14 M/UL (4.70-6.10); RED CELL DISTRIBUTION WIDTH 15.7 % (11.6-14.8); WHITE BLOOD COUNT 7.5 K/UL (4.8-10.8)
[2019-06-14 07:20] LABS: BASOPHILS % (AUTO) 1.2 % (0.0-2.0); EOSINOPHILS % (AUTO) 5.2 % (0.0-3.0); LYMPHOCYTES % (AUTO) 25.5 % (20.0-45.0); MONOCYTES % (AUTO) 8.6 % (1.0-10.0); NEUTROPHILS % (AUTO) 59.4 % (45.0-75.0); PLATELET COUNT 199 K/UL (150-450)
[2019-06-14 08:00] VITALS: BP 152/86
--- NOTE | 2019-06-14 09:00 | General Progress Note ---
Assessment/Plan Assessment/Plan: (1) Lumbar DDD (2) Lumbar Spondylosis (3) Morbid obesity Patient to be continued on oxycodone and [place]. D/w Dr. Stack and he concurred. Subjective Date patient seen: Jun 15, 2019 Time patient seen: 07:45 - am Allergies: Coded Allergies: RIVAROXABAN (Verified Allergy, Unknown, 04/05/19) Subjective Constitutional: Reports: weakness HEENT: Reports: no symptoms Cardiovascular: Reports: no symptoms Respiratory: Reports: shortness of breath Gastrointestinal/Abdominal: Reports: no symptoms Genitourinary: Reports: no symptoms Neurologic/Psychiatric: Reports: no symptoms Endocrine: Reports: no symptoms Hematologic/Lymphatic: Reports: no symptoms Subjective Patient showing no signs of pain or distress. Pain has been at a moderate level and tolerated on the [place] and Oxycodone. No new complaints at this time. Objective Last 24 Hour Vital Signs Date Time Temp Pulse Resp B/P (MAP) Pulse Ox O2 Delivery O2 Flow Rate FiO2 06/14/19 08:00 98.7 80 20 152/86 (108) 96 06/14/19 05:00 88 20 96 Facial 35 06/14/19 04:30 98.8 74 18 152/91 (111) 96 06/14/19 04:00 3.0 06/14/19 02:34 86 20 97 Facial 35 06/14/19 01:48 85 22 96 Facial 35 06/14/19 00:28 3.0 06/13/19 21:37 98 20 96 Facial 35 06/13/19 21:04 156/96 06/13/19 21:03 87 156/96 06/13/19 20:33 Nasal Cannula 3.0 06/13/19 20:22 97 Bi-Pap 35 06/13/19 20:22 87 26 97 Facial 35 06/13/19 19:39 3.0 06/13/19 19:37 98.1 73 20 156/96 (116) 95 06/13/19 17:12 176/106 06/13/19 16:00 99.3 78 19 176/106 (129) 94 06/13/19 16:00 3.0 06/13/19 12:00 3.0 06/13/19 12:00 98.4 82 20 132/82 (99) 95 06/13/19 09:32 95 Nasal Cannula 3.0 32 Intake and Output 06/13/19 06/14/19 19:00 07:00 Intake Total 480 ml 300 ml Balance 480 ml 300 ml Intake Oral 480 ml 300 ml # Voids 4 3 Laboratory Tests 06/14/19 06:20: White Blood Count 7.5, Red Blood Count 4.14L, Hemoglobin 10.3L, Hematocrit 32.0L , Mean Corpuscular Volume 77L, Mean Corpuscular Hemoglobin 24.9L, Mean Corpuscular Hemoglobin Concent 32.2, Red Cell Distribution Width 15.7H, Platelet Count 199, Mean Platelet Volume 9.0, Neutrophils (%) (Auto) 59.4, Lymphocytes (%) (Auto) 25.5, Monocytes (%) (Auto) 8.6, Eosinophils (%) (Auto) 5.2H, Basophils (%) (Auto) 1.2, Sodium Level 146H, Potassium Level 4.0, Chloride Level 108H, Carbon Dioxide Level 37H, Anion Gap 2L, Blood Urea Nitrogen 17, Creatinine 1.3, Estimat Glomerular Filtration Rate > 60, Glucose Level 118H, Calcium Level 8.7, Phosphorus Level 4.6, Magnesium Level 2.0, Total Bilirubin 0.4, Aspartate Amino Transf (AST/SGOT) 12L, Alanine Aminotransferase ( ALT/SGPT) 22, Alkaline Phosphatase 53, C-Reactive Protein, Quantitative 1.8H, Pro-B-Type Natriuretic Peptide 375H, Total Protein 6.4, Albumin 3.0L, Globulin 3.4, Albumin/Globulin Ratio 0.9L Height (Feet): 5 Height (Inches): 10.00 Weight (Pounds): 438 Objective General Appearance: no apparent distress, alert EENT: PERRL/EOMI Neck: non-tender, normal alignment Cardiovascular: normal rate, regular rhythm Respiratory/Chest: decreased breath sounds Abdomen: non tender, soft Extremities: non-tender Edema: moderate edema Neurologic: alert, oriented x 3 Skin: warm/dry Osito Sultana Jun 14, 2019 09:00
[2019-06-14] MEDS: Carvedilol 25mg Tab ORAL SCH ×2 (09:06→21:32)
[2019-06-14] MEDS: Docusate 100mg cap ORAL SCH ×3 (09:06→17:18)
[2019-06-14] MEDS: Magnesium Oxide 400mg tab ORAL SCH ×3 (09:07→17:18)
[2019-06-14] MEDS: Eliquis 5mg tablet ORAL SCH ×2 (09:07→17:18)
[2019-06-14] MEDS: Furosemide 80mg tab ORAL SCH (09:07)
[2019-06-14] MEDS: HydrALAZINE 50mg tab ORAL SCH ×2 (09:08→21:32)
[2019-06-14] MEDS: Digoxin 0.125mg tab ORAL SCH (09:08)
[2019-06-14] MEDS: Irbesartan 150mg tablet ORAL SCH (09:08)
--- NOTE | 2019-06-14 10:09 | General Progress Note ---
Assessment/Plan Assessment/Plan: S: I am feeling pain O: remains in mild- sob with slight out of bed activity. complains of pain in all joints . ambulates using walker out of bed Physical ExamVital Signs General Appearance: alert, GCS 15, obese, Chronically Ill Head: normocephalicEyes: bilateral eye PERRL ENT: TMs + canals normal, uvula midlineNeck: full range of motion Respiratory: lungs clear, decreased breath soundsCardiovascular #1: edema - 1 + Edema Gastrointestinal: normal inspection, normal bowel sounds, non tender Musculoskeletal: morbid obesity, minimal non piting edema in LE. 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 Morbid obesity 4. HTN 5. Multiple joint OA 6. Afib 7. NATASHA 8. ARF : improved 10 . GI-DVT prophylaxia 11. Moderate- PAH 12. Hypokalemia Plan: High risk for Re- admission in future SNIF placement will decrease the likely wallace of readmission Pulmonary, Cardiology and Nephrology notes reviewed Better BP control PRN pain medication / D/w RN at bed side Disposition : Will followup with PT recommendation , SNIF or to patient's his own plan of care Subjective Allergies: Coded Allergies: RIVAROXABAN (Verified Allergy, Unknown, 04/05/19) Objective Last 24 Hour Vital Signs Date Time Temp Pulse Resp B/P (MAP) Pulse Ox O2 Delivery O2 Flow Rate FiO2 06/14/19 09:08 152/86 06/14/19 09:08 152/86 06/14/19 09:08 80 06/14/19 09:06 80 152/86 06/14/19 09:00 Nasal Cannula 3.0 06/14/19 08:00 3.0 06/14/19 08:00 98.7 80 20 152/86 (108) 96 06/14/19 05:00 88 20 96 Facial 35 06/14/19 04:30 98.8 74 18 152/91 (111) 96 06/14/19 04:00 3.0 06/14/19 02:34 86 20 97 Facial 35 06/14/19 01:48 85 22 96 Facial 35 06/14/19 00:28 3.0 06/13/19 21:37 98 20 96 Facial 35 06/13/19 21:04 156/96 06/13/19 21:03 87 156/96 06/13/19 20:33 Nasal Cannula 3.0 06/13/19 20:22 97 Bi-Pap 35 06/13/19 20:22 87 26 97 Facial 35 06/13/19 19:39 3.0 06/13/19 19:37 98.1 73 20 156/96 (116) 95 06/13/19 17:12 176/106 06/13/19 16:00 99.3 78 19 176/106 (129) 94 06/13/19 16:00 3.0 06/13/19 12:00 3.0 06/13/19 12:00 98.4 82 20 132/82 (99) 95 Intake and Output 06/13/19 06/14/19 19:00 07:00 Intake Total 480 ml 300 ml Balance 480 ml 300 ml Intake Oral 480 ml 300 ml # Voids 4 3 Laboratory Tests 06/14/19 06:20: White Blood Count 7.5, Red Blood Count 4.14L, Hemoglobin 10.3L, Hematocrit 32.0L , Mean Corpuscular Volume 77L, Mean Corpuscular Hemoglobin 24.9L, Mean Corpuscular Hemoglobin Concent 32.2, Red Cell Distribution Width 15.7H, Platelet Count 199, Mean Platelet Volume 9.0, Neutrophils (%) (Auto) 59.4, Lymphocytes (%) (Auto) 25.5, Monocytes (%) (Auto) 8.6, Eosinophils (%) (Auto) 5.2H, Basophils (%) (Auto) 1.2, Sodium Level 146H, Potassium Level 4.0, Chloride Level 108H, Carbon Dioxide Level 37H, Anion Gap 2L, Blood Urea Nitrogen 17, Creatinine 1.3, Estimat Glomerular Filtration Rate > 60, Glucose Level 118H, Calcium Level 8.7, Phosphorus Level 4.6, Magnesium Level 2.0, Total Bilirubin 0.4, Aspartate Amino Transf (AST/SGOT) 12L, Alanine Aminotransferase ( ALT/SGPT) 22, Alkaline Phosphatase 53, C-Reactive Protein, Quantitative 1.8H, Pro-B-Type Natriuretic Peptide 375H, Total Protein 6.4, Albumin 3.0L, Globulin 3.4, Albumin/Globulin Ratio 0.9L Height (Feet): 5 Height (Inches): 10.00 Weight (Pounds): 438 Desirae Haro MD Jun 14, 2019 10:09
[2019-06-14] MEDS: HYDROcodone/Acetamin 10/325 tab ORAL PRN (11:53)
[2019-06-14 12:00] VITALS: BP 134/75
--- NOTE | 2019-06-14 12:16 | Cardiac Electrophysiology PN ---
Assessment/Plan Assessment/Plan 1. Paroxysmal atrial fibrillation, converted to sinus rhythm with frequent PACs. Continue digoxin 0.125 mg daily, Coreg 25 mg b.i.d. and Eliquis 5 mg b.i.d. 2. CHF exacerbation due to diastolic dysfunction. On Lasix 80 mg po daily 3. Hypertension, on Avapro 300 mg daily, Coreg 25 bid, clonidine patch #3 weekly , Lasix and Hydralazine 100 bid 4. Obstructive sleep apnea. 5. COPD.On BIPAP 6. Morbid obesity DW RN Subjective Subjective On BIPAP at night. Placement still pending Objective Last 24 Hour Vital Signs Date Time Temp Pulse Resp B/P (MAP) Pulse Ox O2 Delivery O2 Flow Rate FiO2 06/14/19 09:08 152/86 06/14/19 09:08 152/86 06/14/19 09:08 80 06/14/19 09:06 80 152/86 06/14/19 09:00 Nasal Cannula 3.0 06/14/19 08:00 3.0 06/14/19 08:00 98.7 80 20 152/86 (108) 96 06/14/19 05:00 88 20 96 Facial 35 06/14/19 04:30 98.8 74 18 152/91 (111) 96 06/14/19 04:00 3.0 06/14/19 02:34 86 20 97 Facial 35 06/14/19 01:48 85 22 96 Facial 35 06/14/19 00:28 3.0 06/13/19 21:37 98 20 96 Facial 35 06/13/19 21:04 156/96 06/13/19 21:03 87 156/96 06/13/19 20:33 Nasal Cannula 3.0 06/13/19 20:22 97 Bi-Pap 35 06/13/19 20:22 87 26 97 Facial 35 06/13/19 19:39 3.0 06/13/19 19:37 98.1 73 20 156/96 (116) 95 06/13/19 17:12 176/106 06/13/19 16:00 99.3 78 19 176/106 (129) 94 06/13/19 16:00 3.0 Intake and Output 06/13/19 06/14/19 19:00 07:00 Intake Total 480 ml 300 ml Balance 480 ml 300 ml Intake Oral 480 ml 300 ml # Voids 4 3 Laboratory Tests Test 06/14/19 06:20 White Blood Count 7.5 K/UL (4.8-10.8) Red Blood Count 4.14 M/UL (4.70-6.10) L Hemoglobin 10.3 G/DL (14.2-18.0) L Hematocrit 32.0 % (42.0-52.0) L Mean Corpuscular Volume 77 FL (80-99) L Mean Corpuscular Hemoglobin 24.9 PG (27.0-31.0) L Mean Corpuscular Hemoglobin Concent 32.2 G/DL (32.0-36.0) Red Cell Distribution Width 15.7 % (11.6-14.8) H Platelet Count 199 K/UL (150-450) Mean Platelet Volume 9.0 FL (6.5-10.1) Neutrophils (%) (Auto) 59.4 % (45.0-75.0) Lymphocytes (%) (Auto) 25.5 % (20.0-45.0) Monocytes (%) (Auto) 8.6 % (1.0-10.0) Eosinophils (%) (Auto) 5.2 % (0.0-3.0) H Basophils (%) (Auto) 1.2 % (0.0-2.0) Sodium Level 146 MMOL/L (136-145) H Potassium Level 4.0 MMOL/L (3.5-5.1) Chloride Level 108 MMOL/L (98-107) H Carbon Dioxide Level 37 MMOL/L (21-32) H Anion Gap 2 mmol/L (5-15) L Blood Urea Nitrogen 17 mg/dL (7-18) Creatinine 1.3 MG/DL (0.55-1.30) Estimat Glomerular Filtration Rate > 60 mL/min (>60) Glucose Level 118 MG/DL (74-106) H Calcium Level 8.7 MG/DL (8.5-10.1) Phosphorus Level 4.6 MG/DL (2.5-4.9) Magnesium Level 2.0 MG/DL (1.8-2.4) Total Bilirubin 0.4 MG/DL (0.2-1.0) Aspartate Amino Transf (AST/SGOT) 12 U/L (15-37) L Alanine Aminotransferase (ALT/SGPT) 22 U/L (12-78) Alkaline Phosphatase 53 U/L (46-116) C-Reactive Protein, Quantitative 1.8 mg/dL (0.00-0.90) H Pro-B-Type Natriuretic Peptide 375 pg/mL (0-125) H Total Protein 6.4 G/DL (6.4-8.2) Albumin 3.0 G/DL (3.4-5.0) L Globulin 3.4 g/dL Albumin/Globulin Ratio 0.9 (1.0-2.7) L Objective HEAD AND NECK: Mild JVD. LUNGS: Coarse rhonchi. CARDIOVASCULAR: Regular S1 and S2 with no gallop or murmur. ABDOMEN: Obese. EXTREMITIES: 2+ pitting edema. Sandor Doll MD Jun 14, 2019 12:16
[2019-06-14 16:00] VITALS: BP 140/81
--- NOTE | 2019-06-14 17:11 | Nephrology Progress Note ---
Assessment/Plan Problem List: (1) Electrolyte imbalance (2) COPD (chronic obstructive pulmonary disease) (3) CO2 retention (4) CHF (congestive heart failure) (5) Obesity, morbid, BMI 50 or higher Assessment (1) Hypokalemia (2) CHF (congestive heart failure) (3) s/p Renal failure (4) Obesity, morbid, BMI 50 or higher (5) CO2 retention (6) COPD (chronic obstructive pulmonary disease) Obesity , NATASHA AT fib with FVR Congestive heart failure, likely diastolic dysfunction. EF 60% Recurrent NSVT. No syncope. Hypertension. Morbid obesity. COPD. Lipidemia. Plan Plan optimize cardiac and pulm status Keep BP in check Monitor lytes Diamox PO as needed per orders per cardio and pulmonary Subjective ROS Limited/Unobtainable: No Constitutional: Reports: malaise Objective Objective Last 24 Hour Vital Signs Date Time Temp Pulse Resp B/P (MAP) Pulse Ox O2 Delivery O2 Flow Rate FiO2 06/14/19 16:00 98.6 77 20 140/81 (100) 94 06/14/19 16:00 3.0 06/14/19 12:00 3.0 06/14/19 12:00 98.9 81 20 134/75 (94) 94 06/14/19 09:08 152/86 06/14/19 09:08 152/86 06/14/19 09:08 80 06/14/19 09:06 80 152/86 06/14/19 09:00 Nasal Cannula 3.0 06/14/19 08:00 3.0 06/14/19 08:00 98.7 80 20 152/86 (108) 96 06/14/19 05:00 88 20 96 Facial 35 06/14/19 04:30 98.8 74 18 152/91 (111) 96 06/14/19 04:00 3.0 06/14/19 02:34 86 20 97 Facial 35 06/14/19 01:48 85 22 96 Facial 35 06/14/19 00:28 3.0 06/13/19 21:37 98 20 96 Facial 35 06/13/19 21:04 156/96 06/13/19 21:03 87 156/96 06/13/19 20:33 Nasal Cannula 3.0 06/13/19 20:22 97 Bi-Pap 35 2/10/20 20:22 87 26 97 Facial 35 06/13/19 19:39 3.0 06/13/19 19:37 98.1 73 20 156/96 (116) 95 06/13/19 17:12 176/106 Intake and Output 06/13/19 06/14/19 19:00 07:00 Intake Total 480 ml 300 ml Balance 480 ml 300 ml Intake Oral 480 ml 300 ml # Voids 4 3 Laboratory Tests 06/14/19 06:20: White Blood Count 7.5, Red Blood Count 4.14L, Hemoglobin 10.3L, Hematocrit 32.0L , Mean Corpuscular Volume 77L, Mean Corpuscular Hemoglobin 24.9L, Mean Corpuscular Hemoglobin Concent 32.2, Red Cell Distribution Width 15.7H, Platelet Count 199, Mean Platelet Volume 9.0, Neutrophils (%) (Auto) 59.4, Lymphocytes (%) (Auto) 25.5, Monocytes (%) (Auto) 8.6, Eosinophils (%) (Auto) 5.2H, Basophils (%) (Auto) 1.2, Sodium Level 146H, Potassium Level 4.0, Chloride Level 108H, Carbon Dioxide Level 37H, Anion Gap 2L, Blood Urea Nitrogen 17, Creatinine 1.3, Estimat Glomerular Filtration Rate > 60, Glucose Level 118H, Calcium Level 8.7, Phosphorus Level 4.6, Magnesium Level 2.0, Total Bilirubin 0.4, Aspartate Amino Transf (AST/SGOT) 12L, Alanine Aminotransferase ( ALT/SGPT) 22, Alkaline Phosphatase 53, C-Reactive Protein, Quantitative 1.8H, Pro-B-Type Natriuretic Peptide 375H, Total Protein 6.4, Albumin 3.0L, Globulin 3.4, Albumin/Globulin Ratio 0.9L Height (Feet): 5 Height (Inches): 10.00 Weight (Pounds): 438 General Appearance: no apparent distress EENT: other - BIPAP Respiratory/Chest: decreased breath sounds Abdomen: distended Objective no change Bebeto Yin MD Jun 14, 2019 17:11
[2019-06-14 19:55] VITALS: BP 163/105
[2019-06-14] MEDS: Atorvastatin 20mg tab ORAL SCH (21:32)
--- NOTE | 2019-06-14 23:15 | Pulmonology Progress Note ---
Assessment/Plan Assessment/Plan Pulmonary Progress Note Assessment/Plan Problem List: * CHF * Edema * Chronic hypercapnic respiratory failure * Possible COPD * Afib Plan: * Cont BiPAP PRN QHS * HHN * Await placement * Monitor volumes, diuresis per cardiology/renal * monitor renal function * SNF placement Subjective Interval Events: Less short of breath. Leg swelling improving, using BiPAP. Allergies: Coded Allergies: RIVAROXABAN (Verified Allergy, Unknown, 04/05/19) All Systems: reviewed and negative except above Objective Vital Signs Noted General Appearance: no acute distress HEENT: mucous membranes moist Respiratory/Chest: lungs clear Cardiovascular: normal rate Abdomen: soft, non tender Extremities: other - mild chronic edema Neurologic/Psychiatric: alert Labs/Microbiology noted Seen earlier Subjective ROS Limited/Unobtainable: No Allergies: Coded Allergies: RIVAROXABAN (Verified Allergy, Unknown, 04/05/19) Objective Last 24 Hour Vital Signs Date Time Temp Pulse Resp B/P (MAP) Pulse Ox O2 Delivery O2 Flow Rate FiO2 06/14/19 22:03 88 18 96 Facial 35 06/14/19 21:32 163/105 06/14/19 21:32 71 163/105 06/14/19 21:00 Nasal Cannula 3.0 06/14/19 20:11 95 Nasal Cannula 2.0 28 06/14/19 19:56 3.0 06/14/19 19:55 98.2 71 18 163/105 (124) 96 06/14/19 16:00 98.6 77 20 140/81 (100) 94 06/14/19 16:00 3.0 06/14/19 12:00 3.0 06/14/19 12:00 98.9 81 20 134/75 (94) 94 06/14/19 09:08 152/86 06/14/19 09:08 152/86 06/14/19 09:08 80 06/14/19 09:06 80 152/86 06/14/19 09:00 Nasal Cannula 3.0 06/14/19 08:00 3.0 06/14/19 08:00 98.7 80 20 152/86 (108) 96 06/14/19 05:00 88 20 96 Facial 35 06/14/19 04:30 98.8 74 18 152/91 (111) 96 06/14/19 04:00 3.0 06/14/19 02:34 86 20 97 Facial 35 06/14/19 01:48 85 22 96 Facial 35 06/14/19 00:28 3.0 Intake and Output 06/13/19 06/14/19 19:00 07:00 Intake Total 480 ml 300 ml Balance 480 ml 300 ml Intake Oral 480 ml 300 ml # Voids 4 3 Laboratory Tests 06/14/19 06:20: White Blood Count 7.5, Red Blood Count 4.14L, Hemoglobin 10.3L, Hematocrit 32.0L , Mean Corpuscular Volume 77L, Mean Corpuscular Hemoglobin 24.9L, Mean Corpuscular Hemoglobin Concent 32.2, Red Cell Distribution Width 15.7H, Platelet Count 199, Mean Platelet Volume 9.0, Neutrophils (%) (Auto) 59.4, Lymphocytes (%) (Auto) 25.5, Monocytes (%) (Auto) 8.6, Eosinophils (%) (Auto) 5.2H, Basophils (%) (Auto) 1.2, Sodium Level 146H, Potassium Level 4.0, Chloride Level 108H, Carbon Dioxide Level 37H, Anion Gap 2L, Blood Urea Nitrogen 17, Creatinine 1.3, Estimat Glomerular Filtration Rate > 60, Glucose Level 118H, Calcium Level 8.7, Phosphorus Level 4.6, Magnesium Level 2.0, Total Bilirubin 0.4, Aspartate Amino Transf (AST/SGOT) 12L, Alanine Aminotransferase ( ALT/SGPT) 22, Alkaline Phosphatase 53, C-Reactive Protein, Quantitative 1.8H, Pro-B-Type Natriuretic Peptide 375H, Total Protein 6.4, Albumin 3.0L, Globulin 3.4, Albumin/Globulin Ratio 0.9L Current Medications Medications (Trade) Dose Ordered Sig/David Route PRN Reason Start Time Stop Time Status Last Admin Dose Admin Acetaminophen (Tylenol) 500 mg Q4H PRN ORAL Mild Pain/Temp > 100.5 06/04/19 02:30 07/01/19 02:29 06/12/19 15:49 Acetaminophen/ Hydrocodone Bitart ([place] 10325) 1 tab Q4H PRN ORAL For Pain 06/11/19 08:00 06/18/19 07:59 06/14/19 11:53 Apixaban (Eliquis) 5 mg BID ORAL 06/04/19 09:00 07/01/19 17:59 06/14/19 17:18 Atorvastatin Calcium (Lipitor) 40 mg BEDTIME ORAL 06/04/19 21:00 07/01/19 20:59 06/14/19 21:32 Carvedilol (Coreg) 25 mg EVERY 12 HOURS ORAL 06/04/19 09:00 07/01/19 20:59 06/14/19 21:32 Clonidine HCl (Catapres TTS-3) 1 patch QWEEK TDERMAL 06/08/19 12:00 07/01/19 11:59 06/08/19 13:35 Clonidine HCl (Catapres Tab) 0.1 mg Q4H PRN ORAL For High Blood Pressure 06/04/19 01:15 07/01/19 09:14 06/13/19 17:12 Digoxin (Lanoxin) 0.125 mg DAILY ORAL 06/04/19 09:00 07/02/19 08:59 06/14/19 09:08 Docusate Sodium (Colace) 100 mg THREE TIMES A DAY ORAL 06/04/19 09:00 07/01/19 09:31 06/14/19 17:18 Furosemide (Lasix) 80 mg DAILY ORAL 06/08/19 09:00 07/08/19 08:59 06/14/19 09:07 Gabapentin (Neurontin) 300 mg THREE TIMES A DAY ORAL 06/04/19 09:00 07/01/19 09:32 06/14/19 17:18 Hydralazine HCl (Apresoline) 100 mg Q12HR ORAL 06/06/19 21:00 07/06/19 20:59 06/14/19 21:32 Irbesartan (Avapro) 300 mg DAILY ORAL 06/04/19 09:00 07/02/19 08:59 06/14/19 09:08 Magnesium Oxide (Mag-Ox 400mg) 400 mg THREE TIMES A DAY ORAL 06/07/19 18:00 07/07/19 17:59 06/14/19 17:18 Oxycodone HCl (Roxicodone) 5 mg Q4H PRN ORAL Breakthrough Pain 06/11/19 08:00 06/18/19 07:59 06/14/19 17:19 Potassium Chloride (K-Dur) 40 meq BID ORAL 06/04/19 09:00 07/03/19 08:59 06/14/19 17:19 Mahesh Wise MD Jun 14, 2019 23:14
[2019-06-15] VITALS (7 sets, daily range): BP systolic 119–170; BP diastolic 60–108
[2019-06-15] MEDS: oxyCODONE 5mg IR tab ORAL PRN ×3 (00:46→12:15)
[2019-06-15] MEDS: HydrALAZINE 50mg tab ORAL SCH ×2 (08:31→20:57)
[2019-06-15] MEDS: Carvedilol 25mg Tab ORAL SCH ×2 (08:31→20:56)
[2019-06-15] MEDS: Digoxin 0.125mg tab ORAL SCH (08:31)
[2019-06-15] MEDS: Eliquis 5mg tablet ORAL SCH ×2 (08:32→17:19)
[2019-06-15] MEDS: Furosemide 80mg tab ORAL SCH (08:32)
[2019-06-15] MEDS: Irbesartan 150mg tablet ORAL SCH (08:32)
[2019-06-15] MEDS: Magnesium Oxide 400mg tab ORAL SCH ×3 (08:32→17:19)
[2019-06-15] MEDS: Docusate 100mg cap ORAL SCH ×3 (08:33→17:19)
--- NOTE | 2019-06-15 09:01 | General Progress Note ---
Assessment/Plan Assessment/Plan: (1) Lumbar DDD (2) Lumbar Spondylosis (3) Morbid obesity Patient to be continued on oxycodone and [place]. D/w Dr. Stack and he concurred. Subjective Date patient seen: Jun 15, 2019 Time patient seen: 07:00 - am Allergies: Coded Allergies: RIVAROXABAN (Verified Allergy, Unknown, 04/05/19) Subjective Constitutional: Reports: weakness HEENT: Reports: no symptoms Cardiovascular: Reports: no symptoms Respiratory: Reports: shortness of breath Gastrointestinal/Abdominal: Reports: no symptoms Genitourinary: Reports: no symptoms Neurologic/Psychiatric: Reports: no symptoms Endocrine: Reports: no symptoms Hematologic/Lymphatic: Reports: no symptoms Subjective Patient is showing no signs of pain or distress. Pain has been stable on the [place] and Oxycodone as needed. No new complaints at this time. Objective Last 24 Hour Vital Signs Date Time Temp Pulse Resp B/P (MAP) Pulse Ox O2 Delivery O2 Flow Rate FiO2 06/15/19 08:32 168/99 06/15/19 08:31 168/99 06/15/19 08:31 74 06/15/19 08:31 74 168/99 06/15/19 08:30 168/99 06/15/19 08:00 98.1 74 20 168/99 (122) 95 06/15/19 08:00 3.0 06/15/19 04:36 85 19 96 Facial 35 06/15/19 04:02 3.0 06/15/19 04:00 98.1 81 18 137/95 (109) 95 06/15/19 03:08 80 22 96 Facial 35 06/15/19 01:02 82 16 95 Facial 35 06/15/19 00:00 98.6 84 18 119/60 (79) 95 06/15/19 00:00 3.0 06/14/19 22:03 88 18 96 Facial 35 06/14/19 21:32 163/105 06/14/19 21:32 71 163/105 06/14/19 21:00 Nasal Cannula 3.0 06/14/19 20:11 95 Nasal Cannula 2.0 28 06/14/19 19:56 3.0 06/14/19 19:55 98.2 71 18 163/105 (124) 96 2/11/20 16:00 98.6 77 20 140/81 (100) 94 06/14/19 16:00 3.0 06/14/19 12:00 3.0 06/14/19 12:00 98.9 81 20 134/75 (94) 94 06/14/19 09:08 152/86 06/14/19 09:08 152/86 06/14/19 09:08 80 06/14/19 09:06 80 152/86 Intake and Output 06/14/19 06/15/19 19:00 07:00 Intake Total 600 ml 320 ml Output Total 1100 ml Balance -500 ml 320 ml Intake Oral 600 ml 320 ml Output Urine Total 1100 ml # Voids 3 Height (Feet): 5 Height (Inches): 10.00 Weight (Pounds): 429 Objective General Appearance: no apparent distress, alert EENT: PERRL/EOMI Neck: non-tender, normal alignment Cardiovascular: normal rate, regular rhythm Respiratory/Chest: decreased breath sounds Abdomen: non tender, soft Extremities: non-tender Edema: moderate edema Neurologic: alert, oriented x 3 Skin: warm/dry Osito Sultana Jun 15, 2019 09:01
--- NOTE | 2019-06-15 11:20 | Cardiac Electrophysiology PN ---
Assessment/Plan Assessment/Plan 1. Paroxysmal atrial fibrillation, converted to sinus rhythm with frequent PACs. Continue digoxin 0.125 mg daily, Coreg 25 mg b.i.d. and Eliquis 5 mg b.i.d. 2. CHF exacerbation due to diastolic dysfunction. On Lasix 80 mg po daily 3. Hypertension, on Avapro 300 mg daily, Coreg 25 bid, clonidine patch #3 weekly , Lasix and Hydralazine 100 bid 4. Obstructive sleep apnea. 5. COPD.On BIPAP 6. Morbid obesity DW RN Subjective Subjective Placement still pending. Diuresing Objective Last 24 Hour Vital Signs Date Time Temp Pulse Resp B/P (MAP) Pulse Ox O2 Delivery O2 Flow Rate FiO2 06/15/19 09:00 Nasal Cannula 3.0 06/15/19 08:32 168/99 06/15/19 08:31 168/99 06/15/19 08:31 74 06/15/19 08:31 74 168/99 06/15/19 08:30 168/99 06/15/19 08:00 98.1 74 20 168/99 (122) 95 06/15/19 08:00 3.0 06/15/19 04:36 85 19 96 Facial 35 06/15/19 04:02 3.0 06/15/19 04:00 98.1 81 18 137/95 (109) 95 06/15/19 03:08 80 22 96 Facial 35 06/15/19 01:02 82 16 95 Facial 35 06/15/19 00:00 98.6 84 18 119/60 (79) 95 06/15/19 00:00 3.0 06/14/19 22:03 88 18 96 Facial 35 06/14/19 21:32 163/105 06/14/19 21:32 71 163/105 06/14/19 21:00 Nasal Cannula 3.0 06/14/19 20:11 95 Nasal Cannula 2.0 28 06/14/19 19:56 3.0 06/14/19 19:55 98.2 71 18 163/105 (124) 96 06/14/19 16:00 98.6 77 20 140/81 (100) 94 06/14/19 16:00 3.0 06/14/19 12:00 3.0 06/14/19 12:00 98.9 81 20 134/75 (94) 94 Intake and Output 06/14/19 06/15/19 19:00 07:00 Intake Total 600 ml 320 ml Output Total 1100 ml Balance -500 ml 320 ml Intake Oral 600 ml 320 ml Output Urine Total 1100 ml # Voids 3 Objective HEAD AND NECK: Mild JVD. LUNGS: Coarse rhonchi. CARDIOVASCULAR: Regular S1 and S2 with no gallop or murmur. ABDOMEN: Obese. EXTREMITIES: 2+ pitting edema. Sandor Doll MD Jun 15, 2019 11:20
--- NOTE | 2019-06-15 11:21 | Nephrology Progress Note ---
Assessment/Plan Problem List: (1) Electrolyte imbalance (2) COPD (chronic obstructive pulmonary disease) (3) CO2 retention (4) CHF (congestive heart failure) (5) Obesity, morbid, BMI 50 or higher Assessment (1) Hypokalemia (2) CHF (congestive heart failure) (3) s/p Renal failure (4) Obesity, morbid, BMI 50 or higher (5) CO2 retention (6) COPD (chronic obstructive pulmonary disease) Obesity , NATASHA AT fib with FVR Congestive heart failure, likely diastolic dysfunction. EF 60% Recurrent NSVT. No syncope. Hypertension. Morbid obesity. COPD. Lipidemia. Plan Plan optimize cardiac and pulm status Keep BP in check Monitor lytes Diamox PO as needed per orders per cardio and pulmonary Subjective ROS Limited/Unobtainable: No Constitutional: Reports: malaise Objective Objective Last 24 Hour Vital Signs Date Time Temp Pulse Resp B/P (MAP) Pulse Ox O2 Delivery O2 Flow Rate FiO2 06/15/19 09:00 Nasal Cannula 3.0 06/15/19 08:32 168/99 06/15/19 08:31 168/99 06/15/19 08:31 74 06/15/19 08:31 74 168/99 06/15/19 08:30 168/99 06/15/19 08:00 98.1 74 20 168/99 (122) 95 06/15/19 08:00 3.0 06/15/19 04:36 85 19 96 Facial 35 06/15/19 04:02 3.0 06/15/19 04:00 98.1 81 18 137/95 (109) 95 06/15/19 03:08 80 22 96 Facial 35 06/15/19 01:02 82 16 95 Facial 35 06/15/19 00:00 98.6 84 18 119/60 (79) 95 06/15/19 00:00 3.0 06/14/19 22:03 88 18 96 Facial 35 06/14/19 21:32 163/105 06/14/19 21:32 71 163/105 06/14/19 21:00 Nasal Cannula 3.0 06/14/19 20:11 95 Nasal Cannula 2.0 28 06/14/19 19:56 3.0 06/14/19 19:55 98.2 71 18 163/105 (124) 96 06/14/19 16:00 98.6 77 20 140/81 (100) 94 06/14/19 16:00 3.0 06/14/19 12:00 3.0 06/14/19 12:00 98.9 81 20 134/75 (94) 94 Intake and Output 06/14/19 06/15/19 19:00 07:00 Intake Total 600 ml 320 ml Output Total 1100 ml Balance -500 ml 320 ml Intake Oral 600 ml 320 ml Output Urine Total 1100 ml # Voids 3 Height (Feet): 5 Height (Inches): 10.00 Weight (Pounds): 429 General Appearance: no apparent distress EENT: other - BIPAP Cardiovascular: normal rate Respiratory/Chest: decreased breath sounds Abdomen: distended Objective no change Bebeto Yin MD Jun 15, 2019 11:21
--- NOTE | 2019-06-15 15:30 | General Progress Note ---
Assessment/Plan Assessment/Plan: S: I am feeling pain O: remains in mild- sob with slight out of bed activity. complains of pain in all joints . ambulates using walker out of bed Physical ExamVital Signs General Appearance: alert, GCS 15, obese, Chronically Ill Head: normocephalicEyes: bilateral eye PERRL ENT: TMs + canals normal, uvula midlineNeck: full range of motion Respiratory: lungs clear, decreased breath soundsCardiovascular #1: edema - 1 + Edema Gastrointestinal: normal inspection, normal bowel sounds, non tender Musculoskeletal: morbid obesity, minimal non piting edema in LE. Neurologic: alert, motor strength/tone normal, cna pct III-XII nml as tested, oriented [id number]: normal inspection Skin: other - Bilateral scaly rash to the lower extremities Meds: reviewed and reconciled in the chart Assessment/Plan: 1. 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 Morbid obesity 4. HTN 5. Multiple joint OA 6. Afib 7. NATASHA 8. ARF : improved 10 . GI-DVT prophylaxia 11. Moderate- PAH 12. Hypokalemia Plan: High risk for Re- admission in future SNIF placement will decrease the likely wallace of readmission Pulmonary, Cardiology and Nephrology notes reviewed Better BP control PRN pain medication / D/w RN at bed side Disposition : Will followup with PT recommendation , SNIF or to patient's his own plan of care Subjective Allergies: Coded Allergies: RIVAROXABAN (Verified Allergy, Unknown, 04/05/19) Objective Last 24 Hour Vital Signs Date Time Temp Pulse Resp B/P (MAP) Pulse Ox O2 Delivery O2 Flow Rate FiO2 06/15/19 12:15 143/77 06/15/19 12:00 3.0 06/15/19 12:00 98.7 77 19 143/77 (99) 94 06/15/19 09:00 Nasal Cannula 3.0 06/15/19 08:32 168/99 06/15/19 08:31 168/99 06/15/19 08:31 74 06/15/19 08:31 74 168/99 06/15/19 08:30 168/99 06/15/19 08:00 98.1 74 20 168/99 (122) 95 06/15/19 08:00 3.0 06/15/19 04:36 85 19 96 Facial 35 06/15/19 04:02 3.0 06/15/19 04:00 98.1 81 18 137/95 (109) 95 06/15/19 03:08 80 22 96 Facial 35 06/15/19 01:02 82 16 95 Facial 35 06/15/19 00:00 98.6 84 18 119/60 (79) 95 06/15/19 00:00 3.0 06/14/19 22:03 88 18 96 Facial 35 06/14/19 21:32 163/105 06/14/19 21:32 71 163/105 06/14/19 21:00 Nasal Cannula 3.0 06/14/19 20:11 95 Nasal Cannula 2.0 28 06/14/19 19:56 3.0 06/14/19 19:55 98.2 71 18 163/105 (124) 96 06/14/19 16:00 98.6 77 20 140/81 (100) 94 06/14/19 16:00 3.0 Intake and Output 06/14/19 06/15/19 19:00 07:00 Intake Total 600 ml 320 ml Output Total 1100 ml Balance -500 ml 320 ml Intake Oral 600 ml 320 ml Output Urine Total 1100 ml # Voids 3 Height (Feet): 5 Height (Inches): 10.00 Weight (Pounds): 429 Desirae Haro MD Jun 15, 2019 15:30
[2019-06-15] MEDS: HYDROcodone/Acetamin 10/325 tab ORAL PRN (20:52)
[2019-06-15] MEDS: Atorvastatin 20mg tab ORAL SCH (20:57)
[2019-06-16] MEDS: oxyCODONE 5mg IR tab ORAL PRN ×4 (02:08→20:37)
[2019-06-16 04:00] VITALS: BP 156/95
[2019-06-16 08:00] VITALS: BP 169/101
[2019-06-16] MEDS: Magnesium Oxide 400mg tab ORAL SCH ×3 (08:05→17:34)
[2019-06-16] MEDS: HydrALAZINE 50mg tab ORAL SCH ×2 (08:05→20:36)
[2019-06-16] MEDS: Digoxin 0.125mg tab ORAL SCH (08:06)
[2019-06-16] MEDS: Docusate 100mg cap ORAL SCH ×3 (08:06→17:34)
[2019-06-16] MEDS: Irbesartan 150mg tablet ORAL SCH (08:06)
[2019-06-16] MEDS: Furosemide 80mg tab ORAL SCH (08:07)
[2019-06-16] MEDS: Carvedilol 25mg Tab ORAL SCH ×2 (08:07→20:34)
[2019-06-16] MEDS: Eliquis 5mg tablet ORAL SCH ×2 (08:07→17:34)
--- NOTE | 2019-06-16 09:09 | General Progress Note ---
Assessment/Plan Assessment/Plan: (1) Lumbar DDD (2) Lumbar Spondylosis (3) Morbid obesity Patient to be continued on oxycodone and [place]. D/w Dr. Stack and he concurred. Subjective Date patient seen: Jun 16, 2019 Time patient seen: 07:45 - am Allergies: Coded Allergies: RIVAROXABAN (Verified Allergy, Unknown, 04/05/19) Subjective Constitutional: Reports: weakness HEENT: Reports: no symptoms Cardiovascular: Reports: no symptoms Respiratory: Reports: shortness of breath Gastrointestinal/Abdominal: Reports: no symptoms Genitourinary: Reports: no symptoms Neurologic/Psychiatric: Reports: no symptoms Endocrine: Reports: no symptoms Hematologic/Lymphatic: Reports: no symptoms Subjective Patient has been in bed with Bipap applied. He has no new complaints and reports pain at a moderate level tolerated on the norco and Oxycodone. Objective Last 24 Hour Vital Signs Date Time Temp Pulse Resp B/P (MAP) Pulse Ox O2 Delivery O2 Flow Rate FiO2 06/16/19 09:00 Nasal Cannula 3.0 06/16/19 08:07 169/101 06/16/19 08:07 70 169/101 06/16/19 08:06 169/101 06/16/19 08:06 70 06/16/19 08:05 169/101 06/16/19 08:02 95 Nasal Cannula 2.0 28 06/16/19 08:00 3.0 99 06/16/19 08:00 98.8 70 20 169/101 (123) 94 06/16/19 04:00 98.2 78 19 156/95 (115) 96 06/16/19 04:00 3.0 06/15/19 23:53 3.0 06/15/19 23:51 98.2 69 20 160/94 (116) 96 06/15/19 23:37 76 16 98 35 06/15/19 20:57 170/85 06/15/19 20:56 69 170/85 06/15/19 20:06 95 Nasal Cannula 2.0 28 06/15/19 20:00 98.8 69 20 170/85 (113) 95 06/15/19 20:00 3.0 06/15/19 18:30 Nasal Cannula 3.0 06/15/19 16:44 170/108 2/12/20 16:00 98.0 75 20 170/108 (128) 95 06/15/19 16:00 3.0 06/15/19 15:44 96 Nasal Cannula 2.0 28 06/15/19 12:15 143/77 06/15/19 12:00 3.0 06/15/19 12:00 98.7 77 19 143/77 (99) 94 Intake and Output 06/15/19 06/16/19 19:00 07:00 Intake Total 360 ml 320 ml Output Total 1600 ml 900 ml Balance -1240 ml -580 ml Intake Oral 360 ml 320 ml Output Urine Total 1600 ml 900 ml # Voids 3 # Bowel Movements 1 1 Height (Feet): 5 Height (Inches): 10.00 Weight (Pounds): 429 Objective General Appearance: no apparent distress, alert EENT: PERRL/EOMI Neck: non-tender, normal alignment Cardiovascular: normal rate, regular rhythm Respiratory/Chest: decreased breath sounds Abdomen: non tender, soft Extremities: non-tender Edema: moderate edema Neurologic: alert, oriented x 3 Skin: warm/dry Osito Sultana Jun 16, 2019 09:09
--- NOTE | 2019-06-16 10:26 | Nephrology Progress Note ---
Assessment/Plan Problem List: (1) Electrolyte imbalance (2) COPD (chronic obstructive pulmonary disease) (3) CO2 retention (4) CHF (congestive heart failure) (5) Obesity, morbid, BMI 50 or higher Assessment (1) Hypokalemia (2) CHF (congestive heart failure) (3) s/p Renal failure (4) Obesity, morbid, BMI 50 or higher (5) CO2 retention (6) COPD (chronic obstructive pulmonary disease) Obesity , NATASHA AT fib with FVR Congestive heart failure, likely diastolic dysfunction. EF 60% Recurrent NSVT. No syncope. Hypertension. Morbid obesity. COPD. Lipidemia. Plan Plan optimize cardiac and pulm status Keep BP in check Monitor lytes Diamox PO as needed per orders per cardio and pulmonary Subjective ROS Limited/Unobtainable: No Constitutional: Reports: malaise Objective Objective Last 24 Hour Vital Signs Date Time Temp Pulse Resp B/P (MAP) Pulse Ox O2 Delivery O2 Flow Rate FiO2 06/16/19 09:00 Nasal Cannula 3.0 06/16/19 08:07 169/101 06/16/19 08:07 70 169/101 06/16/19 08:06 169/101 06/16/19 08:06 70 06/16/19 08:05 169/101 06/16/19 08:02 95 Nasal Cannula 2.0 28 06/16/19 08:00 3.0 99 06/16/19 08:00 98.8 70 20 169/101 (123) 94 06/16/19 04:00 98.2 78 19 156/95 (115) 96 06/16/19 04:00 3.0 06/15/19 23:53 3.0 06/15/19 23:51 98.2 69 20 160/94 (116) 96 06/15/19 23:37 76 16 98 35 06/15/19 20:57 170/85 06/15/19 20:56 69 170/85 06/15/19 20:06 95 Nasal Cannula 2.0 28 06/15/19 20:00 98.8 69 20 170/85 (113) 95 06/15/19 20:00 3.0 06/15/19 18:30 Nasal Cannula 3.0 06/15/19 16:44 170/108 06/15/19 16:00 98.0 75 20 170/108 (128) 95 06/15/19 16:00 3.0 06/15/19 15:44 96 Nasal Cannula 2.0 28 06/15/19 12:15 143/77 06/15/19 12:00 3.0 06/15/19 12:00 98.7 77 19 143/77 (99) 94 Intake and Output 06/15/19 06/16/19 19:00 07:00 Intake Total 360 ml 320 ml Output Total 1600 ml 900 ml Balance -1240 ml -580 ml Intake Oral 360 ml 320 ml Output Urine Total 1600 ml 900 ml # Voids 3 # Bowel Movements 1 1 Height (Feet): 5 Height (Inches): 10.00 Weight (Pounds): 429 General Appearance: no apparent distress EENT: other - BIPAP Cardiovascular: arrhythmia Respiratory/Chest: decreased breath sounds Abdomen: distended Objective no change Bebeto Yin MD Jun 16, 2019 10:26
[2019-06-16 12:00] VITALS: BP 162/86
--- NOTE | 2019-06-16 13:26 | Pulmonology Progress Note ---
Assessment/Plan Assessment/Plan Pulmonary Progress Note Assessment/Plan Problem List: * CHF * Edema * Chronic hypercapnic respiratory failure * Possible COPD * Afib Plan: * Cont BiPAP PRN QHS * HHN * Await placement * Monitor volumes, diuresis per cardiology/renal * monitor renal function * SNF placement Subjective Interval Events: Less short of breath. Leg swelling improving, using BiPAP. Allergies: Coded Allergies: RIVAROXABAN (Verified Allergy, Unknown, 04/05/19) All Systems: reviewed and negative except above Objective Vital Signs Noted General Appearance: no acute distress HEENT: mucous membranes moist Respiratory/Chest: lungs clear Cardiovascular: normal rate Abdomen: soft, non tender Extremities: other - mild chronic edema Neurologic/Psychiatric: alert Labs/Microbiology noted Seen earlier Subjective ROS Limited/Unobtainable: No Allergies: Coded Allergies: RIVAROXABAN (Verified Allergy, Unknown, 04/05/19) Objective Last 24 Hour Vital Signs Date Time Temp Pulse Resp B/P (MAP) Pulse Ox O2 Delivery O2 Flow Rate FiO2 06/16/19 12:46 162/86 06/16/19 12:00 3.0 99 06/16/19 12:00 98.4 67 20 162/86 (111) 96 06/16/19 09:00 Nasal Cannula 3.0 06/16/19 08:07 169/101 06/16/19 08:07 70 169/101 06/16/19 08:06 169/101 06/16/19 08:06 70 06/16/19 08:05 169/101 06/16/19 08:02 95 Nasal Cannula 2.0 28 06/16/19 08:00 3.0 99 06/16/19 08:00 98.8 70 20 169/101 (123) 94 06/16/19 04:00 98.2 78 19 156/95 (115) 96 06/16/19 04:00 3.0 06/15/19 23:53 3.0 06/15/19 23:51 98.2 69 20 160/94 (116) 96 06/15/19 23:37 76 16 98 35 06/15/19 20:57 170/85 06/15/19 20:56 69 170/85 06/15/19 20:06 95 Nasal Cannula 2.0 28 06/15/19 20:00 98.8 69 20 170/85 (113) 95 06/15/19 20:00 3.0 06/15/19 18:30 Nasal Cannula 3.0 06/15/19 16:44 170/108 06/15/19 16:00 98.0 75 20 170/108 (128) 95 06/15/19 16:00 3.0 06/15/19 15:44 96 Nasal Cannula 2.0 28 Intake and Output 06/15/19 06/16/19 19:00 07:00 Intake Total 360 ml 320 ml Output Total 1600 ml 900 ml Balance -1240 ml -580 ml Intake Oral 360 ml 320 ml Output Urine Total 1600 ml 900 ml # Voids 3 # Bowel Movements 1 1 Current Medications Medications (Trade) Dose Ordered Sig/David Route PRN Reason Start Time Stop Time Status Last Admin Dose Admin Acetaminophen (Tylenol) 500 mg Q4H PRN ORAL Mild Pain/Temp > 100.5 06/04/19 02:30 07/01/19 02:29 06/12/19 15:49 Acetaminophen/ Hydrocodone Bitart ([place] 10/325) 1 tab Q4H PRN ORAL For Pain 06/11/19 08:00 06/18/19 07:59 06/15/19 20:52 Apixaban (Eliquis) 5 mg BID ORAL 06/04/19 09:00 07/01/19 17:59 06/16/19 08:07 Atorvastatin Calcium (Lipitor) 40 mg BEDTIME ORAL 06/04/19 21:00 07/01/19 20:59 06/15/19 20:57 Carvedilol (Coreg) 25 mg EVERY 12 HOURS ORAL 06/04/19 09:00 07/01/19 20:59 06/16/19 08:07 Clonidine HCl (Catapres TTS-3) 1 patch QWEEK TDERMAL 06/08/19 12:00 07/01/19 11:59 06/15/19 12:15 Clonidine HCl (Catapres Tab) 0.1 mg Q4H PRN ORAL For High Blood Pressure 06/04/19 01:15 07/01/19 09:14 06/16/19 12:46 Digoxin (Lanoxin) 0.125 mg DAILY ORAL 06/04/19 09:00 07/02/19 08:59 06/16/19 08:06 Docusate Sodium (Colace) 100 mg THREE TIMES A DAY ORAL 06/04/19 09:00 07/01/19 09:31 06/16/19 08:06 Furosemide (Lasix) 80 mg DAILY ORAL 06/08/19 09:00 07/08/19 08:59 06/16/19 08:07 Gabapentin (Neurontin) 300 mg THREE TIMES A DAY ORAL 06/04/19 09:00 07/01/19 09:32 06/16/19 12:47 Hydralazine HCl (Apresoline) 100 mg Q12HR ORAL 06/06/19 21:00 07/06/19 20:59 06/16/19 08:05 Irbesartan (Avapro) 300 mg DAILY ORAL 06/04/19 09:00 07/02/19 08:59 06/16/19 08:06 Magnesium Oxide (Mag-Ox 400mg) 400 mg THREE TIMES A DAY ORAL 06/07/19 18:00 07/07/19 17:59 06/16/19 12:46 Oxycodone HCl (Roxicodone) 5 mg Q4H PRN ORAL Breakthrough Pain 06/11/19 08:00 06/18/19 07:59 06/16/19 10:44 Potassium Chloride (K-Dur) 40 meq BID ORAL 06/04/19 09:00 07/03/19 08:59 06/16/19 08:05 Mahesh Wise MD Jun 16, 2019 13:26
--- NOTE | 2019-06-16 14:22 | General Progress Note ---
Assessment/Plan Assessment/Plan: S: I am feeling pain O: remains in mild- sob with slight out of bed activity. complains of pain in all joints . ambulates using walker out of bed Physical ExamVital Signs General Appearance: alert, GCS 15, obese, Chronically Ill Head: normocephalicEyes: bilateral eye PERRL ENT: TMs + canals normal, uvula midlineNeck: full range of motion Respiratory: lungs clear, decreased breath soundsCardiovascular #1: edema - 1 + Edema Gastrointestinal: normal inspection, normal bowel sounds, non tender Musculoskeletal: morbid obesity, minimal non piting edema in LE. 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 Morbid obesity 4. HTN 5. Multiple joint OA 6. Afib 7. NATASHA 8. ARF : improved 10 . GI-DVT prophylaxia 11. Moderate- PAH 12. Hypokalemia Plan: High risk for Re- admission in future SNIF placement will decrease the likely wallace of readmission Pulmonary, Cardiology and Nephrology notes reviewed Better BP control PRN pain medication / D/w RN at bed side Disposition : Will followup with PT recommendation , SNIF or to patient's his own plan of care Subjective Allergies: Coded Allergies: RIVAROXABAN (Verified Allergy, Unknown, 04/05/19) Objective Last 24 Hour Vital Signs Date Time Temp Pulse Resp B/P (MAP) Pulse Ox O2 Delivery O2 Flow Rate FiO2 06/16/19 12:46 162/86 06/16/19 12:00 3.0 99 06/16/19 12:00 98.4 67 20 162/86 (111) 96 06/16/19 09:00 Nasal Cannula 3.0 06/16/19 08:07 169/101 06/16/19 08:07 70 169/101 06/16/19 08:06 169/101 06/16/19 08:06 70 06/16/19 08:05 169/101 06/16/19 08:02 95 Nasal Cannula 2.0 28 06/16/19 08:00 3.0 99 06/16/19 08:00 98.8 70 20 169/101 (123) 94 06/16/19 04:00 98.2 78 19 156/95 (115) 96 06/16/19 04:00 3.0 06/15/19 23:53 3.0 06/15/19 23:51 98.2 69 20 160/94 (116) 96 06/15/19 23:37 76 16 98 35 06/15/19 20:57 170/85 06/15/19 20:56 69 170/85 06/15/19 20:06 95 Nasal Cannula 2.0 28 06/15/19 20:00 98.8 69 20 170/85 (113) 95 06/15/19 20:00 3.0 06/15/19 18:30 Nasal Cannula 3.0 06/15/19 16:44 170/108 06/15/19 16:00 98.0 75 20 170/108 (128) 95 06/15/19 16:00 3.0 06/15/19 15:44 96 Nasal Cannula 2.0 28 Intake and Output 06/15/19 06/16/19 19:00 07:00 Intake Total 360 ml 320 ml Output Total 1600 ml 900 ml Balance -1240 ml -580 ml Intake Oral 360 ml 320 ml Output Urine Total 1600 ml 900 ml # Voids 3 # Bowel Movements 1 1 Height (Feet): 5 Height (Inches): 10.00 Weight (Pounds): 429 Desirae Haro MD Jun 16, 2019 14:22
[2019-06-16 16:00] VITALS: BP 165/95
--- NOTE | 2019-06-16 16:57 | Cardiac Electrophysiology PN ---
Assessment/Plan Assessment/Plan 1. Paroxysmal atrial fibrillation, converted to sinus rhythm with frequent PACs. Continue digoxin 0.125 mg daily, Coreg 25 mg b.i.d. and Eliquis 5 mg b.i.d. 2. CHF exacerbation due to diastolic dysfunction. Lasix 80 mg po daily 3. Hypertension, on Avapro 300 mg daily, Coreg 25 bid, clonidine patch #3 weekly , Lasix and Hydralazine 100 bid 4. Obstructive sleep apnea. 5. COPD.On BIPAP 6. Morbid obesity. Needs bardiatric eval KIAN RN and case management Subjective Subjective Placement still pending. No CP or SOB Objective Last 24 Hour Vital Signs Date Time Temp Pulse Resp B/P (MAP) Pulse Ox O2 Delivery O2 Flow Rate FiO2 06/16/19 12:46 162/86 06/16/19 12:00 3.0 99 06/16/19 12:00 98.4 67 20 162/86 (111) 96 06/16/19 09:00 Nasal Cannula 3.0 06/16/19 08:07 169/101 06/16/19 08:07 70 169/101 06/16/19 08:06 169/101 06/16/19 08:06 70 06/16/19 08:05 169/101 06/16/19 08:02 95 Nasal Cannula 2.0 28 06/16/19 08:00 3.0 99 06/16/19 08:00 98.8 70 20 169/101 (123) 94 06/16/19 04:00 98.2 78 19 156/95 (115) 96 06/16/19 04:00 3.0 06/15/19 23:53 3.0 06/15/19 23:51 98.2 69 20 160/94 (116) 96 06/15/19 23:37 76 16 98 35 06/15/19 20:57 170/85 06/15/19 20:56 69 170/85 06/15/19 20:06 95 Nasal Cannula 2.0 28 06/15/19 20:00 98.8 69 20 170/85 (113) 95 06/15/19 20:00 3.0 06/15/19 18:30 Nasal Cannula 3.0 Intake and Output 06/15/19 06/16/19 19:00 07:00 Intake Total 360 ml 320 ml Output Total 1600 ml 900 ml Balance -1240 ml -580 ml Intake Oral 360 ml 320 ml Output Urine Total 1600 ml 900 ml # Voids 3 # Bowel Movements 1 1 Objective HEAD AND NECK: Mild JVD. LUNGS: Coarse rhonchi. CARDIOVASCULAR: Regular S1 and S2 with no gallop or murmur. ABDOMEN: Obese. EXTREMITIES: 2+ pitting edema. Sandor Doll MD Jun 16, 2019 16:57
[2019-06-16 18:44] VITALS: BP 158/85
[2019-06-16 20:00] VITALS: BP 150/94
[2019-06-16] MEDS: Atorvastatin 20mg tab ORAL SCH (20:35)
[2019-06-17] VITALS (7 sets, daily range): BP systolic 149–161; BP diastolic 80–96
[2019-06-17] MEDS: oxyCODONE 5mg IR tab ORAL PRN ×4 (01:36→17:52)
--- NOTE | 2019-06-17 09:11 | General Progress Note ---
Assessment/Plan Assessment/Plan: (1) Lumbar DDD (2) Lumbar Spondylosis (3) Morbid obesity Patient to be continued on oxycodone and [place]. D/w Dr. Stack and he concurred. Subjective Date patient seen: Jun 17, 2019 Time patient seen: 07:45 - am Allergies: Coded Allergies: RIVAROXABAN (Verified Allergy, Unknown, 04/05/19) Subjective Constitutional: Reports: weakness HEENT: Reports: no symptoms Cardiovascular: Reports: no symptoms Respiratory: Reports: shortness of breath Gastrointestinal/Abdominal: Reports: no symptoms Genitourinary: Reports: no symptoms Neurologic/Psychiatric: Reports: no symptoms Endocrine: Reports: no symptoms Hematologic/Lymphatic: Reports: no symptoms Subjective Patient has been in bed with Bipap applied. Still c/o pain which has been tolerated on the norco and Oxycodone. He was advised to get out of bed to ambulate. No new complaints at this time. Objective Last 24 Hour Vital Signs Date Time Temp Pulse Resp B/P (MAP) Pulse Ox O2 Delivery O2 Flow Rate FiO2 06/17/19 07:25 96 Nasal Cannula 2.0 28 06/17/19 05:09 96 06/17/19 04:00 3.0 99 06/17/19 04:00 97.9 69 20 157/96 (116) 95 06/17/19 03:26 94 06/17/19 01:13 96 06/17/19 00:00 3.0 99 06/17/19 00:00 98.2 80 23 155/96 (115) 95 06/16/19 23:17 96 06/16/19 21:33 97 06/16/19 20:36 150/94 06/16/19 20:34 70 150/94 06/16/19 20:00 98.4 70 24 150/94 (112) 96 06/16/19 19:59 3.0 99 06/16/19 19:59 Nasal Cannula 3.0 06/16/19 19:43 74 16 94 35 06/16/19 19:42 94 Bi-Pap 35 06/16/19 18:44 98.2 84 17 158/85 (109) 95 06/16/19 17:38 165/95 06/16/19 16:00 98.2 84 17 165/95 (118) 95 06/16/19 16:00 3.0 99 06/16/19 12:46 162/86 06/16/19 12:00 3.0 99 06/16/19 12:00 98.4 67 20 162/86 (111) 96 Intake and Output 06/16/19 06/17/19 19:00 07:00 Intake Total 640 ml Output Total 1600 ml 1200 ml Balance -960 ml -1200 ml Intake Oral 640 ml Output Urine Total 1600 ml 1200 ml # Voids 2 # Bowel Movements 2 1 Height (Feet): 5 Height (Inches): 10.00 Weight (Pounds): 429 Objective General Appearance: no apparent distress, alert EENT: PERRL/EOMI Neck: non-tender, normal alignment Cardiovascular: normal rate, regular rhythm Respiratory/Chest: decreased breath sounds Abdomen: non tender, soft Extremities: non-tender Edema: moderate edema Neurologic: alert, oriented x 3 Skin: warm/dry Osito Sultana Jun 17, 2019 09:11
[2019-06-17] MEDS: Docusate 100mg cap ORAL SCH ×3 (09:46→17:53)
[2019-06-17] MEDS: Digoxin 0.125mg tab ORAL SCH (09:47)
[2019-06-17] MEDS: HydrALAZINE 50mg tab ORAL SCH ×2 (09:48→20:39)
[2019-06-17] MEDS: Carvedilol 25mg Tab ORAL SCH ×2 (09:48→20:39)
[2019-06-17] MEDS: Irbesartan 150mg tablet ORAL SCH (09:48)
[2019-06-17] MEDS: Magnesium Oxide 400mg tab ORAL SCH ×3 (09:48→17:51)
[2019-06-17] MEDS: Eliquis 5mg tablet ORAL SCH ×2 (09:49→17:51)
[2019-06-17] MEDS: Furosemide 80mg tab ORAL SCH (09:49)
--- NOTE | 2019-06-17 10:39 | Cardiac Electrophysiology PN ---
Assessment/Plan Assessment/Plan 1. Paroxysmal atrial fibrillation, converted to sinus rhythm with frequent PACs. Continue digoxin 0.125 mg daily, Coreg 25 mg b.i.d. and Eliquis 5 mg b.i.d. 2. CHF exacerbation due to diastolic dysfunction. Change Lasix to 80 mg iv daily Noncompliant. Orders [facility] from [facility]! 3. Hypertension, on Avapro 300 mg daily, Coreg 25 bid, clonidine patch #3 weekly , Lasix and Hydralazine 100 bid 4. Obstructive sleep apnea. 5. COPD.On BIPAP 6. Morbid obesity. Needs bardiatric evaluation DW RN and case management Subjective Subjective Placement still pending. No CP or SOB. Legs still swollen. On Po Lasix Objective Last 24 Hour Vital Signs Date Time Temp Pulse Resp B/P (MAP) Pulse Ox O2 Delivery O2 Flow Rate FiO2 06/17/19 09:48 154/83 06/17/19 09:48 154/83 06/17/19 09:48 71 154/83 06/17/19 09:47 71 06/17/19 09:46 154/83 06/17/19 07:25 96 Nasal Cannula 2.0 28 06/17/19 05:09 96 06/17/19 04:00 3.0 99 06/17/19 04:00 97.9 69 20 157/96 (116) 95 06/17/19 03:26 94 06/17/19 01:13 96 06/17/19 00:00 3.0 99 06/17/19 00:00 98.2 80 23 155/96 (115) 95 06/16/19 23:17 96 06/16/19 21:33 97 06/16/19 20:36 150/94 06/16/19 20:34 70 150/94 06/16/19 20:00 98.4 70 24 150/94 (112) 96 06/16/19 19:59 3.0 99 06/16/19 19:59 Nasal Cannula 3.0 06/16/19 19:43 74 16 94 35 06/16/19 19:42 94 Bi-Pap 35 06/16/19 18:44 98.2 84 17 158/85 (109) 95 06/16/19 17:38 165/95 06/16/19 16:00 98.2 84 17 165/95 (118) 95 06/16/19 16:00 3.0 99 06/16/19 12:46 162/86 06/16/19 12:00 3.0 99 06/16/19 12:00 98.4 67 20 162/86 (111) 96 Intake and Output 06/16/19 06/17/19 19:00 07:00 Intake Total 640 ml Output Total 1600 ml 1200 ml Balance -960 ml -1200 ml Intake Oral 640 ml Output Urine Total 1600 ml 1200 ml # Voids 2 # Bowel Movements 2 1 Objective HEAD AND NECK: Mild JVD. LUNGS: Coarse rhonchi. CARDIOVASCULAR: Regular S1 and S2 with no gallop or murmur. ABDOMEN: Obese. EXTREMITIES: 2+ pitting edema. Sandor Doll MD Jun 17, 2019 10:39
--- NOTE | 2019-06-17 10:50 | Pulmonology Progress Note ---
Assessment/Plan Assessment/Plan Pulmonary Progress Note Assessment/Plan Problem List: * CHF * Edema * Chronic hypercapnic respiratory failure * Morbid Obesity * Obstructive Sleep Apnea/Obesity Hypoventilation on O/P BiPAP * Possible COPD * Afib Plan: * Cont BiPAP PRN QHS * HHN * Await placement * Monitor volumes, diuresis per cardiology/renal * Salt restriction * monitor renal function * SNF placement * Bariatric referral as outpatient Subjective Interval Events: Less short of breath. Leg swelling improving, using BiPAP. Allergies: Coded Allergies: RIVAROXABAN (Verified Allergy, Unknown, 04/05/19) All Systems: reviewed and negative except above Objective Vital Signs Noted General Appearance: no acute distress HEENT: mucous membranes moist Respiratory/Chest: lungs clear Cardiovascular: normal rate Abdomen: soft, non tender Extremities: other - mild chronic edema Neurologic/Psychiatric: alert Labs/Microbiology noted Subjective ROS Limited/Unobtainable: No Allergies: Coded Allergies: RIVAROXABAN (Verified Allergy, Unknown, 04/05/19) Objective Last 24 Hour Vital Signs Date Time Temp Pulse Resp B/P (MAP) Pulse Ox O2 Delivery O2 Flow Rate FiO2 06/17/19 09:48 154/83 06/17/19 09:48 154/83 06/17/19 09:48 71 154/83 06/17/19 09:47 71 06/17/19 09:46 154/83 06/17/19 09:00 Nasal Cannula 3.0 06/17/19 08:00 3.0 99 06/17/19 08:00 98.6 71 22 154/83 (106) 95 06/17/19 07:25 96 Nasal Cannula 2.0 28 06/17/19 05:09 96 06/17/19 04:00 3.0 99 06/17/19 04:00 97.9 69 20 157/96 (116) 95 06/17/19 03:26 94 06/17/19 01:13 96 06/17/19 00:00 3.0 99 06/17/19 00:00 98.2 80 23 155/96 (115) 95 06/16/19 23:17 96 06/16/19 21:33 97 06/16/19 20:36 150/94 06/16/19 20:34 70 150/94 06/16/19 20:00 98.4 70 24 150/94 (112) 96 06/16/19 19:59 3.0 99 06/16/19 19:59 Nasal Cannula 3.0 06/16/19 19:43 74 16 94 35 06/16/19 19:42 94 Bi-Pap 35 06/16/19 18:44 98.2 84 17 158/85 (109) 95 06/16/19 17:38 165/95 06/16/19 16:00 98.2 84 17 165/95 (118) 95 06/16/19 16:00 3.0 99 06/16/19 12:46 162/86 06/16/19 12:00 3.0 99 06/16/19 12:00 98.4 67 20 162/86 (111) 96 Intake and Output 06/16/19 06/17/19 19:00 07:00 Intake Total 640 ml Output Total 1600 ml 1200 ml Balance -960 ml -1200 ml Intake Oral 640 ml Output Urine Total 1600 ml 1200 ml # Voids 2 # Bowel Movements 2 1 Current Medications Medications (Trade) Dose Ordered Sig/David Route PRN Reason Start Time Stop Time Status Last Admin Dose Admin Acetaminophen (Tylenol) 500 mg Q4H PRN ORAL Mild Pain/Temp > 100.5 06/04/19 02:30 07/01/19 02:29 06/12/19 15:49 Acetaminophen/ Hydrocodone Bitart ([place] 10/325) 1 tab Q4H PRN ORAL PAIN 4-10 06/17/19 12:00 06/24/19 11:59 Apixaban (Eliquis) 5 mg BID ORAL 06/04/19 09:00 07/01/19 17:59 06/17/19 09:49 Atorvastatin Calcium (Lipitor) 40 mg BEDTIME ORAL 06/04/19 21:00 07/01/19 20:59 06/16/19 20:35 Carvedilol (Coreg) 25 mg EVERY 12 HOURS ORAL 06/04/19 09:00 07/01/19 20:59 06/17/19 09:48 Clonidine HCl (Catapres TTS-3) 1 patch QWEEK TDERMAL 06/08/19 12:00 07/01/19 11:59 06/15/19 12:15 Clonidine HCl (Catapres Tab) 0.1 mg Q4H PRN ORAL For High Blood Pressure 06/04/19 01:15 2/28/20 09:14 06/17/19 09:46 Digoxin (Lanoxin) 0.125 mg DAILY ORAL 06/04/19 09:00 07/02/19 08:59 06/17/19 09:47 Docusate Sodium (Colace) 100 mg THREE TIMES A DAY ORAL 06/04/19 09:00 07/01/19 09:31 06/17/19 09:46 Furosemide (Lasix) 80 mg DAILY ORAL 06/08/19 09:00 07/08/19 08:59 06/17/19 09:49 Gabapentin (Neurontin) 300 mg THREE TIMES A DAY ORAL 06/04/19 09:00 07/01/19 09:32 06/17/19 09:47 Hydralazine HCl (Apresoline) 100 mg Q12HR ORAL 06/06/19 21:00 07/06/19 20:59 06/17/19 09:48 Irbesartan (Avapro) 300 mg DAILY ORAL 06/04/19 09:00 07/02/19 08:59 06/17/19 09:48 Magnesium Oxide (Mag-Ox 400mg) 400 mg THREE TIMES A DAY ORAL 06/07/19 18:00 07/07/19 17:59 06/17/19 09:48 Oxycodone HCl (Roxicodone) 5 mg Q4H PRN ORAL Breakthrough Pain 06/17/19 12:00 06/24/19 11:59 Potassium Chloride (K-Dur) 40 meq BID ORAL 06/04/19 09:00 07/03/19 08:59 06/17/19 09:47 Mahesh Wise MD Jun 17, 2019 10:50
--- NOTE | 2019-06-17 11:41 | General Progress Note ---
Assessment/Plan Assessment/Plan: S: I am feeling pain O: remains in mild- sob with slight out of bed activity. complains of pain in all joints . ambulates using walker out of bed Physical ExamVital Signs General Appearance: alert, GCS 15, obese, Chronically Ill Head: normocephalicEyes: bilateral eye PERRL ENT: TMs + canals normal, uvula midlineNeck: full range of motion Respiratory: lungs clear, decreased breath soundsCardiovascular #1: edema - 1 + Edema Gastrointestinal: normal inspection, normal bowel sounds, non tender Musculoskeletal: morbid obesity, minimal non piting edema in LE. 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 Morbid obesity 4. HTN 5. Multiple joint OA 6. Afib 7. NATASHA 8. ARF : improved 10 . GI-DVT prophylaxia 11. Moderate- PAH 12. Hypokalemia Plan: High risk for Re- admission in future SNIF placement will decrease the likely wallace of readmission Pulmonary, Cardiology and Nephrology notes reviewed Notes from PT reviewed PRN pain medication / D/w RN at bed side Disposition : Will followup with PT recommendation , SNIF or to patient's his own plan of care Subjective Allergies: Coded Allergies: RIVAROXABAN (Verified Allergy, Unknown, 04/05/19) Objective Last 24 Hour Vital Signs Date Time Temp Pulse Resp B/P (MAP) Pulse Ox O2 Delivery O2 Flow Rate FiO2 06/17/19 09:48 154/83 06/17/19 09:48 154/83 06/17/19 09:48 71 154/83 06/17/19 09:47 71 06/17/19 09:46 154/83 06/17/19 09:00 Nasal Cannula 3.0 06/17/19 08:00 3.0 99 06/17/19 08:00 98.6 71 22 154/83 (106) 95 06/17/19 07:25 96 Nasal Cannula 2.0 28 06/17/19 05:09 96 06/17/19 04:00 3.0 99 06/17/19 04:00 97.9 69 20 157/96 (116) 95 06/17/19 03:26 94 06/17/19 01:13 96 06/17/19 00:00 3.0 99 06/17/19 00:00 98.2 80 23 155/96 (115) 95 06/16/19 23:17 96 06/16/19 21:33 97 06/16/19 20:36 150/94 06/16/19 20:34 70 150/94 06/16/19 20:00 98.4 70 24 150/94 (112) 96 06/16/19 19:59 3.0 99 06/16/19 19:59 Nasal Cannula 3.0 06/16/19 19:43 74 16 94 35 06/16/19 19:42 94 Bi-Pap 35 06/16/19 18:44 98.2 84 17 158/85 (109) 95 06/16/19 17:38 165/95 06/16/19 16:00 98.2 84 17 165/95 (118) 95 06/16/19 16:00 3.0 99 06/16/19 12:46 162/86 06/16/19 12:00 3.0 99 06/16/19 12:00 98.4 67 20 162/86 (111) 96 Intake and Output 06/16/19 06/17/19 19:00 07:00 Intake Total 640 ml Output Total 1600 ml 1200 ml Balance -960 ml -1200 ml Intake Oral 640 ml Output Urine Total 1600 ml 1200 ml # Voids 2 # Bowel Movements 2 1 Height (Feet): 5 Height (Inches): 10.00 Weight (Pounds): 429 Desirae Haro MD Jun 17, 2019 11:41
--- NOTE | 2019-06-17 12:38 | Nephrology Progress Note ---
Assessment/Plan Problem List: (1) Electrolyte imbalance (2) COPD (chronic obstructive pulmonary disease) (3) CO2 retention (4) CHF (congestive heart failure) (5) Obesity, morbid, BMI 50 or higher Assessment (1) Hypokalemia (2) CHF (congestive heart failure) (3) s/p Renal failure (4) Obesity, morbid, BMI 50 or higher (5) CO2 retention (6) COPD (chronic obstructive pulmonary disease) Obesity , NATASHA AT fib with FVR Congestive heart failure, likely diastolic dysfunction. EF 60% Recurrent NSVT. No syncope. Hypertension. Morbid obesity. COPD. Lipidemia. Plan Plan optimize cardiac and pulm status Keep BP in check Monitor lytes Diamox PO as needed per orders per cardio and pulmonary Subjective ROS Limited/Unobtainable: No Constitutional: Reports: malaise Objective Objective Last 24 Hour Vital Signs Date Time Temp Pulse Resp B/P (MAP) Pulse Ox O2 Delivery O2 Flow Rate FiO2 06/17/19 09:48 154/83 06/17/19 09:48 154/83 06/17/19 09:48 71 154/83 06/17/19 09:47 71 06/17/19 09:46 154/83 06/17/19 09:00 Nasal Cannula 3.0 06/17/19 08:00 3.0 99 06/17/19 08:00 98.6 71 22 154/83 (106) 95 06/17/19 07:25 96 Nasal Cannula 2.0 28 06/17/19 05:09 96 06/17/19 04:00 3.0 99 06/17/19 04:00 97.9 69 20 157/96 (116) 95 06/17/19 03:26 94 06/17/19 01:13 96 06/17/19 00:00 3.0 99 06/17/19 00:00 98.2 80 23 155/96 (115) 95 06/16/19 23:17 96 06/16/19 21:33 97 06/16/19 20:36 150/94 06/16/19 20:34 70 150/94 06/16/19 20:00 98.4 70 24 150/94 (112) 96 06/16/19 19:59 3.0 99 06/16/19 19:59 Nasal Cannula 3.0 06/16/19 19:43 74 16 94 35 06/16/19 19:42 94 Bi-Pap 35 06/16/19 18:44 98.2 84 17 158/85 (109) 95 06/16/19 17:38 165/95 06/16/19 16:00 98.2 84 17 165/95 (118) 95 06/16/19 16:00 3.0 99 06/16/19 12:46 162/86 Intake and Output 06/16/19 06/17/19 19:00 07:00 Intake Total 640 ml Output Total 1600 ml 1200 ml Balance -960 ml -1200 ml Intake Oral 640 ml Output Urine Total 1600 ml 1200 ml # Voids 2 # Bowel Movements 2 1 Height (Feet): 5 Height (Inches): 10.00 Weight (Pounds): 429 General Appearance: no apparent distress EENT: other - BIPAP Cardiovascular: normal rate Respiratory/Chest: decreased breath sounds Abdomen: distended Objective no change Bebeto Yin MD Jun 17, 2019 12:38
[2019-06-17] MEDS: Atorvastatin 20mg tab ORAL SCH (20:38)
[2019-06-17] MEDS: HYDROcodone/Acetamin 10/325 tab ORAL PRN (20:39)
[2019-06-18] VITALS: BP 131/76
[2019-06-18] MEDS: oxyCODONE 5mg IR tab ORAL PRN ×2 (00:07→15:18)
[2019-06-18 04:00] VITALS: BP 134/76
[2019-06-18 08:00] VITALS: BP 143/79
[2019-06-18] MEDS: Digoxin 0.125mg tab ORAL SCH (08:30)
[2019-06-18] MEDS: Carvedilol 25mg Tab ORAL SCH ×2 (08:30→20:07)
[2019-06-18] MEDS: Magnesium Oxide 400mg tab ORAL SCH ×3 (08:30→17:13)
[2019-06-18] MEDS: HydrALAZINE 50mg tab ORAL SCH ×2 (08:31→20:07)
[2019-06-18] MEDS: Docusate 100mg cap ORAL SCH ×3 (08:31→17:13)
[2019-06-18] MEDS: Eliquis 5mg tablet ORAL SCH ×2 (08:31→17:13)
[2019-06-18] MEDS: Irbesartan 150mg tablet ORAL SCH (08:31)
--- NOTE | 2019-06-18 10:28 | Cardiac Electrophysiology PN ---
Assessment/Plan Assessment/Plan 1. Paroxysmal atrial fibrillation, converted to sinus rhythm with frequent PACs. Continue digoxin 0.125 mg daily, Coreg 25 mg b.i.d. and Eliquis 5 mg b.i.d. 2. CHF exacerbation due to diastolic dysfunction. Back on Lasix 80 mg iv daily while inpatient Noncompliant. Orders [facility] from [facility]! 3. Hypertension, on Avapro 300 mg daily, Coreg 25 bid, clonidine patch #3 , Lasix 80 iv daily and Hydralazine 100 bid 4. Obstructive sleep apnea. 5. COPD.On BIPAP 6. Morbid obesity. Needs bariatric evaluation KIAN RN Subjective Subjective BIPAP is on. No CP or SOB. Legs still swollen. Lasix back to 80 iv daily Objective Last 24 Hour Vital Signs Date Time Temp Pulse Resp B/P (MAP) Pulse Ox O2 Delivery O2 Flow Rate FiO2 06/18/19 09:00 Nasal Cannula 3.0 06/18/19 08:31 143/79 06/18/19 08:31 143/79 06/18/19 08:30 71 06/18/19 08:30 71 143/79 06/18/19 08:00 98.0 71 19 143/79 (100) 94 06/18/19 08:00 3.0 99 06/18/19 05:10 70 23 92 35 06/18/19 04:00 98.1 73 19 134/76 (95) 96 06/18/19 04:00 3.0 99 06/18/19 03:58 74 18 92 35 06/18/19 01:32 78 21 94 35 06/18/19 00:00 3.0 99 06/18/19 00:00 98.1 71 20 131/76 (94) 96 06/17/19 22:36 73 16 94 35 06/17/19 21:09 98.0 06/17/19 21:00 Nasal Cannula 3.0 06/17/19 20:39 150/90 06/17/19 20:39 75 150/90 06/17/19 20:00 3.0 06/17/19 20:00 97.4 76 21 155/80 (105) 95 06/17/19 19:32 94 Nasal Cannula 3.0 32 06/17/19 17:54 98.0 75 20 158/90 (112) 94 06/17/19 16:04 161/85 06/17/19 16:00 98.0 75 20 161/85 (110) 94 06/17/19 16:00 3.0 99 06/17/19 12:00 3.0 99 06/17/19 12:00 98.5 71 20 149/83 (105) 95 Intake and Output 06/17/19 06/18/19 19:00 07:00 Intake Total 420 ml 950 ml Output Total 2000 ml 1800 ml Balance -1580 ml -850 ml Intake Oral 420 ml 950 ml Output Urine Total 2000 ml 1800 ml # Bowel Movements 1 1 Objective HEAD AND NECK: Mild JVD. LUNGS: Coarse rhonchi. CARDIOVASCULAR: Regular S1 and S2 with no gallop or murmur. ABDOMEN: Obese. EXTREMITIES: 2+ pitting edema. Sandor Doll MD Jun 18, 2019 10:27
[2019-06-18 12:00] VITALS: BP 148/81
--- NOTE | 2019-06-18 14:18 | Nephrology Progress Note ---
Assessment/Plan Problem List: (1) Electrolyte imbalance (2) COPD (chronic obstructive pulmonary disease) (3) CO2 retention (4) CHF (congestive heart failure) (5) Obesity, morbid, BMI 50 or higher Assessment (1) Hypokalemia (2) CHF (congestive heart failure) (3) s/p Renal failure (4) Obesity, morbid, BMI 50 or higher (5) CO2 retention (6) COPD (chronic obstructive pulmonary disease) Obesity , NATASHA AT fib with FVR Congestive heart failure, likely diastolic dysfunction. EF 60% Recurrent NSVT. No syncope. Hypertension. Morbid obesity. COPD. Lipidemia. Plan Plan Back on Lasix optimize cardiac and pulm status Keep BP in check Monitor lytes Diamox PO as needed per orders per cardio and pulmonary Subjective ROS Limited/Unobtainable: No Constitutional: Reports: malaise, weakness Objective Objective Last 24 Hour Vital Signs Date Time Temp Pulse Resp B/P (MAP) Pulse Ox O2 Delivery O2 Flow Rate FiO2 06/18/19 12:00 3.0 99 06/18/19 12:00 98.3 76 20 148/81 (103) 95 06/18/19 09:00 Nasal Cannula 3.0 06/18/19 08:31 143/79 06/18/19 08:31 143/79 06/18/19 08:30 71 06/18/19 08:30 71 143/79 06/18/19 08:00 98.0 71 19 143/79 (100) 94 06/18/19 08:00 3.0 99 06/18/19 05:10 70 23 92 35 06/18/19 04:00 98.1 73 19 134/76 (95) 96 06/18/19 04:00 3.0 99 06/18/19 03:58 74 18 92 35 06/18/19 01:32 78 21 94 35 06/18/19 00:00 3.0 99 06/18/19 00:00 98.1 71 20 131/76 (94) 96 06/17/19 22:36 73 16 94 35 06/17/19 21:09 98.0 06/17/19 21:00 Nasal Cannula 3.0 06/17/19 20:39 150/90 06/17/19 20:39 75 150/90 06/17/19 20:00 3.0 06/17/19 20:00 97.4 76 21 155/80 (105) 95 06/17/19 19:32 94 Nasal Cannula 3.0 32 06/17/19 17:54 98.0 75 20 158/90 (112) 94 06/17/19 16:04 161/85 06/17/19 16:00 98.0 75 20 161/85 (110) 94 06/17/19 16:00 3.0 99 Intake and Output 06/17/19 06/18/19 19:00 07:00 Intake Total 420 ml 950 ml Output Total 2000 ml 1800 ml Balance -1580 ml -850 ml Intake Oral 420 ml 950 ml Output Urine Total 2000 ml 1800 ml # Bowel Movements 1 1 Height (Feet): 5 Height (Inches): 10.00 Weight (Pounds): 429 General Appearance: no apparent distress EENT: other - BIPAP Cardiovascular: normal rate Respiratory/Chest: decreased breath sounds Abdomen: distended Objective no change Bebeto Yin MD Jun 18, 2019 14:18
[2019-06-18 16:00] VITALS: BP 148/92
--- NOTE | 2019-06-18 18:23 | Pulmonology Progress Note ---
Assessment/Plan Assessment/Plan Pulmonary Progress Note Assessment/Plan Problem List: * CHF * Edema * Chronic hypercapnic respiratory failure * Morbid Obesity * Obstructive Sleep Apnea/Obesity Hypoventilation on O/P BiPAP * Possible COPD * Afib w RVR Plan: * Cont BiPAP PRN QHS * O2 PRN * HHN * Await placement * Monitor volumes, diuresis per cardiology/renal * Salt restriction * monitor labs/renal fn * SNF placement * Bariatric referral as outpatient Subjective Interval Events: Less short of breath. Leg swelling improving, using BiPAP. Allergies: Coded Allergies: RIVAROXABAN (Verified Allergy, Unknown, 04/05/19) All Systems: reviewed and negative except above Objective Vital Signs Noted General Appearance: no acute distress HEENT: mucous membranes moist Respiratory/Chest: lungs clear Cardiovascular: normal rate Abdomen: soft, non tender Extremities: other - mild chronic edema Neurologic/Psychiatric: alert Labs/Microbiology noted Subjective ROS Limited/Unobtainable: No Allergies: Coded Allergies: RIVAROXABAN (Verified Allergy, Unknown, 04/05/19) Objective Last 24 Hour Vital Signs Date Time Temp Pulse Resp B/P (MAP) Pulse Ox O2 Delivery O2 Flow Rate FiO2 06/18/19 16:00 98.8 69 18 148/92 (110) 95 06/18/19 16:00 3.0 99 06/18/19 12:00 3.0 99 06/18/19 12:00 98.3 76 20 148/81 (103) 95 06/18/19 09:00 Nasal Cannula 3.0 06/18/19 08:31 143/79 06/18/19 08:31 143/79 06/18/19 08:30 71 06/18/19 08:30 71 143/79 06/18/19 08:30 98 Nasal Cannula 3.0 32 06/18/19 08:00 98.0 71 19 143/79 (100) 94 06/18/19 08:00 3.0 99 06/18/19 05:10 70 23 92 35 06/18/19 04:00 98.1 73 19 134/76 (95) 96 06/18/19 04:00 3.0 99 06/18/19 03:58 74 18 92 35 06/18/19 01:32 78 21 94 35 06/18/19 00:00 3.0 99 2/15/20 00:00 98.1 71 20 131/76 (94) 96 06/17/19 22:36 73 16 94 35 06/17/19 21:09 98.0 06/17/19 21:00 Nasal Cannula 3.0 06/17/19 20:39 150/90 06/17/19 20:39 75 150/90 06/17/19 20:00 3.0 06/17/19 20:00 97.4 76 21 155/80 (105) 95 06/17/19 19:32 94 Nasal Cannula 3.0 32 Intake and Output 06/17/19 06/18/19 19:00 07:00 Intake Total 420 ml 950 ml Output Total 2000 ml 1800 ml Balance -1580 ml -850 ml Intake Oral 420 ml 950 ml Output Urine Total 2000 ml 1800 ml # Bowel Movements 1 1 Current Medications Medications (Trade) Dose Ordered Sig/David Route PRN Reason Start Time Stop Time Status Last Admin Dose Admin Acetaminophen (Tylenol) 500 mg Q4H PRN ORAL Mild Pain/Temp > 100.5 06/04/19 02:30 07/01/19 02:29 06/12/19 15:49 Acetaminophen/ Hydrocodone Bitart ([place] 10/325) 1 tab Q4H PRN ORAL PAIN 4-10 06/17/19 12:00 06/24/19 11:59 06/17/19 20:39 Apixaban (Eliquis) 5 mg BID ORAL 06/04/19 09:00 07/01/19 17:59 06/18/19 17:13 Atorvastatin Calcium (Lipitor) 40 mg BEDTIME ORAL 06/04/19 21:00 07/01/19 20:59 06/17/19 20:38 Carvedilol (Coreg) 25 mg EVERY 12 HOURS ORAL 06/04/19 09:00 07/01/19 20:59 06/18/19 08:30 Clonidine HCl (Catapres TTS-3) 1 patch QWEEK TDERMAL 06/08/19 12:00 07/01/19 11:59 06/15/19 12:15 Clonidine HCl (Catapres Tab) 0.1 mg Q4H PRN ORAL For High Blood Pressure 06/04/19 01:15 07/01/19 09:14 06/17/19 16:04 Digoxin (Lanoxin) 0.125 mg DAILY ORAL 06/04/19 09:00 07/02/19 08:59 06/18/19 08:30 Docusate Sodium (Colace) 100 mg THREE TIMES A DAY ORAL 06/04/19 09:00 07/01/19 09:31 06/18/19 17:13 Furosemide (Lasix) 80 mg EVERY 12 HOURS IV 06/17/19 21:00 07/17/19 20:59 06/18/19 08:30 Gabapentin (Neurontin) 300 mg THREE TIMES A DAY ORAL 06/04/19 09:00 07/01/19 09:32 06/18/19 17:13 Hydralazine HCl (Apresoline) 100 mg Q12HR ORAL 06/06/19 21:00 07/06/19 20:59 06/18/19 08:31 Irbesartan (Avapro) 300 mg DAILY ORAL 06/04/19 09:00 07/02/19 08:59 06/18/19 08:31 Magnesium Oxide (Mag-Ox 400mg) 400 mg THREE TIMES A DAY ORAL 06/07/19 18:00 07/07/19 17:59 06/18/19 17:13 Oxycodone HCl (Roxicodone) 5 mg Q4H PRN ORAL Breakthrough Pain 06/17/19 12:00 06/24/19 11:59 06/18/19 15:18 Potassium Chloride (K-Dur) 40 meq BID ORAL 06/04/19 09:00 07/03/19 08:59 06/18/19 17:13 Mahesh Wise MD Jun 18, 2019 18:23
--- NOTE | 2019-06-18 19:25 | Internal Med Progress Note ---
Subjective Date of Service: Jun 18, 2019 Physician Name Gerardo Reich Attending Physician Desirae Haro MD Current Medications Medications (Trade) Dose Ordered Sig/David Route PRN Reason Start Time Stop Time Status Last Admin Dose Admin Acetaminophen (Tylenol) 500 mg Q4H PRN ORAL Mild Pain/Temp > 100.5 06/04/19 02:30 07/01/19 02:29 06/12/19 15:49 Acetaminophen/ Hydrocodone Bitart ([place] 10/325) 1 tab Q4H PRN ORAL PAIN 4-10 06/17/19 12:00 06/24/19 11:59 06/17/19 20:39 Apixaban (Eliquis) 5 mg BID ORAL 06/04/19 09:00 07/01/19 17:59 06/18/19 17:13 Atorvastatin Calcium (Lipitor) 40 mg BEDTIME ORAL 06/04/19 21:00 07/01/19 20:59 06/17/19 20:38 Carvedilol (Coreg) 25 mg EVERY 12 HOURS ORAL 06/04/19 09:00 07/01/19 20:59 06/18/19 08:30 Clonidine HCl (Catapres TTS-3) 1 patch QWEEK TDERMAL 06/08/19 12:00 07/01/19 11:59 06/15/19 12:15 Clonidine HCl (Catapres Tab) 0.1 mg Q4H PRN ORAL For High Blood Pressure 06/04/19 01:15 07/01/19 09:14 06/17/19 16:04 Digoxin (Lanoxin) 0.125 mg DAILY ORAL 06/04/19 09:00 07/02/19 08:59 06/18/19 08:30 Docusate Sodium (Colace) 100 mg THREE TIMES A DAY ORAL 06/04/19 09:00 07/01/19 09:31 06/18/19 17:13 Furosemide (Lasix) 80 mg EVERY 12 HOURS IV 06/17/19 21:00 07/17/19 20:59 06/18/19 08:30 Gabapentin (Neurontin) 300 mg THREE TIMES A DAY ORAL 06/04/19 09:00 07/01/19 09:32 06/18/19 17:13 Hydralazine HCl (Apresoline) 100 mg Q12HR ORAL 06/06/19 21:00 07/06/19 20:59 06/18/19 08:31 Irbesartan (Avapro) 300 mg DAILY ORAL 06/04/19 09:00 07/02/19 08:59 06/18/19 08:31 Magnesium Oxide (Mag-Ox 400mg) 400 mg THREE TIMES A DAY ORAL 06/07/19 18:00 07/07/19 17:59 06/18/19 17:13 Oxycodone HCl (Roxicodone) 5 mg Q4H PRN ORAL Breakthrough Pain 06/17/19 12:00 06/24/19 11:59 06/18/19 15:18 Potassium Chloride (K-Dur) 40 meq BID ORAL 06/04/19 09:00 07/03/19 08:59 06/18/19 17:13 Allergies: Coded Allergies: RIVAROXABAN (Verified Allergy, Unknown, 04/05/19) ROS Limited/Unobtainable: No Constitutional: Reports: no symptoms HEENT: Reports: no symptoms Cardiovascular: Reports: no symptoms Respiratory: Reports: shortness of breath Gastrointestinal/Abdominal: Reports: no symptoms Genitourinary: Reports: no symptoms Neurologic/Psychiatric: Reports: no symptoms Subjective 48 YO M admitted with shortness of breath. Now CHF and COPD exacerbation. Cover for Int Bj-Dr Haro Objective Last Vital Signs Date Time Temp Pulse Resp B/P (MAP) Pulse Ox O2 Delivery O2 Flow Rate FiO2 06/18/19 16:00 98.8 69 18 148/92 (110) 95 06/18/19 16:00 3.0 99 06/18/19 09:00 Nasal Cannula General Appearance: WD/WN, no apparent distress, alert, obese EENT: PERRL/EOMI, normal ENT inspection Neck: non-tender, normal alignment, supple, normal inspection Cardiovascular: normal peripheral pulses, normal rate, regular rhythm, no gallop/murmur, no JVD Respiratory/Chest: chest wall non-tender, lungs clear, normal breath sounds, no respiratory distress, no accessory muscle use Abdomen: normal bowel sounds, non tender, soft, no organomegaly, no mass Extremities: normal range of motion, non-tender Edema: trace edema Neurologic: ophthalmic assistant 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 normal, no motor/sensory deficits Skin: normal pigmentation, warm/dry Intake and Output 06/17/19 06/18/19 19:00 07:00 Intake Total 420 ml 950 ml Output Total 2000 ml 1800 ml Balance -1580 ml -850 ml Intake Oral 420 ml 950 ml Output Urine Total 2000 ml 1800 ml # Bowel Movements 1 1 Assessment/Plan Problem List: (1) Obstructive sleep apnea Assessment & Plan: Continue BIPAP-see pulmonary note (2) Obesity (3) COPD (chronic obstructive pulmonary disease) Assessment & Plan: See pulmonary note (4) Paroxysmal atrial fibrillation Assessment & Plan: Continue digoxin-see cardiology note. (5) HTN (hypertension) (6) CHF (congestive heart failure) Assessment & Plan: Diastolic-see cardiology note. (7) Renal failure (ARF), acute on chronic Status: stable Assessment/Plan Discharge planning: [facility] Gerardo Reich MD Jun 18, 2019 19:25
[2019-06-18 20:00] VITALS: BP 162/98
[2019-06-18] MEDS: Atorvastatin 20mg tab ORAL SCH (20:08)
[2019-06-18] MEDS: HYDROcodone/Acetamin 10/325 tab ORAL PRN (20:09)
[2019-06-19] VITALS: BP 140/79
[2019-06-19 04:00] VITALS: BP 150/80
[2019-06-19] MEDS: oxyCODONE 5mg IR tab ORAL PRN ×2 (04:15→17:39)
[2019-06-19 08:00] VITALS: BP 158/97
[2019-06-19 08:31] LABS: BASOPHILS % (AUTO) 1.2 % (0.0-2.0); EOSINOPHILS % (AUTO) 3.5 % (0.0-3.0); HEMATOCRIT 35.7 % (42.0-52.0); HEMOGLOBIN 11.5 G/DL (14.2-18.0); LYMPHOCYTES % (AUTO) 28.1 % (20.0-45.0); MEAN CORPUSCULAR VOLUME 78 FL (80-99); MONOCYTES % (AUTO) 6.3 % (1.0-10.0); NEUTROPHILS % (AUTO) 60.9 % (45.0-75.0); PLATELET COUNT 187 K/UL (150-450); RED CELL DISTRIBUTION WIDTH 15.9 % (11.6-14.8); WHITE BLOOD COUNT 7.6 K/UL (4.8-10.8)
[2019-06-19 09:38] LABS: ALANINE AMINOTRANSFERASE 13 U/L (12-78); ALBUMIN 3.4 G/DL (3.4-5.0); ALKALINE PHOSPHATASE 56 U/L (46-116); ANION GAP 8 mmol/L (5-15); ASPARTATE AMINO TRANSFERASE 13 U/L (15-37); BILIRUBIN,TOTAL 0.5 MG/DL (0.2-1.0); BLOOD UREA NITROGEN 18 mg/dL (7-18); CALCIUM 9.1 MG/DL (8.5-10.1); CARBON DIOXIDE 34 MMOL/L (21-32); CHLORIDE 105 MMOL/L (98-107); CREATININE 1.5 MG/DL (0.55-1.30); PHOSPHORUS 4.8 MG/DL (2.5-4.9); POTASSIUM 3.8 MMOL/L (3.5-5.1); SODIUM 146 MMOL/L (136-145)
[2019-06-19] MEDS: Carvedilol 25mg Tab ORAL SCH ×2 (10:21→20:34)
[2019-06-19] MEDS: Docusate 100mg cap ORAL SCH ×3 (10:22→17:39)
[2019-06-19] MEDS: Digoxin 0.125mg tab ORAL SCH (10:22)
[2019-06-19] MEDS: Irbesartan 150mg tablet ORAL SCH (10:22)
[2019-06-19] MEDS: HYDROcodone/Acetamin 10/325 tab ORAL PRN ×2 (10:23→22:48)
[2019-06-19] MEDS: HydrALAZINE 50mg tab ORAL SCH ×2 (10:24→20:34)
[2019-06-19] MEDS: Eliquis 5mg tablet ORAL SCH ×2 (10:24→17:39)
[2019-06-19] MEDS: Magnesium Oxide 400mg tab ORAL SCH ×3 (10:24→17:39)
--- NOTE | 2019-06-19 10:29 | Cardiac Electrophysiology PN ---
Assessment/Plan Assessment/Plan 1. Paroxysmal atrial fibrillation, converted to sinus rhythm with frequent PACs. Continue digoxin 0.125 mg daily, Coreg 25 mg b.i.d. and Eliquis 5 mg b.i.d. 2. Acute on chronic diastolic CHF. On Lasix 80 mg iv daily while inpatient 3. Hypertension, on Avapro 300 mg daily, Coreg 25 bid, clonidine patch #3 , Lasix 80 iv daily and Hydralazine 100 bid 4. Obstructive sleep apnea. 5. COPD.On BIPAP 6. Morbid obesity. Needs bariatric evaluation KIAN RN Subjective Subjective Was on BIPAP overnight. No CP or SOB. Legs still swollen. On Lasix 80 iv daily Objective Last 24 Hour Vital Signs Date Time Temp Pulse Resp B/P (MAP) Pulse Ox O2 Delivery O2 Flow Rate FiO2 06/19/19 10:24 158/97 06/19/19 10:22 158/97 06/19/19 10:22 76 06/19/19 10:21 76 158/97 06/19/19 08:00 98.6 76 19 158/97 (117) 96 06/19/19 08:00 3.0 99 06/19/19 04:00 98.6 79 20 150/80 (103) 97 06/19/19 04:00 3.0 99 06/19/19 03:30 75 20 96 35 06/19/19 00:00 3.0 99 06/19/19 00:00 97.9 85 20 140/79 (99) 97 06/18/19 23:36 76 21 95 35 06/18/19 21:00 Nasal Cannula 3.0 06/18/19 20:07 162/98 06/18/19 20:07 88 162/98 06/18/19 20:00 99.0 88 20 162/98 (119) 95 06/18/19 20:00 3.0 99 06/18/19 19:00 96 Nasal Cannula 3.0 32 06/18/19 16:00 98.8 69 18 148/92 (110) 95 06/18/19 16:00 3.0 99 06/18/19 12:00 3.0 99 06/18/19 12:00 98.3 76 20 148/81 (103) 95 Intake and Output 06/18/19 06/19/19 19:00 07:00 Intake Total 1200 ml 180 ml Output Total 1900 ml Balance 1200 ml -1720 ml Intake Oral 1200 ml Other 180 ml Output Urine Total 1900 ml # Voids 8 # Bowel Movements 1 1 Laboratory Tests Test 06/19/19 06:30 White Blood Count 7.6 K/UL (4.8-10.8) Red Blood Count 4.60 M/UL (4.70-6.10) L Hemoglobin 11.5 G/DL (14.2-18.0) L Hematocrit 35.7 % (42.0-52.0) L Mean Corpuscular Volume 78 FL (80-99) L Mean Corpuscular Hemoglobin 25.0 PG (27.0-31.0) L Mean Corpuscular Hemoglobin Concent 32.1 G/DL (32.0-36.0) Red Cell Distribution Width 15.9 % (11.6-14.8) H Platelet Count 187 K/UL (150-450) Mean Platelet Volume 11.0 FL (6.5-10.1) H Neutrophils (%) (Auto) 60.9 % (45.0-75.0) Lymphocytes (%) (Auto) 28.1 % (20.0-45.0) Monocytes (%) (Auto) 6.3 % (1.0-10.0) Eosinophils (%) (Auto) 3.5 % (0.0-3.0) H Basophils (%) (Auto) 1.2 % (0.0-2.0) Sodium Level 146 MMOL/L (136-145) H Potassium Level 3.8 MMOL/L (3.5-5.1) Chloride Level 105 MMOL/L (98-107) Carbon Dioxide Level 34 MMOL/L (21-32) H Anion Gap 8 mmol/L (5-15) Blood Urea Nitrogen 18 mg/dL (7-18) Creatinine 1.5 MG/DL (0.55-1.30) H Estimat Glomerular Filtration Rate > 60 mL/min (>60) Glucose Level 108 MG/DL (74-106) H Uric Acid 6.4 MG/DL (2.6-7.2) Calcium Level 9.1 MG/DL (8.5-10.1) Phosphorus Level 4.8 MG/DL (2.5-4.9) Magnesium Level 2.1 MG/DL (1.8-2.4) Total Bilirubin 0.5 MG/DL (0.2-1.0) Aspartate Amino Transf (AST/SGOT) 13 U/L (15-37) L Alanine Aminotransferase (ALT/SGPT) 13 U/L (12-78) Alkaline Phosphatase 56 U/L (46-116) C-Reactive Protein, Quantitative 1.8 mg/dL (0.00-0.90) H Pro-B-Type Natriuretic Peptide 233 pg/mL (0-125) H Total Protein 6.9 G/DL (6.4-8.2) Albumin 3.4 G/DL (3.4-5.0) Globulin 3.5 g/dL Albumin/Globulin Ratio 1.0 (1.0-2.7) Objective HEAD AND NECK: Mild JVD. LUNGS: Coarse rhonchi. CARDIOVASCULAR: Regular S1 and S2 with no gallop or murmur. ABDOMEN: Obese. EXTREMITIES: 2+ pitting edema. Sandor Doll MD Jun 19, 2019 10:29
--- NOTE | 2019-06-19 11:09 | Nephrology Progress Note ---
Assessment/Plan Problem List: (1) Electrolyte imbalance (2) COPD (chronic obstructive pulmonary disease) (3) CO2 retention (4) CHF (congestive heart failure) (5) Obesity, morbid, BMI 50 or higher Assessment (1) Hypokalemia (2) CHF (congestive heart failure) (3) s/p Renal failure (4) Obesity, morbid, BMI 50 or higher (5) CO2 retention (6) COPD (chronic obstructive pulmonary disease) Obesity , NATASHA AT fib with FVR Congestive heart failure, likely diastolic dysfunction. EF 60% Recurrent NSVT. No syncope. Hypertension. Morbid obesity. COPD. Lipidemia. Plan Plan Back on Lasix optimize cardiac and pulm status Keep BP in check Monitor lytes Diamox PO as needed per orders per cardio and pulmonary Subjective ROS Limited/Unobtainable: No Constitutional: Reports: malaise, weakness Objective Objective Last 24 Hour Vital Signs Date Time Temp Pulse Resp B/P (MAP) Pulse Ox O2 Delivery O2 Flow Rate FiO2 06/19/19 10:24 158/97 06/19/19 10:22 158/97 06/19/19 10:22 76 06/19/19 10:21 76 158/97 06/19/19 08:00 98.6 76 19 158/97 (117) 96 06/19/19 08:00 3.0 99 06/19/19 04:00 98.6 79 20 150/80 (103) 97 06/19/19 04:00 3.0 99 06/19/19 03:30 75 20 96 35 06/19/19 00:00 3.0 99 06/19/19 00:00 97.9 85 20 140/79 (99) 97 06/18/19 23:36 76 21 95 35 06/18/19 21:00 Nasal Cannula 3.0 06/18/19 20:07 162/98 06/18/19 20:07 88 162/98 06/18/19 20:00 99.0 88 20 162/98 (119) 95 06/18/19 20:00 3.0 99 06/18/19 19:00 96 Nasal Cannula 3.0 32 06/18/19 16:00 98.8 69 18 148/92 (110) 95 06/18/19 16:00 3.0 99 06/18/19 12:00 3.0 99 06/18/19 12:00 98.3 76 20 148/81 (103) 95 Intake and Output 06/18/19 06/19/19 19:00 07:00 Intake Total 1200 ml 180 ml Output Total 1900 ml Balance 1200 ml -1720 ml Intake Oral 1200 ml Other 180 ml Output Urine Total 1900 ml # Voids 8 # Bowel Movements 1 1 Laboratory Tests 06/19/19 06:30: White Blood Count 7.6, Red Blood Count 4.60L, Hemoglobin 11.5L, Hematocrit 35.7L , Mean Corpuscular Volume 78L, Mean Corpuscular Hemoglobin 25.0L, Mean Corpuscular Hemoglobin Concent 32.1, Red Cell Distribution Width 15.9H, Platelet Count 187, Mean Platelet Volume 11.0H, Neutrophils (%) (Auto) 60.9, Lymphocytes (%) (Auto) 28.1, Monocytes (%) (Auto) 6.3, Eosinophils (%) (Auto) 3.5H, Basophils (%) (Auto) 1.2, Sodium Level 146H, Potassium Level 3.8, Chloride Level 105, Carbon Dioxide Level 34H, Anion Gap 8, Blood Urea Nitrogen 18, Creatinine 1.5H, Estimat Glomerular Filtration Rate > 60, Glucose Level 108H , Uric Acid 6.4, Calcium Level 9.1, Phosphorus Level 4.8, Magnesium Level 2.1, Total Bilirubin 0.5, Aspartate Amino Transf (AST/SGOT) 13L, Alanine Aminotransferase (ALT/SGPT) 13, Alkaline Phosphatase 56, C-Reactive Protein, Quantitative 1.8H, Pro-B-Type Natriuretic Peptide 233H, Total Protein 6.9, Albumin 3.4, Globulin 3.5, Albumin/Globulin Ratio 1.0 Height (Feet): 5 Height (Inches): 10.00 Weight (Pounds): 429 General Appearance: no apparent distress Objective no change Bebeto Yin MD Jun 19, 2019 11:09
--- NOTE | 2019-06-19 11:27 | General Progress Note ---
Assessment/Plan Assessment/Plan: (1) Lumbar DDD (2) Lumbar Spondylosis (3) Morbid obesity Patient to be continued on oxycodone and [place]. D/w Dr. Stack and he concurred. Subjective Date patient seen: Jun 19, 2019 Time patient seen: 10:45 - am Allergies: Coded Allergies: RIVAROXABAN (Verified Allergy, Unknown, 04/05/19) Subjective Constitutional: Reports: weakness HEENT: Reports: no symptoms Cardiovascular: Reports: no symptoms Respiratory: Reports: shortness of breath Gastrointestinal/Abdominal: Reports: no symptoms Genitourinary: Reports: no symptoms Neurologic/Psychiatric: Reports: no symptoms Endocrine: Reports: no symptoms Hematologic/Lymphatic: Reports: no symptoms Subjective Patient doing well, pain tolerated on the [place] and Oxycodone. Objective Last 24 Hour Vital Signs Date Time Temp Pulse Resp B/P (MAP) Pulse Ox O2 Delivery O2 Flow Rate FiO2 06/19/19 10:24 158/97 06/19/19 10:22 158/97 06/19/19 10:22 76 06/19/19 10:21 76 158/97 06/19/19 08:00 98.6 76 19 158/97 (117) 96 06/19/19 08:00 3.0 99 06/19/19 04:00 98.6 79 20 150/80 (103) 97 06/19/19 04:00 3.0 99 06/19/19 03:30 75 20 96 35 06/19/19 00:00 3.0 99 06/19/19 00:00 97.9 85 20 140/79 (99) 97 06/18/19 23:36 76 21 95 35 06/18/19 21:00 Nasal Cannula 3.0 06/18/19 20:07 162/98 06/18/19 20:07 88 162/98 06/18/19 20:00 99.0 88 20 162/98 (119) 95 06/18/19 20:00 3.0 99 06/18/19 19:00 96 Nasal Cannula 3.0 32 06/18/19 16:00 98.8 69 18 148/92 (110) 95 06/18/19 16:00 3.0 99 06/18/19 12:00 3.0 99 06/18/19 12:00 98.3 76 20 148/81 (103) 95 Intake and Output 06/18/19 06/19/19 19:00 07:00 Intake Total 1200 ml 180 ml Output Total 1900 ml Balance 1200 ml -1720 ml Intake Oral 1200 ml Other 180 ml Output Urine Total 1900 ml # Voids 8 # Bowel Movements 1 1 Laboratory Tests 06/19/19 06:30: White Blood Count 7.6, Red Blood Count 4.60L, Hemoglobin 11.5L, Hematocrit 35.7L , Mean Corpuscular Volume 78L, Mean Corpuscular Hemoglobin 25.0L, Mean Corpuscular Hemoglobin Concent 32.1, Red Cell Distribution Width 15.9H, Platelet Count 187, Mean Platelet Volume 11.0H, Neutrophils (%) (Auto) 60.9, Lymphocytes (%) (Auto) 28.1, Monocytes (%) (Auto) 6.3, Eosinophils (%) (Auto) 3.5H, Basophils (%) (Auto) 1.2, Sodium Level 146H, Potassium Level 3.8, Chloride Level 105, Carbon Dioxide Level 34H, Anion Gap 8, Blood Urea Nitrogen 18, Creatinine 1.5H, Estimat Glomerular Filtration Rate > 60, Glucose Level 108H , Uric Acid 6.4, Calcium Level 9.1, Phosphorus Level 4.8, Magnesium Level 2.1, Total Bilirubin 0.5, Aspartate Amino Transf (AST/SGOT) 13L, Alanine Aminotransferase (ALT/SGPT) 13, Alkaline Phosphatase 56, C-Reactive Protein, Quantitative 1.8H, Pro-B-Type Natriuretic Peptide 233H, Total Protein 6.9, Albumin 3.4, Globulin 3.5, Albumin/Globulin Ratio 1.0 Height (Feet): 5 Height (Inches): 10.00 Weight (Pounds): 429 Objective General Appearance: no apparent distress, alert EENT: PERRL/EOMI Neck: non-tender, normal alignment Cardiovascular: normal rate, regular rhythm Respiratory/Chest: decreased breath sounds Abdomen: non tender, soft Extremities: non-tender Edema: moderate edema Neurologic: alert, oriented x 3 Skin: warm/dry Osito Sultana Jun 19, 2019 11:27
[2019-06-19 16:00] VITALS: BP 150/82
--- NOTE | 2019-06-19 16:43 | Internal Med Progress Note ---
Subjective Date of Service: Jun 19, 2019 Physician Name Gerardo Reich Attending Physician Desirae Haro MD Current Medications Medications (Trade) Dose Ordered Sig/David Route PRN Reason Start Time Stop Time Status Last Admin Dose Admin Acetaminophen (Tylenol) 500 mg Q4H PRN ORAL Mild Pain/Temp > 100.5 06/04/19 02:30 07/01/19 02:29 06/12/19 15:49 Acetaminophen/ Hydrocodone Bitart ([place] 10/325) 1 tab Q4H PRN ORAL PAIN 4-10 06/17/19 12:00 06/24/19 11:59 06/19/19 10:23 Apixaban (Eliquis) 5 mg BID ORAL 06/04/19 09:00 07/01/19 17:59 06/19/19 10:24 Atorvastatin Calcium (Lipitor) 40 mg BEDTIME ORAL 06/04/19 21:00 07/01/19 20:59 06/18/19 20:08 Carvedilol (Coreg) 25 mg EVERY 12 HOURS ORAL 06/04/19 09:00 07/01/19 20:59 06/19/19 10:21 Clonidine HCl (Catapres TTS-3) 1 patch QWEEK TDERMAL 06/08/19 12:00 07/01/19 11:59 06/15/19 12:15 Clonidine HCl (Catapres Tab) 0.1 mg Q4H PRN ORAL For High Blood Pressure 06/04/19 01:15 07/01/19 09:14 06/17/19 16:04 Digoxin (Lanoxin) 0.125 mg DAILY ORAL 06/04/19 09:00 07/02/19 08:59 06/19/19 10:22 Docusate Sodium (Colace) 100 mg THREE TIMES A DAY ORAL 06/04/19 09:00 07/01/19 09:31 06/19/19 14:45 Furosemide (Lasix) 80 mg EVERY 12 HOURS IV 06/17/19 21:00 07/17/19 20:59 06/19/19 10:20 Gabapentin (Neurontin) 300 mg THREE TIMES A DAY ORAL 06/04/19 09:00 07/01/19 09:32 06/19/19 14:45 Hydralazine HCl (Apresoline) 100 mg Q12HR ORAL 06/06/19 21:00 07/06/19 20:59 06/19/19 10:24 Irbesartan (Avapro) 300 mg DAILY ORAL 06/04/19 09:00 07/02/19 08:59 06/19/19 10:22 Magnesium Oxide (Mag-Ox 400mg) 400 mg THREE TIMES A DAY ORAL 06/07/19 18:00 07/07/19 17:59 06/19/19 14:44 Oxycodone HCl (Roxicodone) 5 mg Q4H PRN ORAL Breakthrough Pain 06/17/19 12:00 06/24/19 11:59 06/19/19 04:15 Potassium Chloride (K-Dur) 40 meq BID ORAL 06/04/19 09:00 07/03/19 08:59 06/19/19 10:21 Allergies: Coded Allergies: RIVAROXABAN (Verified Allergy, Unknown, 04/05/19) ROS Limited/Unobtainable: No Constitutional: Reports: no symptoms HEENT: Reports: no symptoms Cardiovascular: Reports: no symptoms Respiratory: Reports: shortness of breath Gastrointestinal/Abdominal: Reports: no symptoms Genitourinary: Reports: no symptoms Neurologic/Psychiatric: Reports: no symptoms Subjective 48 YO M admitted with shortness of breath. Now CHF and COPD exacerbation. Cover for Int Med-Dr Haro Objective Last Vital Signs Date Time Temp Pulse Resp B/P (MAP) Pulse Ox O2 Delivery O2 Flow Rate FiO2 06/19/19 12:00 3.0 99 06/19/19 10:53 98.6 06/19/19 10:24 158/97 06/19/19 10:22 76 06/19/19 09:00 Nasal Cannula 06/19/19 08:00 19 96 Laboratory Tests Test 06/19/19 06:30 White Blood Count 7.6 K/UL (4.8-10.8) Red Blood Count 4.60 M/UL (4.70-6.10) L Hemoglobin 11.5 G/DL (14.2-18.0) L Hematocrit 35.7 % (42.0-52.0) L Mean Corpuscular Volume 78 FL (80-99) L Mean Corpuscular Hemoglobin 25.0 PG (27.0-31.0) L Mean Corpuscular Hemoglobin Concent 32.1 G/DL (32.0-36.0) Red Cell Distribution Width 15.9 % (11.6-14.8) H Platelet Count 187 K/UL (150-450) Mean Platelet Volume 11.0 FL (6.5-10.1) H Neutrophils (%) (Auto) 60.9 % (45.0-75.0) Lymphocytes (%) (Auto) 28.1 % (20.0-45.0) Monocytes (%) (Auto) 6.3 % (1.0-10.0) Eosinophils (%) (Auto) 3.5 % (0.0-3.0) H Basophils (%) (Auto) 1.2 % (0.0-2.0) Sodium Level 146 MMOL/L (136-145) H Potassium Level 3.8 MMOL/L (3.5-5.1) Chloride Level 105 MMOL/L (98-107) Carbon Dioxide Level 34 MMOL/L (21-32) H Anion Gap 8 mmol/L (5-15) Blood Urea Nitrogen 18 mg/dL (7-18) Creatinine 1.5 MG/DL (0.55-1.30) H Estimat Glomerular Filtration Rate > 60 mL/min (>60) Glucose Level 108 MG/DL (74-106) H Uric Acid 6.4 MG/DL (2.6-7.2) Calcium Level 9.1 MG/DL (8.5-10.1) Phosphorus Level 4.8 MG/DL (2.5-4.9) Magnesium Level 2.1 MG/DL (1.8-2.4) Total Bilirubin 0.5 MG/DL (0.2-1.0) Aspartate Amino Transf (AST/SGOT) 13 U/L (15-37) L Alanine Aminotransferase (ALT/SGPT) 13 U/L (12-78) Alkaline Phosphatase 56 U/L (46-116) C-Reactive Protein, Quantitative 1.8 mg/dL (0.00-0.90) H Pro-B-Type Natriuretic Peptide 233 pg/mL (0-125) H Total Protein 6.9 G/DL (6.4-8.2) Albumin 3.4 G/DL (3.4-5.0) Globulin 3.5 g/dL Albumin/Globulin Ratio 1.0 (1.0-2.7) Intake and Output 06/18/19 06/19/19 19:00 07:00 Intake Total 1200 ml 180 ml Output Total 1900 ml Balance 1200 ml -1720 ml Intake Oral 1200 ml Other 180 ml Output Urine Total 1900 ml # Voids 8 # Bowel Movements 1 1 Objective Objective General Appearance: WD/WN, no apparent distress, alert, obese EENT: PERRL/EOMI, normal ENT inspection Neck: non-tender, normal alignment, supple, normal inspection Cardiovascular: normal peripheral pulses, normal rate, regular rhythm, no gallop/murmur, no JVD Respiratory/Chest: chest wall non-tender, lungs clear, normal breath sounds, no respiratory distress, no accessory muscle use Abdomen: normal bowel sounds, non tender, soft, no organomegaly, no mass Extremities: normal range of motion, non-tender Edema: trace edema 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 (5) HTN (hypertension) (6) CHF (congestive heart failure) Assessment & Plan: Diastolic-see cardiology note. (7) Renal failure (ARF), acute on chronic Assessment/Plan Discharge planning: [facility] Gerardo Reich MD Jun 19, 2019 16:43
--- NOTE | 2019-06-19 17:06 | Pulmonology Progress Note ---
Assessment/Plan Assessment/Plan Pulmonary Progress Note Assessment/Plan Problem List: * CHF * Edema improving * Chronic hypercapnic respiratory failure * Morbid Obesity * Obstructive Sleep Apnea/Obesity Hypoventilation on O/P BiPAP * Possible COPD * Afib w RVR Plan: * Cont BiPAP PRN QHS * O2 PRN * HHN * Await placement * Monitor volumes, diuresis per cardiology/renal * Salt restriction * monitor labs/renal fn * SNF placement * Bariatric referral as outpatient Subjective Interval Events: Less short of breath. Leg swelling improving, using BiPAP. Allergies: Coded Allergies: RIVAROXABAN (Verified Allergy, Unknown, 04/05/19) All Systems: reviewed and negative except above Objective Vital Signs Noted General Appearance: no acute distress HEENT: mucous membranes moist Respiratory/Chest: lungs clear Cardiovascular: normal rate Abdomen: soft, non tender Extremities: other - mild chronic edema Neurologic/Psychiatric: alert Labs/Microbiology noted Subjective ROS Limited/Unobtainable: No Allergies: Coded Allergies: RIVAROXABAN (Verified Allergy, Unknown, 04/05/19) Objective Last 24 Hour Vital Signs Date Time Temp Pulse Resp B/P (MAP) Pulse Ox O2 Delivery O2 Flow Rate FiO2 06/19/19 16:00 3.0 99 06/19/19 12:00 3.0 99 06/19/19 10:53 98.6 06/19/19 10:24 158/97 06/19/19 10:22 158/97 06/19/19 10:22 76 06/19/19 10:21 76 158/97 06/19/19 09:00 Nasal Cannula 3.0 06/19/19 08:00 98.6 76 19 158/97 (117) 96 06/19/19 08:00 3.0 99 06/19/19 04:00 98.6 79 20 150/80 (103) 97 06/19/19 04:00 3.0 99 06/19/19 03:30 75 20 96 35 06/19/19 00:00 3.0 99 06/19/19 00:00 97.9 85 20 140/79 (99) 97 06/18/19 23:36 76 21 95 35 06/18/19 21:00 Nasal Cannula 3.0 06/18/19 20:07 162/98 06/18/19 20:07 88 162/98 06/18/19 20:00 99.0 88 20 162/98 (119) 95 06/18/19 20:00 3.0 99 06/18/19 19:00 96 Nasal Cannula 3.0 32 Intake and Output 06/18/19 06/19/19 19:00 07:00 Intake Total 1200 ml 180 ml Output Total 1900 ml Balance 1200 ml -1720 ml Intake Oral 1200 ml Other 180 ml Output Urine Total 1900 ml # Voids 8 # Bowel Movements 1 1 Laboratory Tests 06/19/19 06:30: White Blood Count 7.6, Red Blood Count 4.60L, Hemoglobin 11.5L, Hematocrit 35.7L , Mean Corpuscular Volume 78L, Mean Corpuscular Hemoglobin 25.0L, Mean Corpuscular Hemoglobin Concent 32.1, Red Cell Distribution Width 15.9H, Platelet Count 187, Mean Platelet Volume 11.0H, Neutrophils (%) (Auto) 60.9, Lymphocytes (%) (Auto) 28.1, Monocytes (%) (Auto) 6.3, Eosinophils (%) (Auto) 3.5H, Basophils (%) (Auto) 1.2, Sodium Level 146H, Potassium Level 3.8, Chloride Level 105, Carbon Dioxide Level 34H, Anion Gap 8, Blood Urea Nitrogen 18, Creatinine 1.5H, Estimat Glomerular Filtration Rate > 60, Glucose Level 108H , Uric Acid 6.4, Calcium Level 9.1, Phosphorus Level 4.8, Magnesium Level 2.1, Total Bilirubin 0.5, Aspartate Amino Transf (AST/SGOT) 13L, Alanine Aminotransferase (ALT/SGPT) 13, Alkaline Phosphatase 56, C-Reactive Protein, Quantitative 1.8H, Pro-B-Type Natriuretic Peptide 233H, Total Protein 6.9, Albumin 3.4, Globulin 3.5, Albumin/Globulin Ratio 1.0 Current Medications Medications (Trade) Dose Ordered Sig/David Route PRN Reason Start Time Stop Time Status Last Admin Dose Admin Acetaminophen (Tylenol) 500 mg Q4H PRN ORAL Mild Pain/Temp > 100.5 06/04/19 02:30 07/01/19 02:29 06/12/19 15:49 Acetaminophen/ Hydrocodone Bitart ([place] 10/325) 1 tab Q4H PRN ORAL PAIN 4-10 06/17/19 12:00 06/24/19 11:59 06/19/19 10:23 Apixaban (Eliquis) 5 mg BID ORAL 06/04/19 09:00 07/01/19 17:59 06/19/19 10:24 Atorvastatin Calcium (Lipitor) 40 mg BEDTIME ORAL 06/04/19 21:00 07/01/19 20:59 06/18/19 20:08 Carvedilol (Coreg) 25 mg EVERY 12 HOURS ORAL 06/04/19 09:00 07/01/19 20:59 06/19/19 10:21 Clonidine HCl (Catapres TTS-3) 1 patch QWEEK TDERMAL 06/08/19 12:00 07/01/19 11:59 06/15/19 12:15 Clonidine HCl (Catapres Tab) 0.1 mg Q4H PRN ORAL For High Blood Pressure 06/04/19 01:15 07/01/19 09:14 06/17/19 16:04 Digoxin (Lanoxin) 0.125 mg DAILY ORAL 06/04/19 09:00 07/02/19 08:59 06/19/19 10:22 Docusate Sodium (Colace) 100 mg THREE TIMES A DAY ORAL 06/04/19 09:00 07/01/19 09:31 06/19/19 14:45 Furosemide (Lasix) 80 mg EVERY 12 HOURS IV 06/17/19 21:00 07/17/19 20:59 06/19/19 10:20 Gabapentin (Neurontin) 300 mg THREE TIMES A DAY ORAL 06/04/19 09:00 07/01/19 09:32 06/19/19 14:45 Hydralazine HCl (Apresoline) 100 mg Q12HR ORAL 06/06/19 21:00 07/06/19 20:59 06/19/19 10:24 Irbesartan (Avapro) 300 mg DAILY ORAL 06/04/19 09:00 07/02/19 08:59 06/19/19 10:22 Magnesium Oxide (Mag-Ox 400mg) 400 mg THREE TIMES A DAY ORAL 06/07/19 18:00 07/07/19 17:59 06/19/19 14:44 Oxycodone HCl (Roxicodone) 5 mg Q4H PRN ORAL Breakthrough Pain 06/17/19 12:00 06/24/19 11:59 06/19/19 04:15 Potassium Chloride (K-Dur) 40 meq BID ORAL 06/04/19 09:00 07/03/19 08:59 06/19/19 10:21 Mahesh Wise MD Jun 19, 2019 17:06
[2019-06-19 20:00] VITALS: BP 133/95
[2019-06-19] MEDS: Atorvastatin 20mg tab ORAL SCH (20:35)
[2019-06-20] VITALS: BP 135/77
[2019-06-20 04:00] VITALS: BP 123/71
--- NOTE | 2019-06-20 08:13 | General Progress Note ---
Assessment/Plan Assessment/Plan: (1) Lumbar DDD (2) Lumbar Spondylosis (3) Morbid obesity Patient to be continued on oxycodone and [place]. D/w Dr. Stack and he concurred. Subjective Date patient seen: Jun 20, 2019 Time patient seen: 07:30 - am Allergies: Coded Allergies: RIVAROXABAN (Verified Allergy, Unknown, 04/05/19) Subjective Constitutional: Reports: weakness HEENT: Reports: no symptoms Cardiovascular: Reports: no symptoms Respiratory: Reports: shortness of breath Gastrointestinal/Abdominal: Reports: no symptoms Genitourinary: Reports: no symptoms Neurologic/Psychiatric: Reports: no symptoms Endocrine: Reports: no symptoms Hematologic/Lymphatic: Reports: no symptoms Subjective Patient is sitting up in bed reports pain at a moderate level using the [place] and Oxycodone which has been keeping his pain tolerable. Has no new complaints at this time. Objective Last 24 Hour Vital Signs Date Time Temp Pulse Resp B/P (MAP) Pulse Ox O2 Delivery O2 Flow Rate FiO2 06/20/19 05:42 81 25 96 35 06/20/19 04:00 98.0 71 20 123/71 (88) 96 06/20/19 04:00 3.0 99 06/20/19 03:12 79 25 95 35 06/20/19 02:30 88 25 96 35 06/20/19 00:34 75 27 96 35 06/20/19 00:00 97.8 81 20 135/77 (96) 94 06/19/19 23:14 78 27 96 35 06/19/19 21:00 Nasal Cannula 3.0 06/19/19 20:34 133/95 06/19/19 20:34 79 133/95 06/19/19 20:00 97.5 79 20 133/95 (108) 95 06/19/19 20:00 3.0 99 06/19/19 19:41 95 Nasal Cannula 3.0 32 06/19/19 16:00 3.0 99 06/19/19 16:00 98.4 77 20 150/82 (104) 96 06/19/19 12:00 3.0 99 06/19/19 10:53 98.6 06/19/19 10:24 158/97 06/19/19 10:22 158/97 06/19/19 10:22 76 06/19/19 10:21 76 158/97 06/19/19 09:00 Nasal Cannula 3.0 Intake and Output 06/19/19 06/20/19 19:00 07:00 Intake Total 1240 ml 600 ml Output Total 1400 ml Balance 1240 ml -800 ml Intake Oral 1240 ml 600 ml Output Urine Total 1400 ml # Voids 8 3 # Bowel Movements 1 1 Height (Feet): 5 Height (Inches): 10.00 Weight (Pounds): 429 Objective General Appearance: no apparent distress, alert EENT: PERRL/EOMI Neck: non-tender, normal alignment Cardiovascular: normal rate, regular rhythm Respiratory/Chest: decreased breath sounds Abdomen: non tender, soft Extremities: non-tender Edema: moderate edema Neurologic: alert, oriented x 3 Skin: warm/dry Osito Sultana Jun 20, 2019 08:13
[2019-06-20] MEDS: Magnesium Oxide 400mg tab ORAL SCH ×3 (09:55→17:26)
[2019-06-20] MEDS: Docusate 100mg cap ORAL SCH ×3 (09:56→17:26)
[2019-06-20] MEDS: Eliquis 5mg tablet ORAL SCH ×2 (09:56→17:26)
[2019-06-20 09:58] VITALS: BP 139/84
[2019-06-20] MEDS: HydrALAZINE 50mg tab ORAL SCH ×2 (10:00→20:58)
[2019-06-20] MEDS: Digoxin 0.125mg tab ORAL SCH (10:01)
[2019-06-20] MEDS: Carvedilol 25mg Tab ORAL SCH ×2 (10:01→20:59)
[2019-06-20] MEDS: Irbesartan 150mg tablet ORAL SCH (10:02)
[2019-06-20] MEDS: oxyCODONE 5mg IR tab ORAL PRN (10:46)
--- NOTE | 2019-06-20 10:48 | Nephrology Progress Note ---
Assessment/Plan Problem List: (1) Electrolyte imbalance (2) COPD (chronic obstructive pulmonary disease) (3) CO2 retention (4) CHF (congestive heart failure) (5) Obesity, morbid, BMI 50 or higher Assessment (1) Hypokalemia (2) CHF (congestive heart failure) (3) s/p Renal failure (4) Obesity, morbid, BMI 50 or higher (5) CO2 retention (6) COPD (chronic obstructive pulmonary disease) Obesity , NATASHA AT fib with FVR Congestive heart failure, likely diastolic dysfunction. EF 60% Recurrent NSVT. No syncope. Hypertension. Morbid obesity. COPD. Lipidemia. Plan Plan Back on Lasix optimize cardiac and pulm status Keep BP in check Monitor lytes Diamox PO as needed per orders per cardio and pulmonary Subjective ROS Limited/Unobtainable: No Constitutional: Reports: malaise Objective Objective Last 24 Hour Vital Signs Date Time Temp Pulse Resp B/P (MAP) Pulse Ox O2 Delivery O2 Flow Rate FiO2 06/20/19 10:02 139/84 06/20/19 10:01 83 06/20/19 10:01 83 139/84 06/20/19 10:00 139/84 06/20/19 09:58 83 139/84 (102) 06/20/19 05:42 81 25 96 35 06/20/19 04:00 98.0 71 20 123/71 (88) 96 06/20/19 04:00 3.0 99 06/20/19 03:12 79 25 95 35 06/20/19 02:30 88 25 96 35 06/20/19 00:34 75 27 96 35 06/20/19 00:00 97.8 81 20 135/77 (96) 94 06/19/19 23:14 78 27 96 35 06/19/19 21:00 Nasal Cannula 3.0 06/19/19 20:34 133/95 06/19/19 20:34 79 133/95 06/19/19 20:00 97.5 79 20 133/95 (108) 95 06/19/19 20:00 3.0 99 06/19/19 19:41 95 Nasal Cannula 3.0 32 06/19/19 16:00 3.0 99 06/19/19 16:00 98.4 77 20 150/82 (104) 96 06/19/19 12:00 3.0 99 06/19/19 10:53 98.6 Intake and Output 06/19/19 06/20/19 19:00 07:00 Intake Total 1240 ml 600 ml Output Total 1400 ml Balance 1240 ml -800 ml Intake Oral 1240 ml 600 ml Output Urine Total 1400 ml # Voids 8 3 # Bowel Movements 1 1 Laboratory Tests 06/20/19 09:55: Digoxin Level < 0.3L Height (Feet): 5 Height (Inches): 10.00 Weight (Pounds): 429 General Appearance: mild distress EENT: other - BIPAP Respiratory/Chest: decreased breath sounds Abdomen: distended Objective no change Bebeto Yin MD Jun 20, 2019 10:48
[2019-06-20 12:00] VITALS: BP 119/69
--- NOTE | 2019-06-20 14:37 | Cardiac Electrophysiology PN ---
Assessment/Plan Assessment/Plan 1. Paroxysmal atrial fibrillation, converted to sinus rhythm with frequent PACs. Continue digoxin 0.125 mg daily, Coreg 25 mg b.i.d. and Eliquis 5 mg b.i.d. 2. Acute on chronic diastolic CHF. On Lasix 80 mg iv daily 3. Hypertension, on Avapro 300 mg daily, Coreg 25 bid, clonidine patch #3 , Lasix 80 iv daily and Hydralazine 100 bid 4. Obstructive sleep apnea. 5. COPD.On BIPAP 6. Morbid obesity. 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 No CP or SOB. On Lasix 80 iv daily. Placement pending Objective Last 24 Hour Vital Signs Date Time Temp Pulse Resp B/P (MAP) Pulse Ox O2 Delivery O2 Flow Rate FiO2 06/20/19 12:00 98.9 86 20 119/69 (86) 96 06/20/19 12:00 3.0 99 06/20/19 11:00 Nasal Cannula 3.0 06/20/19 10:02 139/84 06/20/19 10:01 83 06/20/19 10:01 83 139/84 06/20/19 10:00 139/84 06/20/19 09:58 83 139/84 (102) 06/20/19 09:00 Nasal Cannula 3.0 06/20/19 08:00 3.0 99 06/20/19 05:42 81 25 96 35 06/20/19 04:00 98.0 71 20 123/71 (88) 96 06/20/19 04:00 3.0 99 06/20/19 03:12 79 25 95 35 06/20/19 02:30 88 25 96 35 06/20/19 00:34 75 27 96 35 06/20/19 00:00 97.8 81 20 135/77 (96) 94 06/19/19 23:14 78 27 96 35 06/19/19 21:00 Nasal Cannula 3.0 06/19/19 20:34 133/95 06/19/19 20:34 79 133/95 06/19/19 20:00 97.5 79 20 133/95 (108) 95 06/19/19 20:00 3.0 99 06/19/19 19:41 95 Nasal Cannula 3.0 32 06/19/19 16:00 3.0 99 06/19/19 16:00 98.4 77 20 150/82 (104) 96 Intake and Output 06/19/19 06/20/19 19:00 07:00 Intake Total 1240 ml 600 ml Output Total 1400 ml Balance 1240 ml -800 ml Intake Oral 1240 ml 600 ml Output Urine Total 1400 ml # Voids 8 3 # Bowel Movements 1 1 Laboratory Tests Test 06/20/19 09:55 Digoxin Level < 0.3 NG/ML (0.5-2.0) L Objective HEAD AND NECK: Mild JVD. LUNGS: Coarse rhonchi. CARDIOVASCULAR: Regular S1 and S2 with no gallop or murmur. ABDOMEN: Obese. EXTREMITIES: 2+ pitting edema. Sandor Doll MD Jun 20, 2019 14:37
[2019-06-20 16:00] VITALS: BP 155/81
[2019-06-20] MEDS: HYDROcodone/Acetamin 10/325 tab ORAL PRN (17:26)
[2019-06-20 19:56] VITALS: BP 136/78
[2019-06-20] MEDS: Atorvastatin 20mg tab ORAL SCH (20:59)
[2019-06-21] VITALS: BP 130/78
[2019-06-21] MEDS: oxyCODONE 5mg IR tab ORAL PRN ×2 (03:40→17:51)
[2019-06-21 04:00] VITALS: BP 140/68
[2019-06-21 08:00] VITALS: BP 131/69
[2019-06-21] MEDS: Eliquis 5mg tablet ORAL SCH ×2 (08:14→17:18)
[2019-06-21] MEDS: HydrALAZINE 50mg tab ORAL SCH ×2 (08:15→21:13)
[2019-06-21] MEDS: Magnesium Oxide 400mg tab ORAL SCH ×3 (08:16→17:18)
[2019-06-21] MEDS: Carvedilol 25mg Tab ORAL SCH ×2 (08:16→21:13)
[2019-06-21] MEDS: Digoxin 0.125mg tab ORAL SCH (08:16)
[2019-06-21] MEDS: Docusate 100mg cap ORAL SCH ×3 (08:17→17:18)
[2019-06-21] MEDS: Irbesartan 150mg tablet ORAL SCH (08:17)
--- NOTE | 2019-06-21 08:57 | General Progress Note ---
Assessment/Plan Assessment/Plan: (1) Lumbar DDD (2) Lumbar Spondylosis (3) Morbid obesity Patient to be continued on oxycodone and [place]. D/w Dr. Stack and he concurred. Subjective Date patient seen: Jun 21, 2019 Time patient seen: 08:15 - am Allergies: Coded Allergies: RIVAROXABAN (Verified Allergy, Unknown, 04/05/19) Subjective Constitutional: Reports: weakness HEENT: Reports: no symptoms Cardiovascular: Reports: no symptoms Respiratory: Reports: shortness of breath Gastrointestinal/Abdominal: Reports: no symptoms Genitourinary: Reports: no symptoms Neurologic/Psychiatric: Reports: no symptoms Endocrine: Reports: no symptoms Hematologic/Lymphatic: Reports: no symptoms Subjective Patient showing no signs of pain or distress. Has been tolerating the pain on the [place] 2 doses and Oxycodone 2 doses in the last 24hrs. No new complaints at this time. Objective Last 24 Hour Vital Signs Date Time Temp Pulse Resp B/P (MAP) Pulse Ox O2 Delivery O2 Flow Rate FiO2 06/21/19 08:17 131/68 06/21/19 08:16 71 06/21/19 08:16 72 131/68 06/21/19 08:15 131/68 06/21/19 05:16 73 22 97 35 06/21/19 04:00 3.0 99 06/21/19 04:00 97.8 77 20 140/68 (92) 96 06/21/19 02:58 67 22 97 35 06/21/19 01:07 72 25 97 35 06/21/19 00:00 98.7 82 19 130/78 (95) 98 06/20/19 23:09 73 19 98 35 06/20/19 21:00 3.0 99 06/20/19 21:00 Nasal Cannula 3.0 06/20/19 20:59 78 136/78 06/20/19 20:58 136/78 06/20/19 19:56 98.0 78 20 136/78 (97) 100 06/20/19 19:21 74 20 94 35 06/20/19 19:20 94 Bi-Pap 35 06/20/19 17:56 98.8 06/20/19 16:00 98.8 76 22 155/81 (105) 100 06/20/19 16:00 3.0 99 06/20/19 12:00 98.9 86 20 119/69 (86) 96 06/20/19 12:00 3.0 99 06/20/19 11:00 Nasal Cannula 3.0 06/20/19 10:02 139/84 06/20/19 10:01 83 06/20/19 10:01 83 139/84 06/20/19 10:00 139/84 06/20/19 09:58 83 139/84 (102) 06/20/19 09:00 Nasal Cannula 3.0 Intake and Output 06/20/19 06/21/19 19:00 07:00 Intake Total 700 ml Output Total 1800 ml 1200 ml Balance -1100 ml -1200 ml Intake Oral 700 ml Output Urine Total 1800 ml 1200 ml # Voids 2 # Bowel Movements 3 1 Laboratory Tests 06/20/19 09:55: Digoxin Level < 0.3L Height (Feet): 5 Height (Inches): 10.00 Weight (Pounds): 429 Objective General Appearance: no apparent distress, alert EENT: PERRL/EOMI Neck: non-tender, normal alignment Cardiovascular: normal rate, regular rhythm Respiratory/Chest: decreased breath sounds Abdomen: non tender, soft Extremities: non-tender Edema: moderate edema Neurologic: alert, oriented x 3 Skin: warm/dry Osito Sultana Jun 21, 2019 08:57
--- NOTE | 2019-06-21 10:51 | Cardiac Electrophysiology PN ---
Assessment/Plan Assessment/Plan 1. Paroxysmal atrial fibrillation, converted to sinus rhythm with frequent PACs. Continue digoxin 0.125 mg daily, Coreg 25 mg b.i.d. and Eliquis 5 mg b.i.d. 2. Acute on chronic diastolic CHF. On Lasix 80 mg iv daily 3. Hypertension, on Avapro 300 mg daily, Coreg 25 bid, clonidine patch #3 , Lasix 80 iv daily and Hydralazine 100 bid 4. Obstructive sleep apnea. 5. COPD.On BIPAP 6. Morbid obesity. 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 Placement pending Objective Last 24 Hour Vital Signs Date Time Temp Pulse Resp B/P (MAP) Pulse Ox O2 Delivery O2 Flow Rate FiO2 06/21/19 09:38 97 Bi-Pap 35 06/21/19 09:00 Nasal Cannula 3.0 06/21/19 08:17 131/68 06/21/19 08:16 71 06/21/19 08:16 72 131/68 06/21/19 08:15 131/68 06/21/19 08:00 97.9 72 17 131/69 (89) 98 06/21/19 08:00 3.0 99 06/21/19 05:16 73 22 97 35 06/21/19 04:00 3.0 99 06/21/19 04:00 97.8 77 20 140/68 (92) 96 06/21/19 02:58 67 22 97 35 06/21/19 01:07 72 25 97 35 06/21/19 00:00 98.7 82 19 130/78 (95) 98 06/20/19 23:09 73 19 98 35 06/20/19 21:00 3.0 99 06/20/19 21:00 Nasal Cannula 3.0 06/20/19 20:59 78 136/78 06/20/19 20:58 136/78 06/20/19 19:56 98.0 78 20 136/78 (97) 100 06/20/19 19:21 74 20 94 35 06/20/19 19:20 94 Bi-Pap 35 06/20/19 17:56 98.8 06/20/19 16:00 98.8 76 22 155/81 (105) 100 06/20/19 16:00 3.0 99 06/20/19 12:00 98.9 86 20 119/69 (86) 96 06/20/19 12:00 3.0 99 06/20/19 11:00 Nasal Cannula 3.0 Intake and Output 06/20/19 06/21/19 19:00 07:00 Intake Total 700 ml Output Total 1800 ml 1200 ml Balance -1100 ml -1200 ml Intake Oral 700 ml Output Urine Total 1800 ml 1200 ml # Voids 2 # Bowel Movements 3 1 Objective HEAD AND NECK: Mild JVD. LUNGS: Coarse rhonchi. CARDIOVASCULAR: Regular S1 and S2 with no gallop or murmur. ABDOMEN: Obese. EXTREMITIES: 2+ pitting edema. Sandor Doll MD Jun 21, 2019 10:51
[2019-06-21 12:00] VITALS: BP 129/75
--- NOTE | 2019-06-21 12:33 | Nephrology Progress Note ---
Assessment/Plan Problem List: (1) Electrolyte imbalance (2) COPD (chronic obstructive pulmonary disease) (3) CO2 retention (4) CHF (congestive heart failure) (5) Obesity, morbid, BMI 50 or higher Assessment (1) Hypokalemia (2) CHF (congestive heart failure) (3) s/p Renal failure (4) Obesity, morbid, BMI 50 or higher (5) CO2 retention (6) COPD (chronic obstructive pulmonary disease) Obesity , NATASHA AT fib with FVR Congestive heart failure, likely diastolic dysfunction. EF 60% Recurrent NSVT. No syncope. Hypertension. Morbid obesity. COPD. Lipidemia. Plan Plan Back on Lasix optimize cardiac and pulm status Keep BP in check Monitor lytes Diamox PO as needed per orders per cardio and pulmonary Subjective ROS Limited/Unobtainable: No Constitutional: Reports: malaise Objective Objective Last 24 Hour Vital Signs Date Time Temp Pulse Resp B/P (MAP) Pulse Ox O2 Delivery O2 Flow Rate FiO2 06/21/19 09:38 97 Bi-Pap 35 06/21/19 09:00 Nasal Cannula 3.0 06/21/19 08:17 131/68 06/21/19 08:16 71 06/21/19 08:16 72 131/68 06/21/19 08:15 131/68 06/21/19 08:00 97.9 72 17 131/69 (89) 98 06/21/19 08:00 3.0 99 06/21/19 05:16 73 22 97 35 06/21/19 04:00 3.0 99 06/21/19 04:00 97.8 77 20 140/68 (92) 96 06/21/19 02:58 67 22 97 35 06/21/19 01:07 72 25 97 35 06/21/19 00:00 98.7 82 19 130/78 (95) 98 06/20/19 23:09 73 19 98 35 06/20/19 21:00 3.0 99 06/20/19 21:00 Nasal Cannula 3.0 06/20/19 20:59 78 136/78 06/20/19 20:58 136/78 06/20/19 19:56 98.0 78 20 136/78 (97) 100 06/20/19 19:21 74 20 94 35 06/20/19 19:20 94 Bi-Pap 35 06/20/19 17:56 98.8 06/20/19 16:00 98.8 76 22 155/81 (105) 100 06/20/19 16:00 3.0 99 Intake and Output 06/20/19 06/21/19 19:00 07:00 Intake Total 700 ml Output Total 1800 ml 1200 ml Balance -1100 ml -1200 ml Intake Oral 700 ml Output Urine Total 1800 ml 1200 ml # Voids 2 # Bowel Movements 3 1 Height (Feet): 5 Height (Inches): 10.00 Weight (Pounds): 429 General Appearance: no apparent distress EENT: other - BIPAP Cardiovascular: normal rate Respiratory/Chest: decreased breath sounds Abdomen: distended Objective no change Bebeto Yin MD Jun 21, 2019 12:33
[2019-06-21 16:00] VITALS: BP 150/86
[2019-06-21 20:00] VITALS: BP 143/78
[2019-06-21] MEDS: Atorvastatin 20mg tab ORAL SCH (21:13)
--- NOTE | 2019-06-21 21:33 | General Progress Note ---
Assessment/Plan Status: stable Assessment/Plan: S: I am feeling pain O: remains in mild- sob with slight out of bed activity. on BIPAP. complains of pain in all joints . ambulates using walker out of bed Physical ExamVital Signs General Appearance: alert, GCS 15, obese, Chronically Ill Head: normocephalicEyes: bilateral eye PERRL ENT: TMs + canals normal, uvula midlineNeck: full range of motion Respiratory: lungs clear, decreased breath soundsCardiovascular #1: edema - 1 + Edema Gastrointestinal: normal inspection, normal bowel sounds, non tender Musculoskeletal: morbid obesity, minimal non piting edema in LE. Neurologic: alert, motor strength/tone normal, rug clipper III-XII nml as tested, oriented [id number]: normal inspection Skin: other - Bilateral scaly rash to the lower extremities Meds: reviewed and reconciled in the chart Assessment/Plan: 1. 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 Morbid obesity 4. HTN 5. Multiple joint OA 6. Afib 7. NATASHA 8. ARF : improved 10 . GI-DVT prophylaxia 11. Moderate- PAH 12. Hypokalemia Plan: High risk for Re- admission in future SNIF placement will decrease the likely wallace of readmission Pulmonary, Cardiology and Nephrology notes reviewed Notes from PT reviewed PRN pain medication / D/w RN at bed side Disposition : Will followup with PT recommendation , SNIF or to patient's his own plan of care Subjective Allergies: Coded Allergies: RIVAROXABAN (Verified Allergy, Unknown, 04/05/19) Objective Last 24 Hour Vital Signs Date Time Temp Pulse Resp B/P (MAP) Pulse Ox O2 Delivery O2 Flow Rate FiO2 06/21/19 21:13 143/78 06/21/19 21:13 79 143/78 06/21/19 20:00 97.6 79 22 143/78 (99) 97 06/21/19 19:31 94 Bi-Pap 35 06/21/19 19:31 78 25 94 35 06/21/19 16:00 3.0 99 06/21/19 16:00 99.2 80 19 150/86 (107) 94 06/21/19 12:00 3.0 99 06/21/19 12:00 98.6 69 19 129/75 (93) 99 06/21/19 09:38 97 Bi-Pap 35 06/21/19 09:00 Nasal Cannula 3.0 06/21/19 08:17 131/68 06/21/19 08:16 71 06/21/19 08:16 72 131/68 06/21/19 08:15 131/68 06/21/19 08:00 97.9 72 17 131/69 (89) 98 06/21/19 08:00 3.0 99 06/21/19 05:16 73 22 97 35 06/21/19 04:00 3.0 99 06/21/19 04:00 97.8 77 20 140/68 (92) 96 06/21/19 02:58 67 22 97 35 06/21/19 01:07 72 25 97 35 06/21/19 00:00 98.7 82 19 130/78 (95) 98 06/20/19 23:09 73 19 98 35 Intake and Output 06/20/19 06/21/19 19:00 07:00 Intake Total 700 ml Output Total 1800 ml 1200 ml Balance -1100 ml -1200 ml Intake Oral 700 ml Output Urine Total 1800 ml 1200 ml # Voids 2 # Bowel Movements 3 1 Height (Feet): 5 Height (Inches): 10.00 Weight (Pounds): 429 Desirae Haro MD Jun 21, 2019 21:33
[2019-06-22 00:05] VITALS: BP 141/73
[2019-06-22] MEDS: oxyCODONE 5mg IR tab ORAL PRN ×4 (03:48→21:15)
[2019-06-22 04:00] VITALS: BP 131/71
[2019-06-22 08:00] VITALS: BP 150/94
[2019-06-22] MEDS: HydrALAZINE 50mg tab ORAL SCH ×2 (08:37→21:15)
[2019-06-22] MEDS: Magnesium Oxide 400mg tab ORAL SCH ×3 (08:37→17:35)
[2019-06-22] MEDS: Eliquis 5mg tablet ORAL SCH ×2 (08:37→17:35)
[2019-06-22] MEDS: Irbesartan 150mg tablet ORAL SCH (08:38)
[2019-06-22] MEDS: Docusate 100mg cap ORAL SCH ×3 (08:38→17:35)
[2019-06-22] MEDS: Carvedilol 25mg Tab ORAL SCH ×2 (08:38→21:14)
[2019-06-22] MEDS: Digoxin 0.125mg tab ORAL SCH (08:38)
--- NOTE | 2019-06-22 08:53 | General Progress Note ---
Assessment/Plan Assessment/Plan: (1) Lumbar DDD (2) Lumbar Spondylosis (3) Morbid obesity Patient to be continued on oxycodone and [place]. D/w Dr. Stack and he concurred. Subjective Date patient seen: Jun 22, 2019 Time patient seen: 08:00 - am Allergies: Coded Allergies: RIVAROXABAN (Verified Allergy, Unknown, 04/05/19) Subjective Constitutional: Reports: weakness HEENT: Reports: no symptoms Cardiovascular: Reports: no symptoms Respiratory: Reports: shortness of breath Gastrointestinal/Abdominal: Reports: no symptoms Genitourinary: Reports: no symptoms Neurologic/Psychiatric: Reports: no symptoms Endocrine: Reports: no symptoms Hematologic/Lymphatic: Reports: no symptoms Subjective Patient is reporting pain which has been at a moderate level tolerated on the Oxycodone and [place]. He has no new complaints waiting for placement. Objective Last 24 Hour Vital Signs Date Time Temp Pulse Resp B/P (MAP) Pulse Ox O2 Delivery O2 Flow Rate FiO2 06/22/19 08:38 150/94 06/22/19 08:38 76 06/22/19 08:38 76 150/94 06/22/19 08:37 150/94 06/22/19 08:00 3.0 99 06/22/19 08:00 98.4 76 20 150/94 (112) 97 06/22/19 05:12 73 21 95 35 06/22/19 04:03 3.0 99 06/22/19 04:00 97.5 85 21 131/71 (91) 97 06/22/19 02:47 71 17 96 35 06/22/19 01:38 77 18 95 35 06/22/19 00:05 98.9 78 20 141/73 (95) 97 06/21/19 21:13 143/78 06/21/19 21:13 79 143/78 06/21/19 21:10 74 24 96 35 06/21/19 21:00 3.0 99 06/21/19 21:00 Nasal Cannula 3.0 06/21/19 20:00 97.6 79 22 143/78 (99) 97 06/21/19 19:31 94 Bi-Pap 35 06/21/19 19:31 78 25 94 35 06/21/19 16:00 3.0 99 06/21/19 16:00 99.2 80 19 150/86 (107) 94 06/21/19 12:00 3.0 99 06/21/19 12:00 98.6 69 19 129/75 (93) 99 06/21/19 09:38 97 Bi-Pap 35 06/21/19 09:00 Nasal Cannula 3.0 Intake and Output 06/21/19 06/22/19 19:00 07:00 Intake Total 600 ml Output Total 1600 ml Balance -1000 ml Intake Oral 600 ml Output Urine Total 1600 ml # Voids 3 # Bowel Movements 1 1 Height (Feet): 5 Height (Inches): 10.00 Weight (Pounds): 428 Objective General Appearance: no apparent distress, alert EENT: PERRL/EOMI Neck: non-tender, normal alignment Cardiovascular: normal rate, regular rhythm Respiratory/Chest: decreased breath sounds Abdomen: non tender, soft Extremities: non-tender Edema: moderate edema Neurologic: alert, oriented x 3 Skin: warm/dry Osito Sultana Jun 22, 2019 08:53
[2019-06-22] MEDS ORDERED: HYDROcodone/Acetamin 10/325 tab ORAL PRN (09:00)
[2019-06-22 12:00] VITALS: BP 155/87
--- NOTE | 2019-06-22 13:02 | Cardiac Electrophysiology PN ---
Assessment/Plan Assessment/Plan 1. Paroxysmal atrial fibrillation, converted to sinus rhythm with frequent PACs. Continue digoxin 0.125 mg daily, Coreg 25 mg b.i.d. and Eliquis 5 mg b.i.d. 2. Acute on chronic diastolic CHF. On Lasix 80 mg iv daily 3. Hypertension. Continue Avapro 300 mg daily, Coreg 25 bid, clonidine patch #3 weekly , Lasix 80 iv daily and Hydralazine 100 bid 4. Obstructive sleep apnea. 5. COPD.On BIPAP 6. Morbid obesity. Needs bariatric evaluation KIAN RN Subjective Subjective On BIPAP and Lasix 80 iv daily. No events. DC planning today Objective Last 24 Hour Vital Signs Date Time Temp Pulse Resp B/P (MAP) Pulse Ox O2 Delivery O2 Flow Rate FiO2 06/22/19 12:50 155/87 06/22/19 12:00 98.2 92 21 155/87 (109) 98 06/22/19 12:00 3.0 99 06/22/19 09:00 Nasal Cannula 3.0 06/22/19 08:38 150/94 06/22/19 08:38 76 06/22/19 08:38 76 150/94 06/22/19 08:37 150/94 06/22/19 08:00 3.0 99 06/22/19 08:00 98.4 76 20 150/94 (112) 97 06/22/19 05:12 73 21 95 35 06/22/19 04:03 3.0 99 06/22/19 04:00 97.5 85 21 131/71 (91) 97 06/22/19 02:47 71 17 96 35 06/22/19 01:38 77 18 95 35 06/22/19 00:05 98.9 78 20 141/73 (95) 97 06/21/19 21:13 143/78 06/21/19 21:13 79 143/78 06/21/19 21:10 74 24 96 35 06/21/19 21:00 3.0 99 06/21/19 21:00 Nasal Cannula 3.0 06/21/19 20:00 97.6 79 22 143/78 (99) 97 06/21/19 19:31 94 Bi-Pap 35 06/21/19 19:31 78 25 94 35 06/21/19 16:00 3.0 99 06/21/19 16:00 99.2 80 19 150/86 (107) 94 Intake and Output 06/21/19 06/22/19 19:00 07:00 Intake Total 600 ml Output Total 1600 ml Balance -1000 ml Intake Oral 600 ml Output Urine Total 1600 ml # Voids 3 # Bowel Movements 1 1 Objective HEAD AND NECK: Mild JVD. LUNGS: Coarse rhonchi. CARDIOVASCULAR: Regular S1 and S2 with no gallop or murmur. ABDOMEN: Obese. EXTREMITIES: 2+ pitting edema. Sandor Doll MD Jun 22, 2019 13:02
--- NOTE | 2019-06-22 14:53 | Nephrology Progress Note ---
Assessment/Plan Problem List: (1) Electrolyte imbalance (2) COPD (chronic obstructive pulmonary disease) (3) CO2 retention (4) CHF (congestive heart failure) (5) Obesity, morbid, BMI 50 or higher Assessment (1) Hypokalemia (2) CHF (congestive heart failure) (3) s/p Renal failure (4) Obesity, morbid, BMI 50 or higher (5) CO2 retention (6) COPD (chronic obstructive pulmonary disease) Obesity , NATASHA AT fib with FVR Congestive heart failure, likely diastolic dysfunction. EF 60% Recurrent NSVT. No syncope. Hypertension. Morbid obesity. COPD. Lipidemia. Plan Plan Back on Lasix optimize cardiac and pulm status Keep BP in check Monitor lytes Diamox PO as needed per orders per cardio and pulmonary Subjective ROS Limited/Unobtainable: No Constitutional: Reports: malaise, weakness Objective Objective Last 24 Hour Vital Signs Date Time Temp Pulse Resp B/P (MAP) Pulse Ox O2 Delivery O2 Flow Rate FiO2 06/22/19 12:50 155/87 06/22/19 12:00 98.2 92 21 155/87 (109) 98 06/22/19 12:00 3.0 99 06/22/19 09:00 Nasal Cannula 3.0 06/22/19 08:38 150/94 06/22/19 08:38 76 06/22/19 08:38 76 150/94 06/22/19 08:37 150/94 06/22/19 08:34 95 Nasal Cannula 3.0 32 06/22/19 08:00 3.0 99 06/22/19 08:00 98.4 76 20 150/94 (112) 97 06/22/19 05:12 73 21 95 35 06/22/19 04:03 3.0 99 06/22/19 04:00 97.5 85 21 131/71 (91) 97 06/22/19 02:47 71 17 96 35 06/22/19 01:38 77 18 95 35 06/22/19 00:05 98.9 78 20 141/73 (95) 97 06/21/19 21:13 143/78 06/21/19 21:13 79 143/78 06/21/19 21:10 74 24 96 35 06/21/19 21:00 3.0 99 06/21/19 21:00 Nasal Cannula 3.0 06/21/19 20:00 97.6 79 22 143/78 (99) 97 06/21/19 19:31 94 Bi-Pap 35 06/21/19 19:31 78 25 94 35 06/21/19 16:00 3.0 99 06/21/19 16:00 99.2 80 19 150/86 (107) 94 Intake and Output 06/21/19 06/22/19 19:00 07:00 Intake Total 600 ml Output Total 1600 ml Balance -1000 ml Intake Oral 600 ml Output Urine Total 1600 ml # Voids 3 # Bowel Movements 1 1 Height (Feet): 5 Height (Inches): 10.00 Weight (Pounds): 428 General Appearance: no apparent distress Cardiovascular: normal rate Respiratory/Chest: decreased breath sounds Abdomen: distended Objective no change Bebeto Yin MD Jun 22, 2019 14:53
[2019-06-22] MEDS ORDERED: CATAPRES-TTS 31 EACH TDERMAL (15:15)
[2019-06-22 16:00] VITALS: BP 143/72
--- NOTE | 2019-06-22 18:06 | General Progress Note ---
Assessment/Plan Assessment/Plan: S: I am feeling pain O: remains in mild- sob with slight out of bed activity. on BIPAP. . ambulates using walker out of bed. Physical ExamVital Signs General Appearance: alert, GCS 15, obese, Chronically Ill Head: normocephalicEyes: bilateral eye PERRL ENT: TMs + canals normal, uvula midlineNeck: full range of motion Respiratory: lungs clear, decreased breath soundsCardiovascular #1: edema - 1 + Edema Gastrointestinal: normal inspection, normal bowel sounds, non tender Musculoskeletal: morbid obesity, minimal non piting edema in LE. Neurologic: alert, motor strength/tone normal, vault clerk III-XII nml as tested, oriented [id number]: normal inspection Skin: other - Bilateral scaly rash to the lower extremities Meds: reviewed and reconciled in the chart Assessment/Plan: 1. 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 Morbid obesity 4. HTN 5. Multiple joint OA 6. Afib 7. NATASHA 8. ARF : improved 10 . GI-DVT prophylaxia 11. Moderate- PAH 12. Hypokalemia Plan: High risk for Re- admission in future SNIF placement will decrease the likely wallace of readmission Pulmonary, Cardiology and Nephrology notes reviewed Notes from PT reviewed PRN pain medication / D/w RN at bed side Disposition : Will followup with PT recommendation , safe for home with home health. D/w pt. in agreement.Medication reconciliation completed Subjective Allergies: Coded Allergies: RIVAROXABAN (Verified Allergy, Unknown, 04/05/19) Objective Last 24 Hour Vital Signs Date Time Temp Pulse Resp B/P (MAP) Pulse Ox O2 Delivery O2 Flow Rate FiO2 06/22/19 16:00 98.0 70 19 143/72 (95) 96 06/22/19 16:00 3.0 99 06/22/19 12:50 155/87 06/22/19 12:00 98.2 92 21 155/87 (109) 98 06/22/19 12:00 3.0 99 06/22/19 09:00 Nasal Cannula 3.0 06/22/19 08:38 150/94 06/22/19 08:38 76 06/22/19 08:38 76 150/94 06/22/19 08:37 150/94 2/19/20 08:34 95 Nasal Cannula 3.0 32 06/22/19 08:00 3.0 99 06/22/19 08:00 98.4 76 20 150/94 (112) 97 06/22/19 05:12 73 21 95 35 06/22/19 04:03 3.0 99 06/22/19 04:00 97.5 85 21 131/71 (91) 97 06/22/19 02:47 71 17 96 35 06/22/19 01:38 77 18 95 35 06/22/19 00:05 98.9 78 20 141/73 (95) 97 06/21/19 21:13 143/78 06/21/19 21:13 79 143/78 06/21/19 21:10 74 24 96 35 06/21/19 21:00 3.0 99 06/21/19 21:00 Nasal Cannula 3.0 06/21/19 20:00 97.6 79 22 143/78 (99) 97 06/21/19 19:31 94 Bi-Pap 35 06/21/19 19:31 78 25 94 35 Intake and Output 06/21/19 06/22/19 19:00 07:00 Intake Total 600 ml Output Total 1600 ml Balance -1000 ml Intake Oral 600 ml Output Urine Total 1600 ml # Voids 3 # Bowel Movements 1 1 Height (Feet): 5 Height (Inches): 10.00 Weight (Pounds): 428 Desirae Haro MD Jun 22, 2019 18:06
[2019-06-22 20:00] VITALS: BP 164/85
[2019-06-22] MEDS: Atorvastatin 20mg tab ORAL SCH (21:15)
[2019-06-23] VITALS: BP 154/66
[2019-06-23] MEDS: oxyCODONE 5mg IR tab ORAL PRN ×3 (03:33→12:42)
[2019-06-23 04:00] VITALS: BP 126/69
[2019-06-23 08:00] VITALS: BP 141/77
--- NOTE | 2019-06-23 08:53 | Nephrology Progress Note ---
Assessment/Plan Problem List: (1) Electrolyte imbalance (2) COPD (chronic obstructive pulmonary disease) (3) CO2 retention (4) CHF (congestive heart failure) (5) Obesity, morbid, BMI 50 or higher Assessment (1) Hypokalemia (2) CHF (congestive heart failure) (3) s/p Renal failure (4) Obesity, morbid, BMI 50 or higher (5) CO2 retention (6) COPD (chronic obstructive pulmonary disease) Obesity , NATASHA AT fib with FVR Congestive heart failure, likely diastolic dysfunction. EF 60% Recurrent NSVT. No syncope. Hypertension. Morbid obesity. COPD. Lipidemia. Plan no labs today Back on Lasix optimize cardiac and pulm status Keep BP in check Monitor lytes Diamox PO as needed per orders per cardio and pulmonary Subjective ROS Limited/Unobtainable: No Constitutional: Reports: malaise, weakness Objective Objective Last 24 Hour Vital Signs Date Time Temp Pulse Resp B/P (MAP) Pulse Ox O2 Delivery O2 Flow Rate FiO2 06/23/19 08:00 98.0 66 20 141/77 (98) 98 06/23/19 08:00 3.0 99 06/23/19 07:03 79 18 96 35 06/23/19 07:03 96 Bi-Pap 35 06/23/19 04:00 3.0 99 06/23/19 04:00 98.0 78 20 126/69 (88) 98 06/23/19 02:55 75 19 97 35 06/23/19 00:21 77 21 95 35 06/23/19 00:00 98.0 56 19 154/66 (95) 98 06/23/19 00:00 3.0 99 06/22/19 22:45 80 19 93 35 06/22/19 21:15 164/85 06/22/19 21:14 78 164/85 06/22/19 21:00 Nasal Cannula 3.0 06/22/19 20:00 97.9 78 24 164/85 (111) 97 06/22/19 20:00 3.0 99 06/22/19 19:41 95 Nasal Cannula 3.0 32 06/22/19 16:00 98.0 70 19 143/72 (95) 96 06/22/19 16:00 3.0 99 06/22/19 12:50 155/87 06/22/19 12:00 98.2 92 21 155/87 (109) 98 06/22/19 12:00 3.0 99 06/22/19 09:00 Nasal Cannula 3.0 Intake and Output 06/22/19 06/23/19 19:00 07:00 Intake Total 1040 ml Output Total 2400 ml 2300 ml Balance -1360 ml -2300 ml Intake Oral 1040 ml Output Urine Total 2400 ml 2300 ml Height (Feet): 5 Height (Inches): 10.00 Weight (Pounds): 428 General Appearance: no apparent distress Objective no change Bebeto Yin MD Jun 23, 2019 08:53
[2019-06-23] MEDS: Carvedilol 25mg Tab ORAL SCH (08:57)
[2019-06-23] MEDS: HydrALAZINE 50mg tab ORAL SCH (08:57)
[2019-06-23] MEDS: Digoxin 0.125mg tab ORAL SCH (08:57)
[2019-06-23] MEDS: Magnesium Oxide 400mg tab ORAL SCH ×2 (08:58→12:41)
[2019-06-23] MEDS: Docusate 100mg cap ORAL SCH ×2 (08:58→12:41)
[2019-06-23] MEDS: Irbesartan 150mg tablet ORAL SCH (08:58)
[2019-06-23] MEDS: Eliquis 5mg tablet ORAL SCH (08:58)
--- NOTE | 2019-06-23 08:59 | General Progress Note ---
Assessment/Plan Assessment/Plan: (1) Lumbar DDD (2) Lumbar Spondylosis (3) Morbid obesity Patient to be continued on oxycodone and [place]. D/w Dr. Stack and he concurred. Subjective Date patient seen: Jun 23, 2019 Time patient seen: 08:00 - am Allergies: Coded Allergies: RIVAROXABAN (Verified Allergy, Unknown, 04/05/19) Subjective Constitutional: Reports: weakness HEENT: Reports: no symptoms Cardiovascular: Reports: no symptoms Respiratory: Reports: shortness of breath Gastrointestinal/Abdominal: Reports: no symptoms Genitourinary: Reports: no symptoms Neurologic/Psychiatric: Reports: no symptoms Endocrine: Reports: no symptoms Hematologic/Lymphatic: Reports: no symptoms Subjective Patient has no signs of pain or distress. The pain has been tolerated on the [place] and Oxycodone as needed. He continues to wear Bipap and waiting for placement. Objective Last 24 Hour Vital Signs Date Time Temp Pulse Resp B/P (MAP) Pulse Ox O2 Delivery O2 Flow Rate FiO2 06/23/19 08:00 98.0 66 20 141/77 (98) 98 06/23/19 08:00 3.0 99 06/23/19 07:03 79 18 96 35 06/23/19 07:03 96 Bi-Pap 35 06/23/19 04:00 3.0 99 06/23/19 04:00 98.0 78 20 126/69 (88) 98 06/23/19 02:55 75 19 97 35 06/23/19 00:21 77 21 95 35 06/23/19 00:00 98.0 56 19 154/66 (95) 98 06/23/19 00:00 3.0 99 06/22/19 22:45 80 19 93 35 06/22/19 21:15 164/85 06/22/19 21:14 78 164/85 06/22/19 21:00 Nasal Cannula 3.0 06/22/19 20:00 97.9 78 24 164/85 (111) 97 06/22/19 20:00 3.0 99 06/22/19 19:41 95 Nasal Cannula 3.0 32 06/22/19 16:00 98.0 70 19 143/72 (95) 96 06/22/19 16:00 3.0 99 06/22/19 12:50 155/87 06/22/19 12:00 98.2 92 21 155/87 (109) 98 06/22/19 12:00 3.0 99 06/22/19 09:00 Nasal Cannula 3.0 Intake and Output 06/22/19 06/23/19 19:00 07:00 Intake Total 1040 ml Output Total 2400 ml 2300 ml Balance -1360 ml -2300 ml Intake Oral 1040 ml Output Urine Total 2400 ml 2300 ml Height (Feet): 5 Height (Inches): 10.00 Weight (Pounds): 428 Objective General Appearance: no apparent distress, alert EENT: PERRL/EOMI Neck: non-tender, normal alignment Cardiovascular: normal rate, regular rhythm Respiratory/Chest: decreased breath sounds Abdomen: non tender, soft Extremities: non-tender Edema: moderate edema Neurologic: alert, oriented x 3 Skin: warm/dry Osito Sultana Jun 23, 2019 08:59
[2019-06-23 12:00] VITALS: BP 143/70
--- NOTE | 2019-06-26 08:51 | Discharge Summary ---
Discharge Summary Discharge Summary _ DATE OF ADMISSION: 06/01/2019 DATE OF DISCHARGE: 06/23/2019 DISCHARGED BY: Dr. Haro REASON FOR ADMISSION: 48 years old male with past medical history of COPD, hypertension, osteoarthritis, atrial fibrillation, obstructive sleep apnea, morbid obesity, presented with increased swelling of the lower extremity Patient denied fever and chills. No nausea, vomiting or diarrhea. No dysuria. Patient at supplemental oxygen at home. Vital signs reveal significantly elevated blood pressure 188/140. Patient was tachycardic . Pulse oximetry on 4 L oxygen via nasal cannula was 94%. Laboratory work-up revealed no leukocytosis ,hemoglobin 12.9, hematocrit 39.4. Potassium 5.6. Stable BUN and creatinine. Glucose 106. Troponin 0.039. pro BNP 557. EKG revealed sinus rhythm with occasional PAC. Stable LFT. Urinalysis revealed no evidence of urinary tract infection. Chest x-ray demonstrated mild interstitial congestion . Patient received IV Lasix, nitroglycerin and morphine , placed on bus monitor . Patient diuresed well after Lasix and subsequently admitted for further management. CONSULTANTS: sheet cutter Dr. Ny pulmonary Dr. Rich cutting machine operator Dr. Yin pain specialist HOSPITAL COURSE: Patient admitted initially to telemetry floor. Patient was diuresed as per sheet cutter recommendation with close monitoring of volumes and cardiorenal parameters. Patient demonstrated episodes of paroxysmal atrial fibrillation , spontaneously converted to sinus rhythm with frequent PACs. Coreg and digoxin continued for rate control. Patient started on Eliquis for antiembolic stroke prophylaxis. Blood pressure was managed with beta-vimal,,, clonidine patch Avapro Lasix and hydralazine Blood pressure stabilized. Last Echo, done in April 2019, was a technically difficult study due to patient's body habitus , but revealed normal left ventricular chamber size, systolic function to the extent visualized. BiPAP was provided at nighttime. Supplemental oxygen provided and titrated to keep oximetry above 92% Nebulizing treatment with bronchodilator provided. Judge suggested bariatric evaluation if possible as outpatient. Patient was instructed on salt restriction. Renal parameters and electrolytes were closely monitored, electrolytes corrected as needed. Initial hyperkalemia was corrected. Pain management was addressed as per pain specialist recommendation. DVT and GI prophylaxis provided. Supportive care provided. Patient was working with physical therapist. Per physical therapist recommendations, patient was safe for discharge home with home health services. Patient clinically stabilized and subsequently was discharged home via ambulance. FINAL DIAGNOSES: Acute on chronic diastolic CHF Chronic hypoxemic hypercapnic respiratory failure/hypoventilatory syndrome Paroxysmal atrial fibrillation with rapid ventricular response converted to sinus rhythm with frequent PAC Edema -improved Hypertension Obstructive sleep apnea Recurrent nonsustained ventricular tachycardia Possible COPD Morbid obesity with BMI 50 or higher Electrolyte imbalance Lumbar DDD Lumbar spondylosis Multiple joint osteoarthritis DISCHARGE MEDICATIONS: See Medication Reconciliation list. DISCHARGE INSTRUCTIONS: Patient was discharged home with home health services I have been assigned to dictate discharge summary for this account. I was not involved in the patient's management. Liat Griffin NP Jun 26, 2019 08:51
== END 2019-06-23 14:15 | disposition home or self-care (01) | DRG 194 ==
LOC: EDBD 22:13 → EDUNIT# 22:13 → EMR 22:26 → 2E 06-01 00:48 → EDBEDREQ 06-01 02:37 → 4E 06-04 00:58
DX: I11.0 Hypertensive heart disease with heart failure (principal); J44.9 Chronic obstructive pulmonary disease, unspecified; I50.33 Acute on chronic diastolic (congestive) heart failure; I48.0 Paroxysmal atrial fibrillation; G47.33 Obstructive sleep apnea (adult) (pediatric); E87.6 Hypokalemia; E66.01 Morbid (severe) obesity due to excess calories; Z88.8 Allergy status to other drugs, medicaments and biological substances; M15.9 Polyosteoarthritis, unspecified; Z79.82 Long term (current) use of aspirin; Z68.43 Body mass index [BMI] 50.0-59.9, adult; M51.36 Other intervertebral disc degeneration, lumbar region; M47.896 Other spondylosis, lumbar region; J96.10 Chronic respiratory failure, unspecified whether with hypoxia or hypercapnia; E87.8 Other disorders of electrolyte and fluid balance, not elsewhere classified; I47.1 Supraventricular tachycardia
CPT/HCPCS: 36415; 71045; 80048; 80053; 80061; 80076; 80162; 81003; 82550; 82607; 82728; 82746; 82977; 83540; 83550; 83735; 83880; 84100; 84443; 84484; 84550; 85025; 85610; 85730; 86140; 87081; 93005; 94640; 94660; 96374; 96375; 99285; J7620; J8499